=== PATIENT | male | born 1955 | race African-American/Black ===

== ENCOUNTER 2017-08-26 10:33 | Inpatient (IN) | payer MEDICARE, OTHER ==
--- NOTE | 2017-08-26 12:20 | XR ---
EXAMINATION TYPE: XR foot complete LT , 3 VIEWS DATE OF EXAM ORDERED: 08/26/2017 HISTORY: Pain. COMPARISON: None. FINDINGS: No fracture, dislocation or other acute osseous lesion is seen. There is a tiny plantar ca lcaneal spur. There is mild soft tissue swelling over the dorsum of the wrist. There are very mild de generative changes in the left first MTP joint. IMPRESSION: NO ACUTE OSSEOUS LESION.
[2017-08-26] MEDS ORDERED: SODIUM CHLORIDE 0.9% 500 ML IV ONE (12:44)
[2017-08-26 13:26] LABS: Basophils # (A) 0.1 k/uL (0-0.2); Basophils % (A) 1 %; Eosinophils # (A) 1.9 k/uL (0-0.7); Eosinophils % (A) 22 %; HCT 40.6 % (39.0-53.0); HGB 12.7 gm/dL (13.0-17.5); Hypochromasia Slight; Lymphocytes # (A) 1.4 k/uL (1.0-4.8); Lymphocytes % (A) 17 %; MCH 28.1 pg (25.0-35.0); MCHC 31.3 g/dL (31.0-37.0); Mean Platelet Volume 8.5; Monocytes # (A) 0.3 k/uL (0-1.0); Monocytes % (A) 3 %; Neutrophils # (A) 4.6 k/uL (1.3-7.7); Neutrophils % (A) 54 %; Platelet Count 323 k/uL (150-450); RBC 4.51 m/uL (4.30-5.90); WBC 8.5 k/uL (3.8-10.6)
--- NOTE | 2017-08-26 13:26 | ED ---
Lower Extremity Injury HPI - General Chief Complaint: Extremity Injury, Lower Stated Complaint: LEFT FOOT INJURY FROM FALL Time Seen by Provider: 08/26/17 12:10 Source: patient Mode of arrival: ambulatory Limitations: physical limitation - History of Present Illness Initial Comments: 62-year-old male patient presents to the emergency department today for complaints of left foot pain and swelling. Patient states that he tripped on a coffee table approximately a 1-1/2 weeks ago. States he's been having pain mainly in the area of the left great toe. He states that the pain is not improved. He denies any numbness or tingling to the foot. Denies any fever or chills with this. He he denies falling or hitting his head. Denies any other injuries. Patient denies any recent rash, shortness breath, chest pain, abdominal pain, nausea, vomiting, diarrhea, constipation, back pain, numbness, tingling, dizziness, weakness, hematuria, dysuria, urinary urgency, urinary frequency, headache, visual changes, or any other complaints. - Related Data Home Medications Medication Instructions Recorded Confirmed Aspirin 81 mg PO DAILY 03/26/15 03/30/15 Atorvastatin [Lipitor] 10 mg PO HS 03/26/15 03/30/15 Carvedilol 25 mg PO BID 03/26/15 03/30/15 Clopidogrel Bisulfate [Clopidogrel] 75 mg PO DAILY 03/26/15 03/30/15 FLUoxetine HCL [PROzac] 20 mg PO DAILY 03/26/15 03/30/15 Levothyroxine Sodium [Synthroid] 25 mcg PO DAILY 03/26/15 03/30/15 Lisinopril [Zestril] 10 mg PO DAILY 03/26/15 03/30/15 Allergies Allergy/AdvReac Type Severity Reaction Status Date / Time No Known Allergies Allergy Verified 08/26/17 13:05 Review of Systems ROS Statement: Those systems with pertinent positive or pertinent negative responses have been documented in the HPI. ROS Other: All systems not noted in ROS Statement are negative. Past Medical History Past Medical History: COPD, Myocardial Infarction (OR), Thyroid Disorder Last Myocardial Infarction Date:: 09/2011 History of Any Multi-Drug Resistant Organisms: None Reported Past Surgical History: Heart Catheterization With Stent Past Anesthesia/Blood Transfusion Reactions: No Reported Reaction Date of Last Stent Placement:: 09/2011 Past Psychological History: No Psychological Hx Reported Smoking Status: Current every day smoker Past Alcohol Use History: Daily Past Drug Use History: Marijuana - Past Family History Mother Family Medical History: Deep Vein Thrombosis (DVT) General Exam Limitations: physical limitation General appearance: alert, in no apparent distress, other (Social well-developed , well-nourished adult male patient in no acute distress. Vital signs upon presentation were temperature 98.0F, pulse 84, respirations 16, blood pressure 111/71, pulse ox 99% on room air.) Eye exam: Present: normal appearance, PERRL, EOMI. Absent: scleral icterus, conjunctival injection, periorbital swelling ENT exam: Present: normal exam, normal oropharynx, mucous membranes moist Respiratory exam: Present: normal lung sounds bilaterally. Absent: respiratory distress, wheezes, rales, rhonchi, stridor Cardiovascular Exam: Present: tachycardia, irregular rhythm, normal heart sounds. Absent: regular rate, normal rhythm, systolic murmur, diastolic murmur , rubs, gallop, clicks GI/Abdominal exam: Present: soft, normal bowel sounds. Absent: distended, tenderness, guarding, rebound, rigid Extremities exam: Present: full ROM, tenderness (Tenderness over the left great toe), normal capillary refill, other (Swelling over the dorsum of the left foot , there is a wound noted to the dorsal aspect of the left great toe, the area between the toes is moist and appears to be ulcerated as well. There is an odor coming from the wound. There is also dried ulcer to the tip of the left fifth toe.). Absent: normal inspection, pedal edema, joint swelling, calf tenderness Neurological exam: Present: alert, oriented X3, CN II-XII intact Psychiatric exam: Present: normal affect, normal mood Skin exam: Present: warm, dry, intact, normal color. Absent: rash Course Vital Signs 08/26/17 08/26/17 08/26/17 11:18 13:25 14:06 Temperature 98 F 97.0 F L Pulse Rate 84 118 H Pulse Rate [ 140 H Chief Console Operator ] Respiratory 16 16 Rate Blood Pressure 111/71 151/66 O2 Sat by Pulse 99 97 Oximetry 08/26/17 08/26/17 14:48 15:05 Temperature Pulse Rate 144 H 128 H Pulse Rate [ Chief Console Operator ] Respiratory 18 18 Rate Blood Pressure 119/77 107/81 O2 Sat by Pulse 100 98 Oximetry Medical Decision Making - Medical Decision Making 62-year-old male patient presents to the emergency department today for evaluation of left foot injury. Physical examination did reveal some chronic wounds to the left great toe and between the first and second digits on the left foot. On auscultation of the heart did reveal a fast irregular heartbeat. EKG was obtained and did reveal no onset atrial fibrillation with a ventricular rate of 153. Patient denies ever having history of this however states he did have an irregular heartbeat since he was a child. He has not any treatment for this. He'll be admitted to the hospital for further evaluation of the wounds as well as the H or fibrillation. Started on Cardizem and heparin. He will be started on Zosyn and Vanco for the wounds. Accepting physician is Leticia. - Lab Data Result diagrams: 08/26/17 13:12 08/26/17 13:12 Lab Results 08/26/17 08/26/17 08/26/17 Range/Units 13:12 13:12 13:12 WBC 8.5 (3.8-10.6) k/uL RBC 4.51 (4.30-5.90) m/uL Hgb 12.7 L (13.0-17.5) gm/dL Hct 40.6 (39.0-53.0) % MCV 90.0 (80.0-100.0) fL MCH 28.1 (25.0-35.0) pg MCHC 31.3 (31.0-37.0) g/dL RDW 15.0 (11.5-15.5) % Plt Count 323 (150-450) k/uL Neutrophils % 54 % Lymphocytes % 17 % Monocytes % 3 % Eosinophils % 22 % Basophils % 1 % Neutrophils # 4.6 (1.3-7.7) k/uL Lymphocytes # 1.4 (1.0-4.8) k/uL Monocytes # 0.3 (0-1.0) k/uL Eosinophils # 1.9 H (0-0.7) k/uL Basophils # 0.1 (0-0.2) k/uL Manual Slide Review Performed Hypochromasia Slight PT (9.0-12.0) sec INR (<1.2) APTT (22.0-30.0) sec Sodium 142 (137-145) mmol/L Potassium 4.1 (3.5-5.1) mmol/L Chloride 107 (98-107) mmol/L Carbon Dioxide 22 (22-30) mmol/L Anion Gap 13 mmol/L BUN 22 H (9-20) mg/dL Creatinine 1.40 H (0.66-1.25) mg/dL Est GFR (MDRD) Af Amer >60 (>60 ml/min/1.73 sqM) Est GFR (MDRD) Non-Af 52 (>60 ml/min/1.73 sqM) Glucose 82 (74-99) mg/dL Plasma Lactic Acid Jorge (0.7-2.0) mmol/L Calcium 9.8 (8.4-10.2) mg/dL Magnesium 1.8 (1.6-2.3) mg/dL Total Bilirubin 0.3 (0.2-1.3) mg/dL AST 21 (17-59) U/L ALT 24 (21-72) U/L Alkaline Phosphatase 114 (38-126) U/L Total Creatine Kinase 91 (55-170) U/L CK-MB (CK-2) 0.9 (0.0-2.4) ng/mL CK-MB (CK-2) Rel Index 1.0 Troponin I <0.012 (0.000-0.034) ng/mL Total Protein 7.9 (6.3-8.2) g/dL Albumin 3.7 (3.5-5.0) g/dL TSH 3.150 (0.465-4.680) mIU/L 08/26/17 08/26/17 Range/Units 13:12 13:12 WBC (3.8-10.6) k/uL RBC (4.30-5.90) m/uL Hgb (13.0-17.5) gm/dL Hct (39.0-53.0) % MCV (80.0-100.0) fL MCH (25.0-35.0) pg MCHC (31.0-37.0) g/dL RDW (11.5-15.5) % Plt Count (150-450) k/uL Neutrophils % % Lymphocytes % % Monocytes % % Eosinophils % % Basophils % % Neutrophils # (1.3-7.7) k/uL Lymphocytes # (1.0-4.8) k/uL Monocytes # (0-1.0) k/uL Eosinophils # (0-0.7) k/uL Basophils # (0-0.2) k/uL Manual Slide Review Hypochromasia PT 10.3 (9.0-12.0) sec INR 1.1 (<1.2) APTT 25.2 (22.0-30.0) sec Sodium (137-145) mmol/L Potassium (3.5-5.1) mmol/L Chloride (98-107) mmol/L Carbon Dioxide (22-30) mmol/L Anion Gap mmol/L BUN (9-20) mg/dL Creatinine (0.66-1.25) mg/dL Est GFR (MDRD) Af Amer (>60 ml/min/1.73 sqM) Est GFR (MDRD) Non-Af (>60 ml/min/1.73 sqM) Glucose (74-99) mg/dL Plasma Lactic Acid Jorge 0.8 (0.7-2.0) mmol/L Calcium (8.4-10.2) mg/dL Magnesium (1.6-2.3) mg/dL Total Bilirubin (0.2-1.3) mg/dL AST (17-59) U/L ALT (21-72) U/L Alkaline Phosphatase (38-126) U/L Total Creatine Kinase (55-170) U/L CK-MB (CK-2) (0.0-2.4) ng/mL CK-MB (CK-2) Rel Index Troponin I (0.000-0.034) ng/mL Total Protein (6.3-8.2) g/dL Albumin (3.5-5.0) g/dL TSH (0.465-4.680) mIU/L - EKG Data -: EKG Interpreted by Me EKG Comments: EKG obtained at 1221 shows atrial fibrillation with rapid ventricular response, ST and T-wave abnormalities. Ventricular rate is 153, QRS duration 88, QT 256, QTc 408. - Radiology Data Radiology results: report reviewed, image reviewed Two-view x-ray of the chest shows the lungs are clear. Pleural spaces are clear. Heart size is upper limits of normal. Impression by Dr. Castillo shows borderline cardiomegaly. 3 views of the left foot are obtained and show no fracture dislocation or other osseous lesion. There is tiny plantar calcaneal spur. There is mild soft tissue swelling over the dorsum of the foot. There are very mild degenerative changes in the left first MTP joint. Impression by Dr. Castillo shows no acute osseous lesion. Disposition Clinical Impression: New onset a-fib, Open wound of left foot Disposition: ADMITTED IP TO [facility] Condition: Serious Referrals: Elana Mcocrmack MD [Primary Care Provider] - 1-2 days Decision to Admit Reason: Admit from EC Decision Date: 08/26/17 Decision Time: 15:07
[2017-08-26 13:35] LABS: ALT 24 U/L (21-72); AST 21 U/L (17-59); Albumin 3.7 g/dL (3.5-5.0); Alkaline Phosphatase 114 U/L (38-126); Anion Gap 13 mmol/L; Blood Urea Nitrogen 22 mg/dL (9-20); Calcium 9.8 mg/dL (8.4-10.2); Carbon Dioxide 22 mmol/L (22-30); Chloride 107 mmol/L (98-107); Glucose 82 mg/dL (74-99); INR 1.1 (<1.2); Magnesium 1.8 mg/dL (1.6-2.3); Partial Thromboplastin Time 25.2 sec (22.0-30.0); Potassium 4.1 mmol/L (3.5-5.1); Prothrombin Time 10.3 sec (9.0-12.0); Sodium 142 mmol/L (137-145); Total Bilirubin 0.3 mg/dL (0.2-1.3); Total Protein 7.9 g/dL (6.3-8.2)
[2017-08-26 13:48] LABS: Creatine Kinase 91 U/L (55-170)
--- NOTE | 2017-08-26 13:56 | XR ---
EXAMINATION TYPE: XR chest 2V DATE OF EXAM: 08/26/2017 HISTORY: Palpitations. REFERENCE: None. FINDINGS: The lungs are clear. Pleural space are clear. Heart size is upper limits of normal. IMPRESSION: BORDERLINE CARDIOMEGALY.
[2017-08-26] MEDS ORDERED: DILTIAZEM 125 MG in SODIUM CHLORIDE 0.9% 100 ML IV ONE (13:57)
[2017-08-26 14:01] LABS: Creatine Kinase MB 0.9 ng/mL (0.0-2.4); Troponin I <0.012 ng/mL (0.000-0.034)
[2017-08-26] MEDS ORDERED: HEPARIN SODIUM,PORCINE 5,000 UNIT/ML 1 ML VIAL IV PRN (14:19)
[2017-08-26] MEDS ORDERED: HEPARIN SODIUM,PORCINE 5,000 UNIT/ML 1 ML VIAL IV ONE (14:19)
[2017-08-26] MEDS ORDERED: NALOXONE 0.4 MG/ML 1 ML VIAL IV PRN (14:22)
[2017-08-26] MEDS ORDERED: DILTIAZEM 5 MG/ML 5 ML VIAL IVP STA ×2 (14:22→15:01)
[2017-08-26] MEDS: HYDROcodone/APAP 5-325MG 1 EACH TAB PO PRN (14:45)
[2017-08-26] MEDS: SODIUM CHLORIDE 0.9% 500 ML IV SCH (14:47)
[2017-08-26] MEDS: HEPARIN SOD,PORK IN 0.45% NACL 25,000 UNIT in 0.45% NACL 1 500ML.BAG IV SCH (15:01)
[2017-08-26] MEDS ORDERED: VANCOMYCIN IV PER PHARMACY 1 EACH MISC MISCELLANE PRN (15:04)
[2017-08-26] MEDS ORDERED: VANCOMYCIN 1,500 MG in SODIUM CHLORIDE 0.9% 250 ML IVPB STA (15:15)
[2017-08-26 18:30] VITALS: BMI 25.1
[2017-08-26] MEDS ORDERED: ACETAMINOPHEN TAB 325 MG TAB PO PRN (19:06)
[2017-08-27] MEDS ORDERED: TEMAZEPAM 15 MG CAP PO PRN (00:04)
[2017-08-27] MEDS ORDERED: HYDROmorphone 0.5 MG/0.5 ML SYRINGE IVP PRN (00:04)
[2017-08-27] MEDS ORDERED: LORazepam 1 MG TAB PO PRN (00:04)
[2017-08-27 03:14] LABS: HCT 37.6 % (39.0-53.0); HGB 11.7 gm/dL (13.0-17.5); Hypochromasia Slight; MCH 28.7 pg (25.0-35.0); MCHC 31.2 g/dL (31.0-37.0); MCV 91.7 fL (80.0-100.0); Mean Platelet Volume 7.7; Platelet Count 302 k/uL (150-450); RDW 14.1 % (11.5-15.5); WBC 8.3 k/uL (3.8-10.6)
[2017-08-27 04:07] LABS: Eosinophils # (M) 2.66 k/uL (0-0.7); Lymphocytes # (M) 1.74 k/uL (1.0-4.8); Neutrophils % (M) 41 %; Nucleated Red Blood Cells 0 /100 WBC (0-0); Total Cells Counted 100
[2017-08-27 04:08] LABS: Large Platelets Present
[2017-08-27] MEDS: PANTOPRAZOLE 40 MG TABLET PO SCH (06:16)
[2017-08-27] MEDS: HYDROcodone/APAP 5-325MG 1 EACH TAB PO PRN ×2 (06:20→20:19)
[2017-08-27] MEDS: NICOTINE 14MG/24HR PATCH TRANSDERM SCH (08:07)
--- NOTE | 2017-08-27 09:11 | HP ---
HISTORY AND PHYSICAL DATE OF SERVICE: 08/26/2017 CHIEF COMPLAINTS: Left foot pain injury and atrial fibrillation. HISTORY OF PRESENT ILLNESS: This 62-year-old gentleman with a past history of multiple medical problems including history of COPD, hypertensive, CAD, stent being followed by Dr. Elana Mccormack in the outpatient setting, apparently had a injury on the left foot while slamming into a coffee table 2 weeks ago. Because of increasing pain, the patient came to [facility] and admitted for further evaluation and treatment. The patient was also noted to have atrial fibrillation, fast ventricular rate. Cardizem was initiated. The heart rate is varying anywhere between 110 to 170. There is no history of fever, rigors. No chest pain, palpitations, hematochezia or melena. PAST MEDICAL: History microinfarction, COPD, hypothyroidism, CAD, stent. MEDICATIONS: 1. Zestril 10 mg daily. 2. Synthroid 25 mg p.o. daily. 3. Prozac 20 mg daily. 4. Plavix 75 mg daily. 5. Coreg 25 mg b.i.d. 6. Lipitor 10 mg. 7. Aspirin 81 mg daily. ALLERGIES: None. FAMILY HISTORY: History of DVT in the family. SOCIAL HISTORY: History of smoking on a daily basis. History of alcohol intake. REVIEW OF SYSTEMS: ENT: No diminished hearing or vision. CARDIOVASCULAR: As mentioned earlier. RESPIRATORY: As mentioned earlier. GI: No nausea. : No dysuria. NERVOUS SYSTEM: No numbness, weakness. ALLERGY/IMMUNOLOGY: No asthma or hayfever. MUSCULOSKELETAL: As mentioned earlier. HEMATOLOGY: No history of anemia. ENDOCRINE: No history of diabetes or hypothyroidism. CONSTITUTIONAL: As mentioned earlier. DERMATOLOGY: Negative. RHEUMATOLOGY: Negative. PSYCHIATRY: As mentioned earlier. PHYSICAL EXAMINATION: Alert and oriented x3. Pulse 130 irregular, blood pressure 135/77, respiration 18, temperature 97 degrees, pulse ox 99% on room air HEENT: Normal. NECK: No jugular venous distention. CARDIOVASCULAR: S1, S2. RESPIRATORY: Breath sounds diminished in the bases. A few rhonchi, no crackles. ABDOMEN: Soft, nontender. No mass palpable. LEGS: Significant pain and swelling and tenderness and dark discoloration on the left foot present. Pulses diminished bilaterally. NERVOUS SYSTEM: Higher functions as mentioned earlier, moves all 4 limbs, no focal motor. LYMPHATICS: No lymphadenopathy in the neck, axillae or groin. SKIN: No ulcer, rash or bleeding. LABS: WBC 8.2, hemoglobin 12.7, and creatinine is 1.40. ASSESSMENT: 1. Atrial fibrillation with fast ventricular rate new onset. 2. Left foot cellulitis and contusion with severe pain. 3. Increased skin with chronic kidney disease stage 3. 4. History of chronic obstructive pulmonary disease. 5. History of coronary artery disease, stent. 6. History of myocardial infarction. 7. Hypothyroidism. 8. History of continued ongoing nicotine dependence. 9. History of EtOH. RECOMMENDATIONS AND DISCUSSION: This 62-year-old gentleman who presented with multiple complex medical issues, we will monitor the patient closely. Continue the current management and symptomatic treatment. Otherwise we will resume the home medications. Cardizem drip and antibiotics. Consult Dr. Addison. Continue to monitor. DVT prophylaxis. Prognosis guarded because of multiple complex medical issues. further recommendations to follow. MMODL / IJN: [id number] /
[2017-08-27] MEDS: METOPROLOL TARTRATE 25 MG TAB PO SCH ×3 (11:21→20:13)
[2017-08-27] MEDS: VANCOMYCIN 1,500 MG in SODIUM CHLORIDE 0.9% 250 ML IVPB SCH ×2 (11:21→23:18)
--- NOTE | 2017-08-27 13:22 | P.CRDCN ---
History of Present Illness History of present illness: Patient presenting with foot injury. He has no chest discomfort no dizziness lightheadedness or palpitations. He states he has been dealing with palpitations for decades now. No cardiac symptoms. Follows with a set decorator states he is not taking any medications Review of systems: No fever chills or rigors, no cough, phlegm or expectoration , no nausea, vomiting or diarrhea, no hematuria, dysuria, no musculoskeletal complaints, no strokes or seizures, no skin lesions. His past history is unclear to me but he states he's had palpitations for many many years. I don't have his office records at this time On examination his heart rates are rapid. He is sitting comfortably at the edge of the bed and has absolutely no symptoms Heart rate between 110-130 beats a minute on IV Cardizem, afebrile 90F Blood pressure 105/62 mmHg and 97/56. His mercury Heart sounds are tachycardic no murmurs Abdomen soft nontender No JVD no thyromegaly No lower extremity edema Twelve-lead ECG shows atrial fibrillation with RVR Reviewed hemoglobin 12.7 at lites normal BUN 22 creatinine 1.4 GFR 52 first troponin normal TSH normal Impression Atrial fibrillation with RVR. This is not a new onset. He has a primary care physician Dr. Martino and he also sees a set decorator. I'm not certain of the level of compliance here. He says he is not taking anything for atrial fibrillation Suggest Office records Anticoagulation for stroke prevention Rate control of atrial fibrillation 2-D echo and Doppler study to assess cardiac structure and function Start oral medications for rate control Past Medical History Past Medical History: COPD, Myocardial Infarction (MD), Thyroid Disorder Last Myocardial Infarction Date:: 09/2011 History of Any Multi-Drug Resistant Organisms: None Reported Past Surgical History: Heart Catheterization With Stent Past Anesthesia/Blood Transfusion Reactions: No Reported Reaction Date of Last Stent Placement:: 09/2011 Past Psychological History: No Psychological Hx Reported Smoking Status: Current every day smoker Past Alcohol Use History: Daily Past Drug Use History: Marijuana - Past Family History Mother Family Medical History: Deep Vein Thrombosis (DVT) Medications and Allergies Home Medications Medication Instructions Recorded Confirmed Type Aspirin 81 mg PO DAILY 03/26/15 03/30/15 History Atorvastatin [Lipitor] 10 mg PO HS 03/26/15 03/30/15 History Carvedilol 25 mg PO BID 03/26/15 03/30/15 History Clopidogrel Bisulfate [Clopidogrel] 75 mg PO DAILY 03/26/15 03/30/15 History FLUoxetine HCL [PROzac] 20 mg PO DAILY 03/26/15 03/30/15 History Levothyroxine Sodium [Synthroid] 25 mcg PO DAILY 03/26/15 03/30/15 History Lisinopril [Zestril] 10 mg PO DAILY 03/26/15 03/30/15 History Allergies Allergy/AdvReac Type Severity Reaction Status Date / Time No Known Allergies Allergy Verified 08/26/17 13:05 Physical Exam Vitals: Vital Signs Temp Pulse Pulse Pulse Resp BP BP 08/27/17 08:00 98.0 F 118 H 16 105/62 08/27/17 03:58 98 F 115 H 16 08/27/17 00:00 98.5 F 125 H 16 08/26/17 20:00 98.5 F 70 16 08/26/17 15:37 124 H 16 110/68 08/26/17 15:28 97.0 F L 130 H 18 133/75 08/26/17 15:05 128 H 18 107/81 08/26/17 14:48 144 H 18 119/77 08/26/17 14:06 140 H 08/26/17 13:25 97.0 F L 118 H 16 151/66 08/26/17 11:18 98 F 84 16 111/71 BP Pulse Ox 08/27/17 08:00 98 08/27/17 03:58 97/56 100 08/27/17 00:00 109/71 99 08/26/17 20:00 111/70 98 08/26/17 15:37 98 08/26/17 15:28 99 08/26/17 15:05 98 08/26/17 14:48 100 08/26/17 14:06 08/26/17 13:25 97 08/26/17 11:18 99 Intake and Output 08/26/17 08/27/17 08/27/17 22:59 06:59 14:59 Intake Total 132.558 235.103 Output Total 275 Balance 132.558 -39.897 Intake: IV 80 Sodium Chloride 0.9% 500 80 ml @ 20 mls/hr IV .Q24H [facility] Rx#:[id number] Intake, IV Titration 132.558 155.103 Amount Diltiazem 125 mg In 3.917 Sodium Chloride 0.9% 100 ml @ 5 MG/HR 5 mls/hr IV .Q24H [facility] Rx#:[id number] Heparin Sod,Pork in 0.45% 128.641 155.103 NaCl 25,000 unit In 0.45 % NaCl 1 500ml.bag @ 12 UNITS/KG/HR 19.59 mls/hr IV .Q24H [facility] Rx#: [id number] Output: Urine 275 Other: Weight 81.647 kg Results 08/27/17 02:56 08/26/17 13:12 Cardiac Enzymes 08/26/17 08/26/17 Range/Units 13:12 13:12 AST 21 (17-59) U/L CK-MB (CK-2) 0.9 (0.0-2.4) ng/mL Troponin I <0.012 (0.000-0.034) ng/mL Coagulation 08/26/17 08/26/17 08/27/17 Range/Units 13:12 20:23 02:56 PT 10.3 (9.0-12.0) sec APTT 25.2 40.8 H 77.2 H (22.0-30.0) sec CBC 08/26/17 08/27/17 Range/Units 13:12 02:56 WBC 8.5 8.3 (3.8-10.6) k/uL RBC 4.51 4.10 L (4.30-5.90) m/uL Hgb 12.7 L 11.7 L (13.0-17.5) gm/dL Hct 40.6 37.6 L (39.0-53.0) % Plt Count 323 302 (150-450) k/uL Comprehensive Metabolic Panel 08/26/17 Range/Units 13:12 Sodium 142 (137-145) mmol/L Potassium 4.1 (3.5-5.1) mmol/L Chloride 107 (98-107) mmol/L Carbon Dioxide 22 (22-30) mmol/L BUN 22 H (9-20) mg/dL Creatinine 1.40 H (0.66-1.25) mg/dL Glucose 82 (74-99) mg/dL Calcium 9.8 (8.4-10.2) mg/dL AST 21 (17-59) U/L ALT 24 (21-72) U/L Alkaline Phosphatase 114 (38-126) U/L Total Protein 7.9 (6.3-8.2) g/dL Albumin 3.7 (3.5-5.0) g/dL Current Medications Generic Name Dose Route Start Last Admin Trade Name Freq PRN Reason Stop Dose Admin Acetaminophen 650 mg 08/26/17 19:06 08/26/17 21:07 Tylenol Tab PO 650 mg Q4HR PRN Administration Fever and/ or Pain Hydrocodone Bitart/Acetaminophen 1 each 08/26/17 14:27 08/27/17 06:20 [place] 5-325 PO 1 each Q6HR PRN Administration Pain Heparin Sodium (Porcine) 0 unit 08/26/17 14:19 08/26/17 21:46 Heparin IV 4,000 unit PER PROTOCOL PRN Administration Low PTT Protocol Hydromorphone HCl 0.5 mg 08/27/17 00:04 08/27/17 03:15 Dilaudid IVP 0.5 mg Q6HR PRN Administration Severe Pain Diltiazem HCl 125 mg/ Sodium 125 mls @ 5 mls/hr 08/26/17 13:57 08/26/17 15:36 Chloride IV 08/27/17 13:56 10 mg/hr .Q24H [facility] 10 mls/hr 5 MG/HR Infusion Heparin Sodium/Sodium Chloride 500 mls @ 19.59 mls/hr 08/26/17 14:30 03:55 25,000 unit/ Sodium Chloride IV 13 units/kg/hr .Q24H AJ 21.22 mls/hr Protocol Titration 12 UNITS/KG/HR Sodium Chloride 500 mls @ 20 mls/hr 08/26/17 14:30 08/26/17 14:47 Saline 0.9% IV 20 mls/hr .Q24H AJ Administration Vancomycin HCl 1,500 mg/ 250 mls @ 125 mls/hr 08/27/17 08:00 Sodium Chloride IVPB Q16H AJ Lorazepam 0.5 mg 08/27/17 00:04 Ativan PO Q8HR PRN Anxiety Metoprolol Tartrate 25 mg 08/27/17 09:00 Lopressor PO TID AJ Naloxone HCl 0.2 mg 08/26/17 14:22 Narcan IV Q2M PRN Opioid Reversal Nicotine 1 patch 08/27/17 09:00 08/27/17 08:07 Habitrol 14mg/24hr Patch TRANSDERM Not Given DAILY [facility] Pantoprazole Sodium 40 mg 08/27/17 07:30 08/27/17 06:16 Protonix PO Not Given AC-BRKFST [facility] Temazepam 15 mg 08/27/17 00:04 Restoril PO HS PRN Insomnia Intake and Output 08/26/17 08/27/17 08/27/17 22:59 06:59 14:59 Intake Total 132.558 235.103 Output Total 275 Balance 132.558 -39.897 Intake: IV 80 Sodium Chloride 0.9% 500 80 ml @ 20 mls/hr IV .Q24H [facility] Rx#:[id number] Intake, IV Titration 132.558 155.103 Amount Diltiazem 125 mg In 3.917 Sodium Chloride 0.9% 100 ml @ 5 MG/HR 5 mls/hr IV .Q24H [facility] Rx#:[id number] Heparin Sod,Pork in 0.45% 128.641 155.103 NaCl 25,000 unit In 0.45 % NaCl 1 500ml.bag @ 12 UNITS/KG/HR 19.59 mls/hr IV .Q24H [facility] Rx#: [id number] Output: Urine 275 Other: Weight 81.647 kg 08/27/17 02:56 08/26/17 13:12
--- NOTE | 2017-08-27 14:02 | CONS ---
DATE OF CONSULTATION: 08/27/2017 62-year-old, male, who came to the emergency room yesterday with history of pain and discomfort in left foot big toe. The patient had a history of trauma to the left foot big toe which happened at home. This happened about 2 weeks ago. No fever or chills. The patient has no history of diabetes. The patient has a history of hypertension, well controlled with medication. The patient has new diagnosis with atrial fib. On examination, the patient was seen in his room. He has been complaining of pain in his left foot big toe. Chest is clinically clear on auscultation. Abdomen is soft. Femorals are palpable. PT DP by Doppler. Patient has a left foot big toe, there is injury and small opening noted at the base of the nail bed on the dorsal aspect of the left big toe. Some of foul odor has been noted. Culture has been taken. PLAN: Patient is on IV antibiotic. We wait for the culture and sensitivity. We will use Medihoney gel to the wound and follow with you. We changed the dressing on a daily basis. MMODL / IJN: [id number] / SABINE
[2017-08-27] MEDS: HEPARIN SOD,PORK IN 0.45% NACL 25,000 UNIT in 0.45% NACL 1 500ML.BAG IV SCH (18:16)
[2017-08-27] MEDS: SODIUM CHLORIDE 0.9% 500 ML IV SCH (18:32)
--- NOTE | 2017-08-27 20:05 | PN ---
PROGRESS NOTE DATE OF SERVICE: 08/27/2017. INTERVAL HISTORY: This 62-year-old gentleman who was admitted with atrial fibrillation, also had left foot cellulitis and some contusion also. No chest pain. No palpitations. Patient had eosinophilia. Cardiology and vascular are following the patient closely. EXAM: Alert and oriented x3. Pulse is 58, blood pressure 120/77, respiration 16, temperature 99.1, pulse ox 98% on room air. HEENT: Conjunctivae normal. Neck: No jugular venous distention. Cardiovascular : S1, S2 muffled. Respirations: Breath sounds diminished in the bases. No rhonchi. No crackles. Abdomen is soft, nontender. Legs: Left foot tenderness and Nervous system: No focal deficits. LAB STUDIES: WBC 8.2, hemoglobin 11.7. ASSESSMENT: 1. Atrial fibrillation with fast ventricular rate new onset. 2. Left foot cellulitis and contusion with severe pain. 3. Increased creatinine with chronic kidney disease stage 3. 4. History of chronic obstructive pulmonary disease. 5. History of coronary artery disease, stent. 6. Eosinophilia. 7. History of myocardial infarction. 8. History of hypothyroidism. 9. History of continued ongoing nicotine dependence. 10.History of ETOH. DISCUSSION AND RECOMMENDATIONS: Recommend to continue current medications, continue symptomatic treatment, management and repeat labs. Otherwise recommend wound cultures. Follow closely. 2D echo has been ordered. Guarded prognosis because of multiple complex medical issues. Further recommendations to follow. MMODL / IJN: [id number] / MTDD
[2017-08-28] MEDS: HYDROcodone/APAP 5-325MG 1 EACH TAB PO PRN ×4 (04:48→21:26)
[2017-08-28 06:39] LABS: Basophils # (A) 0.1 k/uL (0-0.2); Basophils % (A) 1 %; Eosinophils # (A) 1.3 k/uL (0-0.7); Eosinophils % (A) 16 %; HCT 35.2 % (39.0-53.0); HGB 10.7 gm/dL (13.0-17.5); Hypochromasia Slight; Lymphocytes # (A) 1.4 k/uL (1.0-4.8); Lymphocytes % (A) 18 %; MCH 28.2 pg (25.0-35.0); MCHC 30.4 g/dL (31.0-37.0); MCV 92.7 fL (80.0-100.0); Mean Platelet Volume 7.7; Monocytes # (A) 0.2 k/uL (0-1.0); Monocytes % (A) 2 %; Neutrophils % (A) 61 %; Platelet Count 305 k/uL (150-450); RBC 3.79 m/uL (4.30-5.90); RDW 13.9 % (11.5-15.5); WBC 8.2 k/uL (3.8-10.6)
[2017-08-28] MEDS: PANTOPRAZOLE 40 MG TABLET PO SCH (06:44)
[2017-08-28 06:52] LABS: Anion Gap 10 mmol/L; Blood Urea Nitrogen 17 mg/dL (9-20); Calcium 9.1 mg/dL (8.4-10.2); Carbon Dioxide 18 mmol/L (22-30); Chloride 109 mmol/L (98-107); Glucose 116 mg/dL (74-99); Sodium 137 mmol/L (137-145)
--- NOTE | 2017-08-28 08:06 | CONS ---
CONSULTATION DATE OF SERVICE: 08/27/2017 REASON FOR CONSULTATION: Left big toe wound and cellulitis. HISTORY OF PRESENT ILLNESS: The patient is a 62-year-old male presenting to the ER at [facility] on August 26, 2017 with chief complaints of left big toe pain and swelling that had been going on for almost 2 weeks. Apparently the patient did injure his left foot when he slipped and hit the end of the table with it with some superficial ulceration at that time. The patient had been treating himself at home. However, the area becoming more painful. Pain described to be throbbing almost 8 out of 10, and no radiation. He did have slight drainage from it. The patient denies any high- grade fever or chills. With these symptoms, the patient was evaluated by the ER physician. The patient did have an x-ray that was negative for any bony changes. He did have wound culture obtained. He was started on vancomycin. The patient with no fever and no elevated white count and ID was consulted for further recommendation regarding antibiotic therapy. REVIEW OF SYSTEMS: CONSTITUTIONAL: Positive for weakness and no high-grade fever. EYES: No complaint. ENT: No complaint. RESPIRATORY: No complaint. CARDIOVASCULAR: No complaint. GENITOURINARY: No complaint. GASTROINTESTINAL: No complaint. MUSCULOSKELETAL: As per HPI. INTEGUMENTARY: As per HPI. PSYCHOLOGICAL: No complaint. ENDOCRINE: No complaint. NEUROLOGICAL: No complaint. PAST MEDICAL HISTORY: Significant for COPD, coronary artery disease, OR, hypothyroidism. PAST SURGICAL HISTORY: PTCA with stent placement. SOCIAL HISTORY: The patient is currently an every day smoker for more than 40 pack year smoking. Do admit to drinking daily and marijuana use. FAMILY HISTORY: Mother with history of DVT. ALLERGIES: No known drug allergies. MEDICATIONS: The patient is currently on Tylenol, Carlton, heparin, Dilaudid, Ativan, Lopressor , Narcan, nicotine patch, Protonix, Restoril and vancomycin. PHYSICAL EXAMINATION: On examination, blood pressure is 120/73 with a pulse of 58, temperature of 99.1. He is 98% on room air. General description is a middle-aged male lying in bed in no distress. No tachypnea or accessory muscle of respiration use. HEENT EXAMINATION: No pallor or scleral icterus. Oral mucous membrane is moist. No pharyngeal erythema or thrush. NECK: Trachea is central. No thyromegaly. LUNGS: Unlabored breathing, clear to auscultation anteriorly. No wheeze or crackle. HEART: S1, S2, regular rate and rhythm. No added sounds. ABDOMEN: Soft, no tenderness. No guarding or rigidity. No organomegaly EXTREMITIES: No edema of feet. Examination of left big toe is currently dressed. After removing the dressing, slight foul-smelling drainage was noticed. Also very hard to appreciate any erythema as the patient is dark skin color. A very small open wound area, it seemed to be very tender to touch. NEUROLOGICAL: Patient is awake, alert, oriented x3. Mood and affect normal. LABS: Hemoglobin is 11.7, white count 8.3. BUN of 22, creatinine 1.40. Blood culture so far negative. Wound culture currently pending. DIAGNOSTIC IMPRESSION AND PLAN: Patient admitted to the hospital with left big toe pain and swelling started as a trauma while he hit the side of the table accidentally now with superficial wound, some foul-smelling drainage, more likely infection from gram-positive skin camelia. X- rays were negative for any bony changes. So far, cultures are pending. PLAN: 1. We will keep the patient on vancomycin pharmacy to dose watching his kidney function closely while waiting for the culture to finalize. 2. Depending upon his clinical response as well as culture to determine his discharge antibiotics. Thank you for this consultation. Will follow this patient along with you. MMODL / IJN: [id number] / MTDD
[2017-08-28] MEDS: NICOTINE 14MG/24HR PATCH TRANSDERM SCH (08:31)
[2017-08-28] MEDS: METOPROLOL TARTRATE 25 MG TAB PO SCH ×3 (08:32→21:26)
--- NOTE | 2017-08-28 10:46 | ECHOF ---
Referral Reason:afib MEASUREMENTS -------- HEIGHT: 182.9 cm WEIGHT: 75.3 kg BP: 124/69 IVSd: 1.2 cm (0.6 - 1.1) LVIDd: 4.6 cm (3.9 - 5.3) LVPWd: 1.2 cm (0.6 - 1.1) IVSs: 1.6 cm LVIDs: 2.6 cm LVPWs: 1.8 cm Ao Diam: 2.7 cm (2.0 - 3.7) AV Cusp: 1.6 cm (1.5 - 2.6) LA Diam: 4.2 cm (2.7 - 3.8) MV EXCURSION: 15.965 mm (> 18.000) MV EF SLOPE: 63 mm/s (70 - 150) EPSS: 0.6 cm AV maxP.87 mmHg AV meanP.23 mmHg AR PHT: 597 ms RAP: 5.00 mmHg RVSP: 19.58 mmHg FINDINGS -------- Atrial fibrillation. This was a technically adequate study. The left ventricular size is normal. There is mild concentric left ventricular hypertrophy. Overa ll left ventricular systolic function is normal with, an EF between 55 - 60 %. The right ventricle is normal in size and function. The left atrium is mildly dilated. The right atrium is normal in size. Aortic valve is trileaflet and is mildly thickened. There is moderate aortic regurgitation. There is mild aortic stenosis present. Peak/mean gradient across the Aortic Valve is 12.87mmHg / 7.23mmH g. The mitral valve leaflets are mildly thickened. Moderate mitral regurgitation is present. Mild tricuspid regurgitation present. The right ventricular systolic pressure, as measured by Doppl er, is 19.58mmHg. Pulmonic valve appears structurally normal. The aortic root size is normal. The pericardium is normal. CONCLUSIONS -------- 1. Atrial fibrillation. 2. This was a technically adequate study. 3. The left ventricular size is normal. 4. There is mild concentric left ventricular hypertrophy. 5. Overall left ventricular systolic function is normal with, an EF between 55 - 60 %. 6. The right ventricle is normal in size and function. 7. The left atrium is mildly dilated. 8. The right atrium is normal in size. 9. Aortic valve is trileaflet and is mildly thickened. 10. There is moderate aortic regurgitation. 11. There is mild aortic stenosis present. 12. Peak/mean gradient across the Aortic Valve is 12.87mmHg / 7.23mmHg. 13. The mitral valve leaflets are mildly thickened. 14. Moderate mitral regurgitation is present. 15. Mild tricuspid regurgitation present. 16. The right ventricular systolic pressure, as measured by Doppler, is 19.58mmHg. 17. Pulmonic valve appears structurally normal. 18. The aortic root size is normal. 19. The pericardium is normal. LADLE REPAIRER: Kelsey Whitten RDCS
[2017-08-28] MEDS: VANCOMYCIN 1,500 MG in SODIUM CHLORIDE 0.9% 250 ML IVPB SCH (15:10)
[2017-08-28] MEDS: APIXABAN 5 MG TAB PO SCH (15:10)
--- NOTE | 2017-08-28 15:19 | P.PN ---
Subjective Progress Note Date: 08/28/17 Is a 62-year-old -[place] gentleman with known history of COPD, hypothyroidism, coronary artery disease with prior PCI, who presented to the hospital with a foot injury, he denied any chest discomfort, no dizziness lightheadedness or palpitations. He was seen in consultation by Dr. Rodriguez over the weekend. Patient states she's had issues with palpitations over the years, was not on any anticoagulation as an outpatient. He was found here to be in atrial fibrillation, initially was on IV Cardizem drip, currently on oral beta skylar. Heart rate today in the 70s to 80s. Echocardiogram with Doppler study was performed which revealed an ejection fraction of 55-60% with moderate mitral and tricuspid regurg. Patient was seen and examined this morning, feels well overall, quite eager to be discharged, still receiving vancomycin IV. We will discontinue the IV heparin and start the patient on Eliquis 5 mg one tablet by mouth twice a day. Patient is currently in normal sinus rhythm. Objective - Vital Signs Vital signs: Vital Signs Temp 96.9 F L 08/28/17 12:00 Pulse 60 08/28/17 12:00 Resp 16 08/28/17 12:00 BP 145/68 08/28/17 12:00 Pulse Ox 99 08/28/17 12:00 Intake & Output 08/27/17 08/28/17 08/28/17 18:59 06:59 18:59 Intake Total 134.612 1325.4 Output Total 400 750 Balance 226.256 -750 2080.4 Weight 81.647 kg 75.6 kg Intake: IV 160 Sodium Chloride 0.9% 500 160 ml @ 20 mls/hr IV .Q24H [facility] Rx#:[id number] Intake, IV Titration 216.256 424.4 Amount Heparin Sod,Pork in 0.45% 216.256 424.4 NaCl 25,000 unit In 0.45 % NaCl 1 500ml.bag @ 12 UNITS/KG/HR 19.59 mls/hr IV .Q24H [facility] Rx#: [id number] Oral 410 1496 Output: Urine 400 750 Other: # Voids 1 2 - Exam PHYSICAL EXAMINATION: HEENT: Head is atraumatic, normocephalic. Pupils equal, round. Neck is supple. There is no elevated jugular venous pressure. HEART EXAMINATION: Heart S1, S2 normal. No murmur or gallop heard. CHEST EXAMINATION: Lungs are clear to auscultation and precussion. No chest wall tenderness is noted on palpation or with deep breathing. ABDOMEN: Soft, nontender. Bowel sounds are heard. No organomegaly noted. EXTREMITIES: 1+ peripheral pulses with no evidence of peripheral edema and no calf tenderness noted. Dressing in place over her left great toe NEUROLOGIC patient is awake, alert and oriented -3. . - Labs CBC & Chem 7: 08/28/17 06:22 08/28/17 06:22 Labs: Abnormal Lab Results - Last 24 Hours (Table) 08/28/17 08/28/17 08/28/17 Range/Units 06:22 06:22 06:22 RBC 3.79 L (4.30-5.90) m/uL Hgb 10.7 L (13.0-17.5) gm/dL Hct 35.2 L (39.0-53.0) % MCHC 30.4 L (31.0-37.0) g/dL Eosinophils # 1.3 H (0-0.7) k/uL APTT 36.1 H (22.0-30.0) sec Chloride 109 H (98-107) mmol/L Carbon Dioxide 18 L (22-30) mmol/L Creatinine 1.40 H (0.66-1.25) mg/dL Glucose 116 H (74-99) mg/dL Microbiology - Last 24 Hours (Table) 08/26/17 22:30 Gram Stain - Preliminary Toe - Left First Wound Culture - Preliminary 08/26/17 14:30 Blood Culture - Preliminary Blood No Growth after 24 hours 08/26/17 22:30 Anaerobic Culture - Preliminary Toe - Left First Assessment and Plan Plan: Assessment and plan #1 atrial fibrillation, paroxysmal in nature. #2 left foot cellulitis #3 COPD #4 coronary artery disease with prior PCI #5 hypothyroidism #6 hyperlipidemia #7 nicotine dependence Plan Echocardiogram with Doppler study which was performed at revealed a normal left ventricular systolic function with moderate MR and moderate TR. We will discontinue the IV heparin and start the patient on Eliquis 5 mg one tablet by mouth twice a day. Continue current dose of beta skylar. From Cardiologys perspective, we'll follow this patient with you now on an as-needed basis only, please don't hesitate to call with any questions. A follow-up appointment will be made with his audit reviewer post discharge. DNP note has been reviewed, I agree with a documented findings and plan of care. Patient was seen and examined.
--- NOTE | 2017-08-28 17:38 | PN ---
PROGRESS NOTE This is a 62-year-old, male, he has a trauma to the left foot big toe about 2 weeks ago. This involved the nail of the right and the small opening and also there is some swelling of the dorsal aspect of the left foot. The patient is on IV antibiotic and having vancomycin. We have used Medihoney gel to the wound with compression dressing and recommend to continue with IV antibiotic and local wound care and leg elevation. The patient is under care of Infectious Disease. If the patient goes home, we will follow in the Wound Clinic. At this point, no surgical intervention needed. We will treat with IV antibiotics. MMODL / IJN: [id number] /
--- NOTE | 2017-08-28 18:09 | PN ---
PROGRESS NOTE DATE OF SERVICE: 08/28/2017 This 62-year-old gentleman admitted with new onset atrial ablation, also had a contusion of the left foot also. No chest pain. No palpitations. No fever. Heart rate is fluctuating at this time. A 2D echo with Doppler was done today by Cardiology, which showed ejection fraction about 55-60%, mild valvular abnormalities, mild to moderate valvular abnormalities. No chest pain. No palpitations. No fever. EXAM: Alert and oriented x2. Pulse is 60, blood pressure is 145/60, respiration 14, temperature 96.9, pulse ox 98% on room air. HEENT: Conjunctivae normal. Neck: No jugular venous distention. Cardiovascular: S1, S2 muffled. Respiratory: Breath sounds diminished in the bases. A few rhonchi. No crackles. Abdomen is soft, nontender. Legs: Left leg contusion and discoloration present. LABS: WBC 8.2, hemoglobin 10.7. Eosinophilia present. Sodium 137. ASSESSMENT: 1. Atrial fibrillation with fast ventricular rate new onset. 2. Left foot cellulitis and contusion with severe pain. 3. Increased creatinine with chronic kidney stage 3. 4. History of chronic obstructive pulmonary disease. 5. Eosinophilia, etiology undetermined. 6. History of coronary artery disease stent. 7. History of myocardial infarction. 8. History of hypothyroidism. 9. History of continued ongoing nicotine dependence. 10.History of ETOH. RECOMMENDATIONS AND DISCUSSION: Continue current medications, symptomatic treatment. Otherwise closely monitor. Follow with Cardiology and multiple consultants. Guarded prognosis. Further recommendations to follow. MMODL / IJN: [id number] /
[2017-08-28] MEDS: SODIUM CHLORIDE 0.9% 500 ML IV SCH (18:17)
--- NOTE | 2017-08-28 22:06 | P.CONS ---
History of Present Illness - Reason for Consult Consult date: 08/28/17 eosinophilia - History of Present Illness the patient is a 62-year-old -[place] male,who had presented to the emergency because of injury to his left big toe. He had about it at home, about 2 weeks ago accidentally. He had noted swelling, throbbing pain, as well as development of an ulcer near the nail bed with some drainage that is foul smelling. He was admitted to the hospital, and started on antibiotics with cultures pending. He was also evaluated by vascular surgery, because of prior history of cardiovascular disease. Local wound care was recommended. On admission his CBC showed elevated he was normal percentage, with increased eosinophil count, up to 1.9. Total white count is normal. The patient denied any prior history of blood problems. He does not have any history of any allergic conditions. He also denied any history of wheezing/asthmatic-type symptoms, or other allergic symptoms suggestive skin rash. Consult was placed for further evaluation and recommendations. Review of Systems Constitutional: Denies chills, Denies fever Eyes: denies blurred vision, denies pain Ears: deny: decreased hearing, ear discharge, earache, tinnitus Ears, nose, mouth and throat: Denies headache, Denies sore throat Cardiovascular: Reports as per HPI (history of athetotic heart disease, status post cardiac stenting), Reports dyspnea on exertion Respiratory: Denies cough Gastrointestinal: Denies abdominal pain, Denies diarrhea, Denies nausea, Denies vomiting Genitourinary: Reports as per HPI (no specific complaints) Musculoskeletal: Reports as per HPI, Reports redness of joints Musculoskeletal: left: foot pain, foot swelling Integumentary: Reports as per HPI, Reports wounds Neurological: Denies numbness, Denies weakness Psychiatric: Denies anxiety, Denies depression Endocrine: Denies fatigue, Denies weight change Hematologic/Lymphatic: Reports as per HPI Past Medical History Past Medical History: COPD, Myocardial Infarction ([place]), Thyroid Disorder Last Myocardial Infarction Date:: 09/2011 History of Any Multi-Drug Resistant Organisms: None Reported Past Surgical History: Heart Catheterization With Stent Past Anesthesia/Blood Transfusion Reactions: No Reported Reaction Date of Last Stent Placement:: 09/2011 Past Psychological History: No Psychological Hx Reported Smoking Status: Current every day smoker Past Alcohol Use History: Daily Past Drug Use History: Marijuana - Past Family History Mother Family Medical History: Deep Vein Thrombosis (DVT) Medications and Allergies Home Medications Medication Instructions Recorded Confirmed Type FLUoxetine HCL [PROzac] 20 mg PO DAILY 03/26/15 08/28/17 History Levothyroxine Sodium [Synthroid] 25 mcg PO DAILY 03/26/15 08/28/17 History amLODIPine [Norvasc] 10 mg PO DAILY 08/28/17 08/28/17 History Allergies Allergy/AdvReac Type Severity Reaction Status Date / Time No Known Allergies Allergy Verified 08/26/17 13:05 Physical Exam Vitals: Vital Signs Temp Pulse Resp BP BP Pulse Ox 08/28/17 12:00 96.9 F L 60 14 145/68 99 08/28/17 08:00 98.7 F 65 16 142/63 98 08/28/17 04:00 97.5 F L 60 16 124/69 95 08/28/17 00:00 60 16 110/59 96 08/27/17 20:00 60 16 103/71 98 08/27/17 16:00 99.1 F 58 L 16 120/73 Intake and Output 08/28/17 08/28/17 08/28/17 06:59 14:59 22:59 Intake Total 2080.4 Output Total 450 Balance -450 2080.4 Intake: IV 160 Sodium Chloride 0.9% 500 160 ml @ 20 mls/hr IV .Q24H [facility] Rx#:[id number] Intake, IV Titration 424.4 Amount Heparin Sod,Pork in 0.45% 424.4 NaCl 25,000 unit In 0.45 % NaCl 1 500ml.bag @ 12 UNITS/KG/HR 19.59 mls/hr IV .Q24H [facility] Rx#: [id number] Oral 1496 Output: Urine 450 Other: # Voids 1 2 Weight 75.6 kg - Constitutional General appearance: no acute distress - EENT Eyes: EOMI, PERRLA ENT: hearing grossly normal, normal oropharynx - Neck Neck: no lymphadenopathy Thyroid: bilateral: normal size - Respiratory Respiratory: bilateral: CTA - Cardiovascular Rhythm: regular Heart sounds: normal: S1, S2 - Gastrointestinal General gastrointestinal: normal bowel sounds, soft - Integumentary Integumentary: ulcer (left foot bandaged) - Neurologic Neurologic: CNII-XII intact - Musculoskeletal Musculoskeletal: generalized weakness, left sided weakness (distal lower extremity weakness due to foot swelling and pain) Results CBC & Chem 7: 08/28/17 06:22 08/28/17 06:22 Labs: Abnormal Lab Results - Last 24 Hours (Table) 08/28/17 08/28/17 08/28/17 Range/Units 06:22 06:22 06:22 RBC 3.79 L (4.30-5.90) m/uL Hgb 10.7 L (13.0-17.5) gm/dL Hct 35.2 L (39.0-53.0) % MCHC 30.4 L (31.0-37.0) g/dL Eosinophils # 1.3 H (0-0.7) k/uL APTT 36.1 H (22.0-30.0) sec Chloride 109 H (98-107) mmol/L Carbon Dioxide 18 L (22-30) mmol/L Creatinine 1.40 H (0.66-1.25) mg/dL Glucose 116 H (74-99) mg/dL Microbiology - Last 24 Hours (Table) 08/26/17 22:30 Gram Stain - Preliminary Toe - Left First Wound Culture - Preliminary 08/26/17 14:30 Blood Culture - Preliminary Blood No Growth after 24 hours 08/26/17 22:30 Anaerobic Culture - Preliminary Toe - Left First Comments: report of foot x-ray reviewed Chest x-ray: report reviewed Assessment and Plan (1) Eosinophilia Narrative/Plan: This was an incidental finding as noted. The pt has no known h/o blood problems. The absolute eosinophil count of > 500 is suspicious for a primary myeloproliferative disorder, such as chronic eosinophilic leukemia, given absence of any s/s s/o hypersensitivity/allergies. However the finding has to be persistent to justify further testing. The pt is currently asymptomatic, with no hypersensitivity symptoms. I would thus recommend f/u in the office in about 3-4 weeks. If findings persist, then w /u with molecular testing in the blood can be initiated Current Visit: Yes Status: Acute Code(s): D72.1 - EOSINOPHILIA SNOMED Code (s): 372210672 (2) Open wound of left foot Narrative/Plan: Defer to ID and the admitting service for continued management Current Visit: Yes Status: Acute Code(s): S91.302A - UNSPECIFIED OPEN WOUND , LEFT FOOT, INITIAL ENCOUNTER SNOMED Code(s): 112213986
[2017-08-29] MEDS: HYDROcodone/APAP 5-325MG 1 EACH TAB PO PRN ×2 (03:39→10:13)
[2017-08-29 06:19] LABS: Basophils # (A) 0.1 k/uL (0-0.2); Basophils % (A) 1 %; Eosinophils # (A) 0.9 k/uL (0-0.7); Eosinophils % (A) 8 %; HCT 32.1 % (39.0-53.0); HGB 10.1 gm/dL (13.0-17.5); Hypochromasia Slight; Lymphocytes # (A) 1.1 k/uL (1.0-4.8); Lymphocytes % (A) 10 %; MCH 28.4 pg (25.0-35.0); MCHC 31.5 g/dL (31.0-37.0); Mean Platelet Volume 8.7; Monocytes # (A) 0.3 k/uL (0-1.0); Monocytes % (A) 3 %; Neutrophils # (A) 8.4 k/uL (1.3-7.7); Neutrophils % (A) 77 %; Platelet Count 283 k/uL (150-450); RBC 3.57 m/uL (4.30-5.90); RDW 15.1 % (11.5-15.5)
[2017-08-29] MEDS: PANTOPRAZOLE 40 MG TABLET PO SCH (06:19)
[2017-08-29 06:25] LABS: Anion Gap 11 mmol/L; Blood Urea Nitrogen 16 mg/dL (9-20); Calcium 9.1 mg/dL (8.4-10.2); Carbon Dioxide 18 mmol/L (22-30); Chloride 110 mmol/L (98-107); Glucose 116 mg/dL (74-99); Potassium 3.8 mmol/L (3.5-5.1); Sodium 139 mmol/L (137-145)
--- NOTE | 2017-08-29 07:14 | PN ---
PROGRESS NOTE DATE OF SERVICE: 08/28/2017 REASON FOR FOLLOWUP: Left big toe wound and cellulitis. INTERVAL HISTORY: The patient is afebrile, he has been breathing comfortably. Denies any chest pain or cough. No abdominal pain. Left big toe pain is slightly improved. No drainage. PHYSICAL EXAMINATION: Blood pressure 125/63 with a pulse of 60, temperature of 98. He is 98% on room air. General description is a middle-aged male up in the bed, up in no distress. RESPIRATORY SYSTEM: Unlabored breathing, clear to auscultation anteriorly. HEART: S1, S2. Regular rate and rhythm. ABDOMEN: Soft, no tenderness. The left big toe is currently dressed up. No obvious drainage on the dressing. LABS: Hemoglobin is 10.7, white count 8.2, BUN of 17, creatinine 1.40. Wound culture so far negative. DIAGNOSTIC IMPRESSION AND PLAN: Patient with left big toe traumatic wound with secondary cellulitis. Wound culture showing a few gram-positive cocci. Waiting for them to be finalized. Keep the patient on Vancomycin, watching his kidney function closely. Continue supportive care. MMODL / IJN: [id number] /
[2017-08-29] MEDS: VANCOMYCIN 1,500 MG in SODIUM CHLORIDE 0.9% 250 ML IVPB SCH (07:40)
[2017-08-29] MEDS: NICOTINE 14MG/24HR PATCH TRANSDERM SCH (07:40)
[2017-08-29] MEDS: METOPROLOL TARTRATE 25 MG TAB PO SCH ×2 (07:40→13:36)
[2017-08-29] MEDS: APIXABAN 5 MG TAB PO SCH (07:40)
[2017-08-29 07:51] VITALS: RESP 16
[2017-08-29] MEDS: SODIUM CHLORIDE 0.9% 500 ML IV SCH (10:29)
[2017-08-29 11:28] VITALS: BP 114/70; PULSE 69; TEMP 97.8
--- NOTE | 2017-08-29 14:22 | P.PN ---
Subjective Progress Note Date: 08/29/17 Is a 62-year-old -[place] gentleman with known history of COPD, hypothyroidism, coronary artery disease with prior PCI, who presented to the hospital with a foot injury, he denied any chest discomfort, no dizziness lightheadedness or palpitations. He was seen in consultation by Dr. Rodriguez over the weekend. Patient states she's had issues with palpitations over the years, was not on any anticoagulation as an outpatient. He was found here to be in atrial fibrillation, initially was on IV Cardizem drip, currently on oral beta skylar. Heart rate today in the 70s to 80s. Echocardiogram with Doppler study was performed which revealed an ejection fraction of 55-60% with moderate mitral and tricuspid regurg. Patient was seen and examined this morning, feels well overall, quite eager to be discharged, still receiving vancomycin IV. We will discontinue the IV heparin and start the patient on Eliquis 5 mg one tablet by mouth twice a day. Patient is currently in normal sinus rhythm. 08/29/2017 Patient seen and examined this morning, he did have another episode of atrial fibrillation, currently in normal sinus rhythm. He is eager to be discharged home today. We will continue current medications, including metoprolol 25 mg by mouth 3 times a day along with Eliquis. He may be able to be discharged from our perspective to follow-up in the office one week post discharge. Objective - Vital Signs Vital signs: Vital Signs Temp 97.8 F 08/29/17 11:27 Pulse 69 08/29/17 11:28 Resp 16 08/29/17 11:28 BP 114/70 08/29/17 11:27 Pulse Ox 93 L 08/29/17 11:27 Intake & Output 08/28/17 08/29/17 08/29/17 18:59 06:59 18:59 Intake Total 2080.4 180 892 Output Total 450 Balance 2080.4 180 442 Weight 77.7 kg Intake: IV 160 180 Sodium Chloride 0.9% 500 160 180 ml @ 20 mls/hr IV .Q24H [facility] Rx#:[id number] Intake, IV Titration 424.4 490 Amount Heparin Sod,Pork in 0.45% 424.4 NaCl 25,000 unit In 0.45 % NaCl 1 500ml.bag @ 12 UNITS/KG/HR 19.59 mls/hr IV .Q24H [facility] Rx#: [id number] Sodium Chloride 0.9% 500 240 ml @ 20 mls/hr IV .Q24H [facility] Rx#:[id number] Vancomycin 1,500 mg In 250 Sodium Chloride 0.9% 250 ml @ 125 mls/hr IVPB Q16H [facility] Rx#:[id number] Oral 1496 402 Output: Urine 450 Other: Voiding Method Toilet Toilet # Voids 2 2 - Exam PHYSICAL EXAMINATION: HEENT: Head is atraumatic, normocephalic. Pupils equal, round. Neck is supple. There is no elevated jugular venous pressure. HEART EXAMINATION: Heart S1, S2 normal. No murmur or gallop heard. CHEST EXAMINATION: Lungs are clear to auscultation and precussion. No chest wall tenderness is noted on palpation or with deep breathing. ABDOMEN: Soft, nontender. Bowel sounds are heard. No organomegaly noted. EXTREMITIES: 1+ peripheral pulses with no evidence of peripheral edema and no calf tenderness noted. Dressing in place over her left great toe NEUROLOGIC patient is awake, alert and oriented -3. . - Labs CBC & Chem 7: 08/29/17 05:51 08/29/17 05:51 Labs: Abnormal Lab Results - Last 24 Hours (Table) 08/29/17 08/29/17 Range/Units 05:51 05:51 WBC 11.0 H (3.8-10.6) k/uL RBC 3.57 L (4.30-5.90) m/uL Hgb 10.1 L (13.0-17.5) gm/dL Hct 32.1 L (39.0-53.0) % Neutrophils # 8.4 H (1.3-7.7) k/uL Eosinophils # 0.9 H (0-0.7) k/uL Chloride 110 H (98-107) mmol/L Carbon Dioxide 18 L (22-30) mmol/L Creatinine 1.30 H (0.66-1.25) mg/dL Glucose 116 H (74-99) mg/dL Microbiology - Last 24 Hours (Table) 08/26/17 22:30 Gram Stain - Final Toe - Left First Wound Culture - Final 08/26/17 14:30 Blood Culture - Preliminary Blood No Growth after 48 hours Assessment and Plan Plan: Assessment and plan #1 atrial fibrillation, paroxysmal in nature. #2 left foot cellulitis #3 COPD #4 coronary artery disease with prior PCI #5 hypothyroidism #6 hyperlipidemia #7 nicotine dependence Plan Echocardiogram with Doppler study which was performed at revealed a normal left ventricular systolic function with moderate MR and moderate TR. We will discontinue the IV heparin and start the patient on Eliquis 5 mg one tablet by mouth twice a day. Continue current dose of beta skylar. Patient may be able to be discharged home to follow-up in the office post discharge. DNP note has been reviewed, I agree with a documented findings and plan of care. Patient was seen and examined.
--- NOTE | 2017-08-29 16:49 | PN ---
PROGRESS NOTE DATE OF SERVICE: 08/29/2017 REASON FOR FOLLOWUP: Left big toe wound and cellulitis. INTERVAL HISTORY: The patient is afebrile. He is breathing comfortably. Pain to the left big toe area is currently controlled. Denies having any chest pain. No shortness of breath or cough. No abdominal pain or diarrhea. Insisting on going home. PHYSICAL EXAMINATION: On examination, blood pressure is 114/70, pulse of 69, temperature 97.8. He is 93% on room air. General description is a middle-aged male up in the bed in no distress. RESPIRATORY SYSTEM: Unlabored breathing. Clear to auscultation anteriorly. HEART: S1, S2. Regular rate and rhythm. ABDOMEN: Soft. No tenderness. Left big toe wound with some swelling. No open area was noticed. Possibly drainage, though. LABS: White count of 11, BUN of 15, creatinine 1.30. Wound culture final negative; normal skin camelia. DIAGNOSTIC IMPRESSION AND PLAN: Patient with left big toe wound, traumatic, with some cellulitis. Culture positive for skin camelia. No resistant organism has been grown. Antibiotic will be adjusted to Keflex 500 mg t.i.d. for another 7 to 10 days. Prescription was sent to his pharmacy. Continue supportive care. MMODL / IJN: [id number] / MTDD
--- NOTE | 2017-08-30 09:14 | DS ---
DISCHARGE SUMMARY DATE OF SERVICE: 08/29/2017. FINAL DIAGNOSES: 1. Atrial fibrillation with fast ventricular rate, new onset. 2. Left foot cellulitis with contusion and severe pain. 3. Increased creatinine with chronic kidney disease stage 3. 4. History of chronic obstructive pulmonary disease. 5. Eosinophilia, etiology undetermined. 6. History of coronary artery disease, stent/. 7. History myocardial infarction. 8. History hypothyroidism. 9. History of continued ongoing nicotine dependence. 10.History of EtOH. DISCHARGE DISPOSITION: The patient will be discharged in stable condition with guarded prognosis. HISTORY OF PRESENT ILLNESS: This 62-year-old gentleman who was admitted with multiple medical problems with new onset atrial fibrillation, treated in conjunction with Cardiology. The patient improved significantly. The patient also had left foot cellulitis, treated symptomatically. Patient also had eosinophilia. Recommended follow up with Dr. Winters. The patient improved significantly. On exam, vitals are stable. CARDIOVASCULAR: S1 and S2 muffled. ABDOMEN: Soft. NERVOUS SYSTEM: No focal deficit. DISCHARGE ADVICE: 1. Diet is cardiac. 2. Activities limited until followup. 3. Follow up with Dr. Elana Mccormack in 2 to 3 days. 4. Follow up with Dr. Winters for eosinophilia. 5. Follow up with Dr. Addison in one week. 6. Follow up with Dr. Rico Infectious Disease. 7. Follow up with Cardiology as advised. DISCHARGE MEDICATIONS: 1. Eliquis 5 mg p.o. b.i.d. 2. Keflex 500 mg p.o. q.8 for 10 days. 3. Prozac 20 mg daily. 4. [place] 5 mg q.6 p.r.n. 5. Synthroid 25 mcg p.o. daily. 6. Ativan 0.5 mg q.8 p.r.n. 7. Lopressor 25 mg p.o. t.i.d. 8. Habitrol 14 daily. 9. Protonix 40 mg daily. Once again, the patient will be discharged in stable condition with a guarded prognosis. MMODL / IJN: [id number] /
[2017-08-30] MEDS ORDERED: VANCOMYCIN TROUGH DUE 1 EACH MISC MISCELLANE ONE (15:00)
--- NOTE | 2017-09-06 11:54 | CONS ---
DATE OF CONSULTATION: 09/06/2017 This is a 62-year-old male, who was seen 08/28/2017 when he came with a history of trauma to the left foot, big toe. He had some wound on his nail bed. He was treated with local wound care and IV antibiotics. Patient was sent home. Patient has come again last night to the emergency room with the same complaint. Patient has left foot, big toe some fall order noted. Patient has been admitted with IV antibiotic. Patient has been diagnosed with atrial fibrillation. This patient is known to me from the office. He has been coming for carotid artery evaluation. Patient has a coronary artery stent placed in the past. Positive history of smoking, continue to smoke. PHYSICAL EXAMINATION: Neck is supple. Chest is clear to auscultation. Abdomen is soft. Brachial and radial pulses are present. Femorals are 2+. Posterior tibial pulses were not palpable. Patient has a faint Doppler on both feet, left big toe has dry gangrene changes. PLAN: We will do the angiogram and further comments were made after the angiogram. In the meantime, we will continue with IV antibiotic and local wound care. Prognosis is guarded. MMODL / IJN: [id number] / SABINE
== END 2017-08-29 15:43 | disposition home health service (06) | DRG 603 ==
LOC: EC 10:33 → 6SEL 15:11
PROVIDERS: ADMIT Internal Medicine; ATTEND Internal Medicine
DX: L03.032 Cellulitis of left toe (principal); D72.1 Eosinophilia; N18.3 Chronic kidney disease, stage 3 (moderate); S91.102A Unspecified open wound of left great toe without damage to nail, initial encounter; I48.0 Paroxysmal atrial fibrillation; E03.9 Hypothyroidism, unspecified; E78.5 Hyperlipidemia, unspecified; F17.210 Nicotine dependence, cigarettes, uncomplicated; I08.1 Rheumatic disorders of both mitral and tricuspid valves; I12.9 Hypertensive chronic kidney disease with stage 1 through stage 4 chronic kidney disease, or unspecified chronic kidney disease; I25.10 Atherosclerotic heart disease of native coronary artery without angina pectoris; I25.2 Old myocardial infarction; J44.9 Chronic obstructive pulmonary disease, unspecified; Z79.02 Long term (current) use of antithrombotics/antiplatelets; Z79.82 Long term (current) use of aspirin; Z79.899 Other long term (current) drug therapy; Z95.5 Presence of coronary angioplasty implant and graft; X58.XXXA Exposure to other specified factors, initial encounter; Y92.9 Unspecified place or not applicable
CPT/HCPCS: 36415; 71046; 80048; 80053; 82550; 82553; 83605; 83735; 84443; 84484; 85025; 85610; 85730; 87040; 87070; 87075; 87205; 93005; 93306; 96360; 96361; 96365; 96368; 96376; 99284

== ENCOUNTER 2017-09-05 09:31 | Inpatient (IN) | payer MEDICARE, OTHER ==
--- NOTE | 2017-09-05 10:07 | ED ---
Lower Extremity Injury HPI - General Chief Complaint: Extremity Injury, Lower Stated Complaint: Foot recheck Time Seen by Provider: 09/05/17 09:43 Source: patient Mode of arrival: wheelchair Limitations: no limitations - History of Present Illness Initial Comments: This is a 62 year old male who presents with a chief complaint of left foot pain. The patient states he kicked a table about 3 weeks ago. He had a recent hospital stay about one week ago due to new onset atrial fibrillation and left foot cellulitis with contusion. Radiographs of the left foot at that time did not reveal any fractures. He was discharged on 08/29/2017 with a prescription for Keflex 500mg PO three times daily for 10 days. He has been wrapping the great toe with medi-honey. The patient saw his primary care provider, Dr. Huitron, and states that new images of his left foot were taken which revealed a fracture. Today, the patient states he still has severe pain in the left great toe. - Related Data Home Medications Medication Instructions Recorded Confirmed FLUoxetine HCL [PROzac] 20 mg PO DAILY 03/26/15 09/05/17 Levothyroxine Sodium [Synthroid] 25 mcg PO DAILY 03/26/15 09/05/17 HYDROcodone/APAP 5-325MG [[place] 1 tab PO Q6HR PRN 09/05/17 09/05/17 5-325] Previous Rx's Medication Instructions Recorded Apixaban [Eliquis] 5 mg PO BID tab 08/29/17 Cephalexin [Keflex] 500 mg PO Q8HR #30 cap 08/29/17 LORazepam [Ativan] 0.5 mg PO Q8HR PRN #20 tab 08/29/17 Metoprolol Tartrate [Lopressor] 25 mg PO TID #90 tab 08/29/17 Nicotine 14Mg/24Hr Patch [Habitrol] 1 patch TRANSDERM DAILY #30 patch 08/29/17 Pantoprazole [Protonix] 40 mg PO AC-BRKFST #30 tablet. 08/29/17 Allergies Allergy/AdvReac Type Severity Reaction Status Date / Time No Known Allergies Allergy Verified 09/05/17 10:04 Review of Systems ROS Statement: Those systems with pertinent positive or pertinent negative responses have been documented in the HPI. ROS Other: All systems not noted in ROS Statement are negative. Past Medical History Past Medical History: COPD, Hypertension, Myocardial Infarction ([place]), Thyroid Disorder Last Myocardial Infarction Date:: 09/2011 History of Any Multi-Drug Resistant Organisms: None Reported Past Surgical History: Heart Catheterization With Stent Past Anesthesia/Blood Transfusion Reactions: No Reported Reaction Date of Last Stent Placement:: 09/2011 Past Psychological History: No Psychological Hx Reported Smoking Status: Current every day smoker Past Alcohol Use History: Daily, Occasional Past Drug Use History: None Reported, Marijuana - Past Family History Mother Family Medical History: Deep Vein Thrombosis (DVT) General Exam Limitations: no limitations General appearance: alert, in no apparent distress Head exam: Present: atraumatic, normocephalic, normal inspection Extremities exam: Present: other (Significant pitting edema noted in the left lower extremity. Tender to palpation of the left foot, especially with palpation of the left great toe. The left great toe has notable skin color changes and is malodorous. Neurovascular remains grossly intact.) Neurological exam: Present: alert, oriented X3, CN II-XII intact Psychiatric exam: Present: normal affect, normal mood Skin exam: Present: warm, dry, intact, normal color. Absent: rash Course Vital Signs 09/05/17 09/05/17 09:34 09:52 Temperature 97.0 F L Pulse Rate 110 H Respiratory 20 Rate Blood Pressure 158/72 O2 Sat by Pulse 100 Oximetry Medical Decision Making - Lab Data Result diagrams: 09/05/17 10:10 09/05/17 10:10 Lab Results 09/05/17 09/05/17 09/05/17 Range/Units 10:10 10:10 10:10 WBC 7.6 (3.8-10.6) k/uL RBC 3.72 L (4.30-5.90) m/uL Hgb 10.5 L (13.0-17.5) gm/dL Hct 33.7 L (39.0-53.0) % MCV 90.5 (80.0-100.0) fL MCH 28.2 (25.0-35.0) pg MCHC 31.2 (31.0-37.0) g/dL RDW 14.3 (11.5-15.5) % Plt Count 356 (150-450) k/uL Neutrophils % 58 % Lymphocytes % 19 % Monocytes % 3 % Eosinophils % 15 % Basophils % 1 % Neutrophils # 4.4 (1.3-7.7) k/uL Lymphocytes # 1.4 (1.0-4.8) k/uL Monocytes # 0.2 (0-1.0) k/uL Eosinophils # 1.2 H (0-0.7) k/uL Basophils # 0.1 (0-0.2) k/uL Hypochromasia Slight Sodium 142 (137-145) mmol/L Potassium 4.7 (3.5-5.1) mmol/L Chloride 108 H (98-107) mmol/L Carbon Dioxide 20 L (22-30) mmol/L Anion Gap 14 mmol/L BUN 19 (9-20) mg/dL Creatinine 1.80 H (0.66-1.25) mg/dL Est GFR (MDRD) Af Amer 47 (>60 ml/min/1.73 sqM) Est GFR (MDRD) Non-Af 39 (>60 ml/min/1.73 sqM) Glucose 123 H (74-99) mg/dL Plasma Lactic Acid Jorge 1.8 (0.7-2.0) mmol/L Calcium 9.7 (8.4-10.2) mg/dL Total Bilirubin 0.4 (0.2-1.3) mg/dL AST 23 (17-59) U/L ALT 19 L (21-72) U/L Alkaline Phosphatase 82 (38-126) U/L C-Reactive Protein 37.7 H (<10.0) mg/L Total Protein 7.6 (6.3-8.2) g/dL Albumin 3.5 (3.5-5.0) g/dL Disposition Clinical Impression: Gangrenous toe, Peripheral vascular disease Disposition: ADMITTED IP TO THIS [facility] Condition: Fair Referrals: Elana Mccormack MD [Primary Care Provider] - 1-2 days
[2017-09-05 10:23] LABS: Basophils # (A) 0.1 k/uL (0-0.2); Basophils % (A) 1 %; Eosinophils # (A) 1.2 k/uL (0-0.7); Eosinophils % (A) 15 %; HCT 33.7 % (39.0-53.0); HGB 10.5 gm/dL (13.0-17.5); Hypochromasia Slight; Lymphocytes # (A) 1.4 k/uL (1.0-4.8); Lymphocytes % (A) 19 %; MCH 28.2 pg (25.0-35.0); MCHC 31.2 g/dL (31.0-37.0); MCV 90.5 fL (80.0-100.0); Monocytes # (A) 0.2 k/uL (0-1.0); Monocytes % (A) 3 %; Neutrophils # (A) 4.4 k/uL (1.3-7.7); Neutrophils % (A) 58 %; Platelet Count 356 k/uL (150-450); RBC 3.72 m/uL (4.30-5.90); RDW 14.3 % (11.5-15.5); WBC 7.6 k/uL (3.8-10.6)
--- NOTE | 2017-09-05 10:48 | XR ---
EXAMINATION TYPE: XR foot complete LT DATE OF EXAM: 09/05/2017 CLINICAL HISTORY: Persistent Left foot pain after injury 3 weeks ago. TECHNIQUE: Frontal, lateral, and oblique images of the left foot are obtained. COMPARISON: Left foot x-ray from 10 days ago. FINDINGS: There is no acute fracture/dislocation evident in the left foot. There is chronic deformit y of distal aspect fifth distal phalanx redemonstrated. There is mild hallux valgus positioning first metatarsophalangeal joint with mild spurring and joint space loss. Unfused apophysis near cuboid bon e is redemonstrated. Flexion in toes is again seen. Ossific fusion third and fourth PIP joints is red emonstrated. The overlying soft tissue shows mild to moderate diffuse swelling felt slightly more pro minent versus prior. IMPRESSION: There is no acute fracture or dislocation in the left foot. Mild to moderate diffuse sof t tissue swelling persists and is felt slightly more prominent.
[2017-09-05 11:04] LABS: Albumin 3.5 g/dL (3.5-5.0); C Reactive Protein 37.7 mg/L (<10.0); Calcium 9.7 mg/dL (8.4-10.2); Total Bilirubin 0.4 mg/dL (0.2-1.3); Total Protein 7.6 g/dL (6.3-8.2)
[2017-09-05 11:16] LABS: Potassium 4.7 mmol/L (3.5-5.1)
--- NOTE | 2017-09-05 11:28 | US ---
EXAMINATION TYPE: US venous doppler duplex LE LT DATE OF EXAM: 09/05/2017 11:16 AM COMPARISON: SP ABD aortogram with runoff 2011 CLINICAL HISTORY: Pain. Malodor and drainage from left great toe;left foot swelling x 3 weeks; patien t stated injured left foot 3 weeks ago; complains of rest pain; PVD per PACS SIDE PERFORMED: Left TECHNIQUE: The lower extremity deep venous system is examined utilizing real time linear array sonog jo-ann with graded compression, doppler sonography and color-flow sonography. VESSELS IMAGED: Common Femoral Vein Deep Femoral Vein Greater Saphenous Vein * Femoral Vein Popliteal Vein Small Saphenous Vein * Proximal Calf Veins (* superficial vessels) Left Leg: Negative for DVT. Incidental findings of absent color flow and inaudible Doppler signal in mid and lower left Femoral Artery. Monophasic arterial signal is noted in left Popliteal Artery. Alejandro ma channels are noted at left lower leg. Grayscale, color doppler, spectral doppler imaging performed of the deep veins of the left lower extr emity. There is normal flow, compressibility, vascular waveforms. IMPRESSION: No ultrasound evidence for acute DVT in the left lower extremity. Moderate diffuse subcu taneous is seen distally. Peripheral arterial disease is documented, consider follow-up.
[2017-09-05] MEDS ORDERED: VANCOMYCIN IV PER PHARMACY 1 EACH MISC MISCELLANE PRN (12:02)
[2017-09-05] MEDS ORDERED: VANCOMYCIN 1,500 MG in SODIUM CHLORIDE 0.9% 250 ML IVPB STA (12:06)
[2017-09-05] MEDS: HYDROcodone/APAP 5-325MG 1 EACH TAB PO PRN ×3 (12:40→22:39)
[2017-09-05] MEDS ORDERED: PNEUMOCOCCAL VACC-PNEUMOVAX 23 25 MCG/0.5 ML VIAL IM ONE (14:07)
[2017-09-05] MEDS ORDERED: INFLUENZA VACCINE (6 MOS+) 60 MCG/0.5 ML SYRINGE IM ONE (14:10)
[2017-09-05] MEDS ORDERED: LORazepam 0.5 MG TAB PO PRN (21:14)
[2017-09-05] MEDS: METOPROLOL TARTRATE 25 MG TAB PO SCH (22:39)
[2017-09-05] MEDS ORDERED: HYDROcodone/APAP 5-325MG 1 EACH TAB PO PRN (22:58)
[2017-09-06] MEDS: CEPHALEXIN 500 MG CAP PO SCH ×2 (00:27→08:54)
[2017-09-06] MEDS: LEVOTHYROXINE 25 MCG TAB PO SCH (06:34)
[2017-09-06] MEDS ORDERED: VANCOMYCIN 1,250 MG in SODIUM CHLORIDE 0.9% 250 ML IVPB SCH (07:00)
--- NOTE | 2017-09-06 07:03 | HP ---
HISTORY AND PHYSICAL DATE OF ADMISSION: 09/05/17 PRESENTING COMPLAINT: Left foot pain. HISTORY OF PRESENTING COMPLAINT: This is a 62-year-old patient who follows with Dr. Elana Mccormack. Chronic stable medical conditions include atrial fibrillation, chronic kidney disease stage 3, COPD, coronary artery disease with stent, hypothyroid, hypertension, hyperlipidemia. The patient is here in the hospital on 08/26/17 and was discharged on August 29, 2017. At that time patient had happened to kick a table and had injury to the left big toe. Cultures at that time showed some anaerobic gram-positive cocci. The patient was then seen by Dr. Rico from Infectious Disease who discharged the patient on Keflex. The patient went to see his family doctor today complaining of some more toe pain. X-rays done at that time did not show any fracture, but when he was sent to the ER there was a question about a fracture and having more pain. The patient denies any fever. Appetite maintained. Some increased pain in the left foot. Has been taking Keflex as prescribed by Dr. Rico. REVIEW OF SYSTEMS: CONSTITUTIONAL: None. HEENT none. Respiratory: Occasional wheezing, cough, short of breath. Cardiovascular none. Gastrointestinal none. Genitourinary none. Musculoskeletal as above. Dermatological as above. Psychiatry none. Neurological none. PAST MEDICAL HISTORY: Coronary artery disease with stent, COPD, hypertension, hyperlipidemia, hypothyroid, atrial fibrillation, eosophilia, cause unknown, chronic kidney disease stage 3, peripheral artery disease, diverticulosis, past alcohol use. PAST SURGICAL HISTORY: Abdominal aortogram with bilateral runoffs, colonoscopy, cardiac cath with stent. PSYCH: History of depression, anxiety. SOCIAL HISTORY: The patient smoking close to 40 years about a pack a day. Used to drink lots more in the past. Now down to less than 14 drinks per week. Lives by himself. Not employed. Does marijuana sometimes. FAMILY HISTORY: Diabetes type 2 and DVT. HOME MEDICATIONS: 1. Keflex 500 mg p.o. q.8h. 2. Protonix 40 mg breakfast. 3. Lopressor 25 p.o. t.i.d. 4. Synthroid 25 mcg a day. 5. Ativan 0.5 p.o. q.8h p.r.n. 6. [place] 5 one tab q.6h p.r.n. 7. Prozac 20 mg daily. 8. Eliquis 5 mg p.o. b.i.d. ALLERGIES: None. PHYSICAL EXAMINATION: Vital signs on presentation: Temperature 97, pulse 110, respiration 20, blood pressure 150/72, pulse ox 100% on room air room. General appearance: Average built, sitting up, not in distress. Eyes pupils equal. Conjunctivae normal. HEENT: External appearance of nose and ears normal. Oral cavity normal. Neck JVD not raised. Mass not palpable. Respiratory effort normal. LUNGS: Diminished breath sounds. Mild wheezing. Cardiovascular: Heart sounds irregular. No edema. ABDOMEN: Soft, nontender. Liver and spleen not palpable. No mass palpable. Lymphatics: No lymph nodes palpable in the neck and axilla. Psychiatry: Alert and oriented times three. Mood and affect normal. Neurological: Pupils equal. Cranial nerves grossly intact. Power and sensation grossly intact. Extremities: Left toe in a dressing. INVESTIGATIONS: White count 7.6, hemoglobin 10.5, potassium 4.7, BUN 19, creatinine 1.80. CRP 37.7. Foot x-ray does not show any fracture. ASSESSMENT: 1. This is a patient who about 10 days ago had injured his left toe against a glass table and there was some bruising and some breakdown of skin. Culture on the last admission did grow some anaerobic gram-positive cocci. The patient seen by Dr. Rico from Infectious Disease discharged the patient on Keflex. Having some more pain. Outpatient x-rays reporting a fracture. Repeat x-ray done here in the ER did not show any fracture. There was no fever and with there is no white count. 2. Persistent atrial fibrillation chronically on Eliquis. 3. Chronic kidney disease stage 3 probably from nephrosclerosis. 4. Chronic obstructive pulmonary disease in a current smoker. 5. Chronic nicotine dependence patient is a cigarette smoker. 6. Coronary artery disease prior history of stent. 7. Hypothyroid. 8. Essential hypertension. 9. Hyperlipidemia. 10.Peripheral artery disease. 11.Depression, anxiety not otherwise specified. PLAN: At this point will continue patient's Keflex. Patient did get 1 dose of vancomycin in the ER. We will have Dr. Rico evaluate the same. We will also get Orthopedic consultation given an outside report did mention the patient having a fracture. Nevertheless, if there is a fracture most likely, this will be splinted. The patient's home medications will be resumed. Care was discussed with the patient. Smoke counseling cessation was done with the patient and telling him his conditions are going to get worse. Will be given a nicotine patch and nicotine gum. More than 3 minutes were done, spent for this counseling. Copy Dr. Ealna Mccormack. MMLUIS CARLOS / IJN: [id number] /
[2017-09-06] MEDS ORDERED: PANTOPRAZOLE 40 MG TABLET PO SCH (07:30)
[2017-09-06] MEDS ORDERED: RX INFO: IV CONTRAST WAS GIVEN 1 EACH MISC MISCELLANE PRN (08:03)
[2017-09-06] MEDS: NICOTINE 21MG/24HR PATCH TRANSDERM SCH ×2 (08:54→11:44)
[2017-09-06] MEDS: FLUoxetine HCL 20 MG CAP PO SCH (08:54)
[2017-09-06] MEDS: METOPROLOL TARTRATE 25 MG TAB PO SCH (08:54)
[2017-09-06] MEDS ORDERED: APIXABAN 5 MG TAB PO SCH (09:00)
--- NOTE | 2017-09-06 09:18 | P.CNOR ---
History of Present Illness - HPI Consult date: 09/06/17 History of present illness: This is an 62-year-old male who is admitted for infection of the left toe and peripheral vascular disease. Patient states 3 weeks ago he stubbed his toe on a desk. Patient states he thought the toe would heal on its own but it continued to get worse. Patient states that he has been on oral antibiotics for this. Patient states he has lost some feeling in the left toe. Patient denies any fever/chills, history of diabetes, weakness or tingling. Review of Systems See HPI. Past Medical History Past Medical History: Coronary Artery Disease (CAD), COPD, Hyperlipidemia, Hypertension, Myocardial Infarction ([place]), Thyroid Disorder Additional Past Medical History / Comment(s): Pt recently admitted to [facility] with AFib RVR, L foot cellulitis/pain and eosinophilia undetermined etiology/ to follow up with Dr. Winters. Other Hx: Chronic kidney disease stage III, hypothyroid, PAD, diverticular dx, past ETOH abuse. Last Myocardial Infarction Date:: 09/2011 History of Any Multi-Drug Resistant Organisms: None Reported Past Surgical History: Heart Catheterization With Stent Additional Past Surgical History / Comment(s): colonoscopy, abdominal aortogram with bilateral run-offs. Past Anesthesia/Blood Transfusion Reactions: No Reported Reaction Date of Last Stent Placement:: 09/2011 Past Psychological History: Anxiety Additional Psychological History / Comment(s): Pt resides alone. He uses a cane to ambulate and has a L foot medi shoe. He does not drive. He gets to [facility] with his cousin. Smoking Status: Current every day smoker Past Alcohol Use History: Daily, Occasional Additional Past Alcohol Use History / Comment(s): Pt started smoking in 1977 and is a ppd smoker. He states he drinks less than 14 drinks per week but used to drink heavier. Past Drug Use History: None Reported, Marijuana - Past Family History Mother Family Medical History: Diabetes Mellitus, Deep Vein Thrombosis (DVT) Medications and Allergies Home Medications Medication Instructions Recorded Confirmed Type FLUoxetine HCL [PROzac] 20 mg PO DAILY 03/26/15 09/05/17 History Levothyroxine Sodium [Synthroid] 25 mcg PO DAILY 03/26/15 09/05/17 History Apixaban [Eliquis] 5 mg PO BID tab 08/29/17 09/05/17 Rx Cephalexin [Keflex] 500 mg PO Q8HR #30 cap 08/29/17 09/05/17 Rx LORazepam [Ativan] 0.5 mg PO Q8HR PRN #20 tab 08/29/17 09/05/17 Rx Metoprolol Tartrate [Lopressor] 25 mg PO TID #90 tab 08/29/17 09/05/17 Rx Pantoprazole [Protonix] 40 mg PO AC-BRKFST #30 tablet. 08/29/17 09/05/17 Rx HYDROcodone/APAP 5-325MG [[place] 1 tab PO Q6HR PRN 09/05/17 09/05/17 History 5-325] Allergies Allergy/AdvReac Type Severity Reaction Status Date / Time No Known Allergies Allergy Verified 09/05/17 10:04 Physical Examination On exam the left foot is malodorous and edematous. Left toe with superficial wound. Calf is soft and nontender to palpation. Neurovascular status and circulatory status are intact. Results X-rays of the left foot are reviewed. There are no acute fractures or dislocation. - Labs Labs: Abnormal Lab Results - Last 24 Hours (Table) 09/05/17 09/05/17 Range/Units 10:10 10:10 RBC 3.72 L (4.30-5.90) m/uL Hgb 10.5 L (13.0-17.5) gm/dL Hct 33.7 L (39.0-53.0) % Eosinophils # 1.2 H (0-0.7) k/uL Chloride 108 H (98-107) mmol/L Carbon Dioxide 20 L (22-30) mmol/L Creatinine 1.80 H (0.66-1.25) mg/dL Glucose 123 H (74-99) mg/dL ALT 19 L (21-72) U/L C-Reactive Protein 37.7 H (<10.0) mg/L H & H 09/05/17 Range/Units 10:10 Hgb 10.5 L (13.0-17.5) gm/dL Hct 33.7 L (39.0-53.0) % Result Diagrams: 09/05/17 10:10 09/05/17 10:10 Assessment and Plan (1) Gangrenous toe Current Visit: Yes Status: Acute Code(s): I96 - GANGRENE, NOT ELSEWHERE CLASSIFIED SNOMED Code(s): 323369134 (2) Peripheral vascular disease Current Visit: Yes Status: Acute Code(s): I73.9 - PERIPHERAL VASCULAR DISEASE, UNSPECIFIED SNOMED Code(s): 303856859 Plan: #1. X-ray reveals no fractures. #2. No surgical intervention planned. #3. Will defer to vascular and infectious disease and sign off at this time.
[2017-09-06 12:28] LABS: Glucose,Whole Blood 154 mg/dL (75-99)
[2017-09-06 14:06] LABS: Hypochromasia Moderate; MCH 28.4 pg (25.0-35.0); MCHC 30.5 g/dL (31.0-37.0); MCV 93.3 fL (80.0-100.0); Mean Platelet Volume 8.7; Platelet Count 201 k/uL (150-450); RBC 3.85 m/uL (4.30-5.90); RDW 14.4 % (11.5-15.5)
[2017-09-06 14:27] LABS: Glucose,Whole Blood 110 mg/dL (75-99)
[2017-09-06 14:33] LABS: Lymphocytes # (M) 1.32 k/uL (1.0-4.8); Monocytes # (M) 0.36 k/uL (0-1.0); Neutrophils # (M) 10.32 k/uL (1.3-7.7); Neutrophils % (M) 86 %; Nucleated Red Blood Cells 0 /100 WBC (0-0); Total Cells Counted 100
[2017-09-06 14:35] LABS: Anisocytosis (M) Present; Poikilocytosis (M) Present
--- NOTE | 2017-09-06 14:52 | XR ---
EXAMINATION TYPE: XR chest 1V portable DATE OF EXAM: 09/06/2017 COMPARISON: Prior chest x-ray 08/26/2017 HISTORY: Cardiac arrest TECHNIQUE: Single frontal view of the chest is obtained. FINDINGS: Perihilar airspace disease is present bilaterally. There are overlying cardiac leads. Ther e is no pleural effusion or pneumothorax seen. The cardiac silhouette size is stable, patient is ro tated which may accentuate the appearance of the heart size. The osseous structures are intact. IMPRESSION: Correlate for congestive heart failure with pulmonary edema. Pneumonia not excluded.
[2017-09-06 14:58] LABS: Glucose,Whole Blood 217 mg/dL (75-99)
[2017-09-06] MEDS ORDERED: DOPamine DRIP 500 ML IV ONE (15:00)
[2017-09-06 15:44] LABS: ABG HCO3 11 mmol/L (21-25); ABG Oxygen Saturation 76.8 % (94-97); ABG PCO2 26 mmHg (35-45); ABG PH 7.22 (7.35-7.45); ABG PO2 56 mmHg (83-108); ABG TCO2 12 mmol/L (19-24)
[2017-09-06] MEDS ORDERED: SODIUM BICARB 8.4% 50 ML SYR (1 MEQ/ML) IV STA ×2 (15:59→18:48)
[2017-09-06] MEDS ORDERED: PROPOFOL 100 ML IV ONE (16:14)
[2017-09-06] MEDS ORDERED: SUCCINYLCHOLINE CHLORIDE 100 MG/5 ML SYR IV ONE (16:14)
[2017-09-06] MEDS ORDERED: MIDAZOLAM 2 MG/2 ML VIAL ONE (16:14)
[2017-09-06] MEDS ORDERED: MORPHINE SULFATE 2 MG/ML SYRINGE ONE (16:14)
[2017-09-06] MEDS ORDERED: DEXTROSE 5% IN WATER 1,000 ML with SODIUM BICARB (1 MEQ/ML) 150 ML IV SCH (16:30)
--- NOTE | 2017-09-06 17:22 | XR ---
EXAMINATION TYPE: XR chest 1V portable DATE OF EXAM: 09/06/2017 COMPARISON: Today HISTORY: Cardiac arrest TECHNIQUE: Single frontal view of the chest is obtained. FINDINGS: There is pulmonary alveolar edema. Endotracheal tube is in good position. There is a nasog astric tube in good position. There are chest leads. IMPRESSION: Moderately severe pulmonary edema without change compared to exam at 2:30 PM. Tubing rose mary ears in good position.
[2017-09-06 17:24] LABS: ABG Base Excess -10.3 mmol/L; ABG HCO3 18 mmol/L (21-25); ABG Oxygen Saturation 87.3 % (94-97); ABG PCO2 44 mmHg (35-45); ABG PH 7.21 (7.35-7.45); ABG PO2 73 mmHg (83-108); ABG TCO2 19 mmol/L (19-24)
--- NOTE | 2017-09-06 17:43 | P.CNPUL ---
History of Present Illness Consult date: 09/06/17 Requesting physician: Federico Alston Reason for consult: hypoxemia Chief complaint: Left foot pain History of present illness: This is a 62-year-old -Micron[place] male with history of chronic atrial fibrillation, chronic kidney disease stage III, coronary artery disease and previous stent placement, hypertension, hypothyroidism, patient was recently admitted to the hospital on 08/26/2017 and he was discharged on 08/26. Apparently the patient was admitted with left toe cellulitis secondary to trauma related to picking at table. Cultures showed anaerobic gram-positive cocci at the time. Patient was seen by infectious disease on consultation, and he was discharged home on Keflex. X-rays of the toe at the time failed to show any fracture, but the patient continued to have pain no documented fever, no chills, no shortness of breath. The patient was admitted actually yesterday, workup included x-rays of the foot, and there was diffuse soft tissue swelling, but no fracture. Venous Doppler of the left lower extremity showed no evidence of deep vein thrombosis. Patient was seen by orthopedics on consultation, and the left foot was noted to be malodorous, edematous, left toe with superficial wound, patient underwent debridement of the wound, he was felt to have a gangrenous toe. And severe peripheral vessel occlusive disease. Around noontime today, patient was noted to be hypotensive, bradycardic, and he was developing worsening shortness of breath with congestion. Patient was placed on non-rebreather mask, transferred to the intensive care unit, placed on dopamine, because of his bradycardia which looked like a high degree AV block. Seen by cardiology on consultation, and felt this is mostly related to his undergoing sepsis, recommended that we continue dopamine, no need for temporary or permanent pacemaker insertion. Not to mention the patient received his usual dose of metoprolol earlier today. I saw the patient in the ICU, and I reviewed his chest x-ray which showed clearly evidence of pulmonary edema or possibly a picture of ARDS, although the possibility of cardiogenic pulmonary edema is not entirely ruled out. ABG on a nonrebreather mask showed pO2 of 56 pCO2 of 26 pH of 7.22. His lactic acid was 7.8. And his CBC from earlier today showed WBC count of 12.0, it was 7.6 yesterday. Shortly after my evaluation, patient was intubated, placed on mechanical ventilation, he is presently on a tidal volume of 450, assist control rate of 16, FiO2 of 100%, and PEEP of 8. Follow-up chest x-ray post intubation is pending. After intubation, central line was placed because the patient will require most likely more pressors and higher doses of dopamine possibly and will need to be placed on propofol drip. In the meantime I have recommended that the patient is placed on the sepsis protocol, fluids were given earlier, and a stat echocardiogram was ordered to evaluate his new finding of pulmonary edema which may be noncardiogenic or possibly cardiogenic in nature. The patient himself is a very poor historian, most of the information was obtained from the chart itself. Presently the patient is on 15 mcg/kg/m of dopamine, he is also on antibiotics in the form of vancomycin and I will go ahead and add Zosyn. Review of Systems 14 point review of systems were obtained, refer to pertinent positives in the HPI otherwise remaining systems are negative. Patient is not the greatest historian. Past Medical History Past Medical History: Coronary Artery Disease (CAD), COPD, Hyperlipidemia, Hypertension, Myocardial Infarction ([place]), Thyroid Disorder Additional Past Medical History / Comment(s): Pt recently admitted to [facility] with AFib RVR, L foot cellulitis/pain and eosinophilia undetermined etiology/ to follow up with Dr. Winters. Other Hx: Chronic kidney disease stage III, hypothyroid, PAD, diverticular dx, past ETOH abuse. Last Myocardial Infarction Date:: 09/2011 History of Any Multi-Drug Resistant Organisms: None Reported Past Surgical History: Heart Catheterization With Stent Additional Past Surgical History / Comment(s): colonoscopy, abdominal aortogram with bilateral run-offs. Past Anesthesia/Blood Transfusion Reactions: No Reported Reaction Date of Last Stent Placement:: 09/2011 Past Psychological History: Anxiety Additional Psychological History / Comment(s): Pt resides alone. He uses a cane to ambulate and has a L foot medi shoe. He does not drive. He gets to [place] with his cousin. Smoking Status: Current every day smoker Past Alcohol Use History: Daily, Occasional Additional Past Alcohol Use History / Comment(s): Pt started smoking in 1977 and is a ppd smoker. He states he drinks less than 14 drinks per week but used to drink heavier. Past Drug Use History: None Reported, Marijuana - Past Family History Mother Family Medical History: Diabetes Mellitus, Deep Vein Thrombosis (DVT) Medications and Allergies Home Medications Medication Instructions Recorded Confirmed Type FLUoxetine HCL [PROzac] 20 mg PO DAILY 03/26/15 09/05/17 History Levothyroxine Sodium [Synthroid] 25 mcg PO DAILY 03/26/15 09/05/17 History Apixaban [Eliquis] 5 mg PO BID tab 08/29/17 09/05/17 Rx Cephalexin [Keflex] 500 mg PO Q8HR #30 cap 08/29/17 09/05/17 Rx LORazepam [Ativan] 0.5 mg PO Q8HR PRN #20 tab 08/29/17 09/05/17 Rx Metoprolol Tartrate [Lopressor] 25 mg PO TID #90 tab 08/29/17 09/05/17 Rx Pantoprazole [Protonix] 40 mg PO AC-BRKFST #30 tablet. 08/29/17 09/05/17 Rx HYDROcodone/APAP 5-325MG [[place] 1 tab PO Q6HR PRN 09/05/17 09/05/17 History 5-325] Allergies Allergy/AdvReac Type Severity Reaction Status Date / Time No Known Allergies Allergy Verified 09/05/17 10:04 Physical Exam Vitals: Vital Signs Temp Pulse Pulse Resp BP BP Pulse Ox 09/06/17 16:30 71 109/59 80 L 09/06/17 16:15 72 105/63 09/06/17 16:00 71 87/38 09/06/17 15:45 50 L 76/59 09/06/17 15:30 48 L 72/50 09/06/17 15:15 43 L 74/46 09/06/17 15:00 66 09/06/17 14:59 41 L 09/06/17 13:13 20 96 09/06/17 12:36 97.5 F L 62 16 115/72 09/06/17 12:30 16 09/06/17 07:00 97.6 F 74 16 122/81 09/05/17 23:00 99.4 F 60 18 101/67 90 L Intake and Output 09/06/17 09/06/17 09/06/17 06:59 14:59 22:59 Intake Total 200 Balance 200 Intake: Oral 200 Other: # Voids 2 Physical Exam: Revealed a 62-year-old male, in moderate respiratory distress, presently on a nonrebreather mask. HEENT:[Neck is supple.] [No neck masses.] [No thyromegaly.] [No JVD.] Chest: [Diffuse crackles and rhonchi noted bilaterally, symmetrical chest expansion, no chest wall tenderness..] Cardiac Exam: [Bradycardic, Normal S1 and S2, no S3 gallop, no murmur.] Abdomen: [Soft, nontender, no megaly, no rebound, no guarding, normal bowel sounds.] Extremities: [No clubbing, no edema, no cyanosis. Left foot was examined, there is evidence of recent debridement noted on the left big toe, superficial wound noted, the toe seems to be] swollen and edematous. Neurological Exam: [No focal neurologic deficit.] Psychiatric: Blunted mood and affect, cannot fully assess mental status examination. Musculoskeletal: Normal range of motion, no deformities except the swelling noted in the left big toe. And a superficial laceration of the left big toe. Results - Laboratory Findings CBC and BMP: 09/06/17 13:52 09/05/17 10:10 ABG ABG pH 7.22 (7.35-7.45) L 09/06/17 15:40 ABG pCO2 26 mmHg (35-45) L 09/06/17 15:40 ABG pO2 56 mmHg (83-108) L 09/06/17 15:40 ABG O2 Saturation 76.8 % (94-97) L 09/06/17 15:40 Abnormal lab findings: Abnormal Labs 09/05/17 09/05/17 09/06/17 10:10 10:10 12:22 WBC RBC 3.72 L Hgb 10.5 L Hct 33.7 L MCHC Neutrophils # (Manual) Eosinophils # 1.2 H ABG pH ABG pCO2 ABG pO2 ABG HCO3 ABG Total CO2 ABG O2 Saturation Chloride 108 H Carbon Dioxide 20 L Creatinine 1.80 H Glucose 123 H POC Glucose (mg/dL) 154 H Plasma Lactic Acid Jorge ALT 19 L C-Reactive Protein 37.7 H 09/06/17 09/06/17 09/06/17 13:52 13:52 14:26 WBC 12.0 H RBC 3.85 L Hgb 11.0 L Hct 36.0 L MCHC 30.5 L Neutrophils # (Manual) 10.32 H Eosinophils # ABG pH ABG pCO2 ABG pO2 ABG HCO3 ABG Total CO2 ABG O2 Saturation Chloride Carbon Dioxide Creatinine Glucose POC Glucose (mg/dL) 110 H Plasma Lactic Acid Jorge 7.8 H* ALT C-Reactive Protein 09/06/17 09/06/17 14:55 15:40 WBC RBC Hgb Hct MCHC Neutrophils # (Manual) Eosinophils # ABG pH 7.22 L ABG pCO2 26 L ABG pO2 56 L ABG HCO3 11 L ABG Total CO2 12 L ABG O2 Saturation 76.8 L Chloride Carbon Dioxide Creatinine Glucose POC Glucose (mg/dL) 217 H Plasma Lactic Acid Jorge ALT C-Reactive Protein - Diagnostic Findings Chest x-ray: image reviewed (X-ray was reviewed, before and after intubation, suggestive of pulmonary edema, could be cardiogenic or noncardiogenic in nature. ) Assessment and Plan Assessment: Impression: 1 acute hypoxic respiratory failure secondary to acute sepsis and septic shock, most likely source is left big toe cellulitis and gangrene. Strongly suspect noncardiogenic pulmonary edema, ARDS. However the possibility of cardiogenic pulmonary edema is not entirely ruled out, workup is in progress. And that includes echocardiogram, which is pending. 2 acute bradycardia, being addressed by cardiology on consultation. 3 history of underlying coronary artery disease and previous stent placement 4 history of atrial fibrillation, patient has been on eliquis 5 history of underlying COPD, patient is currently a smoker. 6 history of essential hypertension 7 history of depression 8 history of peripheral vessel occlusive disease 9 history of hypothyroidism 10 history of chronic kidney disease stage III from nephrosclerosis. Recommendation: Patient was intubated, will be kept on dopamine for now, fluid boluses were given, antibiotics will be changed to Zosyn and vancomycin for now , we'll follow the sepsis protocol. Patient will be placed on GI prophylaxis. Resume his previous meds except hold any beta blockers. We will continue to follow closely. Patient is critically ill, and family members will be notified about his condition apparently the nurses were having some difficulty reaching close family members. Time with Patient: Greater than 30 (Critical care time is 45 minutes, not including time spent on procedures.)
[2017-09-06] MEDS ORDERED: FUROSEMIDE 10 MG/ML 4 ML VIAL IV STA (17:47)
[2017-09-06] MEDS: PIPERACILLIN-TAZOBACTAM 3.375 GM in DEXTROSE/WATER 1 50ML.BAG IVPB SCH ×2 (17:56→23:49)
[2017-09-06 18:03] LABS: Glucose,Whole Blood 139 mg/dL (75-99)
[2017-09-06] MEDS: PANTOPRAZOLE 40 MG/10 ML VIAL IVP SCH (18:24)
[2017-09-06] MEDS: DOPamine DRIP 800 MG in DEXTROSE/WATER 1 500ML.BAG IV SCH (18:25)
--- NOTE | 2017-09-06 18:43 | ECHOF ---
Referral Reason:bradycardia, MEASUREMENTS -------- HEIGHT: 180.3 cm WEIGHT: 73.5 kg BP: 103/62 IVSd: 1.0 cm (0.6 - 1.1) LVIDd: 5.7 cm (3.9 - 5.3) LVPWd: 1.0 cm (0.6 - 1.1) IVSs: 1.4 cm LVIDs: 3.5 cm LVPWs: 1.6 cm FINDINGS -------- Sinus rhythm. This was a technically adequate study. Limited Study for assessment of left ventricular function and pericardial effusion. Previous echo performed 08-28-17 The left ventricular size is normal. There is borderline concentric left ventricular hypertrophy. Overall left ventricular systolic function is normal with, an EF between 60 - 65 %. There is no pericardial effusion. CONCLUSIONS -------- 1. Sinus rhythm. 2. This was a technically adequate study. 3. Limited Study for assessment of left ventricular function and pericardial effusion. 4. Previous echo performed 08-28-17 5. The left ventricular size is normal. 6. There is borderline concentric left ventricular hypertrophy. 7. Overall left ventricular systolic function is normal with, an EF between 60 - 65 %. 8. There is no pericardial effusion. NANNY CAREGIVER: Herson Cuenca RDCS
[2017-09-06] MEDS ORDERED: ATROPINE SULFATE 0.1 MG/ML 10ML SYRINGE ONE (19:00)
[2017-09-06] MEDS ORDERED: SODIUM CHLORIDE 0.9% 1,000 ML BAG ONE (19:00)
[2017-09-06] MEDS ORDERED: SODIUM CHLORIDE 0.9% 2,000 ML IV ONE (19:45)
[2017-09-06 19:58] LABS: Albumin 3.5 g/dL (3.5-5.0); Calcium 8.2 mg/dL (8.4-10.2); Potassium 4.3 mmol/L (3.5-5.1); Total Bilirubin 0.8 mg/dL (0.2-1.3); Total Protein 7.4 g/dL (6.3-8.2)
[2017-09-06 20:30] LABS: Phosphorus 4.2 mg/dL (2.5-4.5)
[2017-09-06] MEDS ORDERED: NOREPINEPHRIN 16 MG-0.9%NS PMX 16 MG/250 ML ML IV SCH (21:00)
[2017-09-06] MEDS ORDERED: Magnesium Replacement Protocol 1 EACH MISC MISCELLANE PRN (21:00)
[2017-09-06] MEDS: MAGNESIUM SULFATE-D5W PMX 1 GM in DEXTROSE/WATER 1 100ML.BAG IVPB SCH ×2 (21:42→22:27)
[2017-09-06 21:43] LABS: Creatine Kinase MB 0.8 ng/mL (0.0-2.4); Troponin I 0.028 ng/mL (0.000-0.034)
--- NOTE | 2017-09-06 22:04 | CONS ---
CONSULTATION DATE OF SERVICE: 09/06/2017. REASON FOR CONSULTATION: Left big toe and 2nd toe infection. HISTORY OF PRESENT ILLNESS: The patient is a 62-year-old -[place]itan[place] male who was recently admitted to the facility, where the patient did have a wound to the left big toe as a result of a trauma by hitting the end of the table. The patient at that time was evaluated. He did not have any fever or elevated white count. He did have cultures obtained from the wound, which by the time of his discharge were no growth. The patient was subsequently discharged on oral Keflex. The patient saw his primary care physician in the office and apparently the patient did have a image obtained which did reveal a fracture and the patient was complaining of pain in his left foot area and the patient was advised to go back to the hospital. The patient did have x-rays repeated at this facility, which shows no acute fracture, dislocation in the left foot with moderate diffuse soft tissue swelling persist. The patient has been started on vancomycin, was admitted to the medical floor. I did evaluate the patient and at the time the foot was noticed to be cold. The pain he was complaining on the left foot area for the last few days Prior to coming to the hospital more of a dull aching pain 4-5 out of 10 and no radiation He did have some ulceration, mostly with moist skin which was cleaned out at bedside with a purulent material and the RN was advised to dress the wound with Aquacel Silver. Subsequently the patient is becoming less responsive. He was noticed to be bradycardic with a heart rate of 40 and a systolic of 70. The patient was transferred to the ICU, where the patient got intubated to protect his airways. Per discussion with the RN, the patient noted to have significant secretion coming out through the ET and the patient did have a chest x-ray which did show moderately severe pulmonary edema. REVIEW OF SYSTEMS: CONSTITUTIONAL: Positive for weakness and fever. EYES: No complaint. ENT: No complaint. RESPIRATORY: As per HPI. CARDIOVASCULAR: No complaint. GENITOURINARY: No complaint. GASTROINTESTINAL: No complaint. MUSCULOSKELETAL: As per HPI. INTEGUMENTARY: As per HPI. PSYCHOLOGICAL: No complaint. ENDOCRINE: No complaint. NEUROLOGIC: No complaint. PAST MEDICAL HISTORY: Significant for the coronary disease, COPD, hypertension, hyperlipidemia, SD, hypothyroidism. PAST SURGICAL HISTORY: PTCA with stent, abdominal aortogram with bilateral runoff. SOCIAL HISTORY: Current everyday smoker, more than 30 pack years smoking. Also positive for drinking and marijuana use. FAMILY HISTORY: Mother with history of diabetes and DVT. ALLERGIES: No known drug allergies. MEDICATION: Currently include the patient is on: 1. [place]. 2. Dopamine. 3. Prozac. 4. Synthroid. 5. Ativan. 6. Nicotine patch. 7. Levophed. 8. Protonix. 9. Pip/tazobactam. 10.Propofol. EXAMINATION: Blood pressure is 95/64 with a pulse of 137, temperature 97.5. He is 100% on the vent. General description is a middle-aged male lying in bed in no distress. HEENT shows no pallor. No scleral icterus. Mucous membranes dry. No pharyngeal erythema or thrush NECK: No thyromegaly. Trachea is central LUNGS: Unlabored breathing. Decreased breath sounds at the bases. No wheeze. HEART: S1, S2. Regular rate and rhythm. No murmur ABDOMEN: Soft. No tenderness. No guarding or rigidity. No organomegaly EXTREMITIES: Left foot is cold. Some malodor to the 1st and 2nd toes, painful to touch. The skin came off was very macerated, underlying good granulation tissue. No slough tissue or any purulence. NEUROLOGIC: Awake, alert, oriented x3. Mood and affect normal. LABS: Hemoglobin is 11, white count of 12 with a BUN of 28, creatinine 2.14. X-rays of foot with no fracture with a chest x-ray showing possible CHF. DIAGNOSTIC IMPRESSION: Patient admitted to the hospital with left foot pain and the patient did have a trauma to the left big toe with wound, traumatic. He did have cultures on last visit which by the time of discharge were negative. Subsequently, anaerobic gram- positive. He has been treated with oral Keflex. Apparently the patient did have an x-ray at the PCP's office that did raise the possibility of fracture for which he was sent back to the ER. Now looking at his foot it is cold; however, no different purulence was noticed at the time of removal of the skin. Not likely an overwhelming cellulitis or sepsis with concurrent pulmonary decompensation more likely due to his cardiac etiology, as the patient was noticed to be bradycardic, hypotensive, going into ventilator-dependent respiratory failure. The patient did have strong history of coronary artery disease with a question of possible aspiration pneumonitis. PLAN: 1. Blood culture has been obtained. Will follow as well as the sputum culture. 2. Cardiac enzymes serial. 3. Zosyn has been added that should cover both aspiration pneumonitis and the left foot cellulitis 4. We will follow up on the clinical condition and cultures to further adjust medication if needed. Thank you for this consultation. Will follow this patient along with you. MMYUNL / IJN: [id number] / SABINE
[2017-09-06] MEDS: PROPOFOL 1,000 MG in EMPTY BAG 1 BAG IV SCH (22:28)
--- NOTE | 2017-09-06 22:28 | PCN ---
PROCEDURE NOTE PROCEDURE PERFORMED: Intubation/endotracheal intubation. PREOPERATIVE DIAGNOSES: Acute hypoxic respiratory failure secondary to sepsis and profound metabolic acidosis. POSTOPERATIVE DIAGNOSES: Acute hypoxic respiratory failure secondary to sepsis and profound metabolic acidosis. ANESTHESIA: The patient was given 4 mg of Versed, 4 mg of morphine, and 75 mg of succinylcholine. PROCEDURE: The patient was placed in a supine position, the head was placed in a position, and using a glide scope, I was able to visualize the vocal cords, and I was able to insert an endotracheal tube with a stylet through the vocal cords. Then, the stylet was removed. The endotracheal tube was advanced down to the subglottic area, and the cuff was inflated. There was adequate placement of the endotracheal tube by doing CO2 monitor, end-tidal CO2 monitor, and by listening to the lungs bilaterally. Chest x-ray was ordered postoperatively. The endotracheal tube was a size 8.0. Again, no evidence of any immediate complications. MMODL / IJN: [id number] /
--- NOTE | 2017-09-06 22:34 | PCN ---
PROCEDURE NOTE PROCEDURE PERFORMED: Placement of the right femoral triple-lumen catheter. PREOPERATIVE DIAGNOSES: 1. Acute respiratory failure. 2. Sepsis. 3. Hypotension. ANESTHESIA: Used 2 mL 1% lidocaine. DESCRIPTION OF PROCEDURE: The right groin was prepared in a sterile fashion, and drapes were applied. The right femoral vein was easily cannulated medial to the right femoral artery, and a guidewire was placed. The area was dilated over the guidewire using that vascular dilator. Then that dilator was removed and a triple-lumen catheter was inserted over the guidewire, and the guidewire was removed. Good blood flow was noted in the 3 different ports of the triple-lumen catheter. The line was secured using 3.0 silk sutures. No evidence of any immediate complications. MMODL / IJN: [id number] /
--- NOTE | 2017-09-06 22:40 | PCN ---
PROCEDURE NOTE PROCEDURE: Placement of a left radial arterial line. PREOPERATIVE DIAGNOSIS: Acute respiratory failure, hypotension, acute sepsis. POSTOPERATIVE DIAGNOSIS: Acute respiratory failure, hypotension, acute sepsis. ANESTHESIA USED: None deployed. PROCEDURE DESCRIPTION: The patient was placed in supine position. The left wrist was placed on a table and tape was used to secure and stabilize the wrist on the table. The left radial artery was palpated, cannulated, and a guidewire was placed. A Cook catheter was inserted over the guidewire, and the guidewire was removed. Good blood flow and good waveform noted. Line was secured using 3.0 silk sutures. Procedure was well tolerated and no evidence of any immediate complications. MMODL / IJN: [id number] /
--- NOTE | 2017-09-07 00:19 | P.PN ---
Progress Note - Text Progress Note Date: 09/06/17 DATE OF SERVICE: 09/06/2017 PRESENTING COMPLAINT: Left foot pain HISTORY OF PRESENT ILLNESS: 62-year-old male with a recent hospital stay on 08/26/2017 discharged on 2017 due to kicking a table and sustaining an injury to the left big toe. Cultures at that time showed anaerobic gram-positive cocci. Dr. Rico discharge the patient on Keflex. Followed up with his family physician complaining of more toe pain. X-rays done at that time did not show any fracture but when sent to the ER there was a question about fracture and having more pain. Admitted for left foot pain. INTERVAL HISTORY: 09/06/2017: Lying in bed, appears comfortable. Low bit sleepy just had some pain medication. Vital signs stable, no acute overnight events. Pain is fairly well controlled. Ambulatory in the room with a cane. Tolerating his diet eating about 50% of his meal. Last BM prior to admission. REVIEW OF SYSTEMS: Done for constitutional ,cardiovascular, GI, pulmonary with relevant findings as above. CURRENT MEDICATIONS [place], Prozac, Synthroid, Ativan, nicotine patch, Protonix, PHYSICAL EXAM VITAL SIGNS: Temperature 97.6, pulse 74, respiratory rate 16, blood pressure 122/81, oxygen saturation 96% on room air. GENERAL APPEARANCE: Lying in bed, not in distress appears comfortable. HENT: Normocephalic, JVD not raised. Mass not palpable. Oral cavity normal, external appearance of ears and nose normal. EYES:Pupils equal. Conjunctiva normal. RESPIRATORY: Respiratory effort normal. Lungs mild wheezing and diminished breath sounds to auscultation. CARDIOVASCULAR: First and second sounds normal. No edema. ABDOMEN: Soft. Liver and spleen not palpable. No tenderness. No mass palpable. PSYCHIATRY: Alert and oriented x3. Mood and affect normal. MUSCULOSKELETAL: Left toes in a dressing. No drainage noted INVESTIGATIONS: LABS: White blood cell count 7.6, hemoglobin 10.5, chloride 108, BUN 19, creatinine 1.80 ASSESSMENT: -Left toe injury with increasing pain, suspicious for fracture, per x-ray in ER and orthopedic surgery no acute fracture of the left foot. -Acute on chronic left foot infection secondary to injury sustained a few weeks ago, worsening -Persistent atrial fibrillation chronically on Eliquis. -Chronic kidney disease stage III probably from nephrosclerosis. -Chronic obstructive pulmonary disease in an current smoker. -Chronic nicotine dependence patient is a cigarette smoker. -Coronary artery disease prior history of stent. -Hypothyroidism. -Essential hypertension. -Hyperlipidemia. -Peripheral artery disease. -Depression, anxiety, not otherwise specified. PLAN: Continue current antibiotic therapy in the form of Keflex with a consult to infectious disease. Orthopedics has ruled out that there is no fracture and no need for any other interventions from them. Will defer any further care and treatment to vascular surgery and infectious disease. Plan of care discussed the patient at bedside he is in agreement. We will follow closely. SAP BW CONSULTANT statement: Patient was seen and examined by nurse practitioner Xiao Glass and all elements of the case discussed with attending Dr. Alston
[2017-09-07 04:34] LABS: Basophils % (A) 0 %; Eosinophils % (A) 0 %; HCT 29.3 % (39.0-53.0); Lymphocytes # (A) 1.3 k/uL (1.0-4.8); Lymphocytes % (A) 15 %; MCH 28.2 pg (25.0-35.0); MCHC 32.4 g/dL (31.0-37.0); Mean Platelet Volume 10.1; Monocytes # (A) 0.2 k/uL (0-1.0); Monocytes % (A) 2 %; Neutrophils # (A) 7.4 k/uL (1.3-7.7); Neutrophils % (A) 82 %; Platelet Count 263 k/uL (150-450); RBC 3.37 m/uL (4.30-5.90)
[2017-09-07 04:46] LABS: Albumin 2.8 g/dL (3.5-5.0); Calcium 7.9 mg/dL (8.4-10.2); HGB 9.5 gm/dL (13.0-17.5); MCV 87.1 fL (80.0-100.0); Potassium 4.2 mmol/L (3.5-5.1); Total Bilirubin 0.5 mg/dL (0.2-1.3)
[2017-09-07] MEDS: PROPOFOL 1,000 MG in EMPTY BAG 1 BAG IV SCH ×4 (05:40→20:57)
--- NOTE | 2017-09-07 05:49 | PN ---
PROGRESS NOTE DATE OF SERVICE: 09/06/2017 ATTENDING NOTE: Patient seen and examined by me. I discussed with nurse practitioner, Jessijung. The patient presented with left big toe worsening infection. Culture seems to be unlikely. Today patient is sitting up, feels a bit tired. Also being treated for COPD. PHYSICAL EXAMINATION: On examination, temperature 97.5, pulse 62, respirations 16, blood pressure 115/72, pulse ox 96% on room air. LUNGS: Decreased breath sounds, wheezing. Left foot swollen and skin breakdown of the proximal part of the left big toe. INVESTIGATIONS: White count 12, hemoglobin 11.0. ASSESSMENT: 1. Left foot cellulitis, failed outpatient treatment. 2. Persistent atrial fibrillation. 3. Chronic kidney disease. 4. Other medical problems. PLAN: Continue medication and treatment plan. Antibiotics per Dr. Rico. Care was discussed with the patient. Slow to respond. MMODL / IJN: [id number] /
[2017-09-07 08:14] LABS: ABG Base Excess 3.9 mmol/L; ABG HCO3 28 mmol/L (21-25); ABG PCO2 38 mmHg (35-45); ABG PH 7.47 (7.35-7.45); ABG PO2 >400 mmHg (83-108); ABG TCO2 29 mmol/L (19-24)
[2017-09-07] MEDS: LEVOTHYROXINE 25 MCG TAB PO SCH (08:31)
[2017-09-07] MEDS: NICOTINE 21MG/24HR PATCH TRANSDERM SCH (08:31)
[2017-09-07] MEDS: PIPERACILLIN-TAZOBACTAM 3.375 GM in DEXTROSE/WATER 1 50ML.BAG IVPB SCH ×3 (08:31→23:39)
[2017-09-07] MEDS: CHLORHEXIDINE GLUCONATE 15 ML CUP MUCOUS MEM SCH ×2 (08:31→20:57)
[2017-09-07] MEDS: FLUoxetine HCL 20 MG CAP PO SCH (08:31)
[2017-09-07] MEDS: PANTOPRAZOLE 40 MG/10 ML VIAL IVP SCH (08:32)
--- NOTE | 2017-09-07 08:48 | XR ---
EXAMINATION TYPE: XR chest 1V portable DATE OF EXAM: 09/07/2017 COMPARISON: Prior chest x-ray 09/06/2017 HISTORY: Intubated TECHNIQUE: Single frontal view of the chest is obtained. FINDINGS: Endotracheal tube and NG tube are overlying appropriate positions. There is some improveme nt in aeration as compared to prior exam, bilateral airspace disease persists greater on the right. N o evident pneumothorax or pleural effusion. There are overlying cardiac leads and the patient is rota gordon. Heart size may be accentuated by technique. IMPRESSION: Interval improvement in pulmonary edema.
[2017-09-07] MEDS ORDERED: HEPARIN SODIUM,PORCINE 5,000 UNIT/ML 1 ML VIAL IV ONE (09:43)
[2017-09-07] MEDS: HEPARIN SOD,PORK IN 0.45% NACL 25,000 UNIT in 0.45% NACL 1 500ML.BAG IV SCH (10:00)
[2017-09-07] MEDS: DOPamine DRIP 800 MG in DEXTROSE/WATER 1 500ML.BAG IV SCH (10:20)
[2017-09-07] MEDS ORDERED: SODIUM CHLORIDE 0.9% 1,000 ML IV ONE (10:22)
[2017-09-07 10:28] LABS: INR 1.3 (<1.2); Partial Thromboplastin Time 24.4 sec (22.0-30.0); Prothrombin Time 12.6 sec (9.0-12.0)
[2017-09-07] MEDS: DILTIAZEM 125 MG in SODIUM CHLORIDE 0.9% 100 ML IV SCH ×2 (11:09→23:39)
--- NOTE | 2017-09-07 11:27 | P.NPCON ---
History of Present Illness - Reason for Consult acute renal failure - History of Present Illness Reason for consultation: Acute kidney injury on chronic kidney disease History of present illness: Patient is a 62-year-old male seen in renal consultation for acute kidney injury on chronic kidney disease. Patient has chronic kidney disease stage III secondary to nephrosclerosis with baseline creatinine in the range of 1.3-1.4. His creatinine was 1.8 on admission and is up at 2.3 today. Patient presented to the hospital with gangrenous toe. However yesterday he became quite unresponsive and had a cardiopulmonary arrest. He underwent CPR but no shocks were delivered. He was noted to be quite bradycardic. He was subsequently intubated and transferred to the intensive care unit. He was started on dopamine but then went into A. fib with RVR. He is currently on 6 mics of levo fed and also on Cardizem drip running at 5 mL an hour. He is also on a bicarbonate drip running at 50 mL an hour. He is currently intubated and sedated. His urine output was around 20 mL an hour this morning and is currently receiving 1 L bolus of IV fluids. Vital signs are stable. General: The patient appeared well nourished and normally developed. Currently intubated and sedated. HEENT: Head exam is unremarkable. Neck is without jugular venous distension. LUNGS: Lungs are clear to auscultation and percussion. Breath sounds decreased. HEART: Rate and Rhythm are regular. First and second heart sounds normal. No murmurs, rubs or gallops. ABDOMEN: Abdominal exam reveals normal bowel sounds. Non-tender and non- distended. No evidence of peritonitis. EXTREMITITES: No clubbing, cyanosis, or edema. Past Medical History Past Medical History: Coronary Artery Disease (CAD), COPD, Hyperlipidemia, Hypertension, Myocardial Infarction (MD), Thyroid Disorder Additional Past Medical History / Comment(s): Pt recently admitted to [facility] with AFib RVR, L foot cellulitis/pain and eosinophilia undetermined etiology/ to follow up with Dr. Winters. Other Hx: Chronic kidney disease stage III, hypothyroid, PAD, diverticular dx, past ETOH abuse. Last Myocardial Infarction Date:: 09/2011 History of Any Multi-Drug Resistant Organisms: None Reported Past Surgical History: Heart Catheterization With Stent Additional Past Surgical History / Comment(s): colonoscopy, abdominal aortogram with bilateral run-offs. Past Anesthesia/Blood Transfusion Reactions: No Reported Reaction Date of Last Stent Placement:: 09/2011 Past Psychological History: Anxiety Additional Psychological History / Comment(s): Pt resides alone. He uses a cane to ambulate and has a L foot medi shoe. He does not drive. He gets to appts with his cousin. Smoking Status: Current every day smoker Past Alcohol Use History: Daily, Occasional Additional Past Alcohol Use History / Comment(s): Pt started smoking in 1977 and is a ppd smoker. He states he drinks less than 14 drinks per week but used to drink heavier. Past Drug Use History: None Reported, Marijuana - Past Family History Mother Family Medical History: Diabetes Mellitus, Deep Vein Thrombosis (DVT) Medications and Allergies Home Medications Medication Instructions Recorded Confirmed Type FLUoxetine HCL [PROzac] 20 mg PO DAILY 03/26/15 09/05/17 History Levothyroxine Sodium [Synthroid] 25 mcg PO DAILY 03/26/15 09/05/17 History Apixaban [Eliquis] 5 mg PO BID tab 08/29/17 09/05/17 Rx Cephalexin [Keflex] 500 mg PO Q8HR #30 cap 08/29/17 09/05/17 Rx LORazepam [Ativan] 0.5 mg PO Q8HR PRN #20 tab 08/29/17 09/05/17 Rx Metoprolol Tartrate [Lopressor] 25 mg PO TID #90 tab 08/29/17 09/05/17 Rx Pantoprazole [Protonix] 40 mg PO AC-BRKFST #30 tablet. 08/29/17 09/05/17 Rx HYDROcodone/APAP 5-325MG [[place] 1 tab PO Q6HR PRN 09/05/17 09/05/17 History 5-325] Allergies Allergy/AdvReac Type Severity Reaction Status Date / Time No Known Allergies Allergy Verified 09/05/17 10:04 Physical Exam Vitals: Vital Signs Temp Pulse Pulse Resp BP BP Pulse Ox 09/07/17 11:00 140 H 18 97 09/07/17 10:00 139 H 18 91/73 100 09/07/17 09:00 138 H 18 91/73 100 09/07/17 08:00 97.8 F 133 H 18 109/75 100 09/07/17 07:00 141 H 18 109/75 100 09/07/17 06:00 82 18 100 09/07/17 05:00 128 H 18 99 09/07/17 04:00 98 F 130 H 18 89/63 99 09/07/17 03:44 18 09/07/17 03:30 124 H 18 89/63 100 09/07/17 03:00 131 H 18 89/63 100 09/07/17 02:30 118 H 18 89/63 100 09/07/17 02:00 137 H 18 98 09/07/17 01:30 117 H 18 100 09/07/17 01:00 134 H 18 100 09/07/17 00:30 131 H 18 100 09/07/17 00:00 98.2 F 119 H 18 100 09/06/17 23:58 18 09/06/17 23:30 121 H 100 09/06/17 23:00 131 H 18 100 09/06/17 22:30 66 95/64 100 09/06/17 22:00 123 H 18 95/64 100 09/06/17 21:30 127 H 95/64 100 09/06/17 21:00 125 H 18 95/64 100 09/06/17 20:45 137 H 95/64 100 09/06/17 20:30 142 H 146/69 100 09/06/17 20:15 69 134/66 100 09/06/17 20:00 97.5 F L 76 62 18 155/67 100 09/06/17 19:45 75 18 87/76 100 09/06/17 19:30 62 18 140/68 100 09/06/17 19:15 68 18 141/63 99 09/06/17 19:00 64 18 143/68 98 09/06/17 18:45 65 18 146/71 98 09/06/17 18:30 65 122/65 94 L 09/06/17 18:15 74 124/66 09/06/17 18:00 74 18 125/66 94 L 09/06/17 17:45 68 18 105/60 96 09/06/17 17:30 68 18 96/56 95 09/06/17 17:15 77 12 84/46 95 09/06/17 17:00 96.3 F L 67 12 92/49 95 09/06/17 16:45 66 24 96/53 93 L 09/06/17 16:30 71 109/59 80 L 09/06/17 16:15 72 62 18 105/63 09/06/17 16:00 71 87/38 94 L 09/06/17 15:45 50 L 76/59 09/06/17 15:30 48 L 72/50 09/06/17 15:15 43 L 74/46 09/06/17 15:00 66 09/06/17 14:59 41 L 09/06/17 13:13 20 96 09/06/17 12:36 97.5 F L 62 16 115/72 09/06/17 12:30 16 Intake and Output 09/06/17 09/07/17 09/07/17 22:59 06:59 14:59 Intake Total 2780.789 710.365 354.371 Output Total 1575 547 70 Balance 1205.789 163.365 284.371 Intake: IV 422.5 610.0 260 .9% @kvo 60 160 60 Dextrose 5% in Water 1, 150 400 150 000 ml @ 50 mls/hr IV . Q23H AJ with Sodium Bicarb (1 Meq/ml) 150 ml Rx#:[id number] Magnesium Sulfate-D5w Pmx 200 1 gm In Dextrose/Water 1 100ml.bag @ 100 mls/hr IVPB Q1H AJ Rx#: [id number] Piperacillin-Tazobactam 3 12.5 50.0 50 .375 gm In Dextrose/Water 1 50ml.bag @ 12.5 mls/hr IVPB Q8HR AJ Rx#: [id number] Intake, IV Titration 2358.289 100.365 94.371 Amount DOPamine DRIP 800 mg In 320.789 Dextrose/Water 1 500ml. bag @ 10 MCG/KG/MIN 27.55 mls/hr IV .Q18H9M AJ Rx #:[id number] Norepinephrin 16 mg-0.9% 0 Ns Pmx 16 mg In 250 ml @ Titrate IV .Q0M AJ Rx#: [id number] Piperacillin-Tazobactam 3 37.5 .375 gm In Dextrose/Water 1 50ml.bag @ 12.5 mls/hr IVPB Q8HR AJ Rx#: [id number] Propofol 1,000 mg In 100.365 94.371 Empty Bag 1 bag @ Titrate IV .Q0M [facility] Rx#: [id number] Sodium Chloride 0.9% 2, 2000 000 ml @ 999 mls/hr IV . Q2H1M ONE Rx#:[id number] Output: Gastric Drainage 75 Urine 1575 472 70 Other: Voiding Method Indwelling Catheter Indwelling Catheter Weight 73.482 kg 78.1 kg ABP, PAP, CO, CI - Last 8 Hours Arterial Blood Pressure 100/64 Arterial Blood Pressure 94/55 Arterial Blood Pressure 88/50 Arterial Blood Pressure 118/59 Arterial Blood Pressure 96/61 Arterial Blood Pressure 108/67 Arterial Blood Pressure 97/65 Arterial Blood Pressure 100/61 Arterial Blood Pressure 113/66 Results - Lab Results Most recent lab results ABG pH 7.47 (7.35-7.45) H 09/07/17 08:12 ABG pCO2 38 mmHg (35-45) 09/07/17 08:12 ABG pO2 >400 mmHg (83-108) H 09/07/17 08:12 ABG HCO3 28 mmol/L (21-25) H 09/07/17 08:12 ABG O2 Saturation 100.0 % (94-97) H 09/07/17 08:12 Calcium 7.9 mg/dL (8.4-10.2) L 09/07/17 04:25 Phosphorus 5.0 mg/dL (2.5-4.5) H 09/07/17 04:25 Magnesium 2.3 mg/dL (1.6-2.3) 09/07/17 04:25 09/07/17 04:25 09/07/17 04:25 Assessment and Plan Plan: Assessment: #1. Acute kidney injury secondary to ischemic ATN secondary to cardiopulmonary arrest and hemodynamic instability. Creatinine up at 2.3 today. His prior urinalysis was benign. #2. Atrial fibrillation with RVR currently maintained on Cardizem drip. #3. Chronic kidney disease stage III secondary to nephrosclerosis with baseline creatinine in the range of 1.3-1.4. #4. Status post cardiopulmonary arrest on 09/06/2017. #5. Hypotension requiring 6 mics of levofed at this time. #6. Transaminitis likely due to shock liver. Plan: Discontinue sodium bicarbonate drip. Start normal saline at 50 mL an hour for maintenance fluids. Agree with 1 L bolus. Continue to monitor renal function and urine output. No urgent need for renal placement therapy at this time. Thank you for the consultation. I will continue to follow the patient with you during his hospital stay.
[2017-09-07] MEDS: SODIUM CHLORIDE 0.9% 1,000 ML IV SCH (11:33)
--- NOTE | 2017-09-07 11:48 | P.PN ---
Subjective Progress Note Date: 09/07/17 Principal diagnosis: Acute hypoxic respiratory failure secondary to septic shock This is a 62-year-old -[place] male with history of chronic atrial fibrillation, chronic kidney disease stage III, coronary artery disease and previous stent placement, hypertension, hypothyroidism, patient was recently admitted to the hospital on 08/26/2017 and he was discharged on 08/26. Apparently the patient was admitted with left toe cellulitis secondary to trauma related to picking at table. Cultures showed anaerobic gram-positive cocci at the time. Patient was seen by infectious disease on consultation, and he was discharged home on Keflex. X-rays of the toe at the time failed to show any fracture, but the patient continued to have pain no documented fever, no chills, no shortness of breath. The patient was admitted actually yesterday, workup included x-rays of the foot, and there was diffuse soft tissue swelling, but no fracture. Venous Doppler of the left lower extremity showed no evidence of deep vein thrombosis. Patient was seen by orthopedics on consultation, and the left foot was noted to be malodorous, edematous, left toe with superficial wound, patient underwent debridement of the wound, he was felt to have a gangrenous toe. And severe peripheral vessel occlusive disease. Around noontime today, patient was noted to be hypotensive, bradycardic, and he was developing worsening shortness of breath with congestion. Patient was placed on non-rebreather mask, transferred to the intensive care unit, placed on dopamine, because of his bradycardia which looked like a high degree AV block. Seen by cardiology on consultation, and felt this is mostly related to his undergoing sepsis, recommended that we continue dopamine, no need for temporary or permanent pacemaker insertion. Not to mention the patient received his usual dose of metoprolol earlier today. I saw the patient in the ICU, and I reviewed his chest x-ray which showed clearly evidence of pulmonary edema or possibly a picture of ARDS, although the possibility of cardiogenic pulmonary edema is not entirely ruled out. ABG on a nonrebreather mask showed pO2 of 56 pCO2 of 26 pH of 7.22. His lactic acid was 7.8. And his CBC from earlier today showed WBC count of 12.0, it was 7.6 yesterday. Shortly after my evaluation, patient was intubated, placed on mechanical ventilation, he is presently on a tidal volume of 450, assist control rate of 16, FiO2 of 100%, and PEEP of 8. Follow-up chest x-ray post intubation is pending. After intubation, central line was placed because the patient will require most likely more pressors and higher doses of dopamine possibly and will need to be placed on propofol drip. In the meantime I have recommended that the patient is placed on the sepsis protocol, fluids were given earlier, and a stat echocardiogram was ordered to evaluate his new finding of pulmonary edema which may be noncardiogenic or possibly cardiogenic in nature. The patient himself is a very poor historian, most of the information was obtained from the chart itself. Presently the patient is on 15 mcg/kg/m of dopamine, he is also on antibiotics in the form of vancomycin and I will go ahead and add Zosyn. Patient was reevaluated today on 09/07/2017, remains on mechanical ventilation, however the FiO2 is down to 50%, and his PEEP is down to 5, the rest of the vent settings are the same. Chest x-ray showed significant improvement in what seemed to be an noncardiogenic pulmonary edema. His ABG showed a pO2 of above 400 pCO2 of 38 pH of 7.47. WBC count is 9 hemoglobin is 9.5. Basic metabolic profile is normal, BUN is 32 creatinine is 2.3 to consistent with acute kidney injury from his septic shock and his liver enzymes were also noted to be significantly elevated, and that is again related to his shock liver. Last night, the patient went into atrial fibrillation with RVR, hence dopamine was discontinued, and patient was switched to norepinephrine instead for hypotension. Remains on levo fed, patient is still in atrial fibrillation with RVR, hence I recommended adding Cardizem today. Cardiology is following, however no consultation, and no progress note on the chart so far. Dr. Warren was earlier seeing the patient and discussing his condition with his cousin at bedside. No specific recommendation of the chart regarding his atrial fibrillation and RVR, and his initial hypotension with bradycardia. Echocardiogram was done, relatively unremarkable. Chest x-ray was reviewed and showed a significant improvement in his interstitial edema noted yesterday before and after intubation. Lactic acid came down last night, however his urine output seems to be marginal, and I recommended more fluids to be given today. I have also recommended a Cardizem drip at 5 mg per hour with 10 mg bolus. Hoping to control his heart rate with Cardizem and fluid boluses. Objective - Vital Signs Vital signs: Vital Signs Temp 97.8 F 09/07/17 08:00 Pulse 140 H 09/07/17 11:00 Resp 18 09/07/17 11:00 BP 91/73 09/07/17 10:00 Pulse Ox 97 09/07/17 11:00 Intake & Output 09/06/17 09/07/17 09/07/17 18:59 06:59 18:59 Intake Total 2163.3 1327.854 359.635 Output Total 440 1682 70 Balance 1723.3 -354.146 289.635 Weight 73.482 kg 78.1 kg Intake: IV 1032.5 260 .9% @kvo 220 60 Dextrose 5% in Water 1, 550 150 000 ml @ 50 mls/hr IV . Q23H AJ with Sodium Bicarb (1 Meq/ml) 150 ml Rx#:[id number] Magnesium Sulfate-D5w Pmx 200 1 gm In Dextrose/Water 1 100ml.bag @ 100 mls/hr IVPB Q1H [facility] Rx#: [id number] Piperacillin-Tazobactam 3 62.5 50 .375 gm In Dextrose/Water 1 50ml.bag @ 12.5 mls/hr IVPB Q8HR [facility] Rx#: [id number] Intake, IV Titration 2163.3 295.354 99.635 Amount DOPamine DRIP 800 mg In 138.3 182.489 Dextrose/Water 1 500ml. bag @ 10 MCG/KG/MIN 27.55 mls/hr IV .Q18H9M [facility] Rx #:[id number] Norepinephrin 16 mg-0.9% 0 Ns Pmx 16 mg In 250 ml @ Titrate IV .Q0M [facility] Rx#: [id number] Piperacillin-Tazobactam 3 25.0 12.5 .375 gm In Dextrose/Water 1 50ml.bag @ 12.5 mls/hr IVPB Q8HR [facility] Rx#: [id number] Propofol 1,000 mg In 100.365 99.635 Empty Bag 1 bag @ Titrate IV .Q0M [facility] Rx#: [id number] Sodium Chloride 0.9% 2, 2000 000 ml @ 999 mls/hr IV . Q2H1M ONE Rx#:[id number] Output: Gastric Drainage 75 Urine 440 1607 70 Other: Voiding Method Indwelling Catheter Indwelling Catheter ABP, PAP, CO, CI - Last Documented Arterial Blood Pressure 100/64 - Exam Physical Exam: Revealed a 62-year-old male, on mechanical ventilation, endotracheal tube and nickolas gastric tube are intact. HEENT:[Neck is supple.] [No neck masses.] [No thyromegaly.] [No JVD.] Chest: [Minimal crackles noted at the bases bilaterally. symmetrical chest expansion, no chest wall tenderness..] Cardiac Exam: [Irregular irregular, tachycardic, Normal S1 and S2, no S3 gallop , no murmur.] Abdomen: [Soft, nontender, no megaly, no rebound, no guarding, normal bowel sounds.] Extremities: [No clubbing, no edema, no cyanosis. Left foot was examined, there is evidence of recent debridement noted on the left big toe, superficial wound noted, the toe seems to be] swollen and edematous. Neurological Exam: Patient was awakened off propofol, and he was alert oriented and followed instructions seems to be mentally intact. Psychiatric: Blunted affect, otherwise unremarkable. Musculoskeletal: Normal range of motion, no deformities except the swelling noted in the left big toe. And a superficial laceration of the left big toe. - Labs CBC & Chem 7: 09/07/17 04:25 09/07/17 04:25 Labs: Abnormal Lab Results - Last 24 Hours (Table) 09/06/17 09/06/17 09/06/17 Range/Units 12:22 13:52 13:52 WBC 12.0 H (3.8-10.6) k/uL RBC 3.85 L (4.30-5.90) m/uL Hgb 11.0 L (13.0-17.5) gm/dL Hct 36.0 L (39.0-53.0) % MCHC 30.5 L (31.0-37.0) g/dL Neutrophils # (Manual) 10.32 H (1.3-7.7) k/uL PT (9.0-12.0) sec INR (<1.2) ABG pH (7.35-7.45) ABG pCO2 (35-45) mmHg ABG pO2 (83-108) mmHg ABG HCO3 (21-25) mmol/L ABG Total CO2 (19-24) mmol/L ABG O2 Saturation (94-97) % BUN (9-20) mg/dL Creatinine (0.66-1.25) mg/dL Glucose (74-99) mg/dL POC Glucose (mg/dL) 154 H (75-99) mg/dL Plasma Lactic Acid Jorge 7.8 H* (0.7-2.0) mmol/L Calcium (8.4-10.2) mg/dL Phosphorus (2.5-4.5) mg/dL AST (17-59) U/L ALT (21-72) U/L Alkaline Phosphatase (38-126) U/L Total Protein (6.3-8.2) g/dL Albumin (3.5-5.0) g/dL 09/06/17 09/06/17 09/06/17 Range/Units 14:26 14:55 15:40 WBC (3.8-10.6) k/uL RBC (4.30-5.90) m/uL Hgb (13.0-17.5) gm/dL Hct (39.0-53.0) % MCHC (31.0-37.0) g/dL Neutrophils # (Manual) (1.3-7.7) k/uL PT (9.0-12.0) sec INR (<1.2) ABG pH 7.22 L (7.35-7.45) ABG pCO2 26 L (35-45) mmHg ABG pO2 56 L (83-108) mmHg ABG HCO3 11 L (21-25) mmol/L ABG Total CO2 12 L (19-24) mmol/L ABG O2 Saturation 76.8 L (94-97) % BUN (9-20) mg/dL Creatinine (0.66-1.25) mg/dL Glucose (74-99) mg/dL POC Glucose (mg/dL) 110 H 217 H (75-99) mg/dL Plasma Lactic Acid Jorge (0.7-2.0) mmol/L Calcium (8.4-10.2) mg/dL Phosphorus (2.5-4.5) mg/dL AST (17-59) U/L ALT (21-72) U/L Alkaline Phosphatase (38-126) U/L Total Protein (6.3-8.2) g/dL Albumin (3.5-5.0) g/dL 09/06/17 09/06/17 09/06/17 Range/Units 17:21 18:00 19:30 WBC (3.8-10.6) k/uL RBC (4.30-5.90) m/uL Hgb (13.0-17.5) gm/dL Hct (39.0-53.0) % MCHC (31.0-37.0) g/dL Neutrophils # (Manual) (1.3-7.7) k/uL PT (9.0-12.0) sec INR (<1.2) ABG pH 7.21 L (7.35-7.45) ABG pCO2 (35-45) mmHg ABG pO2 73 L (83-108) mmHg ABG HCO3 18 L (21-25) mmol/L ABG Total CO2 (19-24) mmol/L ABG O2 Saturation 87.3 L (94-97) % BUN 28 H (9-20) mg/dL Creatinine 2.14 H (0.66-1.25) mg/dL Glucose 206 H (74-99) mg/dL POC Glucose (mg/dL) 139 H (75-99) mg/dL Plasma Lactic Acid Jorge (0.7-2.0) mmol/L Calcium 8.2 L (8.4-10.2) mg/dL Phosphorus (2.5-4.5) mg/dL AST 1758 H (17-59) U/L ALT 1039 H (21-72) U/L Alkaline Phosphatase 138 H (38-126) U/L Total Protein (6.3-8.2) g/dL Albumin (3.5-5.0) g/dL 09/07/17 09/07/17 09/07/17 Range/Units 04:25 04:25 08:12 WBC (3.8-10.6) k/uL RBC 3.37 L (4.30-5.90) m/uL Hgb 9.5 L D (13.0-17.5) gm/dL Hct 29.3 L (39.0-53.0) % MCHC (31.0-37.0) g/dL Neutrophils # (Manual) (1.3-7.7) k/uL PT (9.0-12.0) sec INR (<1.2) ABG pH 7.47 H (7.35-7.45) ABG pCO2 (35-45) mmHg ABG pO2 >400 H (83-108) mmHg ABG HCO3 28 H (21-25) mmol/L ABG Total CO2 29 H (19-24) mmol/L ABG O2 Saturation 100.0 H (94-97) % BUN 32 H (9-20) mg/dL Creatinine 2.32 H (0.66-1.25) mg/dL Glucose 137 H (74-99) mg/dL POC Glucose (mg/dL) (75-99) mg/dL Plasma Lactic Acid Jorge (0.7-2.0) mmol/L Calcium 7.9 L (8.4-10.2) mg/dL Phosphorus 5.0 H (2.5-4.5) mg/dL AST 3024 H (17-59) U/L ALT 1827 H (21-72) U/L Alkaline Phosphatase (38-126) U/L Total Protein 6.0 L (6.3-8.2) g/dL Albumin 2.8 L (3.5-5.0) g/dL 09/07/17 Range/Units 10:10 WBC (3.8-10.6) k/uL RBC (4.30-5.90) m/uL Hgb (13.0-17.5) gm/dL Hct (39.0-53.0) % MCHC (31.0-37.0) g/dL Neutrophils # (Manual) (1.3-7.7) k/uL PT 12.6 H (9.0-12.0) sec INR 1.3 H (<1.2) ABG pH (7.35-7.45) ABG pCO2 (35-45) mmHg ABG pO2 (83-108) mmHg ABG HCO3 (21-25) mmol/L ABG Total CO2 (19-24) mmol/L ABG O2 Saturation (94-97) % BUN (9-20) mg/dL Creatinine (0.66-1.25) mg/dL Glucose (74-99) mg/dL POC Glucose (mg/dL) (75-99) mg/dL Plasma Lactic Acid Jorge (0.7-2.0) mmol/L Calcium (8.4-10.2) mg/dL Phosphorus (2.5-4.5) mg/dL AST (17-59) U/L ALT (21-72) U/L Alkaline Phosphatase (38-126) U/L Total Protein (6.3-8.2) g/dL Albumin (3.5-5.0) g/dL Microbiology - Last 24 Hours (Table) 09/06/17 17:27 Gram Stain - Preliminary Sputum Sputum Culture - Preliminary 09/05/17 10:10 Blood Culture - Preliminary Blood No Growth after 24 hours Assessment and Plan Assessment: Impression: 1 acute hypoxic respiratory failure secondary to acute sepsis and septic shock, most likely source is left big toe cellulitis and gangrene. Strongly suspect noncardiogenic pulmonary edema, ARDS. 2 acute bradycardia, on presentation, however the patient is now having atrial fibrillation with RVR. 3 history of underlying coronary artery disease and previous stent placement 4 history of chronic atrial fibrillation, on eliquis 5 history of underlying COPD, patient is currently a smoker. 6 history of essential hypertension 7 history of depression 8 history of peripheral vessel occlusive disease 9 history of hypothyroidism 10 history of chronic kidney disease stage III from nephrosclerosis. 11 acute cellulitis and gangrene of the left big toe. Status post debridement. Recommendation: Keep the patient on mechanical ventilation, address his interstitial support, continue antibiotics, control the heart rate with Cardizem , use norepinephrine for low blood pressure, increase fluids, titrate FiO2 accordingly, adjust the vent settings on a daily basis, daily sedation holidays , and assessing mental status and weaning trials. Discussed his condition with his first cousin at bedside. Critical care time is 40 minutes. Time with Patient: Greater than 30
--- NOTE | 2017-09-07 12:25 | CONS ---
CONSULTATION CHIEF COMPLAINT: Cardiorespiratory failure. Reddy is a 62-year-old gentleman who was on the surgical floor, yesterday became unresponsive and was brought to the ICU following a code, intubated and on a ventilator. Patient has history of atrial fibrillation, chronic kidney disease, COPD, coronary artery disease, hypertension, dyslipidemia. Patient was recently in the hospital and was discharged home on August 29, 2017. Patient has history of injury to the left big toe and had infection of the same. He was treated by the Infectious Disease doctor and came back in primarily because he was complaining of more toe pain. From there he was admitted to hospital. The exact etiology for the deterioration on the floor is unclear. It is not explained by the bradycardia. He has been in chronic atrial fibrillation. The heart rates were in the 40s and 50s at the time the event happened. He became profoundly hypotensive, subsequently and had been treated with intravenous dopamine, developed atrial fibrillation with rapid ventricular rate that had been changed to Levophed. At the time of my evaluation this morning, his hypotension has improved. He is in atrial fibrillation with poorly controlled ventricular rate. His renal functions have worsened. PAST MEDICAL HISTORY: Significant for chronic atrial fibrillation and hypothyroidism. MEDICATIONS: At home included Protonix, Lopressor, Synthroid, [place], Prozac, and Eliquis. There is history of coronary artery disease with angioplasty and also has peripheral vascular disease. Medications prior to coming in include Keflex, Protonix, Lopressor, Synthroid, Irwin, Ativan, Prozac and Eliquis. There are no known drug allergies. FAMILY HISTORY: Negative for premature coronary artery disease. SOCIAL HISTORY AND REVIEW OF SYSTEMS: I am unable to obtain from the patient. On exam, patient is intubated and on vent. Heart rate is around 130s per minute. Blood pressure is 100/60, respiratory rate is 18. Chest exam reveals diminished air entry at the bases. Heart exam reveals first and second heart sounds, irregular rhythm and a systolic murmur at the apex. Abdomen is soft. Exam of the extremities did not reveal any edema. Peripheral pulses are palpable. Patient had been started on intravenous Cardizem and is currently on it. An echocardiogram on this admission revealed normal LV function and no evidence of pericardial effusion. LABS: Show that the potassium is 4.2, creatinine is 2.3. AST and ALT are elevated. Troponin 1 set was drawn and it was 0.028. ASSESSMENT: 1. Status post cardiac respiratory arrest. 2. Chronic atrial fibrillation with poorly-controlled ventricular rate. 3. History of injury to the foot with possible gangrene, managed by Vascular Surgery. Patient is on intravenous Cardizem which I am going to continue. I cannot start him on amiodarone given the elevated liver enzymes and the recent acute liver injury. Not a candidate for digoxin at this time given the renal failure, so blood pressure permitting, Cardizem and beta blockers are the answer. 4. Prognosis guarded. MMODL / IJN: [id number] /
[2017-09-07] MEDS: HYDROcodone/APAP 5-325MG 1 EACH TAB PO PRN (15:05)
[2017-09-07] MEDS: CEPHALEXIN 500 MG CAP PO SCH (15:22)
[2017-09-07] MEDS: METOPROLOL TARTRATE 25 MG TAB PO SCH (15:22)
--- NOTE | 2017-09-07 15:53 | PN ---
PROGRESS NOTE This is a 62-year-old gentleman who has left big toe gangrene changes. Patient was scheduled to have angiogram done today. We found out that patient had a respiratory arrest and the patient was transferred to the Intensive Care Unit with intubation. Patient was seen in his room. Patient is on vent. His foot is viable and has pulse revealed by the Doppler. Left foot big toe has a dry gangrene. PLAN: We will wait until patient is stable for angiogram. We will continue with local wound care using Medihoney and IV antibiotic. MMODL / IJN: [id number] /
[2017-09-07] MEDS: HEPARIN SODIUM,PORCINE 5,000 UNIT/ML 1 ML VIAL IV PRN (18:14)
[2017-09-07] MEDS: AMIODARONE 450 MG in DEXTROSE 5% IN WATER 250 ML IV SCH ×2 (18:22)
--- NOTE | 2017-09-07 20:14 | PN ---
PROGRESS NOTE DATE OF SERVICE: 09/07/2017. REASON FOR FOLLOWUP: 1. Left foot wound and cellulitis. 2. Possible aspiration pneumonia. INTERVAL HISTORY: The patient remains to be intubated on the vent. He is still requiring low-dose pressor support in addition to the Cardizem for his atrial fibrillation. FiO2 is down by 50%, sedated and unable to provide history. No significant diarrhea per the nursing staff. EXAMINATION: Blood pressure 107/54 with a pulse of 104, temperature of 98.8. He is 99% on 50% FiO2. General description is a middle-aged male lying in bed in no distress. RESPIRATORY SYSTEM: Unlabored breathing. Decreased breath sounds in the bases. No wheeze. HEART: S1, S2. Regular rate and rhythm. No tenderness. Left foot first and second toe remains to be dry with no slough tissue. Hard to determine any redness. LABS: Hemoglobin 9.5, white count 9.0 with a BUN of 32, creatinine is 2.32. Sputum culture currently pending. Blood culture so far negative. DIAGNOSTIC IMPRESSION AND PLAN: Patient left big toe and 2nd toe wound with secondary cellulitis. Source currently to acute respiratory failure, vent dependent, could be related to fluid overload as the patient did have overall improvement after diuretics. He did have sputum culture obtained which is currently pending. Also have a elevated liver enzymes could be related to the liver congestion. Hepatitis panel will be ordered. Continue supportive care. MMODL / IJN: [id number] /
--- NOTE | 2017-09-07 20:28 | P.PN ---
Progress Note - Text Progress Note Date: 09/07/17 DATE OF SERVICE: 09/07/2017 PRESENTING COMPLAINT: Intubation, critical illness HISTORY OF PRESENT ILLNESS: 62-year-old male with a recent hospital stay on 08/26/2017 discharged on 2017 due to kicking a table and sustaining an injury to the left big toe. Cultures at that time showed anaerobic gram-positive cocci. Dr. Rico discharge the patient on Keflex. Followed up with his family physician complaining of more toe pain. X-rays done at that time did not show any fracture but when sent to the ER there was a question about fracture and having more pain. Admitted for left foot pain. On 09/06/2017 patient complained of not feeling good and woozy. Vitals were taken, blood sugar evaluated no abnormalities found additional lab work ordered and telemetry placed on the patient. RN received call from telemetry monitoring regarding bradycardic episode, patient was found slumped over and unresponsive. CODE BLUE initiated patient transferred to the ICU and was subsequently intubated , on dopamine, propofol and. Antibiotics per sepsis protocol. INTERVAL HISTORY: 09/07/2017: Patient evaluated in the ICU, remains on mechanical ventilation FiO2 currently at 50% PEEP is down to 5 with ventilator settings remaining at. Continues on a propofol infusion along with Levophed for hypotension. Patient remains in atrial fibrillation with RVR Cardizem drip initiated. Invasive lines include a right groin triple-lumen central line, a right radial arterial line and Beaulieu catheter, and endo-and oral tracheal tube. 09/06/2017: Lying in bed, appears comfortable. Low bit sleepy just had some pain medication. Vital signs stable, no acute overnight events. Pain is fairly well controlled. Ambulatory in the room with a cane. Tolerating his diet eating about 50% of his meal. Last BM prior to admission. REVIEW OF SYSTEMS: Unable to assess due to current condition, sedated and intubated CURRENT MEDICATIONS [place], amiodarone, chlorhexidine gluconate diltiazem, Prozac, heparin drip Synthroid, Ativan, nicotine patch, Levophed, Protonix, Zosyn PHYSICAL EXAM VITAL SIGNS: Temperature 97.6, pulse 74, respiratory rate 16, blood pressure 122/81, oxygen saturation 96% on room air. GENERAL APPEARANCE: Lying in bed, on mechanical ventilation not in distress appears comfortable. HENT: Normocephalic, JVD not raised. Mass not palpable. Oral cavity normal with endotracheal and orogastric tubes in place, external appearance of ears and nose normal. EYES:Pupils equal. Conjunctiva normal. RESPIRATORY: Respiratory effort normal. Lungs mild wheezing and diminished breath sounds to auscultation. CARDIOVASCULAR: Irregular rhythm . No edema. ABDOMEN: Soft. Liver and spleen not palpable. No tenderness. No mass palpable. PSYCHIATRY: Currently sedated and intubated unable to assess NEUROLOGICAL: Sedation holiday performed patient was able to follow all commands and oriented. MUSCULOSKELETAL: Left toes in a dressing. No drainage noted EXTREMITIES: Right radial arterial line in place, right groin femoral line triple-lumen in place. INVESTIGATIONS: LABS: Hemoglobin 9.5, INR 1.3, PTT 24.4, AB.47/38/pO2 greater than 400/HCO3 28/CO2 29/base excess 3.9. BUN 32, creatinine 2.32, CHEST X-ray: Interval improvement in pulmonary edema ASSESSMENT: -Left foot cellulitis, failed outpatient treatment -Acute hypoxic respiratory failure secondary to sepsis and profound metabolic acidosis, requiring an intubation and mechanical ventilation -Acute kidney injury secondary to ischemic acute tubular necrosis secondary to cardiopulmonary arrest and hemodynamic instability. -Transaminitis likely due to shock liver -Acute on chronic left foot infection secondary to injury sustained a few weeks ago, worsening -Persistent atrial fibrillation chronically on Eliquis. -Chronic kidney disease stage III probably from nephrosclerosis, baseline creatinine in the range of 1.3-1.4. -Chronic obstructive pulmonary disease in an current smoker. -Chronic nicotine dependence patient is a cigarette smoker. -Coronary artery disease prior history of stent. -Hypothyroidism. -Essential hypertension. -Hyperlipidemia. -Peripheral artery disease. -Depression, anxiety, not otherwise specified. -Heparin monitoring PLAN: Patient to remain intubated overnight, we'll reevaluate in the morning regarding possibility of extubation. Continue to perform sedation holidays daily. IV Cardizem to continue along with amiodarone for atrial fibrillation. Continue antibiotics and normal saline for maintenance. Patient prognosis guarded plan of care discussed at the bedside we will continue to follow closely. SENIOR PROGRAM PLANNER statement: Patient was seen and examined by nurse practitioner Xiao Glass and all elements of the case discussed with attending Dr. Alston
[2017-09-07] MEDS: HYDROmorphone 4 MG/ML 1 ML SYRINGE IVP PRN (21:01)
[2017-09-08 04:56] LABS: Basophils # (A) 0.1 k/uL (0-0.2); Basophils % (A) 1 %; Eosinophils # (A) 0.4 k/uL (0-0.7); Eosinophils % (A) 4 %; HGB 9.7 gm/dL (13.0-17.5); Hypochromasia Slight; Lymphocytes # (A) 1.8 k/uL (1.0-4.8); Lymphocytes % (A) 19 %; MCH 28.3 pg (25.0-35.0); MCHC 32.2 g/dL (31.0-37.0); MCV 87.8 fL (80.0-100.0); Mean Platelet Volume 9.7; Monocytes # (A) 0.3 k/uL (0-1.0); Monocytes % (A) 3 %; Neutrophils # (A) 6.7 k/uL (1.3-7.7); Neutrophils % (A) 70 %; Platelet Count 251 k/uL (150-450); RBC 3.41 m/uL (4.30-5.90); WBC 9.5 k/uL (3.8-10.6)
[2017-09-08 05:06] LABS: Albumin 2.5 g/dL (3.5-5.0); Calcium 7.3 mg/dL (8.4-10.2); Phosphorus 3.2 mg/dL (2.5-4.5); Potassium 3.7 mmol/L (3.5-5.1); Total Bilirubin 0.3 mg/dL (0.2-1.3); Total Protein 5.6 g/dL (6.3-8.2)
[2017-09-08] MEDS: AMIODARONE 450 MG in DEXTROSE 5% IN WATER 250 ML IV SCH ×4 (06:19→11:14)
[2017-09-08] MEDS ORDERED: POTASSIUM CHLORIDE ORAL LIQUID 40 MEQ/30 ML CUP PO ONE (07:00)
--- NOTE | 2017-09-08 07:21 | PN ---
PROGRESS NOTE DATE OF SERVICE: 09/07/2017. PRESENTING COMPLAINT: Respiratory collapse. INTERVAL HISTORY: This is a patient who was recently discharged from the hospital, readmitted with infection of the left big toe. Yesterday, patient became bradycardic and a CODE was called. The patient was taken to ICU, intubated. Initially was put on a dopamine drip, propofol, antibiotics were initiated. Patient is currently on the ventilator with FiO2 of 50% and PEEP of 5. Drips include propofol, Levophed and tube feeding at 10 mL an hour. Patient initially was bradycardiac went into atrial fibrillation and also was put on a Cardizem drip. REVIEW OF SYSTEMS: Patient is intubated. CURRENT MEDICATIONS: Reviewed that include IV Zosyn, propofol, Levophed, Synthroid, IV heparin, Cardizem. PHYSICAL EXAMINATION: Temperature 97.8, pulse 133, respiratory 18, blood pressure 100/75, pulse ox 100% on the ventilator. EYES: Pupils equal, conjunctivae normal. HEENT: Endotracheal tube in place. Normal cephalic. NECK: JVD unable to assess. Mass not palpable. Respiratory effort increased. Lungs decreased breath sounds. Some crackles. HEART: Sounds irregular. No edema. ABDOMEN: Soft, nontender. Liver and spleen not palpable. No mass palpable. NEUROLOGICAL: No facial asymmetry. EXTREMITIES: Left big toe cellulitis. Some decrease in pulses. INVESTIGATIONS: White count 9, hemoglobin 9.5. Blood gas , potassium 4.2, BUN 32, creatinine 2.32 up from 1.8. Chest x-ray had showed some pulmonary edema and possibly some infiltrates. ASSESSMENT: 1. Acute left big toe cellulitis having failed outpatient treatment, possibly the cause of sepsis. 2. Acute hypoxic respiratory failure. Patient now on ventilator support to sepsis. 3. Severe metabolic acidosis. 4. Acute kidney injury secondary probably to acute tubular necrosis secondary likely due sepsis and dynamic mismatch. 5. Acute shocked liver, with AST gone up to 3024 and ALT to 1827. 6. Hypoalbuminemia likely from acute phase reactant. 7. Persistent atrial fibrillation with a rapid ventricular rate uncontrolled, currently on IV Cardizem drip and Eliquis. 8. Chronic kidney disease stage III probably from nephrosclerosis, baseline creatinine around 1.3. 9. Chronic obstructive pulmonary disease in a current smoker. 10.Chronic nicotine dependence, patient is a cigarette smoker. 11.Coronary artery disease with prior history of stent. 12.Hypothyroidism. 13.Essential hypertension. 14.Hyperlipidemia. 15.Peripheral artery disease. 16.Depression and anxiety, not otherwise specified. 17.IV heparin monitoring. PLAN: Overall prognosis is guarded. Elevated 2D echocardiogram showed preserved LV function. Continue with antibiotics, pressure support, IV Cardizem, IV heparin, ventilator support. Follow with my colleagues. MMODL / IJN: [id number] /
[2017-09-08] MEDS: LEVOTHYROXINE 25 MCG TAB PO SCH (08:00)
[2017-09-08] MEDS: PIPERACILLIN-TAZOBACTAM 3.375 GM in DEXTROSE/WATER 1 50ML.BAG IVPB SCH ×2 (08:00→15:16)
[2017-09-08] MEDS: NICOTINE 21MG/24HR PATCH TRANSDERM SCH (08:00)
[2017-09-08] MEDS: CHLORHEXIDINE GLUCONATE 15 ML CUP MUCOUS MEM SCH (08:01)
[2017-09-08] MEDS: SODIUM CHLORIDE 0.9% 1,000 ML IV SCH (08:02)
[2017-09-08] MEDS: PANTOPRAZOLE 40 MG/10 ML VIAL IVP SCH (08:03)
[2017-09-08] MEDS: FLUoxetine HCL 20 MG CAP PO SCH (08:03)
[2017-09-08 08:07] LABS: ABG Base Excess 1.1 mmol/L; ABG HCO3 25 mmol/L (21-25); ABG Oxygen Saturation 95.4 % (94-97); ABG PCO2 34 mmHg (35-45); ABG PH 7.47 (7.35-7.45); ABG PO2 82 mmHg (83-108); ABG TCO2 26 mmol/L (19-24)
--- NOTE | 2017-09-08 08:47 | XR ---
EXAMINATION TYPE: XR chest 1V portable DATE OF EXAM: 09/08/2017 COMPARISON: 09/07/2017 HISTORY: Ventilatory dependent respiratory failure. TECHNIQUE: Single frontal view of the chest is obtained. FINDINGS: Endotracheal tube and enteric tube are unchanged in position in comparison to the prior ex am. Fenestrated portion of the endotracheal tube is just below the gastroesophageal junction. There i s minimal improved aeration of the right suprahilar region and right upper lung. Right perihilar and infrahilar greater than left airspace disease is again noted. There is now partial obscuration of the retrocardiac airspace with poor delineation of the left hemidiaphragm, not seen on the prior exam. R ight costophrenic angle is not included on the image and cannot be evaluated. Cardiac silhouette is s table from the prior and upper limits of normal. Osseous structures appear intact. IMPRESSION: Minimal improved aeration of the right upper lung and right suprahilar region. Stable perihilar opaci ties, right greater than left. New retrocardiac opacity. Findings suggest shifting atelectasis althou gh multifocal pneumonia is also possible.
--- NOTE | 2017-09-08 09:48 | PN ---
PROGRESS NOTE A 62-year-old gentleman who was admitted to ICU with acute onset respiratory failure and developed atrial fibrillation with rapid ventricular rate. The patient converted back to sinus rhythm on IV amiodarone. This morning, he remains in stable sinus rhythm. Blood pressure has improved. Still intubated and on vent. The patient has possible gangrene of the left great toe and is awaiting surgery by vascular surgeon. PHYSICAL EXAMINATION: On exam, heart rate is 56 beats per minute, blood pressure is 91/50, respiratory rate is 18. Chest exam reveals good air entry bilaterally. Heart exam reveals first and second heart sounds. No gallop. Exam of extremities reveals chronic changes in pigmentation over both lower extremities and gangrene of the left great toe. LABS: Labs show a hemoglobin of 9.7, platelet count is 250. Potassium is 3.7. BUN is 30, creatinine is 2.1. His AST, ALT were elevated on this admission, probably elevated when he had the cardiorespiratory arrest and the peak AST was 3000, but is coming down to 988. ASSESSMENT: 1. Atrial fibrillation with rapid ventricular rate. 2. Status post cardiorespiratory arrest. 3. Acute elevation of the liver enzymes, probably secondary to hypotension. 4. Acute renal insufficiency. PLAN: I am going to continue the patient on a maintenance dose of IV amiodarone at this time and hopefully stop it tomorrow and put him on oral Lasix if his liver enzymes keep coming down. The patient is on IV heparin and once he is extubated and stable, we can switch him to the Eliquis that he was on at home. MMODL / IJN: [id number] /
[2017-09-08] MEDS: HEPARIN SOD,PORK IN 0.45% NACL 25,000 UNIT in 0.45% NACL 1 500ML.BAG IV SCH (11:16)
[2017-09-08] MEDS: HYDROmorphone 4 MG/ML 1 ML SYRINGE IVP PRN ×2 (11:51→20:32)
--- NOTE | 2017-09-08 12:38 | P.PN ---
Subjective Progress Note Date: 09/08/17 Principal diagnosis: Acute hypoxic respiratory failure secondary to septic shock This is a 62-year-old -[place] male with history of chronic atrial fibrillation, chronic kidney disease stage III, coronary artery disease and previous stent placement, hypertension, hypothyroidism, patient was recently admitted to the hospital on 08/26/2017 and he was discharged on 08/26. Apparently the patient was admitted with left toe cellulitis secondary to trauma related to picking at table. Cultures showed anaerobic gram-positive cocci at the time. Patient was seen by infectious disease on consultation, and he was discharged home on Keflex. X-rays of the toe at the time failed to show any fracture, but the patient continued to have pain no documented fever, no chills, no shortness of breath. The patient was admitted actually yesterday, workup included x-rays of the foot, and there was diffuse soft tissue swelling, but no fracture. Venous Doppler of the left lower extremity showed no evidence of deep vein thrombosis. Patient was seen by orthopedics on consultation, and the left foot was noted to be malodorous, edematous, left toe with superficial wound, patient underwent debridement of the wound, he was felt to have a gangrenous toe. And severe peripheral vessel occlusive disease. Around noontime today, patient was noted to be hypotensive, bradycardic, and he was developing worsening shortness of breath with congestion. Patient was placed on non-rebreather mask, transferred to the intensive care unit, placed on dopamine, because of his bradycardia which looked like a high degree AV block. Seen by cardiology on consultation, and felt this is mostly related to his undergoing sepsis, recommended that we continue dopamine, no need for temporary or permanent pacemaker insertion. Not to mention the patient received his usual dose of metoprolol earlier today. I saw the patient in the ICU, and I reviewed his chest x-ray which showed clearly evidence of pulmonary edema or possibly a picture of ARDS, although the possibility of cardiogenic pulmonary edema is not entirely ruled out. ABG on a nonrebreather mask showed pO2 of 56 pCO2 of 26 pH of 7.22. His lactic acid was 7.8. And his CBC from earlier today showed WBC count of 12.0, it was 7.6 yesterday. Shortly after my evaluation, patient was intubated, placed on mechanical ventilation, he is presently on a tidal volume of 450, assist control rate of 16, FiO2 of 100%, and PEEP of 8. Follow-up chest x-ray post intubation is pending. After intubation, central line was placed because the patient will require most likely more pressors and higher doses of dopamine possibly and will need to be placed on propofol drip. In the meantime I have recommended that the patient is placed on the sepsis protocol, fluids were given earlier, and a stat echocardiogram was ordered to evaluate his new finding of pulmonary edema which may be noncardiogenic or possibly cardiogenic in nature. The patient himself is a very poor historian, most of the information was obtained from the chart itself. Presently the patient is on 15 mcg/kg/m of dopamine, he is also on antibiotics in the form of vancomycin and I will go ahead and add Zosyn. Patient was reevaluated today on 09/07/2017, remains on mechanical ventilation, however the FiO2 is down to 50%, and his PEEP is down to 5, the rest of the vent settings are the same. Chest x-ray showed significant improvement in what seemed to be an noncardiogenic pulmonary edema. His ABG showed a pO2 of above 400 pCO2 of 38 pH of 7.47. WBC count is 9 hemoglobin is 9.5. Basic metabolic profile is normal, BUN is 32 creatinine is 2.3 to consistent with acute kidney injury from his septic shock and his liver enzymes were also noted to be significantly elevated, and that is again related to his shock liver. Last night, the patient went into atrial fibrillation with RVR, hence dopamine was discontinued, and patient was switched to norepinephrine instead for hypotension. Remains on levo fed, patient is still in atrial fibrillation with RVR, hence I recommended adding Cardizem today. Cardiology is following, however no consultation, and no progress note on the chart so far. Dr. Warren was earlier seeing the patient and discussing his condition with his cousin at bedside. No specific recommendation of the chart regarding his atrial fibrillation and RVR, and his initial hypotension with bradycardia. Echocardiogram was done, relatively unremarkable. Chest x-ray was reviewed and showed a significant improvement in his interstitial edema noted yesterday before and after intubation. Lactic acid came down last night, however his urine output seems to be marginal, and I recommended more fluids to be given today. I have also recommended a Cardizem drip at 5 mg per hour with 10 mg bolus. Hoping to control his heart rate with Cardizem and fluid boluses. Patient was reevaluated today on 09/08/2017, remains on mechanical ventilation, however the patient was noted to be arousable, comfortable, in no distress even when he was placed on a pressure support and CPAP mode of mechanical ventilation. Chest x-ray showed minimal improvement in the aeration of the right upper lobe and right suprahilar area. Left side has significantly improved. Labs were all reviewed, ABG showed a pO2 of 82 pCO2 of 34 pH of 7.47. Urine output is excellent. PTT is 47. Patient had to be placed on amiodarone last night, and he converted to sinus rhythm, but he continues to have significant sinus arrhythmias. He is presently off Cardizem and off norepinephrine. Blood pressure seems to be stable. BUN remains elevated at 30 creatinine is 2.10 liver enzymes are improving but still elevated. Blood cultures and sputum cultures are pending, so far the blood cultures are negative. Objective - Vital Signs Vital signs: Vital Signs Temp 99.4 F 09/08/17 08:00 Pulse 90 09/08/17 11:00 Resp 22 09/08/17 11:00 BP 94/53 09/08/17 11:00 Pulse Ox 97 09/08/17 11:00 Intake & Output 09/07/17 09/08/17 09/08/17 18:59 06:59 18:59 Intake Total 2141.865 1825.832 703.204 Output Total 422 580 290 Balance 5030.308 0069.832 413.204 Weight 78.1 kg 80.1 kg 80.1 kg Intake: IV 520 672.5 200 .9% @kvo 170 10 Dextrose 5% in Water 1, 250 000 ml @ 50 mls/hr IV . Q23H AJ with Sodium Bicarb (1 Meq/ml) 150 ml Rx#:[id number] Piperacillin-Tazobactam 3 100 62.5 .375 gm In Dextrose/Water 1 50ml.bag @ 12.5 mls/hr IVPB Q8HR AJ Rx#: [id number] Sodium Chloride 0.9% 1, 600 200 000 ml @ 50 mls/hr IV . Q20H AJ Rx#:[id number] Intake, IV Titration 1621.865 723.332 413.204 Amount Amiodarone 450 mg In 265.191 17.809 Dextrose 5% in Water 250 ml @ 1 MG/MIN 33.33 mls/ hr IV .Q7H31M [facility] Rx#: [id number] Diltiazem 125 mg In 6.083 114.250 Sodium Chloride 0.9% 100 ml @ 10 MG/HR 10 mls/hr IV .K20H40Y [facility] Rx#: [id number] Heparin Sod,Pork in 0.45% 154.605 345.395 NaCl 25,000 unit In 0.45 % NaCl 1 500ml.bag @ 12 UNITS/KG/HR 18.74 mls/hr IV .Q24H [facility] Rx#: [id number] Norepinephrin 16 mg-0.9% 203.891 Ns Pmx 16 mg In 250 ml @ Titrate IV .Q0M [facility] Rx#: [id number] Piperacillin-Tazobactam 3 50 .375 gm In Dextrose/Water 1 50ml.bag @ 12.5 mls/hr IVPB Q8HR [facility] Rx#: [id number] Propofol 1,000 mg In 161.177 100 Empty Bag 1 bag @ Titrate IV .Q0M [facility] Rx#: [id number] Sodium Chloride 0.9% 1, 300 40 000 ml @ 50 mls/hr IV . Q20H [facility] Rx#:[id number] Sodium Chloride 0.9% 1, 1000 000 ml @ 999 mls/hr IV . Q1H1M [facility] Rx#:[id number] Tube Feeding 340 90 Other 90 Output: Gastric Drainage 50 10 Urine 422 530 280 Other: Voiding Method Indwelling Catheter Indwelling Catheter Indwelling Catheter ABP, PAP, CO, CI - Last Documented Arterial Blood Pressure 112/63 - Exam Physical Exam: Revealed a 62-year-old male, on mechanical ventilation, endotracheal tube and nickolas gastric tube are intact. HEENT:[Neck is supple.] [No neck masses.] [No thyromegaly.] [No JVD.] Chest: [Minimal crackles noted at the bases bilaterally. symmetrical chest expansion, no chest wall tenderness..] Cardiac Exam: [Irregular irregular, tachycardic, Normal S1 and S2, no S3 gallop , no murmur.] Abdomen: [Soft, nontender, no megaly, no rebound, no guarding, normal bowel sounds.] Extremities: [No clubbing, no edema, no cyanosis. Left foot was examined, there is evidence of recent debridement noted on the left big toe, superficial wound noted, the toe seems to be] swollen and edematous. Neurological Exam: Patient was awakened off propofol, and he was alert oriented and followed instructions seems to be mentally intact. Psychiatric: Blunted affect, otherwise unremarkable. Musculoskeletal: Normal range of motion, no deformities except the swelling noted in the left big toe. And a superficial laceration of the left big toe. - Labs CBC & Chem 7: 09/08/17 04:30 09/08/17 04:30 Labs: Abnormal Lab Results - Last 24 Hours (Table) 09/07/17 09/07/17 09/08/17 Range/Units 15:25 23:50 04:30 RBC 3.41 L (4.30-5.90) m/uL Hgb 9.7 L (13.0-17.5) gm/dL Hct 30.0 L (39.0-53.0) % APTT 39.7 H 65.6 H (22.0-30.0) sec ABG pH (7.35-7.45) ABG pCO2 (35-45) mmHg ABG pO2 (83-108) mmHg ABG Total CO2 (19-24) mmol/L BUN (9-20) mg/dL Creatinine (0.66-1.25) mg/dL Glucose (74-99) mg/dL Calcium (8.4-10.2) mg/dL AST (17-59) U/L ALT (21-72) U/L Total Protein (6.3-8.2) g/dL Albumin (3.5-5.0) g/dL 09/08/17 09/08/17 09/08/17 Range/Units 04:30 06:40 08:05 RBC (4.30-5.90) m/uL Hgb (13.0-17.5) gm/dL Hct (39.0-53.0) % APTT 47.3 H (22.0-30.0) sec ABG pH 7.47 H (7.35-7.45) ABG pCO2 34 L (35-45) mmHg ABG pO2 82 L (83-108) mmHg ABG Total CO2 26 H (19-24) mmol/L BUN 30 H (9-20) mg/dL Creatinine 2.10 H (0.66-1.25) mg/dL Glucose 119 H (74-99) mg/dL Calcium 7.3 L (8.4-10.2) mg/dL AST 988 H (17-59) U/L ALT 1429 H (21-72) U/L Total Protein 5.6 L (6.3-8.2) g/dL Albumin 2.5 L (3.5-5.0) g/dL Microbiology - Last 24 Hours (Table) 09/05/17 10:10 Blood Culture - Preliminary Blood No Growth after 72 hours Assessment and Plan Assessment: Impression: 1 acute hypoxic respiratory failure secondary to acute sepsis and septic shock, most likely source is left big toe cellulitis and gangrene. Strongly suspect noncardiogenic pulmonary edema, ARDS. Improving steadily. 2 acute bradycardia, on presentation, went into atrial fibrillation when he was placed on dopamine, presently in sinus rhythm, he is on amiodarone. 3 history of underlying coronary artery disease and previous stent placement 4 history of chronic atrial fibrillation, on eliquis 5 history of underlying COPD, patient is currently a smoker. 6 history of essential hypertension 7 history of depression 8 history of peripheral vessel occlusive disease 9 history of hypothyroidism 10 history of chronic kidney disease stage III from nephrosclerosis. 11 acute cellulitis and gangrene of the left big toe. Status post debridement. Recommendation: Patient will be given a weaning trial, we'll address his weaning parameters, and if the patient continues to do well, may actually extubated the patient today. In the meantime we'll continue antibiotics, and continue the other supportive care measures. Patient remains critically ill, and he will remain in the ICU today, even if extubated. Prognosis remains guarded. We'll continue to follow closely. Await the final report from the microbiology lab. Discussed his condition with his cousin at bedside, critical care time is 35 minutes. Time with Patient: Greater than 30
[2017-09-08] MEDS: DILTIAZEM 125 MG in SODIUM CHLORIDE 0.9% 100 ML IV SCH (13:31)
--- NOTE | 2017-09-08 14:09 | PN ---
PROGRESS NOTE Patient is seen for followup for acute kidney injury. His previous creatinine was about 1.3-1.4 mg/dL. He was initially admitted to the hospital with a gangrenous toe and had developed a cardiopulmonary arrest. Patient was intubated and brought into the ICU. He also had atrial fibrillation with RVR. This morning he has been extubated. He is sitting up in bed. Denies any significant chest pains. He has had good urine output. Serum creatinine is down to 2.1 from 2.3 yesterday. PHYSICAL EXAMINATION: Blood pressure is 107/59, heart rate 78 per minute. He is afebrile. Examination of the heart, S1, S2. Examination of the lungs, bilateral breath sounds are heard. Coarse crackles are heard. Examination of the lower extremities shows no significant edema. SEARCH OPTIMIZATION ANALYST exam is grossly intact. Patient is moving all 4 extremities. LABS: Revealed sodium 140, potassium 3.7, chloride 105, BUN 30, serum creatinine 2.1, AST 988, which is decreasing and ALT 1429, which is also decreasing. Hemoglobin was 9.7. ASSESSMENT: 1. Acute kidney injury secondary to hypotension, hypoperfusion, cardiac arrest, currently nonoliguric with improving renal function. 2. Chronic kidney disease with previous creatinine about 1.3-1.4 mg/dL. A UA will be ordered. Etiology is possibly nephrosclerosis. Patient does not have diabetes. 3. Atrial fibrillation with RVR, currently with controlled ventricular response maintained on amiodarone IV. 4. Hypothyroidism. 5. Left toe cellulitis and gangrene. Cultures growing currently being followed by ID. Patient is maintained on Zosyn. PLAN: Continue with the IV fluids at 50 mL an hour. Repeat labs in a.m. Avoid nephrotoxic agents. MMODL / IJN: [id number] /
[2017-09-08] MEDS: HYDROcodone/APAP 5-325MG 1 EACH TAB PO PRN (20:30)
--- NOTE | 2017-09-08 21:45 | PN ---
PROGRESS NOTE DATE OF SERVICE: 09/08/2017 REASON FOR FOLLOWUP: 1. Left foot wound and cellulitis. 2. Possible aspiration pneumonia. INTERVAL HISTORY: The patient is afebrile, has been extubated. He is breathing comfortably. Denies having any chest pain. Still has some cough, not bringing up any sputum. No nausea, no vomiting. Does still have some pain in the left foot area. No drainage. Wound is dried out. PHYSICAL EXAMINATION: Blood pressure is 120/66 with a pulse of 78, temperature of 98. He is 95% on 4 L nasal cannula. General description is a middle-aged male lying in bed in no distress. RESPIRATORY SYSTEM: Unlabored breathing. Clear to auscultation anteriorly. HEART: S1, S2. Regular rate and rhythm. ABDOMEN: Soft. No tenderness. Left foot toes currently dried out. No drainage noticed. LABS: Hemoglobin 9.7, white count now of 9.5 with a BUN of 30, creatinine 2.10. Sputum has been negative, blood culture negative. DIAGNOSTIC IMPRESSION AND PLAN: Patient with left foot cellulitis with a wound to the first 2 toes with acute vent- dependent respiratory failure, question of fluid overload versus component of aspiration pneumonia. The patient is currently on Zosyn. That will be continued for now. Continue with supportive care. MMODL / IJN: [id number] /
--- NOTE | 2017-09-08 23:23 | P.PN ---
Progress Note - Text Progress Note Date: 09/08/17 DATE OF SERVICE: 09/08/2017 PRESENTING COMPLAINT: Intubation, critical illness HISTORY OF PRESENT ILLNESS: 62-year-old male with a recent hospital stay on 08/26/2017 discharged on 2017 due to kicking a table and sustaining an injury to the left big toe. Cultures at that time showed anaerobic gram-positive cocci. Dr. Rico discharge the patient on Keflex. Followed up with his family physician complaining of more toe pain. X-rays done at that time did not show any fracture but when sent to the ER there was a question about fracture and having more pain. Admitted for left foot pain. On 09/06/2017 patient complained of not feeling good and woozy. Vitals were taken, blood sugar evaluated no abnormalities found additional lab work ordered and telemetry placed on the patient. RN received call from telemetry monitoring regarding bradycardic episode, patient was found slumped over and unresponsive. CODE BLUE initiated patient transferred to the ICU and was subsequently intubated , on dopamine, propofol and. Antibiotics per sepsis protocol. INTERVAL HISTORY: 09/08/2017: Evaluated in the ICU, extubated this morning successfully. No longer requiring propofol or Levophed both have been titrated off. Heart rhythm converted to normal sinus/sinus arrhythmia continued on amiodarone. 09/07/2017: Patient evaluated in the ICU, remains on mechanical ventilation FiO2 currently at 50% PEEP is down to 5 with ventilator settings remaining at. Continues on a propofol infusion along with Levophed for hypotension. Patient remains in atrial fibrillation with RVR Cardizem drip initiated. Invasive lines include a right groin triple-lumen central line, a right radial arterial line and Beaulieu catheter, and endo-and oral tracheal tube. 09/06/2017: Lying in bed, appears comfortable. Low bit sleepy just had some pain medication. Vital signs stable, no acute overnight events. Pain is fairly well controlled. Ambulatory in the room with a cane. Tolerating his diet eating about 50% of his meal. Last BM prior to admission. REVIEW OF SYSTEMS: Unable to assess due to current condition, sedated and intubated CURRENT MEDICATIONS [place], amiodarone, chlorhexidine gluconate diltiazem, Prozac, heparin drip Synthroid, Ativan, nicotine patch, Levophed, Protonix, Zosyn PHYSICAL EXAM VITAL SIGNS: Temperature 97.6, pulse 74, respiratory rate 16, blood pressure 122/81, oxygen saturation 96% on room air. GENERAL APPEARANCE: Lying in bed, on mechanical ventilation not in distress appears comfortable. HENT: Normocephalic, JVD not raised. Mass not palpable. Oral cavity normal with endotracheal and orogastric tubes in place, external appearance of ears and nose normal. EYES:Pupils equal. Conjunctiva normal. RESPIRATORY: Respiratory effort normal. Lungs mild wheezing and diminished breath sounds to auscultation. CARDIOVASCULAR: Irregular rhythm . No edema. ABDOMEN: Soft. Liver and spleen not palpable. No tenderness. No mass palpable. PSYCHIATRY: Currently sedated and intubated unable to assess NEUROLOGICAL: Sedation holiday performed patient was able to follow all commands and oriented. MUSCULOSKELETAL: Left toes in a dressing. No drainage noted EXTREMITIES: Right radial arterial line in place, right groin femoral line triple-lumen in place. INVESTIGATIONS: LABS: Hemoglobin 9.5, INR 1.3, PTT 24.4, AB.47/38/pO2 greater than 400/HCO3 28/CO2 29/base excess 3.9. BUN 32, creatinine 2.32, CHEST X-ray: Interval improvement in pulmonary edema ASSESSMENT: -Acute Left great toe cellulitis, failed outpatient treatment possibly cause of sepsis -Acute hypoxic respiratory failure secondary to sepsis and profound metabolic acidosis, requiring an intubation and mechanical ventilation -Severe metabolic acidosis -Acute kidney injury secondary to acute tubular necrosis secondary to sepsis hemodynamic mismatch. -Acute shock liver with AST and ALTs elevated -Persistent atrial fibrillation with rapid ventricular rate, now converted to normal sinus rhythm chronically on Eliquis. -Chronic kidney disease stage III probably from nephrosclerosis, baseline creatinine in the range of 1.3-1.4. -Chronic obstructive pulmonary disease in an current smoker. -Chronic nicotine dependence patient is a cigarette smoker. -Coronary artery disease prior history of stent. -Hypothyroidism. -Essential hypertension. -Hyperlipidemia. -Peripheral artery disease. -Depression, anxiety, not otherwise specified. -IV Heparin monitoring PLAN: Continue antibiotics in the form of Zosyn, IV fluids, IV amiodarone to continue with possibility of stopping it tomorrow and putting him on oral Lasix as long as his liver enzymes continue to trend down. IV heparin will be switched back to Eliquis. Patient remained in the ICU for at least the next 48 hours. Plan of care discussed at the bedside patient and family are in agreement. We will follow closely. TAP GRINDER statement: Patient was seen and examined by nurse practitioner Xiao Glass and all elements of the case discussed with attending Dr. Alston
[2017-09-09] MEDS: PIPERACILLIN-TAZOBACTAM 3.375 GM in DEXTROSE/WATER 1 50ML.BAG IVPB SCH ×4 (00:59→23:43)
[2017-09-09] MEDS: HYDROcodone/APAP 5-325MG 1 EACH TAB PO PRN ×3 (01:11→19:33)
[2017-09-09] MEDS: AMIODARONE 450 MG in DEXTROSE 5% IN WATER 250 ML IV SCH ×6 (01:11→13:35)
[2017-09-09] MEDS: HYDROmorphone 4 MG/ML 1 ML SYRINGE IVP PRN ×2 (01:12→20:34)
[2017-09-09 04:25] LABS: Basophils # (A) 0.1 k/uL (0-0.2); Basophils % (A) 1 %; Eosinophils # (A) 0.6 k/uL (0-0.7); Eosinophils % (A) 6 %; HCT 29.7 % (39.0-53.0); HGB 9.4 gm/dL (13.0-17.5); Hypochromasia Slight; Lymphocytes % (A) 21 %; MCH 28.2 pg (25.0-35.0); MCHC 31.7 g/dL (31.0-37.0); Mean Platelet Volume 8.9; Monocytes # (A) 0.2 k/uL (0-1.0); Monocytes % (A) 2 %; Neutrophils # (A) 6.5 k/uL (1.3-7.7); Neutrophils % (A) 68 %; Platelet Count 240 k/uL (150-450); RBC 3.33 m/uL (4.30-5.90); RDW 15.6 % (11.5-15.5); WBC 9.7 k/uL (3.8-10.6)
[2017-09-09 04:47] LABS: Albumin 2.7 g/dL (3.5-5.0); Calcium 8.1 mg/dL (8.4-10.2); Phosphorus 3.2 mg/dL (2.5-4.5); Potassium 4.3 mmol/L (3.5-5.1); Total Bilirubin 0.6 mg/dL (0.2-1.3); Total Protein 6.1 g/dL (6.3-8.2)
[2017-09-09] MEDS: SODIUM CHLORIDE 0.9% 1,000 ML IV SCH ×2 (06:27→23:43)
[2017-09-09] MEDS: MAGNESIUM SULFATE-D5W PMX 1 GM in DEXTROSE/WATER 1 100ML.BAG IVPB SCH ×2 (06:27→07:49)
[2017-09-09] MEDS: LEVOTHYROXINE 25 MCG TAB PO SCH (06:34)
[2017-09-09] MEDS: NICOTINE 21MG/24HR PATCH TRANSDERM SCH (06:40)
[2017-09-09] MEDS: IPRATROPIUM-ALBUTEROL 3 ML NEB INHALATION PRN ×3 (07:22→16:10)
[2017-09-09 07:35] LABS: Bilirubin, Delta 0.6 mg/dL (0.0-0.2)
[2017-09-09] MEDS: PANTOPRAZOLE 40 MG/10 ML VIAL IVP SCH (08:06)
[2017-09-09] MEDS: FLUoxetine HCL 20 MG CAP PO SCH (08:06)
--- NOTE | 2017-09-09 08:24 | XR ---
EXAMINATION TYPE: XR chest 1V portable DATE OF EXAM: 09/09/2017 HISTORY: shortness of breath. REFERENCE: Previous study dated 09/08/2017. FINDINGS: The patient has been extubated. The patient is NG tube has been removed. There is worsening bilateral airspace disease. Pleural spaces appear clear. The heart is upper limits of normal in size. Been IMPRESSION: WORSENING BIBASILAR AIRSPACE DISEASE, WORSE ON THE RIGHT THAN THE LEFT.
--- NOTE | 2017-09-09 08:38 | PN ---
PROGRESS NOTE DATE OF SERVICE: September 08, 2017. ATTENDING NOTE: Patient seen and examined by me on September 08, 2017. Discussed with nurse practitioner, Jessijung. Patient is in the ICU, extubated this morning. Sitting up. The patient's family is at the bedside. The patient is off propofol and Levophed. The patient was in atrial fibrillation, which is back in a sinus rhythm on Amiodarone. PHYSICAL EXAMINATION: On examination, afebrile, pulse 56, respiration 19, blood pressure 98/54, on 4 L of oxygen. LUNGS: Decreased breath sounds. Cardiovascular 1st and 2nd sounds normal. Psych: Tired-appearing, but answering questions. Sitting up. LABORATORY DATA: White count 9.5, hemoglobin 9.7, BUN 30, creatinine 2.10. ASSESSMENT: 1. Acute left great toe cellulitis having failed outpatient treatment. Probable possible sepsis. 2. Acute hypoxic respiratory failure, status post ventilator requirement, now on nasal cannula. 3. Severe metabolic acidosis. 4. Acute kidney injury and acute tubular necrosis, probably from sepsis with some improvement. 5. Shock liver, that is ischemic hepatitis with biochemical improvement. The patient's AST is 988 and ALT is 1429. 6. IV heparin monitoring. PLAN: Continue medication and treatment plan. Prognosis is guarded. Had to be very careful with patient being on amiodarone and ischemic hepatitis. We will let Cardiology monitor that. MMYUNL / ABRAHAMN: [id number] /
[2017-09-09] MEDS: HEPARIN SOD,PORK IN 0.45% NACL 25,000 UNIT in 0.45% NACL 1 500ML.BAG IV SCH (08:53)
[2017-09-09] MEDS ORDERED: FUROSEMIDE 10 MG/ML 2 ML VIAL IV ONE (09:42)
[2017-09-09] MEDS ORDERED: FUROSEMIDE 10 MG/ML 2 ML VIAL IV STA (09:47)
[2017-09-09] MEDS: methylPREDNISolone SOD SUCCI 40 MG/ML 1 ML VIAL IV SCH ×3 (10:03→23:43)
--- NOTE | 2017-09-09 10:44 | PN ---
PROGRESS NOTE This is a 62-year-old gentleman who has gangrene of the left foot big toe. The patient had acute respiratory failure. The patient was intubated. Now the patient has been extubated. He is on BiPAP. Left foot big toe has no change. We will wait when patient becomes stable to do the angiogram. Most likely sometime next week when there is a Doppler signal present on the foot. MMODL / IJN: [id number] /
--- NOTE | 2017-09-09 10:52 | P.PN ---
Subjective Progress Note Date: 09/09/17 Principal diagnosis: Acute kidney injury Seen and examined for the follow-up of acute kidney injury. There's a bit labile with breathing. Objective - Vital Signs Vital signs: Vital Signs Temp 97.7 F 09/09/17 08:00 Pulse 60 09/09/17 10:00 Resp 16 09/09/17 10:00 BP 114/74 09/09/17 10:00 Pulse Ox 94 L 09/09/17 10:00 Intake & Output 09/08/17 09/09/17 09/09/17 18:59 06:59 18:59 Intake Total 1103.204 650 987.500 Output Total 750 530 235 Balance 353.204 120 752.500 Weight 80.1 kg 81.3 kg Intake: IV 550 650 287.5 Magnesium Sulfate-D5w Pmx 100 1 gm In Dextrose/Water 1 100ml.bag @ 100 mls/hr IVPB Q1H [facility] Rx#: [id number] Piperacillin-Tazobactam 3 37.5 .375 gm In Dextrose/Water 1 50ml.bag @ 12.5 mls/hr IVPB Q8HR [facility] Rx#: [id number] Sodium Chloride 0.9% 1, 550 650 150 000 ml @ 50 mls/hr IV . Q20H AJ Rx#:[id number] Intake, IV Titration 463.204 500.000 Amount Amiodarone 450 mg In 17.809 Dextrose 5% in Water 250 ml @ 1 MG/MIN 33.33 mls/ hr IV .Q7H31M AJ Rx#: [id number] Heparin Sod,Pork in 0.45% 345.395 500.000 NaCl 25,000 unit In 0.45 % NaCl 1 500ml.bag @ 12 UNITS/KG/HR 18.74 mls/hr IV .Q24H AJ Rx#: [id number] Piperacillin-Tazobactam 3 100 .375 gm In Dextrose/Water 1 50ml.bag @ 12.5 mls/hr IVPB Q8HR AJ Rx#: [id number] Oral 200 Tube Feeding 90 Output: Gastric Drainage 10 Urine 740 530 235 Other: Voiding Method Indwelling Catheter Indwelling Catheter Indwelling Catheter ABP, PAP, CO, CI - Last Documented Arterial Blood Pressure 126/64 - Exam Lying in bed no acute distress S1 and S2 heard Clear to auscultation, lungs Soft bowel sounds present Left toe Band-Aid - Labs CBC & Chem 7: 09/09/17 04:12 09/09/17 04:12 Labs: Abnormal Lab Results - Last 24 Hours (Table) 09/09/17 09/09/17 09/09/17 Range/Units 04:12 04:12 04:12 RBC 3.33 L (4.30-5.90) m/uL Hgb 9.4 L (13.0-17.5) gm/dL Hct 29.7 L (39.0-53.0) % RDW 15.6 H (11.5-15.5) % APTT 40.7 H (22.0-30.0) sec Chloride 110 H (98-107) mmol/L Creatinine 1.69 H (0.66-1.25) mg/dL Calcium 8.1 L (8.4-10.2) mg/dL Delta Bilirubin 0.6 H (0.0-0.2) mg/dL AST 397 H (17-59) U/L ALT 1065 H (21-72) U/L Total Protein 6.1 L (6.3-8.2) g/dL Albumin 2.7 L (3.5-5.0) g/dL Microbiology - Last 24 Hours (Table) 09/06/17 17:27 Gram Stain - Final Sputum Sputum Culture - Final 09/05/17 10:10 Blood Culture - Preliminary Blood No Growth after 72 hours Assessment and Plan Assessment: Impression: #1 nonoliguric acute kidney injury secondary to his clinic ATN #2 A. fib with RVR #3 peripheral vascular disease with left gangrenous toe #4 hypothyroidism #5 CKD3 with baseline creatinine 1.3-1.4 MG per day Recommendations: #1 agreeable with the dose of Lasix #2 renal functions improving and anticipate to recover in next couple of days. #3 for left gangrenous toe vascular surgery planning to do angiogram. Discussed with Dr. Addison if renal functions continued to improve okay to do diagnostic angiogram with minimal dye use.
--- NOTE | 2017-09-09 10:58 | P.PN ---
Subjective Progress Note Date: 09/09/17 This is a 62-year-old gentleman with history of ischemic heart disease and previous history of atrial fibrillation who was admitted with ischemic left leg and possible sepsis. Subsequent a patient had some respiratory difficulties requiring intubation. Patient went into atrial fibrillation with rapid ventricle response. He was treated with IV amiodarone. Patient is back in regular rhythm. His liver enzymes are high but that gradually coming down. He is on maintenance dose of amiodarone. We'll discontinue amiodarone and start him on by mouth beta blockers. May consider long-term amiodarone if patient were to go back into atrial fibrillation. Patient is on heparin. Patient is to be on eliquis in the past. We'll may resume anticoagulation when patient comes of heparin. Objective - Vital Signs Vital signs: Vital Signs Temp 97.7 F 09/09/17 08:00 Pulse 60 09/09/17 10:00 Resp 16 09/09/17 10:00 BP 114/74 09/09/17 10:00 Pulse Ox 94 L 09/09/17 10:00 Intake & Output 09/08/17 09/09/17 09/09/17 18:59 06:59 18:59 Intake Total 1103.204 650 987.500 Output Total 750 530 235 Balance 353.204 120 752.500 Weight 80.1 kg 81.3 kg Intake: IV 550 650 287.5 Magnesium Sulfate-D5w Pmx 100 1 gm In Dextrose/Water 1 100ml.bag @ 100 mls/hr IVPB Q1H AJ Rx#: [id number] Piperacillin-Tazobactam 3 37.5 .375 gm In Dextrose/Water 1 50ml.bag @ 12.5 mls/hr IVPB Q8HR AJ Rx#: [id number] Sodium Chloride 0.9% 1, 550 650 150 000 ml @ 50 mls/hr IV . Q20H AJ Rx#:[id number] Intake, IV Titration 463.204 500.000 Amount Amiodarone 450 mg In 17.809 Dextrose 5% in Water 250 ml @ 1 MG/MIN 33.33 mls/ hr IV .Q7H31M AJ Rx#: [id number] Heparin Sod,Pork in 0.45% 345.395 500.000 NaCl 25,000 unit In 0.45 % NaCl 1 500ml.bag @ 12 UNITS/KG/HR 18.74 mls/hr IV .Q24H [facility] Rx#: [id number] Piperacillin-Tazobactam 3 100 .375 gm In Dextrose/Water 1 50ml.bag @ 12.5 mls/hr IVPB Q8HR [facility] Rx#: [id number] Oral 200 Tube Feeding 90 Output: Gastric Drainage 10 Urine 740 530 235 Other: Voiding Method Indwelling Catheter Indwelling Catheter Indwelling Catheter ABP, PAP, CO, CI - Last Documented Arterial Blood Pressure 126/64 - Exam GENERAL EXAM: Patient is alert and oriented and doesn't appear to be in any acute distress HEENT: Normocephalic. Normal reaction of pupils, equal size, normal range of extraocular motion. No erythema or exudates in the throat. NECK: No masses, no nuchal rigidity. LUNGS: Diminished air entry HEART: [S1 and S2 normal with no audible mumurs or gallops. Regular rhythm, f ABDOMEN: No hepatosplenomegaly, normal bowel sounds, no guarding or rigidity. SKIN: No rashes CENTRAL NERVOUS SYSTEM: Alert EXTREMITIES: [Left leg is wrapped - Labs CBC & Chem 7: 09/09/17 04:12 09/09/17 04:12 Labs: Abnormal Lab Results - Last 24 Hours (Table) 09/09/17 09/09/17 09/09/17 Range/Units 04:12 04:12 04:12 RBC 3.33 L (4.30-5.90) m/uL Hgb 9.4 L (13.0-17.5) gm/dL Hct 29.7 L (39.0-53.0) % RDW 15.6 H (11.5-15.5) % APTT 40.7 H (22.0-30.0) sec Chloride 110 H (98-107) mmol/L Creatinine 1.69 H (0.66-1.25) mg/dL Calcium 8.1 L (8.4-10.2) mg/dL Delta Bilirubin 0.6 H (0.0-0.2) mg/dL AST 397 H (17-59) U/L ALT 1065 H (21-72) U/L Total Protein 6.1 L (6.3-8.2) g/dL Albumin 2.7 L (3.5-5.0) g/dL Microbiology - Last 24 Hours (Table) 09/06/17 17:27 Gram Stain - Final Sputum Sputum Culture - Final 09/05/17 10:10 Blood Culture - Preliminary Blood No Growth after 72 hours Assessment and Plan (1) CAD (coronary artery disease) Current Visit: Yes Status: Acute Code(s): I25.10 - ATHSCL HEART DISEASE OF [place] CORONARY ARTERY W/O ANG PCTRS SNOMED Code(s): 55483412 (2) Peripheral vascular disease Current Visit: Yes Status: Acute Code(s): I73.9 - PERIPHERAL VASCULAR DISEASE, UNSPECIFIED SNOMED Code(s): 258583630 (3) New onset a-fib Current Visit: No Status: Acute Code(s): I48.91 - UNSPECIFIED ATRIAL FIBRILLATION SNOMED Code(s): 49049393 Plan: Start patient on by mouth beta skylar. Discontinue IV amiodarone. Continue IV heparin. Switch to oral anticoagulants when patient is off heparin. Will follow
--- NOTE | 2017-09-09 11:59 | P.PN ---
Subjective Progress Note Date: 09/09/17 Principal diagnosis: Acute hypoxic respiratory failure secondary to septic shock This is a 62-year-old -[place] male with history of chronic atrial fibrillation, chronic kidney disease stage III, coronary artery disease and previous stent placement, hypertension, hypothyroidism, patient was recently admitted to the hospital on 08/26/2017 and he was discharged on 08/26. Apparently the patient was admitted with left toe cellulitis secondary to trauma related to picking at table. Cultures showed anaerobic gram-positive cocci at the time. Patient was seen by infectious disease on consultation, and he was discharged home on Keflex. X-rays of the toe at the time failed to show any fracture, but the patient continued to have pain no documented fever, no chills, no shortness of breath. The patient was admitted actually yesterday, workup included x-rays of the foot, and there was diffuse soft tissue swelling, but no fracture. Venous Doppler of the left lower extremity showed no evidence of deep vein thrombosis. Patient was seen by orthopedics on consultation, and the left foot was noted to be malodorous, edematous, left toe with superficial wound, patient underwent debridement of the wound, he was felt to have a gangrenous toe. And severe peripheral vessel occlusive disease. Around noontime today, patient was noted to be hypotensive, bradycardic, and he was developing worsening shortness of breath with congestion. Patient was placed on non-rebreather mask, transferred to the intensive care unit, placed on dopamine, because of his bradycardia which looked like a high degree AV block. Seen by cardiology on consultation, and felt this is mostly related to his undergoing sepsis, recommended that we continue dopamine, no need for temporary or permanent pacemaker insertion. Not to mention the patient received his usual dose of metoprolol earlier today. I saw the patient in the ICU, and I reviewed his chest x-ray which showed clearly evidence of pulmonary edema or possibly a picture of ARDS, although the possibility of cardiogenic pulmonary edema is not entirely ruled out. ABG on a nonrebreather mask showed pO2 of 56 pCO2 of 26 pH of 7.22. His lactic acid was 7.8. And his CBC from earlier today showed WBC count of 12.0, it was 7.6 yesterday. Shortly after my evaluation, patient was intubated, placed on mechanical ventilation, he is presently on a tidal volume of 450, assist control rate of 16, FiO2 of 100%, and PEEP of 8. Follow-up chest x-ray post intubation is pending. After intubation, central line was placed because the patient will require most likely more pressors and higher doses of dopamine possibly and will need to be placed on propofol drip. In the meantime I have recommended that the patient is placed on the sepsis protocol, fluids were given earlier, and a stat echocardiogram was ordered to evaluate his new finding of pulmonary edema which may be noncardiogenic or possibly cardiogenic in nature. The patient himself is a very poor historian, most of the information was obtained from the chart itself. Presently the patient is on 15 mcg/kg/m of dopamine, he is also on antibiotics in the form of vancomycin and I will go ahead and add Zosyn. Patient was reevaluated today on 09/07/2017, remains on mechanical ventilation, however the FiO2 is down to 50%, and his PEEP is down to 5, the rest of the vent settings are the same. Chest x-ray showed significant improvement in what seemed to be an noncardiogenic pulmonary edema. His ABG showed a pO2 of above 400 pCO2 of 38 pH of 7.47. WBC count is 9 hemoglobin is 9.5. Basic metabolic profile is normal, BUN is 32 creatinine is 2.3 to consistent with acute kidney injury from his septic shock and his liver enzymes were also noted to be significantly elevated, and that is again related to his shock liver. Last night, the patient went into atrial fibrillation with RVR, hence dopamine was discontinued, and patient was switched to norepinephrine instead for hypotension. Remains on levo fed, patient is still in atrial fibrillation with RVR, hence I recommended adding Cardizem today. Cardiology is following, however no consultation, and no progress note on the chart so far. Dr. Warren was earlier seeing the patient and discussing his condition with his cousin at bedside. No specific recommendation of the chart regarding his atrial fibrillation and RVR, and his initial hypotension with bradycardia. Echocardiogram was done, relatively unremarkable. Chest x-ray was reviewed and showed a significant improvement in his interstitial edema noted yesterday before and after intubation. Lactic acid came down last night, however his urine output seems to be marginal, and I recommended more fluids to be given today. I have also recommended a Cardizem drip at 5 mg per hour with 10 mg bolus. Hoping to control his heart rate with Cardizem and fluid boluses. Patient was reevaluated today on 09/08/2017, remains on mechanical ventilation, however the patient was noted to be arousable, comfortable, in no distress even when he was placed on a pressure support and CPAP mode of mechanical ventilation. Chest x-ray showed minimal improvement in the aeration of the right upper lobe and right suprahilar area. Left side has significantly improved. Labs were all reviewed, ABG showed a pO2 of 82 pCO2 of 34 pH of 7.47. Urine output is excellent. PTT is 47. Patient had to be placed on amiodarone last night, and he converted to sinus rhythm, but he continues to have significant sinus arrhythmias. He is presently off Cardizem and off norepinephrine. Blood pressure seems to be stable. BUN remains elevated at 30 creatinine is 2.10 liver enzymes are improving but still elevated. Blood cultures and sputum cultures are pending, so far the blood cultures are negative. Patient was reevaluated today on 09/09/2017, patient was extubated yesterday, tolerated the extubation quite well, however I'm a bit concerned about the worsening airspace disease noted in both lower lobes. Patient is having intermittent cough and wheezing, as I have recommended placing the patient back on BiPAP, I have also recommended bronchodilators, and steroids were added. The patient himself does not seem to be in much distress, but his O2 saturation is down in the high 80s and low 90s on a 10 L high flow nasal cannula. As soon as I switched him to BiPAP, his oxygenation significantly improved. CBC is relatively normal hemoglobin is 9.4 however his labs are improving with improvement of BUN down to 20 creatinine is down to 1.69. And his urine output seems to be excellent. His liver enzymes are also improving. ALT is down to 1065 and his AST is down to 397 from 988 yesterday. Sputum Gram stain and culture is nondiagnostic, blood cultures are negative in the last few days. Again the chest x-ray seems to be a bit concerning to me, and if it remains as such, may have to even consider bronchoscopy and evaluation of both lower lobes. Objective - Vital Signs Vital signs: Vital Signs Temp 97.7 F 09/09/17 08:00 Pulse 71 09/09/17 11:40 Resp 16 09/09/17 11:00 BP 131/72 09/09/17 11:00 Pulse Ox 93 L 09/09/17 11:00 Intake & Output 09/08/17 09/09/17 09/09/17 18:59 06:59 18:59 Intake Total 1103.814 112 9534.000 Output Total 617 366 5862 Balance 353.204 120 15.000 Weight 80.1 kg 81.3 kg Intake: IV 550 650 350.0 Magnesium Sulfate-D5w Pmx 100 1 gm In Dextrose/Water 1 100ml.bag @ 100 mls/hr IVPB Q1H [facility] Rx#: [id number] Piperacillin-Tazobactam 3 50.0 .375 gm In Dextrose/Water 1 50ml.bag @ 12.5 mls/hr IVPB Q8HR [facility] Rx#: [id number] Sodium Chloride 0.9% 1, 550 650 200 000 ml @ 50 mls/hr IV . Q20H [facility] Rx#:[id number] Intake, IV Titration 463.204 500.000 Amount Amiodarone 450 mg In 17.809 Dextrose 5% in Water 250 ml @ 1 MG/MIN 33.33 mls/ hr IV .Q7H31M [facility] Rx#: [id number] Heparin Sod,Pork in 0.45% 345.395 500.000 NaCl 25,000 unit In 0.45 % NaCl 1 500ml.bag @ 12 UNITS/KG/HR 18.74 mls/hr IV .Q24H [facility] Rx#: [id number] Piperacillin-Tazobactam 3 100 .375 gm In Dextrose/Water 1 50ml.bag @ 12.5 mls/hr IVPB Q8HR [facility] Rx#: [id number] Oral 200 Tube Feeding 90 Output: Gastric Drainage 10 Urine 634 065 4726 Other: Voiding Method Indwelling Catheter Indwelling Catheter Indwelling Catheter ABP, PAP, CO, CI - Last Documented Arterial Blood Pressure 135/62 - Exam Physical Exam: Revealed a 62-year-old male, in no distress, presently on high flow nasal cannula. Looks very comfortable. HEENT:[Neck is supple.] [No neck masses.] [No thyromegaly.] [No JVD.] Chest: [Minimal crackles noted at the bases bilaterally. Rhonchi and wheezes noted bilaterally.] Cardiac Exam: [Irregular irregular, tachycardic, Normal S1 and S2, no S3 gallop , no murmur.] Abdomen: [Soft, nontender, no megaly, no rebound, no guarding, normal bowel sounds.] Extremities: [No clubbing, no edema, no cyanosis. Left foot was examined, wrapped with sterile dressing, has been debrided. Neurological Exam: Alert oriented 3, good no gross focal neurologic deficit. Psychiatric: Blunted affect, otherwise unremarkable. Musculoskeletal: Normal range of motion, no deformities except the swelling noted in the left big toe. And a superficial laceration of the left big toe. - Labs CBC & Chem 7: 09/09/17 04:12 09/09/17 04:12 Labs: Abnormal Lab Results - Last 24 Hours (Table) 09/09/17 09/09/17 09/09/17 Range/Units 04:12 04:12 04:12 RBC 3.33 L (4.30-5.90) m/uL Hgb 9.4 L (13.0-17.5) gm/dL Hct 29.7 L (39.0-53.0) % RDW 15.6 H (11.5-15.5) % APTT 40.7 H (22.0-30.0) sec Chloride 110 H (98-107) mmol/L Creatinine 1.69 H (0.66-1.25) mg/dL Calcium 8.1 L (8.4-10.2) mg/dL Delta Bilirubin 0.6 H (0.0-0.2) mg/dL AST 397 H (17-59) U/L ALT 1065 H (21-72) U/L Total Protein 6.1 L (6.3-8.2) g/dL Albumin 2.7 L (3.5-5.0) g/dL Microbiology - Last 24 Hours (Table) 09/06/17 17:27 Gram Stain - Final Sputum Sputum Culture - Final 09/05/17 10:10 Blood Culture - Preliminary Blood No Growth after 72 hours Assessment and Plan Assessment: Impression: 1 acute hypoxic respiratory failure secondary to acute sepsis and septic shock, most likely source is left big toe cellulitis and gangrene. Considering the changes noted in his chest x-ray, I am a bit concerned about the possibility of pneumonia although his sputum studies are nondiagnostic. His chest x-ray showed significant improvement yesterday, but seems to be getting worse again today. And this is mostly contributing to his desaturation, hence I recommended BiPAP, I have also recommended updrafts, steroids, and the patient would have to be kept in the ICU today. His O2 saturation is marginal. 2 acute bradycardia, on presentation, went into atrial fibrillation when he was placed on dopamine, presently in sinus rhythm, he is on amiodarone. 3 history of underlying coronary artery disease and previous stent placement 4 history of chronic atrial fibrillation, on eliquis 5 history of underlying COPD, patient is currently a smoker. 6 history of essential hypertension 7 history of depression 8 history of peripheral vessel occlusive disease 9 history of hypothyroidism 10 history of chronic kidney disease stage III from nephrosclerosis. 11 acute cellulitis and gangrene of the left big toe. Status post debridement. Recommendation: Continue present meds, placed patient on BiPAP, added Solu- Medrol, patient remains critically ill, not quite ready to be discharged out of the ICU, and if he does not improve much in the next 24-48 hours, may have to be bronchoscoped for further evaluation of both lower lobes. Trial of diuresis will be given. And we'll continue bronchodilators. Nutrition-hubbard, the patient is eating on his own. Critical care time is 32 minutes. Time with Patient: Greater than 30
[2017-09-09] MEDS: METOPROLOL TARTRATE 25 MG TAB PO SCH ×2 (12:28→19:28)
[2017-09-09 20:09] LABS: Glucose,Whole Blood 204 mg/dL (75-99)
[2017-09-09] MEDS ORDERED: SENNOSIDES 8.6 MG TAB PO PRN (20:12)
[2017-09-09] MEDS: INSULIN ASPART 100 UNIT/ML 1 ML 10 ML VIAL SQ SCH (20:51)
--- NOTE | 2017-09-09 22:20 | PN ---
PROGRESS NOTE DATE OF SERVICE: 09/09/2017 REASON FOR FOLLOWUP: Left foot cellulitis and question of pneumonia. INTERVAL HISTORY: The patient is afebrile, has been breathing comfortably. Denies having any chest pain. No cough. No nausea. No vomiting. No abdominal pain. Some pain in the left foot area, but no worsening. EXAMINATION: Blood pressure is 113/65 with a pulse of 105, temperature of 98. He is 97% on 6L nasal cannula. General description is a middle-aged male lying in bed in no distress. RESPIRATORY SYSTEM: Unlabored breathing. Some decreased breath sounds in the bases. No wheeze. HEART: S1, S2. Regular rate and rhythm. ABDOMEN: Soft. No tenderness. LABS: Hemoglobin 9.4, white count 9.7. BUN of 20, creatinine is 1.69. Sputum has been negative. Blood cultures so far negative. DIAGNOSTIC IMPRESSION AND PLAN: Patient with left big and 2nd toe wound with cellulitis, also component of acute ventilator-dependent respiratory failure, status post extubation, question of possible aspiration pneumonia. The patient currently on Zosyn. Will continue hopefully finish therapy with oral antibiotic therapy. Continue with supportive care. MMODL / IJN: [id number] /
[2017-09-10 04:42] LABS: Basophils % (A) 0 %; Eosinophils % (A) 0 %; HCT 32.1 % (39.0-53.0); HGB 9.7 gm/dL (13.0-17.5); Hypochromasia Slight; Lymphocytes # (A) 1.3 k/uL (1.0-4.8); Lymphocytes % (A) 12 %; MCH 27.1 pg (25.0-35.0); MCHC 30.1 g/dL (31.0-37.0); MCV 90.2 fL (80.0-100.0); Mean Platelet Volume 9.3; Monocytes # (A) 0.1 k/uL (0-1.0); Monocytes % (A) 1 %; Neutrophils # (A) 8.7 k/uL (1.3-7.7); Neutrophils % (A) 85 %; Platelet Count 284 k/uL (150-450); RBC 3.56 m/uL (4.30-5.90); RDW 14.9 % (11.5-15.5); WBC 10.2 k/uL (3.8-10.6)
[2017-09-10 05:03] LABS: Albumin 2.9 g/dL (3.5-5.0); Calcium 8.4 mg/dL (8.4-10.2); Phosphorus 3.6 mg/dL (2.5-4.5); Potassium 4.5 mmol/L (3.5-5.1); Total Bilirubin 0.5 mg/dL (0.2-1.3); Total Protein 6.4 g/dL (6.3-8.2)
--- NOTE | 2017-09-10 06:28 | XR ---
EXAMINATION TYPE: XR chest 1V portable DATE OF EXAM: 09/10/2017 HISTORY: Shortness of breath. REFERENCE: Previous study dated 09/09/2016. FINDINGS: There is improved aeration of both lung bases. Heart size is upper limits of normal. Pleura l spaces appear clear. IMPRESSION: IMPROVED AERATION, BOTH LUNG BASES.
--- NOTE | 2017-09-10 06:37 | PN ---
PROGRESS NOTE DATE OF SERVICE: 09/09/17 PRESENTING COMPLAINT: Short of breath. INTERVAL HISTORY: This is a patient who was admitted initially with infected left big toe from recent trauma, failed outpatient treatment and went into respiratory distress, was intubated and then successfully extubated. Patient remains in the ICU. The patient intermittently had to use the BiPAP. The patient has been tolerating his meals. Has been on IV heparin and has been in and out of atrial fibrillation. Currently on nasal cannula, sitting up on the bed. REVIEW OF SYSTEMS: Done for constitutional, cardiovascular, GI, pulmonary; relevant findings as above. CURRENT MEDICATIONS: Reviewed that include DuoNeb, Prozac, IV heparin, IV Solu-Medrol, IV Zosyn, saline drip. PHYSICAL EXAMINATION: Afebrile, pulse 105, respirations 24, blood pressure 113/65, pulse ox 97% on 6 L. GENERAL APPEARANCE: Sitting up, tired appearing. EYES: Pupils equal. Conjunctivae are pale. HEENT: External appearance of nose and ears normal. Oral cavity dry. NECK: JVD unable to assess. Mass not palpable. RESPIRATORY: Effort increased. LUNGS: Diminished breath sounds. Some expiratory wheezing. CARDIOVASCULAR: First and second sounds normal. No edema. ABDOMEN: Soft, nontender. Liver and spleen not palpable. No mass palpable. PSYCHIATRY: Alert and oriented x3. Mood and affect low appearing. INVESTIGATIONS: White count 9.7, hemoglobin 9.4, potassium 4.3, BUN normal, creatinine 1.69. Sputum and blood cultures negative till now. Chest x-ray shows bilateral infiltrate most on the right side. ASSESSMENT: 1. Acute left big toe cellulitis and wound secondary to trauma, having failed outpatient treatment, possibly sepsis. 2. Acute hypoxic respiratory failure secondary to sepsis requiring ventilator assistance, now patient is off the ventilator, currently on 6 L of oxygen. 3. Bilateral pneumonia, suspect gram-negative organism, probably cause of sepsis too. 4. Severe metabolic acidosis, improved. 5. Acute kidney injury secondary to acute tubular necrosis secondary to sepsis, hemodynamic mismatch with some improvement in the acute component. 6. Acute shock liver with biochemical improvement, likely from hypertension. 7. Persistent atrial fibrillation with rapid ventricular rate in and out. The patient is on Eliquis chronically. 8. Chronic kidney stage 3 from nephrosclerosis. Baseline creatinine in the range of 1.3. 9. Acute chronic obstructive pulmonary disease exacerbation in a current smoker. 10.Chronic nicotine dependence. Patient is a cigarette smoker. 11.Coronary artery disease, prior history of stent. 12.Hypothyroidism. 13.Essential hypertension history. 14.Hyperlipidemia. 15.Peripheral artery disease. 16.Depression and anxiety, not otherwise specified. 17.IV heparin monitoring. PLAN: Continue current medication and treatment. Supportive care. Prognosis is guarded. Keep the patient on antibiotic as above. Follow. MMODL / IJN: [id number] /
[2017-09-10] MEDS: NICOTINE 21MG/24HR PATCH TRANSDERM SCH (06:38)
[2017-09-10] MEDS: LEVOTHYROXINE 25 MCG TAB PO SCH (06:38)
[2017-09-10 07:06] LABS: Glucose,Whole Blood 180 mg/dL (75-99)
[2017-09-10] MEDS: PIPERACILLIN-TAZOBACTAM 3.375 GM in DEXTROSE/WATER 1 50ML.BAG IVPB SCH ×3 (07:39→23:50)
[2017-09-10 07:40] LABS: Glucose,Whole Blood 147 mg/dL (75-99)
[2017-09-10] MEDS: INSULIN ASPART 100 UNIT/ML 1 ML 10 ML VIAL SQ SCH ×4 (07:51→21:06)
[2017-09-10] MEDS: methylPREDNISolone SOD SUCCI 40 MG/ML 1 ML VIAL IV SCH ×3 (07:52→23:50)
[2017-09-10] MEDS: METOPROLOL TARTRATE 25 MG TAB PO SCH (08:00)
[2017-09-10] MEDS: SENNOSIDES 8.6 MG TAB PO SCH (08:00)
[2017-09-10] MEDS: FLUoxetine HCL 20 MG CAP PO SCH (08:00)
[2017-09-10] MEDS: PANTOPRAZOLE 40 MG/10 ML VIAL IVP SCH (08:01)
[2017-09-10] MEDS: HYDROcodone/APAP 5-325MG 1 EACH TAB PO PRN ×2 (08:09→21:05)
[2017-09-10] MEDS: IPRATROPIUM-ALBUTEROL 3 ML NEB INHALATION PRN ×4 (08:35→21:03)
[2017-09-10] MEDS ORDERED: DEXTROSE 5% IN WATER 100 ML with AMIODARONE 150 MG IV ONE (09:21)
--- NOTE | 2017-09-10 09:34 | P.PN ---
Subjective Progress Note Date: 09/10/17 Patient seen and examined for the follow-up of acute kidney injury. Objective - Vital Signs Vital signs: Vital Signs Temp 97.4 F L 09/10/17 08:00 Pulse 129 H 09/10/17 08:50 Resp 15 09/10/17 08:00 BP 102/69 09/10/17 08:00 Pulse Ox 100 09/10/17 08:35 Intake & Output 09/09/17 09/10/17 09/10/17 18:59 06:59 18:59 Intake Total 1987.500 562.5 425.0 Output Total 2870 570 125 Balance -882.500 -7.5 300.0 Weight 79.1 kg Intake: IV 787.5 562.5 175.0 Magnesium Sulfate-D5w Pmx 100 1 gm In Dextrose/Water 1 100ml.bag @ 100 mls/hr IVPB Q1H AJ Rx#: [id number] Piperacillin-Tazobactam 3 87.5 12.5 25.0 .375 gm In Dextrose/Water 1 50ml.bag @ 12.5 mls/hr IVPB Q8HR AJ Rx#: [id number] Sodium Chloride 0.9% 1, 600 550 150 000 ml @ 50 mls/hr IV . Q20H AJ Rx#:[id number] Intake, IV Titration 500.000 Amount Heparin Sod,Pork in 0.45% 500.000 NaCl 25,000 unit In 0.45 % NaCl 1 500ml.bag @ 12 UNITS/KG/HR 18.74 mls/hr IV .Q24H AJ Rx#: [id number] Oral 700 250 Output: Urine 2870 570 125 Other: Voiding Method Indwelling Catheter Indwelling Catheter Indwelling Catheter ABP, PAP, CO, CI - Last Documented Arterial Blood Pressure 122/72 - Exam Lying in bed no acute distress S1-S2 heard tachycardic Lungs clear Trace edema - Labs CBC & Chem 7: 09/10/17 04:35 09/10/17 04:35 Labs: Abnormal Lab Results - Last 24 Hours (Table) 09/09/17 09/09/17 09/10/17 Range/Units 14:00 20:07 04:35 RBC 3.56 L (4.30-5.90) m/uL Hgb 9.7 L (13.0-17.5) gm/dL Hct 32.1 L (39.0-53.0) % MCHC 30.1 L (31.0-37.0) g/dL Neutrophils # 8.7 H (1.3-7.7) k/uL APTT 49.1 H (22.0-30.0) sec Chloride (98-107) mmol/L BUN (9-20) mg/dL Creatinine (0.66-1.25) mg/dL Glucose (74-99) mg/dL POC Glucose (mg/dL) 204 H (75-99) mg/dL AST (17-59) U/L ALT (21-72) U/L Albumin (3.5-5.0) g/dL 09/10/17 09/10/17 09/10/17 Range/Units 04:35 04:35 07:02 RBC (4.30-5.90) m/uL Hgb (13.0-17.5) gm/dL Hct (39.0-53.0) % MCHC (31.0-37.0) g/dL Neutrophils # (1.3-7.7) k/uL APTT 52.0 H (22.0-30.0) sec Chloride 108 H (98-107) mmol/L BUN 23 H (9-20) mg/dL Creatinine 1.50 H (0.66-1.25) mg/dL Glucose 160 H (74-99) mg/dL POC Glucose (mg/dL) 180 H (75-99) mg/dL AST 198 H (17-59) U/L ALT 763 H (21-72) U/L Albumin 2.9 L (3.5-5.0) g/dL 09/10/17 Range/Units 07:39 RBC (4.30-5.90) m/uL Hgb (13.0-17.5) gm/dL Hct (39.0-53.0) % MCHC (31.0-37.0) g/dL Neutrophils # (1.3-7.7) k/uL APTT (22.0-30.0) sec Chloride (98-107) mmol/L BUN (9-20) mg/dL Creatinine (0.66-1.25) mg/dL Glucose (74-99) mg/dL POC Glucose (mg/dL) 147 H (75-99) mg/dL AST (17-59) U/L ALT (21-72) U/L Albumin (3.5-5.0) g/dL Microbiology - Last 24 Hours (Table) 09/05/17 10:10 Blood Culture - Preliminary Blood No Growth after 96 hours Assessment and Plan Assessment: Impression: #1 nonoliguric acute kidney injury secondary to ischemic ATN #2 A. fib with RVR #3 peripheral vascular disease with left gangrenous toes #4 hypothyroidism #5 CK D3 baseline creatinine 1.3-1.4 MG per DL secondary to nephrosclerosis Recommendations: #1 renal function improving monitor renal function closely #2 avoid nephrotoxic agents and hypotensive episodes, borderline blood pressure #3 okay for vascular surgery to do an diagnostic angiogram to look for vascular occlusion for gangrenous toes. Currently he is A. fib with RVR, stabilize his heart rate prior to the procedure to prevent decompensation. Will use perioperative IV fluids to prevent contrast nephropathy.
[2017-09-10] MEDS: AMIODARONE 450 MG in DEXTROSE 5% IN WATER 250 ML IV SCH ×4 (09:35→17:29)
--- NOTE | 2017-09-10 10:43 | P.PN ---
Subjective Progress Note Date: 09/10/17 This 62-year-old gentleman is admitted to the hospital with infected foot and sepsis. We're following him for management of atrial fibrillation. Yesterday we start him on beta skylar and IV amiodarone was discontinued. His heart rate has gone up today. We'll going to put him back on IV amiodarone. I'm going to increase the dose of the beta skylar. His liver enzymes are improving. Patient is clinically feeling better. His lungs are clear. Heart rate is in the 110s. He'll continue current medical therapy. Most probably patient will need by mouth amiodarone, which will be started from tomorrow Objective - Vital Signs Vital signs: Vital Signs Temp 97.4 F L 09/10/17 08:00 Pulse 110 H 09/10/17 10:00 Resp 14 09/10/17 10:00 BP 102/69 09/10/17 08:00 Pulse Ox 97 09/10/17 10:00 Intake & Output 09/09/17 09/10/17 09/10/17 18:59 06:59 18:59 Intake Total 1987.500 562.5 487.5 Output Total 2870 570 155 Balance -882.500 -7.5 332.5 Weight 79.1 kg Intake: IV 787.5 562.5 237.5 Magnesium Sulfate-D5w Pmx 100 1 gm In Dextrose/Water 1 100ml.bag @ 100 mls/hr IVPB Q1H AJ Rx#: [id number] Piperacillin-Tazobactam 3 87.5 12.5 37.5 .375 gm In Dextrose/Water 1 50ml.bag @ 12.5 mls/hr IVPB Q8HR AJ Rx#: [id number] Sodium Chloride 0.9% 1, 600 550 200 000 ml @ 50 mls/hr IV . Q20H AJ Rx#:[id number] Intake, IV Titration 500.000 Amount Heparin Sod,Pork in 0.45% 500.000 NaCl 25,000 unit In 0.45 % NaCl 1 500ml.bag @ 12 UNITS/KG/HR 18.74 mls/hr IV .Q24H AJ Rx#: [id number] Oral 700 250 Output: Urine 2870 570 155 Other: Voiding Method Indwelling Catheter Indwelling Catheter Indwelling Catheter ABP, PAP, CO, CI - Last Documented Arterial Blood Pressure 120/70 - Exam GENERAL EXAM: Patient is alert and oriented and doesn't appear to be in any acute distress HEENT: Normocephalic. Normal reaction of pupils, equal size, normal range of extraocular motion. No erythema or exudates in the throat. NECK: No masses, no nuchal rigidity. LUNGS: Diminished air entry HEART: [S1 and S2 normal with no audible mumurs or gallops. Irregular rhythm ABDOMEN: No hepatosplenomegaly, normal bowel sounds, no guarding or rigidity. SKIN: No rashes CENTRAL NERVOUS SYSTEM: Alert EXTREMITIES: Left leg is wrapped - Labs CBC & Chem 7: 09/10/17 04:35 09/10/17 04:35 Labs: Abnormal Lab Results - Last 24 Hours (Table) 09/09/17 09/09/17 09/10/17 Range/Units 14:00 20:07 04:35 RBC 3.56 L (4.30-5.90) m/uL Hgb 9.7 L (13.0-17.5) gm/dL Hct 32.1 L (39.0-53.0) % MCHC 30.1 L (31.0-37.0) g/dL Neutrophils # 8.7 H (1.3-7.7) k/uL APTT 49.1 H (22.0-30.0) sec Chloride (98-107) mmol/L BUN (9-20) mg/dL Creatinine (0.66-1.25) mg/dL Glucose (74-99) mg/dL POC Glucose (mg/dL) 204 H (75-99) mg/dL AST (17-59) U/L ALT (21-72) U/L Albumin (3.5-5.0) g/dL 09/10/17 09/10/17 09/10/17 Range/Units 04:35 04:35 07:02 RBC (4.30-5.90) m/uL Hgb (13.0-17.5) gm/dL Hct (39.0-53.0) % MCHC (31.0-37.0) g/dL Neutrophils # (1.3-7.7) k/uL APTT 52.0 H (22.0-30.0) sec Chloride 108 H (98-107) mmol/L BUN 23 H (9-20) mg/dL Creatinine 1.50 H (0.66-1.25) mg/dL Glucose 160 H (74-99) mg/dL POC Glucose (mg/dL) 180 H (75-99) mg/dL AST 198 H (17-59) U/L ALT 763 H (21-72) U/L Albumin 2.9 L (3.5-5.0) g/dL 09/10/17 Range/Units 07:39 RBC (4.30-5.90) m/uL Hgb (13.0-17.5) gm/dL Hct (39.0-53.0) % MCHC (31.0-37.0) g/dL Neutrophils # (1.3-7.7) k/uL APTT (22.0-30.0) sec Chloride (98-107) mmol/L BUN (9-20) mg/dL Creatinine (0.66-1.25) mg/dL Glucose (74-99) mg/dL POC Glucose (mg/dL) 147 H (75-99) mg/dL AST (17-59) U/L ALT (21-72) U/L Albumin (3.5-5.0) g/dL Microbiology - Last 24 Hours (Table) 09/05/17 10:10 Blood Culture - Preliminary Blood No Growth after 96 hours Assessment and Plan (1) CAD (coronary artery disease) Current Visit: Yes Status: Acute Code(s): I25.10 - ATHSCL HEART DISEASE OF [place] CORONARY ARTERY W/O ANG PCTRS SNOMED Code(s): 68410868 (2) Peripheral vascular disease Current Visit: Yes Status: Acute Code(s): I73.9 - PERIPHERAL VASCULAR DISEASE, UNSPECIFIED SNOMED Code(s): 649861837 (3) New onset a-fib Current Visit: No Status: Acute Code(s): I48.91 - UNSPECIFIED ATRIAL FIBRILLATION SNOMED Code(s): 67136136 Plan: Patient's heart rate is not well controlled. We'll going to start IV amiodarone and switch to by mouth amiodarone tomorrow. I'm also increasing the dose of the beta skylar
[2017-09-10 11:59] LABS: Glucose,Whole Blood 222 mg/dL (75-99)
--- NOTE | 2017-09-10 12:43 | CONS ---
CONSULTATION DATE OF SERVICE: 09/10/17 REQUESTING PHYSICIAN: Dr. Alston. REASON FOR CONSULTATION: Elevated LFTs. HISTORY OF PRESENT ILLNESS: The patient is a 62-year-old pleasant white male who was admitted to the hospital with sepsis related to gangrenous toe. The patient following admission to the hospital was admitted due to respiratory distress and sepsis and was transferred to the intensive care unit and was intubated and was started on broad-spectrum antibiotics. We were consulted for evaluation of elevated LFTs. At time of admission hospital, serum transaminases were elevated in the range of 1000 and the next day, they went up to 3000. He had a prolonged episode of hypertension and also subsequently was in atrial fibrillation with RVR and was being managed by Cardiology. Overall, his condition improved. He was extubated 2 days ago. Presently remains in ICU, doing much better. Over the last 4 days serum transaminases are gradually improving. The patient denies any prior history of chronic liver disease. No history of jaundice or hepatitis in the past. No history of alcohol use. PAST MEDICAL HISTORY: Past medical history is significant for hypothyroidism, diabetes, gastroesophageal reflux disease, hypertension, atrial fibrillation, chronic kidney disease, COPD, coronary artery disease, and hyperlipidemia. MEDICATIONS: At home include Eliquis, Prozac, [place], Ativan, Synthroid, Lopressor, Protonix, Keflex. SOCIAL HISTORY: Chronic smoker. No alcohol use. FAMILY HISTORY: Unremarkable. PAST SURGICAL HISTORY: Abdominal aortogram, cardiac cath with stent, colonoscopy in the past. ALLERGIES: None. REVIEW OF SYSTEMS: Cardiopulmonary: No chest pain, shortness of breath. Genitourinary: He denies any symptoms. Neurology unremarkable. Psychiatric unremarkable. ENT vision unremarkable. Constitutional no recent weight loss. No fever, chills, night sweats. Endocrine as above. ENT vision unremarkable. Constitutional: No recent weight loss. PHYSICAL EXAMINATION: He appears comfortable. No apparent distress. VITAL SIGNS: Stable. Blood pressure is 120/70, pulse rate 110, and afebrile. HEENT examination unremarkable. Conjunctivae pink. Sclerae anicteric. Oral cavity no lesions. Neck no jugular venous distention or lymph node enlargement. Chest was clear to auscultation. HEART: Regular rate and rhythm. ABDOMEN: Soft. Bowel sounds are positive. No organomegaly. Extremities no pedal edema. Skin no rashes. NEUROLOGIC: Alert and oriented x3. No focal deficits. LABS: At the time of admission to the hospital on September 06, AST was 1758 and ALT was 1038, T bilirubin and alkaline phosphatase were normal. The next day on September 07, AST maxed at 3024, ALT 1827. Today AST is 198 and ALT 763, with normal T bilirubin and alk phosphatase. BUN is 23, creatinine 1.50. IMPRESSION: This is a patient who was admitted to the hospital with right gangrene of the toe followed by sepsis, acute respiratory failure. Transferred to the ICU, intubated, and was also found to be in atrial fibrillation with RVR and had prolonged hypertension resulting in elevated LFTs from ischemic hepatitis. The patient does not have any history of chronic liver disease. Over the last 3 days, his cardiopulmonary status has improved and his serum transaminases are gradually improving. Presently remains on broad-spectrum antibiotics. RECOMMENDATION: 1. Follow LFTs closely. 2. Since LFTs are improving as predicted, no need to have any further workup. Thank you for this consultation. SOLO / ABRAHAMN: [id number] /
--- NOTE | 2017-09-10 14:03 | P.PN ---
Subjective Progress Note Date: 09/10/17 Principal diagnosis: Acute hypoxic respiratory failure secondary to septic shock This is a 62-year-old -[place] male with history of chronic atrial fibrillation, chronic kidney disease stage III, coronary artery disease and previous stent placement, hypertension, hypothyroidism, patient was recently admitted to the hospital on 08/26/2017 and he was discharged on 08/26. Apparently the patient was admitted with left toe cellulitis secondary to trauma related to picking at table. Cultures showed anaerobic gram-positive cocci at the time. Patient was seen by infectious disease on consultation, and he was discharged home on Keflex. X-rays of the toe at the time failed to show any fracture, but the patient continued to have pain no documented fever, no chills, no shortness of breath. The patient was admitted actually yesterday, workup included x-rays of the foot, and there was diffuse soft tissue swelling, but no fracture. Venous Doppler of the left lower extremity showed no evidence of deep vein thrombosis. Patient was seen by orthopedics on consultation, and the left foot was noted to be malodorous, edematous, left toe with superficial wound, patient underwent debridement of the wound, he was felt to have a gangrenous toe. And severe peripheral vessel occlusive disease. Around noontime today, patient was noted to be hypotensive, bradycardic, and he was developing worsening shortness of breath with congestion. Patient was placed on non-rebreather mask, transferred to the intensive care unit, placed on dopamine, because of his bradycardia which looked like a high degree AV block. Seen by cardiology on consultation, and felt this is mostly related to his undergoing sepsis, recommended that we continue dopamine, no need for temporary or permanent pacemaker insertion. Not to mention the patient received his usual dose of metoprolol earlier today. I saw the patient in the ICU, and I reviewed his chest x-ray which showed clearly evidence of pulmonary edema or possibly a picture of ARDS, although the possibility of cardiogenic pulmonary edema is not entirely ruled out. ABG on a nonrebreather mask showed pO2 of 56 pCO2 of 26 pH of 7.22. His lactic acid was 7.8. And his CBC from earlier today showed WBC count of 12.0, it was 7.6 yesterday. Shortly after my evaluation, patient was intubated, placed on mechanical ventilation, he is presently on a tidal volume of 450, assist control rate of 16, FiO2 of 100%, and PEEP of 8. Follow-up chest x-ray post intubation is pending. After intubation, central line was placed because the patient will require most likely more pressors and higher doses of dopamine possibly and will need to be placed on propofol drip. In the meantime I have recommended that the patient is placed on the sepsis protocol, fluids were given earlier, and a stat echocardiogram was ordered to evaluate his new finding of pulmonary edema which may be noncardiogenic or possibly cardiogenic in nature. The patient himself is a very poor historian, most of the information was obtained from the chart itself. Presently the patient is on 15 mcg/kg/m of dopamine, he is also on antibiotics in the form of vancomycin and I will go ahead and add Zosyn. Patient was reevaluated today on 09/07/2017, remains on mechanical ventilation, however the FiO2 is down to 50%, and his PEEP is down to 5, the rest of the vent settings are the same. Chest x-ray showed significant improvement in what seemed to be an noncardiogenic pulmonary edema. His ABG showed a pO2 of above 400 pCO2 of 38 pH of 7.47. WBC count is 9 hemoglobin is 9.5. Basic metabolic profile is normal, BUN is 32 creatinine is 2.3 to consistent with acute kidney injury from his septic shock and his liver enzymes were also noted to be significantly elevated, and that is again related to his shock liver. Last night, the patient went into atrial fibrillation with RVR, hence dopamine was discontinued, and patient was switched to norepinephrine instead for hypotension. Remains on levo fed, patient is still in atrial fibrillation with RVR, hence I recommended adding Cardizem today. Cardiology is following, however no consultation, and no progress note on the chart so far. Dr. Warren was earlier seeing the patient and discussing his condition with his cousin at bedside. No specific recommendation of the chart regarding his atrial fibrillation and RVR, and his initial hypotension with bradycardia. Echocardiogram was done, relatively unremarkable. Chest x-ray was reviewed and showed a significant improvement in his interstitial edema noted yesterday before and after intubation. Lactic acid came down last night, however his urine output seems to be marginal, and I recommended more fluids to be given today. I have also recommended a Cardizem drip at 5 mg per hour with 10 mg bolus. Hoping to control his heart rate with Cardizem and fluid boluses. Patient was reevaluated today on 09/08/2017, remains on mechanical ventilation, however the patient was noted to be arousable, comfortable, in no distress even when he was placed on a pressure support and CPAP mode of mechanical ventilation. Chest x-ray showed minimal improvement in the aeration of the right upper lobe and right suprahilar area. Left side has significantly improved. Labs were all reviewed, ABG showed a pO2 of 82 pCO2 of 34 pH of 7.47. Urine output is excellent. PTT is 47. Patient had to be placed on amiodarone last night, and he converted to sinus rhythm, but he continues to have significant sinus arrhythmias. He is presently off Cardizem and off norepinephrine. Blood pressure seems to be stable. BUN remains elevated at 30 creatinine is 2.10 liver enzymes are improving but still elevated. Blood cultures and sputum cultures are pending, so far the blood cultures are negative. Patient was reevaluated today on 09/09/2017, patient was extubated yesterday, tolerated the extubation quite well, however I'm a bit concerned about the worsening airspace disease noted in both lower lobes. Patient is having intermittent cough and wheezing, as I have recommended placing the patient back on BiPAP, I have also recommended bronchodilators, and steroids were added. The patient himself does not seem to be in much distress, but his O2 saturation is down in the high 80s and low 90s on a 10 L high flow nasal cannula. As soon as I switched him to BiPAP, his oxygenation significantly improved. CBC is relatively normal hemoglobin is 9.4 however his labs are improving with improvement of BUN down to 20 creatinine is down to 1.69. And his urine output seems to be excellent. His liver enzymes are also improving. ALT is down to 1065 and his AST is down to 397 from 988 yesterday. Sputum Gram stain and culture is nondiagnostic, blood cultures are negative in the last few days. Again the chest x-ray seems to be a bit concerning to me, and if it remains as such, may have to even consider bronchoscopy and evaluation of both lower lobes. Patient was reevaluated today on 09/10/2017, feeling much better today, he is back to nasal cannula, off BiPAP. Chest x-ray showed significant improvement, hence I am more convinced that the findings in the lungs are mostly findings of congestive heart failure and not pneumonia considering the dramatic improvement overnight with diuretics. The possibility of underlying pneumonia is not entirely ruled out, but at this point in time I feel it is unlikely. Again this is based on the fact that the patient had a dramatic improvement in chest x -ray after diuresis, patient responded to Lasix and he put out almost 2 L of urine yesterday. With the dramatic improvement in chest x-ray noted today.patient is back on IV amiodarone, he developed A. fib and RVR again, and I believe that is the main reason the patient is going into failure intermittently.all his labs were reviewed creatinine continues to improve down to 1.50.CBC is much better and hemoglobin is holding at 9.7.PTT is 52 therapeutic. Objective - Vital Signs Vital signs: Vital Signs Temp 97.9 F 09/10/17 12:00 Pulse 135 H 09/10/17 12:00 Resp 21 09/10/17 12:00 BP 102/69 09/10/17 08:00 Pulse Ox 98 09/10/17 12:00 Intake & Output 09/09/17 09/10/17 09/10/17 18:59 06:59 18:59 Intake Total 1987.500 562.5 607.5 Output Total 2870 570 295 Balance -882.500 -7.5 312.5 Weight 79.1 kg Intake: IV 787.5 562.5 357.5 Magnesium Sulfate-D5w Pmx 100 1 gm In Dextrose/Water 1 100ml.bag @ 100 mls/hr IVPB Q1H AJ Rx#: [id number] Piperacillin-Tazobactam 3 87.5 12.5 37.5 .375 gm In Dextrose/Water 1 50ml.bag @ 12.5 mls/hr IVPB Q8HR AJ Rx#: [id number] Sodium Chloride 0.9% 1, 600 550 320 000 ml @ 50 mls/hr IV . Q20H AJ Rx#:[id number] Intake, IV Titration 500.000 Amount Heparin Sod,Pork in 0.45% 500.000 NaCl 25,000 unit In 0.45 % NaCl 1 500ml.bag @ 12 UNITS/KG/HR 18.74 mls/hr IV .Q24H AJ Rx#: [id number] Oral 700 250 Output: Urine 2870 570 295 Other: Voiding Method Indwelling Catheter Indwelling Catheter Indwelling Catheter ABP, PAP, CO, CI - Last Documented Arterial Blood Pressure 104/68 - Exam Physical Exam: Revealed a 62-year-old male, in no distress, presently on high flow nasal cannula. Looks very comfortable. HEENT:[Neck is supple.] [No neck masses.] [No thyromegaly.] [No JVD.] Chest: [Minimal crackles noted at the bases bilaterally.nor rhonchi no wheezes today. Cardiac Exam: [Irregular irregular, tachycardic, Normal S1 and S2, no S3 gallop , no murmur.] Abdomen: [Soft, nontender, no megaly, no rebound, no guarding, normal bowel sounds.] Extremities: [No clubbing, no edema, no cyanosis. Left foot was examined, wrapped with sterile dressing, has been debrided. Neurological Exam: Alert oriented 3, good no gross focal neurologic deficit. Psychiatric: Blunted affect, otherwise unremarkable. Musculoskeletal: Normal range of motion, no deformities except the swelling noted in the left big toe. And a superficial laceration of the left big toe. - Labs CBC & Chem 7: 09/10/17 04:35 09/10/17 04:35 Labs: Abnormal Lab Results - Last 24 Hours (Table) 09/09/17 09/09/17 09/10/17 Range/Units 14:00 20:07 04:35 RBC 3.56 L (4.30-5.90) m/uL Hgb 9.7 L (13.0-17.5) gm/dL Hct 32.1 L (39.0-53.0) % MCHC 30.1 L (31.0-37.0) g/dL Neutrophils # 8.7 H (1.3-7.7) k/uL APTT 49.1 H (22.0-30.0) sec Chloride (98-107) mmol/L BUN (9-20) mg/dL Creatinine (0.66-1.25) mg/dL Glucose (74-99) mg/dL POC Glucose (mg/dL) 204 H (75-99) mg/dL AST (17-59) U/L ALT (21-72) U/L Albumin (3.5-5.0) g/dL 09/10/17 09/10/17 09/10/17 Range/Units 04:35 04:35 07:02 RBC (4.30-5.90) m/uL Hgb (13.0-17.5) gm/dL Hct (39.0-53.0) % MCHC (31.0-37.0) g/dL Neutrophils # (1.3-7.7) k/uL APTT 52.0 H (22.0-30.0) sec Chloride 108 H (98-107) mmol/L BUN 23 H (9-20) mg/dL Creatinine 1.50 H (0.66-1.25) mg/dL Glucose 160 H (74-99) mg/dL POC Glucose (mg/dL) 180 H (75-99) mg/dL AST 198 H (17-59) U/L ALT 763 H (21-72) U/L Albumin 2.9 L (3.5-5.0) g/dL 09/10/17 09/10/17 Range/Units 07:39 11:58 RBC (4.30-5.90) m/uL Hgb (13.0-17.5) gm/dL Hct (39.0-53.0) % MCHC (31.0-37.0) g/dL Neutrophils # (1.3-7.7) k/uL APTT (22.0-30.0) sec Chloride (98-107) mmol/L BUN (9-20) mg/dL Creatinine (0.66-1.25) mg/dL Glucose (74-99) mg/dL POC Glucose (mg/dL) 147 H 222 H (75-99) mg/dL AST (17-59) U/L ALT (21-72) U/L Albumin (3.5-5.0) g/dL Microbiology - Last 24 Hours (Table) 09/05/17 10:10 Blood Culture - Preliminary Blood No Growth after 120 hours Assessment and Plan Assessment: Impression: 1 acute hypoxic respiratory failure secondary to acute sepsis and septic shock, most likely source is left big toe cellulitis and gangrene. underlying nosocomial pneumonia is not entirely ruled out, but felt to be less likely based on the fact that the patient diuresed significantly and his chest x-ray showed almost significant improvement in the last 24 hours with diuresis. Hence the findings are findings of congestive heart failure secondary to atrial fibrillation and RVR, again this is congestive heart failure secondary to cardiac arrhythmia./Considered systolic in nature. 2 intermittent episodes of sinus bradycardia and atrial fibrillation with RVR, patient is back on amiodarone today, and that is being addressed by cardiology on consultation. 3 history of underlying coronary artery disease and previous stent placement 4 history of chronic atrial fibrillation, on eliquis 5 history of underlying COPD, patient is currently a smoker. 6 history of essential hypertension 7 history of depression 8 history of peripheral vessel occlusive disease 9 history of hypothyroidism 10 history of chronic kidney disease stage III from nephrosclerosis. 11 acute cellulitis and gangrene of the left big toe. Status post debridement. Recommendation: Continue present treatment plan, including antibiotics, diuretics, antiarrhythmic agents, bronchodilators, steroids, clearly the patient had a significant improvement over the last 24 hours, but I will keep him in the ICU for 24 more hours, and likely transfer out of the ICU tomorrow.overall prognosis remains guarded. Discussed his condition with his cousin at bedside. Time with Patient: Less than 30
[2017-09-10] MEDS: SODIUM CHLORIDE 0.9% 1,000 ML IV SCH ×2 (14:29→23:43)
[2017-09-10] MEDS: HEPARIN SOD,PORK IN 0.45% NACL 25,000 UNIT in 0.45% NACL 1 500ML.BAG IV SCH ×2 (14:51→23:50)
[2017-09-10] MEDS: FUROSEMIDE 20 MG TAB PO SCH (15:12)
[2017-09-10] MEDS: HYDROmorphone 4 MG/ML 1 ML SYRINGE IVP PRN (15:12)
[2017-09-10 17:26] LABS: Glucose,Whole Blood 185 mg/dL (75-99)
[2017-09-10 18:59] LABS: Hemoglobin A1C 6.1 % (4.0-6.0)
[2017-09-10 21:00] LABS: Glucose,Whole Blood 163 mg/dL (75-99)
[2017-09-10] MEDS: METOPROLOL TARTRATE 50 MG TAB PO SCH (21:06)
[2017-09-11] MEDS ORDERED: PROPOFOL 100 ML IV ONE (03:47)
[2017-09-11] MEDS ORDERED: PROPOFOL 10 MG/ML 20 ML VIAL IV ONE (03:55)
[2017-09-11] MEDS ORDERED: MIDAZOLAM 2 MG/2 ML VIAL ONE (03:55)
[2017-09-11] MEDS ORDERED: ROCURONIUM BROMIDE 10 MG/ML 10 ML VIAL IV ONE ×2 (03:55→04:00)
[2017-09-11] MEDS ORDERED: SUCCINYLCHOLINE CHLORIDE 100 MG/5 ML SYR IV ONE ×2 (03:55→04:00)
[2017-09-11] MEDS ORDERED: MIDAZOLAM (PF) 1 MG/ML 5 ML VIAL ONE (04:00)
[2017-09-11] MEDS ORDERED: FUROSEMIDE 10 MG/ML 4 ML VIAL IV STA (04:02)
[2017-09-11 04:14] LABS: ABG Base Excess -10.5 mmol/L; ABG HCO3 19 mmol/L (21-25); ABG Oxygen Saturation 58.9 % (94-97); ABG PCO2 55 mmHg (35-45); ABG PO2 49 mmHg (83-108); ABG TCO2 20 mmol/L (19-24)
[2017-09-11 04:27] LABS: ABG PH 7.14 (7.35-7.45)
--- NOTE | 2017-09-11 04:39 | P.PN ---
Progress Note - Text Progress Note Date: 09/11/17 I was called about this patient around 4 AM, patient apparently developed a sudden episode of shortness of breath and profound desaturation with acute respiratory failure, hypoxic and hypercapnic. recommended immediate intubation , and a chest x-ray. I reviewed the chest x-ray and clearly shows evidence of pulmonary edema. This is a dramatic worsening of the chest x-ray compared with a chest x-ray done in the last 24 hours. ABG post intubation showed PO2 of 49, PCO2 of 55, and pH of 7.21. Patient was placed on assist control rate of 14, tidal volume of 500, PEEP of 10, 100% FiO2. the ABG which I mentioned earlier was immediately post intubation. Clearly, the patient is going into flash pulmonary edema, I am strongly suspecting this is a cardiogenic pulmonary edema , hence I am recommending a repeat echocardiogram, although his last echocardiogram was done 6 days ago was reported as normal. patient would have to be reevaluated by cardiology. In the meantime we will continue his cardiac meds including amiodarone and I will continue to diurese the patient. Continue heparin for his paroxysmal atrial fibrillation.
[2017-09-11] MEDS: AMIODARONE 450 MG in DEXTROSE 5% IN WATER 250 ML IV SCH ×4 (04:43→09:42)
--- NOTE | 2017-09-11 04:57 | XR ---
EXAM: XR Chest, 1 View CLINICAL HISTORY: Reason: Shortness of breath TECHNIQUE: Frontal view of the chest. COMPARISON: 09/10/2017 at 0608 hrs. FINDINGS: Lungs: Marked increase of bilateral airspace disease throughout the lungs, greater on the right side. Pleural space: No evidence of pleural effusion No pneumothorax. Heart: Unremarkable. No cardiomegaly. Mediastinum: Unremarkable. Bones/joints: Unremarkable. Tubes, lines and devices: New endotracheal tube with the tip 6.5 cm above fátima. New enteric tube. Distal end off edge of image. IMPRESSION: 1. Marked increase of bilateral airspace disease throughout the lungs, greater on the right side. May represent edema, pneumonia, other etiology. 2. New endotracheal and NG tubes
[2017-09-11 05:02] LABS: Anisocytosis Slight; Basophils % (A) 0 %; Eosinophils % (A) 0 %; HCT 33.4 % (39.0-53.0); HGB 9.9 gm/dL (13.0-17.5); Hypochromasia Marked; Lymphocytes # (A) 0.9 k/uL (1.0-4.8); Lymphocytes % (A) 6 %; MCH 27.8 pg (25.0-35.0); MCHC 29.6 g/dL (31.0-37.0); MCV 94.1 fL (80.0-100.0); Mean Platelet Volume 9.4; Monocytes # (A) 0.2 k/uL (0-1.0); Monocytes % (A) 2 %; Neutrophils % (A) 91 %; Platelet Count 289 k/uL (150-450); RBC 3.55 m/uL (4.30-5.90); RDW 16.3 % (11.5-15.5); WBC 14.3 k/uL (3.8-10.6)
--- NOTE | 2017-09-11 05:22 | PN ---
PROGRESS NOTE DATE OF SERVICE: 09/10/2017 PRESENTING COMPLAINT: Short of breath. INTERVAL HISTORY: This is a patient initially admitted with infected left big toe from recent trauma, failed outpatient treatment for infection. Went into respiratory distress, was intubated, next successfully extubated. The patient remains in the ICU with intermittent use of BiPAP. The patient has been having A. Fib with rapid ventricular runs and was put on IV amiodarone. The patient's dose of Lopressor was increased. The patient is also on IV heparin and tolerating his diet. Sitting up in bed, communicating. REVIEW OF SYSTEMS: Review of systems done for constitutional, cardiovascular, GI, pulmonary; relevant findings as above. MEDICATIONS: Current medications are reviewed that include DuoNeb, IV amiodarone, p.o. Lasix, IV heparin, Synthroid, IV Solu-Medrol, Levophed that is off, IV Zosyn. PHYSICAL EXAMINATION: On examination, temperature 98.2, pulse 120, respirations 16, blood pressure 116/71, pulse ox 96% on 5 L. GENERAL APPEARANCE: Sitting up in bed, far more awake. EYES: Pupils equal. Conjunctivae pale. HEENT: External appearance of nose and ears normal. Oral cavity normal. NECK: JVD not raised. Mass not palpable. RESPIRATORY: Effort normal. LUNGS: Diminished breath sounds. CARDIOVASCULAR: Heart sounds irregular. No edema. ABDOMEN: Soft, nontender. Liver and spleen not palpable. No mass palpable. PSYCHIATRY: Alert and oriented x3. Mood and affect normal. EXTREMITIES: Left foot in a dressing. INVESTIGATIONS: White count 10.2, hemoglobin 9.7. Potassium 4.5, BUN 23, creatinine 1.50. AST 198, ALT 763. Blood cultures negative. Sputum culture is unremarkable. Telemetry showed EKG. Chest x-ray show improved aeration. ASSESSMENT: 1. Acute big toe cellulitis and wound secondary to trauma, having failed outpatient treatment, possibly source of sepsis. 2. Acute hypoxic respiratory failure secondary to sepsis requiring ventilator assistance, now patient is off the ventilator, currently on 5 L of oxygen. 3. Bilateral pneumonia suspect gram-negative organism, possibly cause of sepsis too. 4. Severe metabolic acidosis, which is improved. 5. Acute kidney injury secondary to acute tubular necrosis secondary to sepsis and from hemodynamic mismatch with some improvement. 6. Acute shock liver with biochemical improvement, likely from hypotension. 7. Persistent atrial fibrillation with rapid ventricular rate, in rhythm. The patient is on Eliquis, now on amiodarone. 8. Chronic kidney disease stage 3 from nephrosclerosis, baseline creatinine is about 1.3. 9. Acute chronic obstructive pulmonary disease exacerbation in a current smoker. 10.Chronic nicotine dependence, patient is a cigarette smoker. 11.Coronary artery disease, prior history of stent. 12.Hypothyroidism. 13.Essential hypertension history. 14.Hyperlipidemia. 15.Peripheral arterial disease. 16.Depression, anxiety, not otherwise specified. 17.IV heparin monitoring. PLAN: Continue current medication and treatment plan. Care was discussed with the patient. Patient remains on antibiotics, IV heparin, IV amiodarone, antibiotics, oxygen support. Per Dr. Barone, the patient may have had some fluid overload probably from the arrhythmia and did receive IV Lasix earlier. MMODL / ABRAHAMN: [id number] /
[2017-09-11 05:37] LABS: Albumin 2.9 g/dL (3.5-5.0); Calcium 7.9 mg/dL (8.4-10.2); Phosphorus 6.1 mg/dL (2.5-4.5); Total Bilirubin 0.4 mg/dL (0.2-1.3); Total Protein 6.4 g/dL (6.3-8.2)
--- NOTE | 2017-09-11 06:47 | PN ---
PROGRESS NOTE DATE OF SERVICE: 09/10/2017 REASON FOR FOLLOWUP: Left first and second toe cellulitis and possible pneumonia. INTERVAL HISTORY: The patient is afebrile. He has been breathing comfortably. Denies any significant chest pain. Occasional cough. No abdominal pain or any diarrhea. No worsening pain in the left foot area. PHYSICAL EXAMINATION: On examination, blood pressure 131/62 with a pulse of 82, temperature of 98. He is 95% on 5 L nasal cannula. General description is a middle-aged male lying in bed in no distress. RESPIRATORY SYSTEM: Unlabored breathing with decreased breath sounds at the bases. No wheeze. HEART: S1, S2. Regular rate and rhythm. ABDOMEN: Soft, no tenderness. Left foot is currently dressed up. No obvious drainage on the dressing. LABS: Hemoglobin 9.7, white count 10.2 with a BUN of 23, creatinine 1.50. Blood and sputum cultures have been negative. DIAGNOSTIC IMPRESSION AND PLAN: Patient with left first and second toe wound cellulitis. Previous culture has been negative. Patient is waiting for possible angiogram before any further procedure for the first and second toe. The patient is currently on Zosyn, that will be continued. It should cover the pneumonia as well. Continue supportive care. MMODL / IJN: [id number] /
[2017-09-11 07:00] LABS: Glucose,Whole Blood 186 mg/dL (75-99)
[2017-09-11] MEDS: INSULIN ASPART 100 UNIT/ML 1 ML 10 ML VIAL SQ SCH ×4 (07:03→23:34)
[2017-09-11] MEDS: IPRATROPIUM-ALBUTEROL 3 ML NEB INHALATION PRN (07:34)
[2017-09-11 08:25] LABS: ABG Base Excess -4.2 mmol/L; ABG HCO3 21 mmol/L (21-25); ABG Oxygen Saturation 96.1 % (94-97); ABG PCO2 37 mmHg (35-45); ABG PH 7.37 (7.35-7.45); ABG PO2 88 mmHg (83-108); ABG TCO2 22 mmol/L (19-24)
[2017-09-11] MEDS: PIPERACILLIN-TAZOBACTAM 3.375 GM in DEXTROSE/WATER 1 50ML.BAG IVPB SCH ×3 (08:37→23:34)
--- NOTE | 2017-09-11 08:58 | XR ---
EXAMINATION TYPE: XR chest 1V portable DATE OF EXAM: 09/11/2017 CLINICAL HISTORY: Difficulty breathing and flash pulmonary edema progress study. TECHNIQUE: Single AP portable frontal view of the chest is obtained. COMPARISON: Chest x-ray from earlier today FINDINGS: An endotracheal tube and orogastric tube are stable. There is right greater than left diff use central alveolar and interstitial opacities stable or slightly improved with suspected tiny bilat eral pleural effusions. No pneumothorax is seen bilaterally. Cardiac silhouette size is stable and wi thin normal limits. Osseous structures are intact. IMPRESSION: Right greater than left bilateral alveolar and interstitial edema and/or infiltrate stabl e or slightly improved from earlier today.
--- NOTE | 2017-09-11 09:30 | P.PN ---
Subjective Progress Note Date: 09/11/17 Principal diagnosis: Respiratory failure Progress note dated 09/11/2017 This is a 62-year-old black male who was admitted on September 06. He apparently was initially admitted with a diagnosis of sepsis with a gangrenous toe. He started in the ER went to the general medical floor and 18 was called because of respiratory failure and acidosis. He that reason he was intubated on September 06 and transferred to the ICU. He was extubated initially on September 08 and then reintubated again on September 11. This was today at 4:00 in the morning. The patient's x-ray shows diffuse bilateral infiltrates worse on the right than on the left side. His current ventilator settings include the assist control mode, rate of 12, an FiO2 of 70%, tidal Byam of 500, PEEP of 10. Arterial blood gases show a PaO2 of 88 a PaCO2 of 37 and a pH of 7.36. His current IVs include a saline IV at 20 mL an hour, heparin via weightbase protocol for atrial fibrillation propofol at 35 mics per kilogram per minute and Cordarone at 0.5 mg/m. The patient's x-rays labs medications are all reviewed. Microbiology is all negative. I asked the nurse to resume his tube feeds. Objective - Vital Signs Vital signs: Vital Signs Temp 97.6 F 09/11/17 08:30 Pulse 51 L 09/11/17 09:00 Resp 18 09/11/17 09:00 BP 85/54 09/11/17 09:00 Pulse Ox 99 09/11/17 09:00 Intake & Output 09/10/17 09/11/17 09/11/17 18:59 06:59 18:59 Intake Total 1001.368 477.147 85.0 Output Total 585 740 425 Balance 416.368 -262.853 -340.0 Weight 80.4 kg Intake: IV 537.5 290.0 85.0 Piperacillin-Tazobactam 3 87.5 50.0 25.0 .375 gm In Dextrose/Water 1 50ml.bag @ 12.5 mls/hr IVPB Q8HR AJ Rx#: [id number] Sodium Chloride 0.9% 1, 450 240 60 000 ml @ 20 mls/hr IV . Q24H AJ Rx#:[id number] Intake, IV Titration 213.868 187.147 Amount Amiodarone 450 mg In 213.868 187.147 Dextrose 5% in Water 250 ml @ 1 MG/MIN 33.33 mls/ hr IV .Q7H31M [facility] Rx#: [id number] Oral 250 Output: Urine 585 740 425 Other: Voiding Method Indwelling Catheter Indwelling Catheter ABP, PAP, CO, CI - Last Documented Arterial Blood Pressure 108/58 - Exam No acute distress, currently intubated with an orally placed endotracheal tube and NG tube HEENT examination is grossly unremarkable. Mucous membranes are moist. No oral lesions. Neck supple. Full range of motion. No adenopathy thyromegaly or neck vein distention. Cardiovascular examination reveals irregular rhythm rate. S1-S2 normal. No S3 or S4. No discernible murmur noted. Lungs reveal coarse bilateral breath sounds. Breath sounds are diminished. No crackles. Breath sounds are diminished more on the right side than the left. Abdomen soft bowel sounds are heard. No masses or tenderness. Extremities are intact. No cyanosis clubbing or edema. Skin is without rash or lesion. Neurologic examination could not be performed. - Labs CBC & Chem 7: 09/11/17 04:55 09/11/17 04:55 Labs: Abnormal Lab Results - Last 24 Hours (Table) 09/09/17 09/10/17 09/10/17 Range/Units 04:12 11:58 17:23 WBC (3.8-10.6) k/uL RBC (4.30-5.90) m/uL Hgb (13.0-17.5) gm/dL Hct (39.0-53.0) % MCHC (31.0-37.0) g/dL RDW (11.5-15.5) % Neutrophils # (1.3-7.7) k/uL Lymphocytes # (1.0-4.8) k/uL APTT (22.0-30.0) sec ABG pH (7.35-7.45) ABG pCO2 (35-45) mmHg ABG pO2 (83-108) mmHg ABG HCO3 (21-25) mmol/L ABG O2 Saturation (94-97) % Chloride (98-107) mmol/L Carbon Dioxide (22-30) mmol/L BUN (9-20) mg/dL Creatinine (0.66-1.25) mg/dL Glucose (74-99) mg/dL POC Glucose (mg/dL) 222 H 185 H (75-99) mg/dL Hemoglobin A1c 6.1 H (4.0-6.0) % Calcium (8.4-10.2) mg/dL Phosphorus (2.5-4.5) mg/dL AST (17-59) U/L ALT (21-72) U/L Albumin (3.5-5.0) g/dL 09/10/17 09/11/17 09/11/17 Range/Units 20:58 04:13 04:55 WBC 14.3 H (3.8-10.6) k/uL RBC 3.55 L (4.30-5.90) m/uL Hgb 9.9 L (13.0-17.5) gm/dL Hct 33.4 L (39.0-53.0) % MCHC 29.6 L (31.0-37.0) g/dL RDW 16.3 H (11.5-15.5) % Neutrophils # 13.0 H (1.3-7.7) k/uL Lymphocytes # 0.9 L (1.0-4.8) k/uL APTT (22.0-30.0) sec ABG pH 7.14 L* (7.35-7.45) ABG pCO2 55 H (35-45) mmHg ABG pO2 49 L (83-108) mmHg ABG HCO3 19 L (21-25) mmol/L ABG O2 Saturation 58.9 L (94-97) % Chloride (98-107) mmol/L Carbon Dioxide (22-30) mmol/L BUN (9-20) mg/dL Creatinine (0.66-1.25) mg/dL Glucose (74-99) mg/dL POC Glucose (mg/dL) 163 H (75-99) mg/dL Hemoglobin A1c (4.0-6.0) % Calcium (8.4-10.2) mg/dL Phosphorus (2.5-4.5) mg/dL AST (17-59) U/L ALT (21-72) U/L Albumin (3.5-5.0) g/dL 09/11/17 09/11/17 09/11/17 Range/Units 04:55 06:59 07:40 WBC (3.8-10.6) k/uL RBC (4.30-5.90) m/uL Hgb (13.0-17.5) gm/dL Hct (39.0-53.0) % MCHC (31.0-37.0) g/dL RDW (11.5-15.5) % Neutrophils # (1.3-7.7) k/uL Lymphocytes # (1.0-4.8) k/uL APTT 57.5 H (22.0-30.0) sec ABG pH (7.35-7.45) ABG pCO2 (35-45) mmHg ABG pO2 (83-108) mmHg ABG HCO3 (21-25) mmol/L ABG O2 Saturation (94-97) % Chloride 109 H (98-107) mmol/L Carbon Dioxide 19 L (22-30) mmol/L BUN 33 H (9-20) mg/dL Creatinine 1.78 H (0.66-1.25) mg/dL Glucose 211 H (74-99) mg/dL POC Glucose (mg/dL) 186 H (75-99) mg/dL Hemoglobin A1c (4.0-6.0) % Calcium 7.9 L (8.4-10.2) mg/dL Phosphorus 6.1 H (2.5-4.5) mg/dL AST 124 H (17-59) U/L ALT 553 H (21-72) U/L Albumin 2.9 L (3.5-5.0) g/dL Microbiology - Last 24 Hours (Table) 09/05/17 10:10 Blood Culture - Preliminary Blood No Growth after 120 hours Assessment and Plan Assessment: Assessment Acute hypoxemic respiratory failure secondary to sepsis/septic shock with a gangrenous toe and underlying cellulitis. Possible bilateral nosocomial pneumonia Atrial fibrillation/RVR Congestive heart failure Intermittent sinus bradycardia History of CAD with previous stent placement History of COPD History of essential hypertension History of depression Peripheral vascular occlusive disease Hypothyroidism Hypertensive nephrosclerosis with chronic kidney disease, stage III Acute cellulitis and gangrene of the left big toe, status post debridement Plan: Plan dated 09/11/2017 The patient developed acute respiratory failure early this morning. My partner was called. He was reintubated. I'll make a slight change in the vent settings. We'll go with a low titer volume strategy. We'll drop a tidal volume from 500-400. We'll bump the rate from 16-24. PEEP will be increased from 10-13. I will review the labs x-rays a medications. We'll resume tube feeds. Prognosis is poor. Additional recommendations and suggestions are forthcoming. Time with Patient: Greater than 30
[2017-09-11] MEDS: NICOTINE 21MG/24HR PATCH TRANSDERM SCH (09:43)
[2017-09-11] MEDS: LEVOTHYROXINE 25 MCG TAB PO SCH (09:43)
[2017-09-11] MEDS: CHLORHEXIDINE GLUCONATE 15 ML CUP MUCOUS MEM SCH ×2 (09:43→20:50)
[2017-09-11] MEDS: PANTOPRAZOLE 40 MG/10 ML VIAL IVP SCH (09:44)
[2017-09-11] MEDS: FLUoxetine HCL 20 MG CAP PO SCH (09:50)
[2017-09-11] MEDS: SENNOSIDES 8.6 MG TAB PO SCH (09:51)
[2017-09-11] MEDS: SODIUM CHLORIDE 0.9% 1,000 ML IV SCH (09:51)
--- NOTE | 2017-09-11 10:42 | P.PN ---
Subjective Progress Note Date: 09/11/17 This is a 62-year-old of gentleman was admitted with gangrenous left foot and is being evaluated by vascular surgeon. Patient had intermittent bouts of atrial fibrillation with RVR. Yesterday patient was clinically stable, but he was in A. fib with RVR. He was initiated on IV amiodarone along with beta skylar. Patient converted to sinus rhythm yesterday afternoon and tended to be bradycardic. Apparently a half hour later, patient went into respiratory failure and evidence of pulmonary edema. Mostly he seemed to be right-sided infiltrate. Patient required intubation. Patient maintains sinus rhythm but tends to be somewhat bradycardic. His echocardiogram showed good LV function with severe mitral regurgitation. Patient had similar findings in August also. The etiology of sudden respiratory failure and suspected pulmonary edema is not clear. Patient is diuresing well. He is on Lasix. We'll going to discontinue amiodarone and use Lopressor 25 mg 3 times a day. If the heart rate is below 70, We will hold Lopressor. Further recommendations depend upon the evaluation rover tender. Vascular surgeons also following him for the gangrene. Objective - Vital Signs Vital signs: Vital Signs Temp 97.6 F 09/11/17 08:30 Pulse 46 L 09/11/17 10:30 Resp 29 H 09/11/17 10:30 BP 85/61 09/11/17 10:30 Pulse Ox 100 09/11/17 10:30 Intake & Output 09/10/17 09/11/17 09/11/17 18:59 06:59 18:59 Intake Total 1001.368 477.147 117.5 Output Total 585 740 500 Balance 416.368 -262.853 -382.5 Weight 80.4 kg 82.8 kg Intake: IV 537.5 290.0 117.5 Piperacillin-Tazobactam 3 87.5 50.0 37.5 .375 gm In Dextrose/Water 1 50ml.bag @ 12.5 mls/hr IVPB Q8HR AJ Rx#: [id number] Sodium Chloride 0.9% 1, 450 240 80 000 ml @ 20 mls/hr IV . Q24H AJ Rx#:[id number] Intake, IV Titration 213.868 187.147 Amount Amiodarone 450 mg In 213.868 187.147 Dextrose 5% in Water 250 ml @ 1 MG/MIN 33.33 mls/ hr IV .Q7H31M [facility] Rx#: [id number] Oral 250 Output: Urine 585 740 500 Other: Voiding Method Indwelling Catheter Indwelling Catheter ABP, PAP, CO, CI - Last Documented Arterial Blood Pressure 108/56 - Exam GENERAL EXAM: Patient is intubated and sedated HEENT: Normocephalic. N CHEST: No chest wall deformity. LUNGS: Diminished breath sounds and diffuse rhonchi] HEART: [S1 and S2 normal ABDOMEN: No hepatosplenomegaly, normal bowel sounds, no guarding or rigidity. SKIN: No rashes CENTRAL NERVOUS SYSTEM: No focal deficits. EXTREMITIES: Left leg is wrapped - Labs CBC & Chem 7: 09/11/17 04:55 09/11/17 04:55 Labs: Abnormal Lab Results - Last 24 Hours (Table) 09/09/17 09/10/17 09/10/17 Range/Units 04:12 11:58 17:23 WBC (3.8-10.6) k/uL RBC (4.30-5.90) m/uL Hgb (13.0-17.5) gm/dL Hct (39.0-53.0) % MCHC (31.0-37.0) g/dL RDW (11.5-15.5) % Neutrophils # (1.3-7.7) k/uL Lymphocytes # (1.0-4.8) k/uL APTT (22.0-30.0) sec ABG pH (7.35-7.45) ABG pCO2 (35-45) mmHg ABG pO2 (83-108) mmHg ABG HCO3 (21-25) mmol/L ABG O2 Saturation (94-97) % Chloride (98-107) mmol/L Carbon Dioxide (22-30) mmol/L BUN (9-20) mg/dL Creatinine (0.66-1.25) mg/dL Glucose (74-99) mg/dL POC Glucose (mg/dL) 222 H 185 H (75-99) mg/dL Hemoglobin A1c 6.1 H (4.0-6.0) % Calcium (8.4-10.2) mg/dL Phosphorus (2.5-4.5) mg/dL AST (17-59) U/L ALT (21-72) U/L Albumin (3.5-5.0) g/dL 09/10/17 09/11/17 09/11/17 Range/Units 20:58 04:13 04:55 WBC 14.3 H (3.8-10.6) k/uL RBC 3.55 L (4.30-5.90) m/uL Hgb 9.9 L (13.0-17.5) gm/dL Hct 33.4 L (39.0-53.0) % MCHC 29.6 L (31.0-37.0) g/dL RDW 16.3 H (11.5-15.5) % Neutrophils # 13.0 H (1.3-7.7) k/uL Lymphocytes # 0.9 L (1.0-4.8) k/uL APTT (22.0-30.0) sec ABG pH 7.14 L* (7.35-7.45) ABG pCO2 55 H (35-45) mmHg ABG pO2 49 L (83-108) mmHg ABG HCO3 19 L (21-25) mmol/L ABG O2 Saturation 58.9 L (94-97) % Chloride (98-107) mmol/L Carbon Dioxide (22-30) mmol/L BUN (9-20) mg/dL Creatinine (0.66-1.25) mg/dL Glucose (74-99) mg/dL POC Glucose (mg/dL) 163 H (75-99) mg/dL Hemoglobin A1c (4.0-6.0) % Calcium (8.4-10.2) mg/dL Phosphorus (2.5-4.5) mg/dL AST (17-59) U/L ALT (21-72) U/L Albumin (3.5-5.0) g/dL 09/11/17 09/11/17 09/11/17 Range/Units 04:55 06:59 07:40 WBC (3.8-10.6) k/uL RBC (4.30-5.90) m/uL Hgb (13.0-17.5) gm/dL Hct (39.0-53.0) % MCHC (31.0-37.0) g/dL RDW (11.5-15.5) % Neutrophils # (1.3-7.7) k/uL Lymphocytes # (1.0-4.8) k/uL APTT 57.5 H (22.0-30.0) sec ABG pH (7.35-7.45) ABG pCO2 (35-45) mmHg ABG pO2 (83-108) mmHg ABG HCO3 (21-25) mmol/L ABG O2 Saturation (94-97) % Chloride 109 H (98-107) mmol/L Carbon Dioxide 19 L (22-30) mmol/L BUN 33 H (9-20) mg/dL Creatinine 1.78 H (0.66-1.25) mg/dL Glucose 211 H (74-99) mg/dL POC Glucose (mg/dL) 186 H (75-99) mg/dL Hemoglobin A1c (4.0-6.0) % Calcium 7.9 L (8.4-10.2) mg/dL Phosphorus 6.1 H (2.5-4.5) mg/dL AST 124 H (17-59) U/L ALT 553 H (21-72) U/L Albumin 2.9 L (3.5-5.0) g/dL Microbiology - Last 24 Hours (Table) 09/05/17 10:10 Blood Culture - Preliminary Blood No Growth after 120 hours Assessment and Plan (1) CAD (coronary artery disease) Current Visit: Yes Status: Acute Code(s): I25.10 - ATHSCL HEART DISEASE OF [place] CORONARY ARTERY W/O ANG PCTRS SNOMED Code(s): 74281898 (2) Peripheral vascular disease Current Visit: Yes Status: Acute Code(s): I73.9 - PERIPHERAL VASCULAR DISEASE, UNSPECIFIED SNOMED Code(s): 420243488 (3) New onset a-fib Current Visit: No Status: Acute Code(s): I48.91 - UNSPECIFIED ATRIAL FIBRILLATION SNOMED Code(s): 53958367 (4) Acute pulmonary edema Current Visit: Yes Status: Acute Code(s): J81.0 - ACUTE PULMONARY EDEMA SNOMED Code(s): 32280927 (5) Pneumonia Current Visit: Yes Status: Acute Code(s): J18.9 - PNEUMONIA, UNSPECIFIED ORGANISM SNOMED Code(s): 154201308 Plan: We will continue with IV diuretics. We'll discontinue amiodarone. Continue the small dose of beta skylar and hold it if the heart rate is below70. Patient does have severe mitral regurgitation. If necessary will made with [facility] to further assess the significance of mitral regurgitation. However, patient may not be a candidate for valve repair at this time, Given the gangrenous foot and sepsis. Prognosis is guarded.
--- NOTE | 2017-09-11 10:51 | ECHOF ---
Referral Reason:flash pulmonary edema MEASUREMENTS -------- HEIGHT: 180.3 cm WEIGHT: 78.9 kg BP: 109/60 RVIDd: 2.5 cm (< 3.3) IVSd: 1.0 cm (0.6 - 1.1) LVIDd: 6.0 cm (3.9 - 5.3) LVPWd: 1.1 cm (0.6 - 1.1) IVSs: 1.5 cm LVIDs: 3.8 cm LVPWs: 1.5 cm LA Diam: 3.8 cm (2.7 - 3.8) LAESV Index (A-L): 34.56 ml/m Ao Diam: 2.4 cm (2.0 - 3.7) AV Cusp: 1.7 cm (1.5 - 2.6) AV maxP.20 mmHg AV meanP.87 mmHg AR PHT: 692 ms RAP: 15.00 mmHg RVSP: 34.03 mmHg FINDINGS -------- Sinus rhythm. This was a technically adequate study. The left ventricle is mildly dilated. Left ventricular wall thickness is normal. Overall left elvis tricular systolic function is normal with, an EF between 55 - 60 %. The right ventricle is normal in size. LA is moderately dilated 34-39 ml/m2 The right atrium is normal in size. There is mild aortic valve sclerosis. There is moderate aortic regurgitation. The mitral valve leaflets are mild to moderately thickened. Severe mitral regurgitation is present . The peak and mean MV gradients are 21.35mmHg 7.34mmHg as measured by doppler. Moderate mitral stenosis. Mild tricuspid regurgitation present. The right ventricular systolic pressure, as measured by Doppl er, is 34.03mmHg. Trace/mild (physiologic) pulmonic regurgitation. The aortic root size is normal. The inferior vena cava is dilated with no significant inspiratory collapse which is consistent estima gordon right atrial pressure of >15 mmHg. There is no pericardial effusion. CONCLUSIONS -------- 1. Sinus rhythm. 2. This was a technically adequate study. 3. Left ventricular wall thickness is normal. 4. Overall left ventricular systolic function is normal with, an EF between 55 - 60 %. 5. LA is moderately dilated 34-39 ml/m2 6. There is mild aortic valve sclerosis. 7. There is moderate aortic regurgitation. 8. The mitral valve leaflets are mild to moderately thickened. 9. Severe mitral regurgitation is present. 10. The peak and mean MV gradients are 21.35mmHg 7.34mmHg as measured by doppler. 11. Moderate mitral stenosis. 12. Mild tricuspid regurgitation present. 13. The right ventricular systolic pressure, as measured by Doppler, is 34.03mmHg. 14. Trace/mild (physiologic) pulmonic regurgitation. 15. The aortic root size is normal. 16. The inferior vena cava is dilated with no significant inspiratory collapse which is consistent es timated right atrial pressure of >15 mmHg. 17. There is no pericardial effusion. [employer] SUPERVISOR: Giovanna Leach RDCS
[2017-09-11] MEDS: IPRATROPIUM-ALBUTEROL 3 ML NEB INHALATION SCH ×4 (11:38→23:14)
[2017-09-11 12:39] LABS: Glucose,Whole Blood 171 mg/dL (75-99)
--- NOTE | 2017-09-11 14:20 | PN ---
PROGRESS NOTE DATE OF DICTATION: 09/11/2017. The patient is a 62-year-old male admitted to intensive care unit with acute respiratory failure related to sepsis from gangrene of the big toe. The patient was seen in consultation yesterday at which time he was extubated and was doing well and serum transaminases were gradually improving it was thought he had ischemic hepatitis and prolonged hypertension at the time of admission to the hospital. He was doing well yesterday, through the night he became bradycardic and subsequently went into acute respiratory failure and was intubated and presently he is on the vent, sedated. No fever, chills. PHYSICAL EXAMINATION: On physical examination, he appears his stated age. Remains on the vent, but on no pressors. Blood pressure is 139/86, pulse rate 82, and afebrile. HEENT examination unremarkable. Conjunctivae pink. Sclerae anicteric. Oral cavity no lesions. The chest was clear to auscultation. HEART: Regular rate and rhythm. Abdomen was soft, nontender, nondistended. Liver and spleen not palpable. Bowel sounds are positive. No organomegaly. Extremities no pedal edema. Skin no rashes. Neuro he is sedated. WBC 14.3, hemoglobin 9.9, platelets 289. AST is down to 124 and ALT is down to 553, BUN 33, creatinine 1.78. IMPRESSION: 1. Acute respiratory failure, presently intubated and remains on the vent. 2. Cardiac arrhythmia with atrial fibrillation. Subsequently had bradycardia for which cardiology is following the patient closely. 3. Ischemic hepatitis with elevated LFTs in the range of , which are gradually improving and today serum transaminases are much better than yesterday. Presently, he is not hypertensive and not on any pressors. Amiodarone has been discontinued. RECOMMENDATION: At this time we will continue to monitor LFTs on a close basis since serum transaminases are gradually improving. At this time no need for any further workup. We will consider this only if he has persistent elevation of LFTs. For now, we will follow the labs on a daily basis. Thank you for this consultation. MMODL / IJN: [id number] /
[2017-09-11] MEDS ORDERED: LIDOCAINE 2% INJ 20 MG/ML SQ ONE (15:09)
--- NOTE | 2017-09-11 15:37 | XR ---
EXAMINATION TYPE: XR chest 1V portable DATE OF EXAM: 09/11/2017 CLINICAL HISTORY: PICC line placement. TECHNIQUE: Single AP portable semiupright view of the chest is obtained. COMPARISON: Chest x-ray from earlier today FINDINGS: There is new right-sided PICC line with tip at caval atrial junction. An endotracheal and orogastric tube are stable in appearance. Bilateral diffuse opacities remain present. Cardiac silhoue tte size is stable and upper limits of normal. Osseous structures are intact. IMPRESSION: New right-sided PICC line with tip at caval atrial junction. Redemonstration of diffuse b ilateral edema and/or infiltrates not significantly changed.
[2017-09-11] MEDS: PROPOFOL 1,000 MG in EMPTY BAG 1 BAG IV SCH (15:39)
[2017-09-11] MEDS: METOPROLOL TARTRATE 25 MG TAB PO SCH ×2 (15:40→20:51)
[2017-09-11] MEDS: HEPARIN SOD,PORK IN 0.45% NACL 25,000 UNIT in 0.45% NACL 1 500ML.BAG IV SCH (16:07)
--- NOTE | 2017-09-11 17:45 | US ---
EXAMINATION TYPE: US renal artery duplex complet DATE OF EXAM: 09/11/2017 COMPARISON: NONE CLINICAL HISTORY: flash pulmonary edema. MEASUREMENTS: RENAL SIZE: Rt Kidney: 10.1 x 4.3 x 4.6cm Lt Kidney: 10.6 x 5.1 x 4.8cm RESISTANCE INDEX Right: 1.0 Left: unable to obtain RA/AO RATIO (< 3.5 ) Right: 3.5 Left: 1.8 RA VELOCITY ( < 180 cm/s) Right: 213cm/s Left: 112cm/s ICU patient on vent. Left side mostly obscured by bowel gas, unable to get but minimal measurements o n left, unable to see arcuate arteries on left. Left side believed to be non-diagnostic. Right side j ust on the border of renal artery stenosis. Right renal cyst measuring 1.0 x 0.9 x 1.1cm IMPRESSION: 1. Peak systolic velocity is elevated within the right renal artery and there is an elevated renal ar lily to aortic artery ratio indicating renal artery stenosis. This appears mild as values are only sl ightly elevated. 2. Left kidney is poorly evaluated and nondiagnostic.
[2017-09-11] MEDS: HYDROmorphone 4 MG/ML 1 ML SYRINGE IVP PRN ×2 (17:47→23:02)
[2017-09-11 18:01] LABS: Glucose,Whole Blood 161 mg/dL (75-99)
--- NOTE | 2017-09-11 18:34 | PN ---
PROGRESS NOTE Patient is seen for followup for acute kidney injury. He was admitted with a serum creatinine of about 1.8, which peaked at 2.3, and there was subsequent improvement in his renal function and patient was being diuresed for volume overload. He was extubated on Monday but was reintubated this morning as he developed respiratory distress, hypoxia. Chest x-ray shows diffuse bilateral pulmonary edema. FiO2 is at 70%. The patient did get IV Lasix this morning. No IV fluids are running. Patient has good urine output. EXAMINATION: Blood pressure has been about 99/69, heart rate in the 40s, about 40-50 per minute. He is afebrile. Examination of the heart S1, S2. Examination lungs bilateral breath sounds are heard. Abdomen is soft, nontender. Exam of lower extremities shows no significant edema. PHYSICAL ANTHROPOLOGIST exam cannot be performed. The patient is sedated and intubated. LAB: Show sodium 141, potassium 4.0, chloride 109, BUN 33, serum creatinine 1.78, phosphorus was 6.1, hemoglobin 9.9 g/dL. ASSESSMENT: 1. Acute kidney injury on initial admission, which had been slowly improving. Serum creatinine is again a little bit higher than yesterday. At this time patient is volume overloaded. He did receive Lasix this morning. Continues to have excellent urine output and he has diuresed. We will continue to maintain him on IV Lasix. Follow up on the repeat chest x-ray in the morning. 2. Respiratory failure with recurrent pulmonary edema. Need to rule out underlying renal artery stenosis check renal artery duplex, although this is not the best modality for diagnosing renal artery stenosis. 3. Bradycardia. Patient is on Lopressor, which is currently on hold. 4. Atrial fibrillation on initial admission. 5. Ischemic hepatitis, slowly improving. The amiodarone is now discontinued. 6. Chronic kidney disease with previous creatinine at about 1.4 mg/dL all the way back to 2015, most likely secondary to nephrosclerosis. I do not have a urinalysis on this admission. We will obtain a UA. PLAN: 1. Check UA. 2. Continue with the diuresis. 3. Check renal artery duplex and if there is suspicion for renal artery stenosis, we may need to proceed with a renal angiogram. MMODL / IJN: [id number] /
[2017-09-11 21:13] LABS: Appearance,Urine Clear (Clear); Bilirubin,Urine Negative (Negative); Blood,Urine Negative (Negative); Color,Urine Yellow; Glucose,Urine (UA) Negative (Negative); Ketones,Urine Negative (Negative); Leukocyte Esterase,Urine Negative (Negative); PH, Urine 5.5 (5.0-8.0); Protein,Urine Negative (Negative); Specific Gravity,Urine 1.021 (1.001-1.035); Urobilinogen,Urine <2.0 mg/dL (<2.0)
[2017-09-11 23:31] LABS: Glucose,Whole Blood 159 mg/dL (75-99)
[2017-09-12] MEDS: IPRATROPIUM-ALBUTEROL 3 ML NEB INHALATION SCH ×6 (02:59→23:39)
[2017-09-12] MEDS: PROPOFOL 1,000 MG in EMPTY BAG 1 BAG IV SCH ×5 (04:06→23:48)
[2017-09-12] MEDS: HYDROmorphone 4 MG/ML 1 ML SYRINGE IVP PRN ×2 (04:07→14:06)
[2017-09-12 04:23] LABS: Basophils % (A) 0 %; Eosinophils # (A) 0.2 k/uL (0-0.7); Eosinophils % (A) 2 %; HCT 30.8 % (39.0-53.0); HGB 9.1 gm/dL (13.0-17.5); Hypochromasia Moderate; Lymphocytes # (A) 0.7 k/uL (1.0-4.8); Lymphocytes % (A) 7 %; MCH 27.7 pg (25.0-35.0); MCHC 29.7 g/dL (31.0-37.0); MCV 93.3 fL (80.0-100.0); Mean Platelet Volume 8.8; Monocytes # (A) 0.3 k/uL (0-1.0); Monocytes % (A) 3 %; Neutrophils # (A) 8.4 k/uL (1.3-7.7); Neutrophils % (A) 86 %; Platelet Count 285 k/uL (150-450); RDW 15.7 % (11.5-15.5); WBC 9.7 k/uL (3.8-10.6)
--- NOTE | 2017-09-12 04:50 | PN ---
PROGRESS NOTE DATE OF SERVICE: 09/11/17 REASON FOR FOLLOWUP VISIT: Left 1st and 2nd toe pain and cellulitis. INTERVAL HISTORY: The patient did become bradycardic last night and went into flash pulmonary edema with significant hypoxemia requiring intubation on the vent. Hemodynamically stable. Not on any pressor support. No significant secretion. Respiratory secretion per the RN. Left foot 2nd toe remains to be discolored and cold. EXAMINATION: Blood pressure is 103/50 with a pulse of 49, temperature of 98. He is 100% on 80% FiO2. General description is a middle-aged male lying in bed in no distress. Respiratory system unlabored breathing with decreased breath sounds in the bases. No wheeze. Heart S1, S2. Regular rate and rhythm. Abdomen soft, no tenderness. The left leg second toe remains to be slightly discolored. No drainage though. LABS: Hemoglobin 9.8, white count 14.3 with a BUN of 33, creatinine 1.78. DIAGNOSTIC IMPRESSION AND PLAN: Patient with 1st and 2nd wound question of gangrene with underlying now with recurrent vent dependent respiratory failure likely secondary to the cardiac etiology. The patient did have significant with it. Sputum cultures were negative. Repeat has been ordered. Keep the patient on Zosyn at this point. Monitor clinical course closely. Continue supportive care. MMODL / IJN: [id number] /
[2017-09-12 05:08] LABS: Albumin 2.7 g/dL (3.5-5.0); Calcium 7.6 mg/dL (8.4-10.2); Phosphorus 4.1 mg/dL (2.5-4.5); Potassium 4.3 mmol/L (3.5-5.1); Total Bilirubin 0.4 mg/dL (0.2-1.3)
[2017-09-12 05:21] LABS: ABG Base Excess -3.1 mmol/L; ABG HCO3 23 mmol/L (21-25); ABG Oxygen Saturation 99.3 % (94-97); ABG PCO2 41 mmHg (35-45); ABG PH 7.35 (7.35-7.45); ABG PO2 177 mmHg (83-108); ABG TCO2 24 mmol/L (19-24)
[2017-09-12] MEDS: DOPamine DRIP 800 MG in DEXTROSE/WATER 1 500ML.BAG IV SCH (05:49)
[2017-09-12 05:55] LABS: Glucose,Whole Blood 153 mg/dL (75-99)
[2017-09-12] MEDS: INSULIN ASPART 100 UNIT/ML 1 ML 10 ML VIAL SQ SCH ×4 (06:12→23:49)
[2017-09-12] MEDS: LEVOTHYROXINE 25 MCG TAB PO SCH (06:14)
--- NOTE | 2017-09-12 07:36 | PN ---
PROGRESS NOTE DATE OF SERVICE: 09/11/17 PRESENTING COMPLAINT: Intubated. INTERVAL HISTORY: The patient initially admitted with infected left big toe from recent trauma, failed outpatient treatment, then the patient went into respiratory failure, intubated, successfully extubated. Early hours this morning patient is yet again intubated. The patient has also had atrial fibrillation with rapid ventricular rate for which patient was on IV amiodarone. The patient is now in sinus rhythm. The patient also been on IV heparin. Patient's current vent settings include FiO2 of 70%, PEEP of 13. Drips include IV heparin. Patient also on tube feeding. REVIEW OF SYSTEMS: Patient is intubated. CURRENT MEDICATIONS: Include DuoNeb, Prozac, IV heparin, Synthroid, Lopressor, nicotine patch, IV Zosyn and IV propofol. PHYSICAL EXAMINATION: Temperature 97.4, pulse 43, respiratory 22, blood pressure 92/58. Pulse ox noted. GENERAL APPEARANCE: Lying in bed, intubated. Eyes pupils are equal. Conjunctivae normal. HEENT: External appearance of nose and ears normal. Oral cavity: Endotracheal tube in place. Neck JVD unable to assess. Mass not palpable. RESPIRATORY: Effort increased. LUNGS: Diminished breath sounds. No crackles. Cardiovascular: 1st and second sounds normal. No edema. ABDOMEN: Soft, nontender. Liver and spleen not palpable. Psychiatry: Unable to assess. Dermatological: Patient has got a wound to the left big toe. INVESTIGATIONS: White count 14.3, hemoglobin 9.9, blood gas showed pH of 7.14, pCO2 55, potassium 4, BUN 33, creatinine 1.78. ASSESSMENT: 1. Acute big toe cellulitis with wound secondary to trauma, having failed outpatient treatment. Possible source of sepsis. 2. Acute hypoxic respiratory failure secondary to sepsis requiring ventilator assistance. Patient was reintubated this morning for the 2nd time that is on 09/11/17. 3. Bilateral pneumonia suspect gram-negative organism, possible causing sepsis. 4. Acute metabolic acidosis. 5. Acute kidney injury secondary to acute tubular necrosis secondary to sepsis with some improvement. 6. Acute shock liver with biochemical improvement from hypertension. 7. Persistent atrial fibrillation. Currently gone into sinus rhythm. The patient has been on Eliquis. 8. Chronic kidney stage 3 from nephrosclerosis. Baseline creatinine of 1.3. 9. Acute chronic obstructive pulmonary disease exacerbation in a current smoker. 10.Chronic nicotine dependence in a cigarette smoker. 11.Coronary artery disease with prior history of stent. 12.Hypothyroidism. 13.Essential hypertension history. 14.Hyperlipidemia. 15.Peripheral artery disease. 16.Depression, anxiety not otherwise specified. 17.IV heparin monitoring. PLAN: Overall prognosis is guarded. No family at the bedside. Continue with pressor support. IV heparin and antibiotics. MMODL / IJN: [id number] /
--- NOTE | 2017-09-12 07:53 | XR ---
EXAMINATION TYPE: XR chest 1V portable DATE OF EXAM: 09/12/2017 COMPARISON: NONE HISTORY: SOB, Follow Up FINDINGS: Indwelling tubes and catheters are unchanged. Improved Perihilar and basilar infiltrates. Stable appearance of the cardio-mediastinal structures at this time. IMPRESSION: 1. Improved Perihilar and basilar infiltrates.. Clinical correlation and follow up until resolution is recommended.
[2017-09-12] MEDS: CHLORHEXIDINE GLUCONATE 15 ML CUP MUCOUS MEM SCH ×2 (08:19→21:09)
[2017-09-12] MEDS: PIPERACILLIN-TAZOBACTAM 3.375 GM in DEXTROSE/WATER 1 50ML.BAG IVPB SCH ×3 (08:19→23:48)
[2017-09-12] MEDS: NICOTINE 21MG/24HR PATCH TRANSDERM SCH (08:19)
[2017-09-12] MEDS: METOPROLOL TARTRATE 25 MG TAB PO SCH (08:20)
[2017-09-12] MEDS: PANTOPRAZOLE 40 MG TABLET PO SCH (08:20)
[2017-09-12] MEDS: FLUoxetine HCL 20 MG CAP PO SCH (08:20)
--- NOTE | 2017-09-12 09:50 | P.PN ---
Subjective Progress Note Date: 09/12/17 This is a 62-year-old gentleman who was admitted with gangrene and sepsis. The gangrene involves the left foot. Patient went into pulmonary edema yesterday requiring intubation. Patient has diuresed well. His chest x-ray shows improvement. Patient remains bradycardic. He is off amiodarone and also beta skylar. He was on dopamine last night which is discontinued this morning. The etiology of his pulmonary edema is not entirely clear. He does have significant mitral regurgitation. However, patient has gangrenous left foot with some infection. Unless something definitive done to the leg, no other surgical procedure could be undertaken. We will get Dr. Addison procedure the patient. We will consider CLARE examination in the near future Objective - Vital Signs Vital signs: Vital Signs Temp 97.6 F 09/12/17 08:00 Pulse 49 L 09/12/17 09:00 Resp 25 H 09/12/17 09:00 BP 98/60 09/12/17 09:00 Pulse Ox 100 09/12/17 09:00 Intake & Output 09/11/17 09/12/17 09/12/17 18:59 06:59 18:59 Intake Total 1151.039 961.083 304.172 Output Total 1005 610 130 Balance 146.039 351.083 174.172 Weight 82.8 kg 86.4 kg Intake: IV 340.0 260 52.5 Piperacillin-Tazobactam 3 100.0 12.5 .375 gm In Dextrose/Water 1 50ml.bag @ 12.5 mls/hr IVPB Q8HR AJ Rx#: [id number] Sodium Chloride 0.9% 1, 240 260 40 000 ml @ 20 mls/hr IV . Q24H AJ Rx#:[id number] Intake, IV Titration 511.039 71.083 115.672 Amount DOPamine DRIP 800 mg In 15.672 Dextrose/Water 1 500ml. bag @ 3 MCG/KG/MIN 9.31 mls/hr IV .Q24H AJ Rx#: [id number] Heparin Sod,Pork in 0.45% 432.322 NaCl 25,000 unit In 0.45 % NaCl 1 500ml.bag @ 12 UNITS/KG/HR 18.74 mls/hr IV .Q24H AJ Rx#: [id number] Propofol 1,000 mg In 78.717 71.083 100.0 Empty Bag 1 bag @ Titrate IV .Q0M [facility] Rx#: [id number] Tube Feeding 270 630 106 Other 30 30 Output: Urine 1005 610 130 Other: Voiding Method Indwelling Catheter Indwelling Catheter ABP, PAP, CO, CI - Last Documented Arterial Blood Pressure 123/53 - Exam GENERAL EXAM: Patient is intubated and sedated HEENT: Normocephalic. N CHEST: No chest wall deformity. LUNGS: Diminished breath sounds and diffuse rhonchi] HEART: [S1 and S2 normal ABDOMEN: No hepatosplenomegaly, normal bowel sounds, no guarding or rigidity. SKIN: No rashes CENTRAL NERVOUS SYSTEM: No focal deficits. EXTREMITIES: Left leg is wrapped - Labs CBC & Chem 7: 09/12/17 04:15 09/12/17 04:15 Labs: Abnormal Lab Results - Last 24 Hours (Table) 09/11/17 09/11/17 09/11/17 Range/Units 12:38 18:00 23:30 RBC (4.30-5.90) m/uL Hgb (13.0-17.5) gm/dL Hct (39.0-53.0) % MCHC (31.0-37.0) g/dL RDW (11.5-15.5) % Neutrophils # (1.3-7.7) k/uL Lymphocytes # (1.0-4.8) k/uL APTT (22.0-30.0) sec ABG pO2 (83-108) mmHg ABG O2 Saturation (94-97) % Chloride (98-107) mmol/L BUN (9-20) mg/dL Creatinine (0.66-1.25) mg/dL Glucose (74-99) mg/dL POC Glucose (mg/dL) 171 H 161 H 159 H (75-99) mg/dL Calcium (8.4-10.2) mg/dL ALT (21-72) U/L Total Protein (6.3-8.2) g/dL Albumin (3.5-5.0) g/dL 09/12/17 09/12/17 09/12/17 Range/Units 04:15 04:15 04:15 RBC 3.30 L (4.30-5.90) m/uL Hgb 9.1 L (13.0-17.5) gm/dL Hct 30.8 L (39.0-53.0) % MCHC 29.7 L (31.0-37.0) g/dL RDW 15.7 H (11.5-15.5) % Neutrophils # 8.4 H (1.3-7.7) k/uL Lymphocytes # 0.7 L (1.0-4.8) k/uL APTT 73.0 H (22.0-30.0) sec ABG pO2 (83-108) mmHg ABG O2 Saturation (94-97) % Chloride 110 H (98-107) mmol/L BUN 38 H (9-20) mg/dL Creatinine 1.58 H (0.66-1.25) mg/dL Glucose 154 H (74-99) mg/dL POC Glucose (mg/dL) (75-99) mg/dL Calcium 7.6 L (8.4-10.2) mg/dL ALT 383 H (21-72) U/L Total Protein 6.0 L (6.3-8.2) g/dL Albumin 2.7 L (3.5-5.0) g/dL 18 09/12/17 Range/Units 05:16 05:53 RBC (4.30-5.90) m/uL Hgb (13.0-17.5) gm/dL Hct (39.0-53.0) % MCHC (31.0-37.0) g/dL RDW (11.5-15.5) % Neutrophils # (1.3-7.7) k/uL Lymphocytes # (1.0-4.8) k/uL APTT (22.0-30.0) sec ABG pO2 177 H (83-108) mmHg ABG O2 Saturation 99.3 H (94-97) % Chloride (98-107) mmol/L BUN (9-20) mg/dL Creatinine (0.66-1.25) mg/dL Glucose (74-99) mg/dL POC Glucose (mg/dL) 153 H (75-99) mg/dL Calcium (8.4-10.2) mg/dL ALT (21-72) U/L Total Protein (6.3-8.2) g/dL Albumin (3.5-5.0) g/dL Microbiology - Last 24 Hours (Table) 09/11/17 16:15 Catheter Tip Culture - Preliminary Catheter Tip 09/11/17 11:32 Gram Stain - Preliminary Sputum Sputum Culture - Preliminary 09/11/17 10:18 Urine Culture - Preliminary Urine,Catheterized 09/05/17 10:10 Blood Culture - Final Blood No Growth after 144 hours Assessment and Plan (1) CAD (coronary artery disease) Current Visit: Yes Status: Acute Code(s): I25.10 - ATHSCL HEART DISEASE OF [place] CORONARY ARTERY W/O ANG PCTRS SNOMED Code(s): 88149220 (2) Peripheral vascular disease Current Visit: Yes Status: Acute Code(s): I73.9 - PERIPHERAL VASCULAR DISEASE, UNSPECIFIED SNOMED Code(s): 127602775 (3) New onset a-fib Current Visit: No Status: Acute Code(s): I48.91 - UNSPECIFIED ATRIAL FIBRILLATION SNOMED Code(s): 10319527 (4) Acute pulmonary edema Current Visit: Yes Status: Acute Code(s): J81.0 - ACUTE PULMONARY EDEMA SNOMED Code(s): 95462738 (5) Pneumonia Current Visit: Yes Status: Acute Code(s): J18.9 - PNEUMONIA, UNSPECIFIED ORGANISM SNOMED Code(s): 393148799 Plan: Continue to hold amiodarone and beta skylar. Will have vascular follow-up regarding management of the gangrenous foot. May consider doing a CLARE examination in the near future to assess mitral regurgitation
[2017-09-12] MEDS: SENNOSIDES 8.6 MG TAB PO SCH (10:00)
--- NOTE | 2017-09-12 10:06 | P.PN ---
Subjective Progress Note Date: 09/12/17 Principal diagnosis: Respiratory failure Progress note dated 09/11/2017 This is a 62-year-old black male who was admitted on September 06. He apparently was initially admitted with a diagnosis of sepsis with a gangrenous toe. He started in the ER went to the general medical floor and 18 was called because of respiratory failure and acidosis. He that reason he was intubated on September 06 and transferred to the ICU. He was extubated initially on September 08 and then reintubated again on September 11. This was today at 4:00 in the morning. The patient's x-ray shows diffuse bilateral infiltrates worse on the right than on the left side. His current ventilator settings include the assist control mode, rate of 12, an FiO2 of 70%, tidal Byam of 500, PEEP of 10. Arterial blood gases show a PaO2 of 88 a PaCO2 of 37 and a pH of 7.36. His current IVs include a saline IV at 20 mL an hour, heparin via weightbase protocol for atrial fibrillation propofol at 35 mics per kilogram per minute and Cordarone at 0.5 mg/m. The patient's x-rays labs medications are all reviewed. Microbiology is all negative. I asked the nurse to resume his tube feeds. Progress note dated September 12 2017 62-year-old white male who was admitted on September 06. He apparently was initially admitted with a diagnosis of sepsis with a gr gangrenous toe. He started in the ER want to the general medical floor and a rapid response was called because of respiratory failure and severe acidosis. He was intubated on September 06 and transferred to the intensive care unit. He was initially extubated on September 08 and then reintubated again on September 11. That was at 4 :00 in the morning. My partner was called. His chest x-ray yesterday showed diffuse bilateral pulmonary infiltrates worse on the right than on the left. We made some changes yesterday. The patient's chest x-ray today is much improved suggesting that he has mostly pulmonary edema/heart failure. In fact, the echocardiogram did reveal evidence of severe mitral regurgitation. The patient clinically is much better today. We are going to have the vascular service surgeon see him about the great toe. Likely, thoracic surgery would not want to do anything if there was active infection. The patient's FiO2 was dropped from 50-40%. In addition, we'll be able to make some significant PEEP changes today.His current vent settings are the assist control mode rate of 22 tidal volume 400 FiO2 40% and PEEP of 13. The PEEP can probably be dropped down from 13-10 later today. Arterial blood gases show a PaO2 of 177 a PaCO2 of 41 and a pH of 7.35. His is consistent with a very mild metabolic acidosis. The patient's on heparin via weightbase protocol, propofol at 45 mics per kilogram per minute dopamine which is currently off started earlier this morning for bradycardia a saline IV at 20 mL an hour and vital high protein at 56 with a goal of 56 mL per hour. Objective - Vital Signs Vital signs: Vital Signs Temp 97.6 F 09/12/17 08:00 Pulse 49 L 09/12/17 09:00 Resp 25 H 09/12/17 09:00 BP 98/60 09/12/17 09:00 Pulse Ox 100 09/12/17 09:00 Intake & Output 09/11/17 09/12/17 09/12/17 18:59 06:59 18:59 Intake Total 1151.039 961.083 304.172 Output Total 1005 610 130 Balance 146.039 351.083 174.172 Weight 82.8 kg 86.4 kg Intake: IV 340.0 260 52.5 Piperacillin-Tazobactam 3 100.0 12.5 .375 gm In Dextrose/Water 1 50ml.bag @ 12.5 mls/hr IVPB Q8HR [facility] Rx#: [id number] Sodium Chloride 0.9% 1, 240 260 40 000 ml @ 20 mls/hr IV . Q24H [facility] Rx#:[id number] Intake, IV Titration 511.039 71.083 115.672 Amount DOPamine DRIP 800 mg In 15.672 Dextrose/Water 1 500ml. bag @ 3 MCG/KG/MIN 9.31 mls/hr IV .Q24H [facility] Rx#: [id number] Heparin Sod,Pork in 0.45% 432.322 NaCl 25,000 unit In 0.45 % NaCl 1 500ml.bag @ 12 UNITS/KG/HR 18.74 mls/hr IV .Q24H [facility] Rx#: [id number] Propofol 1,000 mg In 78.717 71.083 100.0 Empty Bag 1 bag @ Titrate IV .Q0M [facility] Rx#: [id number] Tube Feeding 270 630 106 Other 30 30 Output: Urine 1005 610 130 Other: Voiding Method Indwelling Catheter Indwelling Catheter ABP, PAP, CO, CI - Last Documented Arterial Blood Pressure 123/53 - Exam No acute distress, currently intubated with an orally placed endotracheal tube and NG tube HEENT examination is grossly unremarkable. Mucous membranes are moist. No oral lesions. Neck supple. Full range of motion. No adenopathy thyromegaly or neck vein distention. Cardiovascular examination reveals irregular rhythm rate. S1-S2 normal. No S3 or S4. No discernible murmur noted. Lungs reveal coarse bilateral breath sounds. Breath sounds are diminished. No crackles. Breath sounds are diminished more on the right side than the left. Abdomen soft bowel sounds are heard. No masses or tenderness. Extremities are intact. No cyanosis clubbing or edema. Skin is without rash or lesion. Neurologic examination could not be performed. - Labs CBC & Chem 7: 09/12/17 04:15 09/12/17 04:15 Labs: Abnormal Lab Results - Last 24 Hours (Table) 09/11/17 09/11/17 09/11/17 Range/Units 12:38 18:00 23:30 RBC (4.30-5.90) m/uL Hgb (13.0-17.5) gm/dL Hct (39.0-53.0) % MCHC (31.0-37.0) g/dL RDW (11.5-15.5) % Neutrophils # (1.3-7.7) k/uL Lymphocytes # (1.0-4.8) k/uL APTT (22.0-30.0) sec ABG pO2 (83-108) mmHg ABG O2 Saturation (94-97) % Chloride (98-107) mmol/L BUN (9-20) mg/dL Creatinine (0.66-1.25) mg/dL Glucose (74-99) mg/dL POC Glucose (mg/dL) 171 H 161 H 159 H (75-99) mg/dL Calcium (8.4-10.2) mg/dL ALT (21-72) U/L Total Protein (6.3-8.2) g/dL Albumin (3.5-5.0) g/dL 0209/12/17 09/12/17 Range/Units 04:15 04:15 04:15 RBC 3.30 L (4.30-5.90) m/uL Hgb 9.1 L (13.0-17.5) gm/dL Hct 30.8 L (39.0-53.0) % MCHC 29.7 L (31.0-37.0) g/dL RDW 15.7 H (11.5-15.5) % Neutrophils # 8.4 H (1.3-7.7) k/uL Lymphocytes # 0.7 L (1.0-4.8) k/uL APTT 73.0 H (22.0-30.0) sec ABG pO2 (83-108) mmHg ABG O2 Saturation (94-97) % Chloride 110 H (98-107) mmol/L BUN 38 H (9-20) mg/dL Creatinine 1.58 H (0.66-1.25) mg/dL Glucose 154 H (74-99) mg/dL POC Glucose (mg/dL) (75-99) mg/dL Calcium 7.6 L (8.4-10.2) mg/dL ALT 383 H (21-72) U/L Total Protein 6.0 L (6.3-8.2) g/dL Albumin 2.7 L (3.5-5.0) g/dL 09/12/17 09/12/17 Range/Units 05:16 05:53 RBC (4.30-5.90) m/uL Hgb (13.0-17.5) gm/dL Hct (39.0-53.0) % MCHC (31.0-37.0) g/dL RDW (11.5-15.5) % Neutrophils # (1.3-7.7) k/uL Lymphocytes # (1.0-4.8) k/uL APTT (22.0-30.0) sec ABG pO2 177 H (83-108) mmHg ABG O2 Saturation 99.3 H (94-97) % Chloride (98-107) mmol/L BUN (9-20) mg/dL Creatinine (0.66-1.25) mg/dL Glucose (74-99) mg/dL POC Glucose (mg/dL) 153 H (75-99) mg/dL Calcium (8.4-10.2) mg/dL ALT (21-72) U/L Total Protein (6.3-8.2) g/dL Albumin (3.5-5.0) g/dL Microbiology - Last 24 Hours (Table) 09/11/17 16:15 Catheter Tip Culture - Preliminary Catheter Tip 09/11/17 11:32 Gram Stain - Preliminary Sputum Sputum Culture - Preliminary 09/11/17 10:18 Urine Culture - Preliminary Urine,Catheterized 09/05/17 10:10 Blood Culture - Final Blood No Growth after 144 hours Assessment and Plan Assessment: Assessment Acute hypoxemic respiratory failure secondary to sepsis/septic shock with a gangrenous toe and underlying cellulitis. Possible bilateral nosocomial pneumonia Atrial fibrillation/RVR Congestive heart failure, , likely secondary to severe mitral regurgitation Intermittent sinus bradycardia History of CAD with previous stent placement History of COPD History of essential hypertension History of depression Peripheral vascular occlusive disease Hypothyroidism Hypertensive nephrosclerosis with chronic kidney disease, stage III Acute cellulitis and gangrene of the left big toe, status post debridement Plan: Plan dated 09/11/2017 The patient developed acute respiratory failure early this morning. My partner was called. He was reintubated. I'll make a slight change in the vent settings. We'll go with a low titer volume strategy. We'll drop a tidal volume from 500-400. We'll bump the rate from 16-24. PEEP will be increased from 10-13. I will review the labs x-rays a medications. We'll resume tube feeds. Prognosis is poor. Additional recommendations and suggestions are forthcoming. Plan dated 06/12/2018 Vascular surgery will come in to see the patient today.Labs x-rays a medications are all reviewed. The dopamine is now off. It was started for bradycardia. The patient's FiO2 was dropped from 50-40%. Likely will be able to make some PEEP changes as well. Chest x-ray is dramatically improved. We' ll continue to follow closely. Prognosis is guarded. The mitral valve issue is certainly likely the cause of the patient's flash pulmonary edema. He may even have mitral valve endocarditis. Time with Patient: Greater than 30
[2017-09-12 11:55] LABS: Glucose,Whole Blood 201 mg/dL (75-99)
[2017-09-12] MEDS ORDERED: FUROSEMIDE 10 MG/ML 4 ML VIAL IV STA (12:08)
[2017-09-12] MEDS: HEPARIN SOD,PORK IN 0.45% NACL 25,000 UNIT in 0.45% NACL 1 500ML.BAG IV SCH (12:34)
--- NOTE | 2017-09-12 14:14 | IR ---
PICC LINE PLACEMENT: HISTORY: Infection requiring long-term antibiotic therapy PROCEDURE: Ultrasound guidance of PICC line placement. [facility]: Dr. Quezada. COMPLICATIONS: None ANESTHESIA: 1. 1% Lidocaine locally. FINDINGS/TECHNIQUE: The procedure was explained to the patient. The risks, complications, benefits and alternatives were discussed and any questions were answered. Informed consent was obtained. The patient was placed supine on the fluoroscopic table and prepped and draped in the usual sterile fas ion. Utilizing a 21 gauge needle and sonographic guidance, access in the right basilic vein was ach ieved and there is placement of a 0.018 guidewire. The vein is patent. A 5-F. sheath was placed ove r the guidewire. The guidewire and dilator were removed and a 5-F. Double lumen PICC line was placed through the sheath with the chest x-ray confirming the tip at the level of the SVC. The sheath was removed, the catheter was flushed and sutured into position. The patient was stable throughout the p rocedure and remained stable upon discharge from the Department of Radiology. The vein puncture was patent under ultrasound. A morales scale image was obtained to document patency of the vein punctured. All elements of the maximal barrier technique were utilized. IMPRESSION: 1. Successful PICC line placement under ultrasound performed bedside within the ICU.
[2017-09-12] MEDS: METOPROLOL TARTRATE 5 MG/5 ML VIAL IVP SCH ×2 (16:45→23:51)
[2017-09-12] MEDS: SODIUM CHLORIDE 0.9% 1,000 ML IV SCH (16:53)
[2017-09-12 18:38] LABS: Glucose,Whole Blood 121 mg/dL (75-99)
[2017-09-12] MEDS ORDERED: ARTIFICIAL TEARS OINTMENT 3.5 GM TUBE BOTH EYES PRN (18:39)
[2017-09-12] MEDS: HYDROmorphone 2 MG/ML 1 ML SYRINGE IVP PRN (18:57)
[2017-09-12] MEDS: DILTIAZEM 125 MG in SODIUM CHLORIDE 0.9% 100 ML IV SCH (19:28)
[2017-09-12] MEDS ORDERED: DEXTROSE 5% IN WATER 100 ML with AMIODARONE 150 MG IV ONE (20:49)
--- NOTE | 2017-09-12 21:08 | PN ---
PROGRESS NOTE DATE OF SERVICE: 09/12/2017 REASON FOR FOLLOWUP: 1. Left foot wound cellulitis. 2. Possible aspiration pneumonia. INTERVAL HISTORY: The patient is afebrile. The patient remains to be intubated on the vent, hemodynamically stable. Did have some problem with hypotension last night and was on low-dose dopamine. However, it has been discontinued this morning. No significant diarrhea has been noted. Has been tolerating his tube feeds. Was noted to have increased respiratory secretions this morning, but subsequently has improved per the RN. EXAMINATION: Blood pressure is 101/75 with a pulse of 133, temperature of 98. He is 100% on 40% FiO2. General description is a middle-aged male lying in bed in no distress. HEENT is slight pallor. No scleral icterus. The patient is orally intubated. LUNGS: Unlabored breathing. Decreased breath sounds at the bases. No wheeze or crackle. HEART: S1, S2. Regular rate and rhythm. ABDOMEN: Soft, no tenderness. Left big and 2nd toe slightly discolored. No drainage was noted, though. LABS: Hemoglobin is 9.1, white count 9.7 with a BUN of 38, creatinine 1.58. Blood cultures have been negative. Catheter tip culture so far negative. DIAGNOSTIC IMPRESSION AND PLAN: Patient with left big and 2nd toe wound with cellulitis. The patient did have a recurrent ventilator-dependent respiratory failure, likely secondary to possible cardiac etiology. Clinically doubt sepsis, as the patient has been not running any fever. No significant elevated white count. All his cultures have been negative. He is currently covered with Zosyn, should cover cellulitis as well as aspiration pneumonitis and may benefit from a CLARE. Discussed further with Cardiology. Care was also discussed with Dr. Addison, who will be evaluating the patient. MMODL / IJN: [id number] /
[2017-09-12] MEDS: AMIODARONE 450 MG in DEXTROSE 5% IN WATER 250 ML IV SCH ×2 (21:09)
--- NOTE | 2017-09-12 22:33 | PN ---
PROGRESS NOTE Patient is seen for followup for acute kidney injury. He currently remains on the vent. FiO2 is down to 40%. Patient has had good urine output. He received one dose of IV Lasix yesterday and has had good urine output. PHYSICAL EXAMINATION: Blood pressure is 112/52, heart rate of about 50 per minute. Patient is afebrile. EXAMINATION OF THE HEART: S1, S2. Examination of lower extremities shows no significant edema. ABDOMEN: Soft, non-tender. COIL WINDER REPAIR exam cannot be performed. Left first and second toes show evidence of dry gangrene. Rest of the foot is currently wrapped. LABS: Sodium 142, potassium 4.8, chloride 110, CO2 23, BUN 38, serum creatinine 1.58, hemoglobin 9.1 g/dL. ASSESSMENT: 1. Acute kidney injury on initial admission which has been improving. Serum creatinine is better from yesterday. His creatinine had peaked at 2.3. 2. Congestive heart failure/pulmonary edema, improved. Renal artery duplex was done for consideration of possible renal artery stenosis. There was evidence of some right-sided renal artery stenosis, although this was not diagnostic, and patient will need a CT angiogram or a renal angiogram for definitive diagnosis of renal artery stenosis. 3. Bradycardia, currently off of Lopressor. 4. Atrial fibrillation with rapid ventricular response initially. It looks like the heart rate has gone up again. 5. Ischemic hepatitis, improving. 6. Chronic kidney disease, stage III, with previous creatinine of 1.4 in 2014, most likely secondary to nephrosclerosis. UA is completely benign with no evidence of proteinuria or hematuria. 7. Left foot wound and evidence of dry gangrene, mainly in the first and second toes, maintained on antibiotics. PLAN: Repeat another dose of IV Lasix. Repeat labs in a.m. Consider renal angiogram down the road for workup of clinically significant renal artery stenosis contributing to flash pulmonary edema. MMODL / IJN: [id number] /
[2017-09-12 23:49] LABS: Glucose,Whole Blood 143 mg/dL (75-99)
--- NOTE | 2017-09-13 00:06 | PN ---
PROGRESS NOTE DATE OF SERVICE: 09/12/17 PRESENTING COMPLAINT: Intubated. INTERVAL HISTORY: This is a patient initially admitted with infected left from recent trauma, having failed outpatient treatment. In the hospital, underwent into arrhythmia into respiratory failure, intubated, and the patient had to be re-intubated. The patient remains on ventilator with FiO2 40 and a PEEP of 10. The patient remains in atrial fibrillation with rapid ventricular rate up to 170s earlier today. The patient is currently both on IV amiodarone and IV Cardizem. Tube feedings running at 56 mL an hour. The patient is also on propofol 45 mics and also on IV heparin. REVIEW OF SYSTEMS: Patient is intubated. CURRENT MEDICATIONS: Include IV amiodarone, IV Cardizem, tube feeding, IV propofol and IV heparin. PHYSICAL EXAMINATION: Afebrile. Pulse 140, respiration 22, blood pressure 92/50. Pulse ox 100% on ventilator. General appearance: Lying in bed, intubated. Eyes pupils equal. Conjunctivae normal. HEENT external appearance of nose and ears normal. Oral cavity: Endotracheal tube in place. Neck JVD unable to assess. Mass not palpable. Respiratory effort increased. LUNGS: Diminished breath sounds. Cardiovascular: HEART: Sounds irregular. No edema. ABDOMEN: Soft, nontender. Liver and spleen not palpable. No mass palpable. Neurological pupils equal. Reactive. Dermatological: Wound on the left big toe. INVESTIGATIONS: White count 9.7, hemoglobin 9.1, potassium 4.3, BUN 38, creatinine 1.58. ASSESSMENT: 1. Acute big toe cellulitis and wound secondary to trauma, having failed outpatient treatment. Possible source of sepsis. 2. Acute hypoxic respiratory failure secondary to sepsis requiring ventilator assistance. The patient was re-intubated. 3. Bilateral pneumonia suspect gram-negative organism, possibly causing sepsis. 4. Acute pulmonary edema, could be arrhythmia related. 5. Acute metabolic acidosis. 6. Acute kidney injury secondary to acute tubular necrosis secondary to sepsis with biochemical improvement. 7. Acute shock liver with biochemical improvement from hypotension. 8. Persistent atrial fibrillation uncontrolled. The patient had been on Eliquis. Currently on IV amiodarone and Cordarone. 9. Chronic kidney stage 3 from nephrosclerosis. Baseline creatinine of 1.3. 10.Acute chronic obstructive pulmonary disease exacerbation in a current smoker. 11.Chronic nicotine dependence patient is a cigarette smoker. 12.Coronary artery disease prior history of stent. 13.Hypothyroidism. 14.Essential hypertension history of. 15.Hyperlipidemia. 16.Peripheral artery disease. 17.Depression/anxiety not otherwise specified. PLAN: Continue current medication and treatment plan to include antibiotics, tube feeding, IV amiodarone, IV Cardizem, IV propofol, IV heparin. Prognosis guarded. MMODL / ABRAHAMN: [id number] /
[2017-09-13] MEDS: IPRATROPIUM-ALBUTEROL 3 ML NEB INHALATION SCH ×6 (03:17→23:24)
[2017-09-13] MEDS: DILTIAZEM 125 MG in SODIUM CHLORIDE 0.9% 100 ML IV SCH ×2 (04:54→18:50)
[2017-09-13] MEDS: AMIODARONE 450 MG in DEXTROSE 5% IN WATER 250 ML IV SCH ×6 (04:55→19:26)
[2017-09-13] MEDS: PROPOFOL 1,000 MG in EMPTY BAG 1 BAG IV SCH ×4 (04:56→18:06)
[2017-09-13 05:09] LABS: Albumin 2.8 g/dL (3.5-5.0); Calcium 7.7 mg/dL (8.4-10.2); Phosphorus 2.7 mg/dL (2.5-4.5); Total Bilirubin 0.2 mg/dL (0.2-1.3); Total Protein 5.9 g/dL (6.3-8.2)
[2017-09-13 05:14] LABS: Anisocytosis Slight; Basophils % (A) 0 %; Eosinophils # (A) 0.1 k/uL (0-0.7); Eosinophils % (A) 1 %; HCT 32.8 % (39.0-53.0); HGB 9.7 gm/dL (13.0-17.5); Hypochromasia Moderate; Lymphocytes # (A) 1.9 k/uL (1.0-4.8); Lymphocytes % (A) 20 %; MCH 27.6 pg (25.0-35.0); MCHC 29.5 g/dL (31.0-37.0); MCV 93.3 fL (80.0-100.0); Monocytes # (A) 0.4 k/uL (0-1.0); Monocytes % (A) 4 %; Neutrophils % (A) 73 %; Platelet Count 284 k/uL (150-450); RBC 3.51 m/uL (4.30-5.90); RDW 16.2 % (11.5-15.5); WBC 9.6 k/uL (3.8-10.6)
[2017-09-13 05:51] LABS: ABG Base Excess 0.5 mmol/L; ABG HCO3 25 mmol/L (21-25); ABG Oxygen Saturation 96.8 % (94-97); ABG PCO2 38 mmHg (35-45); ABG PH 7.42 (7.35-7.45); ABG PO2 94 mmHg (83-108); ABG TCO2 26 mmol/L (19-24)
[2017-09-13 06:00] LABS: Glucose,Whole Blood 126 mg/dL (75-99)
[2017-09-13] MEDS: DOPamine DRIP 800 MG in DEXTROSE/WATER 1 500ML.BAG IV SCH (06:14)
[2017-09-13] MEDS: INSULIN ASPART 100 UNIT/ML 1 ML 10 ML VIAL SQ SCH ×3 (06:14→17:04)
[2017-09-13] MEDS: LEVOTHYROXINE 25 MCG TAB PO SCH (06:28)
[2017-09-13] MEDS: HEPARIN SOD,PORK IN 0.45% NACL 25,000 UNIT in 0.45% NACL 1 500ML.BAG IV SCH ×2 (06:29→09:29)
--- NOTE | 2017-09-13 08:03 | P.PN ---
Subjective Progress Note Date: 09/13/17 Principal diagnosis: Respiratory failure Progress note dated 09/11/2017 This is a 62-year-old black male who was admitted on September 06. He apparently was initially admitted with a diagnosis of sepsis with a gangrenous toe. He started in the ER went to the general medical floor and 18 was called because of respiratory failure and acidosis. He that reason he was intubated on September 06 and transferred to the ICU. He was extubated initially on September 08 and then reintubated again on September 11. This was today at 4:00 in the morning. The patient's x-ray shows diffuse bilateral infiltrates worse on the right than on the left side. His current ventilator settings include the assist control mode, rate of 12, an FiO2 of 70%, tidal Byam of 500, PEEP of 10. Arterial blood gases show a PaO2 of 88 a PaCO2 of 37 and a pH of 7.36. His current IVs include a saline IV at 20 mL an hour, heparin via weightbase protocol for atrial fibrillation propofol at 35 mics per kilogram per minute and Cordarone at 0.5 mg/m. The patient's x-rays labs medications are all reviewed. Microbiology is all negative. I asked the nurse to resume his tube feeds. Progress note dated September 12 2017 62-year-old black male who was admitted on September 06. He apparently was initially admitted with a diagnosis of sepsis with a gr gangrenous toe. He started in the ER want to the general medical floor and a rapid response was called because of respiratory failure and severe acidosis. He was intubated on September 06 and transferred to the intensive care unit. He was initially extubated on September 08 and then reintubated again on September 11. That was at 4 :00 in the morning. My partner was called. His chest x-ray yesterday showed diffuse bilateral pulmonary infiltrates worse on the right than on the left. We made some changes yesterday. The patient's chest x-ray today is much improved suggesting that he has mostly pulmonary edema/heart failure. In fact, the echocardiogram did reveal evidence of severe mitral regurgitation. The patient clinically is much better today. We are going to have the vascular service surgeon see him about the great toe. Likely, thoracic surgery would not want to do anything if there was active infection. The patient's FiO2 was dropped from 50-40%. In addition, we'll be able to make some significant PEEP changes today.His current vent settings are the assist control mode rate of 22 tidal volume 400 FiO2 40% and PEEP of 13. The PEEP can probably be dropped down from 13-10 later today. Arterial blood gases show a PaO2 of 177 a PaCO2 of 41 and a pH of 7.35. His is consistent with a very mild metabolic acidosis. The patient's on heparin via weightbase protocol, propofol at 45 mics per kilogram per minute dopamine which is currently off started earlier this morning for bradycardia a saline IV at 20 mL an hour and vital high protein at 56 with a goal of 56 mL per hour. Progress note dated 09/13/2017 62-year-old black male who was admitted on September 06. He was initially admitted with a diagnosis of sepsis with a gangrenous toe. He was initially admitted from the ER to the general medical floor and then subsequent to that a rapid response was called because of respiratory failure and severe metabolic acidosis. He was intubated later on September 06 and was transferred to the ICU. He was initially extubated on and then reintubated again early in the morning of September 11 for respiratory failure. His chest x-ray showing waxing waning diffuse bilateral pulmonary infiltrates. These infiltrates, likely represent heart failure, but could also relate to pneumonia/ acute lung injury. The patient's echocardiogram did reveal severe mitral regurgitation. Cardiology is looking into that. Also, we have vascular surgeon looking at the gangrenous toe. The patient's FiO2 was dropped from 50 to 40%. In addition, the PEEP was dropped recently from 13-10 8. Arterial blood gases are reviewed. He is on the assist control mode with a rate of 22. Tidal Byam is 400. Other than that, the patient seems to be doing about the same. I did speak to the infectious disease franchise field consultant as well as a cardiology consult about this patient. Objective - Vital Signs Vital signs: Vital Signs Temp 99.3 F 09/13/17 04:00 Pulse 113 H 09/13/17 07:27 Resp 22 09/13/17 07:00 BP 94/70 09/12/17 19:00 Pulse Ox 99 09/13/17 07:00 Intake & Output 09/12/17 09/13/17 09/13/17 18:59 06:59 18:59 Intake Total 2010.432 2320.434 Output Total 2231 956 Balance -320.392 7291.434 Weight 86.4 kg 83.7 kg Intake: IV 282.5 335.0 Piperacillin-Tazobactam 3 62.5 75.0 .375 gm In Dextrose/Water 1 50ml.bag @ 12.5 mls/hr IVPB Q8HR AJ Rx#: [id number] Sodium Chloride 0.9% 1, 220 260 000 ml @ 20 mls/hr IV . Q24H AJ Rx#:[id number] Intake, IV Titration 790.932 999.434 Amount Amiodarone 450 mg In 229.413 Dextrose 5% in Water 250 ml @ 1 MG/MIN 33.33 mls/ hr IV .Q7H31M AJ Rx#: [id number] DOPamine DRIP 800 mg In 15.672 Dextrose/Water 1 500ml. bag @ 3 MCG/KG/MIN 9.31 mls/hr IV .Q24H AJ Rx#: [id number] Diltiazem 125 mg In 94.333 Sodium Chloride 0.9% 100 ml @ 10 MG/HR 10 mls/hr IV .[id number] AJ Rx#: [id number] Heparin Sod,Pork in 0.45% 500 475.688 NaCl 25,000 unit In 0.45 % NaCl 1 500ml.bag @ 12 UNITS/KG/HR 18.74 mls/hr IV .Q24H AJ Rx#: [id number] Propofol 1,000 mg In 275.260 200 Empty Bag 1 bag @ Titrate IV .Q0M AJ Rx#: [id number] Tube Feeding 778 896 Other 160 90 Output: Urine 2231 956 Other: Voiding Method Indwelling Catheter Indwelling Catheter ABP, PAP, CO, CI - Last Documented Arterial Blood Pressure 110/57 - Exam No acute distress, currently intubated with an orally placed endotracheal tube and NG tube HEENT examination is grossly unremarkable. Mucous membranes are moist. No oral lesions. Neck supple. Full range of motion. No adenopathy thyromegaly or neck vein distention. Cardiovascular examination reveals irregular rhythm rate. S1-S2 normal. No S3 or S4. No discernible murmur noted. Lungs reveal coarse bilateral breath sounds. Breath sounds are diminished. No crackles. Breath sounds are diminished more on the right side than the left. Abdomen soft bowel sounds are heard. No masses or tenderness. Extremities are intact. No cyanosis clubbing or edema. Skin is without rash or lesion. Neurologic examination could not be performed. - Labs CBC & Chem 7: 09/13/17 04:30 09/13/17 04:30 Labs: Abnormal Lab Results - Last 24 Hours (Table) 09/12/17 09/12/17 09/12/17 Range/Units 11:53 18:36 23:46 RBC (4.30-5.90) m/uL Hgb (13.0-17.5) gm/dL Hct (39.0-53.0) % MCHC (31.0-37.0) g/dL RDW (11.5-15.5) % APTT (22.0-30.0) sec ABG Total CO2 (19-24) mmol/L Chloride (98-107) mmol/L BUN (9-20) mg/dL Creatinine (0.66-1.25) mg/dL Glucose (74-99) mg/dL POC Glucose (mg/dL) 201 H 121 H 143 H (75-99) mg/dL Calcium (8.4-10.2) mg/dL ALT (21-72) U/L Total Protein (6.3-8.2) g/dL Albumin (3.5-5.0) g/dL 09/13/17 09/13/17 09/13/17 Range/Units 04:30 04:30 04:30 RBC 3.51 L (4.30-5.90) m/uL Hgb 9.7 L (13.0-17.5) gm/dL Hct 32.8 L (39.0-53.0) % MCHC 29.5 L (31.0-37.0) g/dL RDW 16.2 H (11.5-15.5) % APTT 42.2 H (22.0-30.0) sec ABG Total CO2 (19-24) mmol/L Chloride 108 H (98-107) mmol/L BUN 42 H (9-20) mg/dL Creatinine 1.60 H (0.66-1.25) mg/dL Glucose 120 H (74-99) mg/dL POC Glucose (mg/dL) (75-99) mg/dL Calcium 7.7 L (8.4-10.2) mg/dL ALT 283 H (21-72) U/L Total Protein 5.9 L (6.3-8.2) g/dL Albumin 2.8 L (3.5-5.0) g/dL 09/13/17 09/13/17 Range/Units 05:49 05:58 RBC (4.30-5.90) m/uL Hgb (13.0-17.5) gm/dL Hct (39.0-53.0) % MCHC (31.0-37.0) g/dL RDW (11.5-15.5) % APTT (22.0-30.0) sec ABG Total CO2 26 H (19-24) mmol/L Chloride (98-107) mmol/L BUN (9-20) mg/dL Creatinine (0.66-1.25) mg/dL Glucose (74-99) mg/dL POC Glucose (mg/dL) 126 H (75-99) mg/dL Calcium (8.4-10.2) mg/dL ALT (21-72) U/L Total Protein (6.3-8.2) g/dL Albumin (3.5-5.0) g/dL Microbiology - Last 24 Hours (Table) 09/11/17 16:15 Catheter Tip Culture - Preliminary Catheter Tip 09/11/17 11:32 Gram Stain - Preliminary Sputum Sputum Culture - Preliminary 09/11/17 10:12 Blood Culture - Preliminary Blood No Growth after 24 hours 09/11/17 10:18 Urine Culture - Final Urine,Catheterized Assessment and Plan Assessment: Assessment Acute hypoxemic respiratory failure secondary to sepsis/septic shock with a gangrenous toe and underlying cellulitis. Possible bilateral nosocomial pneumonia vs. acute lung injury Atrial fibrillation/RVR Congestive heart failure, , likely secondary to severe mitral regurgitation Intermittent sinus bradycardia History of CAD with previous stent placement History of COPD History of essential hypertension History of depression Peripheral vascular occlusive disease Hypothyroidism Hypertensive nephrosclerosis with chronic kidney disease, stage III Acute cellulitis and dry gangrene of the left big toe, status post debridement Plan: Plan dated 09/11/2017 The patient developed acute respiratory failure early this morning. My partner was called. He was reintubated. I'll make a slight change in the vent settings. We'll go with a low titer volume strategy. We'll drop a tidal volume from 500-400. We'll bump the rate from 16-24. PEEP will be increased from 10-13. I will review the labs x-rays a medications. We'll resume tube feeds. Prognosis is poor. Additional recommendations and suggestions are forthcoming. Plan dated 09/12/2017 Vascular surgery will come in to see the patient today.Labs x-rays a medications are all reviewed. The dopamine is now off. It was started for bradycardia. The patient's FiO2 was dropped from 50-40%. Likely will be able to make some PEEP changes as well. Chest x-ray is dramatically improved. We' ll continue to follow closely. Prognosis is guarded. The mitral valve issue is certainly likely the cause of the patient's flash pulmonary edema. He may even have mitral valve endocarditis. Plan dated 09/13/2017 The patient was seen by vascular surgery this morning. The surgeon feels like this is a dry gangrene and nothing active going on and no additional debridement or amputation is required. We'll let the infectious disease doctor know. The PEEP was dropped from 10 to 8. Gases are reviewed. His P/F ratio is 235 indicating mild ARDS. The chest x-ray is improved. Most of his issues in the lungs related to congestive heart failure because of the severe mitral regurgitation. We'll talk to cardiology about a CLARE as well as thoracic surgery about possible mitral valve repair/replacement. Time with Patient: Greater than 30
--- NOTE | 2017-09-13 08:27 | XR ---
EXAMINATION TYPE: XR chest 1V portable DATE OF EXAM: 09/13/2017 COMPARISON: 09/12/2017 HISTORY: Endotracheal tube placement TECHNIQUE: Single frontal view of the chest is obtained. FINDINGS: Persistent bibasilar opacities are similar to the prior of 09/12/2017. Endotracheal tube and enteric tube as well as right-sided headache are unchanged in location from the prior. No pneumothor ax is appreciated. Cardia mediastinal silhouette is upper limits of normal and stable from the prior. IMPRESSION: Stable bibasilar opacities, lines, and tubes in comparison to the prior exam of 09/12/2017 . Bibasilar opacities may represent atelectasis and/or pneumonia.
[2017-09-13] MEDS: PANTOPRAZOLE 40 MG TABLET PO SCH (09:24)
[2017-09-13] MEDS: METOPROLOL TARTRATE 5 MG/5 ML VIAL IVP SCH ×2 (09:28→19:55)
[2017-09-13] MEDS: FLUoxetine HCL 20 MG CAP PO SCH (09:29)
[2017-09-13] MEDS: CHLORHEXIDINE GLUCONATE 15 ML CUP MUCOUS MEM SCH ×2 (09:29→20:24)
[2017-09-13] MEDS: NICOTINE 21MG/24HR PATCH TRANSDERM SCH (10:07)
[2017-09-13] MEDS: PIPERACILLIN-TAZOBACTAM 3.375 GM in DEXTROSE/WATER 1 50ML.BAG IVPB SCH ×2 (10:09→16:19)
[2017-09-13] MEDS: SENNOSIDES 8.6 MG TAB PO SCH (10:58)
[2017-09-13] MEDS: HYDROmorphone 2 MG/ML 1 ML SYRINGE IVP PRN (11:02)
--- NOTE | 2017-09-13 11:09 | P.PN ---
Subjective Progress Note Date: 09/13/17 This patient remains intubated and sedated. Patient is in atrial fibrillation now. Rate is controlled with combination of Cardizem and amiodarone. Patient was seen by Dr. Addison and felt that is a ganglion the left foot is stable and doesn't need any surgical intervention. I spoke with Dr. Godoy regarding evaluation of hi mitral regurgitation and is going to a CLARE tomorrow morning. Dr. Mccann. She is going to keep him intubated until the CLARE is performed. If necessary we'll get a consult from the cardiac surgeons. Meanwhile patient will stay on current medical therapy Objective - Vital Signs Vital signs: Vital Signs Temp 97.9 F 09/13/17 08:00 Pulse 130 H 09/13/17 10:00 Resp 17 09/13/17 10:00 BP 96/64 09/13/17 10:00 Pulse Ox 100 09/13/17 10:00 Intake & Output 09/12/17 09/13/17 09/13/17 18:59 06:59 18:59 Intake Total 2011.432 2320.434 474.530 Output Total 2231 956 275 Balance -068.626 9168.434 199.530 Weight 86.4 kg 83.7 kg Intake: IV 282.5 335.0 72.5 Piperacillin-Tazobactam 3 62.5 75.0 12.5 .375 gm In Dextrose/Water 1 50ml.bag @ 12.5 mls/hr IVPB Q8HR AJ Rx#: [id number] Sodium Chloride 0.9% 1, 220 260 60 000 ml @ 20 mls/hr IV . Q24H AJ Rx#:[id number] Intake, IV Titration 790.932 999.434 204.030 Amount Amiodarone 450 mg In 229.413 Dextrose 5% in Water 250 ml @ 1 MG/MIN 33.33 mls/ hr IV .Q7H31M AJ Rx#: [id number] DOPamine DRIP 800 mg In 15.672 Dextrose/Water 1 500ml. bag @ 3 MCG/KG/MIN 9.31 mls/hr IV .Q24H AJ Rx#: [id number] Diltiazem 125 mg In 94.333 Sodium Chloride 0.9% 100 ml @ 10 MG/HR 10 mls/hr IV .[id number] AJ Rx#: [id number] Heparin Sod,Pork in 0.45% 500 475.688 89.01 NaCl 25,000 unit In 0.45 % NaCl 1 500ml.bag @ 12 UNITS/KG/HR 18.74 mls/hr IV .Q24H AJ Rx#: [id number] Propofol 1,000 mg In 275.260 200 115.020 Empty Bag 1 bag @ Titrate IV .Q0M AJ Rx#: [id number] Tube Feeding 778 896 168 Other 160 90 30 Output: Urine 2231 956 275 Other: Voiding Method Indwelling Catheter Indwelling Catheter Indwelling Catheter ABP, PAP, CO, CI - Last Documented Arterial Blood Pressure 112/71 - Exam GENERAL EXAM: Patient is intubated and sedated HEENT: Normocephalic. N CHEST: No chest wall deformity. LUNGS: Diminished breath sounds and diffuse rhonchi] HEART: [S1 and S2 normal ABDOMEN: No hepatosplenomegaly, normal bowel sounds, no guarding or rigidity. SKIN: No rashes CENTRAL NERVOUS SYSTEM: No focal deficits. EXTREMITIES: Left leg is wrapped - Labs CBC & Chem 7: 09/13/17 04:30 09/13/17 04:30 Labs: Abnormal Lab Results - Last 24 Hours (Table) 09/12/17 09/12/17 09/12/17 Range/Units 11:53 18:36 23:46 RBC (4.30-5.90) m/uL Hgb (13.0-17.5) gm/dL Hct (39.0-53.0) % MCHC (31.0-37.0) g/dL RDW (11.5-15.5) % APTT (22.0-30.0) sec ABG Total CO2 (19-24) mmol/L Chloride (98-107) mmol/L BUN (9-20) mg/dL Creatinine (0.66-1.25) mg/dL Glucose (74-99) mg/dL POC Glucose (mg/dL) 201 H 121 H 143 H (75-99) mg/dL Calcium (8.4-10.2) mg/dL ALT (21-72) U/L Total Protein (6.3-8.2) g/dL Albumin (3.5-5.0) g/dL 09/13/17 09/13/1718 Range/Units 04:30 04:30 04:30 RBC 3.51 L (4.30-5.90) m/uL Hgb 9.7 L (13.0-17.5) gm/dL Hct 32.8 L (39.0-53.0) % MCHC 29.5 L (31.0-37.0) g/dL RDW 16.2 H (11.5-15.5) % APTT 42.2 H (22.0-30.0) sec ABG Total CO2 (19-24) mmol/L Chloride 108 H (98-107) mmol/L BUN 42 H (9-20) mg/dL Creatinine 1.60 H (0.66-1.25) mg/dL Glucose 120 H (74-99) mg/dL POC Glucose (mg/dL) (75-99) mg/dL Calcium 7.7 L (8.4-10.2) mg/dL ALT 283 H (21-72) U/L Total Protein 5.9 L (6.3-8.2) g/dL Albumin 2.8 L (3.5-5.0) g/dL 09/13/17 09/13/17 Range/Units 05:49 05:58 RBC (4.30-5.90) m/uL Hgb (13.0-17.5) gm/dL Hct (39.0-53.0) % MCHC (31.0-37.0) g/dL RDW (11.5-15.5) % APTT (22.0-30.0) sec ABG Total CO2 26 H (19-24) mmol/L Chloride (98-107) mmol/L BUN (9-20) mg/dL Creatinine (0.66-1.25) mg/dL Glucose (74-99) mg/dL POC Glucose (mg/dL) 126 H (75-99) mg/dL Calcium (8.4-10.2) mg/dL ALT (21-72) U/L Total Protein (6.3-8.2) g/dL Albumin (3.5-5.0) g/dL Microbiology - Last 24 Hours (Table) 09/11/17 11:32 Gram Stain - Final Sputum Sputum Culture - Final 09/11/17 16:15 Catheter Tip Culture - Preliminary Catheter Tip 09/11/17 10:12 Blood Culture - Preliminary Blood No Growth after 24 hours 09/11/17 10:18 Urine Culture - Final Urine,Catheterized Assessment and Plan (1) CAD (coronary artery disease) Current Visit: Yes Status: Acute Code(s): I25.10 - ATHSCL HEART DISEASE OF [place] CORONARY ARTERY W/O ANG PCTRS SNOMED Code(s): 93521974 (2) Peripheral vascular disease Current Visit: Yes Status: Acute Code(s): I73.9 - PERIPHERAL VASCULAR DISEASE, UNSPECIFIED SNOMED Code(s): 413440645 (3) New onset a-fib Current Visit: No Status: Acute Code(s): I48.91 - UNSPECIFIED ATRIAL FIBRILLATION SNOMED Code(s): 87681648 (4) Acute pulmonary edema Current Visit: Yes Status: Acute Code(s): J81.0 - ACUTE PULMONARY EDEMA SNOMED Code(s): 88090108 (5) Pneumonia Current Visit: Yes Status: Acute Code(s): J18.9 - PNEUMONIA, UNSPECIFIED ORGANISM SNOMED Code(s): 523110488 Plan: Patient chest x-ray shows improvement. Patient is in atrial fibrillation controlled and corresponds. Dr. Godoy is going to do CLARE tomorrow morning for further evaluation of mitral regurgitation. Further recommendation to follow
[2017-09-13 12:06] LABS: Glucose,Whole Blood 107 mg/dL (75-99)
[2017-09-13] MEDS: SODIUM CHLORIDE 0.9% 1,000 ML IV SCH (12:51)
[2017-09-13 15:48] LABS: Ionized Calcium 4.6 mg/dL (4.5-5.3)
--- NOTE | 2017-09-13 16:04 | PN ---
PROGRESS NOTE DATE OF SERVICE: 09/13/2017. REASON FOR FOLLOWUP: Left 1st and 2nd toe possible dry gangrene with cellulitis and possible aspiration pneumonia. INTERVAL HISTORY: The patient is afebrile. He is hemodynamically stable. Not on any pressor support. He is on amiodarone and Cardizem. has been scheduled for tomorrow. He did have some frothy secretions through the ET per the RN. Tolerating his tube feeds and no diarrhea. Remains to be intubated on the vent. EXAMINATION: Blood pressure 111/52 with a pulse of 150, temperature of 99.7. He is 100% on 40% FiO2. General description is a middle-aged male lying in bed in no distress. RESPIRATORY SYSTEM: Unlabored breathing. Clear to auscultation anteriorly. HEART: S1, S2. Regular rate and rhythm. ABDOMEN: Soft, no tenderness. Left 1st and 2nd toe with some dry gangrenous changes. No open wound. No drainage. LABS: Hemoglobin 9.7, white count 9.6, BUN of 42, creatinine 1.60. DIAGNOSTIC IMPRESSION AND PLAN: 1. Patient with recurrent vent dependent respiratory failure, likely secondary to cardiac etiology. Clinically doubt any infectious, less likely pneumonia. Currently covered with Zosyn for possible aspiration. Will continue. 2. Patient with left first and second toe wound with cellulitis and possible gangrene. No features suggestive of an abscess. Will continue to monitor closely. Continue dry Aquacel silver dressing. MMODL / IJN: [id number] /
[2017-09-13 16:05] LABS: Phosphorus 2.5 mg/dL (2.5-4.5); Potassium 4.8 mmol/L (3.5-5.1)
[2017-09-13 17:05] LABS: Glucose,Whole Blood 114 mg/dL (75-99)
--- NOTE | 2017-09-13 17:10 | PN ---
PROGRESS NOTE Patient is seen for followup for acute kidney injury. His renal function is currently improved. He has been diuresed for pulmonary edema. The patient also has significant valvular heart disease and is scheduled for CLARE in a.m. He remains on the vent, fairly stable. FiO2 is 40% with good urine output. EXAMINATION: Blood pressure was 112/71, heart rate 118 per minute. Patient is afebrile. Examination of the heart: S1, S2. Examination lungs: Bilateral breath sounds are heard. Abdomen is soft, nontender. Examination lower extremities shows gangrenous changes in the left 1st and 2nd toes. No significant edema is noted. [employer] exam cannot be performed. LAB: Show sodium 140, potassium 4.0, chloride 108, serum creatinine 1.6 mg/dL. ASSESSMENT: 1. Acute kidney injury with serum creatinine peaking at about 2.3. It had started to improve and serum creatinine is slightly higher than yesterday. The patient continues to have good urine output. The etiology for the recent elevation in the serum creatinine is most likely secondary to hemodynamic instability with atrial fibrillation with RVR. Currently patient is diuresing on his own. He did receive Lasix yesterday. We will hold off on diuretics today. 2. Pulmonary edema, currently improving. Chest x-ray from today is fairly stable. 3. Possible renal artery stenosis. The patient will need renal angiogram which can be done down the road. 4. Mitral valve regurgitation scheduled for possible CLARE tomorrow. PLAN: No Lasix today. Repeat labs in a.m. Continue antibiotics and rate control for atrial fibrillation. MMODL / IJN: [id number] /
--- NOTE | 2017-09-13 21:38 | PN ---
PROGRESS NOTE DATE OF SERVICE: 09/13/17 PRESENTING COMPLAINT: Intubated. INTERVAL HISTORY: This is a patient initially admitted with infected left toe from recent trauma, having failed outpatient treatment. The patient went into arrhythmia, went into respiratory failure and was intubated. The patient was extubated and had to be reintubated. The patient remains on the ventilator. FiO2 40 and a PEEP of 5. Drips include IV heparin, Diprivan and IV amiodarone and Cardizem. Also remains in atrial fibrillation uncontrolled, having increased trach secretions. REVIEW OF SYSTEMS: Patient is intubated. CURRENT MEDICATIONS: Include IV heparin, Diprivan, amiodarone, Cardizem, antibiotics. PHYSICAL EXAMINATION: Temperature 99, pulse 138, respiration 22, blood pressure 98/61. GENERAL APPEARANCE: Lying in bed, intubated. Eyes pupil equal. Conjunctivae normal. HEENT external appearance of nose and ears normal. Oral cavity: Endotracheal tube in place. Neck: JVD unable to assess. Mass not palpable. RESPIRATORY: Effort increased. Lungs decreased breath sounds. Cardiovascular: HEART: Sounds irregular. No edema. ABDOMEN: Soft, nontender. Liver and spleen not palpable. Psychiatry unable to assess. Dermatological: Left big toe wound. INVESTIGATIONS: White count 9.6, hemoglobin 9.7, potassium 4.05, BUN 42, creatinine 1.60, ALT 283. ASSESSMENT: 1. Acute big toe cellulitis and wound secondary to trauma, having failed outpatient treatment. 2. Acute hypoxic respiratory failure secondary to sepsis requesting ventilator assistance. Patient was reintubated. 3. Bilateral pneumonia suspect gram-negative organism, possibly causing sepsis. 4. Acute pulmonary edema could be arrhythmia related. 5. Acute metabolic acidosis. 6. Acute kidney injury secondary to acute tubular necrosis secondary to sepsis with some biochemical improvement. 7. Acute shock liver, biochemical improvement from hypertension. 8. Persistent atrial fibrillation uncontrolled. Patient on Eliquis. Also currently on IV amiodarone and Cardizem. 9. Chronic kidney stage 3 from nephrosclerosis with baseline creatinine of 1.3. 10.Acute chronic obstructive pulmonary disease exacerbation in a current smoker. 11.Chronic nicotine dependence in a cigarette smoker. 12.Coronary artery disease, prior history of stent. 13.Hypothyroidism. 14.Essential hypertension history. 15.Hyperlipidemia. 16.Peripheral artery disease. 17.Depression, anxiety not otherwise specified. PLAN: Continue current medication and treatment plan including IV heparin, Diprivan, Amiodarone and Cardizem. Patient due for a CLARE tomorrow. Prognosis remains guarded. No family at the bedside. ALEXL / IJN: [id number] /
[2017-09-13 23:43] LABS: Glucose,Whole Blood 132 mg/dL (75-99)
[2017-09-14] MEDS: PIPERACILLIN-TAZOBACTAM 3.375 GM in DEXTROSE/WATER 1 50ML.BAG IVPB SCH ×3 (00:08→17:28)
[2017-09-14] MEDS: METOPROLOL TARTRATE 5 MG/5 ML VIAL IVP SCH ×3 (00:09→18:18)
[2017-09-14] MEDS: PROPOFOL 1,000 MG in EMPTY BAG 1 BAG IV SCH ×5 (00:12→22:45)
[2017-09-14] MEDS: HEPARIN SOD,PORK IN 0.45% NACL 25,000 UNIT in 0.45% NACL 1 500ML.BAG IV SCH ×2 (02:21→23:46)
[2017-09-14] MEDS: IPRATROPIUM-ALBUTEROL 3 ML NEB INHALATION SCH ×6 (03:59→22:46)
[2017-09-14] MEDS: AMIODARONE 450 MG in DEXTROSE 5% IN WATER 250 ML IV SCH ×4 (04:30→20:20)
[2017-09-14 05:10] LABS: ABG Base Excess 0.8 mmol/L; ABG HCO3 25 mmol/L (21-25); ABG Oxygen Saturation 98.7 % (94-97); ABG PCO2 36 mmHg (35-45); ABG PH 7.45 (7.35-7.45); ABG PO2 103 mmHg (83-108); ABG TCO2 26 mmol/L (19-24)
[2017-09-14 05:44] LABS: Anisocytosis Slight; HCT 31.5 % (39.0-53.0); HGB 9.8 gm/dL (13.0-17.5); Hypochromasia Moderate; MCH 29.2 pg (25.0-35.0); MCHC 31.3 g/dL (31.0-37.0); MCV 93.3 fL (80.0-100.0); Mean Platelet Volume 8.7; Platelet Count 296 k/uL (150-450); RBC 3.37 m/uL (4.30-5.90); RDW 16.3 % (11.5-15.5); WBC 9.5 k/uL (3.8-10.6)
[2017-09-14 05:59] LABS: INR 1.2 (<1.2); Partial Thromboplastin Time 52.3 sec (22.0-30.0); Prothrombin Time 11.2 sec (9.0-12.0)
[2017-09-14 06:05] LABS: ALT 205 U/L (21-72); AST 35 U/L (17-59); Albumin 2.7 g/dL (3.5-5.0); Alkaline Phosphatase 70 U/L (38-126); Anion Gap 8 mmol/L; Blood Urea Nitrogen 31 mg/dL (9-20); Calcium 8.3 mg/dL (8.4-10.2); Carbon Dioxide 25 mmol/L (22-30); Chloride 107 mmol/L (98-107); Glucose 104 mg/dL (74-99); Phosphorus 3.4 mg/dL (2.5-4.5); Potassium 4.4 mmol/L (3.5-5.1); Sodium 140 mmol/L (137-145); Total Bilirubin 0.3 mg/dL (0.2-1.3); Total Protein 5.7 g/dL (6.3-8.2)
[2017-09-14 06:22] LABS: Glucose,Whole Blood 100 mg/dL (75-99)
[2017-09-14] MEDS: INSULIN ASPART 100 UNIT/ML 1 ML 10 ML VIAL SQ SCH ×3 (06:43→18:45)
[2017-09-14] MEDS: DOPamine DRIP 800 MG in DEXTROSE/WATER 1 500ML.BAG IV SCH (06:47)
[2017-09-14] MEDS: LEVOTHYROXINE 25 MCG TAB PO SCH (06:48)
--- NOTE | 2017-09-14 07:01 | XR ---
EXAMINATION TYPE: XR chest 1V portable DATE OF EXAM: 09/14/2017 CLINICAL HISTORY: Difficulty breathing progress study. TECHNIQUE: Single AP portable upright view of the chest is obtained. COMPARISON: Chest x-ray from one day earlier and older studies. FINDINGS: There is stable endotracheal tube, orogastric tube, and right-sided PICC line. There are b ibasilar opacities redemonstrated cardiac silhouette size is stable and mildly enlarged with mild prince tral vascular congestion. Upper lungs are clear without pneumothorax. Osseous structures are intact. IMPRESSION: Overall stable findings, cardiomegaly with bibasilar opacities favoring small bilateral pleural effusions and associated bibasilar atelectasis and/or infiltrate all redemonstrated.
[2017-09-14] MEDS: HYDROmorphone 4 MG/ML 1 ML SYRINGE IVP PRN ×2 (08:26→17:28)
[2017-09-14] MEDS ORDERED: ALPRAZolam 0.5 MG TAB PO PRN (08:28)
[2017-09-14] MEDS ORDERED: ASPIRIN 325 MG TAB PO STA (08:28)
[2017-09-14] MEDS ORDERED: ALPRAZolam 0.25 MG TAB PO PRN (08:28)
[2017-09-14] MEDS ORDERED: SODIUM CHLORIDE 0.9% 1,000 ML in EMPTY BAG 1 BAG IV ONE (08:28)
[2017-09-14] MEDS ORDERED: ATORVASTATIN 80 MG TAB PO STA (08:28)
[2017-09-14] MEDS: MAGNESIUM SULFATE-D5W PMX 1 GM in DEXTROSE/WATER 1 100ML.BAG IVPB SCH ×2 (08:28→09:30)
[2017-09-14] MEDS ORDERED: NITROGLYCERIN SL TABS 0.4 MG TAB SUBLINGUAL PRN (08:28)
[2017-09-14] MEDS: DILTIAZEM 125 MG in SODIUM CHLORIDE 0.9% 100 ML IV SCH ×2 (08:29→20:32)
--- NOTE | 2017-09-14 09:34 | P.PN ---
Subjective Progress Note Date: 09/14/17 Principal diagnosis: Respiratory failure Progress note dated 09/11/2017 This is a 62-year-old black male who was admitted on September 06. He apparently was initially admitted with a diagnosis of sepsis with a gangrenous toe. He started in the ER went to the general medical floor and 18 was called because of respiratory failure and acidosis. He that reason he was intubated on September 06 and transferred to the ICU. He was extubated initially on September 08 and then reintubated again on September 11. This was today at 4:00 in the morning. The patient's x-ray shows diffuse bilateral infiltrates worse on the right than on the left side. His current ventilator settings include the assist control mode, rate of 12, an FiO2 of 70%, tidal Byam of 500, PEEP of 10. Arterial blood gases show a PaO2 of 88 a PaCO2 of 37 and a pH of 7.36. His current IVs include a saline IV at 20 mL an hour, heparin via weightbase protocol for atrial fibrillation propofol at 35 mics per kilogram per minute and Cordarone at 0.5 mg/m. The patient's x-rays labs medications are all reviewed. Microbiology is all negative. I asked the nurse to resume his tube feeds. Progress note dated September 12 2017 62-year-old black male who was admitted on September 06. He apparently was initially admitted with a diagnosis of sepsis with a gr gangrenous toe. He started in the ER want to the general medical floor and a rapid response was called because of respiratory failure and severe acidosis. He was intubated on September 06 and transferred to the intensive care unit. He was initially extubated on September 08 and then reintubated again on September 11. That was at 4 :00 in the morning. My partner was called. His chest x-ray yesterday showed diffuse bilateral pulmonary infiltrates worse on the right than on the left. We made some changes yesterday. The patient's chest x-ray today is much improved suggesting that he has mostly pulmonary edema/heart failure. In fact, the echocardiogram did reveal evidence of severe mitral regurgitation. The patient clinically is much better today. We are going to have the vascular service surgeon see him about the great toe. Likely, thoracic surgery would not want to do anything if there was active infection. The patient's FiO2 was dropped from 50-40%. In addition, we'll be able to make some significant PEEP changes today.His current vent settings are the assist control mode rate of 22 tidal volume 400 FiO2 40% and PEEP of 13. The PEEP can probably be dropped down from 13-10 later today. Arterial blood gases show a PaO2 of 177 a PaCO2 of 41 and a pH of 7.35. His is consistent with a very mild metabolic acidosis. The patient's on heparin via weightbase protocol, propofol at 45 mics per kilogram per minute dopamine which is currently off started earlier this morning for bradycardia a saline IV at 20 mL an hour and vital high protein at 56 with a goal of 56 mL per hour. Progress note dated 09/13/2017 62-year-old black male who was admitted on September 06. He was initially admitted with a diagnosis of sepsis with a gangrenous toe. He was initially admitted from the ER to the general medical floor and then subsequent to that a rapid response was called because of respiratory failure and severe metabolic acidosis. He was intubated later on September 06 and was transferred to the ICU. He was initially extubated on and then reintubated again early in the morning of September 11 for respiratory failure. His chest x-ray showing waxing waning diffuse bilateral pulmonary infiltrates. These infiltrates, likely represent heart failure, but could also relate to pneumonia/ acute lung injury. The patient's echocardiogram did reveal severe mitral regurgitation. Cardiology is looking into that. Also, we have vascular surgeon looking at the gangrenous toe. The patient's FiO2 was dropped from 50 to 40%. In addition, the PEEP was dropped recently from 13-10 8. Arterial blood gases are reviewed. He is on the assist control mode with a rate of 22. Tidal Byam is 400. Other than that, the patient seems to be doing about the same. I did speak to the infectious disease category consultant as well as a cardiology consult about this patient. Progress note dated 09/14/2017 62-year-old black male who was admitted back on September 06. He was initially admitted with a diagnosis of sepsis and a gangrenous toe. Vascular surgery saw the patient yesterday and determined that he had dry gangrene and no debridement or amputation was necessary. The patient was initially admitted from the emergency room to the general medical floor and subsequent to that a rapid response team was called because of respiratory failure and severe metabolic acidosis. He was moved he was intubated later on September 06 and was transferred to the ICU. The patient was then initially extubated on September 08 and the reintubated again early in the morning on September for respiratory failure. His pattern has been that of flash pulmonary edema although, acute lung injury/nosocomial pneumonia, could not be excluded. Mostly though, we believe it relates to heart failure from a case of severe mitral regurgitation. The patient underwent transesophageal echocardiogram this morning and was determined to have severe mitral regurgitation and thought to have an ejection fraction of 25%. He is scheduled for heart catheterization on September 15 and the patient will be seen by cardiothoracic surgery. Currently he is on IV heparin via weightbase protocol propofol at 45 mics per kilogram per minute, Cordarone at 0.5 mg/m Cardizem drip at 10 mg an hour saline IV at 20 mL an hour and vital high protein at 56 mL an hour with a goal of 56. The patient's vent settings include the assist control mode rate of 22 tidal volume of 400 FiO2 40% and PEEP of 5. Blood gases show a PaO2 of 103 a PaCO2 of 36 and a pH 7.45. This is consistent with mild respiratory alkalosis. The patient probably could be extubated. But because she is having a heart cath tomorrow, my inclination is to keep monitoring ventilator until then Objective - Vital Signs Vital signs: Vital Signs Temp 100 F H 09/14/17 04:00 Pulse 112 H 09/14/17 08:27 Resp 20 09/14/17 06:00 BP 102/55 09/14/17 06:00 Pulse Ox 97 09/14/17 06:00 Intake & Output 09/13/17 09/14/17 09/14/17 18:59 06:59 18:59 Intake Total 8080.347 2955.918 201.68 Output Total 1060 1650 Balance 479.140 36.918 201.68 Intake: IV 340.5 366 Piperacillin-Tazobactam 3 87.5 50 .375 gm In Dextrose/Water 1 50ml.bag @ 12.5 mls/hr IVPB Q8HR AJ Rx#: [id number] Pressure Bag 33 56 Sodium Chloride 0.9% 1, 220 260 000 ml @ 20 mls/hr IV . Q24H AJ Rx#:[id number] Intake, IV Titration 492.640 924.918 201.68 Amount Amiodarone 450 mg In 241.848 Dextrose 5% in Water 250 ml @ 1 MG/MIN 33.33 mls/ hr IV .Q7H31M AJ Rx#: [id number] Diltiazem 125 mg In 125 125 Sodium Chloride 0.9% 100 ml @ 10 MG/HR 10 mls/hr IV .[id number] AJ Rx#: [id number] Heparin Sod,Pork in 0.45% 89.01 500 NaCl 25,000 unit In 0.45 % NaCl 1 500ml.bag @ 12 UNITS/KG/HR 18.74 mls/hr IV .Q24H AJ Rx#: [id number] Propofol 1,000 mg In 278.630 183.07 76.68 Empty Bag 1 bag @ Titrate IV .Q0M AJ Rx#: [id number] Tube Feeding 616 336 Other 90 60 Output: Urine 1060 1650 Other: Voiding Method Indwelling Catheter Indwelling Catheter # Voids 2 ABP, PAP, CO, CI - Last Documented Arterial Blood Pressure 110/61 - Exam No acute distress, currently intubated with an orally placed endotracheal tube and NG tube HEENT examination is grossly unremarkable. Mucous membranes are moist. No oral lesions. Neck supple. Full range of motion. No adenopathy thyromegaly or neck vein distention. Cardiovascular examination reveals irregular rhythm rate. S1-S2 normal. No S3 or S4. No discernible murmur noted. Lungs reveal coarse bilateral breath sounds. Breath sounds are diminished. No crackles. Breath sounds are diminished more on the right side than the left. Abdomen soft bowel sounds are heard. No masses or tenderness. Extremities are intact. No cyanosis clubbing or edema. Skin is without rash or lesion. Neurologic examination could not be performed. - Labs CBC & Chem 7: 09/14/17 05:10 09/14/17 05:10 Labs: Abnormal Lab Results - Last 24 Hours (Table) 09/13/17 09/13/17 09/13/17 Range/Units 12:00 12:03 17:04 RBC (4.30-5.90) m/uL Hgb (13.0-17.5) gm/dL Hct (39.0-53.0) % RDW (11.5-15.5) % INR (<1.2) APTT 58.1 H (22.0-30.0) sec ABG Total CO2 (19-24) mmol/L ABG O2 Saturation (94-97) % BUN (9-20) mg/dL Creatinine (0.66-1.25) mg/dL Glucose (74-99) mg/dL POC Glucose (mg/dL) 107 H 114 H (75-99) mg/dL Calcium (8.4-10.2) mg/dL ALT (21-72) U/L Total Protein (6.3-8.2) g/dL Albumin (3.5-5.0) g/dL 09/13/17 09/14/17 09/14/17 Range/Units 23:41 05:07 05:10 RBC (4.30-5.90) m/uL Hgb (13.0-17.5) gm/dL Hct (39.0-53.0) % RDW (11.5-15.5) % INR (<1.2) APTT (22.0-30.0) sec ABG Total CO2 26 H (19-24) mmol/L ABG O2 Saturation 98.7 H (94-97) % BUN 31 H (9-20) mg/dL Creatinine 1.40 H (0.66-1.25) mg/dL Glucose 104 H (74-99) mg/dL POC Glucose (mg/dL) 132 H (75-99) mg/dL Calcium 8.3 L (8.4-10.2) mg/dL ALT 205 H (21-72) U/L Total Protein 5.7 L (6.3-8.2) g/dL Albumin 2.7 L (3.5-5.0) g/dL 09/14/17 09/14/17 09/14/17 Range/Units 05:10 05:10 06:20 RBC 3.37 L (4.30-5.90) m/uL Hgb 9.8 L (13.0-17.5) gm/dL Hct 31.5 L (39.0-53.0) % RDW 16.3 H (11.5-15.5) % INR 1.2 H (<1.2) APTT 52.3 H (22.0-30.0) sec ABG Total CO2 (19-24) mmol/L ABG O2 Saturation (94-97) % BUN (9-20) mg/dL Creatinine (0.66-1.25) mg/dL Glucose (74-99) mg/dL POC Glucose (mg/dL) 100 H (75-99) mg/dL Calcium (8.4-10.2) mg/dL ALT (21-72) U/L Total Protein (6.3-8.2) g/dL Albumin (3.5-5.0) g/dL Microbiology - Last 24 Hours (Table) 09/11/17 16:15 Catheter Tip Culture - Preliminary Catheter Tip 09/11/17 10:12 Blood Culture - Preliminary Blood No Growth after 48 hours 09/11/17 11:32 Gram Stain - Final Sputum Sputum Culture - Final Assessment and Plan Assessment: Assessment Acute hypoxemic respiratory failure secondary to sepsis/septic shock with a gangrenous toe and underlying cellulitis. Possible bilateral nosocomial pneumonia vs. acute lung injury Atrial fibrillation/RVR Congestive heart failure, secondary to severe mitral regurgitation and cardiomyopathy with an ejection fraction of 25% Intermittent sinus bradycardia History of CAD with previous stent placement History of COPD History of essential hypertension History of depression Peripheral vascular occlusive disease Hypothyroidism Hypertensive nephrosclerosis with chronic kidney disease, stage III Acute cellulitis and dry gangrene of the left big toe, status post debridement Plan: Plan dated 09/11/2017 The patient developed acute respiratory failure early this morning. My partner was called. He was reintubated. I'll make a slight change in the vent settings. We'll go with a low titer volume strategy. We'll drop a tidal volume from 500-400. We'll bump the rate from 16-24. PEEP will be increased from 10-13. I will review the labs x-rays a medications. We'll resume tube feeds. Prognosis is poor. Additional recommendations and suggestions are forthcoming. Plan dated 09/12/2017 Vascular surgery will come in to see the patient today.Labs x-rays a medications are all reviewed. The dopamine is now off. It was started for bradycardia. The patient's FiO2 was dropped from 50-40%. Likely will be able to make some PEEP changes as well. Chest x-ray is dramatically improved. We' ll continue to follow closely. Prognosis is guarded. The mitral valve issue is certainly likely the cause of the patient's flash pulmonary edema. He may even have mitral valve endocarditis. Plan dated 09/13/2017 The patient was seen by vascular surgery this morning. The surgeon feels like this is a dry gangrene and nothing active going on and no additional debridement or amputation is required. We'll let the infectious disease doctor know. The PEEP was dropped from 10 to 8. Gases are reviewed. His P/F ratio is 235 indicating mild ARDS. The chest x-ray is improved. Most of his issues in the lungs related to congestive heart failure because of the severe mitral regurgitation. We'll talk to cardiology about a CLARE as well as thoracic surgery about possible mitral valve repair/replacement. Plan dated 09/14/2017 The patient had his transesophageal echocardiogram today. His ejection fraction was estimated at 25% and he has severe mitral regurgitation. The patient scheduled for heart catheterization tomorrow. The patient will be maintained on the ventilator since then. Blood gases are reasonable. Chest x- rays improved although he did still has a pattern of some mild fluid overload. The patient remains on IV heparin via weightbase protocol propofol Cordarone and Cardizem and his tube feeds. Overall prognosis is poor. We'll continue to watch patient very closely. Additional recommendations and suggestions are forthcoming. Time with Patient: Greater than 30
[2017-09-14] MEDS: NICOTINE 21MG/24HR PATCH TRANSDERM SCH (09:52)
[2017-09-14] MEDS: SENNOSIDES 8.6 MG TAB PO SCH (09:52)
[2017-09-14] MEDS: FLUoxetine HCL 20 MG CAP PO SCH (09:52)
[2017-09-14] MEDS: PANTOPRAZOLE 40 MG TABLET PO SCH (09:52)
[2017-09-14] MEDS: CHLORHEXIDINE GLUCONATE 15 ML CUP MUCOUS MEM SCH ×2 (10:01→21:20)
[2017-09-14 11:44] LABS: Glucose,Whole Blood 113 mg/dL (75-99)
--- NOTE | 2017-09-14 14:51 | PN ---
PROGRESS NOTE Patient is seen for followup for acute kidney injury. He was noted to have significant mitral valve regurgitation and is scheduled for a CLARE. Patient continues to have good urine output. He is stable on the vent. He has not received any diuretics. He is not on any IV fluids. PHYSICAL EXAMINATION: Blood pressure is 102/55, heart rate 114-112 per minute. Patient is afebrile. Examination of the heart, S1, S2. Examination of the lungs, bilateral breath sounds are heard. Abdomen is soft, nontender. Lower extremities shows edema, trace bilaterally. The left 1st and 2nd toes do have dry gangrene. LINEN GRADER exam is not performed. LABS: Show sodium 140, potassium 4.4, BUN 31, serum creatinine 1.4, hemoglobin 9.8 g/dL. ASSESSMENT: 1. Acute kidney injury secondary to hemodynamic instability from atrial fibrillation with RVR, currently improved. 2. CHF, pulmonary edema, improved as well. Currently not on any Lasix. Patient remains on the vent. 3. Severe mitral regurgitation, scheduled for CLARE. 4. Possible renal artery stenosis. We will hold off on the renal angiogram for now, perhaps workup down the road. 5. Peripheral vascular disease and dry gangrene left 1st and 2nd toes, currently stable. PLAN: Hold off on any Lasix for now. Repeat labs in a.m. MMODL / IJN: [id number] /
--- NOTE | 2017-09-14 16:48 | PN ---
PROGRESS NOTE DATE OF SERVICE: 09/14/2017. REASON FOR FOLLOWUP: 1. Left foot cellulitis. 2. Possible pneumonia. INTERVAL HISTORY: The patient is afebrile. He is hemodynamically stable. Not on any pressor support. The patient did have a CLARE this morning that did show severe MR with low EF. Scheduled for a cardiac cath tomorrow. Tolerating tube feeds. No significant diarrhea. EXAMINATION: Blood pressure 102/55 with a pulse of 140, temperature of 98. He is 97% on 40% FiO2. General description is a middle aged male lying in bed in no distress. RESPIRATORY SYSTEM: Unlabored breathing with decreased breath sounds at the base. No wheeze. HEART: S1, S2. Irregular rhythm. ABDOMEN: Soft, no tenderness. Left foot first and second toe with some discoloration, but no open wounds and no drainage. LABS: Hemoglobin is 9.8, white count 3.5, BUN of 31, creatinine 1.40. DIAGNOSTIC IMPRESSION AND PLAN: Patient with left foot wound and cellulitis with recurrent respiratory failure secondary to his underlying severe MR. Clinically doubt any infectious etiology. Pneumonia less likely. Currently on Zosyn. That should cover both the possible pneumonia as well as left foot cellulitis. Continue supportive care. MMODL / IJN: [id number] /
--- NOTE | 2017-09-14 16:49 | P.GSCN ---
<William Bhatti - Last Filed: 09/14/17 16:46> History of Present Illness Consult date: 09/14/17 Reason for Consult: Severe mitral valve regurgitation, surgical recommendations. Requesting physician: Bradford Godoy History of present illness: This is a 62-year-old gentleman who is followed by Dr. Mccormack on an outpatient basis. The patient has multiple medical problems including chronic persistent atrial fibrillation on Eliquis for anticoagulation, depression, peripheral arterial disease, chronic nicotine dependence, chronic kidney disease stage III, hypertension, history of coronary artery disease with previous stent placement, GERD and hypothyroidism. On 08/26/2017 the patient presented to the emergency department here at [facility] with complaints of left foot pain and swelling which was mainly to his left great toe. The patient has had previous trauma to the left foot after tripping over a coffee table a couple weeks ago. The patient is a poor historian and most of the information collected is from his cousin who is at his bedside. The patient had denied any shortness of breath, dizziness, chest pain, nausea, vomiting, diarrhea, weakness, or visual disturbances. He was subsequently underwent an x-ray of his left foot which did not demonstrate any fracture at that time and he was subsequently discharged home on Keflex 500 mg by mouth 3 times a day for 10 days to treat a a positive culture for anaerobic gram- positive cocci. He was also instructed to follow-up with his primary care physician and to wrap his left great toe with medi-honey. Subsequently the patient presented back to the emergency department here at [facility] on 09/05/2017 with persistent pain and swelling to his left foot and left great toe. A repeat x-ray of his left foot was completed which showed no acute fracture or dislocation, it did show mild to moderate diffuse persistent soft tissue swelling. The patient was admitted for further treatment and evaluation. On 09/06/2017 the patient became unresponsive, bradycardic with heart rate in the 30s and hypotensive. ACLS protocols were initiated, and the patient was intubated and subsequently transferred to the intensive care unit for further hemodynamic monitoring. Lab work on 09/06/2017 showed normal troponins, AST 1758, ALT 1039, lactic acid level of 7.8, WBC count of 12.0 and hemoglobin of 10.5. While in the intensive care unit the patient developed some atrial fibrillation which was treated accordingly. The patient was extubated on 09/08/2017 and supported on BiPAP and was subsequently reintubated on 09/11/2017. A 2-D echocardiogram was completed which demonstrated an overall left ventricular systolic function to be normal with an ejection fraction between 55 and 60%, moderate aortic valve regurgitation, severe mitral valve regurgitation, mild tricuspid valve regurgitation and trivial pulmonic valve regurgitation. On 09/14/2015 a bedside CLARE was completed which demonstrated severe mitral valve regurgitation with a flail anterior leaflet and a severely impaired left ventricular function with an ejection fraction of 30-35%. Due to the patient's above-mentioned history and results of his 2-D echocardiogram and CLARE a consult was placed to Dr. Carl Banks from cardiothoracic surgery for further evaluation and surgical recommendations. Review of Systems A 12 point review of systems was completed and was negative except as mentioned in the HPI Past Medical History Past Medical History: Atrial Fibrillation, Coronary Artery Disease (CAD), COPD, GERD/Reflux, Hyperlipidemia, Hypertension, Myocardial Infarction ([place]), Thyroid Disorder, Vascular Disorder Additional Past Medical History / Comment(s): Pt recently admitted to [facility] with atrial fibrillation RVR, L foot swelling /cellulitis/ pain and eosinophilia undetermined etiology/ to follow up with Dr. Winters. Other Hx: Chronic kidney disease stage III, hypothyroid, PAD, diverticular dx, past ETOH abuse. Last Myocardial Infarction Date:: 09/2011 History of Any Multi-Drug Resistant Organisms: None Reported Past Surgical History: Heart Catheterization With Stent Additional Past Surgical History / Comment(s): colonoscopy, abdominal aortogram with bilateral run-offs. Past Anesthesia/Blood Transfusion Reactions: No Reported Reaction Date of Last Stent Placement:: 09/2011 Past Psychological History: Anxiety, Depression Additional Psychological History / Comment(s): Pt resides alone. He uses a cane to ambulate and has a L foot medi shoe. He does not drive. He gets to [facility] with his cousin. Smoking Status: Current every day smoker Past Alcohol Use History: Occasional Additional Past Alcohol Use History / Comment(s): Pt started smoking in 1977 and is a ppd smoker. He states he drinks less than 14 drinks per week but used to drink heavier. Past Drug Use History: Marijuana - Past Family History Mother Family Medical History: Diabetes Mellitus, Deep Vein Thrombosis (DVT) Medications and Allergies Home Medications Medication Instructions Recorded Confirmed Type FLUoxetine HCL [PROzac] 20 mg PO DAILY 03/26/15 09/05/17 History Levothyroxine Sodium [Synthroid] 25 mcg PO DAILY 03/26/15 09/05/17 History Apixaban [Eliquis] 5 mg PO BID tab 08/29/17 09/05/17 Rx Cephalexin [Keflex] 500 mg PO Q8HR #30 cap 08/29/17 09/05/17 Rx LORazepam [Ativan] 0.5 mg PO Q8HR PRN #20 tab 08/29/17 09/05/17 Rx Metoprolol Tartrate [Lopressor] 25 mg PO TID #90 tab 08/29/17 09/05/17 Rx Pantoprazole [Protonix] 40 mg PO AC-BRKFST #30 tablet. 08/29/17 09/05/17 Rx HYDROcodone/APAP 5-325MG [[place] 1 tab PO Q6HR PRN 09/05/17 09/05/17 History 5-325] Allergies Allergy/AdvReac Type Severity Reaction Status Date / Time No Known Allergies Allergy Verified 09/05/17 10:04 Surgical - Exam Vital Signs Temp Pulse Resp Pulse Ox 97.0 F L 110 H 20 100 09/05/17 09:34 09/05/17 09:34 09/05/17 09:34 09/05/17 09:34 - General The patient is intubated with mechanical ventilator support. He is not following any verbal commands at this time. He is sedated on Diprivan drip at 45 mcg/kg/m. well developed, well nourished, no distress - Eyes PERRL - ENT normal pinna, normal nares, normal mucosa - Neck No JVD, neck is supple, no lymphadenopathy. 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 Respirations are symmetrical and nonlabored with mechanical ventilator support. Current ventilator settings are as follows: AC 22, TV 400, FiO2 40%, PEEP 5. Oxygen saturations are 100% with the current ventilator settings. - Cardiovascular Irregular rhythm and tachycardic rate. S1 and S2 present, negative for S3, gallop or murmur. Bedside telemetry showing atrial fibrillation heart rate 115. Right antecubital PICC line in place and patent. Left radial A-line intact with good waveform. Bilateral knee-high sequential compression devices in place to his bilateral lower extremities. - Abdomen Abdomen is soft and nondistended. Active bowel sounds to all 4 abdominal quadrants. OG tube in place with vital high-protein to feeding infusing at 56 mL per hour which is goal. Passing flatus. - Genitourinary Beaulieu catheter for accurate I&O. Clear madhavi urine. 1175 mL output in the last 8 hours. - Rectum Deferred - Integumentary Bilateral feet cool to touch. Left great toe with dry flaky skin. No edema present. - Neurologic Patient is currently sedated with Diprivan at 45 g kilogram per minute. Not following any verbal commands appropriately. Results - Labs 09/14/17 05:10 09/14/17 05:10 Abnormal Lab Results - Last 24 Hours (Table) 09/13/17 09/13/17 09/13/17 Range/Units 12:00 12:03 17:04 RBC (4.30-5.90) m/uL Hgb (13.0-17.5) gm/dL Hct (39.0-53.0) % RDW (11.5-15.5) % INR (<1.2) APTT 58.1 H (22.0-30.0) sec ABG Total CO2 (19-24) mmol/L ABG O2 Saturation (94-97) % BUN (9-20) mg/dL Creatinine (0.66-1.25) mg/dL Glucose (74-99) mg/dL POC Glucose (mg/dL) 107 H 114 H (75-99) mg/dL Calcium (8.4-10.2) mg/dL ALT (21-72) U/L Total Protein (6.3-8.2) g/dL Albumin (3.5-5.0) g/dL 09/13/17 09/14/17 09/14/17 Range/Units 23:41 05:07 05:10 RBC (4.30-5.90) m/uL Hgb (13.0-17.5) gm/dL Hct (39.0-53.0) % RDW (11.5-15.5) % INR (<1.2) APTT (22.0-30.0) sec ABG Total CO2 26 H (19-24) mmol/L ABG O2 Saturation 98.7 H (94-97) % BUN 31 H (9-20) mg/dL Creatinine 1.40 H (0.66-1.25) mg/dL Glucose 104 H (74-99) mg/dL POC Glucose (mg/dL) 132 H (75-99) mg/dL Calcium 8.3 L (8.4-10.2) mg/dL ALT 205 H (21-72) U/L Total Protein 5.7 L (6.3-8.2) g/dL Albumin 2.7 L (3.5-5.0) g/dL 09/14/17 09/14/17 09/14/17 Range/Units 05:10 05:10 06:20 RBC 3.37 L (4.30-5.90) m/uL Hgb 9.8 L (13.0-17.5) gm/dL Hct 31.5 L (39.0-53.0) % RDW 16.3 H (11.5-15.5) % INR 1.2 H (<1.2) APTT 52.3 H (22.0-30.0) sec ABG Total CO2 (19-24) mmol/L ABG O2 Saturation (94-97) % BUN (9-20) mg/dL Creatinine (0.66-1.25) mg/dL Glucose (74-99) mg/dL POC Glucose (mg/dL) 100 H (75-99) mg/dL Calcium (8.4-10.2) mg/dL ALT (21-72) U/L Total Protein (6.3-8.2) g/dL Albumin (3.5-5.0) g/dL Microbiology - Last 24 Hours (Table) 09/11/17 16:15 Catheter Tip Culture - Preliminary Catheter Tip 09/11/17 10:12 Blood Culture - Preliminary Blood No Growth after 48 hours 09/11/17 11:32 Gram Stain - Final Sputum Sputum Culture - Final Diabetes panel 09/13/17 09/14/17 Range/Units 15:35 05:10 Sodium 140 (137-145) mmol/L Potassium 4.8 4.4 (3.5-5.1) mmol/L Chloride 107 (98-107) mmol/L Carbon Dioxide 25 (22-30) mmol/L BUN 31 H (9-20) mg/dL Creatinine 1.40 H (0.66-1.25) mg/dL Glucose 104 H (74-99) mg/dL Calcium 8.3 L (8.4-10.2) mg/dL AST 35 (17-59) U/L ALT 205 H (21-72) U/L Alkaline Phosphatase 70 (38-126) U/L Total Protein 5.7 L (6.3-8.2) g/dL Albumin 2.7 L (3.5-5.0) g/dL Calcium panel 09/13/17 09/14/17 Range/Units 15:35 05:10 Calcium 8.3 L (8.4-10.2) mg/dL Ionized Calcium Barbara 4.6 (4.5-5.3) mg/dL Phosphorus 2.5 3.4 (2.5-4.5) mg/dL Albumin 2.7 L (3.5-5.0) g/dL Pituitary panel 09/13/17 09/14/17 Range/Units 15:35 05:10 Sodium 140 (137-145) mmol/L Potassium 4.8 4.4 (3.5-5.1) mmol/L Chloride 107 (98-107) mmol/L Carbon Dioxide 25 (22-30) mmol/L BUN 31 H (9-20) mg/dL Creatinine 1.40 H (0.66-1.25) mg/dL Glucose 104 H (74-99) mg/dL Calcium 8.3 L (8.4-10.2) mg/dL Adrenal panel 09/13/17 09/14/17 Range/Units 15:35 05:10 Sodium 140 (137-145) mmol/L Potassium 4.8 4.4 (3.5-5.1) mmol/L Chloride 107 (98-107) mmol/L Carbon Dioxide 25 (22-30) mmol/L BUN 31 H (9-20) mg/dL Creatinine 1.40 H (0.66-1.25) mg/dL Glucose 104 H (74-99) mg/dL Calcium 8.3 L (8.4-10.2) mg/dL Total Bilirubin 0.3 (0.2-1.3) mg/dL AST 35 (17-59) U/L ALT 205 H (21-72) U/L Alkaline Phosphatase 70 (38-126) U/L Total Protein 5.7 L (6.3-8.2) g/dL Albumin 2.7 L (3.5-5.0) g/dL - Imaging Chest x-ray: report reviewed, image reviewed Additional studies: 2-D echocardiogram report and films reviewed by Dr. Banks. CLARE results reviewed. Assessment and Plan (1) History of coronary artery disease Current Visit: Yes Status: Acute Code(s): Z86.79 - PERSONAL HISTORY OF OTHER DISEASES OF THE CIRCULATORY SYSTEM SNOMED Code(s): 415978229 (2) Hypertension Current Visit: Yes Status: Acute Code(s): I10 - ESSENTIAL (PRIMARY) HYPERTENSION SNOMED Code(s): 57873145 (3) History of bradycardia Current Visit: Yes Status: Acute Code(s): Z86.79 - PERSONAL HISTORY OF OTHER DISEASES OF THE CIRCULATORY SYSTEM SNOMED Code(s): 122972640008742 (4) Chronic kidney disease, stage III (moderate) Current Visit: Yes Status: Acute Code(s): N18.3 - CHRONIC KIDNEY DISEASE, STAGE 3 (MODERATE) SNOMED Code(s): 784797745 (5) Hypothyroidism Current Visit: Yes Status: Acute Code(s): E03.9 - HYPOTHYROIDISM, UNSPECIFIED SNOMED Code(s): 55546018 (6) History of depression Current Visit: Yes Status: Acute Code(s): Z86.59 - PERSONAL HISTORY OF OTHER MENTAL AND BEHAVIORAL DISORDERS SNOMED Code(s): 663597272 (7) COPD (chronic obstructive pulmonary disease) Current Visit: Yes Status: Acute Code(s): J44.9 - CHRONIC OBSTRUCTIVE PULMONARY DISEASE, UNSPECIFIED SNOMED Code(s): 96176795 (8) Acute and chronic respiratory failure with hypoxia Current Visit: Yes Status: Acute Code(s): J96.21 - ACUTE AND CHRONIC RESPIRATORY FAILURE WITH HYPOXIA SNOMED Code(s): 664946104 (9) CAD (coronary artery disease) Current Visit: Yes Status: Acute Code(s): I25.10 - ATHSCL HEART DISEASE OF [place] CORONARY ARTERY W/O ANG PCTRS SNOMED Code(s): 89518108 (10) Peripheral vascular disease Current Visit: Yes Status: Acute Code(s): I73.9 - PERIPHERAL VASCULAR DISEASE, UNSPECIFIED SNOMED Code(s): 416965325 (11) New onset a-fib Current Visit: No Status: Acute Code(s): I48.91 - UNSPECIFIED ATRIAL FIBRILLATION SNOMED Code(s): 66185019 Plan: The patient was seen and examined, his chart and diagnostics were reviewed. Dr. Banks spoke with the patient's family regarding treatment options and care plan. The patient will need a heart catheterization. Continue aspirin, amiodarone, heparin subcu, and beta skylar. DVT and GI prophylaxis. Preoperative testing initiated. We will await the results of the heart catheterization and the preoperative testing with further recommendations to follow. Thank you Dr. Godoy for this consult and we look forward to working with you in the care of this patient. Time with Patient: Greater than 30 <Carl Banks - Last Filed: 09/15/17 15:24> Surgical - Exam Vital Signs Temp Pulse Resp Pulse Ox 97.0 F L 110 H 20 100 09/05/17 09:34 09/05/17 09:34 09/05/17 09:34 09/05/17 09:34 Results - Labs 09/15/17 05:20 09/15/17 05:20 Abnormal Lab Results - Last 24 Hours (Table) 09/14/17 09/15/17 09/15/17 Range/Units 17:35 00:05 05:20 RBC 3.58 L (4.30-5.90) m/uL Hgb 10.1 L (13.0-17.5) gm/dL Hct 34.2 L (39.0-53.0) % MCHC 29.6 L (31.0-37.0) g/dL RDW 16.6 H (11.5-15.5) % APTT (22.0-30.0) sec BUN (9-20) mg/dL Glucose (74-99) mg/dL POC Glucose (mg/dL) 109 H 116 H (75-99) mg/dL AST (17-59) U/L ALT (21-72) U/L Alkaline Phosphatase (38-126) U/L Total Protein (6.3-8.2) g/dL Albumin (3.5-5.0) g/dL LDL Cholesterol, Calc (0-99) mg/dL HDL Cholesterol (40-60) mg/dL TSH (0.465-4.680) mIU/L 09/15/17 09/15/17 09/15/17 Range/Units 05:20 05:20 05:20 RBC (4.30-5.90) m/uL Hgb (13.0-17.5) gm/dL Hct (39.0-53.0) % MCHC (31.0-37.0) g/dL RDW (11.5-15.5) % APTT 71.9 H (22.0-30.0) sec BUN 26 H (9-20) mg/dL Glucose 113 H (74-99) mg/dL POC Glucose (mg/dL) (75-99) mg/dL AST 92 H (17-59) U/L ALT 100 H (21-72) U/L Alkaline Phosphatase 169 H (38-126) U/L Total Protein 5.9 L (6.3-8.2) g/dL Albumin 2.7 L (3.5-5.0) g/dL LDL Cholesterol, Calc 112 H (0-99) mg/dL HDL Cholesterol 39 L (40-60) mg/dL TSH 5.270 H (0.465-4.680) mIU/L Microbiology - Last 24 Hours (Table) 09/11/17 10:12 Blood Culture - Preliminary Blood No Growth after 96 hours 09/14/17 20:31 Nasal Screen MRSA/MSSA (BLAISE) - Preliminary Nasopharyngeal Swab 09/11/17 16:15 Catheter Tip Culture - Final Catheter Tip Diabetes panel 09/15/17 09/15/17 Range/Units 05:20 05:20 Sodium 139 (137-145) mmol/L Potassium 4.0 (3.5-5.1) mmol/L Chloride 107 (98-107) mmol/L Carbon Dioxide 25 (22-30) mmol/L BUN 26 H (9-20) mg/dL Creatinine 1.20 (0.66-1.25) mg/dL Glucose 113 H (74-99) mg/dL Calcium 8.4 (8.4-10.2) mg/dL AST 92 H (17-59) U/L ALT 100 H (21-72) U/L Alkaline Phosphatase 169 H (38-126) U/L Total Protein 5.9 L (6.3-8.2) g/dL Albumin 2.7 L (3.5-5.0) g/dL Triglycerides 89 (<150) mg/dL HDL Cholesterol 39 L (40-60) mg/dL Thyroid panel 09/15/17 Range/Units 05:20 TSH 5.270 H (0.465-4.680) mIU/L Calcium panel 09/15/17 Range/Units 05:20 Calcium 8.4 (8.4-10.2) mg/dL Albumin 2.7 L (3.5-5.0) g/dL Pituitary panel 09/15/17 09/15/17 Range/Units 05:20 05:20 Sodium 139 (137-145) mmol/L Potassium 4.0 (3.5-5.1) mmol/L Chloride 107 (98-107) mmol/L Carbon Dioxide 25 (22-30) mmol/L BUN 26 H (9-20) mg/dL Creatinine 1.20 (0.66-1.25) mg/dL Glucose 113 H (74-99) mg/dL Calcium 8.4 (8.4-10.2) mg/dL TSH 5.270 H (0.465-4.680) mIU/L Adrenal panel 09/15/17 Range/Units 05:20 Sodium 139 (137-145) mmol/L Potassium 4.0 (3.5-5.1) mmol/L Chloride 107 (98-107) mmol/L Carbon Dioxide 25 (22-30) mmol/L BUN 26 H (9-20) mg/dL Creatinine 1.20 (0.66-1.25) mg/dL Glucose 113 H (74-99) mg/dL Calcium 8.4 (8.4-10.2) mg/dL Total Bilirubin 0.9 (0.2-1.3) mg/dL AST 92 H (17-59) U/L ALT 100 H (21-72) U/L Alkaline Phosphatase 169 H (38-126) U/L Total Protein 5.9 L (6.3-8.2) g/dL Albumin 2.7 L (3.5-5.0) g/dL Assessment and Plan Plan: The patient was seen and examined. I agree with the above assessment and plan. The patient is a 62-year-old male who originally presented to the hospital after injuring his toe. He was treated with antibiotics for infection. He returned to the hospital with gangrene of the toe and a localized infection. He was treated with antibiotics for both sepsis and pneumonia. Vascular surgery felt that the toe would auto amputate and there is no need for intervention on their part. Additional testing revealed severe mitral regurgitation. The patient did require intubation secondary to pulmonary insufficiency. Cardiac catheterization performed today reveals nonobstructive coronary disease. The patient does remain in atrial fibrillation on intravenous heparin. The patient will benefit from mitral valve repair on this admission. Ideally we would extubate him first and allow his kidney function to recover prior to proceeding with surgery. His preoperative workup is underway. We will continue to follow along closely.
--- NOTE | 2017-09-14 17:18 | P.GSCN ---
History of Present Illness Consult date: 09/14/17 Reason for Consult: Clearance for Dental Infection Pt presented with a lot of missing teeth, with only teeth #'s 6, 21,22,23, present. Unable to have a panoramic xray due to patient being in the ICU and being intubated. Upon examination, the teeth had no dental caries, no pain on percussion or pain on pressure to buccal vestibules. Teeth show no signs of dental infection. Tooth #23 has a grade 1 to 2 mobility. I would recommend caution during intubation in or out, as tooth can come out due to force. Tooth #23 has a lot of supragingival calculus. This might cause a future infection periodontally. It is recommended that patient seeks dental treatment as soon as stable with surgery. Pt does not need any treatment prior to Heart surgery, and has no present dental infection. Thank you for your kind referral. Past Medical History Past Medical History: Atrial Fibrillation, Coronary Artery Disease (CAD), COPD, GERD/Reflux, Hyperlipidemia, Hypertension, Myocardial Infarction ([place]), Thyroid Disorder, Vascular Disorder Additional Past Medical History / Comment(s): Pt recently admitted to [facility] with atrial fibrillation RVR, L foot swelling /cellulitis/ pain and eosinophilia undetermined etiology/ to follow up with Dr. Winters. Other Hx: Chronic kidney disease stage III, hypothyroid, PAD, diverticular dx, past ETOH abuse. Last Myocardial Infarction Date:: 09/2011 History of Any Multi-Drug Resistant Organisms: None Reported Past Surgical History: Heart Catheterization With Stent Additional Past Surgical History / Comment(s): colonoscopy, abdominal aortogram with bilateral run-offs. Past Anesthesia/Blood Transfusion Reactions: No Reported Reaction Date of Last Stent Placement:: 09/2011 Past Psychological History: Anxiety, Depression Additional Psychological History / Comment(s): Pt resides alone. He uses a cane to ambulate and has a L foot medi shoe. He does not drive. He gets to [facility] with his cousin. Smoking Status: Current every day smoker Past Alcohol Use History: Occasional Additional Past Alcohol Use History / Comment(s): Pt started smoking in 1977 and is a ppd smoker. He states he drinks less than 14 drinks per week but used to drink heavier. Past Drug Use History: Marijuana - Past Family History Mother Family Medical History: Diabetes Mellitus, Deep Vein Thrombosis (DVT) Medications and Allergies Home Medications Medication Instructions Recorded Confirmed Type FLUoxetine HCL [PROzac] 20 mg PO DAILY 03/26/15 09/05/17 History Levothyroxine Sodium [Synthroid] 25 mcg PO DAILY 03/26/15 09/05/17 History Apixaban [Eliquis] 5 mg PO BID tab 08/29/17 09/05/17 Rx Cephalexin [Keflex] 500 mg PO Q8HR #30 cap 08/29/17 09/05/17 Rx LORazepam [Ativan] 0.5 mg PO Q8HR PRN #20 tab 08/29/17 09/05/17 Rx Metoprolol Tartrate [Lopressor] 25 mg PO TID #90 tab 08/29/17 09/05/17 Rx Pantoprazole [Protonix] 40 mg PO AC-BRKFST #30 tablet. 08/29/17 09/05/17 Rx HYDROcodone/APAP 5-325MG [[place] 1 tab PO Q6HR PRN 09/05/17 09/05/17 History 5-325] Allergies Allergy/AdvReac Type Severity Reaction Status Date / Time No Known Allergies Allergy Verified 09/05/17 10:04 Surgical - Exam Vital Signs Temp Pulse Resp Pulse Ox 97.0 F L 110 H 20 100 09/05/17 09:34 09/05/17 09:34 09/05/17 09:34 09/05/17 09:34 Results - Labs 09/14/17 05:10 09/14/17 05:10 Abnormal Lab Results - Last 24 Hours (Table) 09/13/17 09/14/17 09/14/17 Range/Units 23:41 05:07 05:10 RBC (4.30-5.90) m/uL Hgb (13.0-17.5) gm/dL Hct (39.0-53.0) % RDW (11.5-15.5) % INR (<1.2) APTT (22.0-30.0) sec ABG Total CO2 26 H (19-24) mmol/L ABG O2 Saturation 98.7 H (94-97) % BUN 31 H (9-20) mg/dL Creatinine 1.40 H (0.66-1.25) mg/dL Glucose 104 H (74-99) mg/dL POC Glucose (mg/dL) 132 H (75-99) mg/dL Calcium 8.3 L (8.4-10.2) mg/dL ALT 205 H (21-72) U/L Total Protein 5.7 L (6.3-8.2) g/dL Albumin 2.7 L (3.5-5.0) g/dL 09/14/17 09/14/17 09/14/17 Range/Units 05:10 05:10 06:20 RBC 3.37 L (4.30-5.90) m/uL Hgb 9.8 L (13.0-17.5) gm/dL Hct 31.5 L (39.0-53.0) % RDW 16.3 H (11.5-15.5) % INR 1.2 H (<1.2) APTT 52.3 H (22.0-30.0) sec ABG Total CO2 (19-24) mmol/L ABG O2 Saturation (94-97) % BUN (9-20) mg/dL Creatinine (0.66-1.25) mg/dL Glucose (74-99) mg/dL POC Glucose (mg/dL) 100 H (75-99) mg/dL Calcium (8.4-10.2) mg/dL ALT (21-72) U/L Total Protein (6.3-8.2) g/dL Albumin (3.5-5.0) g/dL 09/14/17 Range/Units 11:40 RBC (4.30-5.90) m/uL Hgb (13.0-17.5) gm/dL Hct (39.0-53.0) % RDW (11.5-15.5) % INR (<1.2) APTT (22.0-30.0) sec ABG Total CO2 (19-24) mmol/L ABG O2 Saturation (94-97) % BUN (9-20) mg/dL Creatinine (0.66-1.25) mg/dL Glucose (74-99) mg/dL POC Glucose (mg/dL) 113 H (75-99) mg/dL Calcium (8.4-10.2) mg/dL ALT (21-72) U/L Total Protein (6.3-8.2) g/dL Albumin (3.5-5.0) g/dL Microbiology - Last 24 Hours (Table) 09/11/17 10:12 Blood Culture - Preliminary Blood No Growth after 72 hours 09/11/17 16:15 Catheter Tip Culture - Preliminary Catheter Tip Diabetes panel 09/14/17 Range/Units 05:10 Sodium 140 (137-145) mmol/L Potassium 4.4 (3.5-5.1) mmol/L Chloride 107 (98-107) mmol/L Carbon Dioxide 25 (22-30) mmol/L BUN 31 H (9-20) mg/dL Creatinine 1.40 H (0.66-1.25) mg/dL Glucose 104 H (74-99) mg/dL Calcium 8.3 L (8.4-10.2) mg/dL AST 35 (17-59) U/L ALT 205 H (21-72) U/L Alkaline Phosphatase 70 (38-126) U/L Total Protein 5.7 L (6.3-8.2) g/dL Albumin 2.7 L (3.5-5.0) g/dL Calcium panel 09/14/17 Range/Units 05:10 Calcium 8.3 L (8.4-10.2) mg/dL Phosphorus 3.4 (2.5-4.5) mg/dL Albumin 2.7 L (3.5-5.0) g/dL Pituitary panel 09/14/17 Range/Units 05:10 Sodium 140 (137-145) mmol/L Potassium 4.4 (3.5-5.1) mmol/L Chloride 107 (98-107) mmol/L Carbon Dioxide 25 (22-30) mmol/L BUN 31 H (9-20) mg/dL Creatinine 1.40 H (0.66-1.25) mg/dL Glucose 104 H (74-99) mg/dL Calcium 8.3 L (8.4-10.2) mg/dL Adrenal panel 09/14/17 Range/Units 05:10 Sodium 140 (137-145) mmol/L Potassium 4.4 (3.5-5.1) mmol/L Chloride 107 (98-107) mmol/L Carbon Dioxide 25 (22-30) mmol/L BUN 31 H (9-20) mg/dL Creatinine 1.40 H (0.66-1.25) mg/dL Glucose 104 H (74-99) mg/dL Calcium 8.3 L (8.4-10.2) mg/dL Total Bilirubin 0.3 (0.2-1.3) mg/dL AST 35 (17-59) U/L ALT 205 H (21-72) U/L Alkaline Phosphatase 70 (38-126) U/L Total Protein 5.7 L (6.3-8.2) g/dL Albumin 2.7 L (3.5-5.0) g/dL
[2017-09-14 17:37] LABS: Glucose,Whole Blood 109 mg/dL (75-99)
--- NOTE | 2017-09-14 18:11 | US ---
EXAMINATION TYPE: US carotid duplex BILAT DATE OF EXAM: 09/14/2017 COMPARISON: Prior carotid ultrasound October 16, 2014 CLINICAL HISTORY: Preoperative cardiac surgery. EXAM MEASUREMENTS: RIGHT: Peak Systolic Velocity (PSV) cm/sec ----- Right CCA: 55.9 ----- Right ICA: 52.6 ----- Right ECA: 54.6 ICA/CCA ratio: 0.9 RIGHT: End Diastole cm/sec ----- Right CCA: 7.6 ----- Right ICA: 20.7 ----- Right ECA: 6.4 LEFT: Peak Systolic Velocity (PSV) cm/sec ----- Left CCA: 32.6 ----- Left ICA: 106.4 ----- Left ECA: 66.7 ICA/CCA ratio: 3.3 LEFT: End Diastole cm/sec ----- Left CCA: 10.6 ----- Left ICA: 34.6 ----- Left ECA: 11.1 VERTEBRALS (direction of flow): Right Vertebral: Antegrade Left Vertebral: unable to visualize Rhythm: Arrhythmia ICU patient on vent, technically difficult study. Moderate plaque, elevated velocity in Left ICA. Suboptimal study per technologist. Persistent moderate plaque in right carotid bulb is identified. Th ere is persistent slightly more prominent moderate peripheral plaque at left carotid bulb versus oppo site right side. Velocity measurements and ratios remain within normal limits bilaterally. Arrhythmia once again noted during real-time scanning. IMPRESSION: No significant change from prior ultrasound in the internal carotid arteries. Cardiac ar rhythmia once again noted. Persistent left greater than right moderate plaque with possible hemodynam ically significant plaque in the left difficult to entirely exclude. Normal cephalad Left-sided verte bral artery flow was not clearly identified on current study .
[2017-09-14] MEDS: SODIUM CHLORIDE 0.9% 1,000 ML IV SCH (18:44)
[2017-09-14] MEDS: MUPIROCIN 2% OINT 22 GM TUBE NASAL SCH (21:20)
[2017-09-14] MEDS: HYDROmorphone 0.5 MG/0.5 ML SYRINGE IVP PRN (21:29)
--- NOTE | 2017-09-14 22:21 | PN ---
PROGRESS NOTE DATE OF SERVICE: 09/14/2017 PRESENTING COMPLAINT: Intubated. INTERVAL HISTORY: Patient admitted with infected left toe from recent trauma. He failed outpatient treatment. The patient went into arrhythmia, went into respiratory failure and was intubated. The patient was extubated and then had to be re-intubated. The patient remains on the ventilator, FiO2 40 and a PEEP of 5. The patient has had A. fib. with rapid ventricular rate and pauses. Hence, the patient's amiodarone and Cardizem drip were discontinued earlier. Patient remains on IV heparin, propofol. Some decrease in tracheal secretions. Patient did undergo CLARE, found to have severe MR. Cardiology is planning to do a cardiac catheterization tomorrow. REVIEW OF SYSTEMS: The patient is intubated. CURRENT MEDICATIONS: Reviewed and include: 1. IV heparin and. 2. Propofol drip. 3. The patient's amiodarone and Cardizem drip have been discontinued. 4. The patient is also on IV Zosyn. EXAMINATION: Temperature 97.8, pulse 136, respiration 22, blood pressure 93/64, pulse ox 100% on ventilator. GENERAL APPEARANCE: Lying in bed, intubated. EYES: Pupils equal. Conjunctivae normal. HEENT: External nose, ears normal. Endotracheal tube in place. NECK: JVD unable to assess. Mass not palpable. RESPIRATORY: Effort normal. LUNGS: Decreased breath sounds. CARDIOVASCULAR: Heart sounds regular. No edema. ABDOMEN: Soft, nontender. Liver and spleen not palpable. EXTREMITIES: Infection of the left big toe. NEUROLOGICAL: Pupils are equal. INVESTIGATIONS: White count 9.5, hemoglobin 9.8. Potassium 4.4, BUN 31, creatinine 1.4. ASSESSMENT: 1. Acute big toe cellulitis and wound secondary to trauma with possibly now dry gangrene, expected to auto-amputate, having failed outpatient treatment. 2. Acute hypoxic respiratory failure secondary to sepsis requiring ventilator assistance. The patient was re-intubated. 3. Bilateral pneumonia, suspect gram-negative organism, possibly causing sepsis. 4. Acute pulmonary edema, could be arrhythmia-related. 5. Acute metabolic acidosis. 6. Acute kidney injury secondary to acute tubular necrosis secondary to sepsis with some biochemical improvement. 7. Acute shock liver, biochemical improvement, from hypotension. 8. Persistent atrial fibrillation, uncontrolled. The patient is on Eliquis. The patient's IV amiodarone and Cardizem have been taken off because of pauses. 9. Chronic kidney disease stage 3 from nephrosclerosis with baseline creatinine of 1.3. 10.Acute chronic obstructive pulmonary disease exacerbation in a current smoker. 11.Chronic nicotine dependence in a cigarette smoker. 12.Coronary artery disease, prior history of stent. 13.Hypothyroid. 14.Essential hypertension history. 15.Hyperlipidemia. 16.Peripheral artery disease. 17.Depression, anxiety, not otherwise specified. 18.Severe mitral regurgitation as per transesophageal echocardiogram today. PLAN: Continue medication and treatment plan, including IV heparin, Diprivan. Patient is off amiodarone and Cardizem. Cardiology is planning for a cardiac catheterization tomorrow. Prognosis remains guarded. MMODL / IJN: [id number] /
[2017-09-15 00:07] LABS: Glucose,Whole Blood 116 mg/dL (75-99)
[2017-09-15] MEDS: PIPERACILLIN-TAZOBACTAM 3.375 GM in DEXTROSE/WATER 1 50ML.BAG IVPB SCH ×3 (00:53→15:41)
[2017-09-15] MEDS: METOPROLOL TARTRATE 5 MG/5 ML VIAL IVP SCH ×3 (00:54→18:08)
[2017-09-15] MEDS: INSULIN ASPART 100 UNIT/ML 1 ML 10 ML VIAL SQ SCH ×4 (00:54→18:49)
[2017-09-15] MEDS: DILTIAZEM 125 MG in SODIUM CHLORIDE 0.9% 100 ML IV SCH ×2 (01:36→18:09)
[2017-09-15 01:49] LABS: Hepatitis A Antibody IgM Non-Reactive (Non-Reactive); Hepatitis B Core IgM Non-Reactive (Non-Reactive)
[2017-09-15] MEDS: HYDROmorphone 0.5 MG/0.5 ML SYRINGE IVP PRN ×3 (02:31→17:00)
[2017-09-15] MEDS: IPRATROPIUM-ALBUTEROL 3 ML NEB INHALATION SCH ×6 (03:16→23:06)
[2017-09-15] MEDS: PROPOFOL 1,000 MG in EMPTY BAG 1 BAG IV SCH ×6 (03:20→21:34)
[2017-09-15 04:40] LABS: ABG Base Excess -2.3 mmol/L; ABG HCO3 22 mmol/L (21-25); ABG Oxygen Saturation 96.7 % (94-97); ABG PCO2 35 mmHg (35-45); ABG PH 7.41 (7.35-7.45); ABG PO2 98 mmHg (83-108); ABG TCO2 23 mmol/L (19-24)
[2017-09-15 05:38] LABS: Anisocytosis Slight; HCT 34.2 % (39.0-53.0); HGB 10.1 gm/dL (13.0-17.5); Hypochromasia Marked; MCH 28.3 pg (25.0-35.0); MCHC 29.6 g/dL (31.0-37.0); MCV 95.5 fL (80.0-100.0); Macrocytosis Slight; Mean Platelet Volume 8.1; Platelet Count 312 k/uL (150-450); RBC 3.58 m/uL (4.30-5.90); RDW 16.6 % (11.5-15.5); WBC 7.6 k/uL (3.8-10.6)
[2017-09-15] MEDS: DOPamine DRIP 800 MG in DEXTROSE/WATER 1 500ML.BAG IV SCH (06:02)
[2017-09-15 06:09] LABS: Glucose,Whole Blood 93 mg/dL (75-99)
[2017-09-15] MEDS: LEVOTHYROXINE 25 MCG TAB PO SCH (06:38)
[2017-09-15 07:19] LABS: ALT 100 U/L (21-72); AST 92 U/L (17-59); Albumin 2.7 g/dL (3.5-5.0); Alkaline Phosphatase 169 U/L (38-126); Anion Gap 7 mmol/L; Blood Urea Nitrogen 26 mg/dL (9-20); Calcium 8.4 mg/dL (8.4-10.2); Carbon Dioxide 25 mmol/L (22-30); Chloride 107 mmol/L (98-107); Glucose 113 mg/dL (74-99); Sodium 139 mmol/L (137-145); Total Bilirubin 0.9 mg/dL (0.2-1.3); Total Protein 5.9 g/dL (6.3-8.2)
[2017-09-15] MEDS ORDERED: IV FLUID CONTINUATION 800 ML IV ONE ×2 (07:20)
[2017-09-15] MEDS ORDERED: ASPIRIN 325 MG TAB ONE (07:30)
[2017-09-15] MEDS ORDERED: ASPIRIN 325 MG TAB PEG/G-TUBE ONE (07:30)
--- NOTE | 2017-09-15 07:31 | P.PN ---
Subjective Progress Note Date: 09/15/17 Principal diagnosis: Respiratory failure Progress note dated 09/11/2017 This is a 62-year-old black male who was admitted on September 06. He apparently was initially admitted with a diagnosis of sepsis with a gangrenous toe. He started in the ER went to the general medical floor and 18 was called because of respiratory failure and acidosis. He that reason he was intubated on September 06 and transferred to the ICU. He was extubated initially on September 08 and then reintubated again on September 11. This was today at 4:00 in the morning. The patient's x-ray shows diffuse bilateral infiltrates worse on the right than on the left side. His current ventilator settings include the assist control mode, rate of 12, an FiO2 of 70%, tidal Byam of 500, PEEP of 10. Arterial blood gases show a PaO2 of 88 a PaCO2 of 37 and a pH of 7.36. His current IVs include a saline IV at 20 mL an hour, heparin via weightbase protocol for atrial fibrillation propofol at 35 mics per kilogram per minute and Cordarone at 0.5 mg/m. The patient's x-rays labs medications are all reviewed. Microbiology is all negative. I asked the nurse to resume his tube feeds. Progress note dated September 12 2017 62-year-old black male who was admitted on September 06. He apparently was initially admitted with a diagnosis of sepsis with a gr gangrenous toe. He started in the ER want to the general medical floor and a rapid response was called because of respiratory failure and severe acidosis. He was intubated on September 06 and transferred to the intensive care unit. He was initially extubated on September 08 and then reintubated again on September 11. That was at 4 :00 in the morning. My partner was called. His chest x-ray yesterday showed diffuse bilateral pulmonary infiltrates worse on the right than on the left. We made some changes yesterday. The patient's chest x-ray today is much improved suggesting that he has mostly pulmonary edema/heart failure. In fact, the echocardiogram did reveal evidence of severe mitral regurgitation. The patient clinically is much better today. We are going to have the vascular service surgeon see him about the great toe. Likely, thoracic surgery would not want to do anything if there was active infection. The patient's FiO2 was dropped from 50-40%. In addition, we'll be able to make some significant PEEP changes today.His current vent settings are the assist control mode rate of 22 tidal volume 400 FiO2 40% and PEEP of 13. The PEEP can probably be dropped down from 13-10 later today. Arterial blood gases show a PaO2 of 177 a PaCO2 of 41 and a pH of 7.35. His is consistent with a very mild metabolic acidosis. The patient's on heparin via weightbase protocol, propofol at 45 mics per kilogram per minute dopamine which is currently off started earlier this morning for bradycardia a saline IV at 20 mL an hour and vital high protein at 56 with a goal of 56 mL per hour. Progress note dated 09/13/2017 62-year-old black male who was admitted on September 06. He was initially admitted with a diagnosis of sepsis with a gangrenous toe. He was initially admitted from the ER to the general medical floor and then subsequent to that a rapid response was called because of respiratory failure and severe metabolic acidosis. He was intubated later on September 06 and was transferred to the ICU. He was initially extubated on and then reintubated again early in the morning of September 11 for respiratory failure. His chest x-ray showing waxing waning diffuse bilateral pulmonary infiltrates. These infiltrates, likely represent heart failure, but could also relate to pneumonia/ acute lung injury. The patient's echocardiogram did reveal severe mitral regurgitation. Cardiology is looking into that. Also, we have vascular surgeon looking at the gangrenous toe. The patient's FiO2 was dropped from 50 to 40%. In addition, the PEEP was dropped recently from 13-10 8. Arterial blood gases are reviewed. He is on the assist control mode with a rate of 22. Tidal Byam is 400. Other than that, the patient seems to be doing about the same. I did speak to the infectious disease data warehouse consultant as well as a cardiology consult about this patient. Progress note dated 09/14/2017 62-year-old black male who was admitted back on September 06. He was initially admitted with a diagnosis of sepsis and a gangrenous toe. Vascular surgery saw the patient yesterday and determined that he had dry gangrene and no debridement or amputation was necessary. The patient was initially admitted from the emergency room to the general medical floor and subsequent to that a rapid response team was called because of respiratory failure and severe metabolic acidosis. He was moved he was intubated later on September 06 and was transferred to the ICU. The patient was then initially extubated on September 08 and the reintubated again early in the morning on September for respiratory failure. His pattern has been that of flash pulmonary edema although, acute lung injury/nosocomial pneumonia, could not be excluded. Mostly though, we believe it relates to heart failure from a case of severe mitral regurgitation. The patient underwent transesophageal echocardiogram this morning and was determined to have severe mitral regurgitation and thought to have an ejection fraction of 25%. He is scheduled for heart catheterization on September 15 and the patient will be seen by cardiothoracic surgery. Currently he is on IV heparin via weightbase protocol propofol at 45 mics per kilogram per minute, Cordarone at 0.5 mg/m Cardizem drip at 10 mg an hour saline IV at 20 mL an hour and vital high protein at 56 mL an hour with a goal of 56. The patient's vent settings include the assist control mode rate of 22 tidal volume of 400 FiO2 40% and PEEP of 5. Blood gases show a PaO2 of 103 a PaCO2 of 36 and a pH 7.45. This is consistent with mild respiratory alkalosis. The patient probably could be extubated. But because she is having a heart cath tomorrow, my inclination is to keep monitoring ventilator until then. Progress note dated 09/15/2017 62-year-old black male admitted back on September 06. The patient was initially admitted with a diagnosis of sepsis and a gangrenous toe. Vascular surgery seems to think that the toe represents dry gangrene and no additional debridement or amputation is necessary. The patient initially presented to the emergency room with an into the general medical floor. A rapid response was called. The patient developed respiratory failure and severe metabolic acidosis. He was moved to the ICU and intubated on September 06. He was extubated initially on in the reintubated early in the morning on September 11 for respiratory failure. His pattern has been that of a flash pulmonary edema. The patient also may be having a component of acute lung injury/nosocomial pneumonia. Anyway, the pulmonary edema is likely related mostly to card and myopathy as well as severe mitral regurgitation. The patient had a transesophageal echocardiogram yesterday and is going for cardiac catheterization today. The patient was maintained on mechanical ventilator because he was going for catheterization today. Hopefully, we can get him extubated later today. This depends on what is done. Currently, the patient's on the ventilator with the assist control mode rate of 22 breathing 24 times a minute, tidal volume of 400 FiO2 40% PEEP of 5. Arterial blood gases show a PaO2 of 98 a PaCO2 of 35 and a pH of 7.41. The patient's on a saline IV at KVO heparin is been turned off the Cardizem drip is running at 10 mg an hour and tube feeds are on hold. The patient's chest x-ray reveals some mild fluid overload. All in all though, the patient's much more stable. I have been turned to the family all along the fact, the family member is one of my primary patient to my office. This is the patient's nephew. Objective - Vital Signs Vital signs: Vital Signs Temp 98.5 F 09/15/17 05:00 Pulse 137 H 09/15/17 06:00 Resp 12 09/15/17 06:00 BP 97/70 09/15/17 06:00 Pulse Ox 97 09/15/17 05:00 Intake & Output 09/14/17 09/15/17 09/15/17 18:59 06:59 18:59 Intake Total 7160.832 1952.500 Output Total 955 700 Balance 659.923 365.500 Weight 83.7 kg Intake: IV 353 276 Piperacillin-Tazobactam 3 100 .375 gm In Dextrose/Water 1 50ml.bag @ 12.5 mls/hr IVPB Q8HR AJ Rx#: [id number] Pressure Bag 33 36 Sodium Chloride 0.9% 1, 220 240 000 ml @ 20 mls/hr IV . Q24H AJ Rx#:[id number] Intake, IV Titration 600.923 677.500 Amount Amiodarone 450 mg In 86.91 Dextrose 5% in Water 250 ml @ 0.5 MG/MIN 16.66 mls /hr IV .Q15H1M AJ Rx#: [id number] Diltiazem 125 mg In 137.333 Sodium Chloride 0.9% 100 ml @ 10 MG/HR 10 mls/hr IV .[id number] AJ Rx#: [id number] Heparin Sod,Pork in 0.45% 500 NaCl 25,000 unit In 0.45 % NaCl 1 500ml.bag @ 12 UNITS/KG/HR 18.74 mls/hr IV .Q24H AJ Rx#: [id number] Magnesium Sulfate-D5w Pmx 200 1 gm In Dextrose/Water 1 100ml.bag @ 100 mls/hr IVPB Q1H AJ Rx#: [id number] Propofol 1,000 mg In 176.68 177.500 Empty Bag 1 bag @ Titrate IV .Q0M AJ Rx#: [id number] Tube Feeding 586 112 Other 75 Output: Urine 955 700 Other: Voiding Method Indwelling Catheter Indwelling Catheter ABP, PAP, CO, CI - Last Documented Arterial Blood Pressure 105/61 - Exam No acute distress, currently intubated with an orally placed endotracheal tube and NG tube HEENT examination is grossly unremarkable. Mucous membranes are moist. No oral lesions. Neck supple. Full range of motion. No adenopathy thyromegaly or neck vein distention. Cardiovascular examination reveals irregular rhythm rate. S1-S2 normal. No S3 or S4. No discernible murmur noted. Lungs reveal coarse bilateral breath sounds. Breath sounds are diminished. No crackles. Breath sounds are diminished more on the right side than the left. Abdomen soft bowel sounds are heard. No masses or tenderness. Extremities are intact. No cyanosis clubbing or edema. Skin is without rash or lesion. Neurologic examination could not be performed. - Labs CBC & Chem 7: 09/15/17 05:20 09/15/17 05:20 Labs: Abnormal Lab Results - Last 24 Hours (Table) 09/14/17 09/14/17 09/15/17 Range/Units 11:40 17:35 00:05 RBC (4.30-5.90) m/uL Hgb (13.0-17.5) gm/dL Hct (39.0-53.0) % MCHC (31.0-37.0) g/dL RDW (11.5-15.5) % APTT (22.0-30.0) sec BUN (9-20) mg/dL Glucose (74-99) mg/dL POC Glucose (mg/dL) 113 H 109 H 116 H (75-99) mg/dL AST (17-59) U/L ALT (21-72) U/L Alkaline Phosphatase (38-126) U/L Total Protein (6.3-8.2) g/dL Albumin (3.5-5.0) g/dL LDL Cholesterol, Calc (0-99) mg/dL HDL Cholesterol (40-60) mg/dL TSH (0.465-4.680) mIU/L 09/15/17 09/15/17 09/15/17 Range/Units 05:20 05:20 05:20 RBC 3.58 L (4.30-5.90) m/uL Hgb 10.1 L (13.0-17.5) gm/dL Hct 34.2 L (39.0-53.0) % MCHC 29.6 L (31.0-37.0) g/dL RDW 16.6 H (11.5-15.5) % APTT 71.9 H (22.0-30.0) sec BUN (9-20) mg/dL Glucose (74-99) mg/dL POC Glucose (mg/dL) (75-99) mg/dL AST (17-59) U/L ALT (21-72) U/L Alkaline Phosphatase (38-126) U/L Total Protein (6.3-8.2) g/dL Albumin (3.5-5.0) g/dL LDL Cholesterol, Calc 112 H (0-99) mg/dL HDL Cholesterol 39 L (40-60) mg/dL TSH 5.270 H (0.465-4.680) mIU/L 09/15/17 Range/Units 05:20 RBC (4.30-5.90) m/uL Hgb (13.0-17.5) gm/dL Hct (39.0-53.0) % MCHC (31.0-37.0) g/dL RDW (11.5-15.5) % APTT (22.0-30.0) sec BUN 26 H (9-20) mg/dL Glucose 113 H (74-99) mg/dL POC Glucose (mg/dL) (75-99) mg/dL AST 92 H (17-59) U/L ALT 100 H (21-72) U/L Alkaline Phosphatase 169 H (38-126) U/L Total Protein 5.9 L (6.3-8.2) g/dL Albumin 2.7 L (3.5-5.0) g/dL LDL Cholesterol, Calc (0-99) mg/dL HDL Cholesterol (40-60) mg/dL TSH (0.465-4.680) mIU/L Microbiology - Last 24 Hours (Table) 09/14/17 20:31 Nasal Screen MRSA/MSSA ([facility]) - Preliminary Nasopharyngeal Swab 09/11/17 16:15 Catheter Tip Culture - Final Catheter Tip 09/11/17 10:12 Blood Culture - Preliminary Blood No Growth after 72 hours Assessment and Plan Assessment: Assessment Acute hypoxemic respiratory failure secondary to sepsis/septic shock with a gangrenous toe and underlying cellulitis. Possible bilateral nosocomial pneumonia vs. acute lung injury Atrial fibrillation/RVR Congestive heart failure, secondary to severe mitral regurgitation and cardiomyopathy with an ejection fraction of 25% Intermittent sinus bradycardia History of CAD with previous stent placement History of COPD History of essential hypertension History of depression Peripheral vascular occlusive disease Hypothyroidism Hypertensive nephrosclerosis with chronic kidney disease, stage III Acute cellulitis and dry gangrene of the left big toe, status post debridement Plan: Plan dated 09/11/2017 The patient developed acute respiratory failure early this morning. My partner was called. He was reintubated. I'll make a slight change in the vent settings. We'll go with a low titer volume strategy. We'll drop a tidal volume from 500-400. We'll bump the rate from 16-24. PEEP will be increased from 10-13. I will review the labs x-rays a medications. We'll resume tube feeds. Prognosis is poor. Additional recommendations and suggestions are forthcoming. Plan dated 09/12/2017 Vascular surgery will come in to see the patient today.Labs x-rays a medications are all reviewed. The dopamine is now off. It was started for bradycardia. The patient's FiO2 was dropped from 50-40%. Likely will be able to make some PEEP changes as well. Chest x-ray is dramatically improved. We' ll continue to follow closely. Prognosis is guarded. The mitral valve issue is certainly likely the cause of the patient's flash pulmonary edema. He may even have mitral valve endocarditis. Plan dated 09/13/2017 The patient was seen by vascular surgery this morning. The surgeon feels like this is a dry gangrene and nothing active going on and no additional debridement or amputation is required. We'll let the infectious disease doctor know. The PEEP was dropped from 10 to 8. Gases are reviewed. His P/F ratio is 235 indicating mild ARDS. The chest x-ray is improved. Most of his issues in the lungs related to congestive heart failure because of the severe mitral regurgitation. We'll talk to cardiology about a CLARE as well as thoracic surgery about possible mitral valve repair/replacement. Plan dated 09/14/2017 The patient had his transesophageal echocardiogram today. His ejection fraction was estimated at 25% and he has severe mitral regurgitation. The patient scheduled for heart catheterization tomorrow. The patient will be maintained on the ventilator since then. Blood gases are reasonable. Chest x- rays improved although he did still has a pattern of some mild fluid overload. The patient remains on IV heparin via weightbase protocol propofol Cordarone and Cardizem and his tube feeds. Overall prognosis is poor. We'll continue to watch patient very closely. Additional recommendations and suggestions are forthcoming. Plan dated 09/15/2017 The patient is scheduled for a cardiac catheterization this morning. He had a transesophageal echocardiogram yesterday. His estimated ejection fraction was only 20-25% and he has Severe mitral regurgitation. The patient is maintained on mechanical ventilator. Labs x-rays a medications are all reviewed. No additional recommendations are made. Prognosis is guarded. We'll continue to follow closely. Time with Patient: Greater than 30
[2017-09-15 07:32] LABS: T4, Free (Free Thyroxine) 1.23 ng/dL (0.78-2.19)
[2017-09-15] MEDS ORDERED: LIDOCAINE 2% INJ 20 MG/ML SQ ONE (07:38)
--- NOTE | 2017-09-15 07:43 | XR ---
EXAMINATION TYPE: XR chest 1V portable DATE OF EXAM: 09/15/2017 COMPARISON: 09/14/2017 INDICATION: Tube placement difficulty breathing TECHNIQUE: Single frontal view of the chest is obtained. FINDINGS: The heart size is normal. The pulmonary vasculature is normal. Endotracheal tube is present with the tip above the fátima. Nasogastric tube transverses the thorax t ip in left upper quadrant of the abdomen. Right side PICC line is present with the tip in the region of the distal superior vena cava. Retrocardiac infiltrate may be present with silhouetting the left diaphragm. Mild posterior medial ri ght lower lobe infiltrate may be developing. Clinical correlation is recommended. IMPRESSION: 1. Lines and catheters discussed above. 2. Retrocardiac and possible posterior medial right lower lobe infiltrate developing.
[2017-09-15] MEDS ORDERED: METOPROLOL TARTRATE 5 MG/5 ML VIAL IVP ONE ×3 (07:48→07:50)
[2017-09-15] MEDS ORDERED: IODIXANOL 320 MG/ML 100 ML INTRAARTER ONE (07:59)
[2017-09-15] MEDS ORDERED: RX INFO: IV CONTRAST WAS GIVEN 1 EACH MISC MISCELLANE PRN (08:04)
[2017-09-15] MEDS ORDERED: SODIUM CHLORIDE 0.9% 1,000 ML IV SCH (08:15)
--- NOTE | 2017-09-15 08:46 | CC ---
CARDIAC CATHETERIZATION REPORT INDICATION: Severe mitral regurgitation with pulmonary edema. PROCEDURE NOTE: After obtaining informed consent, left heart catheterization, coronary angiogram are performed via the right femoral artery using standard Felicitas catheters. The patient is critically ill, intubated on vent, in atrial fibrillation with rapid ventricular rate, but tolerated the procedure fairly well. We gave him a dose of IV Lopressor to better control his heart rate and increase the dose of IV Cardizem. FINDINGS: 1. HEMODYNAMICS: Left ventricular end-diastolic pressure is 16 mm. There is no significant gradient across aortic valve. 2. LEFT VENTRICULOGRAM: Left ventriculogram was performed in VICTOR position shows a dilated left ventricle with an ejection fraction of around 50% to 55% with severe mitral regurgitation. Left atrium appears enlarged. 3. ANGIOGRAPHIC DATA:. LEFT MAIN CORONARY ARTERY: Left main coronary artery is a normal-sized vessel and is free of stenosis. Divides into left anterior descending coronary artery and circumflex coronary artery. LAD: The mid LAD was previously stented and the stent is patent. Circumflex coronary artery and its branches are free of significant stenosis. Right coronary artery is a large dominant vessel and is free of stenosis. CONCLUSIONS: 1. Patent stent within the left anterior descending artery. 2. Three plus mitral regurgitation. 3. Ejection fraction of around 55%. PLAN: We will consult cardiothoracic surgeon for mitral valve repair or replacement. The patient received deep sedation. Total sedation time was 17 minutes. MMYUNL / IJN: [id number] /
[2017-09-15] MEDS: AMIODARONE 450 MG in DEXTROSE 5% IN WATER 250 ML IV SCH ×2 (08:54)
[2017-09-15] MEDS: PANTOPRAZOLE 40 MG TABLET PO SCH (08:57)
[2017-09-15] MEDS: FLUoxetine HCL 20 MG CAP PO SCH (08:58)
[2017-09-15] MEDS: ASPIRIN 81 MG PO SCH (08:58)
[2017-09-15] MEDS: CHLORHEXIDINE GLUCONATE 15 ML CUP MUCOUS MEM SCH ×2 (08:58→21:06)
[2017-09-15] MEDS: NICOTINE 21MG/24HR PATCH TRANSDERM SCH (08:58)
[2017-09-15] MEDS: MUPIROCIN 2% OINT 22 GM TUBE NASAL SCH ×2 (08:59→21:06)
--- NOTE | 2017-09-15 09:01 | ECHOT ---
TRANSESOPHAGEAL ECHOCARDIOGRAM INDICATION: Mitral regurgitation with pulmonary edema. PROCEDURE: After obtaining informed consent, transesophageal echocardiogram was performed in left lateral position using an Omniplane probe. Local and IV sedation were obtained. The patient tolerated the procedure well. He was in atrial fibrillation, intubated, vented and sedated. Total sedation time was over 15 minute. FINDINGS: 1. MITRAL VALVE: There is partial flail of the anterior mitral leaflet with severe posteriorly directed mitral regurgitation. 2. LEFT ATRIUM: Left atrium appears enlarged. 3. Right atrium and right ventricle seen normal limits. 4. Left ventricle appears dilated with diffuse global hypokinesis with moderate LV systolic dysfunction with an ejection fraction of around 40%. 5. Aortic valve is a 3-leaflet valve. There is no evidence of high-grade stenosis. There is trace aortic regurgitation noted. 6. Tricuspid valve shows mild tricuspid regurgitation. There is no evidence of left to right shunt by color-flow Doppler or [id number] shunt by agitated saline contrast study. CONCLUSIONS: 1. Severe mitral regurgitation secondary to partial flail of the anterior mitral leaflet. 2. Moderate left ventricular systolic dysfunction with diffuse global hypokinesis. MMODL / IJN: [id number] /
[2017-09-15] MEDS: SENNOSIDES 8.6 MG TAB PO SCH (10:14)
[2017-09-15 12:17] LABS: Glucose,Whole Blood 79 mg/dL (75-99)
[2017-09-15] MEDS: ACETAMINOPHEN TAB 500 MG TAB PO PRN (12:28)
[2017-09-15 12:58] LABS: Appearance,Urine Clear (Clear); Bilirubin,Urine Negative (Negative); Blood,Urine Negative (Negative); Color,Urine Light Yellow; Glucose,Urine (UA) Negative (Negative); Ketones,Urine Negative (Negative); Leukocyte Esterase,Urine Negative (Negative); PH, Urine 5.5 (5.0-8.0); Protein,Urine Negative (Negative); Urobilinogen,Urine <2.0 mg/dL (<2.0)
[2017-09-15] MEDS: SODIUM CHLORIDE 0.9% 1,000 ML IV SCH (13:38)
--- NOTE | 2017-09-15 14:40 | PN ---
PROGRESS NOTE DATE OF SERVICE: 09/15/2017 REASON FOR FOLLOWUP: Possible pneumonia, left foot wound cellulitis. The patient did spike a fever of 101.4 this morning. The patient has been hemodynamically stable and not on any pressor support. FiO2 is stable. He has been tolerating his tube feeds. Currently put on hold with a plan for possible extubation. He is status post cardiac cath with no significant coronary artery disease. PHYSICAL EXAMINATION: Blood pressure 113/77 with a pulse of 104, temperature 101.2. He is 100% on 40% FiO2. General description is a middle-aged male lying in bed, in no distress. RESPIRATORY SYSTEM: Unlabored breathing, clear to auscultation anteriorly. HEART: S1, S2. Regular rate and rhythm. ABDOMEN: Soft, there is no tenderness. Left foot first and second toe some discoloration, but no redness or any drainage. LABS: Hemoglobin is 10.1, white count 7.6 with a BUN of 26, creatinine 1.20. Blood cultures and nasal screen have been so far negative. DIAGNOSTIC IMPRESSION AND PLAN: Patient with a new fever, in a patient; however, who is status post cardiac cath with no coronary artery disease with severe mitral regurgitation and need for the mitral valve repair/replacement. For the new fever, I will repeat blood cultures, UA and cultures. Patient is on Zosyn which will be continued for now, adjusting it further based on the clinical response as well as culture. Continue supportive care. MMODL / IJN: [id number] /
--- NOTE | 2017-09-15 14:58 | PN ---
PROGRESS NOTE Patient is seen for followup for acute kidney injury. His renal function has improved. Patient remains on the vent. He is noticed to have severe tricuspid regurgitation. The patient has been evaluated by cardiothoracic surgery. The patient has had 2 episodes of pulmonary edema requiring intubation. Patient remains on the vent. He is awake. He just had a cardiac catheterization with no evidence of significant coronary artery disease. Blood pressure is 104/67, heart rate about 130 per minute. Patient is afebrile. Examination of the heart: S1, S2. Examination lungs: Bilateral breath sounds are heard. Abdomen is soft. Examination lower extremity shows no significant edema. There is dry gangrene noted on the left 1st and 2nd toes. LABS: Sodium 139, potassium 4.0, BUN 26, serum creatinine 1.2, hemoglobin 10.1 g/dL. ASSESSMENT: 1. Acute kidney injury, currently nonoliguric and significantly improved. UA is completely benign. The patient is status post cardiac catheterization. We can discontinue the IV fluids 4 hours after the procedure. 2. Recurrent pulmonary edema, currently on the vent. The patient has diuresed fairly well. There was evidence of possible right renal artery stenosis. We will hold off on the renal angiogram for now. Await input from Cardiothoracic surgery. PLAN: Discontinue IV fluids about 4 hours after the procedure. Repeat labs in a.m. MMODL / IJN: [id number] /
--- NOTE | 2017-09-15 16:08 | P.PN ---
Subjective Progress Note Date: 09/15/17 Principal diagnosis: Severe mitral valve regurgitation. Previous history of chronic persistent atrial fibrillation on March for anticoagulation, depression, peripheral artery disease, chronic nicotine dependence, chronic kidney disease stage III, hypertension, coronary artery disease with previous stent placement, GERD, and hypothyroidism. This 62-year-old gentleman presented to [facility] on 09/[facility]2017 with complaints of left foot pain and swelling, mainly to his left great toe after trauma previously. he was admitted for further treatment and evaluation. Subsequently he became unresponsive, bradycardic, and hypotensive. He was quickly intubated and taken to the intensive care unit for hemodynamic monitoring. He developed a lactic acidosis. In addition he developed atrial fibrillation. He was extubated, placed on BiPAP, and subsequently reintubated a few days later. A 2-D echocardiogram was completed which demonstrated normal left ventricular function with an ejection fraction between 55 and 60%, moderate aortic insufficiency, severe mitral regurgitation, mild tricuspid regurgitation. He then had a bedside transesophageal echocardiogram which demonstrated severe mitral valve regurgitation with a flail anterior leaflet, mild aortic insufficiency and severely impaired left ventricular function with an ejection fraction of 30-35%.left heart catheterization was performed today with no significant coronary stenosis. The patient's currently laying in bed in no acute distress, continues with mechanical ventilation but does open his eyes and follows commands. Objective - Vital Signs Vital signs: Vital Signs Temp 100.6 F H 09/15/17 14:00 Pulse 129 H 09/15/17 15:00 Resp 22 09/15/17 15:00 BP 113/77 09/15/17 12:00 Pulse Ox 100 09/15/17 15:00 Intake & Output 09/14/17 09/15/17 09/15/17 18:59 06:59 18:59 Intake Total 2129.207 0240.500 1054.453 Output Total 340 364 5748 Balance 659.923 365.500 -195.547 Weight 83.7 kg 89.4 kg Intake: IV 353 276 318.9 Piperacillin-Tazobactam 3 100 50 .375 gm In Dextrose/Water 1 50ml.bag @ 12.5 mls/hr IVPB Q8HR AJ Rx#: [id number] Pressure Bag 33 36 27 Sodium Chloride 0.9% 1, 220 240 120 000 ml @ 20 mls/hr IV . Q24H AJ Rx#:[id number] Intake, IV Titration 600.923 677.500 735.553 Amount Amiodarone 450 mg In 86.91 Dextrose 5% in Water 250 ml @ 0.5 MG/MIN 16.66 mls /hr IV .Q15H1M AJ Rx#: [id number] Diltiazem 125 mg In 137.333 Sodium Chloride 0.9% 100 ml @ 10 MG/HR 10 mls/hr IV .[id number] AJ Rx#: [id number] Diltiazem 125 mg In 52 Sodium Chloride 0.9% 100 ml @ 5 MG/HR 5 mls/hr IV .Q24H AJ Rx#:[id number] Heparin Sod,Pork in 0.45% 500 259.118 NaCl 25,000 unit In 0.45 % NaCl 1 500ml.bag @ 12 UNITS/KG/HR 18.74 mls/hr IV .Q24H AJ Rx#: [id number] Magnesium Sulfate-D5w Pmx 200 1 gm In Dextrose/Water 1 100ml.bag @ 100 mls/hr IVPB Q1H AJ Rx#: [id number] Propofol 1,000 mg In 176.68 177.500 199.435 Empty Bag 1 bag @ Titrate IV .Q0M AJ Rx#: [id number] Sodium Chloride 0.9% 1, 225 000 ml @ 75 mls/hr IV . [id number] AJ Rx#:[id number] Tube Feeding 586 112 Other 75 Output: Urine 889 880 0857 Other: Voiding Method Indwelling Catheter Indwelling Catheter Indwelling Catheter ABP, PAP, CO, CI - Last Documented Arterial Blood Pressure 85/63 - Constitutional General appearance: Present: cooperative, no acute distress - Respiratory Details: Lungs sounds diminished with coarse breath sounds bilaterally. Respirations even, nonlabored on mechanical ventilation. Current ventilator settings FiO2 40 %, tidal volume 400, respiratory rate 22, PEEP 5. 8.0 ET tube present, 24 at the lip. - Cardiovascular Details: S1, S2 present. Irregular, tachycardia rate and rhythm, atrial fibrillation on telemetry. Doppler lower extremity pulses. No calf pain or tenderness noted. Left radial arterial line, right brachial PICC line present. SCDs present. - Gastrointestinal Gastrointestinal Comment(s): Abdomen soft, nontender, and nondistended. Active bowel sounds 4 quadrants. OG tube present, clamped. - Genitourinary Genitourinary Comment(s): Beaulieu present draining clear yellow urine. Urine output 50-75 mL per hour. - Neurologic Neurologic Comment(s): Currently on propofol for sedation but does open eyes and follows commands. - Musculoskeletal Musculoskeletal: Present: generalized weakness - Allied health notes Allied health notes reviewed: nursing - Labs CBC & Chem 7: 09/15/17 05:20 09/15/17 05:20 Labs: Abnormal Lab Results - Last 24 Hours (Table) 09/14/17 09/15/17 09/15/17 Range/Units 17:35 00:05 05:20 RBC 3.58 L (4.30-5.90) m/uL Hgb 10.1 L (13.0-17.5) gm/dL Hct 34.2 L (39.0-53.0) % MCHC 29.6 L (31.0-37.0) g/dL RDW 16.6 H (11.5-15.5) % APTT (22.0-30.0) sec BUN (9-20) mg/dL Glucose (74-99) mg/dL POC Glucose (mg/dL) 109 H 116 H (75-99) mg/dL AST (17-59) U/L ALT (21-72) U/L Alkaline Phosphatase (38-126) U/L Total Protein (6.3-8.2) g/dL Albumin (3.5-5.0) g/dL LDL Cholesterol, Calc (0-99) mg/dL HDL Cholesterol (40-60) mg/dL TSH (0.465-4.680) mIU/L 09/15/17 09/15/17 09/15/17 Range/Units 05:20 05:20 05:20 RBC (4.30-5.90) m/uL Hgb (13.0-17.5) gm/dL Hct (39.0-53.0) % MCHC (31.0-37.0) g/dL RDW (11.5-15.5) % APTT 71.9 H (22.0-30.0) sec BUN 26 H (9-20) mg/dL Glucose 113 H (74-99) mg/dL POC Glucose (mg/dL) (75-99) mg/dL AST 92 H (17-59) U/L ALT 100 H (21-72) U/L Alkaline Phosphatase 169 H (38-126) U/L Total Protein 5.9 L (6.3-8.2) g/dL Albumin 2.7 L (3.5-5.0) g/dL LDL Cholesterol, Calc 112 H (0-99) mg/dL HDL Cholesterol 39 L (40-60) mg/dL TSH 5.270 H (0.465-4.680) mIU/L Microbiology - Last 24 Hours (Table) 09/11/17 10:12 Blood Culture - Preliminary Blood No Growth after 96 hours 09/14/17 20:31 Nasal Screen MRSA/MSSA ([facility]LAISE) - Preliminary Nasopharyngeal Swab 09/11/17 16:15 Catheter Tip Culture - Final Catheter Tip - Imaging and Cardiology Chest x-ray: report reviewed, image reviewed Assessment and Plan (1) Acute and chronic respiratory failure with hypoxia Current Visit: Yes Status: Acute Code(s): J96.21 - ACUTE AND CHRONIC RESPIRATORY FAILURE WITH HYPOXIA SNOMED Code(s): 056883287 (2) COPD (chronic obstructive pulmonary disease) Current Visit: Yes Status: Chronic Code(s): J44.9 - CHRONIC OBSTRUCTIVE PULMONARY DISEASE, UNSPECIFIED SNOMED Code(s): 00945780 (3) Chronic kidney disease, stage III (moderate) Current Visit: Yes Status: Chronic Code(s): N18.3 - CHRONIC KIDNEY DISEASE, STAGE 3 (MODERATE) SNOMED Code(s): 666657392 (4) Gangrenous toe Current Visit: Yes Status: Chronic Code(s): I96 - GANGRENE, NOT ELSEWHERE CLASSIFIED SNOMED Code(s): 298248580 (5) History of bradycardia Current Visit: No Status: Resolved Code(s): Z86.79 - PERSONAL HISTORY OF OTHER DISEASES OF THE CIRCULATORY SYSTEM SNOMED Code(s): 632724294578732 (6) History of coronary artery disease Current Visit: No Status: Resolved Code(s): Z86.79 - PERSONAL HISTORY OF OTHER DISEASES OF THE CIRCULATORY SYSTEM SNOMED Code(s): 362352504 (7) History of depression Current Visit: Yes Status: Chronic Code(s): Z86.59 - PERSONAL HISTORY OF OTHER MENTAL AND BEHAVIORAL DISORDERS SNOMED Code(s): 240610538 (8) Hypertension Current Visit: Yes Status: Chronic Code(s): I10 - ESSENTIAL (PRIMARY) HYPERTENSION SNOMED Code(s): 23242265 (9) Hypothyroidism Current Visit: Yes Status: Chronic Code(s): E03.9 - HYPOTHYROIDISM, UNSPECIFIED SNOMED Code(s): 21027089 (10) Peripheral vascular disease Current Visit: Yes Status: Chronic Code(s): I73.9 - PERIPHERAL VASCULAR DISEASE, UNSPECIFIED SNOMED Code(s): 673342017 (11) New onset a-fib Current Visit: Yes Status: Acute Code(s): I48.91 - UNSPECIFIED ATRIAL FIBRILLATION SNOMED Code(s): 45228536 Plan: 1. Plan is for mitral valve repair this admission, likely middle to end of next week. 2. Wean O2 as tolerated, ventilator management per pulmonology. Would prefer patient be extubated for a period time before surgery. 3. Continue heparin drip, Cardizem drip, amiodarone drip, aspirin, beta skylar. 4. Antibiotics, bronchodilators per pulmonology. 5. Avoid nephrotoxic agents. 6. Preoperative teaching reinforced with patient's cousin who is at bedside. 7. Preoperative testing reviewed as results become available. 8. Patient has received dental clearance for valve surgery. 9. More recommendations to follow. Time with Patient: Greater than 30
--- NOTE | 2017-09-15 16:18 | P.PN ---
Progress Note - Text Progress Note Date: 09/15/17 DATE OF SERVICE: 09/15/2017 PRESENTING COMPLAINT: Intubated HISTORY OF PRESENT ILLNESS: 62-year-old male who was admitted with an infected left toe from recent trauma. Failed outpatient treatment. When internal arrhythmia, then went into respiratory failure and was intubated. Was extubated and had to be reintubated. Remains on the ventilator FiO2 of 40 and a PEEP of 5. Currently in atrial fibrillation with rapid ventricular rate and pauses. Remains on amiodarone and Cardizem drip as well as IV heparin and propofol. Had a CLARE on 09/14/2017 and found to have severe mitral regurgitation. INTERVAL HISTORY: 09/15/2017: Lying in bed awake intubated, status post catheterization in which his LAD has a stent that is patent, circumflex is free of significant stenosis of right coronary artery is dominant vessel and free of stenosis. Has 3+ mitral regurgitation, await input from cardiothoracic surgery regarding repair/replace mitral valve. Remains in the ICU on propofol, amiodarone drip, Cardizem drip, may extubate patient later today if there is no immediate surgical intervention for the mitral valve. REVIEW OF SYSTEMS: Unable to assess due to patient condition CURRENT MEDICATIONS Acetaminophen, DuoNeb, amiodarone drip, aspirin, Peridex, diltiazem drip, Prozac , heparin drip, insulin sliding scale, Synthroid, Lopressor, nicotine patch, Bactroban ointment, Protonix, Zosyn, senna, 0.9% sodium chloride at 20 mL an hour. PHYSICAL EXAM VITAL SIGNS: Temperature 101.1, pulse 130, respiratory rate 22, blood pressure 104/67, oxygen saturation 100% on FiO2 40% mechanical ventilation. GENERAL APPEARANCE: Lying in bed, awake not in distress. HENT: Normocephalic, JVD not raised. Mass not palpable. Oral cavity ET tube and orogastric tube in placel, external appearance of ears and nose normal, EYES:Pupils equal. Conjunctiva normal. RESPIRATORY: Respiratory effort normal. Lungs clear to auscultation. CARDIOVASCULAR: Irregular rhythm No edema. ABDOMEN: Soft. Liver and spleen not palpable. No tenderness. No mass palpable. PSYCHIATRY: Alert and oriented x3. Mood and affect normal. EXTREMITIES: Infection of the left big toe INTEGUMENT: Right radial arterial line in place. Right femoral groin site clean dry and intact, no bleeding or hematoma INVESTIGATIONS: LABS: Hemoglobin 10.1, BUN 26, creatinine 1.20, AST 92, ALTs 100, alk phos 169, triglycerides 89, TSH 5.20, free T4 1.23 Cardiac catheterization: LAD stented with this patent stent, circumflex free of significant stenosis, right coronary artery is large dominant vessel free of stenosis. Nasopharyngeal swab negative Catheter tip: Negative after 48 hours Sputum culture: No growth after 48 hours Blood culture: No growth after 144 hours ASSESSMENT: -Acute great toe cellulitis and wound secondary to trauma with possible dry gangrene, expected to auto amputate, having failed outpatient treatment. -Acute hypoxic respiratory failure secondary to sepsis requiring ventilator assistance. Patient remains intubated. -Bilateral pneumonia, suspect gram-negative organism, possibly causing sepsis. -Acute pulmonary edema, could be arrhythmia related. -Acute metabolic acidosis. -Acute kidney injury secondary to acute tubal necrosis secondary to sepsis with some biochemical improvement. -Acute shock liver, biochemical improvement, from hypotension. -Persistent atrial fibrillation, uncontrolled patient is on a heparin drip is on hold for his cardiac catheterization.Amiodarone and Cardizem were reinitiated -Chronic kidney disease stage III from nephrosclerosis with a baseline creatinine of 1.3. -Acute chronic obstructive pulmonate disease exacerbation in a current smoker. -Chronic nicotine dependence in a cigarette smoker. -Coronary artery disease, prior history of stent. -Hypothyroidism. -Essential hypertension, history. -Hyperlipidemia. -Peripheral artery disease. -Depression, anxiety, not otherwise specified. -Severe mitral regurgitation as per transesophageal echocardiogram -Status post cardiac catheterization with patent stent to the LAD, circumflex free of significant stenosis right coronary artery is free of stenosis. PLAN: Patient remains on IV amiodarone and Cardizem per cardiology, IV heparin was on hold until noon due to cardiac catheterization. We'll reinitiate. Await additional input from cardiothoracic surgery to determine if repair replacement of mitral valve will be done. ICU team to consider extubation if mitral valve repair is not imminent. INSTRUMENT REPAIR SPECIALIST statement: Patient was seen and examined by nurse practitioner Xiao Glass and all elements of the case discussed with attending Dr. Alston
[2017-09-15 16:47] LABS: ABG Base Excess -1.5 mmol/L; ABG HCO3 23 mmol/L (21-25); ABG Oxygen Saturation 94.3 % (94-97); ABG PCO2 37 mmHg (35-45); ABG PH 7.41 (7.35-7.45); ABG PO2 74 mmHg (83-108); ABG TCO2 24 mmol/L (19-24)
[2017-09-15] MEDS: ONDANSETRON 4 MG/2 ML VIAL IVP PRN (16:47)
[2017-09-15 18:12] LABS: Glucose,Whole Blood 91 mg/dL (75-99)
--- NOTE | 2017-09-15 22:46 | PN ---
PROGRESS NOTE DATE OF SERVICE: 09/15/2017 ATTENDING NOTE: The patient seen and examined by me. I discussed with my nurse practitioner, Ms. Montedidijung. The patient is in the ICU on the vent, FiO2 of 48, PEEP of 5. Remains in A. fib., uncontrolled. The patient is put back on IV amiodarone and Cardizem per Cardiology. Did undergo a cardiac cath that showed a patent LAD stent. Cardiothoracic team was consulted. EXAMINATION: LUNGS: Decreased breath sounds. HEART: Sounds irregular. The patient is more awake. INVESTIGATIONS: White count 7.6, hemoglobin 10.1, potassium 4.0, creatinine 1.20. ASSESSMENT: 1. Left dry gangrenous toe. 2. Persistent atrial fibrillation. 3. Severe mitral regurgitation on cardiac catheterization. 4. Patent left anterior descending stent on cardiac catheterization. PLAN: Continue current medication and treatment plan, including antibiotics. Cardiothoracic was consulted. The patient remains on IV heparin and IV Zosyn. Follow. MMODL / IJN: [id number] /
[2017-09-16] MEDS: PIPERACILLIN-TAZOBACTAM 3.375 GM in DEXTROSE/WATER 1 50ML.BAG IVPB SCH ×4 (00:15→23:07)
[2017-09-16 00:51] LABS: Glucose,Whole Blood 82 mg/dL (75-99)
[2017-09-16] MEDS: AMIODARONE 450 MG in DEXTROSE 5% IN WATER 250 ML IV SCH ×4 (01:15→13:00)
[2017-09-16] MEDS: INSULIN ASPART 100 UNIT/ML 1 ML 10 ML VIAL SQ SCH ×4 (01:16→19:41)
[2017-09-16] MEDS: METOPROLOL TARTRATE 5 MG/5 ML VIAL IVP SCH ×4 (01:16→23:08)
[2017-09-16] MEDS: HEPARIN SOD,PORK IN 0.45% NACL 25,000 UNIT in 0.45% NACL 1 500ML.BAG IV SCH ×2 (01:17→17:36)
[2017-09-16] MEDS: PROPOFOL 1,000 MG in EMPTY BAG 1 BAG IV SCH ×2 (02:08→06:42)
[2017-09-16] MEDS: IPRATROPIUM-ALBUTEROL 3 ML NEB INHALATION SCH ×6 (03:05→23:18)
[2017-09-16 05:01] LABS: ABG Base Excess -0.5 mmol/L; ABG HCO3 23 mmol/L (21-25); ABG Oxygen Saturation 99.6 % (94-97); ABG PCO2 33 mmHg (35-45); ABG PH 7.46 (7.35-7.45); ABG PO2 145 mmHg (83-108); ABG TCO2 24 mmol/L (19-24)
[2017-09-16 05:45] LABS: Anisocytosis Slight; HCT 36.5 % (39.0-53.0); HGB 10.2 gm/dL (13.0-17.5); Hypochromasia Marked; MCH 27.3 pg (25.0-35.0); MCV 97.5 fL (80.0-100.0); Macrocytosis Slight; Mean Platelet Volume 8.1; Platelet Count 290 k/uL (150-450); RBC 3.74 m/uL (4.30-5.90); RDW 16.6 % (11.5-15.5)
[2017-09-16] MEDS: LEVOTHYROXINE 25 MCG TAB PO SCH (06:16)
[2017-09-16] MEDS: PANTOPRAZOLE 40 MG TABLET PO SCH (06:17)
[2017-09-16 06:21] LABS: Anion Gap 10 mmol/L; Blood Urea Nitrogen 22 mg/dL (9-20); Calcium 8.9 mg/dL (8.4-10.2); Carbon Dioxide 21 mmol/L (22-30); Chloride 106 mmol/L (98-107); Glucose 91 mg/dL (74-99); Phosphorus 3.9 mg/dL (2.5-4.5); Potassium 4.3 mmol/L (3.5-5.1); Sodium 137 mmol/L (137-145)
--- NOTE | 2017-09-16 07:25 | XR ---
EXAMINATION TYPE: XR chest 1V portable DATE OF EXAM: 09/16/2017 HISTORY: Tube placement. REFERENCE: Previous study dated 09/15/2017. FINDINGS: The patient is ET tube and NG tube remain in place, unchanged in appearance. There continue s to be left basilar airspace disease. There is worsening opacity in the right lung base. Heart size is upper limits of normal. Both CP angles have been excluded from this study. IMPRESSION: 1. BORDERLINE CARDIOMEGALY. 2. BIBASILAR AIRSPACE DISEASE, WORSENING ON THE RIGHT.
[2017-09-16] MEDS: DILTIAZEM 125 MG in SODIUM CHLORIDE 0.9% 100 ML IV SCH (08:10)
--- NOTE | 2017-09-16 08:38 | P.PN ---
Subjective Progress Note Date: 09/16/17 Principal diagnosis: Severe mitral valve regurgitation. Previous history of chronic persistent atrial fibrillation on March for anticoagulation, depression, peripheral artery disease, chronic nicotine dependence, chronic kidney disease stage III, hypertension, coronary artery disease with previous stent placement, GERD, and hypothyroidism. This 62-year-old gentleman presented to [facility] on 09/05/2017 with complaints of left foot pain and swelling, mainly to his left great toe after previous trauma. He was admitted for further treatment and evaluation. Subsequently he became unresponsive, bradycardic, and hypotensive. He was quickly intubated and taken to the intensive care unit for hemodynamic monitoring. He developed a lactic acidosis. In addition he developed atrial fibrillation. He was extubated, placed on BiPAP, and subsequently reintubated a few days later. A 2-D echocardiogram was completed which demonstrated normal left ventricular function with an ejection fraction between 55-60%, moderate aortic insufficiency, severe mitral regurgitation, mild tricuspid regurgitation. He then had a bedside transesophageal echocardiogram which demonstrated severe mitral valve regurgitation with a flail anterior leaflet, mild aortic insufficiency and severely impaired left ventricular function with an ejection fraction of 30-35%. Left heart catheterization was performed yesterday with no significant coronary stenosis. Cardiothoracic surgery was consulted for surgical repair of the patient's mitral valve. The patient's currently laying in bed in no acute distress, remains intubated and sedated. Apparently weaning trial was tried last night in anticipation of extubation, however patient failed his weaning trial. Objective - Vital Signs Vital signs: Vital Signs Temp 99.2 F 09/16/17 08:00 Pulse 111 H 09/16/17 08:19 Resp 22 09/16/17 08:00 BP 83/53 09/16/17 08:00 Pulse Ox 100 09/16/17 07:00 Intake & Output 09/15/17 09/16/17 09/16/17 18:59 06:59 18:59 Intake Total 9252.031 9269.743 158.833 Output Total 1575 1150 160 Balance -307.982 215.743 -1.167 Weight 89.4 kg Intake: IV 437.9 349 73 Piperacillin-Tazobactam 3 100 50 50 .375 gm In Dextrose/Water 1 50ml.bag @ 12.5 mls/hr IVPB Q8HR [facility] Rx#: [id number] Pressure Bag 36 39 3 Sodium Chloride 0.9% 1, 180 260 20 000 ml @ 20 mls/hr IV . Q24H [facility] Rx#:[id number] Intake, IV Titration 829.118 986.743 45.833 Amount Amiodarone 450 mg In 250 Dextrose 5% in Water 250 ml @ 0.5 MG/MIN 16.66 mls /hr IV .Q15H1M [facility] Rx#: [id number] Diltiazem 125 mg In 145 48.5 45.833 Sodium Chloride 0.9% 100 ml @ 5 MG/HR 5 mls/hr IV .Q24H [facility] Rx#:[id number] Heparin Sod,Pork in 0.45% 259.118 388.243 0 NaCl 25,000 unit In 0.45 % NaCl 1 500ml.bag @ 12 UNITS/KG/HR 18.74 mls/hr IV .Q24H [facility] Rx#: [id number] Propofol 1,000 mg In 200.000 300 Empty Bag 1 bag @ Titrate IV .Q0M [facility] Rx#: [id number] Sodium Chloride 0.9% 1, 225 000 ml @ 75 mls/hr IV . [id number] [facility] Rx#:[id number] Tube Feeding 30 10 Other 30 Output: Urine 1575 1150 160 Other: Voiding Method Indwelling Catheter Indwelling Catheter # Voids 2 ABP, PAP, CO, CI - Last Documented Arterial Blood Pressure 98/53 - Constitutional General appearance: Present: no acute distress - Respiratory Details: Lungs sounds coarse bilaterally. Respirations even, nonlabored on mechanical ventilation. Current settings assist control mode, FiO2 40%, tidal volume 400, respiratory rate 22, PEEP 5. 8.0 ET tube present, 24 at the lip. - Cardiovascular Details: S1, S2 present. Irregular, tachycardia rate and rhythm, atrial fibrillation on telemetry. Palpable pulses bilaterally. No calf pain or tenderness noted. No edema present. SCDs present. Right brachial PICC line, left radial arterial line present. - Gastrointestinal Gastrointestinal Comment(s): Abdomen soft, nontender, nondistended. Active bowel sounds 4 quadrants. OG tube present, tolerating tube feeding unit 10 mL/h. - Genitourinary Genitourinary Comment(s): Beaulieu present draining clear green tinged urine. Output 60-200 mL/h overnight. - Integumentary Integumentary Comment(s): Skin is warm and dry. Gangrene present to left big toe. - Neurologic Neurologic Comment(s): During sedation holiday patient does open his eyes and follows commands. - Musculoskeletal Musculoskeletal: Present: generalized weakness - Allied health notes Allied health notes reviewed: nursing - Labs CBC & Chem 7: 09/16/17 04:57 09/16/17 04:57 Labs: Abnormal Lab Results - Last 24 Hours (Table) 09/15/17 09/15/17 09/16/17 Range/Units 16:45 18:01 04:55 RBC (4.30-5.90) m/uL Hgb (13.0-17.5) gm/dL Hct (39.0-53.0) % MCHC (31.0-37.0) g/dL RDW (11.5-15.5) % APTT 56.5 H (22.0-30.0) sec ABG pH 7.46 H (7.35-7.45) ABG pCO2 33 L (35-45) mmHg ABG pO2 74 L 145 H (83-108) mmHg ABG O2 Saturation 99.6 H (94-97) % Carbon Dioxide (22-30) mmol/L BUN (9-20) mg/dL 09/16/17 09/16/17 09/16/17 Range/Units 04:57 04:57 04:57 RBC 3.74 L (4.30-5.90) m/uL Hgb 10.2 L (13.0-17.5) gm/dL Hct 36.5 L (39.0-53.0) % MCHC 28.0 L (31.0-37.0) g/dL RDW 16.6 H (11.5-15.5) % APTT 115.7 H* (22.0-30.0) sec ABG pH (7.35-7.45) ABG pCO2 (35-45) mmHg ABG pO2 (83-108) mmHg ABG O2 Saturation (94-97) % Carbon Dioxide 21 L (22-30) mmol/L BUN 22 H (9-20) mg/dL Microbiology - Last 24 Hours (Table) 09/15/17 12:40 Urine Culture - Preliminary Urine,Catheterized 09/11/17 10:12 Blood Culture - Preliminary Blood No Growth after 96 hours - Imaging and Cardiology Chest x-ray: report reviewed, image reviewed Assessment and Plan (1) Acute and chronic respiratory failure with hypoxia Current Visit: Yes Status: Acute Code(s): J96.21 - ACUTE AND CHRONIC RESPIRATORY FAILURE WITH HYPOXIA SNOMED Code(s): 58617870 (2) COPD (chronic obstructive pulmonary disease) Current Visit: Yes Status: Chronic Code(s): J44.9 - CHRONIC OBSTRUCTIVE PULMONARY DISEASE, UNSPECIFIED SNOMED Code(s): 28847703 (3) Chronic kidney disease, stage III (moderate) Current Visit: Yes Status: Chronic Code(s): N18.3 - CHRONIC KIDNEY DISEASE, STAGE 3 (MODERATE) SNOMED Code(s): 458984988 (4) Gangrenous toe Current Visit: Yes Status: Chronic Code(s): I96 - GANGRENE, NOT ELSEWHERE CLASSIFIED SNOMED Code(s): 266564218 (5) History of bradycardia Current Visit: No Status: Resolved Code(s): Z86.79 - PERSONAL HISTORY OF OTHER DISEASES OF THE CIRCULATORY SYSTEM SNOMED Code(s): 011256729063144 (6) History of coronary artery disease Current Visit: No Status: Resolved Code(s): Z86.79 - PERSONAL HISTORY OF OTHER DISEASES OF THE CIRCULATORY SYSTEM SNOMED Code(s): 593564043 (7) History of depression Current Visit: Yes Status: Chronic Code(s): Z86.59 - PERSONAL HISTORY OF OTHER MENTAL AND BEHAVIORAL DISORDERS SNOMED Code(s): 942723986 (8) Hypertension Current Visit: Yes Status: Chronic Code(s): I10 - ESSENTIAL (PRIMARY) HYPERTENSION SNOMED Code(s): 30709781 (9) Hypothyroidism Current Visit: Yes Status: Chronic Code(s): E03.9 - HYPOTHYROIDISM, UNSPECIFIED SNOMED Code(s): 76170485 (10) Peripheral vascular disease Current Visit: Yes Status: Chronic Code(s): I73.9 - PERIPHERAL VASCULAR DISEASE, UNSPECIFIED SNOMED Code(s): 915287779 (11) New onset a-fib Current Visit: Yes Status: Acute Code(s): I48.91 - UNSPECIFIED ATRIAL FIBRILLATION SNOMED Code(s): 60928981 Plan: 1. Plan is for mitral valve repair this admission, likely middle to end of next week. 2. Wean O2 as tolerated, ventilator management per pulmonology. Would prefer patient be extubated for a period time before surgery. 3. Continue heparin drip, Cardizem drip, amiodarone drip, aspirin, beta skylar. 4. Antibiotics, bronchodilators per pulmonology. 5. Avoid nephrotoxic agents. 6. Preoperative testing reviewed as results become available. 7. Patient has received dental clearance for valve surgery. 8. More recommendations to follow. Time with Patient: Greater than 30
[2017-09-16] MEDS: ONDANSETRON 4 MG/2 ML VIAL IVP PRN (09:19)
[2017-09-16] MEDS: MAGNESIUM SULFATE-D5W PMX 1 GM in DEXTROSE/WATER 1 100ML.BAG IVPB SCH ×2 (09:37→10:46)
[2017-09-16] MEDS: NICOTINE 21MG/24HR PATCH TRANSDERM SCH (09:37)
[2017-09-16] MEDS: CHLORHEXIDINE GLUCONATE 15 ML CUP MUCOUS MEM SCH (09:38)
[2017-09-16] MEDS: ASPIRIN 81 MG PO SCH (09:38)
[2017-09-16] MEDS: MUPIROCIN 2% OINT 22 GM TUBE NASAL SCH ×2 (09:39→20:28)
[2017-09-16] MEDS: FLUoxetine HCL 20 MG CAP PO SCH (09:40)
[2017-09-16] MEDS: SENNOSIDES 8.6 MG TAB PO SCH (09:40)
--- NOTE | 2017-09-16 10:04 | P.PN ---
Subjective Progress Note Date: 09/16/17 This patient remains intubated and sedated. Patient is in atrial fibrillation now. Rate is controlled with combination of Cardizem and amiodarone. Patient was seen by Dr. Addison and felt that is a ganglion the left foot is stable and doesn't need any surgical intervention. I spoke with Dr. Godoy regarding evaluation of hi mitral regurgitation and is going to do CLARE tomorrow morning. He is going to keep him intubated until the CLARE is performed. If necessary we' ll get a consult from the cardiac surgeons. Meanwhile patient will stay on current medical therapy. Progress note for 09/16/2017: This patient still having a intermittent bouts of atrial fibrillation alternating with bradycardia and he converts into sinus rhythm. Patient is on amiodarone and also Cardizem drip and bolus of metoprolol. Pulmonary is trying to wean him off the respirator. Cardiac surgeons apparently cannot do the surgery for several days. His cardiac catheterization revealed evidence of significant mitral regurg with an ejection fraction of 50-55%. No significant obstructive coronary artery disease noted. Prognosis is guarded Objective - Vital Signs Vital signs: Vital Signs Temp 99.2 F 09/16/17 08:00 Pulse 111 H 09/16/17 08:19 Resp 22 09/16/17 08:00 BP 83/53 09/16/17 08:00 Pulse Ox 100 09/16/17 07:00 Intake & Output 09/15/17 09/16/17 09/16/17 18:59 06:59 18:59 Intake Total 0664.905 2759.743 207.580 Output Total 1575 1150 160 Balance -307.982 215.743 47.580 Weight 89.4 kg Intake: IV 437.9 349 73 Piperacillin-Tazobactam 3 100 50 50 .375 gm In Dextrose/Water 1 50ml.bag @ 12.5 mls/hr IVPB Q8HR [facility] Rx#: [id number] Pressure Bag 36 39 3 Sodium Chloride 0.9% 1, 180 260 20 000 ml @ 20 mls/hr IV . Q24H [facility] Rx#:[id number] Intake, IV Titration 829.118 986.743 94.580 Amount Amiodarone 450 mg In 250 Dextrose 5% in Water 250 ml @ 0.5 MG/MIN 16.66 mls /hr IV .Q15H1M [facility] Rx#: [id number] Diltiazem 125 mg In 145 48.5 45.833 Sodium Chloride 0.9% 100 ml @ 5 MG/HR 5 mls/hr IV .Q24H [facility] Rx#:[id number] Heparin Sod,Pork in 0.45% 259.118 388.243 0 NaCl 25,000 unit In 0.45 % NaCl 1 500ml.bag @ 12 UNITS/KG/HR 18.74 mls/hr IV .Q24H [facility] Rx#: [id number] Propofol 1,000 mg In 200.000 300 48.747 Empty Bag 1 bag @ Titrate IV .Q0M [facility] Rx#: [id number] Sodium Chloride 0.9% 1, 225 000 ml @ 75 mls/hr IV . [id number] [facility] Rx#:[id number] Tube Feeding 30 10 Other 30 Output: Urine 1575 1150 160 Other: Voiding Method Indwelling Catheter Indwelling Catheter # Voids 2 ABP, PAP, CO, CI - Last Documented Arterial Blood Pressure 98/53 - Exam GENERAL EXAM: Patient is intubated and off sedation. He seems to be alert HEENT: Normocephalic. N CHEST: No chest wall deformity. LUNGS: Diminished breath sounds and diffuse rhonchi] HEART: [S1 and S2 normal ABDOMEN: No hepatosplenomegaly, normal bowel sounds, no guarding or rigidity. SKIN: No rashes CENTRAL NERVOUS SYSTEM: No focal deficits. EXTREMITIES: Left leg is wrapped - Labs CBC & Chem 7: 09/16/17 04:57 09/16/17 04:57 Labs: Abnormal Lab Results - Last 24 Hours (Table) 09/15/17 09/15/17 09/16/17 Range/Units 16:45 18:01 04:55 RBC (4.30-5.90) m/uL Hgb (13.0-17.5) gm/dL Hct (39.0-53.0) % MCHC (31.0-37.0) g/dL RDW (11.5-15.5) % APTT 56.5 H (22.0-30.0) sec ABG pH 7.46 H (7.35-7.45) ABG pCO2 33 L (35-45) mmHg ABG pO2 74 L 145 H (83-108) mmHg ABG O2 Saturation 99.6 H (94-97) % Carbon Dioxide (22-30) mmol/L BUN (9-20) mg/dL 09/16/17 09/16/17 09/16/17 Range/Units 04:57 04:57 04:57 RBC 3.74 L (4.30-5.90) m/uL Hgb 10.2 L (13.0-17.5) gm/dL Hct 36.5 L (39.0-53.0) % MCHC 28.0 L (31.0-37.0) g/dL RDW 16.6 H (11.5-15.5) % APTT 115.7 H* (22.0-30.0) sec ABG pH (7.35-7.45) ABG pCO2 (35-45) mmHg ABG pO2 (83-108) mmHg ABG O2 Saturation (94-97) % Carbon Dioxide 21 L (22-30) mmol/L BUN 22 H (9-20) mg/dL Microbiology - Last 24 Hours (Table) 09/15/17 12:40 Urine Culture - Preliminary Urine,Catheterized 09/11/17 10:12 Blood Culture - Preliminary Blood No Growth after 96 hours Assessment and Plan (1) CAD (coronary artery disease) Current Visit: Yes Status: Acute Code(s): I25.10 - ATHSCL HEART DISEASE OF [place] CORONARY ARTERY W/O ANG PCTRS SNOMED Code(s): 08943255 (2) Peripheral vascular disease Current Visit: Yes Status: Chronic Code(s): I73.9 - PERIPHERAL VASCULAR DISEASE, UNSPECIFIED SNOMED Code(s): 311686301 (3) New onset a-fib Current Visit: Yes Status: Acute Code(s): I48.91 - UNSPECIFIED ATRIAL FIBRILLATION SNOMED Code(s): 96574879 (4) Acute pulmonary edema Current Visit: Yes Status: Acute Code(s): J81.0 - ACUTE PULMONARY EDEMA SNOMED Code(s): 11979921 (5) Pneumonia Current Visit: Yes Status: Acute Code(s): J18.9 - PNEUMONIA, UNSPECIFIED ORGANISM SNOMED Code(s): 032085279 Plan: This patient's clinical status is still critical. Patient has significant mitral regurgitation and has been having episodes of pulmonary edema. Patient also has intermittent bouts of atrial fibrillation with RVR. Currently on IV Amiodarone along with metoprolol and also Cardizem. Unfortunately, patient becomes bradycardic and he converts into sinus rhythm. He is waiting for surgical repair of the mitral valve. Prognosis is guarded
[2017-09-16 10:10] LABS: ABG HCO3 23 mmol/L (21-25); ABG PCO2 34 mmHg (35-45); ABG PH 7.43 (7.35-7.45); ABG PO2 136 mmHg (83-108); ABG TCO2 24 mmol/L (19-24)
--- NOTE | 2017-09-16 10:46 | P.PN ---
Progress Note - Text 62-year-old male history of dry gangrene left foot big toe and second toe patient has been extubated today. Patient has history of atrial fibrillation mitral regurgitation the foot has a dry gangrene we will wait till patient stable from cardiac point of view discussed with Dr. Rose patient is also seen by thoracic surgery for possible open heart surgery for mitral regurgitation have discussed in detail with the family
[2017-09-16 12:01] LABS: Glucose,Whole Blood 123 mg/dL (75-99)
--- NOTE | 2017-09-16 12:02 | P.PN ---
Subjective Progress Note Date: 09/16/17 Principal diagnosis: This is a 62-year-old male is being seen in consultation because of acute kidney injury with congestive heart failure atrial fibrillation and mitral valve regurgitation. He was extubated and currently on BiPAP on 40% FiO2. Is awake alert oriented Additionally he is found to have gangrene of his toes and is seen by vascular surgery as well as the possibility of an open heart surgery for repair of the mitral valve. His creatinine is improved. His chest x-ray does show some CHF. Currently on exam he is in atrial fibrillation on 40% FiO2 by his CPAP Blood pressure 120/73 heart rate in the 120s atrial fibrillation Objective - Vital Signs Vital signs: Vital Signs Temp 99.2 F 09/16/17 08:00 Pulse 121 H 09/16/17 11:29 Resp 22 09/16/17 11:00 BP 120/73 09/16/17 11:00 Pulse Ox 100 09/16/17 11:00 Intake & Output 09/15/17 09/16/17 09/16/17 18:59 06:59 18:59 Intake Total 9471.592 6901.743 489.580 Output Total 1575 1150 830 Balance -307.982 215.743 -340.420 Weight 89.4 kg 86.8 kg Intake: IV 437.9 349 155.0 Piperacillin-Tazobactam 3 100 50 100.0 .375 gm In Dextrose/Water 1 50ml.bag @ 12.5 mls/hr IVPB Q8HR [facility] Rx#: [id number] Pressure Bag 36 39 15 Sodium Chloride 0.9% 1, 180 260 40 000 ml @ 20 mls/hr IV . Q24H [facility] Rx#:[id number] Intake, IV Titration 829.118 986.743 294.580 Amount Amiodarone 450 mg In 250 Dextrose 5% in Water 250 ml @ 0.5 MG/MIN 16.66 mls /hr IV .Q15H1M [facility] Rx#: [id number] Diltiazem 125 mg In 145 48.5 45.833 Sodium Chloride 0.9% 100 ml @ 5 MG/HR 5 mls/hr IV .Q24H [facility] Rx#:[id number] Heparin Sod,Pork in 0.45% 259.118 388.243 0 NaCl 25,000 unit In 0.45 % NaCl 1 500ml.bag @ 12 UNITS/KG/HR 18.74 mls/hr IV .Q24H [facility] Rx#: [id number] Magnesium Sulfate-D5w Pmx 200 1 gm In Dextrose/Water 1 100ml.bag @ 100 mls/hr IVPB Q1H [facility] Rx#: [id number] Propofol 1,000 mg In 200.000 300 48.747 Empty Bag 1 bag @ Titrate IV .Q0M [facility] Rx#: [id number] Sodium Chloride 0.9% 1, 225 000 ml @ 75 mls/hr IV . [id number] [facility] Rx#:[id number] Tube Feeding 30 10 Other 30 Output: Urine 1575 1150 830 Other: Voiding Method Indwelling Catheter Indwelling Catheter Indwelling Catheter # Voids 2 ABP, PAP, CO, CI - Last Documented Arterial Blood Pressure 124/58 HEENT exam no JVP noted neck is supple no facial asymmetry Lungs are clear to auscultation with fair air entry bilaterally Heart sounds are unremarkable for any murmur rub gallop. He is in atrial fibrillation. Abdomen soft nontender no organomegaly noted Extremity exam was trace edema, he has dry gangrene of the left big toe and second toe. Neurologically awake alert response questions and follows commands. - Labs CBC & Chem 7: 09/16/17 04:57 09/16/17 04:57 Labs: Abnormal Lab Results - Last 24 Hours (Table) 09/15/17 09/15/17 09/16/17 Range/Units 16:45 18:01 04:55 RBC (4.30-5.90) m/uL Hgb (13.0-17.5) gm/dL Hct (39.0-53.0) % MCHC (31.0-37.0) g/dL RDW (11.5-15.5) % APTT 56.5 H (22.0-30.0) sec ABG pH 7.46 H (7.35-7.45) ABG pCO2 33 L (35-45) mmHg ABG pO2 74 L 145 H (83-108) mmHg ABG O2 Saturation 99.6 H (94-97) % Carbon Dioxide (22-30) mmol/L BUN (9-20) mg/dL 09/16/17 09/16/17 09/16/17 Range/Units 04:57 04:57 04:57 RBC 3.74 L (4.30-5.90) m/uL Hgb 10.2 L (13.0-17.5) gm/dL Hct 36.5 L (39.0-53.0) % MCHC 28.0 L (31.0-37.0) g/dL RDW 16.6 H (11.5-15.5) % APTT 115.7 H* (22.0-30.0) sec ABG pH (7.35-7.45) ABG pCO2 (35-45) mmHg ABG pO2 (83-108) mmHg ABG O2 Saturation (94-97) % Carbon Dioxide 21 L (22-30) mmol/L BUN 22 H (9-20) mg/dL 09/16/17 Range/Units 09:58 RBC (4.30-5.90) m/uL Hgb (13.0-17.5) gm/dL Hct (39.0-53.0) % MCHC (31.0-37.0) g/dL RDW (11.5-15.5) % APTT (22.0-30.0) sec ABG pH (7.35-7.45) ABG pCO2 34 L (35-45) mmHg ABG pO2 136 H (83-108) mmHg ABG O2 Saturation 100.0 H (94-97) % Carbon Dioxide (22-30) mmol/L BUN (9-20) mg/dL Microbiology - Last 24 Hours (Table) 09/15/17 12:40 Urine Culture - Preliminary Urine,Catheterized 09/11/17 10:12 Blood Culture - Preliminary Blood No Growth after 96 hours Assessment and Plan Assessment: Impression. 1. Acute kidney injury from congestive heart failure, mitral valve regurgitation, atrial fibrillation. Responding to current treatment regimen. Creatinine down to 1.2 2. Mild degree of non-gap acidosis from acute kidney injury. Bicarb went down slightly from 25. 3. When dependent respiratory failure resolved currently on BiPAP on 40% FiO2. 4. Congestive heart failure on chest x-ray. 5. Mitral valve regurgitation. 6. Gangrene off left great toe and second toe. 7. Mild degree of respiratory alkalosis with a pH of 7.43 with a pCO2 of 34, serum bicarb is 21 Recommendation. 1. Lasix 20 mg every 12 with close watch on blood pressure and heart rate and urine output. 2. His blood gases show alkalosis therefore no need to treat the compensatory metabolic acidosis but just watch it.
[2017-09-16 12:12] LABS: ALT 137 U/L (21-72); AST 34 U/L (17-59); Albumin 2.7 g/dL (3.5-5.0); Alkaline Phosphatase 68 U/L (38-126); Total Bilirubin 0.4 mg/dL (0.2-1.3); Total Protein 5.7 g/dL (6.3-8.2)
[2017-09-16] MEDS ORDERED: FUROSEMIDE 10 MG/ML 2 ML VIAL IV SCH (12:15)
--- NOTE | 2017-09-16 12:19 | P.PN ---
Subjective Progress Note Date: 09/16/17 Principal diagnosis: Respiratory failure Progress note dated 09/11/2017 This is a 62-year-old black male who was admitted on September 06. He apparently was initially admitted with a diagnosis of sepsis with a gangrenous toe. He started in the ER went to the general medical floor and 18 was called because of respiratory failure and acidosis. He that reason he was intubated on September 06 and transferred to the ICU. He was extubated initially on September 08 and then reintubated again on September 11. This was today at 4:00 in the morning. The patient's x-ray shows diffuse bilateral infiltrates worse on the right than on the left side. His current ventilator settings include the assist control mode, rate of 12, an FiO2 of 70%, tidal Byam of 500, PEEP of 10. Arterial blood gases show a PaO2 of 88 a PaCO2 of 37 and a pH of 7.36. His current IVs include a saline IV at 20 mL an hour, heparin via weightbase protocol for atrial fibrillation propofol at 35 mics per kilogram per minute and Cordarone at 0.5 mg/m. The patient's x-rays labs medications are all reviewed. Microbiology is all negative. I asked the nurse to resume his tube feeds. Progress note dated September 12 2017 62-year-old black male who was admitted on September 06. He apparently was initially admitted with a diagnosis of sepsis with a gr gangrenous toe. He started in the ER want to the general medical floor and a rapid response was called because of respiratory failure and severe acidosis. He was intubated on September 06 and transferred to the intensive care unit. He was initially extubated on September 08 and then reintubated again on September 11. That was at 4 :00 in the morning. My partner was called. His chest x-ray yesterday showed diffuse bilateral pulmonary infiltrates worse on the right than on the left. We made some changes yesterday. The patient's chest x-ray today is much improved suggesting that he has mostly pulmonary edema/heart failure. In fact, the echocardiogram did reveal evidence of severe mitral regurgitation. The patient clinically is much better today. We are going to have the vascular service surgeon see him about the great toe. Likely, thoracic surgery would not want to do anything if there was active infection. The patient's FiO2 was dropped from 50-40%. In addition, we'll be able to make some significant PEEP changes today.His current vent settings are the assist control mode rate of 22 tidal volume 400 FiO2 40% and PEEP of 13. The PEEP can probably be dropped down from 13-10 later today. Arterial blood gases show a PaO2 of 177 a PaCO2 of 41 and a pH of 7.35. His is consistent with a very mild metabolic acidosis. The patient's on heparin via weightbase protocol, propofol at 45 mics per kilogram per minute dopamine which is currently off started earlier this morning for bradycardia a saline IV at 20 mL an hour and vital high protein at 56 with a goal of 56 mL per hour. Progress note dated 09/13/2017 62-year-old black male who was admitted on September 06. He was initially admitted with a diagnosis of sepsis with a gangrenous toe. He was initially admitted from the ER to the general medical floor and then subsequent to that a rapid response was called because of respiratory failure and severe metabolic acidosis. He was intubated later on September 06 and was transferred to the ICU. He was initially extubated on and then reintubated again early in the morning of September 11 for respiratory failure. His chest x-ray showing waxing waning diffuse bilateral pulmonary infiltrates. These infiltrates, likely represent heart failure, but could also relate to pneumonia/ acute lung injury. The patient's echocardiogram did reveal severe mitral regurgitation. Cardiology is looking into that. Also, we have vascular surgeon looking at the gangrenous toe. The patient's FiO2 was dropped from 50 to 40%. In addition, the PEEP was dropped recently from 13-10 8. Arterial blood gases are reviewed. He is on the assist control mode with a rate of 22. Tidal Byam is 400. Other than that, the patient seems to be doing about the same. I did speak to the infectious disease career development consultant as well as a cardiology consult about this patient. Progress note dated 09/14/2017 62-year-old black male who was admitted back on September 06. He was initially admitted with a diagnosis of sepsis and a gangrenous toe. Vascular surgery saw the patient yesterday and determined that he had dry gangrene and no debridement or amputation was necessary. The patient was initially admitted from the emergency room to the general medical floor and subsequent to that a rapid response team was called because of respiratory failure and severe metabolic acidosis. He was moved he was intubated later on September 06 and was transferred to the ICU. The patient was then initially extubated on September 08 and the reintubated again early in the morning on September for respiratory failure. His pattern has been that of flash pulmonary edema although, acute lung injury/nosocomial pneumonia, could not be excluded. Mostly though, we believe it relates to heart failure from a case of severe mitral regurgitation. The patient underwent transesophageal echocardiogram this morning and was determined to have severe mitral regurgitation and thought to have an ejection fraction of 25%. He is scheduled for heart catheterization on September 15 and the patient will be seen by cardiothoracic surgery. Currently he is on IV heparin via weightbase protocol propofol at 45 mics per kilogram per minute, Cordarone at 0.5 mg/m Cardizem drip at 10 mg an hour saline IV at 20 mL an hour and vital high protein at 56 mL an hour with a goal of 56. The patient's vent settings include the assist control mode rate of 22 tidal volume of 400 FiO2 40% and PEEP of 5. Blood gases show a PaO2 of 103 a PaCO2 of 36 and a pH 7.45. This is consistent with mild respiratory alkalosis. The patient probably could be extubated. But because she is having a heart cath tomorrow, my inclination is to keep monitoring ventilator until then. Progress note dated 09/15/2017 62-year-old black male admitted back on September 06. The patient was initially admitted with a diagnosis of sepsis and a gangrenous toe. Vascular surgery seems to think that the toe represents dry gangrene and no additional debridement or amputation is necessary. The patient initially presented to the emergency room with an into the general medical floor. A rapid response was called. The patient developed respiratory failure and severe metabolic acidosis. He was moved to the ICU and intubated on September 06. He was extubated initially on in the reintubated early in the morning on September 11 for respiratory failure. His pattern has been that of a flash pulmonary edema. The patient also may be having a component of acute lung injury/nosocomial pneumonia. Anyway, the pulmonary edema is likely related mostly to card and myopathy as well as severe mitral regurgitation. The patient had a transesophageal echocardiogram yesterday and is going for cardiac catheterization today. The patient was maintained on mechanical ventilator because he was going for catheterization today. Hopefully, we can get him extubated later today. This depends on what is done. Currently, the patient's on the ventilator with the assist control mode rate of 22 breathing 24 times a minute, tidal volume of 400 FiO2 40% PEEP of 5. Arterial blood gases show a PaO2 of 98 a PaCO2 of 35 and a pH of 7.41. The patient's on a saline IV at KVO heparin is been turned off the Cardizem drip is running at 10 mg an hour and tube feeds are on hold. The patient's chest x-ray reveals some mild fluid overload. All in all though, the patient's much more stable. I have been turned to the family all along the fact, the family member is one of my primary patient to my office. This is the patient's nephew. Progress note dated 10/14/2017 62-year-old black male status post respiratory failure. The patient was extubated this morning. The patient had excellent weaning parameters and blood gases. We attempted yesterday to extubate the patient but he really wasn't ready for extubation. We did extubate him to BiPAP. He is on BiPAP at 12 and 5 and 40%. The patient was initially admitted back on September 06 with an episode of sepsis and a gangrenous toe. Because of worsening respiratory status , on the general medical floor, a rapid response team was called. The patient' s respiratory failure led him to be intubated and transferred to the ICU on September 06. He was initially extubated on seb second and reintubated on the morning of September 11. He is finally extubated today on September 16. The patient had a transesophageal echocardiogram which suggested poor cardiac function with an ejection fraction to be estimated at 20-25% and severe mitral regurgitation. The patient subsequently had a cardiac cardiac catheterization which revealed no evidence of coronary artery disease and again severe mitral regurgitation. The patient is apparently going to have a mitral valve replacement/repair done midweek by one of the cardiothoracic surgeons. Currently, the patient's on BiPAP at 12 and 5 and 40%. His chest x-ray shows fluid overload so he'll get some additional Lasix. His IV is a saline IV at KVO a Cardizem drip at 5 mg an hour Cordarone at 0.5 mL/m heparin via weightbase protocol and his tube feeds are currently off. He seemed pretty comfortable and there. Objective - Vital Signs Vital signs: Vital Signs Temp 99.2 F 09/16/17 08:00 Pulse 121 H 09/16/17 11:29 Resp 22 09/16/17 11:00 BP 120/73 09/16/17 11:00 Pulse Ox 100 09/16/17 11:00 Intake & Output 09/15/17 09/16/17 09/16/17 18:59 06:59 18:59 Intake Total 9260.059 4880.743 489.580 Output Total 1575 1150 830 Balance -307.982 215.743 -340.420 Weight 89.4 kg 86.8 kg Intake: IV 437.9 349 155.0 Piperacillin-Tazobactam 3 100 50 100.0 .375 gm In Dextrose/Water 1 50ml.bag @ 12.5 mls/hr IVPB Q8HR AJ Rx#: [id number] Pressure Bag 36 39 15 Sodium Chloride 0.9% 1, 180 260 40 000 ml @ 20 mls/hr IV . Q24H AJ Rx#:[id number] Intake, IV Titration 829.118 986.743 294.580 Amount Amiodarone 450 mg In 250 Dextrose 5% in Water 250 ml @ 0.5 MG/MIN 16.66 mls /hr IV .Q15H1M AJ Rx#: [id number] Diltiazem 125 mg In 145 48.5 45.833 Sodium Chloride 0.9% 100 ml @ 5 MG/HR 5 mls/hr IV .Q24H AJ Rx#:[id number] Heparin Sod,Pork in 0.45% 259.118 388.243 0 NaCl 25,000 unit In 0.45 % NaCl 1 500ml.bag @ 12 UNITS/KG/HR 18.74 mls/hr IV .Q24H AJ Rx#: [id number] Magnesium Sulfate-D5w Pmx 200 1 gm In Dextrose/Water 1 100ml.bag @ 100 mls/hr IVPB Q1H AJ Rx#: [id number] Propofol 1,000 mg In 200.000 300 48.747 Empty Bag 1 bag @ Titrate IV .Q0M AJ Rx#: [id number] Sodium Chloride 0.9% 1, 225 000 ml @ 75 mls/hr IV . [id number] AJ Rx#:[id number] Tube Feeding 30 10 Other 30 Output: Urine 1575 1150 830 Other: Voiding Method Indwelling Catheter Indwelling Catheter Indwelling Catheter # Voids 2 ABP, PAP, CO, CI - Last Documented Arterial Blood Pressure 124/58 - Exam No acute distress, currently the BiPAP mask is in place. HEENT examination is grossly unremarkable. Mucous membranes are moist. No oral lesions. Neck supple. Full range of motion. No adenopathy thyromegaly or neck vein distention. Cardiovascular examination reveals irregular rhythm rate. S1-S2 normal. No S3 or S4. Soft murmur is heard now the patient's extubated. Lungs reveal coarse bilateral breath sounds. Breath sounds are diminished. Mild bibasilar crackles. Breath sounds are diminished more on the right side than the left. Abdomen soft bowel sounds are heard. No masses or tenderness. Extremities are intact. No cyanosis clubbing or edema. Skin is without rash or lesion. Neurologic examination could not be performed. - Labs CBC & Chem 7: 09/16/17 04:57 09/16/17 04:57 Labs: Abnormal Lab Results - Last 24 Hours (Table) 09/15/17 09/15/17 09/16/17 Range/Units 16:45 18:01 04:55 RBC (4.30-5.90) m/uL Hgb (13.0-17.5) gm/dL Hct (39.0-53.0) % MCHC (31.0-37.0) g/dL RDW (11.5-15.5) % APTT 56.5 H (22.0-30.0) sec ABG pH 7.46 H (7.35-7.45) ABG pCO2 33 L (35-45) mmHg ABG pO2 74 L 145 H (83-108) mmHg ABG O2 Saturation 99.6 H (94-97) % Carbon Dioxide (22-30) mmol/L BUN (9-20) mg/dL POC Glucose (mg/dL) (75-99) mg/dL 09/16/17 09/16/17 09/16/17 Range/Units 04:57 04:57 04:57 RBC 3.74 L (4.30-5.90) m/uL Hgb 10.2 L (13.0-17.5) gm/dL Hct 36.5 L (39.0-53.0) % MCHC 28.0 L (31.0-37.0) g/dL RDW 16.6 H (11.5-15.5) % APTT 115.7 H* (22.0-30.0) sec ABG pH (7.35-7.45) ABG pCO2 (35-45) mmHg ABG pO2 (83-108) mmHg ABG O2 Saturation (94-97) % Carbon Dioxide 21 L (22-30) mmol/L BUN 22 H (9-20) mg/dL POC Glucose (mg/dL) (75-99) mg/dL 09/16/17 09/16/17 Range/Units 09:58 11:58 RBC (4.30-5.90) m/uL Hgb (13.0-17.5) gm/dL Hct (39.0-53.0) % MCHC (31.0-37.0) g/dL RDW (11.5-15.5) % APTT (22.0-30.0) sec ABG pH (7.35-7.45) ABG pCO2 34 L (35-45) mmHg ABG pO2 136 H (83-108) mmHg ABG O2 Saturation 100.0 H (94-97) % Carbon Dioxide (22-30) mmol/L BUN (9-20) mg/dL POC Glucose (mg/dL) 123 H (75-99) mg/dL Microbiology - Last 24 Hours (Table) 09/15/17 12:40 Urine Culture - Preliminary Urine,Catheterized 09/11/17 10:12 Blood Culture - Preliminary Blood No Growth after 96 hours Assessment and Plan Assessment: Assessment Acute hypoxemic respiratory failure secondary to sepsis/septic shock with a gangrenous toe and underlying cellulitis. Possible bilateral nosocomial pneumonia vs. acute lung injury Atrial fibrillation/RVR Congestive heart failure, secondary to severe mitral regurgitation and cardiomyopathy with an ejection fraction of 25% Intermittent sinus bradycardia History of CAD with previous stent placement History of COPD History of essential hypertension History of depression Peripheral vascular occlusive disease Hypothyroidism Hypertensive nephrosclerosis with chronic kidney disease, stage III Acute cellulitis and dry gangrene of the left big toe, status post debridement Plan: Plan dated 09/11/2017 The patient developed acute respiratory failure early this morning. My partner was called. He was reintubated. I'll make a slight change in the vent settings. We'll go with a low titer volume strategy. We'll drop a tidal volume from 500-400. We'll bump the rate from 16-24. PEEP will be increased from 10-13. I will review the labs x-rays a medications. We'll resume tube feeds. Prognosis is poor. Additional recommendations and suggestions are forthcoming. Plan dated 09/12/2017 Vascular surgery will come in to see the patient today.Labs x-rays a medications are all reviewed. The dopamine is now off. It was started for bradycardia. The patient's FiO2 was dropped from 50-40%. Likely will be able to make some PEEP changes as well. Chest x-ray is dramatically improved. We' ll continue to follow closely. Prognosis is guarded. The mitral valve issue is certainly likely the cause of the patient's flash pulmonary edema. He may even have mitral valve endocarditis. Plan dated 09/13/2017 The patient was seen by vascular surgery this morning. The surgeon feels like this is a dry gangrene and nothing active going on and no additional debridement or amputation is required. We'll let the infectious disease doctor know. The PEEP was dropped from 10 to 8. Gases are reviewed. His P/F ratio is 235 indicating mild ARDS. The chest x-ray is improved. Most of his issues in the lungs related to congestive heart failure because of the severe mitral regurgitation. We'll talk to cardiology about a CLARE as well as thoracic surgery about possible mitral valve repair/replacement. Plan dated 09/14/2017 The patient had his transesophageal echocardiogram today. His ejection fraction was estimated at 25% and he has severe mitral regurgitation. The patient scheduled for heart catheterization tomorrow. The patient will be maintained on the ventilator since then. Blood gases are reasonable. Chest x- rays improved although he did still has a pattern of some mild fluid overload. The patient remains on IV heparin via weightbase protocol propofol Cordarone and Cardizem and his tube feeds. Overall prognosis is poor. We'll continue to watch patient very closely. Additional recommendations and suggestions are forthcoming. Plan dated 09/15/2017 The patient is scheduled for a cardiac catheterization this morning. He had a transesophageal echocardiogram yesterday. His estimated ejection fraction was only 20-25% and he has Severe mitral regurgitation. The patient is maintained on mechanical ventilator. Labs x-rays a medications are all reviewed. No additional recommendations are made. Prognosis is guarded. We'll continue to follow closely. Plan dated 09/16/2017 The patient's of doing reasonably well. He was extubated this morning. His weaning parameters blood gases and so forth were all excellent. He passes cuff leak test. He maintains on Cardizem drip at 5 mg an hour amiodarone 0.5 mg/m and heparin via weightbase protocol. 2 feeds off. Ready to give him some additional Lasix. We'll watch him very closely. The plan is to do mitral valve repair/replacement midweek. Time with Patient: Greater than 30
[2017-09-16] MEDS ORDERED: FUROSEMIDE 10 MG/ML 2 ML VIAL IV STA (12:23)
--- NOTE | 2017-09-16 12:36 | P.PN ---
Progress Note - Text Progress Note Date: 09/16/17 DATE OF SERVICE: 09/16/2017 PRESENTING COMPLAINT: Intubated HISTORY OF PRESENT ILLNESS: 62-year-old male who was admitted with an infected left toe from recent trauma. Failed outpatient treatment. When internal arrhythmia, then went into respiratory failure and was intubated. Was extubated and had to be reintubated. Remains on the ventilator FiO2 of 40 and a PEEP of 5. Currently in atrial fibrillation with rapid ventricular rate and pauses. Remains on amiodarone and Cardizem drip as well as IV heparin and propofol. Had a CLARE on 09/14/2017 and found to have severe mitral regurgitation. INTERVAL HISTORY: 09/16/2017: Lying in bed awake intubated participating in a spontaneous breathing trial in an attempt for extubation. Weaning trial attempted yesterday without success. Surgical intervention planned for next week for the mitral valve. Remains in the ICU on propofol, amiodarone drip, Cardizem drip, metoprolol, and heparin drip. Patient does have bursts of atrial fibrillation and RVR as well as alternating with bradycardia with converting into sinus rhythm. Nutritional support in the form of enteral feedings, currently on bed rest due to intubation , last BM not documented in the patient chart 09/15/2017: Lying in bed awake intubated, status post catheterization in which his LAD has a stent that is patent, circumflex is free of significant stenosis of right coronary artery is dominant vessel and free of stenosis. Has 3+ mitral regurgitation, await input from cardiothoracic surgery regarding repair/replace mitral valve. Remains in the ICU on propofol, amiodarone drip, Cardizem drip, may extubate patient later today if there is no immediate surgical intervention for the mitral valve. REVIEW OF SYSTEMS: Unable to assess due to patient condition CURRENT MEDICATIONS Acetaminophen, DuoNeb, amiodarone drip, aspirin, Peridex, diltiazem drip, Prozac , heparin drip, insulin sliding scale, Synthroid, Lopressor, nicotine patch, Bactroban ointment, Protonix, Zosyn, senna, 0.9% sodium chloride at 20 mL an hour. PHYSICAL EXAM VITAL SIGNS: Temperature 99.2 pulse 124, respiratory rate 22, blood pressure 98/53, mechanically ventilated via ET tube FiO2 40%, PEEP of 5 GENERAL APPEARANCE: Lying in bed, awake not in distress. HENT: Normocephalic, JVD not raised. Mass not palpable. Oral cavity ET tube and orogastric tube in placel, external appearance of ears and nose normal, EYES:Pupils equal. Conjunctiva normal. RESPIRATORY: Respiratory effort normal. Lungs clear to auscultation. CARDIOVASCULAR: Irregular rhythm No edema. ABDOMEN: Soft. Liver and spleen not palpable. No tenderness. No mass palpable. PSYCHIATRY: Alert and oriented x3. Mood and affect normal. EXTREMITIES: Infection of the left big toe INTEGUMENT: Right radial arterial line in place. Right femoral groin site clean dry and intact, no bleeding or hematoma INVESTIGATIONS: LABS: Hemoglobin 10.2, APTT 115.7, blood gas: PH 7.46/pCO2 33/pO2 145/HCO3 23/ be -0.5 Chest x-ray: Borderline cardiomegaly, bibasilar airspace disease worsening on the right. Cardiac catheterization: LAD stented with this patent stent, circumflex free of significant stenosis, right coronary artery is large dominant vessel free of stenosis. Nasopharyngeal swab negative Catheter tip: Negative after 48 hours Sputum culture: No growth after 48 hours Blood culture: No growth after 144 hours ASSESSMENT: -Acute great toe cellulitis and wound secondary to trauma with possible dry gangrene, expected to auto amputate, having failed outpatient treatment. -Acute hypoxic respiratory failure secondary to sepsis requiring ventilator assistance. Patient remains intubated. -Bilateral pneumonia, suspect gram-negative organism, possibly causing sepsis resolved -Acute pulmonary edema, could be arrhythmia related. -Acute metabolic acidosis, compensatory -Acute kidney injury secondary to acute tubular necrosis secondary to sepsis with some biochemical improvement. -Acute shock liver, biochemical improvement, from hypotension. -Persistent atrial fibrillation, uncontrolled patient is on a heparin drip.Amiodarone and Cardizem continue -Chronic kidney disease stage III from nephrosclerosis with a baseline creatinine of 1.3. -Acute chronic obstructive pulmonary disease exacerbation in a current smoker. -Chronic nicotine dependence in a cigarette smoker. -Coronary artery disease, prior history of stent. -Hypothyroidism. -Essential hypertension, history. -Hyperlipidemia. -Peripheral artery disease. -Depression, anxiety, not otherwise specified. -Severe mitral regurgitation as per transesophageal echocardiogram -Status post cardiac catheterization with patent stent to the LAD, circumflex free of significant stenosis right coronary artery is free of stenosis. PLAN: Patient remains on IV amiodarone and Cardizem, IV heparin. Attempt breathing trial today in hopes of extubation. Tentative plans from cardiothoracic surgery for mitral valve repair midweek next week. Dry gangrene of the left big toe and second toe will be managed by vascular surgery at a later date and time once patient's cardiac status is stabilized. Nephrology will continue with 20 mg of Lasix every 12 hours with close watching of blood pressure urine output and heart rate. Has a compensatory metabolic acidosis but no need to treat just monitor. Plan of care discussed at the bedside we will follow closely. AND RESCUE [employer] statement: Patient was seen and examined by nurse practitioner Xiao Glass and all elements of the case discussed with attending Dr. Alston
[2017-09-16] MEDS: SODIUM CHLORIDE 0.9% 1,000 ML IV SCH (14:39)
[2017-09-16] MEDS: HYDROmorphone 0.5 MG/0.5 ML SYRINGE IVP PRN ×2 (16:34→22:25)
[2017-09-16 17:43] LABS: Glucose,Whole Blood 94 mg/dL (75-99)
[2017-09-16] MEDS: FUROSEMIDE 10 MG/ML 4 ML VIAL IV SCH (20:28)
--- NOTE | 2017-09-17 00:32 | PN ---
PROGRESS NOTE DATE OF SERVICE: 09/16/17 ATTENDING NOTE: Patient seen and examined by me. I discussed with nurse practitioner, Ms. Glass. The patient is extubated, lying in bed, tired appearing on nasal cannula. Lungs decreased breath sounds. Heart sounds irregular, uncontrolled. ASSESSMENT: 1. Atrial fibrillation, present uncontrolled. 2. Severe MR. 3. Chronic kidney disease. PLAN: The patient is on IV amiodarone, IV Cardizem and IV heparin. Cardiothoracic is planning for possible valve replacement on Monday. Prognosis guarded. Follow. MMODL / IJN: [id number] /
[2017-09-17] MEDS: IPRATROPIUM-ALBUTEROL 3 ML NEB INHALATION SCH ×4 (03:07→21:13)
[2017-09-17] MEDS: DILTIAZEM 125 MG in SODIUM CHLORIDE 0.9% 100 ML IV SCH (04:00)
[2017-09-17 04:55] LABS: Anisocytosis Slight; HCT 35.4 % (39.0-53.0); HGB 10.3 gm/dL (13.0-17.5); Hypochromasia Marked; MCH 27.5 pg (25.0-35.0); MCHC 29.1 g/dL (31.0-37.0); MCV 94.7 fL (80.0-100.0); Mean Platelet Volume 7.9; Platelet Count 312 k/uL (150-450); RBC 3.74 m/uL (4.30-5.90); RDW 16.3 % (11.5-15.5); WBC 5.9 k/uL (3.8-10.6)
[2017-09-17 05:16] LABS: ALT 145 U/L (21-72); AST 79 U/L (17-59); Alkaline Phosphatase 74 U/L (38-126); Anion Gap 10 mmol/L; Blood Urea Nitrogen 19 mg/dL (9-20); Calcium 8.7 mg/dL (8.4-10.2); Carbon Dioxide 26 mmol/L (22-30); Chloride 101 mmol/L (98-107); Glucose 85 mg/dL (74-99); Potassium 3.3 mmol/L (3.5-5.1); Sodium 137 mmol/L (137-145); Total Bilirubin 0.5 mg/dL (0.2-1.3)
--- NOTE | 2017-09-17 06:27 | XR ---
EXAMINATION TYPE: XR chest 1V DATE OF EXAM: 09/17/2017 HISTORY: mitral valve reguritation/pulmonary edema. REFERENCE: Previous study dated 09/16/2017. FINDINGS: The patient has been extubated. The patient is NG tube has been removed. The right basilic PICC line in place. Its tip is at the cavoatrial junction. Heart size upper limits of normal. There is minimal left basilar airspace disease. The lungs are othe rwise clear. Pleural space are clear. IMPRESSION: MINIMAL LEFT BASILAR ATELECTASIS.
[2017-09-17] MEDS: LEVOTHYROXINE 25 MCG TAB PO SCH (06:49)
[2017-09-17] MEDS: AMIODARONE 450 MG in DEXTROSE 5% IN WATER 250 ML IV SCH ×4 (06:49→20:11)
[2017-09-17] MEDS: PANTOPRAZOLE 40 MG TABLET PO SCH (06:49)
[2017-09-17] MEDS ORDERED: POTASSIUM CHLORIDE 20 MEQ in WATER FOR INJECTION 1 100ML.BAG IVPB ONE (07:14)
[2017-09-17] MEDS: MAGNESIUM SULFATE-D5W PMX 1 GM in DEXTROSE/WATER 1 100ML.BAG IVPB SCH ×2 (08:20→09:44)
[2017-09-17] MEDS: METOPROLOL TARTRATE 5 MG/5 ML VIAL IVP SCH ×3 (08:20→23:50)
[2017-09-17] MEDS: FUROSEMIDE 10 MG/ML 4 ML VIAL IV SCH ×2 (08:21→20:11)
[2017-09-17] MEDS: FLUoxetine HCL 20 MG CAP PO SCH (08:21)
[2017-09-17] MEDS: ASPIRIN 81 MG PO SCH (08:21)
[2017-09-17] MEDS: NICOTINE 21MG/24HR PATCH TRANSDERM SCH (08:21)
[2017-09-17] MEDS: SENNOSIDES 8.6 MG TAB PO SCH (08:22)
--- NOTE | 2017-09-17 08:52 | P.PN ---
Subjective Progress Note Date: 09/17/17 Principal diagnosis: This is a 62-year-old male is being seen in consultation because of acute kidney injury with congestive heart failure atrial fibrillation and mitral valve regurgitation. He was extubated yesterday dated 09/16/2079 and was on BiPAP but this morning he is much better on room air sitting in a chair comfortable. a Is awake alert oriented Additionally he is found to have gangrene of his toes and is seen by vascular surgery as well as the possibility of an open heart surgery for repair of the mitral valve. His creatinine is improved. His chest x-ray did show some congestive heart failure yesterday but this morning's chest x-rays much clear and no indication of any congestive heart failure. Currently on exam he is in atrial fibrillation Objective - Vital Signs Vital signs: Vital Signs Temp 98.9 F 09/17/17 04:00 Pulse 105 H 09/17/17 07:24 Resp 25 H 09/17/17 06:30 BP 92/66 09/16/17 15:30 Pulse Ox 98 09/17/17 06:30 Intake & Output 09/16/17 09/17/17 09/17/17 18:59 06:59 18:59 Intake Total 1014.891 931.667 341.946 Output Total 3390 3450 Balance -2375.109 -2518.333 341.946 Weight 86.8 kg 79.1 kg Intake: IV 376.0 559 Piperacillin-Tazobactam 3 100.0 265 .375 gm In Dextrose/Water 1 50ml.bag @ 12.5 mls/hr IVPB Q8HR [facility] Rx#: [id number] Pressure Bag 36 34 Sodium Chloride 0.9% 1, 240 260 000 ml @ 20 mls/hr IV . Q24H [facility] Rx#:[id number] Intake, IV Titration 598.891 332.667 341.946 Amount Amiodarone 450 mg In 250 Dextrose 5% in Water 250 ml @ 0.5 MG/MIN 16.66 mls /hr IV .Q15H1M [facility] Rx#: [id number] Diltiazem 125 mg In 88.166 82.667 Sodium Chloride 0.9% 100 ml @ 5 MG/HR 5 mls/hr IV .Q24H [facility] Rx#:[id number] Heparin Sod,Pork in 0.45% 261.978 341.946 NaCl 25,000 unit In 0.45 % NaCl 1 500ml.bag @ 12 UNITS/KG/HR 18.74 mls/hr IV .Q24H [facility] Rx#: [id number] Magnesium Sulfate-D5w Pmx 200 1 gm In Dextrose/Water 1 100ml.bag @ 100 mls/hr IVPB Q1H [facility] Rx#: [id number] Propofol 1,000 mg In 48.747 Empty Bag 1 bag @ Titrate IV .Q0M [facility] Rx#: [id number] Oral 40 Tube Feeding 10 Other 30 Output: Urine 3390 3450 Other: Voiding Method Indwelling Catheter Indwelling Catheter # Voids 0 ABP, PAP, CO, CI - Last Documented Arterial Blood Pressure 102/68 On examination is awake alert oriented HEENT exam no JVP neck is supple no facial asymmetry Lungs are clear to auscultation good air entry bilaterally. Heart sounds are unremarkable except for atrial fibrillation. No murmur rub gallop Abdomen soft nontender Extremity exam was no edema He has dry gangrene of his toes, on the left foot Neurologically awake alert oriented comfortable sitting in a chair - Labs CBC & Chem 7: 09/17/17 03:53 09/17/17 03:53 Labs: Abnormal Lab Results - Last 24 Hours (Table) 09/16/17 09/16/17 09/16/17 Range/Units 04:57 09:58 11:58 RBC (4.30-5.90) m/uL Hgb (13.0-17.5) gm/dL Hct (39.0-53.0) % MCHC (31.0-37.0) g/dL RDW (11.5-15.5) % APTT (22.0-30.0) sec ABG pCO2 34 L (35-45) mmHg ABG pO2 136 H (83-108) mmHg ABG O2 Saturation 100.0 H (94-97) % Potassium (3.5-5.1) mmol/L Carbon Dioxide 21 L (22-30) mmol/L BUN 22 H (9-20) mg/dL Creatinine (0.66-1.25) mg/dL POC Glucose (mg/dL) 123 H (75-99) mg/dL AST (17-59) U/L ALT 137 H (21-72) U/L Total Protein 5.7 L (6.3-8.2) g/dL Albumin 2.7 L (3.5-5.0) g/dL 09/16/17 09/17/17 09/17/17 Range/Units 12:54 03:53 03:53 RBC 3.74 L (4.30-5.90) m/uL Hgb 10.3 L (13.0-17.5) gm/dL Hct 35.4 L (39.0-53.0) % MCHC 29.1 L (31.0-37.0) g/dL RDW 16.3 H (11.5-15.5) % APTT 67.6 H 94.4 H (22.0-30.0) sec ABG pCO2 (35-45) mmHg ABG pO2 (83-108) mmHg ABG O2 Saturation (94-97) % Potassium (3.5-5.1) mmol/L Carbon Dioxide (22-30) mmol/L BUN (9-20) mg/dL Creatinine (0.66-1.25) mg/dL POC Glucose (mg/dL) (75-99) mg/dL AST (17-59) U/L ALT (21-72) U/L Total Protein (6.3-8.2) g/dL Albumin (3.5-5.0) g/dL 09/17/17 Range/Units 03:53 RBC (4.30-5.90) m/uL Hgb (13.0-17.5) gm/dL Hct (39.0-53.0) % MCHC (31.0-37.0) g/dL RDW (11.5-15.5) % APTT (22.0-30.0) sec ABG pCO2 (35-45) mmHg ABG pO2 (83-108) mmHg ABG O2 Saturation (94-97) % Potassium 3.3 L (3.5-5.1) mmol/L Carbon Dioxide (22-30) mmol/L BUN (9-20) mg/dL Creatinine 1.30 H (0.66-1.25) mg/dL POC Glucose (mg/dL) (75-99) mg/dL AST 79 H (17-59) U/L ALT 145 H (21-72) U/L Total Protein 6.0 L (6.3-8.2) g/dL Albumin 3.0 L (3.5-5.0) g/dL Microbiology - Last 24 Hours (Table) 09/15/17 12:40 Urine Culture - Final Urine,Catheterized 09/15/17 12:22 Blood Culture - Preliminary Blood No Growth after 24 hours 09/14/17 20:31 Nasal Screen MRSA/MSSA ([facility]) - Final Nasopharyngeal Swab 09/11/17 10:12 Blood Culture - Preliminary Blood No Growth after 120 hours Assessment and Plan Assessment: Impression. 1. Acute kidney injury from congestive heart failure, mitral valve regurgitation, atrial fibrillation. Responding to current treatment regimen. Creatinine down to 1.2 yesterday but up slightly to 1.3 this morning. Patient is euvolemic currently. 2. Mild degree of non-gap acidosis from acute kidney injury. Bicarb is 26 and normal and resolved acidosis 3. Respiratory failure was vent dependent extubated yesterday to 2017 and currently on room air today 09/17/2017 . 4. Congestive heart failure on chest x-ray, improved today and resolved to 2079. 5. Mitral valve regurgitation. 6. Gangrene off left great toe and second toe. 7. Hypokalemia with potassium of 3.3 secondary to diuretics. Recommendation. 1. Use Lasix judiciously. No need for any Lasix today. 2. Replace potassium 40 mEq. Referral oral but if he has been given IV the neck just the total dose to be 40 mEq. 3. DC Beaulieu catheter but maintain strict I's and O's. 4. Mild elevation of liver enzymes again after having improved, continue to watch
--- NOTE | 2017-09-17 09:40 | P.PN ---
Subjective Progress Note Date: 09/17/17 Principal diagnosis: Severe mitral valve regurgitation. Previous history of chronic persistent atrial fibrillation on Eliquis for anticoagulation, depression, peripheral artery disease, chronic nicotine dependence, chronic kidney disease stage III, hypertension, coronary artery disease with previous stent placement, GERD, and hypothyroidism. This 62-year-old gentleman presented to [facility] on 09/05/2017 with complaints of left foot pain and swelling, mainly to his left great toe after previous trauma. He was admitted for further treatment and evaluation. Subsequently he became unresponsive, bradycardic, and hypotensive. He was quickly intubated and taken to the intensive care unit for hemodynamic monitoring. He developed a lactic acidosis. In addition he developed atrial fibrillation. He was extubated, placed on BiPAP, and subsequently reintubated a few days later. A 2-D echocardiogram was completed which demonstrated normal left ventricular function with an ejection fraction between 55-60%, moderate aortic insufficiency, severe mitral regurgitation, mild tricuspid regurgitation. He then had a bedside transesophageal echocardiogram which demonstrated severe mitral valve regurgitation with a flail anterior leaflet, mild aortic insufficiency and severely impaired left ventricular function with an ejection fraction of 30-35%. Left heart catheterization was performed yesterday with no significant coronary stenosis. Cardiothoracic surgery was consulted for surgical repair of the patient's mitral valve. Patient's currently sitting up in a recliner in no acute distress. Denies any pain or shortness of breath. Was successfully extubated yesterday at 10:30 in the morning. Preoperative teaching initiated. Objective - Vital Signs Vital signs: Vital Signs Temp 98.8 F 09/17/17 09:00 Pulse 116 H 09/17/17 09:00 Resp 24 09/17/17 09:00 BP 111/76 09/17/17 09:00 Pulse Ox 98 09/17/17 08:30 Intake & Output 09/16/17 09/17/17 09/17/17 18:59 06:59 18:59 Intake Total 1014.891 931.667 587.946 Output Total 3390 3450 300 Balance -2375.109 -2518.333 287.946 Weight 86.8 kg 79.1 kg Intake: IV 376.0 559 46 Piperacillin-Tazobactam 3 100.0 265 .375 gm In Dextrose/Water 1 50ml.bag @ 12.5 mls/hr IVPB Q8HR [facility] Rx#: [id number] Pressure Bag 36 34 6 Sodium Chloride 0.9% 1, 240 260 40 000 ml @ 20 mls/hr IV . Q24H [facility] Rx#:[id number] Intake, IV Titration 598.891 332.667 541.946 Amount Amiodarone 450 mg In 250 Dextrose 5% in Water 250 ml @ 0.5 MG/MIN 16.66 mls /hr IV .Q15H1M [facility] Rx#: [id number] Diltiazem 125 mg In 88.166 82.667 Sodium Chloride 0.9% 100 ml @ 5 MG/HR 5 mls/hr IV .Q24H [facility] Rx#:[id number] Heparin Sod,Pork in 0.45% 261.978 341.946 NaCl 25,000 unit In 0.45 % NaCl 1 500ml.bag @ 12 UNITS/KG/HR 18.74 mls/hr IV .Q24H [facility] Rx#: [id number] Magnesium Sulfate-D5w Pmx 200 1 gm In Dextrose/Water 1 100ml.bag @ 100 mls/hr IVPB Q1H [facility] Rx#: [id number] Magnesium Sulfate-D5w Pmx 100 1 gm In Dextrose/Water 1 100ml.bag @ 100 mls/hr IVPB Q1H [facility] Rx#: [id number] Potassium Chloride 20 meq 100 In Water For Injection 1 100ml.bag @ 50 mls/hr IVPB ONCE ONE Rx#: [id number] Propofol 1,000 mg In 48.747 Empty Bag 1 bag @ Titrate IV .Q0M [facility] Rx#: [id number] Oral 40 Tube Feeding 10 Other 30 Output: Urine 3390 3450 300 Other: Voiding Method Indwelling Catheter Indwelling Catheter # Voids 0 # Bowel Movements 0 ABP, PAP, CO, CI - Last Documented Arterial Blood Pressure 115/63 - Constitutional General appearance: Present: cooperative, no acute distress - Respiratory Details: Sounds diminished bilaterally. Respirations even, nonlabored. Currently on 5 L nasal cannula with oxygen saturation 98%. Able to achieve 1250 mL on his incentive spirometry. - Cardiovascular Details: S1, S2 present. Irregular, tachycardic rate and rhythm, atrial fibrillation on telemetry with heart rates running from high 90s to low 120s. Palpable peripheral pulses bilaterally. No edema present. No calf pain or tenderness noted. SCDs present. - Gastrointestinal Gastrointestinal Comment(s): Abdomen soft, nontender, nondistended. Active bowel sounds 4 quadrants. Tolerating diet. - Genitourinary Genitourinary Comment(s): Beaulieu present draining clear, yellow urine. Urine output 75-575 mL per hour overnight. - Integumentary Integumentary Comment(s): Skin is warm and dry. Left big toe with dry gangrene. - Neurologic Neurologic: Present: CNII-XII intact - Musculoskeletal Musculoskeletal: Present: generalized weakness, strength equal bilaterally - Psychiatric Psychiatric: Present: A&O x's 3, appropriate affect, intact judgment & insight - Allied health notes Allied health notes reviewed: nursing - Labs CBC & Chem 7: 09/17/17 03:53 09/17/17 03:53 Labs: Abnormal Lab Results - Last 24 Hours (Table) 09/16/17 09/16/17 09/16/17 Range/Units 04:57 09:58 11:58 RBC (4.30-5.90) m/uL Hgb (13.0-17.5) gm/dL Hct (39.0-53.0) % MCHC (31.0-37.0) g/dL RDW (11.5-15.5) % APTT (22.0-30.0) sec ABG pCO2 34 L (35-45) mmHg ABG pO2 136 H (83-108) mmHg ABG O2 Saturation 100.0 H (94-97) % Potassium (3.5-5.1) mmol/L Carbon Dioxide 21 L (22-30) mmol/L BUN 22 H (9-20) mg/dL Creatinine (0.66-1.25) mg/dL POC Glucose (mg/dL) 123 H (75-99) mg/dL AST (17-59) U/L ALT 137 H (21-72) U/L Total Protein 5.7 L (6.3-8.2) g/dL Albumin 2.7 L (3.5-5.0) g/dL 09/16/17 09/17/17 09/17/17 Range/Units 12:54 03:53 03:53 RBC 3.74 L (4.30-5.90) m/uL Hgb 10.3 L (13.0-17.5) gm/dL Hct 35.4 L (39.0-53.0) % MCHC 29.1 L (31.0-37.0) g/dL RDW 16.3 H (11.5-15.5) % APTT 67.6 H 94.4 H (22.0-30.0) sec ABG pCO2 (35-45) mmHg ABG pO2 (83-108) mmHg ABG O2 Saturation (94-97) % Potassium (3.5-5.1) mmol/L Carbon Dioxide (22-30) mmol/L BUN (9-20) mg/dL Creatinine (0.66-1.25) mg/dL POC Glucose (mg/dL) (75-99) mg/dL AST (17-59) U/L ALT (21-72) U/L Total Protein (6.3-8.2) g/dL Albumin (3.5-5.0) g/dL 09/17/17 Range/Units 03:53 RBC (4.30-5.90) m/uL Hgb (13.0-17.5) gm/dL Hct (39.0-53.0) % MCHC (31.0-37.0) g/dL RDW (11.5-15.5) % APTT (22.0-30.0) sec ABG pCO2 (35-45) mmHg ABG pO2 (83-108) mmHg ABG O2 Saturation (94-97) % Potassium 3.3 L (3.5-5.1) mmol/L Carbon Dioxide (22-30) mmol/L BUN (9-20) mg/dL Creatinine 1.30 H (0.66-1.25) mg/dL POC Glucose (mg/dL) (75-99) mg/dL AST 79 H (17-59) U/L ALT 145 H (21-72) U/L Total Protein 6.0 L (6.3-8.2) g/dL Albumin 3.0 L (3.5-5.0) g/dL Microbiology - Last 24 Hours (Table) 09/15/17 12:40 Urine Culture - Final Urine,Catheterized 09/15/17 12:22 Blood Culture - Preliminary Blood No Growth after 24 hours 09/14/17 20:31 Nasal Screen MRSA/MSSA ([facility]) - Final Nasopharyngeal Swab 09/11/17 10:12 Blood Culture - Preliminary Blood No Growth after 120 hours Assessment and Plan (1) Acute and chronic respiratory failure with hypoxia Current Visit: Yes Status: Acute Code(s): J96.21 - ACUTE AND CHRONIC RESPIRATORY FAILURE WITH HYPOXIA SNOMED Code(s): 13574144 (2) COPD (chronic obstructive pulmonary disease) Current Visit: Yes Status: Chronic Code(s): J44.9 - CHRONIC OBSTRUCTIVE PULMONARY DISEASE, UNSPECIFIED SNOMED Code(s): 15797457 (3) Chronic kidney disease, stage III (moderate) Current Visit: Yes Status: Chronic Code(s): N18.3 - CHRONIC KIDNEY DISEASE, STAGE 3 (MODERATE) SNOMED Code(s): 675758783 (4) Gangrenous toe Current Visit: Yes Status: Chronic Code(s): I96 - GANGRENE, NOT ELSEWHERE CLASSIFIED SNOMED Code(s): 084530565 (5) History of bradycardia Current Visit: No Status: Resolved Code(s): Z86.79 - PERSONAL HISTORY OF OTHER DISEASES OF THE CIRCULATORY SYSTEM SNOMED Code(s): 736983709526621 (6) History of coronary artery disease Current Visit: No Status: Resolved Code(s): Z86.79 - PERSONAL HISTORY OF OTHER DISEASES OF THE CIRCULATORY SYSTEM SNOMED Code(s): 957402117 (7) History of depression Current Visit: Yes Status: Chronic Code(s): Z86.59 - PERSONAL HISTORY OF OTHER MENTAL AND BEHAVIORAL DISORDERS SNOMED Code(s): 596464219 (8) Hypertension Current Visit: Yes Status: Chronic Code(s): I10 - ESSENTIAL (PRIMARY) HYPERTENSION SNOMED Code(s): 05898773 (9) Hypothyroidism Current Visit: Yes Status: Chronic Code(s): E03.9 - HYPOTHYROIDISM, UNSPECIFIED SNOMED Code(s): 58868463 (10) Peripheral vascular disease Current Visit: Yes Status: Chronic Code(s): I73.9 - PERIPHERAL VASCULAR DISEASE, UNSPECIFIED SNOMED Code(s): 103427162 (11) New onset a-fib Current Visit: Yes Status: Acute Code(s): I48.91 - UNSPECIFIED ATRIAL FIBRILLATION SNOMED Code(s): 05346623 Plan: 1. Plan is for mitral valve repair this admission, possibly Monday dependent on patient's status. 2. Wean O2 as tolerated. Encourage incentive spirometry use. 3. Continue heparin drip, Cardizem drip, amiodarone drip, aspirin, beta skylar. 4. Antibiotics, bronchodilators per pulmonology. 5. Avoid nephrotoxic agents, however patient will likely need CTA of the neck prior to surgery to evaluate left internal carotid artery. 6. Increase activity, ambulate as tolerated. PT/OT following. 7. Preoperative testing reviewed as results become available. 8. Patient has received dental clearance for valve surgery. 9. More recommendations to follow. Time with Patient: Greater than 30
[2017-09-17] MEDS: HYDROmorphone 0.5 MG/0.5 ML SYRINGE IVP PRN (09:43)
[2017-09-17] MEDS: PIPERACILLIN-TAZOBACTAM 3.375 GM in DEXTROSE/WATER 1 50ML.BAG IVPB SCH (09:43)
[2017-09-17] MEDS: MUPIROCIN 2% OINT 22 GM TUBE NASAL SCH ×2 (09:43→20:23)
--- NOTE | 2017-09-17 09:53 | P.PN ---
Subjective Progress Note Date: 09/17/17 Principal diagnosis: Respiratory failure Progress note dated 09/11/2017 This is a 62-year-old black male who was admitted on September 06. He apparently was initially admitted with a diagnosis of sepsis with a gangrenous toe. He started in the ER went to the general medical floor and 18 was called because of respiratory failure and acidosis. He that reason he was intubated on September 06 and transferred to the ICU. He was extubated initially on September 08 and then reintubated again on September 11. This was today at 4:00 in the morning. The patient's x-ray shows diffuse bilateral infiltrates worse on the right than on the left side. His current ventilator settings include the assist control mode, rate of 12, an FiO2 of 70%, tidal Byam of 500, PEEP of 10. Arterial blood gases show a PaO2 of 88 a PaCO2 of 37 and a pH of 7.36. His current IVs include a saline IV at 20 mL an hour, heparin via weightbase protocol for atrial fibrillation propofol at 35 mics per kilogram per minute and Cordarone at 0.5 mg/m. The patient's x-rays labs medications are all reviewed. Microbiology is all negative. I asked the nurse to resume his tube feeds. Progress note dated September 12 2017 62-year-old black male who was admitted on September 06. He apparently was initially admitted with a diagnosis of sepsis with a gr gangrenous toe. He started in the ER want to the general medical floor and a rapid response was called because of respiratory failure and severe acidosis. He was intubated on September 06 and transferred to the intensive care unit. He was initially extubated on September 08 and then reintubated again on September 11. That was at 4 :00 in the morning. My partner was called. His chest x-ray yesterday showed diffuse bilateral pulmonary infiltrates worse on the right than on the left. We made some changes yesterday. The patient's chest x-ray today is much improved suggesting that he has mostly pulmonary edema/heart failure. In fact, the echocardiogram did reveal evidence of severe mitral regurgitation. The patient clinically is much better today. We are going to have the vascular service surgeon see him about the great toe. Likely, thoracic surgery would not want to do anything if there was active infection. The patient's FiO2 was dropped from 50-40%. In addition, we'll be able to make some significant PEEP changes today.His current vent settings are the assist control mode rate of 22 tidal volume 400 FiO2 40% and PEEP of 13. The PEEP can probably be dropped down from 13-10 later today. Arterial blood gases show a PaO2 of 177 a PaCO2 of 41 and a pH of 7.35. His is consistent with a very mild metabolic acidosis. The patient's on heparin via weightbase protocol, propofol at 45 mics per kilogram per minute dopamine which is currently off started earlier this morning for bradycardia a saline IV at 20 mL an hour and vital high protein at 56 with a goal of 56 mL per hour. Progress note dated 09/13/2017 62-year-old black male who was admitted on September 06. He was initially admitted with a diagnosis of sepsis with a gangrenous toe. He was initially admitted from the ER to the general medical floor and then subsequent to that a rapid response was called because of respiratory failure and severe metabolic acidosis. He was intubated later on September 06 and was transferred to the ICU. He was initially extubated on and then reintubated again early in the morning of September 11 for respiratory failure. His chest x-ray showing waxing waning diffuse bilateral pulmonary infiltrates. These infiltrates, likely represent heart failure, but could also relate to pneumonia/ acute lung injury. The patient's echocardiogram did reveal severe mitral regurgitation. Cardiology is looking into that. Also, we have vascular surgeon looking at the gangrenous toe. The patient's FiO2 was dropped from 50 to 40%. In addition, the PEEP was dropped recently from 13-10 8. Arterial blood gases are reviewed. He is on the assist control mode with a rate of 22. Tidal Byam is 400. Other than that, the patient seems to be doing about the same. I did speak to the infectious disease retirement sales consultant as well as a cardiology consult about this patient. Progress note dated 09/14/2017 62-year-old black male who was admitted back on September 06. He was initially admitted with a diagnosis of sepsis and a gangrenous toe. Vascular surgery saw the patient yesterday and determined that he had dry gangrene and no debridement or amputation was necessary. The patient was initially admitted from the emergency room to the general medical floor and subsequent to that a rapid response team was called because of respiratory failure and severe metabolic acidosis. He was moved he was intubated later on September 06 and was transferred to the ICU. The patient was then initially extubated on September 08 and the reintubated again early in the morning on September for respiratory failure. His pattern has been that of flash pulmonary edema although, acute lung injury/nosocomial pneumonia, could not be excluded. Mostly though, we believe it relates to heart failure from a case of severe mitral regurgitation. The patient underwent transesophageal echocardiogram this morning and was determined to have severe mitral regurgitation and thought to have an ejection fraction of 25%. He is scheduled for heart catheterization on September 15 and the patient will be seen by cardiothoracic surgery. Currently he is on IV heparin via weightbase protocol propofol at 45 mics per kilogram per minute, Cordarone at 0.5 mg/m Cardizem drip at 10 mg an hour saline IV at 20 mL an hour and vital high protein at 56 mL an hour with a goal of 56. The patient's vent settings include the assist control mode rate of 22 tidal volume of 400 FiO2 40% and PEEP of 5. Blood gases show a PaO2 of 103 a PaCO2 of 36 and a pH 7.45. This is consistent with mild respiratory alkalosis. The patient probably could be extubated. But because she is having a heart cath tomorrow, my inclination is to keep monitoring ventilator until then. Progress note dated 09/15/2017 62-year-old black male admitted back on September 06. The patient was initially admitted with a diagnosis of sepsis and a gangrenous toe. Vascular surgery seems to think that the toe represents dry gangrene and no additional debridement or amputation is necessary. The patient initially presented to the emergency room with an into the general medical floor. A rapid response was called. The patient developed respiratory failure and severe metabolic acidosis. He was moved to the ICU and intubated on September 06. He was extubated initially on in the reintubated early in the morning on September 11 for respiratory failure. His pattern has been that of a flash pulmonary edema. The patient also may be having a component of acute lung injury/nosocomial pneumonia. Anyway, the pulmonary edema is likely related mostly to card and myopathy as well as severe mitral regurgitation. The patient had a transesophageal echocardiogram yesterday and is going for cardiac catheterization today. The patient was maintained on mechanical ventilator because he was going for catheterization today. Hopefully, we can get him extubated later today. This depends on what is done. Currently, the patient's on the ventilator with the assist control mode rate of 22 breathing 24 times a minute, tidal volume of 400 FiO2 40% PEEP of 5. Arterial blood gases show a PaO2 of 98 a PaCO2 of 35 and a pH of 7.41. The patient's on a saline IV at KVO heparin is been turned off the Cardizem drip is running at 10 mg an hour and tube feeds are on hold. The patient's chest x-ray reveals some mild fluid overload. All in all though, the patient's much more stable. I have been turned to the family all along the fact, the family member is one of my primary patient to my office. This is the patient's nephew. Progress note dated 09/16/2017 62-year-old black male status post respiratory failure. The patient was extubated this morning. The patient had excellent weaning parameters and blood gases. We attempted yesterday to extubate the patient but he really wasn't ready for extubation. We did extubate him to BiPAP. He is on BiPAP at 12 and 5 and 40%. The patient was initially admitted back on September 06 with an episode of sepsis and a gangrenous toe. Because of worsening respiratory status , on the general medical floor, a rapid response team was called. The patient' s respiratory failure led him to be intubated and transferred to the ICU on September 06. He was initially extubated on seb second and reintubated on the morning of September 11. He is finally extubated today on September 16. The patient had a transesophageal echocardiogram which suggested poor cardiac function with an ejection fraction to be estimated at 20-25% and severe mitral regurgitation. The patient subsequently had a cardiac cardiac catheterization which revealed no evidence of coronary artery disease and again severe mitral regurgitation. The patient is apparently going to have a mitral valve replacement/repair done midweek by one of the cardiothoracic surgeons. Currently, the patient's on BiPAP at 12 and 5 and 40%. His chest x-ray shows fluid overload so he'll get some additional Lasix. His IV is a saline IV at KVO a Cardizem drip at 5 mg an hour Cordarone at 0.5 mL/m heparin via weightbase protocol and his tube feeds are currently off. He seemed pretty comfortable and there. Progress note dated 09/17/2017 62-year-old white male status post respiratory failure. He was extubated a couple days ago. Doing relatively well. The patient will likely have mitral valve repair/replacement midweek. The patient currently is just on some nasal O2. The patient had an uneventful night. The patient has no complaints today. The patient was initially admitted back on September 06 with an episode of respiratory failure. I rapid response team was called and the patient's respiratory failure led to intubation and transferred to the intensive care unit on September 06. He was initially extubated on September 08 and reintubated on the morning of . He was finally extubated on September 16. He had a transesophageal echocardiogram which showed severe mitral regurgitation. He sought to have an ejection fraction of about 20-25%. According to cardiac catheterization revealed no significant coronary disease. Again, planning to have mitral valve repair/replacement done midweek. Other than that, the patient is doing reasonably well. Objective - Vital Signs Vital signs: Vital Signs Temp 98.8 F 09/17/17 09:00 Pulse 116 H 09/17/17 09:00 Resp 24 09/17/17 09:00 BP 111/76 09/17/17 09:00 Pulse Ox 98 09/17/17 08:30 Intake & Output 09/16/17 09/17/17 09/17/17 18:59 06:59 18:59 Intake Total 1014.891 931.667 587.946 Output Total 3390 3450 300 Balance -2375.109 -2518.333 287.946 Weight 86.8 kg 79.1 kg Intake: IV 376.0 559 46 Piperacillin-Tazobactam 3 100.0 265 .375 gm In Dextrose/Water 1 50ml.bag @ 12.5 mls/hr IVPB Q8HR AJ Rx#: [id number] Pressure Bag 36 34 6 Sodium Chloride 0.9% 1, 240 260 40 000 ml @ 20 mls/hr IV . Q24H AJ Rx#:[id number] Intake, IV Titration 598.891 332.667 541.946 Amount Amiodarone 450 mg In 250 Dextrose 5% in Water 250 ml @ 0.5 MG/MIN 16.66 mls /hr IV .Q15H1M AJ Rx#: [id number] Diltiazem 125 mg In 88.166 82.667 Sodium Chloride 0.9% 100 ml @ 5 MG/HR 5 mls/hr IV .Q24H [facility] Rx#:[id number] Heparin Sod,Pork in 0.45% 261.978 341.946 NaCl 25,000 unit In 0.45 % NaCl 1 500ml.bag @ 12 UNITS/KG/HR 18.74 mls/hr IV .Q24H [facility] Rx#: [id number] Magnesium Sulfate-D5w Pmx 200 1 gm In Dextrose/Water 1 100ml.bag @ 100 mls/hr IVPB Q1H [facility] Rx#: [id number] Magnesium Sulfate-D5w Pmx 100 1 gm In Dextrose/Water 1 100ml.bag @ 100 mls/hr IVPB Q1H [facility] Rx#: [id number] Potassium Chloride 20 meq 100 In Water For Injection 1 100ml.bag @ 50 mls/hr IVPB ONCE ONE Rx#: [id number] Propofol 1,000 mg In 48.747 Empty Bag 1 bag @ Titrate IV .Q0M [facility] Rx#: [id number] Oral 40 Tube Feeding 10 Other 30 Output: Urine 3390 3450 300 Other: Voiding Method Indwelling Catheter Indwelling Catheter # Voids 0 # Bowel Movements 0 ABP, PAP, CO, CI - Last Documented Arterial Blood Pressure 115/63 - Exam No acute distress, currently on nasal O2.. HEENT examination is grossly unremarkable. Mucous membranes are moist. No oral lesions. Neck supple. Full range of motion. No adenopathy thyromegaly or neck vein distention. Cardiovascular examination reveals irregular rhythm rate. S1-S2 normal. No S3 or S4. Soft murmur is heard now the patient's extubated. Lungs reveal coarse bilateral breath sounds. Breath sounds are diminished. Mild bibasilar crackles. Breath sounds are diminished more on the right side than the left. Abdomen soft bowel sounds are heard. No masses or tenderness. Extremities are intact. No cyanosis clubbing or edema. Skin is without rash or lesion. Neurologic examination could not be performed. - Labs CBC & Chem 7: 09/17/17 03:53 09/17/17 03:53 Labs: Abnormal Lab Results - Last 24 Hours (Table) 09/16/17 09/16/17 09/16/17 Range/Units 04:57 09:58 11:58 RBC (4.30-5.90) m/uL Hgb (13.0-17.5) gm/dL Hct (39.0-53.0) % MCHC (31.0-37.0) g/dL RDW (11.5-15.5) % APTT (22.0-30.0) sec ABG pCO2 34 L (35-45) mmHg ABG pO2 136 H (83-108) mmHg ABG O2 Saturation 100.0 H (94-97) % Potassium (3.5-5.1) mmol/L Carbon Dioxide 21 L (22-30) mmol/L BUN 22 H (9-20) mg/dL Creatinine (0.66-1.25) mg/dL POC Glucose (mg/dL) 123 H (75-99) mg/dL AST (17-59) U/L ALT 137 H (21-72) U/L Total Protein 5.7 L (6.3-8.2) g/dL Albumin 2.7 L (3.5-5.0) g/dL 09/16/17 09/17/17 09/17/17 Range/Units 12:54 03:53 03:53 RBC 3.74 L (4.30-5.90) m/uL Hgb 10.3 L (13.0-17.5) gm/dL Hct 35.4 L (39.0-53.0) % MCHC 29.1 L (31.0-37.0) g/dL RDW 16.3 H (11.5-15.5) % APTT 67.6 H 94.4 H (22.0-30.0) sec ABG pCO2 (35-45) mmHg ABG pO2 (83-108) mmHg ABG O2 Saturation (94-97) % Potassium (3.5-5.1) mmol/L Carbon Dioxide (22-30) mmol/L BUN (9-20) mg/dL Creatinine (0.66-1.25) mg/dL POC Glucose (mg/dL) (75-99) mg/dL AST (17-59) U/L ALT (21-72) U/L Total Protein (6.3-8.2) g/dL Albumin (3.5-5.0) g/dL 09/17/17 Range/Units 03:53 RBC (4.30-5.90) m/uL Hgb (13.0-17.5) gm/dL Hct (39.0-53.0) % MCHC (31.0-37.0) g/dL RDW (11.5-15.5) % APTT (22.0-30.0) sec ABG pCO2 (35-45) mmHg ABG pO2 (83-108) mmHg ABG O2 Saturation (94-97) % Potassium 3.3 L (3.5-5.1) mmol/L Carbon Dioxide (22-30) mmol/L BUN (9-20) mg/dL Creatinine 1.30 H (0.66-1.25) mg/dL POC Glucose (mg/dL) (75-99) mg/dL AST 79 H (17-59) U/L ALT 145 H (21-72) U/L Total Protein 6.0 L (6.3-8.2) g/dL Albumin 3.0 L (3.5-5.0) g/dL Microbiology - Last 24 Hours (Table) 09/15/17 12:40 Urine Culture - Final Urine,Catheterized 09/15/17 12:22 Blood Culture - Preliminary Blood No Growth after 24 hours 09/14/17 20:31 Nasal Screen MRSA/MSSA ([facility]) - Final Nasopharyngeal Swab 09/11/17 10:12 Blood Culture - Preliminary Blood No Growth after 120 hours Assessment and Plan Assessment: Assessment Acute hypoxemic respiratory failure secondary to sepsis/septic shock with a gangrenous toe and underlying cellulitis. Possible bilateral nosocomial pneumonia vs. acute lung injury Atrial fibrillation/RVR Congestive heart failure, secondary to severe mitral regurgitation and cardiomyopathy with an ejection fraction of 25% Intermittent sinus bradycardia History of CAD with previous stent placement History of COPD History of essential hypertension History of depression Peripheral vascular occlusive disease Hypothyroidism Hypertensive nephrosclerosis with chronic kidney disease, stage III Acute cellulitis and dry gangrene of the left big toe, status post debridement Plan: Plan dated 09/11/2017 The patient developed acute respiratory failure early this morning. My partner was called. He was reintubated. I'll make a slight change in the vent settings. We'll go with a low titer volume strategy. We'll drop a tidal volume from 500-400. We'll bump the rate from 16-24. PEEP will be increased from 10-13. I will review the labs x-rays a medications. We'll resume tube feeds. Prognosis is poor. Additional recommendations and suggestions are forthcoming. Plan dated 09/12/2017 Vascular surgery will come in to see the patient today.Labs x-rays a medications are all reviewed. The dopamine is now off. It was started for bradycardia. The patient's FiO2 was dropped from 50-40%. Likely will be able to make some PEEP changes as well. Chest x-ray is dramatically improved. We' ll continue to follow closely. Prognosis is guarded. The mitral valve issue is certainly likely the cause of the patient's flash pulmonary edema. He may even have mitral valve endocarditis. Plan dated 09/13/2017 The patient was seen by vascular surgery this morning. The surgeon feels like this is a dry gangrene and nothing active going on and no additional debridement or amputation is required. We'll let the infectious disease doctor know. The PEEP was dropped from 10 to 8. Gases are reviewed. His P/F ratio is 235 indicating mild ARDS. The chest x-ray is improved. Most of his issues in the lungs related to congestive heart failure because of the severe mitral regurgitation. We'll talk to cardiology about a CLARE as well as thoracic surgery about possible mitral valve repair/replacement. Plan dated 09/14/2017 The patient had his transesophageal echocardiogram today. His ejection fraction was estimated at 25% and he has severe mitral regurgitation. The patient scheduled for heart catheterization tomorrow. The patient will be maintained on the ventilator since then. Blood gases are reasonable. Chest x- rays improved although he did still has a pattern of some mild fluid overload. The patient remains on IV heparin via weightbase protocol propofol Cordarone and Cardizem and his tube feeds. Overall prognosis is poor. We'll continue to watch patient very closely. Additional recommendations and suggestions are forthcoming. Plan dated 09/15/2017 The patient is scheduled for a cardiac catheterization this morning. He had a transesophageal echocardiogram yesterday. His estimated ejection fraction was only 20-25% and he has Severe mitral regurgitation. The patient is maintained on mechanical ventilator. Labs x-rays a medications are all reviewed. No additional recommendations are made. Prognosis is guarded. We'll continue to follow closely. Plan dated 09/16/2017 The patient's of doing reasonably well. He was extubated this morning. His weaning parameters blood gases and so forth were all excellent. He passes cuff leak test. He maintains on Cardizem drip at 5 mg an hour amiodarone 0.5 mg/m and heparin via weightbase protocol. 2 feeds off. Ready to give him some additional Lasix. We'll watch him very closely. The plan is to do mitral valve repair/replacement midweek. Plan dated 09/17/2017 The patient's labs medications and x-rays are all reviewed. The patient's x- ray has significantly improved. He did receive some diuretics yesterday. The patient will need his carotid evaluated. He'll be gently hydrated for that. The patient still having atrial fibrillation. Currently on nasal O2. The patient looks much better today than he has since had been seeing him in the last the plan is mitral valve repair/replacement midweek. No additional recommendations are made. Time with Patient: Greater than 30
[2017-09-17] MEDS: methylPREDNISolone SOD SUCCI 40 MG/ML 1 ML VIAL IV SCH (10:18)
[2017-09-17] MEDS: FUROSEMIDE 20 MG TAB PO SCH (10:18)
[2017-09-17] MEDS: METOPROLOL TARTRATE 50 MG TAB PO SCH (10:18)
--- NOTE | 2017-09-17 12:56 | P.PN ---
Subjective Progress Note Date: 09/17/17 This patient remains intubated and sedated. Patient is in atrial fibrillation now. Rate is controlled with combination of Cardizem and amiodarone. Patient was seen by Dr. Addison and felt that is a ganglion the left foot is stable and doesn't need any surgical intervention. I spoke with Dr. Godoy regarding evaluation of hi mitral regurgitation and is going to do CLARE tomorrow morning. He is going to keep him intubated until the CLARE is performed. If necessary we' ll get a consult from the cardiac surgeons. Meanwhile patient will stay on current medical therapy. Progress note for 09/16/2017: This patient still having a intermittent bouts of atrial fibrillation alternating with bradycardia and he converts into sinus rhythm. Patient is on amiodarone and also Cardizem drip and bolus of metoprolol. Pulmonary is trying to wean him off the respirator. Cardiac surgeons apparently cannot do the surgery for several days. His cardiac catheterization revealed evidence of significant mitral regurg with an ejection fraction of 50-55%. No significant obstructive coronary artery disease noted. Prognosis is guarded. Progress note for 09/17/2017: This patient was extubated yesterday. He is alert and oriented and doesn't appear to be in acute distress. He is in atrial fibrillation with moderately rapid ventricular response. Denies any chest pain. Examination the heart reveals irregular heart rhythm with murmur at the apex. Lungs show good air entry. Waiting to have mitral valve repair on Monday. Objective - Vital Signs Vital signs: Vital Signs Temp 98.0 F 09/17/17 12:00 Pulse 127 H 09/17/17 12:30 Resp 22 09/17/17 12:00 BP 111/76 09/17/17 10:30 Pulse Ox 94 L 09/17/17 12:30 Intake & Output 09/16/17 09/17/17 09/17/17 18:59 06:59 18:59 Intake Total 1014.891 931.667 756.946 Output Total 3390 3450 6189 Balance -2375.109 -2518.333 -323.054 Weight 86.8 kg 79.1 kg Intake: IV 376.0 559 115 Piperacillin-Tazobactam 3 100.0 265 .375 gm In Dextrose/Water 1 50ml.bag @ 12.5 mls/hr IVPB Q8HR [facility] Rx#: [id number] Pressure Bag 36 34 15 Sodium Chloride 0.9% 1, 240 260 100 000 ml @ 20 mls/hr IV . Q24H [facility] Rx#:[id number] Intake, IV Titration 598.891 332.667 641.946 Amount Amiodarone 450 mg In 250 Dextrose 5% in Water 250 ml @ 0.5 MG/MIN 16.66 mls /hr IV .Q15H1M [facility] Rx#: [id number] Diltiazem 125 mg In 88.166 82.667 Sodium Chloride 0.9% 100 ml @ 5 MG/HR 5 mls/hr IV .Q24H [facility] Rx#:[id number] Heparin Sod,Pork in 0.45% 261.978 341.946 NaCl 25,000 unit In 0.45 % NaCl 1 500ml.bag @ 12 UNITS/KG/HR 18.74 mls/hr IV .Q24H [facility] Rx#: [id number] Magnesium Sulfate-D5w Pmx 200 1 gm In Dextrose/Water 1 100ml.bag @ 100 mls/hr IVPB Q1H [facility] Rx#: [id number] Magnesium Sulfate-D5w Pmx 200 1 gm In Dextrose/Water 1 100ml.bag @ 100 mls/hr IVPB Q1H [facility] Rx#: [id number] Potassium Chloride 20 meq 100 In Water For Injection 1 100ml.bag @ 50 mls/hr IVPB ONCE ONE Rx#: [id number] Propofol 1,000 mg In 48.747 Empty Bag 1 bag @ Titrate IV .Q0M [facility] Rx#: [id number] Oral 40 Tube Feeding 10 Other 30 Output: Urine 3390 3450 1080 Other: Voiding Method Indwelling Catheter Indwelling Catheter Indwelling Catheter # Voids 0 # Bowel Movements 0 ABP, PAP, CO, CI - Last Documented Arterial Blood Pressure 117/66 - Exam GENERAL EXAM: Patient is alert and oriented HEENT: Normocephalic. N CHEST: No chest wall deformity. LUNGS: Diminished breath sounds HEART: S1 and S2 normal ABDOMEN: No hepatosplenomegaly, normal bowel sounds, no guarding or rigidity. SKIN: No rashes CENTRAL NERVOUS SYSTEM: No focal deficits. EXTREMITIES: Dry gangrenous changes on the left foot - Labs CBC & Chem 7: 09/17/17 03:53 09/17/17 03:53 Labs: Abnormal Lab Results - Last 24 Hours (Table) 09/16/17 09/17/17 09/17/17 Range/Units 12:54 03:53 03:53 RBC 3.74 L (4.30-5.90) m/uL Hgb 10.3 L (13.0-17.5) gm/dL Hct 35.4 L (39.0-53.0) % MCHC 29.1 L (31.0-37.0) g/dL RDW 16.3 H (11.5-15.5) % APTT 67.6 H 94.4 H (22.0-30.0) sec Potassium (3.5-5.1) mmol/L Creatinine (0.66-1.25) mg/dL AST (17-59) U/L ALT (21-72) U/L Total Protein (6.3-8.2) g/dL Albumin (3.5-5.0) g/dL 09/17/17 Range/Units 03:53 RBC (4.30-5.90) m/uL Hgb (13.0-17.5) gm/dL Hct (39.0-53.0) % MCHC (31.0-37.0) g/dL RDW (11.5-15.5) % APTT (22.0-30.0) sec Potassium 3.3 L (3.5-5.1) mmol/L Creatinine 1.30 H (0.66-1.25) mg/dL AST 79 H (17-59) U/L ALT 145 H (21-72) U/L Total Protein 6.0 L (6.3-8.2) g/dL Albumin 3.0 L (3.5-5.0) g/dL Microbiology - Last 24 Hours (Table) 09/11/17 10:12 Blood Culture - Final Blood No Growth after 144 hours 09/15/17 12:40 Urine Culture - Final Urine,Catheterized 09/15/17 12:22 Blood Culture - Preliminary Blood No Growth after 24 hours 09/14/17 20:31 Nasal Screen MRSA/MSSA (BLAISE) - Final Nasopharyngeal Swab Assessment and Plan (1) CAD (coronary artery disease) Current Visit: Yes Status: Acute Code(s): I25.10 - ATHSCL HEART DISEASE OF [place] CORONARY ARTERY W/O ANG PCTRS SNOMED Code(s): 17882951 (2) Peripheral vascular disease Current Visit: Yes Status: Chronic Code(s): I73.9 - PERIPHERAL VASCULAR DISEASE, UNSPECIFIED SNOMED Code(s): 204610002 (3) New onset a-fib Current Visit: Yes Status: Acute Code(s): I48.91 - UNSPECIFIED ATRIAL FIBRILLATION SNOMED Code(s): 27278808 (4) Acute pulmonary edema Current Visit: Yes Status: Acute Code(s): J81.0 - ACUTE PULMONARY EDEMA SNOMED Code(s): 75822477 (5) Pneumonia Current Visit: Yes Status: Acute Code(s): J18.9 - PNEUMONIA, UNSPECIFIED ORGANISM SNOMED Code(s): 291124733 Plan: Patient's critical status is improved. He is alert and oriented. He is in atrial fibrillation with moderately rapid ventricular response. He is currently on IV Cardizem and amiodarone and also beta skylar. Waiting to have surgery
[2017-09-17] MEDS: HEPARIN SOD,PORK IN 0.45% NACL 25,000 UNIT in 0.45% NACL 1 500ML.BAG IV SCH (16:39)
[2017-09-17] MEDS: HYDROmorphone 2 MG TAB PO PRN (16:39)
[2017-09-17] MEDS: SODIUM CHLORIDE 0.9% 1,000 ML IV SCH (16:39)
[2017-09-17] MEDS: POTASSIUM CHLORIDE ORAL LIQUID 40 MEQ/30 ML CUP NG-TUBE SCH ×2 (17:50→18:50)
--- NOTE | 2017-09-17 18:25 | P.PN ---
Progress Note - Text Progress Note Date: 09/17/17 DATE OF SERVICE: 09/17/2017 PRESENTING COMPLAINT: Atrial fibrillation, mitral valve repair pending. HISTORY OF PRESENT ILLNESS: 62-year-old male who was admitted with an infected left toe from recent trauma. Failed outpatient treatment. When internal arrhythmia, then went into respiratory failure and was intubated. Was extubated and had to be reintubated. Remains on the ventilator FiO2 of 40 and a PEEP of 5. Currently in atrial fibrillation with rapid ventricular rate and pauses. Remains on amiodarone and Cardizem drip as well as IV heparin and propofol. Had a CLARE on 09/14/2017 and found to have severe mitral regurgitation. INTERVAL HISTORY: 09/17/2017: Sitting up in a chair at the bedside, appears very comfortable wide awake alert able to answer questions conversation flows easily. States his appetite is pretty low, food doesn't taste very good to him. He ate about 20-30% of his breakfast. Remains in the ICU on amiodarone and Cardizem drip as well as heparin. Continues to have bursts of atrial fibrillation with RVR and alternating bradycardia when converting into sinus rhythm. 09/16/2017: Lying in bed awake intubated participating in a spontaneous breathing trial in an attempt for extubation. Weaning trial attempted yesterday without success. Surgical intervention planned for next week for the mitral valve. Remains in the ICU on propofol, amiodarone drip, Cardizem drip, metoprolol, and heparin drip. Patient does have bursts of atrial fibrillation and RVR as well as alternating with bradycardia with converting into sinus rhythm. Nutritional support in the form of enteral feedings, currently on bed rest due to intubation , last BM not documented in the patient chart 09/15/2017: Lying in bed awake intubated, status post catheterization in which his LAD has a stent that is patent, circumflex is free of significant stenosis of right coronary artery is dominant vessel and free of stenosis. Has 3+ mitral regurgitation, await input from cardiothoracic surgery regarding repair/replace mitral valve. Remains in the ICU on propofol, amiodarone drip, Cardizem drip, may extubate patient later today if there is no immediate surgical intervention for the mitral valve. REVIEW OF SYSTEMS: Done for constitutional cardiovascular GI pulmonary with relevant findings as above. CURRENT MEDICATIONS Acetaminophen, DuoNeb, amiodarone drip, aspirin, diltiazem drip, Prozac, heparin drip, insulin sliding scale, Synthroid, Lopressor, nicotine patch, Bactroban ointment, Protonix, Zosyn, senna, 0.9% sodium chloride at 20 mL an hour. PHYSICAL EXAM VITAL SIGNS: Temperature 98.0, pulse 88, respiratory rate 22, blood pressure 99/51, oxygen saturation 94% on room air. GENERAL APPEARANCE: Lying in bed, awake not in distress. HENT: Normocephalic, JVD not raised. Mass not palpable. Oral cavity ET tube and orogastric tube in placel, external appearance of ears and nose normal, EYES:Pupils equal. Conjunctiva normal. RESPIRATORY: Respiratory effort normal. Lungs clear to auscultation. CARDIOVASCULAR: Irregular rhythm No edema. ABDOMEN: Soft. Liver and spleen not palpable. No tenderness. No mass palpable. GENITOURINARY: Beaulieu catheter in place with clear yellow urine. PSYCHIATRY: Alert and oriented x3. Mood and affect normal. EXTREMITIES: Infection of the left big toe INTEGUMENT: Right radial arterial line in place. Right great toe dressing intact no drainage noted INVESTIGATIONS: LABS: Hemoglobin 10.3, potassium 3.3, BUN 19, creatinine 1.30, AST 79, ALTs 145, Chest x-ray: Minimal left basilar atelectasis. Cardiac catheterization: LAD stented with this patent stent, circumflex free of significant stenosis, right coronary artery is large dominant vessel free of stenosis. Nasopharyngeal swab negative Catheter tip: Negative after 48 hours Sputum culture: No growth after 48 hours Blood culture: No growth after 144 hours ASSESSMENT: -Acute right great toe cellulitis and wound secondary to trauma with possible dry gangrene, expected to auto amputate, having failed outpatient treatment. -Acute hypoxic respiratory failure secondary to sepsis requiring ventilator assistance. Patient remains intubated. -Bilateral pneumonia, suspect gram-negative organism, possibly causing sepsis resolved -Acute pulmonary edema, could be arrhythmia related. -Acute metabolic acidosis, compensatory -Acute kidney injury secondary to acute tubular necrosis secondary to sepsis with some biochemical improvement. -Acute shock liver, biochemical improvement, from hypotension. -Persistent atrial fibrillation, uncontrolled patient is on a heparin drip.Amiodarone and Cardizem continue -Chronic kidney disease stage III from nephrosclerosis with a baseline creatinine of 1.3. -Acute chronic obstructive pulmonary disease exacerbation in a current smoker. -Chronic nicotine dependence in a cigarette smoker. -Coronary artery disease, prior history of stent. -Hypothyroidism. -Essential hypertension, history. -Hyperlipidemia. -Peripheral artery disease. -Depression, anxiety, not otherwise specified. -Severe mitral regurgitation as per transesophageal echocardiogram, mitral valve repair midweek. -Status post cardiac catheterization with patent stent to the LAD, circumflex free of significant stenosis right coronary artery is free of stenosis. PLAN: Patient remains on IV amiodarone and Cardizem, IV heparin. Tentative plans from cardiothoracic surgery for mitral valve repair midweek next week. We'll likely need a CTA of the neck to evaluate internal carotid artery. Dry gangrene of the left big toe and second toe will be managed by vascular surgery at a later date and time once patient's cardiac status is stabilized. Nephrology will use Lasix judiciously none needed today, potassium replaced. Plan of care discussed at the bedside we will follow closely. ESTHETICIAN SPA statement: Patient was seen and examined by nurse practitioner Xiao Glass and all elements of the case discussed with attending Dr. Alston
--- NOTE | 2017-09-17 22:03 | PN ---
PROGRESS NOTE DATE OF SERVICE: 09/17/2017. ATTENDING NOTE: Patient seen and examined by me. I discussed with nurse practitioner, Maria Luisa. The patient is sitting up on a chair, on nasal cannula. Tolerating diet, but not so much. The patient remains on IV amiodarone, Cardizem drip, and also IV heparin drip. Atrial fibrillation remains uncontrolled. CURRENT MEDICATIONS: 1. IV amiodarone. 2. IV Cardizem. 3. IV heparin. 4. Lopressor. PHYSICAL EXAMINATION: Afebrile, pulse 100, respirations 19, blood pressure 109/69, pulse ox 94% on room air. Sitting up. LUNGS: Decreased breath sounds. HEART: Sounds irregular. LABORATORY DATA: White count 5.9, hemoglobin 10.3, creatinine 1.3. Chest x-ray shows some atelectasis. ASSESSMENT: 1. Acute right big toe cellulitis wound secondary to trauma with dry gangrene. 2. Respiratory failure. 3. Acute pulmonary edema from underlying severe mitral regurgitation. 4. Severe mitral regurgitation. 5. Coronary artery disease. PLAN: Continue medication and treatment plan. Cardiothoracic surgery is planning to do surgery next week. Prognosis is guarded. MMODL / IJN: [id number] /
--- NOTE | 2017-09-17 23:24 | PN ---
PROGRESS NOTE DATE OF SERVICE: 09/17/2017. REASON FOR FOLLOW UP: Left 1st and 2nd toe wound, possible pneumonia. INTERVAL HISTORY: The patient is afebrile, has been extubated. He is breathing comfortably on room air. Denies any chest pain. Minimal cough. No abdominal pain or any pain in left foot area. PHYSICAL EXAMINATION: Blood pressure is 119/59 with a pulse of 70, temperature of 99.7. He is 95% on BiPAP. GENERAL DESCRIPTION: A middle-aged male lying in bed in no distress. RESPIRATORY: Unlabored breathing with decreased breath sounds at the bases. No wheeze. HEART: S1, S2. Regular rate and rhythm. EXTREMITIES: Left foot . No drainage. LABS: Hemoglobin 10, white count of 5.9 with a BUN of 19, creatinine 1.0. DIAGNOSTIC IMPRESSION AND PLAN: Patient with left 1st and 2nd toe cellulitis with possible gangrene and a component of acute respiratory failure, likely secondary to CHF from mitral valve incompetence, less likely pneumonia. Antibiotic has been discontinued today. He will be monitored closely off antibiotic therapy. Continue supportive care. MMODL / IJN: [id number] /
[2017-09-17] MEDS ORDERED: Potassium Replacement Protocol 1 EACH MISC MISCELLANE PRN (23:45)
[2017-09-18] MEDS: DILTIAZEM 125 MG in SODIUM CHLORIDE 0.9% 100 ML IV SCH ×2 (01:07→16:28)
[2017-09-18] MEDS: POTASSIUM CHLORIDE 10 MEQ in SODIUM CHLORIDE 0.9% 100 ML IV SCH ×2 (01:07→03:43)
[2017-09-18] MEDS: HYDROmorphone 2 MG TAB PO PRN (02:15)
[2017-09-18] MEDS: ACETAMINOPHEN TAB 500 MG TAB PO PRN (02:41)
[2017-09-18 05:40] LABS: Anisocytosis Slight; HCT 37.1 % (39.0-53.0); HGB 10.9 gm/dL (13.0-17.5); Hypochromasia Marked; MCH 27.4 pg (25.0-35.0); MCHC 29.4 g/dL (31.0-37.0); Mean Platelet Volume 8.1; Platelet Count 342 k/uL (150-450); RBC 3.99 m/uL (4.30-5.90); RDW 16.2 % (11.5-15.5); WBC 7.2 k/uL (3.8-10.6)
[2017-09-18 06:28] LABS: ALT 152 U/L (21-72); AST 74 U/L (17-59); Albumin 3.2 g/dL (3.5-5.0); Alkaline Phosphatase 82 U/L (38-126); Anion Gap 9 mmol/L; Blood Urea Nitrogen 17 mg/dL (9-20); Calcium 9.1 mg/dL (8.4-10.2); Carbon Dioxide 26 mmol/L (22-30); Chloride 104 mmol/L (98-107); Glucose 101 mg/dL (74-99); Potassium 4.2 mmol/L (3.5-5.1); Sodium 139 mmol/L (137-145); Total Bilirubin 0.7 mg/dL (0.2-1.3); Total Protein 6.5 g/dL (6.3-8.2)
[2017-09-18] MEDS: PANTOPRAZOLE 40 MG TABLET PO SCH (06:42)
[2017-09-18] MEDS: LEVOTHYROXINE 25 MCG TAB PO SCH (06:43)
--- NOTE | 2017-09-18 07:33 | XR ---
EXAMINATION TYPE: XR chest 1V DATE OF EXAM: 09/18/2017 COMPARISON: 09/17/2017 HISTORY: 62-year-old male mitral valve regurgitation, pulmonary edema TECHNIQUE: Single frontal view of the chest is obtained. FINDINGS: Heart borderline enlarged. New diffuse interstitial and patchy airspace opacity throughout. Right PIC C tip at the uppermost right atrium. No significant pleural effusion seen on the frontal view. IMPRESSION: Pulmonary edema new from prior.
--- NOTE | 2017-09-18 08:00 | P.PN ---
Subjective Progress Note Date: 09/18/17 Principal diagnosis: Severe mitral valve regurgitation. Previous history of chronic persistent atrial fibrillation on Eliquis for anticoagulation, depression, peripheral artery disease, chronic nicotine dependence, chronic kidney disease stage III, hypertension, coronary artery disease with previous stent placement, GERD, and hypothyroidism. This 62-year-old gentleman presented to [facility] on 09/05/2017 with complaints of left foot pain and swelling, mainly to his left great toe after previous trauma. He was admitted for further treatment and evaluation. Subsequently he became unresponsive, bradycardic, and hypotensive. He was quickly intubated and taken to the intensive care unit for hemodynamic monitoring. He developed a lactic acidosis. In addition he developed atrial fibrillation. He was extubated, placed on BiPAP, and subsequently reintubated a few days later. A 2-D echocardiogram was completed which demonstrated normal left ventricular function with an ejection fraction between 55-60%, moderate aortic insufficiency, severe mitral regurgitation, mild tricuspid regurgitation. He then had a bedside transesophageal echocardiogram which demonstrated severe mitral valve regurgitation with a flail anterior leaflet, mild aortic insufficiency and severely impaired left ventricular function with an ejection fraction of 30-35%. Left heart catheterization was performed yesterday with no significant coronary stenosis. Cardiothoracic surgery was consulted for surgical repair of the patient's mitral valve. Patient's currently sitting up in bed in no acute distress. Denies any pain or shortness of breath. He did have an episode of hypoxia last night on room air was placed on BiPAP for a few hours. Currently on 6 L nasal cannula with no distress noted. States he feels okay. Objective - Vital Signs Vital signs: Vital Signs Temp 99.3 F 09/18/17 04:00 Pulse 80 09/18/17 06:00 Resp 16 09/18/17 06:00 BP 92/64 09/18/17 06:00 Pulse Ox 98 09/18/17 05:00 Intake & Output 09/17/17 09/18/17 09/18/17 18:59 06:59 18:59 Intake Total 1178.000 243 Output Total 1630 1325 Balance -452.000 -1082 Intake: IV 253 243 Pressure Bag 33 3 Sodium Chloride 0.9% 1, 220 240 000 ml @ 20 mls/hr IV . Q24H [facility] Rx#:[id number] Intake, IV Titration 925.000 Amount Diltiazem 125 mg In 125 Sodium Chloride 0.9% 100 ml @ 5 MG/HR 5 mls/hr IV .Q24H [facility] Rx#:[id number] Heparin Sod,Pork in 0.45% 500.000 NaCl 25,000 unit In 0.45 % NaCl 1 500ml.bag @ 12 UNITS/KG/HR 18.74 mls/hr IV .Q24H [facility] Rx#: [id number] Magnesium Sulfate-D5w Pmx 200 1 gm In Dextrose/Water 1 100ml.bag @ 100 mls/hr IVPB Q1H [facility] Rx#: [id number] Potassium Chloride 20 meq 100 In Water For Injection 1 100ml.bag @ 50 mls/hr IVPB ONCE ONE Rx#: [id number] Output: Urine 1630 1325 Other: Voiding Method Indwelling Catheter Indwelling Catheter # Bowel Movements 0 ABP, PAP, CO, CI - Last Documented Arterial Blood Pressure 125/83 - Constitutional General appearance: Present: cooperative, no acute distress - Respiratory Details: Lungs sounds diminished in coarse bilaterally. Respirations even, nonlabored. Currently on 6 L nasal cannula oxygen saturation 96%. Able to achieve 1250 mL on his incentive spirometry. - Cardiovascular Details: S1, S2 present. Irregular, tachycardia rate and rhythm, atrial fibrillation on telemetry. Palpable peripheral pulses bilaterally. No edema present. No calf pain or tenderness noted. Repeat brachial PICC line present. - Gastrointestinal Gastrointestinal Comment(s): Abdomen soft, nontender, nondistended. Active bowel sounds present 4 quadrants. Tolerating minimal diet. - Genitourinary Genitourinary Comment(s): Beaulieu present draining clear, yellow urine. Output 42-150 mL/h overnight. Patient diuresis nicely after Lasix given. - Integumentary Integumentary Comment(s): Skin is warm and dry. Left big toe dry gangrene present, foot is wrapped. - Neurologic Neurologic: Present: CNII-XII intact - Musculoskeletal Musculoskeletal: Present: strength equal bilaterally - Psychiatric Psychiatric: Present: A&O x's 3, appropriate affect, intact judgment & insight - Allied health notes Allied health notes reviewed: nursing - Labs CBC & Chem 7: 09/18/17 05:16 09/18/17 05:16 Labs: Abnormal Lab Results - Last 24 Hours (Table) 09/17/17 09/17/17 09/18/17 Range/Units 15:15 15:25 05:16 RBC 3.99 L (4.30-5.90) m/uL Hgb 10.9 L (13.0-17.5) gm/dL Hct 37.1 L (39.0-53.0) % MCHC 29.4 L (31.0-37.0) g/dL RDW 16.2 H (11.5-15.5) % APTT 61.4 H (22.0-30.0) sec Potassium 3.4 L (3.5-5.1) mmol/L Creatinine (0.66-1.25) mg/dL Glucose (74-99) mg/dL AST (17-59) U/L ALT (21-72) U/L Albumin (3.5-5.0) g/dL 09/18/17 09/18/17 Range/Units 05:16 05:16 RBC (4.30-5.90) m/uL Hgb (13.0-17.5) gm/dL Hct (39.0-53.0) % MCHC (31.0-37.0) g/dL RDW (11.5-15.5) % APTT 66.6 H (22.0-30.0) sec Potassium (3.5-5.1) mmol/L Creatinine 1.43 H (0.66-1.25) mg/dL Glucose 101 H (74-99) mg/dL AST 74 H (17-59) U/L ALT 152 H (21-72) U/L Albumin 3.2 L (3.5-5.0) g/dL Microbiology - Last 24 Hours (Table) 09/15/17 12:22 Blood Culture - Preliminary Blood No Growth after 48 hours 09/11/17 10:12 Blood Culture - Final Blood No Growth after 144 hours - Imaging and Cardiology Chest x-ray: report reviewed, image reviewed Assessment and Plan (1) Acute and chronic respiratory failure with hypoxia Current Visit: Yes Status: Acute Code(s): J96.21 - ACUTE AND CHRONIC RESPIRATORY FAILURE WITH HYPOXIA SNOMED Code(s): 60546750 (2) COPD (chronic obstructive pulmonary disease) Current Visit: Yes Status: Chronic Code(s): J44.9 - CHRONIC OBSTRUCTIVE PULMONARY DISEASE, UNSPECIFIED SNOMED Code(s): 13482191 (3) Chronic kidney disease, stage III (moderate) Current Visit: Yes Status: Chronic Code(s): N18.3 - CHRONIC KIDNEY DISEASE, STAGE 3 (MODERATE) SNOMED Code(s): 689429165 (4) Gangrenous toe Current Visit: Yes Status: Chronic Code(s): I96 - GANGRENE, NOT ELSEWHERE CLASSIFIED SNOMED Code(s): 602881336 (5) History of bradycardia Current Visit: No Status: Resolved Code(s): Z86.79 - PERSONAL HISTORY OF OTHER DISEASES OF THE CIRCULATORY SYSTEM SNOMED Code(s): 130771451316219 (6) History of coronary artery disease Current Visit: No Status: Resolved Code(s): Z86.79 - PERSONAL HISTORY OF OTHER DISEASES OF THE CIRCULATORY SYSTEM SNOMED Code(s): 849959754 (7) History of depression Current Visit: Yes Status: Chronic Code(s): Z86.59 - PERSONAL HISTORY OF OTHER MENTAL AND BEHAVIORAL DISORDERS SNOMED Code(s): 313638161 (8) Hypertension Current Visit: Yes Status: Chronic Code(s): I10 - ESSENTIAL (PRIMARY) HYPERTENSION SNOMED Code(s): 23000383 (9) Hypothyroidism Current Visit: Yes Status: Chronic Code(s): E03.9 - HYPOTHYROIDISM, UNSPECIFIED SNOMED Code(s): 77802388 (10) Peripheral vascular disease Current Visit: Yes Status: Chronic Code(s): I73.9 - PERIPHERAL VASCULAR DISEASE, UNSPECIFIED SNOMED Code(s): 742204936 (11) New onset a-fib Current Visit: Yes Status: Acute Code(s): I48.91 - UNSPECIFIED ATRIAL FIBRILLATION SNOMED Code(s): 68178811 Plan: 1. Plan is for mitral valve repair this admission, possibly Monday dependent on patient's status. 2. Wean O2 as tolerated. Encourage incentive spirometry use. 3. Continue heparin drip, Cardizem drip, amiodarone drip, aspirin, beta skylar per cardiology management. 4. Bronchodilators per pulmonology. 5. Avoid nephrotoxic agents, however patient will likely need CTA of the neck prior to surgery to evaluate left internal carotid artery. 6. Increase activity, ambulate as tolerated. PT/OT following. 7. Patient has received dental clearance for valve surgery. 8. More recommendations to follow. Time with Patient: Greater than 30
[2017-09-18] MEDS: FUROSEMIDE 10 MG/ML 4 ML VIAL IV SCH (08:20)
[2017-09-18] MEDS: METOPROLOL TARTRATE 5 MG/5 ML VIAL IVP SCH ×2 (08:20→20:09)
[2017-09-18] MEDS: FLUoxetine HCL 20 MG CAP PO SCH (08:20)
[2017-09-18] MEDS: NICOTINE 21MG/24HR PATCH TRANSDERM SCH (08:20)
[2017-09-18] MEDS: MUPIROCIN 2% OINT 22 GM TUBE NASAL SCH ×2 (08:20→20:10)
[2017-09-18] MEDS: ASPIRIN 81 MG PO SCH (08:21)
[2017-09-18] MEDS: IPRATROPIUM-ALBUTEROL 3 ML NEB INHALATION SCH ×3 (08:46→19:36)
--- NOTE | 2017-09-18 10:18 | P.PN ---
Subjective Progress Note Date: 09/18/17 Principal diagnosis: Respiratory failure Progress note dated 09/11/2017 This is a 62-year-old black male who was admitted on September 06. He apparently was initially admitted with a diagnosis of sepsis with a gangrenous toe. He started in the ER went to the general medical floor and 18 was called because of respiratory failure and acidosis. He that reason he was intubated on September 06 and transferred to the ICU. He was extubated initially on September 08 and then reintubated again on September 11. This was today at 4:00 in the morning. The patient's x-ray shows diffuse bilateral infiltrates worse on the right than on the left side. His current ventilator settings include the assist control mode, rate of 12, an FiO2 of 70%, tidal Byam of 500, PEEP of 10. Arterial blood gases show a PaO2 of 88 a PaCO2 of 37 and a pH of 7.36. His current IVs include a saline IV at 20 mL an hour, heparin via weightbase protocol for atrial fibrillation propofol at 35 mics per kilogram per minute and Cordarone at 0.5 mg/m. The patient's x-rays labs medications are all reviewed. Microbiology is all negative. I asked the nurse to resume his tube feeds. Progress note dated September 12 2017 62-year-old black male who was admitted on September 06. He apparently was initially admitted with a diagnosis of sepsis with a gr gangrenous toe. He started in the ER want to the general medical floor and a rapid response was called because of respiratory failure and severe acidosis. He was intubated on September 06 and transferred to the intensive care unit. He was initially extubated on September 08 and then reintubated again on September 11. That was at 4 :00 in the morning. My partner was called. His chest x-ray yesterday showed diffuse bilateral pulmonary infiltrates worse on the right than on the left. We made some changes yesterday. The patient's chest x-ray today is much improved suggesting that he has mostly pulmonary edema/heart failure. In fact, the echocardiogram did reveal evidence of severe mitral regurgitation. The patient clinically is much better today. We are going to have the vascular service surgeon see him about the great toe. Likely, thoracic surgery would not want to do anything if there was active infection. The patient's FiO2 was dropped from 50-40%. In addition, we'll be able to make some significant PEEP changes today.His current vent settings are the assist control mode rate of 22 tidal volume 400 FiO2 40% and PEEP of 13. The PEEP can probably be dropped down from 13-10 later today. Arterial blood gases show a PaO2 of 177 a PaCO2 of 41 and a pH of 7.35. His is consistent with a very mild metabolic acidosis. The patient's on heparin via weightbase protocol, propofol at 45 mics per kilogram per minute dopamine which is currently off started earlier this morning for bradycardia a saline IV at 20 mL an hour and vital high protein at 56 with a goal of 56 mL per hour. Progress note dated 09/13/2017 62-year-old black male who was admitted on September 06. He was initially admitted with a diagnosis of sepsis with a gangrenous toe. He was initially admitted from the ER to the general medical floor and then subsequent to that a rapid response was called because of respiratory failure and severe metabolic acidosis. He was intubated later on September 06 and was transferred to the ICU. He was initially extubated on and then reintubated again early in the morning of September 11 for respiratory failure. His chest x-ray showing waxing waning diffuse bilateral pulmonary infiltrates. These infiltrates, likely represent heart failure, but could also relate to pneumonia/ acute lung injury. The patient's echocardiogram did reveal severe mitral regurgitation. Cardiology is looking into that. Also, we have vascular surgeon looking at the gangrenous toe. The patient's FiO2 was dropped from 50 to 40%. In addition, the PEEP was dropped recently from 13-10 8. Arterial blood gases are reviewed. He is on the assist control mode with a rate of 22. Tidal Byam is 400. Other than that, the patient seems to be doing about the same. I did speak to the infectious disease product management consultant as well as a cardiology consult about this patient. Progress note dated 09/14/2017 62-year-old black male who was admitted back on September 06. He was initially admitted with a diagnosis of sepsis and a gangrenous toe. Vascular surgery saw the patient yesterday and determined that he had dry gangrene and no debridement or amputation was necessary. The patient was initially admitted from the emergency room to the general medical floor and subsequent to that a rapid response team was called because of respiratory failure and severe metabolic acidosis. He was moved he was intubated later on September 06 and was transferred to the ICU. The patient was then initially extubated on September 08 and the reintubated again early in the morning on September for respiratory failure. His pattern has been that of flash pulmonary edema although, acute lung injury/nosocomial pneumonia, could not be excluded. Mostly though, we believe it relates to heart failure from a case of severe mitral regurgitation. The patient underwent transesophageal echocardiogram this morning and was determined to have severe mitral regurgitation and thought to have an ejection fraction of 25%. He is scheduled for heart catheterization on September 15 and the patient will be seen by cardiothoracic surgery. Currently he is on IV heparin via weightbase protocol propofol at 45 mics per kilogram per minute, Cordarone at 0.5 mg/m Cardizem drip at 10 mg an hour saline IV at 20 mL an hour and vital high protein at 56 mL an hour with a goal of 56. The patient's vent settings include the assist control mode rate of 22 tidal volume of 400 FiO2 40% and PEEP of 5. Blood gases show a PaO2 of 103 a PaCO2 of 36 and a pH 7.45. This is consistent with mild respiratory alkalosis. The patient probably could be extubated. But because she is having a heart cath tomorrow, my inclination is to keep monitoring ventilator until then. Progress note dated 09/15/2017 62-year-old black male admitted back on September 06. The patient was initially admitted with a diagnosis of sepsis and a gangrenous toe. Vascular surgery seems to think that the toe represents dry gangrene and no additional debridement or amputation is necessary. The patient initially presented to the emergency room with an into the general medical floor. A rapid response was called. The patient developed respiratory failure and severe metabolic acidosis. He was moved to the ICU and intubated on September 06. He was extubated initially on in the reintubated early in the morning on September 11 for respiratory failure. His pattern has been that of a flash pulmonary edema. The patient also may be having a component of acute lung injury/nosocomial pneumonia. Anyway, the pulmonary edema is likely related mostly to card and myopathy as well as severe mitral regurgitation. The patient had a transesophageal echocardiogram yesterday and is going for cardiac catheterization today. The patient was maintained on mechanical ventilator because he was going for catheterization today. Hopefully, we can get him extubated later today. This depends on what is done. Currently, the patient's on the ventilator with the assist control mode rate of 22 breathing 24 times a minute, tidal volume of 400 FiO2 40% PEEP of 5. Arterial blood gases show a PaO2 of 98 a PaCO2 of 35 and a pH of 7.41. The patient's on a saline IV at KVO heparin is been turned off the Cardizem drip is running at 10 mg an hour and tube feeds are on hold. The patient's chest x-ray reveals some mild fluid overload. All in all though, the patient's much more stable. I have been turned to the family all along the fact, the family member is one of my primary patient to my office. This is the patient's nephew. Progress note dated 09/16/2017 62-year-old black male status post respiratory failure. The patient was extubated this morning. The patient had excellent weaning parameters and blood gases. We attempted yesterday to extubate the patient but he really wasn't ready for extubation. We did extubate him to BiPAP. He is on BiPAP at 12 and 5 and 40%. The patient was initially admitted back on September 06 with an episode of sepsis and a gangrenous toe. Because of worsening respiratory status , on the general medical floor, a rapid response team was called. The patient' s respiratory failure led him to be intubated and transferred to the ICU on September 06. He was initially extubated on seb second and reintubated on the morning of September 11. He is finally extubated today on September 16. The patient had a transesophageal echocardiogram which suggested poor cardiac function with an ejection fraction to be estimated at 20-25% and severe mitral regurgitation. The patient subsequently had a cardiac cardiac catheterization which revealed no evidence of coronary artery disease and again severe mitral regurgitation. The patient is apparently going to have a mitral valve replacement/repair done midweek by one of the cardiothoracic surgeons. Currently, the patient's on BiPAP at 12 and 5 and 40%. His chest x-ray shows fluid overload so he'll get some additional Lasix. His IV is a saline IV at KVO a Cardizem drip at 5 mg an hour Cordarone at 0.5 mL/m heparin via weightbase protocol and his tube feeds are currently off. He seemed pretty comfortable and there. Progress note dated 09/17/2017 62-year-old black male status post respiratory failure. He was extubated a couple days ago. Doing relatively well. The patient will likely have mitral valve repair/replacement midweek. The patient currently is just on some nasal O2. The patient had an uneventful night. The patient has no complaints today. The patient was initially admitted back on September 06 with an episode of respiratory failure. I rapid response team was called and the patient's respiratory failure led to intubation and transferred to the intensive care unit on September 06. He was initially extubated on September 08 and reintubated on the morning of . He was finally extubated on September 16. He had a transesophageal echocardiogram which showed severe mitral regurgitation. He sought to have an ejection fraction of about 20-25%. According to cardiac catheterization revealed no significant coronary disease. Again, planning to have mitral valve repair/replacement done midweek. Other than that, the patient is doing reasonably well. Progress note dated September 18, 2017 62-year-old white male status post respiratory failure. The patient has developed on and off flash pulmonary edema primarily from cardiac disease i.e. I severe mitral regurgitation. The patient was extubated a couple days ago by myself. The patient remains here in the ICU. The plan is for him to have either mitral valve repair or replacement on Monday. I the patient's chest x -ray shows worsening pulmonary edema today. He did spend some time on the BiPAP last night. Currently he is on O2 at 5 L by nasal cannula. He is on heparin via weightbase protocol amiodarone at 0.5 mg/m and a Cardizem drip at 10 mg an hour. Is getting also a saline IV and KVO. The patient feels well. Does not appear to have any respiratory distress distress or difficulty. Not coughing or wheezing. No chest pain or chest discomfort. The patient did have a transesophageal echocardiogram which showed severe mitral regurgitation. Also , his ejection fraction was estimated between 20 and 25 %. Finally, a cardiac catheterization revealed no evidence of coronary artery disease. Objective - Vital Signs Vital signs: Vital Signs Temp 98 F 09/18/17 08:00 Pulse 105 H 09/18/17 09:30 Resp 11 L 09/18/17 09:30 BP 123/78 09/18/17 09:30 Pulse Ox 95 09/18/17 09:00 Intake & Output 09/17/17 09/18/17 09/18/17 18:59 06:59 18:59 Intake Total 1178.000 243 60 Output Total 1630 1325 600 Balance -452.000 -1082 -540 Weight 79.1 kg Intake: IV 253 243 60 Pressure Bag 33 3 Sodium Chloride 0.9% 1, 220 240 60 000 ml @ 20 mls/hr IV . Q24H AJ Rx#:[id number] Intake, IV Titration 925.000 Amount Diltiazem 125 mg In 125 Sodium Chloride 0.9% 100 ml @ 5 MG/HR 5 mls/hr IV .Q24H AJ Rx#:[id number] Heparin Sod,Pork in 0.45% 500.000 NaCl 25,000 unit In 0.45 % NaCl 1 500ml.bag @ 12 UNITS/KG/HR 18.74 mls/hr IV .Q24H AJ Rx#: [id number] Magnesium Sulfate-D5w Pmx 200 1 gm In Dextrose/Water 1 100ml.bag @ 100 mls/hr IVPB Q1H AJ Rx#: [id number] Potassium Chloride 20 meq 100 In Water For Injection 1 100ml.bag @ 50 mls/hr IVPB ONCE ONE Rx#: [id number] Output: Urine 1630 1325 600 Other: Voiding Method Indwelling Catheter Indwelling Catheter Indwelling Catheter # Bowel Movements 0 ABP, PAP, CO, CI - Last Documented Arterial Blood Pressure 125/83 - Exam No acute distress, currently on nasal O2.. HEENT examination is grossly unremarkable. Mucous membranes are moist. No oral lesions. Neck supple. Full range of motion. No adenopathy thyromegaly or neck vein distention. Cardiovascular examination reveals irregular rhythm rate. S1-S2 normal. No S3 or S4. Soft murmur is heard now the patient's extubated. Heart rate 120 Lungs reveal coarse bilateral breath sounds. Breath sounds are diminished. Mild bibasilar crackles. Breath sounds are diminished more on the right side than the left. Abdomen soft bowel sounds are heard. No masses or tenderness. Extremities are intact. No cyanosis clubbing or edema. Skin is without rash or lesion. Neurologic examination could not be performed. - Labs CBC & Chem 7: 09/18/17 05:16 09/18/17 05:16 Labs: Abnormal Lab Results - Last 24 Hours (Table) 09/17/17 09/17/17 09/18/17 Range/Units 15:15 15:25 05:16 RBC 3.99 L (4.30-5.90) m/uL Hgb 10.9 L (13.0-17.5) gm/dL Hct 37.1 L (39.0-53.0) % MCHC 29.4 L (31.0-37.0) g/dL RDW 16.2 H (11.5-15.5) % APTT 61.4 H (22.0-30.0) sec Potassium 3.4 L (3.5-5.1) mmol/L Creatinine (0.66-1.25) mg/dL Glucose (74-99) mg/dL AST (17-59) U/L ALT (21-72) U/L Albumin (3.5-5.0) g/dL 09/18/17 09/18/17 Range/Units 05:16 05:16 RBC (4.30-5.90) m/uL Hgb (13.0-17.5) gm/dL Hct (39.0-53.0) % MCHC (31.0-37.0) g/dL RDW (11.5-15.5) % APTT 66.6 H (22.0-30.0) sec Potassium (3.5-5.1) mmol/L Creatinine 1.43 H (0.66-1.25) mg/dL Glucose 101 H (74-99) mg/dL AST 74 H (17-59) U/L ALT 152 H (21-72) U/L Albumin 3.2 L (3.5-5.0) g/dL Microbiology - Last 24 Hours (Table) 09/15/17 12:22 Blood Culture - Preliminary Blood No Growth after 48 hours 09/11/17 10:12 Blood Culture - Final Blood No Growth after 144 hours Assessment and Plan Assessment: Assessment Acute hypoxemic respiratory failure secondary to sepsis/septic shock with a gangrenous toe and underlying cellulitis. Possible bilateral nosocomial pneumonia vs. acute lung injury Atrial fibrillation/RVR Congestive heart failure, secondary to severe mitral regurgitation and cardiomyopathy with an ejection fraction of 25% Intermittent sinus bradycardia History of CAD with previous stent placement History of COPD History of essential hypertension History of depression Peripheral vascular occlusive disease Hypothyroidism Hypertensive nephrosclerosis with chronic kidney disease, stage III Acute cellulitis and dry gangrene of the left big toe, status post debridement Plan: Plan dated 09/11/2017 The patient developed acute respiratory failure early this morning. My partner was called. He was reintubated. I'll make a slight change in the vent settings. We'll go with a low titer volume strategy. We'll drop a tidal volume from 500-400. We'll bump the rate from 16-24. PEEP will be increased from 10-13. I will review the labs x-rays a medications. We'll resume tube feeds. Prognosis is poor. Additional recommendations and suggestions are forthcoming. Plan dated 09/12/2017 Vascular surgery will come in to see the patient today.Labs x-rays a medications are all reviewed. The dopamine is now off. It was started for bradycardia. The patient's FiO2 was dropped from 50-40%. Likely will be able to make some PEEP changes as well. Chest x-ray is dramatically improved. We' ll continue to follow closely. Prognosis is guarded. The mitral valve issue is certainly likely the cause of the patient's flash pulmonary edema. He may even have mitral valve endocarditis. Plan dated 09/13/2017 The patient was seen by vascular surgery this morning. The surgeon feels like this is a dry gangrene and nothing active going on and no additional debridement or amputation is required. We'll let the infectious disease doctor know. The PEEP was dropped from 10 to 8. Gases are reviewed. His P/F ratio is 235 indicating mild ARDS. The chest x-ray is improved. Most of his issues in the lungs related to congestive heart failure because of the severe mitral regurgitation. We'll talk to cardiology about a CLARE as well as thoracic surgery about possible mitral valve repair/replacement. Plan dated 09/14/2017 The patient had his transesophageal echocardiogram today. His ejection fraction was estimated at 25% and he has severe mitral regurgitation. The patient scheduled for heart catheterization tomorrow. The patient will be maintained on the ventilator since then. Blood gases are reasonable. Chest x- rays improved although he did still has a pattern of some mild fluid overload. The patient remains on IV heparin via weightbase protocol propofol Cordarone and Cardizem and his tube feeds. Overall prognosis is poor. We'll continue to watch patient very closely. Additional recommendations and suggestions are forthcoming. Plan dated 09/15/2017 The patient is scheduled for a cardiac catheterization this morning. He had a transesophageal echocardiogram yesterday. His estimated ejection fraction was only 20-25% and he has Severe mitral regurgitation. The patient is maintained on mechanical ventilator. Labs x-rays a medications are all reviewed. No additional recommendations are made. Prognosis is guarded. We'll continue to follow closely. Plan dated 09/16/2017 The patient's of doing reasonably well. He was extubated this morning. His weaning parameters blood gases and so forth were all excellent. He passes cuff leak test. He maintains on Cardizem drip at 5 mg an hour amiodarone 0.5 mg/m and heparin via weightbase protocol. 2 feeds off. Ready to give him some additional Lasix. We'll watch him very closely. The plan is to do mitral valve repair/replacement midweek. Plan dated 09/17/2017 The patient's labs medications and x-rays are all reviewed. The patient's x- ray has significantly improved. He did receive some diuretics yesterday. The patient will need his carotid evaluated. He'll be gently hydrated for that. The patient still having atrial fibrillation. Currently on nasal O2. The patient looks much better today than he has since had been seeing him in the last the plan is mitral valve repair/replacement midweek. No additional recommendations are made. Plan dated 07/18/2018 The patient's doing well today. Chest x-ray shows a bit worsening of his underlying heart failure. The patient did spend a bit of time on BiPAP last night. Currently on nasal O2 at 5 L. Also receiving his IV heparin amiodarone and Cardizem drip for his irregular heart rate. We'll continue to follow closely. Prognosis is guarded. Anticipated mitral valve appeared/replacement on Monday. Time with Patient: Greater than 30
--- NOTE | 2017-09-18 11:02 | P.PN ---
Subjective Progress Note Date: 09/18/17 This patient remains intubated and sedated. Patient is in atrial fibrillation now. Rate is controlled with combination of Cardizem and amiodarone. Patient was seen by Dr. Addison and felt that is a ganglion the left foot is stable and doesn't need any surgical intervention. I spoke with Dr. Godoy regarding evaluation of hi mitral regurgitation and is going to do CLARE tomorrow morning. He is going to keep him intubated until the CLARE is performed. If necessary we' ll get a consult from the cardiac surgeons. Meanwhile patient will stay on current medical therapy. Progress note for 09/16/2017: This patient still having a intermittent bouts of atrial fibrillation alternating with bradycardia and he converts into sinus rhythm. Patient is on amiodarone and also Cardizem drip and bolus of metoprolol. Pulmonary is trying to wean him off the respirator. Cardiac surgeons apparently cannot do the surgery for several days. His cardiac catheterization revealed evidence of significant mitral regurg with an ejection fraction of 50-55%. No significant obstructive coronary artery disease noted. Prognosis is guarded. Progress note for 09/17/2017: This patient was extubated yesterday. He is alert and oriented and doesn't appear to be in acute distress. He is in atrial fibrillation with moderately rapid ventricular response. Denies any chest pain. Examination the heart reveals irregular heart rhythm with murmur at the apex. Lungs show good air entry. Waiting to have mitral valve repair on Monday. Progress note for 09/18/2017: Patient remains extubated. Denies any chest pain or shortness of breath. A chest x-ray showed evidence of CHF. Diuretic dose is being increased. Patient is maintaining atrial flutter fib with a heart rate of 110. Lungs are clear. Heart is irregular. We'll continue current management. Mitral valve replacement planned for Monday Objective - Vital Signs Vital signs: Vital Signs Temp 98 F 09/18/17 08:00 Pulse 99 09/18/17 10:00 Resp 17 09/18/17 10:00 BP 110/77 09/18/17 10:00 Pulse Ox 95 09/18/17 10:00 Intake & Output 09/17/17 09/18/17 09/18/17 18:59 06:59 18:59 Intake Total 1178.000 243 60 Output Total 1630 1325 600 Balance -452.000 -1082 -540 Weight 79.1 kg Intake: IV 253 243 60 Pressure Bag 33 3 Sodium Chloride 0.9% 1, 220 240 60 000 ml @ 20 mls/hr IV . Q24H AJ Rx#:[id number] Intake, IV Titration 925.000 Amount Diltiazem 125 mg In 125 Sodium Chloride 0.9% 100 ml @ 5 MG/HR 5 mls/hr IV .Q24H AJ Rx#:[id number] Heparin Sod,Pork in 0.45% 500.000 NaCl 25,000 unit In 0.45 % NaCl 1 500ml.bag @ 12 UNITS/KG/HR 18.74 mls/hr IV .Q24H AJ Rx#: [id number] Magnesium Sulfate-D5w Pmx 200 1 gm In Dextrose/Water 1 100ml.bag @ 100 mls/hr IVPB Q1H AJ Rx#: [id number] Potassium Chloride 20 meq 100 In Water For Injection 1 100ml.bag @ 50 mls/hr IVPB ONCE ONE Rx#: [id number] Output: Urine 1630 1325 600 Other: Voiding Method Indwelling Catheter Indwelling Catheter Indwelling Catheter # Bowel Movements 0 ABP, PAP, CO, CI - Last Documented Arterial Blood Pressure 125/83 - Exam GENERAL EXAM: Patient is alert and oriented HEENT: Normocephalic. N CHEST: No chest wall deformity. LUNGS: Diminished breath sounds HEART: S1 and S2 normal ABDOMEN: No hepatosplenomegaly, normal bowel sounds, no guarding or rigidity. SKIN: No rashes CENTRAL NERVOUS SYSTEM: No focal deficits. EXTREMITIES: Dry gangrenous changes on the left foot - Labs CBC & Chem 7: 09/18/17 05:16 09/18/17 05:16 Labs: Abnormal Lab Results - Last 24 Hours (Table) 09/17/17 09/17/17 09/18/17 Range/Units 15:15 15:25 05:16 RBC 3.99 L (4.30-5.90) m/uL Hgb 10.9 L (13.0-17.5) gm/dL Hct 37.1 L (39.0-53.0) % MCHC 29.4 L (31.0-37.0) g/dL RDW 16.2 H (11.5-15.5) % APTT 61.4 H (22.0-30.0) sec Potassium 3.4 L (3.5-5.1) mmol/L Creatinine (0.66-1.25) mg/dL Glucose (74-99) mg/dL AST (17-59) U/L ALT (21-72) U/L Albumin (3.5-5.0) g/dL 09/18/17 09/18/17 Range/Units 05:16 05:16 RBC (4.30-5.90) m/uL Hgb (13.0-17.5) gm/dL Hct (39.0-53.0) % MCHC (31.0-37.0) g/dL RDW (11.5-15.5) % APTT 66.6 H (22.0-30.0) sec Potassium (3.5-5.1) mmol/L Creatinine 1.43 H (0.66-1.25) mg/dL Glucose 101 H (74-99) mg/dL AST 74 H (17-59) U/L ALT 152 H (21-72) U/L Albumin 3.2 L (3.5-5.0) g/dL Microbiology - Last 24 Hours (Table) 09/15/17 12:22 Blood Culture - Preliminary Blood No Growth after 48 hours 09/11/17 10:12 Blood Culture - Final Blood No Growth after 144 hours Assessment and Plan (1) CAD (coronary artery disease) Current Visit: Yes Status: Acute Code(s): I25.10 - ATHSCL HEART DISEASE OF [place] CORONARY ARTERY W/O ANG PCTRS SNOMED Code(s): 59808916 (2) Peripheral vascular disease Current Visit: Yes Status: Chronic Code(s): I73.9 - PERIPHERAL VASCULAR DISEASE, UNSPECIFIED SNOMED Code(s): 830524140 (3) New onset a-fib Current Visit: Yes Status: Acute Code(s): I48.91 - UNSPECIFIED ATRIAL FIBRILLATION SNOMED Code(s): 99297319 (4) Acute pulmonary edema Current Visit: Yes Status: Acute Code(s): J81.0 - ACUTE PULMONARY EDEMA SNOMED Code(s): 60777074 (5) Pneumonia Current Visit: Yes Status: Acute Code(s): J18.9 - PNEUMONIA, UNSPECIFIED ORGANISM SNOMED Code(s): 431702397 Plan: Clinically stable. His chest x-ray shows some pulmonary edema. Diuresing well. We will continue current medical therapy. Possible surgery on Monday
[2017-09-18] MEDS ORDERED: RX INFO: IV CONTRAST WAS GIVEN 1 EACH MISC MISCELLANE PRN (11:36)
[2017-09-18] MEDS: AMIODARONE 450 MG in DEXTROSE 5% IN WATER 250 ML IV SCH ×2 (12:00)
--- NOTE | 2017-09-18 12:09 | CDI ---
Last Revision, July 2017 Documentation Clarification Form Date: 09/18/2017 11:51:00 AM From: Treva Zepeda RN, CCDS Admit Date: 09/05/2017 1:24:00 PM Patient Name: Reddy Maradiaga Visit Number: [id number] ATTENTION: The Clinical Documentation Specialists (CDI) and [facility] Coding Staff appreciate your assistance in clarifying documentation. Please respond to the clarification below the line at the bottom and electronically sign. The CDI & [facility] Coding staff will review the response and follow-up if needed. Please note: Queries are made part of the Legal Health Record. If you have any questions, please contact the author of this message via ITS. Dr. Angelito Rose History/Risk Factors: Sepsis w septic shock, acute respiratory failure, mitral valve insufficiency awaiting valve repair/replacement middle of this week Clinical Indicators: 09/14 CLARE: severe mitral valve regurg 2nd to partial flail of anterior leaflet. Moderate LV systolic dysfunction with diffuse hypokinesis 09/06 Pt s/p cardiac arrest 09/11/17 BNP: 3970 09/14/17 Echocardiogram Results: EF 55-60% 09/18/17 Chest X Ray: "Pulmonary edema new from prior." Treatment: Pt has received several doses of IV Lasix this admission Previously on Dopamine Drip In your professional opinion, can you please clarify the acuity and type of CHF if known? Systolic Heart Failure: Acute Acute on Chronic Diastolic Heart Failure: Acute Acute on Chronic Systolic & Diastolic Heart Failure: Acute Acute on Chronic Heart Failure Unable to Determine Other, please specify Please continue to document in your progress notes and discharge summary in order to capture severity of illness and risk of mortality. Include clinical findings that support your diagnosis. MTDD
--- NOTE | 2017-09-18 16:35 | CT ---
EXAMINATION TYPE: CT angio neck DATE OF EXAM: 09/18/2017 HISTORY: Patient has no neck complaints at time of study. Pre op open heart. COMPARISON: NONE CT DLP: 318.5 mGycm. Automated Exposure Control for Dose Reduction was Utilized. TECHNIQUE: CTA scan of the neck is performed with IV Contrast, patient injected with 65 mL of Visipa que 320, axial images are obtained, coronal and sagittal reformatted images are reviewed. Three-D rec onstructed images are created on an independent workstation and reviewed. FINDINGS: Carotid/Vascular Structures: There is a three-vessel arch. The right vertebral artery is dominant. Th ere is very poor visualization of the left vertebral artery. Common carotid arteries bifurcate normal ly into internal and external carotid arteries. Three-D reconstructed images demonstrate some severe narrowing of the origin of the right internal ca rotid artery at the bifurcation. There is some mild narrowing of the left internal carotid artery whi ch may be postendarterectomy. Other: Small bilateral pleural effusions are present. IMPRESSION: 1. Severe stenosis origin of the right internal carotid artery. Stenosis is estimated at greater than 70%. 2. Moderate to severe narrowing of the proximal left internal carotid artery. This is approaching sev ere but between 50 and 69% narrowing. Correlate with the patient's symptoms.
[2017-09-18] MEDS: SODIUM CHLORIDE 0.9% 1,000 ML IV SCH (17:32)
[2017-09-18] MEDS: SENNOSIDES 8.6 MG TAB PO SCH (17:32)
--- NOTE | 2017-09-18 17:44 | P.PN ---
Progress Note - Text Progress Note Date: 09/18/17 DATE OF SERVICE: 09/18/2017 PRESENTING COMPLAINT: Atrial fibrillation, mitral valve repair pending. HISTORY OF PRESENT ILLNESS: 62-year-old male who was admitted with an infected left toe from recent trauma. Failed outpatient treatment. When internal arrhythmia, then went into respiratory failure and was intubated. Was extubated and had to be reintubated. Remains on the ventilator FiO2 of 40 and a PEEP of 5. Currently in atrial fibrillation with rapid ventricular rate and pauses. Remains on amiodarone and Cardizem drip as well as IV heparin and propofol. Had a CLARE on 09/14/2017 and found to have severe mitral regurgitation. INTERVAL HISTORY: 09/18/2017: Patient lying in bed appears very comfortable wide awake able to answer all questions conversation is easy, overnight patient had be placed on the BiPAP for little bit. X-ray this morning shows worsening pulmonary edema. States his appetite is improving but continues to be difficult to eat. Eating between 20 and 50% of his meals. Continues on amiodarone and Cardizem drip as well as heparin. Tentative plan for mitral valve repair on Monday or of this week. 09/17/2017: Sitting up in a chair at the bedside, appears very comfortable wide awake alert able to answer questions conversation flows easily. States his appetite is pretty low, food doesn't taste very good to him. He ate about 20-30% of his breakfast. Remains in the ICU on amiodarone and Cardizem drip as well as heparin. Continues to have bursts of atrial fibrillation with RVR and alternating bradycardia when converting into sinus rhythm. 09/16/2017: Lying in bed awake intubated participating in a spontaneous breathing trial in an attempt for extubation. Weaning trial attempted yesterday without success. Surgical intervention planned for next week for the mitral valve. Remains in the ICU on propofol, amiodarone drip, Cardizem drip, metoprolol, and heparin drip. Patient does have bursts of atrial fibrillation and RVR as well as alternating with bradycardia with converting into sinus rhythm. Nutritional support in the form of enteral feedings, currently on bed rest due to intubation , last BM not documented in the patient chart 09/15/2017: Lying in bed awake intubated, status post catheterization in which his LAD has a stent that is patent, circumflex is free of significant stenosis of right coronary artery is dominant vessel and free of stenosis. Has 3+ mitral regurgitation, await input from cardiothoracic surgery regarding repair/replace mitral valve. Remains in the ICU on propofol, amiodarone drip, Cardizem drip, may extubate patient later today if there is no immediate surgical intervention for the mitral valve. REVIEW OF SYSTEMS: Done for constitutional cardiovascular GI pulmonary with relevant findings as above. CURRENT MEDICATIONS Acetaminophen, DuoNeb, amiodarone drip, aspirin, diltiazem drip, Prozac, heparin drip, insulin sliding scale, Synthroid, Lopressor, nicotine patch, Bactroban ointment, Protonix, Zosyn, senna, 0.9% sodium chloride at 20 mL an hour. PHYSICAL EXAM VITAL SIGNS: Temperature 98.0, pulse 118, respiratory rate 15, blood pressure 112/84, oxygen saturation 95% on 5 L. GENERAL APPEARANCE: Lying in bed, awake not in distress. HENT: Normocephalic, JVD not raised. Mass not palpable. Oral cavity ET tube and orogastric tube in placel, external appearance of ears and nose normal, EYES:Pupils equal. Conjunctiva normal. RESPIRATORY: Respiratory effort normal. Lungs clear to auscultation. CARDIOVASCULAR: Irregular rhythm No edema. ABDOMEN: Soft. Liver and spleen not palpable. No tenderness. No mass palpable. GENITOURINARY: Beaulieu catheter in place with clear yellow urine. PSYCHIATRY: Alert and oriented x3. Mood and affect normal. EXTREMITIES: Infection of the left big toe INTEGUMENT: Right radial arterial line in place. Right great toe dressing intact no drainage noted INVESTIGATIONS: LABS: Hemoglobin 10.9, creatinine 1.43, AST 74, ALTs 152, Chest x-ray: Pulmonary edema and new from prior. Neck CTA: Severe stenosis origin of the right internal carotid artery stenosis is estimated at greater than 70%. Moderate to severe narrowing of the proximal internal left carotid artery approaching severe but between 50 and 69% narrowing. Cardiac catheterization: LAD stented with this patent stent, circumflex free of significant stenosis, right coronary artery is large dominant vessel free of stenosis. Nasopharyngeal swab negative Catheter tip: Negative after 48 hours Sputum culture: No growth after 48 hours Blood culture: No growth after 144 hours ASSESSMENT: -Acute right great toe cellulitis and wound secondary to trauma with possible dry gangrene, expected to auto amputate, having failed outpatient treatment. -Acute hypoxic respiratory failure secondary to sepsis currently on nasal cannula. -Bilateral pneumonia, suspect gram-negative organism, possibly causing sepsis resolved -Acute pulmonary edema, from underlying severe mitral regurgitation.. -Acute metabolic acidosis, compensatory -Acute kidney injury secondary to acute tubular necrosis secondary to sepsis with some biochemical improvement. -Acute shock liver, biochemical improvement, from hypotension. -Persistent atrial fibrillation, uncontrolled patient is on a heparin drip.Amiodarone and Cardizem continue -Chronic kidney disease stage III from nephrosclerosis with a baseline creatinine of 1.3. -Acute chronic obstructive pulmonary disease exacerbation in a current smoker. -Chronic nicotine dependence in a cigarette smoker. -Coronary artery disease, prior history of stent. -Hypothyroidism. -Essential hypertension, history. -Hyperlipidemia. -Peripheral artery disease. -Depression, anxiety, not otherwise specified. -Severe mitral regurgitation as per transesophageal echocardiogram, mitral valve repair midweek. -Status post cardiac catheterization with patent stent to the LAD, circumflex free of significant stenosis right coronary artery is free of stenosis. PLAN: Patient remains on IV amiodarone and Cardizem, IV heparin. Tentative plans from cardiothoracic surgery for mitral valve repair Monday this week. CTA completed as above. Cardiology to increased diuretic dose for pulmonary edema on x-ray. Dry gangrene of the left big toe and second toe will be managed by vascular surgery at a later date and time once patient's cardiac status is stabilized. Nephrology will use Lasix judiciously none needed today, potassium replaced. Plan of care discussed at the bedside we will follow closely. BRANCH COORDINATOR statement: Patient was seen and examined by nurse practitioner Xiao Glass and all elements of the case discussed with attending Dr. Alston
[2017-09-18] MEDS: BISACODYL 10 MG SUPP RECTAL SCH (20:13)
[2017-09-18] MEDS ORDERED: AMIODARONE 450 MG in DEXTROSE 5% IN WATER 250 ML IV SCH ×2 (21:00)
--- NOTE | 2017-09-18 22:00 | PN ---
PROGRESS NOTE Patient is seen for followup for acute kidney injury. This morning patient was scheduled to have a CT angiogram. His renal function has been fairly stable, although serum creatinine was at 1.4 mg/dL today, up from 1.2 yesterday. He continues to have good urine output. Blood pressure is not been significantly low. The patient was given saline for about 4 hours at 50 mL an hour, at the time of the angiogram. He did receive Lasix this morning and the Lasix is now held. EXAMINATION: Patient is sitting up in a bedside chair. He has been extubated. The blood pressure this morning was 118/82, heart rate of 110 per minute. Patient is afebrile. Examination of the heart S1, S2. Examination lungs bilateral breath sounds are heard. Abdomen is soft. Nontender. Examination lower extremity showed no significant edema. Left foot is currently wrapped. LAB: Show sodium 139, potassium 4.2, chloride 104, CO2 is 26, BUN 17, serum creatinine 1.43, hemoglobin 10.9 g/dL. ASSESSMENT: 1. Acute kidney injury secondary to hemodynamic instability with atrial fibrillation with RVR, currently improved. Serum creatinine staying at about 1.3-1.4 mg/dL. The patient did have his CTA done this morning. Second dose of Lasix is on hold. Patient did get a about 250 mL of saline. We will continue to monitor the renal function and try to avoid hypotension. 2. Atrial fibrillation with the heart rate slowly increasing again this evening. The patient is maintained on a Cardizem drip. He had been on amiodarone as well. 3. Severe mitral valve regurgitation, being evaluated by surgery for possible valvular surgery this week. 4. Pulmonary edema status post Lasix, currently doing fairly well. We will resume Lasix in a.m. Chest x-ray from today did show evidence of pulmonary vascular congestion. 5. Vent dependent respiratory failure, currently extubated. 6. Gangrene, left great toe and 2nd toe. PLAN: Resume Lasix later on tonight or tomorrow morning. Patient did receive did receive a dose this morning. Monitor urine output. Try to avoid hypotension if possible. MMODL / IJN: [id number] /
--- NOTE | 2017-09-18 23:48 | PN ---
PROGRESS NOTE DATE OF SERVICE: 09/18/2017 REASON FOR FOLLOW UP: 1. Left 2nd toe gangrene. 2. Patient with new fever. INTERVAL HISTORY: The patient did spike a fever of 101 degrees Fahrenheit around 2 in the morning. The patient has been afebrile since then. I was not notified of this fever. He is breathing comfortably on nasal cannula oxygen. Denies significant chest pain. Did have some shortness of breath. No cough. Denies abdominal pain. No diarrhea. The patient did have Beaulieu catheter. Denies any pain in the left foot area. PHYSICAL EXAMINATION: Blood pressure 108/77 with a pulse of 104, temperature of 98, T-max is 101. He is 100% on 5 L nasal cannula. General description is a middle aged male up in the bed, up in no distress. Respiratory system: Unlabored breathing, decreased breath sounds in the bases. No wheeze. Heart S1, S2. Stable rhythm. ABDOMEN: Soft, no tenderness. Left foot is currently dressed up. No obvious drainage on the dressing. LABS: Hemoglobin is 10.8, white count 7.2 with a BUN of 17, creatinine 1.43. Liver enzymes slightly elevated. DIAGNOSTIC IMPRESSION AND PLAN: Patient with a new fever. However, his white count is normal. Cultures were repeated. A chest x-ray this morning with features of fluid overload and no evidence of pneumonia. The left foot looks cellulitic. Cultures obtained. The patient monitored closely on antibiotic added. Depending on clinical response of the cultures. Continue supportive care. MMODL / IJN: [id number] /
[2017-09-19] MEDS: HYDROmorphone 2 MG TAB PO PRN ×2 (00:06→18:17)
[2017-09-19 00:14] LABS: Glucose,Whole Blood 133 mg/dL (75-99)
[2017-09-19 00:43] LABS: Appearance,Urine Clear (Clear); Bacteria,Urine Rare /hpf; Bilirubin,Urine Negative (Negative); Blood,Urine Small (Negative); Color,Urine Yellow; Glucose,Urine (UA) Negative (Negative); Ketones,Urine Negative (Negative); Leukocyte Esterase,Urine Negative (Negative); Protein,Urine Trace (Negative); RBC,Urine 63 /hpf (0-5); Specific Gravity,Urine 1.033 (1.001-1.035); WBC,Urine 2 /hpf (0-5)
[2017-09-19] MEDS: METOPROLOL TARTRATE 5 MG/5 ML VIAL IVP SCH ×3 (04:02→15:29)
[2017-09-19] MEDS: DILTIAZEM 125 MG in SODIUM CHLORIDE 0.9% 100 ML IV SCH (05:59)
[2017-09-19] MEDS: LEVOTHYROXINE 25 MCG TAB PO SCH (05:59)
[2017-09-19 06:17] LABS: Anisocytosis Slight; HCT 32.8 % (39.0-53.0); HGB 9.5 gm/dL (13.0-17.5); Hypochromasia Marked; MCH 27.3 pg (25.0-35.0); MCV 94.2 fL (80.0-100.0); Mean Platelet Volume 7.7; Platelet Count 291 k/uL (150-450); RBC 3.49 m/uL (4.30-5.90); RDW 16.2 % (11.5-15.5); WBC 5.3 k/uL (3.8-10.6)
[2017-09-19 06:33] LABS: ALT 115 U/L (21-72); AST 50 U/L (17-59); Albumin 2.8 g/dL (3.5-5.0); Alkaline Phosphatase 70 U/L (38-126); Anion Gap 9 mmol/L; Blood Urea Nitrogen 15 mg/dL (9-20); Calcium 8.6 mg/dL (8.4-10.2); Carbon Dioxide 25 mmol/L (22-30); Chloride 101 mmol/L (98-107); Glucose 96 mg/dL (74-99); Potassium 3.7 mmol/L (3.5-5.1); Sodium 135 mmol/L (137-145); Total Bilirubin 0.5 mg/dL (0.2-1.3); Total Protein 5.8 g/dL (6.3-8.2)
--- NOTE | 2017-09-19 06:37 | XR ---
EXAMINATION TYPE: XR chest 1V DATE OF EXAM: 09/19/2017 CLINICAL HISTORY: Difficulty breathing progress study. Mitral valve regurgitation and pulmonary fuad a per order. TECHNIQUE: Single AP portable upright view of the chest is obtained. COMPARISON: Chest x-ray from one day earlier and older studies. FINDINGS: Right-sided PICC line is stable in appearance. Cardiac silhouette size is stable and mildl y enlarged. There is mild central vascular congestion redemonstrated. There is small right pleural ef fusion now better visualized. No new suspicious focal airspace opacity or pneumothorax is seen. [place] us structures are intact. IMPRESSION: Cardiomegaly with persistent mild central vascular congestion redemonstrated with new sma ll right pleural effusion now noted.
[2017-09-19] MEDS ORDERED: POTASSIUM CHLORIDE ER 20 MEQ TAB.ER PO SCH (07:00)
[2017-09-19] MEDS: PANTOPRAZOLE 40 MG TABLET PO SCH (07:03)
[2017-09-19] MEDS: HEPARIN SOD,PORK IN 0.45% NACL 25,000 UNIT in 0.45% NACL 1 500ML.BAG IV SCH (07:03)
--- NOTE | 2017-09-19 07:16 | PN ---
PROGRESS NOTE DATE OF SERVICE: 09/18/17. ATTENDING NOTE: The patient seen and examined by me. Discussed with nurse practitioner, Ms. Glass. The patient is sitting up smiling on 5 L of oxygen. The patient remains in atrial fibrillation with heart rate in the 120s. Drips include IV Cordarone, IV amiodarone and IV heparin. EXAM: LUNGS: Decreased breath sounds. Cardiovascular 1st and 2nd sounds normal. INVESTIGATIONS: White count 7.2, hemoglobin 10.9, creatinine 1.43, potassium 4.2. ASSESSMENT: 1. Multiple medical problems. 2. Severe MR with possible surgery this coming up Monday. Antibiotics are to continue. Prognosis guarded. MMODL / IJN: [id number] /
[2017-09-19] MEDS: IPRATROPIUM-ALBUTEROL 3 ML NEB INHALATION SCH ×3 (08:26→20:15)
[2017-09-19] MEDS: MUPIROCIN 2% OINT 22 GM TUBE NASAL SCH ×2 (08:33→20:40)
[2017-09-19] MEDS: ASPIRIN 81 MG PO SCH (08:34)
[2017-09-19] MEDS: FLUoxetine HCL 20 MG CAP PO SCH (08:34)
[2017-09-19] MEDS: NICOTINE 21MG/24HR PATCH TRANSDERM SCH (08:34)
[2017-09-19] MEDS: SENNOSIDES 8.6 MG TAB PO SCH (08:34)
--- NOTE | 2017-09-19 09:06 | P.PN ---
Subjective Progress Note Date: 09/19/17 Principal diagnosis: Respiratory failure Progress note dated 09/11/2017 This is a 62-year-old black male who was admitted on September 06. He apparently was initially admitted with a diagnosis of sepsis with a gangrenous toe. He started in the ER went to the general medical floor and 18 was called because of respiratory failure and acidosis. He that reason he was intubated on September 06 and transferred to the ICU. He was extubated initially on September 08 and then reintubated again on September 11. This was today at 4:00 in the morning. The patient's x-ray shows diffuse bilateral infiltrates worse on the right than on the left side. His current ventilator settings include the assist control mode, rate of 12, an FiO2 of 70%, tidal Byam of 500, PEEP of 10. Arterial blood gases show a PaO2 of 88 a PaCO2 of 37 and a pH of 7.36. His current IVs include a saline IV at 20 mL an hour, heparin via weightbase protocol for atrial fibrillation propofol at 35 mics per kilogram per minute and Cordarone at 0.5 mg/m. The patient's x-rays labs medications are all reviewed. Microbiology is all negative. I asked the nurse to resume his tube feeds. Progress note dated September 12 2017 62-year-old black male who was admitted on September 06. He apparently was initially admitted with a diagnosis of sepsis with a gr gangrenous toe. He started in the ER want to the general medical floor and a rapid response was called because of respiratory failure and severe acidosis. He was intubated on September 06 and transferred to the intensive care unit. He was initially extubated on September 08 and then reintubated again on September 11. That was at 4 :00 in the morning. My partner was called. His chest x-ray yesterday showed diffuse bilateral pulmonary infiltrates worse on the right than on the left. We made some changes yesterday. The patient's chest x-ray today is much improved suggesting that he has mostly pulmonary edema/heart failure. In fact, the echocardiogram did reveal evidence of severe mitral regurgitation. The patient clinically is much better today. We are going to have the vascular service surgeon see him about the great toe. Likely, thoracic surgery would not want to do anything if there was active infection. The patient's FiO2 was dropped from 50-40%. In addition, we'll be able to make some significant PEEP changes today.His current vent settings are the assist control mode rate of 22 tidal volume 400 FiO2 40% and PEEP of 13. The PEEP can probably be dropped down from 13-10 later today. Arterial blood gases show a PaO2 of 177 a PaCO2 of 41 and a pH of 7.35. His is consistent with a very mild metabolic acidosis. The patient's on heparin via weightbase protocol, propofol at 45 mics per kilogram per minute dopamine which is currently off started earlier this morning for bradycardia a saline IV at 20 mL an hour and vital high protein at 56 with a goal of 56 mL per hour. Progress note dated 09/13/2017 62-year-old black male who was admitted on September 06. He was initially admitted with a diagnosis of sepsis with a gangrenous toe. He was initially admitted from the ER to the general medical floor and then subsequent to that a rapid response was called because of respiratory failure and severe metabolic acidosis. He was intubated later on September 06 and was transferred to the ICU. He was initially extubated on and then reintubated again early in the morning of September 11 for respiratory failure. His chest x-ray showing waxing waning diffuse bilateral pulmonary infiltrates. These infiltrates, likely represent heart failure, but could also relate to pneumonia/ acute lung injury. The patient's echocardiogram did reveal severe mitral regurgitation. Cardiology is looking into that. Also, we have vascular surgeon looking at the gangrenous toe. The patient's FiO2 was dropped from 50 to 40%. In addition, the PEEP was dropped recently from 13-10 8. Arterial blood gases are reviewed. He is on the assist control mode with a rate of 22. Tidal Byam is 400. Other than that, the patient seems to be doing about the same. I did speak to the infectious disease consultant teacher as well as a cardiology consult about this patient. Progress note dated 09/14/2017 62-year-old black male who was admitted back on September 06. He was initially admitted with a diagnosis of sepsis and a gangrenous toe. Vascular surgery saw the patient yesterday and determined that he had dry gangrene and no debridement or amputation was necessary. The patient was initially admitted from the emergency room to the general medical floor and subsequent to that a rapid response team was called because of respiratory failure and severe metabolic acidosis. He was moved he was intubated later on September 06 and was transferred to the ICU. The patient was then initially extubated on September 08 and the reintubated again early in the morning on September for respiratory failure. His pattern has been that of flash pulmonary edema although, acute lung injury/nosocomial pneumonia, could not be excluded. Mostly though, we believe it relates to heart failure from a case of severe mitral regurgitation. The patient underwent transesophageal echocardiogram this morning and was determined to have severe mitral regurgitation and thought to have an ejection fraction of 25%. He is scheduled for heart catheterization on September 15 and the patient will be seen by cardiothoracic surgery. Currently he is on IV heparin via weightbase protocol propofol at 45 mics per kilogram per minute, Cordarone at 0.5 mg/m Cardizem drip at 10 mg an hour saline IV at 20 mL an hour and vital high protein at 56 mL an hour with a goal of 56. The patient's vent settings include the assist control mode rate of 22 tidal volume of 400 FiO2 40% and PEEP of 5. Blood gases show a PaO2 of 103 a PaCO2 of 36 and a pH 7.45. This is consistent with mild respiratory alkalosis. The patient probably could be extubated. But because she is having a heart cath tomorrow, my inclination is to keep monitoring ventilator until then. Progress note dated 09/15/2017 62-year-old black male admitted back on September 06. The patient was initially admitted with a diagnosis of sepsis and a gangrenous toe. Vascular surgery seems to think that the toe represents dry gangrene and no additional debridement or amputation is necessary. The patient initially presented to the emergency room with an into the general medical floor. A rapid response was called. The patient developed respiratory failure and severe metabolic acidosis. He was moved to the ICU and intubated on September 06. He was extubated initially on in the reintubated early in the morning on September 11 for respiratory failure. His pattern has been that of a flash pulmonary edema. The patient also may be having a component of acute lung injury/nosocomial pneumonia. Anyway, the pulmonary edema is likely related mostly to card and myopathy as well as severe mitral regurgitation. The patient had a transesophageal echocardiogram yesterday and is going for cardiac catheterization today. The patient was maintained on mechanical ventilator because he was going for catheterization today. Hopefully, we can get him extubated later today. This depends on what is done. Currently, the patient's on the ventilator with the assist control mode rate of 22 breathing 24 times a minute, tidal volume of 400 FiO2 40% PEEP of 5. Arterial blood gases show a PaO2 of 98 a PaCO2 of 35 and a pH of 7.41. The patient's on a saline IV at KVO heparin is been turned off the Cardizem drip is running at 10 mg an hour and tube feeds are on hold. The patient's chest x-ray reveals some mild fluid overload. All in all though, the patient's much more stable. I have been turned to the family all along the fact, the family member is one of my primary patient to my office. This is the patient's nephew. Progress note dated 09/16/2017 62-year-old black male status post respiratory failure. The patient was extubated this morning. The patient had excellent weaning parameters and blood gases. We attempted yesterday to extubate the patient but he really wasn't ready for extubation. We did extubate him to BiPAP. He is on BiPAP at 12 and 5 and 40%. The patient was initially admitted back on September 06 with an episode of sepsis and a gangrenous toe. Because of worsening respiratory status , on the general medical floor, a rapid response team was called. The patient' s respiratory failure led him to be intubated and transferred to the ICU on September 06. He was initially extubated on seb second and reintubated on the morning of September 11. He is finally extubated today on September 16. The patient had a transesophageal echocardiogram which suggested poor cardiac function with an ejection fraction to be estimated at 20-25% and severe mitral regurgitation. The patient subsequently had a cardiac cardiac catheterization which revealed no evidence of coronary artery disease and again severe mitral regurgitation. The patient is apparently going to have a mitral valve replacement/repair done midweek by one of the cardiothoracic surgeons. Currently, the patient's on BiPAP at 12 and 5 and 40%. His chest x-ray shows fluid overload so he'll get some additional Lasix. His IV is a saline IV at KVO a Cardizem drip at 5 mg an hour Cordarone at 0.5 mL/m heparin via weightbase protocol and his tube feeds are currently off. He seemed pretty comfortable and there. Progress note dated 09/17/2017 62-year-old black male status post respiratory failure. He was extubated a couple days ago. Doing relatively well. The patient will likely have mitral valve repair/replacement midweek. The patient currently is just on some nasal O2. The patient had an uneventful night. The patient has no complaints today. The patient was initially admitted back on September 06 with an episode of respiratory failure. I rapid response team was called and the patient's respiratory failure led to intubation and transferred to the intensive care unit on September 06. He was initially extubated on September 08 and reintubated on the morning of . He was finally extubated on September 16. He had a transesophageal echocardiogram which showed severe mitral regurgitation. He sought to have an ejection fraction of about 20-25%. According to cardiac catheterization revealed no significant coronary disease. Again, planning to have mitral valve repair/replacement done midweek. Other than that, the patient is doing reasonably well. Progress note dated September 18, 2017 62-year-old white male status post respiratory failure. The patient has developed on and off flash pulmonary edema primarily from cardiac disease i.e. I severe mitral regurgitation. The patient was extubated a couple days ago by myself. The patient remains here in the ICU. The plan is for him to have either mitral valve repair or replacement on Monday. I the patient's chest x -ray shows worsening pulmonary edema today. He did spend some time on the BiPAP last night. Currently he is on O2 at 5 L by nasal cannula. He is on heparin via weightbase protocol amiodarone at 0.5 mg/m and a Cardizem drip at 10 mg an hour. Is getting also a saline IV and KVO. The patient feels well. Does not appear to have any respiratory distress distress or difficulty. Not coughing or wheezing. No chest pain or chest discomfort. The patient did have a transesophageal echocardiogram which showed severe mitral regurgitation. Also , his ejection fraction was estimated between 20 and 25 %. Finally, a cardiac catheterization revealed no evidence of coronary artery disease. Progress note dated 09/19/2017 62-year-old black male with a history of respiratory failure secondary to severe mitral regurgitation. The patient initially presented with respiratory distress. The patient was found to have significant valvular heart disease in the form of mitral regurgitation. He was also found to have significant cardiomyopathy. The patient was activated a couple days ago. The patient had a transesophageal echocardiogram and cardiac catheterization. Coronaries are clean. Initially the plan was to do surgery this week. It may be pushed off. The patient has a greater than 70% occlusion of the right internal carotid artery and a 50-69% occlusion of the left internal carotid artery. The patient' s currently on heparin via weightbase protocol oxygen at 2 L Cardizem drip at 10 mg an hour amiodarone a 0.5 mg/m saline IV at 20 mL an hour. The patient's overall situation has improved the last couple of days although the chest x-ray does still show some mild fluid overload. The patient was initially admitted on September 06 with an episode of sepsis and gangrenous toe. Because of worsening respiratory status, the patient was transferred to the general medical floor to the ICU where he was intubated. He was initially extubated on September 08 and reintubated on the morning of September 11. He was finally extubated on September 16 has remained off the ventilator. Objective - Vital Signs Vital signs: Vital Signs Temp 98.7 F 09/19/17 04:00 Pulse 123 H 09/19/17 08:39 Resp 13 09/19/17 07:00 BP 98/87 09/19/17 07:00 Pulse Ox 100 09/19/17 07:00 Intake & Output 09/18/17 09/19/17 09/19/17 18:59 06:59 18:59 Intake Total 1095 345 10 Output Total 1550 431 40 Balance -455 -86 -30 Weight 79.1 kg Intake: IV 170 120 10 Sodium Chloride 0.9% 1, 170 120 10 000 ml @ 20 mls/hr IV . Q24H AJ Rx#:[id number] Intake, IV Titration 625 125 Amount Diltiazem 125 mg In 125 125 Sodium Chloride 0.9% 100 ml @ 5 MG/HR 5 mls/hr IV .Q24H AJ Rx#:[id number] Heparin Sod,Pork in 0.45% 500 NaCl 25,000 unit In 0.45 % NaCl 1 500ml.bag @ 12 UNITS/KG/HR 18.74 mls/hr IV .Q24H AJ Rx#: [id number] Oral 300 100 Output: Urine 1550 430 40 Stool 1 Other: Voiding Method Indwelling Catheter Indwelling Catheter ABP, PAP, CO, CI - Last Documented Arterial Blood Pressure 125/83 - Exam No acute distress, currently on nasal O2.. HEENT examination is grossly unremarkable. Mucous membranes are moist. No oral lesions. Neck supple. Full range of motion. No adenopathy thyromegaly or neck vein distention. Cardiovascular examination reveals irregular rhythm rate. S1-S2 normal. No S3 or S4. Soft murmur is heard now the patient's extubated. Heart rate 120 Lungs reveal coarse bilateral breath sounds. Breath sounds are diminished. Mild bibasilar crackles. Breath sounds are diminished more on the right side than the left. Abdomen soft bowel sounds are heard. No masses or tenderness. Extremities are intact. No cyanosis clubbing or edema. Skin is without rash or lesion. Neurologic examination could not be performed. - Labs CBC & Chem 7: 09/19/17 05:51 09/19/17 05:51 Labs: Abnormal Lab Results - Last 24 Hours (Table) 09/19/17 09/19/17 09/19/17 Range/Units 00:11 00:20 05:51 RBC 3.49 L (4.30-5.90) m/uL Hgb 9.5 L (13.0-17.5) gm/dL Hct 32.8 L (39.0-53.0) % MCHC 29.0 L (31.0-37.0) g/dL RDW 16.2 H (11.5-15.5) % APTT (22.0-30.0) sec Sodium (137-145) mmol/L POC Glucose (mg/dL) 133 H (75-99) mg/dL ALT (21-72) U/L Total Protein (6.3-8.2) g/dL Albumin (3.5-5.0) g/dL Urine Protein Trace H (Negative) Urine Blood Small H (Negative) Urine RBC 63 H (0-5) /hpf Urine Bacteria Rare H (None) /hpf 09/19/17 09/19/17 Range/Units 05:51 05:51 RBC (4.30-5.90) m/uL Hgb (13.0-17.5) gm/dL Hct (39.0-53.0) % MCHC (31.0-37.0) g/dL RDW (11.5-15.5) % APTT 72.9 H (22.0-30.0) sec Sodium 135 L (137-145) mmol/L POC Glucose (mg/dL) (75-99) mg/dL ALT 115 H (21-72) U/L Total Protein 5.8 L (6.3-8.2) g/dL Albumin 2.8 L (3.5-5.0) g/dL Urine Protein (Negative) Urine Blood (Negative) Urine RBC (0-5) /hpf Urine Bacteria (None) /hpf Microbiology - Last 24 Hours (Table) 09/15/17 12:22 Blood Culture - Preliminary Blood No Growth after 72 hours Assessment and Plan Assessment: Assessment Acute hypoxemic respiratory failure secondary to sepsis/septic shock with a gangrenous toe and underlying cellulitis. Possible bilateral nosocomial pneumonia vs. acute lung injury Atrial fibrillation/RVR Congestive heart failure, secondary to severe mitral regurgitation and cardiomyopathy with an ejection fraction of 25% Intermittent sinus bradycardia History of CAD with previous stent placement History of COPD History of essential hypertension History of depression Peripheral vascular occlusive disease Hypothyroidism Hypertensive nephrosclerosis with chronic kidney disease, stage III Acute cellulitis and dry gangrene of the left big toe, status post debridement Bilateral carotid disease, worse on the right with a greater than 70% obstruction Plan: Plan dated 09/11/2017 The patient developed acute respiratory failure early this morning. My partner was called. He was reintubated. I'll make a slight change in the vent settings. We'll go with a low titer volume strategy. We'll drop a tidal volume from 500-400. We'll bump the rate from 16-24. PEEP will be increased from 10-13. I will review the labs x-rays a medications. We'll resume tube feeds. Prognosis is poor. Additional recommendations and suggestions are forthcoming. Plan dated 09/12/2017 Vascular surgery will come in to see the patient today.Labs x-rays a medications are all reviewed. The dopamine is now off. It was started for bradycardia. The patient's FiO2 was dropped from 50-40%. Likely will be able to make some PEEP changes as well. Chest x-ray is dramatically improved. We' ll continue to follow closely. Prognosis is guarded. The mitral valve issue is certainly likely the cause of the patient's flash pulmonary edema. He may even have mitral valve endocarditis. Plan dated 09/13/2017 The patient was seen by vascular surgery this morning. The surgeon feels like this is a dry gangrene and nothing active going on and no additional debridement or amputation is required. We'll let the infectious disease doctor know. The PEEP was dropped from 10 to 8. Gases are reviewed. His P/F ratio is 235 indicating mild ARDS. The chest x-ray is improved. Most of his issues in the lungs related to congestive heart failure because of the severe mitral regurgitation. We'll talk to cardiology about a CLARE as well as thoracic surgery about possible mitral valve repair/replacement. Plan dated 09/14/2017 The patient had his transesophageal echocardiogram today. His ejection fraction was estimated at 25% and he has severe mitral regurgitation. The patient scheduled for heart catheterization tomorrow. The patient will be maintained on the ventilator since then. Blood gases are reasonable. Chest x- rays improved although he did still has a pattern of some mild fluid overload. The patient remains on IV heparin via weightbase protocol propofol Cordarone and Cardizem and his tube feeds. Overall prognosis is poor. We'll continue to watch patient very closely. Additional recommendations and suggestions are forthcoming. Plan dated 09/15/2017 The patient is scheduled for a cardiac catheterization this morning. He had a transesophageal echocardiogram yesterday. His estimated ejection fraction was only 20-25% and he has Severe mitral regurgitation. The patient is maintained on mechanical ventilator. Labs x-rays a medications are all reviewed. No additional recommendations are made. Prognosis is guarded. We'll continue to follow closely. Plan dated 09/16/2017 The patient's of doing reasonably well. He was extubated this morning. His weaning parameters blood gases and so forth were all excellent. He passes cuff leak test. He maintains on Cardizem drip at 5 mg an hour amiodarone 0.5 mg/m and heparin via weightbase protocol. 2 feeds off. Ready to give him some additional Lasix. We'll watch him very closely. The plan is to do mitral valve repair/replacement midweek. Plan dated 09/17/2017 The patient's labs medications and x-rays are all reviewed. The patient's x- ray has significantly improved. He did receive some diuretics yesterday. The patient will need his carotid evaluated. He'll be gently hydrated for that. The patient still having atrial fibrillation. Currently on nasal O2. The patient looks much better today than he has since had been seeing him in the last the plan is mitral valve repair/replacement midweek. No additional recommendations are made. Plan dated 07/18/2018 The patient's doing well today. Chest x-ray shows a bit worsening of his underlying heart failure. The patient did spend a bit of time on BiPAP last night. Currently on nasal O2 at 5 L. Also receiving his IV heparin amiodarone and Cardizem drip for his irregular heart rate. We'll continue to follow closely. Prognosis is guarded. Anticipated mitral valve appeared/replacement on Monday. Plan dated 09/19/2017 The patient's doing reasonably well. His only on 2 L nasal cannula. Did not require BiPAP last night. I did speak to the cardiothoracic surgeon this morning. I think his feeling is to go ahead and have the patient's rhythm and rate controlled bit better. The patient remains on IV Cardizem and amiodarone. The surgeon feels that the right carotid disease should be dealt with. The patient's respiratory status has remained stable the last couple of days. He remains on IV heparin. Cardiology and cardiothoracic surgery need to get together formulate a plan. Labs x-rays a medications are all reviewed. Time spent with patient 36 minutes Time with Patient: Greater than 30
--- NOTE | 2017-09-19 09:25 | P.PN ---
Subjective Progress Note Date: 09/19/17 Principal diagnosis: Severe mitral valve regurgitation. Previous history of chronic persistent atrial fibrillation on Eliquis for anticoagulation, depression, peripheral artery disease, chronic nicotine dependence, chronic kidney disease stage III, hypertension, coronary artery disease with previous stent placement, GERD, and hypothyroidism. This 62-year-old gentleman presented to [facility] on 09/05/2017 with complaints of left foot pain and swelling, mainly to his left great toe after previous trauma. He was admitted for further treatment and evaluation. Subsequently he became unresponsive, bradycardic, and hypotensive. He was quickly intubated and taken to the intensive care unit for hemodynamic monitoring. He developed a lactic acidosis. In addition he developed atrial fibrillation. He was extubated, placed on BiPAP, and subsequently reintubated a few days later. A 2-D echocardiogram was completed which demonstrated normal left ventricular function with an ejection fraction between 55-60%, moderate aortic insufficiency, severe mitral regurgitation, mild tricuspid regurgitation. He then had a bedside transesophageal echocardiogram which demonstrated severe mitral valve regurgitation with a flail anterior leaflet, mild aortic insufficiency and severely impaired left ventricular function with an ejection fraction of 30-35%. Left heart catheterization was performed yesterday with no significant coronary stenosis. Cardiothoracic surgery was consulted for surgical repair of the patient's mitral valve. Status post cardiac catheterization on 09/25/2017 demonstrating a patent LAD stent and no significant coronary stenosis. Status post neck CTA demonstrating severe right internal carotid artery estimated at greater than 70%, moderate to severe narrowing of the proximal left internal carotid artery between 50-69%. Patient's currently sitting up in bed in no acute distress. Denies any pain or shortness of breath. Did not need BiPAP last night. Currently on 2 L nasal cannula with no distress noted. Discussed results of neck CTA with the patient , as well as recommendations for treatment of carotid artery stenosis prior to mitral valve surgery. Patient demonstrates understanding Objective - Vital Signs Vital signs: Vital Signs Temp 98.7 F 09/19/17 04:00 Pulse 123 H 09/19/17 08:39 Resp 13 09/19/17 07:00 BP 98/87 09/19/17 07:00 Pulse Ox 100 09/19/17 07:00 Intake & Output 09/18/17 09/19/17 09/19/17 18:59 06:59 18:59 Intake Total 1095 345 10 Output Total 1550 431 40 Balance -455 -86 -30 Weight 79.1 kg Intake: IV 170 120 10 Sodium Chloride 0.9% 1, 170 120 10 000 ml @ 20 mls/hr IV . Q24H AJ Rx#:[id number] Intake, IV Titration 625 125 Amount Diltiazem 125 mg In 125 125 Sodium Chloride 0.9% 100 ml @ 5 MG/HR 5 mls/hr IV .Q24H AJ Rx#:[id number] Heparin Sod,Pork in 0.45% 500 NaCl 25,000 unit In 0.45 % NaCl 1 500ml.bag @ 12 UNITS/KG/HR 18.74 mls/hr IV .Q24H AJ Rx#: [id number] Oral 300 100 Output: Urine 1550 430 40 Stool 1 Other: Voiding Method Indwelling Catheter Indwelling Catheter ABP, PAP, CO, CI - Last Documented Arterial Blood Pressure 125/83 - Constitutional General appearance: Present: cooperative, no acute distress - Respiratory Details: Lungs sounds coarse bilaterally. Respirations even, nonlabored. Currently on 2 L nasal cannula with oxygen saturations 95%. Able to achieve 7454-0444 mL on his incentive spirometry. - Cardiovascular Details: S1, S2 present. Irregular, tachycardia rate and rhythm, uncontrolled atrial fibrillation on telemetry. Palpable peripheral pulses bilaterally. No edema present. No calf. Her tenderness noted. SCDs present. - Gastrointestinal Gastrointestinal Comment(s): Abdomen soft, nontender, nondistended. Active bowel sounds 4 quadrants. Tolerating diet. - Genitourinary Genitourinary Comment(s): Beaulieu present draining clear yellow urine. Output 35-40 mL/h overnight. - Integumentary Integumentary Comment(s): Skin is warm and dry. - Neurologic Neurologic: Present: CNII-XII intact - Musculoskeletal Musculoskeletal: Present: strength equal bilaterally - Psychiatric Psychiatric: Present: A&O x's 3, appropriate affect, intact judgment & insight - Allied health notes Allied health notes reviewed: nursing - Labs CBC & Chem 7: 09/19/17 05:51 09/19/17 05:51 Labs: Abnormal Lab Results - Last 24 Hours (Table) 09/19/17 09/19/17 09/19/17 Range/Units 00:11 00:20 05:51 RBC 3.49 L (4.30-5.90) m/uL Hgb 9.5 L (13.0-17.5) gm/dL Hct 32.8 L (39.0-53.0) % MCHC 29.0 L (31.0-37.0) g/dL RDW 16.2 H (11.5-15.5) % APTT (22.0-30.0) sec Sodium (137-145) mmol/L POC Glucose (mg/dL) 133 H (75-99) mg/dL ALT (21-72) U/L Total Protein (6.3-8.2) g/dL Albumin (3.5-5.0) g/dL Urine Protein Trace H (Negative) Urine Blood Small H (Negative) Urine RBC 63 H (0-5) /hpf Urine Bacteria Rare H (None) /hpf 09/19/17 09/19/17 Range/Units 05:51 05:51 RBC (4.30-5.90) m/uL Hgb (13.0-17.5) gm/dL Hct (39.0-53.0) % MCHC (31.0-37.0) g/dL RDW (11.5-15.5) % APTT 72.9 H (22.0-30.0) sec Sodium 135 L (137-145) mmol/L POC Glucose (mg/dL) (75-99) mg/dL ALT 115 H (21-72) U/L Total Protein 5.8 L (6.3-8.2) g/dL Albumin 2.8 L (3.5-5.0) g/dL Urine Protein (Negative) Urine Blood (Negative) Urine RBC (0-5) /hpf Urine Bacteria (None) /hpf Microbiology - Last 24 Hours (Table) 09/15/17 12:22 Blood Culture - Preliminary Blood No Growth after 72 hours - Imaging and Cardiology Chest x-ray: report reviewed, image reviewed Assessment and Plan (1) Acute and chronic respiratory failure with hypoxia Current Visit: Yes Status: Acute Code(s): J96.21 - ACUTE AND CHRONIC RESPIRATORY FAILURE WITH HYPOXIA SNOMED Code(s): 46048807 (2) COPD (chronic obstructive pulmonary disease) Current Visit: Yes Status: Chronic Code(s): J44.9 - CHRONIC OBSTRUCTIVE PULMONARY DISEASE, UNSPECIFIED SNOMED Code(s): 49094424 (3) Chronic kidney disease, stage III (moderate) Current Visit: Yes Status: Chronic Code(s): N18.3 - CHRONIC KIDNEY DISEASE, STAGE 3 (MODERATE) SNOMED Code(s): 229078501 (4) Gangrenous toe Current Visit: Yes Status: Chronic Code(s): I96 - GANGRENE, NOT ELSEWHERE CLASSIFIED SNOMED Code(s): 019042248 (5) History of bradycardia Current Visit: No Status: Resolved Code(s): Z86.79 - PERSONAL HISTORY OF OTHER DISEASES OF THE CIRCULATORY SYSTEM SNOMED Code(s): 733897639133158 (6) History of coronary artery disease Current Visit: No Status: Resolved Code(s): Z86.79 - PERSONAL HISTORY OF OTHER DISEASES OF THE CIRCULATORY SYSTEM SNOMED Code(s): 570405642 (7) History of depression Current Visit: Yes Status: Chronic Code(s): Z86.59 - PERSONAL HISTORY OF OTHER MENTAL AND BEHAVIORAL DISORDERS SNOMED Code(s): 493225829 (8) Hypertension Current Visit: Yes Status: Chronic Code(s): I10 - ESSENTIAL (PRIMARY) HYPERTENSION SNOMED Code(s): 65152407 (9) Hypothyroidism Current Visit: Yes Status: Chronic Code(s): E03.9 - HYPOTHYROIDISM, UNSPECIFIED SNOMED Code(s): 17408191 (10) Peripheral vascular disease Current Visit: Yes Status: Chronic Code(s): I73.9 - PERIPHERAL VASCULAR DISEASE, UNSPECIFIED SNOMED Code(s): 459160006 (11) New onset a-fib Current Visit: Yes Status: Acute Code(s): I48.91 - UNSPECIFIED ATRIAL FIBRILLATION SNOMED Code(s): 75268546 (12) Carotid artery stenosis Current Visit: Yes Status: Chronic Code(s): I65.29 - OCCLUSION AND STENOSIS OF UNSPECIFIED CAROTID ARTERY SNOMED Code(s): 47356867 Plan: 1. Plan is for mitral valve repair versus replacement. Patient will need to have carotid artery stenosis addressed with stenting versus endarterectomy prior to finalized plans for mitral valve surgery. 2. Wean O2 as tolerated. Encourage incentive spirometry use. 3. Continue heparin drip, Cardizem drip, amiodarone drip, aspirin, beta skylar per cardiology management. 4. Bronchodilators per pulmonology. 5. Avoid nephrotoxic agents. 6. Increase activity, ambulate as tolerated. PT/OT following. 7. Patient has received dental clearance for valve surgery. 8. More recommendations to follow. Time with Patient: Greater than 30
[2017-09-19] MEDS ORDERED: AMIODARONE 200 MG TAB PO SCH (10:45)
--- NOTE | 2017-09-19 11:13 | P.PN ---
Subjective Progress Note Date: 09/19/17 This patient remains intubated and sedated. Patient is in atrial fibrillation now. Rate is controlled with combination of Cardizem and amiodarone. Patient was seen by Dr. Addison and felt that is a ganglion the left foot is stable and doesn't need any surgical intervention. I spoke with Dr. Godoy regarding evaluation of hi mitral regurgitation and is going to do CLARE tomorrow morning. He is going to keep him intubated until the CLARE is performed. If necessary we' ll get a consult from the cardiac surgeons. Meanwhile patient will stay on current medical therapy. Progress note for 09/16/2017: This patient still having a intermittent bouts of atrial fibrillation alternating with bradycardia and he converts into sinus rhythm. Patient is on amiodarone and also Cardizem drip and bolus of metoprolol. Pulmonary is trying to wean him off the respirator. Cardiac surgeons apparently cannot do the surgery for several days. His cardiac catheterization revealed evidence of significant mitral regurg with an ejection fraction of 50-55%. No significant obstructive coronary artery disease noted. Prognosis is guarded. Progress note for 09/17/2017: This patient was extubated yesterday. He is alert and oriented and doesn't appear to be in acute distress. He is in atrial fibrillation with moderately rapid ventricular response. Denies any chest pain. Examination the heart reveals irregular heart rhythm with murmur at the apex. Lungs show good air entry. Waiting to have mitral valve repair on Monday. Progress note for 09/18/2017: Patient remains extubated. Denies any chest pain or shortness of breath. A chest x-ray showed evidence of CHF. Diuretic dose is being increased. Patient is maintaining atrial flutter fib with a heart rate of 110. Lungs are clear. Heart is irregular. We'll continue current management. Mitral valve replacement planned for Monday Progress note for 09/19/2017: This patient remains stable since yesterday. Sitting up in the chair without any acute distress. Chest x-ray shows some improvement. Patient continues to be in atrial flutter fib with heart rates varying between 100 to 1:30. We will switch amiodarone to by mouth and probably swith Cardizem to by mouth tomorrow. He is also on IV heparin. Patient has apparently significant focal carotid disease. Patient is being seen by Dr. Walker for possible stent placement. We will continue current management Objective - Vital Signs Vital signs: Vital Signs Temp 98.1 F 09/19/17 08:00 Pulse 102 H 09/19/17 10:00 Resp 14 09/19/17 10:00 BP 115/78 09/19/17 10:00 Pulse Ox 97 09/19/17 10:00 Intake & Output 09/18/17 09/19/17 09/19/17 18:59 06:59 18:59 Intake Total 1095 345 50 Output Total 1550 431 180 Balance -455 -86 -130 Weight 79.1 kg Intake: IV 170 120 50 Sodium Chloride 0.9% 1, 170 120 50 000 ml @ 20 mls/hr IV . Q24H AJ Rx#:[id number] Intake, IV Titration 625 125 Amount Diltiazem 125 mg In 125 125 Sodium Chloride 0.9% 100 ml @ 5 MG/HR 5 mls/hr IV .Q24H AJ Rx#:[id number] Heparin Sod,Pork in 0.45% 500 NaCl 25,000 unit In 0.45 % NaCl 1 500ml.bag @ 12 UNITS/KG/HR 18.74 mls/hr IV .Q24H AJ Rx#: [id number] Oral 300 100 Output: Urine 1550 430 180 Stool 1 Other: Voiding Method Indwelling Catheter Indwelling Catheter ABP, PAP, CO, CI - Last Documented Arterial Blood Pressure 125/83 - Exam GENERAL EXAM: Patient is alert and oriented HEENT: Normocephalic. N CHEST: No chest wall deformity. LUNGS: Diminished breath sounds HEART: S1 and S2 normal. Systolic murmur heard at the apex ABDOMEN: No hepatosplenomegaly, normal bowel sounds, no guarding or rigidity. SKIN: No rashes CENTRAL NERVOUS SYSTEM: No focal deficits. EXTREMITIES: Dry gangrenous changes on the left foot - Labs CBC & Chem 7: 09/19/17 05:51 09/19/17 05:51 Labs: Abnormal Lab Results - Last 24 Hours (Table) 09/19/17 09/19/17 09/19/17 Range/Units 00:11 00:20 05:51 RBC 3.49 L (4.30-5.90) m/uL Hgb 9.5 L (13.0-17.5) gm/dL Hct 32.8 L (39.0-53.0) % MCHC 29.0 L (31.0-37.0) g/dL RDW 16.2 H (11.5-15.5) % APTT (22.0-30.0) sec Sodium (137-145) mmol/L POC Glucose (mg/dL) 133 H (75-99) mg/dL ALT (21-72) U/L Total Protein (6.3-8.2) g/dL Albumin (3.5-5.0) g/dL Urine Protein Trace H (Negative) Urine Blood Small H (Negative) Urine RBC 63 H (0-5) /hpf Urine Bacteria Rare H (None) /hpf 09/19/17 09/19/17 Range/Units 05:51 05:51 RBC (4.30-5.90) m/uL Hgb (13.0-17.5) gm/dL Hct (39.0-53.0) % MCHC (31.0-37.0) g/dL RDW (11.5-15.5) % APTT 72.9 H (22.0-30.0) sec Sodium 135 L (137-145) mmol/L POC Glucose (mg/dL) (75-99) mg/dL ALT 115 H (21-72) U/L Total Protein 5.8 L (6.3-8.2) g/dL Albumin 2.8 L (3.5-5.0) g/dL Urine Protein (Negative) Urine Blood (Negative) Urine RBC (0-5) /hpf Urine Bacteria (None) /hpf Microbiology - Last 24 Hours (Table) 09/15/17 12:22 Blood Culture - Preliminary Blood No Growth after 72 hours Assessment and Plan (1) CAD (coronary artery disease) Current Visit: Yes Status: Acute Code(s): I25.10 - ATHSCL HEART DISEASE OF [place] CORONARY ARTERY W/O ANG PCTRS SNOMED Code(s): 43943940 (2) Peripheral vascular disease Current Visit: Yes Status: Chronic Code(s): I73.9 - PERIPHERAL VASCULAR DISEASE, UNSPECIFIED SNOMED Code(s): 740474169 (3) New onset a-fib Current Visit: Yes Status: Acute Code(s): I48.91 - UNSPECIFIED ATRIAL FIBRILLATION SNOMED Code(s): 37180714 (4) Acute pulmonary edema Current Visit: Yes Status: Acute Code(s): J81.0 - ACUTE PULMONARY EDEMA SNOMED Code(s): 28522189 (5) Pneumonia Current Visit: Yes Status: Acute Code(s): J18.9 - PNEUMONIA, UNSPECIFIED ORGANISM SNOMED Code(s): 504428574 Plan: Patient is clinically stable. Patient is in atrial fibrillation with moderately rapid ventricular response which is variable between 110 to 130. Patient is tolerating it very well. The patient has critical carotid disease. Dr. Walker apparently is going to do stent placement. Meanwhile we'll continue current management
[2017-09-19] MEDS ORDERED: FUROSEMIDE 10 MG/ML 4 ML VIAL IV STA (11:48)
[2017-09-19] MEDS: MAGNESIUM SULFATE-D5W PMX 1 GM in DEXTROSE/WATER 1 100ML.BAG IVPB SCH ×2 (12:22→15:26)
[2017-09-19] MEDS: SODIUM CHLORIDE 0.9% 1,000 ML IV SCH (15:28)
[2017-09-19] MEDS ORDERED: METOPROLOL TARTRATE 5 MG/5 ML VIAL IVP STA (16:37)
--- NOTE | 2017-09-19 16:45 | P.PN ---
Progress Note - Text Progress Note Date: 09/19/17 DATE OF SERVICE: 09/19/2017 PRESENTING COMPLAINT: Atrial fibrillation, mitral valve repair pending. HISTORY OF PRESENT ILLNESS: 62-year-old male who was admitted with an infected left toe from recent trauma. Failed outpatient treatment. When internal arrhythmia, then went into respiratory failure and was intubated. Was extubated and had to be reintubated. Remains on the ventilator FiO2 of 40 and a PEEP of 5. Currently in atrial fibrillation with rapid ventricular rate and pauses. Remains on amiodarone and Cardizem drip as well as IV heparin and propofol. Had a CLARE on 09/14/2017 and found to have severe mitral regurgitation. INTERVAL HISTORY: 09/19/2017: Sitting up in the chair visiting with a friend very comfortable wide awake able to answer all questions no shortness of breath or chest pains noted. Continues to be in atrial fibrillation rapid ventricular response amiodarone and Cardizem drip continue as well as heparin. Plans by cardiology to switch to oral Cardizem and amiodarone. Carotid ultrasound done yesterday found significant stenosis bilaterally. Cardiothoracic surgery team holding on mitral valve repair until significant stenosis bilaterally is taking care of. Tolerating his diet eating 75 to auto percent of his meals. Up with assistance, last BM . 09/18/2017: Patient lying in bed appears very comfortable wide awake able to answer all questions conversation is easy, overnight patient had be placed on the BiPAP for little bit. X-ray this morning shows worsening pulmonary edema. States his appetite is improving but continues to be difficult to eat. Eating between 20 and 50% of his meals. Continues on amiodarone and Cardizem drip as well as heparin. Tentative plan for mitral valve repair on Monday or of this week. 09/17/2017: Sitting up in a chair at the bedside, appears very comfortable wide awake alert able to answer questions conversation flows easily. States his appetite is pretty low, food doesn't taste very good to him. He ate about 20-30% of his breakfast. Remains in the ICU on amiodarone and Cardizem drip as well as heparin. Continues to have bursts of atrial fibrillation with RVR and alternating bradycardia when converting into sinus rhythm. 09/16/2017: Lying in bed awake intubated participating in a spontaneous breathing trial in an attempt for extubation. Weaning trial attempted yesterday without success. Surgical intervention planned for next week for the mitral valve. Remains in the ICU on propofol, amiodarone drip, Cardizem drip, metoprolol, and heparin drip. Patient does have bursts of atrial fibrillation and RVR as well as alternating with bradycardia with converting into sinus rhythm. Nutritional support in the form of enteral feedings, currently on bed rest due to intubation , last BM not documented in the patient chart 09/15/2017: Lying in bed awake intubated, status post catheterization in which his LAD has a stent that is patent, circumflex is free of significant stenosis of right coronary artery is dominant vessel and free of stenosis. Has 3+ mitral regurgitation, await input from cardiothoracic surgery regarding repair/replace mitral valve. Remains in the ICU on propofol, amiodarone drip, Cardizem drip, may extubate patient later today if there is no immediate surgical intervention for the mitral valve. REVIEW OF SYSTEMS: Done for constitutional cardiovascular GI pulmonary with relevant findings as above. CURRENT MEDICATIONS Acetaminophen, DuoNeb, amiodarone drip, aspirin, diltiazem drip, Prozac, heparin drip, insulin sliding scale, Synthroid, Lopressor, nicotine patch, Bactroban ointment, Protonix, Zosyn, senna, 0.9% sodium chloride at 20 mL an hour. PHYSICAL EXAM VITAL SIGNS: Temperature 98.4, pulse 92, respiratory rate 22, blood pressure 95/67, oxygen saturation 97% on 4 L. GENERAL APPEARANCE: Sitting up in a chair appears comfortable visiting with a friend. HENT: Normocephalic, JVD not raised. Mass not palpable. Oral cavity poor dentition dry mucous membranes, external appearance of ears and nose normal, EYES:Pupils equal. Conjunctiva normal. RESPIRATORY: Respiratory effort normal. Lungs decreased bilaterally to auscultation. CARDIOVASCULAR: Irregular rhythm No edema. ABDOMEN: Soft. Liver and spleen not palpable. No tenderness. No mass palpable. GENITOURINARY: Beaulieu catheter in place with clear yellow urine. PSYCHIATRY: Alert and oriented x3. Mood and affect normal. EXTREMITIES: Infection of the left big toe INTEGUMENT: Right great toe dressing intact no drainage noted INVESTIGATIONS: LABS: Hemoglobin 9.5, sodium 135, ALTs 115 Chest x-ray: Cardiomegaly with persistent mild central vascular congestion demonstrated with new small right pleural effusion now noted. Neck CTA: Severe stenosis origin of the right internal carotid artery stenosis is estimated at greater than 70%. Moderate to severe narrowing of the proximal internal left carotid artery approaching severe but between 50 and 69% narrowing. Cardiac catheterization: LAD stented with this patent stent, circumflex free of significant stenosis, right coronary artery is large dominant vessel free of stenosis. ASSESSMENT: -Acute right great toe cellulitis and wound secondary to trauma with possible dry gangrene, expected to auto amputate, having failed outpatient treatment. -Right internal carotid artery stenosis greater than 70% in a patient with significant coronary artery disease and valvular disease. -Acute hypoxic respiratory failure secondary to sepsis currently on nasal cannula. -Bilateral pneumonia, suspect gram-negative organism, possibly causing sepsis resolved -Acute pulmonary edema, from underlying severe mitral regurgitation.. -Acute metabolic acidosis, compensatory -Acute kidney injury secondary to acute tubular necrosis secondary to sepsis with some biochemical improvement. -Acute shock liver, biochemical improvement, from hypotension. -Persistent atrial fibrillation, uncontrolled patient is on a heparin drip.Amiodarone and Cardizem continue -Chronic kidney disease stage III from nephrosclerosis with a baseline creatinine of 1.3. -Acute chronic obstructive pulmonary disease exacerbation in a current smoker. -Chronic nicotine dependence in a cigarette smoker. -Coronary artery disease, prior history of stent. -Hypothyroidism. -Essential hypertension, history. -Hyperlipidemia. -Peripheral artery disease. -Depression, anxiety, not otherwise specified. -Severe mitral regurgitation as per transesophageal echocardiogram, mitral valve repair midweek. -Status post cardiac catheterization with patent stent to the LAD, circumflex free of significant stenosis right coronary artery is free of stenosis. PLAN: Patient remains on IV amiodarone and Cardizem, IV heparin which will be switched by cardiology to orals later today. Originally, Tentative plans from cardiothoracic surgery for mitral valve repair Monday this week, however right carotid artery has significant stenosis which should be dealt with prior to mitral valve surgery. Await input from cardiology/Dr. Walker. And they will also continue their current medication management.. Dry gangrene of the left big toe and second toe will be managed by vascular surgery at a later date and time once patient's cardiac status is stabilized. Plan of care discussed at the bedside we will follow closely. GEAR REPAIRER statement: Patient was seen and examined by nurse practitioner Xiao Glass and all elements of the case discussed with attending Dr. Alston
--- NOTE | 2017-09-19 17:28 | PN ---
PROGRESS NOTE Patient is seen for followup for acute kidney injury. He had a CTA done yesterday which showed significant carotid artery stenosis and is scheduled for carotid artery revascularization in the next couple of days and a mitral valve repair versus replacement will be done as outpatient after discharge. Currently patient is sitting up in the bedside chair. He is awake. He is comfortable. He has had a fair amount of urine output. Heart rate stays about 115 to 120 per minute. Blood pressure has been at the 123 to 95 mmHg systolic. EXAMINATION OF THE HEART: S1 and S2 irregular, tachycardic. EXAMINATION OF LUNGS: Decreased breath sounds at the bases. No significant crackles are heard. ABDOMEN: Soft, non-tender. Examination of lower extremities shows no significant edema. LABS: Serum creatinine 1.2, sodium 135, potassium 3.7. Hemoglobin was 9.5 g/dL. ASSESSMENT: 1. Acute kidney injury, currently improved. Patient received IV contrast yesterday. His creatinine is stable at this time. Continue to try to avoid significant hypotension. We will resume Lasix. I will give him one dose today. Chest x-ray from today shows persistent mild central vascular congestion. 2. Significant mitral valve regurgitation with plans for valvular heart surgery post discharge. 3. Pulmonary edema, currently improved. 4. Vent-dependent respiratory failure, currently extubated. 5. Atrial fibrillation with fairly controlled ventricular response, maintained on Cardizem drip and oral amiodarone. 6. Dry gangrene, left second toe and great toe, currently stable. PLAN: Lasix x1. Repeat labs in a.m. MMODL / IJN: [id number] /
--- NOTE | 2017-09-19 19:40 | PN ---
PROGRESS NOTE DATE OF SERVICE: 09/19/17 ATTENDING NOTE: The patient was seen and examined by me. Discussed with my nurse practitioner Ms. Glass. The patient is sitting up in the ICU. Remains in atrial fibrillation on control. A little more comfortable. EXAM: Decreased breath sounds. HEART: Sounds irregular. INVESTIGATIONS: White count 5.3, hemoglobin 9.5, potassium 3.7. Neck CTA shows bilateral significant stenosis more so on the right than the left internal carotid artery. ASSESSMENT: 1. Bilateral internal carotid artery stenosis greater than 90% on the right side, approaching that on the left side. 2. Severe mitral regurgitation. 3. Chronic obstructive pulmonary disease. PLAN: The patient remains on IV amiodarone, IV Cardizem and IV heparin. It appears Dr. Gordon may be doing a right carotid stent and then cardiothoracic will go in for the valve replacement down the road. Follow. SOLO / IJN: [id number] /
[2017-09-19] MEDS: BISACODYL 10 MG SUPP RECTAL SCH (20:39)
[2017-09-19] MEDS: AMIODARONE 450 MG in DEXTROSE 5% IN WATER 250 ML IV SCH ×2 (21:22)
--- NOTE | 2017-09-19 22:04 | PN ---
PROGRESS NOTE DATE OF SERVICE: 09/19/2017 REASON FOR FOLLOWUP: 1. Left first and second toe wound with a question of gangrene. 2. Fever. INTERVAL HISTORY: The patient has had no further fever. He has been breathing comfortably. Denies having any chest pain. Minimal shortness of breath. Occasional cough. No abdominal pain. No diarrhea. PHYSICAL EXAMINATION: Blood pressure 101/69 with a pulse of 126, temperature 98.5. He is 99% on 4 L nasal cannula. General description is an elderly male up in the bed in no distress. RESPIRATORY SYSTEM: Unlabored breathing. Clear to auscultation anteriorly. HEART: S1, S2. Regular rate and rhythm. ABDOMEN: Soft. No tenderness. EXTREMITIES: No edema of feet. Left foot second toe mostly dry changes. No drainage. LABS: Hemoglobin 9.5, white count 5.3 with a BUN of 15, creatinine 1.20. UA done yesterday has been negative. Stool for C difficile has been negative. DIAGNOSTIC IMPRESSION AND PLAN: 1. Patient with left first and second toe cellulitis with a wound that is adequately treated. Now it has some features of small dry gangrene, for which the patient is being seen by Vascular Surgery. 2. Patient with new fever yesterday. So far workup has been negative. UA was negative. Chest x-ray mostly CHF and no evidence of any cellulitis. Left foot area will be monitored closely off antibiotic. Continue with supportive care. MMODL / IJN: [id number] /
[2017-09-20] MEDS: METOPROLOL TARTRATE 5 MG/5 ML VIAL IVP SCH ×3 (00:16→18:57)
[2017-09-20 04:48] LABS: ALT 109 U/L (21-72); AST 46 U/L (17-59); Alkaline Phosphatase 70 U/L (38-126); Anion Gap 8 mmol/L; Blood Urea Nitrogen 16 mg/dL (9-20); Calcium 8.7 mg/dL (8.4-10.2); Carbon Dioxide 24 mmol/L (22-30); Chloride 103 mmol/L (98-107); Glucose 111 mg/dL (74-99); Potassium 3.8 mmol/L (3.5-5.1); Sodium 135 mmol/L (137-145); Total Bilirubin 0.3 mg/dL (0.2-1.3)
[2017-09-20] MEDS: IPRATROPIUM-ALBUTEROL 3 ML NEB INHALATION SCH ×3 (07:27→19:13)
[2017-09-20] MEDS: LEVOTHYROXINE 25 MCG TAB PO SCH (07:39)
[2017-09-20] MEDS: PANTOPRAZOLE 40 MG TABLET PO SCH (07:40)
--- NOTE | 2017-09-20 07:56 | P.PN ---
Subjective Progress Note Date: 09/20/17 Principal diagnosis: Severe mitral valve regurgitation. Previous history of chronic persistent atrial fibrillation on Eliquis for anticoagulation, depression, peripheral artery disease, chronic nicotine dependence, chronic kidney disease stage III, hypertension, coronary artery disease with previous stent placement, GERD, and hypothyroidism. This 62-year-old gentleman presented to [facility] on 09/05/2017 with complaints of left foot pain and swelling, mainly to his left great toe after previous trauma. He was admitted for further treatment and evaluation. Subsequently he became unresponsive, bradycardic, and hypotensive. He was quickly intubated and taken to the intensive care unit for hemodynamic monitoring. He developed a lactic acidosis. In addition he developed atrial fibrillation. He was extubated, placed on BiPAP, and subsequently reintubated a few days later. A 2-D echocardiogram was completed which demonstrated normal left ventricular function with an ejection fraction between 55-60%, moderate aortic insufficiency, severe mitral regurgitation, mild tricuspid regurgitation. He then had a bedside transesophageal echocardiogram which demonstrated severe mitral valve regurgitation with a flail anterior leaflet, mild aortic insufficiency and severely impaired left ventricular function with an ejection fraction of 30-35%. Left heart catheterization was performed yesterday with no significant coronary stenosis. Cardiothoracic surgery was consulted for surgical repair of the patient's mitral valve. Status post cardiac catheterization on 09/25/2017 demonstrating a patent LAD stent and no significant coronary stenosis. Status post neck CTA demonstrating severe right internal carotid artery estimated at greater than 70%, moderate to severe narrowing of the proximal left internal carotid artery between 50-69%. Patient's currently sitting up in bed in no acute distress. Denies any pain or shortness of breath. no new concerns at this time. Objective - Vital Signs Vital signs: Vital Signs Temp 99.6 F 09/20/17 04:00 Pulse 130 H 09/20/17 07:37 Resp 16 09/20/17 07:00 BP 94/69 09/20/17 07:00 Pulse Ox 93 L 09/20/17 07:00 Intake & Output 09/19/17 09/20/17 09/20/17 18:59 06:59 18:59 Intake Total 480 170 20 Output Total 1711 450 30 Balance -1231 -280 -10 Weight 77.6 kg Intake: IV 130 170 20 Sodium Chloride 0.9% 1, 130 170 20 000 ml @ 20 mls/hr IV . Q24H [facility] Rx#:[id number] Oral 350 Output: Urine 1710 450 30 Stool 1 Other: Voiding Method Indwelling Catheter Indwelling Catheter ABP, PAP, CO, CI - Last Documented Arterial Blood Pressure 125/83 - Constitutional General appearance: Present: cooperative, no acute distress - Respiratory Details: lungs sounds diminished bilaterally. Respirations even, nonlabored. Currently on 5 L nasal cannula with oxygen saturation 93%. - Cardiovascular Details: S1, S2 present. Irregular tachycardia rate and rhythm, uncontrolled atrial fibrillation on telemetry. Palpable pulses bilaterally. No edema present.pain or tenderness noted. SCDs present. - Gastrointestinal Gastrointestinal Comment(s): abdomen soft, nontender, nondistended. Active bowel sounds 4 quadrants. Tolerating diet. - Genitourinary Genitourinary Comment(s): [place] present draining clear, yellow urine. Output 35-45 mL/h overnight. - Integumentary Integumentary Comment(s): skin is warm and dry. - Neurologic Neurologic: Present: CNII-XII intact - Musculoskeletal Musculoskeletal: Present: gait normal, strength equal bilaterally - Psychiatric Psychiatric: Present: A&O x's 3, appropriate affect, intact judgment & insight - Allied health notes Allied health notes reviewed: nursing - Labs CBC & Chem 7: 09/19/17 05:51 09/20/17 03:36 Labs: Abnormal Lab Results - Last 24 Hours (Table) 09/20/17 Range/Units 03:36 Sodium 135 L (137-145) mmol/L Creatinine 1.40 H (0.66-1.25) mg/dL Glucose 111 H (74-99) mg/dL ALT 109 H (21-72) U/L Total Protein 6.0 L (6.3-8.2) g/dL Albumin 3.0 L (3.5-5.0) g/dL Microbiology - Last 24 Hours (Table) 09/15/17 12:22 Blood Culture - Preliminary Blood No Growth after 96 hours 09/19/17 06:00 Urine Culture - Preliminary Urine,Catheterized Assessment and Plan (1) Acute and chronic respiratory failure with hypoxia Current Visit: Yes Status: Acute Code(s): J96.21 - ACUTE AND CHRONIC RESPIRATORY FAILURE WITH HYPOXIA SNOMED Code(s): 98816756 (2) COPD (chronic obstructive pulmonary disease) Current Visit: Yes Status: Chronic Code(s): J44.9 - CHRONIC OBSTRUCTIVE PULMONARY DISEASE, UNSPECIFIED SNOMED Code(s): 67517266 (3) Chronic kidney disease, stage III (moderate) Current Visit: Yes Status: Chronic Code(s): N18.3 - CHRONIC KIDNEY DISEASE, STAGE 3 (MODERATE) SNOMED Code(s): 660051813 (4) Gangrenous toe Current Visit: Yes Status: Chronic Code(s): I96 - GANGRENE, NOT ELSEWHERE CLASSIFIED SNOMED Code(s): 044525314 (5) History of bradycardia Current Visit: No Status: Resolved Code(s): Z86.79 - PERSONAL HISTORY OF OTHER DISEASES OF THE CIRCULATORY SYSTEM SNOMED Code(s): 542033767904935 (6) History of coronary artery disease Current Visit: No Status: Resolved Code(s): Z86.79 - PERSONAL HISTORY OF OTHER DISEASES OF THE CIRCULATORY SYSTEM SNOMED Code(s): 345146005 (7) History of depression Current Visit: Yes Status: Chronic Code(s): Z86.59 - PERSONAL HISTORY OF OTHER MENTAL AND BEHAVIORAL DISORDERS SNOMED Code(s): 155088843 (8) Hypertension Current Visit: Yes Status: Chronic Code(s): I10 - ESSENTIAL (PRIMARY) HYPERTENSION SNOMED Code(s): 68634707 (9) Hypothyroidism Current Visit: Yes Status: Chronic Code(s): E03.9 - HYPOTHYROIDISM, UNSPECIFIED SNOMED Code(s): 27592627 (10) Peripheral vascular disease Current Visit: Yes Status: Chronic Code(s): I73.9 - PERIPHERAL VASCULAR DISEASE, UNSPECIFIED SNOMED Code(s): 926074750 (11) New onset a-fib Current Visit: Yes Status: Acute Code(s): I48.91 - UNSPECIFIED ATRIAL FIBRILLATION SNOMED Code(s): 33471293 (12) Carotid artery stenosis Current Visit: Yes Status: Chronic Code(s): I65.29 - OCCLUSION AND STENOSIS OF UNSPECIFIED CAROTID ARTERY SNOMED Code(s): 30946734 (13) Mitral valve regurgitation Current Visit: Yes Status: Chronic Code(s): I34.0 - NONRHEUMATIC MITRAL ( VALVE) INSUFFICIENCY SNOMED Code(s): 50526665 Plan: 1. Plan is for mitral valve repair versus replacement. Patient to have carotid artery stent tomorrow by that Dr. Gordon, will be on Plavix for 2 weeks, then full strength aspirin. Will plan for mitral valve surgery in the next few weeks. 2. Wean O2 as tolerated. Encourage incentive spirometry use. 3. Continue heparin drip, Cardizem drip, amiodarone drip, aspirin, beta skylar per cardiology management. 4. Bronchodilators per pulmonology. 5. Avoid nephrotoxic agents. 6. Increase activity, ambulate as tolerated. PT/OT following. 7. Patient has received dental clearance for valve surgery. 8. Will continue to follow while hospitalized. Will make a follow-up appointment for patient to see Dr. Huddleston in the office to plan for mitral valve surgery. Time with Patient: Greater than 30
[2017-09-20 08:00] LABS: Anisocytosis Slight; Basophils % (A) 0 %; Eosinophils # (A) 0.4 k/uL (0-0.7); Eosinophils % (A) 7 %; HCT 34.3 % (39.0-53.0); HGB 9.9 gm/dL (13.0-17.5); Hypochromasia Marked; Lymphocytes # (A) 1.3 k/uL (1.0-4.8); Lymphocytes % (A) 23 %; MCH 27.4 pg (25.0-35.0); MCHC 28.8 g/dL (31.0-37.0); MCV 95.3 fL (80.0-100.0); Mean Platelet Volume 10.2; Monocytes # (A) 0.3 k/uL (0-1.0); Monocytes % (A) 5 %; Neutrophils # (A) 3.6 k/uL (1.3-7.7); Neutrophils % (A) 63 %; Platelet Count 307 k/uL (150-450); RDW 16.3 % (11.5-15.5); WBC 5.7 k/uL (3.8-10.6)
[2017-09-20] MEDS: HYDROmorphone 2 MG TAB PO PRN (08:56)
--- NOTE | 2017-09-20 08:59 | P.PN ---
Subjective Progress Note Date: 09/20/17 This patient remains intubated and sedated. Patient is in atrial fibrillation now. Rate is controlled with combination of Cardizem and amiodarone. Patient was seen by Dr. Addison and felt that is a ganglion the left foot is stable and doesn't need any surgical intervention. I spoke with Dr. Godoy regarding evaluation of hi mitral regurgitation and is going to do CLARE tomorrow morning. He is going to keep him intubated until the CLARE is performed. If necessary we' ll get a consult from the cardiac surgeons. Meanwhile patient will stay on current medical therapy. Progress note for 09/16/2017: This patient still having a intermittent bouts of atrial fibrillation alternating with bradycardia and he converts into sinus rhythm. Patient is on amiodarone and also Cardizem drip and bolus of metoprolol. Pulmonary is trying to wean him off the respirator. Cardiac surgeons apparently cannot do the surgery for several days. His cardiac catheterization revealed evidence of significant mitral regurg with an ejection fraction of 50-55%. No significant obstructive coronary artery disease noted. Prognosis is guarded. Progress note for 09/17/2017: This patient was extubated yesterday. He is alert and oriented and doesn't appear to be in acute distress. He is in atrial fibrillation with moderately rapid ventricular response. Denies any chest pain. Examination the heart reveals irregular heart rhythm with murmur at the apex. Lungs show good air entry. Waiting to have mitral valve repair on Monday. Progress note for 09/18/2017: Patient remains extubated. Denies any chest pain or shortness of breath. A chest x-ray showed evidence of CHF. Diuretic dose is being increased. Patient is maintaining atrial flutter fib with a heart rate of 110. Lungs are clear. Heart is irregular. We'll continue current management. Mitral valve replacement planned for Monday Progress note for 09/19/2017: This patient remains stable since yesterday. Sitting up in the chair without any acute distress. Chest x-ray shows some improvement. Patient continues to be in atrial flutter fib with heart rates varying between 100 to 1:30. We will switch amiodarone to by mouth and probably swith Cardizem to by mouth tomorrow. He is also on IV heparin. Patient has apparently significant focal carotid disease. Patient is being seen by Dr. Walker for possible stent placement. We will continue current management. Progress note for 09/20/2017: This patient remains stable. Doesn't appear to be in acute distress. Patient is back on amiodarone drip because his heart rate is high. Yesterday. he also on IV metoprolol along with IV Cardizem. Patient is waiting to have carotid stent placement by Dr. Walker tomorrow. Denies any chest pain or shortness of breath. Remains in atrial fibrillation. Lungs show good air entry. Heart S1 and S2 heard. Regular heart sounds, systolic murmur at the apex. Patient will continue current medical therapy. Further recommendation as per Dr. Walker and also cardiac surgeon. Objective - Vital Signs Vital signs: Vital Signs Temp 99.6 F 09/20/17 04:00 Pulse 130 H 09/20/17 07:37 Resp 16 09/20/17 07:00 BP 94/69 09/20/17 07:00 Pulse Ox 93 L 09/20/17 07:00 Intake & Output 09/19/17 09/20/17 09/20/17 18:59 06:59 18:59 Intake Total 480 170 20 Output Total 1711 450 30 Balance -1231 -280 -10 Weight 77.6 kg Intake: IV 130 170 20 Sodium Chloride 0.9% 1, 130 170 20 000 ml @ 20 mls/hr IV . Q24H [facility] Rx#:[id number] Oral 350 Output: Urine 1710 450 30 Stool 1 Other: Voiding Method Indwelling Catheter Indwelling Catheter Indwelling Catheter ABP, PAP, CO, CI - Last Documented Arterial Blood Pressure 125/83 - Exam GENERAL EXAM: Patient is alert and oriented HEENT: Normocephalic. N CHEST: No chest wall deformity. LUNGS: Diminished breath sounds HEART: S1 and S2 normal. Systolic murmur heard at the apex ABDOMEN: No hepatosplenomegaly, normal bowel sounds, no guarding or rigidity. SKIN: No rashes CENTRAL NERVOUS SYSTEM: No focal deficits. EXTREMITIES: Dry gangrenous changes on the left foot - Labs CBC & Chem 7: 09/20/17 03:36 09/20/17 03:36 Labs: Abnormal Lab Results - Last 24 Hours (Table) 09/20/17 09/20/17 Range/Units 03:36 03:36 RBC 3.60 L (4.30-5.90) m/uL Hgb 9.9 L (13.0-17.5) gm/dL Hct 34.3 L (39.0-53.0) % MCHC 28.8 L (31.0-37.0) g/dL RDW 16.3 H (11.5-15.5) % Sodium 135 L (137-145) mmol/L Creatinine 1.40 H (0.66-1.25) mg/dL Glucose 111 H (74-99) mg/dL ALT 109 H (21-72) U/L Total Protein 6.0 L (6.3-8.2) g/dL Albumin 3.0 L (3.5-5.0) g/dL Microbiology - Last 24 Hours (Table) 09/15/17 12:22 Blood Culture - Preliminary Blood No Growth after 96 hours 09/19/17 06:00 Urine Culture - Preliminary Urine,Catheterized Assessment and Plan (1) CAD (coronary artery disease) Current Visit: Yes Status: Acute Code(s): I25.10 - ATHSCL HEART DISEASE OF [place] CORONARY ARTERY W/O ANG PCTRS SNOMED Code(s): 29532127 (2) Peripheral vascular disease Current Visit: Yes Status: Chronic Code(s): I73.9 - PERIPHERAL VASCULAR DISEASE, UNSPECIFIED SNOMED Code(s): 698351333 (3) New onset a-fib Current Visit: Yes Status: Acute Code(s): I48.91 - UNSPECIFIED ATRIAL FIBRILLATION SNOMED Code(s): 07442882 (4) Acute pulmonary edema Current Visit: Yes Status: Acute Code(s): J81.0 - ACUTE PULMONARY EDEMA SNOMED Code(s): 17026353 (5) Pneumonia Current Visit: Yes Status: Acute Code(s): J18.9 - PNEUMONIA, UNSPECIFIED ORGANISM SNOMED Code(s): 926886426 Plan: Patient is clinically stable. Continue current management. Carotid stent placement tomorrow.
[2017-09-20] MEDS: NICOTINE 21MG/24HR PATCH TRANSDERM SCH (09:23)
[2017-09-20] MEDS: SENNOSIDES 8.6 MG TAB PO SCH (09:25)
[2017-09-20] MEDS: FLUoxetine HCL 20 MG CAP PO SCH (09:25)
[2017-09-20] MEDS: MUPIROCIN 2% OINT 22 GM TUBE TOPICAL SCH ×2 (09:25→23:13)
[2017-09-20] MEDS: ASPIRIN 81 MG PO SCH (09:25)
[2017-09-20] MEDS: DILTIAZEM 125 MG in SODIUM CHLORIDE 0.9% 100 ML IV SCH ×2 (09:40→22:22)
--- NOTE | 2017-09-20 09:53 | P.PN ---
Subjective Progress Note Date: 09/20/17 Principal diagnosis: Severe mitral valve regurgitation, carotid stenosis This is a very pleasant 62-year-old gentleman who was found to have severe mitral valve stenosis. He had developed acute respiratory failure requiring intubation mechanical ventilatory support. He has been successfully extubated. He is seen again today in follow-up in the intensive care unit. He is awake and alert in no acute distress. The plan is for a right carotid stent tomorrow for greater than 70% stenosis. The patient will need to be on Plavix for 2 weeks and high-dose aspirin. The plan will be for possible mitral valve repair/ replacement following that time. In the interim he remains on a heparin drip for his atrial fibrillation. He remains on a Cardizem drip at 10 mg per hour. Amiodarone drip at 0.5 mg/m. Still having issues with tachycardia in regards to the atrial fibrillation. He is requiring 4 L nasal cannula to maintain O2 saturations in the 90s. Yesterday's chest x-ray revealed some persistent mild central vascular congestion with a new small right pleural effusion. There is cardiomegaly. Blood, sputum and urine cultures reveal no growth. No leukocytosis. Hemoglobin 9.9. Creatinine 1.40. He did have issues with diarrhea. C. difficile screen was negative. Objective - Vital Signs Vital signs: Vital Signs Temp 99.6 F 09/20/17 04:00 Pulse 130 H 09/20/17 07:37 Resp 16 09/20/17 07:00 BP 94/69 09/20/17 07:00 Pulse Ox 93 L 09/20/17 07:00 Intake & Output 09/19/17 09/20/17 09/20/17 18:59 06:59 18:59 Intake Total 480 170 360 Output Total 1711 450 115 Balance -1231 -280 245 Weight 77.6 kg 73.8 kg Intake: IV 130 170 60 Sodium Chloride 0.9% 1, 130 170 60 000 ml @ 20 mls/hr IV . Q24H [facility] Rx#:[id number] Oral 350 300 Output: Urine 1710 450 115 Stool 1 Other: Voiding Method Indwelling Catheter Indwelling Catheter Indwelling Catheter ABP, PAP, CO, CI - Last Documented Arterial Blood Pressure 125/83 - Exam GENERAL EXAM: Thin, alert, active, comfortable in no apparent distress. HEAD: Normocephalic. EYES: Normal reaction of pupils, equal size. NOSE: Clear with pink turbinates. THROAT: No erythema or exudates. NECK: No masses, no JVD. CHEST: No chest wall deformity. LUNGS: Equal air entry with faint crackles in the posterior bases more so on the right. CVS: S1 and S2 normal with an audible murmur, irregular rhythm. Tachycardic. ABDOMEN: No hepatosplenomegaly, normal bowel sounds, no guarding or rigidity. SPINE: No scoliosis or deformity SKIN: No rashes CENTRAL NERVOUS SYSTEM: No focal deficits, tone is normal in all 4 extremities. EXTREMITIES: There is no peripheral edema. No clubbing, no cyanosis. Peripheral pulses are intact. - Labs CBC & Chem 7: 09/20/17 03:36 09/20/17 03:36 Labs: Abnormal Lab Results - Last 24 Hours (Table) 09/20/17 09/20/17 Range/Units 03:36 03:36 RBC 3.60 L (4.30-5.90) m/uL Hgb 9.9 L (13.0-17.5) gm/dL Hct 34.3 L (39.0-53.0) % MCHC 28.8 L (31.0-37.0) g/dL RDW 16.3 H (11.5-15.5) % Sodium 135 L (137-145) mmol/L Creatinine 1.40 H (0.66-1.25) mg/dL Glucose 111 H (74-99) mg/dL ALT 109 H (21-72) U/L Total Protein 6.0 L (6.3-8.2) g/dL Albumin 3.0 L (3.5-5.0) g/dL Microbiology - Last 24 Hours (Table) 09/15/17 12:22 Blood Culture - Preliminary Blood No Growth after 96 hours 09/19/17 06:00 Urine Culture - Preliminary Urine,Catheterized Assessment and Plan Assessment: Impression: Acute hypoxemic respiratory failure secondary to sepsis/septic shock with a gangrenous toe and underlying cellulitis. Possible bilateral nosocomial pneumonia vs. acute lung injury Atrial fibrillation/RVR Congestive heart failure, secondary to severe mitral regurgitation and cardiomyopathy with an ejection fraction of 25% Intermittent sinus bradycardia History of CAD with previous stent placement History of COPD History of essential hypertension History of depression Peripheral vascular occlusive disease Hypothyroidism Hypertensive nephrosclerosis with chronic kidney disease, stage III Acute cellulitis and dry gangrene of the left big toe, status post debridement Bilateral carotid disease, worse on the right with a greater than 70% obstruction Plan: The patient was seen and evaluated by Dr. Jones. He is currently stable from the pulmonary and critical care standpoint. The plan is for carotid stent placement tomorrow by Dr. Gordon. The patient will need to be on Plavix for 2 weeks and high-dose aspirin. He will follow up with Dr. Huddleston regarding eventual mitral valve repair/replacement. We will continue with his current medications for now. Cardiology is on the case regarding rate control. Continue heparin drip for now. Continue IV Cardizem and amiodarone. We'll continue to follow and make further recommendations based on his clinical status. Critical care time 38 minutes. I, the cosigning physician, performed a history & physical examination of the patient. Lungs sounds have basilar crackles more so on the right. Maintaining good O2 saturations in the 90s on 4 L/m per nasal cannula. I discussed the assessment and plan of care with my nurse practitioner, Pari Burciaga. I attest to the above note as dictated by her.
[2017-09-20] MEDS ORDERED: POTASSIUM CHLORIDE ER 20 MEQ TAB.ER PO SCH (11:00)
[2017-09-20] MEDS: AMIODARONE 450 MG in DEXTROSE 5% IN WATER 250 ML IV SCH ×2 (11:17)
[2017-09-20] MEDS: SODIUM CHLORIDE 0.9% 1,000 ML IV SCH (11:44)
[2017-09-20] MEDS ORDERED: FUROSEMIDE 10 MG/ML 2 ML VIAL IV ONE (13:25)
--- NOTE | 2017-09-20 13:59 | PN ---
PROGRESS NOTE Patient is seen for followup for acute kidney injury. Has had a CTA and patient will be having carotid endarterectomy prior to mitral valve repair and this is scheduled for tomorrow. He is currently fairly stable from renal function standpoint. His serum creatinine staying at about 1.3 to 1.4 mg/dL. Patient is currently off of scheduled dose of Lasix. He did get 1 dose of yesterday of 40 mg. He is currently not on any IV fluids. He is sitting up, comfortable, he is not in any acute distress. PHYSICAL EXAMINATION: Blood pressure is 96/69, heart rate 127 TO 114 per minute. He is afebrile. Examination of the heart, S1, S2. Examination of the lungs, bilateral breath sounds are heard. Abdomen is soft, nontender. Examination of the lower extremities shows no evidence of edema. [employer] exam is grossly intact. LABS: Show sodium 135, potassium 3.8, serum creatinine 1.4, hemoglobin 9.9 g/dL. ASSESSMENT: 1. Acute kidney injury secondary to hypotension, hypoperfusion and hemodynamic instability with atrial fibrillation with RVR, currently improved. Renal function fairly stable. Patient did have the angiogram done on 09/18/2017. His serum creatinine is slightly higher today. Will continue to monitor for now. Patient received Lasix yesterday. I will give him another dose today as chest x-ray from yesterday still shows pulmonary vascular congestion. No other nephrotoxic agents on board. 2. Atrial fibrillation with RVR, maintained on Cardizem drip and amiodarone. 3. Status post ventilator-dependent respiratory failure. 4. Severe mitral regurgitation. 5. Carotid artery stenosis, scheduled for carotid endarterectomy tomorrow with Dr. Gordon. 6. Hypothyroidism. PLAN: Lasix 20 mg IV x1. Repeat labs in a.m. and check chest x-ray in a.m. MMODL / IJN: [id number] /
--- NOTE | 2017-09-20 17:52 | P.PN ---
Progress Note - Text Progress Note Date: 09/20/17 DATE OF SERVICE: 09/20/2017 PRESENTING COMPLAINT: Atrial fibrillation, mitral valve repair pending. HISTORY OF PRESENT ILLNESS: 62-year-old male who was admitted with an infected left toe from recent trauma. Failed outpatient treatment. When internal arrhythmia, then went into respiratory failure and was intubated. Was extubated and had to be reintubated. Remains on the ventilator FiO2 of 40 and a PEEP of 5. Currently in atrial fibrillation with rapid ventricular rate and pauses. Remains on amiodarone and Cardizem drip as well as IV heparin and propofol. Had a CLARE on 09/14/2017 and found to have severe mitral regurgitation. INTERVAL HISTORY: 09/20/2017: Patient lying in bed getting ready to get out of bed and sit in the chair. Appears comfortable. Alert and oriented able to answer all questions. Mild shortness of breath with exertion no chest pains. Remains in atrial fibrillation with rapid ventricular response amiodarone, Cardizem, and heparin continue. Patient is scheduled for bilateral carotid stents placement tomorrow with Dr. Walker. Tolerating his diet, eating about 50% of his meals. Up with assistance gait remains pretty weak. Last BM 09/19/2017. 09/19/2017: Sitting up in the chair visiting with a friend very comfortable wide awake able to answer all questions no shortness of breath or chest pains noted. Continues to be in atrial fibrillation rapid ventricular response amiodarone and Cardizem drip continue as well as heparin. Plans by cardiology to switch to oral Cardizem and amiodarone. Carotid ultrasound done yesterday found significant stenosis bilaterally. Cardiothoracic surgery team holding on mitral valve repair until significant stenosis bilaterally is taking care of. Tolerating his diet eating 75 to auto percent of his meals. Up with assistance, last BM . 09/18/2017: Patient lying in bed appears very comfortable wide awake able to answer all questions conversation is easy, overnight patient had be placed on the BiPAP for little bit. X-ray this morning shows worsening pulmonary edema. States his appetite is improving but continues to be difficult to eat. Eating between 20 and 50% of his meals. Continues on amiodarone and Cardizem drip as well as heparin. Tentative plan for mitral valve repair on Monday or of this week. 09/17/2017: Sitting up in a chair at the bedside, appears very comfortable wide awake alert able to answer questions conversation flows easily. States his appetite is pretty low, food doesn't taste very good to him. He ate about 20-30% of his breakfast. Remains in the ICU on amiodarone and Cardizem drip as well as heparin. Continues to have bursts of atrial fibrillation with RVR and alternating bradycardia when converting into sinus rhythm. 09/16/2017: Lying in bed awake intubated participating in a spontaneous breathing trial in an attempt for extubation. Weaning trial attempted yesterday without success. Surgical intervention planned for next week for the mitral valve. Remains in the ICU on propofol, amiodarone drip, Cardizem drip, metoprolol, and heparin drip. Patient does have bursts of atrial fibrillation and RVR as well as alternating with bradycardia with converting into sinus rhythm. Nutritional support in the form of enteral feedings, currently on bed rest due to intubation , last BM not documented in the patient chart 09/15/2017: Lying in bed awake intubated, status post catheterization in which his LAD has a stent that is patent, circumflex is free of significant stenosis of right coronary artery is dominant vessel and free of stenosis. Has 3+ mitral regurgitation, await input from cardiothoracic surgery regarding repair/replace mitral valve. Remains in the ICU on propofol, amiodarone drip, Cardizem drip, may extubate patient later today if there is no immediate surgical intervention for the mitral valve. REVIEW OF SYSTEMS: Done for constitutional cardiovascular GI pulmonary with relevant findings as above. CURRENT MEDICATIONS Acetaminophen, DuoNeb, amiodarone drip, aspirin, diltiazem drip, Prozac, heparin drip, insulin sliding scale, Synthroid, Lopressor, nicotine patch, Bactroban ointment, Protonix, Zosyn, senna, 0.9% sodium chloride at 20 mL an hour. PHYSICAL EXAM VITAL SIGNS: Temperature 98.8, pulse 139, respiratory rate 25, blood pressure 121/69, oxygen saturation 98% on 4 L nasal cannula GENERAL APPEARANCE: Lying in bed appears comfortable. HENT: Normocephalic, JVD not raised. Mass not palpable. Oral cavity poor dentition dry mucous membranes, external appearance of ears and nose normal, EYES:Pupils equal. Conjunctiva normal. RESPIRATORY: Respiratory effort normal. Lungs decreased bilaterally to auscultation. CARDIOVASCULAR: Irregular rhythm No edema. ABDOMEN: Soft. Liver and spleen not palpable. No tenderness. No mass palpable. GENITOURINARY: Beaulieu catheter in place with clear yellow urine. PSYCHIATRY: Alert and oriented x3. Mood and affect normal. EXTREMITIES: Infection of the left big toe INTEGUMENT: Right great toe dressing intact no drainage noted INVESTIGATIONS: LABS: Hemoglobin 9.9, sodium 135, BUN 16, creatinine 1.40, ALTs 109. Chest x-ray: Cardiomegaly with persistent mild central vascular congestion demonstrated with new small right pleural effusion now noted. Neck CTA: Severe stenosis origin of the right internal carotid artery stenosis is estimated at greater than 70%. Moderate to severe narrowing of the proximal internal left carotid artery approaching severe but between 50 and 69% narrowing. Cardiac catheterization: LAD stented with this patent stent, circumflex free of significant stenosis, right coronary artery is large dominant vessel free of stenosis. ASSESSMENT: -bilateral internal carotid stenosis greater than 90% on the right side approaching that on the left side. -Severe mitral regurgitation as per transesophageal echocardiogram, mitral valve on hold for now -Persistent atrial fibrillation, uncontrolled patient is on a heparin drip.Amiodarone and Cardizem continue -chronic obstructive pulmonary disease exacerbation in a current smoker. -Acute kidney injury secondary to acute tubular necrosis secondary to sepsis with some biochemical improvement. -Acute right great toe cellulitis and wound secondary to trauma with possible dry gangrene, expected to auto amputate, having failed outpatient treatment. -Acute hypoxic respiratory failure secondary to sepsis currently on nasal cannula. -Bilateral pneumonia, suspect gram-negative organism, possibly causing sepsis resolved -Acute pulmonary edema, from underlying severe mitral regurgitation.. -Acute metabolic acidosis, compensatory -Acute shock liver, biochemical improvement, from hypotension. -Chronic kidney disease stage III from nephrosclerosis with a baseline creatinine of 1.3. -Chronic nicotine dependence in a cigarette smoker. -Coronary artery disease, prior history of stent. -Hypothyroidism. -Essential hypertension, history. -Hyperlipidemia. -Peripheral artery disease. -Depression, anxiety, not otherwise specified. -Status post cardiac catheterization with patent stent to the LAD, circumflex free of significant stenosis right coronary artery is free of stenosis. PLAN: Patient remains on IV amiodarone and Cardizem, IV heparin. Mitral valve surgery to be done at a later date by cardiothoracic surgery.. Cardiology will continue with current medication management as well as stent placement in the carotids with Dr. Gordon tomorrow. Nothing by mouth after midnight. Dry gangrene of the left big toe and second toe will be managed by vascular surgery at a later date and time once patient's cardiac status is stabilized. Plan of care discussed at the bedside we will follow closely. BLURB WRITER statement: Patient was seen and examined by nurse practitioner Xiao Glass and all elements of the case discussed with attending Dr. Alston
--- NOTE | 2017-09-20 18:14 | PN ---
PROGRESS NOTE DATE OF SERVICE: 09/20/17 ATTENDING NOTE: The patient seen and examined by me. Discussed with the nurse practitioner, Ms. Glass. The patient remains in the ICU. Atrial fibrillation, somewhat uncontrolled. Drips include IV amiodarone, IV heparin. Patient is due for a carotid stent tomorrow by Dr. Gordon, sitting up, cheerful. PHYSICAL EXAMINATION: Heart is irregular. LUNGS: Decreased breath sounds. Psych AO x3. Family and friends at the bedside. INVESTIGATIONS: White count 5.9, hemoglobin 9.9, potassium 3.8, creatinine is 1.4. ASSESSMENT: 1. Bilateral carotid artery stenosis, right greater than left. Pending carotid artery stent by Dr. Gordon tomorrow. 2. Severe mitral regurgitation for outpatient surgery by Dr. Huddleston. 3. Persistent atrial fibrillation uncontrolled. The patient is currently on IV Cardizem, IV amiodarone, IV heparin. Follow. MMODL / IJN: [id number] /
--- NOTE | 2017-09-20 21:20 | PN ---
PROGRESS NOTE DATE OF SERVICE: 09/20/2017 REASON FOR FOLLOWUP: 1. Left foot first and second toe wound and cellulitis. 2. Patient who did have a fever. INTERVAL HISTORY: The patient is currently afebrile. The last fever was recorded last night at 100.1. Overall the patient is breathing comfortably. Denies having any chest pain or cough. No abdominal pain or any diarrhea. PHYSICAL EXAMINATION: Blood pressure is 114/72 with a pulse of 100, temperature of 98. He is 94% on room air. General description is a middle-aged male up in the chair in no distress. RESPIRATORY SYSTEM: Unlabored breathing. Decreased breath sounds in the bases. No wheeze. HEART: S1, S2. Regular rate and rhythm. ABDOMEN: Soft. No tenderness. Left foot is currently dressed. No obvious drainage on the dressing. LABS: Hemoglobin 9.9, white count 5.7, BUN of 16, creatinine 1.40. DIAGNOSTIC IMPRESSION AND PLAN: 1. Patient with left first and second toe wound with cellulitis, adequately treated. Currently off antibiotics. Recommend to keep the patient on the local wound care with Aquacel Silver dressing to be changed q.48 hours. 2. Patient did have a new fever. So far repeat culture has been negative, white count normal. Recommend watching the patient closely off antibiotic therapy at this point. Continue with supportive care. MMODL / IJN: [id number] /
[2017-09-20] MEDS: BISACODYL 10 MG SUPP RECTAL SCH (23:12)
[2017-09-20] MEDS: HEPARIN SOD,PORK IN 0.45% NACL 25,000 UNIT in 0.45% NACL 1 500ML.BAG IV SCH (23:17)
[2017-09-21] MEDS: METOPROLOL TARTRATE 5 MG/5 ML VIAL IVP SCH ×3 (00:45→17:16)
[2017-09-21 05:19] LABS: Anisocytosis Slight; Basophils % (A) 0 %; Eosinophils # (A) 0.4 k/uL (0-0.7); Eosinophils % (A) 5 %; HCT 31.3 % (39.0-53.0); HGB 9.5 gm/dL (13.0-17.5); Hypochromasia Moderate; Lymphocytes # (A) 1.5 k/uL (1.0-4.8); Lymphocytes % (A) 18 %; MCH 27.6 pg (25.0-35.0); MCHC 30.2 g/dL (31.0-37.0); MCV 91.3 fL (80.0-100.0); Monocytes # (A) 0.2 k/uL (0-1.0); Monocytes % (A) 3 %; Neutrophils # (A) 5.8 k/uL (1.3-7.7); Neutrophils % (A) 72 %; Platelet Count 294 k/uL (150-450); RBC 3.43 m/uL (4.30-5.90); RDW 16.3 % (11.5-15.5); WBC 8.1 k/uL (3.8-10.6)
[2017-09-21 05:35] LABS: ALT 97 U/L (21-72); AST 48 U/L (17-59); Albumin 2.9 g/dL (3.5-5.0); Alkaline Phosphatase 67 U/L (38-126); Anion Gap 11 mmol/L; Blood Urea Nitrogen 16 mg/dL (9-20); C Reactive Protein 30.2 mg/L (<10.0); Carbon Dioxide 20 mmol/L (22-30); Chloride 105 mmol/L (98-107); Glucose 97 mg/dL (74-99); Potassium 3.9 mmol/L (3.5-5.1); Sodium 136 mmol/L (137-145); Total Bilirubin 0.6 mg/dL (0.2-1.3)
[2017-09-21] MEDS: LEVOTHYROXINE 25 MCG TAB PO SCH (06:51)
[2017-09-21] MEDS: IPRATROPIUM-ALBUTEROL 3 ML NEB INHALATION SCH ×3 (07:17→20:44)
--- NOTE | 2017-09-21 07:53 | P.PN ---
Subjective Progress Note Date: 09/21/17 Principal diagnosis: Severe mitral valve regurgitation. Previous history of chronic persistent atrial fibrillation on Eliquis for anticoagulation, depression, peripheral artery disease, chronic nicotine dependence, chronic kidney disease stage III, hypertension, coronary artery disease with previous stent placement, GERD, and hypothyroidism. This 62-year-old gentleman presented to [facility] on 09/05/2017 with complaints of left foot pain and swelling, mainly to his left great toe after previous trauma. He was admitted for further treatment and evaluation. Subsequently he became unresponsive, bradycardic, and hypotensive. He was quickly intubated and taken to the intensive care unit for hemodynamic monitoring. He developed a lactic acidosis. In addition he developed atrial fibrillation. He was extubated, placed on BiPAP, and subsequently reintubated a few days later. A 2-D echocardiogram was completed which demonstrated normal left ventricular function with an ejection fraction between 55-60%, moderate aortic insufficiency, severe mitral regurgitation, mild tricuspid regurgitation. He then had a bedside transesophageal echocardiogram which demonstrated severe mitral valve regurgitation with a flail anterior leaflet, mild aortic insufficiency and severely impaired left ventricular function with an ejection fraction of 30-35%. Left heart catheterization was performed yesterday with no significant coronary stenosis. Cardiothoracic surgery was consulted for surgical repair of the patient's mitral valve. Status post cardiac catheterization on 09/25/2017 demonstrating a patent LAD stent and no significant coronary stenosis. Status post neck CTA demonstrating severe right internal carotid artery estimated at greater than 70%, moderate to severe narrowing of the proximal left internal carotid artery between 50-69%. Patient's currently sitting up in bed in no acute distress. Denies any pain or shortness of breath. Anticipates carotid stent being placed today. Hopeful to go home soon. Objective - Vital Signs Vital signs: Vital Signs Temp 98.9 F 09/21/17 05:00 Pulse 100 09/21/17 07:27 Resp 20 09/21/17 07:00 BP 105/63 09/21/17 07:00 Pulse Ox 99 09/21/17 07:00 Intake & Output 09/20/17 09/21/17 09/21/17 18:59 06:59 18:59 Intake Total 771.852 605 Output Total 1190 1091 Balance -418.148 -486 Weight 73.8 kg 76.2 kg Intake: IV 240 240 Sodium Chloride 0.9% 1, 240 240 000 ml @ 20 mls/hr IV . Q24H AJ Rx#:[id number] Intake, IV Titration 231.852 125 Amount Amiodarone 450 mg In 231.852 Dextrose 5% in Water 250 ml @ 0.5 MG/MIN 16.66 mls /hr IV .Q15H1M AJ Rx#: [id number] Diltiazem 125 mg In 125 Sodium Chloride 0.9% 100 ml @ 5 MG/HR 5 mls/hr IV .Q24H AJ Rx#:[id number] Oral 300 240 Output: Urine 1190 1090 Stool 1 Other: Voiding Method Indwelling Catheter Indwelling Catheter ABP, PAP, CO, CI - Last Documented Arterial Blood Pressure 125/83 - Constitutional General appearance: Present: cooperative, no acute distress - Respiratory Details: Lungs sounds diminished bilaterally. Respirations even, nonlabored. Currently on room air with oxygen saturation 97%. Able to achieve 2000 mL on his incentive spirometry. - Cardiovascular Details: S1, S2 present. Irregular, tachycardia rate and rhythm, uncontrolled A. fib on telemetry. Palpable peripheral pulses bilaterally although faint on the left lower extremity. No edema present. No calf pain or tenderness noted. - Gastrointestinal Gastrointestinal Comment(s): Abdomen soft, nontender, nondistended. Active bowel sounds 4 quadrants. Tolerating diet - Genitourinary Genitourinary Comment(s): Beaulieu present draining clear, yellow urine. Output 75-100 mL/h overnight. - Integumentary Integumentary Comment(s): Skin is warm and dry. Left big toe with dry gangrene, currently covered with dry intact dressing. - Neurologic Neurologic: Present: CNII-XII intact - Musculoskeletal Musculoskeletal: Present: strength equal bilaterally - Psychiatric Psychiatric: Present: A&O x's 3, appropriate affect, intact judgment & insight - Allied health notes Allied health notes reviewed: nursing - Labs CBC & Chem 7: 09/21/17 04:56 09/21/17 04:56 Labs: Abnormal Lab Results - Last 24 Hours (Table) 09/20/17 09/20/17 09/21/17 Range/Units 03:36 09:26 04:56 RBC 3.60 L (4.30-5.90) m/uL Hgb 9.9 L (13.0-17.5) gm/dL Hct 34.3 L (39.0-53.0) % MCHC 28.8 L (31.0-37.0) g/dL RDW 16.3 H (11.5-15.5) % APTT 60.9 H (22.0-30.0) sec Sodium 136 L (137-145) mmol/L Carbon Dioxide 20 L (22-30) mmol/L Creatinine 1.30 H (0.66-1.25) mg/dL ALT 97 H (21-72) U/L C-Reactive Protein 30.2 H (<10.0) mg/L Total Protein 6.0 L (6.3-8.2) g/dL Albumin 2.9 L (3.5-5.0) g/dL 09/21/17 09/21/17 Range/Units 04:56 05:05 RBC 3.43 L (4.30-5.90) m/uL Hgb 9.5 L (13.0-17.5) gm/dL Hct 31.3 L (39.0-53.0) % MCHC 30.2 L (31.0-37.0) g/dL RDW 16.3 H (11.5-15.5) % APTT 49.4 H (22.0-30.0) sec Sodium (137-145) mmol/L Carbon Dioxide (22-30) mmol/L Creatinine (0.66-1.25) mg/dL ALT (21-72) U/L C-Reactive Protein (<10.0) mg/L Total Protein (6.3-8.2) g/dL Albumin (3.5-5.0) g/dL Microbiology - Last 24 Hours (Table) 09/15/17 12:22 Blood Culture - Preliminary Blood No Growth after 120 hours 09/19/17 06:00 Urine Culture - Final Urine,Catheterized Assessment and Plan (1) Acute and chronic respiratory failure with hypoxia Current Visit: Yes Status: Acute Code(s): J96.21 - ACUTE AND CHRONIC RESPIRATORY FAILURE WITH HYPOXIA SNOMED Code(s): 13205468 (2) COPD (chronic obstructive pulmonary disease) Current Visit: Yes Status: Chronic Code(s): J44.9 - CHRONIC OBSTRUCTIVE PULMONARY DISEASE, UNSPECIFIED SNOMED Code(s): 90299214 (3) Chronic kidney disease, stage III (moderate) Current Visit: Yes Status: Chronic Code(s): N18.3 - CHRONIC KIDNEY DISEASE, STAGE 3 (MODERATE) SNOMED Code(s): 656080453 (4) Gangrenous toe Current Visit: Yes Status: Chronic Code(s): I96 - GANGRENE, NOT ELSEWHERE CLASSIFIED SNOMED Code(s): 524315240 (5) History of bradycardia Current Visit: No Status: Resolved Code(s): Z86.79 - PERSONAL HISTORY OF OTHER DISEASES OF THE CIRCULATORY SYSTEM SNOMED Code(s): 702688287193877 (6) History of coronary artery disease Current Visit: No Status: Resolved Code(s): Z86.79 - PERSONAL HISTORY OF OTHER DISEASES OF THE CIRCULATORY SYSTEM SNOMED Code(s): 381730338 (7) History of depression Current Visit: Yes Status: Chronic Code(s): Z86.59 - PERSONAL HISTORY OF OTHER MENTAL AND BEHAVIORAL DISORDERS SNOMED Code(s): 766096133 (8) Hypertension Current Visit: Yes Status: Chronic Code(s): I10 - ESSENTIAL (PRIMARY) HYPERTENSION SNOMED Code(s): 78304252 (9) Hypothyroidism Current Visit: Yes Status: Chronic Code(s): E03.9 - HYPOTHYROIDISM, UNSPECIFIED SNOMED Code(s): 79623260 (10) Peripheral vascular disease Current Visit: Yes Status: Chronic Code(s): I73.9 - PERIPHERAL VASCULAR DISEASE, UNSPECIFIED SNOMED Code(s): 882947979 (11) New onset a-fib Current Visit: Yes Status: Acute Code(s): I48.91 - UNSPECIFIED ATRIAL FIBRILLATION SNOMED Code(s): 39089704 (12) Carotid artery stenosis Current Visit: Yes Status: Chronic Code(s): I65.29 - OCCLUSION AND STENOSIS OF UNSPECIFIED CAROTID ARTERY SNOMED Code(s): 68706351 (13) Mitral valve regurgitation Current Visit: Yes Status: Chronic Code(s): I34.0 - NONRHEUMATIC MITRAL ( VALVE) INSUFFICIENCY SNOMED Code(s): 45279118 Plan: 1. Plan is for mitral valve repair versus replacement. Patient to have carotid artery stent today by Dr. Gordon, will be on Plavix for 2 weeks, then full strength aspirin. Will plan for mitral valve surgery in the next few weeks. 2. Encourage incentive spirometry use. Encourage smoking cessation. 3. Continue heparin drip, Cardizem drip, amiodarone drip, aspirin, beta skylar per cardiology management. 4. Bronchodilators per pulmonology. 5. Avoid nephrotoxic agents. 6. Increase activity, ambulate as tolerated. PT/OT following. 7. Patient has received dental clearance for valve surgery. 8. Will continue to follow while hospitalized. Will make a follow-up appointment for patient to see Dr. Huddleston in the office to plan for mitral valve surgery. Time with Patient: Greater than 30
[2017-09-21] MEDS: SENNOSIDES 8.6 MG TAB PO SCH (07:54)
[2017-09-21] MEDS: AMIODARONE 450 MG in DEXTROSE 5% IN WATER 250 ML IV SCH ×4 (07:54→18:31)
[2017-09-21] MEDS: ASPIRIN 81 MG PO SCH (07:55)
[2017-09-21] MEDS: PANTOPRAZOLE 40 MG TABLET PO SCH (07:55)
[2017-09-21] MEDS: FLUoxetine HCL 20 MG CAP PO SCH (07:56)
[2017-09-21] MEDS: MUPIROCIN 2% OINT 22 GM TUBE TOPICAL SCH ×2 (07:56→22:58)
[2017-09-21] MEDS: NICOTINE 21MG/24HR PATCH TRANSDERM SCH (07:56)
[2017-09-21] MEDS: HYDROmorphone 2 MG TAB PO PRN ×2 (07:57→17:16)
[2017-09-21] MEDS ORDERED: LIDOCAINE 2% INJ 20 MG/ML SQ ONE (10:00)
--- NOTE | 2017-09-21 10:39 | P.PN ---
Subjective Progress Note Date: 09/21/17 Principal diagnosis: Severe mitral valve regurgitation This is a very pleasant 62-year-old gentleman who was found to have severe mitral valve stenosis. He had developed acute respiratory failure requiring intubation mechanical ventilatory support. He has been successfully extubated. He is seen again today in follow-up in the intensive care unit. He is awake and alert in no acute distress. The plan is for a right carotid stent tomorrow for greater than 70% stenosis. The patient will need to be on Plavix for 2 weeks and high-dose aspirin. The plan will be for possible mitral valve repair/ replacement following that time. In the interim he remains on a heparin drip for his atrial fibrillation. He remains on a Cardizem drip at 10 mg per hour. Amiodarone drip at 0.5 mg/m. Still having issues with tachycardia in regards to the atrial fibrillation. He is requiring 4 L nasal cannula to maintain O2 saturations in the 90s. Yesterday's chest x-ray revealed some persistent mild central vascular congestion with a new small right pleural effusion. There is cardiomegaly. Blood, sputum and urine cultures reveal no growth. No leukocytosis. Hemoglobin 9.9. Creatinine 1.40. He did have issues with diarrhea. C. difficile screen was negative. Patient was reevaluated today on 09/21/2017, patient is comfortable, in no distress, no shortness of breath no cough no wheezing, patient is scheduled to have carotid artery stenting today. This will be done by Dr. Walker. Continues to have intermittent episodes of tachyarrhythmias with intermittent episodes of sinus bradycardia and atrial fibrillation. Blood pressure is also fluctuating up and down intermittently. No chest x-ray was done today, all his labs were reviewed, creatinine is 1.30 today. Otherwise the labs are unremarkable. Objective - Vital Signs Vital signs: Vital Signs Temp 98.4 F 09/21/17 08:00 Pulse 79 09/21/17 09:00 Resp 18 09/21/17 09:00 BP 107/73 09/21/17 09:00 Pulse Ox 99 09/21/17 09:00 Intake & Output 09/20/17 09/21/17 09/21/17 18:59 06:59 18:59 Intake Total 771.852 606.093 40 Output Total 1190 1091 130 Balance -418.148 -484.907 -90 Weight 73.8 kg 76.2 kg Intake: IV 240 240 40 Sodium Chloride 0.9% 1, 240 240 40 000 ml @ 20 mls/hr IV . Q24H AJ Rx#:[id number] Intake, IV Titration 231.852 126.093 Amount Amiodarone 450 mg In 231.852 Dextrose 5% in Water 250 ml @ 0.5 MG/MIN 16.66 mls /hr IV .Q15H1M AJ Rx#: [id number] Diltiazem 125 mg In 125 Sodium Chloride 0.9% 100 ml @ 5 MG/HR 5 mls/hr IV .Q24H AJ Rx#:[id number] Heparin Sod,Pork in 0.45% 1.093 NaCl 25,000 unit In 0.45 % NaCl 1 500ml.bag @ 12 UNITS/KG/HR 18.74 mls/hr IV .Q24H AJ Rx#: [id number] Oral 300 240 Output: Urine 1190 1090 130 Stool 1 Other: Voiding Method Indwelling Catheter Indwelling Catheter Indwelling Catheter # Bowel Movements 0 ABP, PAP, CO, CI - Last Documented Arterial Blood Pressure 125/83 - Exam GENERAL EXAM: Thin, alert, active, comfortable in no apparent distress. HEAD: Normocephalic. EYES: Normal reaction of pupils, equal size. NOSE: Clear with pink turbinates. THROAT: No erythema or exudates. NECK: No masses, no JVD. CHEST: No chest wall deformity. LUNGS: Equal air entry with faint crackles in the posterior bases more so on the right. CVS: S1 and S2 normal, 2/6 systolic murmur throughout the precordium., irregular rhythm. Tachycardic. ABDOMEN: No hepatosplenomegaly, normal bowel sounds, no guarding or rigidity. SPINE: No scoliosis or deformity SKIN: No rashes CENTRAL NERVOUS SYSTEM: No focal deficits, tone is normal in all 4 extremities. EXTREMITIES: There is no peripheral edema. No clubbing, no cyanosis. Peripheral pulses are intact. - Labs CBC & Chem 7: 09/21/17 04:56 09/21/17 04:56 Labs: Abnormal Lab Results - Last 24 Hours (Table) 09/21/17 09/21/17 09/21/17 Range/Units 04:56 04:56 05:05 RBC 3.43 L (4.30-5.90) m/uL Hgb 9.5 L (13.0-17.5) gm/dL Hct 31.3 L (39.0-53.0) % MCHC 30.2 L (31.0-37.0) g/dL RDW 16.3 H (11.5-15.5) % APTT 49.4 H (22.0-30.0) sec Sodium 136 L (137-145) mmol/L Carbon Dioxide 20 L (22-30) mmol/L Creatinine 1.30 H (0.66-1.25) mg/dL ALT 97 H (21-72) U/L C-Reactive Protein 30.2 H (<10.0) mg/L Total Protein 6.0 L (6.3-8.2) g/dL Albumin 2.9 L (3.5-5.0) g/dL Microbiology - Last 24 Hours (Table) 09/15/17 12:22 Blood Culture - Preliminary Blood No Growth after 120 hours 09/19/17 06:00 Urine Culture - Final Urine,Catheterized Assessment and Plan Assessment: Acute hypoxemic respiratory failure secondary to sepsis/septic shock with a gangrenous toe and underlying cellulitis. It is also secondary to intermittent episodes of pulmonary edema secondary to severe mitral valve regurgitation. Resolved. Possible bilateral nosocomial pneumonia vs. acute lung injury Atrial fibrillation/RVR Recurrent systolic Congestive heart failure, secondary to severe mitral regurgitation and cardiomyopathy with an ejection fraction of 25% Intermittent sinus bradycardia History of CAD with previous stent placement History of COPD History of essential hypertension History of depression Peripheral vascular occlusive disease Hypothyroidism Hypertensive nephrosclerosis with chronic kidney disease, stage III Acute cellulitis and dry gangrene of the left big toe, status post debridement Bilateral carotid disease, worse on the right with a greater than 70% obstruction Recommendation: Continue present supportive care measures, patient is undergoing stenting of the right carotid artery today, and he will eventually require mitral valve replacement or repair. I had a long discussion with his cousin today, and I believe the patient cannot manage on his own at home, may have to consider social science instructor evaluation for possibly sending the patient to a rehab facility prior to valve surgery which is supposedly going to be scheduled in the next 2-3 weeks. Patient will remain in the ICU post carotid artery stenting, and we'll start discussing with social science instructor discharge planning sometime in the next couple days. Time with Patient: Less than 30
[2017-09-21] MEDS ORDERED: SODIUM CHLORIDE 0.9% 1,000 ML IV SCH (10:45)
[2017-09-21] MEDS ORDERED: IOHEXOL 350 MG/ML 125ML BOTTLE INJ ONE (10:46)
--- NOTE | 2017-09-21 12:09 | LTR ---
September 21, 2017 Re: Reddy Maradiaga Dear Mini: Mr. Reddy Maraidaga underwent an aortic arch and bilateral carotid angiogram and that revealed intermediate to severe disease involving the right internal carotid artery not exceeding 80%. In view of that, maximized medical treatment is recommended at this point. Thank you for allowing me to participate in his care. Sincerely, MD SOLO Nicole / MYRA: [id number] /
--- NOTE | 2017-09-21 12:24 | AN ---
ANGIOGRAPHY REPORT DATE OF SERVICE: 09/21/2017. PERFORMING PHYSICIAN: Jesús Gordon MD, bending machine set up operator. PROCEDURE PERFORMED: 1. Aortic arch angiogram. 2. Selective bilateral internal carotid artery angiogram. INDICATIONS: This is a pleasant 62-year-old gentleman who sees Dr. Godoy in the office on a regular basis, who presented to the hospital with heart failure and was found to have severe MR. He was seen and evaluated by a surgeon, who recommended obtaining a carotid duplex study before the surgery. The carotid duplex study revealed severe right internal carotid artery disease. Subsequently he underwent a CTA which showed severe disease about 70% involving the right internal carotid artery and intermediate to severe disease on the left side. He was brought today to undergo right carotid stenting. APPROACH: Right common femoral artery. COMPLICATIONS: None. LEVEL OF SEDATION: No sedation was performed during the procedure. PROCEDURE DESCRIPTION: After obtaining informed consent, the patient was brought to the cardiac laborer pole crew. The right common femoral artery was cannulated using micropuncture technique, the micropuncture wire passed easily, then I did exchange my micropuncture sheath into 90 cm 6-[place] Shuttle sheath. The tip of the shuttle sheath was advanced to the descending aorta. Subsequently I did an aortic arch angiogram using 6-[place] pigtail catheter. After that, I did selective bilateral internal carotid artery angiogram using ORLY 2 catheters. The procedure was completed without any complication. SELECTIVE PERIPHERAL ANGIOGRAM: 1. The aortic arch is a type 1 arch and seems to be angiographically normal. 2. The right common carotid appeared to be angiographically normal. The right external carotid artery seems to be angiographically normal and patent. The ostial of the right internal carotid artery appeared to have a calcified ulcerated plaque, angiographically seems to be in the range of 70% only. 3. The left common carotid artery appeared to be angiographically normal. The left internal carotid artery appeared to have eccentric plaque in the range of 50% only. The left external carotid artery appeared to be angiographically normal. CONCLUSION: 1. Type 1 aortic arch. The aortic arch seems to be angiographically normal without any evidence of aneurysmal dilatation or dissection. 2. Intermediate to severe disease involving the right internal carotid artery, seems to be in the range of 70% only. 3. Intermediate disease involving the left internal carotid artery, appeared to be in the range of 50% to 60% only. POSTPROCEDURE MANAGEMENT: In view of the asymptomatic state of the patient and the disease not exceeding more than 80%, I recommended continued medical treatment and no need for any carotid revascularization at this point. MMLUIS CARLOS / ABRAHAMN: [id number] /
[2017-09-21] MEDS: SODIUM CHLORIDE 0.9% 1,000 ML IV SCH (14:39)
--- NOTE | 2017-09-21 18:00 | PN ---
PROGRESS NOTE DATE OF SERVICE: September 21, 2017. ATTENDING NOTE: The patient seen and examined by me. I discussed with nurse practitioner, Ms. Glass. The patient is in the ICU, remains in atrial fibrillation, on IV amiodarone and IV heparin drip. The patient did have a heart study done by Dr. Gordon, found to have around 70% on the right side, 50 to 60% on the left side. Hence, no further intervention was done. PHYSICAL EXAMINATION: On exam patient is sitting up, comfortable, smiling. HEART: Sounds irregular. LUNGS: Decreased breath sounds. LABORATORY DATA: Hemoglobin 9.5, potassium 3.9, creatinine 1.3. ASSESSMENT: 1. Carotid stenosis around 70% on the right side and 50 to 60% on the left side, not for any further intervention. 2. Severe mitral regurgitation, nonrheumatic. 3. Persistent atrial fibrillation uncontrolled. PLAN: Patient remains on IV heparin, Cardizem, amiodarone. I spoke to Dr. Billy and Kelsey. Dr. Huddleston will speak to field artillery radar operator and determine further course of action in terms of intervention of the mitral valve. MMODL / IJN: [id number] /
--- NOTE | 2017-09-21 18:49 | P.PN ---
Progress Note - Text Progress Note Date: 09/21/17 DATE OF SERVICE: 09/21/2017 PRESENTING COMPLAINT: Atrial fibrillation, mitral valve repair pending. HISTORY OF PRESENT ILLNESS: 62-year-old male who was admitted with an infected left toe from recent trauma. Failed outpatient treatment. When internal arrhythmia, then went into respiratory failure and was intubated. Was extubated and had to be reintubated. Remains on the ventilator FiO2 of 40 and a PEEP of 5. Currently in atrial fibrillation with rapid ventricular rate and pauses. Remains on amiodarone and Cardizem drip as well as IV heparin and propofol. Had a CLARE on 09/14/2017 and found to have severe mitral regurgitation. INTERVAL HISTORY: 09/21/2017: Patient lying in bed just returned from the bundle tier and labeler where he was to have carotid stent placement. Upon evaluation of the head screen worker, patient did not have enough stenosis requiring any type of stent no stents were placed. Patient returned to the ICU for recovery. Lying flat, right groin clean dry and intact no bleeding or hematoma noted. Remains in atrial fibrillation rate better controlled but does pop up to the 120s to 130s periodically. Continues on amiodarone Cardizem and heparin drips. Diet to be advanced, allowed to get up in about 6 hours as they used to groin approach. Last BM 09/19/2017. 09/20/2017: Patient lying in bed getting ready to get out of bed and sit in the chair. Appears comfortable. Alert and oriented able to answer all questions. Mild shortness of breath with exertion no chest pains. Remains in atrial fibrillation with rapid ventricular response amiodarone, Cardizem, and heparin continue. Patient is scheduled for bilateral carotid stents placement tomorrow with Dr. Walker. Tolerating his diet, eating about 50% of his meals. Up with assistance gait remains pretty weak. Last BM 09/19/2017. 09/19/2017: Sitting up in the chair visiting with a friend very comfortable wide awake able to answer all questions no shortness of breath or chest pains noted. Continues to be in atrial fibrillation rapid ventricular response amiodarone and Cardizem drip continue as well as heparin. Plans by cardiology to switch to oral Cardizem and amiodarone. Carotid ultrasound done yesterday found significant stenosis bilaterally. Cardiothoracic surgery team holding on mitral valve repair until significant stenosis bilaterally is taking care of. Tolerating his diet eating 75 to auto percent of his meals. Up with assistance, last BM . 09/18/2017: Patient lying in bed appears very comfortable wide awake able to answer all questions conversation is easy, overnight patient had be placed on the BiPAP for little bit. X-ray this morning shows worsening pulmonary edema. States his appetite is improving but continues to be difficult to eat. Eating between 20 and 50% of his meals. Continues on amiodarone and Cardizem drip as well as heparin. Tentative plan for mitral valve repair on Monday or of this week. 09/17/2017: Sitting up in a chair at the bedside, appears very comfortable wide awake alert able to answer questions conversation flows easily. States his appetite is pretty low, food doesn't taste very good to him. He ate about 20-30% of his breakfast. Remains in the ICU on amiodarone and Cardizem drip as well as heparin. Continues to have bursts of atrial fibrillation with RVR and alternating bradycardia when converting into sinus rhythm. 09/16/2017: Lying in bed awake intubated participating in a spontaneous breathing trial in an attempt for extubation. Weaning trial attempted yesterday without success. Surgical intervention planned for next week for the mitral valve. Remains in the ICU on propofol, amiodarone drip, Cardizem drip, metoprolol, and heparin drip. Patient does have bursts of atrial fibrillation and RVR as well as alternating with bradycardia with converting into sinus rhythm. Nutritional support in the form of enteral feedings, currently on bed rest due to intubation , last BM not documented in the patient chart 09/15/2017: Lying in bed awake intubated, status post catheterization in which his LAD has a stent that is patent, circumflex is free of significant stenosis of right coronary artery is dominant vessel and free of stenosis. Has 3+ mitral regurgitation, await input from cardiothoracic surgery regarding repair/replace mitral valve. Remains in the ICU on propofol, amiodarone drip, Cardizem drip, may extubate patient later today if there is no immediate surgical intervention for the mitral valve. REVIEW OF SYSTEMS: Done for constitutional cardiovascular GI pulmonary with relevant findings as above. CURRENT MEDICATIONS Acetaminophen, DuoNeb, amiodarone drip, aspirin, diltiazem drip, Prozac, heparin drip, insulin sliding scale, Synthroid, Lopressor, nicotine patch, Bactroban ointment, Protonix, Zosyn, senna, 0.9% sodium chloride at 20 mL an hour. PHYSICAL EXAM VITAL SIGNS: GENERAL APPEARANCE: Lying in bed appears comfortable. HENT: Normocephalic, JVD not raised. Mass not palpable. Oral cavity poor dentition dry mucous membranes, external appearance of ears and nose normal, EYES:Pupils equal. Conjunctiva normal. RESPIRATORY: Respiratory effort normal. Lungs decreased bilaterally to auscultation. CARDIOVASCULAR: Irregular rhythm No edema. ABDOMEN: Soft. Liver and spleen not palpable. No tenderness. No mass palpable. GENITOURINARY: Beaulieu catheter in place with clear yellow urine. PSYCHIATRY: Alert and oriented x3. Mood and affect normal. EXTREMITIES: Infection of the left big toe INTEGUMENT: Right great toe dressing intact no drainage noted INVESTIGATIONS: LABS: Hemoglobin 9.9, sodium 135, BUN 16, creatinine 1.40, ALTs 109. Chest x-ray: Cardiomegaly with persistent mild central vascular congestion demonstrated with new small right pleural effusion now noted. Neck CTA: Severe stenosis origin of the right internal carotid artery stenosis is estimated at greater than 70%. Moderate to severe narrowing of the proximal internal left carotid artery approaching severe but between 50 and 69% narrowing. Cardiac catheterization: LAD stented with this patent stent, circumflex free of significant stenosis, right coronary artery is large dominant vessel free of stenosis. ASSESSMENT: -bilateral internal carotid stenosis greater than 70 % on the right side 50-60% on the left side, not for any further intervention. -Severe mitral regurgitation nonrheumatic as per transesophageal echocardiogram , mitral valve on hold for now -Persistent atrial fibrillation, uncontrolled patient is on a heparin drip.Amiodarone and Cardizem -chronic obstructive pulmonary disease exacerbation in a current smoker. -Acute kidney injury secondary to acute tubular necrosis secondary to sepsis with some biochemical improvement. -Acute right great toe cellulitis and wound secondary to trauma with possible dry gangrene, expected to auto amputate, having failed outpatient treatment. -Acute hypoxic respiratory failure secondary to sepsis currently on nasal cannula. -Bilateral pneumonia, suspect gram-negative organism, possibly causing sepsis resolved -Acute pulmonary edema, from underlying severe mitral regurgitation.. -Acute metabolic acidosis, compensatory -Acute shock liver, biochemical improvement, from hypotension. -Chronic kidney disease stage III from nephrosclerosis with a baseline creatinine of 1.3. -Chronic nicotine dependence in a cigarette smoker. -Coronary artery disease, prior history of stent. -Hypothyroidism. -Essential hypertension, history. -Hyperlipidemia. -Peripheral artery disease. -Depression, anxiety, not otherwise specified. -Status post cardiac catheterization with patent stent to the LAD, circumflex free of significant stenosis right coronary artery is free of stenosis. PLAN: Patient remains on IV amiodarone and Cardizem, IV heparin. Mitral valve surgery to be done at a later date to be determined by cardiothoracic surgery and cardiology may be sooner than later based on no intervention required for carotids. Cardiology will continue with current medication management. Dry gangrene of the left big toe and second toe will be managed by vascular surgery at a later date and time once patient's cardiac status is stabilized. Plan of care discussed at the bedside we will follow closely. IT SUPPORT MANAGER statement: Patient was seen and examined by nurse practitioner Xiao Glass and all elements of the case discussed with attending Dr. Alston
[2017-09-21] MEDS ORDERED: ATROPINE SULFATE 0.1 MG/ML 10ML SYRINGE ONE (19:00)
[2017-09-21] MEDS ORDERED: SODIUM CHLORIDE 0.9% 1,000 ML BAG ONE (19:00)
[2017-09-21] MEDS ORDERED: EPINEPHrine 10 ML SYRINGE (0.1 MG/ML) ONE (19:00)
[2017-09-21 19:27] LABS: Glucose,Whole Blood 104 mg/dL (75-99)
--- NOTE | 2017-09-21 19:39 | XR ---
EXAMINATION TYPE: XR chest 1V portable DATE OF EXAM: 09/21/2017 COMPARISON: 09/19/2017 HISTORY: Check line placement TECHNIQUE: Single frontal view of the chest is obtained. FINDINGS: Endotracheal tube appears in good position. Nasogastric tube is in good position. There is moderately severe pulmonary edema. There are chest leads. There is no definite pleural effusion. IMPRESSION: There is severe pulmonary edema that is worse than last exam. Endotracheal tube and naso gastric tube appear in good position.
[2017-09-21 20:06] LABS: Albumin 3.2 g/dL (3.5-5.0); Calcium 8.6 mg/dL (8.4-10.2); Potassium 4.6 mmol/L (3.5-5.1); Total Bilirubin 0.5 mg/dL (0.2-1.3); Total Protein 6.7 g/dL (6.3-8.2)
[2017-09-21] MEDS: BISACODYL 10 MG SUPP RECTAL SCH (20:17)
[2017-09-21 20:38] LABS: ABG Base Excess -8.9 mmol/L; ABG HCO3 17 mmol/L (21-25); ABG PCO2 32 mmHg (35-45); ABG PH 7.34 (7.35-7.45); ABG PO2 48 mmHg (83-108); ABG TCO2 18 mmol/L (19-24)
[2017-09-21] MEDS ORDERED: FUROSEMIDE 10 MG/ML 10 ML VIAL IV STA (20:49)
[2017-09-21] MEDS ORDERED: FUROSEMIDE 10 MG/ML 4 ML VIAL ONE (20:52)
[2017-09-21] MEDS: CHLORHEXIDINE GLUCONATE 15 ML CUP MUCOUS MEM SCH (21:20)
[2017-09-21] MEDS: PROPOFOL 1,000 MG in EMPTY BAG 1 BAG IV SCH (21:27)
--- NOTE | 2017-09-21 21:36 | PN ---
PROGRESS NOTE DATE OF SERVICE: 09/21/2017. REASONS FOR FOLLOW UP: 1. Left 1st and 2nd toe wound and cellulitis. 2. New fever. INTERVAL HISTORY: The patient is afebrile, has been breathing comfortably. Denies significant chest pain or cough. No abdominal pain or any diarrhea. No pain in left foot area. EXAMINATION: His blood pressure is 131/80 with a pulse of 122, temperature of 98.6. He is 94% on room air. General description is a middle-aged male up in the bed in no distress. RESPIRATORY SYSTEM: Unlabored breathing. Clear to auscultation anteriorly. HEART: S1, S2. Regular rate and rhythm. ABDOMEN: Soft. Left foot is currently dressed up. No obvious drainage on the dressing. LABS: Hemoglobin 9.5, white count 8.1. Blood culture repeat has been negative. Urine is negative. DIAGNOSTIC IMPRESSION AND PLAN: 1. Patient left 1st and 2nd toe wound and cellulitis that has been adequately treated with local wound care to be treated with Aquacel silver dressing which will be changed every 48 hours. 2. Patient did have a new fever on the for which the patient did have blood and urine cultures done that were negative. Chest x-ray negative for pneumonia. Currently off antibiotic therapy. Continue supportive care. MMODL / IJN: [id number] /
[2017-09-21] MEDS: DILTIAZEM 125 MG in SODIUM CHLORIDE 0.9% 100 ML IV SCH (22:06)
[2017-09-21] MEDS: HEPARIN SOD,PORK IN 0.45% NACL 25,000 UNIT in 0.45% NACL 1 500ML.BAG IV SCH (22:06)
[2017-09-21] MEDS: HEPARIN SODIUM,PORCINE 5,000 UNIT/ML 1 ML VIAL IV PRN (23:05)
[2017-09-22] MEDS: METOPROLOL TARTRATE 5 MG/5 ML VIAL IVP SCH ×4 (00:40→23:35)
[2017-09-22] MEDS: HEPARIN SOD,PORK IN 0.45% NACL 25,000 UNIT in 0.45% NACL 1 500ML.BAG IV SCH ×2 (02:33→23:34)
[2017-09-22] MEDS: PROPOFOL 1,000 MG in EMPTY BAG 1 BAG IV SCH ×3 (04:26→23:33)
[2017-09-22] MEDS ORDERED: FUROSEMIDE 10 MG/ML 4 ML VIAL IV SCH (05:00)
[2017-09-22 05:14] LABS: Anisocytosis Slight; Basophils % (A) 0 %; Eosinophils # (A) 0.1 k/uL (0-0.7); Eosinophils % (A) 0 %; HCT 32.1 % (39.0-53.0); HGB 9.8 gm/dL (13.0-17.5); Hypochromasia Slight; Lymphocytes % (A) 8 %; MCH 27.8 pg (25.0-35.0); MCHC 30.5 g/dL (31.0-37.0); MCV 91.1 fL (80.0-100.0); Mean Platelet Volume 8.4; Monocytes # (A) 0.3 k/uL (0-1.0); Monocytes % (A) 3 %; Neutrophils # (A) 10.6 k/uL (1.3-7.7); Neutrophils % (A) 87 %; Platelet Count 293 k/uL (150-450); RBC 3.52 m/uL (4.30-5.90); RDW 16.2 % (11.5-15.5); WBC 12.2 k/uL (3.8-10.6)
[2017-09-22 05:30] LABS: Albumin 2.8 g/dL (3.5-5.0); Calcium 8.4 mg/dL (8.4-10.2); Potassium 4.7 mmol/L (3.5-5.1); Total Bilirubin 0.7 mg/dL (0.2-1.3); Total Protein 5.8 g/dL (6.3-8.2)
[2017-09-22] MEDS: LEVOTHYROXINE 25 MCG TAB PO SCH (05:56)
[2017-09-22] MEDS: ACETAMINOPHEN TAB 500 MG TAB PO PRN (05:56)
--- NOTE | 2017-09-22 07:47 | XR ---
EXAMINATION TYPE: XR chest 1V portable DATE OF EXAM: 09/22/2017 Comparison: 09/21/2017 Clinical History: 62 year-old male tube placement Findings: ET tube is satisfactory. NG tube sidehole is at the level of the GE junction and could be further adv anced. Heart normal size. Diffuse airspace disease shows significant interval improvement. Residual d ensities remain. No significant pleural effusion. Impression: 1. Satisfactory ET tube. 2. Note that the NG tube sidehole is at the level of the GE junction. The tube couldn't be passed fur ther into the stomach. 3. Significant improvement in the previous bilateral airspace disease. Residual densities remain. Fin dings suggest improving pulmonary edema.
[2017-09-22 08:06] LABS: ABG Base Excess -4.8 mmol/L; ABG HCO3 19 mmol/L (21-25); ABG Oxygen Saturation 99.5 % (94-97); ABG PCO2 26 mmHg (35-45); ABG PH 7.47 (7.35-7.45); ABG PO2 292 mmHg (83-108); ABG TCO2 20 mmol/L (19-24)
[2017-09-22] MEDS: IPRATROPIUM-ALBUTEROL 3 ML NEB INHALATION SCH ×3 (08:29→20:38)
[2017-09-22] MEDS ORDERED: NOREPINEPHRIN 4 MG-0.9% NS PMX 4 MG/250 ML ML IV ONE (08:42)
[2017-09-22] MEDS: CHLORHEXIDINE GLUCONATE 15 ML CUP MUCOUS MEM SCH ×2 (08:57→21:25)
[2017-09-22] MEDS: MAGNESIUM SULFATE-D5W PMX 1 GM in DEXTROSE/WATER 1 100ML.BAG IVPB SCH ×3 (08:57→11:27)
[2017-09-22] MEDS: ASPIRIN 81 MG PO SCH (08:59)
[2017-09-22] MEDS: FLUoxetine HCL 20 MG CAP PO SCH (08:59)
[2017-09-22] MEDS: MUPIROCIN 2% OINT 22 GM TUBE TOPICAL SCH ×2 (09:00→21:25)
[2017-09-22] MEDS: PANTOPRAZOLE 40 MG TABLET PO SCH (09:00)
[2017-09-22] MEDS: SENNOSIDES 8.6 MG TAB PO SCH (09:00)
[2017-09-22] MEDS: NICOTINE 21MG/24HR PATCH TRANSDERM SCH (09:00)
[2017-09-22] MEDS: FUROSEMIDE 10 MG/ML 4 ML VIAL IV SCH ×2 (09:18→21:25)
--- NOTE | 2017-09-22 09:28 | P.PN ---
Subjective Progress Note Date: 09/22/17 Principal diagnosis: Severe mitral valve regurgitation. Previous history of chronic persistent atrial fibrillation on Eliquis for anticoagulation, depression, peripheral artery disease, chronic nicotine dependence, chronic kidney disease stage III, hypertension, coronary artery disease with previous stent placement, GERD, and hypothyroidism. This 62-year-old gentleman presented to [facility] on 09/05/2017 with complaints of left foot pain and swelling, mainly to his left great toe after previous trauma. He was admitted for further treatment and evaluation. Subsequently he became unresponsive, bradycardic, and hypotensive. He was quickly intubated and taken to the intensive care unit for hemodynamic monitoring. He developed a lactic acidosis. In addition he developed atrial fibrillation. He was extubated, placed on BiPAP, and subsequently reintubated a few days later. A 2-D echocardiogram was completed which demonstrated normal left ventricular function with an ejection fraction between 55-60%, moderate aortic insufficiency, severe mitral regurgitation, mild tricuspid regurgitation. He then had a bedside transesophageal echocardiogram which demonstrated severe mitral valve regurgitation with a flail anterior leaflet, mild aortic insufficiency and severely impaired left ventricular function with an ejection fraction of 30-35%. Left heart catheterization was performed yesterday with no significant coronary stenosis. Cardiothoracic surgery was consulted for surgical repair of the patient's mitral valve. Status post cardiac catheterization on 09/25/2017 demonstrating a patent LAD stent and no significant coronary stenosis. Status post neck CTA demonstrating severe right internal carotid artery estimated at greater than 70%, moderate to severe narrowing of the proximal left internal carotid artery between 50-69%. Status post angiogram, no stent placement to the carotid arteries, right carotid approximately 70% stenosis, left carotid approximately 50% stenosis per angiogram. Status post cardiac arrest, reintubation for flash pulmonary edema. Patient's currently lying in bed in no acute distress. Currently sedated on mechanical ventilation. Does open eyes minimally but does not follow commands. Events of last night noted. Objective - Vital Signs Vital signs: Vital Signs Temp 101.2 F H 09/22/17 05:00 Pulse 75 09/22/17 08:48 Resp 23 09/22/17 07:00 BP 87/69 09/22/17 07:00 Pulse Ox 100 09/22/17 07:00 Intake & Output 09/21/17 09/22/17 09/22/17 18:59 06:59 18:59 Intake Total 1093.471 507.487 64 Output Total 570 1160 125 Balance 523.471 -652.513 -61 Weight 76.2 kg Intake: IV 120 200 20 Sodium Chloride 0.9% 1, 120 200 20 000 ml @ 20 mls/hr IV . Q24H [facility] Rx#:[id number] Intake, IV Titration 737.471 307.487 44 Amount Amiodarone 450 mg In 176.874 Dextrose 5% in Water 250 ml @ 0.5 MG/MIN 16.66 mls /hr IV .Q15H1M AJ Rx#: [id number] Diltiazem 125 mg In 125 30.25 Sodium Chloride 0.9% 100 ml @ 5 MG/HR 5 mls/hr IV .Q24H [facility] Rx#:[id number] Heparin Sod,Pork in 0.45% 435.597 177.237 NaCl 25,000 unit In 0.45 % NaCl 1 500ml.bag @ 12 UNITS/KG/HR 18.74 mls/hr IV .Q24H [facility] Rx#: [id number] Propofol 1,000 mg In 100.00 44 Empty Bag 1 bag @ Titrate IV .Q0M AJ Rx#: [id number] Oral 236 Output: Urine 570 1160 125 Other: Voiding Method Urinal Indwelling Catheter # Voids 0 # Bowel Movements 0 0 ABP, PAP, CO, CI - Last Documented Arterial Blood Pressure 125/83 - Constitutional General appearance: Present: no acute distress - Respiratory Details: Lungs sounds diminished bilaterally with coarse breath sounds in the bases. Respirations even, nonlabored on mechanical ventilation. Current settings assist control mode, FiO2 70%, tidal volume 540, respiratory rate 18, PEEP 10. 7.5 ET tube present, 20 through the lip. - Cardiovascular Details: S1, S2 present. Irregular rate and rhythm, controlled atrial fibrillation on telemetry. Palpable peripheral pulses bilaterally. No edema present. No calf pain or tenderness noted. Currently on Cardizem and heparin drips. SCDs present. - Gastrointestinal Gastrointestinal Comment(s): Abdomen: Soft, nontender, slightly distended. Active bowel sounds 4 quadrants. OG tube present to low intermittent suction. - Genitourinary Genitourinary Comment(s): Bea[place] present draining clear, yellow urine. Output 50-300 mL/h overnight. - Integumentary Integumentary Comment(s): Skin is warm and dry with evidence of good perfusion. - Neurologic Neurologic Comment(s): Withdraws to painful stimuli. - Musculoskeletal Musculoskeletal: Present: generalized weakness - Psychiatric Psychiatric Comment(s): Currently sedated on mechanical ventilation. - Allied health notes Allied health notes reviewed: nursing - Labs CBC & Chem 7: 09/22/17 04:40 09/22/17 04:40 Labs: Abnormal Lab Results - Last 24 Hours (Table) 09/21/17 09/21/17 09/21/17 Range/Units 19:06 19:45 20:34 WBC (3.8-10.6) k/uL RBC (4.30-5.90) m/uL Hgb (13.0-17.5) gm/dL Hct (39.0-53.0) % MCHC (31.0-37.0) g/dL RDW (11.5-15.5) % Neutrophils # (1.3-7.7) k/uL APTT (22.0-30.0) sec ABG pH 7.34 L (7.35-7.45) ABG pCO2 32 L (35-45) mmHg ABG pO2 48 L (83-108) mmHg ABG HCO3 17 L (21-25) mmol/L ABG Total CO2 18 L (19-24) mmol/L ABG O2 Saturation 75.0 L (94-97) % Sodium 135 L (137-145) mmol/L Carbon Dioxide 12 L (22-30) mmol/L BUN (9-20) mg/dL Creatinine 1.60 H (0.66-1.25) mg/dL Glucose 202 H (74-99) mg/dL POC Glucose (mg/dL) 104 H (75-99) mg/dL Magnesium (1.6-2.3) mg/dL ALT 100 H (21-72) U/L Total Protein (6.3-8.2) g/dL Albumin 3.2 L (3.5-5.0) g/dL 09/21/17 09/22/17 09/22/17 Range/Units 21:38 04:40 04:40 WBC 12.2 H (3.8-10.6) k/uL RBC 3.52 L (4.30-5.90) m/uL Hgb 9.8 L (13.0-17.5) gm/dL Hct 32.1 L (39.0-53.0) % MCHC 30.5 L (31.0-37.0) g/dL RDW 16.2 H (11.5-15.5) % Neutrophils # 10.6 H (1.3-7.7) k/uL APTT 36.9 H (22.0-30.0) sec ABG pH (7.35-7.45) ABG pCO2 (35-45) mmHg ABG pO2 (83-108) mmHg ABG HCO3 (21-25) mmol/L ABG Total CO2 (19-24) mmol/L ABG O2 Saturation (94-97) % Sodium 134 L (137-145) mmol/L Carbon Dioxide 18 L (22-30) mmol/L BUN 23 H (9-20) mg/dL Creatinine 1.80 H (0.66-1.25) mg/dL Glucose 106 H (74-99) mg/dL POC Glucose (mg/dL) (75-99) mg/dL Magnesium (1.6-2.3) mg/dL ALT 89 H (21-72) U/L Total Protein 5.8 L (6.3-8.2) g/dL Albumin 2.8 L (3.5-5.0) g/dL 09/22/17 09/22/17 09/22/17 Range/Units 04:40 04:44 07:55 WBC (3.8-10.6) k/uL RBC (4.30-5.90) m/uL Hgb (13.0-17.5) gm/dL Hct (39.0-53.0) % MCHC (31.0-37.0) g/dL RDW (11.5-15.5) % Neutrophils # (1.3-7.7) k/uL APTT 52.0 H (22.0-30.0) sec ABG pH 7.47 H (7.35-7.45) ABG pCO2 26 L (35-45) mmHg ABG pO2 292 H (83-108) mmHg ABG HCO3 19 L (21-25) mmol/L ABG Total CO2 (19-24) mmol/L ABG O2 Saturation 99.5 H (94-97) % Sodium (137-145) mmol/L Carbon Dioxide (22-30) mmol/L BUN (9-20) mg/dL Creatinine (0.66-1.25) mg/dL Glucose (74-99) mg/dL POC Glucose (mg/dL) (75-99) mg/dL Magnesium 1.5 L (1.6-2.3) mg/dL ALT (21-72) U/L Total Protein (6.3-8.2) g/dL Albumin (3.5-5.0) g/dL Microbiology - Last 24 Hours (Table) 09/15/17 12:22 Blood Culture - Final Blood No Growth after 144 hours - Imaging and Cardiology Chest x-ray: report reviewed, image reviewed Assessment and Plan (1) Acute and chronic respiratory failure with hypoxia Current Visit: Yes Status: Acute Code(s): J96.21 - ACUTE AND CHRONIC RESPIRATORY FAILURE WITH HYPOXIA SNOMED Code(s): 31925539 (2) COPD (chronic obstructive pulmonary disease) Current Visit: Yes Status: Chronic Code(s): J44.9 - CHRONIC OBSTRUCTIVE PULMONARY DISEASE, UNSPECIFIED SNOMED Code(s): 40545660 (3) Chronic kidney disease, stage III (moderate) Current Visit: Yes Status: Chronic Code(s): N18.3 - CHRONIC KIDNEY DISEASE, STAGE 3 (MODERATE) SNOMED Code(s): 580755973 (4) Gangrenous toe Current Visit: Yes Status: Chronic Code(s): I96 - GANGRENE, NOT ELSEWHERE CLASSIFIED SNOMED Code(s): 706582256 (5) History of bradycardia Current Visit: No Status: Resolved Code(s): Z86.79 - PERSONAL HISTORY OF OTHER DISEASES OF THE CIRCULATORY SYSTEM SNOMED Code(s): 341664375379813 (6) History of coronary artery disease Current Visit: No Status: Resolved Code(s): Z86.79 - PERSONAL HISTORY OF OTHER DISEASES OF THE CIRCULATORY SYSTEM SNOMED Code(s): 800845233 (7) History of depression Current Visit: Yes Status: Chronic Code(s): Z86.59 - PERSONAL HISTORY OF OTHER MENTAL AND BEHAVIORAL DISORDERS SNOMED Code(s): 061345333 (8) Hypertension Current Visit: Yes Status: Chronic Code(s): I10 - ESSENTIAL (PRIMARY) HYPERTENSION SNOMED Code(s): 96908984 (9) Hypothyroidism Current Visit: Yes Status: Chronic Code(s): E03.9 - HYPOTHYROIDISM, UNSPECIFIED SNOMED Code(s): 43697087 (10) Peripheral vascular disease Current Visit: Yes Status: Chronic Code(s): I73.9 - PERIPHERAL VASCULAR DISEASE, UNSPECIFIED SNOMED Code(s): 819479317 (11) New onset a-fib Current Visit: Yes Status: Acute Code(s): I48.91 - UNSPECIFIED ATRIAL FIBRILLATION SNOMED Code(s): 94045863 (12) Carotid artery stenosis Current Visit: Yes Status: Chronic Code(s): I65.29 - OCCLUSION AND STENOSIS OF UNSPECIFIED CAROTID ARTERY SNOMED Code(s): 35927535 (13) Mitral valve regurgitation Current Visit: Yes Status: Chronic Code(s): I34.0 - NONRHEUMATIC MITRAL ( VALVE) INSUFFICIENCY SNOMED Code(s): 53597640 Plan: 1. Plan is for mitral valve repair versus replacement on Monday, September 25. 2. Wean from mechanical ventilation as tolerated. Aggressive pulmonary hygiene once extubated. Ventilator management per pulmonology. 3. Continue heparin drip, Cardizem drip, aspirin, beta skylar per cardiology management. 4. Bronchodilators per pulmonology. 5. Avoid nephrotoxic agents. 6. GI/DVT prophylaxis. 7. Patient has received dental clearance for valve surgery. 8. More recommendations to follow Time with Patient: Greater than 30
[2017-09-22] MEDS: PIPERACILLIN-TAZOBACTAM 3.375 GM in DEXTROSE/WATER 1 50ML.BAG IVPB SCH ×2 (10:32→21:25)
--- NOTE | 2017-09-22 10:39 | P.PN ---
Subjective Progress Note Date: 09/22/17 This patient remains intubated and sedated. Patient is in atrial fibrillation now. Rate is controlled with combination of Cardizem and amiodarone. Patient was seen by Dr. Addison and felt that is a ganglion the left foot is stable and doesn't need any surgical intervention. I spoke with Dr. Godoy regarding evaluation of hi mitral regurgitation and is going to do CLARE tomorrow morning. He is going to keep him intubated until the CLARE is performed. If necessary we' ll get a consult from the cardiac surgeons. Meanwhile patient will stay on current medical therapy. Progress note for 09/16/2017: This patient still having a intermittent bouts of atrial fibrillation alternating with bradycardia and he converts into sinus rhythm. Patient is on amiodarone and also Cardizem drip and bolus of metoprolol. Pulmonary is trying to wean him off the respirator. Cardiac surgeons apparently cannot do the surgery for several days. His cardiac catheterization revealed evidence of significant mitral regurg with an ejection fraction of 50-55%. No significant obstructive coronary artery disease noted. Prognosis is guarded. Progress note for 09/17/2017: This patient was extubated yesterday. He is alert and oriented and doesn't appear to be in acute distress. He is in atrial fibrillation with moderately rapid ventricular response. Denies any chest pain. Examination the heart reveals irregular heart rhythm with murmur at the apex. Lungs show good air entry. Waiting to have mitral valve repair on Monday. Progress note for 09/18/2017: Patient remains extubated. Denies any chest pain or shortness of breath. A chest x-ray showed evidence of CHF. Diuretic dose is being increased. Patient is maintaining atrial flutter fib with a heart rate of 110. Lungs are clear. Heart is irregular. We'll continue current management. Mitral valve replacement planned for Monday Progress note for 09/19/2017: This patient remains stable since yesterday. Sitting up in the chair without any acute distress. Chest x-ray shows some improvement. Patient continues to be in atrial flutter fib with heart rates varying between 100 to 1:30. We will switch amiodarone to by mouth and probably swith Cardizem to by mouth tomorrow. He is also on IV heparin. Patient has apparently significant focal carotid disease. Patient is being seen by Dr. Walker for possible stent placement. We will continue current management. Progress note for 09/20/2017: This patient remains stable. Doesn't appear to be in acute distress. Patient is back on amiodarone drip because his heart rate is high. Yesterday. he also on IV metoprolol along with IV Cardizem. Patient is waiting to have carotid stent placement by Dr. Walker tomorrow. Denies any chest pain or shortness of breath. Remains in atrial fibrillation. Lungs show good air entry. Heart S1 and S2 heard. Regular heart sounds, systolic murmur at the apex. Patient will continue current medical therapy. Further recommendation as per Dr. Walker and also cardiac surgeon. Progress note for 09/22/2017: This patient had carotid angiogram yesterday. He was not found any critical stenosis. Conservative management was suggested. Patient came to ICU yesterday and was transferred to telemetry unit. Apparently patient developed bradycardia cardiac arrest requiring CPR. He chest x-ray subsequent a showed severe pulmonary edema. He was transferred to intensive care unit after intubation. Patient apparently fully intact mentally , When sedation is turned down. His creatinine has gone up. There is also some elevated temperature. Patient is covered with antibiotics. Cardiothoracic surgeon is planning for possible mitral valve replacement on Monday. Meanwhile, we'll continue supportive measures including IV amiodarone and Cardizem along with anticoagulation. Prognosis is guarded Objective - Vital Signs Vital signs: Vital Signs Temp 101.2 F H 09/22/17 05:00 Pulse 75 09/22/17 08:48 Resp 23 09/22/17 07:00 BP 87/69 09/22/17 07:00 Pulse Ox 100 09/22/17 07:00 Intake & Output 09/21/17 09/22/17 09/22/17 18:59 06:59 18:59 Intake Total 1093.471 507.487 64 Output Total 570 1160 125 Balance 523.471 -652.513 -61 Weight 76.2 kg Intake: IV 120 200 20 Sodium Chloride 0.9% 1, 120 200 20 000 ml @ 20 mls/hr IV . Q24H [facility] Rx#:[id number] Intake, IV Titration 737.471 307.487 44 Amount Amiodarone 450 mg In 176.874 Dextrose 5% in Water 250 ml @ 0.5 MG/MIN 16.66 mls /hr IV .Q15H1M [facility] Rx#: [id number] Diltiazem 125 mg In 125 30.25 Sodium Chloride 0.9% 100 ml @ 5 MG/HR 5 mls/hr IV .Q24H AJ Rx#:[id number] Heparin Sod,Pork in 0.45% 435.597 177.237 NaCl 25,000 unit In 0.45 % NaCl 1 500ml.bag @ 12 UNITS/KG/HR 18.74 mls/hr IV .Q24H AJ Rx#: [id number] Propofol 1,000 mg In 100.00 44 Empty Bag 1 bag @ Titrate IV .Q0M AJ Rx#: [id number] Oral 236 Output: Urine 570 1160 125 Other: Voiding Method Urinal Indwelling Catheter # Voids 0 # Bowel Movements 0 0 ABP, PAP, CO, CI - Last Documented Arterial Blood Pressure 125/83 - Exam GENERAL EXAM: Patient is intubated and sedated HEENT: Normocephalic. N CHEST: No chest wall deformity. LUNGS: Diminished breath sounds HEART: S1, S2 regular. Systolic murmur at the apex ABDOMEN: No hepatosplenomegaly, normal bowel sounds, no guarding or rigidity. SKIN: No rashes CENTRAL NERVOUS SYSTEM: Deferred EXTREMITIES: Dry gangrenous changes on the left foot - Labs CBC & Chem 7: 09/22/17 04:40 09/22/17 04:40 Labs: Abnormal Lab Results - Last 24 Hours (Table) 09/21/17 09/21/17 09/21/17 Range/Units 19:06 19:45 20:34 WBC (3.8-10.6) k/uL RBC (4.30-5.90) m/uL Hgb (13.0-17.5) gm/dL Hct (39.0-53.0) % MCHC (31.0-37.0) g/dL RDW (11.5-15.5) % Neutrophils # (1.3-7.7) k/uL APTT (22.0-30.0) sec ABG pH 7.34 L (7.35-7.45) ABG pCO2 32 L (35-45) mmHg ABG pO2 48 L (83-108) mmHg ABG HCO3 17 L (21-25) mmol/L ABG Total CO2 18 L (19-24) mmol/L ABG O2 Saturation 75.0 L (94-97) % Sodium 135 L (137-145) mmol/L Carbon Dioxide 12 L (22-30) mmol/L BUN (9-20) mg/dL Creatinine 1.60 H (0.66-1.25) mg/dL Glucose 202 H (74-99) mg/dL POC Glucose (mg/dL) 104 H (75-99) mg/dL Magnesium (1.6-2.3) mg/dL ALT 100 H (21-72) U/L Total Protein (6.3-8.2) g/dL Albumin 3.2 L (3.5-5.0) g/dL 09/21/17 09/22/17 09/22/17 Range/Units 21:38 04:40 04:40 WBC 12.2 H (3.8-10.6) k/uL RBC 3.52 L (4.30-5.90) m/uL Hgb 9.8 L (13.0-17.5) gm/dL Hct 32.1 L (39.0-53.0) % MCHC 30.5 L (31.0-37.0) g/dL RDW 16.2 H (11.5-15.5) % Neutrophils # 10.6 H (1.3-7.7) k/uL APTT 36.9 H (22.0-30.0) sec ABG pH (7.35-7.45) ABG pCO2 (35-45) mmHg ABG pO2 (83-108) mmHg ABG HCO3 (21-25) mmol/L ABG Total CO2 (19-24) mmol/L ABG O2 Saturation (94-97) % Sodium 134 L (137-145) mmol/L Carbon Dioxide 18 L (22-30) mmol/L BUN 23 H (9-20) mg/dL Creatinine 1.80 H (0.66-1.25) mg/dL Glucose 106 H (74-99) mg/dL POC Glucose (mg/dL) (75-99) mg/dL Magnesium (1.6-2.3) mg/dL ALT 89 H (21-72) U/L Total Protein 5.8 L (6.3-8.2) g/dL Albumin 2.8 L (3.5-5.0) g/dL 09/22/17 09/22/17 09/22/17 Range/Units 04:40 04:44 07:55 WBC (3.8-10.6) k/uL RBC (4.30-5.90) m/uL Hgb (13.0-17.5) gm/dL Hct (39.0-53.0) % MCHC (31.0-37.0) g/dL RDW (11.5-15.5) % Neutrophils # (1.3-7.7) k/uL APTT 52.0 H (22.0-30.0) sec ABG pH 7.47 H (7.35-7.45) ABG pCO2 26 L (35-45) mmHg ABG pO2 292 H (83-108) mmHg ABG HCO3 19 L (21-25) mmol/L ABG Total CO2 (19-24) mmol/L ABG O2 Saturation 99.5 H (94-97) % Sodium (137-145) mmol/L Carbon Dioxide (22-30) mmol/L BUN (9-20) mg/dL Creatinine (0.66-1.25) mg/dL Glucose (74-99) mg/dL POC Glucose (mg/dL) (75-99) mg/dL Magnesium 1.5 L (1.6-2.3) mg/dL ALT (21-72) U/L Total Protein (6.3-8.2) g/dL Albumin (3.5-5.0) g/dL Microbiology - Last 24 Hours (Table) 09/15/17 12:22 Blood Culture - Final Blood No Growth after 144 hours Assessment and Plan (1) CAD (coronary artery disease) Current Visit: Yes Status: Acute Code(s): I25.10 - ATHSCL HEART DISEASE OF [place] CORONARY ARTERY W/O ANG PCTRS SNOMED Code(s): 80192286 (2) Peripheral vascular disease Current Visit: Yes Status: Chronic Code(s): I73.9 - PERIPHERAL VASCULAR DISEASE, UNSPECIFIED SNOMED Code(s): 950886881 (3) New onset a-fib Current Visit: Yes Status: Acute Code(s): I48.91 - UNSPECIFIED ATRIAL FIBRILLATION SNOMED Code(s): 52778284 (4) Acute pulmonary edema Current Visit: Yes Status: Acute Code(s): J81.0 - ACUTE PULMONARY EDEMA SNOMED Code(s): 46356139 (5) Pneumonia Current Visit: Yes Status: Acute Code(s): J18.9 - PNEUMONIA, UNSPECIFIED ORGANISM SNOMED Code(s): 035573436 Plan: Patient went into pulmonary edema and cardiac pulmonary arrest yesterday. Patient is intubated and sedated this time. Chest x-ray showed significant improvement. Patient is an atrial fibrillation with controlled ventricular response. Continue current management. Possible mitral replacement on Monday.
[2017-09-22] MEDS: SODIUM CHLORIDE 0.9% 1,000 ML IV SCH (11:28)
--- NOTE | 2017-09-22 11:41 | P.PN ---
Subjective Progress Note Date: 09/22/17 Principal diagnosis: Severe mitral valve regurgitation, recurrent episodes of flash pulmonary edema and respiratory failure requiring intubation and mechanical ventilation. This is a very pleasant 62-year-old gentleman who was found to have severe mitral valve stenosis. He had developed acute respiratory failure requiring intubation mechanical ventilatory support. He has been successfully extubated. He is seen again today in follow-up in the intensive care unit. He is awake and alert in no acute distress. The plan is for a right carotid stent tomorrow for greater than 70% stenosis. The patient will need to be on Plavix for 2 weeks and high-dose aspirin. The plan will be for possible mitral valve repair/ replacement following that time. In the interim he remains on a heparin drip for his atrial fibrillation. He remains on a Cardizem drip at 10 mg per hour. Amiodarone drip at 0.5 mg/m. Still having issues with tachycardia in regards to the atrial fibrillation. He is requiring 4 L nasal cannula to maintain O2 saturations in the 90s. Yesterday's chest x-ray revealed some persistent mild central vascular congestion with a new small right pleural effusion. There is cardiomegaly. Blood, sputum and urine cultures reveal no growth. No leukocytosis. Hemoglobin 9.9. Creatinine 1.40. He did have issues with diarrhea. C. difficile screen was negative. Patient was reevaluated today on 09/21/2017, patient is comfortable, in no distress, no shortness of breath no cough no wheezing, patient is scheduled to have carotid artery stenting today. This will be done by Dr. Walker. Continues to have intermittent episodes of tachyarrhythmias with intermittent episodes of sinus bradycardia and atrial fibrillation. Blood pressure is also fluctuating up and down intermittently. No chest x-ray was done today, all his labs were reviewed, creatinine is 1.30 today. Otherwise the labs are unremarkable. Patient was reevaluated today on 09/22/2017, patient was transferred out of the ICU yesterday to a monitor bed on , however early evening hours, patient developed an acute episode of bradycardia, cardiac arrest, required CPR. Reintubation and placement on mechanical ventilation. The chest x-ray showed again flash pulmonary edema. Patient was diuresed overnight, he was kept on mechanical ventilation, and his chest x-ray is showing significant improvement compared to yesterday's x-ray just after the code. Patient is arousable, follows simple instructions, no evidence of acute brain injury noted. Patient was seen by cardiology and he was seen by cardiothoracic surgery , and I believe at this point he is scheduled to have mitral valve replacement on Monday. In the meantime I plan to keep the patient on mechanical ventilation , and we'll continue to diurese him. We'll monitor his renal status closely, it will likely improve. Patient may have developed a slight kidney injury secondary to acute tumor necrosis. ABG this morning showed a pO2 of 292 pCO2 of 26 pH of 7.47, WBC count is 12.2 hemoglobin is 9.8. Basic metabolic profile is normal except for BUN 23 creatinine 1.80, and it was 1.60 yesterday. Objective - Vital Signs Vital signs: Vital Signs Temp 101.2 F H 09/22/17 05:00 Pulse 75 09/22/17 08:48 Resp 23 09/22/17 07:00 BP 87/69 09/22/17 07:00 Pulse Ox 100 09/22/17 07:00 Intake & Output 09/21/17 09/22/17 09/22/17 18:59 06:59 18:59 Intake Total 1093.471 507.487 64 Output Total 570 1160 125 Balance 523.471 -652.513 -61 Weight 76.2 kg Intake: IV 120 200 20 Sodium Chloride 0.9% 1, 120 200 20 000 ml @ 20 mls/hr IV . Q24H AJ Rx#:[id number] Intake, IV Titration 737.471 307.487 44 Amount Amiodarone 450 mg In 176.874 Dextrose 5% in Water 250 ml @ 0.5 MG/MIN 16.66 mls /hr IV .Q15H1M AJ Rx#: [id number] Diltiazem 125 mg In 125 30.25 Sodium Chloride 0.9% 100 ml @ 5 MG/HR 5 mls/hr IV .Q24H AJ Rx#:[id number] Heparin Sod,Pork in 0.45% 435.597 177.237 NaCl 25,000 unit In 0.45 % NaCl 1 500ml.bag @ 12 UNITS/KG/HR 18.74 mls/hr IV .Q24H [facility] Rx#: [id number] Propofol 1,000 mg In 100.00 44 Empty Bag 1 bag @ Titrate IV .[facility]0M [facility] Rx#: [id number] Oral 236 Output: Urine 570 1160 125 Other: Voiding Method Urinal Indwelling Catheter # Voids 0 # Bowel Movements 0 0 ABP, PAP, CO, CI - Last Documented Arterial Blood Pressure 125/83 - Exam GENERAL EXAM: Revealed a 62-year-old -[place] male, on mechanical ventilation, arousable, follows simple instructions. HEAD: Normocephalic. EYES: Normal reaction of pupils, equal size. NOSE: Clear with pink turbinates. THROAT: No erythema or exudates. Endotracheal tube seems to be intact. Orogastric tube is also intact. NECK: No masses, no JVD. CHEST: No chest wall deformity. LUNGS: Minimal fine crackles at the bases, no rhonchi no wheezes. CVS: S1 and S2 normal, 2/6 systolic murmur throughout the precordium., irregular rhythm. Tachycardic. ABDOMEN: No hepatosplenomegaly, normal bowel sounds, no guarding or rigidity. SPINE: No scoliosis or deformity SKIN: No rashes CENTRAL NERVOUS SYSTEM: No focal deficits, tone is normal in all 4 extremities. EXTREMITIES: There is no peripheral edema. No clubbing, no cyanosis. Peripheral pulses are intact. - Labs CBC & Chem 7: 09/22/17 04:40 09/22/17 04:40 Labs: Abnormal Lab Results - Last 24 Hours (Table) 09/21/17 09/21/17 09/21/17 Range/Units 19:06 19:45 20:34 WBC (3.8-10.6) k/uL RBC (4.30-5.90) m/uL Hgb (13.0-17.5) gm/dL Hct (39.0-53.0) % MCHC (31.0-37.0) g/dL RDW (11.5-15.5) % Neutrophils # (1.3-7.7) k/uL APTT (22.0-30.0) sec ABG pH 7.34 L (7.35-7.45) ABG pCO2 32 L (35-45) mmHg ABG pO2 48 L (83-108) mmHg ABG HCO3 17 L (21-25) mmol/L ABG Total CO2 18 L (19-24) mmol/L ABG O2 Saturation 75.0 L (94-97) % Sodium 135 L (137-145) mmol/L Carbon Dioxide 12 L (22-30) mmol/L BUN (9-20) mg/dL Creatinine 1.60 H (0.66-1.25) mg/dL Glucose 202 H (74-99) mg/dL POC Glucose (mg/dL) 104 H (75-99) mg/dL Magnesium (1.6-2.3) mg/dL ALT 100 H (21-72) U/L Total Protein (6.3-8.2) g/dL Albumin 3.2 L (3.5-5.0) g/dL 09/21/17 09/22/17 09/22/17 Range/Units 21:38 04:40 04:40 WBC 12.2 H (3.8-10.6) k/uL RBC 3.52 L (4.30-5.90) m/uL Hgb 9.8 L (13.0-17.5) gm/dL Hct 32.1 L (39.0-53.0) % MCHC 30.5 L (31.0-37.0) g/dL RDW 16.2 H (11.5-15.5) % Neutrophils # 10.6 H (1.3-7.7) k/uL APTT 36.9 H (22.0-30.0) sec ABG pH (7.35-7.45) ABG pCO2 (35-45) mmHg ABG pO2 (83-108) mmHg ABG HCO3 (21-25) mmol/L ABG Total CO2 (19-24) mmol/L ABG O2 Saturation (94-97) % Sodium 134 L (137-145) mmol/L Carbon Dioxide 18 L (22-30) mmol/L BUN 23 H (9-20) mg/dL Creatinine 1.80 H (0.66-1.25) mg/dL Glucose 106 H (74-99) mg/dL POC Glucose (mg/dL) (75-99) mg/dL Magnesium (1.6-2.3) mg/dL ALT 89 H (21-72) U/L Total Protein 5.8 L (6.3-8.2) g/dL Albumin 2.8 L (3.5-5.0) g/dL 09/22/17 09/22/17 09/22/17 Range/Units 04:40 04:44 07:55 WBC (3.8-10.6) k/uL RBC (4.30-5.90) m/uL Hgb (13.0-17.5) gm/dL Hct (39.0-53.0) % MCHC (31.0-37.0) g/dL RDW (11.5-15.5) % Neutrophils # (1.3-7.7) k/uL APTT 52.0 H (22.0-30.0) sec ABG pH 7.47 H (7.35-7.45) ABG pCO2 26 L (35-45) mmHg ABG pO2 292 H (83-108) mmHg ABG HCO3 19 L (21-25) mmol/L ABG Total CO2 (19-24) mmol/L ABG O2 Saturation 99.5 H (94-97) % Sodium (137-145) mmol/L Carbon Dioxide (22-30) mmol/L BUN (9-20) mg/dL Creatinine (0.66-1.25) mg/dL Glucose (74-99) mg/dL POC Glucose (mg/dL) (75-99) mg/dL Magnesium 1.5 L (1.6-2.3) mg/dL ALT (21-72) U/L Total Protein (6.3-8.2) g/dL Albumin (3.5-5.0) g/dL Microbiology - Last 24 Hours (Table) 09/22/17 06:40 Urine Culture - Preliminary Urine,Catheterized 09/15/17 12:22 Blood Culture - Final Blood No Growth after 144 hours Assessment and Plan Assessment: Recurrent episodes of hypoxic respiratory failure requiring intubation and mechanical ventilation, mostly secondary to mitral valve disease, and the patient is developing flash pulmonary edema is intermittently. Considering the significant improvement of the chest x-ray after diuresis, this is clearly a cardiogenic pulmonary edema, not ARDS, and not pneumonia. Atrial fibrillation/RVR, presently controlled with amiodarone, Recurrent systolic Congestive heart failure, secondary to severe mitral regurgitation and cardiomyopathy with an ejection fraction of 25% Intermittent sinus bradycardia History of CAD with previous stent placement History of COPD History of essential hypertension History of depression Peripheral vascular occlusive disease Hypothyroidism Hypertensive nephrosclerosis with chronic kidney disease, stage III Acute cellulitis and dry gangrene of the left big toe, status post debridement Bilateral carotid disease, worse on the right with a greater than 70% obstruction, angiogram showed the obstruction was nonsignificant. Recommendation: Continue present supportive care measures, his carotid angiogram was felt to be nonsignificant to consider stent placement in the right carotid artery. Patient will be kept on mechanical ventilation for now, we'll continue to diurese, address nutritional support, continue GI and DVT prophylaxis, he is presently on heparin, discussed his condition with different consultants, most likely the patient will undergo mitral valve replacement next Monday. Critical care time is 35 minutes. Time with Patient: Greater than 30
[2017-09-22] MEDS ORDERED: CALCIUM GLUCONATE 1,000 MG in SODIUM CHLORIDE 0.9% 100 ML IVPB ONE (13:00)
--- NOTE | 2017-09-22 15:37 | PN ---
PROGRESS NOTE Patient is seen for followup for acute kidney injury. The patient had his carotid angiogram again yesterday. He did not have carotid endarterectomy and it was decided to proceed with medical treatment. Last night, patient developed acute pulmonary edema and was re-intubated. He is being seen by cardiothoracic surgery and there are plans for mitral valve surgery following Monday. He has had good urine output and serum creatinine, however, is up to 1.8 from 1.6 yesterday. He is also maintained on Levophed currently at about 4 mcg. EXAMINATION: Patient is on the vent. Blood pressure was 106/60, heart rate 90 per minute. He is afebrile. Examination of the heart S1, S2. Examination lungs bilateral breath sounds are heard. ABDOMEN: Soft, distended, nontender. Examination lower extremity shows no significant edema. The left 1st and 2nd toes are currently wrapped. LAB: Show sodium 134, potassium 4.7, chloride 104, CO2 is 18, BUN 23, serum creatinine 1.8, hemoglobin 9.8 g/dL, magnesium 1.5. ASSESSMENT: 1. Acute kidney injury with worsening of renal function over the last couple of days, mainly secondary to contrast nephropathy, currently nonoliguric. The patient had another dye study yesterday. He is maintained on Lasix, which is recently decreased to 40 mg q.12 hours, which we will continue. There are no other nephrotoxic agents on board. Hopefully renal function will stabilize over the weekend as he is scheduled for surgery on Monday. He is scheduled for a valvular heart surgery on Monday. 2. Recurrent flash pulmonary edema with consideration for possible renal artery stenosis, but patient also has severe mitral regurgitation which is most likely also significantly contributing to his recurrent pulmonary edema. 3. Atrial fibrillation with RVR, currently with controlled ventricular response and heart rate actually a bit on the lower side. 4. Carotid artery stenosis. No plans for intervention. No plans for surgical intervention. 5. Vent dependent respiratory failure secondary to recurrent pulmonary edema. PLAN: 1. Try to wean down Levophed. 2. Continue current decreased dose of Lasix. 3. Avoid any other dye study for now. 4. Repeat labs in a.m. MMODL / IJN: [id number] /
[2017-09-22] MEDS: AMIODARONE 450 MG in DEXTROSE 5% IN WATER 250 ML IV SCH ×2 (16:24)
[2017-09-22] MEDS: NOREPINEPHRIN 4 MG-0.9% NS PMX 4 MG/250 ML ML IV SCH (16:25)
--- NOTE | 2017-09-22 16:29 | P.PN ---
Progress Note - Text Progress Note Date: 09/22/17 DATE OF SERVICE: 09/22/2017 PRESENTING COMPLAINT: Atrial fibrillation, mitral valve repair pending. HISTORY OF PRESENT ILLNESS: 62-year-old male who was admitted with an infected left toe from recent trauma. Failed outpatient treatment. When internal arrhythmia, then went into respiratory failure and was intubated. Was extubated and had to be reintubated. Remains on the ventilator FiO2 of 40 and a PEEP of 5. Currently in atrial fibrillation with rapid ventricular rate and pauses. Remains on amiodarone and Cardizem drip as well as IV heparin and propofol. Had a CLARE on 09/14/2017 and found to have severe mitral regurgitation. INTERVAL HISTORY: 09/22/2017: Patient was transferred out of the ICU yesterday to monitored bed on selective however in the early evening hours developed acute episode of bradycardia, cardiac arrest requiring CPR. Was returned to the ICU and reintubated and placed on mechanical ventilation, chest x-ray revealed flash pulmonary edema. Diuresed overnight remains on mechanical ventilation chest x-ray showing significant improvement compared T yesterday's x-ray after the code. When sedation lifted patient is able to follow simple straightforward commands. Sustained an elevation in his creatinine. We'll likely have mitral valve replacement on Monday. Recognizes family. 09/21/2017: Patient lying in bed just returned from the porcelain enamel laborer where he was to have carotid stent placement. Upon evaluation of the cigar packer and sorter, patient did not have enough stenosis requiring any type of stent no stents were placed. Patient returned to the ICU for recovery. Lying flat, right groin clean dry and intact no bleeding or hematoma noted. Remains in atrial fibrillation rate better controlled but does pop up to the 120s to 130s periodically. Continues on amiodarone Cardizem and heparin drips. Diet to be advanced, allowed to get up in about 6 hours as they used to groin approach. Last BM 09/19/2017. 09/20/2017: Patient lying in bed getting ready to get out of bed and sit in the chair. Appears comfortable. Alert and oriented able to answer all questions. Mild shortness of breath with exertion no chest pains. Remains in atrial fibrillation with rapid ventricular response amiodarone, Cardizem, and heparin continue. Patient is scheduled for bilateral carotid stents placement tomorrow with Dr. Walker. Tolerating his diet, eating about 50% of his meals. Up with assistance gait remains pretty weak. Last BM 09/19/2017. 09/19/2017: Sitting up in the chair visiting with a friend very comfortable wide awake able to answer all questions no shortness of breath or chest pains noted. Continues to be in atrial fibrillation rapid ventricular response amiodarone and Cardizem drip continue as well as heparin. Plans by cardiology to switch to oral Cardizem and amiodarone. Carotid ultrasound done yesterday found significant stenosis bilaterally. Cardiothoracic surgery team holding on mitral valve repair until significant stenosis bilaterally is taking care of. Tolerating his diet eating 75 to auto percent of his meals. Up with assistance, last BM . 09/18/2017: Patient lying in bed appears very comfortable wide awake able to answer all questions conversation is easy, overnight patient had be placed on the BiPAP for little bit. X-ray this morning shows worsening pulmonary edema. States his appetite is improving but continues to be difficult to eat. Eating between 20 and 50% of his meals. Continues on amiodarone and Cardizem drip as well as heparin. Tentative plan for mitral valve repair on Monday or of this week. 09/17/2017: Sitting up in a chair at the bedside, appears very comfortable wide awake alert able to answer questions conversation flows easily. States his appetite is pretty low, food doesn't taste very good to him. He ate about 20-30% of his breakfast. Remains in the ICU on amiodarone and Cardizem drip as well as heparin. Continues to have bursts of atrial fibrillation with RVR and alternating bradycardia when converting into sinus rhythm. 09/16/2017: Lying in bed awake intubated participating in a spontaneous breathing trial in an attempt for extubation. Weaning trial attempted yesterday without success. Surgical intervention planned for next week for the mitral valve. Remains in the ICU on propofol, amiodarone drip, Cardizem drip, metoprolol, and heparin drip. Patient does have bursts of atrial fibrillation and RVR as well as alternating with bradycardia with converting into sinus rhythm. Nutritional support in the form of enteral feedings, currently on bed rest due to intubation , last BM not documented in the patient chart 09/15/2017: Lying in bed awake intubated, status post catheterization in which his LAD has a stent that is patent, circumflex is free of significant stenosis of right coronary artery is dominant vessel and free of stenosis. Has 3+ mitral regurgitation, await input from cardiothoracic surgery regarding repair/replace mitral valve. Remains in the ICU on propofol, amiodarone drip, Cardizem drip, may extubate patient later today if there is no immediate surgical intervention for the mitral valve. REVIEW OF SYSTEMS: Unable to assess due to patient's current condition. CURRENT MEDICATIONS Acetaminophen, DuoNeb, amiodarone drip, aspirin, Dulcolax, Peridex, diltiazem drip, Prozac, Lasix IV, heparin drip, Synthroid, Lopressor, nicotine patch, Levophed, Protonix, Zosyn, senna, normal saline. Propofol PHYSICAL EXAM VITAL SIGNS: Temperature 99.2, pulse 90, respiratory rate 17, blood pressure 106/60, oxygen saturation 98% on the chemical ventilation at FiO2 of 50%. GENERAL APPEARANCE: Lying in bed on mechanical ventilation when sedation lifted patient is arousable to open eyes and follow simple commands. HENT: Normocephalic, JVD not raised. Mass not palpable. Oral cavity poor dentition dry mucous membranes, ET tube and OG tube in place, external appearance of ears and nose normal, EYES:Pupils equal. Conjunctiva normal. RESPIRATORY: Respiratory effort normal is intubated sedated and placed on mechanical ventilation. Lungs decreased bilaterally to auscultation. CARDIOVASCULAR: Irregular rhythm No edema. ABDOMEN: Soft. Liver and spleen not palpable. No tenderness. No mass palpable. GENITOURINARY: Beaulieu catheter in place with clear yellow urine. PSYCHIATRY: Alert and oriented x3. Mood and affect normal. EXTREMITIES: Infection of the left big toe INTEGUMENT: Right great toe dressing intact no drainage noted INVESTIGATIONS: LABS: White blood cell count 12.2, hemoglobin 9.8, sodium 134, carbon dioxide 18 , BUN 23, creatinine 1.80, ALTs 89 Cultures pending AB.47/26/292/19/-4.8. Chest x-ray: Significant improvement in previous bilateral airspace disease. Suggestive of improving pulmonary edema. Satisfactory ET tube placement and NG tube sideholes level of the GE junction. ASSESSMENT: -Recurrent episodes of hypoxic respiratory failure requiring intubation mechanical ventilation secondary to mitral valve disease and development of flash pulmonary edema intermittently. -Severe mitral regurgitation nonrheumatic as per transesophageal echocardiogram , mitral valve scheduled for September 25. -Persistent atrial fibrillation, uncontrolled patient is on a heparin drip.Amiodarone and Cardizem -chronic obstructive pulmonary disease exacerbation in a current smoker. -Acute kidney injury secondary to contrast nephropathy, nonoliguric. -Acute right great toe cellulitis and wound secondary to trauma with possible dry gangrene, expected to auto amputate, having failed outpatient treatment. -Acute hypoxic respiratory failure secondary to sepsis currently on nasal cannula. -Bilateral pneumonia, suspect gram-negative organism, possibly causing sepsis resolved -Acute pulmonary edema, from underlying severe mitral regurgitation.. -Acute metabolic acidosis, compensatory -Acute shock liver, biochemical improvement, from hypotension. -Chronic kidney disease stage III from nephrosclerosis with a baseline creatinine of 1.3. -Chronic nicotine dependence in a cigarette smoker. -Coronary artery disease, prior history of stent. -Hypothyroidism. -Essential hypertension, history. -Hyperlipidemia. -Peripheral artery disease. -Depression, anxiety, not otherwise specified. -Status post cardiac catheterization with patent stent to the LAD, circumflex free of significant stenosis right coronary artery is free of stenosis. -bilateral internal carotid stenosis greater than 70 % on the right side 50-60% on the left side, not for any further intervention. PLAN: Patient remains on IV amiodarone and Cardizem, IV heparin. Mitral valve surgery to be done September 25. Cardiology will continue with current medication management. Dry gangrene of the left big toe and second toe will be managed by vascular surgery at a later date and time once patient's cardiac status is stabilized. Plan of care discussed at the bedside we will follow closely. MEDICAL CLAIMS MANAGER statement: Patient was seen and examined by nurse practitioner Xiao Glass and all elements of the case discussed with attending Dr. Alston
--- NOTE | 2017-09-22 16:46 | OP ---
OPERATIVE REPORT OPERATION: Placement of a right radial arterial line. PREOPERATIVE DIAGNOSIS: Acute hypoxic respiratory failure secondary to acute pulmonary edema. POSTOPERATIVE DIAGNOSIS: Acute hypoxic respiratory failure secondary to acute pulmonary edema. ANESTHESIA USED: None deployed. PROCEDURE: The right wrist was prepared in a sterile fashion and drapes were applied. The right radial artery was palpated, cannulated, and a guidewire was placed. A radial Cook's catheter was inserted over the guidewire, and the guidewire was removed. The line was secured using 3.0 silk sutures. No evidence of any complications. MMODL / IJN: [id number] /
--- NOTE | 2017-09-22 19:58 | PN ---
PROGRESS NOTE DATE OF SERVICE: 09/22/2017 REASON FOR FOLLOWUP: 1. New fever. 2. Left foot wound and cellulitis. INTERVAL HISTORY: The patient went into flash pulmonary edema last night. He ended up getting intubated and transferred back to the ICU. He did spike a fever of 101.2 this morning with a repeat of 101.6 at 8 in the morning. The patient did have blood, sputum and urine cultures sent and was started on the Zosyn. The patient did require a low dose of pressor support in the form of Levophed at at 5 mcg. The patient seems to be slowly waking up and did follow some simple commands. PHYSICAL EXAMINATION: His blood pressure is 100/59 with a pulse of 96, temperature of 98. T-max 101.6. He is 100% on 50% FiO2. General description is a middle-aged male lying in bed in no distress. RESPIRATORY SYSTEM: Unlabored breathing. Some coarse breath sounds in the bases. No wheeze. HEART: S1, S2. rhythm. ABDOMEN: Soft. No tenderness. EXTREMITIES: Left foot is currently dressed up. No obvious drainage on the dressing. LABS: BUN of 23, creatinine 1.80, hemoglobin 9.9, white count 12.2. DIAGNOSTIC IMPRESSION AND PLAN: 1. Patient with sepsis in a patient who did have a fever. He did have elevated white count with acute vent-dependent respiratory failure; could have been more likely from his underlying mitral regurgitation and acute heart failure. Underlying pneumonia not entirely excluded. The patient did have blood in his sputum as well. Urine culture was obtained and is going to be followed. Continue the patient on Zosyn. 2. Left foot cellulitis, adequately treated. Currently the toe looks dry without any fluctuation or induration. Continue to treat it with Aquacel Silver dressing. MMODL / IJN: [id number] /
[2017-09-22] MEDS: BISACODYL 10 MG SUPP RECTAL SCH (21:23)
--- NOTE | 2017-09-22 21:52 | PN ---
PROGRESS NOTE DATE OF SERVICE: 09/22/2017 ATTENDING NOTE: The patient seen and examined by me. I discussed with my nurse practitioner, Jessijung. This is a patient who went back into what appears to be maybe flash pulmonary edema, but back on the ventilator. Also had atrial fibrillation with rapid ventricular rate and also has been having pauses. The patient remains on IV amiodarone, Cardizem drip and IV heparin and propofol. I spoke to Dr. Huddleston, whose plan is to take the patient down for mitral valve replacement. I also spoke to Dr. Rose. He thinks that surgery and possible atrial surgery, patient's bradycardia may resolve. EXAMINATION: LUNGS: Decreased breath sounds. CARDIOVASCULAR: Heart sounds irregular. Awake, following commands, intubated. MMODL / IJN: [id number] /
[2017-09-23] MEDS: NOREPINEPHRIN 4 MG-0.9% NS PMX 4 MG/250 ML ML IV SCH (01:56)
[2017-09-23 05:01] LABS: Anisocytosis Slight; Basophils # (A) 0.1 k/uL (0-0.2); Basophils % (A) 1 %; Eosinophils # (A) 0.7 k/uL (0-0.7); Eosinophils % (A) 10 %; HCT 30.4 % (39.0-53.0); HGB 9.3 gm/dL (13.0-17.5); Hypochromasia Slight; Lymphocytes # (A) 1.1 k/uL (1.0-4.8); Lymphocytes % (A) 15 %; MCH 27.6 pg (25.0-35.0); MCHC 30.5 g/dL (31.0-37.0); MCV 90.5 fL (80.0-100.0); Mean Platelet Volume 8.1; Monocytes # (A) 0.2 k/uL (0-1.0); Monocytes % (A) 3 %; Neutrophils % (A) 69 %; Platelet Count 292 k/uL (150-450); RBC 3.35 m/uL (4.30-5.90); RDW 16.3 % (11.5-15.5); WBC 7.3 k/uL (3.8-10.6)
[2017-09-23 05:28] LABS: Albumin 2.8 g/dL (3.5-5.0); Calcium 8.7 mg/dL (8.4-10.2); Phosphorus 4.9 mg/dL (2.5-4.5); Potassium 3.4 mmol/L (3.5-5.1); Total Bilirubin 0.6 mg/dL (0.2-1.3); Total Protein 5.8 g/dL (6.3-8.2)
[2017-09-23 05:48] LABS: C Reactive Protein 199.8 mg/L (<10.0)
[2017-09-23] MEDS: PROPOFOL 1,000 MG in EMPTY BAG 1 BAG IV SCH ×4 (05:57→23:22)
--- NOTE | 2017-09-23 06:31 | XR ---
EXAMINATION TYPE: XR chest 1V portable DATE OF EXAM: 09/23/2017 HISTORY: Tube placement. REFERENCE: Previous study dated 09/22/2017. FINDINGS: The patient is ET tube and NG tube remain in place, unchanged in appearance. Heart size is normal. There is increased opacity in the lung bases. This may be due to small effusion s. The lungs appear clear. IMPRESSION: I CANNOT EXCLUDE SMALL, BILATERAL EFFUSIONS.
[2017-09-23 07:34] LABS: ABG Base Excess -1.9 mmol/L; ABG HCO3 22 mmol/L (21-25); ABG Oxygen Saturation 99.1 % (94-97); ABG PCO2 32 mmHg (35-45); ABG PH 7.45 (7.35-7.45); ABG PO2 119 mmHg (83-108); ABG TCO2 23 mmol/L (19-24)
[2017-09-23] MEDS: PANTOPRAZOLE 40 MG TABLET PO SCH (07:43)
[2017-09-23] MEDS: LEVOTHYROXINE 25 MCG TAB PO SCH (07:43)
[2017-09-23] MEDS: POTASSIUM CHLORIDE ORAL LIQUID 40 MEQ/30 ML CUP NG-TUBE SCH ×2 (07:44→10:53)
[2017-09-23] MEDS: AMIODARONE 450 MG in DEXTROSE 5% IN WATER 250 ML IV SCH ×4 (07:44→23:22)
[2017-09-23] MEDS: FLUoxetine HCL 20 MG CAP PO SCH (08:10)
[2017-09-23] MEDS: CHLORHEXIDINE GLUCONATE 15 ML CUP MUCOUS MEM SCH ×2 (08:10→21:42)
[2017-09-23] MEDS: FUROSEMIDE 10 MG/ML 4 ML VIAL IV SCH ×2 (08:11→21:42)
[2017-09-23] MEDS: SENNOSIDES 8.6 MG TAB PO SCH (08:11)
[2017-09-23] MEDS: MUPIROCIN 2% OINT 22 GM TUBE TOPICAL SCH ×2 (08:11→21:42)
[2017-09-23] MEDS: NICOTINE 21MG/24HR PATCH TRANSDERM SCH (08:11)
[2017-09-23] MEDS: ASPIRIN 81 MG PO SCH (08:11)
[2017-09-23] MEDS: IPRATROPIUM-ALBUTEROL 3 ML NEB INHALATION SCH ×3 (09:02→19:14)
[2017-09-23] MEDS: PIPERACILLIN-TAZOBACTAM 3.375 GM in DEXTROSE/WATER 1 50ML.BAG IVPB SCH ×2 (09:09→21:43)
--- NOTE | 2017-09-23 10:37 | P.PN ---
Subjective Progress Note Date: 09/23/17 Principal diagnosis: Severe mitral valve regurgitation. Previous history of chronic persistent atrial fibrillation on Eliquis for anticoagulation, depression, peripheral artery disease, chronic nicotine dependence, chronic kidney disease stage III, hypertension, coronary artery disease with previous stent placement, GERD, and hypothyroidism. This 62-year-old gentleman presented to [facility] on 09/05/2017 with complaints of left foot pain and swelling, mainly to his left great toe after previous trauma. He was admitted for further treatment and evaluation. Subsequently he became unresponsive, bradycardic, and hypotensive. He was quickly intubated and taken to the intensive care unit for hemodynamic monitoring. He developed a lactic acidosis. In addition he developed atrial fibrillation. He was extubated, placed on BiPAP, and subsequently reintubated a few days later. A 2-D echocardiogram was completed which demonstrated normal left ventricular function with an ejection fraction between 55-60%, moderate aortic insufficiency, severe mitral regurgitation, mild tricuspid regurgitation. He then had a bedside transesophageal echocardiogram which demonstrated severe mitral valve regurgitation with a flail anterior leaflet, mild aortic insufficiency and severely impaired left ventricular function with an ejection fraction of 30-35%. Left heart catheterization was performed yesterday with no significant coronary stenosis. Cardiothoracic surgery was consulted for surgical repair of the patient's mitral valve. Status post cardiac catheterization on 09/25/2017 demonstrating a patent LAD stent and no significant coronary stenosis. Status post neck CTA demonstrating severe right internal carotid artery estimated at greater than 70%, moderate to severe narrowing of the proximal left internal carotid artery between 50-69%. Status post angiogram, no stent placement to the carotid arteries, right carotid approximately 70% stenosis, left carotid approximately 50% stenosis per angiogram. Status post cardiac arrest, reintubation for flash pulmonary edema. Patient's currently lying in bed in no acute distress. Currently sedated on mechanical ventilation. Does open eyes and follows commands. Objective - Vital Signs Vital signs: Vital Signs Temp 99.3 F 09/23/17 08:00 Pulse 90 09/23/17 10:00 Resp 18 09/23/17 10:00 BP 95/62 09/22/17 17:00 Pulse Ox 100 09/23/17 10:00 Intake & Output 09/22/17 09/23/17 09/23/17 18:59 06:59 18:59 Intake Total 580.017 8698.163 618.233 Output Total 4025 2035 552 Balance -5731.625 -877.837 66.233 Weight 76.2 kg 73.4 kg Intake: IV 240 467.1 192.4 Amiodarone 450 mg In 177.1 16.7 Dextrose 5% in Water 250 ml @ 0.5 MG/MIN 16.66 mls /hr IV .Q15H1M AJ Rx#: [id number] Amiodarone 450 mg In 16.1 Dextrose 5% in Water 250 ml @ 0.5 MG/MIN 16.66 mls /hr IV .Q15[facility] Rx#: [id number] Heparin Sod,Pork in 0.45% 54.6 NaCl 25,000 unit In 0.45 % NaCl 1 500ml.bag @ 12 UNITS/KG/HR 18.74 mls/hr IV .Q24H AJ Rx#: [id number] Piperacillin-Tazobactam 3 50.0 25.0 .375 gm In Dextrose/Water 1 50ml.bag @ 12.5 mls/hr IVPB Q12HR AJ Rx#: [id number] Sodium Chloride 0.9% 1, 240 240 80 000 ml @ 20 mls/hr IV . Q24H AJ Rx#:[id number] Intake, IV Titration 513.375 690.063 325.833 Amount Amiodarone 450 mg In 250 Dextrose 5% in Water 250 ml @ 0.5 MG/MIN 16.66 mls /hr IV .Q15[facility] Rx#: [id number] Heparin Sod,Pork in 0.45% 500 NaCl 25,000 unit In 0.45 % NaCl 1 500ml.bag @ 12 UNITS/KG/HR 18.74 mls/hr IV .Q24H AJ Rx#: [id number] Magnesium Sulfate-D5w Pmx 300 1 gm In Dextrose/Water 1 100ml.bag @ 100 mls/hr IVPB Q1H AJ Rx#: [id number] Norepinephrin 4 mg-0.9% 18.375 35.063 Ns Pmx 4 mg In 250 ml @ Titrate IV .Q0M [facility] Rx#: [id number] Piperacillin-Tazobactam 3 50 .375 gm In Dextrose/Water 1 50ml.bag @ 12.5 mls/hr IVPB Q12HR AJ Rx#: [id number] Propofol 1,000 mg In 145 155.0 75.833 Empty Bag 1 bag @ Titrate IV .Q0M [facility] Rx#: [id number] Tube Feeding 100 Output: Urine 4025 6116 552 Other: Voiding Method Indwelling Catheter Indwelling Catheter Indwelling Catheter ABP, PAP, CO, CI - Last Documented Arterial Blood Pressure 104/47 - Constitutional General appearance: Present: cooperative, no acute distress - Respiratory Details: Lungs sounds diminished bilaterally with coarse breath sounds in the bases. Respirations even, nonlabored on mechanical ventilation. Current settings assist control mode, FiO2 45%, tidal volume 500, respiratory rate 14, PEEP 5. 7.5 ET tube present, 23 of the lip. - Cardiovascular Details: S1, S2 present. Irregular rate and rhythm, atrial fibrillation on telemetry. Palpable peripheral pulses bilaterally. No edema present. Right radial arterial line present. Currently on IV amiodarone and IV heparin. - Gastrointestinal Gastrointestinal Comment(s): Abdomen soft, nontender, nondistended. Active bowel sounds 4 quadrants. OG tube present, tube feeding infusing at 20 mL/h. - Genitourinary Genitourinary Comment(s): Beaulieu present draining clear, yellow urine. Output 50-200 mL/h overnight. - Integumentary Integumentary Comment(s): Skin is warm and dry. - Neurologic Neurologic Comment(s): Opens eyes and does follow all commands. - Psychiatric Psychiatric Comment(s): Currently on propofol for sedation - Allied health notes Allied health notes reviewed: nursing - Labs CBC & Chem 7: 09/23/17 04:25 09/23/17 04:25 Labs: Abnormal Lab Results - Last 24 Hours (Table) 09/23/17 09/23/17 09/23/17 Range/Units 04:25 04:25 04:25 RBC 3.35 L (4.30-5.90) m/uL Hgb 9.3 L (13.0-17.5) gm/dL Hct 30.4 L (39.0-53.0) % MCHC 30.5 L (31.0-37.0) g/dL RDW 16.3 H (11.5-15.5) % APTT 64.7 H (22.0-30.0) sec ABG pCO2 (35-45) mmHg ABG pO2 (83-108) mmHg ABG O2 Saturation (94-97) % Potassium 3.4 L (3.5-5.1) mmol/L BUN 23 H (9-20) mg/dL Creatinine 1.70 H (0.66-1.25) mg/dL Phosphorus 4.9 H (2.5-4.5) mg/dL ALT 73 H (21-72) U/L C-Reactive Protein 199.8 H (<10.0) mg/L Total Protein 5.8 L (6.3-8.2) g/dL Albumin 2.8 L (3.5-5.0) g/dL 09/23/17 Range/Units 07:25 RBC (4.30-5.90) m/uL Hgb (13.0-17.5) gm/dL Hct (39.0-53.0) % MCHC (31.0-37.0) g/dL RDW (11.5-15.5) % APTT (22.0-30.0) sec ABG pCO2 32 L (35-45) mmHg ABG pO2 119 H (83-108) mmHg ABG O2 Saturation 99.1 H (94-97) % Potassium (3.5-5.1) mmol/L BUN (9-20) mg/dL Creatinine (0.66-1.25) mg/dL Phosphorus (2.5-4.5) mg/dL ALT (21-72) U/L C-Reactive Protein (<10.0) mg/L Total Protein (6.3-8.2) g/dL Albumin (3.5-5.0) g/dL Microbiology - Last 24 Hours (Table) 09/22/17 06:59 Blood Culture - Preliminary Blood No Growth after 24 hours 09/22/17 09:10 Gram Stain - Preliminary Sputum Sputum Culture - Preliminary 09/22/17 06:40 Urine Culture - Preliminary Urine,Catheterized - Imaging and Cardiology Chest x-ray: report reviewed, image reviewed Assessment and Plan (1) Acute and chronic respiratory failure with hypoxia Current Visit: Yes Status: Acute Code(s): J96.21 - ACUTE AND CHRONIC RESPIRATORY FAILURE WITH HYPOXIA SNOMED Code(s): 47045869 (2) COPD (chronic obstructive pulmonary disease) Current Visit: Yes Status: Chronic Code(s): J44.9 - CHRONIC OBSTRUCTIVE PULMONARY DISEASE, UNSPECIFIED SNOMED Code(s): 54937914 (3) Chronic kidney disease, stage III (moderate) Current Visit: Yes Status: Chronic Code(s): N18.3 - CHRONIC KIDNEY DISEASE, STAGE 3 (MODERATE) SNOMED Code(s): 279801435 (4) Gangrenous toe Current Visit: Yes Status: Chronic Code(s): I96 - GANGRENE, NOT ELSEWHERE CLASSIFIED SNOMED Code(s): 909289742 (5) History of bradycardia Current Visit: No Status: Resolved Code(s): Z86.79 - PERSONAL HISTORY OF OTHER DISEASES OF THE CIRCULATORY SYSTEM SNOMED Code(s): 858203183310925 (6) History of coronary artery disease Current Visit: No Status: Resolved Code(s): Z86.79 - PERSONAL HISTORY OF OTHER DISEASES OF THE CIRCULATORY SYSTEM SNOMED Code(s): 591677953 (7) History of depression Current Visit: Yes Status: Chronic Code(s): Z86.59 - PERSONAL HISTORY OF OTHER MENTAL AND BEHAVIORAL DISORDERS SNOMED Code(s): 146432834 (8) Hypertension Current Visit: Yes Status: Chronic Code(s): I10 - ESSENTIAL (PRIMARY) HYPERTENSION SNOMED Code(s): 91934322 (9) Hypothyroidism Current Visit: Yes Status: Chronic Code(s): E03.9 - HYPOTHYROIDISM, UNSPECIFIED SNOMED Code(s): 46086666 (10) Peripheral vascular disease Current Visit: Yes Status: Chronic Code(s): I73.9 - PERIPHERAL VASCULAR DISEASE, UNSPECIFIED SNOMED Code(s): 644115438 (11) New onset a-fib Current Visit: Yes Status: Acute Code(s): I48.91 - UNSPECIFIED ATRIAL FIBRILLATION SNOMED Code(s): 19110173 (12) Carotid artery stenosis Current Visit: Yes Status: Chronic Code(s): I65.29 - OCCLUSION AND STENOSIS OF UNSPECIFIED CAROTID ARTERY SNOMED Code(s): 75806954 (13) Mitral valve regurgitation Current Visit: Yes Status: Chronic Code(s): I34.0 - NONRHEUMATIC MITRAL ( VALVE) INSUFFICIENCY SNOMED Code(s): 58632313 Plan: 1. Plan is for mitral valve repair versus replacement on September 25. 2. Wean from mechanical ventilation as tolerated. Aggressive pulmonary hygiene once extubated. Ventilator management per pulmonology. 3. Continue heparin drip, amiodarone drip, aspirin, per cardiology management. Beta skylar being held secondary to hypotension, patient was on levofed which has been on hold since 0600. 4. Bronchodilators, antibiotics per pulmonology. 5. Avoid nephrotoxic agents. 6. GI/DVT prophylaxis. 7. Patient has received dental clearance for valve surgery. 8. More recommendations to follow Time with Patient: Greater than 30
[2017-09-23] MEDS: METOPROLOL TARTRATE 5 MG/5 ML VIAL IVP SCH (11:36)
[2017-09-23] MEDS: SODIUM CHLORIDE 0.9% 1,000 ML IV SCH (11:36)
--- NOTE | 2017-09-23 12:37 | P.PN ---
Subjective Progress Note Date: 09/23/17 Principal diagnosis: Severe mitral valve regurgitation, recurrent episodes of flash pulmonary edema and respiratory failure requiring intubation and mechanical ventilation. This is a very pleasant 62-year-old gentleman who was found to have severe mitral valve stenosis. He had developed acute respiratory failure requiring intubation mechanical ventilatory support. He has been successfully extubated. He is seen again today in follow-up in the intensive care unit. He is awake and alert in no acute distress. The plan is for a right carotid stent tomorrow for greater than 70% stenosis. The patient will need to be on Plavix for 2 weeks and high-dose aspirin. The plan will be for possible mitral valve repair/ replacement following that time. In the interim he remains on a heparin drip for his atrial fibrillation. He remains on a Cardizem drip at 10 mg per hour. Amiodarone drip at 0.5 mg/m. Still having issues with tachycardia in regards to the atrial fibrillation. He is requiring 4 L nasal cannula to maintain O2 saturations in the 90s. Yesterday's chest x-ray revealed some persistent mild central vascular congestion with a new small right pleural effusion. There is cardiomegaly. Blood, sputum and urine cultures reveal no growth. No leukocytosis. Hemoglobin 9.9. Creatinine 1.40. He did have issues with diarrhea. C. difficile screen was negative. Patient was reevaluated today on 09/21/2017, patient is comfortable, in no distress, no shortness of breath no cough no wheezing, patient is scheduled to have carotid artery stenting today. This will be done by Dr. Walker. Continues to have intermittent episodes of tachyarrhythmias with intermittent episodes of sinus bradycardia and atrial fibrillation. Blood pressure is also fluctuating up and down intermittently. No chest x-ray was done today, all his labs were reviewed, creatinine is 1.30 today. Otherwise the labs are unremarkable. Patient was reevaluated today on 09/22/2017, patient was transferred out of the ICU yesterday to a monitor bed on , however early evening hours, patient developed an acute episode of bradycardia, cardiac arrest, required CPR. Reintubation and placement on mechanical ventilation. The chest x-ray showed again flash pulmonary edema. Patient was diuresed overnight, he was kept on mechanical ventilation, and his chest x-ray is showing significant improvement compared to yesterday's x-ray just after the code. Patient is arousable, follows simple instructions, no evidence of acute brain injury noted. Patient was seen by cardiology and he was seen by cardiothoracic surgery , and I believe at this point he is scheduled to have mitral valve replacement on Monday. In the meantime I plan to keep the patient on mechanical ventilation , and we'll continue to diurese him. We'll monitor his renal status closely, it will likely improve. Patient may have developed a slight kidney injury secondary to acute tumor necrosis. ABG this morning showed a pO2 of 292 pCO2 of 26 pH of 7.47, WBC count is 12.2 hemoglobin is 9.8. Basic metabolic profile is normal except for BUN 23 creatinine 1.80, and it was 1.60 yesterday. Reevaluated today on 09/23/2017, patient remains on mechanical ventilation, his ventilator settings are basically the same, cut down his FiO2 to 45%, patient is arousable, follows simple instructions, chest x-ray is showing mild pulmonary edema, much improved compared to the initial chest x-ray at the time of his intubation. Patient is receiving nutritional support, via nasogastric tube. ABG today showed a pO2 of 119 pCO2 of 32 pH of 7.45. CBC is relatively normal hemoglobin however is 9.3. Potassium is low at 3.4 being corrected. Renal profile is slightly better, BUN is 23 creatinine is 1.70. Objective - Vital Signs Vital signs: Vital Signs Temp 100.3 F H 09/23/17 12:00 Pulse 77 09/23/17 12:00 Resp 16 09/23/17 12:00 BP 95/62 09/22/17 17:00 Pulse Ox 98 09/23/17 12:00 Intake & Output 09/22/17 09/23/17 09/23/17 18:59 06:59 18:59 Intake Total 412.428 9021.163 809.633 Output Total 4025 2035 1202 Balance -3271.625 -877.837 -392.367 Weight 76.2 kg 73.4 kg Intake: IV 240 467.1 293.8 Amiodarone 450 mg In 177.1 16.7 Dextrose 5% in Water 250 ml @ 0.5 MG/MIN 16.66 mls /hr IV .Q15H1M [facility] Rx#: [id number] Amiodarone 450 mg In 16.1 Dextrose 5% in Water 250 ml @ 0.5 MG/MIN 16.66 mls /hr IV .Q15H1M AJ Rx#: [id number] Heparin Sod,Pork in 0.45% 91.0 NaCl 25,000 unit In 0.45 % NaCl 1 500ml.bag @ 12 UNITS/KG/HR 18.74 mls/hr IV .Q24H AJ Rx#: [id number] Piperacillin-Tazobactam 3 50.0 50.0 .375 gm In Dextrose/Water 1 50ml.bag @ 12.5 mls/hr IVPB Q12HR AJ Rx#: [id number] Sodium Chloride 0.9% 1, 240 240 120 000 ml @ 20 mls/hr IV . Q24H [facility] Rx#:[id number] Intake, IV Titration 513.375 690.063 325.833 Amount Amiodarone 450 mg In 250 Dextrose 5% in Water 250 ml @ 0.5 MG/MIN 16.66 mls /hr IV .Q15H1M [facility] Rx#: [id number] Heparin Sod,Pork in 0.45% 500 NaCl 25,000 unit In 0.45 % NaCl 1 500ml.bag @ 12 UNITS/KG/HR 18.74 mls/hr IV .Q24H [facility] Rx#: [id number] Magnesium Sulfate-D5w Pmx 300 1 gm In Dextrose/Water 1 100ml.bag @ 100 mls/hr IVPB Q1H AJ Rx#: [id number] Norepinephrin 4 mg-0.9% 18.375 35.063 Ns Pmx 4 mg In 250 ml @ Titrate IV .Q0M [facility] Rx#: [id number] Piperacillin-Tazobactam 3 50 .375 gm In Dextrose/Water 1 50ml.bag @ 12.5 mls/hr IVPB Q12HR AJ Rx#: [id number] Propofol 1,000 mg In 145 155.0 75.833 Empty Bag 1 bag @ Titrate IV .Q0M [facility] Rx#: [id number] Tube Feeding 160 Other 30 Output: Urine 4025 2035 1202 Other: Voiding Method Indwelling Catheter Indwelling Catheter Indwelling Catheter ABP, PAP, CO, CI - Last Documented Arterial Blood Pressure 104/57 - Exam GENERAL EXAM: Revealed a 62-year-old -Vin[place] male, on mechanical ventilation, arousable, follows simple instructions. HEAD: Normocephalic. EYES: Normal reaction of pupils, equal size. NOSE: Clear with pink turbinates. THROAT: No erythema or exudates. Endotracheal tube seems to be intact. Orogastric tube is also intact. NECK: No masses, no JVD. CHEST: No chest wall deformity. LUNGS: Minimal fine crackles at the bases, no rhonchi no wheezes. CVS: S1 and S2 normal, 2/6 systolic murmur throughout the precordium., irregular rhythm. Tachycardic. ABDOMEN: No hepatosplenomegaly, normal bowel sounds, no guarding or rigidity. SPINE: No scoliosis or deformity SKIN: No rashes CENTRAL NERVOUS SYSTEM: No focal deficits, tone is normal in all 4 extremities. EXTREMITIES: There is no peripheral edema. No clubbing, no cyanosis. Peripheral pulses are intact. - Labs CBC & Chem 7: 09/23/17 04:25 09/23/17 04:25 Labs: Abnormal Lab Results - Last 24 Hours (Table) 09/23/17 09/23/17 09/23/17 Range/Units 04:25 04:25 04:25 RBC 3.35 L (4.30-5.90) m/uL Hgb 9.3 L (13.0-17.5) gm/dL Hct 30.4 L (39.0-53.0) % MCHC 30.5 L (31.0-37.0) g/dL RDW 16.3 H (11.5-15.5) % APTT 64.7 H (22.0-30.0) sec ABG pCO2 (35-45) mmHg ABG pO2 (83-108) mmHg ABG O2 Saturation (94-97) % Potassium 3.4 L (3.5-5.1) mmol/L BUN 23 H (9-20) mg/dL Creatinine 1.70 H (0.66-1.25) mg/dL Phosphorus 4.9 H (2.5-4.5) mg/dL ALT 73 H (21-72) U/L C-Reactive Protein 199.8 H (<10.0) mg/L Total Protein 5.8 L (6.3-8.2) g/dL Albumin 2.8 L (3.5-5.0) g/dL 09/23/17 Range/Units 07:25 RBC (4.30-5.90) m/uL Hgb (13.0-17.5) gm/dL Hct (39.0-53.0) % MCHC (31.0-37.0) g/dL RDW (11.5-15.5) % APTT (22.0-30.0) sec ABG pCO2 32 L (35-45) mmHg ABG pO2 119 H (83-108) mmHg ABG O2 Saturation 99.1 H (94-97) % Potassium (3.5-5.1) mmol/L BUN (9-20) mg/dL Creatinine (0.66-1.25) mg/dL Phosphorus (2.5-4.5) mg/dL ALT (21-72) U/L C-Reactive Protein (<10.0) mg/L Total Protein (6.3-8.2) g/dL Albumin (3.5-5.0) g/dL Microbiology - Last 24 Hours (Table) 09/22/17 06:59 Blood Culture - Preliminary Blood No Growth after 24 hours 09/22/17 09:10 Gram Stain - Preliminary Sputum Sputum Culture - Preliminary 09/22/17 06:40 Urine Culture - Preliminary Urine,Catheterized Assessment and Plan Assessment: Recurrent episodes of hypoxic respiratory failure requiring intubation and mechanical ventilation, mostly secondary to mitral valve disease, and the patient is developing flash pulmonary edema is intermittently. Considering the significant improvement of the chest x-ray after diuresis, this is clearly a cardiogenic pulmonary edema, not ARDS, and not pneumonia. Atrial fibrillation/RVR, presently controlled with amiodarone, Recurrent systolic Congestive heart failure, secondary to severe mitral regurgitation and cardiomyopathy with an ejection fraction of 25% Intermittent sinus bradycardia History of CAD with previous stent placement History of COPD History of essential hypertension History of depression Peripheral vascular occlusive disease Hypothyroidism Hypertensive nephrosclerosis with chronic kidney disease, stage III Acute cellulitis and dry gangrene of the left big toe, status post debridement Bilateral carotid disease, worse on the right with a greater than 70% obstruction, angiogram showed the obstruction was nonsignificant. Recommendation: Continue present supportive care measures, continue mechanical ventilation, nutritional support, mitral valve replacement surgery is tentatively scheduled for next Monday. We'll continue to follow. Critical care time is 35 minutes. Time with Patient: Greater than 30
[2017-09-23] MEDS ORDERED: METOPROLOL TARTRATE 5 MG/5 ML VIAL IVP PRN (13:18)
--- NOTE | 2017-09-23 15:05 | PN ---
PROGRESS NOTE This gentleman is in atrial fibrillation, controlled rate. He is not on Cardizem drip; only on amiodarone. This gentleman is intubated, has had several episodes of flash pulmonary edema. He has a patent stent in LAD without significant other CAD. He has severe mitral regurgitation and is going for a mitral valve repair or replacement on Monday. Remains hemodynamically stable, is making urine. On a ventilator, in atrial fibrillation. Rate is controlled. S1 and S2 heard normally. Holosystolic murmur is audible at the apex. Lungs revealed fine rales over both bases. Abdomen and lower extremity exam unchanged. Plan is to continue current medications, including amiodarone, diuresis and proceed with mitral valve repair or replacement that is scheduled for Monday. MMODL / IJN: [id number] /
--- NOTE | 2017-09-23 17:41 | PN ---
PROGRESS NOTE DATE OF SERVICE: 09/23/2017 REASON FOR FOLLOWUP: 1. Patient with new fever. 2. Left foot wound and cellulitis. INTERVAL HISTORY: The patient did have a low-grade fever of 100.3 this afternoon; however, the patient has been afebrile afterwards. He is hemodynamically stable, not on any pressor support. He remains on the vent. He is awake and alert, follows commands. PHYSICAL EXAMINATION: Blood pressure 126/82 with a pulse of 92, temperature of 98. He is 100% on 45% FiO2. General description is a middle-aged male lying in bed in no distress. RESPIRATORY SYSTEM: Unlabored breathing. Some coarse breath sounds in the bases. No wheeze. HEART: S1, S2. Regular rate and rhythm. ABDOMEN: Soft. No tenderness. LABS: Hemoglobin 9.3, white count 7.3, BUN of 23, creatinine 1.70. The sputum culture is showing a Gram-negative. Urine now showing a Gram-negative. DIAGNOSTIC IMPRESSION AND PLAN: 1. Patient with a new fever with the source questionably urinary tract infection with a component of both sputum and the urine showing Gram-negative he will be continued on the Zosyn while waiting for the final ID of this pathogen. 2. Patient with left first and second toe wound and cellulitis. Local wound care with Aquacel Silver. Continue with supportive care. MMODL / IJN: [id number] /
--- NOTE | 2017-09-23 18:08 | PN ---
PROGRESS NOTE Patient is seen for followup for acute kidney injury secondary to contrast nephropathy. The patient is currently on the vent for recurrent pulmonary edema. His blood pressure is better with systolic most recently at 126/82. He is currently off of Levophed. The patient remains on the vent, but he has been awake. EXAMINATION: Blood pressure 126/82, heart rate 105 per minute. He did have a temp of 100.1. Examination of the heart S1, S2. Examination of the lungs bilateral breath sounds are heard. Abdomen is soft, nontender. Examination of the lower extremities shows no edema. Left 1st and 2nd toes are wrapped. The patient has been moving all 4 extremities. LAB: Show sodium 138, potassium 3.4, chloride 105, BUN 23, serum creatinine 1.7, hemoglobin of 9.3 g/dL. ASSESSMENT: 1. Acute kidney injury secondary to contrast nephropathy, currently nonoliguric with some improvement. Continue to monitor renal function and continue to avoid nephrotoxic agents. 2. Vent dependent respiratory failure secondary to recurrent pulmonary edema. 3. Severe mitral valve disease with regurgitation, scheduled for mitral valve surgery on Monday. 4. Carotid artery stenosis with no plans for carotid endarterectomy and other medical management recommended at this time. 5. Hypokalemia, status post replacement. 6. Fever, being followed by ID with evidence of dry gangrene on the 1st and 2nd toes. Sputum culture is growing gram-negative bacilli and urine culture is also growing gram-negative bacilli. The patient is currently on Zosyn. 7. Atrial fibrillation with RVR maintained on amiodarone drip. PLAN: Avoid nephrotoxic agents. Continue with current dose of Lasix. Repeat labs in a.m. MMODL / IJN: [id number] /
[2017-09-23] MEDS: BISACODYL 10 MG SUPP RECTAL SCH (21:42)
--- NOTE | 2017-09-23 23:44 | PN ---
PROGRESS NOTE DATE OF SERVICE: 09/23/2017 The patient remains in ICU. He is status post mitral valve regurgitation with flash pulmonary edema and respiratory failure requiring mechanical ventilation. Patient remains on the ventilator in the ICU. VITAL SIGNS: Temperature of 100.3, pulse 77, respirations 16, blood pressure 95/62, O2 saturation 98%. HEENT: Atraumatic, normocephalic. Pupils are reactive, equal in size. Buccal mucosa is fair. ET tube was seen to be intact. Heart is regular rate rhythm with a 2/6 systolic murmur. LUNGS: Positive bibasilar crackles. Abdomen is soft, nontender, nondistended. Bowel sounds positive. EXTREMITIES: 1+ edema both lower extremities. Pulses are palpable. Nervous system cannot be evaluated. The patient remains on ventilator. LABS: CBC: White blood count 7.3, hemoglobin 9.2, hematocrit 30.4 and platelet count of 292. Chemical profile: Sodium 138, potassium 3.4, chloride 105, bicarb 23, BUN 23, creatinine 1.7, glucose 98. ASSESSMENT: 1. Hypoxemic respiratory failure requiring intubation and mechanical ventilation secondary to mitral valve disease and pulmonary edema. 2. Flash pulmonary edema. 3. Atrial fibrillation with rapid ventricular response, currently controlled with amiodarone. 4. Systolic congestive heart failure with severe cardiomyopathy and severe mitral regurgitation, ejection fraction of 25%. 5. Intermittent sinus bradycardia. 6. History of coronary artery disease with stent placement. 7. Chronic obstructive pulmonary disease. 8. Hypertension. 9. Depression. 10.Hypothyroidism. The patient the patient remains in ICU with supportive care and mechanical ventilation. Nutritional support is in place. Mitral valve replacement surgery is tentatively scheduled for next Monday. Continue to follow patient progress. Further recommendation depending upon the clinical progress of the patient. MMODL / IJN: [id number] /
[2017-09-24] MEDS: DILTIAZEM 125 MG in SODIUM CHLORIDE 0.9% 100 ML IV SCH (02:02)
[2017-09-24] MEDS: ACETAMINOPHEN TAB 500 MG TAB PO PRN (02:03)
[2017-09-24] MEDS: PROPOFOL 1,000 MG in EMPTY BAG 1 BAG IV SCH ×4 (05:00→21:05)
[2017-09-24 05:50] LABS: Albumin 2.9 g/dL (3.5-5.0); C Reactive Protein 88.3 mg/L (<10.0); Calcium 8.8 mg/dL (8.4-10.2); Phosphorus 4.5 mg/dL (2.5-4.5); Potassium 3.9 mmol/L (3.5-5.1); Total Bilirubin 0.3 mg/dL (0.2-1.3); Total Protein 6.1 g/dL (6.3-8.2)
[2017-09-24 05:54] LABS: Anisocytosis Slight; Basophils # (A) 0.1 k/uL (0-0.2); Basophils % (A) 1 %; Eosinophils # (A) 0.6 k/uL (0-0.7); Eosinophils % (A) 10 %; HCT 31.4 % (39.0-53.0); HGB 9.5 gm/dL (13.0-17.5); Hypochromasia Slight; Lymphocytes # (A) 1.1 k/uL (1.0-4.8); Lymphocytes % (A) 18 %; MCH 27.5 pg (25.0-35.0); MCHC 30.3 g/dL (31.0-37.0); MCV 90.7 fL (80.0-100.0); Mean Platelet Volume 8.4; Monocytes # (A) 0.2 k/uL (0-1.0); Monocytes % (A) 3 %; Neutrophils # (A) 3.7 k/uL (1.3-7.7); Neutrophils % (A) 64 %; Platelet Count 309 k/uL (150-450); RBC 3.46 m/uL (4.30-5.90); RDW 16.2 % (11.5-15.5); WBC 5.8 k/uL (3.8-10.6)
--- NOTE | 2017-09-24 06:42 | XR ---
EXAMINATION TYPE: XR chest 1V portable DATE OF EXAM: 09/24/2017 HISTORY: Tube placement. REFERENCE: Previous study dated 09/23/2017. FINDINGS: The patient is ET tube and NG tube remain in place, unchanged in appearance. There continue s to be increased density at the lung bases, greater on the right than the left. This may be due to p osterior airspace disease or layering effusions. Both CP angles remain sharp. Heart size upper limits of normal. IMPRESSION: 1. CONTINUING RIGHT BASILAR OPACITY. 2. IMPROVED AERATION LEFT LUNG BASE.
[2017-09-24] MEDS: IPRATROPIUM-ALBUTEROL 3 ML NEB INHALATION SCH ×3 (07:39→19:26)
[2017-09-24] MEDS: FLUoxetine HCL 20 MG CAP PO SCH (08:29)
[2017-09-24] MEDS: PANTOPRAZOLE 40 MG TABLET PO SCH (08:29)
[2017-09-24] MEDS: FUROSEMIDE 10 MG/ML 4 ML VIAL IV SCH (08:29)
[2017-09-24] MEDS: MUPIROCIN 2% OINT 22 GM TUBE TOPICAL SCH ×2 (08:29→20:23)
[2017-09-24] MEDS: ASPIRIN 81 MG PO SCH (08:29)
[2017-09-24] MEDS: SENNOSIDES 8.6 MG TAB PO SCH (08:29)
[2017-09-24] MEDS: CHLORHEXIDINE GLUCONATE 15 ML CUP MUCOUS MEM SCH ×2 (08:29→20:22)
[2017-09-24] MEDS: LEVOTHYROXINE 25 MCG TAB PO SCH (08:29)
[2017-09-24] MEDS: NICOTINE 21MG/24HR PATCH TRANSDERM SCH (08:30)
[2017-09-24] MEDS: PIPERACILLIN-TAZOBACTAM 3.375 GM in DEXTROSE/WATER 1 50ML.BAG IVPB SCH (09:30)
--- NOTE | 2017-09-24 10:13 | P.PN ---
Subjective Progress Note Date: 09/24/17 Principal diagnosis: Severe mitral valve regurgitation. Previous history of chronic persistent atrial fibrillation on Eliquis for anticoagulation, depression, peripheral artery disease, chronic nicotine dependence, chronic kidney disease stage III, hypertension, coronary artery disease with previous stent placement, GERD, and hypothyroidism. This 62-year-old gentleman presented to [facility] on 09/05/2017 with complaints of left foot pain and swelling, mainly to his left great toe after previous trauma. He was admitted for further treatment and evaluation. Subsequently he became unresponsive, bradycardic, and hypotensive. He was quickly intubated and taken to the intensive care unit for hemodynamic monitoring. He developed a lactic acidosis. In addition he developed atrial fibrillation. He was extubated, placed on BiPAP, and subsequently reintubated a few days later. A 2-D echocardiogram was completed which demonstrated normal left ventricular function with an ejection fraction between 55-60%, moderate aortic insufficiency, severe mitral regurgitation, mild tricuspid regurgitation. He then had a bedside transesophageal echocardiogram which demonstrated severe mitral valve regurgitation with a flail anterior leaflet, mild aortic insufficiency and severely impaired left ventricular function with an ejection fraction of 30-35%. Left heart catheterization was performed yesterday with no significant coronary stenosis. Cardiothoracic surgery was consulted for surgical repair of the patient's mitral valve. Status post cardiac catheterization on 09/25/2017 demonstrating a patent LAD stent and no significant coronary stenosis. Status post neck CTA demonstrating severe right internal carotid artery estimated at greater than 70%, moderate to severe narrowing of the proximal left internal carotid artery between 50-69%. Status post angiogram, no stent placement to the carotid arteries, right carotid approximately 70% stenosis, left carotid approximately 50% stenosis per angiogram. Status post cardiac arrest, reintubation for flash pulmonary edema. Preoperative sputum culture with Gram stain negative bacilli, urine culture with gram-negative bacilli, currently on Zosyn IV. Patient's currently lying in bed in no acute distress. Currently sedated on mechanical ventilation. Does open eyes and follows commands. Objective - Vital Signs Vital signs: Vital Signs Temp 100.2 F H 09/24/17 04:00 Pulse 116 H 09/24/17 09:00 Resp 21 09/24/17 09:00 BP 95/62 09/22/17 17:00 Pulse Ox 100 09/24/17 09:00 Intake & Output 09/23/17 09/24/17 09/24/17 18:59 06:59 18:59 Intake Total 9790.760 2594.803 567.0 Output Total 1871 2069 250 Balance -285.767 -239.197 317.0 Intake: IV 561.2 662.1 187.9 Amiodarone 450 mg In 16.7 33.2 Dextrose 5% in Water 250 ml @ 0.5 MG/MIN 16.66 mls /hr IV .Q15H1M AJ Rx#: [id number] Amiodarone 450 mg In 16.1 144.9 16.1 Dextrose 5% in Water 250 ml @ 0.5 MG/MIN 16.66 mls /hr IV .Q15H1M AJ Rx#: [id number] Heparin Sod,Pork in 0.45% 218.4 272.2 78.6 NaCl 25,000 unit In 0.45 % NaCl 1 500ml.bag @ 12 UNITS/KG/HR 18.74 mls/hr IV .Q24H AJ Rx#: [id number] Piperacillin-Tazobactam 3 50.0 25.0 .375 gm In Dextrose/Water 1 50ml.bag @ 12.5 mls/hr IVPB Q12HR AJ Rx#: [id number] Sodium Chloride 0.9% 1, 260 220 60 000 ml @ 20 mls/hr IV . Q24H AJ Rx#:[id number] Intake, IV Titration 625.033 468.703 79.1 Amount Amiodarone 450 mg In 449.2 283.2 Dextrose 5% in Water 250 ml @ 0.5 MG/MIN 16.66 mls /hr IV .Q15H1M AJ Rx#: [id number] Propofol 1,000 mg In 175.833 185.503 79.1 Empty Bag 1 bag @ Titrate IV .Q0M AJ Rx#: [id number] Tube Feeding 340 640 300 Blood Product 30 Other 30 60 Output: Urine 1871 2069 250 Other: Voiding Method Indwelling Catheter Indwelling Catheter ABP, PAP, CO, CI - Last Documented Arterial Blood Pressure 114/57 - Constitutional General appearance: Present: cooperative, no acute distress - Respiratory Details: Lungs sounds diminished bilaterally. Respirations even, nonlabored. Currently on mechanical ventilation. Settings assist control mode, FiO2 45%, tidal volume 500, respiratory rate 14, PEEP 5. 7.5 ET tube present, 23 at the lip. - Cardiovascular Details: S1, S2 present. Irregular rate and rhythm, atrial fibrillation on telemetry. Palpable peripheral pulses bilaterally. No edema present. Currently on IV amiodarone and IV heparin. - Gastrointestinal Gastrointestinal Comment(s): Abdomen soft, nontender, nondistended. Active bowel sounds 4 quadrants. OG tube present, tube feedings infusing at 60 mL per hour. - Genitourinary Genitourinary Comment(s): Beaulieu present draining clear, yellow urine. Output 50-550 mL/h overnight. - Integumentary Integumentary Comment(s): Skin is warm and dry. Dry gangrenous left big toe, covered with dressing. - Neurologic Neurologic Comment(s): Patient does open his eyes and follow all commands. - Psychiatric Psychiatric Comment(s): Currently sedated on mechanical ventilation, does nod head yes and shake head no appropriately. - Allied health notes Allied health notes reviewed: nursing - Labs CBC & Chem 7: 09/24/17 05:00 09/24/17 05:00 Labs: Abnormal Lab Results - Last 24 Hours (Table) 09/24/17 09/24/17 09/24/17 Range/Units 05:00 05:00 05:00 RBC 3.46 L (4.30-5.90) m/uL Hgb 9.5 L (13.0-17.5) gm/dL Hct 31.4 L (39.0-53.0) % MCHC 30.3 L (31.0-37.0) g/dL RDW 16.2 H (11.5-15.5) % APTT 54.5 H (22.0-30.0) sec BUN 23 H (9-20) mg/dL Creatinine 1.70 H (0.66-1.25) mg/dL Glucose 109 H (74-99) mg/dL AST 15 L (17-59) U/L C-Reactive Protein 88.3 H (<10.0) mg/L Total Protein 6.1 L (6.3-8.2) g/dL Albumin 2.9 L (3.5-5.0) g/dL Microbiology - Last 24 Hours (Table) 09/22/17 06:40 Urine Culture - Final Urine,Catheterized Escherichia coli 09/22/17 06:59 Blood Culture - Preliminary Blood No Growth after 48 hours 09/22/17 09:10 Gram Stain - Preliminary Sputum Sputum Culture - Preliminary Gram Neg Bacilli - Imaging and Cardiology Chest x-ray: report reviewed, image reviewed Assessment and Plan (1) Acute and chronic respiratory failure with hypoxia Current Visit: Yes Status: Acute Code(s): J96.21 - ACUTE AND CHRONIC RESPIRATORY FAILURE WITH HYPOXIA SNOMED Code(s): 72307935 (2) COPD (chronic obstructive pulmonary disease) Current Visit: Yes Status: Chronic Code(s): J44.9 - CHRONIC OBSTRUCTIVE PULMONARY DISEASE, UNSPECIFIED SNOMED Code(s): 26789865 (3) Chronic kidney disease, stage III (moderate) Current Visit: Yes Status: Chronic Code(s): N18.3 - CHRONIC KIDNEY DISEASE, STAGE 3 (MODERATE) SNOMED Code(s): 220844034 (4) Gangrenous toe Current Visit: Yes Status: Chronic Code(s): I96 - GANGRENE, NOT ELSEWHERE CLASSIFIED SNOMED Code(s): 948236498 (5) History of bradycardia Current Visit: No Status: Resolved Code(s): Z86.79 - PERSONAL HISTORY OF OTHER DISEASES OF THE CIRCULATORY SYSTEM SNOMED Code(s): 612924423337588 (6) History of coronary artery disease Current Visit: No Status: Resolved Code(s): Z86.79 - PERSONAL HISTORY OF OTHER DISEASES OF THE CIRCULATORY SYSTEM SNOMED Code(s): 796417827 (7) History of depression Current Visit: Yes Status: Chronic Code(s): Z86.59 - PERSONAL HISTORY OF OTHER MENTAL AND BEHAVIORAL DISORDERS SNOMED Code(s): 216645602 (8) Hypertension Current Visit: Yes Status: Chronic Code(s): I10 - ESSENTIAL (PRIMARY) HYPERTENSION SNOMED Code(s): 92294368 (9) Hypothyroidism Current Visit: Yes Status: Chronic Code(s): E03.9 - HYPOTHYROIDISM, UNSPECIFIED SNOMED Code(s): 91606459 (10) Peripheral vascular disease Current Visit: Yes Status: Chronic Code(s): I73.9 - PERIPHERAL VASCULAR DISEASE, UNSPECIFIED SNOMED Code(s): 453836554 (11) New onset a-fib Current Visit: Yes Status: Acute Code(s): I48.91 - UNSPECIFIED ATRIAL FIBRILLATION SNOMED Code(s): 81169486 (12) Carotid artery stenosis Current Visit: Yes Status: Chronic Code(s): I65.29 - OCCLUSION AND STENOSIS OF UNSPECIFIED CAROTID ARTERY SNOMED Code(s): 83857595 (13) Mitral valve regurgitation Current Visit: Yes Status: Chronic Code(s): I34.0 - NONRHEUMATIC MITRAL ( VALVE) INSUFFICIENCY SNOMED Code(s): 98298008 Plan: 1. Plan is for mitral valve repair versus replacement on Monday, September 25. 2. Continue mechanical ventilation. Ventilator management per pulmonology. 3. Continue heparin drip, amiodarone drip, aspirin, per cardiology management. Beta skylar as needed per cardiology. 4. Bronchodilators, antibiotics per pulmonology. 5. Avoid nephrotoxic agents. 6. GI/DVT prophylaxis. 7. Patient has received dental clearance for valve surgery. 8. More recommendations to follow Time with Patient: Greater than 30
[2017-09-24] MEDS: SODIUM CHLORIDE 0.9% 1,000 ML IV SCH (11:35)
[2017-09-24] MEDS: MEROPENEM 500 MG in SODIUM CHLORIDE 0.9% 50 ML IVPB SCH ×2 (12:29→20:22)
[2017-09-24] MEDS ORDERED: VANCOMYCIN IV PER PHARMACY 1 EACH MISC MISCELLANE PRN (13:54)
--- NOTE | 2017-09-24 15:37 | P.PN ---
Subjective Progress Note Date: 09/24/17 Principal diagnosis: Severe mitral valve regurgitation, recurrent episodes of flash pulmonary edema and respiratory failure requiring intubation and mechanical ventilation. This is a very pleasant 62-year-old gentleman who was found to have severe mitral valve stenosis. He had developed acute respiratory failure requiring intubation mechanical ventilatory support. He has been successfully extubated. He is seen again today in follow-up in the intensive care unit. He is awake and alert in no acute distress. The plan is for a right carotid stent tomorrow for greater than 70% stenosis. The patient will need to be on Plavix for 2 weeks and high-dose aspirin. The plan will be for possible mitral valve repair/ replacement following that time. In the interim he remains on a heparin drip for his atrial fibrillation. He remains on a Cardizem drip at 10 mg per hour. Amiodarone drip at 0.5 mg/m. Still having issues with tachycardia in regards to the atrial fibrillation. He is requiring 4 L nasal cannula to maintain O2 saturations in the 90s. Yesterday's chest x-ray revealed some persistent mild central vascular congestion with a new small right pleural effusion. There is cardiomegaly. Blood, sputum and urine cultures reveal no growth. No leukocytosis. Hemoglobin 9.9. Creatinine 1.40. He did have issues with diarrhea. C. difficile screen was negative. Patient was reevaluated today on 09/21/2017, patient is comfortable, in no distress, no shortness of breath no cough no wheezing, patient is scheduled to have carotid artery stenting today. This will be done by Dr. Walker. Continues to have intermittent episodes of tachyarrhythmias with intermittent episodes of sinus bradycardia and atrial fibrillation. Blood pressure is also fluctuating up and down intermittently. No chest x-ray was done today, all his labs were reviewed, creatinine is 1.30 today. Otherwise the labs are unremarkable. Patient was reevaluated today on 09/22/2017, patient was transferred out of the ICU yesterday to a monitor bed on , however early evening hours, patient developed an acute episode of bradycardia, cardiac arrest, required CPR. Reintubation and placement on mechanical ventilation. The chest x-ray showed again flash pulmonary edema. Patient was diuresed overnight, he was kept on mechanical ventilation, and his chest x-ray is showing significant improvement compared to yesterday's x-ray just after the code. Patient is arousable, follows simple instructions, no evidence of acute brain injury noted. Patient was seen by cardiology and he was seen by cardiothoracic surgery , and I believe at this point he is scheduled to have mitral valve replacement on Monday. In the meantime I plan to keep the patient on mechanical ventilation , and we'll continue to diurese him. We'll monitor his renal status closely, it will likely improve. Patient may have developed a slight kidney injury secondary to acute tumor necrosis. ABG this morning showed a pO2 of 292 pCO2 of 26 pH of 7.47, WBC count is 12.2 hemoglobin is 9.8. Basic metabolic profile is normal except for BUN 23 creatinine 1.80, and it was 1.60 yesterday. Reevaluated today on 09/23/2017, patient remains on mechanical ventilation, his ventilator settings are basically the same, cut down his FiO2 to 45%, patient is arousable, follows simple instructions, chest x-ray is showing mild pulmonary edema, much improved compared to the initial chest x-ray at the time of his intubation. Patient is receiving nutritional support, via nasogastric tube. ABG today showed a pO2 of 119 pCO2 of 32 pH of 7.45. CBC is relatively normal hemoglobin however is 9.3. Potassium is low at 3.4 being corrected. Renal profile is slightly better, BUN is 23 creatinine is 1.70. Patient was reevaluated today on 09/24/2017, remains on mechanical ventilation, his ventilator settings are basically the same, remains on FiO2 of 45%. Chest x -ray showed cardiomegaly, bibasilar atelectasis, but no clear-cut evidence of pneumonia. Improved aeration in both lungs was noted compared to the chest x- ray few days ago. His sputum came back positive for Enterobacter cloaca and Klebsiella oxytoca, and his urine came back positive for E. coli. His antibiotics were switched to imipenem to cover for all of the above. Objective - Vital Signs Vital signs: Vital Signs Temp 100.8 F H 09/24/17 12:00 Pulse 113 H 09/24/17 15:00 Resp 22 09/24/17 15:00 BP 95/62 09/22/17 17:00 Pulse Ox 98 09/24/17 15:00 Intake & Output 09/23/17 09/24/17 09/24/17 18:59 06:59 18:59 Intake Total 3028.323 6143.803 1351.7 Output Total 1871 2069 2029 Balance -285.767 -239.197 -678.3 Weight 70.1 kg Intake: IV 561.2 662.1 552.6 Amiodarone 450 mg In 16.7 33.2 Dextrose 5% in Water 250 ml @ 0.5 MG/MIN 16.66 mls /hr IV .Q15H1M AJ Rx#: [id number] Amiodarone 450 mg In 16.1 144.9 16.1 Dextrose 5% in Water 250 ml @ 0.5 MG/MIN 16.66 mls /hr IV .Q15H1M AJ Rx#: [id number] Heparin Sod,Pork in 0.45% 218.4 272.2 235.8 NaCl 25,000 unit In 0.45 % NaCl 1 500ml.bag @ 12 UNITS/KG/HR 18.74 mls/hr IV .Q24H AJ Rx#: [id number] Meropenem 500 mg In 50 Sodium Chloride 0.9% 50 ml @ 100 mls/hr IVPB Q12HR AJ Rx#:[id number] Piperacillin-Tazobactam 3 50.0 25.0 37.5 .375 gm In Dextrose/Water 1 50ml.bag @ 12.5 mls/hr IVPB Q12HR AJ Rx#: [id number] Sodium Chloride 0.9% 1, 260 220 180 000 ml @ 20 mls/hr IV . Q24H AJ Rx#:[id number] Intake, IV Titration 625.033 468.703 79.1 Amount Amiodarone 450 mg In 449.2 283.2 Dextrose 5% in Water 250 ml @ 0.5 MG/MIN 16.66 mls /hr IV .Q15H1M AJ Rx#: [id number] Propofol 1,000 mg In 175.833 185.503 79.1 Empty Bag 1 bag @ Titrate IV .Q0M AJ Rx#: [id number] Tube Feeding 340 640 720 Blood Product 30 Other 30 60 Output: Urine 1871 2069 2029 Other: Voiding Method Indwelling Catheter Indwelling Catheter Indwelling Catheter # Voids 0 ABP, PAP, CO, CI - Last Documented Arterial Blood Pressure 112/58 - Exam GENERAL EXAM: Revealed a 62-year-old -Iranian male, on mechanical ventilation, arousable, follows simple instructions. HEAD: Normocephalic. EYES: Normal reaction of pupils, equal size. NOSE: Clear with pink turbinates. THROAT: No erythema or exudates. Endotracheal tube seems to be intact. Orogastric tube is also intact. NECK: No masses, no JVD. CHEST: No chest wall deformity. LUNGS: Minimal fine crackles at the bases, no rhonchi no wheezes. CVS: S1 and S2 normal, 2/6 systolic murmur throughout the precordium., irregular rhythm. Tachycardic. ABDOMEN: No hepatosplenomegaly, normal bowel sounds, no guarding or rigidity. SPINE: No scoliosis or deformity SKIN: No rashes CENTRAL NERVOUS SYSTEM: No focal deficits, tone is normal in all 4 extremities. EXTREMITIES: There is no peripheral edema. No clubbing, no cyanosis. Peripheral pulses are intact. - Labs CBC & Chem 7: 09/24/17 05:00 09/24/17 05:00 Labs: Abnormal Lab Results - Last 24 Hours (Table) 09/24/17 09/24/17 09/24/17 Range/Units 05:00 05:00 05:00 RBC 3.46 L (4.30-5.90) m/uL Hgb 9.5 L (13.0-17.5) gm/dL Hct 31.4 L (39.0-53.0) % MCHC 30.3 L (31.0-37.0) g/dL RDW 16.2 H (11.5-15.5) % APTT 54.5 H (22.0-30.0) sec BUN 23 H (9-20) mg/dL Creatinine 1.70 H (0.66-1.25) mg/dL Glucose 109 H (74-99) mg/dL AST 15 L (17-59) U/L C-Reactive Protein 88.3 H (<10.0) mg/L Total Protein 6.1 L (6.3-8.2) g/dL Albumin 2.9 L (3.5-5.0) g/dL Microbiology - Last 24 Hours (Table) 09/22/17 09:10 Gram Stain - Final Sputum Sputum Culture - Final Enterobacter cloacae Klebsiella oxytoca 09/22/17 06:40 Urine Culture - Final Urine,Catheterized Escherichia coli 09/22/17 06:59 Blood Culture - Preliminary Blood No Growth after 48 hours Assessment and Plan Assessment: Recurrent episodes of hypoxic respiratory failure requiring intubation and mechanical ventilation, mostly secondary to mitral valve disease, and the patient is developing flash pulmonary edema is intermittently. Considering the significant improvement of the chest x-ray after diuresis, this is clearly a cardiogenic pulmonary edema, not ARDS, and not pneumonia. Atrial fibrillation/RVR, presently controlled with amiodarone, Recurrent systolic Congestive heart failure, secondary to severe mitral regurgitation and cardiomyopathy with an ejection fraction of 25% Intermittent sinus bradycardia History of CAD with previous stent placement History of COPD History of essential hypertension History of depression Peripheral vascular occlusive disease Hypothyroidism Hypertensive nephrosclerosis with chronic kidney disease, stage III Acute cellulitis and dry gangrene of the left big toe, status post debridement Bilateral carotid disease, worse on the right with a greater than 70% obstruction, angiogram showed the obstruction was nonsignificant. Positive sputum cultures and urine cultures as noted above in my previous documentation, and his antibiotics were switched to Merrem, it will cover his Enterobacter, Klebsiella, and E. coli. Recommendation: Continue present supportive care measures, continue mechanical ventilation, nutritional support, mitral valve replacement surgery is tentatively scheduled for tomorrow. Discussed his condition with Dr. Huddleston at length, and the plan is to proceed with surgery as scheduled tomorrow. Critical care time is 33 minutes Time with Patient: Greater than 30
[2017-09-24] MEDS: AMIODARONE 450 MG in DEXTROSE 5% IN WATER 250 ML IV SCH ×2 (15:49)
--- NOTE | 2017-09-24 16:22 | PN ---
PROGRESS NOTE Patient is seen for followup for acute kidney injury. He has had 3 episodes of recurrent pulmonary edema, currently remains on the vent. Patient has significant mitral valve disease and is scheduled for open heart surgery for Monday with mitral valve repair/replacement. He has also had a fever recently and a sputum culture was positive for Enterobacter cloacae and Klebsiella oxytoca and urine culture was positive for E coli. Patient is maintained on antibiotics. He is currently afebrile. For his pulmonary edema, he is on Lasix at 40 mg q.12 hours and serum creatinine has been staying at about 1.7 mg/dL. He has been as low as 1.2. The patient has had multiple IV contrast administrations for several angiograms. He has had 3 studies recently. EXAMINATION: Patient is awake. He is on the vent, but following commands. Blood pressure is 112/58, heart rate 113 per minute. He is afebrile. Examination of the heart S1, S2. Examination of the lungs bilateral breath sounds are heard. Abdomen is soft, nontender. Exam of lower extremities shows no evidence of edema. Left 1st, 2nd toes have dry gangrene. LAB: Show sodium 137, potassium 3.9, chloride 104, BUN 23, serum creatinine 1.7, hemoglobin 9.5 g/dL. ASSESSMENT: 1. Acute kidney injury secondary to contrast nephropathy, currently nonoliguric with good urine output. I will decrease the Lasix. 2. Vent dependent respiratory failure secondary to recurrent pulmonary edema. The possibility of renal artery stenosis is also entertained. 3. Severe mitral valve disease, scheduled for open-heart surgery tomorrow. 4. Pneumonia with Enterobacter and Klebsiella noted on sputum culture. 5. Urinary tract infection with E coli. PLAN: 1. Decrease Lasix. 2. Repeat labs in a.m. 3. Avoid any other nephrotoxic agents. MMODL / IJN: [id number] /
--- NOTE | 2017-09-24 16:37 | PN ---
PROGRESS NOTE Mr. Maradiaga is stilled intubated but stable, not in overt heart failure. He has some bacteria growing in the blood. This has been communicated to Dr. Huddleston. He is going for a mitral valve repair or replacement tomorrow. Remains in atrial fib controlled rate. S1-S2 with a regular rhythm, short systolic murmur at the base and a holosystolic murmur at the apex. Lungs are clear. Abdomen and lower exam unchanged. Prognosis remains guarded. Going for a mitral valve surgery tomorrow. MMODL / IJN: [id number] /
--- NOTE | 2017-09-24 20:07 | PN ---
PROGRESS NOTE DATE OF SERVICE: 09/24/2017. The patient remains on mechanical ventilator. Vital signs: Temperature 100.8, pulse 130, respiration 22, blood pressure 95/62, O2 saturation 98%. HEENT atraumatic, normocephalic. Pupils equal and reactive to light. Neck is supple. No goiter, lymphadenopathy. JVD is negative. No carotid bruit heard. Lungs: Decreased breath sounds. No rales or rhonchi. Heart is regular rate and rhythm without murmurs or gallop rhythm. Abdomen is soft, nontender, nondistended. Bowel sounds positive. Extremities, no edema, clubbing or cyanosis. Neurological examination cannot be evaluated. LABS: CBC: White blood count 5.8, hemoglobin 9.5, hematocrit 31.4 and platelet count of 3.9. Chemical profile: Sodium 137, potassium 3.9, chloride 105, bicarb 22, BUN 23, creatinine 1.7, glucose 109. ASSESSMENT: 1. Hypoxic respiratory failure requiring mechanical ventilation. 2. Flash pulmonary edema. 3. Atrial fibrillation with RVR. The patient is continued on amiodarone. 4. Acute exacerbation of systolic congestive heart failure. 5. History of coronary artery. 6. History of COPD. 7. Hypertension. The patient remains in ICU. Supportive mechanical ventilation is continued. The patient is tentatively planned for a mitral valve replacement surgery tomorrow. MMODL / IJN: [id number] /
[2017-09-24] MEDS: BISACODYL 10 MG SUPP RECTAL SCH (20:22)
--- NOTE | 2017-09-24 23:07 | PN ---
PROGRESS NOTE DATE OF SERVICE: 09/24/2017. REASON FOR FOLLOWUP: 1. Left leg 2nd toe wound cellulitis. 2. Gram-negative pneumonia. INTERVAL HISTORY: The patient has been running a low-grade fever with fever 101.3 last night and 100.8 this afternoon. The patient hemodynamically stable. Not on any pressor support at the time of my evaluation. Has been tolerating his tube feeds. No significant pain with secretions of the ET tube per the RN and no diarrhea. EXAMINATION: Blood pressure is 106/51 with a pulse of 99, temperature 97.8. He is 100% on 45% FiO2. General description is a middle-aged male lying in bed in no distress. Respiratory system unlabored breathing with some coarse breath sounds at bases. No wheeze. Heart S1, S2. Regular rate and rhythm. Abdomen soft, no tenderness. Left foot is currently dressed up. No obvious drainage on the dressing. LABS: Hemoglobin 9.5, white count 5.8 with a BUN of 23, creatinine 1.70. DIAGNOSTIC IMPRESSION AND PLAN: 1. Patient with a new fever, now with sputum showing Enterobacter, which is a pretty resistant pathogen with Piptazobactam the patient was on. Antibiotic has been adjusted to meropenem which will be continued while waiting for the clinical condition to stabilize. Continue with supportive care left foot. 2. Second toe cellulitis adequately treated, . but no drainage. Local wound care with Aquacel Silver dressing. MMODL / IJN: [id number] /
[2017-09-25] MEDS: DILTIAZEM 125 MG in SODIUM CHLORIDE 0.9% 100 ML IV SCH (01:42)
[2017-09-25 03:59] LABS: Anisocytosis Slight; Basophils # (A) 0.1 k/uL (0-0.2); Basophils % (A) 1 %; Eosinophils # (A) 0.6 k/uL (0-0.7); Eosinophils % (A) 11 %; HGB 9.8 gm/dL (13.0-17.5); Hypochromasia Moderate; Lymphocytes # (A) 1.5 k/uL (1.0-4.8); Lymphocytes % (A) 27 %; MCH 27.5 pg (25.0-35.0); MCHC 29.8 g/dL (31.0-37.0); MCV 92.3 fL (80.0-100.0); Mean Platelet Volume 8.8; Monocytes # (A) 0.2 k/uL (0-1.0); Monocytes % (A) 4 %; Neutrophils % (A) 54 %; Platelet Count 292 k/uL (150-450); RBC 3.58 m/uL (4.30-5.90); RDW 16.2 % (11.5-15.5); WBC 5.5 k/uL (3.8-10.6)
[2017-09-25 04:08] LABS: Partial Thromboplastin Time 25.9 sec (22.0-30.0); Prothrombin Time 9.9 sec (9.0-12.0)
[2017-09-25 04:11] LABS: Albumin 3.1 g/dL (3.5-5.0); Calcium 9.1 mg/dL (8.4-10.2); Total Bilirubin 0.4 mg/dL (0.2-1.3); Total Protein 6.4 g/dL (6.3-8.2)
[2017-09-25] MEDS ORDERED: ALBUMIN HUMAN 5% 500 ML in EMPTY BAG 1 BAG IVPB ONE ×6 (05:00)
[2017-09-25] MEDS ORDERED: CLEVIDIPINE BUTYRATE 25 MG in EMPTY BAG 1 BAG IV ONE (05:00)
[2017-09-25] MEDS ORDERED: DEXTROSE 5% IN WATER 1,000 ML with POTASSIUM CHLORIDE 110 MEQ, MAGNESIUM SULFATE 16 MEQ... IV SCH ×5 (05:00)
[2017-09-25] MEDS ORDERED: PHENYLEPHRINE-0.9% NACL SYG 1 MG/10 ML SYRINGE IV ONE ×4 (05:00)
[2017-09-25] MEDS ORDERED: ATORVASTATIN 10 MG TAB PO ONE (05:00)
[2017-09-25] MEDS ORDERED: CHLORHEXIDINE GLUCONATE 15 ML CUP MUCOUS MEM ONE (05:00)
[2017-09-25] MEDS ORDERED: NITROGLYCERIN-D5W PMX 50 MG in DEXTROSE/WATER 1 250ML.BAG IV ONE (05:00)
[2017-09-25] MEDS ORDERED: PHENYLEPHRINE 40 MG in SODIUM CHLORIDE 0.9% 250 ML IV ONE (05:00)
[2017-09-25] MEDS ORDERED: AMINOCAPROIC ACID 5,000 MG in DEXTROSE 5% IN WATER 50 ML IV ONE ×4 (05:00)
[2017-09-25] MEDS ORDERED: NOREPINEPHRIN 4 MG-0.9% NS PMX 4 MG/250 ML ML IV SCH (05:00)
[2017-09-25] MEDS ORDERED: ceFAZolin 2 GM in SODIUM CHLORIDE 0.9% 30 ML IVPB ONE (05:00)
[2017-09-25] MEDS ORDERED: DEXTROSE 5% IN WATER 1,000 ML with POTASSIUM CHLORIDE 25 MEQ, SODIUM CHLORIDE 4MEQ/ML V... IV SCH ×6 (05:00)
[2017-09-25] MEDS ORDERED: ceFAZolin 2,000 MG in SODIUM CHLORIDE 0.9% 30 ML IVPB ONE (05:00)
[2017-09-25] MEDS ORDERED: PROTAMINE SULFATE 10 MG/ML 25 ML VIAL IV ONE ×2 (05:00→07:26)
[2017-09-25] MEDS ORDERED: AMINOCAPROIC ACID 250 MG/ML 20 ML VIAL IV ONE (05:00)
[2017-09-25] MEDS ORDERED: INSULIN REGULAR 100 UNIT in SODIUM CHLORIDE 0.9% 100 ML IV ONE (05:00)
[2017-09-25] MEDS ORDERED: ceFAZolin 1,000 MG in SODIUM CHLORIDE 0.9% IRRIGATIO 1,000 ML IRRIGATION ONE (05:00)
[2017-09-25] MEDS ORDERED: ASPIRIN 325 MG TAB PO ONE (05:00)
[2017-09-25] MEDS ORDERED: CALCIUM CHLORIDE 100 MG/ML 10 ML SYRINGE IVP ONE (05:00)
[2017-09-25] MEDS ORDERED: PROTAMINE SULFATE 250 MG in EMPTY BAG 1 BAG IV ONE (05:00)
[2017-09-25] MEDS ORDERED: MAGNESIUM SULFATE SYG 4.06 MEQ/ML SYRINGE IV ONE (05:00)
[2017-09-25] MEDS ORDERED: VANCOMYCIN 1,000 MG in SODIUM CHLORIDE 0.9% 100 ML IVPB ONE (05:00)
[2017-09-25] MEDS ORDERED: MANNITOL 25% 12.5 GM/50 ML VIAL IV ONE ×2 (05:00)
[2017-09-25] MEDS ORDERED: TRANEXAMIC ACID 2,000 MG in SODIUM CHLORIDE 0.9% 180 ML IV ONE (05:00)
[2017-09-25] MEDS ORDERED: NITROGLYCERIN-D5W PMX 25 MG/250 ML BTL IV ONE (05:00)
[2017-09-25] MEDS ORDERED: HEPARIN SODIUM,PORCINE 5,000 UNIT in SODIUM CHLORIDE 0.9% 500 ML IV ONE (05:00)
[2017-09-25] MEDS ORDERED: ALBUMIN HUMAN 25% 50 ML in EMPTY BAG 1 BAG IVPB ONE (05:00)
[2017-09-25] MEDS ORDERED: HEPARIN SODIUM 1,000 UN/ML (10ML VL) IV ONE (05:00)
[2017-09-25] MEDS ORDERED: SODIUM BICARB 8.4% 50 ML SYR (1 MEQ/ML) IV ONE (05:00)
[2017-09-25 05:07] LABS: T4, Free (Free Thyroxine) 1.34 ng/dL (0.78-2.19)
[2017-09-25] MEDS: LEVOTHYROXINE 25 MCG TAB PO SCH (05:41)
[2017-09-25] MEDS: MAGNESIUM SULFATE-D5W PMX 1 GM in DEXTROSE/WATER 1 100ML.BAG IVPB SCH ×2 (05:41→06:48)
[2017-09-25] MEDS: PROPOFOL 1,000 MG in EMPTY BAG 1 BAG IV SCH (06:05)
[2017-09-25] MEDS: AMIODARONE 450 MG in DEXTROSE 5% IN WATER 250 ML IV SCH ×4 (06:49→16:01)
[2017-09-25] MEDS ORDERED: fentaNYL (PF) 50 MCG/ML 50 ML VIAL ONE (07:26)
[2017-09-25] MEDS ORDERED: MIDAZOLAM 2 MG/2 ML VIAL ONE (07:26)
[2017-09-25] MEDS ORDERED: MAGNESIUM SULFATE 4 MEQ/ML 2 ML VIAL ONE (07:26)
[2017-09-25] MEDS ORDERED: HEPARIN SODIUM,PORCINE 10,000 UNIT/ML 1 ML VIAL ONE (07:26)
[2017-09-25] MEDS ORDERED: SODIUM CHLORIDE 0.9% IRRIG 1,000 ML BTL IRRIGATION ONE (07:26)
[2017-09-25] MEDS ORDERED: fentaNYL (PF) 50 MCG/ML 2 ML AMP ONE (07:26)
[2017-09-25] MEDS ORDERED: ELECTROLYTE-R (PH 7.4) 1,000 ML IV.SOLN IV ONE (07:26)
[2017-09-25] MEDS ORDERED: VECURONIUM 10 MG VIAL IV ONE (07:26)
[2017-09-25] MEDS ORDERED: LIDOCAINE 2% SYG (PF) 100 MG/5 ML ONE (07:26)
[2017-09-25] MEDS ORDERED: ALBUMIN HUMAN 5% 250 ML BOTTLE IVPB ONE (07:26)
[2017-09-25] MEDS: IPRATROPIUM-ALBUTEROL 3 ML NEB INHALATION SCH ×4 (07:31→20:35)
--- NOTE | 2017-09-25 07:40 | XR ---
EXAMINATION TYPE: XR chest 1V portable DATE OF EXAM: 09/25/2017 Comparison: 09/24/2017 Clinical History: 62-year-old male Tube placement Findings: Heart upper limits of normal in size. Aorta within normal limits. Mild diffuse interstitial and hazy lung densities persist in the left perihilar region with improving aeration on the right. No pleural effusion. ET tube is satisfactory. NG tube courses below the diaphragm. NG tube sidehole below the level of the GE junction. Impression: Some minimal residual interstitial infiltrates. Aeration is improving on the right.
--- NOTE | 2017-09-25 07:55 | P.PN ---
Subjective Patient is seen in follow-up for acute kidney injury. Renal function is improved with creatinine of 1.5 today. He is scheduled for mitral valve replacement today. He still on amiodarone drip for to fibrillation with RVR. He remains intubated. Currently maintained on antibiotics for E. coli UTI as well as Enterobacter and Klebsiella noted on sputum culture. He is nonoliguric. Vital signs are stable. General: The patient appeared well nourished and normally developed. Currently intubated. HEENT: Head exam is unremarkable. Neck is without jugular venous distension. LUNGS: Lungs are clear to auscultation and percussion. Breath sounds decreased. HEART: Rate and Rhythm are regular. First and second heart sounds normal. No murmurs, rubs or gallops. ABDOMEN: Abdominal exam reveals normal bowel sounds. Non-tender and non- distended. No evidence of peritonitis. EXTREMITITES: No clubbing, cyanosis, or edema. Objective - Vital Signs Vital signs: Vital Signs Temp 98.5 F 09/25/17 04:00 Pulse 97 09/25/17 07:00 Resp 14 09/25/17 07:00 BP 82/59 09/24/17 21:00 Pulse Ox 98 09/25/17 07:00 Intake & Output 09/24/17 09/25/17 09/25/17 18:59 06:59 18:59 Intake Total 2230.3 1882.053 Output Total 2480 735 Balance -249.7 1147.053 Weight 70.1 kg 70.6 kg Intake: IV 691.2 536.2 Amiodarone 450 mg In 33.2 Dextrose 5% in Water 250 ml @ 0.5 MG/MIN 16.66 mls /hr IV .Q15H1M [facility] Rx#: [id number] Amiodarone 450 mg In 16.1 Dextrose 5% in Water 250 ml @ 0.5 MG/MIN 16.66 mls /hr IV .Q15H1M [facility] Rx#: [id number] Heparin Sod,Pork in 0.45% 314.4 26.2 NaCl 25,000 unit In 0.45 % NaCl 1 500ml.bag @ 12 UNITS/KG/HR 18.74 mls/hr IV .Q24H [facility] Rx#: [id number] Magnesium Sulfate-D5w Pmx 200 1 gm In Dextrose/Water 1 100ml.bag @ 100 mls/hr IVPB Q1H [facility] Rx#: [id number] Meropenem 500 mg In 50 50 Sodium Chloride 0.9% 50 ml @ 100 mls/hr IVPB Q12HR [facility] Rx#:[id number] Piperacillin-Tazobactam 3 37.5 .375 gm In Dextrose/Water 1 50ml.bag @ 12.5 mls/hr IVPB Q12HR [facility] Rx#: [id number] Sodium Chloride 0.9% 1, 240 260 000 ml @ 20 mls/hr IV . Q24H [facility] Rx#:[id number] Intake, IV Titration 429.1 895.853 Amount Amiodarone 450 mg In 250 249.9 Dextrose 5% in Water 250 ml @ 0.5 MG/MIN 16.66 mls /hr IV .Q15H1M [facility] Rx#: [id number] Heparin Sod,Pork in 0.45% 500 NaCl 25,000 unit In 0.45 % NaCl 1 500ml.bag @ 12 UNITS/KG/HR 18.74 mls/hr IV .Q24H [facility] Rx#: [id number] Propofol 1,000 mg In 179.1 145.953 Empty Bag 1 bag @ Titrate IV .Q0M [facility] Rx#: [id number] Tube Feeding 1020 420 Other 90 30 Output: Urine 2480 735 Other: Voiding Method Indwelling Catheter Indwelling Catheter # Voids 0 ABP, PAP, CO, CI - Last Documented Arterial Blood Pressure 135/65 - Labs CBC & Chem 7: 09/25/17 03:40 09/25/17 03:40 Labs: Abnormal Lab Results - Last 24 Hours (Table) 09/24/17 09/25/17 09/25/17 Range/Units 15:05 03:40 03:40 RBC 3.58 L (4.30-5.90) m/uL Hgb 9.8 L (13.0-17.5) gm/dL Hct 33.0 L (39.0-53.0) % MCHC 29.8 L (31.0-37.0) g/dL RDW 16.2 H (11.5-15.5) % BUN 21 H (9-20) mg/dL Creatinine 1.50 H (0.66-1.25) mg/dL Phosphorus (2.5-4.5) mg/dL AST 15 L (17-59) U/L Albumin 3.1 L (3.5-5.0) g/dL TSH 5.510 H (0.465-4.680) mIU/L Crossmatch See Detail 09/25/17 Range/Units 03:40 RBC (4.30-5.90) m/uL Hgb (13.0-17.5) gm/dL Hct (39.0-53.0) % MCHC (31.0-37.0) g/dL RDW (11.5-15.5) % BUN (9-20) mg/dL Creatinine (0.66-1.25) mg/dL Phosphorus 4.8 H (2.5-4.5) mg/dL AST (17-59) U/L Albumin (3.5-5.0) g/dL TSH (0.465-4.680) mIU/L Crossmatch Microbiology - Last 24 Hours (Table) 09/22/17 09:10 Gram Stain - Final Sputum Sputum Culture - Final Enterobacter cloacae Klebsiella oxytoca 09/22/17 06:40 Urine Culture - Final Urine,Catheterized Escherichia coli 09/22/17 06:59 Blood Culture - Preliminary Blood No Growth after 48 hours Assessment and Plan Plan: Assessment: #1. Nonoliguric acute kidney injury secondary to ATN secondary to contrast- induced nephropathy and hemodynamic instability. Creatinine improved to 1.5 today. #2. Atrial fibrillation with RVR maintained on amiodarone drip. #3. Chronic kidney disease stage III with baseline creatinine in the range of 1.2-1.4 secondary to nephrosclerosis. #4. Mitral valve regurgitation scheduled for mitral of replacement today. #5. Pneumonia with sputum culture positive for Enterobacter and Klebsiella. #6. UTI with urine culture positive for E. coli. #7. Systolic CHF with ejection fraction of 40%. Plan: Continue Lasix 40 mg once daily. Avoid nephrotoxic agents and hypotensive episodes. Continue to monitor renal function and urine output. Antibiotics per infectious disease recommendations.
[2017-09-25] MEDS ORDERED: SODIUM CHLORIDE 0.9% 99 ML with VASOPRESSIN 20 UNIT IV ONE ×2 (09:15)
[2017-09-25] MEDS ORDERED: ONDANSETRON 4 MG/2 ML VIAL IVP PRN (13:27)
[2017-09-25] MEDS ORDERED: CALCIUM GLUCONATE 2,000 MG in SODIUM CHLORIDE 0.9% 100 ML IVPB PRN (13:27)
[2017-09-25] MEDS ORDERED: BENZOCAINE/MENTHOL LOZENG 1 EACH LOZENGE MUCOUS MEM PRN (13:27)
[2017-09-25] MEDS ORDERED: INSULIN REGULAR 100 UNIT in SODIUM CHLORIDE 0.9% 100 ML IV SCH (13:27)
[2017-09-25] MEDS ORDERED: HYDROmorphone 0.5 MG/0.5 ML SYRINGE IVP PRN (13:27)
[2017-09-25] MEDS ORDERED: Phosphorus Replacement Protoco 1 EACH MISC MISCELLANE PRN (13:27)
[2017-09-25] MEDS ORDERED: Magnesium Replacement Protocol 1 EACH MISC MISCELLANE PRN (13:27)
[2017-09-25] MEDS ORDERED: NOREPINEPHRINE 4 MG in SODIUM CHLORIDE 0.9% 250 ML IV SCH (13:27)
[2017-09-25] MEDS ORDERED: Potassium Replacement Protocol 1 EACH MISC MISCELLANE PRN (13:27)
[2017-09-25] MEDS: ASPIRIN 81 MG PO SCH (13:32)
[2017-09-25] MEDS: MEROPENEM 500 MG in SODIUM CHLORIDE 0.9% 50 ML IVPB SCH ×3 (13:34→23:42)
[2017-09-25] MEDS: FLUoxetine HCL 20 MG CAP PO SCH (13:34)
[2017-09-25] MEDS: FUROSEMIDE 10 MG/ML 4 ML VIAL IV SCH (13:34)
[2017-09-25] MEDS: MUPIROCIN 2% OINT 22 GM TUBE TOPICAL SCH ×2 (13:35→20:21)
[2017-09-25] MEDS: NICOTINE 21MG/24HR PATCH TRANSDERM SCH (13:35)
[2017-09-25] MEDS: PROPOFOL 1,000 MG in EMPTY BAG 1 BAG IV ONE ×3 (13:40→18:32)
[2017-09-25] MEDS: CHLORHEXIDINE GLUCONATE 15 ML CUP MUCOUS MEM SCH ×2 (13:41→22:43)
[2017-09-25] MEDS: PANTOPRAZOLE 40 MG TABLET PO SCH (13:41)
[2017-09-25] MEDS: SENNOSIDES 8.6 MG TAB PO SCH (13:41)
[2017-09-25] MEDS: HEPARIN SOD,PORK IN 0.45% NACL 25,000 UNIT in 0.45% NACL 1 500ML.BAG IV SCH (13:41)
[2017-09-25] MEDS: SODIUM CHLORIDE 0.9% 1,000 ML IV SCH (13:42)
[2017-09-25] MEDS: MILRINONE-D5W PMX 20 MG in DEXTROSE/WATER 1 100ML.BAG IV SCH (13:50)
[2017-09-25] MEDS: CLEVIDIPINE BUTYRATE 25 MG in EMPTY BAG 1 BAG IV SCH ×2 (14:00→23:37)
[2017-09-25 14:16] LABS: Glucose,Whole Blood 92 mg/dL (75-99)
--- NOTE | 2017-09-25 14:17 | XR ---
EXAMINATION TYPE: XR chest 1V portable DATE OF EXAM: 09/25/2017 COMPARISON: 09/25/2017 HISTORY: Postop cardiac surgery TECHNIQUE: Single frontal view of the chest is obtained. FINDINGS: Marty-Carson catheter seen the tip overlying proximal pulmonary outflow tract. There is perih ilar interstitial changes suggestive of venous congestion. Subsegmental changes at the left lung base with small effusion. Postsurgical changes are noted. Mediastinal drain, ET tube and NG tube are note d. Small amount of subcutaneous emphysema along the upper margin of the left chest. No sizable pneumotho rax. IMPRESSION: 1. Postsurgical changes with mild central venous congestion superimposed on a background of COPD. Tin y left pleural effusion and basilar atelectasis or infiltrate noted.
[2017-09-25 14:33] LABS: ABG Base Excess -4.1 mmol/L; ABG HCO3 23 mmol/L (21-25); ABG Oxygen Saturation 99.7 % (94-97); ABG PCO2 47 mmHg (35-45); ABG PH 7.29 (7.35-7.45); ABG PO2 184 mmHg (83-108); ABG TCO2 24 mmol/L (19-24)
--- NOTE | 2017-09-25 14:38 | P.PN ---
Subjective Progress Note Date: 09/25/17 Principal diagnosis: Severe mitral valve regurgitation, status post mitral valve replacement, modified Albert maze cryoablation, and exclusion of the left atrial appendage This is a very pleasant 62-year-old gentleman who was found to have severe mitral valve stenosis. He had developed acute respiratory failure requiring intubation mechanical ventilatory support. He has been successfully extubated. He is seen again today in follow-up in the intensive care unit. He is awake and alert in no acute distress. The plan is for a right carotid stent tomorrow for greater than 70% stenosis. The patient will need to be on Plavix for 2 weeks and high-dose aspirin. The plan will be for possible mitral valve repair/ replacement following that time. In the interim he remains on a heparin drip for his atrial fibrillation. He remains on a Cardizem drip at 10 mg per hour. Amiodarone drip at 0.5 mg/m. Still having issues with tachycardia in regards to the atrial fibrillation. He is requiring 4 L nasal cannula to maintain O2 saturations in the 90s. Yesterday's chest x-ray revealed some persistent mild central vascular congestion with a new small right pleural effusion. There is cardiomegaly. Blood, sputum and urine cultures reveal no growth. No leukocytosis. Hemoglobin 9.9. Creatinine 1.40. He did have issues with diarrhea. C. difficile screen was negative. Patient was reevaluated today on 09/21/2017, patient is comfortable, in no distress, no shortness of breath no cough no wheezing, patient is scheduled to have carotid artery stenting today. This will be done by Dr. Walker. Continues to have intermittent episodes of tachyarrhythmias with intermittent episodes of sinus bradycardia and atrial fibrillation. Blood pressure is also fluctuating up and down intermittently. No chest x-ray was done today, all his labs were reviewed, creatinine is 1.30 today. Otherwise the labs are unremarkable. Patient was reevaluated today on 09/22/2017, patient was transferred out of the ICU yesterday to a monitor bed on selective, however early evening hours, patient developed an acute episode of bradycardia, cardiac arrest, required CPR. Reintubation and placement on mechanical ventilation. The chest x-ray showed again flash pulmonary edema. Patient was diuresed overnight, he was kept on mechanical ventilation, and his chest x-ray is showing significant improvement compared to yesterday's x-ray just after the code. Patient is arousable, follows simple instructions, no evidence of acute brain injury noted. Patient was seen by cardiology and he was seen by cardiothoracic surgery , and I believe at this point he is scheduled to have mitral valve replacement on Monday. In the meantime I plan to keep the patient on mechanical ventilation , and we'll continue to diurese him. We'll monitor his renal status closely, it will likely improve. Patient may have developed a slight kidney injury secondary to acute tumor necrosis. ABG this morning showed a pO2 of 292 pCO2 of 26 pH of 7.47, WBC count is 12.2 hemoglobin is 9.8. Basic metabolic profile is normal except for BUN 23 creatinine 1.80, and it was 1.60 yesterday. Reevaluated today on 09/23/2017, patient remains on mechanical ventilation, his ventilator settings are basically the same, cut down his FiO2 to 45%, patient is arousable, follows simple instructions, chest x-ray is showing mild pulmonary edema, much improved compared to the initial chest x-ray at the time of his intubation. Patient is receiving nutritional support, via nasogastric tube. ABG today showed a pO2 of 119 pCO2 of 32 pH of 7.45. CBC is relatively normal hemoglobin however is 9.3. Potassium is low at 3.4 being corrected. Renal profile is slightly better, BUN is 23 creatinine is 1.70. Patient was reevaluated today on 09/24/2017, remains on mechanical ventilation, his ventilator settings are basically the same, remains on FiO2 of 45%. Chest x -ray showed cardiomegaly, bibasilar atelectasis, but no clear-cut evidence of pneumonia. Improved aeration in both lungs was noted compared to the chest x- ray few days ago. His sputum came back positive for Enterobacter cloaca and Klebsiella oxytoca, and his urine came back positive for E. coli. His antibiotics were switched to imipenem to cover for all of the above. On 09/25/2017 patient seen post mitral valve replacement, modified Albert maze cryoablation, and exclusion of the left atrial appendage. Patient is intubated and sedated on mechanical ventilation with the vent settings assist control mode with a rate of 12, tidal volume 500, FiO2 100%, and PEEP of 5. Intraoperatively he received 1 unit of packed red blood cells for hemoglobin of 7.0. Patient has 2 mediastinal chest tubes that are Y-connected together, there is about 35 mL of sanguinous output in the atrium collection chamber. Patient's rhythm is sinus with a rate of any BPM. Patient has epicardial wires , connected to a temporary external pacemaker, with settings of AAI with a rate of 80 BPM. PA pressures of 48/25, with a mean of 29. The cardiac output and index are 4.5 and 2.4 respectively. Maintenance fluids are LR at 50 ML per hour , clevidipine is currently running at 2 mg per hour, Primacor is infusing at 0.2 mics per kilo per minute, and nitroglycerin at 5 mics per minute. Microbiology showed a sputum culture from 09/22/2017 positive for Enterobacter o 'clock K and Klebsiella oxytoca, and urine cultures positive for E. coli. Patient remains on a combination of cefazolin and vancomycin per ID service recommendation. This morning's lab work showed a PVC of 5.5, hemoglobin of 9.8 , renal profile improving, BUN of 21, creatinine of 1.5. Postop blood work is pending. Postop blood gases pending as well. Objective - Vital Signs Vital signs: Vital Signs Temp 98.5 F 09/25/17 04:00 Pulse 97 09/25/17 07:00 Resp 14 09/25/17 07:00 BP 82/59 09/24/17 21:00 Pulse Ox 98 09/25/17 07:00 Intake & Output 09/24/17 09/25/17 09/25/17 18:59 06:59 18:59 Intake Total 2230.3 1882.053 312 Output Total 2480 735 1350 Balance -249.7 1147.053 -1038 Weight 70.1 kg 70.6 kg 70.6 kg Intake: IV 691.2 536.2 2 Amiodarone 450 mg In 33.2 Dextrose 5% in Water 250 ml @ 0.5 MG/MIN 16.66 mls /hr IV .Q15H1M [facility] Rx#: [id number] Amiodarone 450 mg In 16.1 Dextrose 5% in Water 250 ml @ 0.5 MG/MIN 16.66 mls /hr IV .Q15H1M [facility] Rx#: [id number] Heparin Sod,Pork in 0.45% 314.4 26.2 NaCl 25,000 unit In 0.45 % NaCl 1 500ml.bag @ 12 UNITS/KG/HR 18.74 mls/hr IV .Q24H [facility] Rx#: [id number] Magnesium Sulfate-D5w Pmx 200 1 gm In Dextrose/Water 1 100ml.bag @ 100 mls/hr IVPB Q1H [facility] Rx#: [id number] Meropenem 500 mg In 50 50 Sodium Chloride 0.9% 50 ml @ 100 mls/hr IVPB Q12HR [facility] Rx#:[id number] Piperacillin-Tazobactam 3 37.5 .375 gm In Dextrose/Water 1 50ml.bag @ 12.5 mls/hr IVPB Q12HR [facility] Rx#: [id number] Sodium Chloride 0.9% 1, 240 260 000 ml @ 20 mls/hr IV . Q24H [facility] Rx#:[id number] Intake, IV Titration 429.1 895.853 Amount Amiodarone 450 mg In 250 249.9 Dextrose 5% in Water 250 ml @ 0.5 MG/MIN 16.66 mls /hr IV .Q15H1M [facility] Rx#: [id number] Heparin Sod,Pork in 0.45% 500 NaCl 25,000 unit In 0.45 % NaCl 1 500ml.bag @ 12 UNITS/KG/HR 18.74 mls/hr IV .Q24H [facility] Rx#: [id number] Propofol 1,000 mg In 179.1 145.953 Empty Bag 1 bag @ Titrate IV .Q0M [facility] Rx#: [id number] Tube Feeding 1020 420 Blood Product 310 Rc As-1 Unit 310 [id number] Other 90 30 Output: Urine 2480 735 350 Estimated Blood Loss 1000 Other: Voiding Method Indwelling Catheter Indwelling Catheter # Voids 0 ABP, PAP, CO, CI - Last Documented Arterial Blood Pressure 135/65 - Exam GENERAL EXAM: Revealed a 62-year-old -[place] male, on mechanical ventilation, sedated HEAD: Normocephalic. EYES: Normal reaction of pupils, equal size. NOSE: Clear with pink turbinates. THROAT: No erythema or exudates. Endotracheal tube seems to be intact. Orogastric tube is also intact. NECK: No masses, no JVD. CHEST: No chest wall deformity. 2 mediastinal chest tubes are Y-connected, there is about 35 mL of sanguinous output in the atrium chest tube collection chamber. Midsternal incision is clean dry and intact LUNGS: Lung sounds are clear, diminished at the bases. CVS: S1 and S2 normal, pericardial rub, regular rate and rhythm. ABDOMEN: No hepatosplenomegaly, normal bowel sounds, no guarding or rigidity. SPINE: No scoliosis or deformity SKIN: No rashes CENTRAL NERVOUS SYSTEM: No focal deficits, tone is normal in all 4 extremities. EXTREMITIES: There is no peripheral edema. No clubbing, no cyanosis. Peripheral pulses are intact. - Labs CBC & Chem 7: 09/25/17 03:40 09/25/17 03:40 Labs: Abnormal Lab Results - Last 24 Hours (Table) 09/24/17 09/25/17 09/25/17 Range/Units 15:05 03:40 03:40 RBC 3.58 L (4.30-5.90) m/uL Hgb 9.8 L (13.0-17.5) gm/dL Hct 33.0 L (39.0-53.0) % MCHC 29.8 L (31.0-37.0) g/dL RDW 16.2 H (11.5-15.5) % BUN 21 H (9-20) mg/dL Creatinine 1.50 H (0.66-1.25) mg/dL Phosphorus (2.5-4.5) mg/dL AST 15 L (17-59) U/L Albumin 3.1 L (3.5-5.0) g/dL TSH 5.510 H (0.465-4.680) mIU/L Crossmatch See Detail 09/25/17 Range/Units 03:40 RBC (4.30-5.90) m/uL Hgb (13.0-17.5) gm/dL Hct (39.0-53.0) % MCHC (31.0-37.0) g/dL RDW (11.5-15.5) % BUN (9-20) mg/dL Creatinine (0.66-1.25) mg/dL Phosphorus 4.8 H (2.5-4.5) mg/dL AST (17-59) U/L Albumin (3.5-5.0) g/dL TSH (0.465-4.680) mIU/L Crossmatch Microbiology - Last 24 Hours (Table) 09/22/17 06:59 Blood Culture - Preliminary Blood No Growth after 72 hours 09/22/17 09:10 Gram Stain - Final Sputum Sputum Culture - Final Enterobacter cloacae Klebsiella oxytoca Assessment and Plan Plan: Assessment: Severe mitral regurgitation, with recurrent episodes of systolic congestive heart failure, status post mitral valve replacement, biatrial modified Albert maze procedure and exclusion of the left atrial appendix, postop day 0 Recurrent episodes of hypoxic respiratory failure requiring intubation and mechanical ventilation, mostly secondary to mitral valve disease, and the patient is developing flash pulmonary edema is intermittently. Considering the significant improvement of the chest x-ray after diuresis, this is clearly a cardiogenic pulmonary edema, not ARDS, and not pneumonia. Atrial fibrillation/RVR, currently in sinus rhythm. Intermittent sinus bradycardia History of CAD with previous stent placement History of COPD History of essential hypertension History of depression Peripheral vascular occlusive disease Hypothyroidism Hypertensive nephrosclerosis with chronic kidney disease, stage III Acute cellulitis and dry gangrene of the left big toe, status post debridement Bilateral carotid disease, worse on the right with a greater than 70% obstruction, angiogram showed the obstruction was nonsignificant. Positive sputum cultures and urine cultures as noted above in my previous documentation, and his antibiotics were switched to Merrem, it will cover his Enterobacter, Klebsiella, and E. coli. Recommendation: Postop chest x-ray has been reviewed by Dr. Potts, the ET tube is in the appropriate position, vent settings have been adjusted to assist control mode with a rate of 14, tidal volume of 550, FiO2 60% and PEEP of 5. Continue close hemodynamic monitoring, awaiting the results of postop blood work. Continue Primacor, nitroglycerin clevidipine drip. Patient is hemodynamically stable. Further recommendations to follow. Critical care time 35 minutes. I performed a history & physical examination of the patient and discussed their management with my nurse practitioner, Kanchan Rizzo. I reviewed the nurse practitioner's note and agree with the documented findings and plan of care. Lung sounds are diminished. The findings and the impression was discussed with the patient. I attest to the documentation by the nurse practitioner. Time with Patient: Greater than 30
[2017-09-25 15:00] LABS: Ionized Calcium 4.6 mg/dL (4.5-5.3)
[2017-09-25 15:01] LABS: Basophils % (A) 0 %; Eosinophils # (A) 0.1 k/uL (0-0.7); Eosinophils % (A) 2 %; HCT 20.7 % (39.0-53.0); Hypochromasia Marked; Lymphocytes # (A) 1.1 k/uL (1.0-4.8); Lymphocytes % (A) 18 %; MCHC 30.6 g/dL (31.0-37.0); MCV 91.3 fL (80.0-100.0); Mean Platelet Volume 8.6; Monocytes # (A) 0.3 k/uL (0-1.0); Monocytes % (A) 4 %; Neutrophils # (A) 4.5 k/uL (1.3-7.7); Neutrophils % (A) 73 %; Poikilocytosis Slight; RBC 2.27 m/uL (4.30-5.90); RDW 15.6 % (11.5-15.5); WBC 6.2 k/uL (3.8-10.6)
[2017-09-25 15:04] LABS: INR 1.2 (<1.2); Partial Thromboplastin Time 31.8 sec (22.0-30.0); Prothrombin Time 11.8 sec (9.0-12.0)
[2017-09-25 15:09] LABS: ALT 38 U/L (21-72); AST 79 U/L (17-59); Albumin 2.8 g/dL (3.5-5.0); Alkaline Phosphatase 35 U/L (38-126); Anion Gap 10 mmol/L; Blood Urea Nitrogen 17 mg/dL (9-20); Calcium 7.5 mg/dL (8.4-10.2); Carbon Dioxide 22 mmol/L (22-30); Chloride 108 mmol/L (98-107); Glucose 87 mg/dL (74-99); HGB 6.3 gm/dL (13.0-17.5); Platelet Count 113 k/uL (150-450); Potassium 4.1 mmol/L (3.5-5.1); Sodium 140 mmol/L (137-145); Total Bilirubin 0.9 mg/dL (0.2-1.3); Total Protein 4.8 g/dL (6.3-8.2)
[2017-09-25 15:14] LABS: Glucose,Whole Blood 98 mg/dL (75-99)
[2017-09-25] MEDS: ceFAZolin IN SWFI 2 GM/20 ML SYRINGE IVP SCH ×2 (16:00→23:39)
[2017-09-25 16:19] LABS: Glucose,Whole Blood 107 mg/dL (75-99)
[2017-09-25 16:54] LABS: Basophils % (A) 0 %; Eosinophils # (A) 0.3 k/uL (0-0.7); Eosinophils % (A) 3 %; HCT 29.9 % (39.0-53.0); Hypochromasia Moderate; Lymphocytes # (A) 1.4 k/uL (1.0-4.8); Lymphocytes % (A) 15 %; MCH 28.5 pg (25.0-35.0); MCHC 30.5 g/dL (31.0-37.0); MCV 93.5 fL (80.0-100.0); Mean Platelet Volume 9.4; Monocytes # (A) 0.4 k/uL (0-1.0); Monocytes % (A) 4 %; Neutrophils # (A) 6.9 k/uL (1.3-7.7); Neutrophils % (A) 75 %; Platelet Count 136 k/uL (150-450); RBC 3.19 m/uL (4.30-5.90); RDW 15.9 % (11.5-15.5); WBC 9.2 k/uL (3.8-10.6)
[2017-09-25 16:55] LABS: HGB 9.1 gm/dL (13.0-17.5)
[2017-09-25 17:14] LABS: Glucose,Whole Blood 102 mg/dL (75-99)
[2017-09-25] MEDS: ACETAMINOPHEN IV (For NPO) 1,000 MG in EMPTY BAG 1 BAG IVPB SCH ×2 (18:14→23:37)
--- NOTE | 2017-09-25 18:23 | OP ---
OPERATIVE REPORT DATE OF PROCEDURE: 09/25/2017. SURGEON: Dr. Lashae Huddleston. AUTOMATIC CHIEF: Desean Bhatti Nurse practitioner, and Prieto MURO . PREOPERATIVE DIAGNOSES: 1. Rheumatic mitral valve disorder. 2. Mild aortic valve regurgitation. 3. Mild to moderate left ventricular dysfunction. 4. Mechanical ventilation. 5. Pneumonia. 6. Peripheral vascular disease with right toe gangrene. 7. Chronic atrial fibrillation. 8. Chronic obstructive pulmonary disease. 9. Chronic kidney disease. 10.Peripheral vascular disease. 11.Moderate to severe right ICA stenosis. 12. CAD S/P remote LAD stenting. POSTOPERATIVE DIAGNOSES: 1. Rheumatic mitral valve disorder. 2. Mild aortic valve regurgitation. 3. Mild to moderate left ventricular dysfunction. 4. Mechanical ventilation. 5. Pneumonia. 6. Peripheral vascular disease with right toe gangrene. 7. Chronic atrial fibrillation. 8. Chronic obstructive pulmonary disease. 9. Chronic kidney disease. 10.Peripheral vascular disease. 11.Moderate to severe right ICA stenosis. 12. CAD S/P remote LAD stenting. PROCEDURE PERFORMED: 1. Chordal preserving mitral valve replacement using a 27 mm pericardial Magna ease. 2. Biatrial full Albert maze procedure using radiofrequency and cryoablation. 3. Exclusion of the left atrial appendage using a 40 mm AtriClip. 4. Transesophageal echocardiogram and epiaortic scanning. INDICATION FOR THE PROCEDURE: The patient is a 62-year-old gentleman who essentially was admitted for dry gangrene of his toe. He had at some point required mechanical ventilation for flash pulmonary edema. Workup included a 2D echo and a CLARE that showed evidence of mitral valve regurgitation that was severe and degree of mitral valve stenosis. Eventually was extubated, however, required re-intubation several days later with the same clinical presentation. He was in atrial fibrillation and he was been anticoagulated and on amiodarone. Cardiac catheterization showed normal coronaries. The patient had a duplex carotid scan that raised the suspicion of severe right ICA stenosis and that was also suspicious on a CTA done. The patient was scheduled for a right ICA stenting. However, upon performing the angiogram, it appeared that the stenosis was 70% and no stent was performed. The patient required re-intubation for the 3rd time at that time. It looks like it might have been related to a very slow heart rate. However, we are faced with a gentleman who is ventilator dependent at this point and requiring mitral valve surgery. Discussion followed with the air table operator and his daub color mixer as well as the primary care physician. Despite evidence of positive ET tube secretions for Gram negatives, we have at this point, proper antibiotic coverage with improvement in his clinical picture. His kidney function also is improving and we are proceeding with mitral valve replacement as his mitral valve seems to have rheumatic changes. We will be also performing a biatrial Albert maze procedure. Increased risks of the procedure calculated by STS were discussed with the patient before he was intubated and his cousin. They understood them and agreed to proceed. The patient has peripheral vascular disease with right toe gangrene and no evidence of infection at that time and has been followed by vascular surgery. DESCRIPTION OF THE PROCEDURE: The patient was brought from the ICU to the operating room where a right internal jugular Pitman-Carson catheter and right radial artery were placed. PA pressure was 50/25. Cardiac index was 2. General endotracheal anesthesia was induced uneventfully. He received vancomycin and cefazolin intravenously preoperatively. The chest, abdomen and both lower extremities were prepped and draped using ChloraPrep. Ioban was used to cover the skin. Transesophageal echocardiogram showed actually moderate evident dysfunction with severe inferior hypokinesia and evidence of severe mitral valve regurgitation with also some degree of mitral stenosis. The aortic valve had mild regurgitation. The left atrial appendage was clear of clots. A midline sternotomy was performed and no bone wax was used. The Miriam mitral retractor was used for aid in exposing the mitral valve. Both pleura remained intact. Mediastinal fat was transected between 2 ties. The pericardium was opened in an inverted T-fashion and a pericardial cradle was created after two strips of pericardium for eventually reenforcement of the right atrial closure. Epiaortic scanning revealed some intimal thickening but no protruding atheroma. Heart appeared to be mildly enlarged. I could feel and appreciate the stent in the left anterior descending artery and that was spared throughout the whole procedure. After placement of respective pledgeted pursestring, after systemic heparinization, aortic cannulation with a 21-[place] soft flow cannula, direct SVC cannulation with a 28 -[place] right angle cannula and IVC cannulation at the junction with the right atrium with a 32- [place] cannula was performed. Antegrade cardioplegia was placed. We were not successful in passing retrograde cardioplegia catheter. Both vena cava were encircled. Cardiopulmonary bypass was initiated with the heart empty and beating. We proceeded at performing bilateral pulmonary vein isolation using the AtriCure radiofrequency clamp. Subsequently, the aorta was clamped and myocardial protection was achieved with initial dose of 1 L of antegrade cold blood cardioplegia. All subsequent doses were given antegrade at 15 minutes intervals. We completed at this point, part of the left-sided Albert Maze by making an opening in the tip of the left atrial appendage and inserting 1 leg of clamp into the left atrial appendage and to the left precarinal vein with radiofrequency application at that level. Subsequently, the left atrial appendage was excluded with a 40 mm AtriClip and the opening was reinforced with a pledgeted 4-0 Prolene. Standard left atriotomy was performed after developing the interatrial groove and mitral retractor was placed to aid in exposure. It was a bit hard to see the mitral valve. Once exposed, it appeared to be evidently rheumatic with commissure effusion. Calcification of the anterior as well as the posterior leaflet with a very thickened shortened chordae. I proceeded at excising a good part of the anterior leaflet and subvalvular apparatus and developed a button out of it and anchored to the anulus with a 2-0 Tycron pledgeted suture that were used for the valve also. The whole posterior leaflet was preserved in situ. A total of 16 Tycron 2-0 pledgetted suture with pledgets on the atrial side were placed all around the mitral anulus. The mitral valve was sized to a 27 mm magna ease, which was selected, prepared on the back table, cinched and brought in and all the sutures were passed in its cuff symmetrically respecting the LVOT. There were no struts posteriorly. The valve was seated nicely intra-annularly and the needles were cut and the sutures tied using the core knot device. Thorough irrigation performed. Right angle testing elucidated no space between the valve and the anulus. The CO2 was flowing over the field as the left atrium was opened. Subsequently, the left atrium was closed using a running Prolene 3 0 pledgeted on each corner. Before completing the left atrial closure, de-airing maneuvers were followed. Subsequently, both cava were snared and an oblique right atriotomy was performed. I completed the right-sided Maze by ablating to the SVC and into the IVC and then into the right atrial appendage and applying a cryoablation from the atriotomy to the tricuspid anulus at around 2:00 position. The Pitman-Carson was left in situ. Subsequently, the right atriotomy was closed using a running Prolene 4-0 reinforced by 2 strips of autologous pericardium that I used. The patient was loaded with Primacor and was given lidocaine and magnesium as we unclamped the aorta. After a period of reperfusion and guiding de-airing with a T, we were able to wean off the bypass on low-dose Primacor and Levophed. The mitral valve was functioning nicely with no paravalvular leak. The aortic valve regurgitation was unchanged and was judged to be mild. The left ventricle function appeared to be much improved. With that, test dose then full dose protamine was given. Decannulation followed. The IVC cannulation site was reinforced with Prolene. Two substernal chest tubes were placed. The pericardium was approximated over the aorta. After ensuring adequate hemostasis and hemodynamic and after correct sponge, instrument, and needle count, the sternum was approximated using 5 figure-of- eight pionneer cables after interposing fibrillar between the sternal edges. Thorough irrigation with cefazolin followed. The rest of the closure proceeded in layers. Skin glue was applied. The patient received 1 unit of packed red blood cells and 250 mL of Cell Saver blood. He was transferred to the ICU atrially paced at 80 with good AV conduction with mean arterial pressure of 60, PA pressure 29/11 on low-dose Primacor and Levophed. MMODL / IJN: [id number] / MTDD
[2017-09-25 18:26] LABS: Glucose,Whole Blood 101 mg/dL (75-99)
[2017-09-25] MEDS: ALBUMIN HUMAN 5% 250 ML in EMPTY BAG 1 BAG IVPB PRN ×2 (19:07→19:23)
[2017-09-25 19:14] LABS: Basophils # (A) 0.1 k/uL (0-0.2); Basophils % (A) 1 %; Eosinophils # (A) 0.4 k/uL (0-0.7); Eosinophils % (A) 5 %; HGB 8.9 gm/dL (13.0-17.5); Hypochromasia Moderate; Lymphocytes # (A) 1.7 k/uL (1.0-4.8); Lymphocytes % (A) 19 %; MCH 28.5 pg (25.0-35.0); MCHC 30.6 g/dL (31.0-37.0); MCV 93.1 fL (80.0-100.0); Monocytes # (A) 0.4 k/uL (0-1.0); Monocytes % (A) 4 %; Neutrophils % (A) 69 %; Platelet Count 140 k/uL (150-450); Poikilocytosis Slight; RBC 3.12 m/uL (4.30-5.90); RDW 15.9 % (11.5-15.5); WBC 8.7 k/uL (3.8-10.6)
[2017-09-25 20:16] LABS: Glucose,Whole Blood 100 mg/dL (75-99)
--- NOTE | 2017-09-25 21:38 | PN ---
PROGRESS NOTE DATE OF SERVICE: 09/25/2017 Patient is seen status post mitral valve replacement. Patient remains intubated and sedated on mechanical ventilation. VITAL SIGNS: Temperature of 98.6, pulse 97, respiration 14, blood pressure 82/59, oxygen saturation 98%. GENERAL: Patient is a 62-year-old -[place] male who is mechanically ventilated and sedated. HEENT: Atraumatic, normocephalic. Pupils react sluggishly to light, but they are equal in size. Neck is supple. No goiter or lymphadenopathy. JVD is negative. No carotid bruit heard. Lungs are clear to auscultate. No rales, rhonchi or wheezes. CHEST: Patient has 2 mediastinal chest tubes with some sanguineous discharge. Sternal incision is dry and clean. Lungs are clear to auscultate with decreased breath sounds. Heart is regular rate, rhythm without any murmurs or gallop rhythm. Abdomen is soft, nontender, nondistended. Bowel sounds positive. EXTREMITIES: No edema, clubbing or cyanosis. Skin is without any rashes or pigmentation. NEUROLOGICAL EXAMINATION: Patient moves all 4 extremities. There is no focal deficit. I cannot complete the evaluation. LABS: CBC: White blood count of 5.5, hemoglobin 9.8, hematocrit 33, and platelet count of 292. Chemical profile: Sodium 139, potassium 4.0, chloride 103, bicarb 24, BUN of 21, creatinine 1.50, glucose 96. ASSESSMENT: 1. Severe mitral regurgitation. Patient is status post mitral valve replacement. 2. Recurrent systolic congestive heart failure secondary to severe mitral regurgitation. 3. Acute hypoxemic respiratory failure requiring intubation and mechanical ventilation, most likely secondary to mitral valve disease and flash pulmonary edema. 4. Atrial fibrillation. Currently in sinus rhythm. 5. History of coronary artery disease, status post stent placement. 6. Chronic obstructive pulmonary disease. 7. Peripheral vascular occlusive disease. 8. Hypothyroidism. 9. Acute cellulitis and dry gangrene of the left big toe, status post debridement. 10.Bilateral carotid stenosis; 70% obstruction. PLAN: To continue with the mechanical ventilation. Continue with hemodynamic monitoring. Patient is currently on Primacor and nitroglycerin drip. Further recommendations and treatment plan per the Surgery. MMODL / IJN: [id number] /
[2017-09-25 22:20] LABS: ABG Base Excess -4.4 mmol/L; ABG HCO3 21 mmol/L (21-25); ABG Oxygen Saturation 96.7 % (94-97); ABG PCO2 40 mmHg (35-45); ABG PH 7.34 (7.35-7.45); ABG PO2 94 mmHg (83-108); ABG TCO2 23 mmol/L (19-24)
[2017-09-25 22:57] LABS: Glucose,Whole Blood 120 mg/dL (75-99)
[2017-09-25] MEDS: HEPARIN SODIUM,PORCINE 5,000 UNIT/ML 1 ML VIAL SQ SCH (23:41)
[2017-09-26] LABS: Glucose,Whole Blood 123 mg/dL (75-99)
[2017-09-26 01:10] LABS: Glucose,Whole Blood 121 mg/dL (75-99)
[2017-09-26 03:01] LABS: Glucose,Whole Blood 114 mg/dL (75-99)
[2017-09-26 04:44] LABS: Glucose,Whole Blood 113 mg/dL (75-99)
[2017-09-26 04:59] LABS: Anisocytosis Slight; Basophils # (A) 0.1 k/uL (0-0.2); Basophils % (A) 1 %; Eosinophils # (A) 0.4 k/uL (0-0.7); Eosinophils % (A) 6 %; HCT 26.9 % (39.0-53.0); HGB 8.3 gm/dL (13.0-17.5); Hypochromasia Moderate; Lymphocytes # (A) 1.4 k/uL (1.0-4.8); Lymphocytes % (A) 18 %; MCH 28.2 pg (25.0-35.0); MCHC 30.9 g/dL (31.0-37.0); MCV 91.4 fL (80.0-100.0); Mean Platelet Volume 9.6; Monocytes # (A) 0.3 k/uL (0-1.0); Monocytes % (A) 4 %; Neutrophils # (A) 5.3 k/uL (1.3-7.7); Neutrophils % (A) 69 %; Platelet Count 160 k/uL (150-450); Poikilocytosis Moderate; RBC 2.94 m/uL (4.30-5.90); RDW 16.2 % (11.5-15.5); WBC 7.7 k/uL (3.8-10.6)
[2017-09-26 05:01] LABS: INR 1.1 (<1.2); Prothrombin Time 10.9 sec (9.0-12.0)
[2017-09-26 05:03] LABS: Ionized Calcium 4.9 mg/dL (4.5-5.3)
[2017-09-26 05:06] LABS: ALT 29 U/L (21-72); AST 81 U/L (17-59); Albumin 3.2 g/dL (3.5-5.0); Alkaline Phosphatase 41 U/L (38-126); Anion Gap 10 mmol/L; Blood Urea Nitrogen 19 mg/dL (9-20); Calcium 8.5 mg/dL (8.4-10.2); Carbon Dioxide 22 mmol/L (22-30); Chloride 106 mmol/L (98-107); Glucose 109 mg/dL (74-99); Potassium 5.3 mmol/L (3.5-5.1); Sodium 138 mmol/L (137-145); Total Bilirubin 0.5 mg/dL (0.2-1.3); Total Protein 5.3 g/dL (6.3-8.2)
[2017-09-26] MEDS: LEVOTHYROXINE 25 MCG TAB PO SCH (06:49)
[2017-09-26] MEDS: ACETAMINOPHEN IV (For NPO) 1,000 MG in EMPTY BAG 1 BAG IVPB SCH ×3 (06:49→18:56)
[2017-09-26 06:58] LABS: Glucose,Whole Blood 114 mg/dL (75-99)
--- NOTE | 2017-09-26 07:14 | XR ---
EXAMINATION TYPE: XR chest 1V portable DATE OF EXAM: 09/26/2017 Comparison: 09/25/2017 Clinical History: 62-year-old male Post Operative Cardiac Surgery Findings: Right IJ Hum[place]-Carosn catheter remains in place. Tip is now in the proximal right main pulmonary artery. Mediastinal drains remain in place. Epicardial pacer leads. Median sternotomy wires. Prosthetic card iac valve. Heart mildly enlarged. No appreciable pneumothorax. Increased perihilar and bibasilar dens ities with continued small left pleural effusion. Impression: 1. Interval worsening in pulmonary vascular congestion/interstitial edema. 2. Worsening bibasilar areas of atelectasis and/or consolidation and small left effusion.
[2017-09-26] MEDS: HEPARIN SODIUM,PORCINE 5,000 UNIT/ML 1 ML VIAL SQ SCH ×3 (08:50→23:58)
[2017-09-26] MEDS: ASPIRIN 81 MG PO SCH (08:51)
[2017-09-26] MEDS: CHLORHEXIDINE GLUCONATE 15 ML CUP MUCOUS MEM SCH ×2 (08:51→20:15)
[2017-09-26] MEDS: FUROSEMIDE 10 MG/ML 4 ML VIAL IV SCH (08:52)
[2017-09-26] MEDS: MUPIROCIN 2% OINT 22 GM TUBE TOPICAL SCH ×2 (08:52→22:04)
[2017-09-26] MEDS: NICOTINE 21MG/24HR PATCH TRANSDERM SCH (08:52)
[2017-09-26] MEDS: FLUoxetine HCL 20 MG CAP PO SCH (08:52)
[2017-09-26] MEDS ORDERED: PANTOPRAZOLE 40 MG/10 ML VIAL IVP SCH (09:00)
[2017-09-26] MEDS: ceFAZolin IN SWFI 2 GM/20 ML SYRINGE IVP SCH (09:48)
[2017-09-26] MEDS: hydrALAZINE HCL 25 MG TAB PO SCH ×2 (09:48→22:04)
[2017-09-26] MEDS: MEROPENEM 500 MG in SODIUM CHLORIDE 0.9% 50 ML IVPB SCH ×3 (09:48→23:58)
--- NOTE | 2017-09-26 09:48 | P.VSCSTY ---
Greater Saphenous Vein Mapping This is bilateral lower extremity greater saphenous vein mapping. Date of service 09/14/2017 Vein quality and ultrasound appearance significant edema bilaterally but visualized vein appears fairly normal.. Vein size groin right 5.2 x 4.2 groin left 4.0 x 4.0 High thigh right 5.2 x 5.6 high thigh left 3.5 x 3.4 Mid thigh right 3.0 x 3.2 mid thigh left 2.9 x 2.3 Above-knee right 2.6 x 2.1 above-knee left 3.3 x 1.8 Below knee right 2.6 x 2.1 below-knee left 2.9 x 2.1 Mid calf right 2.2 x 1.8 mid calf left 1.5 x 1.7 Ankle right 2.5 x 1.7 ankle left 2.5 x 2.1 Impression usable bilateral greater saphenous vein. Edema may prove problematic. Vein at the mid calf and ankle level is a bit small bilaterally.
--- NOTE | 2017-09-26 09:52 | P.ARTDOP ---
Arterial Doppler LOWER EXTREMITY ARTERIAL DOPPLER: DATE OF SERVICE: 09/14/2017 Reason for study: Gangrenous toe on left foot and pre-CABG. Doppler waveforms: Multiphasic at the right groin. Atypical at the left femoral and popliteal and below the femoral on the right. Monophasic at the left posterior tibial. Pulse volume recording: []. Pressure gradients: Above the low thigh bilaterally.. Ankle-brachial indices: 0.74 on the right and 0.58 on the left.. Toe pressures: [] on the right, [] on the left Impression: Suspect moderate right fem-pop disease. Moderate to severe left fem -pop disease with possible left iliac component. Clinical correlation recommended..
--- NOTE | 2017-09-26 10:03 | PN ---
PROGRESS NOTE This gentleman underwent mitral valve replacement with a tissue valve with Maze procedure and excision of left atrial appendage. At the time of my evaluation, he is extubated, hemodynamically stable, making some urine. Appears to be in a rhythm which is either sinus or junctional, appears to be regular. He is on a small dose of clevidipine. He is doing remarkably well compared to his preoperative state. Physical exam revealed blood pressure 140/70. There is JVD of 1 cm. S1, S2 heard normally. Short systolic murmur is evident. Lungs reveal bilateral scattered rhonchi. Abdomen is soft. Lower extremities reveal diminished pulses. Plan is to continue current medications, incentive spirometry and pulmonary toilet. MMODL / IJN: [id number] /
[2017-09-26 10:10] LABS: Glucose,Whole Blood 151 mg/dL (75-99)
--- NOTE | 2017-09-26 11:17 | P.PN ---
Addendum entered and electronically signed by William Bhatti, APPLIED RESEARCH DIRECTOR-C 09/26/17 12: 11: Mediastinal chest tubes evacuating thin serosanguineous drainage. No air leak present. Chest tubes remained to low continuous wall suction -20 cm H2O. 150 mm output in the last 8 hours, 370 mL output since surgery. Original Note: <William Bhatti - Last Filed: 09/26/17 11:15> Subjective Progress Note Date: 09/26/17 Principal diagnosis: Severe mitral valve regurgitation, rheumatic traumatic atrial valve disorder, mild aortic valve regurgitation, mild to moderate left ventricular dysfunction. Previous history of chronic persistent atrial fibrillation history of Eliquis for anticoagulation, COPD depression, peripheral artery disease with right toe gangrene and moderate to severe right ICA stenosis, chronic nicotine dependence , chronic kidney disease stage III, hypertension, coronary artery disease with previous stent placement, GERD, hypothyroidism, preoperative pneumonia with sputum culture positive for Enterobacter cloacae and Klebsiella oxytoca, preoperative urinary tract infection urine culture positive for Escherichia coli. POD #1, quarter preserving mitral valve replacement using a #27 mm pericardial Magna ease, biatrial 4 Albert maze procedure using radiofrequency and cryoablation , exclusion of the left atrial appendage using a 40 mm Atriclip, intraoperative transesophageal echocardiogram and epi-aortic scanning. Status post cardiac catheterization on 09/25/2017 demonstrating a patent LAD stent and no significant coronary stenosis. Status post neck on 09/18/2017 CTA demonstrating severe right internal carotid artery estimated at greater than 70%, moderate to severe narrowing of the proximal left internal carotid artery between 50-69%. Status post angiogram on 09/21/2017, no stent placement to the carotid arteries , right carotid approximately 70% stenosis, left carotid approximately 50% stenosis per angiogram. Status post cardiac arrest, reintubation for flash pulmonary edema. Patient is sitting up to the bedside chair. He is in no acute distress. He is awake, alert and oriented 3. He rates his pain 2 out of 10 on the pain scale 2 his chest tube insertion sites. He is on 2 L nasal cannula with oxygen saturation is 99%. He is achieving 750 mL on his incentive spirometry with much encouragement. Objective - Vital Signs Vital signs: Vital Signs Temp 96.8 F L 09/25/17 16:07 Pulse 68 09/26/17 08:30 Resp 11 L 09/26/17 08:30 BP 124/62 09/26/17 08:30 Pulse Ox 97 09/26/17 08:30 Intake & Output 09/25/17 09/26/17 09/26/17 18:59 06:59 18:59 Intake Total 4217.670 6390.921 50 Output Total 1898 1148 100 Balance -867.350 -15.079 -50 Weight 70.6 kg 75.6 kg Intake: IV 270.0 1059.0 50 ACETAMINOPHEN IV (For NPO 100 ) 1,000 mg In Empty Bag 1 bag @ 400 mls/hr IVPB Q6HR [facility] Rx#:[id number] Albumin Human 5% 250 ml 250 In Empty Bag 1 bag @ 250 mls/hr IVPB Q1HR PRN Rx#: [id number] Meropenem 500 mg In 100 Sodium Chloride 0.9% 50 ml @ 100 mls/hr IVPB Q12HR [facility] Rx#:[id number] Milrinone-D5w Pmx 20 mg 18.0 4.5 In Dextrose/Water 1 100ml .bag @ Per Protocol IV . Q0M [facility] Rx#:[id number] lactated ringers 250 600 50 milrinone 4.5 Intake, IV Titration 140.650 73.921 Amount Clevidipine Butyrate 25 12.400 27.166 mg In Empty Bag 1 bag @ 1 MG/HR 2 mls/hr IV .Q24H [facility] Rx#:[id number] Insulin Regular 100 unit 2.008 In Sodium Chloride 0.9% 100 ml @ Per Protocol IV .Q0M [facility] Rx#:[id number] Milrinone-D5w Pmx 20 mg 32.428 In Dextrose/Water 1 100ml .bag @ Per Protocol IV . Q0M [facility] Rx#:[id number] Norepinephrine 4 mg In 12.319 Sodium Chloride 0.9% 250 ml @ Titrate IV .Q0M [facility] Rx#:[id number] Propofol 1,000 mg In 28.25 Empty Bag 1 bag @ Titrate IV .Q0M [facility] Rx#: [id number] Propofol 1,000 mg In 100 Empty Bag 1 bag @ Titrate IV .Q0M [facility] Rx#: [id number] Blood Product 620 Rc As-1 Unit 310 [id number] Rc As-1 Unit 310 [id number] Output: Chest Tube Drainage 203 287 Chest Tube Mediastinal 203 287 Urine 695 860 100 Stool 1 Estimated Blood Loss 1000 Other: Voiding Method Indwelling Catheter Indwelling Catheter # Voids 0 # Bowel Movements 0 ABP, PAP, CO, CI - Last Documented Arterial Blood Pressure 131/55 Pulmonary Artery Pressure 34/16 Cardiac Output 4.4 Cardiac Index 2.3 - Constitutional Constitutional Comment(s): Cachectic General appearance: Present: cooperative, no acute distress, thin - EENT Eyes: Present: PERRLA ENT: Present: hearing grossly normal - Neck Details: No JVD, no lymphadenopathy, neck is supple. Right IJ Cordis with Goldsmith-Carson catheter in place. - Respiratory Details: Lung sounds with scattered rhonchi throughout, diminished to his bilateral bases. Respirations are symmetrical and nonlabored. Oxygen saturation is are 99% on 2 L nasal cannula. He is achieving 750 mL on his incentive spirometry. He was extubated last evening 09/25/2017 at 10:23 PM. - Cardiovascular Details: Regular rhythm and rate. S1 and S2 present, negative for S3, gallop or murmur. Sternum is stable. Bedside telemetry showing junctional rhythm heart rate 67. Atrial and ventricular epicardial pacemaker wires in place to back up pacemaker generator. No edema present. Knee-high SARMAD hose in place to his right lower extremity, sequential compression devices in place to his bilateral lower extremities. Heart hugger is in place and he is demonstrating appropriate use with encouragement. - Gastrointestinal Gastrointestinal Comment(s): Abdomen is soft, nontender and nondistended. Hypoactive bowel sounds all 4 abdominal quadrants. He is tolerating a clear liquid diet. - Genitourinary Genitourinary Comment(s): Beaulieu catheter for accurate I&O. Adequate urine output. 570 mL output in the last 8 hours of clear yellow urine. - Integumentary Integumentary Comment(s): Midline sternal incision clean dry and well approximated. No drainage or redness present. Dermabond dressing clean and dry. Skin is warm, and dry. Dry gangrenous left big toe and left second toe. Dressing clean and dry. DuoDERM clean and dry to his coccyx and left scapular area. - Neurologic Neurologic: Present: CNII-XII intact - Musculoskeletal Musculoskeletal: Present: generalized weakness, strength equal bilaterally - Psychiatric Psychiatric: Present: A&O x's 3, appropriate affect, intact judgment & insight - Allied health notes Allied health notes reviewed: nursing - Labs CBC & Chem 7: 09/26/17 04:30 09/26/17 04:30 Labs: Abnormal Lab Results - Last 24 Hours (Table) 09/24/17 09/25/17 09/25/17 Range/Units 15:05 14:31 14:45 RBC 2.27 L (4.30-5.90) m/uL Hgb 6.3 L* D (13.0-17.5) gm/dL Hct 20.7 L (39.0-53.0) % MCHC 30.6 L (31.0-37.0) g/dL RDW 15.6 H (11.5-15.5) % Plt Count 113 L D (150-450) k/uL INR (<1.2) APTT (22.0-30.0) sec ABG pH 7.29 L (7.35-7.45) ABG pCO2 47 H (35-45) mmHg ABG pO2 184 H (83-108) mmHg ABG O2 Saturation 99.7 H (94-97) % Potassium (3.5-5.1) mmol/L Chloride (98-107) mmol/L Creatinine (0.66-1.25) mg/dL Glucose (74-99) mg/dL POC Glucose (mg/dL) (75-99) mg/dL Calcium (8.4-10.2) mg/dL Magnesium (1.6-2.3) mg/dL AST (17-59) U/L Alkaline Phosphatase (38-126) U/L Total Protein (6.3-8.2) g/dL Albumin (3.5-5.0) g/dL Crossmatch See Detail 09/25/17 09/25/17 09/25/17 Range/Units 14:45 14:45 16:17 RBC (4.30-5.90) m/uL Hgb (13.0-17.5) gm/dL Hct (39.0-53.0) % MCHC (31.0-37.0) g/dL RDW (11.5-15.5) % Plt Count (150-450) k/uL INR 1.2 H (<1.2) APTT 31.8 H (22.0-30.0) sec ABG pH (7.35-7.45) ABG pCO2 (35-45) mmHg ABG pO2 (83-108) mmHg ABG O2 Saturation (94-97) % Potassium (3.5-5.1) mmol/L Chloride 108 H (98-107) mmol/L Creatinine (0.66-1.25) mg/dL Glucose (74-99) mg/dL POC Glucose (mg/dL) 107 H (75-99) mg/dL Calcium 7.5 L (8.4-10.2) mg/dL Magnesium 2.5 H (1.6-2.3) mg/dL AST 79 H (17-59) U/L Alkaline Phosphatase 35 L (38-126) U/L Total Protein 4.8 L (6.3-8.2) g/dL Albumin 2.8 L (3.5-5.0) g/dL Crossmatch 09/25/17 09/25/17 09/25/17 Range/Units 16:20 17:11 18:14 RBC 3.19 L (4.30-5.90) m/uL Hgb 9.1 L D (13.0-17.5) gm/dL Hct 29.9 L (39.0-53.0) % MCHC 30.5 L (31.0-37.0) g/dL RDW 15.9 H (11.5-15.5) % Plt Count 136 L (150-450) k/uL INR (<1.2) APTT (22.0-30.0) sec ABG pH (7.35-7.45) ABG pCO2 (35-45) mmHg ABG pO2 (83-108) mmHg ABG O2 Saturation (94-97) % Potassium (3.5-5.1) mmol/L Chloride (98-107) mmol/L Creatinine (0.66-1.25) mg/dL Glucose (74-99) mg/dL POC Glucose (mg/dL) 102 H 101 H (75-99) mg/dL Calcium (8.4-10.2) mg/dL Magnesium (1.6-2.3) mg/dL AST (17-59) U/L Alkaline Phosphatase (38-126) U/L Total Protein (6.3-8.2) g/dL Albumin (3.5-5.0) g/dL Crossmatch 09/25/17 09/25/17 09/25/17 Range/Units 18:58 20:15 22:18 RBC 3.12 L (4.30-5.90) m/uL Hgb 8.9 L (13.0-17.5) gm/dL Hct 29.0 L (39.0-53.0) % MCHC 30.6 L (31.0-37.0) g/dL RDW 15.9 H (11.5-15.5) % Plt Count 140 L (150-450) k/uL INR (<1.2) APTT (22.0-30.0) sec ABG pH 7.34 L (7.35-7.45) ABG pCO2 (35-45) mmHg ABG pO2 (83-108) mmHg ABG O2 Saturation (94-97) % Potassium (3.5-5.1) mmol/L Chloride (98-107) mmol/L Creatinine (0.66-1.25) mg/dL Glucose (74-99) mg/dL POC Glucose (mg/dL) 100 H (75-99) mg/dL Calcium (8.4-10.2) mg/dL Magnesium (1.6-2.3) mg/dL AST (17-59) U/L Alkaline Phosphatase (38-126) U/L Total Protein (6.3-8.2) g/dL Albumin (3.5-5.0) g/dL Crossmatch 09/25/17 09/25/17 09/26/17 Range/Units 22:54 23:58 01:08 RBC (4.30-5.90) m/uL Hgb (13.0-17.5) gm/dL Hct (39.0-53.0) % MCHC (31.0-37.0) g/dL RDW (11.5-15.5) % Plt Count (150-450) k/uL INR (<1.2) APTT (22.0-30.0) sec ABG pH (7.35-7.45) ABG pCO2 (35-45) mmHg ABG pO2 (83-108) mmHg ABG O2 Saturation (94-97) % Potassium (3.5-5.1) mmol/L Chloride (98-107) mmol/L Creatinine (0.66-1.25) mg/dL Glucose (74-99) mg/dL POC Glucose (mg/dL) 120 H 123 H 121 H (75-99) mg/dL Calcium (8.4-10.2) mg/dL Magnesium (1.6-2.3) mg/dL AST (17-59) U/L Alkaline Phosphatase (38-126) U/L Total Protein (6.3-8.2) g/dL Albumin (3.5-5.0) g/dL Crossmatch 09/26/17 09/26/17 09/26/17 Range/Units 02:59 04:30 04:30 RBC 2.94 L (4.30-5.90) m/uL Hgb 8.3 L (13.0-17.5) gm/dL Hct 26.9 L (39.0-53.0) % MCHC 30.9 L (31.0-37.0) g/dL RDW 16.2 H (11.5-15.5) % Plt Count (150-450) k/uL INR (<1.2) APTT (22.0-30.0) sec ABG pH (7.35-7.45) ABG pCO2 (35-45) mmHg ABG pO2 (83-108) mmHg ABG O2 Saturation (94-97) % Potassium 5.3 H (3.5-5.1) mmol/L Chloride (98-107) mmol/L Creatinine 1.40 H (0.66-1.25) mg/dL Glucose 109 H (74-99) mg/dL POC Glucose (mg/dL) 114 H (75-99) mg/dL Calcium (8.4-10.2) mg/dL Magnesium (1.6-2.3) mg/dL AST 81 H (17-59) U/L Alkaline Phosphatase (38-126) U/L Total Protein 5.3 L (6.3-8.2) g/dL Albumin 3.2 L (3.5-5.0) g/dL Crossmatch 09/26/17 09/26/17 Range/Units 04:42 06:56 RBC (4.30-5.90) m/uL Hgb (13.0-17.5) gm/dL Hct (39.0-53.0) % MCHC (31.0-37.0) g/dL RDW (11.5-15.5) % Plt Count (150-450) k/uL INR (<1.2) APTT (22.0-30.0) sec ABG pH (7.35-7.45) ABG pCO2 (35-45) mmHg ABG pO2 (83-108) mmHg ABG O2 Saturation (94-97) % Potassium (3.5-5.1) mmol/L Chloride (98-107) mmol/L Creatinine (0.66-1.25) mg/dL Glucose (74-99) mg/dL POC Glucose (mg/dL) 113 H 114 H (75-99) mg/dL Calcium (8.4-10.2) mg/dL Magnesium (1.6-2.3) mg/dL AST (17-59) U/L Alkaline Phosphatase (38-126) U/L Total Protein (6.3-8.2) g/dL Albumin (3.5-5.0) g/dL Crossmatch Microbiology - Last 24 Hours (Table) 09/22/17 06:59 Blood Culture - Preliminary Blood No Growth after 96 hours - Imaging and Cardiology Chest x-ray: report reviewed, image reviewed Assessment and Plan (1) Hypertension Current Visit: Yes Status: Chronic Code(s): I10 - ESSENTIAL (PRIMARY) HYPERTENSION SNOMED Code(s): 22630008 (2) Chronic kidney disease, stage III (moderate) Current Visit: Yes Status: Chronic Code(s): N18.3 - CHRONIC KIDNEY DISEASE, STAGE 3 (MODERATE) SNOMED Code(s): 141393050 (3) Hypothyroidism Current Visit: Yes Status: Chronic Code(s): E03.9 - HYPOTHYROIDISM, UNSPECIFIED SNOMED Code(s): 31571329 (4) History of depression Current Visit: Yes Status: Chronic Code(s): Z86.59 - PERSONAL HISTORY OF OTHER MENTAL AND BEHAVIORAL DISORDERS SNOMED Code(s): 824763315 (5) COPD (chronic obstructive pulmonary disease) Current Visit: Yes Status: Chronic Code(s): J44.9 - CHRONIC OBSTRUCTIVE PULMONARY DISEASE, UNSPECIFIED SNOMED Code(s): 50901120 (6) Acute and chronic respiratory failure with hypoxia Current Visit: Yes Status: Acute Code(s): J96.21 - ACUTE AND CHRONIC RESPIRATORY FAILURE WITH HYPOXIA SNOMED Code(s): 73952992 (7) CAD (coronary artery disease) Current Visit: Yes Status: Acute Code(s): I25.10 - ATHSCL HEART DISEASE OF [place] CORONARY ARTERY W/O ANG PCTRS SNOMED Code(s): 64958255 (8) Peripheral vascular disease Current Visit: Yes Status: Chronic Code(s): I73.9 - PERIPHERAL VASCULAR DISEASE, UNSPECIFIED SNOMED Code(s): 967222023 (9) New onset a-fib Current Visit: Yes Status: Acute Code(s): I48.91 - UNSPECIFIED ATRIAL FIBRILLATION SNOMED Code(s): 99259415 (10) Mild aortic valve regurgitation Current Visit: Yes Status: Acute Code(s): I35.1 - NONRHEUMATIC AORTIC (VALVE ) INSUFFICIENCY SNOMED Code(s): 97614185 (11) Postoperative UTI (urinary tract infection) Current Visit: Yes Status: Acute Code(s): N99.89 - OTH POSTPROCEDURAL COMPLICATIONS AND DISORDERS OF SYS; N39.0 - URINARY TRACT INFECTION, SITE NOT SPECIFIED SNOMED Code(s): 928067960 (12) Moderate left ventricular systolic dysfunction Current Visit: Yes Status: Acute Code(s): I51.9 - HEART DISEASE, UNSPECIFIED SNOMED Code(s): 216769735 (13) Pneumonia Current Visit: Yes Status: Acute Code(s): J18.9 - PNEUMONIA, UNSPECIFIED ORGANISM SNOMED Code(s): 127015417 (14) Carotid artery stenosis Current Visit: Yes Status: Chronic Code(s): I65.29 - OCCLUSION AND STENOSIS OF UNSPECIFIED CAROTID ARTERY SNOMED Code(s): 72814142 (15) Gangrenous toe Current Visit: Yes Status: Chronic Code(s): I96 - GANGRENE, NOT ELSEWHERE CLASSIFIED SNOMED Code(s): 228837581 (16) Mitral valve regurgitation Current Visit: Yes Status: Chronic Code(s): I34.0 - NONRHEUMATIC MITRAL ( VALVE) INSUFFICIENCY SNOMED Code(s): 83947774 Plan: 1. Continue aspirin and Plavix. Hold beta skylar for now. 2. Wean O2 as tolerated. Encourage incentive spirometry use 10 times every hour. Encourage continued smoking cessation. 3. We will start the patient on hydralazine 25 mg by mouth twice a day. 4. GI/DVT prophylaxis. 5. Blood sugar management per primary care service. 6. Encourage increase in activity as tolerated, consulted PT/OT and cardiac rehab 7. Will monitor daily labs and chest x-rays. Monitor I/O. 8. More recommendations to follow as the patient progresses in his care. Time with Patient: Greater than 30 <Carl Banks - Last Filed: 09/26/17 15:17> Objective - Vital Signs Vital signs: Vital Signs Temp 96.8 F L 09/25/17 16:07 Pulse 72 09/26/17 14:30 Resp 19 09/26/17 14:30 BP 129/63 09/26/17 14:30 Pulse Ox 100 09/26/17 14:30 Intake & Output 09/25/17 09/26/17 09/26/17 18:59 06:59 18:59 Intake Total 7959.383 8545.921 487.067 Output Total 1898 1148 900 Balance -867.350 -15.079 -412.933 Weight 70.6 kg 75.6 kg 75.6 kg Intake: IV 270.0 1059.0 450 ACETAMINOPHEN IV (For NPO 100 ) 1,000 mg In Empty Bag 1 bag @ 400 mls/hr IVPB Q6HR AJ Rx#:[id number] Albumin Human 5% 250 ml 250 In Empty Bag 1 bag @ 250 mls/hr IVPB Q1HR PRN Rx#: [id number] Meropenem 500 mg In 100 50 Sodium Chloride 0.9% 50 ml @ 100 mls/hr IVPB Q12HR AJ Rx#:[id number] Milrinone-D5w Pmx 20 mg 18.0 4.5 In Dextrose/Water 1 100ml .bag @ Per Protocol IV . Q0M AJ Rx#:[id number] lactated ringers 250 600 400 milrinone 4.5 Intake, IV Titration 140.650 73.921 37.067 Amount Clevidipine Butyrate 25 12.400 27.166 37.067 mg In Empty Bag 1 bag @ 1 MG/HR 2 mls/hr IV .Q24H [facility] Rx#:[id number] Insulin Regular 100 unit 2.008 In Sodium Chloride 0.9% 100 ml @ Per Protocol IV .Q0M [facility] Rx#:[id number] Milrinone-D5w Pmx 20 mg 32.428 In Dextrose/Water 1 100ml .bag @ Per Protocol IV . Q0M [facility] Rx#:[id number] Norepinephrine 4 mg In 12.319 Sodium Chloride 0.9% 250 ml @ Titrate IV .Q0M AJ Rx#:[id number] Propofol 1,000 mg In 28.25 Empty Bag 1 bag @ Titrate IV .Q0M [facility] Rx#: [id number] Propofol 1,000 mg In 100 Empty Bag 1 bag @ Titrate IV .Q0M [facility] Rx#: [id number] Blood Product 620 Rc As-1 Unit 310 [id number] Rc As-1 Unit 310 [id number] Output: Chest Tube Drainage 203 287 40 Chest Tube Mediastinal 203 287 40 Urine 695 860 860 Stool 1 Estimated Blood Loss 1000 Other: Voiding Method Indwelling Catheter Indwelling Catheter Indwelling Catheter # Voids 0 # Bowel Movements 0 ABP, PAP, CO, CI - Last Documented Arterial Blood Pressure 151/58 Pulmonary Artery Pressure 34/16 Cardiac Output 4.4 Cardiac Index 2.3 - Labs CBC & Chem 7: 09/26/17 04:30 09/26/17 04:30 Labs: Abnormal Lab Results - Last 24 Hours (Table) 09/24/17 09/25/17 09/25/17 Range/Units 15:05 14:45 14:45 RBC 2.27 L (4.30-5.90) m/uL Hgb 6.3 L* D (13.0-17.5) gm/dL Hct 20.7 L (39.0-53.0) % MCHC 30.6 L (31.0-37.0) g/dL RDW 15.6 H (11.5-15.5) % Plt Count 113 L D (150-450) k/uL INR (<1.2) APTT (22.0-30.0) sec ABG pH (7.35-7.45) Potassium (3.5-5.1) mmol/L Chloride 108 H (98-107) mmol/L Creatinine (0.66-1.25) mg/dL Glucose (74-99) mg/dL POC Glucose (mg/dL) (75-99) mg/dL Calcium 7.5 L (8.4-10.2) mg/dL Magnesium 2.5 H (1.6-2.3) mg/dL AST 79 H (17-59) U/L Alkaline Phosphatase 35 L (38-126) U/L Total Protein 4.8 L (6.3-8.2) g/dL Albumin 2.8 L (3.5-5.0) g/dL Crossmatch See Detail 09/25/17 09/25/17 09/25/17 Range/Units 14:45 16:17 16:20 RBC 3.19 L (4.30-5.90) m/uL Hgb 9.1 L D (13.0-17.5) gm/dL Hct 29.9 L (39.0-53.0) % MCHC 30.5 L (31.0-37.0) g/dL RDW 15.9 H (11.5-15.5) % Plt Count 136 L (150-450) k/uL INR 1.2 H (<1.2) APTT 31.8 H (22.0-30.0) sec ABG pH (7.35-7.45) Potassium (3.5-5.1) mmol/L Chloride (98-107) mmol/L Creatinine (0.66-1.25) mg/dL Glucose (74-99) mg/dL POC Glucose (mg/dL) 107 H (75-99) mg/dL Calcium (8.4-10.2) mg/dL Magnesium (1.6-2.3) mg/dL AST (17-59) U/L Alkaline Phosphatase (38-126) U/L Total Protein (6.3-8.2) g/dL Albumin (3.5-5.0) g/dL Crossmatch 09/25/17 09/25/17 09/25/17 Range/Units 17:11 18:14 18:58 RBC 3.12 L (4.30-5.90) m/uL Hgb 8.9 L (13.0-17.5) gm/dL Hct 29.0 L (39.0-53.0) % MCHC 30.6 L (31.0-37.0) g/dL RDW 15.9 H (11.5-15.5) % Plt Count 140 L (150-450) k/uL INR (<1.2) APTT (22.0-30.0) sec ABG pH (7.35-7.45) Potassium (3.5-5.1) mmol/L Chloride (98-107) mmol/L Creatinine (0.66-1.25) mg/dL Glucose (74-99) mg/dL POC Glucose (mg/dL) 102 H 101 H (75-99) mg/dL Calcium (8.4-10.2) mg/dL Magnesium (1.6-2.3) mg/dL AST (17-59) U/L Alkaline Phosphatase (38-126) U/L Total Protein (6.3-8.2) g/dL Albumin (3.5-5.0) g/dL Crossmatch 09/25/17 09/25/17 09/25/17 Range/Units 20:15 22:18 22:54 RBC (4.30-5.90) m/uL Hgb (13.0-17.5) gm/dL Hct (39.0-53.0) % MCHC (31.0-37.0) g/dL RDW (11.5-15.5) % Plt Count (150-450) k/uL INR (<1.2) APTT (22.0-30.0) sec ABG pH 7.34 L (7.35-7.45) Potassium (3.5-5.1) mmol/L Chloride (98-107) mmol/L Creatinine (0.66-1.25) mg/dL Glucose (74-99) mg/dL POC Glucose (mg/dL) 100 H 120 H (75-99) mg/dL Calcium (8.4-10.2) mg/dL Magnesium (1.6-2.3) mg/dL AST (17-59) U/L Alkaline Phosphatase (38-126) U/L Total Protein (6.3-8.2) g/dL Albumin (3.5-5.0) g/dL Crossmatch 09/25/17 09/26/17 09/26/17 Range/Units 23:58 01:08 02:59 RBC (4.30-5.90) m/uL Hgb (13.0-17.5) gm/dL Hct (39.0-53.0) % MCHC (31.0-37.0) g/dL RDW (11.5-15.5) % Plt Count (150-450) k/uL INR (<1.2) APTT (22.0-30.0) sec ABG pH (7.35-7.45) Potassium (3.5-5.1) mmol/L Chloride (98-107) mmol/L Creatinine (0.66-1.25) mg/dL Glucose (74-99) mg/dL POC Glucose (mg/dL) 123 H 121 H 114 H (75-99) mg/dL Calcium (8.4-10.2) mg/dL Magnesium (1.6-2.3) mg/dL AST (17-59) U/L Alkaline Phosphatase (38-126) U/L Total Protein (6.3-8.2) g/dL Albumin (3.5-5.0) g/dL Crossmatch 09/26/17 09/26/17 09/26/17 Range/Units 04:30 04:30 04:42 RBC 2.94 L (4.30-5.90) m/uL Hgb 8.3 L (13.0-17.5) gm/dL Hct 26.9 L (39.0-53.0) % MCHC 30.9 L (31.0-37.0) g/dL RDW 16.2 H (11.5-15.5) % Plt Count (150-450) k/uL INR (<1.2) APTT (22.0-30.0) sec ABG pH (7.35-7.45) Potassium 5.3 H (3.5-5.1) mmol/L Chloride (98-107) mmol/L Creatinine 1.40 H (0.66-1.25) mg/dL Glucose 109 H (74-99) mg/dL POC Glucose (mg/dL) 113 H (75-99) mg/dL Calcium (8.4-10.2) mg/dL Magnesium (1.6-2.3) mg/dL AST 81 H (17-59) U/L Alkaline Phosphatase (38-126) U/L Total Protein 5.3 L (6.3-8.2) g/dL Albumin 3.2 L (3.5-5.0) g/dL Crossmatch 09/26/17 09/26/17 09/26/17 Range/Units 06:56 10:08 12:42 RBC (4.30-5.90) m/uL Hgb (13.0-17.5) gm/dL Hct (39.0-53.0) % MCHC (31.0-37.0) g/dL RDW (11.5-15.5) % Plt Count (150-450) k/uL INR (<1.2) APTT (22.0-30.0) sec ABG pH (7.35-7.45) Potassium (3.5-5.1) mmol/L Chloride (98-107) mmol/L Creatinine (0.66-1.25) mg/dL Glucose (74-99) mg/dL POC Glucose (mg/dL) 114 H 151 H 127 H (75-99) mg/dL Calcium (8.4-10.2) mg/dL Magnesium (1.6-2.3) mg/dL AST (17-59) U/L Alkaline Phosphatase (38-126) U/L Total Protein (6.3-8.2) g/dL Albumin (3.5-5.0) g/dL Crossmatch Microbiology - Last 24 Hours (Table) 09/22/17 06:59 Blood Culture - Preliminary Blood No Growth after 96 hours Assessment and Plan Plan: The patient was seen and examined. I agree with the above assessment and plan. Overall he looks well. He is currently on 2 L nasal cannula which we will continue to wean. His cardiac index is 2.2 on low-dose milrinone. He is off Cleviprex. We will keep his [place] overnight. We will hold off on a beta skylar for now but start hydralazine. He has had adequate urine output during the day today. We will get him up in a chair later this evening. He does have a stage II decubitus ulcer on his coccyx.
[2017-09-26] MEDS: IPRATROPIUM-ALBUTEROL 3 ML NEB INHALATION SCH ×3 (11:31→19:32)
--- NOTE | 2017-09-26 11:41 | P.PN ---
Subjective Progress Note Date: 09/26/17 Principal diagnosis: Severe mitral valve regurgitation, recurrent episodes of flash pulmonary edema and respiratory failure requiring intubation and mechanical ventilation. On 09/25/2017 patient seen post mitral valve replacement, modified Albert maze cryoablation, and exclusion of the left atrial appendage. Patient is intubated and sedated on mechanical ventilation with the vent settings assist control mode with a rate of 12, tidal volume 500, FiO2 100%, and PEEP of 5. Intraoperatively he received 1 unit of packed red blood cells for hemoglobin of 7.0. Patient has 2 mediastinal chest tubes that are Y-connected together, there is about 35 mL of sanguinous output in the atrium collection chamber. Patient's rhythm is sinus with a rate of any BPM. Patient has epicardial wires , connected to a temporary external pacemaker, with settings of AAI with a rate of 80 BPM. PA pressures of 48/25, with a mean of 29. The cardiac output and index are 4.5 and 2.4 respectively. Maintenance fluids are LR at 50 ML per hour , clevidipine is currently running at 2 mg per hour, Primacor is infusing at 0.2 mics per kilo per minute, and nitroglycerin at 5 mics per minute. Microbiology showed a sputum culture from 09/22/2017 positive for Enterobacter o 'clock K and Klebsiella oxytoca, and urine cultures positive for E. coli. Patient remains on a combination of cefazolin and vancomycin per ID service recommendation. This morning's lab work showed a PVC of 5.5, hemoglobin of 9.8 , renal profile improving, BUN of 21, creatinine of 1.5. Postop blood work is pending. Postop blood gases pending as well. Patient was reevaluated today on 09/26/2017, he is postoperative day #1. I saw him yesterday shortly after his surgery, and he was on mechanical ventilation. At night the patient was weaned and extubated uneventfully, and he is now on nasal cannula, in no distress. Chest x-ray showed minimal interstitial edema, however the patient responded well to Lasix earlier today by her to thoracic surgery. Patient is relatively asymptomatic, sitting in a bedside chair. Chest x-ray and labs were reviewed. His renal profile is improving creatinine is down to 1.40, it was 1.70 yesterday. Rest of the labs were unremarkable. Objective - Vital Signs Vital signs: Vital Signs Temp 96.8 F L 09/25/17 16:07 Pulse 69 09/26/17 11:00 Resp 20 09/26/17 11:00 BP 120/61 09/26/17 11:00 Pulse Ox 99 09/26/17 11:00 Intake & Output 09/25/17 09/26/17 09/26/17 18:59 06:59 18:59 Intake Total 5794.537 5051.921 300 Output Total 1898 1148 640 Balance -867.350 -15.079 -340 Weight 70.6 kg 75.6 kg 75.6 kg Intake: IV 270.0 1059.0 300 ACETAMINOPHEN IV (For NPO 100 ) 1,000 mg In Empty Bag 1 bag @ 400 mls/hr IVPB Q6HR AJ Rx#:[id number] Albumin Human 5% 250 ml 250 In Empty Bag 1 bag @ 250 mls/hr IVPB Q1HR PRN Rx#: [id number] Meropenem 500 mg In 100 50 Sodium Chloride 0.9% 50 ml @ 100 mls/hr IVPB Q12HR AJ Rx#:[id number] Milrinone-D5w Pmx 20 mg 18.0 4.5 In Dextrose/Water 1 100ml .bag @ Per Protocol IV . Q0M AJ Rx#:[id number] lactated ringers 250 600 250 milrinone 4.5 Intake, IV Titration 140.650 73.921 Amount Clevidipine Butyrate 25 12.400 27.166 mg In Empty Bag 1 bag @ 1 MG/HR 2 mls/hr IV .Q24H AJ Rx#:[id number] Insulin Regular 100 unit 2.008 In Sodium Chloride 0.9% 100 ml @ Per Protocol IV .Q0M AJ Rx#:[id number] Milrinone-D5w Pmx 20 mg 32.428 In Dextrose/Water 1 100ml .bag @ Per Protocol IV . Q0M AJ Rx#:[id number] Norepinephrine 4 mg In 12.319 Sodium Chloride 0.9% 250 ml @ Titrate IV .Q0M AJ Rx#:[id number] Propofol 1,000 mg In 28.25 Empty Bag 1 bag @ Titrate IV .Q0M ONE Rx#: [id number] Propofol 1,000 mg In 100 Empty Bag 1 bag @ Titrate IV .Q0M AJ Rx#: [id number] Blood Product 620 Rc As-1 Unit 310 [id number] Rc As-1 Unit 310 [id number] Output: Chest Tube Drainage 203 287 40 Chest Tube Mediastinal 203 287 40 Urine 695 860 600 Stool 1 Estimated Blood Loss 1000 Other: Voiding Method Indwelling Catheter Indwelling Catheter Indwelling Catheter # Voids 0 # Bowel Movements 0 ABP, PAP, CO, CI - Last Documented Arterial Blood Pressure 130/53 Pulmonary Artery Pressure 37/18 Cardiac Output 4.4 Cardiac Index 2.3 - Exam GENERAL EXAM: Revealed a 62-year-old -[place] male, on nasal cannula in no distress HEAD: Normocephalic. EYES: Normal reaction of pupils, equal size. NOSE: Clear with pink turbinates. THROAT: No erythema or exudates. Endotracheal tube seems to be intact. Orogastric tube is also intact. NECK: No masses, no JVD. CHEST: No chest wall deformity. LUNGS: Minimal fine crackles at the bases, no rhonchi no wheezes. CVS: S1 and S2 normal,, no gallops, 2/6 systolic murmur throughout the precordium. ABDOMEN: No hepatosplenomegaly, normal bowel sounds, no guarding or rigidity. SPINE: No scoliosis or deformity SKIN: No rashes CENTRAL NERVOUS SYSTEM: Alert oriented 3, no gross focal neurologic deficit noted. EXTREMITIES: There is no peripheral edema. No clubbing, no cyanosis. Peripheral pulses are intact. - Labs CBC & Chem 7: 09/26/17 04:30 09/26/17 04:30 Labs: Abnormal Lab Results - Last 24 Hours (Table) 09/24/17 09/25/17 09/25/17 Range/Units 15:05 14:31 14:45 RBC 2.27 L (4.30-5.90) m/uL Hgb 6.3 L* D (13.0-17.5) gm/dL Hct 20.7 L (39.0-53.0) % MCHC 30.6 L (31.0-37.0) g/dL RDW 15.6 H (11.5-15.5) % Plt Count 113 L D (150-450) k/uL INR (<1.2) APTT (22.0-30.0) sec ABG pH 7.29 L (7.35-7.45) ABG pCO2 47 H (35-45) mmHg ABG pO2 184 H (83-108) mmHg ABG O2 Saturation 99.7 H (94-97) % Potassium (3.5-5.1) mmol/L Chloride (98-107) mmol/L Creatinine (0.66-1.25) mg/dL Glucose (74-99) mg/dL POC Glucose (mg/dL) (75-99) mg/dL Calcium (8.4-10.2) mg/dL Magnesium (1.6-2.3) mg/dL AST (17-59) U/L Alkaline Phosphatase (38-126) U/L Total Protein (6.3-8.2) g/dL Albumin (3.5-5.0) g/dL Crossmatch See Detail 09/25/17 09/25/17 09/25/17 Range/Units 14:45 14:45 16:17 RBC (4.30-5.90) m/uL Hgb (13.0-17.5) gm/dL Hct (39.0-53.0) % MCHC (31.0-37.0) g/dL RDW (11.5-15.5) % Plt Count (150-450) k/uL INR 1.2 H (<1.2) APTT 31.8 H (22.0-30.0) sec ABG pH (7.35-7.45) ABG pCO2 (35-45) mmHg ABG pO2 (83-108) mmHg ABG O2 Saturation (94-97) % Potassium (3.5-5.1) mmol/L Chloride 108 H (98-107) mmol/L Creatinine (0.66-1.25) mg/dL Glucose (74-99) mg/dL POC Glucose (mg/dL) 107 H (75-99) mg/dL Calcium 7.5 L (8.4-10.2) mg/dL Magnesium 2.5 H (1.6-2.3) mg/dL AST 79 H (17-59) U/L Alkaline Phosphatase 35 L (38-126) U/L Total Protein 4.8 L (6.3-8.2) g/dL Albumin 2.8 L (3.5-5.0) g/dL Crossmatch 02/19/18 02/19/18 02/19/18 Range/Units 16:20 17:11 18:14 RBC 3.19 L (4.30-5.90) m/uL Hgb 9.1 L D (13.0-17.5) gm/dL Hct 29.9 L (39.0-53.0) % MCHC 30.5 L (31.0-37.0) g/dL RDW 15.9 H (11.5-15.5) % Plt Count 136 L (150-450) k/uL INR (<1.2) APTT (22.0-30.0) sec ABG pH (7.35-7.45) ABG pCO2 (35-45) mmHg ABG pO2 (83-108) mmHg ABG O2 Saturation (94-97) % Potassium (3.5-5.1) mmol/L Chloride (98-107) mmol/L Creatinine (0.66-1.25) mg/dL Glucose (74-99) mg/dL POC Glucose (mg/dL) 102 H 101 H (75-99) mg/dL Calcium (8.4-10.2) mg/dL Magnesium (1.6-2.3) mg/dL AST (17-59) U/L Alkaline Phosphatase (38-126) U/L Total Protein (6.3-8.2) g/dL Albumin (3.5-5.0) g/dL Crossmatch 09/25/17 09/25/17 09/25/17 Range/Units 18:58 20:15 22:18 RBC 3.12 L (4.30-5.90) m/uL Hgb 8.9 L (13.0-17.5) gm/dL Hct 29.0 L (39.0-53.0) % MCHC 30.6 L (31.0-37.0) g/dL RDW 15.9 H (11.5-15.5) % Plt Count 140 L (150-450) k/uL INR (<1.2) APTT (22.0-30.0) sec ABG pH 7.34 L (7.35-7.45) ABG pCO2 (35-45) mmHg ABG pO2 (83-108) mmHg ABG O2 Saturation (94-97) % Potassium (3.5-5.1) mmol/L Chloride (98-107) mmol/L Creatinine (0.66-1.25) mg/dL Glucose (74-99) mg/dL POC Glucose (mg/dL) 100 H (75-99) mg/dL Calcium (8.4-10.2) mg/dL Magnesium (1.6-2.3) mg/dL AST (17-59) U/L Alkaline Phosphatase (38-126) U/L Total Protein (6.3-8.2) g/dL Albumin (3.5-5.0) g/dL Crossmatch 09/25/17 09/25/17 09/26/17 Range/Units 22:54 23:58 01:08 RBC (4.30-5.90) m/uL Hgb (13.0-17.5) gm/dL Hct (39.0-53.0) % MCHC (31.0-37.0) g/dL RDW (11.5-15.5) % Plt Count (150-450) k/uL INR (<1.2) APTT (22.0-30.0) sec ABG pH (7.35-7.45) ABG pCO2 (35-45) mmHg ABG pO2 (83-108) mmHg ABG O2 Saturation (94-97) % Potassium (3.5-5.1) mmol/L Chloride (98-107) mmol/L Creatinine (0.66-1.25) mg/dL Glucose (74-99) mg/dL POC Glucose (mg/dL) 120 H 123 H 121 H (75-99) mg/dL Calcium (8.4-10.2) mg/dL Magnesium (1.6-2.3) mg/dL AST (17-59) U/L Alkaline Phosphatase (38-126) U/L Total Protein (6.3-8.2) g/dL Albumin (3.5-5.0) g/dL Crossmatch 09/26/17 09/26/17 09/26/17 Range/Units 02:59 04:30 04:30 RBC 2.94 L (4.30-5.90) m/uL Hgb 8.3 L (13.0-17.5) gm/dL Hct 26.9 L (39.0-53.0) % MCHC 30.9 L (31.0-37.0) g/dL RDW 16.2 H (11.5-15.5) % Plt Count (150-450) k/uL INR (<1.2) APTT (22.0-30.0) sec ABG pH (7.35-7.45) ABG pCO2 (35-45) mmHg ABG pO2 (83-108) mmHg ABG O2 Saturation (94-97) % Potassium 5.3 H (3.5-5.1) mmol/L Chloride (98-107) mmol/L Creatinine 1.40 H (0.66-1.25) mg/dL Glucose 109 H (74-99) mg/dL POC Glucose (mg/dL) 114 H (75-99) mg/dL Calcium (8.4-10.2) mg/dL Magnesium (1.6-2.3) mg/dL AST 81 H (17-59) U/L Alkaline Phosphatase (38-126) U/L Total Protein 5.3 L (6.3-8.2) g/dL Albumin 3.2 L (3.5-5.0) g/dL Crossmatch 09/26/17 09/26/17 09/26/17 Range/Units 04:42 06:56 10:08 RBC (4.30-5.90) m/uL Hgb (13.0-17.5) gm/dL Hct (39.0-53.0) % MCHC (31.0-37.0) g/dL RDW (11.5-15.5) % Plt Count (150-450) k/uL INR (<1.2) APTT (22.0-30.0) sec ABG pH (7.35-7.45) ABG pCO2 (35-45) mmHg ABG pO2 (83-108) mmHg ABG O2 Saturation (94-97) % Potassium (3.5-5.1) mmol/L Chloride (98-107) mmol/L Creatinine (0.66-1.25) mg/dL Glucose (74-99) mg/dL POC Glucose (mg/dL) 113 H 114 H 151 H (75-99) mg/dL Calcium (8.4-10.2) mg/dL Magnesium (1.6-2.3) mg/dL AST (17-59) U/L Alkaline Phosphatase (38-126) U/L Total Protein (6.3-8.2) g/dL Albumin (3.5-5.0) g/dL Crossmatch Microbiology - Last 24 Hours (Table) 09/22/17 06:59 Blood Culture - Preliminary Blood No Growth after 96 hours Assessment and Plan Assessment: Severe mitral regurgitation, with recurrent episodes of systolic congestive heart failure, status post mitral valve replacement, biatrial modified Albert maze procedure and exclusion of the left atrial appendix, postop day #1 Recurrent episodes of hypoxic respiratory failure requiring intubation and mechanical ventilation, mostly secondary to mitral valve disease, and the patient is developing flash pulmonary edema is intermittently. Atrial fibrillation/RVR, currently in sinus rhythm. Presently the patient seems in a junctional rhythm. History of CAD with previous stent placement History of COPD History of essential hypertension History of depression Peripheral vascular occlusive disease Hypothyroidism Hypertensive nephrosclerosis with chronic kidney disease, stage III Acute cellulitis and dry gangrene of the left big toe, status post debridement Bilateral carotid disease, worse on the right with a greater than 70% obstruction, angiogram showed the obstruction was nonsignificant. Positive sputum cultures and urine cultures as noted above in my previous documentation, and his antibiotics were switched to Merrem, it will cover his Enterobacter, Klebsiella, and E. coli. Recommendation: Continue present supportive care measures, continue antibiotics , bronchodilators, incentive spirometry, early ambulation, and hopefully the patient could be eventually discharged to a rehab facility in the next few days. Time with Patient: Less than 30
[2017-09-26] MEDS ORDERED: hydrALAZINE HCL 20 MG/ML 1 ML VIAL IVP PRN (11:42)
--- NOTE | 2017-09-26 11:53 | P.PN ---
Subjective Patient is seen in follow-up for acute kidney injury. Renal function is improved with creatinine at 1.4 today. He is status post mitral valve replacement on September 25. He is awake and alert and currently sitting up in a chair. Admits to soreness at the surgical site. Currently maintained on antibiotics for E. coli UTI as well as Enterobacter and Klebsiella noted on sputum culture. He is nonoliguric. Vital signs are stable. General: The patient appeared well nourished and normally developed. Currently intubated. HEENT: Head exam is unremarkable. Neck is without jugular venous distension. LUNGS: Lungs are clear to auscultation and percussion. Breath sounds decreased. HEART: Rate and Rhythm are regular. First and second heart sounds normal. No murmurs, rubs or gallops. ABDOMEN: Abdominal exam reveals normal bowel sounds. Non-tender and non- distended. No evidence of peritonitis. EXTREMITITES: No clubbing, cyanosis, or edema. Objective - Vital Signs Vital signs: Vital Signs Temp 96.8 F L 09/25/17 16:07 Pulse 70 09/26/17 11:45 Resp 20 09/26/17 11:00 BP 120/61 09/26/17 11:00 Pulse Ox 99 09/26/17 11:00 Intake & Output 09/25/17 09/26/17 09/26/17 18:59 06:59 18:59 Intake Total 8250.784 6202.921 300 Output Total 1898 1148 640 Balance -867.350 -15.079 -340 Weight 70.6 kg 75.6 kg 75.6 kg Intake: IV 270.0 1059.0 300 ACETAMINOPHEN IV (For NPO 100 ) 1,000 mg In Empty Bag 1 bag @ 400 mls/hr IVPB Q6HR AJ Rx#:[id number] Albumin Human 5% 250 ml 250 In Empty Bag 1 bag @ 250 mls/hr IVPB Q1HR PRN Rx#: [id number] Meropenem 500 mg In 100 50 Sodium Chloride 0.9% 50 ml @ 100 mls/hr IVPB Q12HR AJ Rx#:[id number] Milrinone-D5w Pmx 20 mg 18.0 4.5 In Dextrose/Water 1 100ml .bag @ Per Protocol IV . Q0M AJ Rx#:[id number] lactated ringers 250 600 250 milrinone 4.5 Intake, IV Titration 140.650 73.921 Amount Clevidipine Butyrate 25 12.400 27.166 mg In Empty Bag 1 bag @ 1 MG/HR 2 mls/hr IV .Q24H AJ Rx#:[id number] Insulin Regular 100 unit 2.008 In Sodium Chloride 0.9% 100 ml @ Per Protocol IV .Q0M AJ Rx#:[id number] Milrinone-D5w Pmx 20 mg 32.428 In Dextrose/Water 1 100ml .bag @ Per Protocol IV . Q0M AJ Rx#:[id number] Norepinephrine 4 mg In 12.319 Sodium Chloride 0.9% 250 ml @ Titrate IV .Q0M AJ Rx#:[id number] Propofol 1,000 mg In 28.25 Empty Bag 1 bag @ Titrate IV .Q0M [facility] Rx#: [id number] Propofol 1,000 mg In 100 Empty Bag 1 bag @ Titrate IV .Q0M AJ Rx#: [id number] Blood Product 620 Rc As-1 Unit 310 [id number] Rc As-1 Unit 310 [id number] Output: Chest Tube Drainage 203 287 40 Chest Tube Mediastinal 203 287 40 Urine 695 860 600 Stool 1 Estimated Blood Loss 1000 Other: Voiding Method Indwelling Catheter Indwelling Catheter Indwelling Catheter # Voids 0 # Bowel Movements 0 ABP, PAP, CO, CI - Last Documented Arterial Blood Pressure 130/53 Pulmonary Artery Pressure 37/18 Cardiac Output 4.4 Cardiac Index 2.3 - Labs CBC & Chem 7: 09/26/17 04:30 09/26/17 04:30 Labs: Abnormal Lab Results - Last 24 Hours (Table) 09/24/17 09/25/17 09/25/17 Range/Units 15:05 14:31 14:45 RBC 2.27 L (4.30-5.90) m/uL Hgb 6.3 L* D (13.0-17.5) gm/dL Hct 20.7 L (39.0-53.0) % MCHC 30.6 L (31.0-37.0) g/dL RDW 15.6 H (11.5-15.5) % Plt Count 113 L D (150-450) k/uL INR (<1.2) APTT (22.0-30.0) sec ABG pH 7.29 L (7.35-7.45) ABG pCO2 47 H (35-45) mmHg ABG pO2 184 H (83-108) mmHg ABG O2 Saturation 99.7 H (94-97) % Potassium (3.5-5.1) mmol/L Chloride (98-107) mmol/L Creatinine (0.66-1.25) mg/dL Glucose (74-99) mg/dL POC Glucose (mg/dL) (75-99) mg/dL Calcium (8.4-10.2) mg/dL Magnesium (1.6-2.3) mg/dL AST (17-59) U/L Alkaline Phosphatase (38-126) U/L Total Protein (6.3-8.2) g/dL Albumin (3.5-5.0) g/dL Crossmatch See Detail 09/25/17 09/25/17 09/25/17 Range/Units 14:45 14:45 16:17 RBC (4.30-5.90) m/uL Hgb (13.0-17.5) gm/dL Hct (39.0-53.0) % MCHC (31.0-37.0) g/dL RDW (11.5-15.5) % Plt Count (150-450) k/uL INR 1.2 H (<1.2) APTT 31.8 H (22.0-30.0) sec ABG pH (7.35-7.45) ABG pCO2 (35-45) mmHg ABG pO2 (83-108) mmHg ABG O2 Saturation (94-97) % Potassium (3.5-5.1) mmol/L Chloride 108 H (98-107) mmol/L Creatinine (0.66-1.25) mg/dL Glucose (74-99) mg/dL POC Glucose (mg/dL) 107 H (75-99) mg/dL Calcium 7.5 L (8.4-10.2) mg/dL Magnesium 2.5 H (1.6-2.3) mg/dL AST 79 H (17-59) U/L Alkaline Phosphatase 35 L (38-126) U/L Total Protein 4.8 L (6.3-8.2) g/dL Albumin 2.8 L (3.5-5.0) g/dL Crossmatch 09/25/17 09/25/17 09/25/17 Range/Units 16:20 17:11 18:14 RBC 3.19 L (4.30-5.90) m/uL Hgb 9.1 L D (13.0-17.5) gm/dL Hct 29.9 L (39.0-53.0) % MCHC 30.5 L (31.0-37.0) g/dL RDW 15.9 H (11.5-15.5) % Plt Count 136 L (150-450) k/uL INR (<1.2) APTT (22.0-30.0) sec ABG pH (7.35-7.45) ABG pCO2 (35-45) mmHg ABG pO2 (83-108) mmHg ABG O2 Saturation (94-97) % Potassium (3.5-5.1) mmol/L Chloride (98-107) mmol/L Creatinine (0.66-1.25) mg/dL Glucose (74-99) mg/dL POC Glucose (mg/dL) 102 H 101 H (75-99) mg/dL Calcium (8.4-10.2) mg/dL Magnesium (1.6-2.3) mg/dL AST (17-59) U/L Alkaline Phosphatase (38-126) U/L Total Protein (6.3-8.2) g/dL Albumin (3.5-5.0) g/dL Crossmatch 09/25/17 09/25/17 09/25/17 Range/Units 18:58 20:15 22:18 RBC 3.12 L (4.30-5.90) m/uL Hgb 8.9 L (13.0-17.5) gm/dL Hct 29.0 L (39.0-53.0) % MCHC 30.6 L (31.0-37.0) g/dL RDW 15.9 H (11.5-15.5) % Plt Count 140 L (150-450) k/uL INR (<1.2) APTT (22.0-30.0) sec ABG pH 7.34 L (7.35-7.45) ABG pCO2 (35-45) mmHg ABG pO2 (83-108) mmHg ABG O2 Saturation (94-97) % Potassium (3.5-5.1) mmol/L Chloride (98-107) mmol/L Creatinine (0.66-1.25) mg/dL Glucose (74-99) mg/dL POC Glucose (mg/dL) 100 H (75-99) mg/dL Calcium (8.4-10.2) mg/dL Magnesium (1.6-2.3) mg/dL AST (17-59) U/L Alkaline Phosphatase (38-126) U/L Total Protein (6.3-8.2) g/dL Albumin (3.5-5.0) g/dL Crossmatch 09/25/17 09/25/17 09/26/17 Range/Units 22:54 23:58 01:08 RBC (4.30-5.90) m/uL Hgb (13.0-17.5) gm/dL Hct (39.0-53.0) % MCHC (31.0-37.0) g/dL RDW (11.5-15.5) % Plt Count (150-450) k/uL INR (<1.2) APTT (22.0-30.0) sec ABG pH (7.35-7.45) ABG pCO2 (35-45) mmHg ABG pO2 (83-108) mmHg ABG O2 Saturation (94-97) % Potassium (3.5-5.1) mmol/L Chloride (98-107) mmol/L Creatinine (0.66-1.25) mg/dL Glucose (74-99) mg/dL POC Glucose (mg/dL) 120 H 123 H 121 H (75-99) mg/dL Calcium (8.4-10.2) mg/dL Magnesium (1.6-2.3) mg/dL AST (17-59) U/L Alkaline Phosphatase (38-126) U/L Total Protein (6.3-8.2) g/dL Albumin (3.5-5.0) g/dL Crossmatch 09/26/17 09/26/17 09/26/17 Range/Units 02:59 04:30 04:30 RBC 2.94 L (4.30-5.90) m/uL Hgb 8.3 L (13.0-17.5) gm/dL Hct 26.9 L (39.0-53.0) % MCHC 30.9 L (31.0-37.0) g/dL RDW 16.2 H (11.5-15.5) % Plt Count (150-450) k/uL INR (<1.2) APTT (22.0-30.0) sec ABG pH (7.35-7.45) ABG pCO2 (35-45) mmHg ABG pO2 (83-108) mmHg ABG O2 Saturation (94-97) % Potassium 5.3 H (3.5-5.1) mmol/L Chloride (98-107) mmol/L Creatinine 1.40 H (0.66-1.25) mg/dL Glucose 109 H (74-99) mg/dL POC Glucose (mg/dL) 114 H (75-99) mg/dL Calcium (8.4-10.2) mg/dL Magnesium (1.6-2.3) mg/dL AST 81 H (17-59) U/L Alkaline Phosphatase (38-126) U/L Total Protein 5.3 L (6.3-8.2) g/dL Albumin 3.2 L (3.5-5.0) g/dL Crossmatch 09/26/17 09/26/17 09/26/17 Range/Units 04:42 06:56 10:08 RBC (4.30-5.90) m/uL Hgb (13.0-17.5) gm/dL Hct (39.0-53.0) % MCHC (31.0-37.0) g/dL RDW (11.5-15.5) % Plt Count (150-450) k/uL INR (<1.2) APTT (22.0-30.0) sec ABG pH (7.35-7.45) ABG pCO2 (35-45) mmHg ABG pO2 (83-108) mmHg ABG O2 Saturation (94-97) % Potassium (3.5-5.1) mmol/L Chloride (98-107) mmol/L Creatinine (0.66-1.25) mg/dL Glucose (74-99) mg/dL POC Glucose (mg/dL) 113 H 114 H 151 H (75-99) mg/dL Calcium (8.4-10.2) mg/dL Magnesium (1.6-2.3) mg/dL AST (17-59) U/L Alkaline Phosphatase (38-126) U/L Total Protein (6.3-8.2) g/dL Albumin (3.5-5.0) g/dL Crossmatch Microbiology - Last 24 Hours (Table) 09/22/17 06:59 Blood Culture - Preliminary Blood No Growth after 96 hours Assessment and Plan Plan: Assessment: #1. Nonoliguric acute kidney injury secondary to ATN secondary to contrast- induced nephropathy and hemodynamic instability. Creatinine improved to 1.4 today. #2. Mild hyperkalemia secondary to acute kidney injury and lactated Ringer's. #3. Chronic kidney disease stage III with baseline creatinine in the range of 1.2-1.4 secondary to nephrosclerosis. #4. Mitral valve regurgitation status post mitral valve replacement on 2017. #5. Pneumonia with sputum culture positive for Enterobacter and Klebsiella. #6. UTI with urine culture positive for E. coli. #7. Systolic CHF with ejection fraction of 40%. #8. Atrial fibrillation. Currently rate controlled. #9. Anemia status post blood transfusion on September 25. Hemoglobin 8.3 this morning. Plan: Continue Lasix 40 mg once daily. Avoid nephrotoxic agents and hypotensive episodes. Continue to monitor renal function and urine output. Antibiotics per infectious disease recommendations. KVO IV fluids and change to 0.9 saline instead of LR.
[2017-09-26] MEDS: CLOPIDOGREL 75 MG TAB PO SCH (12:33)
[2017-09-26 12:44] LABS: Glucose,Whole Blood 127 mg/dL (75-99)
[2017-09-26] MEDS ORDERED: BISACODYL 10 MG SUPP RECTAL PRN (13:21)
[2017-09-26] MEDS ORDERED: IPRATROPIUM-ALBUTEROL 3 ML NEB INHALATION PRN (13:22)
[2017-09-26] MEDS: HYDROcodone/APAP 5-325MG 1 EACH TAB PO PRN ×2 (14:55→22:04)
[2017-09-26 18:20] LABS: Glucose,Whole Blood 107 mg/dL (75-99)
[2017-09-26] MEDS: INSULIN ASPART 100 UNIT/ML 1 ML 10 ML VIAL SQ SCH ×2 (18:46→21:48)
--- NOTE | 2017-09-26 19:12 | PN ---
PROGRESS NOTE DATE OF SERVICE: 09/26/2017 This 62-year-old gentleman who was admitted with severe mitral regurgitation, underwent a mitral valve replacement. The patient also has a history of CHF as well as acute hypoxic respiratory failure. Patient also has multiple medical issues, including vascular disease and gangrene also of the left big toe. Multiple consultants are following the patient closely. The patient is extubated. Patient is complaining of some pain. Patient is being closely monitored. PAST MEDICAL HISTORY: Reviewed. REVIEW OF SYSTEMS: CARDIOVASCULAR: As mentioned earlier. RESPIRATORY: As mentioned earlier. GI: No nausea, vomiting. : No dysuria. NERVOUS: No numbness, weakness. CURRENT MEDICATIONS: Reviewed, include: 1. Tylenol every 6 hours p.r.n. 2. Willard 5 mg q.4h p.r.n. 3. DuoNeb q.i.d. and p.r.n. 4. Aspirin 81 mg. 5. Dulcolax. 6. Peridex 15 mL b.i.d. 8. Plavix 75 mg. 9. Prozac 20 mg daily. 10.Lasix 40 mg IV daily. 11.Cozaar 25 mg p.o. b.i.d. 12.NovoLog sliding scale. 13.Synthroid 25 mcg. 14.Meropenem 500 mg IV q.8h. 15.P.r.n. medications. PHYSICAL EXAM: Patient is alert and oriented x3. The pulse is 77, blood pressure is 130/66, respirations 20, temperature normal, pulse ox is 98% on room air. HEENT: Conjunctivae normal. Oral mucosa moist. NECK: No jugular venous distention. No carotid bruits. No lymph node enlargement. CARDIOVASCULAR: S1, S2 muffled. RESPIRATORY: Breath sounds diminished in the bases. A few scattered rhonchi and crackles. Respiratory wheezing also present. ABDOMEN: Soft, nontender. No mass palpable. LEGS: No edema. No swelling. NERVOUS SYSTEM: Higher functions as mentioned earlier. Moves all 4 limbs. No focal motor or sensory deficits. LYMPHATIC: No lymphadenopathy in neck or axillae. SKIN: No ulcer, rash or bleeding. LABS: WBC 7.7, hemoglobin is 8.3. Glucose 113. ASSESSMENT: 1. Severe mitral regurgitation, status post mitral valve replacement. 2. Recurrent systolic heart failure secondary to severe mitral regurgitation. 3. Acute hypoxic respiratory failure, status post mechanical ventilation, most likely secondary to multiple recent flash pulmonary edema. 4. Atrial fibrillation, currently in sinus rhythm, paroxysmal. 5. History of coronary artery disease, stent placement. 6. Chronic obstructive pulmonary disease. 7. History of peripheral vascular disease. 8. Hypothyroidism. 9. Acute cellulitis and dry gangrene of the left big toe, status post debridement. 10.Bilateral carotid stenosis, 70% obstruction. RECOMMENDATIONS AND DISCUSSION: Recommend to continue current symptomatic treatment with antiplatelet agents. Continue with incentive spirometry. Continue with bronchodilators. Continue with pain medications. Repeat labs. Closely follow with Cardiothoracic Surgery and Pulmonary. Monitor blood pressure closely. Guarded prognosis because of multiple complex medical issues. Further recommendations to follow. MMODL / IJN: [id number] / SABINE
--- NOTE | 2017-09-26 20:26 | PN ---
PROGRESS NOTE DATE OF SERVICE: 09/26/2017 REASON FOR FOLLOWUP: 1. Gram-negative pneumonia. 2. Left big and 2nd wound cellulitis. INTERVAL HISTORY: The patient is status post mitral wall surgery. The patient had tolerated the procedure as of this morning. The patient has been extubated. Last fever he had yesterday was 100.8 at noon, afebrile since then. Hemodynamically stable. Not on any pressor support. Complaining of some soreness from the surgery, but breathing comfortably. No nausea, vomiting, or any worsening pain in the left foot area. EXAMINATION: Blood pressure 122/60 with a pulse of 70, temperature of 98. He is 96% on 2L nasal cannula. General description is a middle-aged male, up in the chair in no distress. RESPIRATORY SYSTEM: Unlabored breathing with decreased breath sounds. No wheeze. HEART: S1, S2. ABDOMEN: Soft, no tenderness. Left foot is currently dressed up. No obvious drainage on the dressing. LABS: Hemoglobin 8.3, white count of 7.7 with a BUN of 19, creatinine of 1.40. DIAGNOSTIC IMPRESSION AND PLAN: Patient with gram-negative pneumonia. Sputum did show Enterobacter and Klebsiella with the Bactrim, being multidrug resistant. The patient is currently covered with meropenem that will be continued. Continue supportive care. MMODL / IJN: [id number] /
[2017-09-26 21:48] LABS: Glucose,Whole Blood 123 mg/dL (75-99)
[2017-09-26] MEDS: SENNOSIDES-DOCUSATE SODIUM 1 EACH TAB PO SCH (22:04)
[2017-09-27] MEDS: MILRINONE-D5W PMX 20 MG in DEXTROSE/WATER 1 100ML.BAG IV SCH (01:06)
[2017-09-27 06:24] LABS: Anisocytosis Slight; Basophils # (A) 0.1 k/uL (0-0.2); Basophils % (A) 1 %; Eosinophils # (A) 0.2 k/uL (0-0.7); Eosinophils % (A) 2 %; HGB 8.6 gm/dL (13.0-17.5); Hypochromasia Slight; Lymphocytes # (A) 1.5 k/uL (1.0-4.8); Lymphocytes % (A) 14 %; MCH 28.6 pg (25.0-35.0); MCHC 31.8 g/dL (31.0-37.0); Mean Platelet Volume 9.3; Monocytes # (A) 0.5 k/uL (0-1.0); Monocytes % (A) 5 %; Neutrophils # (A) 8.2 k/uL (1.3-7.7); Neutrophils % (A) 76 %; Platelet Count 217 k/uL (150-450); Poikilocytosis Slight; RDW 16.4 % (11.5-15.5); WBC 10.9 k/uL (3.8-10.6)
[2017-09-27 06:46] LABS: Ionized Calcium 4.9 mg/dL (4.5-5.3)
--- NOTE | 2017-09-27 06:53 | XR ---
EXAMINATION TYPE: XR chest 1V portable DATE OF EXAM: 09/27/2017 CLINICAL HISTORY: Difficulty breathing progress study. Post open cardiac surgery progress study. TECHNIQUE: Single AP portable semiupright view of the chest is obtained. COMPARISON: Chest x-ray from one day earlier and older studies. FINDINGS: There is mediastinal drainage catheter redemonstrated. Sternal wires and cardiac valvular device are redemonstrated. There is additional metallic aortic valve redemonstrated. There is stable right internal jugular [place]-Carson catheter and overlying epicardial pacer wires. There is persistent cardiomegaly with central vascular congestion and felt tiny left pleural effusion with patchy bibasilar atelectasis and/or infiltrate that remains present. No sizable pneumothorax. O sseous structures are intact. IMPRESSION: Overall stable findings, cardiomegaly with central vascular congestion and patchy bibas ilar atelectasis and/or infiltrate with suspected small left pleural effusion all redemonstrated.
[2017-09-27 06:56] LABS: ALT 19 U/L (21-72); AST 57 U/L (17-59); Albumin 3.3 g/dL (3.5-5.0); Alkaline Phosphatase 54 U/L (38-126); Anion Gap 9 mmol/L; Blood Urea Nitrogen 22 mg/dL (9-20); Calcium 9.2 mg/dL (8.4-10.2); Carbon Dioxide 20 mmol/L (22-30); Chloride 105 mmol/L (98-107); Glucose 122 mg/dL (74-99); Potassium 4.9 mmol/L (3.5-5.1); Sodium 134 mmol/L (137-145); Total Bilirubin 0.7 mg/dL (0.2-1.3)
[2017-09-27] MEDS: HYDROcodone/APAP 5-325MG 1 EACH TAB PO PRN ×3 (07:14→20:50)
[2017-09-27] MEDS: hydrALAZINE HCL 25 MG TAB PO SCH ×3 (07:14→21:00)
[2017-09-27] MEDS: LEVOTHYROXINE 25 MCG TAB PO SCH (07:14)
[2017-09-27 08:03] LABS: Prothrombin Time 10.2 sec (9.0-12.0)
[2017-09-27] MEDS: IPRATROPIUM-ALBUTEROL 3 ML NEB INHALATION SCH ×4 (09:11→20:35)
[2017-09-27] MEDS: ASPIRIN 81 MG PO SCH (09:46)
[2017-09-27] MEDS: HEPARIN SODIUM,PORCINE 5,000 UNIT/ML 1 ML VIAL SQ SCH ×3 (09:46→23:59)
[2017-09-27] MEDS: CLOPIDOGREL 75 MG TAB PO SCH (09:46)
[2017-09-27] MEDS: FUROSEMIDE 10 MG/ML 4 ML VIAL IV SCH (09:47)
[2017-09-27] MEDS: FLUoxetine HCL 20 MG CAP PO SCH (09:47)
[2017-09-27] MEDS: NICOTINE 21MG/24HR PATCH TRANSDERM SCH (09:47)
[2017-09-27] MEDS: MUPIROCIN 2% OINT 22 GM TUBE TOPICAL SCH ×2 (09:48→20:49)
[2017-09-27] MEDS: INSULIN ASPART 100 UNIT/ML 1 ML 10 ML VIAL SQ SCH ×4 (09:48→20:48)
[2017-09-27] MEDS: CHLORHEXIDINE GLUCONATE 15 ML CUP MUCOUS MEM SCH (09:59)
[2017-09-27] MEDS: MEROPENEM 500 MG in SODIUM CHLORIDE 0.9% 50 ML IVPB SCH ×3 (09:59→23:59)
--- NOTE | 2017-09-27 10:14 | P.PN ---
Subjective Progress Note Date: 09/27/17 Principal diagnosis: Severe mitral valve regurgitation, rheumatic traumatic atrial valve disorder, mild aortic valve regurgitation, mild to moderate left ventricular dysfunction. Previous history of chronic persistent atrial fibrillation history of Eliquis for anticoagulation, COPD depression, peripheral artery disease with right toe gangrene and moderate to severe right ICA stenosis, chronic nicotine dependence , chronic kidney disease stage III, hypertension, coronary artery disease with previous stent placement, GERD, hypothyroidism, preoperative pneumonia with sputum culture positive for Enterobacter cloacae and Klebsiella oxytoca, preoperative urinary tract infection urine culture positive for Escherichia coli. POD #2, quarter preserving mitral valve replacement using a #27 mm pericardial Magna ease, biatrial 4 Albert maze procedure using radiofrequency and cryoablation , exclusion of the left atrial appendage using a 40 mm Atriclip, intraoperative transesophageal echocardiogram and epi-aortic scanning. Status post cardiac catheterization on 09/25/2017 demonstrating a patent LAD stent and no significant coronary stenosis. Status post neck on 09/18/2017 CTA demonstrating severe right internal carotid artery estimated at greater than 70%, moderate to severe narrowing of the proximal left internal carotid artery between 50-69%. Status post angiogram on 09/21/2017, no stent placement to the carotid arteries , right carotid approximately 70% stenosis, left carotid approximately 50% stenosis per angiogram. Status post cardiac arrest, reintubation for flash pulmonary edema. Patient is sitting up to the bedside chair. He is in no acute distress. He is awake, alert and oriented 3. He rates his pain 4 out of 10 on the pain scale to his chest tube insertion sites. This oxygen saturation are 95% on room air. He is achieving 750 mL on his incentive spirometry with much encouragement. Objective - Vital Signs Vital signs: Vital Signs Temp 99.2 F 09/26/17 20:00 Pulse 86 09/27/17 09:26 Resp 22 09/27/17 07:00 BP 176/90 09/27/17 07:00 Pulse Ox 93 L 09/27/17 06:30 Intake & Output 09/26/17 09/27/17 09/27/17 18:59 06:59 18:59 Intake Total 754.639 830.0 57.5 Output Total 1100 475 145 Balance -345.361 355.0 -87.5 Weight 75.6 kg Intake: IV 650 740.0 57.5 CO/CI 50 Meropenem 500 mg In 50 Sodium Chloride 0.9% 50 ml @ 100 mls/hr IVPB Q12HR AJ Rx#:[id number] Milrinone-D5w Pmx 20 mg 54.0 4.5 In Dextrose/Water 1 100ml .bag @ Per Protocol IV . Q0M AJ Rx#:[id number] NS 600 50 Pressure Bag 36 3 lactated ringers 600 Intake, IV Titration 104.639 Amount Clevidipine Butyrate 25 37.067 mg In Empty Bag 1 bag @ 1 MG/HR 2 mls/hr IV .Q24H AJ Rx#:[id number] Milrinone-D5w Pmx 20 mg 67.572 In Dextrose/Water 1 100ml .bag @ Per Protocol IV . Q0M AJ Rx#:[id number] Oral 90 Output: Chest Tube Drainage 40 80 20 Chest Tube Mediastinal 40 80 20 Urine 1060 395 125 Other: Voiding Method Indwelling Catheter Indwelling Catheter ABP, PAP, CO, CI - Last Documented Arterial Blood Pressure 123/103 Pulmonary Artery Pressure 58/31 Cardiac Output 4.6 Cardiac Index 2.4 - Constitutional General appearance: Present: cooperative, no acute distress, thin - EENT ENT: Present: hearing grossly normal - Neck Details: No JVD, no lymphadenopathy, neck is supple. Right IJ Cordis with Ceres-Carson catheter in place. 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 Respirations are symmetrical and nonlabored. Oxygen saturation are 95% on room air. He is achieving 750 mL with much encouragement on his incentive spirometry. Mediastinal chest tubes without air leak. Draining thin serosanguineous drainage. No air leak present. 20 mL output in the last 8 hours, 150 mL output in 24 hours. - Cardiovascular Details: Regular rhythm and rate. S1 and S2 present, negative for S3, gallop or murmur. Sternum is stable. Bedside telemetry showing accelerated junctional heart rate 89. Heart hugger is in place, and he is demonstrating appropriate use with encouragement. Knee-high SARMAD hose in place to his right leg and sequential compression devices in place to his bilateral lower extremities. No edema present. Atrial and ventricular pacemaker wires in place and secured and are connected to pacemaker generator on backup mode. - Gastrointestinal Gastrointestinal Comment(s): Abdomen is soft, nontender and nondistended. Hypoactive bowel sounds all 4 abdominal quadrants. He is tolerating a heart healthy diet. Passing flatus. - Genitourinary Genitourinary Comment(s): Beaulieu catheter for accurate I&O. Adequate urine output. 365 mL of clear yellow urine in the last 8 hours. - Integumentary Integumentary Comment(s): Midline sternal incision clean dry and well approximated. No drainage or redness present. Dermabond dressing clean and dry. Skin is warm, and dry. Dry gangrenous left big toe and left second toe. Dressing clean and dry. DuoDERM clean and dry to his coccyx and left scapular area. - Neurologic Neurologic: Present: CNII-XII intact - Musculoskeletal Musculoskeletal: Present: generalized weakness, strength equal bilaterally - Psychiatric Psychiatric: Present: A&O x's 3, appropriate affect, intact judgment & insight - Allied health notes Allied health notes reviewed: nursing - Labs CBC & Chem 7: 09/27/17 06:15 09/27/17 06:15 Labs: Abnormal Lab Results - Last 24 Hours (Table) 09/26/17 09/26/17 09/26/17 Range/Units 10:08 12:42 18:17 WBC (3.8-10.6) k/uL RBC (4.30-5.90) m/uL Hgb (13.0-17.5) gm/dL Hct (39.0-53.0) % RDW (11.5-15.5) % Neutrophils # (1.3-7.7) k/uL Sodium (137-145) mmol/L Carbon Dioxide (22-30) mmol/L BUN (9-20) mg/dL Glucose (74-99) mg/dL POC Glucose (mg/dL) 151 H 127 H 107 H (75-99) mg/dL ALT (21-72) U/L Total Protein (6.3-8.2) g/dL Albumin (3.5-5.0) g/dL 09/26/17 09/27/17 09/27/17 Range/Units 21:47 06:15 06:15 WBC 10.9 H (3.8-10.6) k/uL RBC 3.00 L (4.30-5.90) m/uL Hgb 8.6 L (13.0-17.5) gm/dL Hct 27.0 L (39.0-53.0) % RDW 16.4 H (11.5-15.5) % Neutrophils # 8.2 H (1.3-7.7) k/uL Sodium 134 L (137-145) mmol/L Carbon Dioxide 20 L (22-30) mmol/L BUN 22 H (9-20) mg/dL Glucose 122 H (74-99) mg/dL POC Glucose (mg/dL) 123 H (75-99) mg/dL ALT 19 L (21-72) U/L Total Protein 6.0 L (6.3-8.2) g/dL Albumin 3.3 L (3.5-5.0) g/dL Microbiology - Last 24 Hours (Table) 09/22/17 06:59 Blood Culture - Preliminary Blood No Growth after 120 hours - Imaging and Cardiology Chest x-ray: report reviewed, image reviewed Assessment and Plan (1) Hypertension Current Visit: Yes Status: Chronic Code(s): I10 - ESSENTIAL (PRIMARY) HYPERTENSION SNOMED Code(s): 49228707 (2) Chronic kidney disease, stage III (moderate) Current Visit: Yes Status: Chronic Code(s): N18.3 - CHRONIC KIDNEY DISEASE, STAGE 3 (MODERATE) SNOMED Code(s): 744890571 (3) Hypothyroidism Current Visit: Yes Status: Chronic Code(s): E03.9 - HYPOTHYROIDISM, UNSPECIFIED SNOMED Code(s): 58437259 (4) History of depression Current Visit: Yes Status: Chronic Code(s): Z86.59 - PERSONAL HISTORY OF OTHER MENTAL AND BEHAVIORAL DISORDERS SNOMED Code(s): 484015290 (5) COPD (chronic obstructive pulmonary disease) Current Visit: Yes Status: Chronic Code(s): J44.9 - CHRONIC OBSTRUCTIVE PULMONARY DISEASE, UNSPECIFIED SNOMED Code(s): 28340719 (6) Acute and chronic respiratory failure with hypoxia Current Visit: Yes Status: Acute Code(s): J96.21 - ACUTE AND CHRONIC RESPIRATORY FAILURE WITH HYPOXIA SNOMED Code(s): 94394586 (7) CAD (coronary artery disease) Current Visit: Yes Status: Acute Code(s): I25.10 - ATHSCL HEART DISEASE OF [place] CORONARY ARTERY W/O ANG PCTRS SNOMED Code(s): 81205009 (8) Peripheral vascular disease Current Visit: Yes Status: Chronic Code(s): I73.9 - PERIPHERAL VASCULAR DISEASE, UNSPECIFIED SNOMED Code(s): 639996881 (9) New onset a-fib Current Visit: Yes Status: Acute Code(s): I48.91 - UNSPECIFIED ATRIAL FIBRILLATION SNOMED Code(s): 17024942 (10) Mild aortic valve regurgitation Current Visit: Yes Status: Acute Code(s): I35.1 - NONRHEUMATIC AORTIC (VALVE ) INSUFFICIENCY SNOMED Code(s): 61932454 (11) Postoperative UTI (urinary tract infection) Current Visit: Yes Status: Acute Code(s): N99.89 - OTH POSTPROCEDURAL COMPLICATIONS AND DISORDERS OF SYS; N39.0 - URINARY TRACT INFECTION, SITE NOT SPECIFIED SNOMED Code(s): 793810455 (12) Moderate left ventricular systolic dysfunction Current Visit: Yes Status: Acute Code(s): I51.9 - HEART DISEASE, UNSPECIFIED SNOMED Code(s): 990407672 (13) Pneumonia Current Visit: Yes Status: Acute Code(s): J18.9 - PNEUMONIA, UNSPECIFIED ORGANISM SNOMED Code(s): 095219307 (14) Carotid artery stenosis Current Visit: Yes Status: Chronic Code(s): I65.29 - OCCLUSION AND STENOSIS OF UNSPECIFIED CAROTID ARTERY SNOMED Code(s): 17294849 (15) Gangrenous toe Current Visit: Yes Status: Chronic Code(s): I96 - GANGRENE, NOT ELSEWHERE CLASSIFIED SNOMED Code(s): 815925209 (16) Mitral valve regurgitation Current Visit: Yes Status: Chronic Code(s): I34.0 - NONRHEUMATIC MITRAL ( VALVE) INSUFFICIENCY SNOMED Code(s): 92313404 Plan: 1. Continue aspirin and Plavix. Hold beta skylar for now. 2. Encourage incentive spirometry use 10 times every hour. Encourage continued smoking cessation. 3. Continue hydralazine 25 mg by mouth twice a day for afterload reduction. 4. GI/DVT prophylaxis. 5. Blood sugar management per primary care service. 6. Encourage increase in activity as tolerated, PT/OT and cardiac rehab following. 7. Will monitor daily labs and chest x-rays. Monitor I/O. 8. We will discontinue his Primacor drip. 9. We will discontinue his Ceres-Carson catheter and keep his course in place to continuous CVP monitoring. 10. We will remove his mediastinal chest tubes. 11. More recommendations to follow as the patient progresses in his care. Time with Patient: Greater than 30
--- NOTE | 2017-09-27 11:02 | P.PN ---
Subjective Patient is seen in follow-up for acute kidney injury. Renal function is improved with creatinine at 1.2 today. He is status post mitral valve replacement on September 25. He is awake and alert and currently resting in bed. Admits to soreness at the surgical site. Currently maintained on antibiotics for E. coli UTI as well as Enterobacter and Klebsiella noted on sputum culture. He is nonoliguric. Blood pressures have been running a little on the higher side. Oral intake is good. Vital signs are stable. General: The patient appeared well nourished and normally developed. Currently intubated. HEENT: Head exam is unremarkable. Neck is without jugular venous distension. LUNGS: Lungs are clear to auscultation and percussion. Breath sounds decreased. HEART: Rate and Rhythm are regular. First and second heart sounds normal. No murmurs, rubs or gallops. ABDOMEN: Abdominal exam reveals normal bowel sounds. Non-tender and non- distended. No evidence of peritonitis. EXTREMITITES: No clubbing, cyanosis, or edema. Objective - Vital Signs Vital signs: Vital Signs Temp 99.2 F 09/26/17 20:00 Pulse 86 09/27/17 09:26 Resp 22 09/27/17 07:00 BP 176/90 09/27/17 07:00 Pulse Ox 93 L 09/27/17 06:30 Intake & Output 09/26/17 09/27/17 09/27/17 18:59 06:59 18:59 Intake Total 754.639 830.0 57.5 Output Total 1100 475 145 Balance -345.361 355.0 -87.5 Weight 75.6 kg Intake: IV 650 740.0 57.5 CO/CI 50 Meropenem 500 mg In 50 Sodium Chloride 0.9% 50 ml @ 100 mls/hr IVPB Q12HR AJ Rx#:[id number] Milrinone-D5w Pmx 20 mg 54.0 4.5 In Dextrose/Water 1 100ml .bag @ Per Protocol IV . Q0M AJ Rx#:[id number] NS 600 50 Pressure Bag 36 3 lactated ringers 600 Intake, IV Titration 104.639 Amount Clevidipine Butyrate 25 37.067 mg In Empty Bag 1 bag @ 1 MG/HR 2 mls/hr IV .Q24H AJ Rx#:[id number] Milrinone-D5w Pmx 20 mg 67.572 In Dextrose/Water 1 100ml .bag @ Per Protocol IV . Q0M [facility] Rx#:[id number] Oral 90 Output: Chest Tube Drainage 40 80 20 Chest Tube Mediastinal 40 80 20 Urine 1060 395 125 Other: Voiding Method Indwelling Catheter Indwelling Catheter ABP, PAP, CO, CI - Last Documented Arterial Blood Pressure 123/103 Pulmonary Artery Pressure 58/31 Cardiac Output 4.6 Cardiac Index 2.4 - Labs CBC & Chem 7: 09/27/17 06:15 09/27/17 06:15 Labs: Abnormal Lab Results - Last 24 Hours (Table) 09/26/17 09/26/17 09/26/17 Range/Units 12:42 18:17 21:47 WBC (3.8-10.6) k/uL RBC (4.30-5.90) m/uL Hgb (13.0-17.5) gm/dL Hct (39.0-53.0) % RDW (11.5-15.5) % Neutrophils # (1.3-7.7) k/uL Sodium (137-145) mmol/L Carbon Dioxide (22-30) mmol/L BUN (9-20) mg/dL Glucose (74-99) mg/dL POC Glucose (mg/dL) 127 H 107 H 123 H (75-99) mg/dL ALT (21-72) U/L Total Protein (6.3-8.2) g/dL Albumin (3.5-5.0) g/dL 09/27/17 09/27/17 Range/Units 06:15 06:15 WBC 10.9 H (3.8-10.6) k/uL RBC 3.00 L (4.30-5.90) m/uL Hgb 8.6 L (13.0-17.5) gm/dL Hct 27.0 L (39.0-53.0) % RDW 16.4 H (11.5-15.5) % Neutrophils # 8.2 H (1.3-7.7) k/uL Sodium 134 L (137-145) mmol/L Carbon Dioxide 20 L (22-30) mmol/L BUN 22 H (9-20) mg/dL Glucose 122 H (74-99) mg/dL POC Glucose (mg/dL) (75-99) mg/dL ALT 19 L (21-72) U/L Total Protein 6.0 L (6.3-8.2) g/dL Albumin 3.3 L (3.5-5.0) g/dL Microbiology - Last 24 Hours (Table) 09/22/17 06:59 Blood Culture - Preliminary Blood No Growth after 120 hours Assessment and Plan Plan: Assessment: #1. Nonoliguric acute kidney injury secondary to ATN secondary to contrast- induced nephropathy and hemodynamic instability. Creatinine improved to 1.2 today. #2. Mild hyperkalemia secondary to acute kidney injury and lactated Ringer's. Improved. #3. Chronic kidney disease stage III with baseline creatinine in the range of 1.2-1.4 secondary to nephrosclerosis. #4. Mitral valve regurgitation status post mitral valve replacement on 2017. #5. Pneumonia with sputum culture positive for Enterobacter and Klebsiella. #6. UTI with urine culture positive for E. coli. #7. Systolic CHF with ejection fraction of 40%. #8. Atrial fibrillation. Currently rate controlled. #9. Anemia status post blood transfusion on September 25. Hemoglobin 8.3 this morning. #10. Hypertension with chronic kidney disease. #11. Metabolic acidosis secondary to acute kidney injury. Plan: Continue Lasix 40 mg once daily. Avoid nephrotoxic agents and hypotensive episodes. Continue to monitor renal function and urine output. Antibiotics per infectious disease recommendations. Increase hydralazine to 50 mg 3 times daily. To hold antihypertensives for systolic blood pressure less than 120. Repeat electrolytes in the morning.
[2017-09-27] MEDS: PANTOPRAZOLE 40 MG TABLET PO SCH (11:25)
[2017-09-27 11:30] LABS: Glucose,Whole Blood 146 mg/dL (75-99)
--- NOTE | 2017-09-27 11:46 | P.PN ---
Subjective Progress Note Date: 09/27/17 Principal diagnosis: Severe mitral valve regurgitation, recurrent episodes of flash pulmonary edema and respiratory failure requiring intubation and mechanical ventilation. On 09/25/2017 patient seen post mitral valve replacement, modified Albert maze cryoablation, and exclusion of the left atrial appendage. Patient is intubated and sedated on mechanical ventilation with the vent settings assist control mode with a rate of 12, tidal volume 500, FiO2 100%, and PEEP of 5. Intraoperatively he received 1 unit of packed red blood cells for hemoglobin of 7.0. Patient has 2 mediastinal chest tubes that are Y-connected together, there is about 35 mL of sanguinous output in the atrium collection chamber. Patient's rhythm is sinus with a rate of any BPM. Patient has epicardial wires , connected to a temporary external pacemaker, with settings of AAI with a rate of 80 BPM. PA pressures of 48/25, with a mean of 29. The cardiac output and index are 4.5 and 2.4 respectively. Maintenance fluids are LR at 50 ML per hour , clevidipine is currently running at 2 mg per hour, Primacor is infusing at 0.2 mics per kilo per minute, and nitroglycerin at 5 mics per minute. Microbiology showed a sputum culture from 09/22/2017 positive for Enterobacter o 'clock K and Klebsiella oxytoca, and urine cultures positive for E. coli. Patient remains on a combination of cefazolin and vancomycin per ID service recommendation. This morning's lab work showed a PVC of 5.5, hemoglobin of 9.8 , renal profile improving, BUN of 21, creatinine of 1.5. Postop blood work is pending. Postop blood gases pending as well. Patient was reevaluated today on 09/26/2017, he is postoperative day #1. I saw him yesterday shortly after his surgery, and he was on mechanical ventilation. At night the patient was weaned and extubated uneventfully, and he is now on nasal cannula, in no distress. Chest x-ray showed minimal interstitial edema, however the patient responded well to Lasix earlier today by her to thoracic surgery. Patient is relatively asymptomatic, sitting in a bedside chair. Chest x-ray and labs were reviewed. His renal profile is improving creatinine is down to 1.40, it was 1.70 yesterday. Rest of the labs were unremarkable. Reevaluated today on 09/27/2017, patient is postoperative day #2. He is status post mitral valve replacement as noted above. Patient is off oxygen, he is on room air, saturating in the 90s, awake, in no form of respiratory distress whatsoever. Chest x-ray continues to show steady improvement of his pulmonary edema. CBC is relatively normal hemoglobin is 8.6. Electrolytes are normal BUN is 22 creatinine is even better today 1.20. Objective - Vital Signs Vital signs: Vital Signs Temp 99.2 F 09/26/17 20:00 Pulse 86 09/27/17 09:26 Resp 22 09/27/17 07:00 BP 176/90 09/27/17 07:00 Pulse Ox 93 L 09/27/17 06:30 Intake & Output 09/26/17 09/27/17 09/27/17 18:59 06:59 18:59 Intake Total 754.639 830.0 57.5 Output Total 1100 475 145 Balance -345.361 355.0 -87.5 Weight 75.6 kg Intake: IV 650 740.0 57.5 CO/CI 50 Meropenem 500 mg In 50 Sodium Chloride 0.9% 50 ml @ 100 mls/hr IVPB Q12HR AJ Rx#:[id number] Milrinone-D5w Pmx 20 mg 54.0 4.5 In Dextrose/Water 1 100ml .bag @ Per Protocol IV . Q0M AJ Rx#:[id number] NS 600 50 Pressure Bag 36 3 lactated ringers 600 Intake, IV Titration 104.639 Amount Clevidipine Butyrate 25 37.067 mg In Empty Bag 1 bag @ 1 MG/HR 2 mls/hr IV .Q24H AJ Rx#:[id number] Milrinone-D5w Pmx 20 mg 67.572 In Dextrose/Water 1 100ml .bag @ Per Protocol IV . Q0M AJ Rx#:[id number] Oral 90 Output: Chest Tube Drainage 40 80 20 Chest Tube Mediastinal 40 80 20 Urine 1060 395 125 Other: Voiding Method Indwelling Catheter Indwelling Catheter ABP, PAP, CO, CI - Last Documented Arterial Blood Pressure 123/103 Pulmonary Artery Pressure 58/31 Cardiac Output 4.6 Cardiac Index 2.4 - Exam GENERAL EXAM: Revealed a 62-year-old -[place] male, on room air, in no distress. HEAD: Normocephalic. EYES: Normal reaction of pupils, equal size. NOSE: Clear with pink turbinates. THROAT: No erythema or exudates. NECK: No masses, no JVD. CHEST: No chest wall deformity. LUNGS: Clear throughout, no crackles or rhonchi or wheezes. CVS: S1 and S2 normal,, no gallops, 2/6 systolic murmur throughout the precordium. ABDOMEN: No hepatosplenomegaly, normal bowel sounds, no guarding or rigidity. SPINE: No scoliosis or deformity SKIN: No rashes CENTRAL NERVOUS SYSTEM: Alert oriented 3, no gross focal neurologic deficit noted. EXTREMITIES: There is no peripheral edema. No clubbing, no cyanosis. Peripheral pulses are intact. - Labs CBC & Chem 7: 09/27/17 06:15 09/27/17 06:15 Labs: Abnormal Lab Results - Last 24 Hours (Table) 09/26/17 09/26/17 09/26/17 Range/Units 12:42 18:17 21:47 WBC (3.8-10.6) k/uL RBC (4.30-5.90) m/uL Hgb (13.0-17.5) gm/dL Hct (39.0-53.0) % RDW (11.5-15.5) % Neutrophils # (1.3-7.7) k/uL Sodium (137-145) mmol/L Carbon Dioxide (22-30) mmol/L BUN (9-20) mg/dL Glucose (74-99) mg/dL POC Glucose (mg/dL) 127 H 107 H 123 H (75-99) mg/dL ALT (21-72) U/L Total Protein (6.3-8.2) g/dL Albumin (3.5-5.0) g/dL 09/27/17 09/27/17 09/27/17 Range/Units 06:15 06:15 11:28 WBC 10.9 H (3.8-10.6) k/uL RBC 3.00 L (4.30-5.90) m/uL Hgb 8.6 L (13.0-17.5) gm/dL Hct 27.0 L (39.0-53.0) % RDW 16.4 H (11.5-15.5) % Neutrophils # 8.2 H (1.3-7.7) k/uL Sodium 134 L (137-145) mmol/L Carbon Dioxide 20 L (22-30) mmol/L BUN 22 H (9-20) mg/dL Glucose 122 H (74-99) mg/dL POC Glucose (mg/dL) 146 H (75-99) mg/dL ALT 19 L (21-72) U/L Total Protein 6.0 L (6.3-8.2) g/dL Albumin 3.3 L (3.5-5.0) g/dL Microbiology - Last 24 Hours (Table) 09/22/17 06:59 Blood Culture - Preliminary Blood No Growth after 120 hours Assessment and Plan Assessment: Severe mitral regurgitation, with recurrent episodes of systolic congestive heart failure, status post mitral valve replacement, biatrial modified Albert maze procedure and exclusion of the left atrial appendix, postop day #2 Recurrent episodes of hypoxic respiratory failure requiring intubation and mechanical ventilation, mostly secondary to mitral valve disease, and the patient is developing flash pulmonary edema, resolved since the patient had his mitral valve replacement. Atrial fibrillation/RVR, currently in sinus rhythm. Presently the patient seems in a junctional rhythm. History of CAD with previous stent placement History of COPD History of essential hypertension History of depression Peripheral vascular occlusive disease Hypothyroidism Hypertensive nephrosclerosis with acute on chronic kidney disease, improving, creatinine is 1.2 today. Acute cellulitis and dry gangrene of the left big toe, status post debridement Bilateral carotid disease, worse on the right with a greater than 70% obstruction, angiogram showed the obstruction was nonsignificant. Positive sputum cultures and urine cultures as noted above in my previous documentation, and his antibiotics were switched to Merrem, it will cover his Enterobacter, Klebsiella, and E. coli. Recommendation: Continue present supportive care measures, continue antibiotics , bronchodilators, incentive spirometry, early ambulation, and hopefully the patient could be eventually discharged to a rehab facility in the next few days. Time with Patient: Less than 30
--- NOTE | 2017-09-27 15:13 | PN ---
PROGRESS NOTE DATE OF SERVICE: 09/27/2017 REASON FOR FOLLOWUP: 1. Gram-negative pneumonia. 2. Left first and second toe wound. INTERVAL HISTORY: The patient is afebrile. He is breathing comfortably on room air. Denies having any shortness of breath. Minimal chest pain from the surgery but controlled with pain medication. No nausea, vomiting. Tolerating a regular diet. No abdominal pain, no diarrhea. PHYSICAL EXAMINATION: Blood pressure 151/73 with a pulse of 93, temperature of 98. He is 93% on room air. General description is a middle-aged male up in the bed, in no distress. RESPIRATORY SYSTEM: Unlabored breathing with decreased breath sounds in the bases, no wheeze. HEART: S1, S2. Regular rate and rhythm. ABDOMEN: Soft, no tenderness. LABS: Hemoglobin 8.6, white count 10.9 with a BUN of 22, creatinine 1.20. DIAGNOSTIC IMPRESSION AND PLAN: 1. Patient with Enterobacter Klebsiella pneumoniae, gram-negative, possible aspiration. Currently covered with meropenem. Also possible Escherichia coli urinary tract infection. 2. Left big and second toe wound. Local wound care with Aquacel Silver. Continue supportive care. MMODL / IJN: [id number] /
[2017-09-27 17:47] LABS: Glucose,Whole Blood 120 mg/dL (75-99)
--- NOTE | 2017-09-27 17:55 | PN ---
PROGRESS NOTE DATE OF SERVICE: 09/27/2017. INTERVAL HISTORY: This 62-year-old gentleman who was admitted with severe mitral regurgitation, underwent mitral valve replacement. Patient being closely monitored. Chest tube was removed. No chest pain. No palpitations. No fever. PHYSICAL EXAM: Alert and oriented x3. The pulse is 92, blood pressure is 176/90, respiration 20, temperature normal, pulse ox 93% on room air. HEENT: Conjunctivae normal. Neck: No jugular venous distention. Cardiovascular: S1, S2 muffled. Respiratory: Breath sounds diminished at the bases. A few scattered rhonchi and crackles. ABDOMEN: Soft, nontender. Central nervous system: No focal deficits. Legs no edema no swelling. LABS: WBC 6.2, hemoglobin 8.4, sodium 134. ASSESSMENT: 1. Severe mitral regurgitation status post mitral valve replacement. 2. Recurrent systolic heart failure secondary to severe mitral regurgitation. 3. Acute hypoxic respiratory failure status post mechanical ventilation, most likely secondary to multiple recent flash pulmonary edema. 4. Atrial fibrillation, currently in sinus rhythm paroxysmal. 5. History of coronary artery disease, stent placement. 6. Chronic obstructive pulmonary disease. 7. History of peripheral vascular disease. 8. Hypothyroidism. 9. Acute cellulitis and dry gangrene of the left big toe, status post debridement. 10.Bilateral carotid stenosis 70%. RECOMMENDATIONS AND DISCUSSION: Recommend to continue current management and continue symptomatic treatment. Continue to monitor closely. Otherwise, I would recommend continue with antiplatelet agents and bronchodilators and empiric antibiotics. The patient is on Merrem. Closely follow with multiple consultants. Guarded prognosis. Further recommendations to follow. MMODL / IJN: [id number] /
--- NOTE | 2017-09-27 18:49 | PN ---
PROGRESS NOTE Mr. Maradiaga is a gentleman who underwent mitral valve replacement by Dr. Huddleston. He is doing very well. His blood pressure is slightly elevated. Hydralazine has been initiated on this patient. He remains in what seems to be accelerated junctional rhythm. I cannot see any clear-cut P waves. He is doing fairly well with his incentive spirometry. Blood pressure today is 150/70, pulse rate is about 80 per minute. Accelerated junctional rhythm, JVD 1 cm. No carotid bruit. S1, S2 heard normally. Short systolic murmur noted. Lungs reveal fair air entry with diminished breath sounds on both bases. Abdomen is soft. Rest of physical examination unchanged. I would recommend that we continue current medications. Optimal BP control and also incentive spirometry. Discussed my thoughts with the patient. SOLO / ABRAHAMN: [id number] /
[2017-09-27 20:37] LABS: Glucose,Whole Blood 165 mg/dL (75-99)
[2017-09-27] MEDS: SODIUM CHLORIDE 0.9% 1,000 ML IV SCH (20:48)
[2017-09-27] MEDS: SENNOSIDES-DOCUSATE SODIUM 1 EACH TAB PO SCH (20:50)
[2017-09-28] MEDS: HYDROcodone/APAP 5-325MG 1 EACH TAB PO PRN ×2 (06:17→19:46)
[2017-09-28] MEDS: LEVOTHYROXINE 25 MCG TAB PO SCH (06:51)
[2017-09-28 06:55] LABS: Anisocytosis Slight; Basophils # (A) 0.1 k/uL (0-0.2); Basophils % (A) 1 %; Eosinophils # (A) 0.4 k/uL (0-0.7); Eosinophils % (A) 3 %; HCT 28.2 % (39.0-53.0); HGB 8.8 gm/dL (13.0-17.5); Hypochromasia Moderate; Lymphocytes % (A) 14 %; MCH 28.8 pg (25.0-35.0); MCHC 31.1 g/dL (31.0-37.0); MCV 92.4 fL (80.0-100.0); Mean Platelet Volume 8.2; Monocytes # (A) 0.6 k/uL (0-1.0); Monocytes % (A) 4 %; Neutrophils # (A) 10.9 k/uL (1.3-7.7); Neutrophils % (A) 76 %; Platelet Count 303 k/uL (150-450); RBC 3.05 m/uL (4.30-5.90); RDW 16.9 % (11.5-15.5); WBC 14.4 k/uL (3.8-10.6)
[2017-09-28 07:14] LABS: ALT 32 U/L (21-72); AST 43 U/L (17-59); Albumin 3.3 g/dL (3.5-5.0); Alkaline Phosphatase 61 U/L (38-126); Anion Gap 11 mmol/L; Blood Urea Nitrogen 22 mg/dL (9-20); Calcium 9.2 mg/dL (8.4-10.2); Carbon Dioxide 22 mmol/L (22-30); Chloride 106 mmol/L (98-107); Glucose 108 mg/dL (74-99); Potassium 4.5 mmol/L (3.5-5.1); Sodium 139 mmol/L (137-145); Total Bilirubin 0.8 mg/dL (0.2-1.3)
[2017-09-28 07:26] LABS: Glucose,Whole Blood 125 mg/dL (75-99)
[2017-09-28] MEDS: HEPARIN SODIUM,PORCINE 5,000 UNIT/ML 1 ML VIAL SQ SCH ×3 (07:26→23:29)
[2017-09-28] MEDS: FLUoxetine HCL 20 MG CAP PO SCH (07:26)
[2017-09-28] MEDS: ASPIRIN 325 MG TAB PO SCH (07:26)
[2017-09-28] MEDS: CLOPIDOGREL 75 MG TAB PO SCH (07:26)
[2017-09-28] MEDS: PANTOPRAZOLE 40 MG TABLET PO SCH (07:26)
[2017-09-28] MEDS: INSULIN ASPART 100 UNIT/ML 1 ML 10 ML VIAL SQ SCH ×4 (07:26→21:00)
[2017-09-28] MEDS: FUROSEMIDE 10 MG/ML 4 ML VIAL IV SCH (07:27)
[2017-09-28] MEDS: hydrALAZINE HCL 25 MG TAB PO SCH ×3 (07:27→19:46)
[2017-09-28] MEDS: MEROPENEM 500 MG in SODIUM CHLORIDE 0.9% 50 ML IVPB SCH ×3 (07:27→23:29)
[2017-09-28] MEDS: MUPIROCIN 2% OINT 22 GM TUBE TOPICAL SCH ×2 (07:28→19:46)
[2017-09-28] MEDS: NICOTINE 21MG/24HR PATCH TRANSDERM SCH (07:28)
--- NOTE | 2017-09-28 07:42 | XR ---
EXAMINATION TYPE: XR chest 1V portable DATE OF EXAM: 09/28/2017 Comparison: 09/27/2017 Clinical History: 62-year-old male Post Operative Cardiac Surgery Findings: Right IJ sheath remains in place. Median sternotomy wires with prosthetic aortic valve. Mediastinal d rains have been removed in the interval. Heart is mildly enlarged. Perihilar and interstitial densiti es persist. Small left effusion with more dense retrocardiac opacity also persists. No appreciable pn eumothorax. Impression: 1. Continued pulmonary vascular congestion/interstitial edema. 2. Bibasilar areas of atelectasis and/or consolidation slightly increased in the interval. 3. Continued small left effusion.
[2017-09-28] MEDS: IPRATROPIUM-ALBUTEROL 3 ML NEB INHALATION SCH ×4 (07:49→20:42)
--- NOTE | 2017-09-28 10:11 | P.PN ---
Subjective Progress Note Date: 09/28/17 Principal diagnosis: Rheumatic traumatic mitral valve disorder, severe mitral valve regurgitation. Mild aortic valve regurgitation. Mild to moderate left ventricular dysfunction. Pneumonia. Peripheral vascular disease with right to gangrene. Chronic obstructive pulmonary disease. Peripheral vascular disease. Moderate to severe right ICA stenosis. Previous history of chronic persistent atrial fibrillation on Eliquis for anticoagulation, depression, peripheral artery disease, chronic nicotine dependence, chronic kidney disease stage III, hypertension, coronary artery disease with previous stent placement, GERD, and hypothyroidism. Status post cardiac catheterization on 09/25/2017 demonstrating a patent LAD stent and no significant coronary stenosis. Status post neck CTA demonstrating severe right internal carotid artery estimated at greater than 70%, moderate to severe narrowing of the proximal left internal carotid artery between 50-69%. Status post angiogram, no stent placement to the carotid arteries, right carotid approximately 70% stenosis, left carotid approximately 50% stenosis per angiogram. Status post cardiac arrest, reintubation for flash pulmonary edema. Preoperative sputum culture with Gram stain negative bacilli, urine culture with gram-negative bacilli, currently on Zosyn IV. POD #3 quarter preserving mitral valve replacement using a 27 mm pericardial magna ease. Biatrial full Albert maze procedure using radiofrequency and cryoablation. Exclusion of the left atrial appendage using a 40 mm AtriClip. Intraoperative transesophageal echocardiogram and epi-aortic scanning. Patient's currently sitting up in the chair in no acute distress. Denies pain, shortness of breath. No new complaints. Objective - Vital Signs Vital signs: Vital Signs Temp 99.9 F H 09/28/17 08:00 Pulse 82 09/28/17 09:00 Resp 20 09/28/17 09:00 BP 146/70 09/28/17 09:00 Pulse Ox 97 09/28/17 09:00 Intake & Output 09/27/17 09/28/17 09/28/17 18:59 06:59 18:59 Intake Total 345.5 576 169 Output Total 1082 563 935 Balance -736.5 174 766 Weight 75.6 kg 76.9 kg Intake: IV 245.5 276 69 CO/CI 20 Milrinone-D5w Pmx 20 mg 4.5 In Dextrose/Water 1 100ml .bag @ Per Protocol IV . Q0M [facility] Rx#:[id number] NS 170 240 60 Pressure Bag 51 36 9 Intake, IV Titration 100 100 Amount Meropenem 500 mg In 100 100 Sodium Chloride 0.9% 50 ml @ 100 mls/hr IVPB Q8HR [facility] Rx#:[id number] Oral 300 Output: Chest Tube Drainage 80 Chest Tube Mediastinal 80 Urine 1002 750 935 Other: Voiding Method Indwelling Catheter Indwelling Catheter Indwelling Catheter ABP, PAP, CO, CI - Last Documented Arterial Blood Pressure 123/103 Pulmonary Artery Pressure 49/27 Cardiac Output 6.2 Cardiac Index 3.3 - Constitutional General appearance: Present: cooperative, no acute distress - Respiratory Details: Lungs sounds diminished with coarse breath sounds in the bases, left greater than right. Respirations even, nonlabored. Currently on room air with oxygen saturation 96%. Able to achieve 750 mL on his incentive spirometry. Effective cough. - Cardiovascular Details: S1, S2 present. Regular rate and rhythm, accelerated junctional on telemetry. A/V epicardial pacemaker wires present, grounded. Sternum stable. Palpable peripheral pulses bilaterally. No edema present. No calf pain or tenderness noted. Right internal jugular Cordis present. Heart hugger in place with patient demonstrating appropriate use. Antiembolism stockings, SCDs present. - Gastrointestinal Gastrointestinal Comment(s): Abdomen soft, nontender, nondistended. Active bowel sounds 4 quadrants. Tolerating diet. - Genitourinary Genitourinary Comment(s): Beaulieu present draining clear, yellow urine. Output was 50-75 mL/h overnight, 900 mL since Lasix given. - Integumentary Integumentary Comment(s): Skin is warm and dry. Anterior chest incision well approximated and covered with dry intact dressing. Dressing present to left great toe. Duoderm present to coccyx and left scapular area. - Neurologic Neurologic: Present: CNII-XII intact - Musculoskeletal Musculoskeletal: Present: strength equal bilaterally - Psychiatric Psychiatric: Present: A&O x's 3, appropriate affect, intact judgment & insight - Allied health notes Allied health notes reviewed: nursing - Labs CBC & Chem 7: 09/28/17 06:50 09/28/17 06:45 Labs: Abnormal Lab Results - Last 24 Hours (Table) 09/27/17 09/27/17 09/27/17 Range/Units 11:28 17:42 20:36 WBC (3.8-10.6) k/uL RBC (4.30-5.90) m/uL Hgb (13.0-17.5) gm/dL Hct (39.0-53.0) % RDW (11.5-15.5) % Neutrophils # (1.3-7.7) k/uL BUN (9-20) mg/dL Glucose (74-99) mg/dL POC Glucose (mg/dL) 146 H 120 H 165 H (75-99) mg/dL Total Protein (6.3-8.2) g/dL Albumin (3.5-5.0) g/dL 09/28/17 09/28/17 09/28/17 Range/Units 06:45 06:50 07:24 WBC 14.4 H (3.8-10.6) k/uL RBC 3.05 L (4.30-5.90) m/uL Hgb 8.8 L (13.0-17.5) gm/dL Hct 28.2 L (39.0-53.0) % RDW 16.9 H (11.5-15.5) % Neutrophils # 10.9 H (1.3-7.7) k/uL BUN 22 H (9-20) mg/dL Glucose 108 H (74-99) mg/dL POC Glucose (mg/dL) 125 H (75-99) mg/dL Total Protein 6.0 L (6.3-8.2) g/dL Albumin 3.3 L (3.5-5.0) g/dL Microbiology - Last 24 Hours (Table) 09/22/17 06:59 Blood Culture - Final Blood No Growth after 144 hours - Imaging and Cardiology Chest x-ray: report reviewed, image reviewed Assessment and Plan (1) Acute and chronic respiratory failure with hypoxia Current Visit: Yes Status: Acute Code(s): J96.21 - ACUTE AND CHRONIC RESPIRATORY FAILURE WITH HYPOXIA SNOMED Code(s): 47366395 (2) COPD (chronic obstructive pulmonary disease) Current Visit: Yes Status: Chronic Code(s): J44.9 - CHRONIC OBSTRUCTIVE PULMONARY DISEASE, UNSPECIFIED SNOMED Code(s): 67560343 (3) Chronic kidney disease, stage III (moderate) Current Visit: Yes Status: Chronic Code(s): N18.3 - CHRONIC KIDNEY DISEASE, STAGE 3 (MODERATE) SNOMED Code(s): 829225668 (4) Gangrenous toe Current Visit: Yes Status: Chronic Code(s): I96 - GANGRENE, NOT ELSEWHERE CLASSIFIED SNOMED Code(s): 389598492 (5) History of bradycardia Current Visit: No Status: Resolved Code(s): Z86.79 - PERSONAL HISTORY OF OTHER DISEASES OF THE CIRCULATORY SYSTEM SNOMED Code(s): 269137184767908 (6) History of coronary artery disease Current Visit: No Status: Resolved Code(s): Z86.79 - PERSONAL HISTORY OF OTHER DISEASES OF THE CIRCULATORY SYSTEM SNOMED Code(s): 702867508 (7) History of depression Current Visit: Yes Status: Chronic Code(s): Z86.59 - PERSONAL HISTORY OF OTHER MENTAL AND BEHAVIORAL DISORDERS SNOMED Code(s): 244823590 (8) Hypertension Current Visit: Yes Status: Chronic Code(s): I10 - ESSENTIAL (PRIMARY) HYPERTENSION SNOMED Code(s): 33236927 (9) Hypothyroidism Current Visit: Yes Status: Chronic Code(s): E03.9 - HYPOTHYROIDISM, UNSPECIFIED SNOMED Code(s): 90130077 (10) Peripheral vascular disease Current Visit: Yes Status: Chronic Code(s): I73.9 - PERIPHERAL VASCULAR DISEASE, UNSPECIFIED SNOMED Code(s): 967512734 (11) New onset a-fib Current Visit: Yes Status: Acute Code(s): I48.91 - UNSPECIFIED ATRIAL FIBRILLATION SNOMED Code(s): 58069896 (12) Carotid artery stenosis Current Visit: Yes Status: Chronic Code(s): I65.29 - OCCLUSION AND STENOSIS OF UNSPECIFIED CAROTID ARTERY SNOMED Code(s): 27189132 (13) Mitral valve regurgitation Current Visit: Yes Status: Chronic Code(s): I34.0 - NONRHEUMATIC MITRAL ( VALVE) INSUFFICIENCY SNOMED Code(s): 10801143 Plan: 1. Continue aspirin, Plavix, heparin subcu, Apresoline. Beta skylar on hold for now. 2. Encourage incentive spirometry use 10 times every hour. Encourage continued smoking cessation. 3. Continue IV Lasix per nephrology recommendations. 4. Discontinue Cordis, Beaulieu. 5. Bronchodilators, antibiotics per pulmonology. 6. Avoid nephrotoxic agents. 7. GI/DVT prophylaxis. 8. Blood sugar management per primary care service. 9. Increase activity, ambulate as tolerated. PT/OT/cardiac rehab following. 10. Will monitor daily labs and x-rays. 11. Will transfer to [facility] today. More recommendations to follow Time with Patient: Greater than 30
--- NOTE | 2017-09-28 10:20 | PN ---
PROGRESS NOTE HISTORY: This gentleman is status post mitral valve replacement. He remains in a junctional rhythm, hemodynamically stable, recovering slowly, doing well on incentive spirometry. Blood press is 142/70. S1 and S2 heard normally. Short systolic murmur noted. Lungs reveal decent air entry. Abdomen and lower extremity exam is unchanged. PLAN: Continue current medications, incentive spirometry and pulmonary toilet. MMODL / IJN: [id number] /
--- NOTE | 2017-09-28 10:36 | P.PN ---
Subjective Patient is seen in follow-up for acute kidney injury. Renal function is improved with creatinine at 1.09 today. He is status post mitral valve replacement on September 25. He is awake and alert and currently sitting up in chair. Admits to soreness at the surgical site. Currently maintained on antibiotics for E. coli UTI as well as Enterobacter and Klebsiella noted on sputum culture. He is nonoliguric. Blood pressures are better controlled. Oral intake is good. Vital signs are stable. General: The patient appeared well nourished and normally developed. Currently intubated. HEENT: Head exam is unremarkable. Neck is without jugular venous distension. LUNGS: Lungs are clear to auscultation and percussion. Breath sounds decreased. HEART: Rate and Rhythm are regular. First and second heart sounds normal. No murmurs, rubs or gallops. ABDOMEN: Abdominal exam reveals normal bowel sounds. Non-tender and non- distended. No evidence of peritonitis. EXTREMITITES: No clubbing, cyanosis, or edema. Objective - Vital Signs Vital signs: Vital Signs Temp 99.9 F H 09/28/17 08:00 Pulse 82 09/28/17 09:00 Resp 20 09/28/17 09:00 BP 146/70 09/28/17 09:00 Pulse Ox 97 09/28/17 09:00 Intake & Output 09/27/17 09/28/17 09/28/17 18:59 06:59 18:59 Intake Total 345.5 576 169 Output Total 1082 750 935 Balance -736.5 -174 -766 Weight 75.6 kg 76.9 kg Intake: IV 245.5 276 69 CO/CI 20 Milrinone-D5w Pmx 20 mg 4.5 In Dextrose/Water 1 100ml .bag @ Per Protocol IV . Q0M [facility] Rx#:[id number] NS 170 240 60 Pressure Bag 51 36 9 Intake, IV Titration 100 100 Amount Meropenem 500 mg In 100 100 Sodium Chloride 0.9% 50 ml @ 100 mls/hr IVPB Q8HR [facility] Rx#:[id number] Oral 300 Output: Chest Tube Drainage 80 Chest Tube Mediastinal 80 Urine 1002 750 935 Other: Voiding Method Indwelling Catheter Indwelling Catheter Indwelling Catheter ABP, PAP, CO, CI - Last Documented Arterial Blood Pressure 123/103 Pulmonary Artery Pressure 49/27 Cardiac Output 6.2 Cardiac Index 3.3 - Labs CBC & Chem 7: 09/28/17 06:50 09/28/17 06:45 Labs: Abnormal Lab Results - Last 24 Hours (Table) 09/27/17 09/27/17 09/27/17 Range/Units 11:28 17:42 20:36 WBC (3.8-10.6) k/uL RBC (4.30-5.90) m/uL Hgb (13.0-17.5) gm/dL Hct (39.0-53.0) % RDW (11.5-15.5) % Neutrophils # (1.3-7.7) k/uL BUN (9-20) mg/dL Glucose (74-99) mg/dL POC Glucose (mg/dL) 146 H 120 H 165 H (75-99) mg/dL Total Protein (6.3-8.2) g/dL Albumin (3.5-5.0) g/dL 09/28/17 09/28/17 09/28/17 Range/Units 06:45 06:50 07:24 WBC 14.4 H (3.8-10.6) k/uL RBC 3.05 L (4.30-5.90) m/uL Hgb 8.8 L (13.0-17.5) gm/dL Hct 28.2 L (39.0-53.0) % RDW 16.9 H (11.5-15.5) % Neutrophils # 10.9 H (1.3-7.7) k/uL BUN 22 H (9-20) mg/dL Glucose 108 H (74-99) mg/dL POC Glucose (mg/dL) 125 H (75-99) mg/dL Total Protein 6.0 L (6.3-8.2) g/dL Albumin 3.3 L (3.5-5.0) g/dL Microbiology - Last 24 Hours (Table) 09/22/17 06:59 Blood Culture - Final Blood No Growth after 144 hours Assessment and Plan Plan: Assessment: #1. Nonoliguric acute kidney injury secondary to ATN secondary to contrast- induced nephropathy and hemodynamic instability. Creatinine improved to 1.09 today. #2. Mild hyperkalemia secondary to acute kidney injury and lactated Ringer's. Improved. #3. Chronic kidney disease stage III with baseline creatinine in the range of 1.2-1.4 secondary to nephrosclerosis. #4. Mitral valve regurgitation status post mitral valve replacement on 2017. #5. Pneumonia with sputum culture positive for Enterobacter and Klebsiella. #6. UTI with urine culture positive for E. coli. #7. Systolic CHF with ejection fraction of 40%. #8. Atrial fibrillation. Currently rate controlled. #9. Anemia status post blood transfusion on September 25. Hemoglobin 8.8 this morning. #10. Hypertension with chronic kidney disease. Better controlled. #11. Metabolic acidosis secondary to acute kidney injury. Improved. Plan: Continue Lasix 40 mg once daily. Avoid nephrotoxic agents and hypotensive episodes. Continue to monitor renal function and urine output. Antibiotics per infectious disease recommendations. Maintain current antihypertensives. To hold antihypertensives for systolic blood pressure less than 120. Repeat electrolytes in the morning. Check iron studies.
[2017-09-28 11:37] LABS: Glucose,Whole Blood 95 mg/dL (75-99)
[2017-09-28] MEDS: SODIUM CHLORIDE 0.9% 1,000 ML IV SCH (11:37)
--- NOTE | 2017-09-28 12:06 | P.CONS ---
History of Present Illness - Chief Complaint Medical debility - History of Present Illness I had the op to see patient for inpatient rehab consultation with regard to medical debility. He was admitted to [facility] September 05 with left toe injury. Seen by orthopedist for this. Patient did develop hypoxic respiratory failure and seen by Dr. Potts. Seen by Dr. Bhatti for acute kidney injury. Seen by cardiac surgery and did undergo mitral valve replacement. Seen by Dr. Alston for medical. Chest x-rays followed for congestion, atelectasis and left pleural effusion. Admitted PT and OT at this time. Previous functional history as elicited from patient: 62-year-old right-handed -Honduran male who is single lives in a first-floor apartment alone. Retired. Describes independent with own cooking, laundry, standing shower and gait with large-based quad cane. Doesn't drive. Smokes a pack per day but just quit. At least 1-[address] Mccormack is regular doctor. Family history mother with diabetes and cardiac disease. Review of Systems Review of systems: ENT: Denies sneezes or discharge. Eyes: Denies discharge or photophobia. Cardiac: Denies chest pain or palpitation. Pulmonary: Denies cough or shortness of breath. Gastrointestinal: Denies nausea, emesis, constipation, diarrhea. Genitourinary: Denies discharge or frequency. Musculoskeletal: Denies muscle or bone aches. Neurologic: Denies motor or sensory change. Endocrine: Denies shakes or sweats. Oncology: Denies cancers. Dermatologic: Denies rash, itching, pruritus. ALLERGY/immunology: Denies sneezes, rashes. Past Medical History Past Medical History: Atrial Fibrillation, Coronary Artery Disease (CAD), COPD, GERD/Reflux, Hyperlipidemia, Hypertension, Myocardial Infarction (ND), Thyroid Disorder, Vascular Disorder Additional Past Medical History / Comment(s): Pt recently admitted to [facility] with atrial fibrillation RVR, L foot swelling /cellulitis/ pain and eosinophilia undetermined etiology/ to follow up with Dr. Winters. Other Hx: Chronic kidney disease stage III, hypothyroid, PAD, diverticular dx, past ETOH abuse. Last Myocardial Infarction Date:: 09/2011 History of Any Multi-Drug Resistant Organisms: None Reported Past Surgical History: Heart Catheterization With Stent Additional Past Surgical History / Comment(s): colonoscopy, abdominal aortogram with bilateral run-offs. Past Anesthesia/Blood Transfusion Reactions: No Reported Reaction Date of Last Stent Placement:: 09/2011 Past Psychological History: Anxiety, Depression Additional Psychological History / Comment(s): Pt resides alone. He uses a cane to ambulate and has a L foot medi shoe. He does not drive. He gets to appts with his cousin. Smoking Status: Current every day smoker Past Alcohol Use History: Occasional Additional Past Alcohol Use History / Comment(s): Pt started smoking in 1977 and is a ppd smoker. He states he drinks less than 14 drinks per week but used to drink heavier. Past Drug Use History: Marijuana - Past Family History Mother Family Medical History: Diabetes Mellitus, Deep Vein Thrombosis (DVT) Medications and Allergies Home Medications Medication Instructions Recorded Confirmed Type FLUoxetine HCL [PROzac] 20 mg PO DAILY 03/26/15 09/05/17 History Levothyroxine Sodium [Synthroid] 25 mcg PO DAILY 03/26/15 09/05/17 History Apixaban [Eliquis] 5 mg PO BID tab 08/29/17 09/05/17 Rx Cephalexin [Keflex] 500 mg PO Q8HR #30 cap 08/29/17 09/05/17 Rx LORazepam [Ativan] 0.5 mg PO Q8HR PRN #20 tab 08/29/17 09/05/17 Rx Metoprolol Tartrate [Lopressor] 25 mg PO TID #90 tab 08/29/17 09/05/17 Rx Pantoprazole [Protonix] 40 mg PO AC-BRKFST #30 tablet. 08/29/17 09/05/17 Rx HYDROcodone/APAP 5-325MG [[place] 1 tab PO Q6HR PRN 09/05/17 09/05/17 History 5-325] Allergies Allergy/AdvReac Type Severity Reaction Status Date / Time No Known Allergies Allergy Verified 09/05/17 10:04 Physical Exam Vitals: Vital Signs Temp Pulse Pulse Resp BP BP Pulse Ox 09/28/17 11:55 80 09/28/17 11:48 80 09/28/17 11:37 97.0 F L 81 18 138/73 98 09/28/17 09:00 82 20 146/70 97 09/28/17 08:30 83 36 H 144/71 97 09/28/17 08:00 99.9 F H 83 20 144/71 97 09/28/17 07:51 80 09/28/17 07:30 80 18 138/71 95 09/28/17 07:00 83 28 H 163/72 96 09/28/17 06:30 86 19 147/80 96 09/28/17 06:00 90 16 147/80 95 09/28/17 05:30 81 20 147/70 91 L 09/28/17 05:00 82 19 147/70 94 L 09/28/17 04:30 81 22 116/80 97 09/28/17 04:00 99.7 F H 80 19 116/80 93 L 09/28/17 03:30 80 15 127/69 96 09/28/17 03:00 80 14 127/69 99 09/28/17 02:00 81 14 121/71 98 09/28/17 01:30 80 13 133/67 98 09/28/17 01:00 80 20 133/67 92 L 09/28/17 00:00 99.2 F 83 15 151/74 94 L 09/27/17 23:55 84 20 151/74 92 L 09/27/17 23:00 81 20 137/68 95 09/27/17 22:30 84 23 152/75 95 09/27/17 22:00 85 20 152/75 96 09/27/17 21:00 90 24 159/82 96 09/27/17 20:41 84 09/27/17 20:35 85 09/27/17 20:00 100.4 F H 85 26 H 159/70 97 09/27/17 19:30 86 23 96 18 19:00 86 22 154/72 98 09/27/17 18:30 98.7 F 87 26 H 101/76 96 0218 18:00 86 21 101/76 95 18 17:30 85 26 H 157/78 96 09/27/17 17:00 100.3 F H 91 20 157/78 96 09/27/17 16:30 101.6 F H 86 22 161/76 98 18 16:00 94 25 H 161/76 97 18 15:30 89 18 155/84 96 09/27/17 15:00 92 24 171/81 94 L 09/27/17 14:30 92 30 H 153/81 97 09/27/17 14:00 94 28 H 153/81 94 L 09/27/17 13:30 89 27 H 151/71 97 09/27/17 13:00 89 22 151/71 97 09/27/17 12:30 91 23 140/68 97 09/27/17 12:14 88 09/27/17 12:02 87 Intake and Output 09/27/17 09/28/17 09/28/17 22:59 06:59 14:59 Intake Total 534 184 169 Output Total 430 510 935 Balance 207 -442 -616 Intake: IV 184 184 69 NS 160 160 60 Pressure Bag 24 24 9 Intake, IV Titration 50 100 Amount Meropenem 500 mg In 50 100 Sodium Chloride 0.9% 50 ml @ 100 mls/hr IVPB Q8HR [facility] Rx#:[id number] Oral 300 Output: Urine 430 510 935 Other: Voiding Method Indwelling Catheter Indwelling Catheter Indwelling Catheter Weight 76.9 kg ABP, PAP, CO, CI - Last 8 Hours Cardiac Output 6.2 Skin: Good color, texture, turgor. General: Thin to Medium build and comfortable appearance. Head: Normocephalic, atraumatic. Eyes: Symmetric. Pupils equal round. Ears: Symmetric. Hearing within normal limits. Mouth: Clear. Neck: Supple. Carotid without bruit. Cardiac: Regular rate and rhythm. Sternotomy scar clean and dressed. Wearing harness. Lungs: Clear anteriorly and posteriorly. Abdomen: Soft active nontender. Extremities: Normal tone. Neurological: Mental status: Alert, cooperative, pleasant. Cranial nerves: Symmetric facial tone and trapezius. Motor: Normal strength and isolation all 4 limbs. Sensation: Intact throughout. DTRs: Symmetric and equal throughout. 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 Results CBC & Chem 7: 09/28/17 06:50 09/28/17 06:45 Labs: Abnormal Lab Results - Last 24 Hours (Table) 09/27/17 09/27/17 09/28/17 Range/Units 17:42 20:36 06:45 WBC (3.8-10.6) k/uL RBC (4.30-5.90) m/uL Hgb (13.0-17.5) gm/dL Hct (39.0-53.0) % RDW (11.5-15.5) % Neutrophils # (1.3-7.7) k/uL BUN 22 H (9-20) mg/dL Glucose 108 H (74-99) mg/dL POC Glucose (mg/dL) 120 H 165 H (75-99) mg/dL Total Protein 6.0 L (6.3-8.2) g/dL Albumin 3.3 L (3.5-5.0) g/dL 09/28/17 09/28/17 Range/Units 06:50 07:24 WBC 14.4 H (3.8-10.6) k/uL RBC 3.05 L (4.30-5.90) m/uL Hgb 8.8 L (13.0-17.5) gm/dL Hct 28.2 L (39.0-53.0) % RDW 16.9 H (11.5-15.5) % Neutrophils # 10.9 H (1.3-7.7) k/uL BUN (9-20) mg/dL Glucose (74-99) mg/dL POC Glucose (mg/dL) 125 H (75-99) mg/dL Total Protein (6.3-8.2) g/dL Albumin (3.5-5.0) g/dL Microbiology - Last 24 Hours (Table) 09/22/17 06:59 Blood Culture - Final Blood No Growth after 144 hours Chest x-ray: report reviewed (Chest x-rays followed for congestion, basilar creases and left pleural effusion.) Assessment and Plan (1) Mild aortic valve regurgitation Current Visit: Yes Status: Acute Code(s): I35.1 - NONRHEUMATIC AORTIC (VALVE ) INSUFFICIENCY SNOMED Code(s): 12533177 Plan: Impression: 1. Cardiac debility. 2. Status post MVR. 3. Coronary disease with history of ND. 4. Atrial ablation. 5. Hypertension. 6. Dyslipidemia. 7. COPD. Comments and plan: At this time a prescribed PT and OT. We'll follow with yourself for possible safety concerns. Note that I did see the patient with cousin, cousin is concerned about patient returning to home alone. Cousin and the family are worried about right carotid disease, left femoral artery disease and left foot or toe possible need of amputation.
--- NOTE | 2017-09-28 14:58 | P.PN ---
Subjective Progress Note Date: 09/28/17 Principal diagnosis: Severe mitral valve regurgitation, recurrent episodes of flash pulmonary edema and respiratory failure requiring intubation and mechanical ventilation. On 09/25/2017 patient seen post mitral valve replacement, modified Albert maze cryoablation, and exclusion of the left atrial appendage. Patient is intubated and sedated on mechanical ventilation with the vent settings assist control mode with a rate of 12, tidal volume 500, FiO2 100%, and PEEP of 5. Intraoperatively he received 1 unit of packed red blood cells for hemoglobin of 7.0. Patient has 2 mediastinal chest tubes that are Y-connected together, there is about 35 mL of sanguinous output in the atrium collection chamber. Patient's rhythm is sinus with a rate of any BPM. Patient has epicardial wires , connected to a temporary external pacemaker, with settings of AAI with a rate of 80 BPM. PA pressures of 48/25, with a mean of 29. The cardiac output and index are 4.5 and 2.4 respectively. Maintenance fluids are LR at 50 ML per hour , clevidipine is currently running at 2 mg per hour, Primacor is infusing at 0.2 mics per kilo per minute, and nitroglycerin at 5 mics per minute. Microbiology showed a sputum culture from 09/22/2017 positive for Enterobacter o 'clock K and Klebsiella oxytoca, and urine cultures positive for E. coli. Patient remains on a combination of cefazolin and vancomycin per ID service recommendation. This morning's lab work showed a PVC of 5.5, hemoglobin of 9.8 , renal profile improving, BUN of 21, creatinine of 1.5. Postop blood work is pending. Postop blood gases pending as well. Patient was reevaluated today on 09/26/2017, he is postoperative day #1. I saw him yesterday shortly after his surgery, and he was on mechanical ventilation. At night the patient was weaned and extubated uneventfully, and he is now on nasal cannula, in no distress. Chest x-ray showed minimal interstitial edema, however the patient responded well to Lasix earlier today by her to thoracic surgery. Patient is relatively asymptomatic, sitting in a bedside chair. Chest x-ray and labs were reviewed. His renal profile is improving creatinine is down to 1.40, it was 1.70 yesterday. Rest of the labs were unremarkable. Reevaluated today on 09/27/2017, patient is postoperative day #2. He is status post mitral valve replacement as noted above. Patient is off oxygen, he is on room air, saturating in the 90s, awake, in no form of respiratory distress whatsoever. Chest x-ray continues to show steady improvement of his pulmonary edema. CBC is relatively normal hemoglobin is 8.6. Electrolytes are normal BUN is 22 creatinine is even better today 1.20. Reevaluated today on 09/28/2017, he is postoperative day #3, status post mitral valve replacement, patient is off the oxygen, continues to do well on room air, saturating in the 90s again, he is not in any form of distress, chest x-ray is showing slight pulmonary edema, however he received Lasix earlier today and he responded quite well. CBC showed WBC count of 14.4 hemoglobin is 8.8 basic metabolic profile is normal creatinine is down to 1.09. Objective - Vital Signs Vital signs: Vital Signs Temp 97.0 F L 09/28/17 11:37 Pulse 80 09/28/17 11:55 Resp 18 09/28/17 11:37 BP 138/73 09/28/17 11:37 Pulse Ox 98 09/28/17 11:37 Intake & Output 09/27/17 09/28/17 09/28/17 18:59 06:59 18:59 Intake Total 345.5 576 409 Output Total 1082 750 935 Balance -736.5 -174 -526 Weight 75.6 kg 76.9 kg Intake: IV 245.5 276 69 CO/CI 20 Milrinone-D5w Pmx 20 mg 4.5 In Dextrose/Water 1 100ml .bag @ Per Protocol IV . 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 HEAD: Normocephalic. EYES: Normal reaction of pupils, equal size. NOSE: Clear with pink turbinates. THROAT: No erythema or exudates. NECK: No masses, no JVD. CHEST: No chest wall deformity. LUNGS: Minimal fine crackles at the bases were noted today. CVS: S1 and S2 normal,, no gallops, 2/6 systolic murmur throughout the precordium. ABDOMEN: No hepatosplenomegaly, normal bowel sounds, no guarding or rigidity. SPINE: No scoliosis or deformity SKIN: No rashes CENTRAL NERVOUS SYSTEM: Alert oriented 3, no gross focal neurologic deficit noted. EXTREMITIES: There is no peripheral edema. No clubbing, no cyanosis. Peripheral pulses are intact. - Labs CBC & Chem 7: 09/28/17 06:50 09/28/17 06:45 Labs: Abnormal Lab Results - Last 24 Hours (Table) 09/27/17 09/27/17 09/28/17 Range/Units 17:42 20:36 06:45 WBC (3.8-10.6) k/uL RBC (4.30-5.90) m/uL Hgb (13.0-17.5) gm/dL Hct (39.0-53.0) % RDW (11.5-15.5) % Neutrophils # (1.3-7.7) k/uL BUN 22 H (9-20) mg/dL Glucose 108 H (74-99) mg/dL POC Glucose (mg/dL) 120 H 165 H (75-99) mg/dL Total Protein 6.0 L (6.3-8.2) g/dL Albumin 3.3 L (3.5-5.0) g/dL 09/28/17 09/28/17 Range/Units 06:50 07:24 WBC 14.4 H (3.8-10.6) k/uL RBC 3.05 L (4.30-5.90) m/uL Hgb 8.8 L (13.0-17.5) gm/dL Hct 28.2 L (39.0-53.0) % RDW 16.9 H (11.5-15.5) % Neutrophils # 10.9 H (1.3-7.7) k/uL BUN (9-20) mg/dL Glucose (74-99) mg/dL POC Glucose (mg/dL) 125 H (75-99) mg/dL Total Protein (6.3-8.2) g/dL Albumin (3.5-5.0) g/dL Microbiology - Last 24 Hours (Table) 09/22/17 06:59 Blood Culture - Final Blood No Growth after 144 hours Assessment and Plan Assessment: Severe mitral regurgitation, with recurrent episodes of systolic congestive heart failure, status post mitral valve replacement, biatrial modified Albert maze procedure and exclusion of the left atrial appendix, postop day #3 Recurrent episodes of hypoxic respiratory failure requiring intubation and mechanical ventilation, mostly secondary to mitral valve disease, and the patient is developing flash pulmonary edema, resolved since the patient had his mitral valve replacement. Atrial fibrillation/RVR, currently in sinus rhythm. Presently the patient seems in a junctional rhythm. History of CAD with previous stent placement History of COPD History of essential hypertension History of depression Peripheral vascular occlusive disease Hypothyroidism Hypertensive nephrosclerosis with acute on chronic kidney disease, improving, creatinine is 1.2 today. Acute cellulitis and dry gangrene of the left big toe, status post debridement Bilateral carotid disease, worse on the right with a greater than 70% obstruction, angiogram showed the obstruction was nonsignificant. Positive sputum cultures and urine cultures as noted above in my previous documentation, and his antibiotics were switched to Merrem, it will cover his Enterobacter, Klebsiella, and E. coli. Recommendation: Continue present supportive care measures, continue antibiotics , bronchodilators, incentive spirometry, ambulation, and hopefully the patient could be eventually discharged to a rehab facility in the next few days. Time with Patient: Less than 30
--- NOTE | 2017-09-28 15:32 | PN ---
PROGRESS NOTE DATE OF SERVICE: 09/28/2017. INTERVAL HISTORY: This 62-year-old gentleman admitted with severe mitral regurgitation also had mitral valve replacement. The patient has been closely monitored. No chest pain. No palpitations. No fever. Occasional cough is reported. EXAM: Alert and oriented x3. Pulse 82, blood pressure 140/70, respiration 20, temperature 97 degrees, pulse ox 98% on room air. HEENT: Conjunctivae normal. NECK: No jugular venous distention. CARDIOVASCULAR: S1, S2. RESPIRATORY: Breath sounds diminished in the bases. A few scattered rhonchi. ABDOMEN: Soft, nontender. NERVOUS SYSTEM: No focal deficits. LABS: WBC 14, hemoglobin is 8.8. ASSESSMENT: 1. Severe mitral regurgitation status post mitral valve replacement. 2. Acute systolic heart failure secondary to severe mitral regurgitation. 3. Acute hypoxic respiratory failure status post mechanical ventilation, most likely secondary to multiple recent flash pulmonary edema. 4. Atrial fibrillation, currently in sinus rhythm proximal. 5. History of coronary artery disease, stent placement. 6. Chronic obstructive pulmonary disease. 7. History of peripheral vascular disease. 8. Hypothyroidism. 9. Acute cellulitis and dry gangrene of the left big toe, status post debridement. 10.Aortic artery stenosis 70%. RECOMMENDATIONS AND DISCUSSION: I recommend to continue current management and symptomatic treatment. Closely follow with Cardizem. Incentive spirometry, DVT prophylaxis. Further recommendations to follow. MMODL / IJN: [id number] /
[2017-09-28 16:56] LABS: Glucose,Whole Blood 101 mg/dL (75-99)
[2017-09-28] MEDS: FLUCONAZOLE 100 MG TAB PO SCH (17:04)
--- NOTE | 2017-09-28 17:38 | PN ---
PROGRESS NOTE DATE OF SERVICE: 09/28/2017 REASON FOR FOLLOWUP: Gram-negative pneumonia. INTERVAL HISTORY: The patient is afebrile, has been breathing comfortably. Denies significant chest pain, very minimal cough, which is dry in nature. No abdominal pain. No nausea, vomiting, or any diarrhea. Denies any pain left foot area. PHYSICAL EXAMINATION: Blood pressure 132/73 with a pulse of 81, temperature is 97. He is 98% on room air. General description is a middle aged male up in the bed in no distress. RESPIRATORY SYSTEM: Unlabored breathing. Decreased breath sounds in the bases. No wheeze. HEART: S1, S2. Regular rate and rhythm. ABDOMEN: Soft, no tenderness. Left foot dressed, no obvious drainage on the dressing. LABS: White count slightly elevated to 14.4, BUN of 22, creatinine 1.09. DIAGNOSTIC IMPRESSION AND PLAN: Patient with gram-negative pneumonia. Sputum has been QAMARKER] and now with E. coli urinary tract infection currently covered with meropenem, now noticed to have slight jump in the white count. Patient off antibiotics. High risk of yeast infection. Diflucan will be added medically and his white count will monitor closely. If any new fever, reculture and adjust antibiotics further. Continue supportive care. MMODL / IJN: [id number] /
[2017-09-28 17:47] LABS: Iron Saturation 7.69 (15.00-50.00)
[2017-09-28] MEDS: SENNOSIDES-DOCUSATE SODIUM 1 EACH TAB PO SCH (19:45)
[2017-09-28 20:49] LABS: Glucose,Whole Blood 108 mg/dL (75-99)
[2017-09-29 02:11] LABS: Glucose,Whole Blood 131 mg/dL (75-99)
[2017-09-29 05:57] LABS: Glucose,Whole Blood 94 mg/dL (75-99)
[2017-09-29] MEDS: INSULIN ASPART 100 UNIT/ML 1 ML 10 ML VIAL SQ SCH ×4 (05:58→23:05)
[2017-09-29] MEDS: PANTOPRAZOLE 40 MG TABLET PO SCH (06:33)
[2017-09-29] MEDS: LEVOTHYROXINE 25 MCG TAB PO SCH (06:33)
[2017-09-29] MEDS: HYDROcodone/APAP 5-325MG 1 EACH TAB PO PRN ×2 (06:36→20:44)
[2017-09-29 06:38] LABS: Anisocytosis Slight; HCT 27.8 % (39.0-53.0); HGB 8.4 gm/dL (13.0-17.5); Hypochromasia Slight; MCH 28.2 pg (25.0-35.0); MCHC 30.1 g/dL (31.0-37.0); MCV 93.8 fL (80.0-100.0); Mean Platelet Volume 8.1; Platelet Count 382 k/uL (150-450); RBC 2.97 m/uL (4.30-5.90); RDW 17.1 % (11.5-15.5); WBC 12.4 k/uL (3.8-10.6)
[2017-09-29 06:46] LABS: ALT 28 U/L (21-72); AST 32 U/L (17-59); Alkaline Phosphatase 57 U/L (38-126); Anion Gap 10 mmol/L; Blood Urea Nitrogen 21 mg/dL (9-20); Calcium 9.2 mg/dL (8.4-10.2); Carbon Dioxide 23 mmol/L (22-30); Chloride 103 mmol/L (98-107); Glucose 91 mg/dL (74-99); Potassium 4.3 mmol/L (3.5-5.1); Sodium 136 mmol/L (137-145); Total Bilirubin 0.8 mg/dL (0.2-1.3); Total Protein 5.8 g/dL (6.3-8.2)
--- NOTE | 2017-09-29 08:14 | P.PN ---
Subjective Progress Note Date: 09/29/17 Principal diagnosis: Rheumatic traumatic mitral valve disorder, severe mitral valve regurgitation. Mild aortic valve regurgitation. Mild to moderate left ventricular dysfunction. Pneumonia. Peripheral vascular disease with right to gangrene. Chronic obstructive pulmonary disease. Peripheral vascular disease. Moderate to severe right ICA stenosis. Previous history of chronic persistent atrial fibrillation on Eliquis for anticoagulation, depression, peripheral artery disease, chronic nicotine dependence, chronic kidney disease stage III, hypertension, coronary artery disease with previous stent placement, GERD, and hypothyroidism. Status post cardiac catheterization on 09/25/2017 demonstrating a patent LAD stent and no significant coronary stenosis. Status post neck CTA demonstrating severe right internal carotid artery estimated at greater than 70%, moderate to severe narrowing of the proximal left internal carotid artery between 50-69%. Status post angiogram, no stent placement to the carotid arteries, right carotid approximately 70% stenosis, left carotid approximately 50% stenosis per angiogram. Status post cardiac arrest, reintubation for flash pulmonary edema. Preoperative sputum culture with Gram stain negative bacilli, urine culture with gram-negative bacilli, currently on Zosyn IV. POD #4 chordal preserving mitral valve replacement using a 27 mm pericardial magna ease. Bi-atrial full Albert maze procedure using radiofrequency and cryoablation. Exclusion of the left atrial appendage using a 40 mm AtriClip. Intraoperative transesophageal echocardiogram and epi-aortic scanning. Patient's currently sitting up in the bed in no acute distress. Denies pain, shortness of breath. No new complaints. He was transferred out of ICU to [address] [place] [address] care yesterday. Remains very weak. Objective - Vital Signs Vital signs: Vital Signs Temp 99.2 F 09/29/17 08:00 Pulse 84 09/29/17 08:00 Resp 16 09/29/17 08:00 BP 137/76 09/29/17 08:00 Pulse Ox 95 09/29/17 08:00 Intake & Output 09/28/17 09/29/17 09/29/17 18:59 06:59 18:59 Intake Total 819 125 Output Total 935 Balance -116 125 Intake: IV 69 NS 60 Pressure Bag 9 Intake, IV Titration 150 Amount Meropenem 500 mg In 150 Sodium Chloride 0.9% 50 ml @ 100 mls/hr IVPB Q8HR [facility] Rx#:[id number] Oral 600 125 Output: Urine 935 Other: Voiding Method Toilet Toilet Urinal # Voids 1 # Bowel Movements 1 ABP, PAP, CO, CI - Last Documented Arterial Blood Pressure 123/103 Pulmonary Artery Pressure 49/27 Cardiac Output 6.2 Cardiac Index 3.3 - Constitutional General appearance: Present: cooperative, no acute distress - Respiratory Details: Lungs sounds diminished bilaterally. Respirations even, nonlabored. Currently on room air with oxygen saturation 97%. Able to achieve 1000 mL on his incentive spirometry. Effective cough. - Cardiovascular Details: S1, S2 present. Regular rate and rhythm, accelerated junctional rhythm on telemetry. A/V epicardial pacemaker wires present, grounded. Sternum stable. Palpable peripheral pulses bilaterally. No edema present. No calf pain or tenderness noted. Heart hugger in place with patient demonstrating appropriate use. Antiembolism stockings, SCDs present. - Gastrointestinal Gastrointestinal Comment(s): Abdomen soft, nontender, nondistended. Active bowel sounds 4 quadrants. Tolerating diet. Positive bowel movement. - Genitourinary Genitourinary Comment(s): Continues to void clear, yellow urine. - Integumentary Integumentary Comment(s): Skin is warm and dry. Anterior chest incision well approximated and covered with dry intact dressing. Left great toe dressing dry and intact. DuoDERM present to coccyx area, left scapular area covered with dry intact dressing. - Neurologic Neurologic: Present: CNII-XII intact - Musculoskeletal Musculoskeletal: Present: generalized weakness, strength equal bilaterally - Psychiatric Psychiatric: Present: A&O x's 3, appropriate affect, intact judgment & insight - Allied health notes Allied health notes reviewed: nursing - Labs CBC & Chem 7: 09/29/17 05:56 09/29/17 05:56 Labs: Abnormal Lab Results - Last 24 Hours (Table) 09/28/17 09/28/17 09/28/17 Range/Units 06:45 16:53 20:48 WBC (3.8-10.6) k/uL RBC (4.30-5.90) m/uL Hgb (13.0-17.5) gm/dL Hct (39.0-53.0) % MCHC (31.0-37.0) g/dL RDW (11.5-15.5) % Sodium (137-145) mmol/L BUN (9-20) mg/dL POC Glucose (mg/dL) 101 H 108 H (75-99) mg/dL Iron 17 L (65-175) ug/dL TIBC 221 L (228-460) ug/dL Iron Saturation 7.69 L (15.00-50.00) Ferritin 453.3 H (22.0-322.0) ng/mL Total Protein (6.3-8.2) g/dL Albumin (3.5-5.0) g/dL 09/29/17 09/29/17 09/29/17 Range/Units 02:09 05:56 05:56 WBC 12.4 H (3.8-10.6) k/uL RBC 2.97 L (4.30-5.90) m/uL Hgb 8.4 L (13.0-17.5) gm/dL Hct 27.8 L (39.0-53.0) % MCHC 30.1 L (31.0-37.0) g/dL RDW 17.1 H (11.5-15.5) % Sodium 136 L (137-145) mmol/L BUN 21 H (9-20) mg/dL POC Glucose (mg/dL) 131 H (75-99) mg/dL Iron (65-175) ug/dL TIBC (228-460) ug/dL Iron Saturation (15.00-50.00) Ferritin (22.0-322.0) ng/mL Total Protein 5.8 L (6.3-8.2) g/dL Albumin 3.0 L (3.5-5.0) g/dL Microbiology - Last 24 Hours (Table) 09/22/17 06:59 Blood Culture - Final Blood No Growth after 144 hours - Imaging and Cardiology Chest x-ray: pending Assessment and Plan (1) Acute and chronic respiratory failure with hypoxia Current Visit: Yes Status: Acute Code(s): J96.21 - ACUTE AND CHRONIC RESPIRATORY FAILURE WITH HYPOXIA SNOMED Code(s): 46690720 (2) COPD (chronic obstructive pulmonary disease) Current Visit: Yes Status: Chronic Code(s): J44.9 - CHRONIC OBSTRUCTIVE PULMONARY DISEASE, UNSPECIFIED SNOMED Code(s): 85059643 (3) Chronic kidney disease, stage III (moderate) Current Visit: Yes Status: Chronic Code(s): N18.3 - CHRONIC KIDNEY DISEASE, STAGE 3 (MODERATE) SNOMED Code(s): 057842212 (4) Gangrenous toe Current Visit: Yes Status: Chronic Code(s): I96 - GANGRENE, NOT ELSEWHERE CLASSIFIED SNOMED Code(s): 141067464 (5) History of bradycardia Current Visit: No Status: Resolved Code(s): Z86.79 - PERSONAL HISTORY OF OTHER DISEASES OF THE CIRCULATORY SYSTEM SNOMED Code(s): 166139517469321 (6) History of coronary artery disease Current Visit: No Status: Resolved Code(s): Z86.79 - PERSONAL HISTORY OF OTHER DISEASES OF THE CIRCULATORY SYSTEM SNOMED Code(s): 153810830 (7) History of depression Current Visit: Yes Status: Chronic Code(s): Z86.59 - PERSONAL HISTORY OF OTHER MENTAL AND BEHAVIORAL DISORDERS SNOMED Code(s): 100797476 (8) Hypertension Current Visit: Yes Status: Chronic Code(s): I10 - ESSENTIAL (PRIMARY) HYPERTENSION SNOMED Code(s): 87809312 (9) Hypothyroidism Current Visit: Yes Status: Chronic Code(s): E03.9 - HYPOTHYROIDISM, UNSPECIFIED SNOMED Code(s): 55782482 (10) Peripheral vascular disease Current Visit: Yes Status: Chronic Code(s): I73.9 - PERIPHERAL VASCULAR DISEASE, UNSPECIFIED SNOMED Code(s): 415512602 (11) New onset a-fib Current Visit: Yes Status: Acute Code(s): I48.91 - UNSPECIFIED ATRIAL FIBRILLATION SNOMED Code(s): 91932527 (12) Carotid artery stenosis Current Visit: Yes Status: Chronic Code(s): I65.29 - OCCLUSION AND STENOSIS OF UNSPECIFIED CAROTID ARTERY SNOMED Code(s): 32514622 (13) Mitral valve regurgitation Current Visit: Yes Status: Chronic Code(s): I34.0 - NONRHEUMATIC MITRAL ( VALVE) INSUFFICIENCY SNOMED Code(s): 47377552 Plan: 1. Continue aspirin, Plavix, heparin subcu, Apresoline. Beta skylar on hold for now. 2. Encourage incentive spirometry use 10 times every hour. Encourage continued smoking cessation. 3. Continue IV Lasix per nephrology recommendations. 4. Bronchodilators, antibiotics per pulmonology. 5. Avoid nephrotoxic agents. 6. GI/DVT prophylaxis. 7. Blood sugar management per primary care service. 8. Increase activity, ambulate as tolerated. PT/OT/cardiac rehab following. 9. Will monitor daily labs and x-rays. 10. More recommendations to follow. Dr. Thapa consulted for rehab placement. Patient will need rehab at discharge. Time with Patient: Greater than 30
--- NOTE | 2017-09-29 08:20 | XR ---
EXAMINATION TYPE: XR chest 2V DATE OF EXAM: 09/29/2017 COMPARISON: 09/28/2017 HISTORY: Post cardiac surgery TECHNIQUE: Frontal and lateral views of the chest are obtained. FINDINGS: Bibasilar opacities are probably improved in the interim with persistent trace left pleura l effusion and improved pulmonary vascular congestion. Right internal jugular central venous catheter sheath has been removed. Cardiac closure device, valvular replacement, and mediastinal pacer wires a s well as intact midline sternotomy wires are unchanged. There is persistent cardiomegaly. No pneumot horax. Osseous structures are intact. IMPRESSION: Persistent bibasilar opacities that are mildly improved in the interim, unchanged trace left pleural effusion, and improved pulmonary vascular congestion.
--- NOTE | 2017-09-29 08:20 | P.PN ---
Subjective Patient is seen in follow-up for acute kidney injury. Renal function is improved with creatinine at 1.0 today. He is status post mitral valve replacement on September 25. He is awake and alert and currently sitting up in bed. Currently maintained on antibiotics for E. coli UTI as well as Enterobacter and Klebsiella noted on sputum culture. He is nonoliguric. Blood pressures are better controlled. Oral intake is good. No active complaints at this time. Vital signs are stable. General: The patient appeared well nourished and normally developed. Currently intubated. HEENT: Head exam is unremarkable. Neck is without jugular venous distension. LUNGS: Lungs are clear to auscultation and percussion. Breath sounds decreased. HEART: Rate and Rhythm are regular. First and second heart sounds normal. No murmurs, rubs or gallops. ABDOMEN: Abdominal exam reveals normal bowel sounds. Non-tender and non- distended. No evidence of peritonitis. EXTREMITITES: No clubbing, cyanosis, or edema. Objective - Vital Signs Vital signs: Vital Signs Temp 99.2 F 09/29/17 08:00 Pulse 84 09/29/17 08:00 Resp 16 09/29/17 08:00 BP 137/76 09/29/17 08:00 Pulse Ox 95 09/29/17 08:00 Intake & Output 09/28/17 09/29/17 09/29/17 18:59 06:59 18:59 Intake Total 819 125 Output Total 935 Balance -116 125 Intake: IV 69 NS 60 Pressure Bag 9 Intake, IV Titration 150 Amount Meropenem 500 mg In 150 Sodium Chloride 0.9% 50 ml @ 100 mls/hr IVPB Q8HR [facility] Rx#:[id number] Oral 600 125 Output: Urine 935 Other: Voiding Method Toilet Toilet Urinal # Voids 1 # Bowel Movements 1 ABP, PAP, CO, CI - Last Documented Arterial Blood Pressure 123/103 Pulmonary Artery Pressure 49/27 Cardiac Output 6.2 Cardiac Index 3.3 - Labs CBC & Chem 7: 09/29/17 05:56 09/29/17 05:56 Labs: Abnormal Lab Results - Last 24 Hours (Table) 09/28/17 09/28/17 09/28/17 Range/Units 06:45 16:53 20:48 WBC (3.8-10.6) k/uL RBC (4.30-5.90) m/uL Hgb (13.0-17.5) gm/dL Hct (39.0-53.0) % MCHC (31.0-37.0) g/dL RDW (11.5-15.5) % Sodium (137-145) mmol/L BUN (9-20) mg/dL POC Glucose (mg/dL) 101 H 108 H (75-99) mg/dL Iron 17 L (65-175) ug/dL TIBC 221 L (228-460) ug/dL Iron Saturation 7.69 L (15.00-50.00) Ferritin 453.3 H (22.0-322.0) ng/mL Total Protein (6.3-8.2) g/dL Albumin (3.5-5.0) g/dL 09/29/17 09/29/17 09/29/17 Range/Units 02:09 05:56 05:56 WBC 12.4 H (3.8-10.6) k/uL RBC 2.97 L (4.30-5.90) m/uL Hgb 8.4 L (13.0-17.5) gm/dL Hct 27.8 L (39.0-53.0) % MCHC 30.1 L (31.0-37.0) g/dL RDW 17.1 H (11.5-15.5) % Sodium 136 L (137-145) mmol/L BUN 21 H (9-20) mg/dL POC Glucose (mg/dL) 131 H (75-99) mg/dL Iron (65-175) ug/dL TIBC (228-460) ug/dL Iron Saturation (15.00-50.00) Ferritin (22.0-322.0) ng/mL Total Protein 5.8 L (6.3-8.2) g/dL Albumin 3.0 L (3.5-5.0) g/dL Microbiology - Last 24 Hours (Table) 09/22/17 06:59 Blood Culture - Final Blood No Growth after 144 hours Assessment and Plan Plan: Assessment: #1. Nonoliguric acute kidney injury secondary to ATN secondary to contrast- induced nephropathy and hemodynamic instability. Creatinine improved to 1.0 today. #2. Mild hyperkalemia secondary to acute kidney injury and lactated Ringer's. Improved. #3. Chronic kidney disease stage III with baseline creatinine in the range of 1.2-1.4 secondary to nephrosclerosis. #4. Mitral valve regurgitation status post mitral valve replacement on 2017. #5. Pneumonia with sputum culture positive for Enterobacter and Klebsiella. #6. UTI with urine culture positive for E. coli. #7. Systolic CHF with ejection fraction of 40%. #8. Atrial fibrillation. Currently rate controlled. #9. Anemia status post blood transfusion on September 25. Hemoglobin 8.4 this morning. Iron deficiency noted. #10. Hypertension with chronic kidney disease. Better controlled. #11. Metabolic acidosis secondary to acute kidney injury. Improved. Plan: Continue Lasix 40 mg once daily. Avoid nephrotoxic agents and hypotensive episodes. Continue to monitor renal function and urine output. Antibiotics per infectious disease recommendations. Maintain current antihypertensives. To hold antihypertensives for systolic blood pressure less than 120. Repeat electrolytes in the morning. Ferrlicit 125 mg IV daily for 3 days. First dose today.
[2017-09-29] MEDS: IPRATROPIUM-ALBUTEROL 3 ML NEB INHALATION SCH ×4 (08:43→19:00)
[2017-09-29] MEDS: HEPARIN SODIUM,PORCINE 5,000 UNIT/ML 1 ML VIAL SQ SCH ×3 (09:10→23:09)
[2017-09-29] MEDS: MEROPENEM 500 MG in SODIUM CHLORIDE 0.9% 50 ML IVPB SCH ×3 (09:10→23:09)
[2017-09-29] MEDS: ASPIRIN 325 MG TAB PO SCH (09:11)
[2017-09-29] MEDS: CLOPIDOGREL 75 MG TAB PO SCH (09:11)
[2017-09-29] MEDS: FLUoxetine HCL 20 MG CAP PO SCH (09:12)
[2017-09-29] MEDS: FUROSEMIDE 10 MG/ML 4 ML VIAL IV SCH (09:12)
[2017-09-29] MEDS: NICOTINE 21MG/24HR PATCH TRANSDERM SCH (09:12)
[2017-09-29] MEDS: hydrALAZINE HCL 25 MG TAB PO SCH ×3 (09:12→20:47)
[2017-09-29] MEDS: SODIUM FERRIC GLUCONAT-SUCROSE 125 MG in SODIUM CHLORIDE 0.9% 100 ML IVPB SCH (10:16)
[2017-09-29] MEDS: SODIUM CHLORIDE 0.9% 1,000 ML IV SCH (10:22)
[2017-09-29] MEDS ORDERED: MAGNESIUM SULFATE-D5W PMX 1 GM in DEXTROSE/WATER 1 100ML.BAG IVPB SCH (10:30)
[2017-09-29] MEDS: MUPIROCIN 2% OINT 22 GM TUBE TOPICAL SCH ×2 (10:56→12:07)
--- NOTE | 2017-09-29 11:20 | P.PN ---
Subjective Progress Note Date: 09/29/17 Principal diagnosis: Severe mitral valve regurgitation, status post mitral valve replacement. On 09/25/2017 patient seen post mitral valve replacement, modified Albert maze cryoablation, and exclusion of the left atrial appendage. Patient is intubated and sedated on mechanical ventilation with the vent settings assist control mode with a rate of 12, tidal volume 500, FiO2 100%, and PEEP of 5. Intraoperatively he received 1 unit of packed red blood cells for hemoglobin of 7.0. Patient has 2 mediastinal chest tubes that are Y-connected together, there is about 35 mL of sanguinous output in the atrium collection chamber. Patient's rhythm is sinus with a rate of any BPM. Patient has epicardial wires , connected to a temporary external pacemaker, with settings of AAI with a rate of 80 BPM. PA pressures of 48/25, with a mean of 29. The cardiac output and index are 4.5 and 2.4 respectively. Maintenance fluids are LR at 50 ML per hour , clevidipine is currently running at 2 mg per hour, Primacor is infusing at 0.2 mics per kilo per minute, and nitroglycerin at 5 mics per minute. Microbiology showed a sputum culture from 09/22/2017 positive for Enterobacter o 'clock K and Klebsiella oxytoca, and urine cultures positive for E. coli. Patient remains on a combination of cefazolin and vancomycin per ID service recommendation. This morning's lab work showed a PVC of 5.5, hemoglobin of 9.8 , renal profile improving, BUN of 21, creatinine of 1.5. Postop blood work is pending. Postop blood gases pending as well. Patient was reevaluated today on 09/26/2017, he is postoperative day #1. I saw him yesterday shortly after his surgery, and he was on mechanical ventilation. At night the patient was weaned and extubated uneventfully, and he is now on nasal cannula, in no distress. Chest x-ray showed minimal interstitial edema, however the patient responded well to Lasix earlier today by her to thoracic surgery. Patient is relatively asymptomatic, sitting in a bedside chair. Chest x-ray and labs were reviewed. His renal profile is improving creatinine is down to 1.40, it was 1.70 yesterday. Rest of the labs were unremarkable. Reevaluated today on 09/27/2017, patient is postoperative day #2. He is status post mitral valve replacement as noted above. Patient is off oxygen, he is on room air, saturating in the 90s, awake, in no form of respiratory distress whatsoever. Chest x-ray continues to show steady improvement of his pulmonary edema. CBC is relatively normal hemoglobin is 8.6. Electrolytes are normal BUN is 22 creatinine is even better today 1.20. Reevaluated today on 09/28/2017, he is postoperative day #3, status post mitral valve replacement, patient is off the oxygen, continues to do well on room air, saturating in the 90s again, he is not in any form of distress, chest x-ray is showing slight pulmonary edema, however he received Lasix earlier today and he responded quite well. CBC showed WBC count of 14.4 hemoglobin is 8.8 basic metabolic profile is normal creatinine is down to 1.09. The patient seen again today 09/29/2017 in follow-up on the selective care unit. He is currently sitting up in a chair at the bedside. He is awake and alert in no acute distress. This is postoperative day #4 status post mitral valve replacement. He denies any worsening shortness of breath, cough or congestion. He's been up ambulating with assistance. Chest x-ray shows persistent bibasilar opacities with mild improvement. He is working well at the incentive spirometer. He is maintaining good O2 saturations in the mid to upper 90s on room air. He is afebrile. Hemodynamically stable. He is maintained on Diflucan and meropenem. Continued on diuretics. White count 12.4. Hemoglobin 8.4. Creatinine 1.00. Objective - Vital Signs Vital signs: Vital Signs Temp 98.6 F 09/29/17 11:00 Pulse 82 09/29/17 11:00 Resp 14 09/29/17 11:00 BP 136/63 09/29/17 11:00 Pulse Ox 96 09/29/17 11:00 Intake & Output 09/28/17 09/29/17 09/29/17 18:59 06:59 18:59 Intake Total 819 125 Output Total 935 Balance -116 125 Intake: IV 69 NS 60 Pressure Bag 9 Intake, IV Titration 150 Amount Meropenem 500 mg In 150 Sodium Chloride 0.9% 50 ml @ 100 mls/hr IVPB Q8HR [facility] Rx#:[id number] Oral 600 125 Output: Urine 935 Other: Voiding Method Toilet Toilet Urinal # Voids 1 # Bowel Movements 1 ABP, PAP, CO, CI - Last Documented Arterial Blood Pressure 123/103 Pulmonary Artery Pressure 49/27 Cardiac Output 6.2 Cardiac Index 3.3 - Exam GENERAL EXAM: Thin, alert, active, comfortable in no apparent distress. HEAD: Normocephalic. EYES: Normal reaction of pupils, equal size. NOSE: Clear with pink turbinates. THROAT: No erythema or exudates. NECK: No masses, no JVD. CHEST: No chest wall deformity. Dressing clean dry well approximated. LUNGS: Equal air entry with faint crackles in the posterior bases more so on the left. CVS: S1 and S2 normal with no audible murmur, irregular rhythm. ABDOMEN: No hepatosplenomegaly, normal bowel sounds, no guarding or rigidity. SPINE: No scoliosis or deformity SKIN: No rashes CENTRAL NERVOUS SYSTEM: No focal deficits, tone is normal in all 4 extremities. EXTREMITIES: There is no peripheral edema. No clubbing, no cyanosis. Peripheral pulses are intact. - Labs CBC & Chem 7: 09/29/17 05:56 09/29/17 05:56 Labs: Abnormal Lab Results - Last 24 Hours (Table) 09/28/17 09/28/17 09/28/17 Range/Units 06:45 16:53 20:48 WBC (3.8-10.6) k/uL RBC (4.30-5.90) m/uL Hgb (13.0-17.5) gm/dL Hct (39.0-53.0) % MCHC (31.0-37.0) g/dL RDW (11.5-15.5) % Sodium (137-145) mmol/L BUN (9-20) mg/dL POC Glucose (mg/dL) 101 H 108 H (75-99) mg/dL Iron 17 L (65-175) ug/dL TIBC 221 L (228-460) ug/dL Iron Saturation 7.69 L (15.00-50.00) Ferritin 453.3 H (22.0-322.0) ng/mL Total Protein (6.3-8.2) g/dL Albumin (3.5-5.0) g/dL 0209/29/17 09/29/17 Range/Units 02:09 05:56 05:56 WBC 12.4 H (3.8-10.6) k/uL RBC 2.97 L (4.30-5.90) m/uL Hgb 8.4 L (13.0-17.5) gm/dL Hct 27.8 L (39.0-53.0) % MCHC 30.1 L (31.0-37.0) g/dL RDW 17.1 H (11.5-15.5) % Sodium 136 L (137-145) mmol/L BUN 21 H (9-20) mg/dL POC Glucose (mg/dL) 131 H (75-99) mg/dL Iron (65-175) ug/dL TIBC (228-460) ug/dL Iron Saturation (15.00-50.00) Ferritin (22.0-322.0) ng/mL Total Protein 5.8 L (6.3-8.2) g/dL Albumin 3.0 L (3.5-5.0) g/dL Microbiology - Last 24 Hours (Table) 09/22/17 06:59 Blood Culture - Final Blood No Growth after 144 hours Assessment and Plan Assessment: Impression: Severe mitral regurgitation, with recurrent episodes of systolic congestive heart failure, status post mitral valve replacement, biatrial modified Albert maze procedure and exclusion of the left atrial appendix, postop day #4 Recurrent episodes of hypoxic respiratory failure requiring intubation and mechanical ventilation, mostly secondary to mitral valve disease, and the patient is developing flash pulmonary edema, resolved since the patient had his mitral valve replacement. Atrial fibrillation/RVR, currently in sinus rhythm. Presently the patient seems in a junctional rhythm. History of CAD with previous stent placement History of COPD History of essential hypertension History of depression Peripheral vascular occlusive disease Hypothyroidism Hypertensive nephrosclerosis with acute on chronic kidney disease, improving, creatinine is 1.2 today. Acute cellulitis and dry gangrene of the left big toe, status post debridement Bilateral carotid disease, worse on the right with a greater than 70% obstruction, angiogram showed the obstruction was nonsignificant. Positive sputum cultures and urine cultures as noted above in my previous documentation, and his antibiotics were switched to Merrem, it will cover his Enterobacter, Klebsiella, and E. coli. Plan: The patient was seen and evaluated by Dr. Barone. He continues to do well from the pulmonary standpoint. We've again encourage increased use of the incentive spirometer and cough and deep breathing exercises. Increase activity as tolerated. He may need inpatient rehabilitation. We'll continue with his current medications for now. We'll continue to follow. I, the cosigning physician, performed a history & physical examination of the patient. Lungs sounds of crackles in the bilateral posterior bases. Maintaining good O2 saturations in the 90s on room air. I discussed the assessment and plan of care with my nurse practitioner, Pari Burciaga. I attest to the above note as dictated by her.
[2017-09-29] MEDS: MAGNESIUM SULFATE-D5W PMX 1 GM in DEXTROSE/WATER 1 100ML.BAG IVPB SCH ×2 (11:28→12:37)
[2017-09-29 11:57] LABS: Glucose,Whole Blood 82 mg/dL (75-99)
[2017-09-29] MEDS: LISINOPRIL 2.5 MG TAB PO SCH (12:35)
--- NOTE | 2017-09-29 15:45 | PN ---
PROGRESS NOTE DATE OF SERVICE: 09/29/2017. REASON FOR FOLLOWUP: 1. Gram-negative pneumonia. 2. Left foot wound. INTERVAL HISTORY: The patient is afebrile. He has been breathing comfortably. Denies significant chest pain except at the incision site. No abdominal pain and no diarrhea. EXAMINATION: Blood pressure 133/63 with a pulse of 82, temperature 98.6. He is 96% on room air. General description is a middle aged male up in the chair in no distress. RESPIRATORY SYSTEM: Unlabored breathing with decreased breath sounds. No wheeze. HEART: S1, S2. Regular rate and rhythm. ABDOMEN: Soft, no tenderness. Left foot currently dressed up, no obvious drainage on the dressing. LABS: Hemoglobin 8.4, white count 12.4, BUN of 21, creatinine 1.0. DIAGNOSTIC IMPRESSION AND PLAN: Patient with Enterobacter, Klebsiella pneumonia currently covered with meropenem that will be continued for now and hopefully finish therapy with oral antibiotic on discharge as the patient showed overall clinical improvement. Slight jump in white count, we will monitor closely. Left foot wound with Aquacel silver dressing, try to keep the area off the pressure. MMODL / IJN: [id number] /
[2017-09-29] MEDS: FLUCONAZOLE 100 MG TAB PO SCH (16:02)
--- NOTE | 2017-09-29 16:45 | PN ---
PROGRESS NOTE DATE OF SERVICE: 09/29/2017. INTERVAL HISTORY: This 62-year-old gentleman who was admitted with severe mitral regurgitation and mitral valve replacement, is being closely monitored. The patient is being followed. No chest pain. No palpitations. No fever. Chest tubes have been remote. Patient has atrial ablation also, rate is controlled at this time. EXAM: Alert, oriented x3. Pulse is 80, blood pressure is 136/60, respirations 14, temperature 98.2, pulse ox 98% on room air. HEENT: Conjunctivae normal. CARDIOVASCULAR: S1 and S2 muffled. LUNGS: Breath sounds diminished at the bases. Few scattered rhonchi. ABDOMEN: Soft, nontender. NERVOUS SYSTEM: No focal deficits. LABS: WBC 12.2, hemoglobin is 8.4, sodium 136. ASSESSMENT: 1. Severe mitral regurgitation, status post mitral valve replacement. 2. Acute systolic heart failure secondary to severe mitral regurgitation. 3. Acute hypoxic respiratory failure status post mechanical ventilation, most likely secondary to multiple recent flash pulmonary edema. 4. Atrial fibrillation, currently sinus rhythm, paroxysmal. 5. History of coronary artery disease with stent placement. 6. Chronic obstructive pulmonary disease. 7. History of peripheral vascular disease. 8. Hypothyroidism. 9. Acute cellulitis and dry gangrene of the left big toe, status post debridement. 10.Carotid artery stenosis 70%. RECOMMENDATIONS: In this 62-year-old gentleman who presented with multiple complex medical issues, we will monitor the patient closely, continue the current management and symptomatic treatment. Cardiology is following. Anticoagulation. I would recommend Coumadin, initiate Coumadin and monitor PT/INR closely. Otherwise, guarded prognosis. Further recommendations to follow. MMODL / IJN: [id number] /
--- NOTE | 2017-09-29 16:50 | PN ---
PROGRESS NOTE Mr. Maradiaga is in ectopic atrial rhythm. He is status post mitral valve replacement, feeling better. He denies chest pain. Shortness of breath is also improved. S1 and S2 are heard normally. Short systolic murmur noted. Lungs reveal improved air entry. Abdomen and lower extremity exam is unchanged. Plan is to continue current medications. He will need to be anticoagulated, given the fact he has atrial fibrillation and mitral valve disease. He should probably be on Coumadin. Discussed this with the patient. I will let Dr. Huddleston make that decision. Advise to continue current medical therapy, incentive spirometry and pulmonary toilet. MMODL / IJN: [id number] /
[2017-09-29 17:02] LABS: Glucose,Whole Blood 97 mg/dL (75-99)
[2017-09-29 17:36] LABS: INR 1.1 (<1.2); Prothrombin Time 10.7 sec (9.0-12.0)
[2017-09-29] MEDS ORDERED: WARFARIN 10 MG TAB PO ONE (18:00)
[2017-09-29] MEDS: ATORVASTATIN 40 MG TAB PO SCH (20:46)
[2017-09-29] MEDS: METOPROLOL TARTRATE 12.5 MG TAB PO SCH (20:46)
[2017-09-29] MEDS: SENNOSIDES-DOCUSATE SODIUM 1 EACH TAB PO SCH (20:47)
[2017-09-29 21:34] LABS: Glucose,Whole Blood 116 mg/dL (75-99)
[2017-09-30 02:27] LABS: Glucose,Whole Blood 104 mg/dL (75-99)
[2017-09-30 05:58] LABS: Glucose,Whole Blood 102 mg/dL (75-99)
[2017-09-30] MEDS: INSULIN ASPART 100 UNIT/ML 1 ML 10 ML VIAL SQ SCH ×4 (06:06→21:05)
[2017-09-30 06:07] LABS: Anisocytosis Slight; HCT 27.4 % (39.0-53.0); HGB 8.2 gm/dL (13.0-17.5); Hypochromasia Marked; MCH 28.6 pg (25.0-35.0); MCHC 29.9 g/dL (31.0-37.0); MCV 95.6 fL (80.0-100.0); Macrocytosis Slight; Mean Platelet Volume 8.2; Platelet Count 469 k/uL (150-450); RBC 2.87 m/uL (4.30-5.90); RDW 17.1 % (11.5-15.5); WBC 10.5 k/uL (3.8-10.6)
[2017-09-30 06:26] LABS: INR 1.4 (<1.2); Prothrombin Time 13.1 sec (9.0-12.0)
[2017-09-30] MEDS: HYDROcodone/APAP 5-325MG 1 EACH TAB PO PRN ×3 (06:30→21:13)
[2017-09-30] MEDS: LEVOTHYROXINE 25 MCG TAB PO SCH (06:31)
[2017-09-30] MEDS: PANTOPRAZOLE 40 MG TABLET PO SCH (06:31)
[2017-09-30 06:32] LABS: ALT 30 U/L (21-72); AST 42 U/L (17-59); Albumin 3.1 g/dL (3.5-5.0); Alkaline Phosphatase 65 U/L (38-126); Anion Gap 11 mmol/L; Blood Urea Nitrogen 21 mg/dL (9-20); Calcium 9.1 mg/dL (8.4-10.2); Carbon Dioxide 22 mmol/L (22-30); Chloride 104 mmol/L (98-107); Glucose 88 mg/dL (74-99); Potassium 4.1 mmol/L (3.5-5.1); Sodium 137 mmol/L (137-145); Total Bilirubin 0.6 mg/dL (0.2-1.3); Total Protein 5.9 g/dL (6.3-8.2)
--- NOTE | 2017-09-30 06:55 | XR ---
EXAMINATION TYPE: XR chest 2V DATE OF EXAM: 09/30/2017 HISTORY: post cardiac surgery. REFERENCE: Previous study dated 09/29/2017. FINDINGS: There has been a midline sternotomy and mitral valve replacement. The heart is mildly enlarged. There is bibasilar airspace disease. I suspect a small effusion. IMPRESSION: 1. POSTOPERATIVE CHANGE. 2. SMALL LEFT EFFUSION. 3. BIBASILAR AIRSPACE DISEASE.
[2017-09-30] MEDS: IPRATROPIUM-ALBUTEROL 3 ML NEB INHALATION SCH ×4 (07:37→19:35)
[2017-09-30] MEDS: HEPARIN SODIUM,PORCINE 5,000 UNIT/ML 1 ML VIAL SQ SCH ×3 (07:55→23:18)
[2017-09-30] MEDS: MEROPENEM 500 MG in SODIUM CHLORIDE 0.9% 50 ML IVPB SCH ×3 (07:55→23:17)
[2017-09-30] MEDS: FLUoxetine HCL 20 MG CAP PO SCH (07:56)
[2017-09-30] MEDS: LISINOPRIL 2.5 MG TAB PO SCH (07:57)
[2017-09-30] MEDS: ASPIRIN 325 MG TAB PO SCH (07:57)
[2017-09-30] MEDS: NICOTINE 21MG/24HR PATCH TRANSDERM SCH (07:58)
[2017-09-30] MEDS: FUROSEMIDE 10 MG/ML 4 ML VIAL IV SCH (07:59)
[2017-09-30] MEDS: SODIUM FERRIC GLUCONAT-SUCROSE 125 MG in SODIUM CHLORIDE 0.9% 100 ML IVPB SCH (09:40)
[2017-09-30] MEDS: CLOPIDOGREL 75 MG TAB PO SCH (09:40)
[2017-09-30] MEDS: METOPROLOL TARTRATE 12.5 MG TAB PO SCH ×2 (09:49→21:05)
[2017-09-30] MEDS: hydrALAZINE HCL 25 MG TAB PO SCH ×3 (09:49→21:05)
--- NOTE | 2017-09-30 09:56 | P.PN ---
Subjective Patient is seen in follow-up for acute kidney injury. Renal function is improved with creatinine at 1.0 today. He is status post mitral valve replacement on September 25. He is awake and alert and currently sitting up in bed. Currently maintained on antibiotics for E. coli UTI as well as Enterobacter and Klebsiella noted on sputum culture. He is nonoliguric. Blood pressure is a little on the lower side today. He was started on low-dose lisinopril on September 29. Oral intake is good. No active complaints at this time. Vital signs are stable. General: The patient appeared well nourished and normally developed. Currently intubated. HEENT: Head exam is unremarkable. Neck is without jugular venous distension. LUNGS: Lungs are clear to auscultation and percussion. Breath sounds decreased. HEART: Rate and Rhythm are regular. First and second heart sounds normal. No murmurs, rubs or gallops. ABDOMEN: Abdominal exam reveals normal bowel sounds. Non-tender and non- distended. No evidence of peritonitis. EXTREMITITES: No clubbing, cyanosis, or edema. Objective - Vital Signs Vital signs: Vital Signs Temp 97.5 F L 09/30/17 07:53 Pulse 97 09/30/17 07:53 Resp 16 09/30/17 07:53 BP 100/51 09/30/17 07:53 Pulse Ox 98 09/30/17 04:00 Intake & Output 09/29/17 09/30/17 09/30/17 18:59 06:59 18:59 Intake Total 525 240 Balance 525 240 Weight 76.9 kg 73.8 kg Intake: Oral 525 240 Other: Voiding Method Toilet Toilet Urinal Urinal # Voids 1 1 # Bowel Movements 1 ABP, PAP, CO, CI - Last Documented Arterial Blood Pressure 123/103 Pulmonary Artery Pressure 49/27 Cardiac Output 6.2 Cardiac Index 3.3 - Labs CBC & Chem 7: 09/30/17 05:18 09/30/17 05:18 Labs: Abnormal Lab Results - Last 24 Hours (Table) 09/29/17 09/30/17 09/30/17 Range/Units 21:25 02:24 05:18 RBC 2.87 L (4.30-5.90) m/uL Hgb 8.2 L (13.0-17.5) gm/dL Hct 27.4 L (39.0-53.0) % MCHC 29.9 L (31.0-37.0) g/dL RDW 17.1 H (11.5-15.5) % Plt Count 469 H (150-450) k/uL PT (9.0-12.0) sec INR (<1.2) BUN (9-20) mg/dL POC Glucose (mg/dL) 116 H 104 H (75-99) mg/dL Total Protein (6.3-8.2) g/dL Albumin (3.5-5.0) g/dL 09/30/17 09/30/17 09/30/17 Range/Units 05:18 05:18 05:55 RBC (4.30-5.90) m/uL Hgb (13.0-17.5) gm/dL Hct (39.0-53.0) % MCHC (31.0-37.0) g/dL RDW (11.5-15.5) % Plt Count (150-450) k/uL PT 13.1 H (9.0-12.0) sec INR 1.4 H (<1.2) BUN 21 H (9-20) mg/dL POC Glucose (mg/dL) 102 H (75-99) mg/dL Total Protein 5.9 L (6.3-8.2) g/dL Albumin 3.1 L (3.5-5.0) g/dL Assessment and Plan Plan: Assessment: #1. Nonoliguric acute kidney injury secondary to ATN secondary to contrast- induced nephropathy and hemodynamic instability. Creatinine improved to 1.0 today. #2. Mild hyperkalemia secondary to acute kidney injury and lactated Ringer's. Improved. #3. Chronic kidney disease stage III with baseline creatinine in the range of 1.2-1.4 secondary to nephrosclerosis. #4. Mitral valve regurgitation status post mitral valve replacement on 2017. #5. Pneumonia with sputum culture positive for Enterobacter and Klebsiella. #6. UTI with urine culture positive for E. coli. #7. Systolic CHF with ejection fraction of 40%. #8. Atrial fibrillation. Currently rate controlled. #9. Anemia status post blood transfusion on September 25. Hemoglobin 8.2 this morning. Iron deficiency noted. #10. Hypertension with chronic kidney disease. Controlled. #11. Metabolic acidosis secondary to acute kidney injury. Improved. Plan: Continue Lasix 40 mg once daily. Avoid nephrotoxic agents and hypotensive episodes. Continue to monitor renal function and urine output. Antibiotics per infectious disease recommendations. Maintain current antihypertensives. To hold antihypertensives for systolic blood pressure less than 120. Repeat electrolytes in the morning. Ferrlicit 125 mg IV daily for 3 days. Second dose today.
--- NOTE | 2017-09-30 10:57 | P.PN ---
<William Bhatti - Last Filed: 09/30/17 10:42> Subjective Progress Note Date: 09/30/17 Principal diagnosis: Severe mitral valve regurgitation, rheumatic traumatic mitral valve disorder, mild aortic valve regurgitation, mild to moderate left ventricular dysfunction. Previous history of chronic persistent atrial fibrillation history of Eliquis for anticoagulation, COPD depression, peripheral artery disease with right toe gangrene and moderate to severe right ICA stenosis, chronic nicotine dependence , chronic kidney disease stage III, hypertension, coronary artery disease with previous stent placement, GERD, hypothyroidism, preoperative pneumonia with sputum culture positive for Enterobacter cloacae and Klebsiella oxytoca, preoperative urinary tract infection urine culture positive for Escherichia coli. POD #5, chordal preserving mitral valve replacement using a #27 mm pericardial Magna ease, biatrial full Albert maze procedure using radiofrequency and cryoablation, exclusion of the left atrial appendage using a 40 mm Atriclip, intraoperative transesophageal echocardiogram and epi-aortic scanning. Status post cardiac catheterization on 09/25/2017 demonstrating a patent LAD stent and no significant coronary stenosis. Status post neck on 09/18/2017 CTA demonstrating severe right internal carotid artery estimated at greater than 70%, moderate to severe narrowing of the proximal left internal carotid artery between 50-69%. Status post angiogram on 09/21/2017, no stent placement to the carotid arteries , right carotid approximately 70% stenosis, left carotid approximately 50% stenosis per angiogram. Status post cardiac arrest, reintubation for flash pulmonary edema. Patient is sitting up to the bedside chair. He is in no acute distress. He is awake, alert and oriented 3. He denies any complaints of pain at this time. He is achieving 1556-0817 mL on his spirometry with much encouragement. He is tolerating oral intake. Objective - Vital Signs Vital signs: Vital Signs Temp 97.5 F L 09/30/17 07:53 Pulse 97 09/30/17 07:53 Resp 16 09/30/17 07:53 BP 100/51 09/30/17 07:53 Pulse Ox 98 09/30/17 04:00 Intake & Output 09/29/17 09/30/17 09/30/17 18:59 06:59 18:59 Intake Total 525 240 Balance 525 240 Weight 76.9 kg 73.8 kg Intake: Oral 525 240 Other: Voiding Method Toilet Toilet Toilet Urinal Urinal Urinal # Voids 1 1 # Bowel Movements 1 ABP, PAP, CO, CI - Last Documented Arterial Blood Pressure 123/103 Pulmonary Artery Pressure 49/27 Cardiac Output 6.2 Cardiac Index 3.3 - Constitutional General appearance: Present: cooperative, no acute distress, thin - EENT ENT: Present: hearing grossly normal - Neck Details: No JVD, neck is supple, no lymphadenopathy. - Respiratory Details: Lungs sounds are essentially clear throughout, diminished bilateral bases. Respirations are symmetrical and nonlabored. Oxygen saturation saturations are 98% on room air. He is achieving 2750-3458 mL on his incentive spirometry. - Cardiovascular Details: Regular rhythm and rate. S1 and S2 present, negative for S3, gallop or murmur. Sternum is stable. Remote telemetry showing normal sinus rhythm heart rate 80. Heart hugger's in place and he is demonstrating appropriate use. Knee- high SARMAD hose and sequential compression devices in place to his bilateral lower extremity Fausto. No edema present. Atrial and ventricular epicardial pacemaker wires resident and grounded. - Gastrointestinal Gastrointestinal Comment(s): Abdomen is soft, nontender and nondistended. Active bowel sounds all 4 abdominal quadrants. He is tolerating a heart healthy diet. Bowel movement yesterday 09/29/2017. - Genitourinary Genitourinary Comment(s): Urine output adequate. Clear yellow urine. 650 mL output in the last 8 hours. - Integumentary Integumentary Comment(s): Midline sternal incision clean dry and well approximated. No drainage or redness present. Dermabond dressing clean and dry. Left great toe dressing clean and dry and intact. No drainage noted. Dermabond dressing in place to his left scapular and coccyx area, no drainage present. Skin is warm and dry. - Neurologic Neurologic: Present: CNII-XII intact - Musculoskeletal Musculoskeletal: Present: generalized weakness, strength equal bilaterally - Psychiatric Psychiatric: Present: A&O x's 3, appropriate affect, intact judgment & insight - Labs CBC & Chem 7: 09/30/17 05:18 09/30/17 05:18 Labs: Abnormal Lab Results - Last 24 Hours (Table) 09/29/17 09/30/17 09/30/17 Range/Units 21:25 02:24 05:18 RBC 2.87 L (4.30-5.90) m/uL Hgb 8.2 L (13.0-17.5) gm/dL Hct 27.4 L (39.0-53.0) % MCHC 29.9 L (31.0-37.0) g/dL RDW 17.1 H (11.5-15.5) % Plt Count 469 H (150-450) k/uL PT (9.0-12.0) sec INR (<1.2) BUN (9-20) mg/dL POC Glucose (mg/dL) 116 H 104 H (75-99) mg/dL Total Protein (6.3-8.2) g/dL Albumin (3.5-5.0) g/dL 09/30/17 09/30/17 09/30/17 Range/Units 05:18 05:18 05:55 RBC (4.30-5.90) m/uL Hgb (13.0-17.5) gm/dL Hct (39.0-53.0) % MCHC (31.0-37.0) g/dL RDW (11.5-15.5) % Plt Count (150-450) k/uL PT 13.1 H (9.0-12.0) sec INR 1.4 H (<1.2) BUN 21 H (9-20) mg/dL POC Glucose (mg/dL) 102 H (75-99) mg/dL Total Protein 5.9 L (6.3-8.2) g/dL Albumin 3.1 L (3.5-5.0) g/dL - Imaging and Cardiology Chest x-ray: report reviewed, image reviewed Assessment and Plan (1) Hypertension Current Visit: Yes Status: Chronic Code(s): I10 - ESSENTIAL (PRIMARY) HYPERTENSION SNOMED Code(s): 52696703 (2) Chronic kidney disease, stage III (moderate) Current Visit: Yes Status: Chronic Code(s): N18.3 - CHRONIC KIDNEY DISEASE, STAGE 3 (MODERATE) SNOMED Code(s): 363660633 (3) Hypothyroidism Current Visit: Yes Status: Chronic Code(s): E03.9 - HYPOTHYROIDISM, UNSPECIFIED SNOMED Code(s): 41159363 (4) History of depression Current Visit: Yes Status: Chronic Code(s): Z86.59 - PERSONAL HISTORY OF OTHER MENTAL AND BEHAVIORAL DISORDERS SNOMED Code(s): 087281704 (5) COPD (chronic obstructive pulmonary disease) Current Visit: Yes Status: Chronic Code(s): J44.9 - CHRONIC OBSTRUCTIVE PULMONARY DISEASE, UNSPECIFIED SNOMED Code(s): 47540294 (6) Acute and chronic respiratory failure with hypoxia Current Visit: Yes Status: Acute Code(s): J96.21 - ACUTE AND CHRONIC RESPIRATORY FAILURE WITH HYPOXIA SNOMED Code(s): 63865012 (7) CAD (coronary artery disease) Current Visit: Yes Status: Acute Code(s): I25.10 - ATHSCL HEART DISEASE OF [place] CORONARY ARTERY W/O ANG PCTRS SNOMED Code(s): 12748146 (8) Peripheral vascular disease Current Visit: Yes Status: Chronic Code(s): I73.9 - PERIPHERAL VASCULAR DISEASE, UNSPECIFIED SNOMED Code(s): 231413495 (9) New onset a-fib Current Visit: Yes Status: Acute Code(s): I48.91 - UNSPECIFIED ATRIAL FIBRILLATION SNOMED Code(s): 15196643 (10) Mild aortic valve regurgitation Current Visit: Yes Status: Acute Code(s): I35.1 - NONRHEUMATIC AORTIC (VALVE ) INSUFFICIENCY SNOMED Code(s): 83268204 (11) Postoperative UTI (urinary tract infection) Current Visit: Yes Status: Acute Code(s): N99.89 - OTH POSTPROCEDURAL COMPLICATIONS AND DISORDERS OF SYS; N39.0 - URINARY TRACT INFECTION, SITE NOT SPECIFIED SNOMED Code(s): 253318287 (12) Moderate left ventricular systolic dysfunction Current Visit: Yes Status: Acute Code(s): I51.9 - HEART DISEASE, UNSPECIFIED SNOMED Code(s): 568443814 (13) Pneumonia Current Visit: Yes Status: Acute Code(s): J18.9 - PNEUMONIA, UNSPECIFIED ORGANISM SNOMED Code(s): 837948036 (14) Carotid artery stenosis Current Visit: Yes Status: Chronic Code(s): I65.29 - OCCLUSION AND STENOSIS OF UNSPECIFIED CAROTID ARTERY SNOMED Code(s): 35578138 (15) Gangrenous toe Current Visit: Yes Status: Chronic Code(s): I96 - GANGRENE, NOT ELSEWHERE CLASSIFIED SNOMED Code(s): 275046563 (16) Mitral valve regurgitation Current Visit: Yes Status: Chronic Code(s): I34.0 - NONRHEUMATIC MITRAL ( VALVE) INSUFFICIENCY SNOMED Code(s): 49551442 Plan: 1. Continue aspirin, subcu heparin, hydralazine and Plavix. Continue to hold beta skylar for now. 2. Encourage incentive spirometry use 10 times every hour. Encourage continued smoking cessation. 3. Continue Lasix 40 mg IV daily, managed by nephrology. 4. GI/DVT prophylaxis. 5. Blood sugar management per primary care service. 6. Encourage increase in activity as tolerated, PT/OT and cardiac rehab following. 7. Will monitor daily labs and chest x-rays. Monitor I/O. 8. Continue to avoid nephrotoxic agents. 9. Wound care and antibiotic management per infectious disease. 10. More recommendations to follow as the patient progresses in his care. Discharge planning in place, Dr. Thapa consult pending. Patient will need rehab placement at discharge. Time with Patient: Greater than 30 <Carl Banks - Last Filed: 10/01/17 13:32> Objective - Vital Signs Vital signs: Vital Signs Temp 98.4 F 10/01/17 12:00 Pulse 68 10/01/17 12:00 Resp 16 10/01/17 12:00 BP 115/59 10/01/17 12:00 Pulse Ox 95 10/01/17 12:00 Intake & Output 09/30/17 10/01/17 10/01/17 18:59 06:59 18:59 Intake Total 960 600 Balance 960 600 Weight 74.9 kg Intake: Oral 960 600 Other: Voiding Method Toilet Toilet Toilet Urinal Urinal Urinal ABP, PAP, CO, CI - Last Documented Arterial Blood Pressure 123/103 Pulmonary Artery Pressure 49/27 Cardiac Output 6.2 Cardiac Index 3.3 - Labs CBC & Chem 7: 10/01/17 05:42 10/01/17 05:42 Labs: Abnormal Lab Results - Last 24 Hours (Table) 09/30/17 10/01/17 10/01/17 Range/Units 20:47 02:03 05:42 RBC 2.84 L (4.30-5.90) m/uL Hgb 8.0 L (13.0-17.5) gm/dL Hct 28.2 L (39.0-53.0) % MCHC 28.4 L (31.0-37.0) g/dL RDW 17.5 H (11.5-15.5) % Plt Count 488 H (150-450) k/uL PT (9.0-12.0) sec INR (<1.2) Carbon Dioxide (22-30) mmol/L Glucose (74-99) mg/dL POC Glucose (mg/dL) 130 H 122 H (75-99) mg/dL Total Protein (6.3-8.2) g/dL Albumin (3.5-5.0) g/dL 10/01/17 10/01/17 10/01/17 Range/Units 05:42 05:42 11:23 RBC (4.30-5.90) m/uL Hgb (13.0-17.5) gm/dL Hct (39.0-53.0) % MCHC (31.0-37.0) g/dL RDW (11.5-15.5) % Plt Count (150-450) k/uL PT 20.9 H (9.0-12.0) sec INR 2.3 H (<1.2) Carbon Dioxide 19 L (22-30) mmol/L Glucose 71 L (74-99) mg/dL POC Glucose (mg/dL) 129 H (75-99) mg/dL Total Protein 5.6 L (6.3-8.2) g/dL Albumin 2.7 L (3.5-5.0) g/dL Assessment and Plan Plan: The patient was seen and examined. I agree with the above assessment and plan. Overall he looks well. He is been ambulating in the hallway. He is on room air. He is on daily Lasix. We are awaiting transfer to inpatient rehab.
[2017-09-30 11:24] LABS: Glucose,Whole Blood 144 mg/dL (75-99)
--- NOTE | 2017-09-30 11:49 | P.PN ---
Subjective Progress Note Date: 09/30/17 Principal diagnosis: Severe mitral valve regurgitation, recurrent episodes of flash pulmonary edema and respiratory failure requiring intubation and mechanical ventilation. On 09/25/2017 patient seen post mitral valve replacement, modified Albert maze cryoablation, and exclusion of the left atrial appendage. Patient is intubated and sedated on mechanical ventilation with the vent settings assist control mode with a rate of 12, tidal volume 500, FiO2 100%, and PEEP of 5. Intraoperatively he received 1 unit of packed red blood cells for hemoglobin of 7.0. Patient has 2 mediastinal chest tubes that are Y-connected together, there is about 35 mL of sanguinous output in the atrium collection chamber. Patient's rhythm is sinus with a rate of any BPM. Patient has epicardial wires , connected to a temporary external pacemaker, with settings of AAI with a rate of 80 BPM. PA pressures of 48/25, with a mean of 29. The cardiac output and index are 4.5 and 2.4 respectively. Maintenance fluids are LR at 50 ML per hour , clevidipine is currently running at 2 mg per hour, Primacor is infusing at 0.2 mics per kilo per minute, and nitroglycerin at 5 mics per minute. Microbiology showed a sputum culture from 09/22/2017 positive for Enterobacter o 'clock K and Klebsiella oxytoca, and urine cultures positive for E. coli. Patient remains on a combination of cefazolin and vancomycin per ID service recommendation. This morning's lab work showed a PVC of 5.5, hemoglobin of 9.8 , renal profile improving, BUN of 21, creatinine of 1.5. Postop blood work is pending. Postop blood gases pending as well. Patient was reevaluated today on 09/26/2017, he is postoperative day #1. I saw him yesterday shortly after his surgery, and he was on mechanical ventilation. At night the patient was weaned and extubated uneventfully, and he is now on nasal cannula, in no distress. Chest x-ray showed minimal interstitial edema, however the patient responded well to Lasix earlier today by her to thoracic surgery. Patient is relatively asymptomatic, sitting in a bedside chair. Chest x-ray and labs were reviewed. His renal profile is improving creatinine is down to 1.40, it was 1.70 yesterday. Rest of the labs were unremarkable. Reevaluated today on 09/27/2017, patient is postoperative day #2. He is status post mitral valve replacement as noted above. Patient is off oxygen, he is on room air, saturating in the 90s, awake, in no form of respiratory distress whatsoever. Chest x-ray continues to show steady improvement of his pulmonary edema. CBC is relatively normal hemoglobin is 8.6. Electrolytes are normal BUN is 22 creatinine is even better today 1.20. Reevaluated today on 09/28/2017, he is postoperative day #3, status post mitral valve replacement, patient is off the oxygen, continues to do well on room air, saturating in the 90s again, he is not in any form of distress, chest x-ray is showing slight pulmonary edema, however he received Lasix earlier today and he responded quite well. CBC showed WBC count of 14.4 hemoglobin is 8.8 basic metabolic profile is normal creatinine is down to 1.09. The patient seen again today 09/29/2017 in follow-up on the selective care unit. He is currently sitting up in a chair at the bedside. He is awake and alert in no acute distress. This is postoperative day #4 status post mitral valve replacement. He denies any worsening shortness of breath, cough or congestion. He's been up ambulating with assistance. Chest x-ray shows persistent bibasilar opacities with mild improvement. He is working well at the incentive spirometer. He is maintaining good O2 saturations in the mid to upper 90s on room air. He is afebrile. Hemodynamically stable. He is maintained on Diflucan and meropenem. Continued on diuretics. White count 12.4. Hemoglobin 8.4. Creatinine 1.00. Reevaluated today on 09/26/2017, patient is doing great, he has no active pulmonary symptoms whatsoever. Continues to have minimal bibasilar opacities in the lungs, remains on antibiotics for pneumonia, patient is again asymptomatic, no cough no wheezing no shortness of breath, no fever, no chills, no hemoptysis. CBC is relatively normal except for hemoglobin of 8.2, patient is receiving iron. Basic metabolic profile is normal. Objective - Vital Signs Vital signs: Vital Signs Temp 97.5 F L 09/30/17 07:53 Pulse 84 09/30/17 11:25 Resp 16 09/30/17 11:15 BP 114/59 09/30/17 09:19 Pulse Ox 98 09/30/17 04:00 Intake & Output 09/29/17 09/30/17 09/30/17 18:59 06:59 18:59 Intake Total 525 240 Balance 525 240 Weight 76.9 kg 73.8 kg Intake: Oral 525 240 Other: Voiding Method Toilet Toilet Toilet Urinal Urinal Urinal # Voids 1 1 # Bowel Movements 1 ABP, PAP, CO, CI - Last Documented Arterial Blood Pressure 123/103 Pulmonary Artery Pressure 49/27 Cardiac Output 6.2 Cardiac Index 3.3 - Exam GENERAL EXAM: Revealed a 62-year-old -[place] male, on room air, in no distress. HEENT: PERRLA, EOMI, moist mucous membranes, no icterus, no neck masses, no JVD , no stridor, no thyromeg CHEST: No chest wall deformity. LUNGS: Minimal fine crackles at the bases were noted today. CVS: S1 and S2 normal,, no gallops, 2/6 systolic murmur throughout the precordium. ABDOMEN: No hepatosplenomegaly, normal bowel sounds, no guarding or rigidity. SPINE: No scoliosis or deformity SKIN: No rashes CENTRAL NERVOUS SYSTEM: Alert oriented 3, no gross focal neurologic deficit noted. EXTREMITIES: There is no peripheral edema. No clubbing, no cyanosis. Peripheral pulses are intact. - Labs CBC & Chem 7: 09/30/17 05:18 09/30/17 05:18 Labs: Abnormal Lab Results - Last 24 Hours (Table) 09/29/17 09/30/17 09/30/17 Range/Units 21:25 02:24 05:18 RBC 2.87 L (4.30-5.90) m/uL Hgb 8.2 L (13.0-17.5) gm/dL Hct 27.4 L (39.0-53.0) % MCHC 29.9 L (31.0-37.0) g/dL RDW 17.1 H (11.5-15.5) % Plt Count 469 H (150-450) k/uL PT (9.0-12.0) sec INR (<1.2) BUN (9-20) mg/dL POC Glucose (mg/dL) 116 H 104 H (75-99) mg/dL Total Protein (6.3-8.2) g/dL Albumin (3.5-5.0) g/dL 09/30/1718 09/30/17 Range/Units 05:18 05:18 05:55 RBC (4.30-5.90) m/uL Hgb (13.0-17.5) gm/dL Hct (39.0-53.0) % MCHC (31.0-37.0) g/dL RDW (11.5-15.5) % Plt Count (150-450) k/uL PT 13.1 H (9.0-12.0) sec INR 1.4 H (<1.2) BUN 21 H (9-20) mg/dL POC Glucose (mg/dL) 102 H (75-99) mg/dL Total Protein 5.9 L (6.3-8.2) g/dL Albumin 3.1 L (3.5-5.0) g/dL 09/30/17 Range/Units 11:18 RBC (4.30-5.90) m/uL Hgb (13.0-17.5) gm/dL Hct (39.0-53.0) % MCHC (31.0-37.0) g/dL RDW (11.5-15.5) % Plt Count (150-450) k/uL PT (9.0-12.0) sec INR (<1.2) BUN (9-20) mg/dL POC Glucose (mg/dL) 144 H (75-99) mg/dL Total Protein (6.3-8.2) g/dL Albumin (3.5-5.0) g/dL Assessment and Plan Assessment: Severe mitral regurgitation, with recurrent episodes of systolic congestive heart failure, status post mitral valve replacement, biatrial modified Albert maze procedure and exclusion of the left atrial appendix, postop day # 5 Recurrent episodes of hypoxic respiratory failure requiring intubation and mechanical ventilation, mostly secondary to mitral valve disease, and the patient is developing flash pulmonary edema, resolved since the patient had his mitral valve replacement. Atrial fibrillation/RVR, currently in sinus rhythm. Presently the patient seems in a junctional rhythm. History of CAD with previous stent placement History of COPD History of essential hypertension History of depression Peripheral vascular occlusive disease Hypothyroidism Hypertensive nephrosclerosis with acute on chronic kidney disease, resolved Acute cellulitis and dry gangrene of the left big toe, status post debridement Bilateral carotid disease, worse on the right with a greater than 70% obstruction, angiogram showed the obstruction was nonsignificant. Positive sputum cultures and urine cultures as noted above in my previous documentation, and his antibiotics were switched to Merrem, it will cover his Enterobacter, Klebsiella, and E. coli. Recommendation: Continue present supportive care measures, continue antibiotics , bronchodilators, incentive spirometry, ambulation, and hopefully the patient could be eventually discharged to a rehab facility in the next few days. Time with Patient: Less than 30
[2017-09-30] MEDS: SODIUM CHLORIDE 0.9% 1,000 ML IV SCH (12:12)
--- NOTE | 2017-09-30 15:18 | PN ---
PROGRESS NOTE Mr. Maradiaga is status post mitral valve replacement. He is doing well. He is resting comfortably. Denies chest pain. Breathing is easier. Vital signs are stable. S1, S2 heard normally. Short systolic murmur noted. Lungs are clear. Abdomen and lower extremity exam unchanged. Plan is to continue incentive spirometry, pulmonary toilet, and hopefully discharge him either today or tomorrow based on his progress. MMODL / IJN: [id number] /
[2017-09-30] MEDS: FLUCONAZOLE 100 MG TAB PO SCH (16:22)
[2017-09-30 16:47] LABS: Glucose,Whole Blood 99 mg/dL (75-99)
[2017-09-30 20:49] LABS: Glucose,Whole Blood 130 mg/dL (75-99)
[2017-09-30] MEDS: ATORVASTATIN 40 MG TAB PO SCH (21:04)
[2017-09-30] MEDS: SENNOSIDES-DOCUSATE SODIUM 1 EACH TAB PO SCH (21:06)
[2017-10-01 02:08] LABS: Glucose,Whole Blood 122 mg/dL (75-99)
[2017-10-01 05:55] LABS: Glucose,Whole Blood 93 mg/dL (75-99)
[2017-10-01] MEDS: INSULIN ASPART 100 UNIT/ML 1 ML 10 ML VIAL SQ SCH ×4 (06:06→21:10)
[2017-10-01 06:38] LABS: Anisocytosis Slight; HCT 28.2 % (39.0-53.0); Hypochromasia Marked; MCH 28.2 pg (25.0-35.0); MCHC 28.4 g/dL (31.0-37.0); MCV 99.4 fL (80.0-100.0); Macrocytosis Slight; Mean Platelet Volume 7.9; Platelet Count 488 k/uL (150-450); RBC 2.84 m/uL (4.30-5.90); RDW 17.5 % (11.5-15.5); WBC 9.7 k/uL (3.8-10.6)
[2017-10-01 06:40] LABS: INR 2.3 (<1.2); Prothrombin Time 20.9 sec (9.0-12.0)
[2017-10-01] MEDS: PANTOPRAZOLE 40 MG TABLET PO SCH (06:44)
[2017-10-01] MEDS: LEVOTHYROXINE 25 MCG TAB PO SCH (06:45)
[2017-10-01] MEDS: HYDROcodone/APAP 5-325MG 1 EACH TAB PO PRN ×2 (06:51→21:05)
[2017-10-01 06:52] LABS: ALT 30 U/L (21-72); AST 38 U/L (17-59); Albumin 2.7 g/dL (3.5-5.0); Alkaline Phosphatase 56 U/L (38-126); Anion Gap 12 mmol/L; Blood Urea Nitrogen 18 mg/dL (9-20); Calcium 8.7 mg/dL (8.4-10.2); Carbon Dioxide 19 mmol/L (22-30); Chloride 106 mmol/L (98-107); Glucose 71 mg/dL (74-99); Potassium 4.4 mmol/L (3.5-5.1); Sodium 137 mmol/L (137-145); Total Bilirubin 0.5 mg/dL (0.2-1.3); Total Protein 5.6 g/dL (6.3-8.2)
[2017-10-01] MEDS: IPRATROPIUM-ALBUTEROL 3 ML NEB INHALATION SCH ×4 (07:44→19:47)
[2017-10-01] MEDS: MEROPENEM 500 MG in SODIUM CHLORIDE 0.9% 50 ML IVPB SCH ×2 (08:22→16:09)
[2017-10-01] MEDS: HEPARIN SODIUM,PORCINE 5,000 UNIT/ML 1 ML VIAL SQ SCH (08:22)
[2017-10-01] MEDS: METOPROLOL TARTRATE 12.5 MG TAB PO SCH ×2 (08:22→21:05)
[2017-10-01] MEDS: ASPIRIN 325 MG TAB PO SCH (08:23)
[2017-10-01] MEDS: NICOTINE 21MG/24HR PATCH TRANSDERM SCH (08:23)
[2017-10-01] MEDS: FLUoxetine HCL 20 MG CAP PO SCH (08:23)
[2017-10-01] MEDS: FUROSEMIDE 10 MG/ML 4 ML VIAL IV SCH (08:23)
[2017-10-01] MEDS: CLOPIDOGREL 75 MG TAB PO SCH (08:23)
[2017-10-01] MEDS: hydrALAZINE HCL 25 MG TAB PO SCH (08:26)
[2017-10-01] MEDS: LISINOPRIL 2.5 MG TAB PO SCH ×2 (08:26→12:11)
--- NOTE | 2017-10-01 09:11 | P.PN ---
Subjective Patient is seen in follow-up for acute kidney injury. Renal function is improved with creatinine at 0.98 today. He is status post mitral valve replacement on September 25. He is awake and alert and currently sitting up in bed. Currently maintained on antibiotics for E. coli UTI as well as Enterobacter and Klebsiella noted on sputum culture. He is nonoliguric. Blood pressure is well controlled. He was started on low-dose lisinopril on September 29. Oral intake is good. No active complaints at this time. Vital signs are stable. General: The patient appeared well nourished and normally developed. Currently intubated. HEENT: Head exam is unremarkable. Neck is without jugular venous distension. LUNGS: Lungs are clear to auscultation and percussion. Breath sounds decreased. HEART: Rate and Rhythm are regular. First and second heart sounds normal. No murmurs, rubs or gallops. ABDOMEN: Abdominal exam reveals normal bowel sounds. Non-tender and non- distended. No evidence of peritonitis. EXTREMITITES: No clubbing, cyanosis, or edema. Objective - Vital Signs Vital signs: Vital Signs Temp 98.6 F 10/01/17 08:00 Pulse 86 10/01/17 08:00 Resp 16 10/01/17 08:00 BP 119/59 10/01/17 08:00 Pulse Ox 96 10/01/17 08:00 Intake & Output 09/30/17 10/01/17 10/01/17 18:59 06:59 18:59 Intake Total 960 360 Balance 960 360 Weight 74.9 kg Intake: Oral 960 360 Other: Voiding Method Toilet Toilet Urinal Urinal ABP, PAP, CO, CI - Last Documented Arterial Blood Pressure 123/103 Pulmonary Artery Pressure 49/27 Cardiac Output 6.2 Cardiac Index 3.3 - Labs CBC & Chem 7: 10/01/17 05:42 10/01/17 05:42 Labs: Abnormal Lab Results - Last 24 Hours (Table) 09/30/17 09/30/17 10/01/17 Range/Units 11:18 20:47 02:03 RBC (4.30-5.90) m/uL Hgb (13.0-17.5) gm/dL Hct (39.0-53.0) % MCHC (31.0-37.0) g/dL RDW (11.5-15.5) % Plt Count (150-450) k/uL PT (9.0-12.0) sec INR (<1.2) Carbon Dioxide (22-30) mmol/L Glucose (74-99) mg/dL POC Glucose (mg/dL) 144 H 130 H 122 H (75-99) mg/dL Total Protein (6.3-8.2) g/dL Albumin (3.5-5.0) g/dL 10/01/17 10/01/17 10/01/17 Range/Units 05:42 05:42 05:42 RBC 2.84 L (4.30-5.90) m/uL Hgb 8.0 L (13.0-17.5) gm/dL Hct 28.2 L (39.0-53.0) % MCHC 28.4 L (31.0-37.0) g/dL RDW 17.5 H (11.5-15.5) % Plt Count 488 H (150-450) k/uL PT 20.9 H (9.0-12.0) sec INR 2.3 H (<1.2) Carbon Dioxide 19 L (22-30) mmol/L Glucose 71 L (74-99) mg/dL POC Glucose (mg/dL) (75-99) mg/dL Total Protein 5.6 L (6.3-8.2) g/dL Albumin 2.7 L (3.5-5.0) g/dL Assessment and Plan Plan: Assessment: #1. Nonoliguric acute kidney injury secondary to ATN secondary to contrast- induced nephropathy and hemodynamic instability. Resolved. #2. Mild hyperkalemia secondary to acute kidney injury and lactated Ringer's. Improved. #3. Chronic kidney disease stage III with baseline creatinine in the range of 1.2-1.4 secondary to nephrosclerosis. #4. Mitral valve regurgitation status post mitral valve replacement on 2017. #5. Pneumonia with sputum culture positive for Enterobacter and Klebsiella. #6. UTI with urine culture positive for E. coli. #7. Systolic CHF with ejection fraction of 40%. #8. Atrial fibrillation. Currently rate controlled. #9. Anemia status post blood transfusion on September 25. Hemoglobin 8.2 this morning. Iron deficiency noted. #10. Hypertension with chronic kidney disease. Controlled. #11. Metabolic acidosis secondary to acute kidney injury. Plan: Continue Lasix 40 mg once daily - can transition to oral tomorrow. Add low-dose sodium bicarbonate. Avoid nephrotoxic agents and hypotensive episodes. Continue to monitor renal function and urine output. Antibiotics per infectious disease recommendations. Maintain current antihypertensives. To hold antihypertensives for systolic blood pressure less than 120. Repeat electrolytes in the morning. Ferrlicit 125 mg IV daily for 3 days. Third dose today. Anticipated discharge to rehab soon.
[2017-10-01] MEDS: SODIUM BICARBONATE TAB 650 MG TAB PO SCH ×2 (09:21→21:17)
[2017-10-01] MEDS: SODIUM FERRIC GLUCONAT-SUCROSE 125 MG in SODIUM CHLORIDE 0.9% 100 ML IVPB SCH (09:21)
[2017-10-01] MEDS: MAGNESIUM SULFATE-D5W PMX 1 GM in DEXTROSE/WATER 1 100ML.BAG IVPB SCH ×2 (10:23→11:31)
[2017-10-01 11:28] LABS: Glucose,Whole Blood 129 mg/dL (75-99)
--- NOTE | 2017-10-01 11:57 | P.PN ---
Subjective Progress Note Date: 10/01/17 Principal diagnosis: Severe mitral valve regurgitation, recurrent episodes of flash pulmonary edema and respiratory failure requiring intubation and mechanical ventilation. On 09/25/2017 patient seen post mitral valve replacement, modified Albert maze cryoablation, and exclusion of the left atrial appendage. Patient is intubated and sedated on mechanical ventilation with the vent settings assist control mode with a rate of 12, tidal volume 500, FiO2 100%, and PEEP of 5. Intraoperatively he received 1 unit of packed red blood cells for hemoglobin of 7.0. Patient has 2 mediastinal chest tubes that are Y-connected together, there is about 35 mL of sanguinous output in the atrium collection chamber. Patient's rhythm is sinus with a rate of any BPM. Patient has epicardial wires , connected to a temporary external pacemaker, with settings of AAI with a rate of 80 BPM. PA pressures of 48/25, with a mean of 29. The cardiac output and index are 4.5 and 2.4 respectively. Maintenance fluids are LR at 50 ML per hour , clevidipine is currently running at 2 mg per hour, Primacor is infusing at 0.2 mics per kilo per minute, and nitroglycerin at 5 mics per minute. Microbiology showed a sputum culture from 09/22/2017 positive for Enterobacter o 'clock K and Klebsiella oxytoca, and urine cultures positive for E. coli. Patient remains on a combination of cefazolin and vancomycin per ID service recommendation. This morning's lab work showed a PVC of 5.5, hemoglobin of 9.8 , renal profile improving, BUN of 21, creatinine of 1.5. Postop blood work is pending. Postop blood gases pending as well. Patient was reevaluated today on 09/26/2017, he is postoperative day #1. I saw him yesterday shortly after his surgery, and he was on mechanical ventilation. At night the patient was weaned and extubated uneventfully, and he is now on nasal cannula, in no distress. Chest x-ray showed minimal interstitial edema, however the patient responded well to Lasix earlier today by her to thoracic surgery. Patient is relatively asymptomatic, sitting in a bedside chair. Chest x-ray and labs were reviewed. His renal profile is improving creatinine is down to 1.40, it was 1.70 yesterday. Rest of the labs were unremarkable. Reevaluated today on 09/27/2017, patient is postoperative day #2. He is status post mitral valve replacement as noted above. Patient is off oxygen, he is on room air, saturating in the 90s, awake, in no form of respiratory distress whatsoever. Chest x-ray continues to show steady improvement of his pulmonary edema. CBC is relatively normal hemoglobin is 8.6. Electrolytes are normal BUN is 22 creatinine is even better today 1.20. Reevaluated today on 09/28/2017, he is postoperative day #3, status post mitral valve replacement, patient is off the oxygen, continues to do well on room air, saturating in the 90s again, he is not in any form of distress, chest x-ray is showing slight pulmonary edema, however he received Lasix earlier today and he responded quite well. CBC showed WBC count of 14.4 hemoglobin is 8.8 basic metabolic profile is normal creatinine is down to 1.09. The patient seen again today 09/29/2017 in follow-up on the selective care unit. He is currently sitting up in a chair at the bedside. He is awake and alert in no acute distress. This is postoperative day #4 status post mitral valve replacement. He denies any worsening shortness of breath, cough or congestion. He's been up ambulating with assistance. Chest x-ray shows persistent bibasilar opacities with mild improvement. He is working well at the incentive spirometer. He is maintaining good O2 saturations in the mid to upper 90s on room air. He is afebrile. Hemodynamically stable. He is maintained on Diflucan and meropenem. Continued on diuretics. White count 12.4. Hemoglobin 8.4. Creatinine 1.00. Reevaluated today on 09/30/2017, patient is doing great, he has no active pulmonary symptoms whatsoever. Continues to have minimal bibasilar opacities in the lungs, remains on antibiotics for pneumonia, patient is again asymptomatic, no cough no wheezing no shortness of breath, no fever, no chills, no hemoptysis. CBC is relatively normal except for hemoglobin of 8.2, patient is receiving iron. Basic metabolic profile is normal. Reevaluated today on 10/01/2017, patient remains stable, asymptomatic, no cough no wheezing no shortness of breath. No chest x-ray was done. Labs today were excellent hemoglobin is holding at 8.0 basic metabolic profile is normal creatinine is back to baseline normal 0.98. Patient isn't ready beginning to ambulate. Objective - Vital Signs Vital signs: Vital Signs Temp 98.6 F 10/01/17 08:00 Pulse 80 10/01/17 11:02 Resp 16 10/01/17 08:00 BP 119/59 10/01/17 08:00 Pulse Ox 96 10/01/17 08:00 Intake & Output 09/30/17 10/01/17 10/01/17 18:59 06:59 18:59 Intake Total 960 360 Balance 960 360 Weight 74.9 kg Intake: Oral 960 360 Other: Voiding Method Toilet Toilet Toilet Urinal Urinal Urinal ABP, PAP, CO, CI - Last Documented Arterial Blood Pressure 123/103 Pulmonary Artery Pressure 49/27 Cardiac Output 6.2 Cardiac Index 3.3 - Exam GENERAL EXAM: Revealed a 62-year-old -[place] male, on room air, in no distress. HEENT: PERRLA, EOMI, moist mucous membranes, no icterus, no neck masses, no JVD , no stridor, no thyromeg CHEST: No chest wall deformity. LUNGS: Clear bilaterally, no crackles or rhonchi or wheezes. Symmetrical chest expansion was noted. CVS: S1 and S2 normal,, no gallops, 2/6 systolic murmur throughout the precordium. ABDOMEN: Soft nontender no megaly no rebound no guarding. Positive bowel sounds. SPINE: No scoliosis or deformity SKIN: No rashes CENTRAL NERVOUS SYSTEM: Alert oriented 3, no gross focal neurologic deficit noted. EXTREMITIES: There is no peripheral edema. No clubbing, no cyanosis. Peripheral pulses are intact. - Labs CBC & Chem 7: 10/01/17 05:42 10/01/17 05:42 Labs: Abnormal Lab Results - Last 24 Hours (Table) 09/30/17 10/01/17 10/01/17 Range/Units 20:47 02:03 05:42 RBC 2.84 L (4.30-5.90) m/uL Hgb 8.0 L (13.0-17.5) gm/dL Hct 28.2 L (39.0-53.0) % MCHC 28.4 L (31.0-37.0) g/dL RDW 17.5 H (11.5-15.5) % Plt Count 488 H (150-450) k/uL PT (9.0-12.0) sec INR (<1.2) Carbon Dioxide (22-30) mmol/L Glucose (74-99) mg/dL POC Glucose (mg/dL) 130 H 122 H (75-99) mg/dL Total Protein (6.3-8.2) g/dL Albumin (3.5-5.0) g/dL 10/01/17 10/01/17 10/01/17 Range/Units 05:42 05:42 11:23 RBC (4.30-5.90) m/uL Hgb (13.0-17.5) gm/dL Hct (39.0-53.0) % MCHC (31.0-37.0) g/dL RDW (11.5-15.5) % Plt Count (150-450) k/uL PT 20.9 H (9.0-12.0) sec INR 2.3 H (<1.2) Carbon Dioxide 19 L (22-30) mmol/L Glucose 71 L (74-99) mg/dL POC Glucose (mg/dL) 129 H (75-99) mg/dL Total Protein 5.6 L (6.3-8.2) g/dL Albumin 2.7 L (3.5-5.0) g/dL Assessment and Plan Assessment: Severe mitral regurgitation, with recurrent episodes of systolic congestive heart failure, status post mitral valve replacement, biatrial modified Albert maze procedure and exclusion of the left atrial appendix, postop day #6 Recurrent episodes of hypoxic respiratory failure requiring intubation and mechanical ventilation, mostly secondary to mitral valve disease, and the patient is developing flash pulmonary edema, resolved since the patient had his mitral valve replacement. Atrial fibrillation/RVR, currently in sinus rhythm. Presently the patient seems in a junctional rhythm. History of CAD with previous stent placement History of COPD History of essential hypertension History of depression Peripheral vascular occlusive disease Hypothyroidism Hypertensive nephrosclerosis with acute on chronic kidney disease, resolved Acute cellulitis and dry gangrene of the left big toe, status post debridement Bilateral carotid disease, worse on the right with a greater than 70% obstruction, angiogram showed the obstruction was nonsignificant. Positive sputum cultures and urine cultures as noted above in my previous documentation, and his antibiotics were switched to Merrem, it will cover his Enterobacter, Klebsiella, and E. coli. Recommendation: Continue present supportive care measures, continue antibiotics , bronchodilators, incentive spirometry, ambulation, and hopefully the patient could be eventually discharged to a rehab facility in the next 24 hours Time with Patient: Less than 30
--- NOTE | 2017-10-01 13:29 | P.PN ---
<William Bhatti Odette - Last Filed: 10/01/17 13:27> Subjective Progress Note Date: 10/01/17 Principal diagnosis: Severe mitral valve regurgitation, rheumatic traumatic mitral valve disorder, mild aortic valve regurgitation, mild to moderate left ventricular dysfunction. Previous history of chronic persistent atrial fibrillation history of Eliquis for anticoagulation, COPD depression, peripheral artery disease with right toe gangrene and moderate to severe right ICA stenosis, chronic nicotine dependence , chronic kidney disease stage III, hypertension, coronary artery disease with previous stent placement, GERD, hypothyroidism, preoperative pneumonia with sputum culture positive for Enterobacter cloacae and Klebsiella oxytoca, preoperative urinary tract infection urine culture positive for Escherichia coli. POD #6, chordal preserving mitral valve replacement using a #27 mm pericardial Magna ease, biatrial full Albert maze procedure using radiofrequency and cryoablation, exclusion of the left atrial appendage using a 40 mm Atriclip, intraoperative transesophageal echocardiogram and epi-aortic scanning. Status post cardiac catheterization on 09/25/2017 demonstrating a patent LAD stent and no significant coronary stenosis. Status post neck on 09/18/2017 CTA demonstrating severe right internal carotid artery estimated at greater than 70%, moderate to severe narrowing of the proximal left internal carotid artery between 50-69%. Status post angiogram on 09/21/2017, no stent placement to the carotid arteries , right carotid approximately 70% stenosis, left carotid approximately 50% stenosis per angiogram. Status post cardiac arrest, reintubation for flash pulmonary edema. Patient is sitting up to the bedside chair. He is in no acute distress. He is awake, alert and oriented 3. He denies any complaints of pain at this time. He is achieving 1250 mL on his spirometry with much encouragement. He is tolerating oral intake. He reports that he has been ambulating in his room from the chair to the bathroom without difficulty. Objective - Vital Signs Vital signs: Vital Signs Temp 98.6 F 10/01/17 08:00 Pulse 86 10/01/17 08:00 Resp 16 10/01/17 08:00 BP 119/59 10/01/17 08:00 Pulse Ox 96 10/01/17 08:00 Intake & Output 09/30/17 10/01/17 10/01/17 18:59 06:59 18:59 Intake Total 960 360 Balance 960 360 Weight 74.9 kg Intake: Oral 960 360 Other: Voiding Method Toilet Toilet Toilet Urinal Urinal Urinal ABP, PAP, CO, CI - Last Documented Arterial Blood Pressure 123/103 Pulmonary Artery Pressure 49/27 Cardiac Output 6.2 Cardiac Index 3.3 - Constitutional General appearance: Present: cooperative, no acute distress, thin - EENT ENT: Present: hearing grossly normal - Neck Details: Neck is supple, no JVD or lymphadenopathy. - Respiratory Details: Lung sounds are essentially clear throughout, diminished to his bilateral bases. Respirations are symmetrical and nonlabored. Oxygen saturation saturations are 96% on room air. He is achieving 1250 mL with encouragement on his incentive spirometry. - Cardiovascular Details: Regular rhythm with controlled rate. S1 and S2 present, negative for S3, gallop or murmur. Remote telemetry showing normal sinus rhythm heart rate 80. Atrial and ventricular epicardial pacemaker wires intact and grounded. Knee- high SARMAD hose and sequential compression devices in place to his bilateral lower extremities. Heart hugger is in place and he is demonstrating appropriate use. No edema present. - Gastrointestinal Gastrointestinal Comment(s): Abdomen is soft, nontender and nondistended. Active bowel sounds all 4 abdominal quadrants. Tolerating oral intake. Last bowel movement on 2017. - Genitourinary Genitourinary Comment(s): Adequate urine output. Clear madhavi urine. - Integumentary Integumentary Comment(s): Midline sternal incision clean dry and well approximated. No drainage or redness present. Dermabond dressing clean and dry. Left great toe and second toe dressing clean and dry and intact. No drainage noted. Dermabond dressing in place to his left scapular and coccyx area, no drainage present. Skin is warm and dry. - Neurologic Neurologic: Present: CNII-XII intact - Musculoskeletal Musculoskeletal: Present: gait normal, strength equal bilaterally - Psychiatric Psychiatric: Present: A&O x's 3, appropriate affect, intact judgment & insight - Allied health notes Allied health notes reviewed: nursing - Labs CBC & Chem 7: 10/01/17 05:42 10/01/17 05:42 Labs: Abnormal Lab Results - Last 24 Hours (Table) 09/30/17 09/30/17 10/01/17 Range/Units 11:18 20:47 02:03 RBC (4.30-5.90) m/uL Hgb (13.0-17.5) gm/dL Hct (39.0-53.0) % MCHC (31.0-37.0) g/dL RDW (11.5-15.5) % Plt Count (150-450) k/uL PT (9.0-12.0) sec INR (<1.2) Carbon Dioxide (22-30) mmol/L Glucose (74-99) mg/dL POC Glucose (mg/dL) 144 H 130 H 122 H (75-99) mg/dL Total Protein (6.3-8.2) g/dL Albumin (3.5-5.0) g/dL 10/01/17 10/01/17 10/01/17 Range/Units 05:42 05:42 05:42 RBC 2.84 L (4.30-5.90) m/uL Hgb 8.0 L (13.0-17.5) gm/dL Hct 28.2 L (39.0-53.0) % MCHC 28.4 L (31.0-37.0) g/dL RDW 17.5 H (11.5-15.5) % Plt Count 488 H (150-450) k/uL PT 20.9 H (9.0-12.0) sec INR 2.3 H (<1.2) Carbon Dioxide 19 L (22-30) mmol/L Glucose 71 L (74-99) mg/dL POC Glucose (mg/dL) (75-99) mg/dL Total Protein 5.6 L (6.3-8.2) g/dL Albumin 2.7 L (3.5-5.0) g/dL Assessment and Plan (1) Hypertension Current Visit: Yes Status: Chronic Code(s): I10 - ESSENTIAL (PRIMARY) HYPERTENSION SNOMED Code(s): 59529964 (2) Chronic kidney disease, stage III (moderate) Current Visit: Yes Status: Chronic Code(s): N18.3 - CHRONIC KIDNEY DISEASE, STAGE 3 (MODERATE) SNOMED Code(s): 994017517 (3) Hypothyroidism Current Visit: Yes Status: Chronic Code(s): E03.9 - HYPOTHYROIDISM, UNSPECIFIED SNOMED Code(s): 12011480 (4) History of depression Current Visit: Yes Status: Chronic Code(s): Z86.59 - PERSONAL HISTORY OF OTHER MENTAL AND BEHAVIORAL DISORDERS SNOMED Code(s): 083735780 (5) COPD (chronic obstructive pulmonary disease) Current Visit: Yes Status: Chronic Code(s): J44.9 - CHRONIC OBSTRUCTIVE PULMONARY DISEASE, UNSPECIFIED SNOMED Code(s): 31973513 (6) Acute and chronic respiratory failure with hypoxia Current Visit: Yes Status: Acute Code(s): J96.21 - ACUTE AND CHRONIC RESPIRATORY FAILURE WITH HYPOXIA SNOMED Code(s): 87751142 (7) CAD (coronary artery disease) Current Visit: Yes Status: Acute Code(s): I25.10 - ATHSCL HEART DISEASE OF [place] CORONARY ARTERY W/O ANG PCTRS SNOMED Code(s): 76290810 (8) Peripheral vascular disease Current Visit: Yes Status: Chronic Code(s): I73.9 - PERIPHERAL VASCULAR DISEASE, UNSPECIFIED SNOMED Code(s): 470437115 (9) New onset a-fib Current Visit: Yes Status: Acute Code(s): I48.91 - UNSPECIFIED ATRIAL FIBRILLATION SNOMED Code(s): 98611045 (10) Mild aortic valve regurgitation Current Visit: Yes Status: Acute Code(s): I35.1 - NONRHEUMATIC AORTIC (VALVE ) INSUFFICIENCY SNOMED Code(s): 81581936 (11) Postoperative UTI (urinary tract infection) Current Visit: Yes Status: Acute Code(s): N99.89 - OTH POSTPROCEDURAL COMPLICATIONS AND DISORDERS OF SYS; N39.0 - URINARY TRACT INFECTION, SITE NOT SPECIFIED SNOMED Code(s): 238673600 (12) Moderate left ventricular systolic dysfunction Current Visit: Yes Status: Acute Code(s): I51.9 - HEART DISEASE, UNSPECIFIED SNOMED Code(s): 670060138 (13) Pneumonia Current Visit: Yes Status: Acute Code(s): J18.9 - PNEUMONIA, UNSPECIFIED ORGANISM SNOMED Code(s): 300849267 (14) Carotid artery stenosis Current Visit: Yes Status: Chronic Code(s): I65.29 - OCCLUSION AND STENOSIS OF UNSPECIFIED CAROTID ARTERY SNOMED Code(s): 09381633 (15) Gangrenous toe Current Visit: Yes Status: Chronic Code(s): I96 - GANGRENE, NOT ELSEWHERE CLASSIFIED SNOMED Code(s): 303346373 (16) Mitral valve regurgitation Current Visit: Yes Status: Chronic Code(s): I34.0 - NONRHEUMATIC MITRAL ( VALVE) INSUFFICIENCY SNOMED Code(s): 69282112 Plan: 1. Continue low-dose aspirin, lisinopril, beta skylar and Plavix. 2. Encourage incentive spirometry use 10 times every hour. Encourage continued smoking cessation. 3. Lasix 40 mg IV daily, managed by nephrology. 4. GI/DVT prophylaxis. 5. Blood sugar management per primary care service. 6. Encourage increase in activity as tolerated, PT/OT and cardiac rehab following. 7. Will monitor daily labs and chest x-rays. Monitor I/O. 8. Continue to avoid nephrotoxic agents. 9. Wound care and antibiotic management per infectious disease. 10. We will discontinue the hydralazine. 11. The patient received Coumadin 10 mg by mouth 1 on 09/29/2017. His INR today is 2.3. Coumadin 3 mg by mouth today. Daily PT and INRs. 12. Discontinue subcu heparin and Plavix. 13. More recommendations to follow as the patient progresses in his care. Discharge planning in place. Patient will need subacute or inpatient rehab placement at discharge. Time with Patient: Greater than 30 <Carl Banks - Last Filed: 10/01/17 13:45> Objective - Vital Signs Vital signs: Vital Signs Temp 98.4 F 10/01/17 12:00 Pulse 68 10/01/17 12:00 Resp 16 10/01/17 12:00 BP 115/59 10/01/17 12:00 Pulse Ox 95 10/01/17 12:00 Intake & Output 09/30/17 10/01/17 10/01/17 18:59 06:59 18:59 Intake Total 960 600 Balance 960 600 Weight 74.9 kg Intake: Oral 960 600 Other: Voiding Method Toilet Toilet Toilet Urinal Urinal Urinal ABP, PAP, CO, CI - Last Documented Arterial Blood Pressure 123/103 Pulmonary Artery Pressure 49/27 Cardiac Output 6.2 Cardiac Index 3.3 - Labs CBC & Chem 7: 10/01/17 05:42 10/01/17 05:42 Labs: Abnormal Lab Results - Last 24 Hours (Table) 09/30/17 10/01/17 10/01/17 Range/Units 20:47 02:03 05:42 RBC 2.84 L (4.30-5.90) m/uL Hgb 8.0 L (13.0-17.5) gm/dL Hct 28.2 L (39.0-53.0) % MCHC 28.4 L (31.0-37.0) g/dL RDW 17.5 H (11.5-15.5) % Plt Count 488 H (150-450) k/uL PT (9.0-12.0) sec INR (<1.2) Carbon Dioxide (22-30) mmol/L Glucose (74-99) mg/dL POC Glucose (mg/dL) 130 H 122 H (75-99) mg/dL Total Protein (6.3-8.2) g/dL Albumin (3.5-5.0) g/dL 10/01/17 10/01/17 10/01/17 Range/Units 05:42 05:42 11:23 RBC (4.30-5.90) m/uL Hgb (13.0-17.5) gm/dL Hct (39.0-53.0) % MCHC (31.0-37.0) g/dL RDW (11.5-15.5) % Plt Count (150-450) k/uL PT 20.9 H (9.0-12.0) sec INR 2.3 H (<1.2) Carbon Dioxide 19 L (22-30) mmol/L Glucose 71 L (74-99) mg/dL POC Glucose (mg/dL) 129 H (75-99) mg/dL Total Protein 5.6 L (6.3-8.2) g/dL Albumin 2.7 L (3.5-5.0) g/dL Assessment and Plan Plan: The patient was seen and examined. I agree with the above assessment and plan. Patient's INR is 2.3 today. He will receive 3 mg of Coumadin this evening. We'll plan on cutting his temporary pacing wires before discharge. We're awaiting transfer to inpatient rehab.
--- NOTE | 2017-10-01 15:18 | PN ---
PROGRESS NOTE Status post mitral valve replacement, doing very well, recovering nicely, doing well on incentive spirometry. Remains an ectopic atrial rhythm. S1-S2 heard normally. Short systolic murmur noted. Lungs are clear. Abdomen and lower exam unchanged. Plan is to continue current medications and incentive spirometry. MMODL / IJN: [id number] /
[2017-10-01] MEDS: FLUCONAZOLE 100 MG TAB PO SCH (16:10)
[2017-10-01 16:59] LABS: Glucose,Whole Blood 110 mg/dL (75-99)
--- NOTE | 2017-10-01 17:41 | P.PN ---
Progress Note - Text Progress Note Date: 09/30/17 Date of service: 09/30/2017 Presenting complaint: Tired Interval history: This is a patient initially admitted with infection of the left big toe. Subsequently had recurrent flash pulmonary edema eventually leading to mitral valve replacement. Also had Maze procedure done. Also being treated for pneumonia. Patient has bilateral carotid artery stenosis-not felt to be critical for any further intervention by Dr. Gordon. Today-patient starting a diet. Back and forth to the bathroom. Breathing is stable. Pain is controlled. Patient is back into sinus rhythm. Review of systems: Was done for constitutional, cardiovascular, GI, pulmonary. relevant finding as above Current medications reviewed that included: Nebulized bronchodilator, aspirin, Lipitor, Diflucan, Synthroid, Zestril, IV meropenem, Lopressor, sodium bicarb, On examination: VITAL SIGNS: 98, 84, 16, 108/54, 96% on room air GENERAL APPEARANCE: Sitting up on a chair, comfortable. HEENT: Normal external appearance of nose and ear. Oral cavity normal EYES: Pupils equal. Conjunctiva normal. NECK: JVD not raised. Mass not palpable. RESPIRATORY: Respiratory effort normal. Decreased breath sounds. CARDIOVASCULAR: First and second sounds normal. No edema. ABDOMEN: Soft. Liver and spleen not palpable. No tenderness. No mass palpable. PSYCHIATRY: Alert and oriented x3. Mood and affect normal. Extremities: Dressing of the left foot Chest wall: Dressing over incision site Investigations: White count 10.5, hemoglobin 8.2, INR 1.4, potassium 4.1 Assessment: -Severe mitral regurgitation recurrent episodes of flash pulmonary edema status post mitral valve replacement, biatrial modified Albert maze procedure and its exclusion of the left atrial appendix -Recurrent episodes of acute hypoxic respiratory failure requiring ventilator assistance -Paroxysmal atrial fibrillation with rapid ventricular rate currently in sinus rhythm -COPD exacerbation in a current smoker -Acute kidney injury likely ATN, secondary to contrast-induced nephropathy now resolved Acute shock liver from hypotension, now resolved Chronic kidney disease stage III with baseline creatinine 1.4 from nephrosclerosis -Chronic nicotine dependence and a cigarette smoker -Coronary artery disease with a prior history of stent to LAD -Hypothyroidism -Hyperlipidemia -Peripheral arterial disease -Depression and anxiety not otherwise specified -Bilateral internal carotid artery stenosis. 70% on the right side and 50-60% on the left side not for further intervention by Dr. Skaf -Bilateral pneumonia with organism showing Enterobacter cloacae, and Klebsiella oxytoca -Metabolic acidosis secondary to acute kidney injury -Left foot first and second toe wound and cellulitis -Depression not otherwise specified Plan: Encouraged the patient to ambulate. Patient will be switched over to by mouth antibiotics per Dr. Rico from ID. Patient to be anticoagulated.
--- NOTE | 2017-10-01 17:47 | P.PN ---
Progress Note - Text Progress Note Date: 10/01/17 Date of service-10/01/2017 Presenting complaint: Tired Interval history: This is a patient initially admitted with infection of the left big toe. Subsequently had recurrent flash pulmonary edema eventually leading to mitral valve replacement. Also had Maze procedure done. Also being treated for pneumonia. Patient has bilateral carotid artery stenosis-not felt to be critical for any further intervention by Dr. Gordon. Today-remains in sinus rhythm. Didn't walk with a walker about 20 steps. Eating well. Comfortable. Review of systems: Was done for constitutional, cardiovascular, GI, pulmonary. relevant finding as above Current medications reviewed that included: Nebulized bronchodilator, aspirin, Lipitor, Diflucan, Synthroid, Zestril, IV meropenem, Lopressor, sodium bicarb, Coumadin On examination: VITAL SIGNS: 98.6, 86, 16, 119/59 GENERAL APPEARANCE: Sitting up , comfortable. HEENT: Normal external appearance of nose and ear. Oral cavity normal EYES: Pupils equal. Conjunctiva normal. NECK: JVD not raised. Mass not palpable. RESPIRATORY: Respiratory effort normal. Decreased breath sounds. CARDIOVASCULAR: First and second sounds normal. No edema. ABDOMEN: Soft. Liver and spleen not palpable. No tenderness. No mass palpable. PSYCHIATRY: Alert and oriented x3. Mood and affect normal. Extremities: Dressing of the left foot Chest wall: Dressing over incision site Investigations: White count 9.7, hemoglobin 8, platelets were 88, potassium 4.4 INR 2.3 Assessment: -Severe mitral regurgitation recurrent episodes of flash pulmonary edema status post mitral valve replacement, biatrial modified Albert maze procedure and its exclusion of the left atrial appendix -Recurrent episodes of acute hypoxic respiratory failure requiring ventilator assistance -Paroxysmal atrial fibrillation with rapid ventricular rate currently in sinus rhythm -COPD exacerbation in a current smoker -Acute kidney injury likely ATN, secondary to contrast-induced nephropathy now resolved Acute shock liver from hypotension, now resolved Chronic kidney disease stage III with baseline creatinine 1.4 from nephrosclerosis -Chronic nicotine dependence and a cigarette smoker -Coronary artery disease with a prior history of stent to LAD -Hypothyroidism -Hyperlipidemia -Peripheral arterial disease -Depression and anxiety not otherwise specified -Bilateral internal carotid artery stenosis. 70% on the right side and 50-60% on the left side not for further intervention by Dr. Gordon -Bilateral pneumonia with organism showing Enterobacter cloacae, and Klebsiella oxytoca -Metabolic acidosis secondary to acute kidney injury -Left foot first and second toe wound and cellulitis -Depression not otherwise specified Plan: Cardiothoracic started the patient on Coumadin. Patient's INR is only 2.3. Follow INR carefully. Discussed with Dr. Rico from ID. Patient to be switched to oral ciprofloxacin for another 7 days. 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
[2017-10-01] MEDS ORDERED: WARFARIN 3 MG TAB PO ONE (18:00)
[2017-10-01 20:56] LABS: Glucose,Whole Blood 90 mg/dL (75-99)
[2017-10-01] MEDS: ATORVASTATIN 40 MG TAB PO SCH ×2 (21:05→21:13)
[2017-10-01] MEDS: CIPROFLOXACIN HCL 500 MG TAB PO SCH (21:05)
[2017-10-01] MEDS: SENNOSIDES-DOCUSATE SODIUM 1 EACH TAB PO SCH (21:07)
--- NOTE | 2017-10-01 21:15 | PN ---
PROGRESS NOTE DATE OF SERVICE: 10/01/2017. REASON FOR FOLLOW UP: Enterobacter pneumonia, left foot first and second toe wound cellulitis. INTERVAL HISTORY: The patient is afebrile. He is overall breathing comfortably on room air. Denies having any chest pain or shortness of breath. Very minimal cough. Not bringing up any sputum. No abdominal pain. No pain in left foot area. PHYSICAL EXAMINATION: Blood pressure 120/54 with a pulse of 74, temperature of 98.5. He is 99% on room air. General description is a middle aged male up in a chair in no distress. Respiratory system unlabored breathing. Decreased breath sounds in the bases. No wheeze. Heart S1, S2. Regular rate and rhythm. No tenderness. Left foot is dressed. No obvious drainage on the dressing. LABS: Hemoglobin 8, white count 9.7, BUN of 18, creatinine 0.98. DIAGNOSTIC IMPRESSION AND PLAN: 1. Patient with Enterobacter klebsiella pneumoniae. Antibiotic has been switched over to Cipro for about a week to finish a course of therapy. 2. Left first and second toe wound. Local wound care with Aquacel silver dressing. Plan of care discussed with the attending physician. MMODL / IJN: [id number] /
[2017-10-02 02:23] LABS: Glucose,Whole Blood 94 mg/dL (75-99)
[2017-10-02 05:56] LABS: Glucose,Whole Blood 87 mg/dL (75-99)
[2017-10-02] MEDS: INSULIN ASPART 100 UNIT/ML 1 ML 10 ML VIAL SQ SCH ×4 (06:00→19:53)
[2017-10-02] MEDS: PANTOPRAZOLE 40 MG TABLET PO SCH (06:01)
[2017-10-02] MEDS: LEVOTHYROXINE 25 MCG TAB PO SCH (06:01)
[2017-10-02 06:34] LABS: Anion Gap 11 mmol/L; Blood Urea Nitrogen 17 mg/dL (9-20); Calcium 9.3 mg/dL (8.4-10.2); Carbon Dioxide 25 mmol/L (22-30); Chloride 102 mmol/L (98-107); Glucose 78 mg/dL (74-99); INR 2.2 (<1.2); Potassium 4.5 mmol/L (3.5-5.1); Sodium 138 mmol/L (137-145)
[2017-10-02 06:42] LABS: Anisocytosis Slight; Basophils # (A) 0.1 k/uL (0-0.2); Basophils % (A) 1 %; Eosinophils # (A) 0.4 k/uL (0-0.7); Eosinophils % (A) 4 %; HCT 26.7 % (39.0-53.0); HGB 7.8 gm/dL (13.0-17.5); Hypochromasia Marked; Lymphocytes # (A) 2.2 k/uL (1.0-4.8); Lymphocytes % (A) 21 %; MCH 27.8 pg (25.0-35.0); MCHC 29.1 g/dL (31.0-37.0); MCV 95.7 fL (80.0-100.0); Macrocytosis Slight; Mean Platelet Volume 7.7; Monocytes # (A) 0.5 k/uL (0-1.0); Monocytes % (A) 5 %; Neutrophils # (A) 7.2 k/uL (1.3-7.7); Neutrophils % (A) 68 %; Platelet Count 546 k/uL (150-450); RBC 2.79 m/uL (4.30-5.90); RDW 17.4 % (11.5-15.5); WBC 10.6 k/uL (3.8-10.6)
[2017-10-02] MEDS: HYDROcodone/APAP 5-325MG 1 EACH TAB PO PRN ×3 (06:42→19:50)
[2017-10-02] MEDS: IPRATROPIUM-ALBUTEROL 3 ML NEB INHALATION SCH ×4 (07:05→19:09)
--- NOTE | 2017-10-02 07:14 | XR ---
EXAMINATION TYPE: XR chest 2V DATE OF EXAM: 10/02/2017 COMPARISON: 09/30/2017 HISTORY: Postoperative mitral valve replacement TECHNIQUE: Frontal and lateral views of the chest are obtained. FINDINGS: There is continued improved aeration of the lung bases although residual bibasilar opaciti es remain. No pulmonary vascular congestion is seen. Cardiac closure device, valvular replacement and mediastinal pacers are again noted. No pneumothorax. No focal consolidation. Cardiac silhouette is m ildly enlarged. Osseous structures are intact. IMPRESSION: Continued improved aeration of the lungs with minimal residual bibasilar airspace diseas e, likely subsegmental atelectasis.
--- NOTE | 2017-10-02 08:34 | P.PN ---
Subjective Progress Note Date: 10/02/17 Principal diagnosis: Rheumatic traumatic mitral valve disorder, severe mitral valve regurgitation. Mild aortic valve regurgitation. Mild to moderate left ventricular dysfunction , EF on CLARE preoperative 40%. Preoperative pneumonia with sputum culture positive for Enterobacter cloacae and Klebsiella oxytoca. Preoperative urinary tract infection with urine culture positive for Escherichia coli. Peripheral vascular disease with right to gangrene. Chronic obstructive pulmonary disease. Peripheral vascular disease. Moderate to severe right ICA stenosis. Previous history of chronic persistent atrial fibrillation on Eliquis for anticoagulation, depression, peripheral artery disease, chronic nicotine dependence, chronic kidney disease stage III, hypertension, coronary artery disease with previous stent placement, GERD, and hypothyroidism. Status post cardiac catheterization on 09/25/2017 demonstrating a patent LAD stent and no significant coronary stenosis. Status post neck CTA demonstrating severe right internal carotid artery estimated at greater than 70%, moderate to severe narrowing of the proximal left internal carotid artery between 50-69%. Status post angiogram, no stent placement to the carotid arteries, right carotid approximately 70% stenosis, left carotid approximately 50% stenosis per angiogram. Status post cardiac arrest, reintubation for flash pulmonary edema. POD #7 chordal preserving mitral valve replacement using a 27 mm pericardial magna ease. Bi-atrial full Albert maze procedure using radiofrequency and cryoablation. Exclusion of the left atrial appendage using a 40 mm AtriClip. Intraoperative transesophageal echocardiogram and epi-aortic scanning. Patient's currently sitting up in bed in no acute distress. Denies pain, shortness of breath. States he feels ready to go home today He has ambulated to and from the bathroom, as well as ambulating a few feet in the hallway with therapy. Objective - Vital Signs Vital signs: Vital Signs Temp 98.9 F 10/02/17 04:00 Pulse 80 10/02/17 07:29 Resp 18 10/02/17 04:00 BP 116/67 10/02/17 04:00 Pulse Ox 100 10/02/17 04:00 Intake & Output 10/01/17 10/02/17 10/02/17 18:59 06:59 18:59 Intake Total 600 360 Balance 600 360 Weight 77.5 kg Intake: Oral 600 360 Other: Voiding Method Toilet Toilet Urinal Urinal ABP, PAP, CO, CI - Last Documented Arterial Blood Pressure 123/103 Pulmonary Artery Pressure 49/27 Cardiac Output 6.2 Cardiac Index 3.3 - Constitutional General appearance: Present: cooperative, no acute distress - Respiratory Details: Lungs sounds diminished bilaterally. Respirations even, nonlabored. Currently on room air with oxygen saturation 100%. Able to achieve 1250 mL on his incentive spirometry. Effective cough. - Cardiovascular Details: S1, S2 present. Regular rate and rhythm, sinus rhythm on telemetry. Sternum stable. A/V epicardial pacemaker wires present, grounded. Palpable peripheral pulses bilaterally. No edema present. No calf pain or tenderness noted. Heart hugger in place patient demonstrating appropriate use. Antiembolism stockings, SCDs present. - Gastrointestinal Gastrointestinal Comment(s): Abdomen soft, nontender, nondistended. Active bowel sounds 4 quadrants. Tolerating diet. Positive bowel movement. - Genitourinary Genitourinary Comment(s): Continues to void clear, yellow urine. - Integumentary Integumentary Comment(s): Skin is warm and dry. Sternal incision well approximated and covered with dry intact dressing. Left great toe and second toe dressing clean dry and intact. Dressing noted to the coccyx and left scapular area. - Neurologic Neurologic: Present: CNII-XII intact - Musculoskeletal Musculoskeletal: Present: gait normal, strength equal bilaterally - Psychiatric Psychiatric: Present: A&O x's 3, appropriate affect, intact judgment & insight - Allied health notes Allied health notes reviewed: nursing - Labs CBC & Chem 7: 10/02/17 05:34 10/02/17 05:34 Labs: Abnormal Lab Results - Last 24 Hours (Table) 10/01/17 10/01/17 10/02/17 Range/Units 11:23 16:56 05:34 RBC (4.30-5.90) m/uL Hgb (13.0-17.5) gm/dL Hct (39.0-53.0) % MCHC (31.0-37.0) g/dL RDW (11.5-15.5) % Plt Count (150-450) k/uL PT 20.0 H (9.0-12.0) sec INR 2.2 H (<1.2) POC Glucose (mg/dL) 129 H 110 H (75-99) mg/dL 10/02/17 Range/Units 05:34 RBC 2.79 L (4.30-5.90) m/uL Hgb 7.8 L (13.0-17.5) gm/dL Hct 26.7 L (39.0-53.0) % MCHC 29.1 L (31.0-37.0) g/dL RDW 17.4 H (11.5-15.5) % Plt Count 546 H (150-450) k/uL PT (9.0-12.0) sec INR (<1.2) POC Glucose (mg/dL) (75-99) mg/dL - Imaging and Cardiology Chest x-ray: report reviewed, image reviewed Assessment and Plan (1) Acute and chronic respiratory failure with hypoxia Current Visit: Yes Status: Acute Code(s): J96.21 - ACUTE AND CHRONIC RESPIRATORY FAILURE WITH HYPOXIA SNOMED Code(s): 46546347 (2) COPD (chronic obstructive pulmonary disease) Current Visit: Yes Status: Chronic Code(s): J44.9 - CHRONIC OBSTRUCTIVE PULMONARY DISEASE, UNSPECIFIED SNOMED Code(s): 44328960 (3) Chronic kidney disease, stage III (moderate) Current Visit: Yes Status: Chronic Code(s): N18.3 - CHRONIC KIDNEY DISEASE, STAGE 3 (MODERATE) SNOMED Code(s): 609608202 (4) Gangrenous toe Current Visit: Yes Status: Chronic Code(s): I96 - GANGRENE, NOT ELSEWHERE CLASSIFIED SNOMED Code(s): 601070617 (5) History of bradycardia Current Visit: No Status: Resolved Code(s): Z86.79 - PERSONAL HISTORY OF OTHER DISEASES OF THE CIRCULATORY SYSTEM SNOMED Code(s): 702108104083799 (6) History of coronary artery disease Current Visit: No Status: Resolved Code(s): Z86.79 - PERSONAL HISTORY OF OTHER DISEASES OF THE CIRCULATORY SYSTEM SNOMED Code(s): 263067832 (7) History of depression Current Visit: Yes Status: Chronic Code(s): Z86.59 - PERSONAL HISTORY OF OTHER MENTAL AND BEHAVIORAL DISORDERS SNOMED Code(s): 149786294 (8) Hypertension Current Visit: Yes Status: Chronic Code(s): I10 - ESSENTIAL (PRIMARY) HYPERTENSION SNOMED Code(s): 42124529 (9) Hypothyroidism Current Visit: Yes Status: Chronic Code(s): E03.9 - HYPOTHYROIDISM, UNSPECIFIED SNOMED Code(s): 17892735 (10) Peripheral vascular disease Current Visit: Yes Status: Chronic Code(s): I73.9 - PERIPHERAL VASCULAR DISEASE, UNSPECIFIED SNOMED Code(s): 634741696 (11) New onset a-fib Current Visit: Yes Status: Acute Code(s): I48.91 - UNSPECIFIED ATRIAL FIBRILLATION SNOMED Code(s): 68680712 (12) Carotid artery stenosis Current Visit: Yes Status: Chronic Code(s): I65.29 - OCCLUSION AND STENOSIS OF UNSPECIFIED CAROTID ARTERY SNOMED Code(s): 14262224 (13) Mitral valve regurgitation Current Visit: Yes Status: Chronic Code(s): I34.0 - NONRHEUMATIC MITRAL ( VALVE) INSUFFICIENCY SNOMED Code(s): 54610524 Plan: 1. Continue low-dose aspirin, statin, Fausto, beta skylar. 2. Encourage incentive spirometry use 10 times every hour. Encourage continued smoking cessation. 3. Continue IV Lasix per nephrology recommendations. 4. Will continue to dose Coumadin daily for anticoagulation based on PT/INR. Upon discharge Coumadin dosing will be managed by cardiology associates. 5. Bronchodilators, antibiotics per pulmonology. 6. Avoid nephrotoxic agents. 7. GI/DVT prophylaxis. 8. Blood sugar management per primary care service. 9. Increase activity, ambulate as tolerated. PT/OT/cardiac rehab following. 10. Will monitor daily labs and x-rays. 11. More recommendations to follow. Dr. Thapa consulted for rehab placement. Patient will need rehab at discharge as he lives alone. Time with Patient: Greater than 30
[2017-10-02] MEDS: SODIUM BICARBONATE TAB 650 MG TAB PO SCH ×2 (09:00→19:50)
[2017-10-02] MEDS: CIPROFLOXACIN HCL 500 MG TAB PO SCH ×2 (09:00→19:50)
[2017-10-02] MEDS: ASPIRIN 81 MG PO SCH (09:00)
[2017-10-02] MEDS: FUROSEMIDE 10 MG/ML 4 ML VIAL IV SCH (09:00)
[2017-10-02] MEDS: METOPROLOL TARTRATE 12.5 MG TAB PO SCH ×2 (09:00→19:50)
[2017-10-02] MEDS: NICOTINE 21MG/24HR PATCH TRANSDERM SCH (09:00)
[2017-10-02] MEDS: FLUoxetine HCL 20 MG CAP PO SCH (09:01)
[2017-10-02] MEDS: SODIUM FERRIC GLUCONAT-SUCROSE 125 MG in SODIUM CHLORIDE 0.9% 100 ML IVPB SCH (09:03)
--- NOTE | 2017-10-02 09:10 | P.PN ---
Subjective Patient is seen in follow-up for acute kidney injury. Renal function is improved, cr is stable. He is status post mitral valve replacement on September 25. He is awake and alert and currently sitting up in bed. Currently maintained on antibiotics for E. coli UTI as well as Enterobacter and Klebsiella noted on sputum culture. He is nonoliguric. Blood pressure is well controlled. He was started on low-dose lisinopril on September 29. Oral intake is good. No active complaints at this time. Eager to go home. Vital signs are stable. General: The patient appeared well nourished and normally developed. Currently intubated. HEENT: Head exam is unremarkable. Neck is without jugular venous distension. LUNGS: Lungs are clear to auscultation and percussion. Breath sounds decreased. HEART: Rate and Rhythm are regular. First and second heart sounds normal. No murmurs, rubs or gallops. ABDOMEN: Abdominal exam reveals normal bowel sounds. Non-tender and non- distended. No evidence of peritonitis. EXTREMITITES: No clubbing, cyanosis, or edema. Objective - Vital Signs Vital signs: Vital Signs Temp 98.9 F 10/02/17 04:00 Pulse 80 10/02/17 07:29 Resp 18 10/02/17 04:00 BP 116/67 10/02/17 04:00 Pulse Ox 100 10/02/17 04:00 Intake & Output 10/01/17 10/02/17 10/02/17 18:59 06:59 18:59 Intake Total 600 360 Balance 600 360 Weight 77.5 kg Intake: Oral 600 360 Other: Voiding Method Toilet Toilet Urinal Urinal ABP, PAP, CO, CI - Last Documented Arterial Blood Pressure 123/103 Pulmonary Artery Pressure 49/27 Cardiac Output 6.2 Cardiac Index 3.3 - Labs CBC & Chem 7: 10/02/17 05:34 10/02/17 05:34 Labs: Abnormal Lab Results - Last 24 Hours (Table) 10/01/17 10/01/17 10/02/17 Range/Units 11:23 16:56 05:34 RBC (4.30-5.90) m/uL Hgb (13.0-17.5) gm/dL Hct (39.0-53.0) % MCHC (31.0-37.0) g/dL RDW (11.5-15.5) % Plt Count (150-450) k/uL PT 20.0 H (9.0-12.0) sec INR 2.2 H (<1.2) POC Glucose (mg/dL) 129 H 110 H (75-99) mg/dL 10/02/17 Range/Units 05:34 RBC 2.79 L (4.30-5.90) m/uL Hgb 7.8 L (13.0-17.5) gm/dL Hct 26.7 L (39.0-53.0) % MCHC 29.1 L (31.0-37.0) g/dL RDW 17.4 H (11.5-15.5) % Plt Count 546 H (150-450) k/uL PT (9.0-12.0) sec INR (<1.2) POC Glucose (mg/dL) (75-99) mg/dL Assessment and Plan Plan: Assessment: #1. Nonoliguric acute kidney injury secondary to ATN secondary to contrast- induced nephropathy and hemodynamic instability. Resolved. #2. Mild hyperkalemia secondary to acute kidney injury and lactated Ringer's. Improved. #3. Chronic kidney disease stage III with baseline creatinine in the range of 1.2-1.4 secondary to nephrosclerosis. #4. Mitral valve regurgitation status post mitral valve replacement on 2017. #5. Pneumonia with sputum culture positive for Enterobacter and Klebsiella. #6. UTI with urine culture positive for E. coli. #7. Systolic CHF with ejection fraction of 40%. #8. Atrial fibrillation. Currently rate controlled. #9. Anemia status post blood transfusion on September 25. Hemoglobin 8.2 this morning. Iron deficiency noted. Status post 3 doses of IV iron. #10. Hypertension with chronic kidney disease. Controlled. #11. Metabolic acidosis secondary to acute kidney injury. Improved. Plan: Continue Lasix 40 mg once daily - can transition to oral today. Maintain sodium bicarbonate. Avoid nephrotoxic agents and hypotensive episodes. Continue to monitor renal function and urine output. Antibiotics per infectious disease recommendations. Repeat electrolytes in the morning. Anticipated discharge to rehab soon.
--- NOTE | 2017-10-02 10:41 | ECHOF ---
Referral Reason:assess LV fn MEASUREMENTS -------- HEIGHT: 180.3 cm WEIGHT: 77.1 kg BP: 116/67 AV maxP.93 mmHg AV meanP.58 mmHg FINDINGS -------- Sinus rhythm. Limited Study TDS due to CABG and Bandages. The left ventricular size is normal. Overall left ventricular systolic function is low-normal with, an EF between 50 - 55 %. There is paradoxical/dysynergic septal motion consistent with post-operat tammie status. There is moderate aortic regurgitation. There is a small, generalized pericardial effusion present. CONCLUSIONS -------- 1. Sinus rhythm. 2. Limited Study 3. TDS due to CABG and Bandages. 4. The left ventricular size is normal. 5. Overall left ventricular systolic function is low-normal with, an EF between 50 - 55 %. 6. There is paradoxical/dysynergic septal motion consistent with post-operative status. 7. There is moderate aortic regurgitation. 8. There is a small, generalized pericardial effusion present. CUSTOMER GREETER: Kelsey Whitten RDCS
[2017-10-02 11:35] LABS: Glucose,Whole Blood 87 mg/dL (75-99)
[2017-10-02] MEDS: LISINOPRIL 2.5 MG TAB PO SCH (12:10)
--- NOTE | 2017-10-02 12:58 | P.PN ---
Subjective Progress Note Date: 10/02/17 Principal diagnosis: Respiratory failure Progress note dated 09/11/2017 This is a 62-year-old black male who was admitted on September 06. He apparently was initially admitted with a diagnosis of sepsis with a gangrenous toe. He started in the ER went to the general medical floor and 18 was called because of respiratory failure and acidosis. He that reason he was intubated on September 06 and transferred to the ICU. He was extubated initially on September 08 and then reintubated again on September 11. This was today at 4:00 in the morning. The patient's x-ray shows diffuse bilateral infiltrates worse on the right than on the left side. His current ventilator settings include the assist control mode, rate of 12, an FiO2 of 70%, tidal Byam of 500, PEEP of 10. Arterial blood gases show a PaO2 of 88 a PaCO2 of 37 and a pH of 7.36. His current IVs include a saline IV at 20 mL an hour, heparin via weightbase protocol for atrial fibrillation propofol at 35 mics per kilogram per minute and Cordarone at 0.5 mg/m. The patient's x-rays labs medications are all reviewed. Microbiology is all negative. I asked the nurse to resume his tube feeds. Progress note dated September 12 2017 62-year-old black male who was admitted on September 06. He apparently was initially admitted with a diagnosis of sepsis with a gr gangrenous toe. He started in the ER want to the general medical floor and a rapid response was called because of respiratory failure and severe acidosis. He was intubated on September 06 and transferred to the intensive care unit. He was initially extubated on September 08 and then reintubated again on September 11. That was at 4 :00 in the morning. My partner was called. His chest x-ray yesterday showed diffuse bilateral pulmonary infiltrates worse on the right than on the left. We made some changes yesterday. The patient's chest x-ray today is much improved suggesting that he has mostly pulmonary edema/heart failure. In fact, the echocardiogram did reveal evidence of severe mitral regurgitation. The patient clinically is much better today. We are going to have the vascular service surgeon see him about the great toe. Likely, thoracic surgery would not want to do anything if there was active infection. The patient's FiO2 was dropped from 50-40%. In addition, we'll be able to make some significant PEEP changes today.His current vent settings are the assist control mode rate of 22 tidal volume 400 FiO2 40% and PEEP of 13. The PEEP can probably be dropped down from 13-10 later today. Arterial blood gases show a PaO2 of 177 a PaCO2 of 41 and a pH of 7.35. His is consistent with a very mild metabolic acidosis. The patient's on heparin via weightbase protocol, propofol at 45 mics per kilogram per minute dopamine which is currently off started earlier this morning for bradycardia a saline IV at 20 mL an hour and vital high protein at 56 with a goal of 56 mL per hour. Progress note dated 09/13/2017 62-year-old black male who was admitted on September 06. He was initially admitted with a diagnosis of sepsis with a gangrenous toe. He was initially admitted from the ER to the general medical floor and then subsequent to that a rapid response was called because of respiratory failure and severe metabolic acidosis. He was intubated later on September 06 and was transferred to the ICU. He was initially extubated on and then reintubated again early in the morning of September 11 for respiratory failure. His chest x-ray showing waxing waning diffuse bilateral pulmonary infiltrates. These infiltrates, likely represent heart failure, but could also relate to pneumonia/ acute lung injury. The patient's echocardiogram did reveal severe mitral regurgitation. Cardiology is looking into that. Also, we have vascular surgeon looking at the gangrenous toe. The patient's FiO2 was dropped from 50 to 40%. In addition, the PEEP was dropped recently from 13-10 8. Arterial blood gases are reviewed. He is on the assist control mode with a rate of 22. Tidal Byam is 400. Other than that, the patient seems to be doing about the same. I did speak to the infectious disease life consultant as well as a cardiology consult about this patient. Progress note dated 09/14/2017 62-year-old black male who was admitted back on September 06. He was initially admitted with a diagnosis of sepsis and a gangrenous toe. Vascular surgery saw the patient yesterday and determined that he had dry gangrene and no debridement or amputation was necessary. The patient was initially admitted from the emergency room to the general medical floor and subsequent to that a rapid response team was called because of respiratory failure and severe metabolic acidosis. He was moved he was intubated later on September 06 and was transferred to the ICU. The patient was then initially extubated on September 08 and the reintubated again early in the morning on September for respiratory failure. His pattern has been that of flash pulmonary edema although, acute lung injury/nosocomial pneumonia, could not be excluded. Mostly though, we believe it relates to heart failure from a case of severe mitral regurgitation. The patient underwent transesophageal echocardiogram this morning and was determined to have severe mitral regurgitation and thought to have an ejection fraction of 25%. He is scheduled for heart catheterization on September 15 and the patient will be seen by cardiothoracic surgery. Currently he is on IV heparin via weightbase protocol propofol at 45 mics per kilogram per minute, Cordarone at 0.5 mg/m Cardizem drip at 10 mg an hour saline IV at 20 mL an hour and vital high protein at 56 mL an hour with a goal of 56. The patient's vent settings include the assist control mode rate of 22 tidal volume of 400 FiO2 40% and PEEP of 5. Blood gases show a PaO2 of 103 a PaCO2 of 36 and a pH 7.45. This is consistent with mild respiratory alkalosis. The patient probably could be extubated. But because she is having a heart cath tomorrow, my inclination is to keep monitoring ventilator until then. Progress note dated 09/15/2017 62-year-old black male admitted back on September 06. The patient was initially admitted with a diagnosis of sepsis and a gangrenous toe. Vascular surgery seems to think that the toe represents dry gangrene and no additional debridement or amputation is necessary. The patient initially presented to the emergency room with an into the general medical floor. A rapid response was called. The patient developed respiratory failure and severe metabolic acidosis. He was moved to the ICU and intubated on September 06. He was extubated initially on in the reintubated early in the morning on September 11 for respiratory failure. His pattern has been that of a flash pulmonary edema. The patient also may be having a component of acute lung injury/nosocomial pneumonia. Anyway, the pulmonary edema is likely related mostly to card and myopathy as well as severe mitral regurgitation. The patient had a transesophageal echocardiogram yesterday and is going for cardiac catheterization today. The patient was maintained on mechanical ventilator because he was going for catheterization today. Hopefully, we can get him extubated later today. This depends on what is done. Currently, the patient's on the ventilator with the assist control mode rate of 22 breathing 24 times a minute, tidal volume of 400 FiO2 40% PEEP of 5. Arterial blood gases show a PaO2 of 98 a PaCO2 of 35 and a pH of 7.41. The patient's on a saline IV at KVO heparin is been turned off the Cardizem drip is running at 10 mg an hour and tube feeds are on hold. The patient's chest x-ray reveals some mild fluid overload. All in all though, the patient's much more stable. I have been turned to the family all along the fact, the family member is one of my primary patient to my office. This is the patient's nephew. Progress note dated 09/16/2017 62-year-old black male status post respiratory failure. The patient was extubated this morning. The patient had excellent weaning parameters and blood gases. We attempted yesterday to extubate the patient but he really wasn't ready for extubation. We did extubate him to BiPAP. He is on BiPAP at 12 and 5 and 40%. The patient was initially admitted back on September 06 with an episode of sepsis and a gangrenous toe. Because of worsening respiratory status , on the general medical floor, a rapid response team was called. The patient' s respiratory failure led him to be intubated and transferred to the ICU on September 06. He was initially extubated on seb second and reintubated on the morning of September 11. He is finally extubated today on September 16. The patient had a transesophageal echocardiogram which suggested poor cardiac function with an ejection fraction to be estimated at 20-25% and severe mitral regurgitation. The patient subsequently had a cardiac cardiac catheterization which revealed no evidence of coronary artery disease and again severe mitral regurgitation. The patient is apparently going to have a mitral valve replacement/repair done midweek by one of the cardiothoracic surgeons. Currently, the patient's on BiPAP at 12 and 5 and 40%. His chest x-ray shows fluid overload so he'll get some additional Lasix. His IV is a saline IV at KVO a Cardizem drip at 5 mg an hour Cordarone at 0.5 mL/m heparin via weightbase protocol and his tube feeds are currently off. He seemed pretty comfortable and there. Progress note dated 09/17/2017 62-year-old black male status post respiratory failure. He was extubated a couple days ago. Doing relatively well. The patient will likely have mitral valve repair/replacement midweek. The patient currently is just on some nasal O2. The patient had an uneventful night. The patient has no complaints today. The patient was initially admitted back on September 06 with an episode of respiratory failure. I rapid response team was called and the patient's respiratory failure led to intubation and transferred to the intensive care unit on September 06. He was initially extubated on September 08 and reintubated on the morning of . He was finally extubated on September 16. He had a transesophageal echocardiogram which showed severe mitral regurgitation. He sought to have an ejection fraction of about 20-25%. According to cardiac catheterization revealed no significant coronary disease. Again, planning to have mitral valve repair/replacement done midweek. Other than that, the patient is doing reasonably well. Progress note dated September 18, 2017 62-year-old white male status post respiratory failure. The patient has developed on and off flash pulmonary edema primarily from cardiac disease i.e. I severe mitral regurgitation. The patient was extubated a couple days ago by myself. The patient remains here in the ICU. The plan is for him to have either mitral valve repair or replacement on Monday. I the patient's chest x -ray shows worsening pulmonary edema today. He did spend some time on the BiPAP last night. Currently he is on O2 at 5 L by nasal cannula. He is on heparin via weightbase protocol amiodarone at 0.5 mg/m and a Cardizem drip at 10 mg an hour. Is getting also a saline IV and KVO. The patient feels well. Does not appear to have any respiratory distress distress or difficulty. Not coughing or wheezing. No chest pain or chest discomfort. The patient did have a transesophageal echocardiogram which showed severe mitral regurgitation. Also , his ejection fraction was estimated between 20 and 25 %. Finally, a cardiac catheterization revealed no evidence of coronary artery disease. Progress note dated 09/19/2017 62-year-old black male with a history of respiratory failure secondary to severe mitral regurgitation. The patient initially presented with respiratory distress. The patient was found to have significant valvular heart disease in the form of mitral regurgitation. He was also found to have significant cardiomyopathy. The patient was activated a couple days ago. The patient had a transesophageal echocardiogram and cardiac catheterization. Coronaries are clean. Initially the plan was to do surgery this week. It may be pushed off. The patient has a greater than 70% occlusion of the right internal carotid artery and a 50-69% occlusion of the left internal carotid artery. The patient' s currently on heparin via weightbase protocol oxygen at 2 L Cardizem drip at 10 mg an hour amiodarone a 0.5 mg/m saline IV at 20 mL an hour. The patient's overall situation has improved the last couple of days although the chest x-ray does still show some mild fluid overload. The patient was initially admitted on September 06 with an episode of sepsis and gangrenous toe. Because of worsening respiratory status, the patient was transferred to the general medical floor to the ICU where he was intubated. He was initially extubated on September 08 and reintubated on the morning of September 11. He was finally extubated on September 16 has remained off the ventilator. Progress note dated 10/02/2017 62-year-old white male with a history of respiratory failure secondary to severe mitral regurgitation. The patient did have a mitral valve replacement. He is doing relatively well now. Resting comfortably. The patient's on the sixth floor. In addition, he has a history of atrial fibrillation with RVR CAD with previous stent placement history of COPD essential hypertension depression peripheral vascular occlusive disease hypothyroidism hypertensive nephrosclerosis acute cellulitis and dry gangrene of the left big toe bilateral carotid disease and a positive sputum and urine cultures for Enterobacter Klebsiella and E. coli. Not quite sure when the patient will be discharged. The patient otherwise is doing relatively well. The patient still on nasal O2 at couple basic IV. Denies any shortness of breath chest pain chest discomfort. Not coughing up any phlegm or blood. Objective - Vital Signs Vital signs: Vital Signs Temp 98.5 F 10/02/17 11:45 Pulse 65 10/02/17 11:45 Resp 20 10/02/17 11:45 BP 129/62 10/02/17 11:45 Pulse Ox 99 10/02/17 11:45 Intake & Output 10/01/17 10/02/17 10/02/17 18:59 06:59 18:59 Intake Total 600 360 Balance 600 360 Weight 77.5 kg 77.5 kg Intake: Oral 600 360 Other: Voiding Method Toilet Toilet Toilet Urinal Urinal Urinal ABP, PAP, CO, CI - Last Documented Arterial Blood Pressure 123/103 Pulmonary Artery Pressure 49/27 Cardiac Output 6.2 Cardiac Index 3.3 - Exam No acute distress, currently on nasal O2.. HEENT examination is grossly unremarkable. Mucous membranes are moist. No oral lesions. Neck supple. Full range of motion. No adenopathy thyromegaly or neck vein distention. Cardiovascular examination reveals irregular rhythm rate. S1-S2 normal. No S3 or S4. Soft murmur is heard now the patient's extubated. Heart rate 120 Lungs reveal coarse bilateral breath sounds. Breath sounds are diminished. Mild bibasilar crackles. Breath sounds are diminished more on the right side than the left. Abdomen soft bowel sounds are heard. No masses or tenderness. Extremities are intact. No cyanosis clubbing or edema. Skin is without rash or lesion. Neurologic examination is brief but nonfocal - Labs CBC & Chem 7: 10/02/17 05:34 10/02/17 05:34 Labs: Abnormal Lab Results - Last 24 Hours (Table) 10/01/17 10/02/17 10/02/17 Range/Units 16:56 05:34 05:34 RBC 2.79 L (4.30-5.90) m/uL Hgb 7.8 L (13.0-17.5) gm/dL Hct 26.7 L (39.0-53.0) % MCHC 29.1 L (31.0-37.0) g/dL RDW 17.4 H (11.5-15.5) % Plt Count 546 H (150-450) k/uL PT 20.0 H (9.0-12.0) sec INR 2.2 H (<1.2) POC Glucose (mg/dL) 110 H (75-99) mg/dL Assessment and Plan Assessment: Assessment Status post mitral valve replacement for severe mitral regurgitation. Acute hypoxemic respiratory failure secondary to sepsis/septic shock with a gangrenous toe and underlying cellulitis. Possible bilateral nosocomial pneumonia vs. acute lung injury Atrial fibrillation/RVR Congestive heart failure, secondary to severe mitral regurgitation and cardiomyopathy with an ejection fraction of 25% Intermittent sinus bradycardia History of CAD with previous stent placement History of COPD History of essential hypertension History of depression Peripheral vascular occlusive disease Hypothyroidism Hypertensive nephrosclerosis with chronic kidney disease, stage III Acute cellulitis and dry gangrene of the left big toe, status post debridement Bilateral carotid disease, worse on the right with a greater than 70% obstruction Plan: Plan dated 09/11/2017 The patient developed acute respiratory failure early this morning. My partner was called. He was reintubated. I'll make a slight change in the vent settings. We'll go with a low titer volume strategy. We'll drop a tidal volume from 500-400. We'll bump the rate from 16-24. PEEP will be increased from 10-13. I will review the labs x-rays a medications. We'll resume tube feeds. Prognosis is poor. Additional recommendations and suggestions are forthcoming. Plan dated 09/12/2017 Vascular surgery will come in to see the patient today.Labs x-rays a medications are all reviewed. The dopamine is now off. It was started for bradycardia. The patient's FiO2 was dropped from 50-40%. Likely will be able to make some PEEP changes as well. Chest x-ray is dramatically improved. We' ll continue to follow closely. Prognosis is guarded. The mitral valve issue is certainly likely the cause of the patient's flash pulmonary edema. He may even have mitral valve endocarditis. Plan dated 09/13/2017 The patient was seen by vascular surgery this morning. The surgeon feels like this is a dry gangrene and nothing active going on and no additional debridement or amputation is required. We'll let the infectious disease doctor know. The PEEP was dropped from 10 to 8. Gases are reviewed. His P/F ratio is 235 indicating mild ARDS. The chest x-ray is improved. Most of his issues in the lungs related to congestive heart failure because of the severe mitral regurgitation. We'll talk to cardiology about a CLARE as well as thoracic surgery about possible mitral valve repair/replacement. Plan dated 09/14/2017 The patient had his transesophageal echocardiogram today. His ejection fraction was estimated at 25% and he has severe mitral regurgitation. The patient scheduled for heart catheterization tomorrow. The patient will be maintained on the ventilator since then. Blood gases are reasonable. Chest x- rays improved although he did still has a pattern of some mild fluid overload. The patient remains on IV heparin via weightbase protocol propofol Cordarone and Cardizem and his tube feeds. Overall prognosis is poor. We'll continue to watch patient very closely. Additional recommendations and suggestions are forthcoming. Plan dated 09/15/2017 The patient is scheduled for a cardiac catheterization this morning. He had a transesophageal echocardiogram yesterday. His estimated ejection fraction was only 20-25% and he has Severe mitral regurgitation. The patient is maintained on mechanical ventilator. Labs x-rays a medications are all reviewed. No additional recommendations are made. Prognosis is guarded. We'll continue to follow closely. Plan dated 09/16/2017 The patient's of doing reasonably well. He was extubated this morning. His weaning parameters blood gases and so forth were all excellent. He passes cuff leak test. He maintains on Cardizem drip at 5 mg an hour amiodarone 0.5 mg/m and heparin via weightbase protocol. 2 feeds off. Ready to give him some additional Lasix. We'll watch him very closely. The plan is to do mitral valve repair/replacement midweek. Plan dated 09/17/2017 The patient's labs medications and x-rays are all reviewed. The patient's x- ray has significantly improved. He did receive some diuretics yesterday. The patient will need his carotid evaluated. He'll be gently hydrated for that. The patient still having atrial fibrillation. Currently on nasal O2. The patient looks much better today than he has since had been seeing him in the last the plan is mitral valve repair/replacement midweek. No additional recommendations are made. Plan dated 07/18/2018 The patient's doing well today. Chest x-ray shows a bit worsening of his underlying heart failure. The patient did spend a bit of time on BiPAP last night. Currently on nasal O2 at 5 L. Also receiving his IV heparin amiodarone and Cardizem drip for his irregular heart rate. We'll continue to follow closely. Prognosis is guarded. Anticipated mitral valve appeared/replacement on Monday. Plan dated 09/19/2017 The patient's doing reasonably well. His only on 2 L nasal cannula. Did not require BiPAP last night. I did speak to the cardiothoracic surgeon this morning. I think his feeling is to go ahead and have the patient's rhythm and rate controlled bit better. The patient remains on IV Cardizem and amiodarone. The surgeon feels that the right carotid disease should be dealt with. The patient's respiratory status has remained stable the last couple of days. He remains on IV heparin. Cardiology and cardiothoracic surgery need to get together formulate a plan. Labs x-rays a medications are all reviewed. Time spent with patient 36 minutes Plan dated 10/02/2017 The patient seemed be doing relatively well. The patient just on some nasal O2 and a basic IV. Denies any shortness breath chest pain chest discomfort phlegm production. No fever or chills. The patient has no particular complaints today. Hoping to be discharged soon. Rehab facility. We'll continue to follow. Time with Patient: Less than 30
--- NOTE | 2017-10-02 15:19 | P.PN ---
Subjective Progress Note Date: 10/02/17 Principal diagnosis: Status post mitral valve replacement This 62-year-old gentleman who is status post mitral valve replacement , he does have known history of coronary artery disease with prior LAD stenting , hypertension, hyperlipidemia. He was seen and examined this morning, up ambulating in the hallway without any difficulty. Eager to be discharged. Remaining in normal sinus rhythm. White blood cell count 10.6, hemoglobin 7.8, platelet count 546. INR 2.2, sodium 138, potassium 4.5, BUN 17, creatinine 1.0. Mag level 2.0. Objective - Vital Signs Vital signs: Vital Signs Temp 98.5 F 10/02/17 11:45 Pulse 65 10/02/17 11:45 Resp 20 10/02/17 11:45 BP 129/62 10/02/17 11:45 Pulse Ox 99 10/02/17 11:45 Intake & Output 10/01/17 10/02/17 10/02/17 18:59 06:59 18:59 Intake Total 600 700 Balance 600 700 Weight 77.5 kg 77.5 kg Intake: Intake, IV Titration 100 Amount Sodium Ferric Gluconat- 100 Sucrose 125 mg In Sodium Chloride 0.9% 100 ml @ 100 mls/hr IVPB DAILY [facility] Rx#:[id number] Oral 600 600 Other: Voiding Method Toilet Toilet Toilet Urinal Urinal Urinal ABP, PAP, CO, CI - Last Documented Arterial Blood Pressure 123/103 Pulmonary Artery Pressure 49/27 Cardiac Output 6.2 Cardiac Index 3.3 - Exam PHYSICAL EXAMINATION: HEENT: Head is atraumatic, normocephalic. Pupils equal, round. Neck is supple. There is no elevated jugular venous pressure. HEART EXAMINATION: Heart S1, S2 normal. No murmur or gallop heard. CHEST EXAMINATION: Lungs reveal diminished air entry to bilateral bases. ABDOMEN: Soft, nontender. Bowel sounds are heard. No organomegaly noted. EXTREMITIES: 2+ peripheral pulses with no evidence of peripheral edema and no calf tenderness noted. Bilateral Venodyne's and SCDs in place. NEUROLOGIC patient is awake, alert and oriented -3. . - Labs CBC & Chem 7: 10/02/17 05:34 10/02/17 05:34 Labs: Abnormal Lab Results - Last 24 Hours (Table) 10/01/17 10/02/1718 Range/Units 16:56 05:34 05:34 RBC 2.79 L (4.30-5.90) m/uL Hgb 7.8 L (13.0-17.5) gm/dL Hct 26.7 L (39.0-53.0) % MCHC 29.1 L (31.0-37.0) g/dL RDW 17.4 H (11.5-15.5) % Plt Count 546 H (150-450) k/uL PT 20.0 H (9.0-12.0) sec INR 2.2 H (<1.2) POC Glucose (mg/dL) 110 H (75-99) mg/dL Assessment and Plan Plan: Assessment and plan #1 status post mitral valve replacement #2 paroxysmal atrial fibrillation #3 COPD #4 chronic kidney disease stage III #5 known history of coronary artery disease with prior LAD stenting #6 history of depression #7 hypertension #8 hypothyroidism Plan From cardiology's perspective, we'll recommend to continue the patient on his current medications. He has been encouraged regarding the continued use of his incentive spirometry. DNP note has been reviewed, I agree with a documented findings and plan of care. Patient was seen and examined.
[2017-10-02] MEDS: FLUCONAZOLE 100 MG TAB PO SCH (15:48)
[2017-10-02 16:36] LABS: Glucose,Whole Blood 97 mg/dL (75-99)
--- NOTE | 2017-10-02 16:45 | P.PN ---
Progress Note - Text Progress Note Date: 10/02/17 Presenting complaint: Tired Interval history: This is a patient initially admitted with infection of the left big toe. Subsequently had recurrent flash pulmonary edema eventually leading to mitral valve replacement. Also had Maze procedure done. Also being treated for pneumonia. Patient has bilateral carotid artery stenosis-not felt to be critical for any further intervention by Dr. Gordon. Today-continues to feel better. Did use a walker to walk with physical therapy. Tolerating his diet. No chest pain or shortness of breath. Review of systems: Was done for constitutional, cardiovascular, GI, pulmonary. relevant finding as above Current medications reviewed that included: Nebulized bronchodilator, aspirin, Lipitor, Diflucan, Synthroid, Zestril, by mouth Cipro, Lopressor, sodium bicarb, Coumadin, by mouth Lasix On examination: VITAL SIGNS: 98.5, 65, 20, 129/62, 90% room air GENERAL APPEARANCE: comfortable. HEENT: Normal external appearance of nose and ear. Oral cavity normal EYES: Pupils equal. Conjunctiva normal. NECK: JVD not raised. Mass not palpable. RESPIRATORY: Respiratory effort normal. Decreased breath sounds. CARDIOVASCULAR: First and second sounds normal. No edema. ABDOMEN: Soft. Liver and spleen not palpable. No tenderness. No mass palpable. PSYCHIATRY: Alert and oriented x3. Mood and affect normal. Extremities: Dressing of the left foot Chest wall: Dressing over incision site Investigations: White count 10.6, Humulin 70/30 28, platelets 546, INR 2.2 Limited 2-D echo showed EF of 55%, moderate aortic regurgitation Assessment: -Severe mitral regurgitation recurrent episodes of flash pulmonary edema status post mitral valve replacement, biatrial modified Albert maze procedure and its exclusion of the left atrial appendix -Recurrent episodes of acute hypoxic respiratory failure requiring ventilator assistance -Paroxysmal atrial fibrillation with rapid ventricular rate currently in sinus rhythm, with Coumadin monitoring -COPD exacerbation in a current smoker -Acute kidney injury likely ATN, secondary to contrast-induced nephropathy now resolved Acute shock liver from hypotension, now resolved Chronic kidney disease stage III to have resolved, probably was from cardiorenal syndrome with improvement from mitral valve replacement. Discussed with Dr. Bhatti -Chronic nicotine dependence and a cigarette smoker -Coronary artery disease with a prior history of stent to LAD -Hypothyroidism -Hyperlipidemia -Peripheral arterial disease -Depression and anxiety not otherwise specified -Bilateral internal carotid artery stenosis. 70% on the right side and 50-60% on the left side not for further intervention by Dr. Gordon -Bilateral pneumonia with organism showing Enterobacter cloacae, and Klebsiella oxytoca -Metabolic acidosis secondary to acute kidney injury -Left foot first and second toe wound and cellulitis -Depression not otherwise specified Moderate aortic regurgitation, non-rheumatic Plan: Patient will be continued on Coumadin. Decreased to 1 mg daily. Patient is somewhat auto anticoagulated with INR running high. Discussed with sort worker is looking into discharge planning
[2017-10-02] MEDS ORDERED: WARFARIN 1 MG TAB PO SCH (18:00)
[2017-10-02] MEDS ORDERED: WARFARIN 3 MG TAB PO ONE (18:00)
[2017-10-02] MEDS: ATORVASTATIN 40 MG TAB PO SCH (19:50)
[2017-10-02] MEDS: SENNOSIDES-DOCUSATE SODIUM 1 EACH TAB PO SCH (19:50)
--- NOTE | 2017-10-02 23:04 | PN ---
PROGRESS NOTE DATE OF SERVICE: 10/02/2017 REASON FOR FOLLOWUP: 1. Enterobacter pneumonia. 2. Left first and second toe wound. INTERVAL HISTORY: The patient is afebrile. He has been breathing more comfortably. He has some occasional cough which is dry in nature. No chest pain. No abdominal pain. No diarrhea. Denies any pain in the left foot area. PHYSICAL EXAMINATION: Blood pressure is 151/67 with a pulse of 77, temperature of 99.3. He is 97% on room air. General description is a middle-aged male up in the bed in no distress. RESPIRATORY SYSTEM: Unlabored breathing with decreased breath sounds in the bases. No wheeze. HEART: S1, S2. Regular rate and rhythm. ABDOMEN: Soft. No tenderness. Left foot is currently dressed up. No obvious drainage on the dressing. LABS: Hemoglobin 7.8, white count 10.6, BUN of 17, creatinine 1.0. DIAGNOSTIC IMPRESSION AND PLAN: 1. Patient with enterobacter and klebsiella pneumonia, currently on oral Cipro, to continue for another week. 2. Left foot wound. Continue to treat it with Aquacel Silver dressing and close outpatient followup. MMODL / IJN: [id number] /
[2017-10-03] MEDS: INSULIN ASPART 100 UNIT/ML 1 ML 10 ML VIAL SQ SCH ×4 (02:36→20:57)
[2017-10-03] MEDS: PANTOPRAZOLE 40 MG TABLET PO SCH (06:03)
[2017-10-03] MEDS: LEVOTHYROXINE 25 MCG TAB PO SCH (06:03)
[2017-10-03] MEDS: HYDROcodone/APAP 5-325MG 1 EACH TAB PO PRN ×3 (06:06→18:44)
[2017-10-03 06:49] LABS: INR 2.1 (<1.2); Prothrombin Time 18.7 sec (9.0-12.0)
[2017-10-03 06:53] LABS: Anisocytosis Slight; Basophils # (A) 0.1 k/uL (0-0.2); Basophils % (A) 1 %; Eosinophils # (A) 0.4 k/uL (0-0.7); Eosinophils % (A) 4 %; HCT 27.1 % (39.0-53.0); HGB 8.1 gm/dL (13.0-17.5); Hypochromasia Marked; Lymphocytes # (A) 1.8 k/uL (1.0-4.8); Lymphocytes % (A) 18 %; MCH 28.5 pg (25.0-35.0); MCHC 29.8 g/dL (31.0-37.0); MCV 95.5 fL (80.0-100.0); Macrocytosis Slight; Mean Platelet Volume 7.3; Monocytes # (A) 0.4 k/uL (0-1.0); Monocytes % (A) 4 %; Neutrophils # (A) 6.9 k/uL (1.3-7.7); Neutrophils % (A) 70 %; Platelet Count 582 k/uL (150-450); RBC 2.84 m/uL (4.30-5.90); RDW 17.6 % (11.5-15.5); WBC 9.8 k/uL (3.8-10.6)
[2017-10-03 06:56] LABS: Anion Gap 10 mmol/L; Blood Urea Nitrogen 17 mg/dL (9-20); Calcium 9.3 mg/dL (8.4-10.2); Carbon Dioxide 28 mmol/L (22-30); Chloride 100 mmol/L (98-107); Glucose 82 mg/dL (74-99); Potassium 4.6 mmol/L (3.5-5.1); Sodium 138 mmol/L (137-145)
--- NOTE | 2017-10-03 07:46 | P.PN ---
Subjective Progress Note Date: 10/03/17 Principal diagnosis: Rheumatic traumatic mitral valve disorder, severe mitral valve regurgitation. Mild aortic valve regurgitation. Mild to moderate left ventricular dysfunction , EF on CLARE preoperative 40%. Preoperative pneumonia with sputum culture positive for Enterobacter cloacae and Klebsiella oxytoca. Preoperative urinary tract infection with urine culture positive for Escherichia coli. Peripheral vascular disease with right to gangrene. Chronic obstructive pulmonary disease. Peripheral vascular disease. Moderate to severe right ICA stenosis. Previous history of chronic persistent atrial fibrillation on Eliquis for anticoagulation, depression, peripheral artery disease, chronic nicotine dependence, chronic kidney disease stage III, hypertension, coronary artery disease with previous stent placement, GERD, and hypothyroidism. Status post cardiac catheterization on 09/25/2017 demonstrating a patent LAD stent and no significant coronary stenosis. Status post neck CTA demonstrating severe right internal carotid artery estimated at greater than 70%, moderate to severe narrowing of the proximal left internal carotid artery between 50-69%. Status post angiogram, no stent placement to the carotid arteries, right carotid approximately 70% stenosis, left carotid approximately 50% stenosis per angiogram. Status post cardiac arrest, reintubation for flash pulmonary edema. POD #8 chordal preserving mitral valve replacement using a 27 mm pericardial magna ease. Bi-atrial full Albert maze procedure using radiofrequency and cryoablation. Exclusion of the left atrial appendage using a 40 mm AtriClip. Intraoperative transesophageal echocardiogram and epi-aortic scanning. Patient's currently sitting up in the recliner in no acute distress. Denies pain, shortness of breath. He has ambulated to and from the bathroom, as well as ambulating in the hallway with therapy. Objective - Vital Signs Vital signs: Vital Signs Temp 98.7 F 10/03/17 04:00 Pulse 70 10/03/17 04:00 Resp 18 10/03/17 04:00 BP 146/67 10/03/17 04:00 Pulse Ox 97 10/03/17 04:00 Intake & Output 10/02/17 10/03/17 10/03/17 18:59 06:59 18:59 Intake Total 700 Output Total 150 Balance 700 -150 Weight 77.5 kg 73 kg Intake: Intake, IV Titration 100 Amount Sodium Ferric Gluconat- 100 Sucrose 125 mg In Sodium Chloride 0.9% 100 ml @ 100 mls/hr IVPB DAILY [facility] Rx#:[id number] Oral 600 Output: Urine 150 Other: Voiding Method Toilet Toilet Urinal Urinal ABP, PAP, CO, CI - Last Documented Arterial Blood Pressure 123/103 Pulmonary Artery Pressure 49/27 Cardiac Output 6.2 Cardiac Index 3.3 - Constitutional General appearance: Present: cooperative, no acute distress - Respiratory Details: lungs sounds clear bilaterally. Respirations even, nonlabored. Currently on room air with oxygen saturation 97%. Able to achieve 1250 mL on his incentive spirometry. Effective cough. - Cardiovascular Details: S1, S2 present. Regular rate and rhythm, sinus rhythm on telemetry with occasional short bursts of A. fib. Sternum stable. Palpable peripheral pulses bilaterally. No edema present. No calf pain or tenderness noted. Heart hugger in place with patient demonstrating appropriate use. Antiembolism stockings, SCDs present. Epicardial pacemaker wires cut yesterday. - Gastrointestinal Gastrointestinal Comment(s): Abdomen soft, nontender, nondistended. Active bowel sounds 4 quadrants. Tolerating diet. Positive bowel movement. - Genitourinary Genitourinary Comment(s): Continues to void clear, yellow urine. - Integumentary Integumentary Comment(s): Skin is warm and dry with evidence of good perfusion. Anterior chest incision well approximated and covered with dry intact dressing. Left great toe, second toe dressings dry and intact. Dressings present to coccyx, left scapular area. - Neurologic Neurologic: Present: CNII-XII intact - Musculoskeletal Musculoskeletal: Present: gait normal, strength equal bilaterally - Psychiatric Psychiatric: Present: A&O x's 3, appropriate affect, intact judgment & insight - Allied health notes Allied health notes reviewed: nursing - Labs CBC & Chem 7: 10/03/17 06:01 10/03/17 06:01 Labs: Abnormal Lab Results - Last 24 Hours (Table) 10/03/17 10/03/17 Range/Units 06:01 06:01 RBC 2.84 L (4.30-5.90) m/uL Hgb 8.1 L (13.0-17.5) gm/dL Hct 27.1 L (39.0-53.0) % MCHC 29.8 L (31.0-37.0) g/dL RDW 17.6 H (11.5-15.5) % Plt Count 582 H (150-450) k/uL PT 18.7 H (9.0-12.0) sec INR 2.1 H (<1.2) - Imaging and Cardiology Chest x-ray: image reviewed Assessment and Plan (1) Acute and chronic respiratory failure with hypoxia Current Visit: Yes Status: Acute Code(s): J96.21 - ACUTE AND CHRONIC RESPIRATORY FAILURE WITH HYPOXIA SNOMED Code(s): 76110860 (2) COPD (chronic obstructive pulmonary disease) Current Visit: Yes Status: Chronic Code(s): J44.9 - CHRONIC OBSTRUCTIVE PULMONARY DISEASE, UNSPECIFIED SNOMED Code(s): 76108875 (3) Chronic kidney disease, stage III (moderate) Current Visit: Yes Status: Chronic Code(s): N18.3 - CHRONIC KIDNEY DISEASE, STAGE 3 (MODERATE) SNOMED Code(s): 509770092 (4) Gangrenous toe Current Visit: Yes Status: Chronic Code(s): I96 - GANGRENE, NOT ELSEWHERE CLASSIFIED SNOMED Code(s): 405259220 (5) History of bradycardia Current Visit: No Status: Resolved Code(s): Z86.79 - PERSONAL HISTORY OF OTHER DISEASES OF THE CIRCULATORY SYSTEM SNOMED Code(s): 743842299954932 (6) History of coronary artery disease Current Visit: No Status: Resolved Code(s): Z86.79 - PERSONAL HISTORY OF OTHER DISEASES OF THE CIRCULATORY SYSTEM SNOMED Code(s): 591851816 (7) History of depression Current Visit: Yes Status: Chronic Code(s): Z86.59 - PERSONAL HISTORY OF OTHER MENTAL AND BEHAVIORAL DISORDERS SNOMED Code(s): 436607930 (8) Hypertension Current Visit: Yes Status: Chronic Code(s): I10 - ESSENTIAL (PRIMARY) HYPERTENSION SNOMED Code(s): 04307903 (9) Hypothyroidism Current Visit: Yes Status: Chronic Code(s): E03.9 - HYPOTHYROIDISM, UNSPECIFIED SNOMED Code(s): 10842943 (10) Peripheral vascular disease Current Visit: Yes Status: Chronic Code(s): I73.9 - PERIPHERAL VASCULAR DISEASE, UNSPECIFIED SNOMED Code(s): 380490768 (11) Carotid artery stenosis Current Visit: Yes Status: Chronic Code(s): I65.29 - OCCLUSION AND STENOSIS OF UNSPECIFIED CAROTID ARTERY SNOMED Code(s): 06671251 (12) Mitral valve regurgitation Current Visit: Yes Status: Chronic Code(s): I34.0 - NONRHEUMATIC MITRAL ( VALVE) INSUFFICIENCY SNOMED Code(s): 97763626 (13) History of chronic atrial fibrillation Current Visit: Yes Status: Chronic Code(s): Z86.79 - PERSONAL HISTORY OF OTHER DISEASES OF THE CIRCULATORY SYSTEM SNOMED Code(s): 556742833 Plan: 1. Continue low-dose aspirin, statin, Fausto, beta skylar. 2. Encourage incentive spirometry use 10 times every hour. Encourage continued smoking cessation. 3. Continue oral Lasix per nephrology recommendations. 4. Will continue to dose Coumadin daily for anticoagulation based on PT/INR. Upon discharge Coumadin dosing will be managed by [facility]. 5. Antibiotics per infectious disease. 6. Avoid nephrotoxic agents. 7. GI/DVT prophylaxis. 8. Blood sugar management per primary care service. 9. Increase activity, ambulate as tolerated. PT/OT/cardiac rehab following. 10. Will monitor daily labs and x-rays. Replace magnesium today. 11. More recommendations to follow. Anticipate discharge to inpatient rehab later today. Time with Patient: Greater than 30
[2017-10-03] MEDS: NICOTINE 21MG/24HR PATCH TRANSDERM SCH (07:50)
[2017-10-03] MEDS: FUROSEMIDE 40 MG TAB PO SCH (07:51)
[2017-10-03] MEDS: ASPIRIN 81 MG PO SCH (07:51)
[2017-10-03] MEDS: FLUoxetine HCL 20 MG CAP PO SCH (07:51)
[2017-10-03] MEDS: CIPROFLOXACIN HCL 500 MG TAB PO SCH (07:51)
[2017-10-03] MEDS: METOPROLOL TARTRATE 12.5 MG TAB PO SCH ×2 (07:52→20:56)
[2017-10-03] MEDS: MAGNESIUM SULFATE-D5W PMX 1 GM in DEXTROSE/WATER 1 100ML.BAG IVPB SCH ×2 (07:52→09:12)
[2017-10-03] MEDS: SODIUM BICARBONATE TAB 650 MG TAB PO SCH (07:52)
[2017-10-03] MEDS: IPRATROPIUM-ALBUTEROL 3 ML NEB INHALATION SCH ×4 (08:20→19:29)
--- NOTE | 2017-10-03 09:01 | P.PN ---
Subjective Patient is seen in follow-up for acute kidney injury. Renal function is improved, cr is stable. He is status post mitral valve replacement on September 25. He is awake and alert and currently sitting up in bed. Currently maintained on antibiotics for E. coli UTI as well as Enterobacter and Klebsiella noted on sputum culture. He is nonoliguric. Blood pressure is well controlled. He was started on low-dose lisinopril on September 29. Oral intake is good. No active complaints at this time. Potential discharge to rehab today. Vital signs are stable. General: The patient appeared well nourished and normally developed. Currently intubated. HEENT: Head exam is unremarkable. Neck is without jugular venous distension. LUNGS: Lungs are clear to auscultation and percussion. Breath sounds decreased. HEART: Rate and Rhythm are regular. First and second heart sounds normal. No murmurs, rubs or gallops. ABDOMEN: Abdominal exam reveals normal bowel sounds. Non-tender and non- distended. No evidence of peritonitis. EXTREMITITES: No clubbing, cyanosis, or edema. Objective - Vital Signs Vital signs: Vital Signs Temp 98.6 F 10/03/17 07:45 Pulse 68 10/03/17 08:21 Resp 16 10/03/17 07:45 BP 115/61 10/03/17 07:45 Pulse Ox 98 10/03/17 07:45 Intake & Output 10/02/17 10/03/17 10/03/17 18:59 06:59 18:59 Intake Total 700 Output Total 150 Balance 700 -150 Weight 77.5 kg 73 kg Intake: Intake, IV Titration 100 Amount Sodium Ferric Gluconat- 100 Sucrose 125 mg In Sodium Chloride 0.9% 100 ml @ 100 mls/hr IVPB DAILY [facility] Rx#:[id number] Oral 600 Output: Urine 150 Other: Voiding Method Toilet Toilet Urinal Urinal ABP, PAP, CO, CI - Last Documented Arterial Blood Pressure 123/103 Pulmonary Artery Pressure 49/27 Cardiac Output 6.2 Cardiac Index 3.3 - Labs CBC & Chem 7: 10/03/17 06:01 10/03/17 06:01 Labs: Abnormal Lab Results - Last 24 Hours (Table) 10/03/17 10/03/17 Range/Units 06:01 06:01 RBC 2.84 L (4.30-5.90) m/uL Hgb 8.1 L (13.0-17.5) gm/dL Hct 27.1 L (39.0-53.0) % MCHC 29.8 L (31.0-37.0) g/dL RDW 17.6 H (11.5-15.5) % Plt Count 582 H (150-450) k/uL PT 18.7 H (9.0-12.0) sec INR 2.1 H (<1.2) Assessment and Plan Plan: Assessment: #1. Nonoliguric acute kidney injury secondary to ATN secondary to contrast- induced nephropathy and hemodynamic instability. Resolved. #2. Mild hyperkalemia secondary to acute kidney injury and lactated Ringer's. Improved. #3. Chronic kidney disease stage III with baseline creatinine in the range of 1.2-1.4 secondary to nephrosclerosis. #4. Mitral valve regurgitation status post mitral valve replacement on 2017. #5. Pneumonia with sputum culture positive for Enterobacter and Klebsiella. #6. UTI with urine culture positive for E. coli. #7. Systolic CHF with ejection fraction of 40%. #8. Atrial fibrillation. Currently rate controlled. #9. Anemia status post blood transfusion on September 25. Hemoglobin 8.2 this morning. Iron deficiency noted. Status post 3 doses of IV iron. #10. Hypertension with chronic kidney disease. Controlled. #11. Metabolic acidosis secondary to acute kidney injury. Improved. Plan: Continue Lasix 40 mg once daily. Discontinue sodium bicarbonate. Avoid nephrotoxic agents and hypotensive episodes. Continue to monitor renal function and urine output. Antibiotics per infectious disease recommendations. Repeat electrolytes in the morning. Anticipated discharge to rehab soon.
--- NOTE | 2017-10-03 09:11 | XR ---
EXAMINATION TYPE: XR chest 2V DATE OF EXAM: 10/03/2017 COMPARISON: 10/02/2017 HISTORY: Post cardiac surgery TECHNIQUE: Frontal and lateral views of the chest are obtained. FINDINGS: Right basilar airspace disease is seen with improvement in aeration of the left lung base. Cardiac silhouette is again enlarged with cardiac valvular displacement, aortic closure device and i ntact midline sternotomy wires. No pleural effusion or interstitial edema. Osseous structures are int act. IMPRESSION: Continued improved aeration of the left lung base with residual right basilar airspace d isease, likely postoperative atelectasis.
[2017-10-03] MEDS: AMIODARONE 200 MG TAB PO SCH (10:57)
[2017-10-03] MEDS: LISINOPRIL 2.5 MG TAB PO SCH (12:11)
--- NOTE | 2017-10-03 12:17 | P.PN ---
Subjective Progress Note Date: 10/03/17 Principal diagnosis: Status post mitral valve replacement This 62-year-old gentleman who is status post mitral valve replacement , he does have known history of coronary artery disease with prior LAD stenting , hypertension, hyperlipidemia. He was seen and examined this morning, up ambulating in the hallway without any difficulty. Eager to be discharged. Remaining in normal sinus rhythm. White blood cell count 10.6, hemoglobin 7.8, platelet count 546. INR 2.2, sodium 138, potassium 4.5, BUN 17, creatinine 1.0. Mag level 2.0. 10/03/2017 Patient seen and examined this morning, sitting up in the chair at bedside. Feeling much better overall. Ambulated in the hallway today with physical therapy. Chest x-ray shows continued improved aeration of the left lung base with residual right basilar airspace disease. Blood pressure 116/60 with heart rate in the 70s. INR today 2.1. Objective - Vital Signs Vital signs: Vital Signs Temp 98.6 F 10/03/17 07:45 Pulse 70 10/03/17 11:37 Resp 16 10/03/17 08:00 BP 115/61 10/03/17 07:45 Pulse Ox 98 10/03/17 07:45 Intake & Output 10/02/17 10/03/17 10/03/17 18:59 06:59 18:59 Intake Total 700 270 Output Total 150 Balance 700 -150 270 Weight 77.5 kg 73 kg Intake: IV 10 Invasive Line 3 10 Intake, IV Titration 100 Amount Sodium Ferric Gluconat- 100 Sucrose 125 mg In Sodium Chloride 0.9% 100 ml @ 100 mls/hr IVPB DAILY [facility] Rx#:[id number] Oral 600 260 Output: Urine 150 Other: Voiding Method Toilet Toilet Toilet Urinal Urinal Urinal ABP, PAP, CO, CI - Last Documented Arterial Blood Pressure 123/103 Pulmonary Artery Pressure 49/27 Cardiac Output 6.2 Cardiac Index 3.3 - Exam PHYSICAL EXAMINATION: HEENT: Head is atraumatic, normocephalic. Pupils equal, round. Neck is supple. There is no elevated jugular venous pressure. HEART EXAMINATION: Heart S1, S2 normal. No murmur or gallop heard. CHEST EXAMINATION: Lungs reveal diminished air entry to bilateral bases. ABDOMEN: Soft, nontender. Bowel sounds are heard. No organomegaly noted. EXTREMITIES: 2+ peripheral pulses with no evidence of peripheral edema and no calf tenderness noted. Bilateral Venodyne's and SCDs in place. NEUROLOGIC patient is awake, alert and oriented -3. . - Labs CBC & Chem 7: 10/03/17 06:01 10/03/17 06:01 Labs: Abnormal Lab Results - Last 24 Hours (Table) 10/03/17 10/03/17 Range/Units 06:01 06:01 RBC 2.84 L (4.30-5.90) m/uL Hgb 8.1 L (13.0-17.5) gm/dL Hct 27.1 L (39.0-53.0) % MCHC 29.8 L (31.0-37.0) g/dL RDW 17.6 H (11.5-15.5) % Plt Count 582 H (150-450) k/uL PT 18.7 H (9.0-12.0) sec INR 2.1 H (<1.2) Assessment and Plan Plan: Assessment and plan #1 status post mitral valve replacement #2 paroxysmal atrial fibrillation #3 COPD #4 chronic kidney disease stage III #5 known history of coronary artery disease with prior LAD stenting #6 history of depression #7 hypertension #8 hypothyroidism Plan From cardiology's perspective, we'll recommend to continue the patient on his current medications. Arrangements are being made for transfer to rehab post discharge. DNP note has been reviewed, I agree with a documented findings and plan of care. Patient was seen and examined.
--- NOTE | 2017-10-03 13:07 | P.PN ---
Subjective Progress Note Date: 10/03/17 Principal diagnosis: Severe mitral valve regurgitation, status post mitral valve replacement, modified Albert maze cryoablation, and exclusion of the left atrial appendage This is a very pleasant 62-year-old gentleman who was found to have severe mitral valve stenosis. He had developed acute respiratory failure requiring intubation mechanical ventilatory support. He has been successfully extubated. He is seen again today in follow-up in the intensive care unit. He is awake and alert in no acute distress. The plan is for a right carotid stent tomorrow for greater than 70% stenosis. The patient will need to be on Plavix for 2 weeks and high-dose aspirin. The plan will be for possible mitral valve repair/ replacement following that time. In the interim he remains on a heparin drip for his atrial fibrillation. He remains on a Cardizem drip at 10 mg per hour. Amiodarone drip at 0.5 mg/m. Still having issues with tachycardia in regards to the atrial fibrillation. He is requiring 4 L nasal cannula to maintain O2 saturations in the 90s. Yesterday's chest x-ray revealed some persistent mild central vascular congestion with a new small right pleural effusion. There is cardiomegaly. Blood, sputum and urine cultures reveal no growth. No leukocytosis. Hemoglobin 9.9. Creatinine 1.40. He did have issues with diarrhea. C. difficile screen was negative. Patient was reevaluated today on 09/21/2017, patient is comfortable, in no distress, no shortness of breath no cough no wheezing, patient is scheduled to have carotid artery stenting today. This will be done by Dr. Walker. Continues to have intermittent episodes of tachyarrhythmias with intermittent episodes of sinus bradycardia and atrial fibrillation. Blood pressure is also fluctuating up and down intermittently. No chest x-ray was done today, all his labs were reviewed, creatinine is 1.30 today. Otherwise the labs are unremarkable. Patient was reevaluated today on 09/22/2017, patient was transferred out of the ICU yesterday to a monitor bed on selective, however early evening hours, patient developed an acute episode of bradycardia, cardiac arrest, required CPR. Reintubation and placement on mechanical ventilation. The chest x-ray showed again flash pulmonary edema. Patient was diuresed overnight, he was kept on mechanical ventilation, and his chest x-ray is showing significant improvement compared to yesterday's x-ray just after the code. Patient is arousable, follows simple instructions, no evidence of acute brain injury noted. Patient was seen by cardiology and he was seen by cardiothoracic surgery , and I believe at this point he is scheduled to have mitral valve replacement on Monday. In the meantime I plan to keep the patient on mechanical ventilation , and we'll continue to diurese him. We'll monitor his renal status closely, it will likely improve. Patient may have developed a slight kidney injury secondary to acute tumor necrosis. ABG this morning showed a pO2 of 292 pCO2 of 26 pH of 7.47, WBC count is 12.2 hemoglobin is 9.8. Basic metabolic profile is normal except for BUN 23 creatinine 1.80, and it was 1.60 yesterday. Reevaluated today on 09/23/2017, patient remains on mechanical ventilation, his ventilator settings are basically the same, cut down his FiO2 to 45%, patient is arousable, follows simple instructions, chest x-ray is showing mild pulmonary edema, much improved compared to the initial chest x-ray at the time of his intubation. Patient is receiving nutritional support, via nasogastric tube. ABG today showed a pO2 of 119 pCO2 of 32 pH of 7.45. CBC is relatively normal hemoglobin however is 9.3. Potassium is low at 3.4 being corrected. Renal profile is slightly better, BUN is 23 creatinine is 1.70. Patient was reevaluated today on 09/24/2017, remains on mechanical ventilation, his ventilator settings are basically the same, remains on FiO2 of 45%. Chest x -ray showed cardiomegaly, bibasilar atelectasis, but no clear-cut evidence of pneumonia. Improved aeration in both lungs was noted compared to the chest x- ray few days ago. His sputum came back positive for Enterobacter cloaca and Klebsiella oxytoca, and his urine came back positive for E. coli. His antibiotics were switched to imipenem to cover for all of the above. On 09/25/2017 patient seen post mitral valve replacement, modified Albert maze cryoablation, and exclusion of the left atrial appendage. Patient is intubated and sedated on mechanical ventilation with the vent settings assist control mode with a rate of 12, tidal volume 500, FiO2 100%, and PEEP of 5. Intraoperatively he received 1 unit of packed red blood cells for hemoglobin of 7.0. Patient has 2 mediastinal chest tubes that are Y-connected together, there is about 35 mL of sanguinous output in the atrium collection chamber. Patient's rhythm is sinus with a rate of any BPM. Patient has epicardial wires , connected to a temporary external pacemaker, with settings of AAI with a rate of 80 BPM. PA pressures of 48/25, with a mean of 29. The cardiac output and index are 4.5 and 2.4 respectively. Maintenance fluids are LR at 50 ML per hour , clevidipine is currently running at 2 mg per hour, Primacor is infusing at 0.2 mics per kilo per minute, and nitroglycerin at 5 mics per minute. Microbiology showed a sputum culture from 09/22/2017 positive for Enterobacter o 'clock K and Klebsiella oxytoca, and urine cultures positive for E. coli. Patient remains on a combination of cefazolin and vancomycin per ID service recommendation. This morning's lab work showed a PVC of 5.5, hemoglobin of 9.8 , renal profile improving, BUN of 21, creatinine of 1.5. Postop blood work is pending. Postop blood gases pending as well. Patient was reevaluated today on 09/26/2017, he is postoperative day #1. I saw him yesterday shortly after his surgery, and he was on mechanical ventilation. At night the patient was weaned and extubated uneventfully, and he is now on nasal cannula, in no distress. Chest x-ray showed minimal interstitial edema, however the patient responded well to Lasix earlier today by her to thoracic surgery. Patient is relatively asymptomatic, sitting in a bedside chair. Chest x-ray and labs were reviewed. His renal profile is improving creatinine is down to 1.40, it was 1.70 yesterday. Rest of the labs were unremarkable. Reevaluated today on 09/27/2017, patient is postoperative day #2. He is status post mitral valve replacement as noted above. Patient is off oxygen, he is on room air, saturating in the 90s, awake, in no form of respiratory distress whatsoever. Chest x-ray continues to show steady improvement of his pulmonary edema. CBC is relatively normal hemoglobin is 8.6. Electrolytes are normal BUN is 22 creatinine is even better today 1.20. Reevaluated today on 09/28/2017, he is postoperative day #3, status post mitral valve replacement, patient is off the oxygen, continues to do well on room air, saturating in the 90s again, he is not in any form of distress, chest x-ray is showing slight pulmonary edema, however he received Lasix earlier today and he responded quite well. CBC showed WBC count of 14.4 hemoglobin is 8.8 basic metabolic profile is normal creatinine is down to 1.09. The patient seen again today 09/29/2017 in follow-up on the selective care unit. He is currently sitting up in a chair at the bedside. He is awake and alert in no acute distress. This is postoperative day #4 status post mitral valve replacement. He denies any worsening shortness of breath, cough or congestion. He's been up ambulating with assistance. Chest x-ray shows persistent bibasilar opacities with mild improvement. He is working well at the incentive spirometer. He is maintaining good O2 saturations in the mid to upper 90s on room air. He is afebrile. Hemodynamically stable. He is maintained on Diflucan and meropenem. Continued on diuretics. White count 12.4. Hemoglobin 8.4. Creatinine 1.00. Reevaluated today on 09/30/2017, patient is doing great, he has no active pulmonary symptoms whatsoever. Continues to have minimal bibasilar opacities in the lungs, remains on antibiotics for pneumonia, patient is again asymptomatic, no cough no wheezing no shortness of breath, no fever, no chills, no hemoptysis. CBC is relatively normal except for hemoglobin of 8.2, patient is receiving iron. Basic metabolic profile is normal. Reevaluated today on 10/01/2017, patient remains stable, asymptomatic, no cough no wheezing no shortness of breath. No chest x-ray was done. Labs today were excellent hemoglobin is holding at 8.0 basic metabolic profile is normal creatinine is back to baseline normal 0.98. Patient isn't ready beginning to ambulate. Progress note dated 10/02/2017 62-year-old white male with a history of respiratory failure secondary to severe mitral regurgitation. The patient did have a mitral valve replacement. He is doing relatively well now. Resting comfortably. The patient's on the sixth floor. In addition, he has a history of atrial fibrillation with RVR CAD with previous stent placement history of COPD essential hypertension depression peripheral vascular occlusive disease hypothyroidism hypertensive nephrosclerosis acute cellulitis and dry gangrene of the left big toe bilateral carotid disease and a positive sputum and urine cultures for Enterobacter Klebsiella and E. coli. Not quite sure when the patient will be discharged. The patient otherwise is doing relatively well. The patient still on nasal O2 at couple basic IV. Denies any shortness of breath chest pain chest discomfort. Not coughing up any phlegm or blood. On 10/03/2017 patient seen in follow-up on selective care unit. Denies any acute distress, currently on room air, with O2 sat at 100%. His lung sounds are diminished, but clear. He is in sinus rhythm with a controlled rate. He is hemodynamically stable. He is afebrile. His chest x-ray from today was reviewed, and showed continued improved aeration of the left lung base with residual right basilar airspace disease, likely postoperative atelectasis. Today's lab work was reviewed, WBC is within normal limits at 9.8, hemoglobin is 8.1, INR is 2.1, electrolyte and renal profile within normal limits. Discharge planning is in progress to transfer the patient to [facility] inpatient rehab today. Objective - Vital Signs Vital signs: Vital Signs Temp 97.7 F 10/03/17 12:00 Pulse 66 10/03/17 12:00 Resp 16 10/03/17 12:00 BP 118/76 10/03/17 12:00 Pulse Ox 100 10/03/17 12:00 Intake & Output 10/02/17 10/03/17 10/03/17 18:59 06:59 18:59 Intake Total 700 270 Output Total 150 Balance 700 -150 270 Weight 77.5 kg 73 kg Intake: IV 10 Invasive Line 3 10 Intake, IV Titration 100 Amount Sodium Ferric Gluconat- 100 Sucrose 125 mg In Sodium Chloride 0.9% 100 ml @ 100 mls/hr IVPB DAILY [facility] Rx#:[id number] Oral 600 260 Output: Urine 150 Other: Voiding Method Toilet Toilet Toilet Urinal Urinal Urinal ABP, PAP, CO, CI - Last Documented Arterial Blood Pressure 123/103 Pulmonary Artery Pressure 49/27 Cardiac Output 6.2 Cardiac Index 3.3 - Exam GENERAL EXAM: Revealed a 62-year-old -[place] male, awake, alert, in no acute distress HEAD: Normocephalic. EYES: Normal reaction of pupils, equal size. NOSE: Clear with pink turbinates. THROAT: No erythema or exudates. Endotracheal tube seems to be intact. Orogastric tube is also intact. NECK: No masses, no JVD. CHEST: No chest wall deformity. Midsternal incision is clean dry and intact. LUNGS: Lung sounds are clear, diminished at the bases. CVS: S1 and S2 normal, pericardial rub, regular rate and rhythm. ABDOMEN: No hepatosplenomegaly, normal bowel sounds, no guarding or rigidity. SPINE: No scoliosis or deformity SKIN: No rashes CENTRAL NERVOUS SYSTEM: No focal deficits, tone is normal in all 4 extremities. EXTREMITIES: There is no peripheral edema. No clubbing, no cyanosis. Peripheral pulses are intact. - Labs CBC & Chem 7: 10/03/17 06:01 10/03/17 06:01 Labs: Abnormal Lab Results - Last 24 Hours (Table) 10/03/17 10/03/17 Range/Units 06:01 06:01 RBC 2.84 L (4.30-5.90) m/uL Hgb 8.1 L (13.0-17.5) gm/dL Hct 27.1 L (39.0-53.0) % MCHC 29.8 L (31.0-37.0) g/dL RDW 17.6 H (11.5-15.5) % Plt Count 582 H (150-450) k/uL PT 18.7 H (9.0-12.0) sec INR 2.1 H (<1.2) Assessment and Plan Plan: Assessment: #1. Severe mitral regurgitation, with recurrent episodes of systolic congestive heart failure, status post mitral valve replacement, biatrial modified Albert maze procedure and exclusion of the left atrial appendix, postop day 8 #2. Recurrent episodes of hypoxic respiratory failure mostly secondary to mitral valve disease, resolved since the patient had his mitral valve replacement #3. Atrial fibrillation/RVR, currently in sinus rhythm. #5. History of CAD with previous stent placement #6. History of COPD #7. History of essential hypertension #8. History of depression #9. Peripheral vascular occlusive disease #10. Hypothyroidism #11. Hypertensive nephrosclerosis with chronic kidney disease, resolved #12. Acute cellulitis and dry gangrene of the left big toe, status post debridement #13. Bilateral carotid disease, worse on the right with a greater than 70% obstruction, angiogram showed the obstruction was nonsignificant. #14. Positive sputum cultures positive for Enterobacter cloacae and Klebsiella oxytoca and urine cultures positive for E. coli. Was treated with a course of meropenem, currently on ciprofloxacin for 7 more days Recommendation: Patient remains stable, denies any acute distress, denies any dyspnea. Vital signs are stable, no acute events overnight, tolerating ambulation, compliant with incentive spirometry. Chest x-ray shows improvement in the appearance of the left lung aeration, there is some residual right basilar airspace disease, likely atelectasis. Lab work is negative for any evidence of leukocytosis, hemoglobin is improving, it is up to 8.1 today, his electrolyte and renal profile are within normal limits. Patient is stable for discharge to [facility] rehab pending the availability of a bed there. I performed a history & physical examination of the patient and discussed their management with my nurse practitioner, Kanchan Rizzo. I reviewed the nurse practitioner's note and agree with the documented findings and plan of care. Lung sounds are diminished. The findings and the impression was discussed with the patient. I attest to the documentation by the nurse practitioner. Time with Patient: Less than 30
--- NOTE | 2017-10-03 14:11 | PN ---
PROGRESS NOTE DATE OF SERVICE: 10/03/2017. REASON FOR FOLLOWUP: 1. Gram-negative pneumonia. 2. Left first and second toe wound. INTERVAL HISTORY: The patient is afebrile, he has been breathing comfortably. Denies having any chest pain or shortness of breath. No cough. No abdominal pain or pain in the left foot area. Patient did go into A. fib with RVR and planning on starting the patient on amiodarone which apparently is drug interaction with Cipro and Diflucan patient is on. PHYSICAL EXAMINATION: Blood pressure is 118/76 with a pulse of 66 temperature 97.7 He is 100% on room air. General description is a middle aged male up in the chair in no distress. RESPIRATORY SYSTEM: Unlabored breathing, decreased breath sounds at the base, no wheeze. HEART: S1, S2. Regular rate and rhythm. ABDOMEN: Soft, no tenderness. Left foot with a second toe wound dressed, no drainage on the dressing. LABS: Hemoglobin 8.1, white count of 9.8 with a BUN of 17, creatinine 1.06. DIAGNOSTIC IMPRESSION AND PLAN: 1. Patient with gram-negative pneumonia, adequately treated with history of more than 10 days of IV antibiotic and oral antibiotic therapy. Recommend discontinue both Cipro and Diflucan. Will watch the patient closely off antibiotic therapy. 2. Left foot wound. Local wound care with Aquacel Silver dressing. Keep the area off the pressure. MMODL / IJN: [id number] /
[2017-10-03 14:32] VITALS: BMI 22.4
--- NOTE | 2017-10-03 16:45 | P.PN ---
Progress Note - Text Progress Note Date: 10/03/17 *Live* Dario Ramirez [address], [place] [address] Progress Note - Text Presenting complaint: Tired Interval history: This is a patient initially admitted with infection of the left big toe. Subsequently had recurrent flash pulmonary edema eventually leading to mitral valve replacement. Also had Maze procedure done. Also being treated for pneumonia. Patient has bilateral carotid artery stenosis-not felt to be critical for any further intervention by Dr. Gordon. Today-sitting up in a chair. Comfortable. Starting a diet. Had a bowel movement.. Review of systems: Was done for constitutional, cardiovascular, GI, pulmonary. relevant finding as above Current medications reviewed that included: Nebulized bronchodilator, aspirin, Lipitor, Diflucan, Synthroid, Zestril, by mouth Cipro, Lopressor, sodium bicarb, Coumadin, by mouth Lasix On examination: VITAL SIGNS: 97.7, 66, 16, 108/76, 100% room air GENERAL APPEARANCE: comfortable. , Sitting up in a chair HEENT: Normal external appearance of nose and ear. Oral cavity normal EYES: Pupils equal. Conjunctiva normal. NECK: JVD not raised. Mass not palpable. RESPIRATORY: Respiratory effort normal. Decreased breath sounds. CARDIOVASCULAR: First and second sounds normal. No edema. ABDOMEN: Soft. Liver and spleen not palpable. No tenderness. No mass palpable. PSYCHIATRY: Alert and oriented x3. Mood and affect normal. Extremities: Dressing of the left foot Chest wall: Dressing over incision site Investigations: White count 9.8, hemoglobin 8.1, platelets 582, INR 2.1 Limited 2-D echo showed EF of 55%, moderate aortic regurgitation Assessment: -Severe mitral regurgitation recurrent episodes of flash pulmonary edema status post mitral valve replacement, biatrial modified Albert maze procedure and its exclusion of the left atrial appendix -Recurrent episodes of acute hypoxic respiratory failure requiring ventilator assistance -Paroxysmal atrial fibrillation with rapid ventricular rate currently in sinus rhythm, with Coumadin monitoring -COPD exacerbation in a current smoker -Acute kidney injury likely ATN, secondary to contrast-induced nephropathy now resolved Acute shock liver from hypotension, now resolved -Chronic nicotine dependence and a cigarette smoker -Coronary artery disease with a prior history of stent to LAD -Hypothyroidism -Hyperlipidemia -Peripheral arterial disease -Depression and anxiety not otherwise specified -Bilateral internal carotid artery stenosis. 70% on the right side and 50-60% on the left side not for further intervention by Dr. Gordon -Bilateral pneumonia with organism showing Enterobacter cloacae, and Klebsiella oxytoca -Metabolic acidosis secondary to acute kidney injury -Left foot first and second toe wound and cellulitis -Depression not otherwise specified Moderate aortic regurgitation, non-rheumatic Plan: Patient will be continued on Coumadin. Decreased to 1 mg daily. Patient is somewhat auto anticoagulated with INR running high. Discussed with paste worker is looking into discharge planning. Medically stable
[2017-10-03] MEDS ORDERED: WARFARIN 3 MG TAB PO ONE (18:00)
[2017-10-03] MEDS: ATORVASTATIN 40 MG TAB PO SCH (20:56)
[2017-10-03] MEDS: SENNOSIDES-DOCUSATE SODIUM 1 EACH TAB PO SCH (20:56)
[2017-10-03] MEDS ORDERED: ACETAMINOPHEN TAB 325 MG TAB PO PRN (22:54)
[2017-10-04 06:31] LABS: Anisocytosis Slight; HCT 27.1 % (39.0-53.0); Hypochromasia Marked; MCH 27.8 pg (25.0-35.0); MCHC 29.6 g/dL (31.0-37.0); MCV 93.8 fL (80.0-100.0); Mean Platelet Volume 7.7; Platelet Count 549 k/uL (150-450); RBC 2.89 m/uL (4.30-5.90); RDW 17.4 % (11.5-15.5); WBC 9.4 k/uL (3.8-10.6)
[2017-10-04] MEDS: INSULIN ASPART 100 UNIT/ML 1 ML 10 ML VIAL SQ SCH ×3 (06:35→16:15)
[2017-10-04 06:36] LABS: INR 2.5 (<1.2); Prothrombin Time 22.8 sec (9.0-12.0)
[2017-10-04 06:38] LABS: Anion Gap 11 mmol/L; Blood Urea Nitrogen 14 mg/dL (9-20); Calcium 9.1 mg/dL (8.4-10.2); Carbon Dioxide 25 mmol/L (22-30); Chloride 103 mmol/L (98-107); Glucose 85 mg/dL (74-99); Potassium 4.4 mmol/L (3.5-5.1); Sodium 139 mmol/L (137-145)
[2017-10-04] MEDS: LEVOTHYROXINE 25 MCG TAB PO SCH (06:43)
[2017-10-04] MEDS: PANTOPRAZOLE 40 MG TABLET PO SCH (06:43)
[2017-10-04] MEDS: HYDROcodone/APAP 5-325MG 1 EACH TAB PO PRN ×3 (06:49→16:43)
[2017-10-04] MEDS: IPRATROPIUM-ALBUTEROL 3 ML NEB INHALATION SCH ×3 (07:23→15:52)
[2017-10-04] MEDS: ASPIRIN 81 MG PO SCH (08:05)
[2017-10-04] MEDS: AMIODARONE 200 MG TAB PO SCH (08:05)
[2017-10-04] MEDS: METOPROLOL TARTRATE 12.5 MG TAB PO SCH (08:05)
[2017-10-04] MEDS: NICOTINE 21MG/24HR PATCH TRANSDERM SCH (08:05)
[2017-10-04] MEDS: FUROSEMIDE 40 MG TAB PO SCH (08:05)
[2017-10-04] MEDS: FLUoxetine HCL 20 MG CAP PO SCH (08:05)
--- NOTE | 2017-10-04 08:40 | P.PN ---
Subjective Patient is seen in follow-up for acute kidney injury. Renal function is improved, cr is stable. He is status post mitral valve replacement on September 25. He is awake and alert and currently sitting up in bed. Currently maintained on antibiotics for E. coli UTI as well as Enterobacter and Klebsiella noted on sputum culture. He is nonoliguric. Blood pressure is well controlled. He was started on low-dose lisinopril on September 29. Oral intake is good. No active complaints at this time. Potential discharge to rehab today. Vital signs are stable. General: The patient appeared well nourished and normally developed. Currently intubated. HEENT: Head exam is unremarkable. Neck is without jugular venous distension. LUNGS: Lungs are clear to auscultation and percussion. Breath sounds decreased. HEART: Rate and Rhythm are regular. First and second heart sounds normal. No murmurs, rubs or gallops. ABDOMEN: Abdominal exam reveals normal bowel sounds. Non-tender and non- distended. No evidence of peritonitis. EXTREMITITES: No clubbing, cyanosis, or edema. Objective - Vital Signs Vital signs: Vital Signs Temp 98.2 F 10/04/17 08:00 Pulse 76 10/04/17 08:00 Resp 16 10/04/17 08:00 BP 118/67 10/04/17 08:00 Pulse Ox 100 10/04/17 08:00 Intake & Output 10/03/17 10/04/17 10/04/17 18:59 06:59 18:59 Intake Total 270 100 Balance 270 100 Weight 73 kg 72.8 kg Intake: IV 10 Invasive Line 3 10 Oral 260 100 Other: Voiding Method Toilet Urinal Urinal Urinal Incontinent # Voids 1 1 # Bowel Movements 0 ABP, PAP, CO, CI - Last Documented Arterial Blood Pressure 123/103 Pulmonary Artery Pressure 49/27 Cardiac Output 6.2 Cardiac Index 3.3 - Labs CBC & Chem 7: 10/04/17 05:46 10/04/17 05:46 Labs: Abnormal Lab Results - Last 24 Hours (Table) 10/04/17 10/04/17 Range/Units 05:46 05:46 RBC 2.89 L (4.30-5.90) m/uL Hgb 8.0 L (13.0-17.5) gm/dL Hct 27.1 L (39.0-53.0) % MCHC 29.6 L (31.0-37.0) g/dL RDW 17.4 H (11.5-15.5) % Plt Count 549 H (150-450) k/uL PT 22.8 H (9.0-12.0) sec INR 2.5 H (<1.2) Assessment and Plan Plan: Assessment: #1. Nonoliguric acute kidney injury secondary to ATN secondary to contrast- induced nephropathy and hemodynamic instability. Resolved. #2. Mild hyperkalemia secondary to acute kidney injury and lactated Ringer's. Improved. #3. Chronic kidney disease stage III with baseline creatinine in the range of 1.2-1.4 secondary to nephrosclerosis. #4. Mitral valve regurgitation status post mitral valve replacement on 2017. #5. Pneumonia with sputum culture positive for Enterobacter and Klebsiella. #6. UTI with urine culture positive for E. coli. #7. Systolic CHF with ejection fraction of 40%. #8. Atrial fibrillation. Currently rate controlled. #9. Anemia status post blood transfusion on September 25. Hemoglobin 8.0 this morning. Iron deficiency noted. Status post 3 doses of IV iron. #10. Hypertension with chronic kidney disease. Controlled. #11. Metabolic acidosis secondary to acute kidney injury. Improved. Plan: Continue Lasix 40 mg once daily. Discontinue sodium bicarbonate. Avoid nephrotoxic agents and hypotensive episodes. Continue to monitor renal function and urine output. Antibiotics per infectious disease recommendations - completed course. Repeat electrolytes in the morning. Anticipated discharge to rehab soon.
--- NOTE | 2017-10-04 10:18 | P.PN ---
Subjective Progress Note Date: 10/04/17 Principal diagnosis: Rheumatic traumatic mitral valve disorder, severe mitral valve regurgitation. Mild aortic valve regurgitation. Mild to moderate left ventricular dysfunction , EF on CLARE preoperative 40%. Preoperative pneumonia with sputum culture positive for Enterobacter cloacae and Klebsiella oxytoca. Preoperative urinary tract infection with urine culture positive for Escherichia coli. Peripheral vascular disease with right to gangrene. Chronic obstructive pulmonary disease. Peripheral vascular disease. Moderate to severe right ICA stenosis. Previous history of chronic persistent atrial fibrillation on Eliquis for anticoagulation, depression, peripheral artery disease, chronic nicotine dependence, chronic kidney disease stage III, hypertension, coronary artery disease with previous stent placement, GERD, and hypothyroidism. Status post cardiac catheterization on 09/25/2017 demonstrating a patent LAD stent and no significant coronary stenosis. Status post neck CTA demonstrating severe right internal carotid artery estimated at greater than 70%, moderate to severe narrowing of the proximal left internal carotid artery between 50-69%. Status post angiogram, no stent placement to the carotid arteries, right carotid approximately 70% stenosis, left carotid approximately 50% stenosis per angiogram. Status post cardiac arrest, reintubation for flash pulmonary edema. POD #9 chordal preserving mitral valve replacement using a 27 mm pericardial magna ease. Bi-atrial full Albert maze procedure using radiofrequency and cryoablation. Exclusion of the left atrial appendage using a 40 mm AtriClip. Intraoperative transesophageal echocardiogram and epi-aortic scanning. Patient's currently sitting up in the recliner in no acute distress. Denies pain, shortness of breath. He has ambulated in the hallway. Pain was to go to inpatient rehab yesterday, however there was no bed availability. Patient did fall this morning when getting up to bathroom unassisted, however he did not hit his head, no reported injuries, neuro eval completely intact. Objective - Vital Signs Vital signs: Vital Signs Temp 98.4 F 10/04/17 04:00 Pulse 76 10/04/17 07:33 Resp 19 10/04/17 04:00 BP 138/72 10/04/17 04:00 Pulse Ox 100 10/04/17 07:23 Intake & Output 10/03/17 10/04/17 10/04/17 18:59 06:59 18:59 Intake Total 270 100 Balance 270 100 Weight 73 kg 72.8 kg Intake: IV 10 Invasive Line 3 10 Oral 260 100 Other: Voiding Method Toilet Urinal Urinal Incontinent # Voids 1 1 # Bowel Movements 0 ABP, PAP, CO, CI - Last Documented Arterial Blood Pressure 123/103 Pulmonary Artery Pressure 49/27 Cardiac Output 6.2 Cardiac Index 3.3 - Constitutional General appearance: Present: cooperative, no acute distress - Respiratory Details: Lungs sounds diminished bilaterally. Respirations even, nonlabored. Currently on room air with oxygen saturation 100%. Able to achieve 1250 mL on his incentive spirometry. Effective cough. - Cardiovascular Details: S1, S2 present. Regular rate and rhythm, sinus rhythm on telemetry. Sternum stable. Palpable peripheral pulses bilaterally. No edema present. No calf pain or tenderness noted. Antiembolism stockings, SCDs present. - Gastrointestinal Gastrointestinal Comment(s): Abdomen soft, nontender, nondistended. Active bowel sounds 4 quadrants. Tolerating diet. - Genitourinary Genitourinary Comment(s): He continues to void. - Integumentary Integumentary Comment(s): Skin is warm and dry. Anterior chest incision well approximated and covered with dry intact dressing. DuoDERM present to coccyx. Dressing present to left scapular area. - Neurologic Neurologic: Present: CNII-XII intact - Musculoskeletal Musculoskeletal: Present: gait normal, strength equal bilaterally - Psychiatric Psychiatric: Present: A&O x's 3, appropriate affect, intact judgment & insight - Allied health notes Allied health notes reviewed: nursing - Labs CBC & Chem 7: 10/04/17 05:46 10/04/17 05:46 Labs: Abnormal Lab Results - Last 24 Hours (Table) 10/04/17 10/04/17 Range/Units 05:46 05:46 RBC 2.89 L (4.30-5.90) m/uL Hgb 8.0 L (13.0-17.5) gm/dL Hct 27.1 L (39.0-53.0) % MCHC 29.6 L (31.0-37.0) g/dL RDW 17.4 H (11.5-15.5) % Plt Count 549 H (150-450) k/uL PT 22.8 H (9.0-12.0) sec INR 2.5 H (<1.2) Assessment and Plan (1) Acute and chronic respiratory failure with hypoxia Current Visit: Yes Status: Acute Code(s): J96.21 - ACUTE AND CHRONIC RESPIRATORY FAILURE WITH HYPOXIA SNOMED Code(s): 27110467 (2) COPD (chronic obstructive pulmonary disease) Current Visit: Yes Status: Chronic Code(s): J44.9 - CHRONIC OBSTRUCTIVE PULMONARY DISEASE, UNSPECIFIED SNOMED Code(s): 83794571 (3) Chronic kidney disease, stage III (moderate) Current Visit: Yes Status: Chronic Code(s): N18.3 - CHRONIC KIDNEY DISEASE, STAGE 3 (MODERATE) SNOMED Code(s): 835196453 (4) Gangrenous toe Current Visit: Yes Status: Chronic Code(s): I96 - GANGRENE, NOT ELSEWHERE CLASSIFIED SNOMED Code(s): 015975814 (5) History of bradycardia Current Visit: No Status: Resolved Code(s): Z86.79 - PERSONAL HISTORY OF OTHER DISEASES OF THE CIRCULATORY SYSTEM SNOMED Code(s): 085441910270595 (6) History of coronary artery disease Current Visit: No Status: Resolved Code(s): Z86.79 - PERSONAL HISTORY OF OTHER DISEASES OF THE CIRCULATORY SYSTEM SNOMED Code(s): 977769944 (7) History of depression Current Visit: Yes Status: Chronic Code(s): Z86.59 - PERSONAL HISTORY OF OTHER MENTAL AND BEHAVIORAL DISORDERS SNOMED Code(s): 850898047 (8) Hypertension Current Visit: Yes Status: Chronic Code(s): I10 - ESSENTIAL (PRIMARY) HYPERTENSION SNOMED Code(s): 89791592 (9) Hypothyroidism Current Visit: Yes Status: Chronic Code(s): E03.9 - HYPOTHYROIDISM, UNSPECIFIED SNOMED Code(s): 49593637 (10) Peripheral vascular disease Current Visit: Yes Status: Chronic Code(s): I73.9 - PERIPHERAL VASCULAR DISEASE, UNSPECIFIED SNOMED Code(s): 436965017 (11) Carotid artery stenosis Current Visit: Yes Status: Chronic Code(s): I65.29 - OCCLUSION AND STENOSIS OF UNSPECIFIED CAROTID ARTERY SNOMED Code(s): 22388846 (12) Mitral valve regurgitation Current Visit: Yes Status: Chronic Code(s): I34.0 - NONRHEUMATIC MITRAL ( VALVE) INSUFFICIENCY SNOMED Code(s): 36732403 (13) History of chronic atrial fibrillation Current Visit: Yes Status: Chronic Code(s): Z86.79 - PERSONAL HISTORY OF OTHER DISEASES OF THE CIRCULATORY SYSTEM SNOMED Code(s): 016520360 Plan: 1. Continue low-dose aspirin, statin, Fausto, beta skylar. 2. Continue amiodarone for A. fib prophylaxis. 3. Encourage incentive spirometry use 10 times every hour. Encourage continued smoking cessation. 4. Continue oral Lasix per nephrology recommendations. 5. Will continue to dose Coumadin daily for anticoagulation based on PT/INR. Upon discharge Coumadin dosing will be managed by [facility]. 6. Avoid nephrotoxic agents. 7. GI/DVT prophylaxis. 8. Blood sugar management per primary care service. 9. Increase activity, ambulate as tolerated. PT/OT/cardiac rehab following. 10. More recommendations to follow. Anticipate discharge to inpatient rehab later today. Time with Patient: Greater than 30
[2017-10-04 11:43] VITALS: RESP 18
[2017-10-04] MEDS: LISINOPRIL 2.5 MG TAB PO SCH (11:47)
--- NOTE | 2017-10-04 11:48 | P.PN ---
Subjective Progress Note Date: 10/04/17 Principal diagnosis: Respiratory failure Progress note dated 09/11/2017 This is a 62-year-old black male who was admitted on September 06. He apparently was initially admitted with a diagnosis of sepsis with a gangrenous toe. He started in the ER went to the general medical floor and 18 was called because of respiratory failure and acidosis. He that reason he was intubated on September 06 and transferred to the ICU. He was extubated initially on September 08 and then reintubated again on September 11. This was today at 4:00 in the morning. The patient's x-ray shows diffuse bilateral infiltrates worse on the right than on the left side. His current ventilator settings include the assist control mode, rate of 12, an FiO2 of 70%, tidal Byam of 500, PEEP of 10. Arterial blood gases show a PaO2 of 88 a PaCO2 of 37 and a pH of 7.36. His current IVs include a saline IV at 20 mL an hour, heparin via weightbase protocol for atrial fibrillation propofol at 35 mics per kilogram per minute and Cordarone at 0.5 mg/m. The patient's x-rays labs medications are all reviewed. Microbiology is all negative. I asked the nurse to resume his tube feeds. Progress note dated September 12 2017 62-year-old black male who was admitted on September 06. He apparently was initially admitted with a diagnosis of sepsis with a gr gangrenous toe. He started in the ER want to the general medical floor and a rapid response was called because of respiratory failure and severe acidosis. He was intubated on September 06 and transferred to the intensive care unit. He was initially extubated on September 08 and then reintubated again on September 11. That was at 4 :00 in the morning. My partner was called. His chest x-ray yesterday showed diffuse bilateral pulmonary infiltrates worse on the right than on the left. We made some changes yesterday. The patient's chest x-ray today is much improved suggesting that he has mostly pulmonary edema/heart failure. In fact, the echocardiogram did reveal evidence of severe mitral regurgitation. The patient clinically is much better today. We are going to have the vascular service surgeon see him about the great toe. Likely, thoracic surgery would not want to do anything if there was active infection. The patient's FiO2 was dropped from 50-40%. In addition, we'll be able to make some significant PEEP changes today.His current vent settings are the assist control mode rate of 22 tidal volume 400 FiO2 40% and PEEP of 13. The PEEP can probably be dropped down from 13-10 later today. Arterial blood gases show a PaO2 of 177 a PaCO2 of 41 and a pH of 7.35. His is consistent with a very mild metabolic acidosis. The patient's on heparin via weightbase protocol, propofol at 45 mics per kilogram per minute dopamine which is currently off started earlier this morning for bradycardia a saline IV at 20 mL an hour and vital high protein at 56 with a goal of 56 mL per hour. Progress note dated 09/13/2017 62-year-old black male who was admitted on September 06. He was initially admitted with a diagnosis of sepsis with a gangrenous toe. He was initially admitted from the ER to the general medical floor and then subsequent to that a rapid response was called because of respiratory failure and severe metabolic acidosis. He was intubated later on September 06 and was transferred to the ICU. He was initially extubated on and then reintubated again early in the morning of September 11 for respiratory failure. His chest x-ray showing waxing waning diffuse bilateral pulmonary infiltrates. These infiltrates, likely represent heart failure, but could also relate to pneumonia/ acute lung injury. The patient's echocardiogram did reveal severe mitral regurgitation. Cardiology is looking into that. Also, we have vascular surgeon looking at the gangrenous toe. The patient's FiO2 was dropped from 50 to 40%. In addition, the PEEP was dropped recently from 13-10 8. Arterial blood gases are reviewed. He is on the assist control mode with a rate of 22. Tidal Byam is 400. Other than that, the patient seems to be doing about the same. I did speak to the infectious disease lean process deployment consultant as well as a cardiology consult about this patient. Progress note dated 09/14/2017 62-year-old black male who was admitted back on September 06. He was initially admitted with a diagnosis of sepsis and a gangrenous toe. Vascular surgery saw the patient yesterday and determined that he had dry gangrene and no debridement or amputation was necessary. The patient was initially admitted from the emergency room to the general medical floor and subsequent to that a rapid response team was called because of respiratory failure and severe metabolic acidosis. He was moved he was intubated later on September 06 and was transferred to the ICU. The patient was then initially extubated on September 08 and the reintubated again early in the morning on September for respiratory failure. His pattern has been that of flash pulmonary edema although, acute lung injury/nosocomial pneumonia, could not be excluded. Mostly though, we believe it relates to heart failure from a case of severe mitral regurgitation. The patient underwent transesophageal echocardiogram this morning and was determined to have severe mitral regurgitation and thought to have an ejection fraction of 25%. He is scheduled for heart catheterization on September 15 and the patient will be seen by cardiothoracic surgery. Currently he is on IV heparin via weightbase protocol propofol at 45 mics per kilogram per minute, Cordarone at 0.5 mg/m Cardizem drip at 10 mg an hour saline IV at 20 mL an hour and vital high protein at 56 mL an hour with a goal of 56. The patient's vent settings include the assist control mode rate of 22 tidal volume of 400 FiO2 40% and PEEP of 5. Blood gases show a PaO2 of 103 a PaCO2 of 36 and a pH 7.45. This is consistent with mild respiratory alkalosis. The patient probably could be extubated. But because she is having a heart cath tomorrow, my inclination is to keep monitoring ventilator until then. Progress note dated 09/15/2017 62-year-old black male admitted back on September 06. The patient was initially admitted with a diagnosis of sepsis and a gangrenous toe. Vascular surgery seems to think that the toe represents dry gangrene and no additional debridement or amputation is necessary. The patient initially presented to the emergency room with an into the general medical floor. A rapid response was called. The patient developed respiratory failure and severe metabolic acidosis. He was moved to the ICU and intubated on September 06. He was extubated initially on in the reintubated early in the morning on September 11 for respiratory failure. His pattern has been that of a flash pulmonary edema. The patient also may be having a component of acute lung injury/nosocomial pneumonia. Anyway, the pulmonary edema is likely related mostly to card and myopathy as well as severe mitral regurgitation. The patient had a transesophageal echocardiogram yesterday and is going for cardiac catheterization today. The patient was maintained on mechanical ventilator because he was going for catheterization today. Hopefully, we can get him extubated later today. This depends on what is done. Currently, the patient's on the ventilator with the assist control mode rate of 22 breathing 24 times a minute, tidal volume of 400 FiO2 40% PEEP of 5. Arterial blood gases show a PaO2 of 98 a PaCO2 of 35 and a pH of 7.41. The patient's on a saline IV at KVO heparin is been turned off the Cardizem drip is running at 10 mg an hour and tube feeds are on hold. The patient's chest x-ray reveals some mild fluid overload. All in all though, the patient's much more stable. I have been turned to the family all along the fact, the family member is one of my primary patient to my office. This is the patient's nephew. Progress note dated 09/16/2017 62-year-old black male status post respiratory failure. The patient was extubated this morning. The patient had excellent weaning parameters and blood gases. We attempted yesterday to extubate the patient but he really wasn't ready for extubation. We did extubate him to BiPAP. He is on BiPAP at 12 and 5 and 40%. The patient was initially admitted back on September 06 with an episode of sepsis and a gangrenous toe. Because of worsening respiratory status , on the general medical floor, a rapid response team was called. The patient' s respiratory failure led him to be intubated and transferred to the ICU on September 06. He was initially extubated on seb second and reintubated on the morning of September 11. He is finally extubated today on September 16. The patient had a transesophageal echocardiogram which suggested poor cardiac function with an ejection fraction to be estimated at 20-25% and severe mitral regurgitation. The patient subsequently had a cardiac cardiac catheterization which revealed no evidence of coronary artery disease and again severe mitral regurgitation. The patient is apparently going to have a mitral valve replacement/repair done midweek by one of the cardiothoracic surgeons. Currently, the patient's on BiPAP at 12 and 5 and 40%. His chest x-ray shows fluid overload so he'll get some additional Lasix. His IV is a saline IV at KVO a Cardizem drip at 5 mg an hour Cordarone at 0.5 mL/m heparin via weightbase protocol and his tube feeds are currently off. He seemed pretty comfortable and there. Progress note dated 09/17/2017 62-year-old black male status post respiratory failure. He was extubated a couple days ago. Doing relatively well. The patient will likely have mitral valve repair/replacement midweek. The patient currently is just on some nasal O2. The patient had an uneventful night. The patient has no complaints today. The patient was initially admitted back on September 06 with an episode of respiratory failure. I rapid response team was called and the patient's respiratory failure led to intubation and transferred to the intensive care unit on September 06. He was initially extubated on September 08 and reintubated on the morning of . He was finally extubated on September 16. He had a transesophageal echocardiogram which showed severe mitral regurgitation. He sought to have an ejection fraction of about 20-25%. According to cardiac catheterization revealed no significant coronary disease. Again, planning to have mitral valve repair/replacement done midweek. Other than that, the patient is doing reasonably well. Progress note dated September 18, 2017 62-year-old white male status post respiratory failure. The patient has developed on and off flash pulmonary edema primarily from cardiac disease i.e. I severe mitral regurgitation. The patient was extubated a couple days ago by myself. The patient remains here in the ICU. The plan is for him to have either mitral valve repair or replacement on Monday. I the patient's chest x -ray shows worsening pulmonary edema today. He did spend some time on the BiPAP last night. Currently he is on O2 at 5 L by nasal cannula. He is on heparin via weightbase protocol amiodarone at 0.5 mg/m and a Cardizem drip at 10 mg an hour. Is getting also a saline IV and KVO. The patient feels well. Does not appear to have any respiratory distress distress or difficulty. Not coughing or wheezing. No chest pain or chest discomfort. The patient did have a transesophageal echocardiogram which showed severe mitral regurgitation. Also , his ejection fraction was estimated between 20 and 25 %. Finally, a cardiac catheterization revealed no evidence of coronary artery disease. Progress note dated 09/19/2017 62-year-old black male with a history of respiratory failure secondary to severe mitral regurgitation. The patient initially presented with respiratory distress. The patient was found to have significant valvular heart disease in the form of mitral regurgitation. He was also found to have significant cardiomyopathy. The patient was activated a couple days ago. The patient had a transesophageal echocardiogram and cardiac catheterization. Coronaries are clean. Initially the plan was to do surgery this week. It may be pushed off. The patient has a greater than 70% occlusion of the right internal carotid artery and a 50-69% occlusion of the left internal carotid artery. The patient' s currently on heparin via weightbase protocol oxygen at 2 L Cardizem drip at 10 mg an hour amiodarone a 0.5 mg/m saline IV at 20 mL an hour. The patient's overall situation has improved the last couple of days although the chest x-ray does still show some mild fluid overload. The patient was initially admitted on September 06 with an episode of sepsis and gangrenous toe. Because of worsening respiratory status, the patient was transferred to the general medical floor to the ICU where he was intubated. He was initially extubated on September 08 and reintubated on the morning of September 11. He was finally extubated on September 16 has remained off the ventilator. Progress note dated 10/02/2017 62-year-old white male with a history of respiratory failure secondary to severe mitral regurgitation. The patient did have a mitral valve replacement. He is doing relatively well now. Resting comfortably. The patient's on the sixth floor. In addition, he has a history of atrial fibrillation with RVR CAD with previous stent placement history of COPD essential hypertension depression peripheral vascular occlusive disease hypothyroidism hypertensive nephrosclerosis acute cellulitis and dry gangrene of the left big toe bilateral carotid disease and a positive sputum and urine cultures for Enterobacter Klebsiella and E. coli. Not quite sure when the patient will be discharged. The patient otherwise is doing relatively well. The patient still on nasal O2 at couple basic IV. Denies any shortness of breath chest pain chest discomfort. Not coughing up any phlegm or blood. Progress note dated 10/04/2017 62-year-old white male with a history of respiratory failure secondary to severe fluid overload and mitral regurgitation. The patient ended up having a mitral valve replacement. He is likely to be discharged today to one of the nursing homes. The patient seemed to do be doing relatively well. He denies any chest pain or chest discomfort. His breathing is stable. He's been weaned down to room air. He does have history of chronic atrial fibrillation with RVR , CAD with previous stent placement history of COPD essential hypertension depression peripheral last occlusive disease hypothyroidism hypertensive nephrosclerosis acute cellulitis dry gangrene of the left big toe bilateral carotid disease and a positive sputum and urine cultures for Enterobacter Klebsiella and E. coli. Again the patient is doing much better. The patient likely to be discharged to the retirement. Objective - Vital Signs Vital signs: Vital Signs Temp 98.0 F 10/04/17 11:42 Pulse 70 10/04/17 11:42 Resp 18 10/04/17 11:42 BP 115/60 10/04/17 11:42 Pulse Ox 100 10/04/17 11:42 Intake & Output 10/03/17 10/04/17 10/04/17 18:59 06:59 18:59 Intake Total 270 100 Balance 270 100 Weight 73 kg 72.8 kg Intake: IV 10 Invasive Line 3 10 Oral 260 100 Other: Voiding Method Toilet Urinal Urinal Urinal Incontinent # Voids 1 1 # Bowel Movements 0 ABP, PAP, CO, CI - Last Documented Arterial Blood Pressure 123/103 Pulmonary Artery Pressure 49/27 Cardiac Output 6.2 Cardiac Index 3.3 - Exam No acute distress, currently on nasal O2.. HEENT examination is grossly unremarkable. Mucous membranes are moist. No oral lesions. Neck supple. Full range of motion. No adenopathy thyromegaly or neck vein distention. Cardiovascular examination reveals irregular rhythm rate. S1-S2 normal. No S3 or S4. Soft murmur is heard now the patient's extubated. Heart rate 120 Lungs reveal coarse bilateral breath sounds. Breath sounds are diminished. Mild bibasilar crackles. Breath sounds are diminished more on the right side than the left. Abdomen soft bowel sounds are heard. No masses or tenderness. Extremities are intact. No cyanosis clubbing or edema. Skin is without rash or lesion. Neurologic examination is brief but nonfocal - Labs CBC & Chem 7: 10/04/17 05:46 10/04/17 05:46 Labs: Abnormal Lab Results - Last 24 Hours (Table) 10/04/17 10/04/17 Range/Units 05:46 05:46 RBC 2.89 L (4.30-5.90) m/uL Hgb 8.0 L (13.0-17.5) gm/dL Hct 27.1 L (39.0-53.0) % MCHC 29.6 L (31.0-37.0) g/dL RDW 17.4 H (11.5-15.5) % Plt Count 549 H (150-450) k/uL PT 22.8 H (9.0-12.0) sec INR 2.5 H (<1.2) Assessment and Plan Assessment: Assessment Status post mitral valve replacement for severe mitral regurgitation. Acute hypoxemic respiratory failure secondary to sepsis/septic shock with a gangrenous toe and underlying cellulitis. Possible bilateral nosocomial pneumonia vs. acute lung injury Atrial fibrillation/RVR Congestive heart failure, secondary to severe mitral regurgitation and cardiomyopathy with an ejection fraction of 25% Intermittent sinus bradycardia History of CAD with previous stent placement History of COPD History of essential hypertension History of depression Peripheral vascular occlusive disease Hypothyroidism Hypertensive nephrosclerosis with chronic kidney disease, stage III Acute cellulitis and dry gangrene of the left big toe, status post debridement Bilateral carotid disease, worse on the right with a greater than 70% obstruction Plan: Plan dated 09/11/2017 The patient developed acute respiratory failure early this morning. My partner was called. He was reintubated. I'll make a slight change in the vent settings. We'll go with a low titer volume strategy. We'll drop a tidal volume from 500-400. We'll bump the rate from 16-24. PEEP will be increased from 10-13. I will review the labs x-rays a medications. We'll resume tube feeds. Prognosis is poor. Additional recommendations and suggestions are forthcoming. Plan dated 09/12/2017 Vascular surgery will come in to see the patient today.Labs x-rays a medications are all reviewed. The dopamine is now off. It was started for bradycardia. The patient's FiO2 was dropped from 50-40%. Likely will be able to make some PEEP changes as well. Chest x-ray is dramatically improved. We' ll continue to follow closely. Prognosis is guarded. The mitral valve issue is certainly likely the cause of the patient's flash pulmonary edema. He may even have mitral valve endocarditis. Plan dated 09/13/2017 The patient was seen by vascular surgery this morning. The surgeon feels like this is a dry gangrene and nothing active going on and no additional debridement or amputation is required. We'll let the infectious disease doctor know. The PEEP was dropped from 10 to 8. Gases are reviewed. His P/F ratio is 235 indicating mild ARDS. The chest x-ray is improved. Most of his issues in the lungs related to congestive heart failure because of the severe mitral regurgitation. We'll talk to cardiology about a CLARE as well as thoracic surgery about possible mitral valve repair/replacement. Plan dated 09/14/2017 The patient had his transesophageal echocardiogram today. His ejection fraction was estimated at 25% and he has severe mitral regurgitation. The patient scheduled for heart catheterization tomorrow. The patient will be maintained on the ventilator since then. Blood gases are reasonable. Chest x- rays improved although he did still has a pattern of some mild fluid overload. The patient remains on IV heparin via weightbase protocol propofol Cordarone and Cardizem and his tube feeds. Overall prognosis is poor. We'll continue to watch patient very closely. Additional recommendations and suggestions are forthcoming. Plan dated 09/15/2017 The patient is scheduled for a cardiac catheterization this morning. He had a transesophageal echocardiogram yesterday. His estimated ejection fraction was only 20-25% and he has Severe mitral regurgitation. The patient is maintained on mechanical ventilator. Labs x-rays a medications are all reviewed. No additional recommendations are made. Prognosis is guarded. We'll continue to follow closely. Plan dated 09/16/2017 The patient's of doing reasonably well. He was extubated this morning. His weaning parameters blood gases and so forth were all excellent. He passes cuff leak test. He maintains on Cardizem drip at 5 mg an hour amiodarone 0.5 mg/m and heparin via weightbase protocol. 2 feeds off. Ready to give him some additional Lasix. We'll watch him very closely. The plan is to do mitral valve repair/replacement midweek. Plan dated 09/17/2017 The patient's labs medications and x-rays are all reviewed. The patient's x- ray has significantly improved. He did receive some diuretics yesterday. The patient will need his carotid evaluated. He'll be gently hydrated for that. The patient still having atrial fibrillation. Currently on nasal O2. The patient looks much better today than he has since had been seeing him in the last the plan is mitral valve repair/replacement midweek. No additional recommendations are made. Plan dated 07/18/2018 The patient's doing well today. Chest x-ray shows a bit worsening of his underlying heart failure. The patient did spend a bit of time on BiPAP last night. Currently on nasal O2 at 5 L. Also receiving his IV heparin amiodarone and Cardizem drip for his irregular heart rate. We'll continue to follow closely. Prognosis is guarded. Anticipated mitral valve appeared/replacement on Monday. Plan dated 09/19/2017 The patient's doing reasonably well. His only on 2 L nasal cannula. Did not require BiPAP last night. I did speak to the cardiothoracic surgeon this morning. I think his feeling is to go ahead and have the patient's rhythm and rate controlled bit better. The patient remains on IV Cardizem and amiodarone. The surgeon feels that the right carotid disease should be dealt with. The patient's respiratory status has remained stable the last couple of days. He remains on IV heparin. Cardiology and cardiothoracic surgery need to get together formulate a plan. Labs x-rays a medications are all reviewed. Time spent with patient 36 minutes Plan dated 10/02/2017 The patient seemed be doing relatively well. The patient just on some nasal O2 and a basic IV. Denies any shortness breath chest pain chest discomfort phlegm production. No fever or chills. The patient has no particular complaints today. Hoping to be discharged soon. Rehab facility. We'll continue to follow. Plan dated 09/26/2017 The patient's doing well. Hopefully discharge today. We'll continue to follow closely. We'll make sure he has follow-up in the office. I believe he'll see my partner. No additional recommendations are made. Prognosis is guarded. Time with Patient: Less than 30
--- NOTE | 2017-10-04 12:02 | PN ---
PROGRESS NOTE DATE OF SERVICE: 10/04/2017 REASON FOR FOLLOWUP: 1. Enterobacter pneumonia. 2. Left first and second toe wound cellulitis. INTERVAL HISTORY: The patient did have a low-grade fever last night of 100.5 and 100 at midnight. However, the patient is afebrile since then. Apparently, he did have a fall this morning. The patient denies having any chest pain or shortness of breath or any cough. No abdominal pain. No problem with urine. No pain in the left foot area. PHYSICAL EXAMINATION: On examination, blood pressure is 118/67 with a pulse of 76, temperature 98.2. He is 100% on room air. General description is a middle aged male up in the bed in no distress RESPIRATORY SYSTEM: Unlabored breathing. Some decreased breath sounds at the bases. No wheeze. HEART: S1, S2. Regular rate and rhythm. ABDOMEN: Soft, no tenderness. Left foot dressed, no drainage on the dressing. LABS: Hemoglobin is 8 with the white count 9.4. BUN of 14, creatinine 0.96. DIAGNOSTIC IMPRESSION AND PLAN: 1. Patient with Enterobacter pneumonia treated. He was taken off the antibiotic as of yesterday because of concern of drug interaction with amiodarone. Did have a low-grade fever last night; however, the patient is currently afebrile. He is saturating 100% on room air and his white count normal. We will continue monitor closely. If any new fever, culture and adjust antibiotic for further. Discussed with the nurse practitioner for the cardiothoracic surgery. 2. Left foot wound to be treated with Aquacel silver dressing. Keep the area dry. MMODL / IJN: [id number] /
--- NOTE | 2017-10-04 13:27 | P.DS ---
Providers Date of admission: 09/05/17 13:24 Expected date of discharge: 10/04/17 Attending physician: Lashae Huddleston Consults: 09/05/17 12:00 Consult Physician Stat Consulting Provider: Trevor Addison Consult Reason/Comments: Peripheral vascular disease, gangrenous toe Do you want consulting provider notified?: Yes 09/05/17 22:58 Consult Physician Routine Consulting Provider: Ace Rico Consult Reason/Comments: left toe infection Do you want consulting provider notified?: Yes 09/06/17 14:28 Consult Physician Stat Consulting Provider: Jesús Gordon Consult Reason/Comments: bradycardic Do you want consulting provider notified?: Yes 09/06/17 15:21 Consult Physician Stat Consulting Provider: Riya Barone Consult Reason/Comments: ICU management, Lactic Acid 7.1 Do you want consulting provider notified?: Yes 09/07/17 11:04 Consult Physician Stat Consulting Provider: Yuriy Bhatti Consult Reason/Comments: Increased CR Do you want consulting provider notified?: Yes 09/13/17 11:17 Consult Physician Stat Consulting Provider: Carl Banks Consult Reason/Comments: Severe mitral valve regurgitation Do you want consulting provider notified?: Already Contacted 09/14/17 13:23 Consult Physician Routine Consulting Provider: Guerda Lucas Consult Reason/Comments: Preoperative dental clearance cardiac surgery Do you want consulting provider notified?: Yes 09/24/17 13:43 Consult to Anesthesia Routine Consulting Provider: Anesthesia,Services Consult Reason/Comments: Cardiac Surgery Pre-Op 09/25/17 13:27 Consult Physician Routine Consulting Provider: Federico Alston Consult Reason/Comments: medical management Do you want consulting provider notified?: Already Contacted 09/28/17 10:11 Consult Physician Routine Consulting Provider: Audi Thapa Consult Reason/Comments: inpatient rehab Do you want consulting provider notified?: Yes Primary care physician: Elana Mccormack - [place] Diagnosis(es) (1) Acute and chronic respiratory failure with hypoxia Current Visit: Yes Status: Acute (2) COPD (chronic obstructive pulmonary disease) Current Visit: Yes Status: Chronic (3) Chronic kidney disease, stage III (moderate) Current Visit: Yes Status: Chronic (4) Gangrenous toe Current Visit: Yes Status: Chronic (5) History of bradycardia Current Visit: No Status: Resolved (6) History of coronary artery disease Current Visit: No Status: Resolved (7) History of depression Current Visit: Yes Status: Chronic (8) Hypertension Current Visit: Yes Status: Chronic (9) Hypothyroidism Current Visit: Yes Status: Chronic (10) Peripheral vascular disease Current Visit: Yes Status: Chronic (11) Carotid artery stenosis Current Visit: Yes Status: Chronic (12) Mitral valve regurgitation Current Visit: Yes Status: Chronic (13) History of chronic atrial fibrillation Current Visit: Yes Status: Chronic Hospital Course: FINAL DIAGNOSIS: 1. Rheumatic traumatic mitral valve disorder, severe mitral valve regurgitation 2. Mild aortic valve regurgitation 3. Mild to moderate left ventricular dysfunction, EF 40% on preoperative CLARE 4. Preoperative pneumonia with sputum culture positive for Enterobacter cloacae and Klebsiella oxytoca 5. Preoperative urinary tract infection with urine culture positive E. coli 6. Peripheral vascular disease with right great toe gangrene 7. Chronic obstructive pulmonary disease 8. Moderate to severe right ICA stenosis 9. History of chronic persistent atrial fibrillation 10. History of depression 11. Chronic nicotine dependence 12. Chronic kidney disease stage III 13. Hypertension 14. Coronary artery disease with previous stent placement 15. GERD 16. Hypothyroidism 17. Status post cardiac arrest with reintubation for flash pulmonary edema PRINCIPAL PROCEDURE: 1. Left heart catheterization 2. Carotid angiogram 3. Urgent chordal-preserving mitral valve replacement using a 27 mm pericardial Magna Ease 4. Bi-atrial full Albert maze procedure using radiofrequency and cryoablation 5. Exclusion of the left atrial appendage using a 40 mm AtriClip 6. Intraoperative transesophageal echocardiogram 7. Epi-aortic scanning HISTORY OF PRESENT ILLNESS: This 62-year-old gentleman initially presented to [facility] for complaints of left foot pain and swelling, mainly to his left great toe. He was admitted for further treatment and evaluation. After a couple of days he suddenly became unresponsive, bradycardic with a heart rate in the 30s and hypotensive. ACLS protocols were initiated and the patient was intubated and subsequently transferred to the intensive care unit unit for further hemodynamic monitoring. While in the intensive care unit he developed paroxysmal atrial fibrillation, which he does have a history of and for which he was previously taking Xarelto for. He was extubated to BiPAP but needed to be reintubated shortly thereafter as he went into flash pulmonary edema. He did have a 2-D echocardiogram demonstrating normal LV function with an ejection fraction between 55 and 60%, moderate aortic valve regurgitation, severe mitral valve regurgitation, and mild tricuspid valve regurgitation. Subsequently he underwent a CLARE which demonstrated severe mitral valve regurgitation with a flail anterior leaflet in a severely impaired left ventricular function with ejection fraction of 30-35%. At that time cardiothoracic surgery was consulted for surgical recommendations. Initially our plan was to allow medicine, pulmonary, vascular and infectious disease to provide maximal medical therapy and to hold off on mitral valve surgery. He was discovered to have left greater than right moderate plaque with possible hemodynamically significant plaque in the left internal carotid artery on carotid Dopplers. Subsequently a CT angiogram of the neck was completed demonstrating severe stenosis of the right internal carotid artery estimated to be greater than 70%, and 50-69% left internal carotid artery stenosis. The plan was for his right carotid artery to be stented prior to mitral valve surgery, however upon completion of carotid angiogram it was not felt that the carotid disease was significant enough for carotid revascularization and the recommendation was for medical management. The patient was again extubated, subsequently went into flash pulmonary edema again, and was reintubated. It was felt that the nature of his pulmonary edema was related to his mitral valve, therefore Dr. Huddleston determined that mitral valve surgery was necessary during this hospitalization and could not wait for treatment at a later time. HOSPITAL COURSE: On 09/25/2017, the patient was taken to the preoperative area, prepared in the usual fashion, and subsequently taken to the operating room where Dr. Huddleston performed an urgent chordal-preserving mitral valve replacement using a 27 mm pericardial magna ease, bi-atrial full Albert maze procedure using radiofrequency and cryoablation, exclusion of the left atrial appendage using a 40 mm AtriClip, intraoperative transesophageal echocardiogram , and epi-aortic scanning. Upon completion of surgery the patient was transferred to the cardiovascular intensive care unit where he was recovered, monitored hemodynamically, and where he progressed to cardiac rehabilitation phase 1. He was extubated, all lines, tubes, and drips were discontinued when appropriate, and he was transferred to [address] [place] [address] for further monitoring and rehabilitation. His oxygen was titrated down, he continued to work with physical therapy, and he was ready to be discharged to inpatient rehab on postoperative day #9 as we felt he was still too weak to go home and we were concerned regarding his fall risk given the fact that he was on Coumadin. He received written and verbal instruction regarding his medications , activity restrictions, signs and symptoms requiring physician notification, and follow-up appointments. COMPLICATIONS: The patient experienced no postoperative complications. Patient Condition at Discharge: Fair Plan - Discharge Summary Discharge Rx Participant: No New Discharge Prescriptions: New Acetaminophen Tab [Tylenol] 650 mg PO Q6HR PRN tab PRN Reason: Fever And/ Or Pain Amiodarone [Cordarone] 200 mg PO DAILY tab Aspirin 81 mg PO DAILY chew Atorvastatin [Lipitor] 40 mg PO HS tab Bisacodyl [Dulcolax] 10 mg RECTAL DAILY PRN supp PRN Reason: Constipation Furosemide [Lasix] 40 mg PO DAILY tab HYDROcodone/APAP 5-325MG [[place] 5-325] 1 - 2 each PO Q6HR PRN #60 tab PRN Reason: Moderate Pain Ipratropium-Albuterol Nebulize [Duoneb 0.5 mg-3 mg/3 ml Soln] 3 ml INHALATION RT-QID ampul.neb Ipratropium-Albuterol Nebulize [Duoneb 0.5 mg-3 mg/3 ml Soln] 3 ml INHALATION RT-Q2H PRN ampul.neb PRN Reason: Shortness Of Breath Or Wheezing Lisinopril [Zestril] 2.5 mg PO DAILY@1200 tab Metoprolol Tartrate [Lopressor] 12.5 mg PO BID tab Nicotine 21Mg/24Hr Patch [Habitrol] 1 patch TRANSDERM DAILY patch Sennosides-Docusate Sodium [Senokot-S] 2 each PO HS tab Warfarin [Coumadin] 1 mg PO ONCE@1800 tab Continue FLUoxetine HCL [PROzac] 20 mg PO DAILY Levothyroxine Sodium [Synthroid] 25 mcg PO DAILY Pantoprazole [Protonix] 40 mg PO AC-BRKFST #30 tablet.dr Discontinued Apixaban [Eliquis] 5 mg PO BID tab LORazepam [Ativan] 0.5 mg PO Q8HR PRN #20 tab PRN Reason: Anxiety Metoprolol Tartrate [Lopressor] 25 mg PO TID #90 tab Cephalexin [Keflex] 500 mg PO Q8HR #30 cap HYDROcodone/APAP 5-325MG [[place] 5-325] 1 tab PO Q6HR PRN PRN Reason: Pain Discharge Medication List FLUoxetine HCL [PROzac] 20 mg PO DAILY 08/20/15 [History] Levothyroxine Sodium [Synthroid] 25 mcg PO DAILY 03/26/15 [History] Pantoprazole [Protonix] 40 mg PO AC-AUDIEKFST #30 tablet. 08/29/17 [Rx] Acetaminophen Tab [Tylenol] 650 mg PO Q6HR PRN tab 10/04/17 [Rx] Amiodarone [Cordarone] 200 mg PO DAILY tab 10/04/17 [Rx] Aspirin 81 mg PO DAILY chew 10/04/17 [Rx] Atorvastatin [Lipitor] 40 mg PO HS tab 10/04/17 [Rx] Bisacodyl [Dulcolax] 10 mg RECTAL DAILY PRN supp 10/04/17 [Rx] Furosemide [Lasix] 40 mg PO DAILY tab 10/04/17 [Rx] HYDROcodone/APAP 5-325MG [[place] 5-325] 1 - 2 each PO Q6HR PRN #60 tab 10/04/17 [ Rx] Ipratropium-Albuterol Nebulize [Duoneb 0.5 mg-3 mg/3 ml Soln] 3 ml INHALATION RT -Q2H PRN ampul.neb 10/04/17 [Rx] Ipratropium-Albuterol Nebulize [Duoneb 0.5 mg-3 mg/3 ml Soln] 3 ml INHALATION RT -QID ampul.neb 10/04/17 [Rx] Lisinopril [Zestril] 2.5 mg PO DAILY@1200 tab 10/04/17 [Rx] Metoprolol Tartrate [Lopressor] 12.5 mg PO BID tab 10/04/17 [Rx] Nicotine 21Mg/24Hr Patch [Habitrol] 1 patch TRANSDERM DAILY patch 10/04/17 [Rx] Sennosides-Docusate Sodium [Senokot-S] 2 each PO HS tab 10/04/17 [Rx] Warfarin [Coumadin] 1 mg PO ONCE@1800 tab 10/04/17 [Rx] Follow up Appointment(s)/Referral(s): Riya Barone MD [STAFF PHYSICIAN] - 10/12/17 2:00 pm Lashae Huddleston MD [STAFF PHYSICIAN] - 10/27/17 10:45 am Elana Mccormack MD [Primary Care Provider] - 10/12/17 10:00 am Yuriy Bhatti DO [STAFF PHYSICIAN] - 2 Weeks Trevor Addison MD [STAFF PHYSICIAN] - 4 Weeks Bradford Godoy MD [STAFF PHYSICIAN] - 10/17/17 10:15 am Ambulatory/Diagnostic Orders: Complete Blood Count w/diff [LAB.AMB] Time Frame: 3 Days, Facility: [facility], Location: Laboratory Department Comprehensive Metabolic Panel [LAB.AMB] Time Frame: 3 Days, Facility: [facility], Location: Laboratory Department Prothrombin Time INR [LAB.AMB] Time Frame: 3 Days, Location: Determined By Patient Patient Instructions/Handouts: Mitral Valve Replacement (DC) Activity/Diet/Wound Care/Special Instructions: DISCHARGE INSTRUCTIONS: 1. No driving for 4 weeks, or until physician gives their ok. 2. The patient should sleep in their own bed, no medical bed needed. 3. Stairs are not an issue. If the bedroom is upstairs, it is advised that the patient go up at night and down in the morning for the first week. Go slowly, using handrail and take 1 step at a time. 4. SARMAD hose are to be worn for 30 days or until physician discontinues. 5. Heart hugger is to be worn 100% of the time until physician discontinues.( except when showering) 6. No lifting, pushing, or pulling more than 10 pounds for 12 weeks. The physician will advise of any restriction changes. 7. The patient is expected to continue the prescribed walking program. 8. Continue pain control per as needed orders. 9. Continue with incentive spirometry and splinting/heart hugger until otherwise directed by the physician. 10. Must shower daily using liquid antibacterial soap and a separate white washcloth for each individual incision. 11. Routine sternal incision care. No powders, lotions, ointments on incisions. 12. Please call surgeon/QUALITY TECHNICIAN FIBERGLASS for temp greater than 101 F or purulent drainage from incisions. 13. All prescriptions given by surgeon for 30 days. Refills need to be filled through refractory mixer/primary care physician. REHAB/HOME HEALTH SERVICES TO PROVIDE: RN SKILLED HOME CARE SERVICES FOR POST-OP SURGICAL PATIENTS WITH THE FOLLOWING: Coronary Artery Bypass Surgery (CABG), Mitral Valve Replacement/ Repair ( MVR), Aortic Valve Replacement/Repair (AVR) RN TO CONTINUE EDUCATION FROM ``ROAD TO A HEALTH HEART PATIENT EDUCATION MANUAL (GIVEN TO PATIENT IN THE HOSPITAL) MEDICATION RECONCILIATION WITH EDUCATION NEEDED ON FIRST HOME VISIT EMPHASIZE IMPORTANCE OF WEARING BREAST SUPPORT/HEART HUGGER ENCOURAGE USE OF INCENTIVE SPIROMETER 10 X EVERY HOUR WHILE AWAKE ENCOURAGE UTILIZATION OF LOWER EXTREMITY COMPRESSION STOCKINGS/SARMAD HOSE and ELEVATE LEGS ABOVE LEVEL OF HEART WHILE AT REST. ENCOURAGE AMBULATION 3-5x/day INCREASING TOLERATES, WHILE AVOID EXTREMES IN TEMPERATURE FREQUENCY: RN TO OPEN THE PATIENT WITHIN 24 HOURS OF DISCHARGE FROM THE HOSPITAL /REHAB WITH TELEHEALTH INSTALLED AT [facility], RN TO VISIT 2-3 X A WEEK FOR 4 WEEKS ESTABLISHED BY PATIENT NEEDS. REMOVAL OF SUTURES: NURSING SERVICES TO REMOVE SUTURES TWO WEEKS POST SURGICAL DATE October 09, 2017. If any questions regarding suture removal please call the office at [phone]. LABORATORY: CBC, CMP TO BE DRAWN ON THE THIRD DAY HOME, Monday, October 07, 2017 (RAN STAT) FAX RESULTS TO [phone]. For patients on Coumadin, PT/INR to be drawn Saturday October 07, 2017, ran as STAT, and results faxed to [facility] at [phone] for Coumadin dosing. TELEHEALTH PARAMETERS: WEIGHT: NOTIFY MD OF WEIGHT GAIN OF 2 LBS IN 24 HOURS OR 5 LBS IN ONE WEEK HR: NOTIFY MD OF HR <55 BPM OR HR>100 BPM BP: NOTIFY MD IF BP <90/55 OR BP>140/100 O2 SAT: NOTIFY MD IF PO2<93% ON ROOM AIR SEND TELEHEALTH REPORT TO SNUFF GRINDER AND SCREENER AND CARDIOVASCULAR SURGEON THE FIRST WEEK OF CARE AND THEN BI-WEEKLY. PLEASE ADDITIONALLY COMMUNICATE ANY ABNORMALS AND NEW FINDINGS TO THE SURGEONS OFFICE. A Red armband has been placed on the patient. It should be worn for 30 days post surgery and will be removed by the cardiac surgeons. If an ER visit is necessary, please make sure the number on the Red armband is called. Discharge Disposition: DC/TRNS INTERMEDIATE CARE FAC
[2017-10-04 15:02] VITALS: BP 125/63; TEMP 98.3
--- NOTE | 2017-10-04 15:03 | P.PN ---
Progress Note - Text Progress Note Date: 10/04/17 Presenting complaint: tired Interval history: This is a patient initially admitted with infection of the left big toe. Subsequently had recurrent flash pulmonary edema eventually leading to mitral valve replacement. Also had Maze procedure done. Also being treated for pneumonia. Patient has bilateral carotid artery stenosis-not felt to be critical for any further intervention by Dr. Gordon. Today-sitting up in a chair. Comfortable. Comfortable. No new issues. Review of systems: Was done for constitutional, cardiovascular, GI, pulmonary. relevant finding as above Current medications reviewed that included: Nebulized bronchodilator, aspirin, Lipitor, Diflucan, Synthroid, Zestril, by mouth Cipro, Lopressor, sodium bicarb, Coumadin, by mouth Lasix On examination: VITAL SIGNS: 98, 70, 18, 115/60, 100% room air GENERAL APPEARANCE: comfortable. , Sitting up in a chair HEENT: Normal external appearance of nose and ear. Oral cavity normal EYES: Pupils equal. Conjunctiva normal. NECK: JVD not raised. Mass not palpable. RESPIRATORY: Respiratory effort normal. Decreased breath sounds. CARDIOVASCULAR: First and second sounds normal. No edema. ABDOMEN: Soft. Liver and spleen not palpable. No tenderness. No mass palpable. PSYCHIATRY: Alert and oriented x3. Mood and affect normal. Extremities: Dressing of the left foot Chest wall: Dressing over incision site Investigations: White count 9.4, hemoglobin 8, INR 2.5 Limited 2-D echo showed EF of 55%, moderate aortic regurgitation Assessment: -Severe mitral regurgitation recurrent episodes of flash pulmonary edema status post mitral valve replacement, biatrial modified Albert maze procedure and its exclusion of the left atrial appendix -Recurrent episodes of acute hypoxic respiratory failure requiring ventilator assistance -Paroxysmal atrial fibrillation with rapid ventricular rate currently in sinus rhythm, with Coumadin monitoring -COPD exacerbation in a current smoker -Acute kidney injury likely ATN, secondary to contrast-induced nephropathy now resolved Acute shock liver from hypotension, now resolved -Chronic nicotine dependence and a cigarette smoker -Coronary artery disease with a prior history of stent to LAD -Hypothyroidism -Hyperlipidemia -Peripheral arterial disease -Depression and anxiety not otherwise specified -Bilateral internal carotid artery stenosis. 70% on the right side and 50-60% on the left side not for further intervention by Dr. Gordon -Bilateral pneumonia with organism showing Enterobacter cloacae, and Klebsiella oxytoca -Metabolic acidosis secondary to acute kidney injury -Left foot first and second toe wound and cellulitis -Depression not otherwise specified Moderate aortic regurgitation, non-rheumatic Plan: Care was discussed with the patient. Patient getting transferred to [facility] for inpatient rehab. Continue current medication treatment plan.
--- NOTE | 2017-10-04 15:30 | PN ---
PROGRESS NOTE Status post mitral valve replacement, doing remarkably well. He is in an ectopic atrial rhythm, hemodynamically stable, doing well, ambulating with a walker. Vital signs stable, S1, S2 heard normally. Short systolic murmur noted. Lungs reveal improved air entry. Abdomen is soft. Lower extremities reveal diminished pulses. Rest of physical examination is unchanged. Patient is likely to be discharged to the rehab unit today. He will come back and follow up with Dr. Godoy after discharge. MMODL / IJN: [id number] /
[2017-10-04 16:13] VITALS: PULSE 72
[2017-10-04] MEDS ORDERED: WARFARIN 1 MG TAB PO ONE (18:00)
[2017-10-04] MEDS ORDERED: WARFARIN 3 MG TAB PO ONE (18:00)
== END 2017-10-04 17:07 | DRG 853 ==
LOC: EC 09:31 → 4MS4W 13:24 → 6ICU 09-06 14:57 → 6SEL 09-21 16:46 → 6ICU 09-21 22:22 → 6SEL 09-28 11:14
PROVIDERS: ADMIT Surgery; ATTEND Surgery
PROC: 3E0234Z Introduction of Serum, Toxoid and Vaccine into Muscle, Percutaneous Approach (ICD-10-PCS; principal; 2017-09-05)
PROC: 3E0234Z Introduction of Serum, Toxoid and Vaccine into Muscle, Percutaneous Approach (ICD-10-PCS; 2017-09-05)
PROC: 5A12012 Performance of Cardiac Output, Single, Manual (ICD-10-PCS; 2017-09-06)
PROC: 5A1945Z Respiratory Ventilation, 24-96 Consecutive Hours (ICD-10-PCS; 2017-09-06)
PROC: 0BH17EZ Insertion of Endotracheal Airway into Trachea, Via Natural or Artificial Opening (ICD-10-PCS; 2017-09-06)
PROC: 06HM33Z Insertion of Infusion Device into Right Femoral Vein, Percutaneous Approach (ICD-10-PCS; 2017-09-06)
PROC: 03HY32Z Insertion of Monitoring Device into Upper Artery, Percutaneous Approach (ICD-10-PCS; 2017-09-06)
PROC: 4A133B1 Monitoring of Arterial Pressure, Peripheral, Percutaneous Approach (ICD-10-PCS; 2017-09-06)
PROC: 4A133J1 Monitoring of Arterial Pulse, Peripheral, Percutaneous Approach (ICD-10-PCS; 2017-09-06)
PROC: 0D9670Z Drainage of Stomach with Drainage Device, Via Natural or Artificial Opening (ICD-10-PCS; 2017-09-11)
PROC: 3E0G76Z Introduction of Nutritional Substance into Upper GI, Via Natural or Artificial Opening (ICD-10-PCS; 2017-09-11)
PROC: 02HV33Z Insertion of Infusion Device into Superior Vena Cava, Percutaneous Approach (ICD-10-PCS; 2017-09-12)
PROC: 0BH17EZ Insertion of Endotracheal Airway into Trachea, Via Natural or Artificial Opening (ICD-10-PCS; 2017-09-12)
PROC: 5A1955Z Respiratory Ventilation, Greater than 96 Consecutive Hours (ICD-10-PCS; 2017-09-12)
PROC: 4A023N7 Measurement of Cardiac Sampling and Pressure, Left Heart, Percutaneous Approach (ICD-10-PCS; 2017-09-15)
PROC: B211YZZ Fluoroscopy of Multiple Coronary Arteries using Other Contrast (ICD-10-PCS; 2017-09-15)
PROC: B215YZZ Fluoroscopy of Left Heart using Other Contrast (ICD-10-PCS; 2017-09-15)
PROC: B24BZZ4 Ultrasonography of Heart with Aorta, Transesophageal (ICD-10-PCS; 2017-09-15)
PROC: 5A1221Z Performance of Cardiac Output, Continuous (ICD-10-PCS; 2017-09-21)
PROC: 5A12012 Performance of Cardiac Output, Single, Manual (ICD-10-PCS; 2017-09-21)
PROC: B3151ZZ Fluoroscopy of Bilateral Common Carotid Arteries using Low Osmolar Contrast (ICD-10-PCS; 2017-09-21)
PROC: B3181ZZ Fluoroscopy of Bilateral Internal Carotid Arteries using Low Osmolar Contrast (ICD-10-PCS; 2017-09-21)
PROC: B31C1ZZ Fluoroscopy of Bilateral External Carotid Arteries using Low Osmolar Contrast (ICD-10-PCS; 2017-09-21)
PROC: B4101ZZ Fluoroscopy of Abdominal Aorta using Low Osmolar Contrast (ICD-10-PCS; 2017-09-21)
PROC: 03HY32Z Insertion of Monitoring Device into Upper Artery, Percutaneous Approach (ICD-10-PCS; 2017-09-22)
PROC: 4A133B1 Monitoring of Arterial Pressure, Peripheral, Percutaneous Approach (ICD-10-PCS; 2017-09-22)
PROC: 4A133J1 Monitoring of Arterial Pulse, Peripheral, Percutaneous Approach (ICD-10-PCS; 2017-09-22)
PROC: 02L70CK Occlusion of Left Atrial Appendage with Extraluminal Device, Open Approach (ICD-10-PCS; 2017-09-25)
PROC: B24BZZ4 Ultrasonography of Heart with Aorta, Transesophageal (ICD-10-PCS; 2017-09-25)
PROC: 30243N0 Transfusion of Autologous Red Blood Cells into Central Vein, Percutaneous Approach (ICD-10-PCS; 2017-09-25)
PROC: 30243N1 Transfusion of Nonautologous Red Blood Cells into Central Vein, Percutaneous Approach (ICD-10-PCS; 2017-09-25)
PROC: 02RG08Z Replacement of Mitral Valve with Zooplastic Tissue, Open Approach (ICD-10-PCS; 2017-09-25 08:45)
PROC: 02580ZZ Destruction of Conduction Mechanism, Open Approach (ICD-10-PCS; 2017-09-25 08:45)
PROC: B44HZZZ Ultrasonography of Bilateral Lower Extremity Arteries (ICD-10-PCS; 2017-09-26)
DX: A41.9 Sepsis, unspecified organism (principal); J96.21 Acute and chronic respiratory failure with hypoxia; N17.0 Acute kidney failure with tubular necrosis; I46.9 Cardiac arrest, cause unspecified; J15.6 Pneumonia due to other Gram-negative bacteria; J15.0 Pneumonia due to Klebsiella pneumoniae; I50.43 Acute on chronic combined systolic (congestive) and diastolic (congestive) heart failure; J44.0 Chronic obstructive pulmonary disease with (acute) lower respiratory infection; K72.00 Acute and subacute hepatic failure without coma; E87.4 Mixed disorder of acid-base balance; I13.0 Hypertensive heart and chronic kidney disease with heart failure and stage 1 through stage 4 chronic kidney disease, or unspecified chronic kidney disease; I70.1 Atherosclerosis of renal artery; N18.3 Chronic kidney disease, stage 3 (moderate); R65.21 Severe sepsis with septic shock; J44.1 Chronic obstructive pulmonary disease with (acute) exacerbation; I96 Gangrene, not elsewhere classified; N17.9 Acute kidney failure, unspecified; E11.52 Type 2 diabetes mellitus with diabetic peripheral angiopathy with gangrene; I42.9 Cardiomyopathy, unspecified; I48.92 Unspecified atrial flutter; I48.1 Persistent atrial fibrillation; N39.0 Urinary tract infection, site not specified; Z23 Encounter for immunization; E11.22 Type 2 diabetes mellitus with diabetic chronic kidney disease; I08.3 Combined rheumatic disorders of mitral, aortic and tricuspid valves; I65.23 Occlusion and stenosis of bilateral carotid arteries; E87.5 Hyperkalemia; E88.09 Other disorders of plasma-protein metabolism, not elsewhere classified; K75.89 Other specified inflammatory liver diseases; L03.032 Cellulitis of left toe; K21.9 Gastro-esophageal reflux disease without esophagitis; I25.10 Atherosclerotic heart disease of native coronary artery without angina pectoris; F17.210 Nicotine dependence, cigarettes, uncomplicated; F32.9 Major depressive disorder, single episode, unspecified; F41.9 Anxiety disorder, unspecified; E03.9 Hypothyroidism, unspecified; E78.5 Hyperlipidemia, unspecified; I25.2 Old myocardial infarction; R00.1 Bradycardia, unspecified; E87.6 Hypokalemia; T50.2X5A Adverse effect of carbonic-anhydrase inhibitors, benzothiadiazides and other diuretics, initial encounter; R19.7 Diarrhea, unspecified; N14.1 Nephropathy induced by other drugs, medicaments and biological substances; T50.8X5A Adverse effect of diagnostic agents, initial encounter; B96.20 Unspecified Escherichia coli [E. coli] as the cause of diseases classified elsewhere; E61.1 Iron deficiency; F10.10 Alcohol abuse, uncomplicated; I77.1 Stricture of artery; I44.30 Unspecified atrioventricular block; D64.9 Anemia, unspecified; K57.90 Diverticulosis of intestine, part unspecified, without perforation or abscess without bleeding; Z79.2 Long term (current) use of antibiotics; Z79.01 Long term (current) use of anticoagulants; Z79.899 Other long term (current) drug therapy; Z91.81 History of falling; Z16.24 Resistance to multiple antibiotics; Z95.5 Presence of coronary angioplasty implant and graft; Z83.3 Family history of diabetes mellitus; W19.XXXA Unspecified fall, initial encounter
CPT/HCPCS: 36415; 36569; 36600; 70498; 71045; 71046; 76937; 80048; 80053; 80061; 80074; 81001; 81003; 82248; 82330; 82550; 82553; 82728; 82805; 83036; 83540; 83550; 83605; 83735; 83880; 84100; 84132; 84439; 84443; 84484; 85025; 85027; 85520; 85610; 85730; 86140; 86850; 86891; 86900; 86901; 86920; 87040; 87070; 87077; 87086; 87186; 87205; 87324; 88305; 93306; 93308; 93312; 93320; 93325; 93458; 93880; 93923; 93970; 93975; 94002; 94003; 94150; 94640; 94660; 94760; 96365; 96366; 99285

== ENCOUNTER 2019-10-10 10:52 | Inpatient (IN) | payer MEDICARE, OTHER ==
[2019-10-10 12:44] LABS: Glucose,Whole Blood 62 mg/dL (75-99)
[2019-10-10 13:03] LABS: Glucose,Whole Blood 27 mg/dL (75-99)
[2019-10-10 13:03] LABS: Glucose,Whole Blood 68 mg/dL (75-99)
[2019-10-10] MEDS ORDERED: HEPARIN SODIUM,PORCINE 5,000 UNIT/ML 1 ML VIAL IV PRN (13:18)
[2019-10-10] MEDS ORDERED: ONDANSETRON 4 MG/2 ML VIAL IVP PRN (13:28)
[2019-10-10] MEDS ORDERED: HEPARIN SOD,PORK IN 0.45% NACL 25,000 UNIT in 0.45% NACL 1 250ML.BAG IV SCH (13:30)
[2019-10-10] MEDS ORDERED: SODIUM CHLORIDE 0.9% 1,000 ML IV SCH (13:30)
[2019-10-10 13:40] LABS: Glucose,Whole Blood 95 mg/dL (75-99)
[2019-10-10 14:11] LABS: INR 1.4 (<1.2); Partial Thromboplastin Time 30.9 sec (22.0-30.0); Prothrombin Time 13.9 sec (9.0-12.0)
[2019-10-10 14:15] LABS: Calcium 7.4 mg/dL (8.4-10.2); Potassium 4.9 mmol/L (3.5-5.1)
[2019-10-10 14:26] LABS: Anisocytosis Slight; HCT 45.6 % (39.0-53.0); HGB 13.1 gm/dL (13.0-17.5); Hypochromasia Marked; MCH 25.8 pg (25.0-35.0); MCHC 28.7 g/dL (31.0-37.0); MCV 89.9 fL (80.0-100.0); Mean Platelet Volume 11.1; Platelet Count 145 k/uL (150-450); RBC 5.07 m/uL (4.30-5.90); RDW 17.4 % (11.5-15.5)
[2019-10-10 14:56] LABS: Band Neutrophils % 1 %; Lymphocytes # (M) 0.26 k/uL (1.0-4.8); Monocytes # (M) 0.52 k/uL (0-1.0); Neutrophils % (M) 93 %; Nucleated Red Blood Cells 1 /100 WBC (0-0); Total Cells Counted 100; WBC 13.1 k/uL (3.8-10.6)
[2019-10-10 14:57] LABS: Poikilocytosis (M) Present; Target Cells Present
[2019-10-10 14:58] LABS: Mixed Population RBC Present
[2019-10-10] MEDS ORDERED: EPINEPHrine 10 ML SYRINGE (0.1 MG/ML) ONE (18:13)
[2019-10-10 18:16] LABS: Glucose,Whole Blood 35 mg/dL (75-99)
[2019-10-10 18:22] LABS: Glucose,Whole Blood 197 mg/dL (75-99)
[2019-10-10 18:42] LABS: Glucose,Whole Blood 175 mg/dL (75-99)
[2019-10-10 18:56] LABS: ABG Base Excess -26.3 mmol/L; ABG Oxygen Saturation 99.5 % (94-97); ABG PO2 >400 mmHg (83-108); ABG TCO2 5 mmol/L (19-24); Allen Test Performed? Yes
[2019-10-10 18:58] LABS: ABG PCO2 17 mmHg (35-45); ABG PH 7.03 (7.35-7.45)
[2019-10-10 18:59] LABS: ABG HCO3 4 mmol/L (21-25)
[2019-10-10] MEDS ORDERED: NALOXONE 0.4 MG/ML 1 ML VIAL IV PRN (18:59)
[2019-10-10] MEDS ORDERED: SODIUM BICARB 8.4% 50 ML SYR (1 MEQ/ML) ONE (19:08)
[2019-10-10] MEDS ORDERED: SODIUM BICARB 8.4% 50 ML SYR (1 MEQ/ML) IV STA (19:10)
--- NOTE | 2019-10-10 19:14 | P.CNPUL ---
History of Present Illness Consult date: 10/10/19 Chief complaint: Acute unresponsiveness, acute hypotension History of present illness: This is a 64-year-old male patient who got transferred from [facility] because of tachybradycardia syndrome and ongoing cardiac arrhythmias and for that reason the patient got transferred to [facility] for cardiac evaluation and possible pacemaker insertion. The patient presented there in a poor health and living condition. He was having difficulties in taking care of himself because of an amputated left lower extremity above the knee. According to the hospital staff, the patient has been very weak and he was found to be at home covered with feces and possible bedbugs. He was brought into [facility] where he was found to be tachycardic and irregular rhythm possible atrial fibrillation. He was given a liter of IV fluids and he was placed on Cardizem drip and amiodarone drip and subsequently his heart rate dropped in the low 30s with junctional rhythm. The patient was also found to have elevated troponin and was a concern for an acute non-STEMI. 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 He is also known to have mild to moderate impairment of the LV with an ejection fraction depressed in the order of 40%, history of peripheral vascular disease, above- knee amputation left lower extremity, COPD, moderate to severe right internal carotid artery stenosis, chronic atrial fibrillation, stage III kidney disease, smoker, depression, hypertension, coronary artery disease with previous coronary stent placement, hypothyroidism, and acid reflux. The patient also has history of chronic anemia of an iron deficiency type. After he came in to our intensive care unit, the patient had an acute episode where he became unresponsive. A code stroke was called. Immediately a blood sugar was checked and the blood sugar was 35. The patient was given D50. She remained unresponsive. He be became more bradycardic with heart rate dropped down to the low 30s in a junctional rhythm. His blood pressure was undetectable although he had a very thready pulse. The pulses were weak mainly obtained in the right femoral area. She became agonal breathing. He became completely un responsive. A code was called. I attended disclose. The patient was immediately intubated. I was able to successfully intubate the patient by #8 orotracheal tube. Subsequently I was able to insert a triple lumen catheter in his right femoral vein and it off and catheter in his right femoral artery. He was started on levo fed during this process and he was also given 1 amp of epinephrine. Currently norepinephrine is running at 0.08 g per KG per minute. His most recent blood pressure is 152/58. His current cardiac rhythm is junctional at the rate of 45 and external transcutaneous pacers was applied. Beaulieu catheter is in place. He is hypothermic and after optimizing his condition, the patient started having some response already started following some simple commands where he would open up his eyes upon demand, move around and breathable mechanical ventilator. Currently is on assist control mode at the rate of 20 to a tidal volume of 50 and FiO2 of 100% and a PEEP of 5. Chest x-ray shows adequate expansion of both lungs. No evidence of any pneumothorax. ET tube is in a good location. Presented was down by around 2 cm. NG tube was in the right mainstem and had to be pulled artery position. The follow-up blood sugar was 150. Cardiology will be made aware of these changes. The blood work from here shows a component of metabolic acidosis with a bicarb level of 11. Post intubation blood gases showed a pH of 7.03 with a pCO2 of 17 and a pO2 of more than 400 and FiO2 of 100%. INR is at 1.4. Creatinine is at 2.1 with a BUN of 64. Review of Systems ROS unobtainable: due to mental status Past Medical History Past Medical History: Atrial Fibrillation, Coronary Artery Disease (CAD), COPD, Diabetes Mellitus, GERD/Reflux, Hyperlipidemia, Hypertension, Myocardial Infarction (ME), Thyroid Disorder, Vascular Disorder Additional Past Medical History / Comment(s): Other Hx: Chronic kidney disease stage III, hypothyroid, PAD, diverticular dx, past ETOH abuse. Anxiety/Depression Last Myocardial Infarction Date:: 09/2011 History of Any Multi-Drug Resistant Organisms: None Reported Past Surgical History: Cardiac Valve Replacement, Heart Catheterization With Stent Additional Past Surgical History / Comment(s): Mitral Valve replacement, Left above the knee amputation, Femoral-Popliteal Bypass. Endarterectomy Past Anesthesia/Blood Transfusion Reactions: No Reported Reaction Date of Last Stent Placement:: 09/2011 Past Psychological History: Anxiety, Depression Additional Psychological History / Comment(s): Pt resides alone. He uses a cane to ambulate and has a L foot medi shoe. He does not drive. He gets to appts with his cousin. Infestation of bed bugs noted at patients apartment. Smoking Status: Current every day smoker Past Alcohol Use History: Occasional Additional Past Alcohol Use History / Comment(s): Pt started smoking in 1977 and is a ppd smoker. He states he drinks less than 14 drinks per week but used to drink heavier. Past Drug Use History: Marijuana - Past Family History Mother Family Medical History: Diabetes Mellitus, Deep Vein Thrombosis (DVT) Medications and Allergies Home Medications Medication Instructions Recorded Confirmed Type FLUoxetine HCL [PROzac] 20 mg PO DAILY 03/26/15 10/10/19 History Levothyroxine Sodium [Synthroid] 25 mcg PO DAILY 03/26/15 10/10/19 History Acetaminophen Tab [Tylenol] 650 mg PO Q6HR PRN tab 10/04/17 10/10/19 Rx Ipratropium-Albuterol Nebulize 3 ml INHALATION RT-QID ampul.neb 10/04/17 10/10/19 Rx [Duoneb 0.5 mg-3 mg/3 ml Soln] Allopurinol [Zyloprim] 100 mg PO DAILY 10/10/19 10/10/19 History Clopidogrel [Plavix] 75 mg PO DAILY 10/10/19 10/10/19 History HYDROcodone/APAP 10-325MG [[place] 1 tab PO QID PRN 10/10/19 10/10/19 History 10-325] Lisinopril [Zestril] 2.5 mg PO DAILY 10/10/19 10/10/19 History Metoprolol Tartrate [Lopressor] 50 mg PO BID 10/10/19 10/10/19 History Allergies Allergy/AdvReac Type Severity Reaction Status Date / Time No Known Allergies Allergy Verified 10/10/19 14:02 Physical Exam Vitals: Vital Signs Pulse Resp BP Pulse Ox 10/10/19 16:00 19 10/10/19 15:30 56 L 19 144/31 10/10/19 15:00 64 21 128/71 10/10/19 14:30 55 L 12 98 10/10/19 14:00 53 L 14 147/76 10/10/19 13:30 76 20 136/88 99 10/10/19 13:00 64 12 131/63 98 Intake and Output 10/10/19 10/10/19 10/10/19 06:59 14:59 22:59 Intake Total 75 Output Total 75 50 Balance -75 25 Intake: Intake, IV Titration 75 Amount Sodium Chloride 0.9% 1, 75 000 ml @ 75 mls/hr IV . [id number] [facility] Rx#:[id number] Output: Urine 75 50 Other: Voiding Method Indwelling Catheter Indwelling Catheter Weight 68 kg The patient is currently opening up his eyes and withdrawing to painful stimulation. Not following commands yet. Orogastric tube was removed and had to be repositioned. Orotracheal tube is in place. Head exam was generally normal. There was no scleral icterus or corneal arcus. Mucous membranes were moist. Neck was supple and without jugular venous distension, thyromegaly, or carotid bruits. Carotids were easily palpable bilaterally. There was no adenopathy. The patient has very poor dentition. Multiple decayed teeth. Multiple missing teeth. No significant JVDs. Lungs were clear to auscultation and percussion, and with normal diaphragmatic excursion. No wheezes or rales were noted. Heart sounds are bradycardic, positive S1-S2, overall heart sounds are distant. There is a sternotomy scar over the anterior chest. There are transcutaneous pacemaker leads over the anterior chest. No rubs. No cervical murmurs appreciated. Abdominal exam revealed normal bowel sounds. The abdomen was soft, non-tender, and without masses, organomegaly, or appreciable enlargement of the abdominal aorta. Extremities the patient has an above-knee amputation left lower extremity. Right lower extremity reveals no significant edema. No cyanosis. No clubbing. Pulses are diminished at the present in all 4 extremities. Neurologically, pupils are equal and reactive to light. There is no facial asymmetry. Withdrawing to painful stimulation EXTREMITIES. Results - Laboratory Findings CBC and BMP: 10/10/19 13:36 10/10/19 13:36 ABG WBC 13.1 k/uL (3.8-10.6) H 10/10/19 13:36 RBC 5.07 m/uL (4.30-5.90) 10/10/19 13:36 Hgb 13.1 gm/dL (13.0-17.5) 10/10/19 13:36 Hct 45.6 % (39.0-53.0) 10/10/19 13:36 MCV 89.9 fL (80.0-100.0) 10/10/19 13:36 MCH 25.8 pg (25.0-35.0) 10/10/19 13:36 MCHC 28.7 g/dL (31.0-37.0) L 10/10/19 13:36 RDW 17.4 % (11.5-15.5) H 10/10/19 13:36 Plt Count 145 k/uL (150-450) L 10/10/19 13:36 Neutrophils % (Manual) 93 % 10/10/19 13:36 Band Neutrophils % 1 % 10/10/19 13:36 Lymphocytes % (Manual) 2 % 10/10/19 13:36 Monocytes % (Manual) 4 % 10/10/19 13:36 Neutrophils # (Manual) 12.30 k/uL (1.3-7.7) H 10/10/19 13:36 Lymphocytes # (Manual) 0.26 k/uL (1.0-4.8) L 10/10/19 13:36 Monocytes # (Manual) 0.52 k/uL (0-1.0) 10/10/19 13:36 Nucleated RBCs 1 /100 WBC (0-0) H 10/10/19 13:36 Dimorphic RBCs Present 10/10/19 13:36 Hypochromasia Marked 10/10/19 13:36 Poikilocytosis (manual Present 10/10/19 13:36 Anisocytosis Slight 10/10/19 13:36 Target Cells Present 10/10/19 13:36 PT 13.9 sec (9.0-12.0) H 10/10/19 13:36 INR 1.4 (<1.2) H 10/10/19 13:36 APTT 30.9 sec (22.0-30.0) H 10/10/19 13:36 Sample Site [place] 10/10/19 18:55 ABG pH 7.03 (7.35-7.45) L* 10/10/19 18:55 ABG pCO2 17 mmHg (35-45) L* 10/10/19 18:55 ABG pO2 >400 mmHg (83-108) H 10/10/19 18:55 ABG HCO3 4 mmol/L (21-25) L* 10/10/19 18:55 ABG Total CO2 5 mmol/L (19-24) L 10/10/19 18:55 ABG O2 Saturation 99.5 % (94-97) H 10/10/19 18:55 ABG Base Excess -26.3 mmol/L 10/10/19 18:55 Cuong Test Yes 10/10/19 18:55 FiO2 100 % 10/10/19 18:55 Sodium 135 mmol/L (137-145) L 10/10/19 13:36 Potassium 4.9 mmol/L (3.5-5.1) 10/10/19 13:36 Chloride 109 mmol/L (98-107) H 10/10/19 13:36 Carbon Dioxide 11 mmol/L (22-30) L 10/10/19 13:36 Anion Gap 15 mmol/L 10/10/19 13:36 BUN 64 mg/dL (9-20) H 10/10/19 13:36 Creatinine 2.14 mg/dL (0.66-1.25) H 10/10/19 13:36 Est GFR (CKD-EPI)AfAm 37 (>60 ml/min/1.73 sqM) 10/10/19 13:36 Est GFR (CKD-EPI)NonAf 32 (>60 ml/min/1.73 sqM) 10/10/19 13:36 Glucose 109 mg/dL (74-99) H 10/10/19 13:36 POC Glucose (mg/dL) 175 mg/dL (75-99) H 10/10/19 18:40 POC Glu Counter Hop ID Prerna Chu 10/10/19 18:40 Calcium 7.4 mg/dL (8.4-10.2) L 10/10/19 13:36 PT/INR, D-dimer PT 13.9 sec (9.0-12.0) H 10/10/19 13:36 INR 1.4 (<1.2) H 10/10/19 13:36 Abnormal lab findings: Abnormal Labs 10/10/19 10/10/19 10/10/19 12:43 12:59 13:01 WBC MCHC RDW Plt Count Neutrophils # (Manual) Lymphocytes # (Manual) Nucleated RBCs PT INR APTT ABG pH ABG pCO2 ABG pO2 ABG HCO3 ABG Total CO2 ABG O2 Saturation Sodium Chloride Carbon Dioxide BUN Creatinine Glucose POC Glucose (mg/dL) 62 L 27 L 68 L Calcium 10/10/19 10/10/19 10/10/19 13:36 13:36 13:36 WBC 13.1 H MCHC 28.7 L RDW 17.4 H Plt Count 145 L Neutrophils # (Manual) 12.30 H Lymphocytes # (Manual) 0.26 L Nucleated RBCs 1 H PT 13.9 H INR 1.4 H APTT 30.9 H ABG pH ABG pCO2 ABG pO2 ABG HCO3 ABG Total CO2 ABG O2 Saturation Sodium 135 L Chloride 109 H Carbon Dioxide 11 L BUN 64 H Creatinine 2.14 H Glucose 109 H POC Glucose (mg/dL) Calcium 7.4 L 10/10/19 10/10/19 10/10/19 18:14 18:20 18:40 WBC MCHC RDW Plt Count Neutrophils # (Manual) Lymphocytes # (Manual) Nucleated RBCs PT INR APTT ABG pH ABG pCO2 ABG pO2 ABG HCO3 ABG Total CO2 ABG O2 Saturation Sodium Chloride Carbon Dioxide BUN Creatinine Glucose POC Glucose (mg/dL) 35 L 197 H 175 H Calcium 10/10/19 18:55 WBC MCHC RDW Plt Count Neutrophils # (Manual) Lymphocytes # (Manual) Nucleated RBCs PT INR APTT ABG pH 7.03 L* ABG pCO2 17 L* ABG pO2 >400 H ABG HCO3 4 L* ABG Total CO2 5 L ABG O2 Saturation 99.5 H Sodium Chloride Carbon Dioxide BUN Creatinine Glucose POC Glucose (mg/dL) Calcium - Diagnostic Findings Chest x-ray: image reviewed Assessment and Plan Plan: 1 acute unresponsiveness, multifactorial. The patient was found to be profoundly hypoglycemic. Subsequently the patient became hemodynamically unstable, the patient became bradycardic and hypotensive and unresponsive requiring intubation mechanical ventilation and pressors. The possibility of an acute CVA cannot be completely ruled out. Blood sugar currently is above 150. He is withdrawing to painful stimulation. No seizure activity has been noted. Current cardiac rhythm as junctional bradycardia, hemodynamically improved with use of Precedex in the norepinephrine infusion is running at 0.08 g per KG per minute. 2 acute hypoglycemia, treated 3 junctional bradycardia with a possibility of tachybradycardia syndrome, awaiting a pacemaker insertion. Currently the patient has a transcutaneous pacemaker which is on standby. His current rate is in the mid 40s 4 hypotension, pressor dependent. 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 15 acute respiratory failure secondary to above-mentioned comorbidities and complications. The patient had an acute unresponsiveness and acute hypoxic/respiratory failure. Post intubation examination improved. 16 history of atrial fibrillation 17 chronic anxiety Plan Continue with transcutaneous pacing at the rate of 80 Talk with cardiology for the possibility of a transvenous pacemaker insertion Continue vent support Drop the FiO2 down to 50% Give 2 A of sodium bicarb and start the patient bicarb infusion with 3 ampules of sodium bicarbonate and D5 water at the rate of 75 mL an hour Norepinephrine infusion for blood pressure support. Currently the foot is running at 0.08 g per KG per minute Continue IV heparin Monitor the blood sugars Computed tomography scan of the brain and will discuss with neurology didn't need for a CT angiogram regarding the possibility of an acute CVA. Reposition NG-tube Reposition orotracheal tube IV Protonix Condition is critical. Echocardiogram is to be repeated. Continue to follow make further recommendations based on his progress. Family will be updated on his condition. Post status post is to be established. His condition is cri tical for now.
[2019-10-10] MEDS: PROPOFOL 1,000 MG in EMPTY BAG 1 BAG IV SCH ×2 (19:16→21:43)
--- NOTE | 2019-10-10 19:24 | P.PCN ---
Date of Procedure: 10/10/19 Preoperative Diagnosis: Shock, hypotension Postoperative Diagnosis: Shock, hypotension Procedure(s) Performed: Insertion of a central line, insertion of arterial catheter, intubation and insertion of an orotracheal tube Anesthesia: local Surgeon: Addis James Estimated Blood Loss (ml): 0 Pathology: other Condition: critical Operative Findings: Indication: Hemodynamic monitoring. A time-out was completed verifying correct patient, procedure, site, positioning, and implant(s) or special equipment if applicable. Allens test was performed to ensure adequate perfusion. The patients right groin was prepped and draped in sterile fashion. 1% Lidocaine was used to anesthetize the area. An 18G Arrow arterial line was introduced into the femoral artery. The catheter was threaded over the guide wire and the needle was removed with appropriate pulsatile blood return. Blood loss was minimal. The catheter was then sutured in place to the skin and a sterile dressing applied. Perfusion to the extremity distal to the point of catheter insertion was checked and found to be adequate. The patient tolerated the procedure well and there were no complications. Indication: Hemodynamic monitoring/Intravenous access. A time-out was completed verifying correct patient, procedure, site, pos itioning, and implant(s) or special equipment if applicable. The patient was placed in a dependent position appropriate for central line placement based on the vein to be cannulated. The patients right groin was prepped and draped in sterile fashion. 1% Lidocaine was used to anesthetize the surrounding skin area. A triple lumen 9F Cordis catheter was introduced into the common femoral vein using Seldinger technique. The catheter was threaded smoothly over the guide wire and appropriate blood return was obtained. Each lumen of the catheter was evacuated of air and flushed with sterile saline. The catheter was then sutured in place to the skin and a sterile dressing applied. Perfusion to the extremity distal to the point of catheter insertion was checked and found to be adequate. The patient tolerated the procedure well and there were no complications. Indication: Respiratory compromise. A time-out was completed verifying correct patient, procedure, site, positioning, and implant(s) or special equipment if applicable. The patient was positioned appropriately and a #8 endotracheal tube was placed under direct laryngoscopy. The tube was anchored at 22 cm at the teeth. Correct placement was confirmed by presence of bilateral breath sounds without air sounds in the abdomen on auscultation. An end-tidal CO2 monitor was also used to confirm tracheal placement of the ET tube. A chest x-ray was ordered to assess for pneumothorax and verify endotracheal tube placement. The patient tolerated the procedure well and there were no complications.
[2019-10-10] MEDS ORDERED: DEXTROSE 5% IN WATER 1,000 ML with SODIUM BICARB (1 MEQ/ML) 150 ML IV SCH (19:30)
[2019-10-10] MEDS: NOREPINEPHRINE 4 MG in SODIUM CHLORIDE 0.9% 250 ML IV SCH (19:35)
--- NOTE | 2019-10-10 20:03 | XR ---
EXAMINATION: XR chest 1V portable (2 portable views obtained) DATE AND TIME: 10/10/2019 7:39 PM CLINICAL INDICATION: PHH; line placement TECHNIQUE: AP portable semiupright view, and a second view to cover the anatomy. COMPARISON: Chest radiograph 10/10/2019 6:58 PM FINDINGS: ET tube tip superimposed over the mid trachea at the level of the clavicular heads. NG tube present, with tip superimposed over the distal most thoracic esophagus. The NG tube may be be tter placed if advanced 12 cm. Aortic valve prosthesis, sternal sutures and mediastinal clips and EKG leads noted. The lungs are clear. The pleural spaces are negative as seen on the semiupright views. The cardiac silhouette is not enlarged. The remainder of the mediastinal silhouette is unremarkable. The skeletal structures and soft tissues are negative for acute findings. IMPRESSION: NG tube comments as above.
--- NOTE | 2019-10-10 20:13 | XR ---
EXAMINATION: XR chest 1V portable (2 views were obtained) DATE AND TIME: 10/10/2019 6:58 PM CLINICAL INDICATION: PHH; Line placement TECHNIQUE: Departmental protocol COMPARISON: 10/10/2019 CXR at 7:13 PM FINDINGS: ET tube tip superimposed over the trachea at the clavicular head level. NG tube has been placed and is superimposed over the right mainstem bronchus and right lower lobe air way. Aortic valve prosthesis and sternal sutures and mediastinal clips and EKG leads noted. The lungs are clear. The pleural spaces are negative as seen. The cardiac silhouette is not enlarged. The remainder of the mediastinal silhouette is unremarkable. The skeletal structures and soft tissues are negative for acute findings. IMPRESSION: NG TUBE COMMENTS. Note: This CXR of 6:58 PM is being dictated immediately after the dictation of the radiograph obt ained 10/10/2019 at 7:13 PM. That is, by the time the 7:13 PM CXR was obtained the NG tube issue on thi s radiograph had been corrected.
[2019-10-10] MEDS: DEXTROSE 5% IN WATER 1,000 ML with SODIUM BICARB (1 MEQ/ML) 150 ML IV SCH (20:34)
[2019-10-10 20:38] LABS: ABG Base Excess -14.7 mmol/L; ABG HCO3 11 mmol/L (21-25); ABG PH 7.37 (7.35-7.45); ABG PO2 >400 mmHg (83-108); ABG TCO2 11 mmol/L (19-24); Allen Test Performed? Yes
[2019-10-10 20:39] LABS: ABG PCO2 19 mmHg (35-45)
[2019-10-10] MEDS ORDERED: METOPROLOL TARTRATE 25 MG TAB PO SCH (21:00)
[2019-10-10] MEDS: hydrALAZINE HCL 25 MG TAB PO SCH (21:34)
[2019-10-10] MEDS: PANTOPRAZOLE 40 MG/10 ML VIAL IVP SCH (21:44)
[2019-10-10] MEDS: CHLORHEXIDINE GLUCONATE 15 ML CUP MUCOUS MEM SCH (21:44)
[2019-10-11] MEDS: NOREPINEPHRINE 4 MG in SODIUM CHLORIDE 0.9% 250 ML IV SCH (03:15)
[2019-10-11] MEDS: PROPOFOL 1,000 MG in EMPTY BAG 1 BAG IV SCH ×2 (04:03→11:28)
[2019-10-11 05:11] LABS: Glucose,Whole Blood 148 mg/dL (75-99)
[2019-10-11] MEDS: VANCOMYCIN ORAL SOLUTION 250 MG/5 ML BOTTLE PO SCH ×3 (05:17→21:46)
[2019-10-11] MEDS: LEVOTHYROXINE 25 MCG TAB PO SCH (05:19)
[2019-10-11 05:21] LABS: ABG Base Excess -6.9 mmol/L; ABG HCO3 17 mmol/L (21-25); ABG PCO2 24 mmHg (35-45); ABG PH 7.46 (7.35-7.45); ABG PO2 272 mmHg (83-108); ABG TCO2 18 mmol/L (19-24)
[2019-10-11] MEDS: CHERRY FLAVOR 60 ML BOTTLE PO SCH ×3 (05:21→21:47)
[2019-10-11 05:25] LABS: Allen Test Performed? no
[2019-10-11 05:38] LABS: Calcium 6.7 mg/dL (8.4-10.2); Magnesium 2.2 mg/dL (1.6-2.3); Phosphorus 4.7 mg/dL (2.5-4.5); Potassium 3.7 mmol/L (3.5-5.1)
[2019-10-11 05:52] LABS: Anisocytosis Slight; HCT 38.6 % (39.0-53.0); HGB 11.6 gm/dL (13.0-17.5); Hypochromasia Moderate; MCH 25.4 pg (25.0-35.0); MCHC 30.1 g/dL (31.0-37.0); Mean Platelet Volume 10.8; Platelet Count 126 k/uL (150-450); RBC 4.57 m/uL (4.30-5.90); RDW 17.9 % (11.5-15.5)
[2019-10-11 06:12] LABS: MCV 84.4 fL (80.0-100.0)
[2019-10-11 06:37] LABS: Band Neutrophils % 4 %; Eosinophils # (M) 0.14 k/uL (0-0.7); Lymphocytes # (M) 0.82 k/uL (1.0-4.8); Monocytes # (M) 0.27 k/uL (0-1.0); Neutrophils % (M) 88 %; Nucleated Red Blood Cells 3 /100 WBC (0-0); Poikilocytosis (M) Present; Total Cells Counted 200; WBC 13.6 k/uL (3.8-10.6)
--- NOTE | 2019-10-11 07:29 | XR ---
EXAMINATION TYPE: XR chest 1V portable DATE OF EXAM: 10/11/2019 COMPARISON: 10/10/2019 HISTORY: Ventilatory dependent respiratory failure TECHNIQUE: Single frontal view of the chest is obtained. FINDINGS: Enteric tube now courses off the end of the image. Fenestrated portion appears to be obscu red by an overlying line. Again this should be advanced approximately 7 cm for optimal placement. Po stsurgical change of the chest are seen with epicardial pacing leads and cardiac annuloplasty. Scatte red areas of atelectasis or subsegmental and the lungs radiating from the ирина. Cardiomediastinal carlos houette size is stable. No acute osseous pathology. No pleural effusion or pneumothorax. IMPRESSION: Scattered areas of subsegmental atelectasis. Enteric tube should be advanced 7 cm for op timal placement.
[2019-10-11] MEDS: DEXTROSE 5% IN WATER 1,000 ML with SODIUM BICARB (1 MEQ/ML) 150 ML IV SCH ×2 (07:30→21:00)
[2019-10-11] MEDS ORDERED: HEPARIN SODIUM,PORCINE 5,000 UNIT/ML 1 ML VIAL IV PRN (08:04)
[2019-10-11] MEDS ORDERED: HEPARIN SODIUM,PORCINE 5,000 UNIT/ML 1 ML VIAL IV ONE (08:04)
[2019-10-11] MEDS ORDERED: HEPARIN SOD,PORK IN 0.45% NACL 25,000 UNIT in 0.45% NACL 1 250ML.BAG IV SCH (08:15)
--- NOTE | 2019-10-11 08:24 | PN ---
PROGRESS NOTE Mr. Maradiaga is a 64-year-old male with known history of mitral valve repair, history of chronic persistent atrial fibrillation, history of obstructive coronary artery disease status post percutaneous revascularization, chronic kidney disease, peripheral arterial disease, status post left AKA as well as prior carotid stenting who presented initially at [facility] with symptoms of being tired and poor status. He was treated for possible infectious process. He had episode of atrial fibrillation with rapid ventricular response and subsequently wide-complex tachycardia. He had mild elevation of his troponin and was transferred to [facility] for possible coronary angiography by Dr. Godoy. Last night, he became unresponsive, bradycardic, requiring mechanical ventilation as well as he was paced for short period of time externally. He is in atrial fibrillation with slow ventricular response, but no significant pauses. He is on norepinephrine at a low dose. He is intubated. He has no evidence of ventricular ectopic activity. He had underwent an echocardiogram at [facility], but the report is not available to me at this point. He was evaluated yesterday by Dr. James during his unresponsiveness episode. The patient has a known history of chronic obstructive lung disease as well and history of anemia. He was hypoglycemic when the episode started yesterday. He is at this time on the levothyroxine, norepinephrine, Protonix IV. PHYSICAL EXAMINATION: A 64-year-old male, intubated, sedated. Blood pressure 119/40 with the heart rate 50. LUNGS: Clear anteriorly. HEART: Irregular, irregular. S1, S2. No S3 with a systolic murmur. No diastolic murmur. No rub. ABDOMEN: Soft, positive bowel sounds. No organomegaly. EXTREMITIES: Status post left AKA. No edema on the right side. LAB DATA: Lab data revealed a pH yesterday was 7.03, today up to 7.37. His troponin is up to 1.370. He is positive for C difficile. His hemoglobin is 11.6, white blood cell of 13.6, BUN and creatinine 66 and 2.18, potassium 3.7. His rhythm strip revealed atrial fibrillation with slow ventricular response. IMPRESSION: 1. Cardiorespiratory arrest which could be related to hypoglycemia or severe bradycardia. 2. [id number] elevation myocardial infarction. 3. History of coronary artery disease, status post prior stenting. 4. Status post mitral valve repair. 5. Chronic obstructive lung disease. 6. Peripheral vascular disease. 7. Chronic kidney disease. 8. Anemia. RECOMMENDATION: From the cardiac standpoint, I will start him on an aspirin 81 mg daily. I will start him on IV heparin. Will hold on cardiac catheterization at this time. Follow his renal function closely. Unfortunately, the prognosis is guarded. SOLO / MYRA: [id number] /
[2019-10-11] MEDS ORDERED: PANTOPRAZOLE 40 MG/10 ML VIAL IVP SCH (09:00)
[2019-10-11] MEDS ORDERED: LOSARTAN 50 MG TAB PO SCH (09:00)
--- NOTE | 2019-10-11 10:17 | ECHOF ---
Referral Reason:Assess heart function MEASUREMENTS -------- HEIGHT: 180.3 cm WEIGHT: 65.8 kg BP: 119/43 IVSd: 0.8 cm (0.6 - 1.1) LVIDd: 5.0 cm (3.9 - 5.3) LVPWd: 1.4 cm (0.6 - 1.1) IVSs: 0.8 cm LVIDs: 4.6 cm LVPWs: 2.0 cm Ao Diam: 2.5 cm (2.0 - 3.7) AV Cusp: 1.8 cm (1.5 - 2.6) LA Diam: 2.6 cm (2.7 - 3.8) MV E Gerry: 1.41 m/s MV DecT: 541 ms MV A Gerry: 0.80 m/s MV E/A Ratio: 1.76 AR PHT: 485 ms RAP: 20.00 mmHg RVSP: 40.71 mmHg FINDINGS -------- Sinus rhythm. This was a technically difficult study with suboptimal views. Pt. on a vent. The left ventricular size is normal. There is borderline concentric left ventricular hypertrophy. There is severe global hypokinesis of LV . Overall left ventricular systolic function is severely impaired with, an EF between 20 - 25 %. Anterior wall is hypokinetic The RV was not well visualized. The left atrial size is normal. The right atrium was not well visualized. Aortic valve is trileaflet and is mildly thickened. There is fxlijnxu-rk-njwvfk aortic regurgitatio n. Mild mitral regurgitation is present. Mitral ring annulloplasty is in place. The tricuspid valve appears structurally normal. Mild tricuspid regurgitation present. There is m ild pulmonary hypertension. The right ventricular systolic pressure, as measured by Doppler, is 40. 71mmHg. The pulmonic valve was not well visualized. The aortic root size is normal. There is no pericardial effusion. CONCLUSIONS -------- 1. Sinus rhythm. 2. This was a technically difficult study with suboptimal views. 3. Pt. on a vent. 4. The left ventricular size is normal. 5. There is borderline concentric left ventricular hypertrophy. 6. There is ischemic cardiomyopathy 7. Overall left ventricular systolic function is severely impaired with, an EF between 20 - 25 %. 8. Anterior is hypokinetic 9. The RV was not well visualized. 10. The left atrial size is normal. 11. The right atrium was not well visualized. 12. Aortic valve is trileaflet and is mildly thickened. 13. There is pdyrspru-kd-wapntl aortic regurgitation. 14. Mild mitral regurgitation is present. 15. Mitral ring annulloplasty is in place. 16. The tricuspid valve appears structurally normal. 17. Mild tricuspid regurgitation present. 18. There is mild pulmonary hypertension. 19. The right ventricular systolic pressure, as measured by Doppler, is 40.71mmHg. 20. The pulmonic valve was not well visualized. 21. The aortic root size is normal. 22. anterior wall is hypokinetic EXPERIMENTAL BOX TESTER: Kelsey Whitten RDCS
--- NOTE | 2019-10-11 10:18 | XR ---
EXAMINATION TYPE: XR chest 1V portable DATE OF EXAM: 10/11/2019 COMPARISON: 10/11/2019 HISTORY: Orogastric tube placement TECHNIQUE: Single frontal view of the chest is obtained. FINDINGS: Enteric tube has been advanced with its fenestrated portion now at or just beyond the moiz roesophageal junction. This could be advanced approximately 2 to 3 cm to ensure placement below the g astroesophageal junction. Endotracheal tube is similar in position. Postoperative changes of the ches t with epicardial pacing leads. Scattered areas of subsegmental atelectasis. Lung apices are not imag ed. IMPRESSION: 1. Enteric tube is likely satisfactory after advancement however this could be advanced approximately 2 to 3 cm to ensure placement below the gastroesophageal junction. 2. Scattered areas of subsegmental atelectasis are again seen.
--- NOTE | 2019-10-11 10:27 | P.PN ---
Subjective Progress Note Date: 10/11/19 This is a 64-year-old male patient who got transferred from [facility] because of tachybradycardia syndrome and ongoing cardiac arrhythmias and for that reason the patient got transferred to [facility] for cardiac evaluation and possible pacemaker insertion. The patient presented there in a poor health and living condition. He was having difficulties in taking care of himself because of an amputated left lower extremity above the knee. According to the hospital staff, the patient has been very weak and he was found to be at home covered with feces and possible bedbugs. He was brought into [facility] where he was found to be tachycardic and irregular rhythm possible atrial fibrillation. He was given a liter of IV fluids and he was placed on Cardizem drip and amiodarone drip and subsequently his heart rate dropped in the low 30s with junctional rhythm. The patient was also found to have elevated troponin and was a concern for an acute non-STEMI. 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 He is also known to have mild to moderate impairment of the LV with an ejection fraction depressed in the order of 40%, history of peripheral vascular disease, above- knee amputation left lower extremity, COPD, moderate to severe right internal carotid artery stenosis, chronic atrial fibrillation, stage III kidney disease, smoker, depression, hypertension, coronary artery disease with previous coronary stent placement, hypothyroidism, and acid reflux. The patient also has history of chronic anemia of an iron deficiency type. After he came in to our intensive care unit, the patient had an acute episode where he became unresponsive. A code stroke was called. Immediately a blood sugar was checked and the blood sugar was 35. The patient was given D50. She remained unresponsive. He be became more bradycardic with heart rate dropped down to the low 30s in a junctional rhythm. His blood pressure was undetectable although he had a very thready pulse. The pulses were weak mainly obtained in the right femoral area. She became agonal breathing. He became completely unresponsive. A code was called. I attended disclose. The patient was immediately intubated. I was able to successfully intubate the patient by #8 orotracheal tube. Subsequently I was able to insert a triple lumen catheter in his right femoral vein and it off and catheter in his right femoral artery. He was started on levo fed during this process and he was also given 1 amp of epinephrine. Currently norepinephrine is running at 0.08 g per KG per minute. His most recent blood pressure is 152/58. His current cardiac rhythm is junctional at the rate of 45 and external transcutaneous pacers was applied. Beaulieu catheter is in place. He is hypothermic and after optimizing his condition, the patient started having some response already started following some simple commands where he would open up his eyes upon demand, move around and breathable mechanical ventilator. Currently is on assist control mode at the rate of 20 to a tidal volume of 50 and FiO2 of 100% and a PEEP of 5. Chest x-ray shows adequate expansion of both lungs. No evidence of any pneumothorax. ET tube is in a good location. Presented was down by around 2 cm. NG tube was in the right mainstem and had to be pulled artery position. The follow-up blood sugar was 150. Cardiology will be made aware of these changes. The blood work from here shows a component of metabolic acidosis with a bicarb level of 11. Post intubation blood gases showed a pH of 7.03 with a pCO2 of 17 and a pO2 of more than 400 and FiO2 of 100%. INR is at 1.4. Creatinine is at 2.1 with a BUN of 64. On today's evaluation of 3 60,020 and seeing the patient for a follow-up. The patient is well sedated, comfortable upper performed which is currently running at 50 g per KG per minute. He remains intubated on a mechanical ventilator. He is on assist control mode of ventilation with tidal volume of 450 and the rate of 22 with an FiO2 of 40% and a PEEP of 5. The morning blood gases showed a pH of 7.46 with a pCO2 of 24 and pO2 of 272. In terms of his cardiac rhythm, the patient remains in the lower rate atrial fibrillation and the low 50s. At times his heart rate goes down to the 40s. He is on norepinephrine infusion which is running at 0.06 g per KG per minute. He has diminished urine output. Creatinine is at 2.1 which is stable and compared to yesterday no major change. Serum bicarbonate 16. IV fluids are running at the rate of 100 and hour of D5 with 3 A of sodium bicarb. His metabolic acidosis improving. Serum bicarb is at 16. No significant bradycardic episodes noted or junctional rhythm overnight. the chest x-ray from today shows adequate expansion of both lungs. ET tube is in a good location. NG tube is in a good location. There is no evidence of any airspace disease or pneumonia on today's chest x-ray. Echocardiogram was also completed yesterday and it showed a left ventricle ejection fraction of 20-25%. The patient has borderline concentric LVH. He has ischemic cardiomyopathy. His pulmonary artery pressures estimated to be around 40. He does have sacral decubitus ulceration, stage II and he has several of them across his buttock. We are putting zinc oxide cream. No signs of infection at this point in time. No fever. Furthermore, the patient was found to have a positive C. diff. He was started on oral vancomycin 250 mg by mouth every 6 hours. His last bout of diarrhea was yesterday. No further bouts of hypoglycemia. Morning blood sugar is 146. He is going to be started on enteral feeding for nutritional support. Objective - Vital Signs Vital signs: Vital Signs Temp 97.4 F L 10/11/19 04:00 Pulse 50 L 10/11/19 07:00 Resp 23 10/11/19 07:00 BP 114/63 10/11/19 06:30 Pulse Ox 100 10/11/19 07:00 Intake & Output 10/10/19 10/11/19 10/11/19 18:59 06:59 18:59 Intake Total 75 1459.583 100 Output Total 165 370 50 Balance -90 1089.583 50 Weight 68 kg 66.1 kg Intake: Intake, IV Titration 75 1459.583 100 Amount Dextrose 5% in Water 1, 1100 100 000 ml @ 100 mls/hr IV . [id number] AJ with Sodium Bicarb (1 Meq/ml) 150 ml Rx#:[id number] Heparin Sod,Pork in 0.45% 29.648 NaCl 25,000 unit In 0.45 % NaCl 1 250ml.bag @ 8 UNITS/KG/HR 5.44 mls/hr IV .Q24H AJ Rx#: [id number] Norepinephrine 4 mg In 209.943 Sodium Chloride 0.9% 250 ml @ 0.05 MCG/KG/MIN 12. 954 mls/hr IV .[id number] AJ Rx#:[id number] Propofol 1,000 mg In 119.992 Empty Bag 1 bag @ Titrate IV .Q0M AJ Rx#: [id number] Sodium Chloride 0.9% 1, 75 000 ml @ 75 mls/hr IV . [id number] AJ Rx#:[id number] Output: Urine 165 370 50 Other: Voiding Method Indwelling Catheter Indwelling Catheter ABP, PAP, CO, CI - Last Documented Arterial Blood Pressure 119/43 - Exam The patient is currently opening up his eyes and withdrawing to painful stimulation. Not following commands yet. Orogastric tube was removed and had to be repositioned. Orotracheal tube is in place. Head exam was generally normal. There was no scleral icterus or corneal arcus. Mucous membranes were moist. Neck was supple and without jugular venous distension, thyromegaly, or carotid bruits. Carotids were easily palpable bilaterally. There was no adenopathy. The patient has very poor dentition. Multiple decayed teeth. Multiple missing teeth. No significant JVDs. Lungs were clear to auscultation and percussion, and with normal diaphragmatic excursion. No wheezes or rales were noted. Heart sounds are bradycardic, positive S1-S2, overall heart sounds are distant. There is a sternotomy scar over the anterior chest. There are transcutaneous pacemaker leads over the anterior chest. No rubs. No cervical murmurs appre ciated. Abdominal exam revealed normal bowel sounds. The abdomen was soft, non-tender, and without masses, organomegaly, or appreciable enlargement of the abdominal aorta. Extremities the patient has an above-knee amputation left lower extremity. Right lower extremity reveals no significant edema. No cyanosis. No clubbing. Pulses are diminished at the present in all 4 extremities. Neurologically, pupils are equal and reactive to light. There is no facial asymmetry. Withdrawing to painful stimulation EXTREMITIES. - Labs CBC & Chem 7: 10/11/19 05:00 10/11/19 05:00 Labs: Abnormal Lab Results - Last 24 Hours (Table) 10/10/19 10/10/19 10/10/19 Range/Units 12:43 12:59 13:01 WBC (3.8-10.6) k/uL Hgb (13.0-17.5) gm/dL Hct (39.0-53.0) % MCHC (31.0-37.0) g/dL RDW (11.5-15.5) % Plt Count (150-450) k/uL Neutrophils # (Manual) (1.3-7.7) k/uL Lymphocytes # (Manual) (1.0-4.8) k/uL Nucleated RBCs (0-0) /100 WBC PT (9.0-12.0) sec INR (<1.2) APTT (22.0-30.0) sec ABG pH (7.35-7.45) ABG pCO2 (35-45) mmHg ABG pO2 (83-108) mmHg ABG HCO3 (21-25) mmol/L ABG Total CO2 (19-24) mmol/L ABG O2 Saturation (94-97) % Sodium (137-145) mmol/L Chloride (98-107) mmol/L Carbon Dioxide (22-30) mmol/L BUN (9-20) mg/dL Creatinine (0.66-1.25) mg/dL Glucose (74-99) mg/dL POC Glucose (mg/dL) 62 L 27 L 68 L (75-99) mg/dL Plasma Lactic Acid Jorge (0.7-2.0) mmol/L Calcium (8.4-10.2) mg/dL Phosphorus (2.5-4.5) mg/dL Troponin I (0.000-0.034) ng/mL C. difficile (EIA) Intrp (Negative) 10/10/19 10/10/19 10/10/19 Range/Units 13:36 13:36 13:36 WBC 13.1 H (3.8-10.6) k/uL Hgb (13.0-17.5) gm/dL Hct (39.0-53.0) % MCHC 28.7 L (31.0-37.0) g/dL RDW 17.4 H (11.5-15.5) % Plt Count 145 L (150-450) k/uL Neutrophils # (Manual) 12.30 H (1.3-7.7) k/uL Lymphocytes # (Manual) 0.26 L (1.0-4.8) k/uL Nucleated RBCs 1 H (0-0) /100 WBC PT 13.9 H (9.0-12.0) sec INR 1.4 H (<1.2) APTT 30.9 H (22.0-30.0) sec ABG pH (7.35-7.45) ABG pCO2 (35-45) mmHg ABG pO2 (83-108) mmHg ABG HCO3 (21-25) mmol/L ABG Total CO2 (19-24) mmol/L ABG O2 Saturation (94-97) % Sodium 135 L (137-145) mmol/L Chloride 109 H (98-107) mmol/L Carbon Dioxide 11 L (22-30) mmol/L BUN 64 H (9-20) mg/dL Creatinine 2.14 H (0.66-1.25) mg/dL Glucose 109 H (74-99) mg/dL POC Glucose (mg/dL) (75-99) mg/dL Plasma Lactic Acid Jorge (0.7-2.0) mmol/L Calcium 7.4 L (8.4-10.2) mg/dL Phosphorus (2.5-4.5) mg/dL Troponin I (0.000-0.034) ng/mL C. difficile (EIA) Intrp (Negative) 10/10/19 10/10/19 10/10/19 Range/Units 18:14 18:20 18:40 WBC (3.8-10.6) k/uL Hgb (13.0-17.5) gm/dL Hct (39.0-53.0) % MCHC (31.0-37.0) g/dL RDW (11.5-15.5) % Plt Count (150-450) k/uL Neutrophils # (Manual) (1.3-7.7) k/uL Lymphocytes # (Manual) (1.0-4.8) k/uL Nucleated RBCs (0-0) /100 WBC PT (9.0-12.0) sec INR (<1.2) APTT (22.0-30.0) sec ABG pH (7.35-7.45) ABG pCO2 (35-45) mmHg ABG pO2 (83-108) mmHg ABG HCO3 (21-25) mmol/L ABG Total CO2 (19-24) mmol/L ABG O2 Saturation (94-97) % Sodium (137-145) mmol/L Chloride (98-107) mmol/L Carbon Dioxide (22-30) mmol/L BUN (9-20) mg/dL Creatinine (0.66-1.25) mg/dL Glucose (74-99) mg/dL POC Glucose (mg/dL) 35 L 197 H 175 H (75-99) mg/dL Plasma Lactic Acid Jorge (0.7-2.0) mmol/L Calcium (8.4-10.2) mg/dL Phosphorus (2.5-4.5) mg/dL Troponin I (0.000-0.034) ng/mL C. difficile (EIA) Intrp (Negative) 10/10/19 10/10/19 10/10/19 Range/Units 18:55 19:00 20:26 WBC (3.8-10.6) k/uL Hgb (13.0-17.5) gm/dL Hct (39.0-53.0) % MCHC (31.0-37.0) g/dL RDW (11.5-15.5) % Plt Count (150-450) k/uL Neutrophils # (Manual) (1.3-7.7) k/uL Lymphocytes # (Manual) (1.0-4.8) k/uL Nucleated RBCs (0-0) /100 WBC PT (9.0-12.0) sec INR (<1.2) APTT (22.0-30.0) sec ABG pH 7.03 L* (7.35-7.45) ABG pCO2 17 L* (35-45) mmHg ABG pO2 >400 H (83-108) mmHg ABG HCO3 4 L* (21-25) mmol/L ABG Total CO2 5 L (19-24) mmol/L ABG O2 Saturation 99.5 H (94-97) % Sodium (137-145) mmol/L Chloride (98-107) mmol/L Carbon Dioxide (22-30) mmol/L BUN (9-20) mg/dL Creatinine (0.66-1.25) mg/dL Glucose (74-99) mg/dL POC Glucose (mg/dL) (75-99) mg/dL Plasma Lactic Acid Jorge (0.7-2.0) mmol/L Calcium (8.4-10.2) mg/dL Phosphorus (2.5-4.5) mg/dL Troponin I 1.370 H* (0.000-0.034) ng/mL C. difficile (EIA) Intrp Positive A (Negative) 10/10/19 10/10/19 10/11/19 Range/Units 20:32 20:33 01:15 WBC (3.8-10.6) k/uL Hgb (13.0-17.5) gm/dL Hct (39.0-53.0) % MCHC (31.0-37.0) g/dL RDW (11.5-15.5) % Plt Count (150-450) k/uL Neutrophils # (Manual) (1.3-7.7) k/uL Lymphocytes # (Manual) (1.0-4.8) k/uL Nucleated RBCs (0-0) /100 WBC PT (9.0-12.0) sec INR (<1.2) APTT (22.0-30.0) sec ABG pH (7.35-7.45) ABG pCO2 19 L* (35-45) mmHg ABG pO2 >400 H (83-108) mmHg ABG HCO3 11 L (21-25) mmol/L ABG Total CO2 11 L (19-24) mmol/L ABG O2 Saturation 100.0 H (94-97) % Sodium (137-145) mmol/L Chloride (98-107) mmol/L Carbon Dioxide (22-30) mmol/L BUN (9-20) mg/dL Creatinine (0.66-1.25) mg/dL Glucose (74-99) mg/dL POC Glucose (mg/dL) (75-99) mg/dL Plasma Lactic Acid Jorge 6.6 H* 2.3 H* (0.7-2.0) mmol/L Calcium (8.4-10.2) mg/dL Phosphorus (2.5-4.5) mg/dL Troponin I (0.000-0.034) ng/mL C. difficile (EIA) Intrp (Negative) 10/11/19 10/11/19 10/11/19 Range/Units 05:00 05:00 05:06 WBC 13.6 H (3.8-10.6) k/uL Hgb 11.6 L (13.0-17.5) gm/dL Hct 38.6 L (39.0-53.0) % MCHC 30.1 L (31.0-37.0) g/dL RDW 17.9 H (11.5-15.5) % Plt Count 126 L (150-450) k/uL Neutrophils # (Manual) 12.50 H (1.3-7.7) k/uL Lymphocytes # (Manual) 0.82 L (1.0-4.8) k/uL Nucleated RBCs 3 H (0-0) /100 WBC PT (9.0-12.0) sec INR (<1.2) APTT (22.0-30.0) sec ABG pH (7.35-7.45) ABG pCO2 (35-45) mmHg ABG pO2 (83-108) mmHg ABG HCO3 (21-25) mmol/L ABG Total CO2 (19-24) mmol/L ABG O2 Saturation (94-97) % Sodium 135 L (137-145) mmol/L Chloride 108 H (98-107) mmol/L Carbon Dioxide 16 L (22-30) mmol/L BUN 66 H (9-20) mg/dL Creatinine 2.18 H (0.66-1.25) mg/dL Glucose 146 H (74-99) mg/dL POC Glucose (mg/dL) 148 H (75-99) mg/dL Plasma Lactic Acid Jorge (0.7-2.0) mmol/L Calcium 6.7 L (8.4-10.2) mg/dL Phosphorus 4.7 H (2.5-4.5) mg/dL Troponin I (0.000-0.034) ng/mL C. difficile (EIA) Intrp (Negative) 10/11/19 Range/Units 05:19 WBC (3.8-10.6) k/uL Hgb (13.0-17.5) gm/dL Hct (39.0-53.0) % MCHC (31.0-37.0) g/dL RDW (11.5-15.5) % Plt Count (150-450) k/uL Neutrophils # (Manual) (1.3-7.7) k/uL Lymphocytes # (Manual) (1.0-4.8) k/uL Nucleated RBCs (0-0) /100 WBC PT (9.0-12.0) sec INR (<1.2) APTT (22.0-30.0) sec ABG pH 7.46 H (7.35-7.45) ABG pCO2 24 L (35-45) mmHg ABG pO2 272 H (83-108) mmHg ABG HCO3 17 L (21-25) mmol/L ABG Total CO2 18 L (19-24) mmol/L ABG O2 Saturation 100.0 H (94-97) % Sodium (137-145) mmol/L Chloride (98-107) mmol/L Carbon Dioxide (22-30) mmol/L BUN (9-20) mg/dL Creatinine (0.66-1.25) mg/dL Glucose (74-99) mg/dL POC Glucose (mg/dL) (75-99) mg/dL Plasma Lactic Acid Jorge (0.7-2.0) mmol/L Calcium (8.4-10.2) mg/dL Phosphorus (2.5-4.5) mg/dL Troponin I (0.000-0.034) ng/mL C. difficile (EIA) Intrp (Negative) Assessment and Plan Plan: 1 acute unresponsiveness, multifactorial. The patient was found to be profoundly hypoglycemic. Subsequently the patient became hemodynamically unstable, the patient became bradycardic and hypotensive and unresponsive requiring intubation mechanical ventilation and pressors. The possibility of an acute CVA cannot be completely ruled out. Blood sugar currently is above 150. He is withdrawing to painful stimulation. No seizure activity has been noted. Current cardiac rhythm as junctional bradycardia, hemodynamically improved with use of norepinephrine infusion is running at 0.08 g per KG per minute. This morning of 10/11/2019, the patient is improved hemodynamically. Blood sugars of normalized. Metabolically is better and there is improvement in his metabolic acidosis. Hemodynamically is improved. In terms of his cardiac rhythm remains in low atrial fibrillation and he has not required any tr anscutaneous pacing. CAT scan of the brain has not been done. Nevertheless, the patient was given a sedation holiday this morning during which she was taken off the propofol and he was able to follow some simple commands. The norepinephrine infusion is running at 0.06 mcg/kg/m. 2 acute hypoglycemia, treated, blood sugars of normalized 3 junctional bradycardia with a possibility of tachybradycardia syndrome, awaiting a pacemaker insertion. Currently the patient has a transcutaneous pacemaker which is on standby. His current rate is in lower 8 atrial fibrillation 4 hypotension, pressor dependent. 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 15 acute respiratory failure secondary to above-mentioned comorbidities and complications. The patient had an acute unresponsiveness and acute hypoxic/respiratory failure. Post intubation examination improved. 16 history of atrial fibrillation 17 chronic anxiety 18 C. diff colitis currently on oral vancomycin 19 stage II sacral decubitus ulceration/pressure ulcers 20 bedbugs per history Plan Discontinue the transcutaneous pacing Talk with cardiology for the possibility of a transvenous pacemaker insertion Continue vent support and drop the tidal volume 400 and drop the FiO2 down to 40% Continue the sodium bicarb infusion for another 24 hours Complete a CAT scan of the brain without contrast Norepinephrine infusion for blood pressure support. Currently the foot is running at 0.06 g per KG per minute Change heparin to subcu heparin for now Monitor the blood sugars and initiate tube feeds for nutritional support in the form of either vital high protein or Nepro and dietary consultation be obtained Oral vancomycin for C. diff colitis IV Protonix Condition is critical. Evaluation was done and morning 30 minutes. No immediate plans for transvenous permanent pacemaker insertion for now. Cardiology is on the case. Time with Patient: Greater than 30
[2019-10-11] MEDS: TAMSULOSIN 0.4 MG CAP.ER.24H PO SCH (11:27)
[2019-10-11] MEDS: ATORVASTATIN 40 MG TAB PO SCH (11:27)
[2019-10-11] MEDS: ASPIRIN 81 MG PO SCH (11:27)
[2019-10-11] MEDS: CHLORHEXIDINE GLUCONATE 15 ML CUP MUCOUS MEM SCH ×2 (11:28→21:46)
[2019-10-11] MEDS: PANTOPRAZOLE 40 MG/10 ML VIAL IVP SCH ×2 (11:28→23:34)
[2019-10-11] MEDS: FLUoxetine HCL 20 MG CAP PO SCH (11:28)
--- NOTE | 2019-10-11 14:48 | CT ---
EXAMINATION TYPE: CT brain wo con DATE OF EXAM: 10/11/2019 COMPARISON: None HISTORY: Patient intubated at time of scan. Altered mental status. CT DLP: 1217.4 mGycm Automated exposure control for dose reduction was used. TECHNIQUE: CT scan of the head is performed without contrast. FINDINGS: Patient is intubated. There is no acute intracranial hemorrhage or midline shift identified . There is diffuse ventricular and sulcal prominence consistent with diffuse age-related cerebral atr ophy. Old appearing lacunar injury of the left lateral dre. There is near CSF attenuation. Old appea ring lacunar injury is also seen of the right periventricular white matter of the frontal lobe with e x vacuo dilatation of the anterior horn of the right lateral ventricle. There is low-attenuation in t he periventricular white matter consistent with chronic small vessel ischemic change. Frontal sinuses are aplastic. The globes are intact and the visualized sinuses are clear. Atherosclerosis is seen of the intracranial vasculature. IMPRESSION: No acute intracranial hemorrhage or midline shift. Multifocal old appearing lacunar inj uries. There is diffuse age-related cerebral atrophy and chronic small vessel ischemic change noted.
--- NOTE | 2019-10-11 15:04 | P.HPIM ---
History of Present Illness H&P Date: 10/11/19 64-year-old male patient who got transferred from [facility] because of tachybradycardia syndrome and ongoing cardiac arrhythmias and for that reason the patient got transferred to [facility] for cardiac evaluation and possible pacemaker insertion; he was found to be tachycardic and irregular rhythm possible atrial fibrillation. He was given a liter of IV fluids and he was placed on Cardizem drip and amiodarone drip and subsequently his heart rate dropped in the low 30s with junctional rhythm. The patient was also found to have elevated troponin and was a concern for an acute non-STEMI. . 10/11/2019 After patient came to ICU, the patient had an acute episode where he became unresponsive. A code stroke was called. Immediately a blood sugar was checked and the blood sugar was 35. The patient was given D50. She remained unresponsive; and became more bradycardic with heart rate dropped down to the low 30s in a junctional rhythm. His blood pressure was undetectable; breathing became agonal. He became completely unresponsive. A code was called and patient was immediately intubated. Review of Systems ROS unobtainable: due to endotracheal tube Past Medical History Past Medical History: Atrial Fibrillation, Coronary Artery Disease (CAD), COPD, Diabetes Mellitus, GERD/Reflux, Hyperlipidemia, Hypertension, Myocardial Infarction ([place]), Thyroid Disorder, Vascular Disorder Additional Past Medical History / Comment(s): Other Hx: Chronic kidney disease stage III, hypothyroid, PAD, diverticular dx, past ETOH abuse. Anxiety/Dep ression Last Myocardial Infarction Date:: 09/2011 History of Any Multi-Drug Resistant Organisms: None Reported Past Surgical History: Cardiac Valve Replacement, Heart Catheterization With Stent Additional Past Surgical History / Comment(s): Mitral Valve replacement, Left above the knee amputation, Femoral-Popliteal Bypass. Endarterectomy Past Anesthesia/Blood Transfusion Reactions: No Reported Reaction Date of Last Stent Placement:: 09/2011 Past Psychological History: Anxiety, Depression Additional Psychological History / Comment(s): Pt resides alone. He uses a cane to ambulate and has a L foot medi shoe. He does not drive. He gets to appts with his cousin. Infestation of bed bugs noted at patients apartment. Smoking Status: Current every day smoker Past Alcohol Use History: Occasional Additional Past Alcohol Use History / Comment(s): Pt started smoking in 1977 and is a ppd smoker. He states he drinks less than 14 drinks per week but used to drink heavier. Past Drug Use History: Marijuana - Past Family History Mother Family Medical History: Diabetes Mellitus, Deep Vein Thrombosis (DVT) Medications and Allergies Home Medications Medication Instructions Recorded Confirmed Type FLUoxetine HCL [PROzac] 20 mg PO DAILY 03/26/15 10/10/19 History Levothyroxine Sodium [Synthroid] 25 mcg PO DAILY 03/26/15 10/10/19 History Acetaminophen Tab [Tylenol] 650 mg PO Q6HR PRN tab 10/04/17 10/10/19 Rx Ipratropium-Albuterol Nebulize 3 ml INHALATION RT-QID ampul.neb 10/04/1712/24 Rx [Duoneb 0.5 mg-3 mg/3 ml Soln] Allopurinol [Zyloprim] 100 mg PO DAILY 10/10/19 10/10/19 History Clopidogrel [Plavix] 75 mg PO DAILY 10/10/19 10/10/19 History HYDROcodone/APAP 10-325MG [[place] 1 tab PO QID PRN 10/10/19 10/10/19 History 10-325] Lisinopril [Zestril] 2.5 mg PO DAILY 10/10/19 10/10/19 History Metoprolol Tartrate [Lopressor] 50 mg PO BID 10/10/19 10/10/19 History Allergies Allergy/AdvReac Type Severity Reaction Status Date / Time No Known Allergies Allergy Verified 10/10/19 14:02 Physical Exam Vitals: Vital Signs Temp Pulse Resp BP Pulse Ox 10/11/19 07:00 50 L 23 100 10/11/19 06:30 47 L 23 114/63 100 10/11/19 06:00 47 L 23 114/63 100 10/11/19 05:30 52 L 23 132/66 100 10/11/19 05:00 49 L 17 100 10/11/19 04:30 47 L 23 132/76 100 10/11/19 04:00 97.4 F L 50 L 23 131/72 100 10/11/19 03:30 49 L 22 132/65 100 10/11/19 03:00 49 L 22 133/61 100 10/11/19 02:30 48 L 15 133/61 100 10/11/19 02:00 48 L 14 100 10/11/19 01:30 49 L 14 100 10/11/19 01:00 51 L 9 L 99 10/11/19 00:30 49 L 11 L 100 10/11/19 00:14 51 L 14 100 10/11/19 00:00 97.5 F L 51 L 15 140/59 100 10/10/19 23:30 50 L 15 139/67 100 10/10/19 23:00 49 L 15 130/57 100 10/10/19 22:30 49 L 17 143/49 100 10/10/19 22:00 49 L 17 114/61 100 10/10/19 21:30 49 L 17 131/37 100 10/10/19 21:00 50 L 17 121/43 100 10/10/19 20:30 51 L 18 105/59 100 10/10/19 20:00 97.6 F 57 L 22 102/51 100 10/10/19 19:30 64 12 103/79 100 10/10/19 19:00 47 L 29 H 99 10/10/19 18:30 79 10 L 50/34 91 L 10/10/19 18:00 64 21 114/49 97 10/10/19 17:00 58 L 30 H 138/44 10/10/19 16:00 56 L 22 120/62 10/10/19 15:30 56 L 19 144/31 10/10/19 15:00 64 21 128/71 10/10/19 14:30 55 L 12 98 10/10/19 14:00 53 L 14 147/76 10/10/19 13:30 76 20 136/88 99 10/10/19 13:00 64 12 131/63 98 Intake and Output 10/10/19 10/11/19 10/11/19 22:59 06:59 14:59 Intake Total 914.492 9024.028 200 Output Total 210 250 50 Balance 236.555 838.028 150 Intake: Intake, IV Titration 791.780 3664.028 200 Amount Dextrose 5% in Water 1, 300 800 100 000 ml @ 100 mls/hr IV . [id number] AJ with Sodium Bicarb (1 Meq/ml) 150 ml Rx#:[id number] Heparin Sod,Pork in 0.45% 29.648 NaCl 25,000 unit In 0.45 % NaCl 1 250ml.bag @ 8 UNITS/KG/HR 5.44 mls/hr IV .Q24H AJ Rx#: [id number] Norepinephrine 4 mg In 19.603 190.340 Sodium Chloride 0.9% 250 ml @ 0.05 MCG/KG/MIN 12. 954 mls/hr IV .[id number] AJ Rx#:[id number] Propofol 1,000 mg In 22.304 97.688 100 Empty Bag 1 bag @ Titrate IV .Q0M AJ Rx#: [id number] Sodium Chloride 0.9% 1, 75 000 ml @ 75 mls/hr IV . [id number] AJ Rx#:[id number] Output: Urine 210 250 50 Other: Voiding Method Indwelling Catheter Indwelling Catheter Weight 66.1 kg 66.1 kg ABP, PAP, CO, CI - Last 8 Hours Arterial Blood Pressure 119/43 Arterial Blood Pressure 119/45 Arterial Blood Pressure 121/49 Arterial Blood Pressure 134/44 Arterial Blood Pressure 137/51 Arterial Blood Pressure 139/53 Arterial Blood Pressure 136/48 The patient is currently opening up his eyes and withdrawing to painful stimulation. Not following commands yet. Orogastric tube was removed and had to be repositioned. Orotracheal tube is in place. Head exam was generally normal. There was no scleral icterus or corneal arcus. Mucous membranes were moist. Neck was supple and without jugular venous distension, thyromegaly, or carotid bruits. Carotids were easily palpable bilaterally. There was no adenopathy. The patient has very poor dentition. Multiple decayed teeth. Multiple missing teeth. No significant JVDs. Lungs were clear to auscultation and percussion, and with normal diaphragmatic excursion. No wheezes or rales were noted. Heart sounds are bradycardic, positive S1-S2, overall heart sounds are distant. There is a sternotomy scar over the anterior chest. There are transcutaneous pacemaker leads over the anterior chest. No rubs. No cervical murmurs appreciated. Abdominal exam revealed normal bowel sounds. The abdomen was soft, non-tender, and without masses, organomegaly, or appreciable enlargement of the abdominal aorta. Extremities the patient has an above-knee amputation left lower extremity. Right lower extremity reveals no significant edema. No cyanosis. No clubbing. Pulses are diminished at the present in all 4 extremities. Neurologically, pupils are equal and reactive to light. There is no facial asymmetry. Results CBC & Chem 7: 10/11/19 05:00 10/11/19 05:00 Labs: Abnormal Lab Results - Last 24 Hours (Table) 10/10/19 10/10/19 10/10/19 Range/Units 12:43 12:59 13:01 WBC (3.8-10.6) k/uL Hgb (13.0-17.5) gm/dL Hct (39.0-53.0) % MCHC (31.0-37.0) g/dL RDW (11.5-15.5) % Plt Count (150-450) k/uL Neutrophils # (Manual) (1.3-7.7) k/uL Lymphocytes # (Manual) (1.0-4.8) k/uL Nucleated RBCs (0-0) /100 WBC PT (9.0-12.0) sec INR (<1.2) APTT (22.0-30.0) sec ABG pH (7.35-7.45) ABG pCO2 (35-45) mmHg ABG pO2 (83-108) mmHg ABG HCO3 (21-25) mmol/L ABG Total CO2 (19-24) mmol/L ABG O2 Saturation (94-97) % Sodium (137-145) mmol/L Chloride (98-107) mmol/L Carbon Dioxide (22-30) mmol/L BUN (9-20) mg/dL Creatinine (0.66-1.25) mg/dL Glucose (74-99) mg/dL POC Glucose (mg/dL) 62 L 27 L 68 L (75-99) mg/dL Plasma Lactic Acid Jorge (0.7-2.0) mmol/L Calcium (8.4-10.2) mg/dL Phosphorus (2.5-4.5) mg/dL Troponin I (0.000-0.034) ng/mL C. difficile (EIA) Intrp (Negative) 10/10/19 10/10/19 10/10/19 Range/Units 13:36 13:36 13:36 WBC 13.1 H (3.8-10.6) k/uL Hgb (13.0-17.5) gm/dL Hct (39.0-53.0) % MCHC 28.7 L (31.0-37.0) g/dL RDW 17.4 H (11.5-15.5) % Plt Count 145 L (150-450) k/uL Neutrophils # (Manual) 12.30 H (1.3-7.7) k/uL Lymphocytes # (Manual) 0.26 L (1.0-4.8) k/uL Nucleated RBCs 1 H (0-0) /100 WBC PT 13.9 H (9.0-12.0) sec INR 1.4 H (<1.2) APTT 30.9 H (22.0-30.0) sec ABG pH (7.35-7.45) ABG pCO2 (35-45) mmHg ABG pO2 (83-108) mmHg ABG HCO3 (21-25) mmol/L ABG Total CO2 (19-24) mmol/L ABG O2 Saturation (94-97) % Sodium 135 L (137-145) mmol/L Chloride 109 H (98-107) mmol/L Carbon Dioxide 11 L (22-30) mmol/L BUN 64 H (9-20) mg/dL Creatinine 2.14 H (0.66-1.25) mg/dL Glucose 109 H (74-99) mg/dL POC Glucose (mg/dL) (75-99) mg/dL Plasma Lactic Acid Jorge (0.7-2.0) mmol/L Calcium 7.4 L (8.4-10.2) mg/dL Phosphorus (2.5-4.5) mg/dL Troponin I (0.000-0.034) ng/mL C. difficile (EIA) Intrp (Negative) 10/10/19 10/10/19 10/10/19 Range/Units 18:14 18:20 18:40 WBC (3.8-10.6) k/uL Hgb (13.0-17.5) gm/dL Hct (39.0-53.0) % MCHC (31.0-37.0) g/dL RDW (11.5-15.5) % Plt Count (150-450) k/uL Neutrophils # (Manual) (1.3-7.7) k/uL Lymphocytes # (Manual) (1.0-4.8) k/uL Nucleated RBCs (0-0) /100 WBC PT (9.0-12.0) sec INR (<1.2) APTT (22.0-30.0) sec ABG pH (7.35-7.45) ABG pCO2 (35-45) mmHg ABG pO2 (83-108) mmHg ABG HCO3 (21-25) mmol/L ABG Total CO2 (19-24) mmol/L ABG O2 Saturation (94-97) % Sodium (137-145) mmol/L Chloride (98-107) mmol/L Carbon Dioxide (22-30) mmol/L BUN (9-20) mg/dL Creatinine (0.66-1.25) mg/dL Glucose (74-99) mg/dL POC Glucose (mg/dL) 35 L 197 H 175 H (75-99) mg/dL Plasma Lactic Acid Jorge (0.7-2.0) mmol/L Calcium (8.4-10.2) mg/dL Phosphorus (2.5-4.5) mg/dL Troponin I (0.000-0.034) ng/mL C. difficile (EIA) Intrp (Negative) 10/10/19 10/10/19 10/10/19 Range/Units 18:55 19:00 20:26 WBC (3.8-10.6) k/uL Hgb (13.0-17.5) gm/dL Hct (39.0-53.0) % MCHC (31.0-37.0) g/dL RDW (11.5-15.5) % Plt Count (150-450) k/uL Neutrophils # (Manual) (1.3-7.7) k/uL Lymphocytes # (Manual) (1.0-4.8) k/uL Nucleated RBCs (0-0) /100 WBC PT (9.0-12.0) sec INR (<1.2) APTT (22.0-30.0) sec ABG pH 7.03 L* (7.35-7.45) ABG pCO2 17 L* (35-45) mmHg ABG pO2 >400 H (83-108) mmHg ABG HCO3 4 L* (21-25) mmol/L ABG Total CO2 5 L (19-24) mmol/L ABG O2 Saturation 99.5 H (94-97) % Sodium (137-145) mmol/L Chloride (98-107) mmol/L Carbon Dioxide (22-30) mmol/L BUN (9-20) mg/dL Creatinine (0.66-1.25) mg/dL Glucose (74-99) mg/dL POC Glucose (mg/dL) (75-99) mg/dL Plasma Lactic Acid Jorge (0.7-2.0) mmol/L Calcium (8.4-10.2) mg/dL Phosphorus (2.5-4.5) mg/dL Troponin I 1.370 H* (0.000-0.034) ng/mL C. difficile (EIA) Intrp Positive A (Negative) 10/10/19 10/10/19 10/11/19 Range/Units 20:32 20:33 01:15 WBC (3.8-10.6) k/uL Hgb (13.0-17.5) gm/dL Hct (39.0-53.0) % MCHC (31.0-37.0) g/dL RDW (11.5-15.5) % Plt Count (150-450) k/uL Neutrophils # (Manual) (1.3-7.7) k/uL Lymphocytes # (Manual) (1.0-4.8) k/uL Nucleated RBCs (0-0) /100 WBC PT (9.0-12.0) sec INR (<1.2) APTT (22.0-30.0) sec ABG pH (7.35-7.45) ABG pCO2 19 L* (35-45) mmHg ABG pO2 >400 H (83-108) mmHg ABG HCO3 11 L (21-25) mmol/L ABG Total CO2 11 L (19-24) mmol/L ABG O2 Saturation 100.0 H (94-97) % Sodium (137-145) mmol/L Chloride (98-107) mmol/L Carbon Dioxide (22-30) mmol/L BUN (9-20) mg/dL Creatinine (0.66-1.25) mg/dL Glucose (74-99) mg/dL POC Glucose (mg/dL) (75-99) mg/dL Plasma Lactic Acid Jorge 6.6 H* 2.3 H* (0.7-2.0) mmol/L Calcium (8.4-10.2) mg/dL Phosphorus (2.5-4.5) mg/dL Troponin I (0.000-0.034) ng/mL C. difficile (EIA) Intrp (Negative) 10/11/19 10/11/19 10/11/19 Range/Units 05:00 05:00 05:06 WBC 13.6 H (3.8-10.6) k/uL Hgb 11.6 L (13.0-17.5) gm/dL Hct 38.6 L (39.0-53.0) % MCHC 30.1 L (31.0-37.0) g/dL RDW 17.9 H (11.5-15.5) % Plt Count 126 L (150-450) k/uL Neutrophils # (Manual) 12.50 H (1.3-7.7) k/uL Lymphocytes # (Manual) 0.82 L (1.0-4.8) k/uL Nucleated RBCs 3 H (0-0) /100 WBC PT (9.0-12.0) sec INR (<1.2) APTT (22.0-30.0) sec ABG pH (7.35-7.45) ABG pCO2 (35-45) mmHg ABG pO2 (83-108) mmHg ABG HCO3 (21-25) mmol/L ABG Total CO2 (19-24) mmol/L ABG O2 Saturation (94-97) % Sodium 135 L (137-145) mmol/L Chloride 108 H (98-107) mmol/L Carbon Dioxide 16 L (22-30) mmol/L BUN 66 H (9-20) mg/dL Creatinine 2.18 H (0.66-1.25) mg/dL Glucose 146 H (74-99) mg/dL POC Glucose (mg/dL) 148 H (75-99) mg/dL Plasma Lactic Acid Jorge (0.7-2.0) mmol/L Calcium 6.7 L (8.4-10.2) mg/dL Phosphorus 4.7 H (2.5-4.5) mg/dL Troponin I (0.000-0.034) ng/mL C. difficile (EIA) Intrp (Negative) 10/11/19 Range/Units 05:19 WBC (3.8-10.6) k/uL Hgb (13.0-17.5) gm/dL Hct (39.0-53.0) % MCHC (31.0-37.0) g/dL RDW (11.5-15.5) % Plt Count (150-450) k/uL Neutrophils # (Manual) (1.3-7.7) k/uL Lymphocytes # (Manual) (1.0-4.8) k/uL Nucleated RBCs (0-0) /100 WBC PT (9.0-12.0) sec INR (<1.2) APTT (22.0-30.0) sec ABG pH 7.46 H (7.35-7.45) ABG pCO2 24 L (35-45) mmHg ABG pO2 272 H (83-108) mmHg ABG HCO3 17 L (21-25) mmol/L ABG Total CO2 18 L (19-24) mmol/L ABG O2 Saturation 100.0 H (94-97) % Sodium (137-145) mmol/L Chloride (98-107) mmol/L Carbon Dioxide (22-30) mmol/L BUN (9-20) mg/dL Creatinine (0.66-1.25) mg/dL Glucose (74-99) mg/dL POC Glucose (mg/dL) (75-99) mg/dL Plasma Lactic Acid Jorge (0.7-2.0) mmol/L Calcium (8.4-10.2) mg/dL Phosphorus (2.5-4.5) mg/dL Troponin I (0.000-0.034) ng/mL C. difficile (EIA) Intrp (Negative) Thrombosis Risk Factor Assmnt - Choose All That Apply Any of the Below Risk Factors Present?: Yes Each Factor Represents 1 point: Abnormal pulmonary function (COPD), Acute [place] Other Risk Factors: Yes Each Risk Factor Represents 2 Points: Age 61-74 years, Patient confined to bed Other congenital or acquired thrombophilia - If yes, enter type in comment: No Thrombosis Risk Factor Assessment Total Risk Factor Score: 6 Thrombosis Risk Factor Assessment Level: High Risk Assessment and Plan Assessment: 1. Acute unresponsiveness/ hypoxic respiratory failure requiring intubation mechanical ventilation and pressors; possibly multifactorial. The possibility of an acute CVA cannot be completely ruled out. Blood sugar currently is above 150. He is withdrawing to painful stimulation. No seizure activity has been noted. Current cardiac rhythm as junctional bradycardia, hemodynamically improved with use of norepinephrine infusion is running at 0.08 g per KG per minute. 2. Acute hypoglycemia, treated, blood sugars of normalized fourth D10; we will continue to monitor Accu-Cheks every 4 hours and treat accordingly 3. Junctional bradycardia with a possibility of tachybradycardia syndrome, awaiting a pacemaker insertion. Currently the patient has a transcutaneous pacemaker which is on standby. His current rate is in lower 80 atrial fibrillation 4. Hypertension; patient is currently hypotensive and pressor dependent. Rule out cardiogenic shock, echocardiogram was done and his ejection fraction is around 20-25% 5. Coronary artery disease with previous history of or intervention and stenting, acute non-STEMIacute non-STEMI with troponins being at 0.8 and 0.62 6. CHF with ischemic cardiomyopathy and ejection fraction of 20-25% 7. Chronic stage III kidney disease; baseline 8. Hypothyroidism; continue with home dose of levothyroxine 25 MCG daily 9. C. diff colitis; patient started on oral vancomycin DVT prophylaxis; subcu heparin CODE STATUS; full code Time with Patient: Greater than 30
[2019-10-11 15:16] LABS: Glucose,Whole Blood 139 mg/dL (75-99)
[2019-10-11] MEDS: HEPARIN SODIUM,PORCINE 5,000 UNIT/ML 1 ML VIAL SQ SCH (15:49)
[2019-10-11] MEDS: hydrALAZINE HCL 25 MG TAB PO SCH ×2 (15:50→21:57)
[2019-10-11] MEDS: DOPamine DRIP 800 MG in DEXTROSE/WATER 1 250ML.BAG IV SCH ×2 (15:50→23:30)
[2019-10-11 16:54] LABS: Calcium 6.6 mg/dL (8.4-10.2); Magnesium 2.2 mg/dL (1.6-2.3); Potassium 2.9 mmol/L (3.5-5.1)
[2019-10-11 18:42] LABS: Glucose,Whole Blood 127 mg/dL (75-99)
[2019-10-11] MEDS ORDERED: Potassium Replacement Protocol 1 EACH MISC MISCELLANE PRN (21:58)
[2019-10-11] MEDS: POTASSIUM BICARBONATE/CIT AC 20 MEQ TABLET.EFF NG-TUBE SCH ×2 (22:44→23:37)
[2019-10-12] MEDS: VANCOMYCIN ORAL SOLUTION 250 MG/5 ML BOTTLE PO SCH ×4 (01:26→19:40)
[2019-10-12] MEDS: HEPARIN SODIUM,PORCINE 5,000 UNIT/ML 1 ML VIAL SQ SCH (01:26)
[2019-10-12] MEDS: CHERRY FLAVOR 60 ML BOTTLE PO SCH ×4 (01:27→19:40)
[2019-10-12] MEDS: POTASSIUM BICARBONATE/CIT AC 20 MEQ TABLET.EFF NG-TUBE SCH (01:29)
[2019-10-12 05:02] LABS: ABG Base Excess 5.4 mmol/L; ABG HCO3 27 mmol/L (21-25); ABG PCO2 30 mmHg (35-45); ABG PO2 191 mmHg (83-108); ABG TCO2 28 mmol/L (19-24); Allen Test Performed? Yes
[2019-10-12 05:02] LABS: Glucose,Whole Blood 133 mg/dL (75-99)
[2019-10-12] MEDS: DEXTROSE 5% IN WATER 1,000 ML with SODIUM BICARB (1 MEQ/ML) 150 ML IV SCH (06:07)
[2019-10-12 06:11] LABS: Glucose,Whole Blood 123 mg/dL (75-99)
[2019-10-12] MEDS: LEVOTHYROXINE 25 MCG TAB PO SCH (06:12)
[2019-10-12 06:40] LABS: Anisocytosis Slight; Basophils % (A) 0 %; Eosinophils % (A) 0 %; HGB 11.7 gm/dL (13.0-17.5); Hypochromasia Slight; Lymphocytes # (A) 0.9 k/uL (1.0-4.8); Lymphocytes % (A) 8 %; MCH 26.2 pg (25.0-35.0); MCHC 31.5 g/dL (31.0-37.0); MCV 83.4 fL (80.0-100.0); Mean Platelet Volume 10.3; Monocytes # (A) 0.4 k/uL (0-1.0); Monocytes % (A) 3 %; Neutrophils # (A) 10.3 k/uL (1.3-7.7); Neutrophils % (A) 88 %; RBC 4.44 m/uL (4.30-5.90); RDW 18.1 % (11.5-15.5); WBC 11.7 k/uL (3.8-10.6)
[2019-10-12 06:59] LABS: Calcium 6.6 mg/dL (8.4-10.2); Potassium 3.6 mmol/L (3.5-5.1)
[2019-10-12] MEDS ORDERED: Potassium Replacement Protocol 1 EACH MISC MISCELLANE PRN (07:02)
[2019-10-12 07:06] LABS: Anisocytosis (M) Present; Crenated RBC Present; Ovalocytes Present; Platelet Count 78 k/uL (150-450); Poikilocytosis (M) Present; Target Cells Present
--- NOTE | 2019-10-12 07:16 | XR ---
EXAMINATION TYPE: XR chest 1V portable DATE OF EXAM: 10/12/2019 CLINICAL HISTORY: Difficulty breathing progress study. TECHNIQUE: Single AP portable semiupright view of the chest is obtained. COMPARISON: Chest x-ray from one day earlier and older studies. FINDINGS: Interval advancement of orogastric tube below left hemidiaphragm. Stable endotracheal tube. Overlying sternal wires with cardiac metallic aortic valve and closure device redemonstrated. [place] ing EKG leads again seen. Developing right lower lung opacity. Left lung base not completely imaged. Visualized left lung clear. Cardiac silhouette size stable and upper limits of normal. Osseous struct ures intact. IMPRESSION: Interval advancement of orogastric tube. New small right pleural effusion and associated right basilar atelectasis and/or infiltrate noted.
[2019-10-12] MEDS ORDERED: POTASSIUM BICARBONATE/CIT AC 20 MEQ TABLET.EFF NG-TUBE SCH (08:00)
--- NOTE | 2019-10-12 08:25 | P.PN ---
Subjective Progress Note Date: 10/12/19 This is a 64-year-old male patient who got transferred from [facility] because of tachybradycardia syndrome and ongoing cardiac arrhythmias and for that reason the patient got transferred to [facility] for cardiac evaluation and possible pacemaker insertion. The patient presented there in a poor health and living condition. He was having difficulties in taking care of himself because of an amputated left lower extremity above the knee. According to the hospital staff, the patient has been very weak and he was found to be at home covered with feces and possible bedbugs. He was brought into [facility] where he was found to be tachycardic and irregular rhythm possible atrial fibrillation. He was given a liter of IV fluids and he was placed on Cardizem drip and amiodarone drip and subsequently his heart rate dropped in the low 30s with junctional rhythm. The patient was also found to have elevated troponin and was a concern for an acute non-STEMI. 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 He is also known to have mild to moderate impairment of the LV with an ejection fraction depressed in the order of 40%, history of peripheral vascular disease, above- knee amputation left lower extremity, COPD, moderate to severe right internal carotid artery stenosis, chronic atrial fibrillation, stage III kidney disease, smoker, depression, hypertension, coronary artery disease with previous coronary stent placement, hypothyroidism, and acid reflux. The patient also has history of chronic anemia of an iron deficiency type. After he came in to our intensive care unit, the patient had an acute episode where he became unresponsive. A code stroke was called. Immediately a blood sugar was checked and the blood sugar was 35. The patient was given D50. She remained unresponsive. He be became more bradycardic with heart rate dropped down to the low 30s in a junctional rhythm. His blood pressure was undetectable although he had a very thready pulse. The pulses were weak mainly obtained in the right femoral area. She became agonal breathing. He became completely unresponsive. A code was called. I attended disclose. The patient was immediately intubated. I was able to successfully intubate the patient by #8 orotracheal tube. Subsequently I was able to insert a triple lumen catheter in his right femoral vein and it off and catheter in his right femoral artery. He was started on levo fed during this process and he was also given 1 amp of epinephrine. Currently norepinephrine is running at 0.08 g per KG per minute. His most recent blood pressure is 152/58. His current cardiac rhythm is junctional at the rate of 45 and external transcutaneous pacers was applied. Beaulieu catheter is in place. He is hypothermic and after optimizing his condition, the patient started having some response already started following some simple commands where he would open up his eyes upon demand, move around and breathable mechanical ventilator. Currently is on assist control mode at the rate of 20 to a tidal volume of 50 and FiO2 of 100% and a PEEP of 5. Chest x-ray shows adequate expansion of both lungs. No evidence of any pneumothorax. ET tube is in a good location. Presented was down by around 2 cm. NG tube was in the right mainstem and had to be pulled artery position. The follow-up blood sugar was 150. Cardiology will be made aware of these changes. The blood work from here shows a component of metabolic acidosis with a bicarb level of 11. Post intubation blood gases showed a pH of 7.03 with a pCO2 of 17 and a pO2 of more than 400 and FiO2 of 100%. INR is at 1.4. Creatinine is at 2.1 with a BUN of 64. On today's evaluation of 3 60,020 and seeing the patient for a follow-up. The patient is well sedated, comfortable upper performed which is currently running at 50 g per KG per minute. He remains intubated on a mechanical ventilator. He is on assist control mode of ventilation with tidal volume of 450 and the rate of 22 with an FiO2 of 40% and a PEEP of 5. The morning blood gases showed a pH of 7.46 with a pCO2 of 24 and pO2 of 272. In terms of his cardiac rhythm, the patient remains in the lower rate atrial fibrillation and the low 50s. At times his heart rate goes down to the 40s. He is on norepinephrine infusion which is running at 0.06 g per KG per minute. He has diminished urine output. Creatinine is at 2.1 which is stable and compared to yesterday no major change. Serum bicarbonate 16. IV fluids are running at the rate of 100 and hour of D5 with 3 A of sodium bicarb. His metabolic acidosis improving. Serum bicarb is at 16. No significant bradycardic episodes noted or junctional rhythm overnight. the chest x-ray from today shows adequate expansion of both lungs. ET tube is in a good location. NG tube is in a good location. There is no evidence of any airspace disease or pneumonia on today's chest x-ray. Echocardiogram was also completed yesterday and it showed a left ventricle ejection fraction of 20-25%. The patient has borderline concentric LVH. He has ischemic cardiomyopathy. His pulmonary artery pressures estimated to be around 40. He does have sacral decubitus ulceration, stage II and he has several of them across his buttock. We are putting zinc oxide cream. No signs of infection at this point in time. No fever. Furthermore, the patient was found to have a positive C. diff. He was started on oral vancomycin 250 mg by mouth every 6 hours. His last bout of diarrhea was yesterday. No further bouts of hypoglycemia. Morning blood sugar is 146. He is going to be started on enteral feeding for nutritional support. His evaluation of 10/12/2019 and see the patient for a follow-up. The patient is still intubated on a mechanical ventilator. The vent setting this morning includes an assist-control 14 with a tidal volume of 400 and FiO2 of 40% with a PEEP of 5. Blood gases showed a component of metabolic and respiratory alkalosis. PH was at 7.58 with a pCO2 of 30 and pO2 191. This was done with an FiO2 of 40%. The chest x-ray from today showed adequate positioning of the ET tube. The patient has no evidence of any pulmonary edema or consolidation. He may have some increased pulmonary vessel congestion right more than left. ET tube is in a good location. He has a mitral valve ring. Based on this respiratory alkalosis, discontinue the bicarb infusion I dropped a respiratory rate down to 14 this morning. Earlier aspirate was 22. The patient has no significant orotracheal secretions. He is not febrile. His blood sugars of a well-maintained and he had not had any further episodes of hypoglycemia. I'm in the process of getting this patient a sedation holiday to assess his mental status and assess his candidacy for further weaning. Hemodynamically he is in atrial fibrillation lower right with the lowest heart rate being in the 40s. He is still on norepinephrine infusion running at 0.06 g per KG per minute. Urine output is adequate and the creatinine is also improving and the creatinine is down to 1.53. The rest of the blood work shows that the troponin maxed at 7.9 consistent with acute non-STEMI. Echocardiogram showed improvement in LV function and this is a recent drop in his LV with ejection fraction is down to 20-25%. Objective - Vital Signs Vital signs: Vital Signs Temp 97.9 F 10/12/19 04:00 Pulse 61 10/12/19 07:00 Resp 14 10/12/19 07:00 BP 109/65 10/12/19 07:00 Pulse Ox 97 10/12/19 07:00 Intake & Output 10/11/19 10/12/19 10/12/19 18:59 06:59 18:59 Intake Total 1800 1325 Output Total 570 850 100 Balance 1230 475 -100 Weight 66.1 kg Intake: IV 1600 800 Dextrose 5% in Water 1, 1600 800 000 ml @ 100 mls/hr IV . [id number] AJ with Sodium Bicarb (1 Meq/ml) 150 ml Rx#:[id number] Intake, IV Titration 200 400 Amount Dextrose 5% in Water 1, 100 400 000 ml @ 100 mls/hr IV . [id number] AJ with Sodium Bicarb (1 Meq/ml) 150 ml Rx#:[id number] Propofol 1,000 mg In 100 Empty Bag 1 bag @ Titrate IV .Q0M AJ Rx#: [id number] Oral 100 Tube Feeding 25 Output: Urine 570 850 100 Other: Voiding Method Indwelling Catheter Indwelling Catheter ABP, PAP, CO, CI - Last Documented Arterial Blood Pressure 136/48 - Exam The patient is currently opening up his eyes and withdrawing to painful stimulation. Not following commands yet. Orogastric tube was removed and had to be repositioned. Orotracheal tube is in place. Head exam was generally normal. There was no scleral icterus or corneal arcus. Mucous membranes were moist. Neck was supple and without jugular venous distension, thyromegaly, or carotid bruits. Carotids were easily palpable bilaterally. There was no adenopathy. The patient has very poor dentition. Multiple decayed teeth. Multiple missing teeth. No significant JVDs. Lungs were clear to auscultation and percussion, and with normal diaphragmatic excursion. No wheezes or rales were noted. Heart sounds are bradycardic, positive S1-S2, overall heart sounds are distant. There is a sternotomy scar over the anterior chest. There are transcutaneous pacemaker leads over the anterior chest. No rubs. No cervical murmurs appreciated. Abdominal exam revealed normal bowel sounds. The abdomen was soft, non-tender, and without masses, organomegaly, or appreciable enlargement of the abdominal aorta. Extremities the patient has an above-knee amputation left lower extremity. Right lower extremity reveals no significant edema. No cyanosis. No clubbing. Pulses are diminished at the present in all 4 extremities. The patient is a triple-lumen catheter/Art line Catheter in his right groin in the right femoral vein and artery. Neurologically, pupils are equal and reactive to light. There is no facial asymmetry. Withdrawing to painful stimulation EXTREMITIES. - Labs CBC & Chem 7: 10/12/19 05:30 10/12/19 05:30 Labs: Abnormal Lab Results - Last 24 Hours (Table) 10/11/19 10/11/19 10/11/19 Range/Units 15:15 15:15 15:15 WBC (3.8-10.6) k/uL Hgb (13.0-17.5) gm/dL Hct (39.0-53.0) % RDW (11.5-15.5) % Plt Count (150-450) k/uL Neutrophils # (1.3-7.7) k/uL Lymphocytes # (1.0-4.8) k/uL ABG pH (7.35-7.45) ABG pCO2 (35-45) mmHg ABG pO2 (83-108) mmHg ABG HCO3 (21-25) mmol/L ABG Total CO2 (19-24) mmol/L ABG O2 Saturation (94-97) % Sodium 135 L (137-145) mmol/L Potassium 2.9 L (3.5-5.1) mmol/L Chloride 108 H (98-107) mmol/L BUN 62 H (9-20) mg/dL Creatinine 1.92 H (0.66-1.25) mg/dL Glucose 133 H (74-99) mg/dL POC Glucose (mg/dL) 139 H (75-99) mg/dL Calcium 6.6 L (8.4-10.2) mg/dL Troponin I 5.260 H* (0.000-0.034) ng/mL 10/11/19 10/12/19 10/12/19 Range/Units 18:41 05:00 05:10 WBC (3.8-10.6) k/uL Hgb (13.0-17.5) gm/dL Hct (39.0-53.0) % RDW (11.5-15.5) % Plt Count (150-450) k/uL Neutrophils # (1.3-7.7) k/uL Lymphocytes # (1.0-4.8) k/uL ABG pH 7.58 H* (7.35-7.45) ABG pCO2 30 L (35-45) mmHg ABG pO2 191 H (83-108) mmHg ABG HCO3 27 H (21-25) mmol/L ABG Total CO2 28 H (19-24) mmol/L ABG O2 Saturation 100.0 H (94-97) % Sodium (137-145) mmol/L Potassium (3.5-5.1) mmol/L Chloride (98-107) mmol/L BUN (9-20) mg/dL Creatinine (0.66-1.25) mg/dL Glucose (74-99) mg/dL POC Glucose (mg/dL) 127 H 133 H (75-99) mg/dL Calcium (8.4-10.2) mg/dL Troponin I (0.000-0.034) ng/mL 10/12/19 10/12/19 10/12/19 Range/Units 05:30 05:30 05:30 WBC 11.7 H (3.8-10.6) k/uL Hgb 11.7 L (13.0-17.5) gm/dL Hct 37.0 L (39.0-53.0) % RDW 18.1 H (11.5-15.5) % Plt Count 78 L (150-450) k/uL Neutrophils # 10.3 H (1.3-7.7) k/uL Lymphocytes # 0.9 L (1.0-4.8) k/uL ABG pH (7.35-7.45) ABG pCO2 (35-45) mmHg ABG pO2 (83-108) mmHg ABG HCO3 (21-25) mmol/L ABG Total CO2 (19-24) mmol/L ABG O2 Saturation (94-97) % Sodium 136 L (137-145) mmol/L Potassium (3.5-5.1) mmol/L Chloride (98-107) mmol/L BUN 52 H (9-20) mg/dL Creatinine 1.53 H (0.66-1.25) mg/dL Glucose 116 H (74-99) mg/dL POC Glucose (mg/dL) (75-99) mg/dL Calcium 6.6 L (8.4-10.2) mg/dL Troponin I 7.960 H* (0.000-0.034) ng/mL 10/12/19 Range/Units 06:00 WBC (3.8-10.6) k/uL Hgb (13.0-17.5) gm/dL Hct (39.0-53.0) % RDW (11.5-15.5) % Plt Count (150-450) k/uL Neutrophils # (1.3-7.7) k/uL Lymphocytes # (1.0-4.8) k/uL ABG pH (7.35-7.45) ABG pCO2 (35-45) mmHg ABG pO2 (83-108) mmHg ABG HCO3 (21-25) mmol/L ABG Total CO2 (19-24) mmol/L ABG O2 Saturation (94-97) % Sodium (137-145) mmol/L Potassium (3.5-5.1) mmol/L Chloride (98-107) mmol/L BUN (9-20) mg/dL Creatinine (0.66-1.25) mg/dL Glucose (74-99) mg/dL POC Glucose (mg/dL) 123 H (75-99) mg/dL Calcium (8.4-10.2) mg/dL Troponin I (0.000-0.034) ng/mL Microbiology - Last 24 Hours (Table) 10/10/19 20:26 Blood Culture - Preliminary Blood No Growth after 24 hours Assessment and Plan Plan: 1 acute unresponsiveness, multifactorial. Note that the patient was initially hypoglycemic at a time of admission. CAT scan of the brain was done that showed no acute abnormalities. Blood sugars under better control for now and hemodynamically the patient is doing better and we are in the process of getting the patient is sedation holiday. He'll be assessed for possibility of weaning and possible extubation today. Mental status is a significant role in our decision whether to extubate or not. We'll continue to follow and assess and evaluate his mentation off the sedation. 2 acute hypoglycemia, treated, blood sugars of normalized 3 junctional bradycardia with a possibility of tachybradycardia syndrome, awaiting a pacemaker insertion. Currently the patient has a transcutaneous pacemaker which is on standby. His current rate is in lower rate atrial fibrillation. Note that the patient's ejection fraction dropped acutely down to 2024% and this could've occurred in the setting of an acute non-STEMI/coronary artery disease. The patient will need a cardiac catheterization with possible subsequent pacer AICD placement. This will be discussed with cardiology. Current rhythm is atrial fibrillation lower rates. 4 hypotension, pressor dependent. Rule out cardiogenic shock, echocardiogram was done and his ejection fraction is around 20-25%, still on low-dose pressors for hemodynamic support 5 coronary artery disease with previous history of or intervention and stenting, acute non-STEMI and a troponin maxed right now is 7.9 6 CHF with ischemic cardiomyopathy and ejection fraction of 20-25% 7 history of rheumatologic mitral regurg post mitral valve repair and modified Albert-Maze procedure 8 peripheral vascular disease with previous left lower extremity amputation 9 chronic stage III kidney disease with a component of an acute kidney injury. Creatinine is improving is down to 1.53 10 COPD 11 hypothyroidism 12 hypertension 13 carotid artery disease 14 severe mixed anion and non-anion gap metabolic acidosis, recovered and current acid base status is leaning towards metabolic alkalosis. 15 acute respiratory failure secondary to above-mentioned comorbidities and complications. The patient had an acute unresponsiveness and acute hypoxic/respiratory failure. Post intubation examination improved. 16 history of atrial fibrillation 17 chronic anxiety 18 C. diff colitis currently on oral vancomycin 19 stage II sacral decubitus ulceration/pressure ulcers 20 bedbugs per history Plan Sedation holiday Check weaning parameters Assess candidacy for weaning Doppler respiratory rate down to 14 Discontinue the bicarb infusion Hold to feeds Wean off pressors and hopeful that the patient will be taken off the pressors once of the prevent Initiate a conversation with cardiology regarding catheterization due to the above-mentioned complications which included acute drop in the patient's LV function with subsequent arrhythmias and assess his need for further coronary intervention/stenting/AICD. Continue oral vancomycin Condition is critical. Evaluation was done and morning 30 minutes. Time with Patient: Greater than 30
[2019-10-12] MEDS: ASPIRIN 81 MG PO SCH (09:42)
[2019-10-12] MEDS: FLUoxetine HCL 20 MG CAP PO SCH (09:42)
[2019-10-12] MEDS: hydrALAZINE HCL 25 MG TAB PO SCH ×2 (09:42→21:09)
[2019-10-12] MEDS: TAMSULOSIN 0.4 MG CAP.ER.24H PO SCH (09:42)
[2019-10-12] MEDS: ATORVASTATIN 40 MG TAB PO SCH (09:42)
[2019-10-12] MEDS: CHLORHEXIDINE GLUCONATE 15 ML CUP MUCOUS MEM SCH (09:42)
[2019-10-12] MEDS ORDERED: HEPARIN SODIUM,PORCINE 5,000 UNIT/ML 1 ML VIAL IV PRN (09:51)
[2019-10-12] MEDS ORDERED: HEPARIN SODIUM,PORCINE 5,000 UNIT/ML 1 ML VIAL IV ONE (09:51)
--- NOTE | 2019-10-12 10:19 | PN ---
PROGRESS NOTE Mr. Maradiaga is a 64-year-old male who presented to [facility] with arrhythmia with atrial fibrillation and episode of bradycardia as well as episode of ventricular tachycardia. He had evidence of non-STEMI, was intubated following his arrival to [facility]. He is extubated this morning. He is feeling tired. He is short of breath. He denies any chest pain. He denies any dizziness or palpitation. He denies any nausea. He had a repeat echocardiogram yesterday that revealed a severely impaired systolic function, ejection fraction 20% to 25% with segmental wall motion abnormality that is new. He had moderate severe aortic regurgitation. He is continued to be in atrial fibrillation. There is no episode of significant bradycardia. He continues to be on aspirin once a day, hydralazine 25 mg twice a day, Protonix, Flomax. PHYSICAL EXAMINATION: Blood pressure 109/50 with a heart rate in the one teens. Lungs with decreased air exchange bilaterally, heart irregularly irregular S1, S2. No S3 with systolic murmur, no rub. ABDOMEN: Soft, nontender. 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 LAB DATA: Lab data revealed BUN and creatinine 52 and 1.53, potassium 3.6, hemoglobin of 11.7. IMPRESSION: 1. Respiratory failure, improved, extubated. 2. Evidence of non ST-segment elevation myocardial infarction. 3. Atrial fibrillation with episode of tachy-belkys syndrome. 4. Severe cardiomyopathy new, ischemic. 5. History of mitral valve repair. 6. Aortic regurgitation. 7. Renal failure. 8. Prior history of coronary artery disease. RECOMMENDATIONS: From the cardiac standpoint, the patient's hemoglobin is stable. I will initiate IV heparin. Continue the rest of his medical regimen. We will follow his heart rate. Continue on the beta skylar. Follow his renal function. Patient would require coronary angiography to further assess the status. We will await stabilization, probably proceed with the procedure on Monday. The prognosis remains guarded. MMODL / IJN: [id number] /
[2019-10-12] MEDS: PANTOPRAZOLE 40 MG/10 ML VIAL IVP SCH ×2 (10:36→21:07)
[2019-10-12] MEDS: HEPARIN SOD,PORK IN 0.45% NACL 25,000 UNIT in 0.45% NACL 1 250ML.BAG IV SCH (10:42)
[2019-10-12 11:17] LABS: Anisocytosis Slight; Basophils % (A) 0 %; Eosinophils # (A) 0.1 k/uL (0-0.7); Eosinophils % (A) 1 %; HCT 38.9 % (39.0-53.0); HGB 11.9 gm/dL (13.0-17.5); Hypochromasia Moderate; Lymphocytes # (A) 0.8 k/uL (1.0-4.8); Lymphocytes % (A) 7 %; MCH 25.6 pg (25.0-35.0); MCHC 30.5 g/dL (31.0-37.0); Mean Platelet Volume 10.3; Monocytes # (A) 0.3 k/uL (0-1.0); Monocytes % (A) 3 %; Neutrophils # (A) 9.2 k/uL (1.3-7.7); Neutrophils % (A) 88 %; Platelet Count 78 k/uL (150-450); Poikilocytosis Slight; RBC 4.64 m/uL (4.30-5.90); RDW 17.7 % (11.5-15.5); WBC 10.5 k/uL (3.8-10.6)
[2019-10-12 11:55] LABS: Glucose,Whole Blood 67 mg/dL (75-99)
[2019-10-12] MEDS ORDERED: DEXTROSE 50% SYRINGE 50 ML IVP ONE (11:56)
[2019-10-12 12:11] LABS: Glucose,Whole Blood 91 mg/dL (75-99)
[2019-10-12] MEDS: NOREPINEPHRINE 4 MG in SODIUM CHLORIDE 0.9% 250 ML IV SCH (12:30)
[2019-10-12] MEDS: DEXTROSE 5%-0.45% NACL 1,000 ML IV SCH (13:45)
--- NOTE | 2019-10-12 15:23 | P.PN ---
Subjective Progress Note Date: 10/12/19 Principal diagnosis: Hypoxic respiratory failure Junctional bradycardia Acute hypoglycemia 64-year-old male patient who got transferred from [facility] because of tachybradycardia syndrome and ongoing cardiac arrhythmias and for that reason the patient got transferred to [facility] for cardiac evaluation and possible pacemaker insertion; he was found to be tachycardic and irregular rhythm possible atrial fibrillation. He was given a liter of IV fluids and he was placed on Cardizem drip and amiodarone drip and subsequently his heart rate dropped in the low 30s with junctional rhythm. The patient was also found to have elevated troponin and was a concern for an acute non-STEMI. . 10/12/2019 Patient is seen and evaluated in room at bedside; patient is sitting up in bed; has been extubated Vital signs remained stable with a temp of 97.9, pulse 61, respiration 14 and blood pressure 109/65 with SpO2 of 97% Labs are reviewed revealing the WBC is 11.7 and platelet count of 78; chemical profile shows sodium of 136, potassium 3.6, BUN of 52 with creatinine of 1.53 Objective - Vital Signs Vital signs: Vital Signs Temp 97.6 F 10/12/19 08:00 Pulse 121 H 10/12/19 12:00 Resp 14 10/12/19 12:00 BP 109/65 10/12/19 07:00 Pulse Ox 96 10/12/19 12:00 Intake & Output 10/11/19 10/12/19 10/12/19 18:59 06:59 18:59 Intake Total 1800 1325 354 Output Total 570 850 450 Balance 1230 475 -96 Weight 66.1 kg Intake: IV 1600 800 Dextrose 5% in Water 1, 1600 800 000 ml @ 100 mls/hr IV . [id number] AJ with Sodium Bicarb (1 Meq/ml) 150 ml Rx#:[id number] Intake, IV Titration 200 400 354 Amount Dextrose 5% in Water 1, 100 400 000 ml @ 100 mls/hr IV . [id number] AJ with Sodium Bicarb (1 Meq/ml) 150 ml Rx#:[id number] Norepinephrine 4 mg In 254 Sodium Chloride 0.9% 250 ml @ 0.05 MCG/KG/MIN 12. 954 mls/hr IV .[id number] AJ Rx#:[id number] Propofol 1,000 mg In 100 100 Empty Bag 1 bag @ Titrate IV .Q0M [facility] Rx#: [id number] Oral 100 Tube Feeding 25 Output: Urine 570 850 450 Other: Voiding Method Indwelling Catheter Indwelling Catheter Indwelling Catheter ABP, PAP, CO, CI - Last Documented Arterial Blood Pressure 123/57 - Exam PHYSICAL EXAMINATION: GENERAL: The patient is alert and oriented x3, not in any acute distress. Well developed, well nourished. HEENT: Pupils are round and equally reacting to light. EOMI. No scleral icterus. No conjunctival pallor. Normocephalic, atraumatic. No pharyngeal erythema. No thyromegaly. CARDIOVASCULAR: S1 and S2 present. No murmurs, rubs, or gallops. PULMONARY: Chest is clear to auscultation, no wheezing or crackles. ABDOMEN: Soft, nontender, nondistended, normoactive bowel sounds. No palpable organomegaly. MUSCULOSKELETAL: No joint swelling or deformity. EXTREMITIES: No cyanosis, clubbing, or pedal edema. NEUROLOGICAL: Gross neurological examination did not reveal any focal deficits. SKIN: No rashes. - Labs CBC & Chem 7: 10/12/19 10:50 10/12/19 05:30 Labs: Abnormal Lab Results - Last 24 Hours (Table) 10/11/19 10/11/19 10/11/19 Range/Units 15:15 15:15 15:15 WBC (3.8-10.6) k/uL Hgb (13.0-17.5) gm/dL Hct (39.0-53.0) % MCHC (31.0-37.0) g/dL RDW (11.5-15.5) % Plt Count (150-450) k/uL Neutrophils # (1.3-7.7) k/uL Lymphocytes # (1.0-4.8) k/uL ABG pH (7.35-7.45) ABG pCO2 (35-45) mmHg ABG pO2 (83-108) mmHg ABG HCO3 (21-25) mmol/L ABG Total CO2 (19-24) mmol/L ABG O2 Saturation (94-97) % Sodium 135 L (137-145) mmol/L Potassium 2.9 L (3.5-5.1) mmol/L Chloride 108 H (98-107) mmol/L BUN 62 H (9-20) mg/dL Creatinine 1.92 H (0.66-1.25) mg/dL Glucose 133 H (74-99) mg/dL POC Glucose (mg/dL) 139 H (75-99) mg/dL Calcium 6.6 L (8.4-10.2) mg/dL Troponin I 5.260 H* (0.000-0.034) ng/mL 10/11/19 10/12/19 10/12/19 Range/Units 18:41 05:00 05:10 WBC (3.8-10.6) k/uL Hgb (13.0-17.5) gm/dL Hct (39.0-53.0) % MCHC (31.0-37.0) g/dL RDW (11.5-15.5) % Plt Count (150-450) k/uL Neutrophils # (1.3-7.7) k/uL Lymphocytes # (1.0-4.8) k/uL ABG pH 7.58 H* (7.35-7.45) ABG pCO2 30 L (35-45) mmHg ABG pO2 191 H (83-108) mmHg ABG HCO3 27 H (21-25) mmol/L ABG Total CO2 28 H (19-24) mmol/L ABG O2 Saturation 100.0 H (94-97) % Sodium (137-145) mmol/L Potassium (3.5-5.1) mmol/L Chloride (98-107) mmol/L BUN (9-20) mg/dL Creatinine (0.66-1.25) mg/dL Glucose (74-99) mg/dL POC Glucose (mg/dL) 127 H 133 H (75-99) mg/dL Calcium (8.4-10.2) mg/dL Troponin I (0.000-0.034) ng/mL 10/12/19 10/12/19 10/12/19 Range/Units 05:30 05:30 05:30 WBC 11.7 H (3.8-10.6) k/uL Hgb 11.7 L (13.0-17.5) gm/dL Hct 37.0 L (39.0-53.0) % MCHC (31.0-37.0) g/dL RDW 18.1 H (11.5-15.5) % Plt Count 78 L (150-450) k/uL Neutrophils # 10.3 H (1.3-7.7) k/uL Lymphocytes # 0.9 L (1.0-4.8) k/uL ABG pH (7.35-7.45) ABG pCO2 (35-45) mmHg ABG pO2 (83-108) mmHg ABG HCO3 (21-25) mmol/L ABG Total CO2 (19-24) mmol/L ABG O2 Saturation (94-97) % Sodium 136 L (137-145) mmol/L Potassium (3.5-5.1) mmol/L Chloride (98-107) mmol/L BUN 52 H (9-20) mg/dL Creatinine 1.53 H (0.66-1.25) mg/dL Glucose 116 H (74-99) mg/dL POC Glucose (mg/dL) (75-99) mg/dL Calcium 6.6 L (8.4-10.2) mg/dL Troponin I 7.960 H* (0.000-0.034) ng/mL 10/12/19 10/12/19 10/12/19 Range/Units 06:00 10:50 11:54 WBC (3.8-10.6) k/uL Hgb 11.9 L (13.0-17.5) gm/dL Hct 38.9 L (39.0-53.0) % MCHC 30.5 L (31.0-37.0) g/dL RDW 17.7 H (11.5-15.5) % Plt Count 78 L (150-450) k/uL Neutrophils # 9.2 H (1.3-7.7) k/uL Lymphocytes # 0.8 L (1.0-4.8) k/uL ABG pH (7.35-7.45) ABG pCO2 (35-45) mmHg ABG pO2 (83-108) mmHg ABG HCO3 (21-25) mmol/L ABG Total CO2 (19-24) mmol/L ABG O2 Saturation (94-97) % Sodium (137-145) mmol/L Potassium (3.5-5.1) mmol/L Chloride (98-107) mmol/L BUN (9-20) mg/dL Creatinine (0.66-1.25) mg/dL Glucose (74-99) mg/dL POC Glucose (mg/dL) 123 H 67 L (75-99) mg/dL Calcium (8.4-10.2) mg/dL Troponin I (0.000-0.034) ng/mL Microbiology - Last 24 Hours (Table) 10/10/19 20:26 Blood Culture - Preliminary Blood No Growth after 24 hours Assessment and Plan Assessment: 1. Acute unresponsiveness/ hypoxic respiratory failure requiring intubation mechanical ventilation and pressors; possibly multifactorial. The possibility of an acute CVA cannot be completely ruled out. Blood sugar currently is above 150. He is withdrawing to painful stimulation. No seizure activity has been noted. Current cardiac rhythm as junctional bradycardia, hemodynamically improved with use of norepinephrine infusion is running at 0.08 g per KG per minute. 2. Acute hypoglycemia, treated, blood sugars of normalized fourth D10; we will continue to monitor Accu-Cheks every 4 hours and treat accordingly 3. Junctional bradycardia with a possibility of tachybradycardia syndrome, awaiting a pacemaker insertion. Currently the patient has a transcutaneous pacemaker which is on standby. His current rate is in lower 80 atrial fibr illation 4. Hypertension; patient is currently hypotensive and pressor dependent. Rule out cardiogenic shock, echocardiogram was done and his ejection fraction is around 20-25% 5. Coronary artery disease with previous history of or intervention and stenting, acute non-STEMIacute non-STEMI with troponins being at 0.8 and 0.62 6. CHF with ischemic cardiomyopathy and ejection fraction of 20-25% 7. Chronic stage III kidney disease; baseline 8. Hypothyroidism; continue with home dose of levothyroxine 25 MCG daily 9. C. diff colitis; patient started on oral vancomycin DVT prophylaxis; subcu heparin CODE STATUS; full code
[2019-10-12 17:23] LABS: Glucose,Whole Blood 115 mg/dL (75-99)
[2019-10-12] MEDS: DOPamine DRIP 800 MG in DEXTROSE/WATER 1 250ML.BAG IV SCH (21:09)
[2019-10-12 23:54] LABS: Glucose,Whole Blood 100 mg/dL (75-99)
[2019-10-13] MEDS: CHERRY FLAVOR 60 ML BOTTLE PO SCH ×4 (00:40→19:43)
[2019-10-13] MEDS: VANCOMYCIN ORAL SOLUTION 250 MG/5 ML BOTTLE PO SCH ×4 (00:40→19:44)
[2019-10-13 05:54] LABS: Anisocytosis Slight; Basophils % (A) 0 %; Eosinophils # (A) 0.1 k/uL (0-0.7); Eosinophils % (A) 1 %; HCT 35.1 % (39.0-53.0); HGB 10.7 gm/dL (13.0-17.5); Hypochromasia Moderate; Lymphocytes # (A) 0.9 k/uL (1.0-4.8); Lymphocytes % (A) 10 %; MCH 25.8 pg (25.0-35.0); MCHC 30.6 g/dL (31.0-37.0); MCV 84.4 fL (80.0-100.0); Mean Platelet Volume 10.7; Monocytes # (A) 0.4 k/uL (0-1.0); Monocytes % (A) 4 %; Neutrophils # (A) 7.9 k/uL (1.3-7.7); Neutrophils % (A) 84 %; RBC 4.15 m/uL (4.30-5.90); RDW 17.9 % (11.5-15.5); WBC 9.4 k/uL (3.8-10.6)
[2019-10-13 06:02] LABS: Platelet Count 65 k/uL (150-450)
[2019-10-13 06:05] LABS: Calcium 6.9 mg/dL (8.4-10.2)
[2019-10-13 06:10] LABS: Glucose,Whole Blood 85 mg/dL (75-99)
[2019-10-13] MEDS: NOREPINEPHRINE 4 MG in SODIUM CHLORIDE 0.9% 250 ML IV SCH (06:17)
[2019-10-13] MEDS: LEVOTHYROXINE 25 MCG TAB PO SCH (06:29)
[2019-10-13] MEDS ORDERED: Potassium Replacement Protocol 1 EACH MISC MISCELLANE PRN (06:35)
[2019-10-13] MEDS: POTASSIUM CHLORIDE 20 MEQ in WATER FOR INJECTION 1 100ML.BAG IVPB SCH ×4 (07:19→21:48)
--- NOTE | 2019-10-13 08:02 | XR ---
EXAMINATION TYPE: XR chest 1V portable DATE OF EXAM: 10/13/2019 Comparison: 10/12/2019 Clinical History: 64-year-old male Post Extubation Findings: Heart borderline enlarged. Median sternotomy wires with prosthetic cardiac valve. Aorta and pulmonary vasculature within normal limits. No consolidation or pleural effusion seen. Impression: Postsurgical changes. Improvement in aeration. No acute process seen.
[2019-10-13] MEDS: TAMSULOSIN 0.4 MG CAP.ER.24H PO SCH (08:32)
[2019-10-13] MEDS: ATORVASTATIN 40 MG TAB PO SCH ×2 (09:46→10:00)
[2019-10-13] MEDS: hydrALAZINE HCL 25 MG TAB PO SCH ×2 (09:46→22:08)
[2019-10-13] MEDS: PANTOPRAZOLE 40 MG/10 ML VIAL IVP SCH ×2 (09:46→22:09)
[2019-10-13] MEDS: FLUoxetine HCL 20 MG CAP PO SCH (09:46)
[2019-10-13] MEDS: ASPIRIN 81 MG PO SCH ×2 (09:46→10:00)
[2019-10-13] MEDS ORDERED: SODIUM CHLORIDE 0.9% 1,000 ML in EMPTY BAG 1 BAG IV ONE (09:54)
[2019-10-13] MEDS ORDERED: ALPRAZolam 0.25 MG TAB PO PRN (09:54)
[2019-10-13] MEDS ORDERED: ALPRAZolam 0.5 MG TAB PO PRN (09:54)
[2019-10-13] MEDS ORDERED: NITROGLYCERIN SL TABS 0.4 MG TAB SUBLINGUAL PRN (09:54)
[2019-10-13] MEDS: HEPARIN SOD,PORK IN 0.45% NACL 25,000 UNIT in 0.45% NACL 1 250ML.BAG IV SCH (10:25)
--- NOTE | 2019-10-13 10:43 | P.PN ---
Subjective Progress Note Date: 10/13/19 This is a 64-year-old male patient who got transferred from [facility] because of tachybradycardia syndrome and ongoing cardiac arrhythmias and for that reason the patient got transferred to [facility] for cardiac evaluation and possible pacemaker insertion. The patient presented there in a poor health and living condition. He was having difficulties in taking care of himself because of an amputated left lower extremity above the knee. According to the hospital staff, the patient has been very weak and he was found to be at home covered with feces and possible bedbugs. He was brought into [facility] where he was found to be tachycardic and irregular rhythm possible atrial fibrillation. He was given a liter of IV fluids and he was placed on Cardizem drip and amiodarone drip and subsequently his heart rate dropped in the low 30s with junctional rhythm. The patient was also found to have elevated troponin and was a concern for an acute non-STEMI. 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 He is also known to have mild to moderate impairment of the LV with an ejection fraction depressed in the order of 40%, history of peripheral vascular disease, above- knee amputation left lower extremity, COPD, moderate to severe right internal carotid artery stenosis, chronic atrial fibrillation, stage III kidney disease, smoker, depression, hypertension, coronary artery disease with previous coronary stent placement, hypothyroidism, and acid reflux. The patient also has history of chronic anemia of an iron deficiency type. After he came in to our intensive care unit, the patient had an acute episode where he became unresponsive. A code stroke was called. Immediately a blood sugar was checked and the blood sugar was 35. The patient was given D50. She remained unresponsive. He be became more bradycardic with heart rate dropped down to the low 30s in a junctional rhythm. His blood pressure was undetectable although he had a very thready pulse. The pulses were weak mainly obtained in the right femoral area. She became agonal breathing. He became completely unresponsive. A code was called. I attended disclose. The patient was immediately intubated. I was able to successfully intubate the patient by #8 orotracheal tube. Subsequently I was able to insert a triple lumen catheter in his right femoral vein and it off and catheter in his right femoral artery. He was started on levo fed during this process and he was also given 1 amp of epinephrine. Currently norepinephrine is running at 0.08 g per KG per minute. His most recent blood pressure is 152/58. His current cardiac rhythm is junctional at the rate of 45 and external transcutaneous pacers was applied. Beaulieu catheter is in place. He is hypothermic and after optimizing his condition, the patient started having some response already started following some simple commands where he would open up his eyes upon demand, move around and breathable mechanical ventilator. Currently is on assist control mode at the rate of 20 to a tidal volume of 50 and FiO2 of 100% and a PEEP of 5. Chest x-ray shows adequate expansion of both lungs. No evidence of any pneumothorax. ET tube is in a good location. Presented was down by around 2 cm. NG tube was in the right mainstem and had to be pulled artery position. The follow-up blood sugar was 150. Cardiology will be made aware of these changes. The blood work from here shows a component of metabolic acidosis with a bicarb level of 11. Post intubation blood gases showed a pH of 7.03 with a pCO2 of 17 and a pO2 of more than 400 and FiO2 of 100%. INR is at 1.4. Creatinine is at 2.1 with a BUN of 64. On today's evaluation of 3 60,020 and seeing the patient for a follow-up. The patient is well sedated, comfortable upper performed which is currently running at 50 g per KG per minute. He remains intubated on a mechanical ventilator. He is on assist control mode of ventilation with tidal volume of 450 and the rate of 22 with an FiO2 of 40% and a PEEP of 5. The morning blood gases showed a pH of 7.46 with a pCO2 of 24 and pO2 of 272. In terms of his cardiac rhythm, the patient remains in the lower rate atrial fibrillation and the low 50s. At times his heart rate goes down to the 40s. He is on norepinephrine infusion which is running at 0.06 g per KG per minute. He has diminished urine output. Creatinine is at 2.1 which is stable and compared to yesterday no major change. Serum bicarbonate 16. IV fluids are running at the rate of 100 and hour of D5 with 3 A of sodium bicarb. His metabolic acidosis improving. Serum bicarb is at 16. No significant bradycardic episodes noted or junctional rhythm overnight. the chest x-ray from today shows adequate expansion of both lungs. ET tube is in a good location. NG tube is in a good location. There is no evidence of any airspace disease or pneumonia on today's chest x-ray. Echocardiogram was also completed yesterday and it showed a left ventricle ejection fraction of 20-25%. The patient has borderline concentric LVH. He has ischemic cardiomyopathy. His pulmonary artery pressures estimated to be around 40. He does have sacral decubitus ulceration, stage II and he has several of them across his buttock. We are putting zinc oxide cream. No signs of infection at this point in time. No fever. Furthermore, the patient was found to have a positive C. diff. He was started on oral vancomycin 250 mg by mouth every 6 hours. His last bout of diarrhea was yesterday. No further bouts of hypoglycemia. Morning blood sugar is 146. He is going to be started on enteral feeding for nutritional support. His evaluation of 10/12/2019 and see the patient for a follow-up. The patient is still intubated on a mechanical ventilator. The vent setting this morning includes an assist-control 14 with a tidal volume of 400 and FiO2 of 40% with a PEEP of 5. Blood gases showed a component of metabolic and respiratory alkalosis. PH was at 7.58 with a pCO2 of 30 and pO2 191. This was done with an FiO2 of 40%. The chest x-ray from today showed adequate positioning of the ET tube. The patient has no evidence of any pulmonary edema or consolidation. He may have some increased pulmonary vessel congestion right more than left. ET tube is in a good location. He has a mitral valve ring. Based on this respiratory alkalosis, discontinue the bicarb infusion I dropped a respiratory rate down to 14 this morning. Earlier aspirate was 22. The patient has no significant orotracheal secretions. He is not febrile. His blood sugars of a well-maintained and he had not had any further episodes of hypoglycemia. I'm in the process of getting this patient a sedation holiday to assess his mental status and assess his candidacy for further weaning. Hemodynamically he is in atrial fibrillation lower right with the lowest heart rate being in the 40s. He is still on norepinephrine infusion running at 0.06 g per KG per minute. Urine output is adequate and the creatinine is also improving and the creatinine is down to 1.53. The rest of the blood work shows that the troponin maxed at 7.9 consistent with acute non-STEMI. Echocardiogram showed improvement in LV function and this is a recent drop in his LV with ejection fraction is down to 20-25%. On 10/13/2019 the patient is widely awake, comfortable without any significant respiratory distress. The patient was weaned off the mechanical ventilator and he was extubated yesterday without any major difficulties. He is currently on room air oxygen. No significant signs of any shortness of breath. He is hemodynamically stable. He is on no pressors. He remains on IV heparin. The plan is to proceed with a cardiac catheterization for further investigation of his underlying cardiac arrhythmia and a drop in his left ventricular ejection fraction which is down to 25%. Currently is in atrial fibrillation and the rate has improved. He is still having occasional bradycardias with heart rate dropped as low as 50. No syncope. No loss of consciousness. No other fever or chills or any other issues. The patient is tolerating his diet. The swallowing evaluation was done at the bedside today in the I will he was able to pass without any major difficulties. Objective - Vital Signs Vital signs: Vital Signs Temp 98 F 10/13/19 08:00 Pulse 94 10/13/19 10:00 Resp 13 10/13/19 10:00 BP 99/64 10/13/19 07:00 Pulse Ox 100 10/13/19 10:00 Intake & Output 10/12/19 10/13/19 10/13/19 17:59 06:59 18:59 Intake Total 475.297 Output Total 275 Balance 200.297 Intake: IV 200 Dextrose 5% in Water 1, 000 ml @ 100 mls/hr IV . [id number] AJ with Sodium Bicarb (1 Meq/ml) 150 ml Rx#:[id number] Dextrose 5%-0.45% NaCl 1, 200 000 ml @ 50 mls/hr IV . Q20H AJ Rx#:[id number] Intake, IV Titration 275.297 Amount Dextrose 5%-0.45% NaCl 1, 000 ml @ 50 mls/hr IV . Q20H AJ Rx#:[id number] Heparin Sod,Pork in 0.45% 175.297 NaCl 25,000 unit In 0.45 % NaCl 1 250ml.bag @ 12 UNITS/KG/HR 7.932 mls/hr IV .Q24H AJ Rx#: [id number] Norepinephrine 4 mg In Sodium Chloride 0.9% 250 ml @ 0.05 MCG/KG/MIN 12. 954 mls/hr IV .[id number] AJ Rx#:[id number] Potassium Chloride 20 meq 100 In Water For Injection 1 100ml.bag @ 50 mls/hr IVPB Q2H AJ Rx#: [id number] Propofol 1,000 mg In Empty Bag 1 bag @ Titrate IV .Q0M AJ Rx#: [id number] Output: Urine 275 Other: Voiding Method # Bowel Movements ABP, PAP, CO, CI - Last Documented Arterial Blood Pressure 138/54 - Exam The patient is currently awake and alert and extubated currently on room air Head exam was generally normal. There was no scleral icterus or corneal arcus. Mucous membranes were moist. Neck was supple and without jugular venous distension, thyromegaly, or carotid bruits. Carotids were easily palpable bilaterally. There was no adenopathy. The patient has very poor dentition. Multiple decayed teeth. Multiple missing teeth. No significant JVDs. Lungs were clear to auscultation and percussion, and with normal diaphragmatic excursion. No wheezes or rales were noted. Heart sounds are bradycardic, positive S1-S2, overall heart sounds are distant. There is a sternotomy scar over the anterior chest. There are transcutaneous pacemaker leads over the anterior chest. No rubs. No cervical murmurs appreciated. Abdominal exam revealed normal bowel sounds. The abdomen was soft, non-tender, and without masses, organomegaly, or appreciable enlargement of the abdominal aorta. Extremities the patient has an above-knee amputation left lower extremity. Right lower extremity reveals no significant edema. No cyanosis. No clubbing. Pulses are diminished at the present in all 4 extremities. The patient is a triple-lumen catheter/Art line Catheter in his right groin in the right femoral vein and artery. Neurologically, awake and alert and there is no focal neurological deficit - Labs CBC & Chem 7: 10/13/19 05:20 10/13/19 05:20 Labs: Abnormal Lab Results - Last 24 Hours (Table) 10/12/19 10/12/19 10/12/19 Range/Units 10:50 11:54 17:20 RBC (4.30-5.90) m/uL Hgb 11.9 L (13.0-17.5) gm/dL Hct 38.9 L (39.0-53.0) % MCHC 30.5 L (31.0-37.0) g/dL RDW 17.7 H (11.5-15.5) % Plt Count 78 L (150-450) k/uL Neutrophils # 9.2 H (1.3-7.7) k/uL Lymphocytes # 0.8 L (1.0-4.8) k/uL APTT 49.1 H (22.0-30.0) sec Potassium (3.5-5.1) mmol/L BUN (9-20) mg/dL Creatinine (0.66-1.25) mg/dL Glucose (74-99) mg/dL POC Glucose (mg/dL) 67 L (75-99) mg/dL Calcium (8.4-10.2) mg/dL 10/12/19 10/12/19 10/13/19 Range/Units 17:21 23:53 05:20 RBC 4.15 L (4.30-5.90) m/uL Hgb 10.7 L (13.0-17.5) gm/dL Hct 35.1 L (39.0-53.0) % MCHC 30.6 L (31.0-37.0) g/dL RDW 17.9 H (11.5-15.5) % Plt Count 65 L (150-450) k/uL Neutrophils # 7.9 H (1.3-7.7) k/uL Lymphocytes # 0.9 L (1.0-4.8) k/uL APTT (22.0-30.0) sec Potassium (3.5-5.1) mmol/L BUN (9-20) mg/dL Creatinine (0.66-1.25) mg/dL Glucose (74-99) mg/dL POC Glucose (mg/dL) 115 H 100 H (75-99) mg/dL Calcium (8.4-10.2) mg/dL 10/13/19 10/13/19 Range/Units 05:20 07:55 RBC (4.30-5.90) m/uL Hgb (13.0-17.5) gm/dL Hct (39.0-53.0) % MCHC (31.0-37.0) g/dL RDW (11.5-15.5) % Plt Count (150-450) k/uL Neutrophils # (1.3-7.7) k/uL Lymphocytes # (1.0-4.8) k/uL APTT 39.9 H (22.0-30.0) sec Potassium 3.0 L (3.5-5.1) mmol/L BUN 36 H (9-20) mg/dL Creatinine 1.31 H (0.66-1.25) mg/dL Glucose 108 H (74-99) mg/dL POC Glucose (mg/dL) (75-99) mg/dL Calcium 6.9 L (8.4-10.2) mg/dL Microbiology - Last 24 Hours (Table) 10/10/19 20:26 Blood Culture - Preliminary Blood No Growth after 48 hours Assessment and Plan Plan: 1 acute unresponsiveness, multifactorial. Recovered and the patient is back to his normal mentation. This was probably related to hypoglycemia and cardiac arrhythmias. 2 acute hypoglycemia, treated, blood sugars of normalized, currently on D5 half- normal at the rate of 50 mL an hour. Blood sugars are being monitored and he is on sliding scale coverage for now 3 junctional bradycardia with a possibility of tachybradycardia syndrome, awaiting a pacemaker insertion. Currently the patient has a transcutaneous pacemaker which is on standby. His current rate is in lower rate atrial fibrillation. Note that the patient's ejection fraction dropped acutely down to 2024% and this could've occurred in the setting of an acute non-STEMI/coronary artery disease. The patient will need a cardiac catheterization with possible subsequent pacer AICD placement. This will be discussed with cardiology. Current rhythm is atrial fibrillation lower rates. The tentative plan is to undergo cardiac catheterization tomorrow 4 hypotension, pressor dependent. 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 Creatinine is improving is down and it continues to improve is down to 1.3 10 COPD 11 hypothyroidism 12 hypertension 13 carotid artery disease 14 severe mixed anion and non-anion gap metabolic acidosis, recovered and current acid base status is leaning towards metabolic alkalosis. 15 acute respiratory failure secondary to above-mentioned comorbidities and complications. The patient had an acute unresponsiveness and acute hypoxic/resp iratory failure. Post intubation examination improved. 16 history of atrial fibrillation 17 chronic anxiety 18 C. diff colitis currently on oral vancomycin, no diarrhea 19 stage II sacral decubitus ulceration/pressure ulcers 20 bedbugs per history 21 thrombocytopenia, cardiology is aware and that is down to 63. The patient on IV heparin. Plan The patient was extubated and the patient is currently on room air The patient was taken off pressors The patient is tolerating diet Renal function is improving cardiology regarding catheterization due to the above-mentioned complications which included acute drop in the patient's LV function with subsequent arrhythmias and assess his need for further coronary intervention/stenting/AICD. Continue oral vancomycin Condition is still critical.
[2019-10-13 10:52] LABS: ABG PH 7.58 (7.35-7.45)
--- NOTE | 2019-10-13 11:09 | PN ---
PROGRESS NOTE Mr. Maradiaga is a 64-year-old male status post mitral valve repair, history of coronary artery disease, who presented to [facility] with atrial fibrillation with variable rate as well as episode of ventricular arrhythmia. Upon transfer to [facility], he had an unresponsiveness episode with hypoglycemia and bradycardia. He was intubated. He is extubated at this time, feeling stronger. His breathing is stable. He is denying any chest pain. He denies any dizziness. He denies any nausea. On the monitor, he is in atrial fibrillation with variable ventricular response. His blood pressure is stable. He continues on aspirin once a day, IV heparin, hydralazine 25 mg twice a day. PHYSICAL EXAMINATION: Blood pressure 117/50 with a heart rate in the 80s to low 100s. Lungs no wheezes. HEART: Irregularly irregular S1, S2. No S3 with systolic murmur. No diastolic murmur. No rub. ABDOMEN: Soft, nontender. 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 LAB DATA: Lab data revealed BUN and creatinine 36 and 1.31, improved compared to yesterday. Potassium 3.0. Hemoglobin of 10.7. IMPRESSION: 1. Non ST-segment elevation myocardial infarction with new worsening cardiomyopathy. 2. Respiratory failure resolved. 3. Atrial fibrillation with episode of tachy-belkys syndrome. 4. Status post mitral valve repair. 5. Aortic regurgitation. 6. Renal failure improving. 7. Prior stenting of the LAD. RECOMMENDATION: I will attempt to reschedule the patient to undergo cardiac catheterization tomorrow by Dr. Godoy unless there is worsening renal function. I have discussed with him the rationale behind the procedure as well as risks and complications and he is in full understanding and agreement. MMODL / IJN: [id number] /
[2019-10-13] MEDS: DEXTROSE 5%-0.45% NACL 1,000 ML IV SCH (15:36)
--- NOTE | 2019-10-13 17:17 | P.PN ---
Subjective Progress Note Date: 10/13/19 Principal diagnosis: Hypoxic respiratory failure Junctional bradycardia Acute hypoglycemia 64-year-old male patient who got transferred from [facility] because of tachybradycardia syndrome and ongoing cardiac arrhythmias and for that reason the patient got transferred to [facility] for cardiac evaluation and possible pacemaker insertion; he was found to be tachycardic and irregular rhythm possible atrial fibrillation. He was given a liter of IV fluids and he was placed on Cardizem drip and amiodarone drip and subsequently his heart rate dropped in the low 30s with junctional rhythm. The patient was also found to have elevated troponin and was a concern for an acute non-STEMI. . 10/12/2019 Patient is seen and evaluated in room at bedside; patient is sitting up in bed; has been extubated Vital signs remained stable with a temp of 97.9, pulse 61, respiration 14 and blood pressure 109/65 with SpO2 of 97% Labs are reviewed revealing the WBC is 11.7 and platelet count of 78; chemical profile shows sodium of 136, potassium 3.6, BUN of 52 with creatinine of 1.53 10/13/2019 the patient is widely awake, comfortable without any significant respiratory distress. The patient was weaned off yesterday without any major difficulties. He is currently on room air oxygen. He remains on IV heparin. The plan is to proceed with a cardiac catheterization for further investigation of his underlying cardiac arrhythmia and a drop in his left ventricular ejection fraction which is down to 25%. Currently is in atrial fibrillation and the rate has improved. He is still having occasional bradycar saul with heart rate dropped as low as 50. No syncope. No loss of consciousness. No other fever or chills or any other issues. The patient is tolerating his diet. The swallowing evaluation was done at the bedside today in the I will he was able to pass without any major difficulties. The patient is tolerating diet Renal function is improving cardiology regarding catheterization due to the above-mentioned complications which included acute drop in the patient's LV function with subsequent a rrhythmias and assess his need for further coronary intervention/stenting/AICD. Continue oral vancomycin Objective - Vital Signs Vital signs: Vital Signs Temp 98 F 10/13/19 08:00 Pulse 94 10/13/19 10:00 Resp 13 10/13/19 10:00 BP 99/64 10/13/19 07:00 Pulse Ox 100 10/13/19 10:00 Intake & Output 10/12/19 10/13/19 10/13/19 17:59 06:59 18:59 Intake Total 475.297 Output Total 275 Balance 200.297 Weight 66.1 kg Intake: IV 200 Dextrose 5% in Water 1, 000 ml @ 100 mls/hr IV . [id number] AJ with Sodium Bicarb (1 Meq/ml) 150 ml Rx#:[id number] Dextrose 5%-0.45% NaCl 1, 200 000 ml @ 50 mls/hr IV . Q20H AJ Rx#:[id number] Intake, IV Titration 275.297 Amount Dextrose 5%-0.45% NaCl 1, 000 ml @ 50 mls/hr IV . Q20H AJ Rx#:[id number] Heparin Sod,Pork in 0.45% 175.297 NaCl 25,000 unit In 0.45 % NaCl 1 250ml.bag @ 12 UNITS/KG/HR 7.932 mls/hr IV .Q24H AJ Rx#: [id number] Norepinephrine 4 mg In Sodium Chloride 0.9% 250 ml @ 0.05 MCG/KG/MIN 12. 954 mls/hr IV .[id number] AJ Rx#:[id number] Potassium Chloride 20 meq 100 In Water For Injection 1 100ml.bag @ 50 mls/hr IVPB Q2H AJ Rx#: [id number] Propofol 1,000 mg In Empty Bag 1 bag @ Titrate IV .Q0M AJ Rx#: [id number] Output: Urine 275 Other: Voiding Method # Bowel Movements ABP, PAP, CO, CI - Last Documented Arterial Blood Pressure 138/54 - Exam PHYSICAL EXAMINATION: GENERAL: The patient is alert and oriented x3, not in any acute distress. Well developed, well nourished. HEENT: Pupils are round and equally reacting to light. EOMI. No scleral icterus. No conjunctival pallor. Normocephalic, atraumatic. No pharyngeal erythema. No thyromegaly. CARDIOVASCULAR: S1 and S2 present. No murmurs, rubs, or gallops. PULMONARY: Chest is clear to auscultation, no wheezing or crackles. ABDOMEN: Soft, nontender, nondistended, normoactive bowel sounds. No palpable organomegaly. MUSCULOSKELETAL: No joint swelling or deformity. EXTREMITIES: No cyanosis, clubbing, or pedal edema. NEUROLOGICAL: Gross neurological examination did not reveal any focal deficits. SKIN: No rashes. - Labs CBC & Chem 7: 10/13/19 05:20 10/13/19 05:20 Labs: Abnormal Lab Results - Last 24 Hours (Table) 10/12/19 10/12/19 10/12/19 Range/Units 05:10 17:20 17:21 RBC (4.30-5.90) m/uL Hgb (13.0-17.5) gm/dL Hct (39.0-53.0) % MCHC (31.0-37.0) g/dL RDW (11.5-15.5) % Plt Count (150-450) k/uL Neutrophils # (1.3-7.7) k/uL Lymphocytes # (1.0-4.8) k/uL APTT 49.1 H (22.0-30.0) sec ABG pH 7.58 H* (7.35-7.45) Potassium (3.5-5.1) mmol/L BUN (9-20) mg/dL Creatinine (0.66-1.25) mg/dL Glucose (74-99) mg/dL POC Glucose (mg/dL) 115 H (75-99) mg/dL Calcium (8.4-10.2) mg/dL 10/12/19 10/13/19 10/13/19 Range/Units 23:53 05:20 05:20 RBC 4.15 L (4.30-5.90) m/uL Hgb 10.7 L (13.0-17.5) gm/dL Hct 35.1 L (39.0-53.0) % MCHC 30.6 L (31.0-37.0) g/dL RDW 17.9 H (11.5-15.5) % Plt Count 65 L (150-450) k/uL Neutrophils # 7.9 H (1.3-7.7) k/uL Lymphocytes # 0.9 L (1.0-4.8) k/uL APTT (22.0-30.0) sec ABG pH (7.35-7.45) Potassium 3.0 L (3.5-5.1) mmol/L BUN 36 H (9-20) mg/dL Creatinine 1.31 H (0.66-1.25) mg/dL Glucose 108 H (74-99) mg/dL POC Glucose (mg/dL) 100 H (75-99) mg/dL Calcium 6.9 L (8.4-10.2) mg/dL 10/13/19 Range/Units 07:55 RBC (4.30-5.90) m/uL Hgb (13.0-17.5) gm/dL Hct (39.0-53.0) % MCHC (31.0-37.0) g/dL RDW (11.5-15.5) % Plt Count (150-450) k/uL Neutrophils # (1.3-7.7) k/uL Lymphocytes # (1.0-4.8) k/uL APTT 39.9 H (22.0-30.0) sec ABG pH (7.35-7.45) Potassium (3.5-5.1) mmol/L BUN (9-20) mg/dL Creatinine (0.66-1.25) mg/dL Glucose (74-99) mg/dL POC Glucose (mg/dL) (75-99) mg/dL Calcium (8.4-10.2) mg/dL Microbiology - Last 24 Hours (Table) 10/10/19 20:26 Blood Culture - Preliminary Blood No Growth after 48 hours Assessment and Plan Assessment: 1. Acute unresponsiveness/ hypoxic respiratory failure requiring intubation mechanical ventilation and pressors; possibly multifactorial. The possibility of an acute CVA cannot be completely ruled out. Blood sugar currently is above 150. He is withdrawing to painful stimulation. No seizure activity has been noted. Current cardiac rhythm as junctional bradycardia, hemodynamically improved with use of norepinephrine infusion is running at 0.08 g per KG per minute. 2. Acute hypoglycemia, treated, blood sugars of normalized fourth D10; we will continue to monitor Accu-Cheks every 4 hours and treat accordingly 3. Junctional bradycardia with a possibility of tachybradycardia syndrome, awaiting a pacemaker insertion. Currently the patient has a transcutaneous pacemaker which is on standby. His current rate is in lower 80 atrial fibrillation 4. Hypertension; patient is currently hypotensive and pressor dependent. Rule out cardiogenic shock, echocardiogram was done and his ejection fraction is around 20-25% 5. Coronary artery disease with previous history of or intervention and stenting, acute non-STEMIacute non-STEMI with troponins being at 0.8 and 0.62 6. CHF with ischemic cardiomyopathy and ejection fraction of 20-25% 7. Chronic stage III kidney disease; baseline 8. Hypothyroidism; continue with home dose of levothyroxine 25 MCG daily 9. C. diff colitis; patient started on oral vancomycin DVT prophylaxis; subcu heparin CODE STATUS; full code
[2019-10-13 18:25] LABS: Calcium 6.9 mg/dL (8.4-10.2); Potassium 3.4 mmol/L (3.5-5.1)
[2019-10-13 22:08] LABS: Glucose,Whole Blood 125 mg/dL (75-99)
[2019-10-13] MEDS: DOPamine DRIP 800 MG in DEXTROSE/WATER 1 250ML.BAG IV SCH (22:10)
[2019-10-14] MEDS: VANCOMYCIN ORAL SOLUTION 250 MG/5 ML BOTTLE PO SCH ×4 (00:30→18:40)
[2019-10-14] MEDS: CHERRY FLAVOR 60 ML BOTTLE PO SCH ×4 (00:30→18:34)
[2019-10-14] MEDS: NOREPINEPHRINE 4 MG in SODIUM CHLORIDE 0.9% 250 ML IV SCH (02:39)
[2019-10-14] MEDS: LEVOTHYROXINE 25 MCG TAB PO SCH (05:40)
[2019-10-14] MEDS ORDERED: ASPIRIN 325 MG TAB PO ONE (06:00)
[2019-10-14] MEDS ORDERED: ATORVASTATIN 80 MG TAB PO ONE (06:00)
[2019-10-14 06:17] LABS: Anisocytosis Slight; Basophils % (A) 0 %; Eosinophils # (A) 0.1 k/uL (0-0.7); Eosinophils % (A) 1 %; HCT 34.4 % (39.0-53.0); HGB 10.4 gm/dL (13.0-17.5); Hypochromasia Moderate; Lymphocytes % (A) 10 %; MCH 25.9 pg (25.0-35.0); MCHC 30.4 g/dL (31.0-37.0); MCV 85.5 fL (80.0-100.0); Mean Platelet Volume 11.2; Monocytes # (A) 0.5 k/uL (0-1.0); Monocytes % (A) 5 %; Neutrophils % (A) 81 %; RBC 4.02 m/uL (4.30-5.90); RDW 17.7 % (11.5-15.5); WBC 9.9 k/uL (3.8-10.6)
[2019-10-14 06:19] LABS: Platelet Count 64 k/uL (150-450)
[2019-10-14 06:25] LABS: African American GFR (CKD) >90 (>60 ml/min/1.73 sqM); Anion Gap 4 mmol/L; Blood Urea Nitrogen 26 mg/dL (9-20); Calcium 6.9 mg/dL (8.4-10.2); Carbon Dioxide 25 mmol/L (22-30); Chloride 105 mmol/L (98-107); Glucose 100 mg/dL (74-99); Non-African American GFR(CKD) 80 (>60 ml/min/1.73 sqM); Sodium 134 mmol/L (137-145)
[2019-10-14] MEDS: DEXTROSE 5%-0.45% NACL 1,000 ML IV SCH (06:28)
[2019-10-14 06:33] LABS: Potassium 3.9 mmol/L (3.5-5.1)
--- NOTE | 2019-10-14 07:05 | P.PN ---
Subjective This is a pleasant 64 years old -Turk[place] male, with past medical history of coronary artery disease, atrial fibrillation, COPD, diabetes mellitus, hypertension, hyperlipidemia, hypothyroidism, chronic kidney disease stage III, peripheral artery disease, anxiety/depression, cardiac valve replacement, GERD. He was transferred from [facility] to [facility] in ICU for tachyarrhythmia found to have low ejection fraction of 25%, and his been followed closely by cardiology team and critical care team, he was intubated temporally and currently he is on room air with oxygen saturation of 97-98%, still still tachycardic of 108-124, blood pressure 109/74. Been afebrile. Creatinine elevated initially came back to normal at 1.0 today, sodium 134, not elevated white cell count at 9.9K, hemoglobin 10.4, platelets low at 64K. Review of systems CONSTITUTIONAL: No fever, no malaise, no fatigue. HEENT: No recent visual problems or hearing problems. Denied any sore throat. CARDIOVASCULAR: No orthopnea, PND, no palpitations, no syncope. PULMONARY: No shortness of breath, no cough, no hemoptysis. GASTROINTESTINAL: No diarrhea, no nausea, no vomiting, no abdominal pain. Normoactive bowel sounds. NEUROLOGICAL: No headaches, no weakness, no numbness. HEMATOLOGICAL: Denies any bleeding or petechiae. GENITOURINARY: Denies any burning micturition, frequency, or urgency. MUSCULOSKELETAL/RHEUMATOLOGICAL: Denies any joint pain, swelling, or any muscle pain. ENDOCRINE: Denies any polyuria or polydipsia. Active Medications Generic Name Dose Route Start Last Admin Trade Name Freq PRN Reason Stop Dose Admin Hydrocodone Bitart/Acetaminophen 1 each 10/10/19 13:28 Hudson 10 PO Q6H PRN Pain Alprazolam 0.25 mg 10/13/19 09:54 Xanax PO Q6HR PRN Mild Anxiety Alprazolam 0.5 mg 10/13/19 09:54 Xanax PO Q6HR PRN Moderate Anxiety Aspirin 81 mg 10/11/19 09:00 10/13/19 10:00 Aspirin PO Not Given DAILY JA Atorvastatin Calcium 40 mg 10/11/19 09:00 10/13/19 10:00 Lipitor PO Not Given DAILY [facility] Melendez Syrup 5 ml 10/11/19 06:00 10/14/19 05:40 Melendez Syrup PO 5 ml Q6H AJ Administration Fluoxetine HCl 20 mg 10/11/19 09:00 10/13/19 09:46 Prozac PO Not Given DAILY AJ Heparin Sodium (Porcine) 0 unit 10/12/19 09:51 10/13/19 09:47 Heparin IV 1,652.5 unit PER PROTOCOL PRN Administration Low PTT Protocol Hydralazine HCl 25 mg 10/10/19 21:00 10/13/19 22:08 Apresoline PO Not Given BID [facility] Norepinephrine Bitartrate 4 mg 254 mls @ 12.954 mls/hr 10/10/19 19:00 10/14/19 02:39 / Sodium Chloride IV Not Given .[id number] AJ Protocol 0.05 MCG/KG/MIN Dopamine HCl/Dextrose 800 mg/ 250 mls @ 1.275 mls/hr 10/10/19 22:00 10/13/19 22:10 IV Solution IV Not Given .Q24H AJ Protocol 1 MCG/KG/MIN Heparin Sodium/Sodium Chloride 250 mls @ 7.932 mls/hr 10/12/19 10:00 10/13/19 10:25 25,000 unit/ Sodium Chloride IV 14 units/kg/hr .Q24H AJ 9.254 mls/hr Administration Protocol 12 UNITS/KG/HR Dextrose/Sodium Chloride 1,000 mls @ 50 mls/hr 10/12/19 13:45 10/14/19 06:28 Dextrose 5%-1/2ns Iv Soln IV 50 mls/hr .Q20H AJ Administration Levothyroxine Sodium 25 mcg 10/11/19 06:30 10/14/19 05:40 Synthroid PO 25 mcg DAILY@0630 AJ Administration Miscellaneous Information 1 each 10/13/19 06:35 Potassium Per Protocol MISCELLANE DAILY PRN Per Protocol Protocol Naloxone HCl 0.2 mg 10/10/19 18:59 Narcan IV Q2M PRN Opioid Reversal Nitroglycerin 0.4 mg 10/13/19 09:54 Nitrostat SUBLINGUAL Q5M PRN Chest Pain Ondansetron HCl 4 mg 10/10/19 13:28 Zofran IVP Q6HR PRN Nausea And Vomiting Pantoprazole Sodium 40 mg 10/10/19 21:00 10/13/19 22:09 Protonix IVP 40 mg BID AJ Administration Tamsulosin HCl 0.4 mg 10/11/19 08:30 10/13/19 08:32 Flomax PO Not Given [id number]-[id number] AJ Vancomycin HCl 250 mg 10/11/19 06:00 10/14/19 05:40 Vancomycin Oral Solution PO 250 mg Q6HR AJ Administration Objective - Vital Signs Vital signs: Vital Signs Temp 98.0 F 10/14/19 00:00 Pulse 110 H 10/14/19 06:00 Resp 16 10/14/19 06:00 BP 109/74 10/14/19 06:00 Pulse Ox 98 10/14/19 04:00 Intake & Output 10/13/19 10/13/19 10/14/19 06:59 18:59 06:59 Intake Total 877.148 600 Output Total 685 730 Balance 192.148 -130 Weight 66.1 kg Intake: IV 600 600 Dextrose 5%-0.45% NaCl 1, 600 600 000 ml @ 50 mls/hr IV . Q20H AJ Rx#:[id number] Intake, IV Titration 277.148 Amount Dextrose 5%-0.45% NaCl 1, 000 ml @ 50 mls/hr IV . Q20H AJ Rx#:[id number] Heparin Sod,Pork in 0.45% 177.148 NaCl 25,000 unit In 0.45 % NaCl 1 250ml.bag @ 12 UNITS/KG/HR 7.932 mls/hr IV .Q24H AJ Rx#: [id number] Potassium Chloride 20 meq 100 In Water For Injection 1 100ml.bag @ 50 mls/hr IVPB Q2H AJ Rx#: [id number] Output: Urine 685 730 Other: Voiding Method Indwelling Catheter Indwelling Catheter ABP, PAP, CO, CI - Last Documented Arterial Blood Pressure 134/57 - Exam GENERAL: The patient is alert and oriented x3, not in any acute distress. Well developed, well nourished. HEENT: Pupils are round and equally reacting to light. EOMI. No scleral icterus. No conjunctival pallor. Normocephalic, atraumatic. No pharyngeal erythema. No thyromegaly. CARDIOVASCULAR: S1 and S2 present. No murmurs, rubs, or gallops. PULMONARY: Chest is clear to auscultation, no wheezing or crackles. -ABDOMEN: Soft, nontender, nondistended, normoactive bowel sounds. No palpable organomegaly. Beaulieu catheter is in place MUSCULOSKELETAL: No joint swelling or deformity. EXTREMITIES: No cyanosis, clubbing, or pedal edema. NEUROLOGICAL: Gross neurological examination did not reveal any focal deficits. SKIN: No rashes. no petechiae. - Labs CBC & Chem 7: 10/14/19 06:00 10/14/19 06:00 Labs: Abnormal Lab Results - Last 24 Hours (Table) 10/12/19 10/13/19 10/13/19 Range/Units 05:10 07:55 17:51 RBC (4.30-5.90) m/uL Hgb (13.0-17.5) gm/dL Hct (39.0-53.0) % MCHC (31.0-37.0) g/dL RDW (11.5-15.5) % Plt Count (150-450) k/uL Neutrophils # (1.3-7.7) k/uL APTT 39.9 H 50.9 H (22.0-30.0) sec ABG pH 7.58 H* (7.35-7.45) Sodium (137-145) mmol/L Potassium (3.5-5.1) mmol/L BUN (9-20) mg/dL Glucose (74-99) mg/dL POC Glucose (mg/dL) (75-99) mg/dL Calcium (8.4-10.2) mg/dL 10/13/19 10/13/19 10/14/19 Range/Units 17:51 22:06 06:00 RBC 4.02 L (4.30-5.90) m/uL Hgb 10.4 L (13.0-17.5) gm/dL Hct 34.4 L (39.0-53.0) % MCHC 30.4 L (31.0-37.0) g/dL RDW 17.7 H (11.5-15.5) % Plt Count 64 L (150-450) k/uL Neutrophils # 8.0 H (1.3-7.7) k/uL APTT (22.0-30.0) sec ABG pH (7.35-7.45) Sodium (137-145) mmol/L Potassium 3.4 L (3.5-5.1) mmol/L BUN 29 H (9-20) mg/dL Glucose 122 H (74-99) mg/dL POC Glucose (mg/dL) 125 H (75-99) mg/dL Calcium 6.9 L (8.4-10.2) mg/dL 10/14/19 10/14/19 Range/Units 06:00 06:00 RBC (4.30-5.90) m/uL Hgb (13.0-17.5) gm/dL Hct (39.0-53.0) % MCHC (31.0-37.0) g/dL RDW (11.5-15.5) % Plt Count (150-450) k/uL Neutrophils # (1.3-7.7) k/uL APTT 42.4 H (22.0-30.0) sec ABG pH (7.35-7.45) Sodium 134 L (137-145) mmol/L Potassium (3.5-5.1) mmol/L BUN 26 H (9-20) mg/dL Glucose 100 H (74-99) mg/dL POC Glucose (mg/dL) (75-99) mg/dL Calcium 6.9 L (8.4-10.2) mg/dL Microbiology - Last 24 Hours (Table) 10/10/19 20:26 Blood Culture - Preliminary Blood No Growth after 72 hours Assessment and Plan Assessment: Tachycardia and bradycardia syndrome with ejection and rhythm Acute systolic heart failure with ejection fraction 25% Chronic kidney disease stage III C. diff colitis Atrial fibrillation Diabetes mellitus Hypertension Hyperlipidemia Hypothyroidism History of upper peripheral artery disease Inset/depression, not in active issue History of cardiac valve replacement GERD Plan: This is a pleasant 64 years old male who presents with her diabetic arrhythmia and tachycardia/bradycardia and low ejection fraction 35%. Patient was told was a pack cardiology and intensive care unit team. Currently remains on heparin drip and D5 half-normal saline, and oral vancomycin, we'll plan for him to go for cardiac cath and possible AICD and pacemaker insertion Labs and medication were reviewed.. Continue same treatment. Continue with symptomatic treatment. Resume home medication. Monitor lytes and vitals. DVT and GI prophylaxis. Further recommendations of the clinical course of the pa tient DVT prophylaxis: heparin GI Prophylaxis: Ppi PT/OT: Pending Prognosis is guarded
--- NOTE | 2019-10-14 07:24 | XR ---
EXAMINATION TYPE: XR chest 1V portable DATE OF EXAM: 10/14/2019 COMPARISON: 10/13/2019 HISTORY: Precath lab examination. Recent extubation. TECHNIQUE: Single frontal view of the chest is obtained. FINDINGS: There is no focal air space opacity, pleural effusion, or pneumothorax seen. Epicardial pa cing leads are seen with post cardiac valvular replacement changes the chest and mildly enlarged card iac mediastinal silhouette. The osseous structures are intact. IMPRESSION: Stable postsurgical changes the chest. No acute process.
[2019-10-14 08:08] LABS: Glucose,Whole Blood 100 mg/dL (75-99)
[2019-10-14] MEDS: FLUoxetine HCL 20 MG CAP PO SCH (09:04)
[2019-10-14] MEDS: TAMSULOSIN 0.4 MG CAP.ER.24H PO SCH (09:04)
[2019-10-14] MEDS: hydrALAZINE HCL 25 MG TAB PO SCH ×3 (09:07→21:24)
[2019-10-14] MEDS: PANTOPRAZOLE 40 MG/10 ML VIAL IVP SCH ×2 (09:22→21:22)
--- NOTE | 2019-10-14 09:47 | P.PN ---
Subjective Progress Note Date: 10/14/19 This is a 64-year-old male patient who got transferred from [facility] because of tachybradycardia syndrome and ongoing cardiac arrhythmias and for that reason the patient got transferred to [facility] for cardiac evaluation and possible pacemaker insertion. The patient presented there in a poor health and living condition. He was having difficulties in taking care of himself because of an amputated left lower extremity above the knee. According to the hospital staff, the patient has been very weak and he was found to be at home covered with feces and possible bedbugs. He was brought into [facility] where he was found to be tachycardic and irregular rhythm possible atrial fibrillation. He was given a liter of IV fluids and he was placed on Cardizem drip and amiodarone drip and subsequently his heart rate dropped in the low 30s with junctional rhythm. The patient was also found to have elevated troponin and was a concern for an acute non-STEMI. 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 He is also known to have mild to moderate impairment of the LV with an ejection fraction depressed in the order of 40%, history of peripheral vascular disease, above- knee amputation left lower extremity, COPD, moderate to severe right internal carotid artery stenosis, chronic atrial fibrillation, stage III kidney disease, smoker, depression, hypertension, coronary artery disease with previous coronary stent placement, hypothyroidism, and acid reflux. The patient also has history of chronic anemia of an iron deficiency type. After he came in to our intensive care unit, the patient had an acute episode where he became unresponsive. A code stroke was called. Immediately a blood sugar was checked and the blood sugar was 35. The patient was given D50. She remained unresponsive. He be became more bradycardic with heart rate dropped down to the low 30s in a junctional rhythm. His blood pressure was undetectable although he had a very thready pulse. The pulses were weak mainly obtained in the right femoral area. She became agonal breathing. He became completely unresponsive. A code was called. I attended disclose. The patient was immediately intubated. I was able to successfully intubate the patient by #8 orotracheal tube. Subsequently I was able to insert a triple lumen catheter in his right femoral vein and it off and catheter in his right femoral artery. He was started on levo fed during this process and he was also given 1 amp of epinephrine. Currently norepinephrine is running at 0.08 g per KG per minute. His most recent blood pressure is 152/58. His current cardiac rhythm is junctional at the rate of 45 and external transcutaneous pacers was applied. Beaulieu catheter is in place. He is hypothermic and after optimizing his condition, the patient started having some response already started following some simple commands where he would open up his eyes upon demand, move around and breathable mechanical ventilator. Currently is on assist control mode at the rate of 20 to a tidal volume of 50 and FiO2 of 100% and a PEEP of 5. Chest x-ray shows adequate expansion of both lungs. No evidence of any pneumothorax. ET tube is in a good location. Presented was down by around 2 cm. NG tube was in the right mainstem and had to be pulled artery position. The follow-up blood sugar was 150. Cardiology will be made aware of these changes. The blood work from here shows a component of metabolic acidosis with a bicarb level of 11. Post intubation blood gases showed a pH of 7.03 with a pCO2 of 17 and a pO2 of more than 400 and FiO2 of 100%. INR is at 1.4. Creatinine is at 2.1 with a BUN of 64. On today's evaluation of 3 60,020 and seeing the patient for a follow-up. The patient is well sedated, comfortable upper performed which is currently running at 50 g per KG per minute. He remains intubated on a mechanical ventilator. He is on assist control mode of ventilation with tidal volume of 450 and the rate of 22 with an FiO2 of 40% and a PEEP of 5. The morning blood gases showed a pH of 7.46 with a pCO2 of 24 and pO2 of 272. In terms of his cardiac rhythm, the patient remains in the lower rate atrial fibrillation and the low 50s. At times his heart rate goes down to the 40s. He is on norepinephrine infusion which is running at 0.06 g per KG per minute. He has diminished urine output. Creatinine is at 2.1 which is stable and compared to yesterday no major change. Serum bicarbonate 16. IV fluids are running at the rate of 100 and hour of D5 with 3 A of sodium bicarb. His metabolic acidosis improving. Serum bicarb is at 16. No significant bradycardic episodes noted or junctional rhythm overnight. the chest x-ray from today shows adequate expansion of both lungs. ET tube is in a good location. NG tube is in a good location. There is no evidence of any airspace disease or pneumonia on today's chest x-ray. Echocardiogram was also completed yesterday and it showed a left ventricle ejection fraction of 20-25%. The patient has borderline concentric LVH. He has ischemic cardiomyopathy. His pulmonary artery pressures estimated to be around 40. He does have sacral decubitus ulceration, stage II and he has several of them across his buttock. We are putting zinc oxide cream. No signs of infection at this point in time. No fever. Furthermore, the patient was found to have a positive C. diff. He was started on oral vancomycin 250 mg by mouth every 6 hours. His last bout of diarrhea was yesterday. No further bouts of hypoglycemia. Morning blood sugar is 146. He is going to be started on enteral feeding for nutritional support. His evaluation of 10/12/2019 and see the patient for a follow-up. The patient is still intubated on a mechanical ventilator. The vent setting this morning includes an assist-control 14 with a tidal volume of 400 and FiO2 of 40% with a PEEP of 5. Blood gases showed a component of metabolic and respiratory alkalosis. PH was at 7.58 with a pCO2 of 30 and pO2 191. This was done with an FiO2 of 40%. The chest x-ray from today showed adequate positioning of the ET tube. The patient has no evidence of any pulmonary edema or consolidation. He may have some increased pulmonary vessel congestion right more than left. ET tube is in a good location. He has a mitral valve ring. Based on this respiratory alkalosis, discontinue the bicarb infusion I dropped a respiratory rate down to 14 this morning. Earlier aspirate was 22. The patient has no significant orotracheal secretions. He is not febrile. His blood sugars of a well-maintained and he had not had any further episodes of hypoglycemia. I'm in the process of getting this patient a sedation holiday to assess his mental status and assess his candidacy for further weaning. Hemodynamically he is in atrial fibrillation lower right with the lowest heart rate being in the 40s. He is still on norepinephrine infusion running at 0.06 g per KG per minute. Urine output is adequate and the creatinine is also improving and the creatinine is down to 1.53. The rest of the blood work shows that the troponin maxed at 7.9 consistent with acute non-STEMI. Echocardiogram showed improvement in LV function and this is a recent drop in his LV with ejection fraction is down to 20-25%. On 10/13/2019 the patient is widely awake, comfortable without any significant respiratory distress. The patient was weaned off the mechanical ventilator and he was extubated yesterday without any major difficulties. He is currently on room air oxygen. No significant signs of any shortness of breath. He is hemodynamically stable. He is on no pressors. He remains on IV heparin. The plan is to proceed with a cardiac catheterization for further investigation of his underlying cardiac arrhythmia and a drop in his left ventricular ejection fraction which is down to 25%. Currently is in atrial fibrillation and the rate has improved. He is still having occasional bradycardias with heart rate dropped as low as 50. No syncope. No loss of consciousness. No other fever or chills or any other issues. The patient is tolerating his diet. The swallowing evaluation was done at the bedside today in the I will he was able to pass without any major difficulties. On today's evaluation of, the patient remains hemodynamically stable. The patient is not having any significant arrhythmias terms of bradycardia. No syncope. No tachycardia. He remains in atrial fibrillation. He will be undergoing a cardiac catheterization today. His creatinine is down to 1.01. His LV ejection fraction is around 25%. The rest or difficulties. No cough sputum production chest tightness or wheezing. The patient is nothing by mouth for now. No fever. No chills. No other significant events overnight. The patient is on no pressors for now. Is receiving D5 half-normal saline at the rate of 50 mL an hour. Objective - Vital Signs Vital signs: Vital Signs Temp 98.0 F 10/14/19 00:00 Pulse 110 H 10/14/19 06:00 Resp 16 10/14/19 06:00 BP 109/74 10/14/19 06:00 Pulse Ox 98 10/14/19 04:00 Intake & Output 10/13/19 10/14/19 10/14/19 18:59 06:59 18:59 Intake Total 877.148 600 264.781 Output Total 685 730 40 Balance 192.148 -130 224.781 Weight 66.1 kg Intake: IV 600 600 50 Dextrose 5%-0.45% NaCl 1, 600 600 50 000 ml @ 50 mls/hr IV . Q20H AJ Rx#:[id number] Intake, IV Titration 277.148 214.781 Amount Heparin Sod,Pork in 0.45% 177.148 214.781 NaCl 25,000 unit In 0.45 % NaCl 1 250ml.bag @ 12 UNITS/KG/HR 7.932 mls/hr IV .Q24H AJ Rx#: [id number] Potassium Chloride 20 meq 100 In Water For Injection 1 100ml.bag @ 50 mls/hr IVPB Q2H AJ Rx#: [id number] Output: Urine 685 730 40 Other: Voiding Method Indwelling Catheter Indwelling Catheter ABP, PAP, CO, CI - Last Documented Arterial Blood Pressure 134/57 - Exam The patient is currently awake and alert and extubated currently on room air Head exam was generally normal. There was no scleral icterus or corneal arcus. Mucous membranes were moist. Neck was supple and without jugular venous distension, thyromegaly, or carotid bruits. Carotids were easily palpable bilaterally. There was no adenopathy. The patient has very poor dentition. Multiple decayed teeth. Multiple missing alfa th. No significant JVDs. Lungs were clear to auscultation and percussion, and with normal diaphragmatic excursion. No wheezes or rales were noted. Heart sounds are bradycardic, positive S1-S2, overall heart sounds are distant. There is a sternotomy scar over the anterior chest. There are transcutaneous pacemaker leads over the anterior chest. No rubs. No cervical murmurs appreciated. Abdominal exam revealed normal bowel sounds. The abdomen was soft, non-tender, and without masses, organomegaly, or appreciable enlargement of the abdominal aorta. Extremities the patient has an above-knee amputation left lower extremity. Right lower extremity reveals no significant edema. No cyanosis. No clubbing. Pulses are diminished at the present in all 4 extremities. The patient is a triple-lumen catheter/Art line Catheter in his right groin in the right femoral vein and artery. Neurologically, awake and alert and there is no focal neurological deficit - Labs CBC & Chem 7: 10/14/19 06:00 10/14/19 06:00 Labs: Abnormal Lab Results - Last 24 Hours (Table) 03/02/2310/13/19 10/13/19 Range/Units 05:10 17:51 17:51 RBC (4.30-5.90) m/uL Hgb (13.0-17.5) gm/dL Hct (39.0-53.0) % MCHC (31.0-37.0) g/dL RDW (11.5-15.5) % Plt Count (150-450) k/uL Neutrophils # (1.3-7.7) k/uL APTT 50.9 H (22.0-30.0) sec ABG pH 7.58 H* (7.35-7.45) Sodium (137-145) mmol/L Potassium 3.4 L (3.5-5.1) mmol/L BUN 29 H (9-20) mg/dL Glucose 122 H (74-99) mg/dL POC Glucose (mg/dL) (75-99) mg/dL Calcium 6.9 L (8.4-10.2) mg/dL 10/13/19 10/14/19 10/14/19 Range/Units 22:06 06:00 06:00 RBC 4.02 L (4.30-5.90) m/uL Hgb 10.4 L (13.0-17.5) gm/dL Hct 34.4 L (39.0-53.0) % MCHC 30.4 L (31.0-37.0) g/dL RDW 17.7 H (11.5-15.5) % Plt Count 64 L (150-450) k/uL Neutrophils # 8.0 H (1.3-7.7) k/uL APTT (22.0-30.0) sec ABG pH (7.35-7.45) Sodium 134 L (137-145) mmol/L Potassium (3.5-5.1) mmol/L BUN 26 H (9-20) mg/dL Glucose 100 H (74-99) mg/dL POC Glucose (mg/dL) 125 H (75-99) mg/dL Calcium 6.9 L (8.4-10.2) mg/dL 10/14/19 10/14/19 Range/Units 06:00 08:06 RBC (4.30-5.90) m/uL Hgb (13.0-17.5) gm/dL Hct (39.0-53.0) % MCHC (31.0-37.0) g/dL RDW (11.5-15.5) % Plt Count (150-450) k/uL Neutrophils # (1.3-7.7) k/uL APTT 42.4 H (22.0-30.0) sec ABG pH (7.35-7.45) Sodium (137-145) mmol/L Potassium (3.5-5.1) mmol/L BUN (9-20) mg/dL Glucose (74-99) mg/dL POC Glucose (mg/dL) 100 H (75-99) mg/dL Calcium (8.4-10.2) mg/dL Microbiology - Last 24 Hours (Table) 10/10/19 20:26 Blood Culture - Preliminary Blood No Growth after 72 hours Assessment and Plan Plan: 1 acute unresponsiveness, multifactorial. Recovered and the patient is back to his normal mentation. This was probably related to hypoglycemia and cardiac arrhythmias. The patient has normal mental status for now 2 acute hypoglycemia, treated, blood sugars of normalized, currently on D5 half- normal at the rate of 50 mL an hour. Blood sugars are being monitored and he is on sliding scale coverage for now 3 junctional bradycardia with a possibility of tachybradycardia syndrome, awaiting a pacemaker insertion. Currently the patient has a transcutaneous pacemaker which is on standby. His current rate is in lower rate atrial fibrillation. Note that the patient's ejection fraction dropped acutely down to 2024% and this could've occurred in the setting of an acute non-STEMI/coronary a rtery disease. The patient will need a cardiac catheterization with possible subsequent pacer AICD placement. This will be discussed with cardiology. Current rhythm is atrial fibrillation lower rates. The patient be taken to cardiac catheterization for evaluation of his underlying coronary status. May be a candidate for pacer/defibrillator at a later stage. His LV ejection fraction is around 20-25% 4 hypotension, pressor dependent. Rule out cardiogenic shock, echocardiogram was done and his ejection fraction is around 20-25%, the patient is off pressors and the patient remains off pressors for now 5 coronary artery disease with previous history of or intervention and stenting, acute non-STEMI and a troponin maxed right now is 7.9 6 CHF with ischemic cardiomyopathy and ejection fraction of 20-25% 7 history of rheumatologic mitral regurg post mitral valve repair and modified Albert-Maze procedure 8 peripheral vascular disease with previous left lower extremity amputation 9 chronic stage III kidney disease with a component of an acute kidney injury. Creatinine is improving is down and it continues to improve is down to 1.3 10 COPD 11 hypothyroidism 12 hypertension 13 carotid artery disease 14 severe mixed anion and non-anion gap metabolic acidosis, recovered and cur rent acid base status is leaning towards metabolic alkalosis. 15 acute respiratory failure secondary to above-mentioned comorbidities and complications. The patient had an acute unresponsiveness and acute hypoxic/respiratory failure. Post intubation examination improved. 16 history of atrial fibrillation 17 chronic anxiety 18 C. diff colitis currently on oral vancomycin, no diarrhea 19 stage II sacral decubitus ulceration/pressure ulcers 20 bedbugs per history 21 thrombocytopenia, cardiology is aware and that is down to 64. The patient is taken off the P IV heparin this morning. Plan IV heparin was discontinued Monitor platelet counts Proceed with cardiac catheterization wound care and we will consult wound services for further advice. We'll apply zinc oxide and we'll consult wound services. Continue oral vancomycin Condition is still critical.
[2019-10-14] MEDS ORDERED: IV FLUID CONTINUATION 450 ML IV ONE (10:01)
[2019-10-14] MEDS ORDERED: LIDOCAINE 1% INJ 10MG/ML (20 ML MDV) ONE (10:14)
[2019-10-14] MEDS ORDERED: fentaNYL (PF) 50 MCG/ML 2 ML AMP ONE (10:15)
[2019-10-14] MEDS ORDERED: fentaNYL (PF) 50 MCG/ML 2 ML AMP IV ONE (10:29)
[2019-10-14] MEDS: HEPARIN SOD,PORK IN 0.45% NACL 25,000 UNIT in 0.45% NACL 1 250ML.BAG IV SCH (10:53)
[2019-10-14 12:02] LABS: Glucose,Whole Blood 101 mg/dL (75-99)
[2019-10-14] MEDS: METOPROLOL TARTRATE 12.5 MG TAB PO SCH ×2 (12:22→21:22)
--- NOTE | 2019-10-14 13:49 | PN ---
PROGRESS NOTE Mr. Maradiaga is a 64-year-old male with known history of coronary artery disease, status post percutaneous revascularization, history of mitral valve repair, history of atrial fibrillation, who presented with atrial fibrillation and wide-complex tachycardia. He was found to have severe cardiomyopathy. He is scheduled to undergo cardiac catheterization today by Dr. Godoy. He denies any dizziness or palpitation. He denies any nausea. He continues to be at this time on aspirin once a day, Lipitor 40 mg daily, hydralazine 25 mg twice a day. PHYSICAL EXAMINATION: Blood pressure 128/70 with the heart rate in the 90s. LUNGS: Clear. HEART: Irregular, irregular. S1, S2. No S3. No rub. ABDOMEN: Soft, nontender. EXTREMITIES: +1 edema with amputation on the left side. LAB DATA: Lab data revealed BUN and creatinine 26 and 1.01, potassium 3.9, hemoglobin of 10.4. IMPRESSION: 1. Non ST-segment elevation myocardial infarction. 2. Cardiomyopathy worse than baseline. 3. Status post mitral valve repair. 4. History of stenting of the LAD. 5. Atrial fibrillation. RECOMMENDATION: Patient will undergo coronary angiography today by Dr. Godoy and depending on the findings, further recommendation will be made. I have discussed those findings with the patient and he is in full understanding and agreement. MMODL / IJN: [id number] /
[2019-10-14 16:57] LABS: Glucose,Whole Blood 67 mg/dL (75-99)
[2019-10-14 17:12] LABS: Glucose,Whole Blood 60 mg/dL (75-99)
[2019-10-14] MEDS ORDERED: DEXTROSE 50% SYRINGE 50 ML IVP ONE (17:12)
[2019-10-14 17:30] LABS: Glucose,Whole Blood 88 mg/dL (75-99)
[2019-10-14] MEDS: HYDROcodone/APAP 10-325MG 1 EACH TAB PO PRN (19:03)
[2019-10-14 20:29] LABS: Glucose,Whole Blood 138 mg/dL (75-99)
[2019-10-15] MEDS: DOPamine DRIP 800 MG in DEXTROSE/WATER 1 250ML.BAG IV SCH ×2 (00:16→22:14)
[2019-10-15] MEDS: NOREPINEPHRINE 4 MG in SODIUM CHLORIDE 0.9% 250 ML IV SCH ×2 (00:17→16:04)
[2019-10-15] MEDS: CHERRY FLAVOR 60 ML BOTTLE PO SCH ×4 (00:20→18:13)
[2019-10-15] MEDS: VANCOMYCIN ORAL SOLUTION 250 MG/5 ML BOTTLE PO SCH ×4 (00:21→18:13)
[2019-10-15 03:34] LABS: Appearance,Urine Clear (Clear); Bacteria,Urine Rare /hpf; Bilirubin,Urine Negative (Negative); Blood,Urine Moderate (Negative); Color,Urine Yellow; Glucose,Urine (UA) Negative (Negative); Granular Casts,Urine 3 /lpf (0); Hyaline Casts,Urine 1 /lpf (0-2); Ketones,Urine Negative (Negative); Leukocyte Esterase,Urine Trace (Negative); Nitrite,Urine Negative (Negative); PH, Urine 6.5 (5.0-8.0); Protein,Urine 1+ (Negative); RBC,Urine 9 /hpf (0-5); Specific Gravity,Urine 1.018 (1.001-1.035); Urobilinogen,Urine <2.0 mg/dL (<2.0); WBC,Urine 7 /hpf (0-5)
[2019-10-15] MEDS ORDERED: SODIUM CHLORIDE 0.9% 500 ML 500 ML IV ONE (04:50)
[2019-10-15 04:52] LABS: Anisocytosis Slight; Basophils % (A) 0 %; Eosinophils # (A) 0.1 k/uL (0-0.7); Eosinophils % (A) 1 %; HCT 35.1 % (39.0-53.0); HGB 10.4 gm/dL (13.0-17.5); Hypochromasia Marked; Lymphocytes # (A) 1.1 k/uL (1.0-4.8); Lymphocytes % (A) 12 %; MCHC 29.6 g/dL (31.0-37.0); MCV 87.9 fL (80.0-100.0); Mean Platelet Volume 9.1; Monocytes # (A) 0.3 k/uL (0-1.0); Monocytes % (A) 4 %; Neutrophils # (A) 7.9 k/uL (1.3-7.7); Neutrophils % (A) 80 %; RBC 3.99 m/uL (4.30-5.90); RDW 17.6 % (11.5-15.5); WBC 9.8 k/uL (3.8-10.6)
[2019-10-15 04:56] LABS: Platelet Count 62 k/uL (150-450)
[2019-10-15] MEDS: ASPIRIN 81 MG PO SCH (04:59)
[2019-10-15] MEDS ORDERED: ASPIRIN 325 MG TAB PO ONE (06:00)
[2019-10-15 06:15] LABS: Calcium 7.1 mg/dL (8.4-10.2); Potassium 3.7 mmol/L (3.5-5.1)
[2019-10-15] MEDS: DEXTROSE 5%-0.45% NACL 1,000 ML IV SCH (06:22)
[2019-10-15] MEDS: LEVOTHYROXINE 25 MCG TAB PO SCH (06:34)
[2019-10-15] MEDS: HYDROcodone/APAP 10-325MG 1 EACH TAB PO PRN (06:35)
[2019-10-15] MEDS ORDERED: POTASSIUM BICARBONATE/CIT AC 20 MEQ TABLET.EFF NG-TUBE SCH (07:00)
[2019-10-15 07:01] LABS: Glucose,Whole Blood 110 mg/dL (75-99)
--- NOTE | 2019-10-15 07:01 | P.PN ---
Subjective This is a pleasant 64 years old -[place]ux[place]bour[place] male, with past medical history of coronary artery disease, atrial fibrillation, COPD, diabetes mellitus, hypertension, hyperlipidemia, hypothyroidism, chronic kidney disease stage III, peripheral artery disease, anxiety/depression, cardiac valve replacement, GERD. He was transferred from [facility] to [facility] in ICU for tachyarrhythmia found to have low ejection fraction of 25%, and his been followed closely by cardiology team and critical care team, he was intubated temporally and currently he is on room air with oxygen saturation of 97-98%, still still tachycardic of 108-124, blood pressure 109/74. Been afebrile. Creatinine elevated initially came back to normal at 1.0 today, sodium 134, not elevated white cell count at 9.9K, hemoglobin 10.4, platelets low at 64K. 10/15/2019 Patient remains in the ICU, he is totally awake and oriented, looks comfortable. Patient yesterday couldn't get his cardiac cath due to procedure problem, cardiology team will try again today with possible pacemaker/AICD placement. His heart rate looks more stable in the 70s and 80s other than a few PVCs and PACs, That he is hemodynamically stable, he denies any chest pain or dyspnea, he complained of some right foot pain and there is minimal ulceration on the toes months does not look infected, his WBC is 9.8K, hemoglobin 10.4, platelets 62, sodium 135, potassium 3.7 and creatinine 1.13. Ejection fraction 25% He remains on D5 half-normal saline at 50 mL per hour and oral vancomycin for possible C. diff colitis, Lopressor 12.5 mg twice daily was added yesterday and patient tolerated that well. Continue with aspirin 325 mg and Protonix 40 mg twice a day Review of systems CONSTITUTIONAL: No fever, no malaise, no fatigue. HEENT: No recent visual problems or hearing problems. Denied any sore throat. CARDIOVASCULAR: No orthopnea, PND, no palpitations, no syncope. PULMONARY: No shortness of breath, no cough, no hemoptysis. GASTROINTESTINAL: No diarrhea, no nausea, no vomiting, no abdominal pain. Normoactive bowel sounds. NEUROLOGICAL: No headaches, no weakness, no numbness. HEMATOLOGICAL: Denies any bleeding or petechiae. GENITOURINARY: Denies any burning micturition, frequency, or urgency. MUSCULOSKELETAL/RHEUMATOLOGICAL: Denies any joint pain, swelling, or any muscle pain. ENDOCRINE: Denies any polyuria or polydipsia. Active Medications Generic Name Dose Route Start Last Admin Trade Name Freq PRN Reason Stop Dose Admin Hydrocodone Bitart/Acetaminophen 1 each 10/10/19 13:28 10/15/19 06:35 [place] 10 PO 1 each Q6H PRN Administration Pain Alprazolam 0.25 mg 10/13/19 09:54 Xanax PO Q6HR PRN Mild Anxiety Alprazolam 0.5 mg 10/13/19 09:54 Xanax PO Q6HR PRN Moderate Anxiety Aspirin 81 mg 10/11/19 09:00 10/15/19 04:59 Aspirin PO Not Given DAILY [facility] Atorvastatin Calcium 40 mg 10/11/19 09:00 10/13/19 10:00 Lipitor PO Not Given DAILY [facility] Melendez Syrup 5 ml 10/11/19 06:00 10/15/19 06:25 Melendez Syrup PO 5 ml Q6H AJ Administration Fluoxetine HCl 20 mg 10/11/19 09:00 10/14/19 09:04 Prozac PO Not Given DAILY [facility] Heparin Sodium (Porcine) 0 unit 10/12/19 09:51 10/13/19 09:47 Heparin IV 1,652.5 unit PER PROTOCOL PRN Administration Low PTT Protocol Hydralazine HCl 25 mg 10/10/19 21:00 10/14/19 21:24 Apresoline PO Not Given BID AJ Norepinephrine Bitartrate 4 mg 254 mls @ 12.954 mls/hr 10/10/19 19:00 10/15/19 00:17 / Sodium Chloride IV Not Given .[id number] AJ Protocol 0.05 MCG/KG/MIN Dopamine HCl/Dextrose 800 mg/ 250 mls @ 1.275 mls/hr 10/10/19 22:00 10/15/19 00:16 IV Solution IV Not Given .Q24H AJ Protocol 1 MCG/KG/MIN Heparin Sodium/Sodium Chloride 250 mls @ 7.932 mls/hr 10/12/19 10:00 10/14/19 10:53 25,000 unit/ Sodium Chloride IV Not Given .Q24H AJ Protocol 12 UNITS/KG/HR Dextrose/Sodium Chloride 1,000 mls @ 50 mls/hr 10/12/19 13:45 10/15/19 06:22 Dextrose 5%-1/2ns Iv Soln IV 50 mls/hr .Q20H AJ Administration Levothyroxine Sodium 25 mcg 10/11/19 06:30 10/15/19 06:34 Synthroid PO 25 mcg DAILY@0630 AJ Administration Metoprolol Tartrate 12.5 mg 10/14/19 12:00 10/14/19 21:22 Lopressor PO 12.5 mg BID AJ Administration Miscellaneous Information 1 each 10/13/19 06:35 Potassium Per Protocol MISCELLANE DAILY PRN Per Protocol Protocol Naloxone HCl 0.2 mg 10/10/19 18:59 Narcan IV Q2M PRN Opioid Reversal Nitroglycerin 0.4 mg 10/13/19 09:54 Nitrostat SUBLINGUAL Q5M PRN Chest Pain Ondansetron HCl 4 mg 10/10/19 13:28 Zofran IVP Q6HR PRN Nausea And Vomiting Pantoprazole Sodium 40 mg 10/10/19 21:00 10/14/19 21:22 Protonix IVP 40 mg BID AJ Administration Potassium Bicarbonate 20 meq 10/15/19 07:00 10/15/19 06:36 K-Lyte NG-TUBE 10/15/19 07:01 20 meq Q1HR [facility] Administration Protocol Tamsulosin HCl 0.4 mg 10/11/19 08:30 10/14/19 09:04 Flomax PO Not Given PC-BRKFST [facility] Vancomycin HCl 250 mg 10/11/19 06:00 10/15/19 06:25 Vancomycin Oral Solution PO 250 mg Q6HR AJ Administration Objective - Vital Signs Vital signs: Vital Signs Temp 98.1 F 10/15/19 04:00 Pulse 79 10/15/19 06:00 Resp 14 10/15/19 06:00 BP 112/67 10/15/19 06:00 Pulse Ox 100 10/15/19 06:00 Intake & Output 10/14/19 10/14/19 10/15/19 06:59 18:59 06:59 Intake Total 600 964.781 500 Output Total 730 450 237 Balance -130 514.781 263 Weight 72.8 kg Intake: IV 600 750 500 Dextrose 5%-0.45% NaCl 1, 600 650 500 000 ml @ 50 mls/hr IV . Q20H AJ Rx#:[id number] Intake, IV Titration 214.781 Amount Heparin Sod,Pork in 0.45% 214.781 NaCl 25,000 unit In 0.45 % NaCl 1 250ml.bag @ 12 UNITS/KG/HR 7.932 mls/hr IV .Q24H AJ Rx#: [id number] Output: Urine 730 450 237 Other: Voiding Method Indwelling Catheter Indwelling Catheter Indwelling Catheter ABP, PAP, CO, CI - Last Documented Arterial Blood Pressure 142/59 - Exam GENERAL: The patient is alert and oriented x3, not in any acute distress. Well developed, well nourished. HEENT: Pupils are round and equally reacting to light. EOMI. No scleral icterus. No conjunctival pallor. Normocephalic, atraumatic. No pharyngeal erythema. No thyromegaly. CARDIOVASCULAR: S1 and S2 present. No murmurs, rubs, or gallops. PULMONARY: Chest is clear to auscultation, no wheezing or crackles. -ABDOMEN: Soft, nontender, nondistended, normoactive bowel sounds. No palpable organomegaly. Beaulieu catheter is in place MUSCULOSKELETAL: No joint swelling or deformity. EXTREMITIES: No cyanosis, clubbing, or pedal edema. NEUROLOGICAL: Gross neurological examination did not reveal any focal deficits. SKIN: No rashes. no petechiae. - Labs CBC & Chem 7: 10/15/19 04:30 10/15/19 05:46 Labs: Abnormal Lab Results - Last 24 Hours (Table) 10/14/19 10/14/19 10/14/19 Range/Units 08:06 12:01 16:55 RBC (4.30-5.90) m/uL Hgb (13.0-17.5) gm/dL Hct (39.0-53.0) % MCHC (31.0-37.0) g/dL RDW (11.5-15.5) % Plt Count (150-450) k/uL Neutrophils # (1.3-7.7) k/uL Sodium (137-145) mmol/L BUN (9-20) mg/dL POC Glucose (mg/dL) 100 H 101 H 67 L (75-99) mg/dL Calcium (8.4-10.2) mg/dL Urine Protein (Negative) Urine Blood (Negative) Ur Leukocyte Esterase (Negative) Urine RBC (0-5) /hpf Urine WBC (0-5) /hpf Urine Bacteria (None) /hpf 10/14/19 10/14/19 10/15/19 Range/Units 17:10 20:28 02:00 RBC (4.30-5.90) m/uL Hgb (13.0-17.5) gm/dL Hct (39.0-53.0) % MCHC (31.0-37.0) g/dL RDW (11.5-15.5) % Plt Count (150-450) k/uL Neutrophils # (1.3-7.7) k/uL Sodium (137-145) mmol/L BUN (9-20) mg/dL POC Glucose (mg/dL) 60 L 138 H (75-99) mg/dL Calcium (8.4-10.2) mg/dL Urine Protein 1+ H (Negative) Urine Blood Moderate H (Negative) Ur Leukocyte Esterase Trace H (Negative) Urine RBC 9 H (0-5) /hpf Urine WBC 7 H (0-5) /hpf Urine Bacteria Rare H (None) /hpf 10/15/19 10/15/19 Range/Units 04:30 05:46 RBC 3.99 L (4.30-5.90) m/uL Hgb 10.4 L (13.0-17.5) gm/dL Hct 35.1 L (39.0-53.0) % MCHC 29.6 L (31.0-37.0) g/dL RDW 17.6 H (11.5-15.5) % Plt Count 62 L (150-450) k/uL Neutrophils # 7.9 H (1.3-7.7) k/uL Sodium 135 L (137-145) mmol/L BUN 22 H (9-20) mg/dL POC Glucose (mg/dL) (75-99) mg/dL Calcium 7.1 L (8.4-10.2) mg/dL Urine Protein (Negative) Urine Blood (Negative) Ur Leukocyte Esterase (Negative) Urine RBC (0-5) /hpf Urine WBC (0-5) /hpf Urine Bacteria (None) /hpf Microbiology - Last 24 Hours (Table) 10/10/19 20:26 Blood Culture - Preliminary Blood No Growth after 96 hours Assessment and Plan Assessment: Tachycardia and bradycardia syndrome Acute systolic heart failure with ejection fraction 25% Chronic kidney disease stage III C. diff colitis Atrial fibrillation Diabetes mellitus Hypertension Hyperlipidemia Hypothyroidism History of upper peripheral artery disease Inset/depression, not in active issue History of cardiac valve replacement GERD Plan: This is a pleasant 64 years old male who presents with her diabetic arrhythmia and tachycardia/bradycardia and low ejection fraction 35%. Patient was told was a pack cardiology and intensive care unit team. Currently remains on heparin drip and D5 half-normal saline, and oral vancomycin, we'll plan for him to go for cardiac cath and possible AICD and pacemaker insertion Labs and medication were reviewed.. Continue same treatment. Continue with symptomatic treatment. Resume home medication. Monitor lytes and vitals. DVT and GI prophylaxis. Further recommendations of the clinical course of the patient DVT prophylaxis: heparin GI Prophylaxis: Ppi PT/OT: Pending Prognosis is guarded
[2019-10-15] MEDS: TAMSULOSIN 0.4 MG CAP.ER.24H PO SCH (08:42)
[2019-10-15] MEDS: ATORVASTATIN 40 MG TAB PO SCH (08:44)
[2019-10-15] MEDS: FLUoxetine HCL 20 MG CAP PO SCH (08:44)
[2019-10-15] MEDS: METOPROLOL TARTRATE 12.5 MG TAB PO SCH ×2 (09:15→21:20)
[2019-10-15] MEDS: PANTOPRAZOLE 40 MG/10 ML VIAL IVP SCH (09:15)
[2019-10-15] MEDS: hydrALAZINE HCL 25 MG TAB PO SCH ×2 (09:15→21:10)
[2019-10-15] MEDS ORDERED: LIDOCAINE 1% INJ 10MG/ML (20 ML MDV) ONE (10:02)
[2019-10-15] MEDS ORDERED: fentaNYL (PF) 50 MCG/ML 2 ML AMP ONE (10:02)
[2019-10-15] MEDS: HEPARIN SOD,PORK IN 0.45% NACL 25,000 UNIT in 0.45% NACL 1 250ML.BAG IV SCH (10:08)
[2019-10-15] MEDS ORDERED: MIDAZOLAM 2 MG/2 ML VIAL IVP ONE (10:10)
[2019-10-15] MEDS ORDERED: IV FLUID CONTINUATION 400 ML IV ONE (10:10)
[2019-10-15] MEDS ORDERED: fentaNYL (PF) 50 MCG/ML 2 ML AMP IV ONE (10:10)
[2019-10-15] MEDS ORDERED: LIDOCAINE 1% INJ 10MG/ML (20 ML MDV) SQ ONE (10:12)
--- NOTE | 2019-10-15 10:52 | CC ---
CARDIAC CATHETERIZATION REPORT INDICATION: Non ST-segment elevation MT. PROCEDURE NOTE: After obtaining informed consent, left heart catheterization and coronary angiogram are performed via the right femoral artery using standard Felicitas catheters. Patient tolerated the procedure well without any obvious immediate complications. FINDINGS: 1. HEMODYNAMICS: Left ventricular end-diastolic pressure is 10 mm. There is no significant gradient across the aortic valve. 2. LEFT VENTRICULOGRAM: Left ventriculogram is not performed. 3. ANGIOGRAPHIC DATA: Left Main Coronary Artery: Left main coronary artery is a normal-sized vessel and is free of stenosis. Divides into left anterior descending coronary artery and circumflex coronary artery. LAD was previously stented in its midportion and just past the stent there is a 60% to 70% stenosis noted. Circumflex coronary artery is a nondominant vessel and is free of significant stenosis. Right coronary artery is a large dominant vessel that shows a focal area of 95% stenosis in its midportion. CONCLUSION: Severe to two-vessel coronary artery disease as described above. PLAN: I will have Dr. Gordon review the angiographic data and proceed with angioplasty of right coronary artery with or without LAD. MMODL / IJN: [id number] /
[2019-10-15] MEDS ORDERED: BIVALIRUDIN 250 MG in SODIUM CHLORIDE 0.9% 50 ML IV ONE (10:58)
[2019-10-15] MEDS ORDERED: BIVALIRUDIN BOLUS 250 MG/50 ML IV ONE (10:58)
[2019-10-15] MEDS: NITROGLYCERIN 1000MCG/10ML SYRINGE INTRACORON ONE ×2 (10:59→11:18)
[2019-10-15] MEDS ORDERED: IOPAMIDOL-370 100ML BTL INJ ONE ×2 (11:07→11:24)
[2019-10-15] MEDS ORDERED: PRASUGREL 10 MG TAB ONE (11:10)
[2019-10-15] MEDS ORDERED: PRASUGREL 10 MG TAB PO ONE (11:15)
[2019-10-15] MEDS ORDERED: RX INFO: IV CONTRAST WAS GIVEN 1 EACH MISC MISCELLANE PRN (11:28)
[2019-10-15] MEDS ORDERED: NITROGLYCERIN SL TABS 0.4 MG TAB SUBLINGUAL PRN (11:28)
[2019-10-15] MEDS ORDERED: ZOLPIDEM 5 MG TAB PO PRN (11:28)
[2019-10-15] MEDS ORDERED: ATROPINE SULFATE 0.1 MG/ML 10ML SYRINGE IV PRN (11:28)
[2019-10-15] MEDS ORDERED: MAG HYDROX/AL HYDROX/SIMETH 30 ML CUP PO PRN (11:28)
[2019-10-15] MEDS ORDERED: SODIUM CHLORIDE 0.9% 1,000 ML IV SCH (11:30)
--- NOTE | 2019-10-15 11:44 | PTCA ---
PERCUTANEOUSTRANS CORORONARY ANGIOGRAPHY DATE OF SERVICE: October 15, 2019. PERFORMING PHYSICIAN: Jesús Gordon MD. PROCEDURE PERFORMED: 1. Successful stenting of the mid RCA using 3.0 x 23 mm Xience REJI with an excellent angiographic result and reduction of stenosis from 90% to 0%. 2. Successful stenting of the mid LAD using 3.0 x 18 mm Xience REJI with an excellent angiographic result and reduction of stenosis from 80% to 0%. INDICATION: This is a 64-year-old gentleman with history of coronary artery disease and prior stenting of the LAD as well as hypertension and dyslipidemia and peripheral arterial disease, who was admitted to the hospital with chest discomfort and ruled in for acute non-STEMI. He underwent a heart catheterization by Dr. Godoy and was found to have critical disease involving the mid RCA and severe disease involving the mid LAD. The decision was made toward percutaneous coronary intervention. APPROACH: Right common femoral artery. COMPLICATION: None. LEVEL OF SEDATION: Moderate with sedation length of 30 minutes. PROCEDURE DESCRIPTION: Please refer to diagnostic heart catheterization that was performed by Dr. Godoy earlier today. Anticoagulation was initiated using Angiomax. Subsequently I did engage the RCA using JR3.5 short tip. I did wire it using a run-through wire. After that, I did direct stenting using 3.0 x 23 mm Xience REJI where the stent was positioned under fluoroscopy guidance and deployed under its nominal pressure. I postdilated the stent using 3.5 mm NC balloon. The following angiogram showed excellent angiographic results and the procedure was completed without any complication. For the LAD, I did engage the LAD using JL4 guide. I did wire it using a run-through wire as well. I did direct stenting using 3.0 x 18 mm Xience where the stent again was positioned under fluoroscopy guidance and deployed under its nominal pressure. I postdilated the stent using 3.5 mm NC balloon. The following angiogram showed excellent angiographic results and the procedure was completed without any complication. POSTPROCEDURE MANAGEMENT: 1. Dual antiplatelet therapy. 2. Risk factors modifications. 3. Follow up with the patient. MMODL / IJN: [id number] /
[2019-10-15 11:57] LABS: Glucose,Whole Blood 78 mg/dL (75-99)
--- NOTE | 2019-10-15 13:10 | P.PN ---
Subjective Progress Note Date: 10/15/19 This is a 64-year-old male patient who got transferred from [facility] because of tachybradycardia syndrome and ongoing cardiac arrhythmias and for that reason the patient got transferred to [facility] for cardiac evaluation and possible pacemaker insertion. The patient presented there in a poor health and living condition. He was having difficulties in taking care of himself because of an amputated left lower extremity above the knee. According to the hospital staff, the patient has been very weak and he was found to be at home covered with feces and possible bedbugs. He was brought into [facility] where he was found to be tachycardic and irregular rhythm possible atrial fibrillation. He was given a liter of IV fluids and he was placed on Cardizem drip and amiodarone drip and subsequently his heart rate dropped in the low 30s with junctional rhythm. The patient was also found to have elevated troponin and was a concern for an acute non-STEMI. 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 He is also known to have mild to moderate impairment of the LV with an ejection fraction depressed in the order of 40%, history of peripheral vascular disease, above- knee amputation left lower extremity, COPD, moderate to severe right internal carotid artery stenosis, chronic atrial fibrillation, stage III kidney disease, smoker, depression, hypertension, coronary artery disease with previous coronary stent placement, hypothyroidism, and acid reflux. The patient also has history of chronic anemia of an iron deficiency type. After he came in to our intensive care unit, the patient had an acute episode where he became unresponsive. A code stroke was called. Immediately a blood sugar was checked and the blood sugar was 35. The patient was given D50. She remained unresponsive. He be became more bradycardic with heart rate dropped down to the low 30s in a junctional rhythm. His blood pressure was undetectable although he had a very thready pulse. The pulses were weak mainly obtained in the right femoral area. She became agonal breathing. He became completely unresponsive. A code was called. I attended disclose. The patient was immediately intubated. I was able to successfully intubate the patient by #8 orotracheal tube. Subsequently I was able to insert a triple lumen catheter in his right femoral vein and it off and catheter in his right femoral artery. He was started on levo fed during this process and he was also given 1 amp of epinephrine. Currently norepinephrine is running at 0.08 g per KG per minute. His most recent blood pressure is 152/58. His current cardiac rhythm is junctional at the rate of 45 and external transcutaneous pacers was applied. Beaulieu catheter is in place. He is hypothermic and after optimizing his condition, the patient started having some response already started following some simple commands where he would open up his eyes upon demand, move around and breathable mechanical ventilator. Currently is on assist control mode at the rate of 20 to a tidal volume of 50 and FiO2 of 100% and a PEEP of 5. Chest x-ray shows adequate expansion of both lungs. No evidence of any pneumothorax. ET tube is in a good location. Presented was down by around 2 cm. NG tube was in the right mainstem and had to be pulled artery position. The follow-up blood sugar was 150. Cardiology will be made aware of these changes. The blood work from here shows a component of metabolic acidosis with a bicarb level of 11. Post intubation blood gases showed a pH of 7.03 with a pCO2 of 17 and a pO2 of more than 400 and FiO2 of 100%. INR is at 1.4. Creatinine is at 2.1 with a BUN of 64. On today's evaluation of 3 60,020 and seeing the patient for a follow-up. The patient is well sedated, comfortable upper performed which is currently running at 50 g per KG per minute. He remains intubated on a mechanical ventilator. He is on assist control mode of ventilation with tidal volume of 450 and the rate of 22 with an FiO2 of 40% and a PEEP of 5. The morning blood gases showed a pH of 7.46 with a pCO2 of 24 and pO2 of 272. In terms of his cardiac rhythm, the patient remains in the lower rate atrial fibrillation and the low 50s. At times his heart rate goes down to the 40s. He is on norepinephrine infusion which is running at 0.06 g per KG per minute. He has diminished urine output. Creatinine is at 2.1 which is stable and compared to yesterday no major change. Serum bicarbonate 16. IV fluids are running at the rate of 100 and hour of D5 with 3 A of sodium bicarb. His metabolic acidosis improving. Serum bicarb is at 16. No significant bradycardic episodes noted or junctional rhythm overnight. the chest x-ray from today shows adequate expansion of both lungs. ET tube is in a good location. NG tube is in a good location. There is no evidence of any airspace disease or pneumonia on today's chest x-ray. Echocardiogram was also completed yesterday and it showed a left ventricle ejection fraction of 20-25%. The patient has borderline concentric LVH. He has ischemic cardiomyopathy. His pulmonary artery pressures estimated to be around 40. He does have sacral decubitus ulceration, stage II and he has several of them across his buttock. We are putting zinc oxide cream. No signs of infection at this point in time. No fever. Furthermore, the patient was found to have a positive C. diff. He was started on oral vancomycin 250 mg by mouth every 6 hours. His last bout of diarrhea was yesterday. No further bouts of hypoglycemia. Morning blood sugar is 146. He is going to be started on enteral feeding for nutritional support. His evaluation of 10/12/2019 and see the patient for a follow-up. The patient is still intubated on a mechanical ventilator. The vent setting this morning includes an assist-control 14 with a tidal volume of 400 and FiO2 of 40% with a PEEP of 5. Blood gases showed a component of metabolic and respiratory alkalosis. PH was at 7.58 with a pCO2 of 30 and pO2 191. This was done with an FiO2 of 40%. The chest x-ray from today showed adequate positioning of the ET tube. The patient has no evidence of any pulmonary edema or consolidation. He may have some increased pulmonary vessel congestion right more than left. ET tube is in a good location. He has a mitral valve ring. Based on this respiratory alkalosis, discontinue the bicarb infusion I dropped a respiratory rate down to 14 this morning. Earlier aspirate was 22. The patient has no significant orotracheal secretions. He is not febrile. His blood sugars of a well-maintained and he had not had any further episodes of hypoglycemia. I'm in the process of getting this patient a sedation holiday to assess his mental status and assess his candidacy for further weaning. Hemodynamically he is in atrial fibrillation lower right with the lowest heart rate being in the 40s. He is still on norepinephrine infusion running at 0.06 g per KG per minute. Urine output is adequate and the creatinine is also improving and the creatinine is down to 1.53. The rest of the blood work shows that the troponin maxed at 7.9 consistent with acute non-STEMI. Echocardiogram showed improvement in LV function and this is a recent drop in his LV with ejection fraction is down to 20-25%. On 10/13/2019 the patient is widely awake, comfortable without any significant respiratory distress. The patient was weaned off the mechanical ventilator and he was extubated yesterday without any major difficulties. He is currently on room air oxygen. No significant signs of any shortness of breath. He is hemodynamically stable. He is on no pressors. He remains on IV heparin. The plan is to proceed with a cardiac catheterization for further investigation of his underlying cardiac arrhythmia and a drop in his left ventricular ejection fraction which is down to 25%. Currently is in atrial fibrillation and the rate has improved. He is still having occasional bradycardias with heart rate dropped as low as 50. No syncope. No loss of consciousness. No other fever or chills or any other issues. The patient is tolerating his diet. The swallowing evaluation was done at the bedside today in the I will he was able to pass without any major difficulties. On today's evaluation of, the patient remains hemodynamically stable. The patient is not having any significant arrhythmias terms of bradycardia. No syncope. No tachycardia. He remains in atrial fibrillation. He will be undergoing a cardiac catheterization today. His creatinine is down to 1.01. His LV ejection fraction is around 25%. The rest or difficulties. No cough sputum production chest tightness or wheezing. The patient is nothing by mouth for now. No fever. No chills. No other significant events overnight. The patient is on no pressors for now. Is receiving D5 half-normal saline at the rate of 50 mL an hour. The patient is seen today 10/15/2019 in follow-up in the intensive care unit. He is currently awake and alert in no acute distress.he is currently maintaining O2 saturations up to 100% on room air. He's been afebrile. Hemodynamically stable. Remains in atrial fibrillation with a controlled ventricular rate. Blood culture reveals no growth. White count 9.8. Hemoglobin 10.4. Platelet count 62,000. Sodium 135. Potassium 3.7. Creatinine 1.13. Continued on vancomycin. He did undergo cardiac catheterization today that revealed critical disease involving the mid RCA and severe disease involving the mid LAD. Subsequent stenting of the RCA and LAD was performed. Currently he denies any chest pain. No palpitations or lightheadedness. He remains on a heparin drip. Objective - Vital Signs Vital signs: Vital Signs Temp 97.7 F 10/15/19 08:00 Pulse 82 10/15/19 09:00 Resp 13 10/15/19 09:00 BP 104/74 10/15/19 09:00 Pulse Ox 100 10/15/19 09:00 Intake & Output 10/14/19 10/15/19 10/15/19 18:59 06:59 18:59 Intake Total 964.781 550 772.8 Output Total 450 257 130 Balance 514.781 293 642.8 Weight 72.8 kg Intake: IV 750 550 272.8 Dextrose 5%-0.45% NaCl 1, 650 550 150 000 ml @ 50 mls/hr IV . Q20H AJ Rx#:[id number] Intake, IV Titration 214.781 500 Amount Heparin Sod,Pork in 0.45% 214.781 NaCl 25,000 unit In 0.45 % NaCl 1 250ml.bag @ 12 UNITS/KG/HR 7.932 mls/hr IV .Q24H AJ Rx#: [id number] Sodium Chloride 0.9% 500 500 ml 500 ml @ 250 mls/hr IV .Q2H ONE Rx#:[id number] Output: Urine 450 257 130 Other: Voiding Method Indwelling Catheter Indwelling Catheter Indwelling Catheter ABP, PAP, CO, CI - Last Documented Arterial Blood Pressure 142/59 - Exam A very pleasant 64-year-old gentleman who is currently awake and alert currently on room air Head exam was generally normal. There was no scleral icterus or corneal arcus. Mucous membranes were moist. Neck was supple and without jugular venous distension, thyromegaly, or carotid bruits. Carotids were easily palpable bilaterally. There was no adenopathy. The patient has very poor dentition. Multiple decayed teeth. Multiple missing teeth. No significant JVDs. Lungs were clear to auscultation and percussion, and with normal diaphragmatic excursion. No wheezes or rales were noted. Heart sounds are bradycardic, positive S1-S2, overall heart sounds are distant. There is a sternotomy scar over the anterior chest. There are transcutaneous pacemaker leads over the anterior chest. No rubs. No cervical murmurs appreciated. Abdominal exam revealed normal bowel sounds. The abdomen was soft, non-tender, and without masses, organomegaly, or appreciable enlargement of the abdominal aorta. Extremities the patient has an above-knee amputation left lower extremity. Right lower extremity reveals no significant edema. No cyanosis. No clubbing. Pulses are diminished at the present in all 4 extremities. The patient is a triple-lumen catheter/Art line Catheter in his right groin in the right femoral vein and artery. Neurologically, awake and alert and there is no focal neurological deficit - Labs CBC & Chem 7: 10/15/19 04:30 10/15/19 05:46 Labs: Abnormal Lab Results - Last 24 Hours (Table) 10/14/19 10/14/19 10/14/19 Range/Units 16:55 17:10 20:28 RBC (4.30-5.90) m/uL Hgb (13.0-17.5) gm/dL Hct (39.0-53.0) % MCHC (31.0-37.0) g/dL RDW (11.5-15.5) % Plt Count (150-450) k/uL Neutrophils # (1.3-7.7) k/uL Sodium (137-145) mmol/L BUN (9-20) mg/dL POC Glucose (mg/dL) 67 L 60 L 138 H (75-99) mg/dL Calcium (8.4-10.2) mg/dL Urine Protein (Negative) Urine Blood (Negative) Ur Leukocyte Esterase (Negative) Urine RBC (0-5) /hpf Urine WBC (0-5) /hpf Urine Bacteria (None) /hpf 10/15/19 10/15/19 10/15/19 Range/Units 02:00 04:30 05:46 RBC 3.99 L (4.30-5.90) m/uL Hgb 10.4 L (13.0-17.5) gm/dL Hct 35.1 L (39.0-53.0) % MCHC 29.6 L (31.0-37.0) g/dL RDW 17.6 H (11.5-15.5) % Plt Count 62 L (150-450) k/uL Neutrophils # 7.9 H (1.3-7.7) k/uL Sodium 135 L (137-145) mmol/L BUN 22 H (9-20) mg/dL POC Glucose (mg/dL) (75-99) mg/dL Calcium 7.1 L (8.4-10.2) mg/dL Urine Protein 1+ H (Negative) Urine Blood Moderate H (Negative) Ur Leukocyte Esterase Trace H (Negative) Urine RBC 9 H (0-5) /hpf Urine WBC 7 H (0-5) /hpf Urine Bacteria Rare H (None) /hpf 10/15/19 Range/Units 06:59 RBC (4.30-5.90) m/uL Hgb (13.0-17.5) gm/dL Hct (39.0-53.0) % MCHC (31.0-37.0) g/dL RDW (11.5-15.5) % Plt Count (150-450) k/uL Neutrophils # (1.3-7.7) k/uL Sodium (137-145) mmol/L BUN (9-20) mg/dL POC Glucose (mg/dL) 110 H (75-99) mg/dL Calcium (8.4-10.2) mg/dL Urine Protein (Negative) Urine Blood (Negative) Ur Leukocyte Esterase (Negative) Urine RBC (0-5) /hpf Urine WBC (0-5) /hpf Urine Bacteria (None) /hpf Microbiology - Last 24 Hours (Table) 10/10/19 20:26 Blood Culture - Preliminary Blood No Growth after 96 hours Assessment and Plan Assessment: 1 acute unresponsiveness, multifactorial. Recovered and the patient is back to his normal mentation. This was probably related to hypoglycemia and cardiac arrhythmias. The patient has normal mental status for now On 10/15/2019 the patient did undergo cardiac catheterization which revealed severe coronary artery disease in the mid RCA in the mid LAD both of which were stented today. 2 acute hypoglycemia, treated, blood sugars of normalized, currently on D5 half- normal at the rate of 50 mL an hour. Blood sugars are being monitored and he is on sliding scale coverage for now 3 junctional bradycardia with a possibility of tachybradycardia syndrome, awaiting a pacemaker insertion. Currently the patient has a transcutaneous pacemaker which is on standby. His current rate is in lower rate atrial fibrillation. Note that the patient's ejection fraction dropped acutely down to 2024% and this could've occurred in the setting of an acute non-STEMI/coronary artery disease. The patient will need a cardiac catheterization with possible subsequent pacer AICD placement. This will be discussed with cardiology. Current rhythm is atrial fibrillation lower rates. The patient be taken to cardiac catheterization for evaluation of his underlying coronary status. May be a candidate for pacer/defibrillator at a later stage. His LV ejection fraction is around 20-25% 4 hypotension, pressor dependent. Rule out cardiogenic shock, echocardiogram was done and his ejection fraction is around 20-25%, the patient is off pressors and the patient remains off pressors for now 5 coronary artery disease with previous history of or intervention and stenting, acute non-STEMI and a troponin maxed right now is 7.9. on 10/15/2019 he had undergone stenting of both the mid RCA and mid LAD secondary to severe stenosis. 6 CHF with ischemic cardiomyopathy and ejection fraction of 20-25% 7 history of rheumatologic mitral regurg post mitral valve repair and modified Albert-Maze procedure 8 peripheral vascular disease with previous left lower extremity amputation 9 chronic stage III kidney disease with a component of an acute kidney injury. Creatinine is improving is down and it continues to improve is down to 1.3 10 COPD 11 hypothyroidism 12 hypertension 13 carotid artery disease 14 severe mixed anion and non-anion gap metabolic acidosis, recovered and current acid base status is leaning towards metabolic alkalosis. 15 acute respiratory failure secondary to above-mentioned comorbidities and complications. Recovered 16 history of atrial fibrillation 17 chronic anxiety 18 C. diff colitis currently on oral vancomycin, no diarrhea 19 stage II sacral decubitus ulceration/pressure ulcers 20 bedbugs per history 21 thrombocytopenia, cardiology is aware and that is down to 64. The patient is taken off the P IV heparin this morning. Plan: The patient was seen and evaluated by Dr. James. He did undergo cardiac catheterization and subsequent stenting to the mid RCA and LAD. He is currently stable from the pulmonary and critical care standpoint. On room air. We'll continue with the current treatment plan. We will continue to follow. I, the cosigning physician, performed a history & physical examination of the patient. Lungs sounds are clear. Maintaining good O2 saturations in the 90s on room air. I discussed the assessment and plan of care with my nurse practitioner, Pari Burciaga. I attest to the above note as dictated by her.
--- NOTE | 2019-10-15 13:12 | CDI ---
Documentation Clarification Form Date: 10/15/2019 12:32:48 PM From: Ai Mccann RN CCDS Admit Date: 10/10/2019 01:03:00 PM Patient Name: Reddy Maradiaga Visit Number: [id number] Discharge Date: ATTENTION: The Clinical Documentation Specialists (CDI) and [facility] Coding Staff appreciate your assistance in clarifying documentation. Please respond to the clarification below the line at the bottom and electronically sign. The CDI & [facility] Coding staff will review the response and follow-up if needed. Please note: Queries are made part of the Legal Health Record. If you have any questions, please contact the author of this message via ITS. Dr. Jean Stafford Acute Non-STEMI was documented in the H & P 10/10 and in the progress notes by Dr Dong 10/11 and 10/12 History/Risk Factors:64-year-old male presents to [facility] as a transfer from [facility] for Tachybradycarida syndrome. Medical history includes Atrial Fibrillation, CAD, COPD, HTN, CKD III and DM2 Clinical Indicators: Labs 10/09 Troponin 1.370, 10/10 5.260, 10/11 7.960, Lactic acid 10/09 6.6, Cardiology Progress Notes, 10/10, 10/11, 10/12 & 10/13, [id number]-azwigws elevation myocardial infarction 10/14 Cardiac Catheterization LAD was previously stented in its midportion and just past the stent there is a 60% to 70% stenosis noted. Right coronary artery is a large dominant vessel that shows a focal area of 95% stenosis in its midportion. VSS 10/09 131/63 64Hr, 12 RR 98% 2L nasal cannula Treatment: 10/09 Heparin Ivpb, 10/10 Echocardiogram, 10/14 Cardiac Catheterization 10/14 PTCA Please clarify if the Acute Non-STEMI was * Present/active this admission * Treated and resolved this admission * Ruled out * Other, please specify * Clinically unable to determine (Last Query Form Revision: April 2019) Non-STEMI and other cardiac problems were present on admission eg at [facility] ([facility]) [facility]
[2019-10-15 16:50] LABS: Glucose,Whole Blood 108 mg/dL (75-99)
[2019-10-15] MEDS ORDERED: METOPROLOL TARTRATE 25 MG TAB PO STA (19:09)
[2019-10-15] MEDS ORDERED: DILTIAZEM 125 MG in SODIUM CHLORIDE 0.9% 100 ML IV SCH (20:30)
[2019-10-15] MEDS ORDERED: DILTIAZEM DRIP BOLUS FROM BAG 1 MG SOLN IV ONE (20:30)
[2019-10-15 20:39] LABS: Glucose,Whole Blood 118 mg/dL (75-99)
[2019-10-15] MEDS: PANTOPRAZOLE 40 MG TABLET PO SCH (21:10)
[2019-10-16] MEDS: HEPARIN SODIUM,PORCINE 5,000 UNIT/ML 1 ML VIAL SQ SCH ×3 (00:43→20:20)
[2019-10-16] MEDS: CHERRY FLAVOR 60 ML BOTTLE PO SCH ×4 (00:47→19:23)
[2019-10-16] MEDS: VANCOMYCIN ORAL SOLUTION 250 MG/5 ML BOTTLE PO SCH ×4 (00:50→19:23)
[2019-10-16] MEDS: LEVOTHYROXINE 25 MCG TAB PO SCH (06:44)
[2019-10-16] MEDS: HYDROcodone/APAP 10-325MG 1 EACH TAB PO PRN ×2 (06:44→20:20)
[2019-10-16] MEDS: DEXTROSE 5%-0.45% NACL 1,000 ML IV SCH ×2 (06:52→19:23)
--- NOTE | 2019-10-16 07:54 | P.PN ---
Subjective This is a pleasant 64 years old -[place] male, with past medical history of coronary artery disease, atrial fibrillation, COPD, diabetes mellitus, hypertension, hyperlipidemia, hypothyroidism, chronic kidney disease stage III, peripheral artery disease, anxiety/depression, cardiac valve replacement, GERD. He was transferred from [facility] to [facility] in ICU for tachyarrhythmia found to have low ejection fraction of 25%, and his been followed closely by cardiology team and critical care team, he was intubated temporally and currently he is on room air with oxygen saturation of 97-98%, still still tachycardic of 108-124, blood pressure 109/74. Been afebrile. Creatinine elevated initially came back to normal at 1.0 today, sodium 134, not elevated white cell count at 9.9K, hemoglobin 10.4, platelets low at 64K. 10/15/2019 Patient remains in the ICU, he is totally awake and oriented, looks comfortable. Patient yesterday couldn't get his cardiac cath due to procedure problem, cardiology team will try again today with possible pacemaker/AICD placement. His heart rate looks more stable in the 70s and 80s other than a few PVCs and PACs, That he is hemodynamically stable, he denies any chest pain or dyspnea, he complained of some right foot pain and there is minimal ulceration on the toes months does not look infected, his WBC is 9.8K, hemoglobin 10.4, platelets 62, sodium 135, potassium 3.7 and creatinine 1.13. Ejection fraction 25% He remains on D5 half-normal saline at 50 mL per hour and oral vancomycin for possible C. diff colitis, Lopressor 12.5 mg twice daily was added yesterday and patient tolerated that well. Continue with aspirin 325 mg and Protonix 40 mg twice a day 03/17/2020 Patient remains in the ICU currently, he does not complain from chest pain or dyspnea, fully awake and oriented, no abdominal complaints, no nausea vomiting and is tolerating diet. Yesterday he underwent coronary angiogram showing severe two-vessel disease status post stenting of his right coronary artery with 95% stenosis and left anterior descending artery was 60-70%, status post stents by 2 placement. And patient currently is on aspirin and effient. Patient is counseled about the importance of aggressive therapy and he understands and agrees. His course was complicated last night with A. fib and RVR with heart rate 110 up to 156, 1 time dose of metoprolol 25 mg did not control the related and patient had to be restarted on Cardizem drip at 5 mg currently per cardiology's recommendation, his heart rate is better controlled currently, his heart rate is better controlled this morning at the rate of 69-82. Sugar controlled, creatinine 1.1, sodium 135 he remains on Protonix 40 mg twice a day, oral vancomycin, metoprolol 25 mg twice a day, lisinopril 2.5 g daily and Lasix 20 mg orally twice a day with one 10 dose of 40 mg daily. Review of systems CONSTITUTIONAL: No fever, no malaise, no fatigue. HEENT: No recent visual problems or hearing problems. Denied any sore throat. CARDIOVASCULAR: No orthopnea, PND, no palpitations, no syncope. PULMONARY: No shortness of breath, no cough, no hemoptysis. GASTROINTESTINAL: No diarrhea, no nausea, no vomiting, no abdominal pain. Normoactive bowel sounds. NEUROLOGICAL: No headaches, no weakness, no numbness. HEMATOLOGICAL: Denies any bleeding or petechiae. GENITOURINARY: Denies any burning micturition, frequency, or urgency. MUSCULOSKELETAL/RHEUMATOLOGICAL: Denies any joint pain, swelling, or any muscle pain. ENDOCRINE: Denies any polyuria or polydipsia. Active Medications Generic Name Dose Route Start Last Admin Trade Name Freq PRN Reason Stop Dose Admin Hydrocodone Bitart/Acetaminophen 1 each 10/10/19 13:28 10/16/19 06:44 [place] 10 PO 1 each Q6H PRN Administration Pain Al Hydroxide/Mg Hydroxide 30 ml 10/15/19 11:28 Maalox PO Q4HR PRN Heartburn Alprazolam 0.25 mg 10/13/19 09:54 Xanax PO Q6HR PRN Mild Anxiety Alprazolam 0.5 mg 10/13/19 09:54 10/15/19 21:29 Xanax PO 0.5 mg Q6HR PRN Administration Moderate Anxiety Aspirin 81 mg 10/11/19 09:00 10/15/19 04:59 Aspirin PO Not Given DAILY [facility] Atorvastatin Calcium 40 mg 10/11/19 09:00 10/15/19 08:44 Lipitor PO Not Given DAILY AJ Atropine Sulfate 0.5 mg 10/15/19 11:28 Atropine IV ONCE PRN Symptomatic Bradycardia Melendez Syrup 5 ml 10/11/19 06:00 10/16/19 06:50 Melendez Syrup PO 5 ml Q6H AJ Administration Fluoxetine HCl 20 mg 10/11/19 09:00 10/15/19 08:44 Prozac PO Not Given DAILY [facility] Furosemide 40 mg 10/16/19 09:00 Lasix IV 10/16/19 10:00 DAILY [facility] Furosemide 20 mg 10/16/19 16:00 Lasix PO BID@0900,1600 [facility] Heparin Sodium (Porcine) 5,000 unit 10/15/19 21:00 10/16/19 00:43 Heparin SQ Not Given Q12HR [facility] Dopamine HCl/Dextrose 800 mg/ 250 mls @ 1.275 mls/hr 10/10/19 22:00 10/15/19 22:14 IV Solution IV Not Given .Q24H [facility] Protocol 1 MCG/KG/MIN Dextrose/Sodium Chloride 1,000 mls @ 50 mls/hr 10/12/19 13:45 10/16/19 06:52 Dextrose 5%-1/2ns Iv Soln IV 50 mls/hr .Q20H AJ Administration Levothyroxine Sodium 25 mcg 10/11/19 06:30 10/16/19 06:44 Synthroid PO 25 mcg DAILY@0630 [facility] Administration Lisinopril 2.5 mg 10/16/19 09:00 Zestril PO DAILY [facility] Metoprolol Tartrate 25 mg 10/16/19 09:00 Lopressor PO BID [facility] Miscellaneous Information 1 each 10/13/19 06:35 Potassium Per Protocol MISCELLANE DAILY PRN Per Protocol Protocol Miscellaneous Information 1 each 10/15/19 11:28 Rx Info: Iv Contrast Was Given MISCELLANE 10/17/19 11:28 DAILY PRN Per Protocol Naloxone HCl 0.2 mg 10/10/19 18:59 Narcan IV Q2M PRN Opioid Reversal Nitroglycerin 0.4 mg 10/15/19 11:28 Nitrostat SUBLINGUAL Q5M PRN Chest Pain Ondansetron HCl 4 mg 10/10/19 13:28 10/15/19 18:42 Zofran IVP 4 mg Q6HR PRN Administration Nausea And Vomiting Pantoprazole Sodium 40 mg 10/15/19 21:00 10/15/19 21:10 Protonix PO 40 mg BID AJ Administration Prasugrel 10 mg 10/16/19 09:00 Effient PO DAILY [facility] Tamsulosin HCl 0.4 mg 10/11/19 08:30 10/15/19 08:42 Flomax PO Not Given PC-BRKFST AJ Vancomycin HCl 250 mg 10/11/19 06:00 10/16/19 06:52 Vancomycin Oral Solution PO 250 mg Q6HR AJ Administration Zolpidem Tartrate 5 mg 10/15/19 11:28 Ambien PO HS PRN Insomnia Objective - Vital Signs Vital signs: Vital Signs Temp 97.8 F 10/16/19 04:00 Pulse 69 10/16/19 07:00 Resp 20 10/16/19 07:00 BP 127/85 10/16/19 07:00 Pulse Ox 98 10/16/19 07:00 Intake & Output 10/15/19 10/16/19 10/16/19 18:59 06:59 18:59 Intake Total 1122.8 825 75 Output Total 370 430 40 Balance 752.8 395 35 Weight 74.2 kg Intake: IV 622.8 825 75 Dextrose 5%-0.45% NaCl 1, 500 825 75 000 ml @ 50 mls/hr IV . Q20H [facility] Rx#:[id number] Intake, IV Titration 500 Amount Sodium Chloride 0.9% 500 500 ml 500 ml @ 250 mls/hr IV .Q2H [facility] Rx#:[id number] Output: Urine 370 430 40 Other: Voiding Method Indwelling Catheter Indwelling Catheter ABP, PAP, CO, CI - Last Documented Arterial Blood Pressure 176/58 - Exam GENERAL: The patient is alert and oriented x3, not in any acute distress. Well developed, well nourished. HEENT: Pupils are round and equally reacting to light. EOMI. No scleral icterus. No conjunctival pallor. Normocephalic, atraumatic. No pharyngeal erythema. No thyromegaly. CARDIOVASCULAR: S1 and S2 present. No murmurs, rubs, or gallops. PULMONARY: Chest is clear to auscultation, no wheezing or crackles. -ABDOMEN: Soft, nontender, nondistended, normoactive bowel sounds. No palpable organomegaly. Beaulieu catheter is in place MUSCULOSKELETAL: No joint swelling or deformity. EXTREMITIES: No cyanosis, clubbing, or pedal edema. NEUROLOGICAL: Gross neurological examination did not reveal any focal deficits. SKIN: No rashes. no petechiae. - Labs CBC & Chem 7: 10/15/19 04:30 10/15/19 05:46 Labs: Abnormal Lab Results - Last 24 Hours (Table) 10/15/19 10/15/19 Range/Units 16:48 20:37 POC Glucose (mg/dL) 108 H 118 H (75-99) mg/dL Microbiology - Last 24 Hours (Table) 10/10/19 20:26 Blood Culture - Preliminary Blood No Growth after 120 hours Assessment and Plan Assessment: Tachycardia and bradycardia syndrome , with A. fib and RVR, Severe coronary artery disease with stent placement in RCA and LAD on 10/14 Acute systolic heart failure with ejection fraction 25% Chronic kidney disease stage III C. diff colitis Atrial fibrillation Diabetes mellitus Hypertension Hyperlipidemia Hypothyroidism History of upper peripheral artery disease Inset/depression, not in active issue History of cardiac valve replacement GERD Plan: This is a pleasant 64 years old male who presents with her diabetic arrhythmia and tachycardia/bradycardia and low ejection fraction 35%. Patient was told was a pack cardiology and intensive care unit team. Continue with Cardizem for rate control, continue with Protonix and oral vancomycin, continue with aspirin and if patient, monitor platelet count Labs and medication were reviewed.. Continue same treatment. Continue with symptomatic treatment. Resume home medication. Monitor lytes and vitals. DVT and GI prophylaxis. Further recommendations of the clinical course of the patient DVT prophylaxis: heparin GI Prophylaxis: Ppi Prognosis is guarded
[2019-10-16] MEDS ORDERED: PRASUGREL 10 MG TAB PO SCH (09:00)
[2019-10-16] MEDS ORDERED: FUROSEMIDE 10 MG/ML 4 ML VIAL IV SCH (09:00)
[2019-10-16 09:07] LABS: Anisocytosis Slight; Basophils % (A) 0 %; Eosinophils # (A) 0.1 k/uL (0-0.7); Eosinophils % (A) 1 %; HCT 33.3 % (39.0-53.0); HGB 9.9 gm/dL (13.0-17.5); Hypochromasia Marked; Lymphocytes # (A) 1.4 k/uL (1.0-4.8); Lymphocytes % (A) 13 %; MCHC 29.6 g/dL (31.0-37.0); MCV 87.6 fL (80.0-100.0); Mean Platelet Volume 11.9; Monocytes # (A) 0.3 k/uL (0-1.0); Monocytes % (A) 3 %; Neutrophils # (A) 8.7 k/uL (1.3-7.7); Neutrophils % (A) 82 %; RDW 17.2 % (11.5-15.5); WBC 10.7 k/uL (3.8-10.6)
[2019-10-16 09:13] LABS: Albumin 2.1 g/dL (3.5-5.0); Calcium 7.1 mg/dL (8.4-10.2); Potassium 3.5 mmol/L (3.5-5.1); Total Bilirubin 0.9 mg/dL (0.2-1.3); Total Protein 4.8 g/dL (6.3-8.2)
[2019-10-16 09:15] LABS: Platelet Count 115 k/uL (150-450)
[2019-10-16] MEDS: ASPIRIN 81 MG PO SCH (09:17)
[2019-10-16] MEDS: FLUoxetine HCL 20 MG CAP PO SCH (09:17)
[2019-10-16] MEDS: METOPROLOL TARTRATE 25 MG TAB PO SCH ×2 (09:18→20:19)
[2019-10-16] MEDS: PANTOPRAZOLE 40 MG TABLET PO SCH ×2 (09:18→20:19)
[2019-10-16] MEDS: ATORVASTATIN 40 MG TAB PO SCH (09:18)
[2019-10-16 09:31] LABS: Glucose,Whole Blood 123 mg/dL (75-99)
--- NOTE | 2019-10-16 09:33 | P.CONS ---
History of Present Illness - Reason for Consult Consult date: 10/16/19 Wound care - History of Present Illness This is a 67-year-old pleasant -Pakistani male being seen by the wound care center in ICU for nonhealing ulcerations to the sacrum. Patient states that the areas have been there for the last 3 weeks. He does not use any products prior to hospitalization. Patient has ulceration to the left gluteus that is unstageable pressure ulcer, right gluteus stage II pressure ulcer, mi dline coccyx Limited to skin breakdown maceration. Patient has been diagnosed with C. diff. 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 Patient is a One-A-Day pack smoker since 1977. Review of Systems Review Of Systems: Constitutional: No fever, no chills, no night sweats. No weight change. No weakness, fatigue or lethargy. No daytime sleepiness. Integumentary:reports wounds, no lesions. No rash or pruritus. No unusual bruising. No change in hair or nails. Past Medical History Past Medical History: Atrial Fibrillation, Coronary Artery Disease (CAD), COPD, Diabetes Mellitus, GERD/Reflux, Hyperlipidemia, Hypertension, Myocardial Infarction ([place]), Thyroid Disorder, Vascular Disorder Additional Past Medical History / Comment(s): Other Hx: Chronic kidney disease stage III, hypothyroid, PAD, diverticular dx, past ETOH abuse. Anxiety/Depression Last Myocardial Infarction Date:: 09/2011 History of Any Multi-Drug Resistant Organisms: None Reported Past Surgical History: Cardiac Valve Replacement, Heart Catheterization With Stent Additional Past Surgical History / Comment(s): Mitral Valve replacement, Left above the knee amputation, Femoral-Popliteal Bypass. Endarterectomy Past Anesthesia/Blood Transfusion Reactions: No Reported Reaction Date of Last Stent Placement:: 09/2011 Past Psychological History: Anxiety, Depression Additional Psychological History / Comment(s): Pt resides alone. He uses a cane to ambulate and has a L foot medi shoe. He does not drive. He gets to appts with his cousin. Infestation of bed bugs noted at patients apartment. Smoking Status: Current every day smoker Past Alcohol Use History: Occasional Additional Past Alcohol Use History / Comment(s): Pt started smoking in 1977 and is a ppd smoker. He states he drinks less than 14 drinks per week but used to drink heavier. Past Drug Use History: Marijuana - Past Family History Mother Family Medical History: Diabetes Mellitus, Deep Vein Thrombosis (DVT) Medications and Allergies Home Medications Medication Instructions Recorded Confirmed Type FLUoxetine HCL [PROzac] 20 mg PO DAILY 03/26/15 10/10/19 History Levothyroxine Sodium [Synthroid] 25 mcg PO DAILY 03/26/15 10/10/19 History Acetaminophen Tab [Tylenol] 650 mg PO Q6HR PRN tab 10/04/17 10/10/19 Rx Ipratropium-Albuterol Nebulize 3 ml INHALATION RT-QID ampul.neb 10/04/17 10/10/19 Rx [Duoneb 0.5 mg-3 mg/3 ml Soln] Allopurinol [Zyloprim] 100 mg PO DAILY 10/10/19 10/10/19 History Clopidogrel [Plavix] 75 mg PO DAILY 10/10/19 10/10/19 History HYDROcodone/APAP 10-325MG [[place] 1 tab PO QID PRN 10/10/19 10/10/19 History 10-325] Lisinopril [Zestril] 2.5 mg PO DAILY 10/10/19 10/10/19 History Metoprolol Tartrate [Lopressor] 50 mg PO BID 10/10/19 10/10/19 History Allergies Allergy/AdvReac Type Severity Reaction Status Date / Time No Known Allergies Allergy Verified 10/10/19 14:02 Physical Exam Vitals: Vital Signs Temp Pulse Resp BP Pulse Ox 10/16/19 09:00 63 14 108/73 94 L 10/16/19 08:00 97.8 F 67 20 140/95 93 L 10/16/19 07:00 69 20 127/85 98 10/16/19 06:00 82 17 105/76 96 10/16/19 05:00 76 20 139/84 97 10/16/19 04:00 97.8 F 74 14 119/76 97 10/16/19 03:00 73 26 H 106/88 82 L 10/16/19 02:00 146 H 20 136/89 94 L 10/16/19 01:00 141 H 21 115/94 100 10/16/19 00:00 163 H 24 124/76 100 10/15/19 23:00 137 H 23 114/94 83 L 10/15/19 22:00 134 H 22 111/55 100 10/15/19 21:00 135 H 18 147/101 95 10/15/19 20:00 135 H 18 115/96 100 10/15/19 19:00 147 H 17 133/90 99 10/15/19 17:00 87 19 148/83 90 L 10/15/19 16:00 73 18 142/80 97 10/15/19 15:00 77 23 136/87 97 10/15/19 14:00 64 20 113/83 97 10/15/19 13:00 66 0 L 99 10/15/19 12:00 98.1 F 62 14 118/69 91 L Intake and Output 10/15/19 10/16/19 10/16/19 22:59 06:59 14:59 Intake Total 475 600 375 Output Total 355 315 100 Balance 120 285 275 Intake: IV 475 600 175 Dextrose 5%-0.45% NaCl 1, 475 600 175 000 ml @ 50 mls/hr IV . Q20H [facility] Rx#:[id number] Oral 200 Output: Urine 355 315 100 Other: Voiding Method Indwelling Catheter Indwelling Catheter Weight 74.2 kg Physical exam: General Appearance: Alert, cooperative, no distress, appears stated age. Skin: Left gluteus unstageable pressure ulcer area has significant Slough, fibrin, eschar, right gluteus pressure ulcer stage II with significant Slough noted within the wound bed. No granulation seen. Midline coccyx ulceration Limited to skin breakdown granulation noted within wound bed maceration to periwound all other Skin color, texture, tugor decreased, no rashes or lesions. Neurologic: Alert oriented x3 Results CBC & Chem 7: 10/16/19 08:30 10/16/19 08:30 Labs: Abnormal Lab Results - Last 24 Hours (Table) 10/15/19 10/15/19 10/16/19 Range/Units 16:48 20:37 08:30 WBC (3.8-10.6) k/uL RBC (4.30-5.90) m/uL Hgb (13.0-17.5) gm/dL Hct (39.0-53.0) % MCHC (31.0-37.0) g/dL RDW (11.5-15.5) % Sodium 134 L (137-145) mmol/L BUN 21 H (9-20) mg/dL Glucose 149 H (74-99) mg/dL POC Glucose (mg/dL) 108 H 118 H (75-99) mg/dL Calcium 7.1 L (8.4-10.2) mg/dL AST 100 H (17-59) U/L ALT 71 H (4-49) U/L Total Protein 4.8 L (6.3-8.2) g/dL Albumin 2.1 L (3.5-5.0) g/dL 10/16/19 Range/Units 08:30 WBC 10.7 H (3.8-10.6) k/uL RBC 3.80 L (4.30-5.90) m/uL Hgb 9.9 L (13.0-17.5) gm/dL Hct 33.3 L (39.0-53.0) % MCHC 29.6 L (31.0-37.0) g/dL RDW 17.2 H (11.5-15.5) % Sodium (137-145) mmol/L BUN (9-20) mg/dL Glucose (74-99) mg/dL POC Glucose (mg/dL) (75-99) mg/dL Calcium (8.4-10.2) mg/dL AST (17-59) U/L ALT (4-49) U/L Total Protein (6.3-8.2) g/dL Albumin (3.5-5.0) g/dL Microbiology - Last 24 Hours (Table) 10/10/19 20:26 Blood Culture - Preliminary Blood No Growth after 120 hours Assessment and Plan (1) Pressure ulcer of left buttock, unstageable Current Visit: Yes Status: Acute Code(s): L89.320 - PRESSURE ULCER OF LEFT BUTTOCK, UNSTAGEABLE SNOMED Code(s): 276331170 (2) Pressure ulcer of right buttock, stage 2 Current Visit: Yes Status: Acute Code(s): L89.312 - PRESSURE ULCER OF RIGHT BUTTOCK, STAGE 2 SNOMED Code(s): 806595468 (3) Pressure ulcer of coccygeal region, stage 2 Current Visit: Yes Status: Acute Code(s): L89.152 - PRESSURE ULCER OF SACRAL REGION, STAGE 2 SNOMED Code(s): 486937452 (4) Type 2 diabetes mellitus with other skin ulcer Current Visit: Yes Status: Acute Code(s): E11.622 - TYPE 2 DIABETES MELLITUS WITH OTHER SKIN ULCER; L98.499 - NON-PRESSURE CHRONIC ULCER OF SKIN OF SITES W UNSP SEVERITY SNOMED Code(s): 913716525 Plan: Midline sacrum ulceration apply triad daily. Left and right gluteus ulcerations apply honey alginate, saline moistened gauze and foam border dressing. Change gluteus ulceration dressings Monday. Continue to increase protein. Turn every 2 hours. Evaluate surface algorithms for appropriate surfaces. When sitting in the chair utilize waffle cushion. Discussed with patient that outpatient wound care may be required to heel ulcerations. Patient verbalized understanding. Thank you kindly for the consultation. Any questions please contact the wound care center DNP note has been reviewed and discussed with Dr. Doan and the impression and plan of care has been directed as dictated.
[2019-10-16 09:41] LABS: Crenated RBC Present; Large Platelets Present; Poikilocytosis (M) Present; Target Cells Present
--- NOTE | 2019-10-16 10:05 | PN ---
PROGRESS NOTE Mr. Maradiaga is a 64-year-old male with a known history of coronary artery disease, status post mitral valve repair, who presented with arrhythmia and evidence of worsening cardiomyopathy. He underwent cardiac catheterization yesterday and was found to have critical stenosis involving the mid right coronary artery as well as the left anterior descending artery distal to his old stent. He underwent stenting of both vessels by Dr. Gordon. He is doing well this morning. He has had episode of atrial fibrillation with rapid ventricular response. He denies any chest pain. His breathing has been stable. He denies any dizziness or palpitation. He denies any nausea. He was started on IV Cardizem yesterday. Otherwise, he is on aspirin once a day, Lipitor 40 mg daily. He is on IV Cardizem. He is on hydralazine 25 mg twice a day, metoprolol tartrate 12.5 mg twice a day. PHYSICAL EXAMINATION: Blood pressure running in the 120s with a heart rate in the 60s and 70s. LUNGS: With few crackles at the bases. HEART: S1, S2. No S3 with a systolic murmur. No diastolic murmur. ABDOMEN: Soft, nontender. EXTREMITIES: +1 edema on the right side. The right groin, no hematoma. Venous sheath noted. Left lower extremity status post amputation. LAB DATA: Lab data from yesterday, BUN and creatinine 22 and 1.13. IMPRESSION: 1. Status post percutaneous revascularization of the left anterior descending artery and the right coronary artery. 2. Cardiomyopathy, worsened. 3. Status post mitral valve repair. 4. Atrial fibrillation with episode of tachyarrhythmia. 5. Status post amputation. RECOMMENDATION: The patient will receive another dose of IV Lasix today. I will stop the IV Cardizem. I will increase the dose of his beta skylar. We will continue the rest of his medical regimen. We will follow his blood pressure and I will add a low dose of NATHAN inhibitor because of his cardiomyopathy. Will obtain physical therapy, increase his activity and depending on his progress, further recommendation will be made. MMODL / IJN: [id number] /
--- NOTE | 2019-10-16 10:25 | P.PN ---
Subjective Progress Note Date: 10/16/19 This is a 64-year-old male patient who got transferred from [facility] because of tachybradycardia syndrome and ongoing cardiac arrhythmias and for that reason the patient got transferred to [facility] for cardiac evaluation and possible pacemaker insertion. The patient presented there in a poor health and living condition. He was having difficulties in taking care of himself because of an amputated left lower extremity above the knee. According to the hospital staff, the patient has been very weak and he was found to be at home covered with feces and possible bedbugs. He was brought into [facility] where he was found to be tachycardic and irregular rhythm possible atrial fibrillation. He was given a liter of IV fluids and he was placed on Cardizem drip and amiodarone drip and subsequently his heart rate dropped in the low 30s with junctional rhythm. The patient was also found to have elevated troponin and was a concern for an acute non-STEMI. 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 He is also known to have mild to moderate impairment of the LV with an ejection fraction depressed in the order of 40%, history of peripheral vascular disease, above- knee amputation left lower extremity, COPD, moderate to severe right internal carotid artery stenosis, chronic atrial fibrillation, stage III kidney disease, smoker, depression, hypertension, coronary artery disease with previous coronary stent placement, hypothyroidism, and acid reflux. The patient also has history of chronic anemia of an iron deficiency type. After he came in to our intensive care unit, the patient had an acute episode where he became unresponsive. A code stroke was called. Immediately a blood sugar was checked and the blood sugar was 35. The patient was given D50. She remained unresponsive. He be became more bradycardic with heart rate dropped down to the low 30s in a junctional rhythm. His blood pressure was undetectable although he had a very thready pulse. The pulses were weak mainly obtained in the right femoral area. She became agonal breathing. He became completely unresponsive. A code was called. I attended disclose. The patient was immediately intubated. I was able to successfully intubate the patient by #8 orotracheal tube. Subsequently I was able to insert a triple lumen catheter in his right femoral vein and it off and catheter in his right femoral artery. He was started on levo fed during this process and he was also given 1 amp of epinephrine. Currently norepinephrine is running at 0.08 g per KG per minute. His most recent blood pressure is 152/58. His current cardiac rhythm is junctional at the rate of 45 and external transcutaneous pacers was applied. Beaulieu catheter is in place. He is hypothermic and after optimizing his condition, the patient started having some response already started following some simple commands where he would open up his eyes upon demand, move around and breathable mechanical ventilator. Currently is on assist control mode at the rate of 20 to a tidal volume of 50 and FiO2 of 100% and a PEEP of 5. Chest x-ray shows adequate expansion of both lungs. No evidence of any pneumothorax. ET tube is in a good location. Presented was down by around 2 cm. NG tube was in the right mainstem and had to be pulled artery position. The follow-up blood sugar was 150. Cardiology will be made aware of these changes. The blood work from here shows a component of metabolic acidosis with a bicarb level of 11. Post intubation blood gases showed a pH of 7.03 with a pCO2 of 17 and a pO2 of more than 400 and FiO2 of 100%. INR is at 1.4. Creatinine is at 2.1 with a BUN of 64. On today's evaluation of 3 60,020 and seeing the patient for a follow-up. The patient is well sedated, comfortable upper performed which is currently running at 50 g per KG per minute. He remains intubated on a mechanical ventilator. He is on assist control mode of ventilation with tidal volume of 450 and the rate of 22 with an FiO2 of 40% and a PEEP of 5. The morning blood gases showed a pH of 7.46 with a pCO2 of 24 and pO2 of 272. In terms of his cardiac rhythm, the patient remains in the lower rate atrial fibrillation and the low 50s. At times his heart rate goes down to the 40s. He is on norepinephrine infusion which is running at 0.06 g per KG per minute. He has diminished urine output. Creatinine is at 2.1 which is stable and compared to yesterday no major change. Serum bicarbonate 16. IV fluids are running at the rate of 100 and hour of D5 with 3 A of sodium bicarb. His metabolic acidosis improving. Serum bicarb is at 16. No significant bradycardic episodes noted or junctional rhythm overnight. the chest x-ray from today shows adequate expansion of both lungs. ET tube is in a good location. NG tube is in a good location. There is no evidence of any airspace disease or pneumonia on today's chest x-ray. Echocardiogram was also completed yesterday and it showed a left ventricle ejection fraction of 20-25%. The patient has borderline concentric LVH. He has ischemic cardiomyopathy. His pulmonary artery pressures estimated to be around 40. He does have sacral decubitus ulceration, stage II and he has several of them across his buttock. We are putting zinc oxide cream. No signs of infection at this point in time. No fever. Furthermore, the patient was found to have a positive C. diff. He was started on oral vancomycin 250 mg by mouth every 6 hours. His last bout of diarrhea was yesterday. No further bouts of hy poglycemia. Morning blood sugar is 146. He is going to be started on enteral feeding for nutritional support. His evaluation of 10/12/2019 and see the patient for a follow-up. The patient is still intubated on a mechanical ventilator. The vent setting this morning includes an assist-control 14 with a tidal volume of 400 and FiO2 of 40% with a PEEP of 5. Blood gases showed a component of metabolic and respiratory alkalosis. PH was at 7.58 with a pCO2 of 30 and pO2 191. This was done with an FiO2 of 40%. The chest x-ray from today showed adequate positioning of the ET tube. The patient has no evidence of any pulmonary edema or consolidation. He may have some increased pulmonary vessel congestion right more than left. ET tube is in a good location. He has a mitral valve ring. Based on this respiratory alkalosis, discontinue the bicarb infusion I dropped a respiratory rate down to 14 this morning. Earlier aspirate was 22. The patient has no significant orotracheal secretions. He is not febrile. His blood sugars of a well-maintained and he had not had any further episodes of hypoglycemia. I'm in the process of getting this patient a sedation holiday to assess his mental status and assess his candidacy for further weaning. Hemodynamically he is in atrial fibrillation lower right with the lowest heart rate being in the 40s. He is still on norepinephrine infusion running at 0.06 g per KG per minute. Urine output is adequate and the creatinine is also improving and the creatinine is down to 1.53. The rest of the blood work shows that the troponin maxed at 7.9 consistent with acute non-STEMI. Echocardiogram showed improvement in LV function and this is a recent drop in his LV with ejection fraction is down to 20-25%. On 10/13/2019 the patient is widely awake, comfortable without any significant respiratory distress. The patient was weaned off the mechanical ventilator and he was extubated yesterday without any major difficulties. He is currently on room air oxygen. No significant signs of any shortness of breath. He is hemodynamically stable. He is on no pressors. He remains on IV heparin. The plan is to proceed with a cardiac catheterization for further investigation of his underlying cardiac arrhythmia and a drop in his left ventricular ejection fraction which is down to 25%. Currently is in atrial fibrillation and the rate has improved. He is still having occasional bradycardias with heart rate dropped as low as 50. No syncope. No loss of consciousness. No other fever or chills or any other issues. The patient is tolerating his diet. The swallowing evaluation was done at the bedside today in the I will he was able to pass without any major difficulties. On today's evaluation of, the patient remains hemodynamically stable. The patient is not having any significant arrhythmias terms of bradycardia. No syncope. No tachycardia. He remains in atrial fibrillation. He will be undergoing a cardiac catheterization today. His creatinine is down to 1.01. His LV ejection fraction is around 25%. The rest or difficulties. No cough sputum production chest tightness or wheezing. The patient is nothing by mouth for now. No fever. No chills. No other significant events overnight. The patient is on no pressors for now. Is receiving D5 half-normal saline at the rate of 50 mL an hour. The patient is seen today 10/15/2019 in follow-up in the intensive care unit. He is currently awake and alert in no acute distress.he is currently maintaining O2 saturations up to 100% on room air. He's been afebrile. Hemodynamically stable. Remains in atrial fibrillation with a controlled ventricular rate. Blood culture reveals no growth. White count 9.8. Hemoglobin 10.4. Platelet count 62,000. Sodium 135. Potassium 3.7. Creatinine 1.13. Continued on vancomycin. He did undergo cardiac catheterization today that revealed critical disease involving the mid RCA and severe disease involving the mid LAD. Subsequent stenting of the RCA and LAD was performed. Currently he denies any chest pain. No palpitations or lightheadedness. He remains on a heparin drip. On 10/16/2019 and seeing the patient for a follow-up. The patient is awake and alert. He is on room air oxygen. As stated earlier, the patient underwent cardiac catheterization and stenting of the RCA and LAD. He is currently on a combination of aspirin and Effient. Doing well. No specific complaints. After arriving to the ICU yesterday, the patient went into A. fib RVR. Cardiology was consulted. They start the patient on Cardizem drip and this morning he is off the Cardizem drip. He is a on metoprolol 25 mg by mouth twice a day and he is also on on no pressors. He is still on a combination of aspirin and Effient. We'll discuss need for long-term and coagulation with cardiology as the patient is still in atrial fibrillation. He does have some crackles in his lungs. He was given Lasix by cardiology. Currently is taking Lasix 20 mg by mouth twice a day. He is on no pressors for now. No fever. No chills. Artline was taken out. He still has a triple-lumen catheter in his right femoral vein. No fever. No chills. No altered mentation. He is tolerating diet. No hypoglycemia. Objective - Vital Signs Vital signs: Vital Signs Temp 97.8 F 10/16/19 08:00 Pulse 74 10/16/19 10:00 Resp 15 10/16/19 10:00 BP 120/78 10/16/19 10:00 Pulse Ox 92 L 10/16/19 10:00 Intake & Output 10/15/19 10/16/19 10/16/19 18:59 06:59 18:59 Intake Total 1122.8 825 425 Output Total 370 430 200 Balance 752.8 395 225 Weight 74.2 kg 74.2 kg Intake: IV 622.8 825 225 Dextrose 5%-0.45% NaCl 1, 500 825 225 000 ml @ 50 mls/hr IV . Q20H [facility] Rx#:[id number] Intake, IV Titration 500 Amount Sodium Chloride 0.9% 500 500 ml 500 ml @ 250 mls/hr IV .Q2H ONE Rx#:[id number] Oral 200 Output: Urine 370 430 200 Other: Voiding Method Indwelling Catheter Indwelling Catheter Indwelling Catheter ABP, PAP, CO, CI - Last Documented Arterial Blood Pressure 176/58 - Exam The patient is currently awake and alert and extubated currently on room air Head exam was generally normal. There was no scleral icterus or corneal arcus. Mucous membranes were moist. Neck was supple and without jugular venous distension, thyromegaly, or carotid bruits. Carotids were easily palpable bilaterally. There was no adenopathy. The patient has very poor dentition. Multiple decayed teeth. Multiple missing teeth. No significant JVDs. Lungs were clear to auscultation and percussion, and with normal diaphragmatic excursion. No wheezes or rales were noted. Heart sounds are irregular and abnormal consistent with atrial fibrillation and he has a positive S1-S2, overall heart sounds are distant. There is a sternotomy scar over the anterior chest. There are transcutaneous pacemaker leads over the anterior chest. No rubs. No cervical murmurs appreciated. Abdominal exam revealed normal bowel sounds. The abdomen was soft, non-tender, and without masses, organomegaly, or appreciable enlargement of the abdominal aorta. Extremities the patient has an above-knee amputation left lower extremity. Right lower extremity reveals no significant edema. No cyanosis. No clubbing. Pulses are diminished at the present in all 4 extremities. The patient is a triple-lumen catheter/Art line Catheter in his right groin in the right femoral vein and artery. Neurologically, awake and alert and there is no focal neurological deficit - Labs CBC & Chem 7: 10/16/19 08:30 10/16/19 08:30 Labs: Abnormal Lab Results - Last 24 Hours (Table) 10/15/19 10/15/19 10/16/19 Range/Units 16:48 20:37 08:30 WBC (3.8-10.6) k/uL RBC (4.30-5.90) m/uL Hgb (13.0-17.5) gm/dL Hct (39.0-53.0) % MCHC (31.0-37.0) g/dL RDW (11.5-15.5) % Plt Count (150-450) k/uL Neutrophils # (1.3-7.7) k/uL Sodium 134 L (137-145) mmol/L BUN 21 H (9-20) mg/dL Glucose 149 H (74-99) mg/dL POC Glucose (mg/dL) 108 H 118 H (75-99) mg/dL Calcium 7.1 L (8.4-10.2) mg/dL AST 100 H (17-59) U/L ALT 71 H (4-49) U/L Total Protein 4.8 L (6.3-8.2) g/dL Albumin 2.1 L (3.5-5.0) g/dL 10/16/19 10/16/19 Range/Units 08:30 09:30 WBC 10.7 H (3.8-10.6) k/uL RBC 3.80 L (4.30-5.90) m/uL Hgb 9.9 L (13.0-17.5) gm/dL Hct 33.3 L (39.0-53.0) % MCHC 29.6 L (31.0-37.0) g/dL RDW 17.2 H (11.5-15.5) % Plt Count 115 L D (150-450) k/uL Neutrophils # 8.7 H (1.3-7.7) k/uL Sodium (137-145) mmol/L BUN (9-20) mg/dL Glucose (74-99) mg/dL POC Glucose (mg/dL) 123 H (75-99) mg/dL Calcium (8.4-10.2) mg/dL AST (17-59) U/L ALT (4-49) U/L Total Protein (6.3-8.2) g/dL Albumin (3.5-5.0) g/dL Microbiology - Last 24 Hours (Table) 10/10/19 20:26 Blood Culture - Preliminary Blood No Growth after 120 hours Assessment and Plan Plan: 1 acute unresponsiveness, multifactorial. Recovered and the patient is back to his normal mentation. This was probably related to hypoglycemia and cardiac arrhythmias. The patient has normal mental status for now 2 acute hypoglycemia, treated, and recovered 3 coronary artery disease with presentation with junctional bradycardia . His LV ejection fraction is around 20-25%. The patient was found to have ischemic cardiomyopathy and the patient had cardiac catheterization and stenting of the LAD and RCA. His cardiac rhythm is into atrial fibrillation for now. He did have RVR yesterday and currently is off the Cardizem drip 4 hypotension, recovered 5 coronary artery disease with previous history of or intervention and stenting, acute non-STEMI and a troponin maxed right now is 7.9 and the patient underwent a cardiac catheterization and stenting of RCA and LAD 6 CHF with ischemic cardiomyopathy and ejection fraction of 20-25% 7 history of rheumatologic mitral regurg post mitral valve repair and modified Albert-Maze procedure 8 peripheral vascular disease with previous left lower extremity amputation 9 chronic stage III kidney disease with a component of an acute kidney injury. Creatinine is improving is down and it continues to improve is down to 1.19 10 COPD 11 hypothyroidism 12 hypertension 13 carotid artery disease 14 severe mixed anion and non-anion gap metabolic acidosis, recovered 15 acute respiratory failure secondary to above recovered and the patient is currently on room air oxygen 16 history of atrial fibrillation 17 chronic anxiety 18 C. diff colitis currently on oral vancomycin, no diarrhea or artery on oral vancomycin 19 stage II sacral decubitus ulceration/pressure ulcers 20 bedbugs per history 21 thrombocytopenia, of the IV heparin and platelet count is currently up to 115 Plan Management of atrial fibrillation per cardiology. The patient is on metoprolol 25 mg by mouth twice a day Continue aspirin and Effient Lasix 20 mg by mouth twice a day Consider long-term articulation based on his history of atrial fibrillation and this will be discussed with cardiology wound care and we will consult wound services for further advice. We'll apply zinc oxide and we'll consult wound services. Continue oral vancomycin Condition is still critical.
[2019-10-16] MEDS: LISINOPRIL 2.5 MG TAB PO SCH (11:01)
[2019-10-16] MEDS: TAMSULOSIN 0.4 MG CAP.ER.24H PO SCH (11:01)
[2019-10-16] MEDS: HYDROPHILIC CREAM 180 GM TUBE TOPICAL SCH (11:01)
[2019-10-16 12:02] LABS: Glucose,Whole Blood 113 mg/dL (75-99)
[2019-10-16] MEDS ORDERED: METOPROLOL TARTRATE 25 MG TAB PO STA (12:32)
[2019-10-16] MEDS: POTASSIUM CHLORIDE ER 20 MEQ TAB.ER PO SCH ×2 (12:44→14:06)
[2019-10-16 16:50] LABS: Glucose,Whole Blood 106 mg/dL (75-99)
[2019-10-16] MEDS: FUROSEMIDE 20 MG TAB PO SCH (17:08)
[2019-10-16 20:50] LABS: Glucose,Whole Blood 145 mg/dL (75-99)
[2019-10-17] MEDS: DOPamine DRIP 800 MG in DEXTROSE/WATER 1 250ML.BAG IV SCH (00:49)
[2019-10-17] MEDS: VANCOMYCIN ORAL SOLUTION 250 MG/5 ML BOTTLE PO SCH ×4 (00:53→17:41)
[2019-10-17] MEDS: CHERRY FLAVOR 60 ML BOTTLE PO SCH ×4 (00:53→18:37)
[2019-10-17 04:44] LABS: Anisocytosis Slight; Basophils % (A) 0 %; Eosinophils # (A) 0.1 k/uL (0-0.7); Eosinophils % (A) 1 %; HCT 34.4 % (39.0-53.0); Hypochromasia Marked; Lymphocytes # (A) 1.2 k/uL (1.0-4.8); Lymphocytes % (A) 13 %; MCH 25.2 pg (25.0-35.0); MCHC 29.2 g/dL (31.0-37.0); MCV 86.3 fL (80.0-100.0); Mean Platelet Volume 10.6; Monocytes # (A) 0.3 k/uL (0-1.0); Monocytes % (A) 3 %; Neutrophils # (A) 7.8 k/uL (1.3-7.7); Neutrophils % (A) 81 %; Platelet Count 161 k/uL (150-450); RBC 3.98 m/uL (4.30-5.90); RDW 17.6 % (11.5-15.5); WBC 9.6 k/uL (3.8-10.6)
[2019-10-17 04:50] LABS: Albumin 2.2 g/dL (3.5-5.0); Calcium 7.4 mg/dL (8.4-10.2); Potassium 3.7 mmol/L (3.5-5.1); Total Bilirubin 0.9 mg/dL (0.2-1.3)
[2019-10-17] MEDS: LEVOTHYROXINE 25 MCG TAB PO SCH (06:16)
[2019-10-17 06:57] LABS: Glucose,Whole Blood 115 mg/dL (75-99)
[2019-10-17] MEDS ORDERED: FUROSEMIDE 10 MG/ML 4 ML VIAL IV STA (07:31)
--- NOTE | 2019-10-17 08:08 | PN ---
PROGRESS NOTE Mr. Maradiaga is a 64-year-old male, status post mitral valve repair, history of coronary artery disease who presented with episode of atrial fibrillation with rapid ventricular response and evidence of non ST-segment elevation myocardial infarction, worsening left ventricular systolic function. He underwent cardiac catheterization and stenting of the RCA and the LAD. He is doing well this morning. His breathing is stable. He is denying any dizziness or palpitation. He denies any nausea. He feels better overall. He had response earlier. He continues to be on aspirin once a day, Lipitor 40 mg daily, furosemide 20 mg twice a day, lisinopril 2.5 mg daily, metoprolol tartrate 25 mg twice a day and Effient 10 mg daily. PHYSICAL EXAMINATION: Blood pressure 108/80 with the heart rate in the 70s. LUNGS: Clear. HEART: Irregular, irregular. S1, S2. No S3 with systolic murmur. No diastolic murmur. No rub. ABDOMEN: Soft, nontender. EXTREMITIES: +1 edema on the right side. LAB DATA: Lab data revealed BUN and creatinine 20 and 1.31, hemoglobin of 10, platelet count of 161. His AST is 95, ALT 81. IMPRESSION: 1. Status post stenting of the right coronary artery and left anterior descending artery. 2. Ischemic cardiomyopathy. 3. Status post mitral valve repair. 4. Atrial fibrillation. 5. History of ulceration on the back. 6. History of chronic obstructive lung disease. 7. Medical debilitation. 8. Sacral decubitus. RECOMMENDATION: From the cardiac standpoint, I will give him one dose of IV Lasix. I will increase the dose of his oral beta skylar. I will initiate treatment with anticoagulation and stop the aspirin. Obtain physical therapy evaluation as well as increase his activity and hopefully he will be able to be discharged home in the next 48 hours. MMODL / IJN: [id number] /
[2019-10-17] MEDS: LISINOPRIL 2.5 MG TAB PO SCH (10:07)
[2019-10-17] MEDS: TAMSULOSIN 0.4 MG CAP.ER.24H PO SCH (10:08)
[2019-10-17] MEDS: PANTOPRAZOLE 40 MG TABLET PO SCH ×2 (10:08→21:57)
[2019-10-17] MEDS: FUROSEMIDE 20 MG TAB PO SCH ×3 (10:08→16:09)
[2019-10-17] MEDS: CLOPIDOGREL 75 MG TAB PO SCH (10:08)
[2019-10-17] MEDS: ASPIRIN 81 MG PO SCH ×2 (10:08→10:27)
[2019-10-17] MEDS: FLUoxetine HCL 20 MG CAP PO SCH (10:08)
[2019-10-17] MEDS: ATORVASTATIN 40 MG TAB PO SCH (10:08)
[2019-10-17] MEDS: APIXABAN 5 MG TAB PO SCH ×2 (10:08→21:57)
[2019-10-17] MEDS: HYDROPHILIC CREAM 180 GM TUBE TOPICAL SCH (10:27)
[2019-10-17] MEDS: METOPROLOL TARTRATE 50 MG TAB PO SCH ×2 (11:02→22:38)
--- NOTE | 2019-10-17 11:40 | P.PN ---
Subjective Progress Note Date: 10/17/19 On 10/17/2019 patient seen in follow-up in the intensive care unit, he is awake and alert, he seems to be a bit frustrated this morning, but mentation is appropriate, is answering questions appropriately. Denies any difficulty breathing, no reports of chest pain, room air pulse ox is 94%, hemodynamically stable, remains in atrial fibrillation with a controlled rate, patient has been afebrile, patient is working with physical therapy, has been up on the side of the bed, patient is left [id number] and PTT, and usually gets around in his wheelchair at home, does not wear prosthesis for his left stump. Lung sounds are positive for anterior crackles, but no dyspnea, patient is on room air. Continues on oral vancomycin for C. diff colitis, and still having stool incontinence, Beaulieu catheter is in place, patient has a stage III decubitus ulcer on his coccyx which is being locally treated. No acute issues overnight. From pulmonary perspective patient can be downgraded to selective care, he received the midline catheter today, however is not flushing well, and for that reason his right groin lumen has not been able to come out yet. Objective - Vital Signs Vital signs: Vital Signs Temp 97.7 F 10/17/19 04:00 Pulse 96 10/17/19 11:00 Resp 19 10/17/19 11:00 BP 125/108 10/17/19 11:00 Pulse Ox 94 L 10/17/19 11:00 Intake & Output 10/16/19 10/17/19 10/17/19 18:59 06:59 18:59 Intake Total 825 800 250 Output Total 1675 555 405 Balance -850 245 -155 Weight 74.2 kg 73.1 kg Intake: IV 625 600 250 Dextrose 5%-0.45% NaCl 1, 625 600 250 000 ml @ 50 mls/hr IV . Q20H [facility] Rx#:[id number] Oral 200 200 Output: Urine 1675 555 405 Other: Voiding Method Indwelling Catheter Indwelling Catheter # Bowel Movements 1 ABP, PAP, CO, CI - Last Documented Arterial Blood Pressure 176/58 - Exam GENERAL EXAM: Alert, active, on room air 64 y.o. -Citizen Of [place] male comfortable in no apparent distress. HEAD: Normocephalic/atraumatic. EYES: Normal reaction of pupils, equal size. Conjunctiva pink, sclera white. NOSE: Clear with pink turbinates. THROAT: No erythema or exudates. NECK: No masses, no JVD, no thyroid enlargement, no adenopathy. CHEST: No chest wall deformity. Symmetrical expansion. LUNGS: Equal air entry with anterior upper lobe crackles, wheeze, rhonchi or dullness. CVS: Irregular rate and rhythm, normal S1 and S2, no gallops, no murmurs, no rubs ABDOMEN: Soft, nontender. No hepatosplenomegaly, normal bowel sounds, no guarding or rigidity. EXTREMITIES: No clubbing, no edema, no cyanosis, 2+ pulses and upper and lower extremities. MUSCULOSKELETAL: Muscle strength and tone normal. Left [id number] amputation SPINE: No scoliosis or deformity SKIN: No rashes, patient has a stage III on his coccyx, decubitus ulcer CENTRAL NERVOUS SYSTEM: Alert and oriented -3. No focal deficits, tone is normal in all 4 extremities. PSYCHIATRIC: Alert and oriented -3. Appropriate affect. Intact judgment and insight. - Labs CBC & Chem 7: 10/17/19 04:23 10/17/19 04:23 Labs: Abnormal Lab Results - Last 24 Hours (Table) 10/16/19 10/16/19 10/16/19 Range/Units 12:01 16:49 20:49 RBC (4.30-5.90) m/uL Hgb (13.0-17.5) gm/dL Hct (39.0-53.0) % MCHC (31.0-37.0) g/dL RDW (11.5-15.5) % Neutrophils # (1.3-7.7) k/uL Sodium (137-145) mmol/L Creatinine (0.66-1.25) mg/dL POC Glucose (mg/dL) 113 H 106 H 145 H (75-99) mg/dL Calcium (8.4-10.2) mg/dL AST (17-59) U/L ALT (4-49) U/L Total Protein (6.3-8.2) g/dL Albumin (3.5-5.0) g/dL 10/17/19 10/17/19 10/17/19 Range/Units 04:23 04:23 06:56 RBC 3.98 L (4.30-5.90) m/uL Hgb 10.0 L (13.0-17.5) gm/dL Hct 34.4 L (39.0-53.0) % MCHC 29.2 L (31.0-37.0) g/dL RDW 17.6 H (11.5-15.5) % Neutrophils # 7.8 H (1.3-7.7) k/uL Sodium 133 L (137-145) mmol/L Creatinine 1.31 H (0.66-1.25) mg/dL POC Glucose (mg/dL) 115 H (75-99) mg/dL Calcium 7.4 L (8.4-10.2) mg/dL AST 95 H (17-59) U/L ALT 81 H (4-49) U/L Total Protein 5.0 L (6.3-8.2) g/dL Albumin 2.2 L (3.5-5.0) g/dL Microbiology - Last 24 Hours (Table) 10/10/19 20:26 Blood Culture - Final Blood No Growth after 144 hours Assessment and Plan Plan: Assessment: 1 acute unresponsiveness, multifactorial. Recovered and the patient is back to his normal mentation. This was probably related to hypoglycemia and cardiac arrhythmias. The patient has normal mental status for now 2 acute hypoglycemia, treated, and recovered 3 coronary artery disease with presentation with junctional bradycardia . His LV ejection fraction is around 20-25%. The patient was found to have ischemic cardiomyopathy and the patient had cardiac catheterization and stenting of the L AD and RCA. His cardiac rhythm is into atrial fibrillation for now. He did have RVR yesterday and currently is off the Cardizem drip. On 10/17/2019 patient has been started on Eliquis, remains in A. 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 Creatinine is improving is down and it continues to improve is down to 1.19 10 COPD 11 hypothyroidism 12 hypertension 13 carotid artery disease 14 severe mixed anion and non-anion gap metabolic acidosis, recovered 15 acute respiratory failure secondary to above recovered and the patient is currently on room air oxygen 16 history of atrial fibrillation 17 chronic anxiety 18 C. diff colitis currently on oral vancomycin, no diarrhea or artery on oral vancomycin 19 stage II sacral decubitus ulceration/pressure ulcers 20 bedbugs per history 21 thrombocytopenia, of the IV heparin and platelet count is currently up to 161 22 acute kidney injury and the possibility of ATN Plan: Continue current medical treatment, patient has been started on anticoagulation per cardiology, hemodynamically stable, remains in A. fib with a controlled rate, no reports of chest pain, no difficulty breathing, he was given additional dose of IV Lasix per cardiology, he is on room air, maintaining stable saturations, increase activity as tolerated, from critical care perspective patient can be transferred out of intensive care unit to stepdown unit today, increase activity as tolerated, he still has a triple-lumen catheter in his right groin, which will be discontinued once and IV has been established. No acute issues overnight. I performed a history & physical examination of the patient and discussed their management with my nurse practitioner, Kanchan Rizzo. I reviewed the nurse practitioner's note and agree with the documented findings and plan of care. Lung sounds are positive for mild crackles anteriorly. The findings and the impression was discussed with the patient. I attest to the documentation by the nurse practitioner. Time with Patient: Less than 30
--- NOTE | 2019-10-17 13:18 | CDI ---
Documentation Clarification Form Date: 10/17/2019 12:41:46 PM From: Ai Mccann RN CCDS Admit Date: 10/10/2019 01:03:00 PM Patient Name: Reddy Maradiaga Visit Number: [id number] Discharge Date: ATTENTION: The Clinical Documentation Specialists (CDI) and [facility] Coding Staff appreciate your assistance in clarifying documentation. Please respond to the clarification below the line at the bottom and electronically sign. The CDI & [facility] Coding staff will review the response and follow-up if needed. Please note: Queries are made part of the Legal Health Record. If you have any questions, please contact the author of this message via ITS. Dr. Corrales, Conflicting documentation has been found in the medical record: 10/15 Wound Care Consult Pressure ulcer of coccygeal region Stage 2 10/10, 10/11, 10/12, 10/13 10/14, 10/15 & Critical Care Progress notes under impressions Stage II sacral decubitus ulceration Medical history includes, COPD, DM2, Cdiff, HTN, PAD, Left above the knee amputation. 10/16 Critical Care Progress Note under exam Patient has stage III decubitus ulcer on his coccyx which is being locally treated. History/Risk Factors: 64 [id number] presents to [facility] as a transfer from [facility] with NSTEMI Clinical Indicators: Labs 10/15 Total protein 4.8, Albumin 2.1, bun 21, Wbc 10.7, Hgb 9.9, Per wound care Consult Midline coccyx ulceration limited to skin breakdown granulation noted within the wound bed maceration to adrian wound all other skin color, texture, turgor decreased. Treatment: 10/15 Triad daily, Turn every 2 hours. When sitting in chair utilize waffle cousin. Increase protein Wound Care (see note above) 10/14 Ensure Enlive In your opinion, what is the most clinically appropriate diagnosis for this patient? * Coccyx Pressure Ulcer Stage 2 POA * Coccyx Pressure Ulcer Stage 2 POA evolved to Stage 3 * Other explanation of clinical findings * Unable to determine (no explanation for clinical findings) (Last Revision: November 2017) Coccyx Pressure Ulcer Stage 2 POA MTDD
[2019-10-17] MEDS: HYDROcodone/APAP 10-325MG 1 EACH TAB PO PRN (13:26)
[2019-10-17 13:30] LABS: Glucose,Whole Blood 102 mg/dL (75-99)
[2019-10-17] MEDS: DEXTROSE 5%-0.45% NACL 1,000 ML IV SCH (13:58)
--- NOTE | 2019-10-17 16:42 | P.PN ---
Subjective 64 years old -Citizen Of [place] male, with past medical history of coronary artery disease, atrial fibrillation, COPD, diabetes mellitus, hypertension, hyperlipidemia, hypothyroidism, chronic kidney disease stage III, peripheral artery disease, anxiety/depression, cardiac valve replacement, GERD. He was [facility] in ICU for tachyarrhythmia found to have low ejection fraction of 25%, and his been followed closely by cardiology team and critical care team, he was intubated temporally and currently he is on room air with oxygen saturation of 97-98%, still still tachycardic of 108-124, blood pressure 109/74. Been afebrile. Creatinine elevated initially came back to normal at 1.0 today, sodium 134, not elevated white cell count at 9.9K, hemoglobin 10.4, platelets low at 64K. 10/15/2019 Patient remains in the ICU, he is totally awake and oriented, looks comfortable. Patient yesterday couldn't get his cardiac cath due to procedure problem, cardiology team will try again today with possible pacemaker/AICD placement. His heart rate looks more stable in the 70s and 80s other than a few PVCs and PACs, That he is hemodynamically stable, he denies any chest pain or dyspnea, he complained of some right foot pain and there is minimal ulceration on the toes months does not look infected, his WBC is 9.8K, hemoglobin 10.4, platelets 62, sodium 135, potassium 3.7 and creatinine 1.13. Ejection fraction 25% He remains on D5 half-normal saline at 50 mL per hour and oral vancomycin for possible C. diff colitis, Lopressor 12.5 mg twice daily was added yesterday and patient tolerated that well. Continue with aspirin 325 mg and Protonix 40 mg twice a day 10/16/2019 Patient remains in the ICU currently, he does not complain from chest pain or dyspnea, fully awake and oriented, no abdominal complaints, no nausea vomiting and is tolerating diet. Yesterday he underwent coronary angiogram showing severe two-vessel disease status post stenting of his right coronary artery with 95% stenosis and left anterior descending artery was 60-70%, status post stents by 2 placement. And patient currently is on aspirin and effient. Patient is counseled about the importance of aggressive therapy and he understands and agrees. His course was complicated last night with A. fib and RVR with heart rate 110 up to 156, 1 time dose of metoprolol 25 mg did not control the related and patient had to be restarted on Cardizem drip at 5 mg currently per cardiology's recommendation, his heart rate is better controlled currently, his heart rate is better controlled this morning at the rate of 69-82. Sugar controlled, creatinine 1.1, sodium 135 he remains on Protonix 40 mg twice a day, oral vancomycin, metoprolol 25 mg twice a day, lisinopril 2.5 g daily and Lasix 20 mg orally twice a day with one 10 dose of 40 mg daily. 10/17/2019 No overnight events patient's creatinine went up from monitor his creatinine will probably repeat chest x-ray tomorrow patient does not appear to be in heart failure exacerbation at this time Constitutional: Denied any fatigue denied any fever. Cardio vascular: denied any chest pain, palpitations Gastrointestinal denied any nausea vomiting Pulmonary: Denied any shortness of breath cough Neurologic denied any new focal deficits All inpatient medications were reviewed and appropriate changes in these medications as dictated in the interval history and assessment and plan. Objective - Vital Signs Vital signs: Vital Signs Temp 97.7 F 10/17/19 09:00 Pulse 81 10/17/19 15:00 Resp 17 10/17/19 15:00 BP 101/59 10/17/19 15:00 Pulse Ox 93 L 10/17/19 15:00 Intake & Output 10/16/19 10/17/19 10/17/19 18:59 06:59 18:59 Intake Total 825 800 450 Output Total 1719 602 6921 Balance -850 245 -1130 Weight 74.2 kg 73.1 kg Intake: IV 625 600 450 Dextrose 5%-0.45% NaCl 1, 625 600 450 000 ml @ 50 mls/hr IV . Q20H [facility] Rx#:[id number] Oral 200 200 Output: Urine 5666 [id number] 9602 Other: Voiding Method Indwelling Catheter Indwelling Catheter Indwelling Catheter # Bowel Movements 1 ABP, PAP, CO, CI - Last Documented Arterial Blood Pressure 176/58 - Exam GENERAL: The patient is alert and oriented x3, not in any acute distress. Well developed, well nourished. HEENT: Pupils are round and equally reacting to light. EOMI. No scleral icterus. No conjunctival pallor. Normocephalic, atraumatic. No pharyngeal erythema. No thyromegaly. CARDIOVASCULAR: S1 and S2 present. No murmurs, rubs, or gallops. PULMONARY: Chest is clear to auscultation, no wheezing or crackles. -ABDOMEN: Soft, nontender, nondistended, normoactive bowel sounds. No palpable organomegaly. Beaulieu catheter is in place MUSCULOSKELETAL: No joint swelling or deformity. EXTREMITIES: No cyanosis, clubbing, bilateral pedal edema 2+ pitting NEUROLOGICAL: Gross neurological examination did not reveal any focal deficits. SKIN: Patient has multiple unstageable buttock and the decubitus ulcers - Labs CBC & Chem 7: 10/17/19 04:23 10/17/19 04:23 Labs: Abnormal Lab Results - Last 24 Hours (Table) 10/16/19 10/16/19 10/17/19 Range/Units 16:49 20:49 04:23 RBC (4.30-5.90) m/uL Hgb (13.0-17.5) gm/dL Hct (39.0-53.0) % MCHC (31.0-37.0) g/dL RDW (11.5-15.5) % Neutrophils # (1.3-7.7) k/uL Sodium 133 L (137-145) mmol/L Creatinine 1.31 H (0.66-1.25) mg/dL POC Glucose (mg/dL) 106 H 145 H (75-99) mg/dL Calcium 7.4 L (8.4-10.2) mg/dL AST 95 H (17-59) U/L ALT 81 H (4-49) U/L Total Protein 5.0 L (6.3-8.2) g/dL Albumin 2.2 L (3.5-5.0) g/dL 10/17/19 10/17/19 10/17/19 Range/Units 04:23 06:56 13:29 RBC 3.98 L (4.30-5.90) m/uL Hgb 10.0 L (13.0-17.5) gm/dL Hct 34.4 L (39.0-53.0) % MCHC 29.2 L (31.0-37.0) g/dL RDW 17.6 H (11.5-15.5) % Neutrophils # 7.8 H (1.3-7.7) k/uL Sodium (137-145) mmol/L Creatinine (0.66-1.25) mg/dL POC Glucose (mg/dL) 115 H 102 H (75-99) mg/dL Calcium (8.4-10.2) mg/dL AST (17-59) U/L ALT (4-49) U/L Total Protein (6.3-8.2) g/dL Albumin (3.5-5.0) g/dL Microbiology - Last 24 Hours (Table) 10/10/19 20:26 Blood Culture - Final Blood No Growth after 144 hours Assessment and Plan Plan: Tachycardia and bradycardia syndrome , with A. fib and RVR, patient is on anti- coagulation and patient is presently rate controlled Severe coronary artery disease with stent placement in RCA and LAD on 10/14 Acute on chronic systolic heart failure with ejection fraction 25% patient still has some pedal edema Chronic kidney disease stage II probably from diabetic nephropathy -Acute renal failure probably secondary to excessive diuresis was given 1 dose of Lasix today. C. diff colitis Atrial fibrillation: Patient is presently rate controlled Diabetes mellitus Hypertension Hyperlipidemia Hypothyroidism History of upper peripheral artery disease Inset/depression, not in active issue History of cardiac valve replacement GERD
[2019-10-17 17:41] LABS: Glucose,Whole Blood 226 mg/dL (75-99)
[2019-10-17 17:50] LABS: Glucose,Whole Blood 122 mg/dL (75-99)
[2019-10-18] MEDS: VANCOMYCIN ORAL SOLUTION 250 MG/5 ML BOTTLE PO SCH ×4 (00:09→17:11)
[2019-10-18] MEDS: HYDROcodone/APAP 10-325MG 1 EACH TAB PO PRN ×3 (00:09→15:42)
[2019-10-18] MEDS: CHERRY FLAVOR 60 ML BOTTLE PO SCH ×4 (00:10→17:12)
[2019-10-18] MEDS: LEVOTHYROXINE 25 MCG TAB PO SCH (06:05)
[2019-10-18 06:11] LABS: Glucose,Whole Blood 107 mg/dL (75-99)
[2019-10-18] MEDS: TAMSULOSIN 0.4 MG CAP.ER.24H PO SCH (07:59)
[2019-10-18] MEDS: ATORVASTATIN 40 MG TAB PO SCH (07:59)
[2019-10-18] MEDS: METOPROLOL TARTRATE 50 MG TAB PO SCH (07:59)
[2019-10-18] MEDS: LISINOPRIL 2.5 MG TAB PO SCH (07:59)
[2019-10-18] MEDS: CLOPIDOGREL 75 MG TAB PO SCH (07:59)
[2019-10-18] MEDS: FLUoxetine HCL 20 MG CAP PO SCH ×2 (07:59→08:03)
[2019-10-18] MEDS: FUROSEMIDE 20 MG TAB PO SCH (07:59)
[2019-10-18] MEDS: APIXABAN 5 MG TAB PO SCH (07:59)
[2019-10-18] MEDS: HYDROPHILIC CREAM 180 GM TUBE TOPICAL SCH (08:00)
[2019-10-18] MEDS: PANTOPRAZOLE 40 MG TABLET PO SCH (08:00)
[2019-10-18 08:48] LABS: Anisocytosis Slight; HCT 32.8 % (39.0-53.0); HGB 9.6 gm/dL (13.0-17.5); Hypochromasia Marked; MCH 25.9 pg (25.0-35.0); MCHC 29.2 g/dL (31.0-37.0); MCV 88.7 fL (80.0-100.0); Mean Platelet Volume 9.8; Platelet Count 210 k/uL (150-450); RBC 3.69 m/uL (4.30-5.90); RDW 17.7 % (11.5-15.5); WBC 11.1 k/uL (3.8-10.6)
[2019-10-18 09:00] LABS: Albumin 2.2 g/dL (3.5-5.0); Calcium 7.5 mg/dL (8.4-10.2); Potassium 4.1 mmol/L (3.5-5.1); Total Bilirubin 0.8 mg/dL (0.2-1.3)
[2019-10-18 12:19] LABS: Glucose,Whole Blood 133 mg/dL (75-99)
--- NOTE | 2019-10-18 12:42 | P.PN ---
Subjective 64 years old -Swiss male, with past medical history of coronary artery disease, atrial fibrillation, COPD, diabetes mellitus, hypertension, hyperlipidemia, hypothyroidism, chronic kidney disease stage III, peripheral artery disease, anxiety/depression, cardiac valve replacement, GERD. He was transferred from [facility] to [facility] in ICU for tachyarrhythmia found to have low ejection fraction of 25%, and his been followed closely by cardiology team and critical care team, he was intubated temporally and currently he is on room air with oxygen saturation of 97-98%, still still tachycardic of 108-124, blood pressure 109/74. Been afebrile. Creatinine elevated initially came back to normal at 1.0 today, sodium 134, not elevated white cell count at 9.9K, hemoglobin 10.4, platelets low at 64K. 10/15/2019 Patient remains in the ICU, he is totally awake and oriented, looks comfortable. Patient yesterday couldn't get his cardiac cath due to procedure problem, cardiology team will try again today with possible pacemaker/AICD placement. His heart rate looks more stable in the 70s and 80s other than a few PVCs and PACs, That he is hemodynamically stable, he denies any chest pain or dyspnea, he complained of some right foot pain and there is minimal ulceration on the toes months does not look infected, his WBC is 9.8K, hemoglobin 10.4, platelets 62, sodium 135, potassium 3.7 and creatinine 1.13. Ejection fraction 25% He remains on D5 half-normal saline at 50 mL per hour and oral vancomycin for possible C. diff colitis, Lopressor 12.5 mg twice daily was added yesterday and patient tolerated that well. Continue with aspirin 325 mg and Protonix 40 mg twice a day 10/16/2019 Patient remains in the ICU currently, he does not complain from chest pain or dyspnea, fully awake and oriented, no abdominal complaints, no nausea vomiting and is tolerating diet. Yesterday he underwent coronary angiogram showing severe two-vessel disease status post stenting of his right coronary artery with 95% stenosis and left anterior descending artery was 60-70%, status post stents by 2 placement. And patient currently is on aspirin and effient. Patient is counseled about the importance of aggressive therapy and he understands and agrees. His course was complicated last night with A. fib and RVR with heart rate 110 up to 156, 1 time dose of metoprolol 25 mg did not control the related and patient had to be restarted on Cardizem drip at 5 mg currently per cardiology's recommendation, his heart rate is better controlled currently, his heart rate is better controlled this morning at the rate of 69-82. Sugar controlled, creatinine 1.1, sodium 135 he remains on Protonix 40 mg twice a day, oral vancomycin, metoprolol 25 mg twice a day, lisinopril 2.5 g daily and Lasix 20 mg orally twice a day with one 10 dose of 40 mg daily. 10/17/2019 No overnight events patient's creatinine went up from monitor his creatinine will probably repeat chest x-ray tomorrow patient does not appear to be in heart failure exacerbation at this time 10/18/2019 Patient is having significant diarrhea because of which I'm holding of Lasix today possibly will be discharged tomorrow on oral Lasix.she'll be started onQuestran and patient's serum sodium is 134 along with the serum creatinine staying bit higher. Constitutional: Denied any fatigue denied any fever. Cardio vascular: denied any chest pain, palpitations Gastrointestinal denied any nausea vomiting Pulmonary: Denied any shortness of breath cough Neurologic denied any new focal deficits All inpatient medications were reviewed and appropriate changes in these medications as dictated in the interval history and assessment and plan. Objective - Vital Signs Vital signs: Vital Signs Temp 98.2 F 10/18/19 08:00 Pulse 85 10/18/19 08:00 Resp 18 10/18/19 08:00 BP 95/58 10/18/19 08:00 Pulse Ox 97 10/18/19 08:00 Intake & Output 10/17/19 10/18/19 10/18/19 18:59 06:59 18:59 Intake Total 700 240 Output Total 1680 1400 Balance -980 -1400 240 Weight 77.5 kg Intake: IV 700 Dextrose 5%-0.45% NaCl 1, 700 000 ml @ 50 mls/hr IV . Q20H [facility] Rx#:[id number] Oral 240 Output: Urine 1680 1400 Other: Voiding Method Indwelling Catheter Indwelling Catheter Indwelling Catheter # Bowel Movements 1 1 ABP, PAP, CO, CI - Last Documented Arterial Blood Pressure 176/58 - Exam GENERAL: The patient is alert and oriented x3, not in any acute distress. Well developed, well nourished. HEENT: Pupils are round and equally reacting to light. EOMI. No scleral icterus. No conjunctival pallor. Normocephalic, atraumatic. No pharyngeal erythema. No thyromegaly. CARDIOVASCULAR: S1 and S2 present. No murmurs, rubs, or gallops. PULMONARY: Chest is clear to auscultation, no wheezing or crackles. -ABDOMEN: Soft, nontender, nondistended, normoactive bowel sounds. No palpable organomegaly. Beaulieu catheter is in place MUSCULOSKELETAL: No joint swelling or deformity. EXTREMITIES: No cyanosis, clubbing, bilateral pedal edema 2+ pitting NEUROLOGICAL: Gross neurological examination did not reveal any focal deficits. SKIN: Patient has multiple unstageable buttock and the decubitus ulcers - Labs CBC & Chem 7: 10/18/19 08:28 10/18/19 08:28 Labs: Abnormal Lab Results - Last 24 Hours (Table) 10/17/19 10/17/19 10/17/19 Range/Units 13:29 17:39 17:48 WBC (3.8-10.6) k/uL RBC (4.30-5.90) m/uL Hgb (13.0-17.5) gm/dL Hct (39.0-53.0) % MCHC (31.0-37.0) g/dL RDW (11.5-15.5) % Sodium (137-145) mmol/L Carbon Dioxide (22-30) mmol/L BUN (9-20) mg/dL Creatinine (0.66-1.25) mg/dL Glucose (74-99) mg/dL POC Glucose (mg/dL) 102 H 226 H 122 H (75-99) mg/dL Calcium (8.4-10.2) mg/dL AST (17-59) U/L ALT (4-49) U/L Total Protein (6.3-8.2) g/dL Albumin (3.5-5.0) g/dL 10/18/19 10/18/19 10/18/19 Range/Units 06:10 08:28 08:28 WBC 11.1 H (3.8-10.6) k/uL RBC 3.69 L (4.30-5.90) m/uL Hgb 9.6 L (13.0-17.5) gm/dL Hct 32.8 L (39.0-53.0) % MCHC 29.2 L (31.0-37.0) g/dL RDW 17.7 H (11.5-15.5) % Sodium 133 L (137-145) mmol/L Carbon Dioxide 21 L (22-30) mmol/L BUN 23 H (9-20) mg/dL Creatinine 1.38 H (0.66-1.25) mg/dL Glucose 105 H (74-99) mg/dL POC Glucose (mg/dL) 107 H (75-99) mg/dL Calcium 7.5 L (8.4-10.2) mg/dL AST 81 H (17-59) U/L ALT 70 H (4-49) U/L Total Protein 5.0 L (6.3-8.2) g/dL Albumin 2.2 L (3.5-5.0) g/dL 10/18/19 Range/Units 12:05 WBC (3.8-10.6) k/uL RBC (4.30-5.90) m/uL Hgb (13.0-17.5) gm/dL Hct (39.0-53.0) % MCHC (31.0-37.0) g/dL RDW (11.5-15.5) % Sodium (137-145) mmol/L Carbon Dioxide (22-30) mmol/L BUN (9-20) mg/dL Creatinine (0.66-1.25) mg/dL Glucose (74-99) mg/dL POC Glucose (mg/dL) 133 H (75-99) mg/dL Calcium (8.4-10.2) mg/dL AST (17-59) U/L ALT (4-49) U/L Total Protein (6.3-8.2) g/dL Albumin (3.5-5.0) g/dL Assessment and Plan Plan: Tachycardia and bradycardia syndrome , with A. fib and RVR, patient is on anti-coagulation and patient is presently rate controlled Severe coronary artery disease with stent placement in RCA and LAD on 10/14 Acute on chronic systolic heart failure with ejection fraction 25% patient still has some pedal edema Chronic kidney disease stage II probably from diabetic nephropathy -Acute renal failure probably secondary to excessive diuresis , will hold off Lasix and the acute renal failure is secondary to excessive diarrhea. -Hypovolemic hyponatremia secondary to diarrhea and Lasix Lasix will be held temporarily. C. diff colitis Atrial fibrillation: Patient is presently rate controlled Diabetes mellitus Hypertension Hyperlipidemia Hypothyroidism History of upper peripheral artery disease Inset/depression, not in active issue History of cardiac valve replacement GERD
[2019-10-18 13:08] VITALS: BMI 24.5
[2019-10-18] MEDS: DEXTROSE 5%-0.45% NACL 1,000 ML IV SCH (13:08)
[2019-10-18] MEDS: HEPARIN SODIUM,PORCINE 5,000 UNIT/ML 1 ML VIAL SQ SCH (13:11)
--- NOTE | 2019-10-18 13:49 | P.PN ---
Subjective Progress Note Date: 10/18/19 This is a pleasant 64-year-old gentleman status post mitral valve repair, history of CAD who presented with episode of atrial fibrillation with rapid ventricular response, evidence of non-ST elevation myocardial infarction and worsening left ventricular systolic function. He underwent cardiac catheterizat ion and stenting of RCA and LAD. This morning he is doing well his breathing is stable. He denies any dizziness or palpitations. He denies any nausea. Denies any chest discomfort. He continues to be in atrial fibrillation with a controlled ventricular response. He has positive for C. diff and is on oral vancomycin. He is currently on Lipitor 40 mg by mouth daily, Eliquis 5 mg by mouth twice a day, Plavix 75 mg by mouth daily, lisinopril 2.5 mg by mouth daily, and metoprolol titrate 50 mg by mouth twice a day. Objective - Vital Signs Vital signs: Vital Signs Temp 98.0 F 10/18/19 12:00 Pulse 80 10/18/19 12:00 Resp 18 10/18/19 12:00 BP 95/57 10/18/19 12:00 Pulse Ox 99 10/18/19 12:00 Intake & Output 10/17/19 10/18/19 10/18/19 18:59 06:59 18:59 Intake Total 700 240 Output Total 1680 1400 Balance -980 -1400 240 Weight 77.5 kg 77.5 kg Intake: IV 700 Dextrose 5%-0.45% NaCl 1, 700 000 ml @ 50 mls/hr IV . Q20H [facility] Rx#:[id number] Oral 240 Output: Urine 1680 1400 Other: Voiding Method Indwelling Catheter Indwelling Catheter Indwelling Catheter # Bowel Movements 1 1 ABP, PAP, CO, CI - Last Documented Arterial Blood Pressure 176/58 - Exam PHYSICAL EXAMINATION: HEENT: Head is atraumatic, normocephalic. Pupils equal, round. Neck is supple. There is no elevated jugular venous pressure. HEART EXAMINATION: Heart sounds irregular irregular, S1 and S2 with systolic murmur. CHEST EXAMINATION: Lungs are clear to auscultation. No chest wall tenderness is noted on palpation or with deep breathing. ABDOMEN: Soft, nontender. Bowel sounds are heard. No organomegaly noted. EXTREMITIES: Evidence of 1+ right sided peripheral edema and no calf tenderness noted. NEUROLOGIC patient is awake, alert and oriented x3. . - Labs CBC & Chem 7: 10/18/19 08:28 10/18/19 08:28 Labs: Abnormal Lab Results - Last 24 Hours (Table) 10/17/19 10/17/19 10/18/19 Range/Units 17:39 17:48 06:10 WBC (3.8-10.6) k/uL RBC (4.30-5.90) m/uL Hgb (13.0-17.5) gm/dL Hct (39.0-53.0) % MCHC (31.0-37.0) g/dL RDW (11.5-15.5) % Sodium (137-145) mmol/L Carbon Dioxide (22-30) mmol/L BUN (9-20) mg/dL Creatinine (0.66-1.25) mg/dL Glucose (74-99) mg/dL POC Glucose (mg/dL) 226 H 122 H 107 H (75-99) mg/dL Calcium (8.4-10.2) mg/dL AST (17-59) U/L ALT (4-49) U/L Total Protein (6.3-8.2) g/dL Albumin (3.5-5.0) g/dL 10/18/19 10/18/19 10/18/19 Range/Units 08:28 08:28 12:05 WBC 11.1 H (3.8-10.6) k/uL RBC 3.69 L (4.30-5.90) m/uL Hgb 9.6 L (13.0-17.5) gm/dL Hct 32.8 L (39.0-53.0) % MCHC 29.2 L (31.0-37.0) g/dL RDW 17.7 H (11.5-15.5) % Sodium 133 L (137-145) mmol/L Carbon Dioxide 21 L (22-30) mmol/L BUN 23 H (9-20) mg/dL Creatinine 1.38 H (0.66-1.25) mg/dL Glucose 105 H (74-99) mg/dL POC Glucose (mg/dL) 133 H (75-99) mg/dL Calcium 7.5 L (8.4-10.2) mg/dL AST 81 H (17-59) U/L ALT 70 H (4-49) U/L Total Protein 5.0 L (6.3-8.2) g/dL Albumin 2.2 L (3.5-5.0) g/dL Assessment and Plan Assessment: #1 status post stenting of the right artery and left anterior descending artery #2 ischemic cardiomyopathy #3 status post mitral valve repair #4 atrial fibrillation #5 history of COPD #6 medical debilitation #7 sacral decubitus ulcer Plan: From cardiology's perspective, medications were reviewed and will continue the same. Anticipate the patient will be discharged in the next 24-48 hours. We'll continue to follow the patient provided further recommendations accordingly. [employer] note has been reviewed, I agree with a documented findings and plan of care. Patient was seen and examined.
--- NOTE | 2019-10-18 14:48 | P.PN ---
Subjective Progress Note Date: 10/18/19 On 10/17/2019 patient seen in follow-up in the intensive care unit, he is awake and alert, he seems to be a bit frustrated this morning, but mentation is appropriate, is answering questions appropriately. Denies any difficulty breathing, no reports of chest pain, room air pulse ox is 94%, hemodynamically stable, remains in atrial fibrillation with a controlled rate, patient has been afebrile, patient is working with physical therapy, has been up on the side of the bed, patient is left [id number] and PTT, and usually gets around in his wheelchair at home, does not wear prosthesis for his left stump. Lung sounds are positive for anterior crackles, but no dyspnea, patient is on room air. Continues on oral vancomycin for C. diff colitis, and still having stool incontinence, Beaulieu catheter is in place, patient has a stage III decubitus ulcer on his coccyx which is being locally treated. No acute issues overnight. From pulmonary perspective patient can be downgraded to selective care, he received the midline catheter today, however is not flushing well, and for that reason his right groin lumen has not been able to come out yet. On 10/18/2019 patient is seen in follow-up on selective care unit, he is resting comfortably in bed, in no acute distress, vital signs are stable, room air pulse ox of 99%, blood pressure 95/57, patient has been afebrile, no complaints of chest pain, no difficulty breathing, lung sounds are clear, no rhonchi, no wheezing, patient's lab work is stable, with blood cell count is 11.1, hemoglobin is 9.6, serum sodium is 133, BUN of 23 creatinine is 1.38, yesterday patient received 1 dose of IV Lasix and he produced over 3 L and a urine output. No swelling in lower extremities. Patient is on dual antiplatelet therapy. He remains on oral vancomycin for C. diff colitis, diarrhea is improving Objective - Vital Signs Vital signs: Vital Signs Temp 98.0 F 10/18/19 12:00 Pulse 80 10/18/19 12:00 Resp 18 10/18/19 12:00 BP 95/57 10/18/19 12:00 Pulse Ox 99 10/18/19 12:00 Intake & Output 10/17/19 10/18/19 10/18/19 18:59 06:59 18:59 Intake Total 700 240 Output Total 1680 1400 Balance -980 -1400 240 Weight 77.5 kg 77.5 kg Intake: IV 700 Dextrose 5%-0.45% NaCl 1, 700 000 ml @ 50 mls/hr IV . Q20H [facility] Rx#:[id number] Oral 240 Output: Urine 1680 1400 Other: Voiding Method Indwelling Catheter Indwelling Catheter Indwelling Catheter # Bowel Movements 1 1 ABP, PAP, CO, CI - Last Documented Arterial Blood Pressure 176/58 - Exam GENERAL EXAM: Alert, active, on room air 64 y.o. -[place] male comfortable in no apparent distress. HEAD: Normocephalic/atraumatic. EYES: Normal reaction of pupils, equal size. Conjunctiva pink, sclera white. NOSE: Clear with pink turbinates. THROAT: No erythema or exudates. NECK: No masses, no JVD, no thyroid enlargement, no adenopathy. CHEST: No chest wall deformity. Symmetrical expansion. LUNGS: Equal air entry with anterior upper lobe crackles, wheeze, rhonchi or dullness. CVS: Irregular rate and rhythm, normal S1 and S2, no gallops, no murmurs, no rubs ABDOMEN: Soft, nontender. No hepatosplenomegaly, normal bowel sounds, no guarding or rigidity. EXTREMITIES: No clubbing, no edema, no cyanosis, 2+ pulses and upper and lower extremities. MUSCULOSKELETAL: Muscle strength and tone normal. Left ciyns-fls-slyi amp utation SPINE: No scoliosis or deformity SKIN: No rashes, patient has a stage III on his coccyx, decubitus ulcer CENTRAL NERVOUS SYSTEM: Alert and oriented -3. No focal deficits, tone is normal in all 4 extremities. PSYCHIATRIC: Alert and oriented -3. Appropriate affect. Intact judgment and insight. - Labs CBC & Chem 7: 10/18/19 08:28 10/18/19 08:28 Labs: Abnormal Lab Results - Last 24 Hours (Table) 10/17/19 10/17/19 10/18/19 Range/Units 17:39 17:48 06:10 WBC (3.8-10.6) k/uL RBC (4.30-5.90) m/uL Hgb (13.0-17.5) gm/dL Hct (39.0-53.0) % MCHC (31.0-37.0) g/dL RDW (11.5-15.5) % Sodium (137-145) mmol/L Carbon Dioxide (22-30) mmol/L BUN (9-20) mg/dL Creatinine (0.66-1.25) mg/dL Glucose (74-99) mg/dL POC Glucose (mg/dL) 226 H 122 H 107 H (75-99) mg/dL Calcium (8.4-10.2) mg/dL AST (17-59) U/L ALT (4-49) U/L Total Protein (6.3-8.2) g/dL Albumin (3.5-5.0) g/dL 10/18/19 10/18/19 10/18/19 Range/Units 08:28 08:28 12:05 WBC 11.1 H (3.8-10.6) k/uL RBC 3.69 L (4.30-5.90) m/uL Hgb 9.6 L (13.0-17.5) gm/dL Hct 32.8 L (39.0-53.0) % MCHC 29.2 L (31.0-37.0) g/dL RDW 17.7 H (11.5-15.5) % Sodium 133 L (137-145) mmol/L Carbon Dioxide 21 L (22-30) mmol/L BUN 23 H (9-20) mg/dL Creatinine 1.38 H (0.66-1.25) mg/dL Glucose 105 H (74-99) mg/dL POC Glucose (mg/dL) 133 H (75-99) mg/dL Calcium 7.5 L (8.4-10.2) mg/dL AST 81 H (17-59) U/L ALT 70 H (4-49) U/L Total Protein 5.0 L (6.3-8.2) g/dL Albumin 2.2 L (3.5-5.0) g/dL Assessment and Plan Plan: Assessment: 1 acute unresponsiveness, multifactorial. Recovered and the patient is back to his normal mentation. This was probably related to hypoglycemia and cardiac arrhythmias. The patient has normal mental status for now 2 acute hypoglycemia, treated, and recovered 3 coronary artery disease with presentation with junctional bradycardia . His LV ejection fraction is around 20-25%. The patient was found to have ischemic cardiomyopathy and the patient had cardiac catheterization and stenting of the LAD and RCA. His cardiac rhythm is into atrial fibrillation for now. He did have RVR yesterday and currently is off the Cardizem drip. On 10/17/2019 patient has been started on Eliquis, remains in A. 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 Creatinine is improving is down and it continues to improve is down to 1.19 10 COPD 11 hypothyroidism 12 hypertension 13 carotid artery disease 14 severe mixed anion and non-anion gap metabolic acidosis, recovered 15 acute respiratory failure secondary to above recovered and the patient is currently on room air oxygen 16 history of atrial fibrillation 17 chronic anxiety 18 C. diff colitis currently on oral vancomycin, no diarrhea or artery on oral vancomycin 19 stage II sacral decubitus ulceration/pressure ulcers 20 bedbugs per history 21 thrombocytopenia, of the IV heparin and platelet count is currently up to 161 22 acute kidney injury and the possibility of ATN Plan: Continue current medical management, patient is stable from pulmonary/critical care perspective, no worsening dyspnea, he is on room air, encourage deep breathing and coughing, encouraged the patient to sit up in the chair, he has diuresed, his renal profile is stable. Pulmonary service will sign off in follow-up on as-needed basis. I performed a history & physical examination of the patient and discussed their management with my nurse practitioner, Kanchan Rizzo. I reviewed the nurse practitioner's note and agree with the documented findings and plan of care. Lung sounds are positive for mild crackles anteriorly. The findings and the impression was discussed with the patient. I attest to the documentation by the nurse practitioner. Time with Patient: Less than 30
[2019-10-18 17:01] LABS: Glucose,Whole Blood 99 mg/dL (75-99)
[2019-10-18 21:08] LABS: Glucose,Whole Blood 115 mg/dL (75-99)
[2019-10-19] MEDS: HYDROcodone/APAP 10-325MG 1 EACH TAB PO PRN ×2 (00:33→23:16)
[2019-10-19] MEDS: METOPROLOL TARTRATE 50 MG TAB PO SCH ×3 (00:33→23:16)
[2019-10-19] MEDS: APIXABAN 5 MG TAB PO SCH ×3 (00:34→23:16)
[2019-10-19] MEDS: PANTOPRAZOLE 40 MG TABLET PO SCH ×3 (00:34→23:16)
[2019-10-19] MEDS: CHERRY FLAVOR 60 ML BOTTLE PO SCH ×5 (00:39→23:16)
[2019-10-19] MEDS: VANCOMYCIN ORAL SOLUTION 250 MG/5 ML BOTTLE PO SCH ×5 (00:40→23:16)
[2019-10-19 06:19] LABS: Glucose,Whole Blood 123 mg/dL (75-99)
[2019-10-19] MEDS: DEXTROSE 5%-0.45% NACL 1,000 ML IV SCH (06:20)
[2019-10-19] MEDS: LEVOTHYROXINE 25 MCG TAB PO SCH (06:25)
[2019-10-19 08:08] LABS: Calcium 7.5 mg/dL (8.4-10.2); Magnesium 1.5 mg/dL (1.6-2.3); Potassium 3.9 mmol/L (3.5-5.1)
[2019-10-19 11:43] LABS: Glucose,Whole Blood 104 mg/dL (75-99)
[2019-10-19] MEDS: TAMSULOSIN 0.4 MG CAP.ER.24H PO SCH (12:06)
[2019-10-19] MEDS: ATORVASTATIN 40 MG TAB PO SCH (12:07)
[2019-10-19] MEDS: LISINOPRIL 2.5 MG TAB PO SCH (12:07)
[2019-10-19] MEDS: CLOPIDOGREL 75 MG TAB PO SCH (12:07)
[2019-10-19] MEDS: HYDROPHILIC CREAM 180 GM TUBE TOPICAL SCH (12:07)
[2019-10-19] MEDS: CHOLESTYRAMINE (WITH SUGAR) 4 GM PACKET PO SCH ×3 (12:08→17:36)
--- NOTE | 2019-10-19 12:53 | P.PN ---
Subjective 64 years old -[place] male, with past medical history of coronary artery disease, atrial fibrillation, COPD, diabetes mellitus, hypertension, hyperlipidemia, hypothyroidism, chronic kidney disease stage III, peripheral artery disease, anxiety/depression, cardiac valve replacement, GERD. He was transferred from [facility] to [facility] in ICU for tachyarrhythmia found to have low ejection fraction of 25%, and his been followed closely by cardiology team and critical care team, he was intubated temporally and currently he is on room air with oxygen saturation of 97-98%, still still tachycardic of 108-124, blood pressure 109/74. Been afebrile. Creatinine elevated initially came back to normal at 1.0 today, sodium 134, not elevated white cell count at 9.9K, hemoglobin 10.4, platelets low at 64K. 10/15/2019 Patient remains in the ICU, he is totally awake and oriented, looks comfortable. Patient yesterday couldn't get his cardiac cath due to procedure problem, cardiology team will try again today with possible pacemaker/AICD placement. His heart rate looks more stable in the 70s and 80s other than a few PVCs and PACs, That he is hemodynamically stable, he denies any chest pain or dyspnea, he complained of some right foot pain and there is minimal ulceration on the toes months does not look infected, his WBC is 9.8K, hemoglobin 10.4, platelets 62, sodium 135, potassium 3.7 and creatinine 1.13. Ejection fraction 25% He remains on D5 half-normal saline at 50 mL per hour and oral vancomycin for possible C. diff colitis, Lopressor 12.5 mg twice daily was added yesterday and patient tolerated that well. Continue with aspirin 325 mg and Protonix 40 mg twice a day 10/16/2019 Patient remains in the ICU currently, he does not complain from chest pain or dyspnea, fully awake and oriented, no abdominal complaints, no nausea vomiting and is tolerating diet. Yesterday he underwent coronary angiogram showing severe two-vessel disease status post stenting of his right coronary artery with 95% stenosis and left anterior descending artery was 60-70%, status post stents by 2 placement. And patient currently is on aspirin and effient. Patient is counseled about the importance of aggressive therapy and he understands and agrees. His course was complicated last night with A. fib and RVR with heart rate 110 up to 156, 1 time dose of metoprolol 25 mg did not control the related and patient had to be restarted on Cardizem drip at 5 mg currently per cardiology's recommendation, his heart rate is better controlled currently, his heart rate is better controlled this morning at the rate of 69-82. Sugar controlled, creatinine 1.1, sodium 135 he remains on Protonix 40 mg twice a day, oral vancomycin, metoprolol 25 mg twice a day, lisinopril 2.5 g daily and Lasix 20 mg orally twice a day with one 10 dose of 40 mg daily. 10/17/2019 No overnight events patient's creatinine went up from monitor his creatinine will probably repeat chest x-ray tomorrow patient does not appear to be in heart failure exacerbation at this time 10/18/2019 Patient is having significant diarrhea because of which I'm holding of Lasix today possibly will be discharged tomorrow on oral Lasix.she'll be started onQuestran and patient's serum sodium is 134 along with the serum creatinine staying bit higher. 10/19/2019 Patient had history of diarrhea but significant improved serum sodium remains at 133 creatinine has come down minimally. We'll continue to hold off on Lasix today will obtain a chest x-ray tomorrow make sure patient doesn't have any pulmonary edema patient probably can be started on low-dose of Lasix tomorrow. Diarrhea improves. Constitutional: Denied any fatigue denied any fever. Cardio vascular: denied any chest pain, palpitations Gastrointestinal denied any nausea vomiting Pulmonary: Denied any shortness of breath cough Neurologic denied any new focal deficits All inpatient medications were reviewed and appropriate changes in these medications as dictated in the interval history and assessment and plan. Objective - Vital Signs Vital signs: Vital Signs Temp 98.4 F 10/19/19 10:20 Pulse 66 10/19/19 11:30 Resp 16 10/19/19 11:30 BP 112/66 10/19/19 11:30 Pulse Ox 93 L 10/19/19 11:30 Intake & Output 10/18/19 10/19/19 10/19/19 18:59 06:59 18:59 Intake Total 300 100 Output Total 350 250 0 Balance -50 -250 100 Weight 77.5 kg 76 kg Intake: Oral 300 100 Output: Urine 350 250 0 Other: Voiding Method Indwelling Catheter Indwelling Catheter # Bowel Movements 1 ABP, PAP, CO, CI - Last Documented Arterial Blood Pressure 176/58 - Exam GENERAL: The patient is alert and oriented x3, not in any acute distress. Well developed, well nourished. HEENT: Pupils are round and equally reacting to light. EOMI. No scleral icterus. No conjunctival pallor. Normocephalic, atraumatic. No pharyngeal erythema. No thyromegaly. CARDIOVASCULAR: S1 and S2 present. No murmurs, rubs, or gallops. PULMONARY: Chest is clear to auscultation, no wheezing or crackles. -ABDOMEN: Soft, nontender, nondistended, normoactive bowel sounds. No palpable organomegaly. Beaulieu catheter is in place MUSCULOSKELETAL: No joint swelling or deformity. EXTREMITIES: No cyanosis, clubbing, bilateral pedal edema 2+ pitting NEUROLOGICAL: Gross neurological examination did not reveal any focal deficits. SKIN: Patient has multiple unstageable buttock and the decubitus ulcers - Labs CBC & Chem 7: 10/18/19 08:28 10/19/19 07:23 Labs: Abnormal Lab Results - Last 24 Hours (Table) 10/18/19 10/19/19 10/19/19 Range/Units 21:07 06:18 07:23 Sodium 133 L (137-145) mmol/L BUN 25 H (9-20) mg/dL Creatinine 1.29 H (0.66-1.25) mg/dL POC Glucose (mg/dL) 115 H 123 H (75-99) mg/dL Calcium 7.5 L (8.4-10.2) mg/dL Magnesium 1.5 L (1.6-2.3) mg/dL 10/19/19 Range/Units 11:40 Sodium (137-145) mmol/L BUN (9-20) mg/dL Creatinine (0.66-1.25) mg/dL POC Glucose (mg/dL) 104 H (75-99) mg/dL Calcium (8.4-10.2) mg/dL Magnesium (1.6-2.3) mg/dL Assessment and Plan Plan: Tachycardia and bradycardia syndrome , with A. fib and RVR, patient is on anti- coagulation and patient is presently rate controlled Severe coronary artery disease with stent placement in RCA and LAD on 3/10 Acute on chronic systolic heart failure with ejection fraction 25% patient still has some pedal edema Chronic kidney disease stage II probably from diabetic nephropathy -Acute renal failure probably secondary to excessive diuresis , will hold off Lasix and the acute renal failure is secondary to excessive diarrhea. -Hypovolemic hyponatremia secondary to diarrhea and Lasix Lasix will be held temporarily. C. diff colitis Atrial fibrillation: Patient is presently rate controlled Diabetes mellitus Hypertension Hyperlipidemia Hypothyroidism History of upper peripheral artery disease Inset/depression, not in active issue History of cardiac valve replacement GERD
[2019-10-19] MEDS: MAGNESIUM SULFATE-D5W PMX 1 GM in DEXTROSE/WATER 1 100ML.BAG IVPB SCH ×2 (13:37→14:58)
[2019-10-19] MEDS: MAGNESIUM OXIDE 400 MG TAB PO SCH ×2 (16:02→23:18)
[2019-10-19 16:56] LABS: Glucose,Whole Blood 95 mg/dL (75-99)
[2019-10-19 20:55] LABS: Glucose,Whole Blood 104 mg/dL (75-99)
[2019-10-20] MEDS: DEXTROSE 5%-0.45% NACL 1,000 ML IV SCH (02:54)
[2019-10-20 06:01] LABS: Glucose,Whole Blood 89 mg/dL (75-99)
[2019-10-20] MEDS: CHERRY FLAVOR 60 ML BOTTLE PO SCH ×4 (06:13→23:43)
[2019-10-20] MEDS: LEVOTHYROXINE 25 MCG TAB PO SCH (06:13)
[2019-10-20] MEDS: VANCOMYCIN ORAL SOLUTION 250 MG/5 ML BOTTLE PO SCH ×4 (06:13→23:43)
[2019-10-20 07:07] LABS: Calcium 7.8 mg/dL (8.4-10.2); Magnesium 1.7 mg/dL (1.6-2.3)
[2019-10-20 07:13] LABS: Potassium 4.2 mmol/L (3.5-5.1)
--- NOTE | 2019-10-20 07:39 | XR ---
EXAMINATION TYPE: XR chest 1V DATE OF EXAM: 10/20/2019 COMPARISON: 10/14/2019 HISTORY: Shortness of breath TECHNIQUE: Single frontal view of the chest is obtained. FINDINGS: Heart is enlarged and is postoperative change with patchy areas of consolidation. 1.5 cm n odule overlying the right lung which could relate to a nipple shadow given was not present previously . Small bilateral effusions. No pneumothorax. IMPRESSION: 1. Slight worsening of the chest x-ray most typical of CHF correlate clinically to exclude interstiti al pneumonia or pneumonitis 2. Nodular density overlying the right lower lobe may represent nipple shadow as it was not present o n the prior recent exam. Follow-up x-ray to exclude developing infiltrate.
[2019-10-20] MEDS: TAMSULOSIN 0.4 MG CAP.ER.24H PO SCH (09:07)
[2019-10-20] MEDS: FLUoxetine HCL 20 MG CAP PO SCH (09:07)
[2019-10-20] MEDS: MAGNESIUM OXIDE 400 MG TAB PO SCH ×2 (09:07→21:11)
[2019-10-20] MEDS: HYDROcodone/APAP 10-325MG 1 EACH TAB PO PRN (09:07)
[2019-10-20] MEDS: CLOPIDOGREL 75 MG TAB PO SCH (09:07)
[2019-10-20] MEDS: APIXABAN 5 MG TAB PO SCH ×2 (09:07→21:11)
[2019-10-20] MEDS: LISINOPRIL 2.5 MG TAB PO SCH (09:07)
[2019-10-20] MEDS: ATORVASTATIN 40 MG TAB PO SCH (09:07)
[2019-10-20] MEDS: PANTOPRAZOLE 40 MG TABLET PO SCH ×2 (09:07→21:11)
[2019-10-20] MEDS: METOPROLOL TARTRATE 50 MG TAB PO SCH ×2 (09:07→21:10)
[2019-10-20] MEDS: CHOLESTYRAMINE (WITH SUGAR) 4 GM PACKET PO SCH ×3 (09:23→17:44)
--- NOTE | 2019-10-20 10:30 | P.PN ---
Subjective 64 years old -Russian male, with past medical history of coronary artery disease, atrial fibrillation, COPD, diabetes mellitus, hypertension, hyperlipidemia, hypothyroidism, chronic kidney disease stage III, peripheral artery disease, anxiety/depression, cardiac valve replacement, GERD. He was transferred from [facility] to [facility] in ICU for tachyarrhythmia found to have low ejection fraction of 25%, and his been followed closely by cardiology team and critical care team, he was intubated temporally and currently he is on room air with oxygen saturation of 97-98%, still still tachycardic of 108-124, blood pressure 109/74. Been afebrile. Creatinine elevated initially came back to normal at 1.0 today, sodium 134, not elevated white cell count at 9.9K, hemoglobin 10.4, platelets low at 64K. 10/15/2019 Patient remains in the ICU, he is totally awake and oriented, looks comfortable. Patient yesterday couldn't get his cardiac cath due to procedure problem, cardiology team will try again today with possible pacemaker/AICD placement. His heart rate looks more stable in the 70s and 80s other than a few PVCs and PACs, That he is hemodynamically stable, he denies any chest pain or dyspnea, he complained of some right foot pain and there is minimal ulceration on the toes months does not look infected, his WBC is 9.8K, hemoglobin 10.4, platelets 62, sodium 135, potassium 3.7 and creatinine 1.13. Ejection fraction 25% He remains on D5 half-normal saline at 50 mL per hour and oral vancomycin for possible C. diff colitis, Lopressor 12.5 mg twice daily was added yesterday and patient tolerated that well. Continue with aspirin 325 mg and Protonix 40 mg twice a day 10/16/2019 Patient remains in the ICU currently, he does not complain from chest pain or dyspnea, fully awake and oriented, no abdominal complaints, no nausea vomiting and is tolerating diet. Yesterday he underwent coronary angiogram showing severe two-vessel disease status post stenting of his right coronary artery with 95% stenosis and left anterior descending artery was 60-70%, status post stents by 2 placement. And patient currently is on aspirin and effient. Patient is counseled about the importance of aggressive therapy and he understands and agrees. His course was complicated last night with A. fib and RVR with heart rate 110 up to 156, 1 time dose of metoprolol 25 mg did not control the related and patient had to be restarted on Cardizem drip at 5 mg currently per cardiology's recommendation, his heart rate is better controlled currently, his heart rate is better controlled this morning at the rate of 69-82. Sugar controlled, creatinine 1.1, sodium 135 he remains on Protonix 40 mg twice a day, oral vancomycin, metoprolol 25 mg twice a day, lisinopril 2.5 g daily and Lasix 20 mg orally twice a day with one 10 dose of 40 mg daily. 10/17/2019 No overnight events patient's creatinine went up from monitor his creatinine will probably repeat chest x-ray tomorrow patient does not appear to be in heart failure exacerbation at this time 10/18/2019 Patient is having significant diarrhea because of which I'm holding of Lasix today possibly will be discharged tomorrow on oral Lasix.she'll be started onQuestran and patient's serum sodium is 134 along with the serum creatinine staying bit higher. 10/19/2019 Patient had history of diarrhea but significant improved serum sodium remains at 133 creatinine has come down minimally. We'll continue to hold off on Lasix today will obtain a chest x-ray tomorrow make sure patient doesn't have any pulmonary edema patient probably can be started on low-dose of Lasix tomorrow. Diarrhea improves. 10/20/2019 Patient's edema sodium remains at 133 patient has increased pulmonary edema because of which patient was started on Lasix is oxygen saturations are cardio Aleta to patient's diarrhea also improved. His serum creatinine remains at 1.35 patient is not eating or drinking well patient will be started on Marinol. Constitutional: Denied any fatigue denied any fever. Cardio vascular: denied any chest pain, palpitations Gastrointestinal denied any nausea vomiting Pulmonary: Denied any shortness of breath cough Neurologic denied any new focal deficits All inpatient medications were reviewed and appropriate changes in these medications as dictated in the interval history and assessment and plan. Objective - Vital Signs Vital signs: Vital Signs Temp 98.2 F 10/19/19 21:14 Pulse 67 10/20/19 06:00 Resp 16 10/20/19 06:00 BP 118/56 10/20/19 06:00 Pulse Ox 91 L 10/20/19 06:00 Intake & Output 10/19/19 10/20/19 10/20/19 18:59 06:59 18:59 Intake Total 100 0 Output Total 400 200 0 Balance -300 -200 0 Weight 77.5 kg Intake: Oral 100 0 Output: Urine 400 200 0 Stool 0 Other: Voiding Method Indwelling Catheter Indwelling Catheter # Bowel Movements 1 ABP, PAP, CO, CI - Last Documented Arterial Blood Pressure 176/58 - Exam GENERAL: The patient is alert and oriented x3, not in any acute distress. Well developed, well nourished. HEENT: Pupils are round and equally reacting to light. EOMI. No scleral icterus. No conjunctival pallor. Normocephalic, atraumatic. No pharyngeal erythema. No t hyromegaly. CARDIOVASCULAR: S1 and S2 present. No murmurs, rubs, or gallops. She does have elevated JVD PULMONARY: Chest is clear to auscultation, no wheezing or crackles. -ABDOMEN: Soft, nontender, nondistended, normoactive bowel sounds. No palpable organomegaly. Beaulieu catheter is in place MUSCULOSKELETAL: No joint swelling or deformity. EXTREMITIES: No cyanosis, clubbing, bilateral pedal edema 2+ pitting bit worse compared to yesterday NEUROLOGICAL: Gross neurological examination did not reveal any focal deficits. SKIN: Patient has multiple unstageable buttock and the decubitus ulcers - Labs CBC & Chem 7: 10/18/19 08:28 10/20/19 06:13 Labs: Abnormal Lab Results - Last 24 Hours (Table) 10/19/19 10/19/19 10/20/19 Range/Units 11:40 20:54 06:13 Sodium 133 L (137-145) mmol/L BUN 29 H (9-20) mg/dL Creatinine 1.35 H (0.66-1.25) mg/dL POC Glucose (mg/dL) 104 H 104 H (75-99) mg/dL Calcium 7.8 L (8.4-10.2) mg/dL Assessment and Plan Plan: Tachycardia and bradycardia syndrome , with A. fib and RVR, patient is on anti-coagulation and patient is presently rate controlled Severe coronary artery disease with stent placement in RCA and LAD on 10/14 Acute on chronic systolic heart failure with ejection fraction 25% patient still has some pedal edema patient has pulmonary edema again patient will restart back on Lasix Chronic kidney disease stage II probably from diabetic nephropathy -Acute renal failure was secondary to diuretics without diuretics patient is going into heart failure patient was started back on diuretics today they were on hold yesterday. -Hyponatremia presently hypervolemic hyponatremia C. diff colitis: Continue with the vancomycin oral still has some diarrhea Atrial fibrillation: Patient is presently rate controlled Diabetes mellitus Hypertension Hyperlipidemia Hypothyroidism History of upper peripheral artery disease Inset/depression, not in active issue History of cardiac valve replacement GERD
--- NOTE | 2019-10-20 10:35 | P.PN ---
Subjective Progress Note Date: 10/19/19 This is a pleasant 64-year-old -[place] gentleman status post mitral valve repair, history of CAD who presented with episode of atrial fibrillation with rapid ventricular response, evidence of non-ST elevation myocardial infarction and worsening left ventricular systolic function. He underwent ca rdiac catheterization and stenting of RCA and LAD. Patient was seen and examined this morning, denied any chest discomfort, breathing is overall stable. Blood pressure 129/50 with a heart rate in the 60s, 98% on 2 L of oxygen. Sodium 133, potassium 3.9, BUN 25, creatinine 1.2. Magnesium 1.5. They're having difficulty getting an IV in the patient, he will be given oral magnesium. Objective - Vital Signs Vital signs: Vital Signs Temp 98.2 F 10/19/19 21:14 Pulse 67 10/20/19 06:00 Resp 16 10/20/19 06:00 BP 118/56 10/20/19 06:00 Pulse Ox 91 L 10/20/19 06:00 Intake & Output 10/19/19 10/20/19 10/20/19 18:59 06:59 18:59 Intake Total 100 0 Output Total 400 200 0 Balance -300 -200 0 Weight 77.5 kg Intake: Oral 100 0 Output: Urine 400 200 0 Stool 0 Other: Voiding Method Indwelling Catheter Indwelling Catheter # Bowel Movements 1 ABP, PAP, CO, CI - Last Documented Arterial Blood Pressure 176/58 - Exam - Exam PHYSICAL EXAMINATION: 64-year-old -[place] gentleman in no acute distress at the time of my examination HEENT: Head is atraumatic, normocephalic. Pupils equal, round. Neck is supple. There is no elevated jugular venous pressure. HEART EXAMINATION: Heart sounds irregular irregular, S1 and S2 with systolic murmur. CHEST EXAMINATION: Lungs reveal crackles to the bases, diminished air entry bilaterally. No chest wall tenderness is noted on palpation or with deep breathing. ABDOMEN: Soft, nontender. Bowel sounds are heard. No organomegaly noted. EXTREMITIES: Evidence of 1+ right sided peripheral edema, patient has a left [id number] amputation . NEUROLOGIC patient is awake, alert and oriented x3. - Labs CBC & Chem 7: 10/18/19 08:28 10/20/19 06:13 Labs: Abnormal Lab Results - Last 24 Hours (Table) 10/19/19 10/19/19 10/20/19 Range/Units 11:40 20:54 06:13 Sodium 133 L (137-145) mmol/L BUN 29 H (9-20) mg/dL Creatinine 1.35 H (0.66-1.25) mg/dL POC Glucose (mg/dL) 104 H 104 H (75-99) mg/dL Calcium 7.8 L (8.4-10.2) mg/dL Assessment and Plan Plan: Assessment and plan: #1 status post stenting of the right artery and left anterior descending artery #2 ischemic cardiomyopathy #3 status post mitral valve repair #4 atrial fibrillation, chronic persistent #5 history of COPD #6 medical debilitation #7 sacral decubitus ulcer #8 systolic congestive heart failure acute on chronic #9 C. diff, currently on vancomycin #10 history of left [id number] amputation Plan We will continue the patient on his current medications, replace his magnesium. Further recommendations to follow. DNP note has been reviewed, I agree with a documented findings and plan of care. Patient was seen and examined.
--- NOTE | 2019-10-20 10:37 | P.PN ---
Subjective Progress Note Date: 10/20/19 This is a pleasant 64-year-old -[place] gentleman status post mitral valve repair, history of CAD who presented with episode of atrial fibrillation with rapid ventricular response, evidence of non-ST elevation myocardial infarction and worsening left ventricular systolic function. He underwent ca rdiac catheterization and stenting of RCA and LAD. Patient was seen and examined this morning, denied any chest discomfort, breathing is overall stable. Blood pressure 129/50 with a heart rate in the 60s, 98% on 2 L of oxygen. Sodium 133, potassium 3.9, BUN 25, creatinine 1.2. Magnesium 1.5. They're having difficulty getting an IV in the patient, he will be given oral magnesium. 10/20/2019 Patient seen and examined this morning, he does have a cough today, is a little more short of breath as well. His chest x-ray from today shows congestive cardiac failure. Objective - Vital Signs Vital signs: Vital Signs Temp 97.9 F 10/20/19 09:00 Pulse 70 10/20/19 09:00 Resp 16 10/20/19 09:00 BP 122/56 10/20/19 09:00 Pulse Ox 92 L 10/20/19 09:00 Intake & Output 10/19/19 10/20/19 10/20/19 18:59 06:59 18:59 Intake Total 100 0 Output Total 400 200 0 Balance -300 -200 0 Weight 77.5 kg Intake: Oral 100 0 Output: Urine 400 200 0 Stool 0 Other: Voiding Method Indwelling Catheter Indwelling Catheter Indwelling Catheter # Bowel Movements 1 ABP, PAP, CO, CI - Last Documented Arterial Blood Pressure 176/58 - Exam - Exam PHYSICAL EXAMINATION: 64-year-old -[place]oven[place] gentleman in no acute distress at the time of my examination HEENT: Head is atraumatic, normocephalic. Pupils equal, round. Neck is supple. There is no elevated jugular venous pressure. HEART EXAMINATION: Heart sounds irregular irregular, S1 and S2 with systolic murmur. CHEST EXAMINATION: Lungs reveal crackles to the bases, diminished air entry bilaterally. No chest wall tenderness is noted on palpation or with deep breathing. ABDOMEN: Soft, nontender. Bowel sounds are heard. No organomegaly noted. EXTREMITIES: Evidence of 1+ right sided peripheral edema, patient has a left [id number] amputation . NEUROLOGIC patient is awake, alert and oriented x3. - Labs CBC & Chem 7: 10/18/19 08:28 10/20/19 06:13 Labs: Abnormal Lab Results - Last 24 Hours (Table) 10/19/19 10/19/19 10/20/19 Range/Units 11:40 20:54 06:13 Sodium 133 L (137-145) mmol/L BUN 29 H (9-20) mg/dL Creatinine 1.35 H (0.66-1.25) mg/dL POC Glucose (mg/dL) 104 H 104 H (75-99) mg/dL Calcium 7.8 L (8.4-10.2) mg/dL Assessment and Plan Plan: Assessment and plan: #1 status post stenting of the right artery and left anterior descending artery #2 ischemic cardiomyopathy #3 status post mitral valve repair #4 atrial fibrillation, chronic persistent #5 history of COPD #6 medical debilitation #7 sacral decubitus ulcer #8 systolic congestive heart failure acute on chronic #9 C. diff, currently on vancomycin #10 history of left [id number] amputation Plan We will start the patient on IV Lasix. Continue to monitor the intake and output along with daily weights and daily lytes BUN and creatinine. DNP note has been reviewed, I agree with a documented findings and plan of care. Patient was seen and examined.
[2019-10-20 11:38] LABS: Glucose,Whole Blood 142 mg/dL (75-99)
[2019-10-20] MEDS: HYDROPHILIC CREAM 180 GM TUBE TOPICAL SCH (12:03)
[2019-10-20] MEDS: FUROSEMIDE 10 MG/ML 2 ML VIAL IV SCH ×2 (12:25→21:12)
[2019-10-20 16:44] LABS: Glucose,Whole Blood 145 mg/dL (75-99)
[2019-10-20] MEDS: DRONABINOL 2.5 MG CAP PO SCH (17:44)
[2019-10-20 20:57] LABS: Glucose,Whole Blood 135 mg/dL (75-99)
[2019-10-20 22:13] VITALS: RESP 18
[2019-10-21 06:09] LABS: Glucose,Whole Blood 119 mg/dL (75-99)
[2019-10-21] MEDS: DRONABINOL 2.5 MG CAP PO SCH (06:26)
[2019-10-21] MEDS: LEVOTHYROXINE 25 MCG TAB PO SCH (06:26)
[2019-10-21] MEDS: CHERRY FLAVOR 60 ML BOTTLE PO SCH ×2 (06:27→12:58)
[2019-10-21] MEDS: VANCOMYCIN ORAL SOLUTION 250 MG/5 ML BOTTLE PO SCH ×2 (06:27→12:57)
--- NOTE | 2019-10-21 09:15 | P.DS ---
Providers Date of admission: 10/10/19 13:03 Attending physician: Jean Stafford MD Consults: 10/10/19 15:59 Consult Physician Routine Consulting Provider: Kevin Fitch Consult Reason/Comments: Tachy/Hans Do you want consulting provider notified?: Already Contacted 10/10/19 18:41 Consult Physician Stat Consulting Provider: Addis James Consult Reason/Comments: ICU management Do you want consulting provider notified?: Already Contacted 10/15/19 11:28 Consult Physician Routine Consulting Provider: [facility] Consult Reason/Comments: Post Interventional patient Do you want consulting provider notified?: Already Contacted Primary care physician: [facility] Course: 64 years old -[place] male, with past medical history of coronary artery disease, atrial fibrillation, COPD, diabetes mellitus, hypertension, hyperlipidemia, hypothyroidism, chronic kidney disease stage III, peripheral artery disease, anxiety/depression, cardiac valve replacement, GERD. He was transferred from [facility] in ICU for tachyarrhythmia found to have low ejection fraction of 25%, and his been followed closely by cardiology team and critical care team, he was intubated temporally and currently he is on room air with oxygen saturation of 97-98%, still still tachycardic of 108-124, blood pressure 109/74. Been afebrile. Creatinine elevated initially came back to normal at 1.0 today, sodium 134, not elevated white cell count at 9.9K, hemoglobin 10.4, platelets low at 64K. 10/15/2019 Patient remains in the ICU, he is totally awake and oriented, looks comfortable. Patient yesterday couldn't get his cardiac cath due to procedure problem, cardiology team will try again today with possible pacemaker/AICD placement. His heart rate looks more stable in the 70s and 80s other than a few PVCs and PACs, That he is hemodynamically stable, he denies any chest pain or dyspnea, he complained of some right foot pain and there is minimal ulceration on the toes months does not look infected, his WBC is 9.8K, hemoglobin 10.4, platelets 62, sodium 135, potassium 3.7 and creatinine 1.13. Ejection fraction 25% He remains on D5 half-normal saline at 50 mL per hour and oral vancomycin for possible C. diff colitis, Lopressor 12.5 mg twice daily was added yesterday and patient tolerated that well. Continue with aspirin 325 mg and Protonix 40 mg twice a day 10/16/2019 Patient remains in the ICU currently, he does not complain from chest pain or dyspnea, fully awake and oriented, no abdominal complaints, no nausea vomiting and is tolerating diet. Yesterday he underwent coronary angiogram showing severe two-vessel disease status post stenting of his right coronary artery with 95% stenosis and left anterior descending artery was 60-70%, status post stents by 2 placement. And patient currently is on aspirin and effient. Patient is counseled about the importance of aggressive therapy and he understands and agrees. His course was complicated last night with A. fib and RVR with heart rate 110 up to 156, 1 time dose of metoprolol 25 mg did not control the related and patient had to be restarted on Cardizem drip at 5 mg currently per cardiology's recommendation, his heart rate is better controlled currently, his heart rate is better controlled this morning at the rate of 69-82. Sugar controlled, creatinine 1.1, sodium 135 he remains on Protonix 40 mg twice a day, oral vancomycin, metoprolol 25 mg twice a day, lisinopril 2.5 g daily and Lasix 20 mg orally twice a day with one 10 dose of 40 mg daily. 10/17/2019 No overnight events patient's creatinine went up from monitor his creatinine will probably repeat chest x-ray tomorrow patient does not appear to be in heart failure exacerbation at this time 10/18/2019 Patient is having significant diarrhea because of which I'm holding of Lasix today possibly will be discharged tomorrow on oral Lasix.she'll be started onQuestran and patient's serum sodium is 134 along with the serum creatinine staying bit higher. 10/19/2019 Patient had history of diarrhea but significant improved serum sodium remains at 133 creatinine has come down minimally. We'll continue to hold off on Lasix today will obtain a chest x-ray tomorrow make sure patient doesn't have any pulmonary edema patient probably can be started on low-dose of Lasix tomorrow. Diarrhea improves. 10/20/2019 Patient's edema sodium remains at 133 patient has increased pulmonary edema because of which patient was started on Lasix is oxygen saturations are cardio Aleta to patient's diarrhea also improved. His serum creatinine remains at 1.35 patient is not eating or drinking well patient will be started on Marinol. - Exam GENERAL: The patient is alert and oriented x3, not in any acute distress. Well developed, well nourished. HEENT: Pupils are round and equally reacting to light. EOMI. No scleral icterus. No conjunctival pallor. Normocephalic, atraumatic. No pharyngeal erythema. No thyromegaly. CARDIOVASCULAR: S1 and S2 present. No murmurs, rubs, or gallops. no elevated JVD PULMONARY: Chest is clear to auscultation, no wheezing or crackles. -ABDOMEN: Soft, nontender, nondistended, normoactive bowel sounds. No palpable organomegaly. Beaulieu catheter is in place MUSCULOSKELETAL: No joint swelling or deformity. EXTREMITIES: No cyanosis, clubbing, bilateral pedal edema 2+ pitting bit worse compared to yesterday NEUROLOGICAL: Gross neurological examination did not reveal any focal deficits. SKIN: Patient has multiple unstageable buttock and the decubitus ulcers Assessment and Plan Plan: Tachycardia and bradycardia syndrome , with A. fib and RVR, patient is on anti- coagulation and patient is presently rate controlled Severe coronary artery disease with stent placement in RCA and LAD on 10/14 Acute on chronic systolic heart failure with ejection fraction 25% . Patient is fairly euvolemic patient does have some chronic pedal edema no JVD today. Patient the also requirements have gone down patient will be discharged on 40 mg in the morning and 20 mg evening Lasix. Chronic kidney disease stage II probably from diabetic nephropathy -Acute renal failure was secondary to diuretics without diuretics patient is going into heart failure patient was started back on diuretics his creatinine is still not at baseline probably his new baseline will be around1.3 -Hyponatremia presently hypervolemic hyponatremia, improved symptoms sodium presently 134 C. diff colitis: patient will continue some more days of oral vancomycin, no diarrhea Atrial fibrillation: Patient is presently rate controlled Diabetes mellitus Hypertension Hyperlipidemia Hypothyroidism History of upper peripheral artery disease Inset/depression, not in active issue History of cardiac valve replacement GERD Plan - Discharge Summary Discharge Rx Participant: Yes New Discharge Prescriptions: New Apixaban [Eliquis] 5 mg PO BID tab Tamsulosin [Flomax] 0.4 mg PO PC-BRKFST cap.er.24h Atorvastatin [Lipitor] 40 mg PO DAILY tab Magnesium Oxide [Mag-Ox] 400 mg PO BID tab Nitroglycerin Sl Tabs [Nitrostat] 0.4 mg SUBLINGUAL Q5M PRN tab PRN Reason: Chest Pain Cholestyramine (with Sugar) [Questran Packet] 4 gm PO TID BETWEEN MEALS PRN packet PRN Reason: Diarrhea Hydrophilic Cream [Triad Cream] 1 applic TOPICAL DAILY applic Vancomycin Oral Solution 250 mg PO Q6HR ml Furosemide [Lasix] 40 mg PO DAILY #10 tablet Furosemide [Lasix] 20 mg PO HS #10 tab Famotidine [Pepcid] 20 mg PO BID #30 tablet Continue FLUoxetine HCL [PROzac] 20 mg PO DAILY Levothyroxine Sodium [Synthroid] 25 mcg PO DAILY Acetaminophen Tab [Tylenol] 650 mg PO Q6HR PRN tab PRN Reason: Fever And/ Or Pain Lisinopril [Zestril] 2.5 mg PO DAILY Allopurinol [Zyloprim] 100 mg PO DAILY Clopidogrel [Plavix] 75 mg PO DAILY Metoprolol Tartrate [Lopressor] 50 mg PO BID HYDROcodone/APAP 10-325MG [[place] 10-325] 1 tab PO QID PRN #10 tab PRN Reason: Pain Changed Ipratropium-Albuterol Nebulize [Duoneb 0.5 mg-3 mg/3 ml Soln] 3 ml INHALATION RT-QID PRN #0 ampul.neb PRN Reason: Shortness Of Breath Or Wheezing Discharge Medication List FLUoxetine HCL [PROzac] 20 mg PO DAILY 03/26/15 [History] Levothyroxine Sodium [Synthroid] 25 mcg PO DAILY 03/26/15 [History] Acetaminophen Tab [Tylenol] 650 mg PO Q6HR PRN tab 10/04/17 [Rx] Allopurinol [Zyloprim] 100 mg PO DAILY 10/10/19 [History] Clopidogrel [Plavix] 75 mg PO DAILY 10/10/19 [History] Lisinopril [Zestril] 2.5 mg PO DAILY 10/10/19 [History] Metoprolol Tartrate [Lopressor] 50 mg PO BID 10/10/19 [History] Apixaban [Eliquis] 5 mg PO BID tab 10/21/19 [Rx] Atorvastatin [Lipitor] 40 mg PO DAILY tab 10/21/19 [Rx] Cholestyramine (with Sugar) [Questran Packet] 4 gm PO TID BETWEEN MEALS PRN packet 10/21/19 [Rx] Famotidine [Pepcid] 20 mg PO BID #30 tablet 10/21/19 [Rx] Furosemide [Lasix] 20 mg PO HS #10 tab 10/21/19 [Rx] Furosemide [Lasix] 40 mg PO DAILY #10 tablet 10/21/19 [Rx] HYDROcodone/APAP 10-325MG [[place] 10-325] 1 tab PO QID PRN #10 tab 10/21/19 [Rx] Hydrophilic Cream [Triad Cream] 1 applic TOPICAL DAILY applic 10/21/19 [Rx] Ipratropium-Albuterol Nebulize [Duoneb 0.5 mg-3 mg/3 ml Soln] 3 ml INHALATION RT-QID PRN #0 ampul.neb 10/21/19 [Rx] Magnesium Oxide [Mag-Ox] 400 mg PO BID tab 10/21/19 [Rx] Nitroglycerin Sl Tabs [Nitrostat] 0.4 mg SUBLINGUAL Q5M PRN tab 10/21/19 [Rx] Tamsulosin [Flomax] 0.4 mg PO PC-BRKFST cap.er.24h 10/21/19 [Rx] Vancomycin Oral Solution 250 mg PO Q6HR ml 10/21/19 [Rx] Follow up Appointment(s)/Referral(s): [facility] [Provider Group] - 1 Week (Please follow up with your [facility] when you are discharged from [facility].) [facility],Card[facility] [NON-STAFF] - (After discharge, you will follow-up with your [facility] [employer] [facility]. Once you have obtained a prescription for cardiac rehab, please call [phone] to set up an evaluation.) Evelio Mcmahon MD [STAFF PHYSICIAN] - 1-2 Days [facility] [NON-STAFF] - Wound Healing,[place] [NON-STAFF] - 1 Week Addis James MD [STAFF PHYSICIAN] - 1 Week ([employer] - please follow up once discharged from [facility].) Ambulatory/Diagnostic Orders: Basic Metabolic Panel [LAB.AMB] Time Frame: 3 Days, Location: None Selected Patient Instructions/Handouts: *Surgery [facility] - After Heart Catheterization - [employer] Instructions, A-fib (Atrial Fibrillation) (DC), Wound Healing and Your Diet (DC), Safe Use of Anticoagulants (DC), Coronary Intravascular Stent Placement (DC) Activity/Diet/Wound Care/Special Instructions: CARDIAC CATH 1. Support your puncture site by applying firm, steady pressure whenever you cough, laugh, sneeze or bear down to have a bowel movement (2-day restriction). 2. Watch for any excessive bruising, active bleeding, a firm knot forming under your skin, extreme tenderness and signs of infection (redness, swelling, fever). 3. Shower daily, do not soak puncture in a tub bath, jacuzzi, pool, hayes etc. for 1 week. This is to prevent risk of infection. 4. Drink plenty of fluids the day of and day after your procedure to flush contrast dye out of your kidneys. 5. Take all medications as directed. Never stop any new medication without your physicians OK. 6. No driving for 2 days after procedure. 7. 10- pound weight lifting restriction for 1 week. 8. Low sodium/low fat diet. 9. Activity limited until follow up appointment with your [facility] [employer] [facility]. In case of any problems, please call [facility] [place] @ [phone].
[2019-10-21 09:56] VITALS: BP 108/54; PULSE 72; TEMP 99.1
[2019-10-21] MEDS: HYDROcodone/APAP 10-325MG 1 EACH TAB PO PRN (10:03)
[2019-10-21] MEDS: LISINOPRIL 2.5 MG TAB PO SCH (10:04)
[2019-10-21] MEDS: FLUoxetine HCL 20 MG CAP PO SCH (10:04)
[2019-10-21] MEDS: MAGNESIUM OXIDE 400 MG TAB PO SCH (10:04)
[2019-10-21] MEDS: FUROSEMIDE 10 MG/ML 2 ML VIAL IV SCH (10:04)
[2019-10-21] MEDS: METOPROLOL TARTRATE 50 MG TAB PO SCH (10:04)
[2019-10-21] MEDS: PANTOPRAZOLE 40 MG TABLET PO SCH (10:04)
[2019-10-21] MEDS: HYDROPHILIC CREAM 180 GM TUBE TOPICAL SCH (10:05)
[2019-10-21] MEDS: ATORVASTATIN 40 MG TAB PO SCH (10:05)
[2019-10-21] MEDS: CLOPIDOGREL 75 MG TAB PO SCH (10:05)
[2019-10-21] MEDS: TAMSULOSIN 0.4 MG CAP.ER.24H PO SCH (10:05)
[2019-10-21] MEDS: APIXABAN 5 MG TAB PO SCH (10:05)
[2019-10-21] MEDS: CHOLESTYRAMINE (WITH SUGAR) 4 GM PACKET PO SCH (10:07)
--- NOTE | 2019-10-21 10:13 | XR ---
EXAMINATION TYPE: XR chest 1V DATE OF EXAM: 10/21/2019 COMPARISON: 10/20/2019 HISTORY: Shortness of breath. Pulmonary edema. TECHNIQUE: Single frontal view of the chest is obtained. FINDINGS: The degree of interstitial pulmonary interstitial prominence appears similar to the prior of 10/19/2018 with more focal nodularity of the right lower lung, possible overlying nipple shadow is stable. Cardiomediastinal silhouette is enlarged with post surgical change of cardiac valvular annulu s plasty. No new pleural effusion or pneumothorax. No acute osseous pathology. IMPRESSION: 1. Degree of interstitial prominence throughout and is similar to the prior. No new pleural effusions . Therefore interstitial pneumonia should be considered versus interstitial pulmonary edema. 2. Again nodular density over the right lung base could relate to an overlying nipple shadow or nodul e and is stable from the prior.
--- NOTE | 2019-10-21 10:32 | P.PN ---
Subjective Progress Note Date: 10/21/19 This is a pleasant 64-year-old -[place] gentleman status post mitral valve repair, history of CAD who presented with episode of atrial fibrillation with rapid ventricular response, evidence of non-ST elevation myocardial infarction and worsening left ventricular systolic function. He underwent ca rdiac catheterization and stenting of RCA and LAD. Patient was seen and examined this morning, denied any chest discomfort, breathing is overall stable. Blood pressure 129/50 with a heart rate in the 60s, 98% on 2 L of oxygen. Sodium 133, potassium 3.9, BUN 25, creatinine 1.2. Magnesium 1.5. They're having difficulty getting an IV in the patient, he will be given oral magnesium. 10/20/2019 Patient seen and examined this morning, he does have a cough today, is a little more short of breath as well. His chest x-ray from today shows congestive cardiac failure. 10/21/2019 Patient was seen and examined this morning, overall doing well. Hemodynamically stable. Chest x-ray shows interstitial prominence similar to prior no new effusion. Anticipating discharge home today. Objective - Vital Signs Vital signs: Vital Signs Temp 99.1 F 10/21/19 08:00 Pulse 72 10/21/19 08:00 Resp 18 10/21/19 08:00 BP 108/54 10/21/19 08:00 Pulse Ox 96 10/21/19 08:00 Intake & Output 10/20/19 10/21/19 10/21/19 18:59 06:59 18:59 Intake Total 1200 540 420 Output Total 575 650 Balance 625 -110 420 Weight 77.5 kg Intake: Oral 1200 540 420 Output: Urine 575 650 Stool 0 Other: Voiding Method Indwelling Catheter Indwelling Catheter ABP, PAP, CO, CI - Last Documented Arterial Blood Pressure 176/58 - Exam - Exam PHYSICAL EXAMINATION: 64-year-old -[place] gentleman in no acute distress at the time of my examination HEENT: Head is atraumatic, normocephalic. Pupils equal, round. Neck is supple. There is no elevated jugular venous pressure. HEART EXAMINATION: Heart sounds irregular irregular, S1 and S2 with systolic murmur. CHEST EXAMINATION: Lungs reveal crackles to the bases, diminished air entry bila terally. No chest wall tenderness is noted on palpation or with deep breathing. ABDOMEN: Soft, nontender. Bowel sounds are heard. No organomegaly noted. EXTREMITIES: Evidence of 1+ right sided peripheral edema, patient has a left [id number] amputation . NEUROLOGIC patient is awake, alert and oriented x3. - Labs CBC & Chem 7: 10/18/19 08:28 10/20/19 06:13 Labs: Abnormal Lab Results - Last 24 Hours (Table) 10/20/19 10/20/19 10/20/19 Range/Units 11:37 16:42 20:55 POC Glucose (mg/dL) 142 H 145 H 135 H (75-99) mg/dL 10/21/19 Range/Units 06:07 POC Glucose (mg/dL) 119 H (75-99) mg/dL Assessment and Plan Plan: Assessment and plan: #1 status post stenting of the right artery and left anterior descending artery #2 ischemic cardiomyopathy #3 status post mitral valve repair #4 atrial fibrillation, chronic persistent #5 history of COPD #6 medical debilitation #7 sacral decubitus ulcer #8 systolic congestive heart failure acute on chronic #9 C. diff, currently on vancomycin #10 history of left [id number] amputation Plan We will discontinue the IV Lasix and start the patient on Lasix 40 by mouth twice a day. From our perspective he may be able to be discharged and follow-up in the office post discharge. DNP note has been reviewed, I agree with a documented findings and plan of care. Patient was seen and examined.
[2019-10-21 12:10] LABS: Glucose,Whole Blood 201 mg/dL (75-99)
[2019-10-21] MEDS ORDERED: FUROSEMIDE 40 MG TAB PO SCH (16:00)
== END 2019-10-21 13:24 | DRG 246 ==
LOC: 2SICU 13:03 → 3SCARD 10-17 22:18
PROVIDERS: ADMIT Internal Medicine; ATTEND Internal Medicine
PROC: 4A133J1 Monitoring of Arterial Pulse, Peripheral, Percutaneous Approach (ICD-10-PCS; 2019-10-10)
PROC: 5A1945Z Respiratory Ventilation, 24-96 Consecutive Hours (ICD-10-PCS; 2019-10-10)
PROC: 4A133B1 Monitoring of Arterial Pressure, Peripheral, Percutaneous Approach (ICD-10-PCS; 2019-10-10)
PROC: 02HV33Z Insertion of Infusion Device into Superior Vena Cava, Percutaneous Approach (ICD-10-PCS; 2019-10-10)
PROC: 0BH17EZ Insertion of Endotracheal Airway into Trachea, Via Natural or Artificial Opening (ICD-10-PCS; 2019-10-10)
PROC: 027135Z Dilation of Coronary Artery, Two Arteries with Two Drug-eluting Intraluminal Devices, Percutaneous Approach (ICD-10-PCS; principal; 2019-10-15 10:00)
PROC: 4A023N7 Measurement of Cardiac Sampling and Pressure, Left Heart, Percutaneous Approach (ICD-10-PCS; 2019-10-15 10:00)
PROC: B2111ZZ Fluoroscopy of Multiple Coronary Arteries using Low Osmolar Contrast (ICD-10-PCS; 2019-10-15 10:00)
DX: I21.4 Non-ST elevation (NSTEMI) myocardial infarction (principal); J96.01 Acute respiratory failure with hypoxia; I50.23 Acute on chronic systolic (congestive) heart failure; R57.0 Cardiogenic shock; I13.0 Hypertensive heart and chronic kidney disease with heart failure and stage 1 through stage 4 chronic kidney disease, or unspecified chronic kidney disease; E87.4 Mixed disorder of acid-base balance; I48.19 Other persistent atrial fibrillation; A04.72 Enterocolitis due to Clostridium difficile, not specified as recurrent; N17.9 Acute kidney failure, unspecified; I47.2 Ventricular tachycardia; E87.1 Hypo-osmolality and hyponatremia; F17.200 Nicotine dependence, unspecified, uncomplicated; F32.9 Major depressive disorder, single episode, unspecified; F41.9 Anxiety disorder, unspecified; I08.0 Rheumatic disorders of both mitral and aortic valves; I25.10 Atherosclerotic heart disease of native coronary artery without angina pectoris; E03.9 Hypothyroidism, unspecified; E11.22 Type 2 diabetes mellitus with diabetic chronic kidney disease; E11.51 Type 2 diabetes mellitus with diabetic peripheral angiopathy without gangrene; E78.5 Hyperlipidemia, unspecified; K21.9 Gastro-esophageal reflux disease without esophagitis; E11.649 Type 2 diabetes mellitus with hypoglycemia without coma; I49.5 Sick sinus syndrome; I25.5 Ischemic cardiomyopathy; N18.3 Chronic kidney disease, stage 3 (moderate); J44.9 Chronic obstructive pulmonary disease, unspecified; D69.6 Thrombocytopenia, unspecified; D64.9 Anemia, unspecified; R53.81 Other malaise; E11.622 Type 2 diabetes mellitus with other skin ulcer; L89.312 Pressure ulcer of right buttock, stage 2; T50.2X5A Adverse effect of carbonic-anhydrase inhibitors, benzothiadiazides and other diuretics, initial encounter; L89.152 Pressure ulcer of sacral region, stage 2; Z79.01 Long term (current) use of anticoagulants; I25.2 Old myocardial infarction; Z79.82 Long term (current) use of aspirin; Z79.890 Hormone replacement therapy; Z79.02 Long term (current) use of antithrombotics/antiplatelets; Z89.612 Acquired absence of left leg above knee; Z83.3 Family history of diabetes mellitus; Z95.2 Presence of prosthetic heart valve; Z79.899 Other long term (current) drug therapy; Z95.5 Presence of coronary angioplasty implant and graft; Z82.49 Family history of ischemic heart disease and other diseases of the circulatory system
CPT/HCPCS: 36410; 70450; 71045; 76937; 80048; 80053; 81001; 82272; 82805; 83605; 83735; 84100; 84443; 84484; 85025; 85027; 85610; 85730; 87040; 87324; 93306; 93458; 94002; 94003

== ENCOUNTER 2019-11-06 00:34 | Inpatient (IN) | payer MEDICARE, OTHER ==
[2019-11-06] MEDS ORDERED: PIPERACILLIN-TAZOBACTAM 3.375 GM in SODIUM CHLORIDE 0.9% 100 ML IVPB STA (00:55)
[2019-11-06] MEDS ORDERED: ACETAMINOPHEN TAB 325 MG TAB PO STA (00:57)
[2019-11-06] MEDS ORDERED: SODIUM CHLORIDE 0.9% 500 ML 500 ML IV SCH (01:00)
--- NOTE | 2019-11-06 01:32 | XR ---
EXAMINATION TYPE: XR chest 1V DATE OF EXAM: 11/06/2019 COMPARISON: 10/21/2019 HISTORY: Fever TECHNIQUE: FINDINGS: Heart is enlarged. There are sternal wires. There is cardiac valve surgery. There is minima l pulmonary congestion. There are chest leads. IMPRESSION: Cardiomegaly. There is improvement in the pulmonary edema compared to last exam that sugg ests resolving congestive heart failure.
--- NOTE | 2019-11-06 01:50 | ED ---
Recheck HPI - General Source: EMS Mode of arrival: EMS Limitations: physical limitation <Sheri Martinez - Last Filed: 11/06/19 03:50> <Dayna Kaufman - Last Filed: 11/06/19 04:31> - General Chief Complaint: Recheck/Abnormal Lab/Rx Stated Complaint: abnormal labs Time Seen by Provider: 11/06/19 00:44 - History of Present Illness Initial Comments: 64-year-old male with significant past medical history including anemia, recent treatment of c. diff, test 11/04 negative) atrial fibrillation, chronic kidney disease, coronary artery disease peripheral artery disease diabetes hypertension hyperlipidemia myocardial infarction left below-knee amputation presenting to the ER today for cc of abnormal laboratory studies. Patient states that his primary care provider performed routine labs as well as occult testing, which resulted in low Hgb and elevated potassium. Pt denies any symptoms. Patient denies leg swelling, CP, SOB, cough, URI symptoms, nausea, vomiting. Patient denies loose or bloody stools. Patient states he was just told to come here. Patient currently undergoing treatment for wound of the left foot (on heel and dorsum of foot). Patient has no other complaints. Upon arrival patient appears well there is no signs of acute distress. (Sheri Martinez) - Related Data Home Medications Medication Instructions Recorded Confirmed FLUoxetine HCL [PROzac] 20 mg PO DAILY 03/26/15 10/10/19 Levothyroxine Sodium [Synthroid] 25 mcg PO DAILY 03/26/15 10/10/19 Allopurinol [Zyloprim] 100 mg PO DAILY 10/10/19 10/10/19 Clopidogrel [Plavix] 75 mg PO DAILY 10/10/19 10/10/19 Lisinopril [Zestril] 2.5 mg PO DAILY 10/10/19 10/10/19 Metoprolol Tartrate [Lopressor] 50 mg PO BID 10/10/19 10/10/19 Previous Rx's Medication Instructions Recorded Acetaminophen Tab [Tylenol] 650 mg PO Q6HR PRN tab 10/04/17 Apixaban [Eliquis] 5 mg PO BID tab 10/21/19 Atorvastatin [Lipitor] 40 mg PO DAILY tab 10/21/19 Cholestyramine (with Sugar) 4 gm PO TID BETWEEN MEALS PRN 10/21/19 [Questran Packet] packet Famotidine [Pepcid] 20 mg PO BID #30 tablet 10/21/19 Furosemide [Lasix] 20 mg PO HS #10 tab 10/21/19 Furosemide [Lasix] 40 mg PO DAILY #10 tablet 10/21/19 HYDROcodone/APAP 10-325MG [[place] 1 tab PO QID PRN #10 tab 10/21/19 10-325] Hydrophilic Cream [Triad Cream] 1 applic TOPICAL DAILY applic 10/21/19 Ipratropium-Albuterol Nebulize 3 ml INHALATION RT-QID PRN #0 10/21/19 [Duoneb 0.5 mg-3 mg/3 ml Soln] ampul.neb Magnesium Oxide [Mag-Ox] 400 mg PO BID tab 10/21/19 Nitroglycerin Sl Tabs [Nitrostat] 0.4 mg SUBLINGUAL Q5M PRN tab 10/21/19 Tamsulosin [Flomax] 0.4 mg PO PC-BRKFST cap.er.24h 10/21/19 Vancomycin Oral Solution 250 mg PO Q6HR ml 10/21/19 Allergies Allergy/AdvReac Type Severity Reaction Status Date / Time No Known Allergies Allergy Verified 11/06/19 00:53 Review of Systems ROS Other: All systems not noted in ROS Statement are negative. <Sheri Martinez L - Last Filed: 11/06/19 03:50> ROS Other: All systems not noted in ROS Statement are negative. <Dayna Kaufman P - Last Filed: 11/06/19 04:31> ROS Statement: Those systems with pertinent positive or pertinent negative responses have been documented in the HPI. Past Medical History Past Medical History: Atrial Fibrillation, Coronary Artery Disease (CAD), COPD, Diabetes Mellitus, GERD/Reflux, Hyperlipidemia, Hypertension, Myocardial Infarction ([place]), Thyroid Disorder, Vascular Disorder Additional Past Medical History / Comment(s): Other Hx: Chronic kidney disease stage III, hypothyroid, PAD, diverticular dx, past ETOH abuse. Anxiety/Depression Last Myocardial Infarction Date:: 09/2011 History of Any Multi-Drug Resistant Organisms: C-DIFF MDRO Source:: Sep 2019 Past Surgical History: Cardiac Valve Replacement, Heart Catheterization With Stent Additional Past Surgical History / Comment(s): Mitral Valve replacement, Left above the knee amputation, Femoral-Popliteal Bypass. Endarterectomy Past Anesthesia/Blood Transfusion Reactions: No Reported Reaction Date of Last Stent Placement:: 09/2011 Past Psychological History: Anxiety, Depression Smoking Status: Former smoker Past Alcohol Use History: Occasional Past Drug Use History: Marijuana - Past Family History Mother Family Medical History: Diabetes Mellitus, Deep Vein Thrombosis (DVT) <Komal Martinezbrandi Pino - Last Filed: 11/06/19 03:50> General Exam Limitations: physical limitation <Sheri Martinez - Last Filed: 11/06/19 03:50> - General Exam Comments Initial Comments: General: The patient is awake and alert, in no distress Eye: +3 mm pupils are equal, round and reactive to light, extra-ocular movements are intact. No nystagmus. There is normal conjunctiva bilaterally. No signs of icterus. Ears, nose, mouth and throat: There are moist mucous membranes and no oral lesions. Neck: The neck is supple, there is no tenderness or JVD. Cardiovascular: There is a regular rate and rhythm. Murmur audible, no rub or gallop is appreciated. Respiratory: Lungs are clear to auscultation, respirations are non-labored, breath sounds are equal. No wheezes, stridor, rales, or rhonchi. Gastrointestinal: Soft, non-distended, non-tender abdomen without masses or organomegaly noted. There is no rebound or guarding present. Musculoskeletal: Left below knee amputation. Normal ROM, no tenderness. Strength 5/5. Sensation intact. Radial pulses equal bilaterally 2+. Neurological: A&O x 3. CN II-XII intact grossly, There are no obvious motor or sensory deficits. Coordination appears grossly intact. Speech is normal. Skin: Skin is warm and dry and no rashes. Ulceration, with skin avulsions of the heel and dorsum of the right foot. Psychiatric: Cooperative, appropriate mood & affect, normal judgment. (Sheri Martinez) Course Vital Signs 11/06/19 11/06/19 11/06/19 00:50 01:05 01:20 Temperature 102.6 F H 101.9 F H 101.9 F H Pulse Rate 77 76 Respiratory 15 16 16 Rate Blood Pressure 102/62 120/82 115/81 O2 Sat by Pulse 100 Oximetry 11/06/19 11/06/19 11/06/19 02:00 03:00 03:34 Temperature 102.3 F H 100.9 F H Pulse Rate 84 78 67 Respiratory 16 16 16 Rate Blood Pressure 109/68 93/52 O2 Sat by Pulse Oximetry 11/06/19 04:20 Temperature 99.9 F H Pulse Rate 66 Respiratory 16 Rate Blood Pressure 94/70 O2 Sat by Pulse Oximetry Medical Decision Making - Lab Data Result diagrams: 11/06/19 02:23 11/06/19 02:23 <Sheri Martinez - Last Filed: 11/06/19 03:50> - Lab Data Result diagrams: 11/06/19 02:23 11/06/19 02:23 <Dayna Kaufman - Last Filed: 11/06/19 04:31> - Medical Decision Making 65 male presenting today for abnormal labs. Patient febrile on arrival. Patient denies any focalizing symptoms, CXR and urine no acute findings. Abdominal exam benign, Denies rectal bleeding or dark stools. Hgb 6.3 this is a significant change given he was 7.1 yesterday with + occult. Concern for GI bleed. (Sheri Martinez) - Lab Data Lab Results 11/06/19 11/06/19 11/06/19 Range/Units 02:05 02:23 02:23 WBC 10.0 (3.8-10.6) k/uL RBC 2.49 L (4.30-5.90) m/uL Hgb 6.3 L* (13.0-17.5) gm/dL Hct 21.2 L (39.0-53.0) % MCV 85.2 (80.0-100.0) fL MCH 25.2 (25.0-35.0) pg MCHC 29.5 L (31.0-37.0) g/dL RDW 17.1 H (11.5-15.5) % Plt Count 370 (150-450) k/uL Neutrophils % 69 % Lymphocytes % 24 % Monocytes % 2 % Eosinophils % 2 % Basophils % 0 % Neutrophils # 6.8 (1.3-7.7) k/uL Lymphocytes # 2.4 (1.0-4.8) k/uL Monocytes # 0.2 (0-1.0) k/uL Eosinophils # 0.2 (0-0.7) k/uL Basophils # 0.0 (0-0.2) k/uL Hypochromasia Marked Anisocytosis Slight PT 13.6 H (9.0-12.0) sec INR 1.4 H (<1.2) APTT 34.3 H (22.0-30.0) sec Sodium (137-145) mmol/L Potassium (3.5-5.1) mmol/L Chloride (98-107) mmol/L Carbon Dioxide (22-30) mmol/L Anion Gap mmol/L BUN (9-20) mg/dL Creatinine (0.66-1.25) mg/dL Est GFR (CKD-EPI)AfAm (>60 ml/min/1.73 sqM) Est GFR (CKD-EPI)NonAf (>60 ml/min/1.73 sqM) Glucose (74-99) mg/dL Plasma Lactic Acid Jorge (0.7-2.0) mmol/L Calcium (8.4-10.2) mg/dL Total Bilirubin (0.2-1.3) mg/dL AST (17-59) U/L ALT (4-49) U/L Alkaline Phosphatase (38-126) U/L Total Protein (6.3-8.2) g/dL Albumin (3.5-5.0) g/dL Urine Color Yellow Urine Appearance Clear (Clear) Urine pH 7.5 (5.0-8.0) Ur Specific [place] 1.015 (1.001-1.035) Urine Protein Trace H (Negative) Urine Glucose (UA) Negative (Negative) Urine Ketones Negative (Negative) Urine Blood Negative (Negative) Urine Nitrite Negative (Negative) Urine Bilirubin Negative (Negative) Urine Urobilinogen <2.0 (<2.0) mg/dL Ur Leukocyte Esterase Negative (Negative) 11/06/19 11/06/19 Range/Units 02:23 02:23 WBC (3.8-10.6) k/uL RBC (4.30-5.90) m/uL Hgb (13.0-17.5) gm/dL Hct (39.0-53.0) % MCV (80.0-100.0) fL MCH (25.0-35.0) pg MCHC (31.0-37.0) g/dL RDW (11.5-15.5) % Plt Count (150-450) k/uL Neutrophils % % Lymphocytes % % Monocytes % % Eosinophils % % Basophils % % Neutrophils # (1.3-7.7) k/uL Lymphocytes # (1.0-4.8) k/uL Monocytes # (0-1.0) k/uL Eosinophils # (0-0.7) k/uL Basophils # (0-0.2) k/uL Hypochromasia Anisocytosis PT (9.0-12.0) sec INR (<1.2) APTT (22.0-30.0) sec Sodium 133 L (137-145) mmol/L Potassium 4.8 (3.5-5.1) mmol/L Chloride 103 (98-107) mmol/L Carbon Dioxide 24 (22-30) mmol/L Anion Gap 6 mmol/L BUN 22 H (9-20) mg/dL Creatinine 1.20 (0.66-1.25) mg/dL Est GFR (CKD-EPI)AfAm 75 (>60 ml/min/1.73 sqM) Est GFR (CKD-EPI)NonAf 65 (>60 ml/min/1.73 sqM) Glucose 102 H (74-99) mg/dL Plasma Lactic Acid Jorge 1.0 (0.7-2.0) mmol/L Calcium 7.9 L (8.4-10.2) mg/dL Total Bilirubin 0.5 (0.2-1.3) mg/dL AST 97 H (17-59) U/L ALT 30 (4-49) U/L Alkaline Phosphatase 84 (38-126) U/L Total Protein 5.5 L (6.3-8.2) g/dL Albumin 2.3 L (3.5-5.0) g/dL Urine Color Urine Appearance (Clear) Urine pH (5.0-8.0) Ur Specific [place] (1.001-1.035) Urine Protein (Negative) Urine Glucose (UA) (Negative) Urine Ketones (Negative) Urine Blood (Negative) Urine Nitrite (Negative) Urine Bilirubin (Negative) Urine Urobilinogen (<2.0) mg/dL Ur Leukocyte Esterase (Negative) Disposition Is patient prescribed a controlled substance at d/c from ED?: No Time of Disposition: 03:30 Decision to Admit Reason: Admit from EC Decision Date: 11/06/19 Decision Time: 03:30 <Sheri Martinez - Last Filed: 11/06/19 03:50> <Dayna Kaufman - Last Filed: 11/06/19 04:31> Clinical Impression: Anemia, Foot ulcer, Creatinine elevation, Hx of chronic kidney disease, Infected decubitus ulcer Disposition: ADMITTED IP TO THIS [facility] Condition: Serious Referrals: Ignacio Gutierrez DO [Primary Care Provider] - 1-2 days
[2019-11-06] MEDS: SODIUM CHLORIDE 0.9% 1,000 ML IV SCH ×3 (02:04→20:43)
[2019-11-06 02:29] LABS: Appearance,Urine Clear (Clear); Bilirubin,Urine Negative (Negative); Blood,Urine Negative (Negative); Color,Urine Yellow; Glucose,Urine (UA) Negative (Negative); Ketones,Urine Negative (Negative); Leukocyte Esterase,Urine Negative (Negative); Nitrite,Urine Negative (Negative); PH, Urine 7.5 (5.0-8.0); Protein,Urine Trace (Negative); Specific Gravity,Urine 1.015 (1.001-1.035); Urobilinogen,Urine <2.0 mg/dL (<2.0)
[2019-11-06 03:08] LABS: INR 1.4 (<1.2); Partial Thromboplastin Time 34.3 sec (22.0-30.0); Prothrombin Time 13.6 sec (9.0-12.0)
[2019-11-06 03:13] LABS: Anisocytosis Slight; Basophils % (A) 0 %; Eosinophils # (A) 0.2 k/uL (0-0.7); Eosinophils % (A) 2 %; HCT 21.2 % (39.0-53.0); Hypochromasia Marked; Lymphocytes # (A) 2.4 k/uL (1.0-4.8); Lymphocytes % (A) 24 %; MCH 25.2 pg (25.0-35.0); MCHC 29.5 g/dL (31.0-37.0); MCV 85.2 fL (80.0-100.0); Mean Platelet Volume 8.3; Monocytes # (A) 0.2 k/uL (0-1.0); Monocytes % (A) 2 %; Neutrophils # (A) 6.8 k/uL (1.3-7.7); Neutrophils % (A) 69 %; Platelet Count 370 k/uL (150-450); RBC 2.49 m/uL (4.30-5.90); RDW 17.1 % (11.5-15.5)
[2019-11-06 03:15] LABS: Albumin 2.3 g/dL (3.5-5.0); Calcium 7.9 mg/dL (8.4-10.2); Potassium 4.8 mmol/L (3.5-5.1); Total Bilirubin 0.5 mg/dL (0.2-1.3); Total Protein 5.5 g/dL (6.3-8.2)
[2019-11-06 03:30] LABS: HGB 6.3 gm/dL (13.0-17.5)
[2019-11-06] MEDS ORDERED: SODIUM CHLORIDE 0.9% 500 ML 500 ML IV ONE (03:30)
[2019-11-06] MEDS ORDERED: ACETAMINOPHEN TAB 325 MG TAB PO PRN (03:47)
[2019-11-06] MEDS ORDERED: NALOXONE 0.4 MG/ML 1 ML VIAL IV PRN (03:47)
[2019-11-06 06:03] LABS: Glucose,Whole Blood 104 mg/dL (75-99)
--- NOTE | 2019-11-06 10:28 | P.CONS ---
History of Present Illness - Reason for Consult Consult date: 11/06/19 Wound care - History of Present Illness This is a 64-year-old -[place] male who resides at [facility] being seen by the wound care center on for nonhealing ulcerations to sacrum and second digit of right foot. Patient has been seen multiple times with the wound care center outpatient recommendations have not been completed. Patient does not use any products in the outpatient setting. Patient has ulcerations to the left gluteus that is unstageable pressure ulcer, right gluteus of stage II breast ulcer, and a stage II pressure ulcer to the right digit of the right foot. Patient has medical history significant for atrial fibrillation, coronary artery disease, COPD, diabetes, acid reflux, hyperlipidemia, hypertension, hypothyroidism, peripheral artery disease, [id number] amputation left lower extremity. Patient is a smoker. Review of Systems Review Of Systems: Constitutional: No fever, no chills, no night sweats. No weight change. No weakness, fatigue or lethargy. No daytime sleepiness. Integumentary:reports wounds, no lesions. No rash or pruritus. No unusual bruising. No change in hair or nails. Past Medical History Past Medical History: Atrial Fibrillation, Coronary Artery Disease (CAD), COPD, Diabetes Mellitus, GERD/Reflux, Hyperlipidemia, Hypertension, Myocardial Infarction ([place]), Thyroid Disorder, Vascular Disorder Additional Past Medical History / Comment(s): Other Hx: Chronic kidney disease stage III, hypothyroid, PAD, diverticular dx, past ETOH abuse. Anxi ety/Depression Last Myocardial Infarction Date:: 09/2011 History of Any Multi-Drug Resistant Organisms: C-DIFF Year Discovered:: 10/10/2019 MDRO Source:: Sep 2019 Past Surgical History: Cardiac Valve Replacement, Heart Catheterization With Stent Additional Past Surgical History / Comment(s): Mitral Valve replacement, Left above the knee amputation, Femoral-Popliteal Bypass. Endarterectomy Past Anesthesia/Blood Transfusion Reactions: No Reported Reaction Date of Last Stent Placement:: 10/2019 Past Psychological History: Anxiety, Depression Additional Psychological History / Comment(s): Pt resides alone. He uses a cane to ambulate and has a L foot medi shoe. He does not drive. He gets to [facility] with his cousin. Infestation of bed bugs noted at patients apartment. Smoking Status: Former smoker Past Alcohol Use History: Occasional Additional Past Alcohol Use History / Comment(s): Pt started smoking in 1977 and is a ppd smoker. He states he drinks less than 14 drinks per week but used to drink heavier. Past Drug Use History: Marijuana - Past Family History Mother Family Medical History: Diabetes Mellitus, Deep Vein Thrombosis (DVT) Medications and Allergies Home Medications Medication Instructions Recorded Confirmed Type FLUoxetine HCL [PROzac] 20 mg PO DAILY 03/26/15 11/06/19 History Levothyroxine Sodium [Synthroid] 25 mcg PO DAILY 03/26/15 11/06/19 History Acetaminophen Tab [Tylenol] 650 mg PO Q6HR PRN tab 10/04/17 11/06/19 Rx Allopurinol [Zyloprim] 100 mg PO DAILY 10/10/19 11/06/19 History Clopidogrel [Plavix] 75 mg PO DAILY 10/10/19 11/06/19 History Lisinopril [Zestril] 2.5 mg PO DAILY 10/10/19 11/06/19 History Metoprolol Tartrate [Lopressor] 50 mg PO BID 10/10/19 11/06/19 History Apixaban [Eliquis] 5 mg PO BID tab 10/21/19 11/06/19 Rx Atorvastatin [Lipitor] 40 mg PO DAILY tab 10/21/19 11/06/19 Rx Cholestyramine (with Sugar) 4 gm PO TID BETWEEN MEALS PRN 10/21/19 11/06/19 Rx [Questran Packet] packet Famotidine [Pepcid] 20 mg PO BID #30 tablet 10/21/19 11/06/19 Rx Furosemide [Lasix] 20 mg PO HS #10 tab 10/21/19 11/06/19 Rx Furosemide [Lasix] 40 mg PO DAILY #10 tablet 10/21/19 11/06/19 Rx HYDROcodone/APAP 10-325MG [[place] 1 tab PO QID PRN #10 tab 10/21/19 11/06/19 Rx 10-325] Hydrophilic Cream [Triad Cream] 1 applic TOPICAL DAILY applic 10/21/19 11/06/19 Rx Ipratropium-Albuterol Nebulize 3 ml INHALATION RT-QID PRN #0 10/21/19 11/06/19 Rx [Duoneb 0.5 mg-3 mg/3 ml Soln] ampul.neb Magnesium Oxide [Mag-Ox] 400 mg PO BID tab 10/21/19 11/06/19 Rx Nitroglycerin Sl Tabs [Nitrostat] 0.4 mg SUBLINGUAL Q5M PRN tab 10/21/19 11/06/19 Rx Tamsulosin [Flomax] 0.4 mg PO PC-BRKFST cap.er.24h 10/21/19 11/06/19 Rx Allergies Allergy/AdvReac Type Severity Reaction Status Date / Time No Known Allergies Allergy Verified 11/06/19 10:03 Physical Exam Vitals: Vital Signs Temp Pulse Pulse Resp BP BP Pulse Ox 11/06/19 08:00 98.3 F 61 16 123/56 100 11/06/19 06:06 98.5 F 86 18 126/87 96 11/06/19 05:00 99.5 F 66 18 121/67 11/06/19 04:45 71 16 124/89 11/06/19 04:30 73 16 124/89 11/06/19 04:20 99.9 F H 66 16 94/70 11/06/19 03:34 100.9 F H 67 16 11/06/19 03:00 78 16 93/52 11/06/19 02:00 102.3 F H 84 16 109/68 11/06/19 01:20 101.9 F H 16 115/81 11/06/19 01:05 101.9 F H 76 16 120/82 11/06/19 00:50 102.6 F H 77 15 102/62 100 Intake and Output 11/05/19 11/06/19 11/06/19 22:59 06:59 14:59 Other: Voiding Method Indwelling Catheter Indwelling Catheter Weight 81.647 kg Physical exam: General Appearance: Alert, cooperative, no distress, appears stated age. Skin: Left gluteus unstageable ulcer with large amount of slough and necrotic tissue, minimal granulation seen, periwound shows maceration wound edge is attached no tunneling or undermining noted. Right gluteus ulceration stage II pressure ulcer with fatty layer exposure, medium Slough minimal granulation seen in the wound bed, wound margins attached to wound bed. Right lower extremity second digit pressure ulcer with fatty layer exposure, medium Slough and nonviable tissue noted, minimal granulation seen in the wound bed no tunneling or undermining noted. all other Skin color, texture, tugor decreased no rashes or lesions. Neurologic: Alert oriented x3 Results CBC & Chem 7: 11/06/19 02:23 11/06/19 02:23 Labs: Abnormal Lab Results - Last 24 Hours (Table) 11/06/19 11/06/19 11/06/19 Range/Units 02:05 02:23 02:23 RBC 2.49 L (4.30-5.90) m/uL Hgb 6.3 L* (13.0-17.5) gm/dL Hct 21.2 L (39.0-53.0) % MCHC 29.5 L (31.0-37.0) g/dL RDW 17.1 H (11.5-15.5) % PT (9.0-12.0) sec INR (<1.2) APTT (22.0-30.0) sec Sodium (137-145) mmol/L BUN (9-20) mg/dL Glucose (74-99) mg/dL POC Glucose (mg/dL) (75-99) mg/dL Calcium (8.4-10.2) mg/dL AST (17-59) U/L Total Protein (6.3-8.2) g/dL Albumin (3.5-5.0) g/dL Urine Protein Trace H (Negative) Crossmatch See Detail 11/06/19 11/06/19 11/06/19 Range/Units 02:23 02:23 06:01 RBC (4.30-5.90) m/uL Hgb (13.0-17.5) gm/dL Hct (39.0-53.0) % MCHC (31.0-37.0) g/dL RDW (11.5-15.5) % PT 13.6 H (9.0-12.0) sec INR 1.4 H (<1.2) APTT 34.3 H (22.0-30.0) sec Sodium 133 L (137-145) mmol/L BUN 22 H (9-20) mg/dL Glucose 102 H (74-99) mg/dL POC Glucose (mg/dL) 104 H (75-99) mg/dL Calcium 7.9 L (8.4-10.2) mg/dL AST 97 H (17-59) U/L Total Protein 5.5 L (6.3-8.2) g/dL Albumin 2.3 L (3.5-5.0) g/dL Urine Protein (Negative) Crossmatch Assessment and Plan (1) Diabetic foot ulcer associated with type 2 diabetes mellitus, with fat layer exposed Current Visit: Yes Status: Acute Code(s): E11.621 - TYPE 2 DIABETES MELLITUS WITH FOOT ULCER; L97.502 - NON-PRS CHRONIC ULCER OTH PRT UNSP FOOT W FAT LAYER EXPOSED SNOMED Code(s): 1164790640718 (2) Pressure ulcer of left buttock, unstageable Current Visit: No Status: Acute Code(s): L89.320 - PRESSURE ULCER OF LEFT BUTTOCK, UNSTAGEABLE SNOMED Code(s): 748021318 (3) Pressure ulcer of right buttock, stage 2 Current Visit: No Status: Acute Code(s): L89.312 - PRESSURE ULCER OF RIGHT BUTTOCK, STAGE 2 SNOMED Code(s): 825422671 (4) Type 2 diabetes mellitus with other skin ulcer Current Visit: No Status: Acute Code(s): E11.622 - TYPE 2 DIABETES MELLITUS WITH OTHER SKIN ULCER; L98.499 - NON-PRESSURE CHRONIC ULCER OF SKIN OF SITES W U NSP SEVERITY SNOMED Code(s): 785503119 Plan: Right foot second digit ulceration: Apply honey alginate, saline moistened gauze, dry gauze, rolled gauze and secured paper tape. Left and right gluteus ulceration: Apply honey alginate, saline moistened gauze, ABD, utilize Skin- Prep, and applied paper tape. Change dressing Monday. Outpatient wound care would be beneficial for the patient this can be performed at the wound care center or at the extended care facility with their wound care provider. Utilize surface algorithm. Turn every 2 hours. Thank you kindly for the consultation. Any questions please contact the wound care center. DNP note has been reviewed and discussed with Dr. Doan and the impression and plan of care has been directed as dictated.
[2019-11-06 11:58] LABS: Glucose,Whole Blood 97 mg/dL (75-99)
--- NOTE | 2019-11-06 13:28 | CONS ---
CONSULTATION DATE OF SERVICE: 11/06/2019 REASON FOR CONSULTATION: Anemia. HISTORY OF PRESENT ILLNESS: The patient is a 64-year-old male with history of atrial fibrillation on Eliquis, chronic kidney disease, history of coronary artery disease and peripheral vascular disease, hypertension and hyperlipidemia, came into the emergency room for evaluation of severe anemia. The patient apparently went to see Dr. Gutierrez and had routine labs done. Hemoglobin was low with elevated potassium and he was advised to go to the emergency room. He was also told that he had Hemoccult-positive stool. Since being in the hospital, patient has not been complaining of any symptoms. He denies any abdominal pain. Reports no nausea, vomiting. No rectal bleeding or melena. He recalls having a colonoscopy by Dr. Medina in 2014. His Eliquis has been on hold since this morning. PAST MEDICAL HISTORY: Significant for hypertension, hyperlipidemia, atrial fibrillation, diabetes mellitus, coronary artery disease, chronic kidney disease stage 3 and past history of alcohol use. PAST SURGICAL HISTORY: Cardiac valve replacement, cardiac catheterization with stent placement, history of femoral popliteal bypass surgery and carotid endarterectomy. SOCIAL HISTORY: Former smoker. No alcohol use. MEDICATIONS: Medications at home include Nitrostat, Questran, Flomax, Lopressor, magnesium oxide, Zestril, Synthroid, [place], Lasix, Pepcid, Prozac, Plavix, Lipitor, Eliquis, Zyloprim, and Tylenol. ALLERGIES: None. REVIEW OF SYSTEMS: CARDIOPULMONARY: No chest pain or shortness of breath. GENITOURINARY: No dysuria or hematuria. MUSCULOSKELETAL: Unremarkable. SKIN: Unremarkable. ENDOCRINE: Unremarkable. PSYCHIATRIC: Unremarkable. NEUROLOGY: Unremarkable. ENT/VISION: Unremarkable. CONSTITUTIONAL: No fever, chills, night sweats. No weight loss. PHYSICAL EXAMINATION: On physical examination, he appears comfortable, no apparent distress. Vital signs are stable. Blood pressure is 170/71, pulse rate is 73, temperature 98.5. HEENT: Examination unremarkable. Conjunctivae pink. Sclerae anicteric. Oral cavity no lesions. NECK: No JVD or lymph node enlargement. CHEST: Clear to auscultation. HEART: Regular rate and rhythm. ABDOMEN: Soft. Bowel sounds are positive. No organomegaly. EXTREMITIES: No pedal edema. EXTREMITIES: Right below-knee amputation noted. NEURO: He is alert and oriented x3. No focal deficits. LABS: Labs done at the time of admission the hospital: Hemoglobin was 6.3, WBC 10, platelets are normal. Basic metabolic panel revealed a BUN of 22, creatinine 1.2. The rest of the labs are within normal limits. AST, ALT 97 and 30 respectively. Alkaline phosphatase is normal. INR is 1.4. IMPRESSION: 1. Severe symptomatic anemia with a hemoglobin of 6.3 g/dL requiring a unit of blood transfusion. Clinically no evidence of active ongoing bleeding most likely dealing with occult gastrointestinal blood loss. Patient was noted to have a Hemoccult- positive stool. 2. History of atrial fibrillation on Eliquis which is currently on hold. 3. History of coronary artery disease. 4. History of mitral valve replacement. 5. Hypertension. 6. Diabetes mellitus. 7. Hyperlipidemia. RECOMMENDATIONS: 1. Obtain iron studies. 2. Hold Eliquis. 3. Agree with PRBC transfusion. 4. I had a lengthy discussion with the patient regarding proceeding with EGD, colonoscopy during this hospitalization and he is agreeable to it. He is scheduled for these procedures tomorrow. In the meantime, we will keep him on a clear liquid diet and we will follow with you closely. Thank you for this consultation. MMODL / IJN: [id number] /
[2019-11-06 16:40] LABS: Glucose,Whole Blood 104 mg/dL (75-99)
[2019-11-06] MEDS: PANTOPRAZOLE 40 MG/10 ML VIAL IVP SCH ×2 (17:00→23:28)
[2019-11-06] MEDS ORDERED: PEG 3350-NA SULF,BICARB,CL/KCL 4,000 ML BOTTLE PO ONE (17:00)
[2019-11-06 17:59] LABS: Anisocytosis Slight; HCT 27.3 % (39.0-53.0); Hypochromasia Marked; MCH 26.3 pg (25.0-35.0); MCHC 30.9 g/dL (31.0-37.0); MCV 85.1 fL (80.0-100.0); Mean Platelet Volume 8.2; Platelet Count 321 k/uL (150-450); Poikilocytosis Moderate; RBC 3.21 m/uL (4.30-5.90); WBC 14.7 k/uL (3.8-10.6)
[2019-11-06 18:00] LABS: HGB 8.4 gm/dL (13.0-17.5)
[2019-11-06] MEDS ORDERED: NITROGLYCERIN SL TABS 0.4 MG TAB SUBLINGUAL PRN (19:47)
[2019-11-06] MEDS ORDERED: CHOLESTYRAMINE (WITH SUGAR) 4 GM PACKET PO PRN (19:53)
[2019-11-06] MEDS ORDERED: ALBUTEROL NEBULIZED 2.5 MG/3 ML INHALATION PRN (19:56)
--- NOTE | 2019-11-06 20:12 | P.HPIM ---
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 Presents with GI bleed where he was sent from his primary care doctor Dr. Gutierrez, patient has mild dizziness on and off, however he denies brayan blood per rectum, no abdominal pain, no nausea vomiting, no ear pain, no chest pain or dyspnea. Vital signs stable. On admission his hemoglobin was 6.3, he got one unit of blood transfusion and blood hemoglobin went up to 8.4, platelets are normal at 321, WBCs 10.0 K on admission, INR 1.4, sodium 133, potassium 4.8, creatinine 1.2, sugar control, liver enzymes mildly elevated AST at 97 while ALT is normal at 30. UA is still suspicious of infection. Chest x-ray: No acute process, EKG showing atrial fibrillation at 77 with QTC of 504, no significant ST-T changes, On admission patient was started on Protonix intravenously, permanent waver evaluated the patient and plan for him to go for EGD/colonoscopy tomorrow while keeping Eliquis and Plavix on hold Review of Systems CONSTITUTIONAL: No fever, no malaise, no fatigue. HEENT: No recent visual problems or hearing problems. Denied any sore throat. CARDIOVASCULAR: No orthopnea, PND, no palpitations, no syncope. PULMONARY: No shortness of breath, no cough, no hemoptysis. GASTROINTESTINAL: No diarrhea, no nausea, no vomiting, no abdominal pain. Normoactive bowel sounds. NEUROLOGICAL: No headaches, no weakness, no numbness. HEMATOLOGICAL: Denies any bleeding or petechiae. GENITOURINARY: Denies any burning micturition, frequency, or urgency. MUSCULOSKELETAL/RHEUMATOLOGICAL: Denies any joint pain, swelling, or any muscle pain. ENDOCRINE: Denies any polyuria or polydipsia. Past Medical History Past Medical History: Atrial Fibrillation, Coronary Artery Disease (CAD), COPD, Diabetes Mellitus, GERD/Reflux, Hyperlipidemia, Hypertension, Myocardial Infarction ([place]), Thyroid Disorder, Vascular Disorder Additional Past Medical History / Comment(s): Other Hx: Chronic kidney disease stage III, hypothyroid, PAD, diverticular dx, past ETOH abuse. Anxiety/Depression Last Myocardial Infarction Date:: 09/2011 History of Any Multi-Drug Resistant Organisms: C-DIFF Date of last positivie culture/infection: 10/10/2019 MDRO Source:: Sep 2019 Past Surgical History: Cardiac Valve Replacement, Heart Catheterization With Lonnie nt Additional Past Surgical History / Comment(s): Mitral Valve replacement, Left above the knee amputation, Femoral-Popliteal Bypass. Endarterectomy Past Anesthesia/Blood Transfusion Reactions: No Reported Reaction Date of Last Stent Placement:: 10/2019 Past Psychological History: Anxiety, Depression Additional Psychological History / Comment(s): Pt resides alone. He uses a cane to ambulate and has a L foot medi shoe. He does not drive. He gets to appts with his cousin. Infestation of bed bugs noted at patients apartment. Smoking Status: Former smoker Past Alcohol Use History: Occasional Additional Past Alcohol Use History / Comment(s): Pt started smoking in 1977 and is a ppd smoker. He states he drinks less than 14 drinks per week but used to drink heavier. Past Drug Use History: Marijuana - Past Family History Mother Family Medical History: Diabetes Mellitus, Deep Vein Thrombosis (DVT) Medications and Allergies Home Medications Medication Instructions Recorded Confirmed Type FLUoxetine HCL [PROzac] 20 mg PO DAILY 03/26/15 11/06/19 History Levothyroxine Sodium [Synthroid] 25 mcg PO DAILY 03/26/15 11/06/19 History Acetaminophen Tab [Tylenol] 650 mg PO Q6HR PRN tab 10/04/17 11/06/19 Rx Allopurinol [Zyloprim] 100 mg PO DAILY 10/10/19 11/06/19 History Clopidogrel [Plavix] 75 mg PO DAILY 10/10/19 11/06/19 History Lisinopril [Zestril] 2.5 mg PO DAILY 10/10/19 11/06/19 History Metoprolol Tartrate [Lopressor] 50 mg PO BID 10/10/19 11/06/19 History Apixaban [Eliquis] 5 mg PO BID tab 10/21/19 11/06/19 Rx Atorvastatin [Lipitor] 40 mg PO DAILY tab 10/21/19 11/06/19 Rx Cholestyramine (with Sugar) 4 gm PO TID BETWEEN MEALS PRN 10/21/19 11/06/19 Rx [Questran Packet] packet Famotidine [Pepcid] 20 mg PO BID #30 tablet 10/21/19 11/06/19 Rx Furosemide [Lasix] 20 mg PO HS #10 tab 10/21/19 11/06/19 Rx Furosemide [Lasix] 40 mg PO DAILY #10 tablet 10/21/19 11/06/19 Rx HYDROcodone/APAP 10-325MG [[place] 1 tab PO QID PRN #10 tab 10/21/19 11/06/19 Rx 10-325] Hydrophilic Cream [Triad Cream] 1 applic TOPICAL DAILY applic 10/21/19 11/06/19 Rx Ipratropium-Albuterol Nebulize 3 ml INHALATION RT-QID PRN #0 10/21/19 11/06/19 Rx [Duoneb 0.5 mg-3 mg/3 ml Soln] ampul.neb Magnesium Oxide [Mag-Ox] 400 mg PO BID tab 10/21/19 11/06/19 Rx Nitroglycerin Sl Tabs [Nitrostat] 0.4 mg SUBLINGUAL Q5M PRN tab 10/21/1908/26 Rx Tamsulosin [Flomax] 0.4 mg PO PC-BRKFST cap.er.24h 10/21/19 11/06/19 Rx Allergies Allergy/AdvReac Type Severity Reaction Status Date / Time No Known Allergies Allergy Verified 11/06/19 10:03 Physical Exam Vitals: Vital Signs Temp Pulse Pulse Resp BP BP Pulse Ox 11/06/19 16:12 95 11/06/19 16:00 98.4 F 85 16 121/62 100 11/06/19 14:41 98.4 F 87 16 125/53 100 11/06/19 12:06 98.5 F 73 16 117/71 100 11/06/19 11:55 98.3 F 76 16 125/63 100 11/06/19 11:25 98.5 F 73 16 117/71 100 11/06/19 11:15 98.6 F 74 16 115/65 100 11/06/19 08:00 98.3 F 61 16 123/56 100 11/06/19 06:06 98.5 F 86 18 126/87 96 11/06/19 05:00 99.5 F 66 18 121/67 11/06/19 04:45 71 16 124/89 04/01/20 04:30 73 16 124/89 11/06/19 04:20 99.9 F H 66 16 94/70 11/06/19 03:34 100.9 F H 67 16 11/06/19 03:00 78 16 93/52 11/06/19 02:00 102.3 F H 84 16 109/68 11/06/19 01:20 101.9 F H 16 115/81 11/06/19 01:05 101.9 F H 76 16 120/82 11/06/19 00:50 102.6 F H 77 15 102/62 100 Intake and Output 11/06/19 11/06/19 11/06/19 06:59 14:59 22:59 Intake Total 310 Output Total 675 Balance -365 Intake: Blood Product 310 Rc As-3 Unit 310 [id number] Output: Urine 675 Other: Voiding Method Indwelling Catheter Indwelling Catheter Indwelling Catheter Weight 81.647 kg 81.647 kg GENERAL: The patient is alert and oriented x3, not in any acute distress. Well developed, well nourished. HEENT: Pupils are round and equally reacting to light. EOMI. No scleral icterus. No conjunctival pallor. Normocephalic, atraumatic. No pharyngeal erythema. No thyromegaly. CARDIOVASCULAR: S1 and S2 present. No murmurs, rubs, or gallops. PULMONARY: Chest is clear to auscultation, no wheezing or crackles. ABDOMEN: Soft, nontender, nondistended, normoactive bowel sounds. No palpable organomegaly. MUSCULOSKELETAL: No joint swelling or deformity. EXTREMITIES: No cyanosis, clubbing, or pedal edema. NEUROLOGICAL: Gross neurological examination did not reveal any focal deficits. SKIN: No rashes. No petechiae Results CBC & Chem 7: 11/06/19 17:05 11/06/19 02:23 Labs: Abnormal Lab Results - Last 24 Hours (Table) 11/06/19 11/06/19 11/06/19 Range/Units 02:05 02:23 02:23 RBC 2.49 L (4.30-5.90) m/uL Hgb 6.3 L* (13.0-17.5) gm/dL Hct 21.2 L (39.0-53.0) % MCHC 29.5 L (31.0-37.0) g/dL RDW 17.1 H (11.5-15.5) % PT (9.0-12.0) sec INR (<1.2) APTT (22.0-30.0) sec Sodium (137-145) mmol/L BUN (9-20) mg/dL Glucose (74-99) mg/dL POC Glucose (mg/dL) (75-99) mg/dL Calcium (8.4-10.2) mg/dL AST (17-59) U/L Total Protein (6.3-8.2) g/dL Albumin (3.5-5.0) g/dL Urine Protein Trace H (Negative) Crossmatch See Detail 11/06/19 11/06/19 11/06/19 Range/Units 02:23 02:23 06:01 RBC (4.30-5.90) m/uL Hgb (13.0-17.5) gm/dL Hct (39.0-53.0) % MCHC (31.0-37.0) g/dL RDW (11.5-15.5) % PT 13.6 H (9.0-12.0) sec INR 1.4 H (<1.2) APTT 34.3 H (22.0-30.0) sec Sodium 133 L (137-145) mmol/L BUN 22 H (9-20) mg/dL Glucose 102 H (74-99) mg/dL POC Glucose (mg/dL) 104 H (75-99) mg/dL Calcium 7.9 L (8.4-10.2) mg/dL AST 97 H (17-59) U/L Total Protein 5.5 L (6.3-8.2) g/dL Albumin 2.3 L (3.5-5.0) g/dL Urine Protein (Negative) Crossmatch 11/06/19 Range/Units 16:39 RBC (4.30-5.90) m/uL Hgb (13.0-17.5) gm/dL Hct (39.0-53.0) % MCHC (31.0-37.0) g/dL RDW (11.5-15.5) % PT (9.0-12.0) sec INR (<1.2) APTT (22.0-30.0) sec Sodium (137-145) mmol/L BUN (9-20) mg/dL Glucose (74-99) mg/dL POC Glucose (mg/dL) 104 H (75-99) mg/dL Calcium (8.4-10.2) mg/dL AST (17-59) U/L Total Protein (6.3-8.2) g/dL Albumin (3.5-5.0) g/dL Urine Protein (Negative) Crossmatch Thrombosis Risk Factor Assmnt - Choose All That Apply Each Risk Factor Represents 2 Points: Age 61-74 years Thrombosis Risk Factor Assessment Total Risk Factor Score: 2 Thrombosis Risk Factor Assessment Level: Low Risk Assessment and Plan Assessment: Acute GI bleed Acute blood loss anemia Chronic atrial fibrillation on Eliquis at home Diabetes mellitus Chronic kidney disease stage II secondary to diabetes mellitus Samina edema Hypertension History of coronary artery disease Benign prostatic hypertrophy History of Peripheral artery disease History of anxiety and depression, no connective tissue Plan: This is a pleasant 64 years old male who presents with GI bleeds, continue with IV Protonix, hold Plavix and Eliquis till cleared by GI team, patient is followed closely by permanent waver, and he will need EGD/colonoscopy Labs and medication were reviewed.. Continue same treatment. Continue with symptomatic treatment. Resume home medication. Monitor lytes and vitals. DVT and GI prophylaxis. Further recommendations of the clinical course of the patient DVT prophylaxis: No anticoagulation in view of GI bleeds GI Prophylaxis: Protonix Prognosis is guarded
[2019-11-06] MEDS: HYDROcodone/APAP 10-325MG 1 EACH TAB PO SCH (20:42)
[2019-11-06] MEDS: FAMOTIDINE 20 MG TAB PO SCH (20:43)
[2019-11-06] MEDS: MAGNESIUM OXIDE 400 MG TAB PO SCH (20:43)
[2019-11-06] MEDS: METOPROLOL TARTRATE 25 MG TAB PO SCH (20:43)
[2019-11-06 20:49] LABS: Glucose,Whole Blood 102 mg/dL (75-99)
[2019-11-07] MEDS: SODIUM CHLORIDE 0.9% 1,000 ML IV SCH ×2 (04:55→21:13)
[2019-11-07] MEDS: LEVOTHYROXINE 25 MCG TAB PO SCH (05:59)
[2019-11-07 06:25] LABS: Glucose,Whole Blood 115 mg/dL (75-99)
[2019-11-07] MEDS ORDERED: PROPOFOL 10 MG/ML 20 ML VIAL IV ONE (10:19)
[2019-11-07] MEDS ORDERED: LIDOCAINE 1% INJ 10MG/ML (20 ML MDV) ONE (10:19)
[2019-11-07] MEDS ORDERED: fentaNYL (PF) 50 MCG/ML 2 ML AMP ONE (10:19)
--- NOTE | 2019-11-07 10:38 | P.PCN ---
Date of Procedure: 11/07/19 Procedure(s) Performed: Brief history: Patient is a pleasant -[place] male admitted hospital with severe symptomatic anemia and hemoglobin of 6.6 g/dL. Requiring 2 units of blood transfusion. He has history of A. fib and has been on a Eliquis which is currently on hold. He is scheduled for an elective upper endoscopy as well as colonoscopy as a part of evaluation of severe symptomatic anemia and Hemoccult- positive stool. Procedure performed: Esophagogastroduodenoscopy Attempted Colonoscopy Preoperative diagnosis: Severe symptomatic anemia and Hemoccult-positive stool Anesthesia: MAC Procedure: After informed consent was obtained from the patient was brought into the endoscopy unit and IV sedation was administered by anesthesia under continuous monitoring. Initially upper endoscopy was done. The Olympus GF 160 video endoscope was inserted inserted into the mouth and esophagus intubated without any difficulty and was gradually advanced into the stomach and duodenum and carefully examined. The bulb and second part of the duodenum appeared normal. The scope was then withdrawn into the stomach adequately insufflated with air and upon careful examination the antrum and body, cardia and fundus appeared normal. The scope was then withdrawn into the esophagus. Small sliding Hiatal hernia noted. The GE junction was located at 40 cm to the incisors. It appeared regular with no erythema erosions or ulcerations. Rest of the esophagus appeared normal. Patient tolerated the procedure well. At this time the patient continued to remain sedation. Initial digital rectal examination was normal. Olympus CF 160 video colonoscope was then inserted into the rectum and gradually advanced to the cecum without any difficulty. Careful examination was performed as the scope was gradually being withdrawn. The prep was excellent. The cecum, ascending colon, transverse colon, descending colon, sigmoid colon and rectum appeared normal. Retroflexion was performed in the rectum and no lesions were noted. Patient tolerated the procedure well. Impression: 1. Upper endoscopy revealed small hiatal hernia but no evidence of esophagitis or peptic ulcer disease or angiectasia 2. Colonoscopy revealed poor prep in the rectum with solid stool and hence procedure was terminated Recommendations: Findings of this examination were discussed with the patient.. He'll be started on clear liquid diet. If he is agreeable will plan a repeat colonoscopy tomorrow.
[2019-11-07] MEDS ORDERED: IV FLUID CONTINUATION 200 ML IV ONE (10:46)
[2019-11-07 11:46] LABS: Glucose,Whole Blood 96 mg/dL (75-99)
[2019-11-07] MEDS: HYDROcodone/APAP 10-325MG 1 EACH TAB PO SCH ×3 (12:43→21:13)
[2019-11-07] MEDS: TAMSULOSIN 0.4 MG CAP.ER.24H PO SCH (12:43)
[2019-11-07] MEDS: MAGNESIUM OXIDE 400 MG TAB PO SCH ×2 (12:43→21:12)
[2019-11-07] MEDS: LISINOPRIL 2.5 MG TAB PO SCH (12:44)
[2019-11-07] MEDS: FLUoxetine HCL 20 MG CAP PO SCH (12:44)
[2019-11-07] MEDS: FUROSEMIDE 40 MG TAB PO SCH (12:44)
[2019-11-07] MEDS: METOPROLOL TARTRATE 25 MG TAB PO SCH ×2 (12:44→21:12)
[2019-11-07] MEDS: FAMOTIDINE 20 MG TAB PO SCH ×2 (12:44→21:12)
[2019-11-07] MEDS: ATORVASTATIN 40 MG TAB PO SCH (12:44)
[2019-11-07] MEDS: ALLOPURINOL 100 MG TAB PO SCH (12:44)
[2019-11-07] MEDS: PANTOPRAZOLE 40 MG/10 ML VIAL IVP SCH ×2 (12:45→21:11)
--- NOTE | 2019-11-07 13:49 | P.PN ---
Subjective This is a pleasant 64 years old -[place] male with past medical history of atrial fibrillation on Eliquis and coronary artery disease on Plavix home COPD, diabetes mellitus, GERD, hyperlipidemia, hypertension, hypothyroidism, chronic kidney disease stage II mostly related to diabetic nephropathy, peripheral artery disease, anxiety/depression, alcohol abuse, BPH. Presents with GI bleed where he was sent from his primary care doctor Dr. Gutierrez, patient has mild dizziness on and off, however he denies brayan blood per rectum, no abdominal pain, no nausea vomiting, no ear pain, no chest pain or dyspnea. Vital signs stable. On admission his hemoglobin was 6.3, he got one unit of blood transfusion and blood hemoglobin went up to 8.4, platelets are normal at 321, WBCs 10.0 K on admission, INR 1.4, sodium 133, potassium 4.8, creatinine 1.2, sugar control, liver enzymes mildly elevated AST at 97 while ALT is normal at 30. UA is still suspicious of infection. Chest x-ray: No acute process, EKG showing atrial fibrillation at 77 with QTC of 504, no significant ST-T changes, On admission patient was started on Protonix intravenously, pathology manager evaluated the patient and plan for him to go for EGD/colonoscopy tomorrow while keeping Eliquis and Plavix on hold 11/07/2019 Patient had EGD and colonoscopy today, his line and the floor Little drowsy from the procedure, abdominal examination looks soft. His vitals looks stable. His hemoglobin went up post transfusion to 8.4, keep monitoring his hemoglobin today, sugar is controlled. EGD did not show lesion explained to patient presentation, colonoscopy was terminated because of poor preparation Aspirin and Plavix remain on hold Review of systems CONSTITUTIONAL: No fever, no malaise, no fatigue. HEENT: No recent visual problems or hearing problems. Denied any sore throat. CARDIOVASCULAR: No orthopnea, PND, no palpitations, no syncope. PULMONARY: No shortness of breath, no cough, no hemoptysis. NEUROLOGICAL: No headaches, no weakness, no numbness. HEMATOLOGICAL: Denies any bleeding or petechiae. GENITOURINARY: Denies any burning micturition, frequency, or urgency. MUSCULOSKELETAL/RHEUMATOLOGICAL: Denies any joint pain, swelling, or any muscle pain. ENDOCRINE: Denies any polyuria or polydipsia. Active Medications Generic Name Dose Route Start Last Admin Trade Name Freq PRN Reason Stop Dose Admin Acetaminophen 650 mg 11/06/19 03:47 Tylenol Tab PO Q6HR PRN Mild Pain or Fever > 100.5 Hydrocodone Bitart/Acetaminophen 1 each 11/06/19 22:00 11/07/19 12:43 [place] 10 PO Not Given TID [facility] Albuterol Sulfate 2.5 mg 11/06/19 19:56 11/07/19 07:27 Ventolin Nebulized INHALATION 2.5 mg RT-TID PRN Administration Shortness Of Breath Or Wheezing Allopurinol 100 mg 11/07/19 09:00 11/07/19 12:44 Zyloprim PO Not Given DAILY [facility] Atorvastatin Calcium 40 mg 11/07/19 09:00 11/07/19 12:44 Lipitor PO Not Given DAILY [facility] Cholestyramine Resin 4 gm 11/06/19 19:53 Questran PO TID BETWEEN MEALS PRN Diarrhea Famotidine 20 mg 11/06/19 21:00 11/07/19 12:44 Pepcid PO Not Given BID [facility] Fluoxetine HCl 20 mg 11/07/19 09:00 11/07/19 12:44 Prozac PO Not Given DAILY [facility] Furosemide 40 mg 11/07/19 09:00 11/07/19 12:44 Lasix PO Not Given DAILY [facility] Sodium Chloride 1,000 mls @ 75 mls/hr 11/06/19 01:00 11/07/19 04:55 Saline 0.9% IV Not Given .[id number] [facility] Levothyroxine Sodium 25 mcg 11/07/19 06:30 11/07/19 05:59 Synthroid PO 25 mcg 0630 [facility] Administration Lisinopril 2.5 mg 11/07/19 09:00 11/07/19 12:44 Zestril PO Not Given DAILY [facility] Magnesium Oxide 400 mg 11/06/19 21:00 11/07/19 12:43 Mag-Ox PO Not Given BID [facility] Metoprolol Tartrate 25 mg 11/06/19 21:00 11/07/19 12:44 Lopressor PO Not Given BID [facility] Naloxone HCl 0.2 mg 11/06/19 03:47 Narcan IV Q2M PRN Opioid Reversal Nitroglycerin 0.4 mg 11/06/19 19:47 Nitrostat SUBLINGUAL Q5M PRN Chest Pain Pantoprazole Sodium 40 mg 11/06/19 10:15 11/07/19 12:45 Protonix IVP Not Given BID [facility] Polyethylene Glycol/Electrolytes 4,000 ml 11/07/19 15:00 Golytely Lavage PO 11/07/19 15:01 ONCE ONE Tamsulosin HCl 0.4 mg 11/07/19 08:30 11/07/19 12:43 Flomax PO Not Given PC-BRKFST [facility] Objective - Vital Signs Vital signs: Vital Signs Temp 98.7 F 11/07/19 04:00 Pulse 78 11/07/19 07:45 Resp 18 11/07/19 04:00 BP 148/72 11/07/19 04:00 Pulse Ox 95 11/07/19 04:00 Intake & Output 11/06/19 11/07/19 11/07/19 18:59 06:59 18:59 Intake Total 310 175 150 Output Total 675 800 Balance -365 -625 150 Weight 81.647 kg 82.6 kg Intake: IV 150 Intake, IV Titration 175 Amount Piperacillin-Tazobactam 3 100 .375 gm In Sodium Chloride 0.9% 100 ml @ 200 mls/hr IVPB ONCE STA Rx#:[id number] Sodium Chloride 0.9% 1, 75 000 ml @ 75 mls/hr IV . [id number] [facility] Rx#:[id number] Blood Product 310 Rc As-3 Unit 310 [id number] Output: Urine 675 800 Other: Voiding Method Indwelling Catheter Indwelling Catheter Indwelling Catheter # Bowel Movements 3 - Exam GENERAL: The patient is alert and oriented x3, not in any acute distress. Well developed, well nourished. HEENT: Pupils are round and equally reacting to light. EOMI. No scleral icterus. No conjunctival pallor. Normocephalic, atraumatic. No pharyngeal erythema. No thyromegaly. CARDIOVASCULAR: S1 and S2 present. No murmurs, rubs, or gallops. PULMONARY: Chest is clear to auscultation, no wheezing or crackles. ABDOMEN: Soft, nontender, nondistended, normoactive bowel sounds. No palpable organomegaly. -MUSCULOSKELETAL: No joint swelling or deformity. Sacral pressure ulcer, stage II. Status post left lower extremity amputation EXTREMITIES: No cyanosis, clubbing, or pedal edema. NEUROLOGICAL: Gross neurological examination did not reveal any focal deficits. SKIN: No rashes. no petechiae. - Labs CBC & Chem 7: 11/06/19 17:05 11/06/19 02:23 Labs: Abnormal Lab Results - Last 24 Hours (Table) 11/06/19 11/06/19 11/06/19 Range/Units 02:23 16:39 17:05 WBC 14.7 H (3.8-10.6) k/uL RBC 3.21 L (4.30-5.90) m/uL Hgb 8.4 L D (13.0-17.5) gm/dL Hct 27.3 L (39.0-53.0) % MCHC 30.9 L (31.0-37.0) g/dL RDW 17.0 H (11.5-15.5) % POC Glucose (mg/dL) 104 H (75-99) mg/dL Crossmatch See Detail 11/06/19 11/07/19 Range/Units 20:45 06:23 WBC (3.8-10.6) k/uL RBC (4.30-5.90) m/uL Hgb (13.0-17.5) gm/dL Hct (39.0-53.0) % MCHC (31.0-37.0) g/dL RDW (11.5-15.5) % POC Glucose (mg/dL) 102 H 115 H (75-99) mg/dL Crossmatch Microbiology - Last 24 Hours (Table) 11/06/19 02:23 Blood Culture - Preliminary Blood No Growth after 24 hours Assessment and Plan Assessment: Acute GI bleed Acute blood loss anemia Chronic atrial fibrillation on Eliquis at home Diabetes mellitus Chronic kidney disease stage II secondary to diabetes mellitus Samina Hypertension History of coronary artery disease Benign prostatic hypertrophy History of Peripheral artery disease History of anxiety and depression, no connective tissue Plan: This is a pleasant 64 years old male who presents with GI bleeds, continue with IV Protonix, hold Plavix and Eliquis till cleared by GI team, patient is followed closely by pathology manager, his colonoscopy was terminated because of low preparation. We will follow with GI team recommendation Labs and medication were reviewed.. Continue same treatment. Continue with symptomatic treatment. Resume home medication. Monitor lytes and vitals. DVT and GI prophylaxis. Further recommendations of the clinical course of the pat ient DVT prophylaxis: No anticoagulation in view of GI bleeds GI Prophylaxis: Protonix Prognosis is guarded
[2019-11-07] MEDS ORDERED: PEG 3350-NA SULF,BICARB,CL/KCL 4,000 ML BOTTLE PO ONE (15:00)
[2019-11-07 15:26] LABS: Anisocytosis Slight; HCT 25.7 % (39.0-53.0); Hypochromasia Marked; MCH 26.6 pg (25.0-35.0); MCHC 31.3 g/dL (31.0-37.0); Mean Platelet Volume 8.6; Platelet Count 321 k/uL (150-450); Poikilocytosis Moderate; RBC 3.02 m/uL (4.30-5.90); WBC 11.9 k/uL (3.8-10.6)
[2019-11-07 16:37] LABS: Glucose,Whole Blood 92 mg/dL (75-99)
[2019-11-07 20:11] LABS: Glucose,Whole Blood 114 mg/dL (75-99)
[2019-11-08 06:49] LABS: Glucose,Whole Blood 102 mg/dL (75-99)
[2019-11-08] MEDS: LEVOTHYROXINE 25 MCG TAB PO SCH ×2 (08:59→10:59)
[2019-11-08] MEDS: TAMSULOSIN 0.4 MG CAP.ER.24H PO SCH ×2 (09:01→10:58)
[2019-11-08] MEDS: ALLOPURINOL 100 MG TAB PO SCH ×2 (09:01→10:57)
[2019-11-08] MEDS: FUROSEMIDE 40 MG TAB PO SCH ×2 (09:02→10:58)
[2019-11-08] MEDS: FAMOTIDINE 20 MG TAB PO SCH ×3 (09:02→22:57)
[2019-11-08] MEDS: FLUoxetine HCL 20 MG CAP PO SCH ×2 (09:02→10:57)
[2019-11-08] MEDS: ATORVASTATIN 40 MG TAB PO SCH ×2 (09:02→10:57)
[2019-11-08] MEDS: PANTOPRAZOLE 40 MG/10 ML VIAL IVP SCH ×3 (09:03→22:57)
[2019-11-08] MEDS: MAGNESIUM OXIDE 400 MG TAB PO SCH ×3 (09:03→22:57)
[2019-11-08] MEDS: METOPROLOL TARTRATE 25 MG TAB PO SCH ×3 (09:03→22:57)
[2019-11-08] MEDS: LISINOPRIL 2.5 MG TAB PO SCH ×2 (09:03→10:58)
[2019-11-08] MEDS: HYDROcodone/APAP 10-325MG 1 EACH TAB PO SCH ×4 (09:03→22:57)
[2019-11-08 10:25] LABS: Anisocytosis Slight; HGB 8.7 gm/dL (13.0-17.5); Hypochromasia Marked; MCH 26.1 pg (25.0-35.0); Mean Platelet Volume 8.6; Platelet Count 290 k/uL (150-450); Poikilocytosis Slight; RBC 3.33 m/uL (4.30-5.90); RDW 17.3 % (11.5-15.5); WBC 10.7 k/uL (3.8-10.6)
--- NOTE | 2019-11-08 11:00 | PN ---
PROGRESS NOTE DATE OF SERVICE: 11/08/2019 Patient is a 64-year-old -[place] male admitted to hospital with severe symptomatic anemia and hemoglobin of 6.3, requiring 2 units of blood transfusion. His hemoglobin today is 8 g/dL. He had an attempted EGD colonoscopy yesterday. Upper endoscopy showed a healing gastric ulcer and small hiatal hernia but colonoscopy could not be completed because of poor prep. He was scheduled for a colonoscopy today, but patient refused to drink GoLYTELY and hence the procedure is canceled. I explained to him in detail and he insists that he does not want to have any colonoscopy at this time. In the meantime, he is doing well and he denies any complaints. PHYSICAL EXAMINATION: Vital signs are stable. Blood pressure is 154/73, pulse is 69, temperature 98. HEENT: Examination unremarkable, conjunctivae are pink, sclerae nonicteric, oral cavity no lesions. NECK: No JVD or lymph node enlargement. CHEST: Clear to auscultation. HEART: Regular rate and rhythm. ABDOMEN: Soft. Bowel sounds are positive. No organomegaly. EXTREMITIES: Excoriation of the skin with wound on the left foot and right above-knee amputation. LABS: From today, WBC 11.9, hemoglobin 8, platelets normal. IMPRESSION: 1. Severe symptomatic anemia with a hemoglobin of 6.3, and Hemoccult-positive stool. Upper endoscopy done yesterday showed a healing antral ulcer and a small hiatal hernia. Colonoscopy could not be done because of poor prep. Patient refuses to have a colonoscopy at this time. 2. Atrial fibrillation on Eliquis, which is currently on hold. 3. Stable hemoglobin. 4. Severe peripheral vascular disease. 5. Above-knee amputation of the right extremity. RECOMMENDATIONS: 1. Advance to a regular diet at this time. 2. Since the patient refuses to have any further endoscopic workup and there is clinically no evidence of active bleeding, he can resume anticoagulation and monitor hemoglobin on a daily basis. 3. Will sign off at this time. Please call us if needed. Thank you for this consultation. MMODL / IJN: [id number] /
[2019-11-08 11:27] LABS: Glucose,Whole Blood 101 mg/dL (75-99)
[2019-11-08] MEDS ORDERED: PEG 3350-NA SULF,BICARB,CL/KCL 4,000 ML BOTTLE PO ONE (12:30)
--- NOTE | 2019-11-08 12:53 | P.PN ---
Subjective This is a pleasant 64 years old -[place] male with past medical history of atrial fibrillation on Eliquis and coronary artery disease on Plavix home COPD, diabetes mellitus, GERD, hyperlipidemia, hypertension, hypothyroidism, chronic kidney disease stage II mostly related to diabetic nephropathy, peripheral artery disease, anxiety/depression, alcohol abuse, BPH. Presents with GI bleed where he was sent from his primary care doctor Dr. Gutierrez, patient has mild dizziness on and off, however he denies baryan blood per rectum, no abdominal pain, no nausea vomiting, no ear pain, no chest pain or dyspnea. Vital signs stable. On admission his hemoglobin was 6.3, he got one unit of blood transfusion and blood hemoglobin went up to 8.4, platelets are normal at 321, WBCs 10.0 K on admission, INR 1.4, sodium 133, potassium 4.8, creatinine 1.2, sugar control, liver enzymes mildly elevated AST at 97 while ALT is normal at 30. UA is still suspicious of infection. Chest x-ray: No acute process, EKG showing atrial fibrillation at 77 with QTC of 504, no significant ST-T changes, On admission patient was started on Protonix intravenously, partition assembler evaluated the patient and plan for him to go for EGD/colonoscopy tomorrow while keeping Eliquis and Plavix on hold 11/07/2019 Patient had EGD and colonoscopy today, his line and the floor Little drowsy from the procedure, abdominal examination looks soft. His vitals looks stable. His hemoglobin went up post transfusion to 8.4, keep monitoring his hemoglobin today, sugar is controlled. EGD did not show lesion explained to patient presentation, colonoscopy was terminated because of poor preparation eliquis and Plavix remain on hold 11/08/2019 Patient is awake and alert however he was refusing check and vitals, blood test and the preparation for repeat colonoscopy. Patient was consult and then he agreed for CBC showing hemoglobin of 8.7 which is a stable, discussed with GI team and they gave the okay to restart Plavix given his history of 2 stents in the LAD and RCA coronary arteries about 2 weeks prior to admitting to the hospital. We will keep Eliquis on hold for now until reevaluated and monitor his hemoglobin while on Plavix and as per GI recommendation as well. However in the meantime patient remains at high risk of thrombosis and bleeding at the same time Last for psychiatric evaluation to assessment total health Vitas looks stable, we'll lower his IV fluids to 50 mL/h, continue with Protonix. Wound consult on the case as well as Review of systems CONSTITUTIONAL: No fever, no malaise, no fatigue. HEENT: No recent visual problems or hearing problems. Denied any sore throat. CARDIOVASCULAR: No orthopnea, PND, no palpitations, no syncope. PULMONARY: No shortness of breath, no cough, no hemoptysis. NEUROLOGICAL: No headaches, no weakness, no numbness. HEMATOLOGICAL: Denies any bleeding or petechiae. GENITOURINARY: Denies any burning micturition, frequency, or urgency. MUSCULOSKELETAL/RHEUMATOLOGICAL: Denies any joint pain, swelling, or any muscle pain. ENDOCRINE: Denies any polyuria or polydipsia. Active Medications Generic Name Dose Route Start Last Admin Trade Name Freq PRN Reason Stop Dose Admin Acetaminophen 650 mg 11/06/19 03:47 Tylenol Tab PO Q6HR PRN Mild Pain or Fever > 100.5 Hydrocodone Bitart/Acetaminophen 1 each 11/06/19 22:00 11/08/19 10:57 Frostproof 10 PO 1 each TID AJ Administration Albuterol Sulfate 2.5 mg 11/06/19 19:56 11/07/19 07:27 Ventolin Nebulized INHALATION 2.5 mg RT-TID PRN Administration Shortness Of Breath Or Wheezing Allopurinol 100 mg 11/07/19 09:00 11/08/19 10:57 Zyloprim PO 100 mg DAILY AJ Administration Atorvastatin Calcium 40 mg 11/07/19 09:00 11/08/19 10:57 Lipitor PO 40 mg DAILY AJ Administration Cholestyramine Resin 4 gm 11/06/19 19:53 Questran PO TID BETWEEN MEALS PRN Diarrhea Famotidine 20 mg 11/06/19 21:00 11/08/19 10:59 Pepcid PO 20 mg BID AJ Administration Fluoxetine HCl 20 mg 11/07/19 09:00 11/08/19 10:57 Prozac PO 20 mg DAILY AJ Administration Furosemide 40 mg 11/07/19 09:00 11/08/19 10:58 Lasix PO 40 mg DAILY AJ Administration Sodium Chloride 1,000 mls @ 75 mls/hr 11/06/19 01:00 11/07/19 21:13 Saline 0.9% IV 75 mls/hr .[id number] AJ Administration Levothyroxine Sodium 25 mcg 11/07/19 06:30 11/08/19 10:59 Synthroid PO 25 mcg 0630 AJ Administration Lisinopril 2.5 mg 11/07/19 09:00 11/08/19 10:58 Zestril PO 2.5 mg DAILY AJ Administration Magnesium Oxide 400 mg 11/06/19 21:00 11/08/19 10:59 Mag-Ox PO 400 mg BID AJ Administration Metoprolol Tartrate 25 mg 11/06/19 21:00 11/08/19 10:57 Lopressor PO 25 mg BID AJ Administration Naloxone HCl 0.2 mg 11/06/19 03:47 Narcan IV Q2M PRN Opioid Reversal Nitroglycerin 0.4 mg 11/06/19 19:47 Nitrostat SUBLINGUAL Q5M PRN Chest Pain Pantoprazole Sodium 40 mg 11/06/19 10:15 11/08/19 10:56 Protonix IVP 40 mg BID AJ Administration Tamsulosin HCl 0.4 mg 11/07/19 08:30 11/08/19 10:58 Flomax PO 0.4 mg [id number] AJ Administration Objective - Vital Signs Vital signs: Vital Signs Temp 98.7 F 11/07/19 04:00 Pulse 69 11/08/19 03:54 Resp 16 11/08/19 11:50 BP 154/73 11/08/19 03:54 Pulse Ox 95 11/08/19 03:54 Intake & Output 11/07/19 11/08/19 11/08/19 18:59 06:59 18:59 Intake Total 150 580 240 Output Total 450 500 Balance -300 80 240 Weight 79.7 kg Intake: IV 150 Intake, IV Titration 300 Amount Sodium Chloride 0.9% 1, 300 000 ml @ 75 mls/hr IV . [id number] [facility] Rx#:[id number] Oral 280 240 Output: Urine 450 500 Other: Voiding Method Indwelling Catheter Indwelling Catheter Indwelling Catheter # Bowel Movements 3 - Exam GENERAL: The patient is alert and oriented x3, not in any acute distress. Well developed, well nourished. HEENT: Pupils are round and equally reacting to light. EOMI. No scleral icterus. No conjunctival pallor. Normocephalic, atraumatic. No pharyngeal erythema. No thyromegaly. CARDIOVASCULAR: S1 and S2 present. No murmurs, rubs, or gallops. PULMONARY: Chest is clear to auscultation, no wheezing or crackles. ABDOMEN: Soft, nontender, nondistended, normoactive bowel sounds. No palpable organomegaly. -MUSCULOSKELETAL: No joint swelling or deformity. Sacral pressure ulcer, stage II. Status post left lower extremity amputation EXTREMITIES: No cyanosis, clubbing, or pedal edema. NEUROLOGICAL: Gross neurological examination did not reveal any focal deficits. SKIN: No rashes. no petechiae. - Labs CBC & Chem 7: 11/08/19 10:09 11/06/19 02:23 Labs: Abnormal Lab Results - Last 24 Hours (Table) 11/07/19 11/07/19 11/08/19 Range/Units 14:56 20:09 06:47 WBC 11.9 H (3.8-10.6) k/uL RBC 3.02 L (4.30-5.90) m/uL Hgb 8.0 L (13.0-17.5) gm/dL Hct 25.7 L (39.0-53.0) % MCHC (31.0-37.0) g/dL RDW 17.0 H (11.5-15.5) % POC Glucose (mg/dL) 114 H 102 H (75-99) mg/dL 11/08/19 11/08/19 Range/Units 10:09 11:26 WBC 10.7 H (3.8-10.6) k/uL RBC 3.33 L (4.30-5.90) m/uL Hgb 8.7 L (13.0-17.5) gm/dL Hct 29.0 L (39.0-53.0) % MCHC 30.0 L (31.0-37.0) g/dL RDW 17.3 H (11.5-15.5) % POC Glucose (mg/dL) 101 H (75-99) mg/dL Microbiology - Last 24 Hours (Table) 11/06/19 02:23 Blood Culture - Preliminary Blood No Growth after 48 hours Assessment and Plan Assessment: Acute GI bleed Acute blood loss anemia Chronic atrial fibrillation on Eliquis at home Recent history of coronary artery disease status post stent placement in RCA and LAD was on Plavix Diabetes mellitus Chronic kidney disease stage II secondary to diabetes mellitus Samina edema Hypertension History of coronary artery disease Benign prostatic hypertrophy History of Peripheral artery disease History of anxiety and depression, 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 Patient is counseled and he told me he agrees for GoLYTELY for repeat colonoscopy, in the meantime keep him on liquid diet patient is followed closely by partition assembler, his colonoscopy was terminated because of low preparation. We will follow with GI team recommendation Labs and medication were reviewed.. Continue same treatment. Continue with symptomatic treatment. Resume home medication. Monitor lytes and vitals. DVT and GI prophylaxis. Further recommendations of the clinical course of the patient DVT prophylaxis: No anticoagulation in view of GI bleeds. Continue with mechanical and Plavix GI Prophylaxis: Protonix Prognosis is guarded
--- NOTE | 2019-11-08 14:17 | P.CN ---
Psychiatric Consult - . Consult date: 11/08/19 Consult:: 11/08/19 14:05 IDENTIFYING DATA: This patient is a 64-year-old -[place] male who currently lives alone in a house and has 2 daughters and collects Social Security HISTORY OF PRESENT ILLNESS: The patient presented to the hospital initially with a complaint of abnormal labs coming from his primary care physician. Patient apparently had low hemoglobin 6.3 decreased sodium and increased potassium. Patient was admitted to the medical floor for treatment and further investigation. Patient had begun refusing vitals refusing blood work and treatment on his wounds on his legs. Psychiatry is consulted for refusing treatment and to assess for capacity. As per nurse taking care patient states that he has been "going back and forth" with regards to his medications and treatment and has been declining at times his colonoscopy prep. Patient was seen at the bedside and appeared to have poor hygiene and grooming however was agreeable to speak to her technical writer and editor. Patient claims that he's been having "bad luck" and described having a heart attack and worsening medical condition. He claims that since 2012 "it's been downhill" regarding his medical problems. He states that he did come in the hospital because his PCP was concerned about him and spoke vaguely about having "electrolytes off". Patient was asked about refusing treatment and assessment by nurses and patient stated that "sooner or later you have nothing" and described feeling frustrated that he staff was not communicating with them well. He claims as generally he listens to medical advice and to his doctor's and claims that he "wants to live". He states that going forward he will allow nurses and staff to care for him. He describes that he may "lose my legs" if he does not get wound care treatment and also describes possibility of if he is untreated in the hospital. He states that his mood is been "mood swings" and describes poor sleep at times sleeping 4-5 hours.. At this time patient denies any suicidal or homical ideations, intent or plan. Patient denies any auditory, visual hallucinations and denies any paranoia or delusions. Patients admits to using marijuana and claims that he quit cigarettes. He denies any other substance use at this time. PAST PSYCHIATRIC HISTORY: He states that he has a history of depression and anxiety and has been on Prozac 20 mg daily. He states that he follows up with his primary care physician for this and does not have an outpatient psychiatrist. He denies any history of admissions to psychiatric units or history of suicide attempts. PAST MEDICAL HISTORY: History of C. diff, A. fib, see [facility], CAD, PVD, hypertension, hyperlipidemia. ALLERGIES: as per EMR. CHEMICAL DEPENDENCY HISTORY: as per HPI. FAMILY PSYCHIATRIC/SUBSTANCE USE HISTORY: denies SOCIAL HISTORY: He states that he was born and raised in [place] and moved to [place] later on in life. He states that he has 2 daughters who currently lives in [place]. He states that he lives alone and collect Social Security. He says he completed up to the 10th grade. MENTAL STATUS EXAM: General Appearance: Patient appears to be older than alert, attempts to cooperate. Patient appears to have disheveled hygiene and grooming wearing hospital gown with fair eye contact. Behavior: Patient is calmly lying in bed without any agitated behavior. Speech: Patient's speech is fluent and nonpressured. Soft tone. Mood/Affect: Patient reports their mood is "up and down", affect is congruent Suicidality/Homicidality: Patient denies having any suicidal or homicidal ideation intent or plan. Perceptions: Patient denies any visual hallucinations and denies any auditory hallucinations Though content/process: Rambles at times, tangential/circumstantial. Future oriented. Memory and concentration: AOX3, grossly intact for the purposes of this session. Can spell "WORLD" backwards Judgment and insight: Chronically Limited IMPRESSIONS: Depressive disorder unspecified Cannabis use disorder, mild PLAN: -At this time patient DOES NOT meet criteria for inpatient psychiatric admission. -Patient DOES have decision making capacity at this time and is unable to reason through and communicate/appreciate the risks, benefits and alternatives to treatment. Most likely, patient is having difficulty communicating and interpreting help by staff and clinical providers and will require more education regarding medical treatment and assessment by staff. Patient is agreeable to continue with treatment and is future oriented. -Would recommend the following medication changes/additions: Added Seroquel 25 mg daily at bedtime for mood stabilization/insomnia, increased Prozac to 40 mg daily for mood. -Psychiatry will sign off at this point, please contact with any questions.
[2019-11-08 17:17] LABS: Glucose,Whole Blood 102 mg/dL (75-99)
[2019-11-08 20:41] LABS: Glucose,Whole Blood 180 mg/dL (75-99)
[2019-11-08] MEDS: QUEtiapine 25 MG TAB PO SCH (22:57)
[2019-11-08] MEDS: CLOPIDOGREL 75 MG TAB PO SCH (22:57)
[2019-11-08] MEDS: SODIUM CHLORIDE 0.9% 1,000 ML IV SCH ×2 (22:58→22:59)
[2019-11-09 06:07] LABS: Glucose,Whole Blood 105 mg/dL (75-99)
[2019-11-09] MEDS: LEVOTHYROXINE 25 MCG TAB PO SCH (06:50)
[2019-11-09 07:12] LABS: Anisocytosis Slight; Basophils % (A) 0 %; Eosinophils # (A) 0.4 k/uL (0-0.7); Eosinophils % (A) 4 %; HCT 24.6 % (39.0-53.0); HGB 7.3 gm/dL (13.0-17.5); Hypochromasia Marked; Lymphocytes # (A) 2.2 k/uL (1.0-4.8); Lymphocytes % (A) 24 %; MCH 25.8 pg (25.0-35.0); MCHC 29.8 g/dL (31.0-37.0); MCV 86.4 fL (80.0-100.0); Mean Platelet Volume 8.7; Monocytes # (A) 0.4 k/uL (0-1.0); Monocytes % (A) 5 %; Neutrophils # (A) 5.8 k/uL (1.3-7.7); Neutrophils % (A) 64 %; Platelet Count 236 k/uL (150-450); Poikilocytosis Slight; RBC 2.85 m/uL (4.30-5.90); RDW 17.6 % (11.5-15.5); WBC 9.1 k/uL (3.8-10.6)
[2019-11-09 07:24] LABS: African American GFR (CKD) >90 (>60 ml/min/1.73 sqM); Anion Gap 5 mmol/L; Blood Urea Nitrogen 18 mg/dL (9-20); Calcium 7.4 mg/dL (8.4-10.2); Carbon Dioxide 20 mmol/L (22-30); Chloride 111 mmol/L (98-107); Glucose 78 mg/dL (74-99); Non-African American GFR(CKD) 80 (>60 ml/min/1.73 sqM); Potassium 3.9 mmol/L (3.5-5.1); Sodium 136 mmol/L (137-145)
[2019-11-09] MEDS: LISINOPRIL 2.5 MG TAB PO SCH (09:40)
[2019-11-09] MEDS: TAMSULOSIN 0.4 MG CAP.ER.24H PO SCH (09:40)
[2019-11-09] MEDS: FLUoxetine HCL 20 MG CAP PO SCH (09:40)
[2019-11-09] MEDS: HYDROcodone/APAP 10-325MG 1 EACH TAB PO SCH ×3 (09:40→21:08)
[2019-11-09] MEDS: MAGNESIUM OXIDE 400 MG TAB PO SCH ×2 (09:40→21:08)
[2019-11-09] MEDS: METOPROLOL TARTRATE 25 MG TAB PO SCH (09:41)
[2019-11-09] MEDS: ALLOPURINOL 100 MG TAB PO SCH (09:41)
[2019-11-09] MEDS: FUROSEMIDE 40 MG TAB PO SCH (09:41)
[2019-11-09] MEDS: FAMOTIDINE 20 MG TAB PO SCH ×2 (09:41→21:08)
[2019-11-09] MEDS: CLOPIDOGREL 75 MG TAB PO SCH (09:41)
[2019-11-09] MEDS: ATORVASTATIN 40 MG TAB PO SCH (09:41)
[2019-11-09] MEDS: PANTOPRAZOLE 40 MG/10 ML VIAL IVP SCH ×2 (09:42→21:08)
[2019-11-09 11:52] LABS: Glucose,Whole Blood 242 mg/dL (75-99)
--- NOTE | 2019-11-09 12:35 | PN ---
PROGRESS NOTE DATE OF DICTATION: 11/09/2019 This patient is a 64-year-old white male admitted to the hospital with severe symptomatic anemia and underwent an upper endoscopy 2 days ago that showed duodenitis and healed gastric ulcer. Colonoscopy could not be performed, as the patient could not tolerate the prep. He was scheduled for a colonoscopy today, but he refused during his prep yesterday. I had a long chat with him today and he wants to undergo this colonoscopy on Monday. He denies any complaints. PHYSICAL EXAMINATION: He appears comfortable. No apparent distress. Vital signs are stable. Blood pressure is 132/86, pulse rate 77, temperature 98. HEENT examination unremarkable. Conjunctivae pink. Sclerae anicteric. Oral cavity no lesions. NECK: No JVD or lymph node enlargement. CHEST: Clear to auscultation. HEART: Regular rate and rhythm. ABDOMEN: Soft. Bowel sounds are positive. No organomegaly. EXTREMITIES: No pedal edema. Left above-knee amputation noted. LABS: Labs done today show hemoglobin is 7.3, WBC 9.1. Platelets are normal. Basic metabolic panel is within normal limits. IMPRESSION: 1. Severe symptomatic anemia with a hemoglobin of 6.5 requiring 2 units of blood transfusion. EGD done 2 days ago showed some duodenitis and a healed gastric ulcer. Colonoscopy could not be performed because of poor prep. 2. Atrial fibrillation, on Eliquis, currently on hold. 3. Coronary artery disease, status post stent placement 2 months ago, on aspirin and Plavix, currently on hold. RECOMMENDATIONS: I had a lengthy discussion with the patient regarding further workup of anemia. At this time continue to hold Eliquis. The patient states that he would like to proceed with this procedure Monday. For now, will continue him on a clear liquid diet and start GoLYTELY prep tomorrow morning. In the meantime, monitor CBC on a daily basis and we will follow with you closely. Thank you for this consultation. MMODL / IJN: [id number] /
[2019-11-09] MEDS ORDERED: SODIUM CHLORIDE 0.9% 500 ML 500 ML IV ONE ×3 (13:26→18:01)
--- NOTE | 2019-11-09 14:32 | P.PN ---
Subjective This is a pleasant 64 years old -[place] male with past medical history of atrial fibrillation on Eliquis and coronary artery disease on Plavix home COPD, diabetes mellitus, GERD, hyperlipidemia, hypertension, hypothyroidism, chronic kidney disease stage II mostly related to diabetic nephropathy, peripheral artery disease, anxiety/depression, alcohol abuse, BPH. Presents with GI bleed where he was sent from his primary care doctor Dr. Gutierrez, patient has mild dizziness on and off, however he denies brayan blood per rectum, no abdominal pain, no nausea vomiting, no ear pain, no chest pain or dyspnea. Vital signs stable. On admission his hemoglobin was 6.3, he got one unit of blood transfusion and blood hemoglobin went up to 8.4, platelets are normal at 321, WBCs 10.0 K on admission, INR 1.4, sodium 133, potassium 4.8, creatinine 1.2, sugar control, liver enzymes mildly elevated AST at 97 while ALT is normal at 30. UA is still suspicious of infection. Chest x-ray: No acute process, EKG showing atrial fibrillation at 77 with QTC of 504, no significant ST-T changes, On admission patient was started on Protonix intravenously, senior market intelligence consultant evaluated the patient and plan for him to go for EGD/colonoscopy tomorrow while keeping Eliquis and Plavix on hold 11/07/2019 Patient had EGD and colonoscopy today, his line and the floor Little drowsy from the procedure, abdominal examination looks soft. His vitals looks stable. His hemoglobin went up post transfusion to 8.4, keep monitoring his hemoglobin today, sugar is controlled. EGD did not show lesion explained to patient presentation, colonoscopy was terminated because of poor preparation eliquis and Plavix remain on hold 11/08/2019 Patient is awake and alert however he was refusing check and vitals, blood test and the preparation for repeat colonoscopy. Patient was consult and then he agreed for CBC showing hemoglobin of 8.7 which is a stable, discussed with GI team and they gave the okay to restart Plavix given his history of 2 stents in the LAD and RCA coronary arteries about 2 weeks prior to admitting to the hospital. We will keep Eliquis on hold for now until reevaluated and monitor his hemoglobin while on Plavix and as per GI recommendation as well. However in the meantime patient remains at high risk of thrombosis and bleeding at the same time Last for psychiatric evaluation to assessment total health Vitas looks stable, we'll lower his IV fluids to 50 mL/h, continue with Protonix. Wound consult on the case as well as 11/09/2019 Patient is awake and alert, no chest pain or dyspnea. No abdominal pain. Patient is counseled today about need for GI preparation and he agreed to it again, benefits risks and alternatives are explained to him and he verbalized understanding and acceptance. Also case was discussed with GI team for possible repeat colonoscopy and therefore on the case closely His blood pressure was on the low side with systolic 80s-90s a bolus of normal saline is provided and rechecking his hemoglobin. Also patient has few runs of V. tach however is asymptomatic. Yesterday was started on Plavix we'll keep mo nitoring his hemoglobin and if it keeps drip and we will hold his Plavix. Eliquis is on hold, we will call cardiology consult Looks like patient has capacity to make medical decision for psychiatric service and per my evaluation Review of systems CONSTITUTIONAL: No fever, no malaise, no fatigue. HEENT: No recent visual problems or hearing problems. Denied any sore throat. CARDIOVASCULAR: No orthopnea, PND, no palpitations, no syncope. PULMONARY: No shortness of breath, no cough, no hemoptysis. NEUROLOGICAL: No headaches, no weakness, no numbness. HEMATOLOGICAL: Denies any bleeding or petechiae. GENITOURINARY: Denies any burning micturition, frequency, or urgency. MUSCULOSKELETAL/RHEUMATOLOGICAL: Denies any joint pain, swelling, or any muscle pain. ENDOCRINE: Denies any polyuria or polydipsia. Active Medications Generic Name Dose Route Start Last Admin Trade Name Angela PRN Reason Stop Dose Admin Acetaminophen 650 mg 11/06/19 03:47 Tylenol Tab PO Q6HR PRN Mild Pain or Fever > 100.5 Hydrocodone Bitart/Acetaminophen 1 each 11/06/19 22:00 11/09/19 09:40 Brooker 10 PO 1 each TID AJ Administration Albuterol Sulfate 2.5 mg 11/06/19 19:56 11/07/19 07:27 Ventolin Nebulized INHALATION 2.5 mg RT-TID PRN Administration Shortness Of Breath Or Wheezing Allopurinol 100 mg 11/07/19 09:00 11/09/19 09:41 Zyloprim PO 100 mg DAILY AJ Administration Atorvastatin Calcium 40 mg 11/07/19 09:00 11/09/19 09:41 Lipitor PO 40 mg DAILY AJ Administration Cholestyramine Resin 4 gm 11/06/19 19:53 Questran PO TID BETWEEN MEALS PRN Diarrhea Clopidogrel Bisulfate 75 mg 11/08/19 20:00 11/09/19 09:41 Plavix PO 75 mg DAILY AJ Administration Famotidine 20 mg 11/06/19 21:00 11/09/19 09:41 Pepcid PO 20 mg BID AJ Administration Fluoxetine HCl 40 mg 11/09/19 09:00 11/09/19 09:40 Prozac PO 40 mg DAILY AJ Administration Furosemide 40 mg 11/07/19 09:00 11/09/19 09:41 Lasix PO 40 mg DAILY AJ Administration Sodium Chloride 1,000 mls @ 50 mls/hr 11/06/19 01:00 11/08/19 22:59 Saline 0.9% IV 50 mls/hr .Q20H AJ Administration Levothyroxine Sodium 25 mcg 11/07/19 06:30 11/09/19 06:50 Synthroid PO 25 mcg 0630 AJ Administration Lisinopril 2.5 mg 11/07/19 09:00 11/09/19 09:40 Zestril PO 2.5 mg DAILY AJ Administration Magnesium Oxide 400 mg 11/06/19 21:00 11/09/19 09:40 Mag-Ox PO 400 mg BID AJ Administration Metoprolol Tartrate 25 mg 11/06/19 21:00 11/09/19 09:41 Lopressor PO 25 mg BID AJ Administration Naloxone HCl 0.2 mg 11/06/19 03:47 Narcan IV Q2M PRN Opioid Reversal Nitroglycerin 0.4 mg 11/06/19 19:47 Nitrostat SUBLINGUAL Q5M PRN Chest Pain Pantoprazole Sodium 40 mg 11/06/19 10:15 11/09/19 09:42 Protonix IVP 40 mg BID AJ Administration Quetiapine Fumarate 25 mg 11/08/19 21:00 11/08/19 22:57 Seroquel PO 25 mg HS AJ Administration Tamsulosin HCl 0.4 mg 11/07/19 08:30 11/09/19 09:40 Flomax PO 0.4 mg PC-BRKFST AJ Administration Objective - Vital Signs Vital signs: Vital Signs Temp 98.1 F 11/09/19 08:00 Pulse 77 11/09/19 08:00 Resp 18 11/09/19 08:00 BP 120/62 11/09/19 08:00 Pulse Ox 100 11/09/19 08:00 Intake & Output 11/08/19 11/09/19 11/09/19 18:59 06:59 18:59 Intake Total 240 1360 210 Output Total 1200 2400 Balance -960 -1040 210 Weight 79.7 kg 63.5 kg Intake: Intake, IV Titration 400 Amount Sodium Chloride 0.9% 1, 400 000 ml @ 50 mls/hr IV . Q20H [facility] Rx#:[id number] Oral 240 960 210 Output: Urine 1200 2400 Other: Voiding Method Indwelling Catheter Indwelling Catheter Indwelling Catheter # Voids 0 # Bowel Movements 3 - Exam GENERAL: The patient is alert and oriented x3, not in any acute distress. Well developed, well nourished. HEENT: Pupils are round and equally reacting to light. EOMI. No scleral icterus. No conjunctival pallor. Normocephalic, atraumatic. No pharyngeal erythema. No thyromegaly. CARDIOVASCULAR: S1 and S2 present. No murmurs, rubs, or gallops. PULMONARY: Chest is clear to auscultation, no wheezing or crackles. ABDOMEN: Soft, nontender, nondistended, normoactive bowel sounds. No palpable organomegaly. -MUSCULOSKELETAL: No joint swelling or deformity. Sacral pressure ulcer, stage II. Status post left lower extremity amputation EXTREMITIES: No cyanosis, clubbing, or pedal edema. NEUROLOGICAL: Gross neurological examination did not reveal any focal deficits. SKIN: No rashes. no petechiae. - Labs CBC & Chem 7: 11/09/19 06:30 11/09/19 06:30 Labs: Abnormal Lab Results - Last 24 Hours (Table) 11/08/19 11/08/19 11/09/19 Range/Units 17:16 20:39 06:05 RBC (4.30-5.90) m/uL Hgb (13.0-17.5) gm/dL Hct (39.0-53.0) % MCHC (31.0-37.0) g/dL RDW (11.5-15.5) % Sodium (137-145) mmol/L Chloride (98-107) mmol/L Carbon Dioxide (22-30) mmol/L POC Glucose (mg/dL) 102 H 180 H 105 H (75-99) mg/dL Calcium (8.4-10.2) mg/dL 11/09/19 11/09/19 11/09/19 Range/Units 06:30 06:30 11:33 RBC 2.85 L (4.30-5.90) m/uL Hgb 7.3 L (13.0-17.5) gm/dL Hct 24.6 L (39.0-53.0) % MCHC 29.8 L (31.0-37.0) g/dL RDW 17.6 H (11.5-15.5) % Sodium 136 L (137-145) mmol/L Chloride 111 H (98-107) mmol/L Carbon Dioxide 20 L (22-30) mmol/L POC Glucose (mg/dL) 242 H (75-99) mg/dL Calcium 7.4 L (8.4-10.2) mg/dL Microbiology - Last 24 Hours (Table) 11/06/19 02:23 Blood Culture - Preliminary Blood No Growth after 72 hours Assessment and Plan Assessment: Acute GI bleed Acute blood loss anemia nonsustained V. tach Chronic atrial fibrillation on Eliquis at home Recent history of coronary artery disease status post stent placement in RCA and LAD was on Plavix Diabetes mellitus Chronic kidney disease stage II secondary to diabetes mellitus Samina edema Hypertension History of coronary artery disease Benign prostatic hypertrophy History of Peripheral artery disease History of anxiety and depression, no connective tissue Plan: This is a pleasant 64 years old male who presents with GI bleeds, continue with IV Protonix, hold Eliquis till cleared by GI team, continue with Plavix but we will hold again if his hemoglobin droppingLYTELY for repeat colonoscopy, in the meantime keep him on liquid diet We will call cardiology consult patient is followed closely by senior market intelligence consultant, his colonoscopy was terminated because of low preparation. We will follow with GI team recommendation Labs and medication were reviewed.. Continue same treatment. Continue with symptomatic treatment. Resume home medication. Monitor lytes and vitals. DVT and GI prophylaxis. Further recommendations of the clinical course of the patient DVT prophylaxis: No anticoagulation in view of GI bleeds. Continue with mechanical and Plavix GI Prophylaxis: Protonix Prognosis is guarded
[2019-11-09] MEDS ORDERED: LACTATED RINGERS 1,000 ML IV SCH ×2 (14:49)
[2019-11-09 15:25] LABS: African American GFR (CKD) >90 (>60 ml/min/1.73 sqM); Anion Gap 3 mmol/L; Blood Urea Nitrogen 17 mg/dL (9-20); Calcium 7.4 mg/dL (8.4-10.2); Carbon Dioxide 22 mmol/L (22-30); Chloride 111 mmol/L (98-107); Glucose 83 mg/dL (74-99); Non-African American GFR(CKD) 84 (>60 ml/min/1.73 sqM); Potassium 3.9 mmol/L (3.5-5.1); Sodium 136 mmol/L (137-145)
[2019-11-09 15:34] LABS: Anisocytosis Slight; Basophils % (A) 0 %; Eosinophils # (A) 0.4 k/uL (0-0.7); Eosinophils % (A) 4 %; HCT 24.4 % (39.0-53.0); HGB 7.4 gm/dL (13.0-17.5); Hypochromasia Marked; Lymphocytes # (A) 2.2 k/uL (1.0-4.8); Lymphocytes % (A) 22 %; MCH 25.5 pg (25.0-35.0); MCHC 30.2 g/dL (31.0-37.0); MCV 84.5 fL (80.0-100.0); Mean Platelet Volume 8.9; Monocytes # (A) 0.6 k/uL (0-1.0); Monocytes % (A) 6 %; Neutrophils # (A) 6.7 k/uL (1.3-7.7); Neutrophils % (A) 67 %; Platelet Count 241 k/uL (150-450); Poikilocytosis Slight; RBC 2.89 m/uL (4.30-5.90); RDW 17.2 % (11.5-15.5)
[2019-11-09 16:39] LABS: Glucose,Whole Blood 88 mg/dL (75-99)
[2019-11-09] MEDS: SODIUM CHLORIDE 0.9% 1,000 ML IV SCH (16:46)
[2019-11-09] MEDS: METOPROLOL TARTRATE 12.5 MG TAB PO SCH (20:38)
[2019-11-09 20:51] LABS: Glucose,Whole Blood 86 mg/dL (75-99)
[2019-11-09] MEDS: QUEtiapine 25 MG TAB PO SCH (21:08)
[2019-11-10 06:06] LABS: Glucose,Whole Blood 77 mg/dL (75-99)
[2019-11-10 06:12] LABS: Anisocytosis Slight; Basophils % (A) 0 %; Eosinophils # (A) 0.4 k/uL (0-0.7); Eosinophils % (A) 4 %; HCT 24.6 % (39.0-53.0); HGB 7.2 gm/dL (13.0-17.5); Hypochromasia Marked; Lymphocytes # (A) 2.3 k/uL (1.0-4.8); Lymphocytes % (A) 21 %; MCH 25.6 pg (25.0-35.0); MCHC 29.4 g/dL (31.0-37.0); MCV 87.1 fL (80.0-100.0); Mean Platelet Volume 8.7; Monocytes # (A) 0.4 k/uL (0-1.0); Monocytes % (A) 3 %; Neutrophils # (A) 7.6 k/uL (1.3-7.7); Neutrophils % (A) 70 %; Platelet Count 256 k/uL (150-450); Poikilocytosis Slight; RBC 2.82 m/uL (4.30-5.90); RDW 17.1 % (11.5-15.5)
[2019-11-10 06:22] LABS: African American GFR (CKD) >90 (>60 ml/min/1.73 sqM); Anion Gap 5 mmol/L; Blood Urea Nitrogen 14 mg/dL (9-20); Calcium 7.2 mg/dL (8.4-10.2); Carbon Dioxide 19 mmol/L (22-30); Chloride 114 mmol/L (98-107); Glucose 76 mg/dL (74-99); Non-African American GFR(CKD) 86 (>60 ml/min/1.73 sqM); Potassium 4.2 mmol/L (3.5-5.1); Sodium 138 mmol/L (137-145)
[2019-11-10] MEDS ORDERED: PEG 3350-NA SULF,BICARB,CL/KCL 4,000 ML BOTTLE PO ONE (09:30)
--- NOTE | 2019-11-10 09:44 | PN ---
PROGRESS NOTE DATE OF SERVICE: 11/10/2019 Patient is a 64-year-old white male admitted to hospital with severe symptomatic anemia, has been off aspirin and Plavix, and Eliquis for the last 4 days. He had an EGD 3 days ago but an attempted colonoscopy that was terminated because of poor prep. For the last 3 days, the patient is refusing to drink the colon prep. Today he agreed to have a colonoscopy tomorrow. He denies any symptoms. He reports no abdominal pain. Has decreased appetite. PHYSICAL EXAMINATION: Appears comfortable. No apparent distress. VITAL SIGNS: Stable. Blood pressure is 107/82, pulse 78, temperature 98. HEENT examination unremarkable. Conjunctivae pink. Sclerae anicteric. Oral cavity no lesions. Neck: No JVD or lymph node enlargement. Chest was clear to auscultation. HEART: Regular rate and rhythm. ABDOMEN: Soft. Bowel sounds are positive. No organomegaly. Extremities: Left above knee amputation. Right extremity skin excoriation with deep pigmentation noted. LABS: From today WBC 11, hemoglobin 7.2, platelets normal. Basic metabolic panel is within normal limits. IMPRESSION: 1. Severe symptomatic anemia with a hemoglobin of 6.3, requiring 2 units of blood transfusion. Hemoglobin gradually dropping to 7.2. Clinically no evidence of active bleeding, status post EGD 3 days ago that showed a healed gastric ulcer and some duodenitis. Colonoscopy could not be done because of poor prep. 2. Atrial fibrillation on Eliquis, currently on hold. 3. Coronary artery disease status post stent placement 2 months ago, Plavix on hold. RECOMMENDATIONS: I had a lengthy discussion with the patient trying to convince him to drink the GoLYTELY prep today so that we can plan for colonoscopy tomorrow. Discussed the plan with the patient's nurse caring for him. In the meantime, continue with a clear liquid diet. Hold anticoagulation. Schedule for colonoscopy tomorrow. Thank you for this consultation. MMODL / IJN: [id number] /
[2019-11-10] MEDS: FUROSEMIDE 40 MG TAB PO SCH (10:28)
[2019-11-10] MEDS: HYDROcodone/APAP 10-325MG 1 EACH TAB PO SCH ×2 (10:28→16:29)
[2019-11-10] MEDS: MAGNESIUM OXIDE 400 MG TAB PO SCH ×2 (10:28→22:25)
[2019-11-10] MEDS: CLOPIDOGREL 75 MG TAB PO SCH (10:29)
[2019-11-10] MEDS: ATORVASTATIN 40 MG TAB PO SCH (10:29)
[2019-11-10] MEDS: METOPROLOL TARTRATE 12.5 MG TAB PO SCH ×2 (10:29→22:25)
[2019-11-10] MEDS: FAMOTIDINE 20 MG TAB PO SCH ×2 (10:30→22:25)
[2019-11-10] MEDS: PANTOPRAZOLE 40 MG/10 ML VIAL IVP SCH ×2 (10:30→22:25)
[2019-11-10] MEDS: TAMSULOSIN 0.4 MG CAP.ER.24H PO SCH (10:30)
[2019-11-10] MEDS: FLUoxetine HCL 20 MG CAP PO SCH (10:30)
[2019-11-10] MEDS: ALLOPURINOL 100 MG TAB PO SCH (10:30)
[2019-11-10 11:06] VITALS: BMI 20.2
[2019-11-10] MEDS: LISINOPRIL 2.5 MG TAB PO SCH (11:52)
--- NOTE | 2019-11-10 11:52 | P.CRDCN ---
History of Present Illness History of present illness: HISTORY OF PRESENTING ILLNESS This is a pleasant 64-year-old -[place] male past medical history significant for chronic persistent atrial fibrillation on long-term anticoagulation with Eliquis, coronary artery disease status post multivessel PCI most recently in October 2019, COPD, diabetes mellitus, hypertension, dyslipidemia, peripheral vascular disease status post left [id number] amputation, history of alcohol abuse in the past, mitral valve replacement, carotid endarterectomy and former nicotine dependence. He follows in the office with Dr. Godoy. He underwent cardiac catheterization of October 2019 in the setting of non-ST elevated myocardial infarction, successful PCI of the LAD and RCA were performed at that time. Maintained on Plavix along with Eliquis for atrial fibrillation. He presented to the emergency department with symptoms of increased weakness was found to have a hemoglobin of 6.3. He denies any black or bloody stools. No bleeding in the urine that he can visually see. He underwent an upper endoscopy with Dr. Godoy showing no evidence of active bleeding. His Plavix has been resumed Eliquis continues to be on hold as they are going to attempt a colonoscopy tomorrow. He is seen and examined resting comfortably laying flat in bed in no acute distress. He denies symptoms of chest pain, dizziness, shortness of breath or palpitations. He is overall weak, fatigued and frustrated with having to do his colonoscopy prep. DIAGNOSTICS EKG reveals atrial fibrillation heart rate of 77, T-wave inversions noted with nonspecific ST changes in the inferior and anterior leads. Telemetry tracings reveal persistent atrial fibrillation with episodes of aberrancy. Chest xray on admission November 05 reveals cardiomegaly with improvement in pulmonary edema compared to previous study.. Laboratory reviewed, WBC 11, hemoglobin 7.2, platelets 256, sodium 138, potassium 4.2, creatinine 0.95. Current cardiac medications include Eliquis 5 mg twice a day, atorvastatin 40 mg daily, Plavix 75 mg daily, Lasix 40 mg in the morning and 20 mg at bedtime, lis inopril 2.5 mg daily and Lopressor 50 mg twice a day. Most recent echocardiogram obtained October 2019 reveals impaired LV systolic function with ejection fraction 20-25% with anterior hypokinesia, mild mitral regurgitation with a mitral ring annuloplasty in place, mild TR and mild pulmonary hypertension with an RVSP of 40 mmHg. REVIEW OF SYSTEMS At the time of my exam: CONSTITUTIONAL: Denies fever or chills. CARDIOVASCULAR: Denies chest pain, shortness of breath, orthopnea, PND or palpitations. RESPIRATORY: Denies cough. GASTROINTESTINAL: Denies abdominal pain, diarrhea, constipation, nausea or vomiting. MUSCULOSKELETAL: Denies myalgias. NEUROLOGIC: Denies numbness, tingling or weakness. ENDOCRINE: Denies fatigue, weight change, polydipsia or polyurina. GENITOURINARY: Denies burning, hematuria or urgency with micturation. HEMATOLOGIC: Denies history of anemia or bleeding. PHYSICAL EXAMINATION Blood pressure 107/68 heart rate 78 afebrile and maintaining oxygen saturation on room air. CONSTITUTIONAL: No apparent distress. HEENT: Head is normocephalic. Pupils are equal, round. Sclerae anicteric. Mucous membranes of the mouth are moist. No JVD. No carotid bruit. CHEST EXAMINATION: Lungs are clear to auscultation. No chest wall tenderness is noted on palpation or with deep breathing. HEART EXAMINATION: Irregular rate and rhythm. S1, S2 heard. Soft systolic ejection murmur at the apex, no gallops or rub. ABDOMEN: Soft, nontender. Positive bowel sounds. EXTREMITIES: Left [id number]-[id number] amputation, right lower extremity with multiple areas of skin discoloration with chronic nonhealing ulcer on the right heel. NEUROLOGIC EXAMINATION: Patient is awake, alert and oriented x3. ASSESSMENT Chronic persistent atrial fibrillation on long-term anticoagulation. Symptomatic anemia status post blood transfusion. EGD unremarkable for active bleeding, colonoscopy will be attempted tomorrow. Ischemic cardiomyopathy Chronic systolic heart failure, clinically euvolemic. Coronary artery disease status post PCI October 2019 maintained on Plavix Hypertension Dyslipidemia Diabetes mellitus COPD Peripheral vascular disease status post left [id number] amputation and carotid endarterectomy PLAN Agree with holding Eliquis until colonoscopy can be completed. Continue Plavix as his recent PCI/NSTEMI was less than 30 days ago. Continue beta blockers for rate control. Repeat echocardiogram in the morning to assess for improvement in LV systolic function. We will continue to follow and make recommendations accordingly. Thank you kindly for this consultation. Nurse Practitioner note has been reviewed, I agree with a documented findings and plan of care. Patient was seen and examined. Past Medical History Past Medical History: Atrial Fibrillation, Coronary Artery Disease (CAD), COPD, Diabetes Mellitus, GERD/Reflux, Hyperlipidemia, Hypertension, Myocardial Infarction (LA), Thyroid Disorder, Vascular Disorder Additional Past Medical History / Comment(s): Other Hx: Chronic kidney disease stage III, hypothyroid, PAD, diverticular dx, past ETOH abuse. Anxiety/Depression Last Myocardial Infarction Date:: 09/2011 History of Any Multi-Drug Resistant Organisms: C-DIFF Date of last positivie culture/infection: 10/10/2019 MDRO Source:: Sep 2019 Past Surgical History: Cardiac Valve Replacement, Heart Catheterization With Stent Additional Past Surgical History / Comment(s): Mitral Valve replacement, Left above the knee amputation, Femoral-Popliteal Bypass. Endarterectomy Past Anesthesia/Blood Transfusion Reactions: No Reported Reaction Date of Last Stent Placement:: 10/2019 Past Psychological History: Anxiety, Depression Additional Psychological History / Comment(s): Pt resides alone. He uses a cane to ambulate and has a L foot medi shoe. He does not drive. He gets to appts with his cousin. Infestation of bed bugs noted at patients apartment. Smoking Status: Former smoker Past Alcohol Use History: Occasional Additional Past Alcohol Use History / Comment(s): Pt started smoking in 1977 and is a ppd smoker. He states he drinks less than 14 drinks per week but used to drink heavier. Past Drug Use History: Marijuana - Past Family History Mother Family Medical History: Diabetes Mellitus, Deep Vein Thrombosis (DVT) Medications and Allergies Home Medications Medication Instructions Recorded Confirmed Type FLUoxetine HCL [PROzac] 20 mg PO DAILY 03/26/15 11/06/19 History Levothyroxine Sodium [Synthroid] 25 mcg PO DAILY 03/26/15 11/06/19 History Acetaminophen Tab [Tylenol] 650 mg PO Q6HR PRN tab 10/04/17 11/06/19 Rx Allopurinol [Zyloprim] 100 mg PO DAILY 10/10/19 11/06/19 History Clopidogrel [Plavix] 75 mg PO DAILY 10/10/19 11/06/19 History Lisinopril [Zestril] 2.5 mg PO DAILY 10/10/19 11/06/19 History Metoprolol Tartrate [Lopressor] 50 mg PO BID 10/10/19 11/06/19 History Apixaban [Eliquis] 5 mg PO BID tab 10/21/19 11/06/19 Rx Atorvastatin [Lipitor] 40 mg PO DAILY tab 10/21/19 11/06/19 Rx Cholestyramine (with Sugar) 4 gm PO TID BETWEEN MEALS PRN 10/21/19 11/06/19 Rx [Questran Packet] packet Famotidine [Pepcid] 20 mg PO BID #30 tablet 10/21/19 11/06/19 Rx Furosemide [Lasix] 20 mg PO HS #10 tab 10/21/19 11/06/19 Rx Furosemide [Lasix] 40 mg PO DAILY #10 tablet 10/21/19 11/06/19 Rx HYDROcodone/APAP 10-325MG [Kinde 1 tab PO QID PRN #10 tab 10/21/19 11/06/19 Rx 10-325] Hydrophilic Cream [Triad Cream] 1 applic TOPICAL DAILY applic 10/21/19 11/06/19 Rx Ipratropium-Albuterol Nebulize 3 ml INHALATION RT-QID PRN #0 10/21/19 11/06/19 Rx [Duoneb 0.5 mg-3 mg/3 ml Soln] ampul.neb Magnesium Oxide [Mag-Ox] 400 mg PO BID tab 10/21/19 11/06/19 Rx Nitroglycerin Sl Tabs [Nitrostat] 0.4 mg SUBLINGUAL Q5M PRN tab 10/21/19 11/06/19 Rx Tamsulosin [Flomax] 0.4 mg PO PC-BRKFST cap.er.24h 10/21/19 11/06/19 Rx Allergies Allergy/AdvReac Type Severity Reaction Status Date / Time No Known Allergies Allergy Verified 11/06/19 10:03 Physical Exam Vitals: Vital Signs Temp Pulse Resp BP Pulse Ox 11/10/19 04:00 78 16 107/68 98 11/10/19 00:00 78 16 94/51 94 L 11/09/19 20:00 80 18 11/09/19 19:31 98.2 F 80 18 96/59 100 11/09/19 16:00 97.9 F 58 L 16 88/49 100 11/09/19 15:26 56 L 16 11/09/19 14:30 81/40 11/09/19 13:15 98.0 F 56 L 16 82/39 100 Intake and Output 11/09/19 11/10/19 11/10/19 22:59 06:59 14:59 Intake Total 0 725 Output Total 275 Balance -275 725 Intake: Intake, IV Titration 725 Amount Sodium Chloride 0.9% 1, 225 000 ml @ 75 mls/hr IV . [id number] [facility] Rx#:[id number] Sodium Chloride 0.9% 500 500 ml 500 ml @ 999 mls/hr IV .Q31M [facility] Rx#:[id number] Oral 0 Output: Urine 275 Other: Voiding Method Indwelling Catheter Indwelling Catheter # Voids 0 Weight 66 kg Results 11/10/19 05:34 11/10/19 05:34 CBC 11/09/19 11/10/19 Range/Units 14:47 05:34 WBC 10.0 11.0 H (3.8-10.6) k/uL RBC 2.89 L 2.82 L (4.30-5.90) m/uL Hgb 7.4 L 7.2 L (13.0-17.5) gm/dL Hct 24.4 L 24.6 L (39.0-53.0) % Plt Count 241 256 (150-450) k/uL Comprehensive Metabolic Panel 11/09/19 11/10/19 Range/Units 14:54 05:34 Sodium 136 L 138 (137-145) mmol/L Potassium 3.9 4.2 (3.5-5.1) mmol/L Chloride 111 H 114 H (98-107) mmol/L Carbon Dioxide 22 19 L (22-30) mmol/L BUN 17 14 (9-20) mg/dL Creatinine 0.97 0.95 (0.66-1.25) mg/dL Glucose 83 76 (74-99) mg/dL Calcium 7.4 L 7.2 L (8.4-10.2) mg/dL Current Medications Generic Name Dose Route Start Last Admin Trade Name Freq PRN Reason Stop Dose Admin Acetaminophen 650 mg 11/06/19 03:47 Tylenol Tab PO Q6HR PRN Mild Pain or Fever > 100.5 Hydrocodone Bitart/Acetaminophen 1 each 11/06/19 22:00 11/09/19 21:08 Kinde 10 PO Not Given TID [facility] Albuterol Sulfate 2.5 mg 11/06/19 19:56 11/07/19 07:27 Ventolin Nebulized INHALATION 2.5 mg RT-TID PRN Administration Shortness Of Breath Or Wheezing Allopurinol 100 mg 11/07/19 09:00 11/09/19 09:41 Zyloprim PO 100 mg DAILY [facility] Administration Atorvastatin Calcium 40 mg 11/07/19 09:00 11/09/19 09:41 Lipitor PO 40 mg DAILY [facility] Administration Cholestyramine Resin 4 gm 11/06/19 19:53 Questran PO TID BETWEEN MEALS PRN Diarrhea Clopidogrel Bisulfate 75 mg 11/10/19 09:00 Plavix PO DAILY [facility] Famotidine 20 mg 11/06/19 21:00 11/09/19 21:08 Pepcid PO 20 mg BID [facility] Administration Fluoxetine HCl 40 mg 11/09/19 09:00 11/09/19 09:40 Prozac PO 40 mg DAILY [facility] Administration Furosemide 40 mg 11/07/19 09:00 11/09/19 09:41 Lasix PO 40 mg DAILY [facility] Administration Sodium Chloride 1,000 mls @ 75 mls/hr 11/06/19 01:00 11/09/19 16:46 Saline 0.9% IV Not Given .[id number] [facility] Levothyroxine Sodium 25 mcg 11/07/19 06:30 11/09/19 06:50 Synthroid PO 25 mcg 0630 [facility] Administration Lisinopril 2.5 mg 11/07/19 09:00 11/09/19 09:40 Zestril PO 2.5 mg DAILY [facility] Administration Magnesium Oxide 400 mg 11/06/19 21:00 11/09/19 21:08 Mag-Ox PO 400 mg BID [facility] Administration Metoprolol Tartrate 12.5 mg 11/09/19 21:00 11/09/19 20:38 Lopressor PO Not Given BID [facility] Naloxone HCl 0.2 mg 11/06/19 03:47 Narcan IV Q2M PRN Opioid Reversal Nitroglycerin 0.4 mg 11/06/19 19:47 Nitrostat SUBLINGUAL Q5M PRN Chest Pain Pantoprazole Sodium 40 mg 11/06/19 10:15 11/09/19 21:08 Protonix IVP 40 mg BID [facility] Administration Quetiapine Fumarate 25 mg 11/08/19 21:00 11/09/19 21:08 Seroquel PO 25 mg HS [facility] Administration Tamsulosin HCl 0.4 mg 11/07/19 08:30 11/09/19 09:40 Flomax PO 0.4 mg PC-BRKFST AJ Administration Intake and Output 11/09/19 11/10/19 11/10/19 22:59 06:59 14:59 Intake Total 0 725 Output Total 275 Balance -275 725 Intake: Intake, IV Titration 725 Amount Sodium Chloride 0.9% 1, 225 000 ml @ 75 mls/hr IV . [id number] [facility] Rx#:[id number] Sodium Chloride 0.9% 500 500 ml 500 ml @ 999 mls/hr IV .Q31M [facility] Rx#:[id number] Oral 0 Output: Urine 275 Other: Voiding Method Indwelling Catheter Indwelling Catheter # Voids 0 Weight 66 kg 11/10/19 05:34 11/10/19 05:34
[2019-11-10 12:02] LABS: Glucose,Whole Blood 98 mg/dL (75-99)
--- NOTE | 2019-11-10 12:20 | P.PN ---
Subjective This is a pleasant 64 years old -Monegasque male with past medical history of atrial fibrillation on Eliquis and coronary artery disease on Plavix home COPD, diabetes mellitus, GERD, hyperlipidemia, hypertension, hypothyroidism, chronic kidney disease stage II mostly related to diabetic nephropathy, peripheral artery disease, anxiety/depression, alcohol abuse, BPH. Presents with GI bleed where he was sent from his primary care doctor Dr. Gutierrez, patient has mild dizziness on and off, however he denies brayan blood per rectum, no abdominal pain, no nausea vomiting, no ear pain, no chest pain or dyspnea. Vital signs stable. On admission his hemoglobin was 6.3, he got one unit of blood transfusion and blood hemoglobin went up to 8.4, platelets are normal at 321, WBCs 10.0 K on admission, INR 1.4, sodium 133, potassium 4.8, creatinine 1.2, sugar control, liver enzymes mildly elevated AST at 97 while ALT is normal at 30. UA is still suspicious of infection. Chest x-ray: No acute process, EKG showing atrial fibrillation at 77 with QTC of 504, no significant ST-T changes, On admission patient was started on Protonix intravenously, business department chair evaluated the patient and plan for him to go for EGD/colonoscopy tomorrow while keeping Eliquis and Plavix on hold 11/07/2019 Patient had EGD and colonoscopy today, his line and the floor Little drowsy from the procedure, abdominal examination looks soft. His vitals looks stable. His hemoglobin went up post transfusion to 8.4, keep monitoring his hemoglobin today, sugar is controlled. EGD did not show lesion explained to patient presentation, colonoscopy was terminated because of poor preparation eliquis and Plavix remain on hold 11/08/2019 Patient is awake and alert however he was refusing check and vitals, blood test and the preparation for repeat colonoscopy. Patient was consult and then he agreed for CBC showing hemoglobin of 8.7 which is a stable, discussed with GI team and they gave the okay to restart Plavix given his history of 2 stents in the LAD and RCA coronary arteries about 2 weeks prior to admitting to the hospital. We will keep Eliquis on hold for now until reevaluated and monitor his hemoglobin while on Plavix and as per GI recommendation as well. However in the meantime patient remains at high risk of thrombosis and bleeding at the same time Last for psychiatric evaluation to assessment total health Vitas looks stable, we'll lower his IV fluids to 50 mL/h, continue with Protonix. Wound consult on the case as well as 11/09/2019 Patient is awake and alert, no chest pain or dyspnea. No abdominal pain. Patient is counseled today about need for GI preparation and he agreed to it again, benefits risks and alternatives are explained to him and he verbalized understanding and acceptance. Also case was discussed with GI team for possible repeat colonoscopy and therefore on the case closely His blood pressure was on the low side with systolic 80s-90s a bolus of normal saline is provided and rechecking his hemoglobin. Also patient has few runs of V. tach however is asymptomatic. Yesterday was started on Plavix we'll keep mo nitoring his hemoglobin and if it keeps drip and we will hold his Plavix. Eliquis is on hold, we will call cardiology consult Looks like patient has capacity to make medical decision for psychiatric service and per my evaluation 11/10/2019 Patient's feels better than yesterday but become more sleepy and tired, no chest pain or coughing or dyspnea. His legs are slightly more swollen compared to yesterday. His blood pressure is improved at 113/44 today with HER-2 that the 80, saturating 97% on room air Cardiology evaluated the patient and recommended echocardiogram Continue with Plavix and holding Eliquis Discussed with patient and he agrees with taking GoLYTELY today and possible colonoscopy tomorrow Review of systems CONSTITUTIONAL: No fever, no malaise, no fatigue. HEENT: No recent visual problems or hearing problems. Denied any sore throat. CARDIOVASCULAR: No orthopnea, PND, no palpitations, no syncope. PULMONARY: No shortness of breath, no cough, no hemoptysis. NEUROLOGICAL: No headaches, no weakness, no numbness. HEMATOLOGICAL: Denies any bleeding or petechiae. GENITOURINARY: Denies any burning micturition, frequency, or urgency. MUSCULOSKELETAL/RHEUMATOLOGICAL: Denies any joint pain, swelling, or any muscle pain. ENDOCRINE: Denies any polyuria or polydipsia. Active Medications Generic Name Dose Route Start Last Admin Trade Name Freq PRN Reason Stop Dose Admin Acetaminophen 650 mg 11/06/19 03:47 Tylenol Tab PO Q6HR PRN Mild Pain or Fever > 100.5 Hydrocodone Bitart/Acetaminophen 1 each 11/06/19 22:00 11/10/19 10:28 [place] 10 PO 1 each TID AJ Administration Albuterol Sulfate 2.5 mg 11/06/19 19:56 11/07/19 07:27 Ventolin Nebulized INHALATION 2.5 mg RT-TID PRN Administration Shortness Of Breath Or Wheezing Allopurinol 100 mg 11/07/19 09:00 11/10/19 10:30 Zyloprim PO 100 mg DAILY AJ Administration Atorvastatin Calcium 40 mg 11/07/19 09:00 11/10/19 10:29 Lipitor PO 40 mg DAILY AJ Administration Cholestyramine Resin 4 gm 11/06/19 19:53 Questran PO TID BETWEEN MEALS PRN Diarrhea Clopidogrel Bisulfate 75 mg 11/10/19 09:00 11/10/19 10:29 Plavix PO 75 mg DAILY [facility] Administration Famotidine 20 mg 11/06/19 21:00 11/10/19 10:30 Pepcid PO 20 mg BID AJ Administration Ferrous Sulfate 325 mg 11/10/19 12:30 Feosol PO TID-W/MEALS [facility] Fluoxetine HCl 40 mg 11/09/19 09:00 11/10/19 10:30 Prozac PO 40 mg DAILY [facility] Administration Furosemide 40 mg 11/07/19 09:00 11/10/19 10:28 Lasix PO 40 mg DAILY [facility] Administration Sodium Chloride 1,000 mls @ 75 mls/hr 11/06/19 01:00 11/09/19 16:46 Saline 0.9% IV Not Given .[id number] [facility] Levothyroxine Sodium 25 mcg 11/07/19 06:30 11/09/19 06:50 Synthroid PO 25 mcg 0630 [facility] Administration Lisinopril 2.5 mg 11/07/19 09:00 11/10/19 11:52 Zestril PO Not Given DAILY [facility] Magnesium Oxide 400 mg 11/06/19 21:00 11/10/19 10:28 Mag-Ox PO 400 mg BID [facility] Administration Metoprolol Tartrate 12.5 mg 11/09/19 21:00 11/10/19 10:29 Lopressor PO 12.5 mg BID AJ Administration Naloxone HCl 0.2 mg 11/06/19 03:47 Narcan IV Q2M PRN Opioid Reversal Nitroglycerin 0.4 mg 11/06/19 19:47 Nitrostat SUBLINGUAL Q5M PRN Chest Pain Pantoprazole Sodium 40 mg 11/06/19 10:15 11/10/19 10:30 Protonix IVP 40 mg BID AJ Administration Quetiapine Fumarate 25 mg 11/08/19 21:00 11/09/19 21:08 Seroquel PO 25 mg HS AJ Administration Tamsulosin HCl 0.4 mg 11/07/19 08:30 11/10/19 10:30 Flomax PO 0.4 mg PC-BRKFST AJ Administration Objective - Vital Signs Vital signs: Vital Signs Temp 97.7 F 11/10/19 08:00 Pulse 80 11/10/19 11:51 Resp 18 11/10/19 11:51 BP 113/44 11/10/19 08:00 Pulse Ox 97 11/10/19 08:00 Intake & Output 11/09/19 11/10/19 11/10/19 18:59 06:59 18:59 Intake Total 260 725 Output Total 275 Balance -15 725 Weight 66 kg 66 kg Intake: Intake, IV Titration 725 Amount Sodium Chloride 0.9% 1, 225 000 ml @ 75 mls/hr IV . [id number] AJ Rx#:[id number] Sodium Chloride 0.9% 500 500 ml 500 ml @ 999 mls/hr IV .Q31M ONE Rx#:[id number] Oral 260 Output: Urine 275 Other: Voiding Method Indwelling Catheter Indwelling Catheter Indwelling Catheter # Voids 0 - Exam GENERAL: The patient is alert and oriented x3, not in any acute distress. Well developed, well nourished. HEENT: Pupils are round and equally reacting to light. EOMI. No scleral icterus. No conjunctival pallor. Normocephalic, atraumatic. No pharyngeal erythema. No thyromegaly. CARDIOVASCULAR: S1 and S2 present. No murmurs, rubs, or gallops. PULMONARY: Chest is clear to auscultation, no wheezing or crackles. ABDOMEN: Soft, nontender, nondistended, normoactive bowel sounds. No palpable organomegaly. -MUSCULOSKELETAL: No joint swelling or deformity. Sacral pressure ulcer, stage II. Status post left lower extremity amputation EXTREMITIES: No cyanosis, clubbing, or pedal edema. NEUROLOGICAL: Gross neurological examination did not reveal any focal deficits. SKIN: No rashes. no petechiae. - Labs CBC & Chem 7: 11/10/19 05:34 11/10/19 05:34 Labs: Abnormal Lab Results - Last 24 Hours (Table) 11/09/19 11/09/19 11/10/19 Range/Units 14:47 14:54 05:34 WBC (3.8-10.6) k/uL RBC 2.89 L (4.30-5.90) m/uL Hgb 7.4 L (13.0-17.5) gm/dL Hct 24.4 L (39.0-53.0) % MCHC 30.2 L (31.0-37.0) g/dL RDW 17.2 H (11.5-15.5) % Sodium 136 L (137-145) mmol/L Chloride 111 H 114 H (98-107) mmol/L Carbon Dioxide 19 L (22-30) mmol/L Calcium 7.4 L 7.2 L (8.4-10.2) mg/dL 11/10/19 Range/Units 05:34 WBC 11.0 H (3.8-10.6) k/uL RBC 2.82 L (4.30-5.90) m/uL Hgb 7.2 L (13.0-17.5) gm/dL Hct 24.6 L (39.0-53.0) % MCHC 29.4 L (31.0-37.0) g/dL RDW 17.1 H (11.5-15.5) % Sodium (137-145) mmol/L Chloride (98-107) mmol/L Carbon Dioxide (22-30) mmol/L Calcium (8.4-10.2) mg/dL Microbiology - Last 24 Hours (Table) 11/06/19 02:23 Blood Culture - Preliminary Blood No Growth after 96 hours Assessment and Plan Assessment: Acute GI bleed Acute blood loss anemia nonsustained V. tach Chronic atrial fibrillation on Eliquis at home Recent history of coronary artery disease status post stent placement in RCA and LAD was on Plavix Diabetes mellitus Chronic kidney disease stage II secondary to diabetes mellitus Samina edema Hypertension History of coronary artery disease Benign prostatic hypertrophy History of Peripheral artery disease History of anxiety and depression, no connective tissue Plan: This is a pleasant 64 years old male who presents with GI bleeds, continue with IV Protonix, hold Eliquis till cleared by GI team, continue with Plavix but we will hold again if his hemoglobin droppingLYTELY for repeat colonoscopy, in the meantime keep him on liquid diet We will call cardiology consult patient is followed closely by business department chair, his colonoscopy was terminated because of low preparation. We will follow with GI team recommendation Labs and medication were reviewed.. Continue same treatment. Continue with symptomatic treatment. Resume home medication. Monitor lytes and vitals. DVT and GI prophylaxis. Further recommendations of the clinical course of the patient DVT prophylaxis: No anticoagulation in view of GI bleeds. Continue with mechanical and Plavix GI Prophylaxis: Protonix Prognosis is guarded
[2019-11-10] MEDS: FERROUS SULFATE 325 MG TAB PO SCH ×2 (13:28→16:30)
[2019-11-10] MEDS: LEVOTHYROXINE 25 MCG TAB PO SCH (13:29)
[2019-11-10 16:43] LABS: Glucose,Whole Blood 98 mg/dL (75-99)
[2019-11-10 20:23] LABS: Glucose,Whole Blood 97 mg/dL (75-99)
[2019-11-10] MEDS: QUEtiapine 25 MG TAB PO SCH (22:25)
[2019-11-11 06:21] LABS: Glucose,Whole Blood 93 mg/dL (75-99)
[2019-11-11 06:30] LABS: Anisocytosis Slight; Basophils % (A) 0 %; Eosinophils # (A) 0.4 k/uL (0-0.7); Eosinophils % (A) 3 %; HCT 27.5 % (39.0-53.0); HGB 8.2 gm/dL (13.0-17.5); Hypochromasia Marked; Lymphocytes # (A) 2.9 k/uL (1.0-4.8); Lymphocytes % (A) 20 %; MCH 25.7 pg (25.0-35.0); MCHC 29.9 g/dL (31.0-37.0); MCV 85.9 fL (80.0-100.0); Mean Platelet Volume 8.6; Monocytes # (A) 0.4 k/uL (0-1.0); Monocytes % (A) 3 %; Neutrophils # (A) 10.5 k/uL (1.3-7.7); Neutrophils % (A) 73 %; Platelet Count 332 k/uL (150-450); Poikilocytosis Slight; RDW 17.2 % (11.5-15.5); WBC 14.3 k/uL (3.8-10.6)
[2019-11-11] MEDS: HYDROcodone/APAP 10-325MG 1 EACH TAB PO SCH ×4 (06:43→21:43)
--- NOTE | 2019-11-11 09:20 | PN ---
PROGRESS NOTE This gentleman has CAD, prior PCI last month. Also, came in with a GI bleed. He has chronic persistent atrial fibrillation. His apixaban has been held. Upper endoscopy did not reveal any significant source of bleeding. He is going to have a lower endoscopy today. I am recommending that we continue Plavix given his 2 vessel stenting within the last few weeks. Vitals are stable. JVD 1 cm, no carotid bruit. S1-S2 heard normally. Lungs reveal diminished air entry. Abdomen and lower extremity exam is unchanged. Plan is to continue current medications and he can proceed with a lower endoscopy today. MMODL / IJN: [id number] /
[2019-11-11] MEDS: LEVOTHYROXINE 25 MCG TAB PO SCH (09:25)
[2019-11-11] MEDS: FAMOTIDINE 20 MG TAB PO SCH (09:25)
[2019-11-11] MEDS: ATORVASTATIN 40 MG TAB PO SCH (09:26)
[2019-11-11] MEDS: CLOPIDOGREL 75 MG TAB PO SCH (09:26)
[2019-11-11] MEDS: FUROSEMIDE 40 MG TAB PO SCH (09:26)
[2019-11-11] MEDS: FLUoxetine HCL 20 MG CAP PO SCH (09:26)
[2019-11-11] MEDS: ALLOPURINOL 100 MG TAB PO SCH (09:26)
[2019-11-11] MEDS: SODIUM CHLORIDE 0.9% 1,000 ML IV SCH (09:27)
[2019-11-11] MEDS: TAMSULOSIN 0.4 MG CAP.ER.24H PO SCH (09:35)
[2019-11-11] MEDS: METOPROLOL TARTRATE 12.5 MG TAB PO SCH ×2 (09:36→21:44)
[2019-11-11] MEDS: FERROUS SULFATE 325 MG TAB PO SCH ×2 (09:36→18:33)
[2019-11-11] MEDS: PANTOPRAZOLE 40 MG/10 ML VIAL IVP SCH ×2 (09:36→21:44)
[2019-11-11] MEDS: LISINOPRIL 2.5 MG TAB PO SCH (09:36)
[2019-11-11] MEDS: MAGNESIUM OXIDE 400 MG TAB PO SCH ×2 (09:36→21:43)
--- NOTE | 2019-11-11 09:55 | ECHOF ---
Referral Reason:cardiomyopathy MEASUREMENTS -------- HEIGHT: 180.3 cm WEIGHT: 65.3 kg BP: RVIDd: 2.4 cm (< 3.3) IVSd: 1.2 cm (0.6 - 1.1) LVIDd: 3.8 cm (3.9 - 5.3) LVPWd: 1.4 cm (0.6 - 1.1) IVSs: 1.3 cm LVIDs: 3.3 cm LVPWs: 1.4 cm Ao Diam: 2.5 cm (2.0 - 3.7) AV Cusp: 1.5 cm (1.5 - 2.6) LA Diam: 3.1 cm (2.7 - 3.8) AV maxP.16 mmHg AV meanP.77 mmHg AR PHT: 179 ms RAP: 5.00 mmHg RVSP: 47.49 mmHg FINDINGS -------- Atrial fibrillation. This was a technically adequate study. The left ventricular size is normal. There is moderate concentric left ventricular hypertrophy. O verall left ventricular systolic function is severely impaired with, an EF between 25 - 30 %. Mid a nterior LV wall motion is hypokinetic. Mid lateral LV wall motion is hypokinetic. Mid anterosep rubens LV wall motion is hypokinetic. Apical anterior LV wall motion is hypokinetic. Apical latera l LV wall motion is hypokinetic. Apical septum LV wall motion is hypokinetic. The right ventricle is normal in size. The left atrial size is normal. The right atrial size is normal. There is mild aortic valve sclerosis. There is vugjzota-af-avlnpk aortic regurgitation. Peak/mean gradient across the Aortic Valve is 12.16mmHg / 7.77mmHg. Mild mitral annular calcification present. Mild mitral regurgitation is present. Mitral ring king lloplasty is in place. The tricuspid valve appears structurally normal. Mild tricuspid regurgitation present. There is m ild pulmonary hypertension. The right ventricular systolic pressure, as measured by Doppler, is 47. 49mmHg. There is no pulmonic regurgitation present. The aortic root size is normal. Normal inferior vena cava with normal inspiratory collapse consistent with estimated right atrial pre ssure of 5 mmHg. There is no pericardial effusion. CONCLUSIONS -------- 1. Atrial fibrillation. 2. The left ventricular size is normal. 3. There is moderate concentric left ventricular hypertrophy. 4. Overall left ventricular systolic function is severely impaired with, an EF between 25 - 30 %. 5. Mid anterior LV wall motion is hypokinetic. 6. Mid lateral LV wall motion is hypokinetic. 7. Mid anteroseptal LV wall motion is hypokinetic. 8. Apical anterior LV wall motion is hypokinetic. 9. Apical lateral LV wall motion is hypokinetic. 10. Apical septum LV wall motion is hypokinetic. 11. The left atrial size is normal. 12. There is mild aortic valve sclerosis. 13. There is auswwayq-mq-fmekqq aortic regurgitation. 14. Peak/mean gradient across the Aortic Valve is 12.16mmHg / 7.77mmHg. 15. Mild mitral regurgitation is present. 16. Mitral ring annulloplasty is in place. 17. Mild tricuspid regurgitation present. 18. There is mild pulmonary hypertension. 19. There is no pulmonic regurgitation present. 20. Normal inferior vena cava with normal inspiratory collapse consistent with estimated right atrial pressure of 5 mmHg. WINDOWS SECURITY ENGINEER: Kelsey Whitten RDCS
[2019-11-11 11:12] LABS: Glucose,Whole Blood 89 mg/dL (75-99)
[2019-11-11 16:21] LABS: Glucose,Whole Blood 124 mg/dL (75-99)
--- NOTE | 2019-11-11 18:56 | P.PN ---
Subjective Progress Note Date: 11/11/19 Principal diagnosis: Severe symptomatic anemia, stool positive for occult blood Patient seen lying in bed. No signs or symptoms of GI bleeding. Patient was scheduled for colonoscopy today but failed to prep. Objective - Vital Signs Vital signs: Vital Signs Temp 98.6 F 11/11/19 04:00 Pulse 70 11/11/19 04:00 Resp 18 11/11/19 04:00 BP 134/69 11/11/19 04:00 Pulse Ox 99 11/11/19 04:00 Intake & Output 11/10/19 11/11/19 11/11/19 18:59 06:59 18:59 Intake Total 180 Output Total 750 Balance 180 -750 Weight 66 kg 65.5 kg Intake: Oral 180 Output: Urine 750 Other: Voiding Method Indwelling Catheter Indwelling Catheter # Voids 275 275 # Bowel Movements 2 1 - Exam On physical examination, patient appears comfortable in no apparent distress. HEAD: Normocephalic, atraumatic. EYES: No scleral icterus. No conjunctival injection. MOUTH: No lesions, tongue midline. NECK: Trachea midline, no gross abnormalities. ABDOMEN: Soft, thin and nontender. Bowel sounds are positive. No organomegaly. No guarding or rigidity. SKIN: No rashes, no jaundice. NEUROLOGIC: Alert and oriented to person. - Labs CBC & Chem 7: 11/11/19 05:48 11/10/19 05:34 Labs: Abnormal Lab Results - Last 24 Hours (Table) 11/11/19 Range/Units 05:48 WBC 14.3 H (3.8-10.6) k/uL RBC 3.20 L (4.30-5.90) m/uL Hgb 8.2 L (13.0-17.5) gm/dL Hct 27.5 L (39.0-53.0) % MCHC 29.9 L (31.0-37.0) g/dL RDW 17.2 H (11.5-15.5) % Neutrophils # 10.5 H (1.3-7.7) k/uL Microbiology - Last 24 Hours (Table) 11/06/19 02:23 Blood Culture - Preliminary Blood No Growth after 120 hours Assessment and Plan (1) Symptomatic anemia Narrative/Plan: 64-year-old male presenting with severe symptomatic anemia with a hemoglobin of 6 currently 8.2. There were no signs or symptoms of GI bleeding however stool testing was positive for occult blood. The patient had EGD on 11/06 with findings of a hiatal hernia with no evidence of active bleeding noted and colonoscopy attempted at that time was incomplete due to poor prep. The patient was then again prepped for a colonoscopy which she failed to follow through on and was again offered a colonoscopy yesterday and agreed to prep however only took one glass last night. There's been no further evidence of GI bleeding. Unknown etiology of anemia may be multifactorial given anemia of chronic disease, chronic ulcerations with no evidence of active GI bleed at this time. Current Visit: Yes Status: Acute Code(s): D64.9 - ANEMIA, UNSPECIFIED SNOMED Code(s): 706487191 Plan: Supportive care Okay for diet Continue to monitor hemoglobin and hematocrit and transfuse as needed Okay for anticoagulation and antiplatelet therapy as needed Patient has refused to prep for a colonoscopy on 3 occasions and at this time would recommend medical management as he is unwilling to prep for the procedure Thank you for allowing us to dissipate in the care of the patient we will continue to monitor
--- NOTE | 2019-11-11 19:23 | P.PN ---
Progress Note - Text Progress Note Date: 11/11/19 Interval history: This is a pleasant [address] Gutierrez, past medical history of atrial fibr illation on Eliquis and coronary artery disease on Plavix home COPD, diabetes mellitus, GERD, hyperlipidemia, hypertension, hypothyroidism, chronic kidney disease stage II mostly related to diabetic nephropathy, peripheral artery disease, anxiety/depression, alcohol abuse, BPH. Presents with GI bleed where he was sent from his primary care doctor Dr. Gutierrez, patient has mild dizziness on and off, however he denies brayan blood per rectum, no abdominal pain, no nausea vomiting,, no chest pain or dyspnea. Underwent EGD coloscopy. EGD was unremarkable. Colonoscopy showed poor preparation. Seen by psychiatry. Diagnosed with-depressive disorder unspecified. Today-patient has been refusing depression for colonoscopy. Colonoscopy therefore canceled by GI. Review of systems: Was done for constitutional, cardiovascular, GI, pulmonary. relevant finding as above Active Medications Acetaminophen (Tylenol Tab) 650 mg PO Q6HR PRN PRN Reason: Mild Pain or Fever > 100.5 Hydrocodone Bitart/Acetaminophen ([place] 10) 1 each PO TID [facility] Last Admin: 11/11/19 18:33 Dose: 1 each Documented by: Albuterol Sulfate (Ventolin Nebulized) 2.5 mg INHALATION RT-TID PRN PRN Reason: Shortness Of Breath Or Wheezing Last Admin: 11/07/19 07:27 Dose: 2.5 mg Documented by: Allopurinol (Zyloprim) 100 mg PO DAILY [facility] Last Admin: 11/11/19 09:26 Dose: 100 mg Documented by: Atorvastatin Calcium (Lipitor) 40 mg PO DAILY [facility] Last Admin: 11/11/19 09:26 Dose: 40 mg Documented by: Cholestyramine Resin (Questran) 4 gm PO TID BETWEEN MEALS PRN PRN Reason: Diarrhea Clopidogrel Bisulfate (Plavix) 75 mg PO DAILY [facility] Last Admin: 11/11/19 09:26 Dose: 75 mg Documented by: Ferrous Sulfate (Feosol) 325 mg PO TID-W/MEALS [facility] Last Admin: 11/11/19 18:33 Dose: Not Given Documented by: Fluoxetine HCl (Prozac) 40 mg PO DAILY [facility] Last Admin: 11/11/19 09:26 Dose: 40 mg Documented by: Furosemide (Lasix) 40 mg PO DAILY [facility] Last Admin: 04/06/20 09:26 Dose: 40 mg Documented by: Sodium Chloride (Saline 0.9%) 1,000 mls @ 75 mls/hr IV .[id number] [facility] Last Admin: 11/11/19 09:27 Dose: Not Given Documented by: Levothyroxine Sodium (Synthroid) 25 mcg PO 0630 [facility] Last Admin: 11/11/19 09:25 Dose: 25 mcg Documented by: Lisinopril (Zestril) 2.5 mg PO DAILY [facility] Last Admin: 11/11/19 09:36 Dose: 2.5 mg Documented by: Magnesium Oxide (Mag-Ox) 400 mg PO BID [facility] Last Admin: 11/11/19 09:36 Dose: 400 mg Documented by: Metoprolol Tartrate (Lopressor) 12.5 mg PO BID [facility] Last Admin: 11/11/19 09:36 Dose: 12.5 mg Documented by: Naloxone HCl (Narcan) 0.2 mg IV Q2M PRN PRN Reason: Opioid Reversal Nitroglycerin (Nitrostat) 0.4 mg SUBLINGUAL Q5M PRN PRN Reason: Chest Pain Pantoprazole Sodium (Protonix) 40 mg IVP BID [facility] Last Admin: 11/11/19 09:36 Dose: 40 mg Documented by: Quetiapine Fumarate (Seroquel) 25 mg PO HS [facility] Last Admin: 11/10/19 22:25 Dose: 25 mg Documented by: Tamsulosin HCl (Flomax) 0.4 mg PO PC-BRKFST [facility] Last Admin: 11/11/19 09:35 Dose: 0.4 mg Documented by: On examination: VITAL SIGNS: Afebrile, 75, 18, 141/79, 96% on 2 L GENERAL APPEARANCE: BMI 20.1, laying in bed awake HEENT: Normal external appearance of nose and ear. Oral cavity normal EYES: Pupils equal. Conjunctiva pale NECK: JVD not raised. Mass not palpable. RESPIRATORY: Respiratory effort normal. Decreased breath sounds CARDIOVASCULAR: First and second sounds normal. No edema. ABDOMEN: Soft. Liver and spleen not palpable. No tenderness. No mass palpable. DERMATOLOGICAL: Multiple decubitus ulcers see nursing note PSYCHIATRY: Awake, answering simple questions EXTREMITY:. Left above-knee amputation. Assessment: -Acute GI bleed-EGD unremarkable, patient refused colonoscopy preparation -Acute blood loss anemia , from GI tract, received one unit of blood -nonsustained V. tach -Left gluteus unstageable ulcer, right gluteus also stage II right lower extremity second digit ulcer -Persistent atrial fibrillation on Eliquis at home -coronary artery disease status post stent placement in RCA and LAD was on Plavix -Diabetes mellitus -Hypothyroid -Chronic kidney disease stage II secondary to diabetes mellitus -Essential Hypertension -coronary artery disease -Benign prostatic hypertrophy -Peripheral artery disease -Left above-knee amputation - anxiety and depression, Plan: Colonoscopy has been canceled as per GI because patient not taking bowel preparation. Plavix has been resumed because of recent coronary intervention. Hemoglobins remained stable. Plan for discharge DC to [facility] tomorrow Plan: This is a pleasant 64 years old male who presents with GI bleeds, continue with IV Protonix, hold Eliquis till cleared by GI team, continue with Plavix but we w ill hold again if his hemoglobin droppingLYTELY for repeat colonoscopy, in the meantime keep him on liquid diet We will call cardiology consult patient is followed closely by ad clerk, his colonoscopy was terminated because of low preparation. We will follow with GI team recommendation Labs and medication were reviewed.. Continue same treatment. Continue with symptomatic treatment. Resume home medication. Monitor lytes and vitals. DVT and GI prophylaxis. Further recommendations of the clinical course of the patient DVT prophylaxis: No anticoagulation in view of GI bleeds. Continue with mechanical and Plavix GI Prophylaxis: Protonix Prognosis is guarded
[2019-11-11 20:38] LABS: Glucose,Whole Blood 85 mg/dL (75-99)
[2019-11-11] MEDS: QUEtiapine 25 MG TAB PO SCH (21:44)
[2019-11-12] MEDS: SODIUM CHLORIDE 0.9% 1,000 ML IV SCH ×3 (01:17→04:44)
[2019-11-12 05:19] VITALS: BP 136/73; PULSE 82; RESP 20; TEMP 96.7
[2019-11-12] MEDS: LEVOTHYROXINE 25 MCG TAB PO SCH (05:25)
[2019-11-12] MEDS: PANTOPRAZOLE 40 MG/10 ML VIAL IVP SCH (07:44)
[2019-11-12] MEDS: HYDROcodone/APAP 10-325MG 1 EACH TAB PO SCH (07:44)
[2019-11-12] MEDS: TAMSULOSIN 0.4 MG CAP.ER.24H PO SCH (07:45)
[2019-11-12] MEDS: LISINOPRIL 2.5 MG TAB PO SCH (07:45)
[2019-11-12] MEDS: ALLOPURINOL 100 MG TAB PO SCH (07:45)
[2019-11-12] MEDS: ATORVASTATIN 40 MG TAB PO SCH (07:45)
[2019-11-12] MEDS: METOPROLOL TARTRATE 12.5 MG TAB PO SCH (07:46)
[2019-11-12] MEDS: FLUoxetine HCL 20 MG CAP PO SCH (07:46)
[2019-11-12] MEDS: FERROUS SULFATE 325 MG TAB PO SCH ×2 (07:46→12:21)
[2019-11-12] MEDS: MAGNESIUM OXIDE 400 MG TAB PO SCH (07:46)
[2019-11-12] MEDS: CLOPIDOGREL 75 MG TAB PO SCH (07:46)
[2019-11-12] MEDS: FUROSEMIDE 40 MG TAB PO SCH (07:47)
[2019-11-12 08:43] LABS: Anisocytosis Slight; Basophils % (A) 0 %; Eosinophils # (A) 0.5 k/uL (0-0.7); Eosinophils % (A) 3 %; HCT 28.1 % (39.0-53.0); HGB 8.2 gm/dL (13.0-17.5); Hypochromasia Marked; Lymphocytes # (A) 2.1 k/uL (1.0-4.8); Lymphocytes % (A) 15 %; MCH 25.4 pg (25.0-35.0); MCHC 29.2 g/dL (31.0-37.0); MCV 87.2 fL (80.0-100.0); Mean Platelet Volume 8.9; Monocytes # (A) 0.5 k/uL (0-1.0); Monocytes % (A) 4 %; Neutrophils # (A) 10.7 k/uL (1.3-7.7); Neutrophils % (A) 76 %; Platelet Count 337 k/uL (150-450); Poikilocytosis Slight; RBC 3.22 m/uL (4.30-5.90); RDW 17.3 % (11.5-15.5); WBC 14.1 k/uL (3.8-10.6)
[2019-11-12] MEDS ORDERED: ASPIRIN 81 MG PO SCH (09:00)
[2019-11-12 10:09] LABS: Mixed Population RBC Present; Ovalocytes Present
--- NOTE | 2019-11-12 11:48 | P.PN ---
Subjective HISTORY OF PRESENTING ILLNESS This is a pleasant 64-year-old -[place] male past medical history significant for chronic persistent atrial fibrillation on long-term anticoagulation with Eliquis, coronary artery disease status post multivessel PCI most recently in October 2019, COPD, diabetes mellitus, hypertension, dyslipidemia, peripheral vascular disease status post left [id number]-[id number] amputation, history of alcohol abuse in the past, mitral valve replacement, carotid endarterectomy and former nicotine dependence. He follows in the office with Dr. Godoy. He underwent cardiac catheterization of October 2019 in the setting of non-ST elevated myocardial infarction, successful PCI of the LAD and RCA were performed at that time. Maintained on Plavix along with Eliquis for atrial fibrillation. 6 has been resumed and Eliquis continues to be on hold pending colonoscopy. Colonoscopy has been attempted and unable to perform due to poor prep 3. GI is recommending medical management at this point. Laboratory data reviewed, WBC 14.1, hemoglobin 8.2, plt 337. Blood pressure 136/73 heart rate 82 afebrile maintaining oxygen saturation on room air. PHYSICAL EXAMINATION CONSTITUTIONAL: No apparent distress. HEENT: Head is normocephalic. Pupils are equal, round. Sclerae anicteric. Mucous membranes of the mouth are moist. No JVD. No carotid bruit. CHEST EXAMINATION: Lungs are clear to auscultation. No chest wall tenderness is noted on palpation or with deep breathing. HEART EXAMINATION: Irregular rate and rhythm. S1, S2 heard. Soft systolic ejection murmur at the apex, no gallops or rub. EXTREMITIES: Left qjusw-lar-suns amputation, right lower extremity with multiple areas of skin discoloration with chronic nonhealing ulcer on the right heel. ASSESSMENT Chronic persistent atrial fibrillation on long-term anticoagulation. Symptomatic anemia status post blood transfusion. EGD unremarkable for active bleeding, colonoscopy will be attempted tomorrow. Ischemic cardiomyopathy Chronic systolic heart failure, clinically euvolemic. Coronary artery disease status post PCI October 2019 maintained on Plavix Hypertension Dyslipidemia Diabetes mellitus COPD Peripheral vascular disease status post left gyoqq-flh-fepl amputation and carotid endarterectomy PLAN Given the inability to perform a colonoscopy we recommend at this time discharge home on aspirin and Plavix. Hold Eliquis until follow-up appointment with Dr. Godoy. If he has no further evidence of GI bleeding and his hemoglobin remained stable the Eliquis can possibly be resumed at that time and aspirin can be discontinued. Nurse Practitioner note has been reviewed, I agree with a documented findings and plan of care. Patient was seen and examined. Objective - Vital Signs Vital signs: Vital Signs Temp 96.7 F L 11/12/19 04:45 Pulse 82 11/12/19 04:45 Resp 20 11/12/19 04:45 BP 136/73 11/12/19 04:45 Pulse Ox 91 L 11/12/19 04:45 Intake & Output 11/11/19 11/12/19 11/12/19 18:59 06:59 18:59 Intake Total 240 Output Total 400 600 Balance -160 -600 Intake: Oral 240 Output: Urine 400 600 Other: Voiding Method Indwelling Catheter Indwelling Catheter Indwelling Catheter # Voids 275 # Bowel Movements 1 - Labs CBC & Chem 7: 11/12/19 07:17 11/10/19 05:34 Labs: Abnormal Lab Results - Last 24 Hours (Table) 11/11/19 11/12/19 Range/Units 16:20 07:17 WBC 14.1 H (3.8-10.6) k/uL RBC 3.22 L (4.30-5.90) m/uL Hgb 8.2 L (13.0-17.5) gm/dL Hct 28.1 L (39.0-53.0) % MCHC 29.2 L (31.0-37.0) g/dL RDW 17.3 H (11.5-15.5) % Neutrophils # 10.7 H (1.3-7.7) k/uL POC Glucose (mg/dL) 124 H (75-99) mg/dL Microbiology - Last 24 Hours (Table) 11/06/19 02:23 Blood Culture - Final Blood No Growth after 144 hours
--- NOTE | 2019-11-12 12:01 | P.DS ---
Providers Date of admission: 11/06/19 04:30 Expected date of discharge: 11/12/19 Attending physician: Federico Alston Consults: 11/06/19 03:49 Consult Physician Routine Consulting Provider: Armida Godoy Consult Reason/Comments: GI bleed Do you want consulting provider notified?: Yes 11/08/19 09:30 Consult Physician Urgent Consulting Provider: Ignacio Higginbotham Consult Reason/Comments: refusing treatments/assess for capacity Do you want consulting provider notified?: Yes 11/09/19 13:23 Consult Physician Urgent Consulting Provider: Rafa Rasmussen Consult Reason/Comments: v. tack , recent stent Do you want consulting provider notified?: Yes Primary care physician: [facility] Course: Presenting complaint: Anemia Interval history: This is a pleasant [address] 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 Presents with GI bleed where he was sent from his primary care doctor Dr. Gutierrez, patient has mild dizziness on and off, however he denies brayan blood per rectum, no abdominal pain, no nausea vomiting,, no chest pain or dyspnea. Underwent EGD coloscopy. EGD was unremarkable. Colonoscopy showed poor preparation. Seen by psychiatry. Diagnosed with-depressive disorder unspecified. Patient refusing bowel preparation hence colonoscopy was canceled by GI. Patient very recently had coronary intervention. Hence aspirin and Plavix has been resumed. Eliquis has been held. Today-stable. Oral intake variable amounts. Overall prognosis guarded. Discussed with GI. DC back to [facility]. He will see his bellows filler to determine and patient can go back eliquis. Consultation: Dr. Lehman from GI Dr. AUDIE Rasmussen from cardiology Dr. Higginbotham from psychiatry On examination: VITAL SIGNS: 96.7, 82, 20, 136/73, 91% on room air GENERAL APPEARANCE: BMI 20.1, laying in bed awake HEENT: Normal external appearance of nose and ear. Oral cavity normal EYES: Pupils equal. Conjunctiva pale NECK: JVD not raised. Mass not palpable. RESPIRATORY: Respiratory effort normal. Decreased breath sounds CARDIOVASCULAR: First and second sounds normal. No edema. ABDOMEN: Soft. Liver and spleen not palpable. No tenderness. No mass palpable. DERMATOLOGICAL: Multiple decubitus ulcers see nursing note PSYCHIATRY: Awake, answering simple questions EXTREMITY:. Left above-knee amputation. Assessment: -Acute GI bleed-EGD unremarkable, patient refused colonoscopy preparation -Acute blood loss anemia , from GI tract, received one unit of blood -nonsustained V. tach -Left gluteus unstageable ulcer, right gluteus also stage II right lower extremity second digit ulcer -Persistent atrial fibrillation on Eliquis at home, currently held -coronary artery disease status post stent placement in RCA and LAD was on Plavix -Diabetes mellitus -Hypothyroid -Chronic kidney disease stage II secondary to diabetes mellitus -Essential Hypertension -coronary artery disease -Benign prostatic hypertrophy -Peripheral artery disease -Left above-knee amputation - anxiety and depression, Disposition: [facility] Patient Condition at Discharge: Stable Plan - Discharge Summary Discharge Rx Participant: No New Discharge Prescriptions: New Aspirin 81 mg PO DAILY chew Ferrous Sulfate [Iron (65 MG Elemental)] 325 mg PO TID-W/MEALS tab Omeprazole [PriLOSEC] 20 mg PO AC-BID #1 cap QUEtiapine [SEROquel] 25 mg PO HS #3 tab Continue FLUoxetine HCL [PROzac] 20 mg PO DAILY Levothyroxine Sodium [Synthroid] 25 mcg PO DAILY Acetaminophen Tab [Tylenol] 650 mg PO Q6HR PRN tab PRN Reason: Fever And/ Or Pain Lisinopril [Zestril] 2.5 mg PO DAILY Allopurinol [Zyloprim] 100 mg PO DAILY Clopidogrel [Plavix] 75 mg PO DAILY Metoprolol Tartrate [Lopressor] 50 mg PO BID Tamsulosin [Flomax] 0.4 mg PO PC-BRKFST cap.er.24h Atorvastatin [Lipitor] 40 mg PO DAILY tab Magnesium Oxide [Mag-Ox] 400 mg PO BID tab Nitroglycerin Sl Tabs [Nitrostat] 0.4 mg SUBLINGUAL Q5M PRN tab PRN Reason: Chest Pain Cholestyramine (with Sugar) [Questran Packet] 4 gm PO TID BETWEEN MEALS PRN packet PRN Reason: Diarrhea Hydrophilic Cream [Triad Cream] 1 applic TOPICAL DAILY applic Ipratropium-Albuterol Nebulize [Duoneb 0.5 mg-3 mg/3 ml Soln] 3 ml INHALATION RT-QID PRN #0 ampul.neb PRN Reason: Shortness Of Breath Or Wheezing Furosemide [Lasix] 40 mg PO DAILY #10 tablet HYDROcodone/APAP 10-325MG [[place] 10-325] 1 tab PO QID PRN #10 tab PRN Reason: Pain Discontinued Apixaban [Eliquis] 5 mg PO BID tab Furosemide [Lasix] 20 mg PO HS #10 tab Famotidine [Pepcid] 20 mg PO BID #30 tablet Discharge Medication List FLUoxetine HCL [PROzac] 20 mg PO DAILY 03/26/15 [History] Levothyroxine Sodium [Synthroid] 25 mcg PO DAILY 03/26/15 [History] Acetaminophen Tab [Tylenol] 650 mg PO Q6HR PRN tab 10/04/17 [Rx] Allopurinol [Zyloprim] 100 mg PO DAILY 10/10/19 [History] Clopidogrel [Plavix] 75 mg PO DAILY 10/10/19 [History] Lisinopril [Zestril] 2.5 mg PO DAILY 10/10/19 [History] Metoprolol Tartrate [Lopressor] 50 mg PO BID 10/10/19 [History] Atorvastatin [Lipitor] 40 mg PO DAILY tab 10/21/19 [Rx] Cholestyramine (with Sugar) [Questran Packet] 4 gm PO TID BETWEEN MEALS PRN packet 10/21/19 [Rx] Furosemide [Lasix] 40 mg PO DAILY #10 tablet 10/21/19 [Rx] Hydrophilic Cream [Triad Cream] 1 applic TOPICAL DAILY applic 10/21/19 [Rx] Ipratropium-Albuterol Nebulize [Duoneb 0.5 mg-3 mg/3 ml Soln] 3 ml INHALATION RT-QID PRN #0 ampul.neb 10/21/19 [Rx] Magnesium Oxide [Mag-Ox] 400 mg PO BID tab 10/21/19 [Rx] Nitroglycerin Sl Tabs [Nitrostat] 0.4 mg SUBLINGUAL Q5M PRN tab 10/21/19 [Rx] Tamsulosin [Flomax] 0.4 mg PO PC-BRKFST cap.er.24h 10/21/19 [Rx] Aspirin 81 mg PO DAILY chew 11/12/19 [Rx] Ferrous Sulfate [Iron (65 MG Elemental)] 325 mg PO TID-W/MEALS tab 11/12/19 [Rx] HYDROcodone/APAP 10-325MG [[place] 10-325] 1 tab PO QID PRN #10 tab 11/12/19 [Rx] Omeprazole [PriLOSEC] 20 mg PO AC-BID #1 cap 11/12/19 [Rx] QUEtiapine [SEROquel] 25 mg PO HS #3 tab 11/12/19 [Rx] Follow up Appointment(s)/Referral(s): Ingacio Gutierrez DO [Primary Care Provider] - 1-2 days Armida Godoy MD [STAFF PHYSICIAN] - 10 Days Bradford Godoy MD [STAFF PHYSICIAN] - 1 Week Discharge Disposition: HOME SELF-CARE
--- NOTE | 2019-11-12 19:43 | P.PN ---
Subjective Progress Note Date: 11/12/19 Principal diagnosis: Severe symptomatic anemia, stool positive for occult blood Patient seen lying in bed with no acute complaints. Denying any signs or symptoms of GI bleeding. Objective - Vital Signs Vital signs: Vital Signs Temp 96.7 F L 11/12/19 04:45 Pulse 82 11/12/19 04:45 Resp 20 11/12/19 04:45 BP 136/73 11/12/19 04:45 Pulse Ox 91 L 11/12/19 04:45 Intake & Output 11/11/19 11/12/19 11/12/19 18:59 06:59 18:59 Intake Total 240 Output Total 400 600 Balance -160 -600 Intake: Oral 240 Output: Urine 400 600 Other: Voiding Method Indwelling Catheter Indwelling Catheter Indwelling Catheter # Voids 275 # Bowel Movements 1 - Exam On physical examination, patient appears comfortable in no apparent distress. HEAD: Normocephalic, atraumatic. EYES: No scleral icterus. No conjunctival injection. MOUTH: No lesions, tongue midline. NECK: Trachea midline, no gross abnormalities. ABDOMEN: Soft, thin and nontender. Bowel sounds are positive. No organomegaly. No guarding or rigidity. SKIN: No rashes, no jaundice. NEUROLOGIC: Alert and oriented to person. - Labs CBC & Chem 7: 11/12/19 07:17 11/10/19 05:34 Labs: Abnormal Lab Results - Last 24 Hours (Table) 11/11/19 11/12/19 Range/Units 16:20 07:17 WBC 14.1 H (3.8-10.6) k/uL RBC 3.22 L (4.30-5.90) m/uL Hgb 8.2 L (13.0-17.5) gm/dL Hct 28.1 L (39.0-53.0) % MCHC 29.2 L (31.0-37.0) g/dL RDW 17.3 H (11.5-15.5) % POC Glucose (mg/dL) 124 H (75-99) mg/dL Microbiology - Last 24 Hours (Table) 11/06/19 02:23 Blood Culture - Final Blood No Growth after 144 hours Assessment and Plan (1) Symptomatic anemia Narrative/Plan: 64-year-old male presenting with severe symptomatic anemia with a hemoglobin of 6 currently 8.2. There were no signs or symptoms of GI bleeding however stool testing was positive for occult blood. The patient had EGD on 11/06 with findings of a hiatal hernia with no evidence of active bleeding noted and colonoscopy attempted at that time was incomplete due to poor prep. The patient was then again prepped for a colonoscopy which she failed to follow through on and was again offered a colonoscopy yesterday and agreed to prep however only took one glass last night. There's been no further evidence of GI bleeding. Unknown etiology of anemia may be multifactorial given anemia of chronic disease, c hronic ulcerations with no evidence of active GI bleed at this time. Status: Acute Code(s): D64.9 - ANEMIA, UNSPECIFIED SNOMED Code(s): 422761019 Plan: Supportive care Okay for diet Continue to monitor hemoglobin and hematocrit and transfuse as needed Okay for anticoagulation and antiplatelet therapy as needed Patient has refused to prep for a colonoscopy on 3 occasions and at this time would recommend medical management as he is unwilling to prep for the procedure Thank you for allowing us to participate in the care of the patient we will continue to monitor
[2019-11-13] MEDS ORDERED: FUROSEMIDE 10 MG/ML 4 ML VIAL IV SCH (09:00)
--- NOTE | 2019-11-25 08:03 | CDI ---
Documentation Clarification Form Date: 11/25/2019 07:45:48 AM From: Alessia Trujillo Phone: Admit Date: 11/06/2019 04:30:00 AM Patient Name: Reddy Maradiaga Visit Number: [id number] Discharge Date: 11/12/2019 02:50:00 PM ATTENTION: The Clinical Documentation Specialists (CDI) and [facility] Coding Staff appreciate your assistance in clarifying documentation. Please respond to the clarification below the line at the bottom and electronically sign. The CDI & [facility] Coding staff will review the response and follow-up if needed. Please note: Queries are made part of the Legal Health Record. If you have any questions, please contact the author of this message via ITS. Dr. Federico Alston Per RD notes a stage IV pressure ulcer documented to right finger. DCS documents multiple decubitus ulcers see nurses notes. Please clarify the etiology of the finger ulcer whether diabetic, vascular, pressure ulcer, non pressure ulcer. Patient history/risk factors: Patient with PAD with amputation and DM. Patient with type II DM with skin ulcers. C Labs: Wound assessment Nursing: Stage IV decubitus ulcer right finger In your professional opinion, can the etiology of the wound be further specified as one of the following? Diabetic ulcer PAD ulcer Pressure ulcer Non Pressure ulcer Etiology: Non-pressure chronic ulcer due to diabetes Non-pressure chronic ulcer due to arterial insufficiency Non-pressure chronic ulcer due to venous insufficiency Non-pressure chronic ulcer due to trauma Other, Please specify Unable to determine Severity: Limited to breakdown of skin With fat layer exposed With necrosis of muscle With necrosis of bone Other, Please specify Unable to determine MTDD
--- NOTE | 2019-12-02 13:12 | CDI ---
ocumentation Clarification Form Date: 11/25/2019 06:45:00 AM From: Alessia Trujillo Phone: ? If you have a question about this query, please contact [employer] Worker at [phone] between 8am and 5pm. Admit Date: 11/06/2019 04:30:00 AM Patient Name: Reddy Maradiaga Visit Number: [id number] Discharge Date: 11/12/2019 02:50:00 PM ATTENTION: The Clinical Documentation Specialists (CDI) and [facility] Coding Staff appreciate your assistance in clarifying documentation. Please respond to the clarification below the line at the bottom and electronically sign. The CDI & [facility] Coding staff will review the response and follow-up if needed. Please note: Queries are made part of the Legal Health Record. If you have any questions, please contact the author of this message via ITS. Dr. Federico Alston Per RD notes a stage IV pressure ulcer documented to right finger. DCS documents multiple decubitus ulcers see nurses notes. Please clarify the etiology of the finger ulcer whether diabetic, vascular, pressure ulcer, non pressure ulcer. Patient history/risk factors: Patient with PAD with amputation and DM. Patient with type II DM with skin ulcers. C Labs: Wound assessment Nursing: Stage IV decubitus ulcer right finger In your professional opinion, can the etiology of the wound be further specified as one of the following? Diabetic ulcer PAD ulcer Pressure ulcer Non Pressure ulcer Etiology: Non-pressure chronic ulcer due to diabetes Non-pressure chronic ulcer due to arterial insufficiency Non-pressure chronic ulcer due to venous insufficiency Non-pressure chronic ulcer due to trauma Other, Please specify Unable to determine Severity: Limited to breakdown of skin With fat layer exposed With necrosis of muscle With necrosis of bone Other, Please specify Unable to determine Unable to determine MTDD
--- NOTE | 2019-12-02 13:51 | CDI ---
ocumentation Clarification Form Date: 11/25/2019 06:45:00 AM From: Alessia Trujillo Phone: ? If you have a question about this query, please contact Jie [employer] Treater at [phone] between 8am and 5pm. Admit Date: 11/06/2019 04:30:00 AM Patient Name: Reddy Maradiaga Visit Number: [id number] Discharge Date: 11/12/2019 02:50:00 PM ATTENTION: The Clinical Documentation Specialists (CDI) and [facility] Coding Staff appreciate your assistance in clarifying documentation. Please respond to the clarification below the line at the bottom and electronically sign. The CDI & [facility] Coding staff will review the response and follow-up if needed. Please note: Queries are made part of the Legal Health Record. If you have any questions, please contact the author of this message via ITS. Dr. Doan Per RD notes a stage IV pressure ulcer documented to right finger. DCS documents multiple decubitus ulcers see nurses notes. Please clarify the etiology of the finger ulcer whether diabetic, vascular, pressure ulcer, non pressure ulcer. Patient history/risk factors: Patient with PAD with amputation and DM. Patient with type II DM with skin ulcers. C Labs: Wound assessment Nursing: Stage IV decubitus ulcer right finger In your professional opinion, can the etiology of the wound be further specified as one of the following? Diabetic ulcer PAD ulcer Pressure ulcer Non Pressure ulcer Etiology: Non-pressure chronic ulcer due to diabetes Non-pressure chronic ulcer due to arterial insufficiency Non-pressure chronic ulcer due to venous insufficiency Non-pressure chronic ulcer due to trauma Other, Please specify Unable to determine Severity: Limited to breakdown of skin With fat layer exposed With necrosis of muscle With necrosis of bone Other, Please specify Unable to determine MTDD
== END 2019-11-12 14:50 | DRG 378 ==
LOC: EC 00:34 → 3SCARD 04:30 → 6NMEDSUR 11-11 22:53
PROVIDERS: ADMIT Hospitalist; ATTEND Hospitalist
PROC: 30233N1 Transfusion of Nonautologous Red Blood Cells into Peripheral Vein, Percutaneous Approach (ICD-10-PCS; 2019-11-06)
PROC: 0DJ08ZZ Inspection of Upper Intestinal Tract, Via Natural or Artificial Opening Endoscopic (ICD-10-PCS; principal; 2019-11-07 09:15)
DX: K25.4 Chronic or unspecified gastric ulcer with hemorrhage (principal); I50.22 Chronic systolic (congestive) heart failure; D62 Acute posthemorrhagic anemia; I13.0 Hypertensive heart and chronic kidney disease with heart failure and stage 1 through stage 4 chronic kidney disease, or unspecified chronic kidney disease; I47.2 Ventricular tachycardia; I48.19 Other persistent atrial fibrillation; E03.9 Hypothyroidism, unspecified; E11.22 Type 2 diabetes mellitus with diabetic chronic kidney disease; E11.51 Type 2 diabetes mellitus with diabetic peripheral angiopathy without gangrene; E11.621 Type 2 diabetes mellitus with foot ulcer; E11.622 Type 2 diabetes mellitus with other skin ulcer; E78.5 Hyperlipidemia, unspecified; F17.210 Nicotine dependence, cigarettes, uncomplicated; F32.9 Major depressive disorder, single episode, unspecified; F41.9 Anxiety disorder, unspecified; I25.10 Atherosclerotic heart disease of native coronary artery without angina pectoris; I25.2 Old myocardial infarction; I25.5 Ischemic cardiomyopathy; I27.20 Pulmonary hypertension, unspecified; J44.9 Chronic obstructive pulmonary disease, unspecified; K44.9 Diaphragmatic hernia without obstruction or gangrene; L89.312 Pressure ulcer of right buttock, stage 2; L89.320 Pressure ulcer of left buttock, unstageable; L97.512 Non-pressure chronic ulcer of other part of right foot with fat layer exposed; N18.3 Chronic kidney disease, stage 3 (moderate); N40.0 Benign prostatic hyperplasia without lower urinary tract symptoms; Z79.01 Long term (current) use of anticoagulants; Z79.02 Long term (current) use of antithrombotics/antiplatelets; Z79.890 Hormone replacement therapy; Z79.899 Other long term (current) drug therapy; Z83.3 Family history of diabetes mellitus; K29.80 Duodenitis without bleeding; Z53.09 Procedure and treatment not carried out because of other contraindication; Z89.612 Acquired absence of left leg above knee; Z95.2 Presence of prosthetic heart valve; Z95.5 Presence of coronary angioplasty implant and graft; F12.10 Cannabis abuse, uncomplicated; Z60.2 Problems related to living alone
CPT/HCPCS: 36415; 43235; 71045; 80048; 80053; 81003; 82272; 83605; 85025; 85027; 85610; 85730; 86850; 86900; 86901; 86920; 87040; 87324; 93005; 93306; 94640; 96361; 96365; 99285

== ENCOUNTER 2019-11-13 13:56 | Inpatient (IN) | payer MEDICARE, OTHER ==
[~2019-11-13 13:56] MED LIST: ETOMIDATE 2 MG/ML 10 ML VIAL ONE; SUCCINYLCHOLINE CHLORIDE VIAL 200 MG/10 ML VIAL IV ONE
[2019-11-13] MEDS ORDERED: ACETAMINOPHEN TAB 325 MG TAB PO STA (14:54)
[2019-11-13] MEDS: SODIUM CHLORIDE 0.9% 500 ML 500 ML IV SCH ×2 (14:59→17:34)
[2019-11-13 15:24] LABS: ALT 22 U/L (4-49); AST 55 U/L (17-59); African American GFR (CKD) >90 (>60 ml/min/1.73 sqM); Alkaline Phosphatase 96 U/L (38-126); Anion Gap 4 mmol/L; Blood Urea Nitrogen 17 mg/dL (9-20); Calcium 7.7 mg/dL (8.4-10.2); Carbon Dioxide 20 mmol/L (22-30); Chloride 113 mmol/L (98-107); Glucose 112 mg/dL (74-99); Non-African American GFR(CKD) 80 (>60 ml/min/1.73 sqM); Potassium 3.9 mmol/L (3.5-5.1); Sodium 137 mmol/L (137-145); Total Bilirubin 0.6 mg/dL (0.2-1.3); Total Protein 5.1 g/dL (6.3-8.2)
[2019-11-13 15:27] LABS: INR 1.2 (<1.2); Partial Thromboplastin Time 27.4 sec (22.0-30.0); Prothrombin Time 12.2 sec (9.0-12.0)
--- NOTE | 2019-11-13 15:29 | XR ---
EXAMINATION TYPE: XR chest 1V portable DATE OF EXAM: 11/13/2019 COMPARISON: 11/06/2019 INDICATION: Fever chronic sacral wounds TECHNIQUE: Single frontal view of the chest is obtained. FINDINGS: The heart size is normal. Sternotomy wires are present from prior surgery. The pulmonary vasculature is normal. There is a right lower lobe consolidation. Correlate for pneumonia. There is blunting left costophrenic angle with some thickening along the left pleural margin compatib le with a small left pleural effusion. IMPRESSION: 1. Right lower lobe consolidation. Correlate for pneumonia. 2. Small left pleural effusion
[2019-11-13 15:35] LABS: Anisocytosis Slight; Basophils % (A) 0 %; Eosinophils # (A) 0.2 k/uL (0-0.7); Eosinophils % (A) 2 %; HCT 22.6 % (39.0-53.0); Hypochromasia Marked; Lymphocytes # (A) 1.1 k/uL (1.0-4.8); Lymphocytes % (A) 10 %; MCH 25.8 pg (25.0-35.0); MCHC 30.4 g/dL (31.0-37.0); MCV 85.2 fL (80.0-100.0); Mean Platelet Volume 8.7; Monocytes # (A) 0.7 k/uL (0-1.0); Monocytes % (A) 6 %; Neutrophils # (A) 8.9 k/uL (1.3-7.7); Neutrophils % (A) 81 %; Platelet Count 310 k/uL (150-450); Poikilocytosis Slight; RBC 2.66 m/uL (4.30-5.90); RDW 17.5 % (11.5-15.5)
[2019-11-13 16:02] LABS: HGB 6.9 gm/dL (13.0-17.5)
[2019-11-13] MEDS ORDERED: VANCOMYCIN IV PER PHARMACY 1 EACH MISC MISCELLANE PRN (16:25)
[2019-11-13] MEDS ORDERED: PANTOPRAZOLE 40 MG/10 ML VIAL IVP STA (16:26)
[2019-11-13] MEDS ORDERED: VANCOMYCIN 1,250 MG in SODIUM CHLORIDE 0.9% 250 ML IVPB STA (16:31)
[2019-11-13] MEDS ORDERED: CEFEPIME 2 GM in SODIUM CHLORIDE 0.9% 100 ML IVPB ONE (17:00)
[2019-11-13] MEDS ORDERED: ACETAMINOPHEN TAB 325 MG TAB PO PRN ×2 (17:23→20:45)
[2019-11-13] MEDS ORDERED: NALOXONE 0.4 MG/ML 1 ML VIAL IV PRN (17:23)
--- NOTE | 2019-11-13 17:28 | ED ---
General Adult HPI - General Source: patient, EMS, RN notes reviewed, old records reviewed Mode of arrival: EMS Limitations: no limitations <Tito Barros - Last Filed: 11/13/19 17:22> <Tristin Montelongo - Last Filed: 11/13/19 18:00> - General Chief complaint: Skin/Abscess/Foreign Body Stated complaint: Bed Sores Time Seen by Provider: 11/13/19 14:06 - History of Present Illness Initial comments: 64-year-old male patient with extensive past smoking history presents to ED for evaluation of chronic sacral wound. Patient is discharged yesterday from this facility for GI bleed, acute blood loss anemia, gluteal ulcers. Patient was seen by the physician in the last few recommended coming back to emergency d epartment as he states that the wounds are worse than before. On evaluation patient does report that he does have pain in his gluteal region however denies any chest pain shortness breath, denies any fevers. Systemic: Pt denies fatigue, fever/chills, rash. Pt denies weakness, night sweats, weight loss. Neuro: Pt denies headache, visual disturbances, syncope or pre-syncope. HEENT: Pt denies ocular discharge or irritation, otalgia, rhinorrhea, pharyngitis or notable lymphadenopathy. Cardiopulmonary: Pt denies chest pain, SOB, heart palpitations, dyspnea on exertion. Abdominal/GI: Pt denies abdominal pain, n/v/d. : Pt denies dysuria, burning w/ urination, frequency/urgency. Denies new onset urinary or bowel incontinence. MSK: Pt denies myalgia, loss of strength or function in extremities. Neuro: Pt denies new onset weakness, paresthesias. (Tito Barros) - Related Data Home Medications Medication Instructions Recorded Confirmed FLUoxetine HCL [PROzac] 20 mg PO DAILY@79903/26/15 11/13/19 Levothyroxine Sodium [Synthroid] 25 mcg PO DAILY 03/26/15 11/13/19 Allopurinol [Zyloprim] 100 mg PO DAILY@79910/10/19 11/13/19 Clopidogrel [Plavix] 75 mg PO DAILY@79910/10/19 11/13/19 Lisinopril [Zestril] 2.5 mg PO DAILY@0800 10/10/19 11/13/19 Metoprolol Tartrate [Lopressor] 50 mg PO BID@0800,1700 10/10/19 11/13/19 Aspirin 81 mg PO DAILY@0800 11/13/19 11/13/19 Bisacodyl [Dulcolax] 10 mg RECTAL DAILY PRN 11/13/19 11/13/19 Cholestyramine (with Sugar) 4 gm PO PC-TID PRN 11/13/19 11/13/19 [Questran Packet] Ferrous Sulfate [Iron (65 MG 325 mg PO AC-TID 11/13/19 11/13/19 Elemental)] Furosemide [Lasix] 40 mg PO DAILY@0800 11/13/19 11/13/19 Magnesium Hydroxide [Milk of 72,000 mg PO Q48H PRN 11/13/19 11/13/19 Magnesia Concentrate] Magnesium Oxide [Mag-Ox] 400 mg PO BID@0800,1700 11/13/19 11/13/19 Na Phos,M-B/Na Phos,Di-Ba [Fleet 133 ml RECTAL DAILY PRN 11/13/19 11/13/19 Adult] Omeprazole [PriLOSEC] 20 mg PO DAILY 11/13/19 11/13/19 QUEtiapine [SEROquel] 25 mg PO HS@2100 11/13/19 11/13/19 Tamsulosin [Flomax] 0.4 mg PO PC-BRKFST@0800 11/13/19 11/13/19 Previous Rx's Medication Instructions Recorded Acetaminophen Tab [Tylenol] 650 mg PO Q6HR PRN tab 10/04/17 Atorvastatin [Lipitor] 40 mg PO DAILY tab 10/21/19 Ipratropium-Albuterol Nebulize 3 ml INHALATION RT-QID PRN #0 10/21/19 [Duoneb 0.5 mg-3 mg/3 ml Soln] ampul.neb Nitroglycerin Sl Tabs [Nitrostat] 0.4 mg SUBLINGUAL Q5M PRN tab 10/21/19 HYDROcodone/APAP 10-325MG [[place] 1 tab PO QID PRN #10 tab 11/12/19 10-325] Allergies Allergy/AdvReac Type Severity Reaction Status Date / Time No Known Allergies Allergy Verified 11/13/19 15:30 Review of Systems ROS Other: All systems not noted in ROS Statement are negative. <Tito Barros - Last Filed: 11/13/19 17:22> ROS Other: All systems not noted in ROS Statement are negative. <Tristin Montelongo - Last Filed: 11/13/19 18:00> ROS Statement: Those systems with pertinent positive or pertinent negative responses have been documented in the HPI. Past Medical History Past Medical History: Atrial Fibrillation, Coronary Artery Disease (CAD), COPD, Diabetes Mellitus, GERD/Reflux, Hyperlipidemia, Hypertension, Myocardial Infarction (MD), Thyroid Disorder, Vascular Disorder Additional Past Medical History / Comment(s): Other Hx: Chronic kidney disease stage III, hypothyroid, PAD, diverticular dx, past ETOH abuse. Anxiety/Depression Last Myocardial Infarction Date:: 09/2011 History of Any Multi-Drug Resistant Organisms: C-DIFF Date of last positivie culture/infection: 10/10/2019 MDRO Source:: Sep 2019 Past Surgical History: Cardiac Valve Replacement, Heart Catheterization With Stent Additional Past Surgical History / Comment(s): Mitral Valve replacement, Left above the knee amputation, Femoral-Popliteal Bypass. Endarterectomy Past Anesthesia/Blood Transfusion Reactions: No Reported Reaction Date of Last Stent Placement:: 10/2019 Past Psychological History: Anxiety, Depression Smoking Status: Former smoker Past Alcohol Use History: Occasional Past Drug Use History: Marijuana - Past Family History Mother Family Medical History: Diabetes Mellitus, Deep Vein Thrombosis (DVT) <Tito Barros - Last Filed: 11/13/19 17:22> General Exam Limitations: no limitations <Tito Barros - Last Filed: 11/13/19 17:22> - General Exam Comments Initial Comments: Constitutional: NAD, AOX3, Pt has pleasant affect. HEENT: NC/AT, trachea midline, neck supple, no lymphadenopathy. Posterior pharynx non erythematous, without exudates. External ears appear normal, without discharge. Mucous membranes moist. Eyes PERRLA, EOM intact. There is no scleral icterus. No pallor noted. Cardiopulmonary: RRR, no murmurs, rubs or gallops, no JVD noted. Lungs CTAB in anterior and posterior loera. No peripheral edema. Abdominal exam: Abdomen soft and non-distended. Abdomen non-tender to palpation in all 4 quadrants. Bowel sounds active in LLQ. No hepatosplenomegaly. No ecchymosis Neuro: CN II-XII grossly intact. No nuchal rigidity. No raccon eyes, no villar sign, no hemotympanum. No cervical spinal tenderness. MSK: Multiple stage III gluteal ulcers are noted. No purulent drainage is noted. No posterior calf tenderness bilaterally, homans sign negative bilaterally. Posterior tibialis and radial pulse +2 bilaterally. Sensation intact in upper and lower extremities. Full active ROM in upper and lower extremities, 5/5 stregnth. (Tito Barros) Course Vital Signs 11/13/19 11/13/19 11/13/19 13:58 15:02 17:42 Temperature 100.0 F H 98.9 F Pulse Rate 99 107 H 86 Respiratory 19 15 18 Rate Blood Pressure 96/75 109/57 97/59 O2 Sat by Pulse 100 98 98 Oximetry Procedures - Valentine Protocol (Time Out) Nurse: Pavithra Chung <Tito Barros - Last Filed: 11/13/19 17:22> Medical Decision Making - Lab Data Result diagrams: 11/13/19 14:56 11/13/19 14:56 - EKG Data -: EKG Interpreted by Me (and Dr. Montelongo ) <Tito Barros - Last Filed: 11/13/19 17:22> - Lab Data Result diagrams: 11/13/19 14:56 11/13/19 14:56 <Tristin Montelongo - Last Filed: 11/13/19 18:00> - Medical Decision Making 64-year-old male patient with extensive past smoking history presents to ED for evaluation of chronic sacral wound. Patient is discharged yesterday from this facility for GI bleed, acute blood loss anemia, gluteal ulcers. Patient was seen by the physician in the last few recommended coming back to emergency department as he states that the wounds are worse than before. On evaluation patient does report that he does have pain in his gluteal region however denies any chest pain shortness breath, denies any fevers. Patient vital signs the temperature 100.0F. Patient was diaphoretic. Physical exam is limited mu ltiple gluteal ulcers. O2 investigations reveal white blood cell count of 11.0, hemoglobin of 6.9, troponin of 0.123. EKG displayed with ablation rapid ventricular response. Patient was administered fluids, and antipyretic. Heart rate is in the 90s at this time. Patient was previously on eliquis over that has been held due to his recent GI bleed. Patient does not have any chest pain right now. Chest x-ray displayed right lower lobe consolidation correlate for pneumonia. Patient shade and cefepime, Protonix, vancomycin. Will be admitted for further evaluation, trending of cardiac enzymes. Case discussed in depth with Dr. Montelongo. (Tito Barros) 64-year-old male presenting for evaluation of sacral wound, sent from a senior care. Patient is found to be febrile, hemoglobin is 6.9, he has a mild troponin elevation which is down trending from previous. Patient resting comfortably on exam stable blood pressure. I discussed case with Dr. Alston, he will admit with general surgery on consult. (Tristin Montelongo) - Lab Data Lab Results 11/13/19 11/13/19 11/13/19 Range/Units 14:16 14:56 14:56 WBC 11.0 H (3.8-10.6) k/uL RBC 2.66 L (4.30-5.90) m/uL Hgb 6.9 L* (13.0-17.5) gm/dL Hct 22.6 L (39.0-53.0) % MCV 85.2 (80.0-100.0) fL MCH 25.8 (25.0-35.0) pg MCHC 30.4 L (31.0-37.0) g/dL RDW 17.5 H (11.5-15.5) % Plt Count 310 (150-450) k/uL Neutrophils % 81 % Lymphocytes % 10 % Monocytes % 6 % Eosinophils % 2 % Basophils % 0 % Neutrophils # 8.9 H (1.3-7.7) k/uL Lymphocytes # 1.1 (1.0-4.8) k/uL Monocytes # 0.7 (0-1.0) k/uL Eosinophils # 0.2 (0-0.7) k/uL Basophils # 0.0 (0-0.2) k/uL Hypochromasia Marked Poikilocytosis Slight Anisocytosis Slight PT 12.2 H (9.0-12.0) sec INR 1.2 H (<1.2) APTT 27.4 (22.0-30.0) sec Sodium (137-145) mmol/L Potassium (3.5-5.1) mmol/L Chloride (98-107) mmol/L Carbon Dioxide (22-30) mmol/L Anion Gap mmol/L BUN (9-20) mg/dL Creatinine (0.66-1.25) mg/dL Est GFR (CKD-EPI)AfAm (>60 ml/min/1.73 sqM) Est GFR (CKD-EPI)NonAf (>60 ml/min/1.73 sqM) Glucose (74-99) mg/dL Plasma Lactic Acid Jorge (0.7-2.0) mmol/L Calcium (8.4-10.2) mg/dL Total Bilirubin (0.2-1.3) mg/dL AST (17-59) U/L ALT (4-49) U/L Alkaline Phosphatase (38-126) U/L Troponin I 0.123 H* (0.000-0.034) ng/mL Total Protein (6.3-8.2) g/dL Albumin (3.5-5.0) g/dL 11/13/19 11/13/19 Range/Units 14:56 14:56 WBC (3.8-10.6) k/uL RBC (4.30-5.90) m/uL Hgb (13.0-17.5) gm/dL Hct (39.0-53.0) % MCV (80.0-100.0) fL MCH (25.0-35.0) pg MCHC (31.0-37.0) g/dL RDW (11.5-15.5) % Plt Count (150-450) k/uL Neutrophils % % Lymphocytes % % Monocytes % % Eosinophils % % Basophils % % Neutrophils # (1.3-7.7) k/uL Lymphocytes # (1.0-4.8) k/uL Monocytes # (0-1.0) k/uL Eosinophils # (0-0.7) k/uL Basophils # (0-0.2) k/uL Hypochromasia Poikilocytosis Anisocytosis PT (9.0-12.0) sec INR (<1.2) APTT (22.0-30.0) sec Sodium 137 (137-145) mmol/L Potassium 3.9 (3.5-5.1) mmol/L Chloride 113 H (98-107) mmol/L Carbon Dioxide 20 L (22-30) mmol/L Anion Gap 4 mmol/L BUN 17 (9-20) mg/dL Creatinine 1.00 (0.66-1.25) mg/dL Est GFR (CKD-EPI)AfAm >90 (>60 ml/min/1.73 sqM) Est GFR (CKD-EPI)NonAf 80 (>60 ml/min/1.73 sqM) Glucose 112 H (74-99) mg/dL Plasma Lactic Acid Jorge 1.9 (0.7-2.0) mmol/L Calcium 7.7 L (8.4-10.2) mg/dL Total Bilirubin 0.6 (0.2-1.3) mg/dL AST 55 (17-59) U/L ALT 22 (4-49) U/L Alkaline Phosphatase 96 (38-126) U/L Troponin I (0.000-0.034) ng/mL Total Protein 5.1 L (6.3-8.2) g/dL Albumin 2.0 L (3.5-5.0) g/dL - EKG Data EKG Comments: Ventricular rate 112, QRS 82, QT/QTC 346 is 472. Atrial fibrillation with rapid ventricular response. (Tito Barros) Disposition Is patient prescribed a controlled substance at d/c from ED?: No <Tito Barros - Last Filed: 11/13/19 17:22> <Tristin Montelongo - Last Filed: 11/13/19 18:00> Clinical Impression: Pressure ulcer, Pneumonia, Atrial fibrillation, Anemia Disposition: ADMITTED IP TO THIS HOSP Condition: Stable Referrals: Ignacio Gutierrez DO [Primary Care Provider] - 1-2 days
[2019-11-13 17:58] LABS: Appearance,Urine Cloudy (Clear); Bacteria,Urine Rare /hpf; Bilirubin,Urine Negative (Negative); Blood,Urine Moderate (Negative); Color,Urine Yellow; Glucose,Urine (UA) Negative (Negative); Hyaline Casts,Urine 7 /lpf (0-2); Ketones,Urine Negative (Negative); Leukocyte Esterase,Urine Large (Negative); Mucus,Urine Occasional /hpf; Nitrite,Urine Negative (Negative); Protein,Urine 1+ (Negative); RBC,Urine 42 /hpf (0-5); Specific Gravity,Urine 1.018 (1.001-1.035); Squamous Epithelial Cell,Urine <1 /hpf (0-4); Urobilinogen,Urine <2.0 mg/dL (<2.0); WBC,Urine >182 /hpf (0-5)
[2019-11-13] MEDS: SODIUM CHLORIDE 0.9% 1,000 ML IV SCH (18:47)
[2019-11-13] MEDS ORDERED: CHOLESTYRAMINE (WITH SUGAR) 4 GM PACKET PO PRN (20:45)
[2019-11-13] MEDS ORDERED: NITROGLYCERIN SL TABS 0.4 MG TAB SUBLINGUAL PRN (20:45)
[2019-11-13] MEDS ORDERED: HYDROcodone/APAP 10-325MG 1 EACH TAB PO PRN (20:45)
[2019-11-13] MEDS ORDERED: NA PHOS,M-B/NA PHOS,DI-BA 133 ML ENEMA RECTAL PRN (20:45)
[2019-11-13] MEDS ORDERED: BISACODYL 10 MG SUPP RECTAL PRN (20:45)
[2019-11-13] MEDS ORDERED: IPRATROPIUM-ALBUTEROL 3 ML NEB INHALATION PRN (20:45)
[2019-11-13] MEDS ORDERED: MAGNESIUM HYDROXIDE 2,400 MG/10 ML CUP PO PRN (20:45)
[2019-11-13 20:51] LABS: Glucose,Whole Blood 125 mg/dL (75-99)
--- NOTE | 2019-11-13 20:58 | P.HPIM ---
History of Present Illness H&P Date: 11/13/19 Chief Complaint: Decub ulcers History of presenting complaint: This is a pleasant [address] 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 Patient was just in the hospital from November 05 through November 11. With GI bleed. EGD was unremarkable. Patient did do bowel preparation for colonoscopy. Aspirin Plavix was resumed. Eliquis was held. Patient seen by the wound care nurse Nicole on the last admission. Outpatient follow-up recommended. Today-patient was seen by Dr. Zeng. He felt that the sacral decub also needs to be debrided. As the patient being sent down. Patient has occasional cough which is chronic. No shortness of breath. No fever or chills. Appetite is good. Review of systems: GEN.: [None] EYES: [None] HEENT: [None] NECK: [None] RESPIRATORY: [Occasional cough, chronic] CARDIOVASCULAR: [None] GASTROINTESTINAL: [None] GENITOURINARY: [None] MUSCULOSKELETAL: [Multiple decub ulcers] LYMPHATICS: [None] HEMATOLOGICAL: [None] PSYCHIATRY: [A bit forgetful] DERMATOLOGICAL: Multiple decub ulcers NEUROLOGICAL: [None] Past medical history to include: Multiple decub ulcers, atrial fibrillation, coronary artery disease with stent to the RCA and LAD, diabetes, hypothyroid, chronic kidney disease, hypertension, BPH, peripheral artery disease, (amputation, anxiety depression Social history: At [facility]. Does use a cane. Has been smoking up to recently since 1977. A pack a day. Used to drink heavily in the past. On examination: VITAL SIGNS: 100, 99, 19, 96/75, 100% on room air GENERAL APPEARANCE: BMI 19.5, laying in bed awake HEENT: Normal external appearance of nose and ear. Oral cavity normal EYES: Pupils equal. Conjunctiva pale NECK: JVD not raised. Mass not palpable. RESPIRATORY: Respiratory effort normal. Decreased breath sounds CARDIOVASCULAR: First and second sounds normal. No edema. ABDOMEN: Soft. Liver and spleen not palpable. No tenderness. No mass palpable. Has a Beaulieu catheter. DERMATOLOGICAL: Multiple decubitus ulcers see nursing note PSYCHIATRY: Awake, answering simple questions EXTREMITY:. Left above-knee amputation. INVESTIGATIONS, reviewed in the clinical context: White count 11 hemoglobin 6.9 platelets 310 progression 3.9 creatinine 1 troponin I 0.123 Coronavirus PCR not detected Phones at type A type B both negative UA positive for leukoesterase WBC. Assessment: -Acute UTI from cystitis secondary to Beaulieu catheter -Left gluteus unstageable ulcer, right gluteus also stage II right lower extremity second digit ulcer -Recent hospital admission for Acute GI bleed-EGD unremarkable, patient refused colonoscopy preparation -nonsustained V. tach -Persistent atrial fibrillation on Eliquis at home, currently held -coronary artery disease status post stent placement in RCA and LAD was on Plavix -Diabetes mellitus -Hypothyroid -Chronic kidney disease stage II secondary to diabetes mellitus -Essential Hypertension -coronary artery disease -Benign prostatic hypertrophy -Peripheral artery disease -Left above-knee amputation - anxiety and depression, Plan: Patient also may need debridement. Surgery is consulted for the same. Patient is put on IV cefepime and vancomycin the ER. Home medications resumed. Unit of blood was ordered. Also consult ID. Care was discussed with the patient. Past Medical History Past Medical History: Atrial Fibrillation, Coronary Artery Disease (CAD), COPD, Diabetes Mellitus, GERD/Reflux, Hyperlipidemia, Hypertension, Myocardial Infarction (OR), Thyroid Disorder, Vascular Disorder Additional Past Medical History / Comment(s): Other Hx: Chronic kidney disease stage III, hypothyroid, PAD, diverticular dx, past ETOH abuse. Anxiety/Depression Last Myocardial Infarction Date:: 09/2011 History of Any Multi-Drug Resistant Organisms: C-DIFF Date of last positivie culture/infection: 10/10/2019 MDRO Source:: Sep 2019 Past Surgical History: Cardiac Valve Replacement, Heart Catheterization With Stent Additional Past Surgical History / Comment(s): Mitral Valve replacement, Left above the knee amputation, Femoral-Popliteal Bypass. Endarterectomy Past Anesthesia/Blood Transfusion Reactions: No Reported Reaction Date of Last Stent Placement:: 10/2019 Past Psychological History: Anxiety, Depression Smoking Status: Former smoker Past Alcohol Use History: Occasional Past Drug Use History: Marijuana - Past Family History Mother Family Medical History: Diabetes Mellitus, Deep Vein Thrombosis (DVT) Medications and Allergies Home Medications Medication Instructions Recorded Confirmed Type FLUoxetine HCL [PROzac] 20 mg PO DAILY@0800 03/26/15 11/13/19 History Levothyroxine Sodium [Synthroid] 25 mcg PO DAILY 03/26/15 11/13/19 History Acetaminophen Tab [Tylenol] 650 mg PO Q6HR PRN tab 10/04/17 11/13/19 Rx Allopurinol [Zyloprim] 100 mg PO DAILY@0800 10/10/19 11/13/19 History Clopidogrel [Plavix] 75 mg PO DAILY@0800 10/10/19 11/13/19 History Lisinopril [Zestril] 2.5 mg PO DAILY@0800 10/10/19 11/13/19 History Metoprolol Tartrate [Lopressor] 50 mg PO BID@0800,1700 10/10/19 11/13/19 History Atorvastatin [Lipitor] 40 mg PO DAILY tab 10/21/19 11/13/19 Rx Ipratropium-Albuterol Nebulize 3 ml INHALATION RT-QID PRN #0 10/21/19 11/13/19 Rx [Duoneb 0.5 mg-3 mg/3 ml Soln] ampul.neb Nitroglycerin Sl Tabs [Nitrostat] 0.4 mg SUBLINGUAL Q5M PRN tab 10/21/19 11/13/19 Rx HYDROcodone/APAP 10-325MG [[place] 1 tab PO QID PRN #10 tab 11/12/19 11/13/19 Rx 10-325] Aspirin 81 mg PO DAILY@0800 11/13/19 11/13/19 History Bisacodyl [Dulcolax] 10 mg RECTAL DAILY PRN 11/13/19 11/13/19 History Cholestyramine (with Sugar) 4 gm PO PC-TID PRN 11/13/19 11/13/19 History [Questran Packet] Ferrous Sulfate [Iron (65 MG 325 mg PO AC-TID 11/13/19 11/13/19 History Elemental)] Furosemide [Lasix] 40 mg PO DAILY@0800 11/13/19 11/13/19 History Magnesium Hydroxide [Milk of 72,000 mg PO Q48H PRN 11/13/19 11/13/19 History Magnesia Concentrate] Magnesium Oxide [Mag-Ox] 400 mg PO BID@0800,1700 11/13/19 11/13/19 History Na Phos,M-B/Na Phos,Di-Ba [Fleet 133 ml RECTAL DAILY PRN 11/13/19 11/13/19 History Adult] Omeprazole [PriLOSEC] 20 mg PO DAILY 11/13/19 11/13/19 History QUEtiapine [SEROquel] 25 mg PO HS@2100 11/13/19 11/13/19 History Tamsulosin [Flomax] 0.4 mg PO PC-BRKFST@0800 11/13/19 11/13/19 History Allergies Allergy/AdvReac Type Severity Reaction Status Date / Time No Known Allergies Allergy Verified 11/13/19 15:30 Physical Exam Vitals: Vital Signs Temp Pulse Resp BP Pulse Ox 11/13/19 18:48 98.7 F 75 18 93/54 99 11/13/19 17:42 98.9 F 86 18 97/59 98 11/13/19 15:02 107 H 15 109/57 98 11/13/19 13:58 100.0 F H 99 19 96/75 100 Intake and Output 11/13/19 11/13/19 11/13/19 06:59 14:59 22:59 Other: Weight 49.895 kg 63.503 kg Results CBC & Chem 7: 11/13/19 14:56 11/13/19 14:56 Labs: Abnormal Lab Results - Last 24 Hours (Table) 11/13/19 11/13/19 11/13/19 Range/Units 14:16 14:56 14:56 WBC 11.0 H (3.8-10.6) k/uL RBC 2.66 L (4.30-5.90) m/uL Hgb 6.9 L* (13.0-17.5) gm/dL Hct 22.6 L (39.0-53.0) % MCHC 30.4 L (31.0-37.0) g/dL RDW 17.5 H (11.5-15.5) % Neutrophils # 8.9 H (1.3-7.7) k/uL PT 12.2 H (9.0-12.0) sec INR 1.2 H (<1.2) Chloride (98-107) mmol/L Carbon Dioxide (22-30) mmol/L Glucose (74-99) mg/dL Calcium (8.4-10.2) mg/dL Troponin I 0.123 H* (0.000-0.034) ng/mL Total Protein (6.3-8.2) g/dL Albumin (3.5-5.0) g/dL Urine Protein (Negative) Urine Blood (Negative) Ur Leukocyte Esterase (Negative) Urine RBC (0-5) /hpf Urine WBC (0-5) /hpf Urine WBC Clumps (None) /hpf Urine Bacteria (None) /hpf Hyaline Casts (0-2) /lpf Urine Mucus (None) /hpf Crossmatch 11/13/19 11/13/19 11/13/19 Range/Units 14:56 16:48 17:38 WBC (3.8-10.6) k/uL RBC (4.30-5.90) m/uL Hgb (13.0-17.5) gm/dL Hct (39.0-53.0) % MCHC (31.0-37.0) g/dL RDW (11.5-15.5) % Neutrophils # (1.3-7.7) k/uL PT (9.0-12.0) sec INR (<1.2) Chloride 113 H (98-107) mmol/L Carbon Dioxide 20 L (22-30) mmol/L Glucose 112 H (74-99) mg/dL Calcium 7.7 L (8.4-10.2) mg/dL Troponin I (0.000-0.034) ng/mL Total Protein 5.1 L (6.3-8.2) g/dL Albumin 2.0 L (3.5-5.0) g/dL Urine Protein 1+ H (Negative) Urine Blood Moderate H (Negative) Ur Leukocyte Esterase Large H (Negative) Urine RBC 42 H (0-5) /hpf Urine WBC >182 H (0-5) /hpf Urine WBC Clumps Many H (None) /hpf Urine Bacteria Rare H (None) /hpf Hyaline Casts 7 H (0-2) /lpf Urine Mucus Occasional H (None) /hpf Crossmatch See Detail
[2019-11-13] MEDS: QUEtiapine 25 MG TAB PO SCH (22:20)
[2019-11-13] MEDS: METOPROLOL TARTRATE 50 MG TAB PO SCH (22:20)
[2019-11-14] MEDS: CEFEPIME 2 GM in SODIUM CHLORIDE 0.9% 100 ML IVPB SCH ×3 (01:33→21:58)
[2019-11-14] MEDS: SODIUM CHLORIDE 0.9% 1,000 ML IV SCH ×3 (01:35→19:39)
[2019-11-14] MEDS ORDERED: VANCOMYCIN 1,250 MG in SODIUM CHLORIDE 0.9% 250 ML IVPB SCH (06:00)
[2019-11-14] MEDS: FERROUS SULFATE 325 MG TAB PO SCH ×3 (06:30→17:46)
[2019-11-14] MEDS: LEVOTHYROXINE 25 MCG TAB PO SCH (06:30)
[2019-11-14] MEDS ORDERED: NON FORMULARY DRUG (Omeprazole 20 MG) PO SCH (09:00)
[2019-11-14] MEDS ORDERED: PANTOPRAZOLE 40 MG/10 ML VIAL IV SCH (09:00)
[2019-11-14 09:25] LABS: Anisocytosis Slight; Basophils % (A) 0 %; Eosinophils # (A) 0.1 k/uL (0-0.7); Eosinophils % (A) 1 %; HCT 25.7 % (39.0-53.0); HGB 7.6 gm/dL (13.0-17.5); Hypochromasia Marked; Lymphocytes # (A) 1.6 k/uL (1.0-4.8); Lymphocytes % (A) 23 %; MCH 25.5 pg (25.0-35.0); MCHC 29.7 g/dL (31.0-37.0); MCV 85.9 fL (80.0-100.0); Mean Platelet Volume 8.6; Monocytes # (A) 0.2 k/uL (0-1.0); Monocytes % (A) 4 %; Neutrophils # (A) 4.8 k/uL (1.3-7.7); Neutrophils % (A) 70 %; Platelet Count 320 k/uL (150-450); Poikilocytosis Moderate; RBC 2.99 m/uL (4.30-5.90); RDW 17.3 % (11.5-15.5)
[2019-11-14] MEDS: FUROSEMIDE 40 MG TAB PO SCH (09:36)
[2019-11-14] MEDS: LISINOPRIL 2.5 MG TAB PO SCH (09:36)
[2019-11-14] MEDS: TAMSULOSIN 0.4 MG CAP.ER.24H PO SCH (09:36)
[2019-11-14] MEDS: FLUoxetine HCL 20 MG CAP PO SCH (09:36)
[2019-11-14] MEDS: MAGNESIUM OXIDE 400 MG TAB PO SCH ×2 (09:36→17:34)
[2019-11-14] MEDS: ALLOPURINOL 100 MG TAB PO SCH (09:37)
[2019-11-14] MEDS: ASPIRIN 81 MG PO SCH (09:37)
[2019-11-14] MEDS: CLOPIDOGREL 75 MG TAB PO SCH (09:37)
[2019-11-14] MEDS: METOPROLOL TARTRATE 50 MG TAB PO SCH ×2 (09:37→17:34)
[2019-11-14 09:40] LABS: Albumin 1.9 g/dL (3.5-5.0); Calcium 7.6 mg/dL (8.4-10.2); Potassium 3.9 mmol/L (3.5-5.1); Total Bilirubin 1.5 mg/dL (0.2-1.3); Total Protein 5.1 g/dL (6.3-8.2)
[2019-11-14] MEDS: ATORVASTATIN 40 MG TAB PO SCH (12:27)
--- NOTE | 2019-11-14 12:49 | P.GSCN ---
History of Present Illness History of present illness: HISTORY OF PRESENTING ILLNESS 64-year-old -[place] male presented to the hospital for evaluation of chronic sacral wound. He is complaining of discomfort to the sacral area at times. Follows in the wound care center here. Last visit 11/06/2019. Dressing in place per nursing staff. REVIEW OF SYSTEMS At the time of my exam: CONSTITUTIONAL: Denies fever or chills. CARDIOVASCULAR: Denies chest pain, shortness of breath, orthopnea, PND or palpitations. RESPIRATORY: Denies cough. GASTROINTESTINAL: Denies abdominal pain, diarrhea, constipation, nausea or vomiting. MUSCULOSKELETAL: Denies myalgias. NEUROLOGIC: Denies numbness, tingling or weakness. ENDOCRINE: Denies fatigue, weight change, polydipsia or polyurina. GENITOURINARY: Denies burning, hematuria or urgency with micturation. HEMATOLOGIC: Denies history of anemia or bleeding. PAST SURGICAL HISTORY See list PAST MEDICAL HISTORY See list MEDICATIONS See list PHYSICAL EXAMINATION Blood pressure 114/70 heart rate 99 afebrile and maintaining oxygen saturation on room air. CONSTITUTIONAL: No apparent distress. NEUROLOGIC EXAMINATION: Patient is awake, alert and oriented x3. WOUND: Left gluteal: Boggy skin with erythema noted around large coccyx wound that is unstagable. Stool noted under the dressing when removed. Right gluteal: Stage II with minimal subcutaneous tissue. ASSESSMENT Decuitus ulcer PLAN Recommend bedside wound care as recommended by wound care team. No plans for surgical debridement at this time. Continue to minimize laying on his coccyx region and turn regularly. Thank you kindly for this consultation. The above impression and plan of care have been discussed and directed by the signing physician. Collette Narayan, nurse practitioner, acting as scribe for signing physician. Past Medical History Past Medical History: Atrial Fibrillation, Coronary Artery Disease (CAD), COPD, Diabetes Mellitus, GERD/Reflux, Hyperlipidemia, Hypertension, Myocardial Infarction ([place]), Thyroid Disorder, Vascular Disorder Additional Past Medical History / Comment(s): Other Hx: Chronic kidney disease stage III, hypothyroid, PAD, diverticular dx, past ETOH abuse. Anxiety/Depression Last Myocardial Infarction Date:: 09/2011 History of Any Multi-Drug Resistant Organisms: C-DIFF Year Discovered:: 10/10/2019 MDRO Source:: Sep 2019 Past Surgical History: Cardiac Valve Replacement, Heart Catheterization With Stent Additional Past Surgical History / Comment(s): Mitral Valve replacement, Left above the knee amputation, Femoral-Popliteal Bypass. Endarterectomy Past Anesthesia/Blood Transfusion Reactions: No Reported Reaction Date of Last Stent Placement:: 10/2019 Past Psychological History: Anxiety, Depression Additional Psychological History / Comment(s): pt was sent to [facility] on 11/11 Smoking Status: Former smoker Past Alcohol Use History: Occasional Additional Past Alcohol Use History / Comment(s): Pt started smoking in 1977 - Past Family History Mother Family Medical History: Diabetes Mellitus, Deep Vein Thrombosis (DVT) Medications and Allergies Home Medications Medication Instructions Recorded Confirmed Type FLUoxetine HCL [PROzac] 20 mg PO DAILY@0800 03/26/15 11/13/19 History Levothyroxine Sodium [Synthroid] 25 mcg PO DAILY 03/26/15 11/13/19 History Acetaminophen Tab [Tylenol] 650 mg PO Q6HR PRN tab 10/04/17 11/13/19 Rx Allopurinol [Zyloprim] 100 mg PO DAILY@0800 10/10/19 11/13/19 History Clopidogrel [Plavix] 75 mg PO DAILY@0800 10/10/19 11/13/19 History Lisinopril [Zestril] 2.5 mg PO DAILY@0800 10/10/19 11/13/19 History Metoprolol Tartrate [Lopressor] 50 mg PO BID@0800,1700 10/10/19 11/13/19 History Atorvastatin [Lipitor] 40 mg PO DAILY tab 10/21/19 11/13/19 Rx Ipratropium-Albuterol Nebulize 3 ml INHALATION RT-QID PRN #0 10/21/19 11/13/19 Rx [Duoneb 0.5 mg-3 mg/3 ml Soln] ampul.neb Nitroglycerin Sl Tabs [Nitrostat] 0.4 mg SUBLINGUAL Q5M PRN tab 10/21/19 11/13/19 Rx HYDROcodone/APAP 10-325MG [[place] 1 tab PO QID PRN #10 tab 11/12/19 11/13/19 Rx 10-325] Aspirin 81 mg PO DAILY@0800 11/13/19 11/13/19 History Bisacodyl [Dulcolax] 10 mg RECTAL DAILY PRN 11/13/19 11/13/19 History Cholestyramine (with Sugar) 4 gm PO PC-TID PRN 11/13/19 11/13/19 History [Questran Packet] Ferrous Sulfate [Iron (65 MG 325 mg PO AC-TID 11/13/19 11/13/19 History Elemental)] Furosemide [Lasix] 40 mg PO DAILY@0800 11/13/19 11/13/19 History Magnesium Hydroxide [Milk of 72,000 mg PO Q48H PRN 11/13/19 11/13/19 History Magnesia Concentrate] Magnesium Oxide [Mag-Ox] 400 mg PO BID@0800,1700 11/13/19 11/13/19 History Na Phos,M-B/Na Phos,Di-Ba [Fleet 133 ml RECTAL DAILY PRN 11/13/19 11/13/19 History Adult] Omeprazole [PriLOSEC] 20 mg PO DAILY 11/13/19 11/13/19 History QUEtiapine [SEROquel] 25 mg PO HS@2100 11/13/19 11/13/19 History Tamsulosin [Flomax] 0.4 mg PO PC-BRKFST@0800 11/13/19 11/13/19 History Allergies Allergy/AdvReac Type Severity Reaction Status Date / Time No Known Allergies Allergy Verified 11/13/19 15:30 Surgical - Exam Vital Signs Temp Pulse Resp BP Pulse Ox 100.0 F H 99 19 96/75 100 11/13/19 13:58 11/13/19 13:58 11/13/19 13:58 11/13/19 13:58 11/13/19 13:58 Results - Labs 11/14/19 08:47 11/14/19 08:47 Abnormal Lab Results - Last 24 Hours (Table) 11/13/19 11/13/19 11/13/19 Range/Units 14:16 14:56 14:56 WBC 11.0 H (3.8-10.6) k/uL RBC 2.66 L (4.30-5.90) m/uL Hgb 6.9 L* (13.0-17.5) gm/dL Hct 22.6 L (39.0-53.0) % MCHC 30.4 L (31.0-37.0) g/dL RDW 17.5 H (11.5-15.5) % Neutrophils # 8.9 H (1.3-7.7) k/uL PT 12.2 H (9.0-12.0) sec INR 1.2 H (<1.2) Chloride (98-107) mmol/L Carbon Dioxide (22-30) mmol/L Glucose (74-99) mg/dL POC Glucose (mg/dL) (75-99) mg/dL Calcium (8.4-10.2) mg/dL Total Bilirubin (0.2-1.3) mg/dL AST (17-59) U/L Troponin I 0.123 H* (0.000-0.034) ng/mL Total Protein (6.3-8.2) g/dL Albumin (3.5-5.0) g/dL Urine Protein (Negative) Urine Blood (Negative) Ur Leukocyte Esterase (Negative) Urine RBC (0-5) /hpf Urine WBC (0-5) /hpf Urine WBC Clumps (None) /hpf Urine Bacteria (None) /hpf Hyaline Casts (0-2) /lpf Urine Mucus (None) /hpf Crossmatch 11/13/19 11/13/19 11/13/19 Range/Units 14:56 16:48 17:38 WBC (3.8-10.6) k/uL RBC (4.30-5.90) m/uL Hgb (13.0-17.5) gm/dL Hct (39.0-53.0) % MCHC (31.0-37.0) g/dL RDW (11.5-15.5) % Neutrophils # (1.3-7.7) k/uL PT (9.0-12.0) sec INR (<1.2) Chloride 113 H (98-107) mmol/L Carbon Dioxide 20 L (22-30) mmol/L Glucose 112 H (74-99) mg/dL POC Glucose (mg/dL) (75-99) mg/dL Calcium 7.7 L (8.4-10.2) mg/dL Total Bilirubin (0.2-1.3) mg/dL AST (17-59) U/L Troponin I (0.000-0.034) ng/mL Total Protein 5.1 L (6.3-8.2) g/dL Albumin 2.0 L (3.5-5.0) g/dL Urine Protein 1+ H (Negative) Urine Blood Moderate H (Negative) Ur Leukocyte Esterase Large H (Negative) Urine RBC 42 H (0-5) /hpf Urine WBC >182 H (0-5) /hpf Urine WBC Clumps Many H (None) /hpf Urine Bacteria Rare H (None) /hpf Hyaline Casts 7 H (0-2) /lpf Urine Mucus Occasional H (None) /hpf Crossmatch See Detail 11/13/19 11/13/19 11/14/19 Range/Units 20:48 21:15 03:12 WBC (3.8-10.6) k/uL RBC (4.30-5.90) m/uL Hgb (13.0-17.5) gm/dL Hct (39.0-53.0) % MCHC (31.0-37.0) g/dL RDW (11.5-15.5) % Neutrophils # (1.3-7.7) k/uL PT (9.0-12.0) sec INR (<1.2) Chloride (98-107) mmol/L Carbon Dioxide (22-30) mmol/L Glucose (74-99) mg/dL POC Glucose (mg/dL) 125 H (75-99) mg/dL Calcium (8.4-10.2) mg/dL Total Bilirubin (0.2-1.3) mg/dL AST (17-59) U/L Troponin I 0.294 H* 0.321 H* (0.000-0.034) ng/mL Total Protein (6.3-8.2) g/dL Albumin (3.5-5.0) g/dL Urine Protein (Negative) Urine Blood (Negative) Ur Leukocyte Esterase (Negative) Urine RBC (0-5) /hpf Urine WBC (0-5) /hpf Urine WBC Clumps (None) /hpf Urine Bacteria (None) /hpf Hyaline Casts (0-2) /lpf Urine Mucus (None) /hpf Crossmatch 11/14/19 11/14/19 Range/Units 08:47 08:47 WBC (3.8-10.6) k/uL RBC 2.99 L (4.30-5.90) m/uL Hgb 7.6 L (13.0-17.5) gm/dL Hct 25.7 L (39.0-53.0) % MCHC 29.7 L (31.0-37.0) g/dL RDW 17.3 H (11.5-15.5) % Neutrophils # (1.3-7.7) k/uL PT (9.0-12.0) sec INR (<1.2) Chloride 116 H (98-107) mmol/L Carbon Dioxide 17 L (22-30) mmol/L Glucose (74-99) mg/dL POC Glucose (mg/dL) (75-99) mg/dL Calcium 7.6 L (8.4-10.2) mg/dL Total Bilirubin 1.5 H (0.2-1.3) mg/dL AST 68 H (17-59) U/L Troponin I (0.000-0.034) ng/mL Total Protein 5.1 L (6.3-8.2) g/dL Albumin 1.9 L (3.5-5.0) g/dL Urine Protein (Negative) Urine Blood (Negative) Ur Leukocyte Esterase (Negative) Urine RBC (0-5) /hpf Urine WBC (0-5) /hpf Urine WBC Clumps (None) /hpf Urine Bacteria (None) /hpf Hyaline Casts (0-2) /lpf Urine Mucus (None) /hpf Crossmatch Microbiology - Last 24 Hours (Table) 11/13/19 17:38 Urine Culture - Preliminary Urine,Voided Diabetes panel 11/13/19 11/14/19 Range/Units 14:56 08:47 Sodium 137 141 (137-145) mmol/L Potassium 3.9 3.9 (3.5-5.1) mmol/L Chloride 113 H 116 H (98-107) mmol/L Carbon Dioxide 20 L 17 L (22-30) mmol/L BUN 17 19 (9-20) mg/dL Creatinine 1.00 1.04 (0.66-1.25) mg/dL Glucose 112 H 87 (74-99) mg/dL Calcium 7.7 L 7.6 L (8.4-10.2) mg/dL AST 55 68 H (17-59) U/L ALT 22 23 (4-49) U/L Alkaline Phosphatase 96 81 (38-126) U/L Total Protein 5.1 L 5.1 L (6.3-8.2) g/dL Albumin 2.0 L 1.9 L (3.5-5.0) g/dL Calcium panel 11/13/19 11/14/19 Range/Units 14:56 08:47 Calcium 7.7 L 7.6 L (8.4-10.2) mg/dL Albumin 2.0 L 1.9 L (3.5-5.0) g/dL Pituitary panel 11/13/19 11/14/19 Range/Units 14:56 08:47 Sodium 137 141 (137-145) mmol/L Potassium 3.9 3.9 (3.5-5.1) mmol/L Chloride 113 H 116 H (98-107) mmol/L Carbon Dioxide 20 L 17 L (22-30) mmol/L BUN 17 19 (9-20) mg/dL Creatinine 1.00 1.04 (0.66-1.25) mg/dL Glucose 112 H 87 (74-99) mg/dL Calcium 7.7 L 7.6 L (8.4-10.2) mg/dL Adrenal panel 11/13/19 11/14/19 Range/Units 14:56 08:47 Sodium 137 141 (137-145) mmol/L Potassium 3.9 3.9 (3.5-5.1) mmol/L Chloride 113 H 116 H (98-107) mmol/L Carbon Dioxide 20 L 17 L (22-30) mmol/L BUN 17 19 (9-20) mg/dL Creatinine 1.00 1.04 (0.66-1.25) mg/dL Glucose 112 H 87 (74-99) mg/dL Calcium 7.7 L 7.6 L (8.4-10.2) mg/dL Total Bilirubin 0.6 1.5 H (0.2-1.3) mg/dL AST 55 68 H (17-59) U/L ALT 22 23 (4-49) U/L Alkaline Phosphatase 96 81 (38-126) U/L Total Protein 5.1 L 5.1 L (6.3-8.2) g/dL Albumin 2.0 L 1.9 L (3.5-5.0) g/dL
[2019-11-14] MEDS ORDERED: VANCOMYCIN 1,000 MG in SODIUM CHLORIDE 0.9% 250 ML IVPB SCH (18:00)
--- NOTE | 2019-11-14 19:09 | P.PN ---
Progress Note - Text Progress Note Date: 11/14/19 Chief Complaint: Decub ulcers History of presenting complaint: This is a pleasant [address] 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 Patient was just in the hospital from November 05 through November 11. With GI bleed. EGD was unremarkable. Patient did do bowel preparation for colonoscopy. Aspirin Plavix was resumed. Eliquis was held. Patient seen by the wound care nurse Nicole on the last admission. Outpatient follow-up recommended. -patient was seen by Dr. Zeng. He felt that the sacral decub also needs to be debrided. As the patient being sent down. Patient has occasional cough which is chronic. No shortness of breath. No fever or chills. Appetite is good. Today-laying in bed. Comfortable. Seen by Dr. Nation. Evaluating decub ulcer. Review of systems: Was done for constitutional, cardiovascular, GI, pulmonary. relevant finding as above Active Medications Acetaminophen (Tylenol Tab) 650 mg PO Q6HR PRN PRN Reason: Mild Pain or Fever > 100.5 Acetaminophen (Tylenol Tab) 650 mg PO Q6HR PRN PRN Reason: Fever and/ or Pain Hydrocodone Bitart/Acetaminophen ([place] 10) 1 each PO QID PRN PRN Reason: Pain Last Admin: 11/14/19 13:27 Dose: 1 each Documented by: Albuterol/Ipratropium (Duoneb 0.5 Mg-3 Mg/3 Ml Soln) 3 ml INHALATION RT-QID PRN PRN Reason: Shortness Of Breath Or Wheezing Allopurinol (Zyloprim) 100 mg PO DAILY@0800 [facility] Last Admin: 11/14/19 09:37 Dose: 100 mg Documented by: Aspirin (Aspirin) 81 mg PO DAILY@0800 [facility] Last Admin: 11/14/19 09:37 Dose: 81 mg Documented by: Atorvastatin Calcium (Lipitor) 40 mg PO DAILY [facility] Last Admin: 11/14/19 12:27 Dose: 40 mg Documented by: Bisacodyl (Dulcolax) 10 mg RECTAL DAILY PRN PRN Reason: Constipation Cholestyramine Resin (Questran) 4 gm PO PC-TID PRN PRN Reason: Diarrhea Clopidogrel Bisulfate (Plavix) 75 mg PO DAILY@0800 [facility] Last Admin: 11/14/19 09:37 Dose: 75 mg Documented by: Ferrous Sulfate (Feosol) 325 mg PO AC-TID [facility] Last Admin: 11/14/19 17:46 Dose: Not Given Documented by: Fluoxetine HCl (Prozac) 20 mg PO DAILY@0800 [facility] Last Admin: 11/14/19 09:36 Dose: 20 mg Documented by: Furosemide (Lasix) 40 mg PO DAILY@0800 [facility] Last Admin: 11/14/19 09:36 Dose: 40 mg Documented by: Sodium Chloride (Saline 0.9%) 1,000 mls @ 120 mls/hr IV .Q8H20M [facility] Last Admin: 11/14/19 12:28 Dose: 120 mls/hr Documented by: Vancomycin HCl 1,000 mg/ (Sodium Chloride) 250 mls @ 125 mls/hr IVPB Q12H [facility] Last Admin: 11/14/19 17:52 Dose: 125 mls/hr Documented by: Cefepime HCl 2 gm/ Sodium (Chloride) 100 mls @ 200 mls/hr IVPB Q12HR [facility] Levothyroxine Sodium (Synthroid) 25 mcg PO DAILY@0630 [facility] Last Admin: 11/14/19 06:30 Dose: Not Given Documented by: Lisinopril (Zestril) 2.5 mg PO DAILY@0800 [facility] Last Admin: 11/14/19 09:36 Dose: 2.5 mg Documented by: Magnesium Hydroxide (Milk Of Magnesia) 2,400 mg PO Q48H PRN PRN Reason: Constipation Magnesium Oxide (Mag-Ox) 400 mg PO BID@0800,1700 [facility] Last Admin: 11/14/19 17:34 Dose: Not Given Documented by: Metoprolol Tartrate (Lopressor) 50 mg PO BID@0800,1700 [facility] Last Admin: 11/14/19 17:34 Dose: Not Given Documented by: Naloxone HCl (Narcan) 0.2 mg IV Q2M PRN PRN Reason: Opioid Reversal Nitroglycerin (Nitrostat) 0.4 mg SUBLINGUAL Q5M PRN PRN Reason: Chest Pain Pantoprazole Sodium (Protonix) 40 mg IV DAILY [facility] Last Admin: 11/14/19 09:44 Dose: 40 mg Documented by: Quetiapine Fumarate (Seroquel) 25 mg PO HS@2100 [facility] Last Admin: 11/13/19 22:20 Dose: 25 mg Documented by: Sodium Biphosphate/Sodium Phosphate (Fleet Adult) 133 ml RECTAL DAILY PRN PRN Reason: Constipation Tamsulosin HCl (Flomax) 0.4 mg PO PC-BRKFST@0800 [facility] Last Admin: 11/14/19 09:36 Dose: 0.4 mg Documented by: On examination: VITAL SIGNS: 97.1, 65, 16, 9254, 94% on 3 L GENERAL APPEARANCE: Laying in bed, comfortable, awake HEENT: Normal external appearance of nose and ear. Oral cavity normal EYES: Pupils equal. Conjunctiva pale NECK: JVD not raised. Mass not palpable. RESPIRATORY: Respiratory effort normal. Decreased breath sounds CARDIOVASCULAR: First and second sounds normal. No edema. ABDOMEN: Soft. Liver and spleen not palpable. No tenderness. No mass palpable. Has a Beaulieu catheter. DERMATOLOGICAL: Multiple decubitus ulcers see nursing note PSYCHIATRY: Awake, answering simple questions EXTREMITY:. Left above-knee amputation. INVESTIGATIONS, reviewed in the clinical context: White count 7 hemoglobin 7.6 progression 3.9 creatinine 1.04 Previous testing White count 11 hemoglobin 6.9 platelets 310 progression 3.9 creatinine 1 troponin I 0.123 Coronavirus PCR not detected Phones at type A type B both negative UA positive for leukoesterase WBC. Assessment: -Acute UTI from cystitis secondary to Beaulieu catheter -Left gluteus unstageable ulcer, right gluteus also stage II lower extremity second digit ulcer -Recent hospital admission for Acute GI bleed-EGD unremarkable, patient refused colonoscopy preparation -nonsustained V. tach -Persistent atrial fibrillation on Eliquis at home, currently held -coronary artery disease status post stent placement in RCA and LAD was on Plavix -Diabetes mellitus -Hypothyroid -Chronic kidney disease stage II secondary to diabetes mellitus -Essential Hypertension -coronary artery disease -Benign prostatic hypertrophy -Peripheral artery disease -Left above-knee amputation - anxiety and depression, -Troponin leak due to hemodynamic mismatch -Severe protein malnutrition-BMI 15.1 Plan: Patient is on IV cefepime and vancomycin. Other medications to continue. Discussed with Dr. Nation. We will evaluate coccygeal decub for debridement. Also follows with ID
[2019-11-14] MEDS: QUEtiapine 25 MG TAB PO SCH (21:59)
[2019-11-14] MEDS: SODIUM BICARBONATE TAB 650 MG TAB PO SCH (21:59)
[2019-11-15] MEDS: VANCOMYCIN ORAL SOLUTION 250 MG/5 ML BOTTLE PO SCH ×4 (03:54→17:18)
[2019-11-15] MEDS: SODIUM CHLORIDE 0.9% 1,000 ML IV SCH ×2 (03:54→08:32)
[2019-11-15 05:16] LABS: Glucose,Whole Blood 97 mg/dL (75-99)
--- NOTE | 2019-11-15 05:43 | CONS ---
CONSULTATION DATE OF SERVICE: 11/14/2019. REASON FOR CONSULTATION: 1. Infected pressure ulcer. 2. Diarrhea. HISTORY OF PRESENT ILLNESS: The patient is a 64-year-old male who was recently admitted to this facility for a GI bleed. The patient did have EGD, which was unremarkable. Colonoscopy was a poor prep, apparently the patient not taking his prep hence colonoscopy was discontinued and the patient was discharged back to senior care. The patient has been sent back to the ER within 24 hours by the senior care physician with concern for worsening of his left gluteal pressure ulcer and some foul-smelling drainage. The patient complaining of pain to the left gluteal area, more of a dull aching to have worse with touching. Intensity could be 7 to 8/10, no radiation. The patient denies having any chest pain. No shortness of breath or cough. No significant abdominal pain. The patient apparently did have significant diarrhea with multiple loose stool according to the nursing staff and they would like to place a fecal management system. The patient on presentation to hospital did have a low-grade fever of 100 degrees Fahrenheit, afebrile since then. Patient did have white count 11,000 with a hemoglobin 6.9 repeat 7.0. UA has been positive as well. COVID-19 was negative as well as influenza PCR and a chest x-ray, right lower lobe consolidation, correlate for pneumonia. REVIEW OF SYSTEMS: Positive points have been mentioned in HPI. Rest of systems were negative. PAST MEDICAL HISTORY: Atrial fibrillation, coronary artery disease, COPD, diabetes mellitus, hypertension, hyperlipidemia, IA, anxiety, depression, diverticular bleed. PAST SURGICAL HISTORY: PTCA with stent, left [id number] amputation. SOCIAL HISTORY: Remote history of smoking. Occasional drinks. No drug use. FAMILY HISTORY: No pertinent findings noticed. ALLERGIES: No known drug allergies. MEDICATIONS: Medications include the patient is currently on Tylenol, [place], Zyloprim, cefepime 2 grams q.12 hours, Plavix, iron sulfate, Prozac, Lasix, Synthroid, Zestril, vancomycin pharmacy to dose. PHYSICAL EXAMINATION: On examination, blood pressure 119/77 with a pulse of 60, temperature 98.1, T-max of 100. He is 100% on 2 L cannula. General description is a middle-aged male lying in bed in no distress. No tachypnea or accessory muscle of respiration use. HEENT: Examination shows pallor, no scleral icterus. Oral mucous membrane is dry. No pharyngeal erythema or thrush. NECK: Trachea central. No thyromegaly. LUNGS: Unlabored breathing, clear to auscultation anteriorly. No wheeze or crackles. HEART: S1, S2. Regular rate and rhythm. ABDOMEN: Soft, mildly distended. No guarding or rigidity. Examination of sacral area did have unstageable pressure ulcer with some foul-smelling drainage. NEUROLOGICAL: Patient is awake, alert, oriented x2. Mood and affect normal. LABS: Hemoglobin 7.6, white count 11,000. BUN of 19, creatinine 1.04. Troponin is mildly elevated. Urine was positive. Chest x-ray with right lower lobe pneumonia. DIAGNOSTIC IMPRESSION AND PLAN: 1. Patient admitted to the hospital with fever which is likely multifactorial in this patient who did have infected left gluteal pressure ulcer. In view of close proximity to the GI tract, we will need to cover for the gram-negative. 2. Patient with abnormal x-ray suggestive of the right lower lobe pneumonia. Patient does not seem to have significant respiratory symptoms with concern for possible atelectasis. 3. Positive UA. Concern likely for a symptomatic gram-negative urinary tract infection. 4. Patient with significant diarrhea. Stool for Clostridium difficile requested came back positive with likely symptomatic Clostridium difficile colitis. PLAN: 1. Discontinue the IV vancomycin. 2. Start the patient on vancomycin 250 p.o. q.6 hours for Clostridium difficile colitis. 3. We will keep the patient on cefepime 2 grams q.12 hours to cover for the infected left gluteal pressure ulcer also with question of and pneumonia. 4. Have surgical debridement of his left gluteal wound and deep cultures at time of surgical debridement. 5. We will follow up on his clinical condition and investigations to further adjust medication if needed. Thank you for this consultation. Will follow this patient along with you. MMODL / IJN: [id number] /
[2019-11-15] MEDS: FERROUS SULFATE 325 MG TAB PO SCH ×3 (07:06→17:18)
[2019-11-15] MEDS: LEVOTHYROXINE 25 MCG TAB PO SCH (07:06)
[2019-11-15] MEDS ORDERED: ALBUTEROL HFA INHALER INHALATION PRN (07:42)
[2019-11-15] MEDS ORDERED: TIOTROPIUM 18 MCG/PUFF INHALER INHALATION PRN (07:43)
[2019-11-15] MEDS: CEFEPIME 2 GM in SODIUM CHLORIDE 0.9% 100 ML IVPB SCH (08:30)
[2019-11-15] MEDS: ASPIRIN 81 MG PO SCH (08:31)
[2019-11-15] MEDS: FUROSEMIDE 40 MG TAB PO SCH (08:31)
[2019-11-15] MEDS: MAGNESIUM OXIDE 400 MG TAB PO SCH ×2 (08:31→17:18)
[2019-11-15] MEDS: ALLOPURINOL 100 MG TAB PO SCH (08:31)
[2019-11-15] MEDS: FLUoxetine HCL 20 MG CAP PO SCH (08:31)
[2019-11-15] MEDS: METOPROLOL TARTRATE 50 MG TAB PO SCH ×2 (08:31→17:18)
[2019-11-15] MEDS: TAMSULOSIN 0.4 MG CAP.ER.24H PO SCH (08:31)
[2019-11-15] MEDS: ATORVASTATIN 40 MG TAB PO SCH (08:31)
[2019-11-15] MEDS: CLOPIDOGREL 75 MG TAB PO SCH (08:31)
[2019-11-15] MEDS: LISINOPRIL 2.5 MG TAB PO SCH (08:32)
[2019-11-15] MEDS: SODIUM BICARBONATE TAB 650 MG TAB PO SCH ×3 (08:32→22:22)
[2019-11-15 08:55] LABS: African American GFR (CKD) >90 (>60 ml/min/1.73 sqM); Non-African American GFR(CKD) 83 (>60 ml/min/1.73 sqM)
--- NOTE | 2019-11-15 11:14 | P.PN ---
Subjective HISTORY OF PRESENTING ILLNESS 64-year-old -[place] male presented to the hospital for evaluation of chronic sacral wound. He has no complaints today. Infectious disease is following and recommending surgical debridement. Maintained on aspirin and plavix secondary to stent placement 10/15/2019. PHYSICAL EXAMINATION Blood pressure 94/62 heart rate 67 afebrile and maintaining oxygen saturation on room air. CONSTITUTIONAL: No apparent distress. NEUROLOGIC EXAMINATION: Patient is awake, alert and oriented x3. WOUND: Left gluteal: Boggy skin with erythema noted around large coccyx wound that is unstagable. Stool noted under the dressing when removed. Right gluteal: Stage II with minimal subcutaneous tissue. ASSESSMENT Decuitus ulcer PLAN Plan for surgical debridement Monday. Continue wound care per nursing staff. The above impression and plan of care have been discussed and directed by the signing physician. Collette Narayan, nurse practitioner, acting as scribe for signing physician. Objective - Vital Signs Vital signs: Vital Signs Temp 97 F L 11/15/19 08:00 Pulse 67 11/15/19 08:00 Resp 18 11/15/19 08:00 BP 94/62 11/15/19 08:00 Pulse Ox 93 L 11/15/19 08:00 Intake & Output 11/14/19 11/15/19 11/15/19 18:59 06:59 18:59 Intake Total 90 100 Output Total 1425 450 Balance -1335 -350 Weight 49 kg 49 kg Intake: Oral 90 100 Output: Urine 1425 450 Uretheral (Beaulieu) 375 Other: Voiding Method Indwelling Catheter Indwelling Catheter Indwelling Catheter # Voids 1 0 # Bowel Movements 2 - Labs CBC & Chem 7: 11/14/19 08:47 11/15/19 07:50 Labs: Abnormal Lab Results - Last 24 Hours (Table) 11/14/19 Range/Units 17:00 C. difficile (EIA) Intrp Positive A (Negative) Microbiology - Last 24 Hours (Table) 11/13/19 17:38 Urine Culture - Preliminary Urine,Voided Gram Neg Bacilli 11/13/19 14:56 Blood Culture - Preliminary Blood No Growth after 24 hours
--- NOTE | 2019-11-15 19:20 | P.PN ---
Progress Note - Text Progress Note Date: 11/15/19 Chief Complaint: Decub ulcers History of presenting complaint: This is a pleasant [address] 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 Patient was just in the hospital from November 05 through November 11. With GI bleed. EGD was unremarkable. Patient did do bowel preparation for colonoscopy. Aspirin Plavix was resumed. Eliquis was held. Patient seen by the wound care nurse Nicole on the last admission. Outpatient follow-up recommended. -patient was seen by Dr. Zeng. He felt that the sacral decub also needs to be debrided. As the patient being sent down. Patient has occasional cough which is chronic. No shortness of breath. No fever or chills. Appetite is good. Admitted with-advancing decub's. Today-Stool positive for C. diff.. Wound care per Dr. Nation. Had loose stools. Review of systems: Was done for constitutional, cardiovascular, GI, pulmonary. relevant finding as above Active Medications Acetaminophen (Tylenol Tab) 650 mg PO Q6HR PRN PRN Reason: Mild Pain or Fever > 100.5 Acetaminophen (Tylenol Tab) 650 mg PO Q6HR PRN PRN Reason: Fever and/ or Pain Hydrocodone Bitart/Acetaminophen ([place] 10) 1 each PO QID PRN PRN Reason: Pain Last Admin: 11/14/19 13:27 Dose: 1 each Documented by: Albuterol Sulfate (Ventolin Hfa Inhaler) 2 puff INHALATION RT-QID PRN PRN Reason: Shortness Of Breath Or Wheezing Allopurinol (Zyloprim) 100 mg PO DAILY@0800 [facility] Last Admin: 11/15/19 08:31 Dose: 100 mg Documented by: Aspirin (Aspirin) 81 mg PO DAILY@0800 [facility] Last Admin: 11/15/19 08:31 Dose: 81 mg Documented by: Atorvastatin Calcium (Lipitor) 40 mg PO DAILY [facility] Last Admin: 11/15/19 08:31 Dose: 40 mg Documented by: Bisacodyl (Dulcolax) 10 mg RECTAL DAILY PRN PRN Reason: Constipation Cholestyramine Resin (Questran) 4 gm PO PC-TID PRN PRN Reason: Diarrhea Clopidogrel Bisulfate (Plavix) 75 mg PO DAILY@0800 [facility] Last Admin: 11/15/19 08:31 Dose: 75 mg Documented by: Ferrous Sulfate (Feosol) 325 mg PO AC-TID [facility] Last Admin: 11/15/19 17:18 Dose: 325 mg Documented by: Fluoxetine HCl (Prozac) 20 mg PO DAILY@0800 [facility] Last Admin: 11/15/19 08:31 Dose: 20 mg Documented by: Furosemide (Lasix) 40 mg PO DAILY@0800 [facility] Last Admin: 11/15/19 08:31 Dose: 40 mg Documented by: Sodium Chloride (Saline 0.9%) 1,000 mls @ 120 mls/hr IV .Q8H20M [facility] Last Admin: 11/15/19 08:32 Dose: 120 mls/hr Documented by: Cefepime HCl 2 gm/ Sodium (Chloride) 100 mls @ 200 mls/hr IVPB Q12HR [facility] Last Admin: 11/15/19 08:30 Dose: 200 mls/hr Documented by: Levothyroxine Sodium (Synthroid) 25 mcg PO DAILY@0630 [facility] Last Admin: 11/15/19 07:06 Dose: 25 mcg Documented by: Lisinopril (Zestril) 2.5 mg PO DAILY@0800 [facility] Last Admin: 11/15/19 08:32 Dose: 2.5 mg Documented by: Magnesium Hydroxide (Milk Of Magnesia) 2,400 mg PO Q48H PRN PRN Reason: Constipation Magnesium Oxide (Mag-Ox) 400 mg PO BID@0800,1700 [facility] Last Admin: 11/15/19 17:18 Dose: 400 mg Documented by: Metoprolol Tartrate (Lopressor) 50 mg PO BID@0800,1700 [facility] Last Admin: 11/15/19 17:18 Dose: 50 mg Documented by: Naloxone HCl (Narcan) 0.2 mg IV Q2M PRN PRN Reason: Opioid Reversal Nitroglycerin (Nitrostat) 0.4 mg SUBLINGUAL Q5M PRN PRN Reason: Chest Pain Quetiapine Fumarate (Seroquel) 25 mg PO HS@2100 [facility] Last Admin: 11/14/19 21:59 Dose: 25 mg Documented by: Sodium Bicarbonate (Sodium Bicarbonate Tab) 650 mg PO TID [facility] Last Admin: 11/15/19 17:18 Dose: 650 mg Documented by: Sodium Biphosphate/Sodium Phosphate (Fleet Adult) 133 ml RECTAL DAILY PRN PRN Reason: Constipation Tamsulosin HCl (Flomax) 0.4 mg PO PC-BRKFST@0800 [facility] Last Admin: 11/15/19 08:31 Dose: 0.4 mg Documented by: Tiotropium [place] (Spiriva) 1 puff INHALATION RT-DAILY PRN PRN Reason: SHORTNESS OF BREATH Vancomycin HCl (Vancomycin Oral Solution) 250 mg PO Q6HR [facility] Last Admin: 11/15/19 17:18 Dose: 250 mg Documented by: On examination: VITAL SIGNS: 96.9, 82, 19, 102/87, 97% on 5 L GENERAL APPEARANCE: Laying in bed, comfortable, awake HEENT: Normal external appearance of nose and ear. Oral cavity normal EYES: Pupils equal. Conjunctiva pale NECK: JVD not raised. Mass not palpable. RESPIRATORY: Respiratory effort normal. Decreased breath sounds CARDIOVASCULAR: First and second sounds normal. No edema. ABDOMEN: Soft. Liver and spleen not palpable. No tenderness. No mass palpable. Has a Beaulieu catheter. DERMATOLOGICAL: Multiple decubitus ulcers see nursing note PSYCHIATRY: Awake, answering simple questions EXTREMITY:. Left above-knee amputation. INVESTIGATIONS, reviewed in the clinical context: Stool-positive for C. diff Previous testing White count 11 hemoglobin 6.9 platelets 310 progression 3.9 creatinine 1 troponin I 0.123 Coronavirus PCR not detected Phones at type A type B both negative UA positive for leukoesterase WBC. Assessment: -Acute C. diff colitis -Acute UTI from cystitis secondary to Beaulieu catheter -Left gluteus unstageable ulcer, right gluteus also stage II lower extremity second digit ulcer -Recent hospital admission for Acute GI bleed-EGD unremarkable, patient refused colonoscopy preparation -nonsustained V. tach -Persistent atrial fibrillation on Eliquis at home, currently held -coronary artery disease status post stent placement in RCA and LAD was on Plavix -Diabetes mellitus -Hypothyroid -Chronic kidney disease stage II secondary to diabetes mellitus -Essential Hypertension -coronary artery disease -Benign prostatic hypertrophy -Peripheral artery disease -Left above-knee amputation - anxiety and depression, -Troponin leak due to hemodynamic mismatch -Severe protein malnutrition-BMI 15.1 Plan: Patient is on IV cefepime and vancomycin. Also started on by mouth Vanco. Plan for surgery to debridement on Monday
[2019-11-15] MEDS: QUEtiapine 25 MG TAB PO SCH (22:22)
--- NOTE | 2019-11-15 23:20 | PN ---
PROGRESS NOTE DATE OF SERVICE: 11/15/2019 REASON FOR FOLLOWUP: 1. Left gluteal infected pressure ulcer. 2. Pseudomonas UTI. 3. C difficile colitis. INTERVAL HISTORY: The patient is currently afebrile, has been breathing comfortably. Denies having any chest pain or shortness of breath or cough. Pain to the left gluteal area is currently controlled. No nausea, no vomiting. Still has a fecal management system for his diarrhea, but no worsening output has been reported. PHYSICAL EXAMINATION: Blood pressure 119/69 with a pulse of 58, temperature 97.1. He is 96% on 5 L nasal cannula. General description is a middle-aged male lying in bed in no distress. RESPIRATORY SYSTEM: Unlabored breathing. Clear to auscultation anteriorly. HEART: S1, S2. Regular rate and rhythm. ABDOMEN: Soft. No tenderness. Wounds are currently dressed up. LABS: Hemoglobin 7.6, white count 7.0. BUN of 10, creatinine 0.98. DIAGNOSTIC IMPRESSION AND PLAN: 1. Patient with infected gluteal pressure ulcer for possible debridement on Monday and deep cultures. Local care to continue. 2. Pseudomonas urinary tract infection, covered with cefepime. 3. Clostridium difficile colitis. Patient to continue with oral vancomycin. Will monitor clinical course closely. MMODL / IJN: [id number] /
[2019-11-16] MEDS: SODIUM CHLORIDE 0.9% 1,000 ML IV SCH ×4 (05:00→20:10)
[2019-11-16] MEDS: CEFEPIME 2 GM in SODIUM CHLORIDE 0.9% 100 ML IVPB SCH ×4 (05:01→20:09)
[2019-11-16] MEDS: LEVOTHYROXINE 25 MCG TAB PO SCH (06:18)
[2019-11-16] MEDS: VANCOMYCIN ORAL SOLUTION 250 MG/5 ML BOTTLE PO SCH ×4 (06:18→16:31)
[2019-11-16 07:28] LABS: Calcium 7.7 mg/dL (8.4-10.2)
[2019-11-16 07:35] LABS: Anisocytosis Slight; HCT 28.6 % (39.0-53.0); HGB 8.6 gm/dL (13.0-17.5); Hypochromasia Marked; MCH 25.7 pg (25.0-35.0); MCHC 30.2 g/dL (31.0-37.0); MCV 85.1 fL (80.0-100.0); Mean Platelet Volume 9.4; Platelet Count 285 k/uL (150-450); Poikilocytosis Moderate; RBC 3.36 m/uL (4.30-5.90); RDW 16.9 % (11.5-15.5); WBC 13.8 k/uL (3.8-10.6)
[2019-11-16 07:43] LABS: Potassium 4.1 mmol/L (3.5-5.1)
[2019-11-16] MEDS: SODIUM BICARBONATE TAB 650 MG TAB PO SCH ×3 (08:36→20:09)
[2019-11-16] MEDS: LISINOPRIL 2.5 MG TAB PO SCH (08:36)
[2019-11-16] MEDS: TAMSULOSIN 0.4 MG CAP.ER.24H PO SCH (08:36)
[2019-11-16] MEDS: ATORVASTATIN 40 MG TAB PO SCH (08:36)
[2019-11-16] MEDS: FLUoxetine HCL 20 MG CAP PO SCH (08:36)
[2019-11-16] MEDS: FUROSEMIDE 40 MG TAB PO SCH (08:36)
[2019-11-16] MEDS: METOPROLOL TARTRATE 50 MG TAB PO SCH ×2 (08:36→16:24)
[2019-11-16] MEDS: ALLOPURINOL 100 MG TAB PO SCH (08:36)
[2019-11-16] MEDS: CLOPIDOGREL 75 MG TAB PO SCH (08:36)
[2019-11-16] MEDS: FERROUS SULFATE 325 MG TAB PO SCH ×3 (08:36→16:24)
[2019-11-16] MEDS: MAGNESIUM OXIDE 400 MG TAB PO SCH ×2 (08:36→16:24)
[2019-11-16] MEDS: ASPIRIN 81 MG PO SCH (08:36)
--- NOTE | 2019-11-16 10:07 | P.PN ---
Subjective Progress Note Date: 11/16/19 Principal diagnosis: Left gluteal decubitus ulcer Patient without new complaints. White blood cell count up slightly to 13.8. Patient is afebrile. Remains on antibiotics. Objective - Vital Signs Vital signs: Vital Signs Temp 98.2 F 11/16/19 08:00 Pulse 66 11/16/19 08:00 Resp 18 11/16/19 08:00 BP 124/66 11/16/19 08:00 Pulse Ox 98 11/16/19 08:00 Intake & Output 11/15/19 11/16/19 11/16/19 18:59 06:59 18:59 Intake Total 270 540 Output Total 300 200 Balance 270 240 -200 Weight 95.7 kg Intake: Oral 270 540 Output: Urine 300 200 Uretheral (Beaulieu) 200 Other: Voiding Method Indwelling Catheter Indwelling Catheter Indwelling Catheter # Voids 1 1 # Bowel Movements 1 - Exam Left gluteal decubitus ulcer dressing intact Abdomen: Soft, nontender, nondistended - Labs CBC & Chem 7: 11/16/19 06:20 11/16/19 06:20 Labs: Abnormal Lab Results - Last 24 Hours (Table) 11/16/19 11/16/19 Range/Units 06:20 06:20 WBC 13.8 H (3.8-10.6) k/uL RBC 3.36 L (4.30-5.90) m/uL Hgb 8.6 L (13.0-17.5) gm/dL Hct 28.6 L (39.0-53.0) % MCHC 30.2 L (31.0-37.0) g/dL RDW 16.9 H (11.5-15.5) % Chloride 120 H (98-107) mmol/L Carbon Dioxide 16 L (22-30) mmol/L BUN 30 H (9-20) mg/dL Calcium 7.7 L (8.4-10.2) mg/dL Microbiology - Last 24 Hours (Table) 11/13/19 17:38 Urine Culture - Final Urine,Voided Pseudomonas aeruginosa 11/13/19 14:56 Blood Culture - Preliminary Blood No Growth after 48 hours Assessment and Plan (1) Pressure ulcer Narrative/Plan: Continue antibiotics for UTI, C. diff, and gluteal decubitus ulcer. Plans are underway for surgical debridement Monday. Current Visit: Yes Status: Acute Code(s): L89.90 - PRESSURE ULCER OF UNSPECIFIED SITE, UNSPECIFIED STAGE SNOMED Code(s): 508321723
--- NOTE | 2019-11-16 15:43 | P.PN ---
Progress Note - Text Progress Note Date: 11/16/19 Chief Complaint: Decub ulcers History of presenting complaint: This is a pleasant [address] 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 Patient was just in the hospital from November 05 through November 11. With GI bleed. EGD was unremarkable. Patient did do bowel preparation for colonoscopy. Aspirin Plavix was resumed. Eliquis was held. Patient seen by the wound care nurse Nicole on the last admission. Outpatient follow-up recommended. -patient was seen by Dr. Zeng. He felt that the sacral decub also needs to be debrided. As the patient being sent down. Patient has occasional cough which is chronic. No shortness of breath. No fever or chills. Appetite is good. Admitted with-advancing decub's. Also came back showing C. diff colitis. Today-yesterday evening patient became hypotensive. Hypothermic. Warming blankets were applied. Tired. Fecal management system in place. Review of systems: Was done for constitutional, cardiovascular, GI, pulmonary. relevant finding as above Active Medications Acetaminophen (Tylenol Tab) 650 mg PO Q6HR PRN PRN Reason: Mild Pain or Fever > 100.5 Acetaminophen (Tylenol Tab) 650 mg PO Q6HR PRN PRN Reason: Fever and/ or Pain Hydrocodone Bitart/Acetaminophen ([place] 10) 1 each PO QID PRN PRN Reason: Pain Last Admin: 11/14/19 13:27 Dose: 1 each Documented by: Albuterol Sulfate (Ventolin Hfa Inhaler) 2 puff INHALATION RT-QID PRN PRN Reason: Shortness Of Breath Or Wheezing Allopurinol (Zyloprim) 100 mg PO DAILY@0800 [facility] Last Admin: 11/16/19 08:36 Dose: 100 mg Documented by: Aspirin (Aspirin) 81 mg PO DAILY@0800 [facility] Last Admin: 11/16/19 08:36 Dose: 81 mg Documented by: Atorvastatin Calcium (Lipitor) 40 mg PO DAILY [facility] Last Admin: 11/16/19 08:36 Dose: 40 mg Documented by: Bisacodyl (Dulcolax) 10 mg RECTAL DAILY PRN PRN Reason: Constipation Cholestyramine Resin (Questran) 4 gm PO PC-TID PRN PRN Reason: Diarrhea Clopidogrel Bisulfate (Plavix) 75 mg PO DAILY@0800 [facility] Last Admin: 11/16/19 08:36 Dose: 75 mg Documented by: Ferrous Sulfate (Feosol) 325 mg PO AC-TID [facility] Last Admin: 11/16/19 11:27 Dose: Not Given Documented by: Fluoxetine HCl (Prozac) 20 mg PO DAILY@0800 [facility] Last Admin: 11/16/19 08:36 Dose: 20 mg Documented by: Furosemide (Lasix) 40 mg PO DAILY@0800 [facility] Last Admin: 11/16/19 08:36 Dose: 40 mg Documented by: Sodium Chloride (Saline 0.9%) 1,000 mls @ 120 mls/hr IV .Q8H20M [facility] Last Admin: 11/16/19 08:51 Dose: Not Given Documented by: Cefepime HCl 2 gm/ Sodium (Chloride) 100 mls @ 200 mls/hr IVPB Q12HR [facility] Last Admin: 11/16/19 08:36 Dose: 200 mls/hr Documented by: Levothyroxine Sodium (Synthroid) 25 mcg PO DAILY@0630 [facility] Last Admin: 11/16/19 06:18 Dose: 25 mcg Documented by: Lisinopril (Zestril) 2.5 mg PO DAILY@0800 [facility] Last Admin: 11/16/19 08:36 Dose: 2.5 mg Documented by: Magnesium Hydroxide (Milk Of Magnesia) 2,400 mg PO Q48H PRN PRN Reason: Constipation Magnesium Oxide (Mag-Ox) 400 mg PO BID@0800,1700 [facility] Last Admin: 11/16/19 08:36 Dose: 400 mg Documented by: Metoprolol Tartrate (Lopressor) 50 mg PO BID@0800,1700 [facility] Last Admin: 11/16/19 08:36 Dose: 50 mg Documented by: Naloxone HCl (Narcan) 0.2 mg IV Q2M PRN PRN Reason: Opioid Reversal Nitroglycerin (Nitrostat) 0.4 mg SUBLINGUAL Q5M PRN PRN Reason: Chest Pain Quetiapine Fumarate (Seroquel) 25 mg PO HS@2100 [facility] Last Admin: 11/15/19 22:22 Dose: 25 mg Documented by: Sodium Bicarbonate (Sodium Bicarbonate Tab) 650 mg PO TID [facility] Last Admin: 11/16/19 08:36 Dose: 650 mg Documented by: Sodium Biphosphate/Sodium Phosphate ([place]le[place] Adult) 133 ml RECTAL DAILY PRN PRN Reason: Constipation Tamsulosin HCl (Flomax) 0.4 mg PO PC-BRKFST@0800 [facility] Last Admin: 11/16/19 08:36 Dose: 0.4 mg Documented by: Tiotropium [place] (Spiriva) 1 puff INHALATION RT-DAILY PRN PRN Reason: SHORTNESS OF BREATH Vancomycin HCl (Vancomycin Oral Solution) 250 mg PO Q6HR [facility] Last Admin: 11/16/19 11:21 Dose: 250 mg Documented by: On examination: VITAL SIGNS: 97.6, 61, 18, 100/64, 98% room air GENERAL APPEARANCE: Laying in bed, comfortable, awake HEENT: Normal external appearance of nose and ear. Oral cavity normal EYES: Pupils equal. Conjunctiva pale NECK: JVD not raised. Mass not palpable. RESPIRATORY: Respiratory effort normal. Decreased breath sounds CARDIOVASCULAR: First and second sounds normal. No edema. ABDOMEN: Soft. Liver and spleen not palpable. No tenderness. No mass palpable. Has a Beaulieu catheter. DERMATOLOGICAL: Multiple decubitus ulcers see nursing note PSYCHIATRY: Awake, answering simple questions EXTREMITY:. Left above-knee amputation. INVESTIGATIONS, reviewed in the clinical context: White count 13.8 hemoglobin 8.6 pressure 4.1 creatinine 1.06 Previous testing White count 11 hemoglobin 6.9 platelets 310 progression 3.9 creatinine 1 troponin I 0.123 Coronavirus PCR not detected Phones at type A type B both negative UA positive for leukoesterase WBC. Stool-positive for C. diff Urine culture-Pseudomonas aeruginosa Assessment: -Acute C. diff colitis-slow to respond -Acute UTI from cystitis from pseudomonas aeruginosa secondary to Beaulieu catheter -Left gluteus unstageable ulcer, right gluteus also stage II lower extremity second digit ulcer -Recent hospital admission for Acute GI bleed-EGD unremarkable, patient refused colonoscopy preparation -Hypothermia-new diagnosis -nonsustained V. tach -Persistent atrial fibrillation on Eliquis at home, currently held -coronary artery disease status post stent placement in RCA and LAD was on [place] vix -Diabetes mellitus -Hypothyroid -Chronic kidney disease stage II secondary to diabetes mellitus -Essential Hypertension, currently hypotension-new diagnosis -coronary artery disease -Benign prostatic hypertrophy -Peripheral artery disease -Left above-knee amputation - anxiety and depression, -Troponin leak due to hemodynamic mismatch -Severe protein malnutrition-BMI 15.1 Plan: Remains on IV cefepime and vancomycin. Oral-Vanco. Warming blankets at in place. IV fluids in place. We will get a midline placed Monday. Pending debridement on Monday. Prognosis guarded.
--- NOTE | 2019-11-16 19:20 | PN ---
PROGRESS NOTE DATE OF SERVICE: 11/16/2019 REASON FOR FOLLOW UP: 1. Infected left gluteal pressure ulcer. 2. Pseudomonas urinary tract infection and C difficile colitis. INTERVAL HISTORY: The patient is currently afebrile, has been breathing comfortably. He did have some cough but no sputum. No nausea, vomiting, abdominal pain and diarrhea has decreased and monitored per the nurse. The patient still has a fecal management system. PHYSICAL EXAMINATION: Blood pressure 100/64, pulse of 71, temperature 97.6. He is 98% on room air. General description is a middle-aged male lying in bed in no distress. Respiratory system: Unlabored breathing. Clear to auscultation anteriorly. Heart S1, S2. Regular rate and rhythm. Abdomen soft, no tenderness. LABS: Hemoglobin 8.4, white count 13.9, BUN of 30, creatinine 1.06. DIAGNOSTIC IMPRESSION AND PLAN: 1. Patient with infected left gluteal pressure ulcer. Awaiting surgical debridement and deep cultures. The patient is currently covered with Cefepime. That should cover his Pseudomonas urinary tract infection as well. 2. The patient C difficile colitis currently covered with p.o. vancomycin to continue and monitor clinical course closely. MMODL / IJN: [id number] /
[2019-11-16] MEDS: QUEtiapine 25 MG TAB PO SCH (20:09)
[2019-11-17] MEDS: VANCOMYCIN ORAL SOLUTION 250 MG/5 ML BOTTLE PO SCH ×4 (06:47→23:08)
[2019-11-17] MEDS: LEVOTHYROXINE 25 MCG TAB PO SCH (06:47)
[2019-11-17] MEDS: SODIUM CHLORIDE 0.9% 1,000 ML IV SCH ×3 (06:47→23:02)
[2019-11-17] MEDS: FERROUS SULFATE 325 MG TAB PO SCH ×3 (06:47→16:18)
[2019-11-17] MEDS: ALLOPURINOL 100 MG TAB PO SCH (08:23)
[2019-11-17] MEDS: FLUoxetine HCL 20 MG CAP PO SCH (08:24)
[2019-11-17] MEDS: LISINOPRIL 2.5 MG TAB PO SCH (08:24)
[2019-11-17] MEDS: MAGNESIUM OXIDE 400 MG TAB PO SCH ×2 (08:24→16:17)
[2019-11-17] MEDS: ASPIRIN 81 MG PO SCH (08:24)
[2019-11-17] MEDS: METOPROLOL TARTRATE 50 MG TAB PO SCH ×2 (08:24→16:17)
[2019-11-17] MEDS: FUROSEMIDE 40 MG TAB PO SCH (08:24)
[2019-11-17] MEDS: ATORVASTATIN 40 MG TAB PO SCH (08:24)
[2019-11-17] MEDS: CLOPIDOGREL 75 MG TAB PO SCH (08:24)
[2019-11-17] MEDS: SODIUM BICARBONATE TAB 650 MG TAB PO SCH ×3 (08:24→20:11)
[2019-11-17] MEDS: TAMSULOSIN 0.4 MG CAP.ER.24H PO SCH (08:24)
[2019-11-17] MEDS: CEFEPIME 2 GM in SODIUM CHLORIDE 0.9% 100 ML IVPB SCH ×2 (10:10→20:10)
--- NOTE | 2019-11-17 11:04 | P.PN ---
Subjective Progress Note Date: 11/17/19 Principal diagnosis: Left gluteal decubitus ulcer Patient confused. No obvious discomfort or distress. White blood cell count slightly increased. Objective - Vital Signs Vital signs: Vital Signs Temp 95.6 F L 11/17/19 08:00 Pulse 62 11/17/19 08:00 Resp 18 11/17/19 08:00 BP 124/64 11/17/19 08:00 Pulse Ox 98 11/17/19 08:00 Intake & Output 11/16/19 11/17/19 11/17/19 18:59 06:59 18:59 Intake Total 100 Output Total 200 250 Balance -200 -150 Weight 90.36 kg Intake: Oral 100 Output: Urine 200 250 Uretheral ([place]) 200 Other: Voiding Method Indwelling Catheter Indwelling Catheter Indwelling Catheter - Exam Dressing intact left decubitus ulcer - Labs CBC & Chem 7: 11/16/19 06:20 11/16/19 06:20 Labs: Microbiology - Last 24 Hours (Table) 11/13/19 14:56 Blood Culture - Preliminary Blood No Growth after 72 hours Assessment and Plan (1) Pressure ulcer Narrative/Plan: Nothing by mouth after midnight for debridement decubitus ulcer tomorrow. Continue antibiotics. Current Visit: Yes Status: Acute Code(s): L89.90 - PRESSURE ULCER OF UNSPECIFIED SITE, UNSPECIFIED STAGE SNOMED Code(s): 023323329
--- NOTE | 2019-11-17 14:38 | P.PN ---
Progress Note - Text Progress Note Date: 11/17/19 Chief Complaint: Decub ulcers History of presenting complaint: This is a pleasant [address] 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 Patient was just in the hospital from November 05 through November 11. With GI bleed. EGD was unremarkable. Patient did do bowel preparation for colonoscopy. Aspirin Plavix was resumed. Eliquis was held. Patient seen by the wound care nurse Nicole on the last admission. Outpatient follow-up recommended. -patient was seen by Dr. Zeng. He felt that the sacral decub also needs to be debrided. As the patient being sent down. Patient has occasional cough which is chronic. No shortness of breath. No fever or chills. Appetite is good. Admitted with-advancing decub's. Also came back showing C. diff colitis. Patient also became hypotensive and hypothermic. Given a warming blanket. Today-tired. No new issues. Still with a warming blanket. Barely eating Review of systems: Was done for constitutional, cardiovascular, GI, pulmonary. relevant finding as above Active Medications Acetaminophen (Tylenol Tab) 650 mg PO Q6HR PRN PRN Reason: Mild Pain or Fever > 100.5 Acetaminophen (Tylenol Tab) 650 mg PO Q6HR PRN PRN Reason: Fever and/ or Pain Hydrocodone Bitart/Acetaminophen ([place] 10) 1 each PO QID PRN PRN Reason: Pain Last Admin: 11/14/19 13:27 Dose: 1 each Documented by: Albuterol Sulfate (Ventolin Hfa Inhaler) 2 puff INHALATION RT-QID PRN PRN Reason: Shortness Of Breath Or Wheezing Allopurinol (Zyloprim) 100 mg PO DAILY@0800 [facility] Last Admin: 11/17/19 08:23 Dose: Not Given Documented by: Aspirin (Aspirin) 81 mg PO DAILY@0800 [facility] Last Admin: 11/17/19 08:24 Dose: Not Given Documented by: Atorvastatin Calcium (Lipitor) 40 mg PO DAILY [facility] Last Admin: 11/17/19 08:24 Dose: Not Given Documented by: Bisacodyl (Dulcolax) 10 mg RECTAL DAILY PRN PRN Reason: Constipation Cholestyramine Resin (Questran) 4 gm PO PC-TID PRN PRN Reason: Diarrhea Clopidogrel Bisulfate (Plavix) 75 mg PO DAILY@0800 [facility] Last Admin: 11/17/19 08:24 Dose: Not Given Documented by: Ferrous Sulfate (Feosol) 325 mg PO AC-TID [facility] Last Admin: 11/17/19 13:08 Dose: Not Given Documented by: Fluoxetine HCl (Prozac) 20 mg PO DAILY@0800 [facility] Last Admin: 11/17/19 08:24 Dose: Not Given Documented by: Furosemide (Lasix) 40 mg PO DAILY@0800 [facility] Last Admin: 11/17/19 08:24 Dose: Not Given Documented by: Sodium Chloride (Saline 0.9%) 1,000 mls @ 120 mls/hr IV .Q8H20M [facility] Last Admin: 11/17/19 06:47 Dose: Not Given Documented by: Cefepime HCl 2 gm/ Sodium (Chloride) 100 mls @ 200 mls/hr IVPB Q12HR [facility] Last Admin: 11/17/19 10:10 Dose: 200 mls/hr Documented by: Levothyroxine Sodium (Synthroid) 25 mcg PO DAILY@0630 [facility] Last Admin: 11/17/19 06:47 Dose: Not Given Documented by: Lisinopril (Zestril) 2.5 mg PO DAILY@0800 [facility] Last Admin: 11/17/19 08:24 Dose: Not Given Documented by: Magnesium Hydroxide (Milk Of Magnesia) 2,400 mg PO Q48H PRN PRN Reason: Constipation Magnesium Oxide (Mag-Ox) 400 mg PO BID@0800,1700 [facility] Last Admin: 11/17/19 08:24 Dose: Not Given Documented by: Metoprolol Tartrate (Lopressor) 50 mg PO BID@0800,1700 [facility] Last Admin: 11/17/19 08:24 Dose: Not Given Documented by: Naloxone HCl (Narcan) 0.2 mg IV Q2M PRN PRN Reason: Opioid Reversal Nitroglycerin (Nitrostat) 0.4 mg SUBLINGUAL Q5M PRN PRN Reason: Chest Pain Quetiapine Fumarate (Seroquel) 25 mg PO HS@2100 [facility] Last Admin: 11/16/19 20:09 Dose: 25 mg Documented by: Sodium Bicarbonate (Sodium Bicarbonate Tab) 650 mg PO TID [facility] Last Admin: 11/17/19 08:24 Dose: Not Given Documented by: Sodium Biphosphate/Sodium Phosphate (Fleet Adult) 133 ml RECTAL DAILY PRN PRN Reason: Constipation Tamsulosin HCl (Flomax) 0.4 mg PO PC-BRKFST@0800 [facility] Last Admin: 11/17/19 08:24 Dose: Not Given Documented by: Tiotropium [place] (Spiriva) 1 puff INHALATION RT-DAILY PRN PRN Reason: SHORTNESS OF BREATH Vancomycin HCl (Vancomycin Oral Solution) 250 mg PO Q6HR [facility] Last Admin: 11/17/19 13:08 Dose: Not Given Documented by: On examination: VITAL SIGNS: 95.6, 62, 18, 124/64, 98% on 8 L GENERAL APPEARANCE: Laying in bed, comfortable, tired HEENT: Normal external appearance of nose and ear. Oral cavity normal EYES: Pupils equal. Conjunctiva pale NECK: JVD not raised. Mass not palpable. RESPIRATORY: Respiratory effort normal. Decreased breath sounds CARDIOVASCULAR: First and second sounds normal. No edema. ABDOMEN: Soft. Liver and spleen not palpable. No tenderness. No mass palpable. Has a Beaulieu catheter. DERMATOLOGICAL: Multiple decubitus ulcers see nursing note PSYCHIATRY: Awake, answering simple questions EXTREMITY:. Left above-knee amputation. INVESTIGATIONS, reviewed in the clinical context: White count 13.8 hemoglobin 8.6 pressure 4.1 creatinine 1.06 Previous testing White count 11 hemoglobin 6.9 platelets 310 progression 3.9 creatinine 1 troponin I 0.123 Coronavirus PCR not detected Phones at type A type B both negative UA positive for leukoesterase WBC. Stool-positive for C. diff Urine culture-Pseudomonas aeruginosa Assessment: -Acute C. diff colitis-slow to respond -Acute UTI from cystitis from pseudomonas aeruginosa secondary to Beaulieu catheter -Left gluteus unstageable ulcer, right gluteus also stage II lower extremity second digit ulcer -Recent hospital admission for Acute GI bleed-EGD unremarkable, patient refused colonoscopy preparation -Hypothermia Slow to respond -nonsustained V. tach -Persistent atrial fibrillation on Eliquis at home, currently held -coronary artery disease status post stent placement in RCA and LAD was on Plavix -Diabetes mellitus -Hypothyroid -Chronic kidney disease stage II secondary to diabetes mellitus -Essential Hypertension, currently hypotension-new diagnosis -coronary artery disease -Benign prostatic hypertrophy -Peripheral artery disease -Left above-knee amputation - anxiety and depression, -Troponin leak due hemodynamic mismatch -Severe protein malnutrition-BMI 15.1 -Metabolic acidosis Plan: Remains on IV cefepime and vancomycin. Oral-Vanco. Warming blankets at in place. IV fluids in place. . Pending debridement on Monday. Prognosis guarded. Repeat labs
[2019-11-17] MEDS: QUEtiapine 25 MG TAB PO SCH (20:11)
[2019-11-17 20:29] LABS: Glucose,Whole Blood 80 mg/dL (75-99)
--- NOTE | 2019-11-17 22:19 | PN ---
PROGRESS NOTE DATE OF SERVICE: 11/17/2019 REASON FOR FOLLOW UP: 1. Infected left gluteal pressure ulcer. 2. C difficile colitis. 3. Pseudomonas UTI. INTERVAL HISTORY: The patient is currently afebrile. He seems to be slightly lethargic and early this morning was hypothermic requiring heating blanket. The patient was awake, however, did not answer any questions. Per the nursing staff, the patient has been refusing most of his medication and no diarrhea has been noticed in the fecal management system. PHYSICAL EXAMINATION: Blood pressure 122/77, pulse of 92, temperature 98.5. He is 99% on 6 L nasal cannula. General description is a middle-aged male lying in bed in no distress. Respiratory system: Unlabored breathing, clear to auscultation anteriorly. Heart S1, S2. Regular rate and rhythm. Abdomen soft. No tenderness. LABS: Hemoglobin 8.5, white count 13.8. BUN of 30, creatinine 1.06. IMPRESSION/PLAN: 1. Patient with left gluteal infected pressure ulcer awaiting surgically primary deep cultures covered with cefepime. 2. Pseudomonas urinary tract infection covered with cefepime. 3. C difficile colitis. Overall improvement. However, the patient is currently on p.o. vanco and IV Flagyl will be added and will be discontinued once he starts taking his oral vancomycin. 4. Continue supportive care. MMODL / IJN: [id number] /
[2019-11-17] MEDS: metroNIDAZOLE-NS PMX 500 MG in SALINE 1 100ML.BAG IVPB SCH (23:02)
--- NOTE | 2019-11-18 04:22 | XR ---
EXAMINATION TYPE: XR chest 1V portable DATE OF EXAM: 11/18/2019 COMPARISON: 11/13/2019 HISTORY: Fever. Respiratory distress. TECHNIQUE: Single view FINDINGS: There is extensive airspace infiltrate in the mid and lower lung loera. There are sternal wires. Heart size is fairly normal. There is bilateral pleural effusions. IMPRESSION: Increasing pulmonary edema and pleural fluid compared to last exam. This could be worseni ng congestive heart failure. RDS is possible.
[2019-11-18 04:31] LABS: Glucose,Whole Blood 84 mg/dL (75-99)
[2019-11-18] MEDS ORDERED: FUROSEMIDE 10 MG/ML 4 ML VIAL IV STA ×2 (04:31→17:20)
[2019-11-18 04:48] LABS: Anisocytosis Slight; Basophils % (A) 0 %; Eosinophils # (A) 0.2 k/uL (0-0.7); Eosinophils % (A) 1 %; HCT 25.7 % (39.0-53.0); HGB 7.3 gm/dL (13.0-17.5); Hypochromasia Marked; Lymphocytes # (A) 1.7 k/uL (1.0-4.8); Lymphocytes % (A) 12 %; MCH 25.4 pg (25.0-35.0); MCHC 28.4 g/dL (31.0-37.0); MCV 89.5 fL (80.0-100.0); Mean Platelet Volume 8.8; Monocytes # (A) 0.3 k/uL (0-1.0); Monocytes % (A) 2 %; Neutrophils # (A) 11.3 k/uL (1.3-7.7); Neutrophils % (A) 82 %; Platelet Count 283 k/uL (150-450); Poikilocytosis Slight; RBC 2.87 m/uL (4.30-5.90); RDW 17.1 % (11.5-15.5); WBC 13.8 k/uL (3.8-10.6)
[2019-11-18 04:58] LABS: Albumin 1.9 g/dL (3.5-5.0); Calcium 8.1 mg/dL (8.4-10.2); Potassium 3.7 mmol/L (3.5-5.1); Total Bilirubin 0.7 mg/dL (0.2-1.3)
[2019-11-18] MEDS: NOREPINEPHRINE 4 MG in SODIUM CHLORIDE 0.9% 250 ML IV SCH ×2 (05:26→21:37)
[2019-11-18] MEDS: SODIUM CHLORIDE 0.9% 1,000 ML IV SCH ×3 (05:45→23:48)
--- NOTE | 2019-11-18 07:22 | XR ---
EXAMINATION TYPE: XR chest 1V portable DATE OF EXAM: 11/18/2019 COMPARISON: 11/18/2019 HISTORY: SOB, Follow Up FINDINGS: Indwelling tubes and catheters are unchanged. Near complete opacification left hemithorax likely reflects a combination of effusion, infiltrate and /or atelectasis. Scattered infiltrates throughout the right lung. Stable appearance of the cardio-mediastinal structures at this time. Pleural effusion unchanged. IMPRESSION: 1. Near complete opacification left hemithorax likely reflects a combination of effusion, infiltrate and/or atelectasis. Scattered infiltrates throughout the right lung. Clinical correlation and follo w up until resolution is recommended.
[2019-11-18] MEDS: PROPOFOL 1,000 MG in EMPTY BAG 1 BAG IV SCH ×4 (08:00→21:36)
[2019-11-18] MEDS: FERROUS SULFATE 325 MG TAB PO SCH ×3 (08:35→17:47)
[2019-11-18] MEDS: VANCOMYCIN ORAL SOLUTION 250 MG/5 ML BOTTLE PO SCH ×4 (08:35→23:18)
[2019-11-18] MEDS: LEVOTHYROXINE 25 MCG TAB PO SCH (08:35)
[2019-11-18] MEDS ORDERED: CISATRACURIUM 2 MG/ML 5 ML VIAL IV ONE (09:21)
[2019-11-18 09:54] LABS: ABG Base Excess -14.6 mmol/L; ABG HCO3 13 mmol/L (21-25); ABG Oxygen Saturation 99.7 % (94-97); ABG PCO2 31 mmHg (35-45); ABG PH 7.23 (7.35-7.45); ABG PO2 322 mmHg (83-108); ABG TCO2 14 mmol/L (19-24)
--- NOTE | 2019-11-18 09:54 | CDI ---
Documentation Clarification Form Date: 11/18/2019 09:39:18 AM From: Lotus Urena CCS, CCDS Admit Date: 11/13/2019 04:27:00 PM Patient Name: Reddy Maradiaga Visit Number: [id number] Discharge Date: ATTENTION: The Clinical Documentation Specialists (CDI) and [facility] Coding Staff appreciate your assistance in clarifying documentation. Please respond to the clarification below the line at the bottom and electronically sign. The CDI & [facility] Coding staff will review the response and follow-up if needed. Please note: Queries are made part of the Legal Health Record. If you have any questions, please contact the author of this message via ITS. Dr. Federico Alston: Per the Attending Progress Note on 11/13 & subsequent Progress Notes on 11/14, 11/15 & 11/16: "Troponin leak due to hemodynamic mismatch" without further specificity. Patient History/Risk Factors: Atrial Fibrillation on Eliquis, CAD on Plavix, COPD, DM II, GERD, Hyperlipidemia, Hypertension, Hypothyroidism, CKD II related to Diabetic Nephropathy, PAD & Alcohol abuse, former smoker. Clinical Indicators: Presented from the wound care center on 11/12 with a left gluteal decubitus ulcer, unstageable, that will require debridement (was scheduled for November 17 per surgery) & also found to have a Beaulieu catheter related UTI (Cystitis). 11/17 am, the patient became hypotensive & hypothermic & required intubation. Recently admitted with GI bleed. Troponin 11/12: 0.123^^, 0.294^^; 11/13: 0.321^^ EKG Results 11/12: R 112 Atrial fibrillation w/RVR, ST & T wave abnormality, consider inferolateral ischemic or digitalis effect, abnormal EKG. Treatment 11/12: Eliquis held, IV Cefepime & Vancomycin, Consulted Infectious Disease & Surgery, home meds. Unit of blood ordered, IV fluid 500 mls@1000 mls/hr, 11/17: I Flagyl added for C Diff, IV Lasix, IV Norepinephrine Bitartrate, Intubated in ICU. For accurate documentation please indicate if the patient is being treated/observed for one of the following conditons: Myocardial Infarction Type II ruled out Myocardial Infarction Type II Unable to determine Other Condition, please specify (Last Revision: August 2019) Myocardial infarction type II from hemodynamic mismatch MTDD
[2019-11-18 09:56] LABS: Allen Test Performed? no
[2019-11-18 10:01] LABS: Glucose,Whole Blood 109 mg/dL (75-99)
--- NOTE | 2019-11-18 10:06 | XR ---
EXAMINATION TYPE: XR chest 1V portable DATE OF EXAM: 11/18/2019 COMPARISON: Earlier in the day HISTORY: SOB, Follow Up FINDINGS: Indwelling tubes and catheters are unchanged. Appropriate NG tube course. Endotracheal tube is approx imately 3.8 cm from the fátima. Continued complete opacification left hemithorax. Scattered infiltrates right lung with pulmonary elvis ous congestion. Stable appearance of the cardio-mediastinal structures at this time. Pleural effusion unchanged. IMPRESSION: 1. Continued complete opacification left hemithorax. Scattered infiltrates right lung with pulmonary venous congestion. Clinical correlation and follow up until resolution is recommended.
[2019-11-18 10:20] LABS: Anisocytosis Slight; Basophils % (A) 0 %; Eosinophils # (A) 0.1 k/uL (0-0.7); Eosinophils % (A) 0 %; HCT 24.7 % (39.0-53.0); HGB 7.2 gm/dL (13.0-17.5); Hypochromasia Marked; Lymphocytes # (A) 1.4 k/uL (1.0-4.8); Lymphocytes % (A) 8 %; MCH 25.4 pg (25.0-35.0); MCHC 29.1 g/dL (31.0-37.0); MCV 87.1 fL (80.0-100.0); Mean Platelet Volume 9.7; Monocytes # (A) 0.4 k/uL (0-1.0); Monocytes % (A) 3 %; Neutrophils # (A) 15.1 k/uL (1.3-7.7); Neutrophils % (A) 88 %; Platelet Count 242 k/uL (150-450); Poikilocytosis Slight; RBC 2.84 m/uL (4.30-5.90); RDW 17.6 % (11.5-15.5); WBC 17.3 k/uL (3.8-10.6)
[2019-11-18] MEDS: CEFEPIME 2 GM in SODIUM CHLORIDE 0.9% 100 ML IVPB SCH ×2 (10:29→21:29)
[2019-11-18] MEDS: metroNIDAZOLE-NS PMX 500 MG in SALINE 1 100ML.BAG IVPB SCH ×3 (10:29→23:18)
[2019-11-18 10:30] LABS: Potassium 3.3 mmol/L (3.5-5.1)
[2019-11-18 10:42] LABS: C Reactive Protein 190.9 mg/L (<10.0)
--- NOTE | 2019-11-18 11:14 | US ---
EXAMINATION TYPE: US chest DATE OF EXAM: 11/18/2019 COMPARISON: Chest x-ray same date CLINICAL HISTORY: Markings for thoracentesis by pulmonary staff. ICU patient TECHNIQUE: Targeted ultrasound of the posterior lower bilateral hemithoraces EXAM MEASUREMENTS: Left Pleural Effusion pocket size: 3.3 cm Left skin surface to fluid distance: 2.2 cm Right side NOT marked for possible thoracentesis outside the dept. Left side marked for possible thoracentesis outside the dept. Pulmonologists are able to review the images in the patient?s EMR. IMPRESSIONS: Left pleural effusion
[2019-11-18] MEDS: FLUoxetine HCL 20 MG CAP PO SCH (11:19)
[2019-11-18] MEDS: TAMSULOSIN 0.4 MG CAP.ER.24H PO SCH (11:20)
[2019-11-18] MEDS: FUROSEMIDE 40 MG TAB PO SCH (11:20)
[2019-11-18] MEDS: CHLORHEXIDINE GLUCONATE 15 ML CUP MUCOUS MEM SCH ×2 (11:20→21:29)
[2019-11-18] MEDS: MAGNESIUM OXIDE 400 MG TAB PO SCH ×2 (11:20→17:47)
[2019-11-18] MEDS: ALLOPURINOL 100 MG TAB PO SCH (11:20)
[2019-11-18] MEDS: SODIUM BICARBONATE TAB 650 MG TAB PO SCH ×3 (11:20→21:28)
[2019-11-18] MEDS: LISINOPRIL 2.5 MG TAB PO SCH (11:21)
[2019-11-18] MEDS: ATORVASTATIN 40 MG TAB PO SCH (11:21)
[2019-11-18] MEDS: METOPROLOL TARTRATE 50 MG TAB PO SCH (11:21)
[2019-11-18 11:26] LABS: Albumin 1.8 g/dL (3.5-5.0); Total Bilirubin 0.6 mg/dL (0.2-1.3); Total Protein 4.6 g/dL (6.3-8.2)
[2019-11-18] MEDS: POTASSIUM BICARBONATE/CIT AC 20 MEQ TABLET.EFF NG-TUBE SCH ×2 (11:44→12:46)
[2019-11-18] MEDS: ASPIRIN 81 MG PO SCH (12:45)
[2019-11-18] MEDS ORDERED: SODIUM CHLORIDE 0.9% 1,000 ML IV ONE (14:07)
[2019-11-18] MEDS: CLOPIDOGREL 75 MG TAB PO SCH (14:36)
[2019-11-18 15:10] LABS: Ferritin 916.7 ng/mL (22.0-322.0)
[2019-11-18] MEDS ORDERED: POTASSIUM BICARBONATE/CIT AC 20 MEQ TABLET.EFF NG-TUBE SCH (16:00)
--- NOTE | 2019-11-18 17:51 | P.PN ---
Progress Note - Text Progress Note Date: 11/18/19 Chief Complaint: Decub ulcers History of presenting complaint: This is a pleasant [address] 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 Patient was just in the hospital from November 05 through November 11. With GI bleed. EGD was unremarkable. Patient did do bowel preparation for colonoscopy. Aspirin Plavix was resumed. Eliquis was held. Patient seen by the wound care nurse Nicole on the last admission. Outpatient follow-up recommended. -patient was seen by Dr. Zeng. He felt that the sacral decub also needs to be debrided. As the patient being sent down. Patient has occasional cough which is chronic. No shortness of breath. No fever or chills. Appetite is good. Admitted with-advancing decub's. Also came back showing C. diff colitis. Patient also became hypotensive and hypothermic. Given a warming blanket. Today-. Today patient became more hypotensive into respiratory distress. Drop in pulse ox. Patient is intubated and moved to the ICU. Currently on the ventilator. FiO2 50% and PEEP of 5. Drips include IV propofol and IV norepinephrine. Patient has a bARE hugger Review of systems: Patient intubated Active Medications Acetaminophen (Tylenol Tab) 650 mg PO Q6HR PRN PRN Reason: Mild Pain or Fever > 100.5 Acetaminophen (Tylenol Tab) 650 mg PO Q6HR PRN PRN Reason: Fever and/ or Pain Allopurinol (Zyloprim) 100 mg PO DAILY@0800 [facility] Last Admin: 11/18/19 11:20 Dose: 100 mg Documented by: Aspirin (Aspirin) 81 mg PO DAILY@0800 [facility] Last Admin: 11/18/19 12:45 Dose: 81 mg Documented by: Atorvastatin Calcium (Lipitor) 40 mg PO DAILY [facility] Last Admin: 11/18/19 11:21 Dose: 40 mg Documented by: Bisacodyl (Dulcolax) 10 mg RECTAL DAILY PRN PRN Reason: Constipation Chlorhexidine Gluconate (Peridex) 15 ml MUCOUS MEM BID [facility] Last Admin: 11/18/19 11:20 Dose: 15 ml Documented by: Cholestyramine Resin (Questran) 4 gm PO PC-TID PRN PRN Reason: Diarrhea Clopidogrel Bisulfate (Plavix) 75 mg PO DAILY@0800 [facility] Last Admin: 11/18/19 14:36 Dose: 75 mg Documented by: Ferrous Sulfate (Feosol) 325 mg PO AC-TID [facility] Last Admin: 11/18/19 11:20 Dose: 325 mg Documented by: Fluoxetine HCl (Prozac) 20 mg PO DAILY@0800 [facility] Last Admin: 11/18/19 11:19 Dose: 20 mg Documented by: Furosemide (Lasix) 40 mg PO DAILY@0800 [facility] Last Admin: 11/18/19 11:20 Dose: Not Given Documented by: Sodium Chloride (Saline 0.9%) 1,000 mls @ 120 mls/hr IV .Q8H20M [facility] Last Admin: 11/18/19 17:34 Dose: 120 mls/hr Documented by: Cefepime HCl 2 gm/ Sodium (Chloride) 100 mls @ 200 mls/hr IVPB Q12HR [facility] Last Admin: 11/18/19 10:29 Dose: 200 mls/hr Documented by: Metronidazole 500 mg/ IV (Solution) 100 mls @ 100 mls/hr IVPB Q8HR [facility] Last Admin: 11/18/19 16:58 Dose: 100 mls/hr Documented by: Norepinephrine Bitartrate 4 mg (/ Sodium Chloride) 254 mls @ 17.214 mls/hr IV .Q14F20C [facility]; Protocol Last Admin: 11/18/19 05:26 Dose: 0.05 mcg/kg/min, 17.214 mls/hr Documented by: Propofol 1,000 mg/ IV Solution 100 mls @ 0 mls/hr IV .Q0M [facility]; Protocol Last Admin: 11/18/19 17:00 Dose: 40 mcg/kg/min, 21.686 mls/hr Documented by: Levothyroxine Sodium (Synthroid) 25 mcg PO DAILY@0630 [facility] Last Admin: 11/18/19 08:35 Dose: Not Given Documented by: Lisinopril (Zestril) 2.5 mg PO DAILY@0800 [facility] Last Admin: 11/18/19 11:21 Dose: Not Given Documented by: Magnesium Hydroxide (Milk Of Magnesia) 2,400 mg PO Q48H PRN PRN Reason: Constipation Magnesium Oxide (Mag-Ox) 400 mg PO BID@0800,1700 [facility] Last Admin: 11/18/19 11:20 Dose: 400 mg Documented by: Naloxone HCl (Narcan) 0.2 mg IV Q2M PRN PRN Reason: Opioid Reversal Quetiapine Fumarate (Seroquel) 25 mg PO HS@2100 [facility] Last Admin: 11/17/19 20:11 Dose: Not Given Documented by: Sodium Bicarbonate (Sodium Bicarbonate Tab) 650 mg PO TID [facility] Last Admin: 11/18/19 16:58 Dose: 650 mg Documented by: Sodium Biphosphate/Sodium Phosphate (Fleet Adult) 133 ml RECTAL DAILY PRN PRN Reason: Constipation Vancomycin HCl (Vancomycin Oral Solution) 250 mg PO Q6HR [facility] Last Admin: 11/18/19 12:48 Dose: 250 mg Documented by: On examination: VITAL SIGNS: 94.3, 56, 20, 99/33, melena 9% on the ventilator GENERAL APPEARANCE: Laying in bed, sedated, intubated HEENT: Normal external appearance of nose and ear. ET tube EYES: Pupils equal. Conjunctiva pale NECK: JVD not raised. Mass not palpable. RESPIRATORY: Respiratory effort increased. Decreased breath sounds CARDIOVASCULAR: First and second sounds normal. No edema. ABDOMEN: Soft. Liver and spleen not palpable. No tenderness. No mass palpable. Has a Beaulieu catheter. DERMATOLOGICAL: Multiple decubitus ulcers see nursing note PSYCHIATRY: Patient intubated and unable to assess EXTREMITY:. Left above-knee amputation. INVESTIGATIONS, reviewed in the clinical context: White count 13.8 hemoglobin 7.3 ABG-pH 7.23 pCO2 31 pO2 332 Potassium 3.3 bicarb 13 bun 35 creatinine 1.46 Chest x-ray film personally reviewed by [id number] opacification of left side Previous testing White count 11 hemoglobin 6.9 platelets 310 progression 3.9 creatinine 1 troponin I 0.123 Coronavirus PCR not detected Phones at type A type B both negative UA positive for leukoesterase WBC. Stool-positive for C. diff Urine culture-Pseudomonas aeruginosa Assessment: -Acute hypoxic respiratory failure probably from pneumonia, possible aspiration requiring intubation/ventilation.- -Suspect left-sided pneumonia, possible aspiration -Acute C. diff colitis-slow to respond -Acute UTI from cystitis from pseudomonas aeruginosa secondary to Beaulieu catheter -Left gluteus unstageable ulcer, right gluteus also stage II lower extremity second digit ulcer -Recent hospital admission for Acute GI bleed-EGD unremarkable, patient refused colonoscopy preparation -Hypothermia Slow to respond -nonsustained V. tach -Persistent atrial fibrillation on Eliquis at home, currently held -coronary artery disease status post stent placement in RCA and LAD was on Plavix -Diabetes mellitus -Hypothyroid -Chronic kidney disease stage II secondary to diabetes mellitus -Essential Hypertension, currently hypotension-new diagnosis -coronary artery disease -Benign prostatic hypertrophy -Peripheral artery disease -Left above-knee amputation - anxiety and depression, -Troponin leak due hemodynamic mismatch -Severe protein malnutrition-BMI 15.1 -Metabolic acidosis Plan: Patient on IV cefepime, IV Flagyl, levo fed, propofol, by mouth vancomycin. Intubated. In the ICU. Prognosis guarded. Being followed by basket turner, ID, Gen. surgery
[2019-11-18 18:03] LABS: Glucose,Whole Blood 103 mg/dL (75-99)
--- NOTE | 2019-11-18 20:10 | CONS ---
CONSULTATION PULMONARY/CRITICAL CARE CONSULTATION: DATE OF SERVICE: 11/18/2019 This is a 64-year-old white male who was admitted back on November 12. He initially came in apparently from the long-term because of extensive ulcers and skin infections. Apparently last night the patient developed acute respiratory distress and required intubation and mechanical ventilation. We were told about the patient this morning. Apparently this intubation occurred about 5:30 this morning. Anyway, the patient is currently in the ICU. The patient is on the volume assist-control mode, rate of 16, tidal volume 450, FiO2 100%, PEEP of 5. Gases showed a pO2 of 322, pCO2 of 31, and a pH of 7.23. The FiO2 was dropped down from 100% to 50%. The patient is on saline at 120 mL/hour. He is getting Levophed at 10 mcg/minute and propofol at 50 mcg/kg per minute. He was COVID negative, but it was an older test since he was C difficile positive. I did speak to the family member making medical decisions, a [place] person who actually is my patient, and the patient is apparently a FULL CODE. He did have a right radial art line placed in the right femoral vein, triple-lumen catheter placed in addition. In the process of manipulating him, there was a failure of the previous endotracheal tube and he needed re-intubation. Currently he is on the ventilator, sedated on propofol at 50 mcg/kg per minute. HOME MEDICATIONS: Reviewed. He apparently was on Prozac, Synthroid, Zyloprim, Plavix, Zestril, Lopressor, aspirin, Dulcolax, Questran, iron, Lasix, Milk of Magnesia, Mag-Ox, Fleet's enema, omeprazole, Seroquel, Flomax, Tylenol, Lipitor, DuoNeb, nitroglycerin and Mosier. ALLERGIES: DENIED. PAST MEDICAL HISTORY: His past medical history is apparently positive for atrial fibrillation, CAD, COPD, diabetes, GERD, hyperlipidemia, hypertension, myocardial infarction, hypothyroidism and peripheral vascular occlusive disease. Other medical problems include stage III chronic kidney disease, diverticular disease, peripheral artery disease, previous heavy alcohol abuse and anxiety with depression. He also was found to be positive for C difficile. His COVID testing back earlier was negative. SURGICAL HISTORY: His surgical history includes cardiac valve replacement, heart catheterization with stent, previous mitral valve replacement, left uxqrf-eop-hgmd amputation, and a previous endarterectomy and femoral-popliteal bypass. SOCIAL HISTORY: Positive for previous tobacco use. He drinks occasionally. He apparently does use marijuana. FAMILY HISTORY: Positive for mother with diabetes and deep venous thrombosis. Father's history is not known. REVIEW OF SYSTEMS: Review of systems could not be obtained. The patient is currently intubated and mechanically ventilated. PHYSICAL EXAMINATION: VITAL SIGNS: Current vital signs are reviewed. Temperature is 94.3, heart rate 56, respiratory rate 18, blood pressure 106/39. Saturations are 100% on 50% FiO2. GENERAL APPEARANCE: He appears in no acute distress. HEENT: Examination is grossly unremarkable. The patient is currently sedated on propofol. Levophed is running at 10 mcg/minute. There is an orally placed endotracheal tube and NG tube. NECK: Supple. Full range of motion. No adenopathy. Neck veins are flat. CARDIOVASCULAR: Examination reveals regular rhythm and rate. Heart rate about 60 beats per minute. S1, S2 normal. LUNGS: A few scattered rhonchi. No wheezes or crackles. ABDOMEN: Scaphoid. Bowel sounds are noted. EXTREMITIES: Intact. There is an ivwzr-wyg-ksml amputation. LABS/IMAGING: Reviewed. White count 17.3, hemoglobin 7.2, hematocrit 24.7, platelet count 242,000. D-dimer 22.73. PO2 is 322, pCO2 is 31, pH is 7.23. This was on 100%. Sodium 145, potassium 3.3, chloride 124, CO2 13. Anion gap is 8. BUN and creatinine were 35 and 1.46. Calcium is 8. AST is 67. LDH 1047. C-reactive protein 190.9, albumin 1.8. A chest ultrasound was done. It showed a small left pleural effusion. Chest x-ray shows complete opacification of the left hemithorax. C difficile testing was positive. Zee virus testing by PCR was negative; that was back on November 12. Microbiology is showing Pseudomonas aeruginosa in the urine. CURRENT MEDICATIONS: Reviewed. He is currently on Tylenol, albuterol inhaler, Zyloprim, aspirin, Lipitor, Dulcolax, cefepime, chlorhexidine, Questran, Plavix, iron, Prozac, Lasix, Mosier, Synthroid, lisinopril, Mag-Ox, metoprolol, Flagyl, Fleets adult rectal suppository, Narcan, nitroglycerin tablets, norepinephrine, propofol, Seroquel, sodium bicarbonate tablets, Flomax and oral vancomycin. ASSESSMENT: 1. Hypoxemic respiratory failure with intubation early in the morning on November 17, likely related to left lung opacification, possible pneumonia and left-sided pleural effusion. 2. History of Clostridium difficile colitis. 3. COVID-19 negative from a prior test. 4. History of atrial fibrillation. 5. History of coronary artery disease. 6. History of chronic obstructive pulmonary disease. 7. Diabetes mellitus. 8. Gastroesophageal reflux disease. 9. Hyperlipidemia. 10.History of hypertension. 11.Myocardial infarction. 12.Hypothyroidism. 13.Peripheral artery disease. 14.Diverticular disease. 15.Chronic kidney disease. 16.Anxiety/depression. 17.Past history of alcohol abuse. 18.History of mitral valve replacement. 19.Status post cardiac catheterization with stent. 20.Status post left cifum-leq-mhmm amputation. PLAN: Please see my orders. Unnecessary medications were discontinued. Because he is on Levophed, any medications that might cause his blood pressure to drop were discontinued as well. The FiO2 was tapered back to 50%. Tube feeds will be started. Additional recommendations and suggestions are forthcoming. I did speak to a family member by the name of Mya Maradiaga, who is actually my patient, who stated that Mr. Reddy Maradiaga is FULL CODE at this time. Additional recommendations and suggestions are forthcoming. He had a right radial art line placed. He had a right femoral triple- lumen catheter placed. He was re-intubated because of failure of the prior endotracheal tube. MMODL / IJN: [id number] /
--- NOTE | 2019-11-18 22:04 | PN ---
PROGRESS NOTE DATE OF SERVICE: 11/18/2019 REASON FOR FOLLOWUP: Infected left gluteal pressure ulcer, UTI, possible pneumonia. C difficile colitis. INTERVAL HISTORY: Patient did have significant change in his clinical condition. He was noticed to be hypothermic, hypertensive and subsequently transferred down to ICU. Patient getting intubated, currently on the vent. FiO2 is down to 50%. Have low-dose pressor support. No significant purulent secretions through the ET. Overall diarrhea seemed to have slowed down. PHYSICAL EXAMINATION: Blood pressure 115/88 with a pulse of 58. Temperature is 97.1. He is 100% on 50% FiO2. General description is a middle-aged male lying in bed in no distress. Respiratory system: Unlabored breathing. Decreased breath sounds in the bases. No wheeze. HEART: S1, S2. Regular rate and rhythm. ABDOMEN: Soft. No tenderness. LAB: Hemoglobin 10.1, white count 17.3, BUN of 35, creatinine 1.46. DIAGNOSTIC IMPRESSION/PLAN: 1. The patient with acute respiratory failure which is likely multifactorial, possible component of pneumonia. This patient did have infected left gluteal pressure ulcer. 2. Urinary tract infection. 3. The patient is currently covered with cefepime and Flagyl. To continue. 4. C difficile colitis. The patient is tolerating his tube feeds. Vancomycin down the OG tube will be restarted. 5. We will monitor clinical course closely. MMODL / IJN: [id number] /
--- NOTE | 2019-11-18 22:51 | PCN ---
PROCEDURE NOTE PROCEDURE PERFORMED: Right femoral vein triple-lumen catheter. PREOP DIAGNOSIS: Administration of fluids and pressors. POSTOP DIAGNOSIS: Administration of fluids and pressors. OPERATORS: Dr. Jones and Dr. Burciaga and Miryam Rizzo TRIPLE LUMEN CATHETER PLACEMENT: Indication: Hemodynamic monitoring/Intravenous access. A time-out was completed verifying correct patient, procedure, site, positioning, and implant(s) or special equipment if applicable. The patient was placed in a dependent position appropriate for triple lumen catheter placement based on the vein to be cannulated. The patient's right groin was prepped and draped in sterile fashion. 1% Lidocaine was used to anesthetize the surrounding skin area. A triple lumen 9F Cordis catheter was introduced into the common femoral vein using Seldinger technique. The catheter was threaded smoothly over the guide wire and appropriate blood return was obtained. Each lumen of the catheter was evacuated of air and flushed with sterile saline. The catheter was then sutured in place to the skin and a sterile dressing applied. Perfusion to the extremity distal to the point of catheter insertion was checked and found to be adequate. There was no immediate complication. The right femoral site was employed. We did a right femoral vein triple-lumen catheter. The patient tolerated the procedure well. There was good blood return. There was good blood return from all 3 ports. The catheter was sutured in place. A sterile dressing was applied by the nurse. The operators were Dr. Jones, Dr. Burciaga and Miryam Rizzo. There was informed consent. There was universal timeout. The catheter was sutured in place and a sterile dressing was applied by the nurse. There was no need for a chest x-ray because of where the catheter was inserted. MMODL / IJN: [id number] /
--- NOTE | 2019-11-18 22:51 | PCN ---
PROCEDURE NOTE PROCEDURE PERFORMED: Right radial art line. OPERATORS: Dr. Jones and Dr. Gualberto Gray. PREOP DIAGNOSES: Frequent blood draws and blood gas monitoring. POSTOP DIAGNOSES: Frequent blood draws and blood gas monitoring. There was informed consent and universal timeout. ARTERIAL LINE PLACEMENT: Indications: Hemodynamic monitoring. A time-out was completed verifying correct patient, procedure, site, positioning, and implant(s) or special equipment if applicable. Cuong's test was performed to ensure adequate perfusion. The patient's right wrist was prepped and draped in sterile fashion. 1% Lidocaine was used to anesthetize the area. An 18G Arrow arterial line was introduced into the radial artery. The catheter was threaded over the guide wire and the needle was removed with appropriate pulsatile blood return. Blood loss was minimal. The catheter was then sutured in place to the skin and a sterile dressing applied. Perfusion to the extremity distal to the point of catheter insertion was checked and found to be adequate. The patient tolerated the procedure well and there were no complications. Right radial arterial site was used. There was no immediate complication. There was good blood return and waveform. The catheter was sutured in place. Sterile dressing was applied by the nurse. There was no immediate complication. The catheter worked very well right from the beginning. MMODL / IJN: [id number] /
--- NOTE | 2019-11-18 22:59 | PCN ---
PROCEDURE NOTE PROCEDURE PERFORMED: Emergent intubation. PREOP DIAGNOSIS: Failed endotracheal tube. POSTOP DIAGNOSIS: Failed endotracheal tube. DESCRIPTION OF PROCEDURE: This was an emergency procedure. The endotracheal tube was nonfunctional as the balloon was not holding any air. The patient was not getting back volume and his saturations are dropping. With a #3 Michael blade on a standard laryngoscope, I was able to successfully pass a #8 endotracheal tube into the glottic opening. There was good color change on the qualitative CO2 monitor. There was good bilateral breath sounds. The endotracheal tube was taped at the previous spot on the lip at 22 cm. A chest x-ray was ordered. There was good placement of the tube. The patient tolerated the procedure well. There was good bilateral breath sounds. The patient was reconnected to the mechanical ventilator. SOLO / ABRAHAMN: [id number] /
[2019-11-18] MEDS: QUEtiapine 25 MG TAB PO SCH (23:15)
[2019-11-19 00:17] LABS: Glucose,Whole Blood 109 mg/dL (75-99)
[2019-11-19] MEDS: PROPOFOL 1,000 MG in EMPTY BAG 1 BAG IV SCH ×4 (02:32→21:02)
[2019-11-19 04:45] LABS: Anisocytosis Slight; Basophils % (A) 0 %; Eosinophils # (A) 0.4 k/uL (0-0.7); Eosinophils % (A) 3 %; HCT 21.7 % (39.0-53.0); Hypochromasia Marked; Lymphocytes # (A) 1.4 k/uL (1.0-4.8); Lymphocytes % (A) 12 %; MCH 25.7 pg (25.0-35.0); MCHC 29.5 g/dL (31.0-37.0); Mean Platelet Volume 9.6; Monocytes # (A) 0.3 k/uL (0-1.0); Monocytes % (A) 3 %; Neutrophils # (A) 9.6 k/uL (1.3-7.7); Neutrophils % (A) 80 %; Platelet Count 203 k/uL (150-450); Poikilocytosis Slight; RDW 17.9 % (11.5-15.5)
[2019-11-19 04:47] LABS: Calcium 7.6 mg/dL (8.4-10.2); Potassium 3.4 mmol/L (3.5-5.1)
[2019-11-19 04:53] LABS: HGB 6.4 gm/dL (13.0-17.5)
[2019-11-19 05:14] LABS: ABG Base Excess -12.2 mmol/L; ABG HCO3 14 mmol/L (21-25); ABG Oxygen Saturation 99.5 % (94-97); ABG PCO2 27 mmHg (35-45); ABG PH 7.32 (7.35-7.45); ABG PO2 157 mmHg (83-108); ABG TCO2 15 mmol/L (19-24); Allen Test Performed? Yes
[2019-11-19 06:54] LABS: Glucose,Whole Blood 104 mg/dL (75-99)
[2019-11-19] MEDS: FERROUS SULFATE 325 MG TAB PO SCH ×3 (06:58→17:00)
[2019-11-19] MEDS: POTASSIUM BICARBONATE/CIT AC 20 MEQ TABLET.EFF NG-TUBE SCH ×2 (06:58→08:47)
[2019-11-19] MEDS: LEVOTHYROXINE 25 MCG TAB PO SCH (06:58)
[2019-11-19] MEDS: VANCOMYCIN ORAL SOLUTION 250 MG/5 ML BOTTLE PO SCH ×3 (06:58→17:00)
[2019-11-19] MEDS: NOREPINEPHRINE 4 MG in SODIUM CHLORIDE 0.9% 250 ML IV SCH ×3 (07:04→21:01)
--- NOTE | 2019-11-19 07:20 | XR ---
EXAMINATION TYPE: XR chest 1V portable DATE OF EXAM: 11/19/2019 COMPARISON: 11/18/2019 HISTORY: Shortness of breath TECHNIQUE: Single frontal view of the chest is obtained. FINDINGS: ET and NG tube noted. Postsurgical changes are seen. Tip of the NG tube appears to be at t he GE junction correlate for position. Diffuse interstitial pattern with bilateral consolidation and pleural effusion. Suspected large left pleural effusion with slightly increased. Aeration involving t he left upper lobe. IMPRESSION: 1. There is mild improvement in left upper lobe with persistent extensive underlying consolidation merchant spected pleural effusion. Correlate for CHF pulmonary edema versus underlying diffuse pneumonia or AR DS.
--- NOTE | 2019-11-19 08:10 | CDI ---
Documentation Clarification Form Date: 11/19/2019 07:53:44 AM From: Lotus Urena CCS, CCDS Admit Date: 11/13/2019 04:27:00 PM Patient Name: Reddy Maradiaga Visit Number: [id number] Discharge Date: ATTENTION: The Clinical Documentation Specialists (CDI) and [facility] Coding Staff appreciate your assistance in clarifying documentation. Please respond to the clarification below the line at the bottom and electronically sign. The CDI & [facility] Coding staff will review the response and follow-up if needed. Please note: Queries are made part of the Legal Health Record. If you have any questions, please contact the author of this message via ITS. Dr. Federico Alston: Per the 11/12 ED note: "Patient is discharged yesterday from this facility for GI bleed, acute blood loss anemia, gluteal ulcers. Clinical Impression: Pressure ulcer, Pneumonia, Atrial fibrillation, Anemia." Patient's hemoglobin remains low without further specificity documented. History/Risk Factors: Atrial Fibrillation on Eliquis, CAD on Plavix, DM II with nephropathy & PAD, COPD, CKD Stage II. Clinical indicators: Presented to the ED on 11/12 with the above diagnoses from a [place] [facility], also has multiple ulcers & skin infections. Admitted for a catheter related UTI & multiple pressure & skin ulcers, severe protein calorie malnutrition, persistent atrial fibrillation & C Diff colitis. Abnormal Labs 11/12 Hgb 6.9; 11/13: 7.6*; 11/15: 8/6*; 11/17: 7.3*; 11/17: 7.2*; 11/18: 6.4. Treatment: Received 1 unit PRBCs on 11/12. IV fluid 500 mls@1000 mls/hr, IV Protonix, IV Vancomycin, I Cefepime, PO Feosol started 11/13. IV Flagyl, IV Lasix. Intubated on 11/17 for acute respiratory failure. Clinical significance of diagnostic testing and treatment CANNOT be assumed or coded without physician documentation of significance if any. Please clarify what abnormal laboratory signifies: Low Hemoglobin specified as: ; Due to: Unable to determine Other, please specify (Last Revision: May 2017) Anemia of chronic kidney disease MTDD
[2019-11-19] MEDS: SODIUM CHLORIDE 0.9% 1,000 ML IV SCH (08:33)
[2019-11-19] MEDS: LISINOPRIL 2.5 MG TAB PO SCH (08:34)
[2019-11-19] MEDS: FLUoxetine HCL 20 MG CAP PO SCH (08:36)
[2019-11-19] MEDS: ASPIRIN 81 MG PO SCH (08:36)
[2019-11-19] MEDS: CLOPIDOGREL 75 MG TAB PO SCH (08:36)
[2019-11-19] MEDS: ATORVASTATIN 40 MG TAB PO SCH (08:36)
[2019-11-19] MEDS: MAGNESIUM OXIDE 400 MG TAB PO SCH ×2 (08:36→17:00)
[2019-11-19] MEDS: SODIUM BICARBONATE TAB 650 MG TAB PO SCH ×3 (08:36→20:35)
[2019-11-19] MEDS: ALLOPURINOL 100 MG TAB PO SCH (08:36)
[2019-11-19] MEDS: SODIUM CHLORIDE 0.45% 1,000 ML IV SCH (08:37)
[2019-11-19] MEDS: metroNIDAZOLE-NS PMX 500 MG in SALINE 1 100ML.BAG IVPB SCH ×2 (08:37→17:00)
[2019-11-19] MEDS: CEFEPIME 2 GM in SODIUM CHLORIDE 0.9% 100 ML IVPB SCH ×2 (08:38→20:37)
[2019-11-19] MEDS: CHLORHEXIDINE GLUCONATE 15 ML CUP MUCOUS MEM SCH ×2 (08:38→20:35)
[2019-11-19] MEDS ORDERED: FUROSEMIDE 10 MG/ML 4 ML VIAL IV STA (08:41)
[2019-11-19] MEDS: FUROSEMIDE 40 MG TAB PO SCH (08:41)
[2019-11-19 09:02] LABS: Albumin 1.5 g/dL (3.5-5.0); Total Bilirubin 0.5 mg/dL (0.2-1.3); Total Protein 4.3 g/dL (6.3-8.2)
[2019-11-19 12:18] LABS: Glucose,Whole Blood 119 mg/dL (75-99)
--- NOTE | 2019-11-19 13:10 | PN ---
PROGRESS NOTE DATE OF SERVICE: 11/19/2019 Critical care time more than 30 minutes. This is a 64-year-old black male who was admitted on November 12. He initially came in from the care home because of extensive ulcers and skin infection. The patient developed acute respiratory failure with hypoxemia a couple nights ago and required intubation and mechanical ventilation. The patient was intubated maybe 5:30 yesterday morning. Anyway, the patient was moved into to the ICU. He remains on the mechanical ventilator. His vent settings include a volume assist-control mode rate of 16, tidal volume 450, FiO2 of 40%, PEEP of 5. He is receiving 0.9 at 120 mL an hour, Levophed at 10 mcg/minute and Diprivan at 40 mcg/kg per minute. His rhythm is that of atrial fibrillation. The patient's blood gases showed a PO2 of 157, pCO2 of 27, and pH of 7.32. Blood gases are consistent with a metabolic acidosis. We are going to change his IVs down to 0.45 at 50 mL an hour. His chest x-ray is improved. The patient will receive 1 unit of PRBCs for hemoglobin of 6.4. The patient was found to have Pseudomonas in the urine and he is currently on cefepime. The Pseudomonas is sensitive to cefepime. Will need to start the patient on tube feeds as he is currently not on any. It should also be pointed that the patient was tested for COVID infection back on March 14 and it was negative. I felt it was important as Dr. Rico, Infectious Disease and Dr. Alston in Hospital Medicine to recheck the patient. Initially, we were denied this request by the administration. I did talk to Dr. Frost about this. My partners and the other hospital physicians feel that it would be important not to give Mr. Maradiaga the standard treatments for COVID infection, if in fact, he is truly negative. Anyway, I did reorder a rapid test for COVID-19 infection. That is the reverse transcriptase polymerase chain reaction test. We did place a right radial art line and a right femoral vein triple-lumen catheter yesterday. We also had to do re-intubation yesterday. Current vital signs are reviewed. His temperature is 97.9, heart rate 85, respiratory rate 19, blood pressure 133/42, saturations are between 89% and 95%. Appears in no acute distress. Currently sedated on propofol at 40 mcg/kg per minute. HEENT: Examination is grossly unremarkable. There is an orally placed endotracheal tube and NG tube. NECK: Supple, full range of motion. No adenopathy or thyromegaly. Neck veins are flat. CARDIOVASCULAR: Examination reveals regular rhythm and rate. Heart rate in the mid 80s. S1, S2 normal. HEART: Sounds distant. LUNGS: Reveal diffuse coarse, bilateral rhonchi. Breath sounds are equal. No crackles or wheezes. ABDOMEN: Soft. No bowel sounds are noted. EXTREMITIES Intact. He does have a left AKA. SKIN: Without rash. NEUROLOGIC: Examination is difficult to assess given his current level of sedation. LABS: Reviewed. White count 12, hemoglobin 6.4, hematocrit 21.7, platelet count 203,000. Blood gases show a pO2 of 157, pCO2 of 27, pH of 7.32. The appropriate FiO2 change was instituted. Sodium 144, potassium 3.4, chloride 125, CO2 of 13. Anion gap is 6. BUN and creatinine were 36 and 1.70. LDH was 1060. CK was 271. C-reactive protein was 199. His C diff testing was positive. That was on November 14, 2019. Chest x-ray today reveals persistent extensive areas of consolidation with effusion. This could relate to underlying CHF, a standard pneumonia or COVID-19 induced ARDS. Microbiology shows urine that was positive for Pseudomonas, which is sensitive to cefepime. Blood cultures are negative. Medications are reviewed. They all are appropriate. ASSESSMENT: 1. Hypoxemic respiratory failure, with intubation early in the morning of November 17, related to underlying left lung opacification, likely from pneumonia. Pleural effusion on that side is relatively small. 2. History of Clostridium difficile colitis. 3. COVID-19 negative for a prior test. 4. History of atrial fibrillation. 5. History of coronary artery disease. 6. History of chronic obstructive pulmonary disease. 7. Diabetes mellitus. 8. Gastroesophageal reflux disease. 9. Hyperlipidemia. 10.Benign essential hypertension. 11.History of myocardial infarction. 12.Hypothyroidism. 13.Peripheral artery disease. 14.Diverticular disease. 15.Chronic kidney disease. 16.Anxiety/depression. 17.Past history of alcohol abuse. 18.History of mitral valve replacement. 19.Status post cardiac catheterization with stent. 20.Status post left AKA. PLAN: I went ahead and reordered the COVID-19 rapid test today. The administration Apparently was against us repeating the test. Obviously, they are concerned about the resources. I think in his case, it is important to know whether or not he is truly positive or not. He is not necessarily behaving that way. In addition, I think he would be a considerable risk with his multitude of medical problems, to be placed on Plaquenil, azithromycin, corticosteroid, enoxaparin, and other medications. Certainly, there is a risk for QT prolongation as well as bleeding risk and hyperglycemia from corticosteroids. Additional recommendations and suggestions forthcoming. Prognosis is guarded. Will continue to follow closely. I did speak to the family member, Joel Maradiaga, who stated that the patient would want to be a FULL CODE. Additional recommendations and suggestions are forthcoming. SOLO / MYRA: [id number] /
--- NOTE | 2019-11-19 14:27 | P.PN ---
Subjective Progress Note Date: 11/19/19 CHIEF COMPLAINT: Left gluteal decubitus ulcer HISTORY OF PRESENT ILLNESS: Patient examined in the intensive care unit with Dr. Nation. He remains on mechanical ventilation. WBC 12.0. Hemoglobin 6.4. PHYSICAL EXAM: VITAL SIGNS: Reviewed. GENERAL: Well-developed in no acute distress. HEENT: ET tube noted. No sclera icterus. Extraocular movements grossly intact. Moist buccal mucosa. Head is atraumatic, normocephalic. ABDOMEN: Soft. Nondistended. Nontender. NEUROLOGIC: Not thoroughly examined ASSESSMENT: 1. Left gluteal decubitus ulcer PLAN: -Patient will undergo debridement of decubitus ulcer when he is medically stable -Continue local wound care Nurse practitioner note has been reviewed by physician. Signing provider agrees with the documented findings, assessment, and plan of care. Objective - Vital Signs Vital signs: Vital Signs Temp 97.7 F 11/19/19 12:00 Pulse 102 H 11/19/19 13:00 Resp 16 11/19/19 13:00 BP 102/47 11/19/19 00:00 Pulse Ox 96 11/19/19 13:00 Intake & Output 11/18/19 11/19/19 11/19/19 18:59 06:59 18:59 Intake Total 2626.744 2101.789 1469.810 Output Total 625 860 575 Balance 2001.744 1241.789 894.810 Weight 90.36 kg 90.36 kg Intake: IV 1000 1540 708 Cefepime 2 gm In Sodium 100 Chloride 0.9% 100 ml @ 200 mls/hr IVPB Q12HR [facility] Rx#:[id number] Pressure bag 18 Sodium Chloride 0.45% 1, 250 000 ml @ 50 mls/hr IV . Q20H AJ Rx#:[id number] Sodium Chloride 0.9% 1, 1000 1440 240 000 ml @ 120 mls/hr IV . Q8H20M [facility] Rx#:[id number] metroNIDAZOLE-NS PMX 500 100 100 mg In Saline 1 100ml.bag @ 100 mls/hr IVPB Q8HR AJ Rx#:[id number] Intake, IV Titration 1626.744 561.789 691.810 Amount Cefepime 2 gm In Sodium 100 100 Chloride 0.9% 100 ml @ 200 mls/hr IVPB Q12HR [facility] Rx#:[id number] Norepinephrine 4 mg In 262.033 465.280 Sodium Chloride 0.9% 250 ml @ 0.05 MCG/KG/MIN 17. 214 mls/hr IV .[id number] [facility] Rx#:[id number] Propofol 1,000 mg In 186.744 199.756 226.530 Empty Bag 1 bag @ Titrate IV .Q0M AJ Rx#: [id number] Sodium Chloride 0.9% 1, 140 000 ml @ 120 mls/hr IV . Q8H20M [facility] Rx#:[id number] Sodium Chloride 0.9% 1, 1000 000 ml @ 999 mls/hr IV . Q1H1M [facility] Rx#:[id number] metroNIDAZOLE-NS PMX 500 200 mg In Saline 1 100ml.bag @ 100 mls/hr IVPB Q8HR [facility] Rx#:[id number] Tube Feeding 40 Other 30 Output: Urine 625 860 575 Other: Voiding Method Indwelling Catheter Indwelling Catheter Indwelling Catheter ABP, PAP, CO, CI - Last Documented Arterial Blood Pressure 114/38 - Labs CBC & Chem 7: 11/19/19 04:00 11/19/19 04:00 Labs: Abnormal Lab Results - Last 24 Hours (Table) 11/18/19 11/18/19 11/19/19 Range/Units 09:58 18:00 00:16 WBC (3.8-10.6) k/uL RBC (4.30-5.90) m/uL Hgb (13.0-17.5) gm/dL Hct (39.0-53.0) % MCHC (31.0-37.0) g/dL RDW (11.5-15.5) % Neutrophils # (1.3-7.7) k/uL ABG pH (7.35-7.45) ABG pCO2 (35-45) mmHg ABG pO2 (83-108) mmHg ABG HCO3 (21-25) mmol/L ABG Total CO2 (19-24) mmol/L ABG O2 Saturation (94-97) % Potassium (3.5-5.1) mmol/L Chloride (98-107) mmol/L Carbon Dioxide (22-30) mmol/L BUN (9-20) mg/dL Creatinine (0.66-1.25) mg/dL POC Glucose (mg/dL) 103 H 109 H (75-99) mg/dL Calcium (8.4-10.2) mg/dL Ferritin 916.7 H (22.0-322.0) ng/mL Lactate Dehydrogenase (313-618) U/L Creatine Kinase (55-170) U/L C-Reactive Protein (<10.0) mg/L Total Protein (6.3-8.2) g/dL Albumin (3.5-5.0) g/dL Crossmatch 11/19/19 11/19/19 11/19/19 Range/Units 04:00 04:00 05:10 WBC 12.0 H (3.8-10.6) k/uL RBC 2.50 L (4.30-5.90) m/uL Hgb 6.4 L* (13.0-17.5) gm/dL Hct 21.7 L (39.0-53.0) % MCHC 29.5 L (31.0-37.0) g/dL RDW 17.9 H (11.5-15.5) % Neutrophils # 9.6 H (1.3-7.7) k/uL ABG pH 7.32 L (7.35-7.45) ABG pCO2 27 L (35-45) mmHg ABG pO2 157 H (83-108) mmHg ABG HCO3 14 L (21-25) mmol/L ABG Total CO2 15 L (19-24) mmol/L ABG O2 Saturation 99.5 H (94-97) % Potassium 3.4 L (3.5-5.1) mmol/L Chloride 125 H (98-107) mmol/L Carbon Dioxide 13 L (22-30) mmol/L BUN 36 H (9-20) mg/dL Creatinine 1.70 H (0.66-1.25) mg/dL POC Glucose (mg/dL) (75-99) mg/dL Calcium 7.6 L (8.4-10.2) mg/dL Ferritin (22.0-322.0) ng/mL Lactate Dehydrogenase 1060 H (313-618) U/L Creatine Kinase 271 H (55-170) U/L C-Reactive Protein 199.0 H (<10.0) mg/L Total Protein 4.3 L (6.3-8.2) g/dL Albumin 1.5 L (3.5-5.0) g/dL Crossmatch 11/19/19 11/19/19 11/19/19 Range/Units 06:52 12:16 12:48 WBC (3.8-10.6) k/uL RBC (4.30-5.90) m/uL Hgb (13.0-17.5) gm/dL Hct (39.0-53.0) % MCHC (31.0-37.0) g/dL RDW (11.5-15.5) % Neutrophils # (1.3-7.7) k/uL ABG pH (7.35-7.45) ABG pCO2 (35-45) mmHg ABG pO2 (83-108) mmHg ABG HCO3 (21-25) mmol/L ABG Total CO2 (19-24) mmol/L ABG O2 Saturation (94-97) % Potassium (3.5-5.1) mmol/L Chloride (98-107) mmol/L Carbon Dioxide (22-30) mmol/L BUN (9-20) mg/dL Creatinine (0.66-1.25) mg/dL POC Glucose (mg/dL) 104 H 119 H (75-99) mg/dL Calcium (8.4-10.2) mg/dL Ferritin (22.0-322.0) ng/mL Lactate Dehydrogenase (313-618) U/L Creatine Kinase (55-170) U/L C-Reactive Protein (<10.0) mg/L Total Protein (6.3-8.2) g/dL Albumin (3.5-5.0) g/dL Crossmatch See Detail Microbiology - Last 24 Hours (Table) 11/13/19 14:56 Blood Culture - Preliminary Blood No Growth after 120 hours
[2019-11-19 17:21] LABS: Glucose,Whole Blood 95 mg/dL (75-99)
--- NOTE | 2019-11-19 17:31 | P.PN ---
Progress Note - Text Progress Note Date: 11/19/19 Chief Complaint: Decub ulcers History of presenting complaint: This is a pleasant [address] 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 Patient was just in the hospital from November 05 through November 11. With GI bleed. EGD was unremarkable. Patient did do bowel preparation for colonoscopy. Aspirin Plavix was resumed. Eliquis was held. Patient seen by the wound care nurse Nicole on the last admission. Outpatient follow-up recommended. -patient was seen by Dr. Zeng. He felt that the sacral decub also needs to be debrided. As the patient being sent down. Patient has occasional cough which is chronic. No shortness of breath. No fever or chills. Appetite is good. Admitted with-advancing decub's. Also came back showing C. diff colitis. Patient also became hypotensive and hypothermic. Given a warming blanket. Patient became hypotensive and it respiratory distress had to be intubated and moved to ICU. Put on pressor support and IV propofol. Suspected to have left- sided aspiration pneumonia Today-. ICU. Intubated. FiO2 30% PEEP of 5. Admitted to show sinus rhythm. Drips include IV propofol and remove it. Patient did get some thick secretions after given saline. Review of systems: Patient intubated Active Medications Acetaminophen (Tylenol Tab) 650 mg PO Q6HR PRN PRN Reason: Mild Pain or Fever > 100.5 Acetaminophen (Tylenol Tab) 650 mg PO Q6HR PRN PRN Reason: Fever and/ or Pain Allopurinol (Zyloprim) 100 mg PO DAILY@0800 [facility] Last Admin: 11/19/19 08:36 Dose: 100 mg Documented by: Aspirin (Aspirin) 81 mg PO DAILY@0800 [facility] Last Admin: 11/19/19 08:36 Dose: 81 mg Documented by: Atorvastatin Calcium (Lipitor) 40 mg PO DAILY [facility] Last Admin: 11/19/19 08:36 Dose: 40 mg Documented by: Bisacodyl (Dulcolax) 10 mg RECTAL DAILY PRN PRN Reason: Constipation Chlorhexidine Gluconate (Peridex) 15 ml MUCOUS MEM BID [facility] Last Admin: 11/19/19 08:38 Dose: 15 ml Documented by: Cholestyramine Resin (Questran) 4 gm PO PC-TID PRN PRN Reason: Diarrhea Clopidogrel Bisulfate (Plavix) 75 mg PO DAILY@0800 [facility] Last Admin: 11/19/19 08:36 Dose: 75 mg Documented by: Ferrous Sulfate (Feosol) 325 mg PO AC-TID [facility] Last Admin: 11/19/19 17:00 Dose: 325 mg Documented by: Fluoxetine HCl (Prozac) 20 mg PO DAILY@0800 [facility] Last Admin: 11/19/19 08:36 Dose: 20 mg Documented by: Furosemide (Lasix) 40 mg PO DAILY@0800 [facility] Last Admin: 11/19/19 08:41 Dose: Not Given Documented by: Cefepime HCl 2 gm/ Sodium (Chloride) 100 mls @ 200 mls/hr IVPB Q12HR [facility] Last Admin: 11/19/19 08:38 Dose: 200 mls/hr Documented by: Metronidazole 500 mg/ IV (Solution) 100 mls @ 100 mls/hr IVPB Q8HR [facility] Last Admin: 11/19/19 17:00 Dose: 100 mls/hr Documented by: Norepinephrine Bitartrate 4 mg (/ Sodium Chloride) 254 mls @ 17.214 mls/hr IV .[id number] [facility]; Protocol Last Titration: 11/19/19 16:16 Dose: 0.1 mcg/kg/min, 34.427 mls/hr Documented by: Propofol 1,000 mg/ IV Solution 100 mls @ 0 mls/hr IV .Q0M [facility]; Protocol Last Titration: 11/19/19 15:48 Dose: 0 mcg/kg/min, 0 mls/hr Documented by: Sodium Chloride (Saline 0.45%) 1,000 mls @ 50 mls/hr IV .Q20H [facility] Last Admin: 11/19/19 08:37 Dose: 50 mls/hr Documented by: Levothyroxine Sodium (Synthroid) 25 mcg PO DAILY@0630 [facility] Last Admin: 11/19/19 06:58 Dose: 25 mcg Documented by: Lisinopril (Zestril) 2.5 mg PO DAILY@0800 [facility] Last Admin: 11/19/19 08:34 Dose: Not Given Documented by: Magnesium Hydroxide (Milk Of Magnesia) 2,400 mg PO Q48H PRN PRN Reason: Constipation Magnesium Oxide (Mag-Ox) 400 mg PO BID@0800,1700 [facility] Last Admin: 11/19/19 17:00 Dose: 400 mg Documented by: Naloxone HCl (Narcan) 0.2 mg IV Q2M PRN PRN Reason: Opioid Reversal Quetiapine Fumarate (Seroquel) 25 mg PO HS@2100 [facility] Last Admin: 11/18/19 23:15 Dose: 25 mg Documented by: Sodium Bicarbonate (Sodium Bicarbonate Tab) 650 mg PO TID [facility] Last Admin: 11/19/19 17:00 Dose: 650 mg Documented by: Sodium Biphosphate/Sodium Phosphate (Fleet Adult) 133 ml RECTAL DAILY PRN PRN Reason: Constipation Vancomycin HCl (Vancomycin Oral Solution) 250 mg PO Q6HR [facility] Last Admin: 11/19/19 17:00 Dose: 250 mg Documented by: On examination: VITAL SIGNS: 97.9, 80, 16, 114/36, 100% on ventilator GENERAL APPEARANCE: Laying in bed, sedated, intubated HEENT: Normal external appearance of nose and ear. ET tube EYES: Pupils equal. Conjunctiva pale NECK: JVD not raised. Mass not palpable. RESPIRATORY: Respiratory effort increased. Decreased breath sounds CARDIOVASCULAR: First and second sounds normal. No edema. ABDOMEN: Soft. Liver and spleen not palpable. No tenderness. No mass palpable. Has a Beaulieu catheter. DERMATOLOGICAL: Multiple decubitus ulcers see nursing note PSYCHIATRY: Patient intubated and unable to assess EXTREMITY:. Left above-knee amputation. INVESTIGATIONS, reviewed in the clinical context: White count 12 hemoglobin 6.4 platelets 203 potassium 3.4 bicarb 13 bun 36 creatinine 1.70 LDH 160, CPK 199, albumin 1.5 Previous testing White count 11 hemoglobin 6.9 platelets 310 progression 3.9 creatinine 1 troponin I 0.123 Coronavirus PCR not detected Phones at type A type B both negative UA positive for leukoesterase WBC. Stool-positive for C. diff Urine culture-Pseudomonas aeruginosa Chest x-ray film personally reviewed by [id number] opacification of left side Assessment: -Acute hypoxic respiratory failure probably from pneumonia, possible aspiration requiring intubation/ventilation.--Slow to respond -Suspect left-sided pneumonia, possible aspiration-slow to respond -Acute C. diff colitis- -Acute UTI from cystitis from pseudomonas aeruginosa secondary to Beaulieu catheter -Left gluteus unstageable ulcer, right gluteus also stage II lower extremity second digit ulcer-also source of infection -Recent hospital admission for Acute GI bleed-EGD unremarkable, patient refused colonoscopy preparation -Hypothermia Slow to respond -nonsustained V. tach -Persistent atrial fibrillation on Eliquis at home, currently held -coronary artery disease status post stent placement in RCA and LAD was on Plavix -Diabetes mellitus -Hypothyroid -Chronic kidney disease stage II secondary to diabetes mellitus -Essential Hypertension, currently hypotension-new diagnosis -coronary artery disease -Benign prostatic hypertrophy -Peripheral artery disease -Left above-knee amputation - anxiety and depression, -Troponin leak due hemodynamic mismatch -Severe protein malnutrition-BMI 15.1 -Metabolic acidosis -Initial COVID-19 test negative. Repeat testing pending. -Full code Plan: on IV cefepime, IV Flagyl, levo fed, propofol, by mouth vancomycin. Intubated. In the ICU. Dr. Jones today ordered repeat COVID-19 PCR after discussion with the administration. Extremely reasonable to do that given probability of false- negative. We will discontinue patient's lisinopril and by mouth Lasix. Prognosis guarded.
--- NOTE | 2019-11-19 19:32 | PN ---
PROGRESS NOTE DATE OF SERVICE: 11/19/2019 REASON FOR FOLLOWUP: 1. Acute respiratory failure, possible component of pneumonia. 2. Pseudomonas UTI. 3. Infected sacral pressure ulcer. 4. C difficile colitis. INTERVAL HISTORY: The patient is afebrile. The patient remains sedated, intubated on the vent. FiO2 is currently 100%. No significant purulent secretions through the ET have been reported by the nursing staff. The patient's diarrhea has resolved. No significant output in the fecal management system. PHYSICAL EXAMINATION: Blood pressure 115/43, pulse of 73, temperature 98. He is 100% on 30% FiO2. General description is a middle-aged male intubated on the vent. RESPIRATORY SYSTEM: Unlabored breathing. Coarse breath sounds bilaterally. No wheeze. HEART: S1, S2. Regular rate and rhythm. ABDOMEN: Soft. No tenderness. LABS: Hemoglobin 6.4, white count 12,000. BUN of 36, creatinine 1.70. DIAGNOSTIC IMPRESSION AND PLAN: 1. Patient with acute respiratory failure which is likely multifactorial with possible concern for aspiration pneumonitis and COVID-19. Repeat has been requested; waiting for results, as the patient did have an elevated inflammatory marker suspicious for COVID-19 pneumonia as well. The patient is covered cefepime and Flagyl to cover for sputum culture has been requested. Antibiotics to be adjusted further on the basis of these reports. 2. Patient with left foot infected pressure ulcer. Local care with Medihoney to the wound with slough tissue. Await surgical debridement. 3. Clostridium difficile colitis, currently covered with Flagyl. Vancomycin to be started once he is tolerating his tube feeds. MMODL / IJN: [id number] /
[2019-11-19] MEDS: QUEtiapine 25 MG TAB PO SCH (20:35)
[2019-11-19 23:14] LABS: Anisocytosis Slight; Basophils % (A) 0 %; Eosinophils # (A) 0.4 k/uL (0-0.7); Eosinophils % (A) 3 %; HCT 26.1 % (39.0-53.0); HGB 7.8 gm/dL (13.0-17.5); Hypochromasia Marked; Lymphocytes # (A) 1.2 k/uL (1.0-4.8); Lymphocytes % (A) 8 %; MCH 26.1 pg (25.0-35.0); MCV 86.8 fL (80.0-100.0); Mean Platelet Volume 9.9; Monocytes # (A) 0.5 k/uL (0-1.0); Monocytes % (A) 3 %; Neutrophils # (A) 13.3 k/uL (1.3-7.7); Neutrophils % (A) 85 %; Platelet Count 141 k/uL (150-450); Poikilocytosis Moderate; RBC 3.01 m/uL (4.30-5.90); RDW 17.6 % (11.5-15.5); WBC 15.6 k/uL (3.8-10.6)
[2019-11-19 23:29] LABS: Glucose,Whole Blood 116 mg/dL (75-99)
[2019-11-20] MEDS: VANCOMYCIN ORAL SOLUTION 250 MG/5 ML BOTTLE PO SCH ×4 (00:31→17:57)
[2019-11-20] MEDS: metroNIDAZOLE-NS PMX 500 MG in SALINE 1 100ML.BAG IVPB SCH ×3 (00:31→16:11)
[2019-11-20] MEDS: PROPOFOL 1,000 MG in EMPTY BAG 1 BAG IV SCH ×5 (02:55→23:52)
[2019-11-20] MEDS: NOREPINEPHRINE 4 MG in SODIUM CHLORIDE 0.9% 250 ML IV SCH ×5 (03:01→23:52)
[2019-11-20 05:10] LABS: Anisocytosis Slight; Basophils % (A) 0 %; Eosinophils # (A) 0.6 k/uL (0-0.7); Eosinophils % (A) 3 %; HCT 26.8 % (39.0-53.0); HGB 8.1 gm/dL (13.0-17.5); Hypochromasia Marked; Lymphocytes % (A) 12 %; MCH 26.1 pg (25.0-35.0); MCHC 30.1 g/dL (31.0-37.0); MCV 86.6 fL (80.0-100.0); Mean Platelet Volume 10.5; Monocytes # (A) 0.4 k/uL (0-1.0); Monocytes % (A) 3 %; Neutrophils # (A) 13.3 k/uL (1.3-7.7); Neutrophils % (A) 80 %; Platelet Count 117 k/uL (150-450); Poikilocytosis Moderate; RDW 17.5 % (11.5-15.5); WBC 16.5 k/uL (3.8-10.6)
[2019-11-20 05:11] LABS: ABG Base Excess -12.6 mmol/L; ABG HCO3 14 mmol/L (21-25); ABG Oxygen Saturation 98.7 % (94-97); ABG PCO2 28 mmHg (35-45); ABG PO2 121 mmHg (83-108); ABG TCO2 15 mmol/L (19-24); Allen Test Performed? Yes
[2019-11-20 05:15] LABS: Potassium 3.3 mmol/L (3.5-5.1)
[2019-11-20 05:16] LABS: Calcium 7.3 mg/dL (8.4-10.2)
[2019-11-20] MEDS ORDERED: Potassium Replacement Protocol 1 EACH MISC MISCELLANE PRN (05:24)
[2019-11-20 06:12] LABS: Glucose,Whole Blood 166 mg/dL (75-99)
[2019-11-20] MEDS: POTASSIUM BICARBONATE/CIT AC 20 MEQ TABLET.EFF NG-TUBE SCH ×6 (06:46→22:35)
[2019-11-20] MEDS: FERROUS SULFATE 325 MG TAB PO SCH ×3 (06:46→16:42)
[2019-11-20] MEDS: LEVOTHYROXINE 25 MCG TAB PO SCH (06:46)
--- NOTE | 2019-11-20 07:50 | XR ---
EXAMINATION TYPE: XR chest 1V portable DATE OF EXAM: 11/20/2019 COMPARISON: 11/19/2019 INDICATION: Tube placement TECHNIQUE: Single frontal view of the chest is obtained. FINDINGS: The heart size is normal. The pulmonary vasculature is normal. Bibasilar infiltrates are present greater at the right base. Previous left pleural effusion has large ly resolved. Sternotomy wires are in the midline. Endotracheal tube tip is above the fátima. Nasogast jarad tube transverses the thorax. IMPRESSION: 1. Significant improvement of the left pleural effusion. No pneumothorax is evident. 2. Bibasilar infiltrates. 3. Lines and catheters discussed above.
[2019-11-20] MEDS: ATORVASTATIN 40 MG TAB PO SCH (07:53)
[2019-11-20] MEDS: CEFEPIME 2 GM in SODIUM CHLORIDE 0.9% 100 ML IVPB SCH ×2 (07:54→20:25)
[2019-11-20] MEDS: ASPIRIN 81 MG PO SCH (07:55)
[2019-11-20] MEDS: FLUoxetine HCL 20 MG CAP PO SCH (07:55)
[2019-11-20] MEDS: ALLOPURINOL 100 MG TAB PO SCH (07:55)
[2019-11-20] MEDS: CHLORHEXIDINE GLUCONATE 15 ML CUP MUCOUS MEM SCH ×2 (07:55→20:25)
[2019-11-20] MEDS: MAGNESIUM OXIDE 400 MG TAB PO SCH ×2 (07:55→16:44)
[2019-11-20] MEDS: CLOPIDOGREL 75 MG TAB PO SCH (07:55)
[2019-11-20] MEDS: SODIUM CHLORIDE 0.45% 1,000 ML IV SCH (07:56)
[2019-11-20] MEDS: SODIUM BICARBONATE TAB 650 MG TAB PO SCH ×3 (08:02→22:35)
[2019-11-20] MEDS ORDERED: DEXTROSE 5% IN WATER 1,000 ML IV ONE (08:15)
[2019-11-20 09:24] LABS: Albumin 1.4 g/dL (3.5-5.0); Total Bilirubin 0.8 mg/dL (0.2-1.3); Total Protein 4.1 g/dL (6.3-8.2)
[2019-11-20 10:55] LABS: C Reactive Protein 207.2 mg/L (<10.0)
[2019-11-20 11:12] LABS: Glucose,Whole Blood 122 mg/dL (75-99)
--- NOTE | 2019-11-20 14:56 | PN ---
PROGRESS NOTE PULMONARY/CRITICAL CARE PROGRESS NOTE: DATE OF SERVICE: 11/20/2019 this is a 64-year-old black male who was admitted on November 12. He initially came in from the snf because of extensive ulcers and skin infections. Unfortunately, the patient developed acute respiratory failure with hypoxemia a couple of nights ago and required intubation with mechanical ventilation. His initial COVID-19 test on November 12, which was negative. He had a repeat test done yesterday, which was also negative. Anyway, I feel good about that, so that I do not have to place him on any treatment for COVID-19 infection. The etiology of his respiratory failure remains unclear. He did have Pseudomonas in his urine and may have developed Pseudomonas urinary tract infection and urosepsis. He remains on the mechanical ventilator. His vent settings are the volume assist-control mode rate of 16, tidal volume 450, up to his 30% PEEP of 5. Currently, he is on half-normal saline at 50 mL an hour, propofol at 30 mcg/kg per minute and Levophed at 12.5 mcg/minute. He is getting tube feeds with Vital high-protein at 30 with a goal of 51. His chest x-ray shows some bibasilar infiltrates. His FiO2 will be dropped two 25%. Blood gases show a PO2 of 121, pCO2 of 28, and a pH of 7.30. Because of his excess sodium and chloride load, the patient's IV will be switched to dextrose at 75 mL an hour. There was Pseudomonas in his urine, which is currently being covered. His repeat COVID-19 test as mentioned above was negative. Current vital signs are reviewed. Temperature 97.8, heart rate 103, respiratory rate 14, blood pressure 111/47 with a saturation of 95%. The FiO2 was 25%. Appears in no acute distress. Currently sedated. HEENT: Examination is grossly unremarkable. He has an orally placed endotracheal tube and NG tube. NECK: Supple. Full range of motion. No adenopathy or thyromegaly. Neck veins are flat. CARDIOVASCULAR: Examination reveals regular rhythm and rate. Heart rate in the mid to high 70s. S1, S2 normal. No murmur. Heart sounds are distant. LUNGS: Reveal diffuse coarse bilateral rhonchi and wheezes. No crackles. Breath sounds equal. ABDOMEN: Soft. Bowel sounds are noted. EXTREMITIES are intact. He does have a left rrklx-rte-wset amputation. SKIN: Without rash. NEUROLOGIC: Examination difficult to assess given his current level of sedation. LABS: Reviewed. White count 16.5, hemoglobin 8.1, hematocrit 26.8, platelet count 117,000. D-dimer is quite high at 18.31. Blood gases have been noted. Sodium 143, potassium 3.3, chloride 124, CO2 of 14, anion gap is 5. BUN and creatinine were 37 and 1.97. Glucose 107. Calcium 7.3. LDH 11.088. CK was 141. C-reactive protein 207.2. TSH was normal. Zee virus test on 11/19 was negative. A chest x-ray is done today and shows improvement in the patient's left-sided pleural effusion. No pneumothorax is evident. He has some bibasilar infiltrates. Microbiologic study show Pseudomonas aeruginosa in the urine. MEDICATIONS: Reviewed. The patient is on Tylenol, Zyloprim, aspirin, Lipitor, Dulcolax, cefepime, Peridex, Questran, Plavix, iron, Prozac, Lasix p.r.n., levothyroxine, milk of magnesia, Mag-Ox, Flagyl, Fleet's enema, Narcan, norepinephrine, potassium replacement, propofol, Seroquel, sodium bicarbonate tablets, and oral vancomycin. ASSESSMENT: 1. Acute hypoxemic respiratory failure, with intubation early on the morning of November 17, likely related to underlying sepsis. Sources include Pseudomonas aeruginosa, urinary tract infection/urosepsis as well as Clostridium difficile colitis. In addition, a left-sided pneumonia is thought to be present as well. 2. History of Clostridium difficile colitis. 3. COVID-19 negative x2. 4. History of chronic atrial fibrillation. 5. CAD. 6. COPD. 7. Diabetes mellitus. 8. Gastroesophageal reflux disease. 9. Hyperlipidemia. 10.Benign essential hypertension. 11.History of myocardial infarction. 12.Hypothyroidism. 13.Peripheral artery disease. 14.Diverticular disease. 15.Chronic kidney disease. 16.Anxiety/depression. 17.Past history of alcohol abuse. 18.History of mitral valve replacement. 19.Status post cardiac catheterization with stent. 20.Status post left AKA. PLAN: The patient's repeat COVID-19 test was negative. This is good and that I do not have to treat the patient for COVID-19 infection. I did not think it was likely that he had this infection and I thought his episode of sepsis was more likely related to his Clostridium difficile colitis and Pseudomonas aeruginosa urinary tract infection. Anyway, the patient is doing reasonably well. We changed his IV fluids to dextrose at 75 mL an hour. His FiO2 was dropped down to 25%. He is on cefepime for Pseudomonas infection. He is also on oral vancomycin for Clostridium difficile colitis. We will continue to attempt to wean the Levophed. Will do a daily interruption of sedation. Overall prognosis remains guarded. Critical care time more than 30 minutes. MMODL / IJN: [id number] /
--- NOTE | 2019-11-20 15:55 | P.PN ---
Subjective Progress Note Date: 11/20/19 CHIEF COMPLAINT: Left gluteal decubitus ulcer HISTORY OF PRESENT ILLNESS: Patient examined in the intensive care unit with Dr. Nation. He remains on mechanical ventilation. WBC 16.5. Hemoglobin 8.1. PHYSICAL EXAM: VITAL SIGNS: Reviewed. GENERAL: Well-developed in no acute distress. HEENT: ET tube noted. No sclera icterus. Extraocular movements grossly intact. Moist buccal mucosa. Head is atraumatic, normocephalic. ABDOMEN: Soft. Nondistended. Nontender. NEUROLOGIC: Not thoroughly examined ASSESSMENT: 1. Left gluteal decubitus ulcer PLAN: -Patient will undergo debridement of decubitus ulcer tentatively on Monday with Dr. Nation -Continue local wound care Nurse practitioner note has been reviewed by physician. Signing provider agrees with the documented findings, assessment, and plan of care. Objective - Vital Signs Vital signs: Vital Signs Temp 98.0 F 11/20/19 09:00 Pulse 102 H 11/20/19 10:00 Resp 15 11/20/19 10:00 BP 114/60 11/20/19 09:00 Pulse Ox 99 11/20/19 10:00 Intake & Output 11/19/19 11/20/19 11/20/19 18:59 06:59 18:59 Intake Total 2415.817 1691.267 947.596 Output Total 1290 830 180 Balance 1125.817 861.267 767.596 Weight 90.36 kg Intake: IV 1073 836 312 Cefepime 2 gm In Sodium 100 200 100 Chloride 0.9% 100 ml @ 200 mls/hr IVPB Q12HR [facility] Rx#:[id number] Pressure bag 33 36 12 Sodium Chloride 0.45% 1, 500 500 100 000 ml @ 50 mls/hr IV . Q20H AJ Rx#:[id number] Sodium Chloride 0.9% 1, 240 000 ml @ 120 mls/hr IV . Q8H20M AJ Rx#:[id number] metroNIDAZOLE-NS PMX 500 200 100 100 mg In Saline 1 100ml.bag @ 100 mls/hr IVPB Q8HR AJ Rx#:[id number] Intake, IV Titration 882.817 465.267 485.596 Amount Dextrose 5% in Water 1, 150 000 ml @ 75 mls/hr IV . [id number] ONE Rx#:[id number] Norepinephrine 4 mg In 636.498 330.658 254 Sodium Chloride 0.9% 250 ml @ 0.05 MCG/KG/MIN 17. 214 mls/hr IV .[id number] [facility] Rx#:[id number] Propofol 1,000 mg In 246.319 134.609 81.596 Empty Bag 1 bag @ Titrate IV .Q0M [facility] Rx#: [id number] Tube Feeding 90 300 120 Blood Product 310 Rc As-1 Unit 310 [id number] Other 60 90 30 Output: Urine 1290 830 180 Other: Voiding Method Indwelling Catheter Indwelling Catheter ABP, PAP, CO, CI - Last Documented Arterial Blood Pressure 98/45 - Labs CBC & Chem 7: 11/20/19 04:45 11/20/19 11:12 Labs: Abnormal Lab Results - Last 24 Hours (Table) 11/19/19 11/19/19 11/19/19 Range/Units 04:00 12:16 12:48 WBC (3.8-10.6) k/uL RBC (4.30-5.90) m/uL Hgb (13.0-17.5) gm/dL Hct (39.0-53.0) % MCHC (31.0-37.0) g/dL RDW (11.5-15.5) % Plt Count (150-450) k/uL Neutrophils # (1.3-7.7) k/uL D-Dimer (<0.60) mg/L FEU ABG pH (7.35-7.45) ABG pCO2 (35-45) mmHg ABG pO2 (83-108) mmHg ABG HCO3 (21-25) mmol/L ABG Total CO2 (19-24) mmol/L ABG O2 Saturation (94-97) % Potassium (3.5-5.1) mmol/L Chloride (98-107) mmol/L Carbon Dioxide (22-30) mmol/L BUN (9-20) mg/dL Creatinine (0.66-1.25) mg/dL Glucose (74-99) mg/dL POC Glucose (mg/dL) 119 H (75-99) mg/dL Calcium (8.4-10.2) mg/dL Ferritin 826.1 H (22.0-322.0) ng/mL Total Protein (6.3-8.2) g/dL Albumin (3.5-5.0) g/dL Crossmatch See Detail 11/19/19 11/19/19 11/20/19 Range/Units 22:30 23:27 04:45 WBC 15.6 H (3.8-10.6) k/uL RBC 3.01 L (4.30-5.90) m/uL Hgb 7.8 L (13.0-17.5) gm/dL Hct 26.1 L (39.0-53.0) % MCHC 30.0 L (31.0-37.0) g/dL RDW 17.6 H (11.5-15.5) % Plt Count 141 L (150-450) k/uL Neutrophils # 13.3 H (1.3-7.7) k/uL D-Dimer (<0.60) mg/L FEU ABG pH (7.35-7.45) ABG pCO2 (35-45) mmHg ABG pO2 (83-108) mmHg ABG HCO3 (21-25) mmol/L ABG Total CO2 (19-24) mmol/L ABG O2 Saturation (94-97) % Potassium 3.3 L (3.5-5.1) mmol/L Chloride 124 H (98-107) mmol/L Carbon Dioxide 14 L (22-30) mmol/L BUN 37 H (9-20) mg/dL Creatinine 1.97 H (0.66-1.25) mg/dL Glucose 107 H (74-99) mg/dL POC Glucose (mg/dL) 116 H (75-99) mg/dL Calcium 7.3 L (8.4-10.2) mg/dL Ferritin (22.0-322.0) ng/mL Total Protein 4.1 L (6.3-8.2) g/dL Albumin 1.4 L (3.5-5.0) g/dL Crossmatch 11/20/19 11/20/19 11/20/19 Range/Units 04:45 04:45 05:05 WBC 16.5 H (3.8-10.6) k/uL RBC 3.10 L (4.30-5.90) m/uL Hgb 8.1 L (13.0-17.5) gm/dL Hct 26.8 L (39.0-53.0) % MCHC 30.1 L (31.0-37.0) g/dL RDW 17.5 H (11.5-15.5) % Plt Count 117 L (150-450) k/uL Neutrophils # 13.3 H (1.3-7.7) k/uL D-Dimer 18.31 H (<0.60) mg/L FEU ABG pH 7.30 L (7.35-7.45) ABG pCO2 28 L (35-45) mmHg ABG pO2 121 H (83-108) mmHg ABG HCO3 14 L (21-25) mmol/L ABG Total CO2 15 L (19-24) mmol/L ABG O2 Saturation 98.7 H (94-97) % Potassium (3.5-5.1) mmol/L Chloride (98-107) mmol/L Carbon Dioxide (22-30) mmol/L BUN (9-20) mg/dL Creatinine (0.66-1.25) mg/dL Glucose (74-99) mg/dL POC Glucose (mg/dL) (75-99) mg/dL Calcium (8.4-10.2) mg/dL Ferritin (22.0-322.0) ng/mL Total Protein (6.3-8.2) g/dL Albumin (3.5-5.0) g/dL Crossmatch 11/20/19 Range/Units 06:10 WBC (3.8-10.6) k/uL RBC (4.30-5.90) m/uL Hgb (13.0-17.5) gm/dL Hct (39.0-53.0) % MCHC (31.0-37.0) g/dL RDW (11.5-15.5) % Plt Count (150-450) k/uL Neutrophils # (1.3-7.7) k/uL D-Dimer (<0.60) mg/L FEU ABG pH (7.35-7.45) ABG pCO2 (35-45) mmHg ABG pO2 (83-108) mmHg ABG HCO3 (21-25) mmol/L ABG Total CO2 (19-24) mmol/L ABG O2 Saturation (94-97) % Potassium (3.5-5.1) mmol/L Chloride (98-107) mmol/L Carbon Dioxide (22-30) mmol/L BUN (9-20) mg/dL Creatinine (0.66-1.25) mg/dL Glucose (74-99) mg/dL POC Glucose (mg/dL) 166 H (75-99) mg/dL Calcium (8.4-10.2) mg/dL Ferritin (22.0-322.0) ng/mL Total Protein (6.3-8.2) g/dL Albumin (3.5-5.0) g/dL Crossmatch Microbiology - Last 24 Hours (Table) 11/19/19 Unknown Gram Stain - Preliminary Sputum Sputum Culture - Preliminary 11/13/19 14:56 Blood Culture - Final Blood No Growth after 144 hours
--- NOTE | 2019-11-20 17:02 | PN ---
PROGRESS NOTE DATE OF SERVICE: 11/20/2019 REASON FOR FOLLOWUP: 1. Infected left gluteal pressure ulcer. 2. Aspiration pneumonia. 3. UTI and C difficile colitis. INTERVAL HISTORY: The patient is currently afebrile. The patient is hemodynamically stable. FiO2 is down to 55%. No significant desaturation per ET and overall diarrhea seems to have decreased in amount. The patient remains to be sedated on the vent. PHYSICAL EXAMINATION: Blood pressure 111/47, pulse of 103, temperature of 97.8. He is 95% on 25% FiO2. General description is a middle-aged male, intubated on the vent. RESPIRATORY SYSTEM: Unlabored breathing, coarse breath sounds. No wheeze. HEART: S1, S2. Regular rate and rhythm. ABDOMEN: Soft, no tenderness. LABS: Hemoglobin 8.8, white count 15.5 BUN of 37, creatinine 1.97. Sputum cultures are currently pending. DIAGNOSTIC IMPRESSION AND PLAN: 1. Patient with acute respiratory failure which is likely multifactorial with possible component of aspiration pneumonia. The patient is currently covered with cefepime and Flagyl. This should cover his infected left gluteal pressure ulcer, possible debridement on Monday at which time cultures should be done. 2. Pseudomonas urinary tract infection, covered with cefepime #60 with colitis, covered with vancomycin. Overall prognosis remains to be guarded. MMODL / IJN: [id number] /
[2019-11-20 18:20] LABS: Glucose,Whole Blood 123 mg/dL (75-99)
--- NOTE | 2019-11-20 19:39 | P.PN ---
Progress Note - Text Progress Note Date: 11/20/19 Chief Complaint: Decub ulcers History of presenting complaint: This is a pleasant [address] 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 Patient was just in the hospital from November 05 through November 11. With GI bleed. EGD was unremarkable. Patient did do bowel preparation for colonoscopy. Aspirin Plavix was resumed. Eliquis was held. Patient seen by the wound care nurse Nicole on the last admission. Outpatient follow-up recommended. -patient was seen by Dr. Zeng. He felt that the sacral decub also needs to be debrided. As the patient being sent down. Patient has occasional cough which is chronic. No shortness of breath. No fever or chills. Appetite is good. Admitted with-advancing decub's. Also came back showing C. diff colitis. Patient also became hypotensive and hypothermic. Given a warming blanket. became more hypotensive into respiratory distress. Drop in pulse ox. Patient is intubated and moved to the ICU. Today-. ICU: Revealed the ventilator. FiO2 25% and PEEP of 5. Atrial fibrillation rate increased. Drips include propofol and Levophed. Repeat COVID test was negative. Hypokalemia corrected. 2 feeding or: At 40 mL. Review of systems:Patient intubated Active Medications Acetaminophen (Tylenol Tab) 650 mg PO Q6HR PRN PRN Reason: Mild Pain or Fever > 100.5 Acetaminophen (Tylenol Tab) 650 mg PO Q6HR PRN PRN Reason: Fever and/ or Pain Allopurinol (Zyloprim) 100 mg PO DAILY@0800 [facility] Last Admin: 11/20/19 07:55 Dose: 100 mg Documented by: Aspirin (Aspirin) 81 mg PO DAILY@0800 [facility] Last Admin: 11/20/19 07:55 Dose: 81 mg Documented by: Atorvastatin Calcium (Lipitor) 40 mg PO DAILY [facility] Last Admin: 11/20/19 07:53 Dose: 40 mg Documented by: Bisacodyl (Dulcolax) 10 mg RECTAL DAILY PRN PRN Reason: Constipation Chlorhexidine Gluconate (Peridex) 15 ml MUCOUS MEM BID [facility] Last Admin: 11/20/19 07:55 Dose: 15 ml Documented by: Cholestyramine Resin (Questran) 4 gm PO PC-TID PRN PRN Reason: Diarrhea Clopidogrel Bisulfate (Plavix) 75 mg PO DAILY@0800 [facility] Last Admin: 11/20/19 07:55 Dose: 75 mg Documented by: Ferrous Sulfate (Feosol) 325 mg PO AC-TID [facility] Last Admin: 11/20/19 16:42 Dose: 325 mg Documented by: Fluoxetine HCl (Prozac) 20 mg PO DAILY@0800 [facility] Last Admin: 11/20/19 07:55 Dose: 20 mg Documented by: Cefepime HCl 2 gm/ Sodium (Chloride) 100 mls @ 200 mls/hr IVPB Q12HR [facility] Last Admin: 11/20/19 07:54 Dose: 200 mls/hr Documented by: Metronidazole 500 mg/ IV (Solution) 100 mls @ 100 mls/hr IVPB Q8HR [facility] Last Admin: 11/20/19 16:11 Dose: 100 mls/hr Documented by: Norepinephrine Bitartrate 4 mg (/ Sodium Chloride) 254 mls @ 17.214 mls/hr IV .[id number] [facility]; Protocol Last Titration: 11/20/19 18:19 Dose: 0.19 mcg/kg/min, 65.412 mls/hr Documented by: Propofol 1,000 mg/ IV Solution 100 mls @ 0 mls/hr IV .Q0M [facility]; Protocol Last Titration: 11/20/19 18:19 Dose: 30 mcg/kg/min, 16.265 mls/hr Documented by: Dextrose/Water (Dextrose 5%-Water Iv Soln) 1,000 mls @ 75 mls/hr IV .[id number] ONE Stop: 11/20/19 21:34 Last Admin: 11/20/19 08:42 Dose: 75 mls/hr Documented by: Levothyroxine Sodium (Synthroid) 25 mcg PO DAILY@0630 [facility] Last Admin: 11/20/19 06:46 Dose: 25 mcg Documented by: Magnesium Hydroxide (Milk Of Magnesia) 2,400 mg PO Q48H PRN PRN Reason: Constipation Magnesium Oxide (Mag-Ox) 400 mg PO BID@0800,1700 [facility] Last Admin: 11/20/19 16:44 Dose: 400 mg Documented by: Miscellaneous Information (Potassium Per Protocol) 1 each MISCELLANE DAILY PRN; Protocol PRN Reason: Per Protocol Naloxone HCl (Narcan) 0.2 mg IV Q2M PRN PRN Reason: Opioid Reversal Potassium Bicarbonate (K-Lyte) 20 meq NG-TUBE Q1HR [facility]; Protocol Stop: 11/20/19 21:01 Quetiapine Fumarate (Seroquel) 25 mg PO HS@2100 [facility] Last Admin: 11/19/19 20:35 Dose: 25 mg Documented by: Sodium Bicarbonate (Sodium Bicarbonate Tab) 650 mg PO TID [facility] Last Admin: 11/20/19 16:42 Dose: 650 mg Documented by: Sodium Biphosphate/Sodium Phosphate (Fleet Adult) 133 ml RECTAL DAILY PRN PRN Reason: Constipation Vancomycin HCl (Vancomycin Oral Solution) 250 mg PO Q6HR [facility] Last Admin: 11/20/19 17:57 Dose: 250 mg Documented by: On examination: VITAL SIGNS: 97.8, 101, 20, 112/51, 98% on ventilator GENERAL APPEARANCE: Laying in bed, sedated, intubated HEENT: ET tube EYES: Pupils equal. Conjunctiva pale NECK: JVD not raised. Mass not palpable. RESPIRATORY: Respiratory effort increased. Decreased breath sounds CARDIOVASCULAR: First and second sounds normal. No edema. ABDOMEN: Soft. Liver and spleen not palpable. No tenderness. No mass palpable. Has a Beaulieu catheter. DERMATOLOGICAL: Multiple decubitus ulcers see nursing note PSYCHIATRY: Patient intubated and unable to assess EXTREMITY:. Left above-knee amputation. INVESTIGATIONS, reviewed in the clinical context: White count 16.5 hemoglobin 8.1 potassium 3.3 bicarb 14 bun 37 creatinine 1.97 Previous testing White count 11 hemoglobin 6.9 platelets 310 progression 3.9 creatinine 1 troponin I 0.123 Coronavirus PCR not detected Phones at type A type B both negative UA positive for leukoesterase WBC. Stool-positive for C. diff Urine culture-Pseudomonas aeruginosa Chest x-ray film personally reviewed by [id number] opacification of left Assessment: -Acute hypoxic respiratory failure probably from pneumonia, possible aspiration requiring intubation/ventilation.- -Suspect left-sided pneumonia, possible aspiration -Acute C. diff colitis-slow to respond -Acute UTI from cystitis from pseudomonas aeruginosa secondary to Beaulieu catheter -Left gluteus unstageable ulcer, right gluteus also stage II lower extremity second digit ulcer -Recent hospital admission for Acute GI bleed-EGD unremarkable, patient refused colonoscopy preparation -Hypothermia Slow to respond -nonsustained V. tach -Persistent atrial fibrillation on Eliquis at home, currently held -coronary artery disease status post stent placement in RCA and LAD was on Wilmar vix -Diabetes mellitus -Hypothyroid -Chronic kidney disease stage II secondary to diabetes mellitus -Essential Hypertension, currently hypotension-new diagnosis -coronary artery disease -Benign prostatic hypertrophy -Peripheral artery disease -Left above-knee amputation - anxiety and depression, -Troponin leak due hemodynamic mismatch -Severe protein malnutrition-BMI 15.1 -Metabolic acidosis -Patient's cousin Thermjewel-obtained legal guardianship Plan: on IV cefepime, IV Flagyl, levo fed, propofol, by mouth vancomycin. Intubated. In the ICU. Prognosis guarded. General surgery is planning for debridement down the road. Patient's cousin obtained legal guardianship
[2019-11-20] MEDS: QUEtiapine 25 MG TAB PO SCH (20:25)
[2019-11-21 00:24] LABS: Glucose,Whole Blood 107 mg/dL (75-99)
[2019-11-21] MEDS: metroNIDAZOLE-NS PMX 500 MG in SALINE 1 100ML.BAG IVPB SCH ×3 (00:28→16:34)
[2019-11-21] MEDS: VANCOMYCIN ORAL SOLUTION 250 MG/5 ML BOTTLE PO SCH ×4 (00:28→18:27)
[2019-11-21 05:28] LABS: Anisocytosis Slight; HCT 25.7 % (39.0-53.0); HGB 7.8 gm/dL (13.0-17.5); Hypochromasia Marked; MCH 26.1 pg (25.0-35.0); MCHC 30.2 g/dL (31.0-37.0); MCV 86.4 fL (80.0-100.0); Mean Platelet Volume 11.1; Poikilocytosis Moderate; RBC 2.97 m/uL (4.30-5.90); WBC 18.9 k/uL (3.8-10.6)
[2019-11-21 05:37] LABS: Albumin 1.3 g/dL (3.5-5.0); Calcium 7.1 mg/dL (8.4-10.2); Potassium 3.5 mmol/L (3.5-5.1); Total Bilirubin 0.7 mg/dL (0.2-1.3); Total Protein 4.1 g/dL (6.3-8.2)
[2019-11-21 05:42] LABS: Band Neutrophils % 14 %; Eosinophils # (M) 1.32 k/uL (0-0.7); Lymphocytes # (M) 2.08 k/uL (1.0-4.8); Monocytes # (M) 0.57 k/uL (0-1.0); Neutrophils % (M) 65 %; Nucleated Red Blood Cells 0 /100 WBC (0-0); Total Cells Counted 100
[2019-11-21] MEDS: NOREPINEPHRINE 4 MG in SODIUM CHLORIDE 0.9% 250 ML IV SCH ×2 (05:42→09:20)
[2019-11-21 05:43] LABS: Anisocytosis (M) Present; Poikilocytosis (M) Present
[2019-11-21 05:44] LABS: ABG HCO3 14 mmol/L (21-25); ABG Oxygen Saturation 98.7 % (94-97); ABG PCO2 28 mmHg (35-45); ABG PO2 108 mmHg (83-108); ABG TCO2 14 mmol/L (19-24); Allen Test Performed? Yes
[2019-11-21 05:44] LABS: Platelet Count 72 k/uL (150-450); RBC Fragments Present
[2019-11-21 05:59] LABS: Glucose,Whole Blood 96 mg/dL (75-99)
[2019-11-21 06:19] LABS: C Reactive Protein 160.5 mg/L (<10.0)
[2019-11-21] MEDS: PROPOFOL 1,000 MG in EMPTY BAG 1 BAG IV SCH ×3 (06:41→19:15)
--- NOTE | 2019-11-21 07:35 | XR ---
EXAMINATION TYPE: XR abdomen 1V DATE OF EXAM: 11/21/2019 COMPARISON: NONE HISTORY: Pain TECHNIQUE: Single supine KUB image of the abdomen is obtained FINDINGS: There is a paucity of air throughout the small and large bowel. Small amount of air is seen within th e transverse colon. This could reflect fluid-filled bowel loops. Right-sided iliac line noted. No convincing evidence for pneumoperitoneum. No unusual calcifications. The lung bases are clear. The osseous structures are intact. IMPRESSION: 1. Nonspecific abdomen.
--- NOTE | 2019-11-21 07:38 | XR ---
EXAMINATION TYPE: XR chest 1V portable DATE OF EXAM: 11/21/2019 COMPARISON: 11/20/2019 HISTORY: SOB, Follow Up FINDINGS: Indwelling tubes and catheters are unchanged. Stable scattered alveolar and interstitial infiltrates greatest at the lung bases. Stable appearance of the cardio-mediastinal structures at this time. Pleural effusion unchanged. IMPRESSION: 1. Stable portable chest. Clinical correlation and follow up until resolution is recommended.
[2019-11-21] MEDS: LEVOTHYROXINE 25 MCG TAB PO SCH (07:39)
[2019-11-21] MEDS: FERROUS SULFATE 325 MG TAB PO SCH (07:40)
[2019-11-21] MEDS ORDERED: SODIUM CHLORIDE 0.45% 1,000 ML IV ONE (08:30)
[2019-11-21] MEDS: PANTOPRAZOLE 40 MG/10 ML VIAL IVP SCH ×2 (08:32→08:34)
[2019-11-21] MEDS: POTASSIUM CHLORIDE 20 MEQ in WATER FOR INJECTION 1 100ML.BAG IVPB SCH ×2 (08:32→11:37)
[2019-11-21] MEDS: METOPROLOL TARTRATE 5 MG/5 ML VIAL IVP SCH ×2 (08:34→20:10)
[2019-11-21] MEDS: DILTIAZEM 125 MG in SODIUM CHLORIDE 0.9% 100 ML IV SCH (09:05)
[2019-11-21] MEDS: DEXTROSE 5% IN WATER 1,000 ML with SODIUM BICARB (1 MEQ/ML) 150 ML IV SCH ×2 (09:07→20:26)
[2019-11-21] MEDS: CEFEPIME 2 GM in SODIUM CHLORIDE 0.9% 100 ML IVPB SCH (09:56)
[2019-11-21] MEDS: SODIUM CHLORIDE 0.45% 1,000 ML IV SCH ×2 (10:08→11:27)
[2019-11-21 11:07] LABS: Ferritin 1167.2 ng/mL (22.0-322.0)
[2019-11-21] MEDS: CHLORHEXIDINE GLUCONATE 15 ML CUP MUCOUS MEM SCH ×2 (11:12→20:10)
[2019-11-21] MEDS: LEVOTHYROXINE IVP 100 MCG/5 ML VIAL IV SCH (11:12)
[2019-11-21] MEDS: NOREPINEPHRINE 32 MG in SODIUM CHLORIDE 0.9% 218 ML IV SCH (11:22)
--- NOTE | 2019-11-21 12:32 | PN ---
PROGRESS NOTE PULMONARY/CRITICAL CARE PROGRESS NOTE: DATE OF SERVICE: November 21, 2019 CRITICAL CARE TIME: Greater than 30 minutes. A 64-year-old black male who was admitted on November 12. He initially came in from the senior living because of extensive ulcers and skin infections. The patient unfortunately developed acute respiratory failure with hypoxemia and required intubation and mechanical ventilation. The patient had an initial COVID-19 test, on November 12, which was negative. He had a repeat test done on the , which was also negative. I feel fairly confident that he does not have COVID-19 infection. Of course, there is a false-negative rate of about 20%. The etiology of his respiratory failure remains unclear. He does have a Pseudomonas UTI and may have developed Pseudomonas sepsis secondary to urinary tract infection. Anyway, he remains on mechanical ventilator. His vent settings include the volume assist-control mode rate of 16, tidal volume 450, FiO2 25%, PEEP of 5. Blood gases show a pO2 of 108, pCO2 of 28, and pH of 7.30. He remains on D5 at 75 mL an hour, propofol at 30 mcg/kg per minute, norepinephrine at 20 mcg/minute. He is in atrial fibrillation at a rate of 135. We are going to change his metoprolol from oral to IV. We have added Cardizem drip at 7.5 mg an hour without a bolus. We will recheck a lactic acid. We will give him 3 amps of sodium bicarbonate. We will change his IV to D5W at 100 mL an hour. We are going to discontinue all of his oral medications. Last night he apparently had fecal material emanating from his NG tube. His belly apparently was quite distended until his feeding tube was placed to suction. Anyway, we will have Surgery come see the patient and probably end up sending the patient for CT scan of the belly. His plain film of the abdomen was nonspecific. Anyway, the patient certainly has taken a turn for the worse as it relates to his abdominal issues. PHYSICAL EXAMINATION: VITAL SIGNS: Current vital signs are reviewed. His temperature is 97.5, heart rate 111. That is better now on a Cardizem drip. Respiratory rate is 22, blood pressure 111/53, saturations are 99%. GENERAL: Currently sedated. HEENT: Examination is grossly unremarkable. There is an orally placed endotracheal tube and NG tube. NECK: Supple. Full range of motion. No adenopathy. Neck veins are flat. CARDIOVASCULAR: Examination reveals a regular rhythm and rate. Heart rate is about 110 beats per minute. He is in atrial fibrillation. LUNGS: Reveal diffuse coarse rhonchi. Breath sounds equal. ABDOMEN: Soft. Bowel sounds are not noted. There is no distention currently. EXTREMITIES: Reveal a left [id number] amputation. SKIN: Without rash. NEUROLOGIC: Examination is difficult to assess given his current level of sedation. Microbiology showing evidence of Pseudomonas aeruginosa UTI. LABS: Labs are reviewed. White count 18.9, hemoglobin 7.8, hematocrit 25.7, platelet count is 72,000. Blood gases have been noted. Sodium 139, potassium 3.5, chloride 119, CO2 of 15. Anion gap is 5. BUN and creatinine were 30 and 2.01. This is a basic metabolic profile consistent with a hyperchloremic non-anion gap metabolic acidosis. His acidosis is also being caused by his renal failure. Calcium is 7.1. Ferritin 1167. His AST and ALT are normal. LDH 1262. C-reactive protein 160.5, albumin 1.3. His chest x-ray shows bilateral interstitial and alveolar infiltrates, mostly noted at both lung bases. An abdominal x-ray shows non nonspecific abdomen. CURRENT MEDICATIONS: Current medications are reviewed. He is on a Dulcolax rectally, Cardizem drip of 7.5 mg an hour, Maxipime, chlorhexidine, D5W with 3 amps of bicarb at 100 mL an hour, IV Synthroid, magnesium, metoprolol IV, Flagyl, Fleets adult rectal suppository, Narcan p.r.n., norepinephrine, Protonix, potassium protocol, propofol and oral vancomycin. ASSESSMENT: 1. Acute hypoxemic respiratory failure with intubation early on the morning of November 17, likely related to underlying sepsis. Sources include Pseudomonas aeruginosa urinary tract infection/urosepsis as well as Clostridium difficile colitis. In addition, the patient had a left-sided pneumonia as well. 2. History of Clostridium difficile colitis. 3. COVID-19 nasal swab rapid test negative x2. 4. History of chronic atrial fibrillation with rapid ventricular response. 5. Coronary artery disease. 6. Chronic obstructive pulmonary disease. 7. Diabetes mellitus. 8. Gastroesophageal reflux disease. 9. Hyperlipidemia. 10.Benign essential hypertension. 11.History of myocardial infarction. 12.Hypothyroidism. 13.Peripheral artery disease. 14.Diverticular disease. 15.Chronic kidney disease. 16.Anxiety/depression. 17.Past history of alcohol abuse. 18.History of mitral valve replacement. 19.Status post cardiac catheterization with stent. 20.Status post left AKA. 21.Hyperchloremic non-anion gap metabolic acidosis. PLAN: His overall prognosis remains very poor. Although his COVID test is negative x2, he has now developed atrial fibrillation with RVR requiring IV metoprolol and IV Cardizem. In addition, last night he apparently had fecal material emanating from his mouth. We stopped his tube feeds. We put his NG tube on suction. We will go ahead and proceed with a CT scan of the abdomen. The patient's abdominal x-ray was nonspecific. Chest x- ray shows bilateral infiltrates. He is currently on good antibiotics. He will be seen by the surgeon later today. Additional recommendations and suggestions are forthcoming. Prognosis is again poor. CRITICAL CARE TIME: Greater than 30 minutes. MMYUNL / IJN: [id number] /
[2019-11-21 12:45] LABS: Glucose,Whole Blood 94 mg/dL (75-99)
--- NOTE | 2019-11-21 12:53 | P.PN ---
Subjective Progress Note Date: 11/21/19 CHIEF COMPLAINT: Left gluteal decubitus ulcer HISTORY OF PRESENT ILLNESS: Patient examined in the intensive care unit with Dr. Nation. He remains on mechanical ventilation. WBC 18.9. Hemoglobin 7.8. PHYSICAL EXAM: VITAL SIGNS: Reviewed. GENERAL: Well-developed in no acute distress. HEENT: ET tube noted. No sclera icterus. Extraocular movements grossly intact. Moist buccal mucosa. Head is atraumatic, normocephalic. ABDOMEN: Soft. Nondistended. Nontender. NEUROLOGIC: Not thoroughly examined ASSESSMENT: 1. Left gluteal decubitus ulcer PLAN: -Patient will undergo debridement of decubitus ulcer tomorrow with Dr. Nation -Continue local wound care Nurse practitioner note has been reviewed by physician. Signing provider agrees with the documented findings, assessment, and plan of care. Objective - Vital Signs Vital signs: Vital Signs Temp 97.5 F L 11/21/19 07:20 Pulse 97 11/21/19 12:30 Resp 23 11/21/19 12:30 BP 114/60 11/20/19 09:00 Pulse Ox 99 11/21/19 12:30 Intake & Output 11/20/19 11/21/19 11/21/19 18:59 06:59 18:59 Intake Total 2284.030 2136.453 3056.850 Output Total 615 890 500 Balance 0778.116 2012.453 2556.850 Weight 85.6 kg 85.6 kg Intake: IV 336 1146 375 Cefepime 2 gm In Sodium 100 100 100 Chloride 0.9% 100 ml @ 200 mls/hr IVPB Q12HR [facility] Rx#:[id number] Dextrose 5% in Water 1, 825 150 000 ml @ 75 mls/hr IV . [id number] ONE Rx#:[id number] Pressure bag 36 36 15 Sodium Chloride 0.45% 1, 100 85 10 000 ml @ 50 mls/hr IV . Q20H AJ Rx#:[id number] metroNIDAZOLE-NS PMX 500 100 100 100 mg In Saline 1 100ml.bag @ 100 mls/hr IVPB Q8HR [facility] Rx#:[id number] Intake, IV Titration 1618.030 059.959 3009.850 Amount Dextrose 5% in Water 1, 300 000 ml @ 100 mls/hr IV . [id number] AJ with Sodium Bicarb (1 Meq/ml) 150 ml Rx#:[id number] Dextrose 5% in Water 1, 750 75 000 ml @ 75 mls/hr IV . [id number] ONE Rx#:[id number] Norepinephrine 32 mg In 6.179 Sodium Chloride 0.9% 218 ml @ 0.05 MCG/KG/MIN 2. 006 mls/hr IV .Q24H [facility] Rx#:[id number] Norepinephrine 4 mg In 587.01 625.182 176.726 Sodium Chloride 0.9% 250 ml @ 0.05 MCG/KG/MIN 17. 214 mls/hr IV .[id number] [facility] Rx#:[id number] Potassium Chloride 20 meq 100 In Water For Injection 1 100ml.bag @ 50 mls/hr IVPB Q2H [facility] Rx#: [id number] Propofol 1,000 mg In 281.020 190.271 98.945 Empty Bag 1 bag @ Titrate IV .Q0M [facility] Rx#: [id number] Sodium Chloride 0.45% 1, 2000 000 ml @ 999 mls/hr IV . Q1H1M [facility] Rx#:[id number] metroNIDAZOLE-NS PMX 500 100 mg In Saline 1 100ml.bag @ 100 mls/hr IVPB Q8HR [facility] Rx#:[id number] Tube Feeding 270 0 Other 60 Output: Gastric Drainage 250 50 Urine 575 640 450 Emesis 40 Other: Voiding Method Indwelling Catheter Indwelling Catheter Indwelling Catheter # Voids 1 ABP, PAP, CO, CI - Last Documented Arterial Blood Pressure 111/51 - Labs CBC & Chem 7: 11/21/19 05:00 11/21/19 05:00 Labs: Abnormal Lab Results - Last 24 Hours (Table) 11/20/19 11/20/19 11/21/19 Range/Units 04:45 18:19 00:22 WBC (3.8-10.6) k/uL RBC (4.30-5.90) m/uL Hgb (13.0-17.5) gm/dL Hct (39.0-53.0) % MCHC (31.0-37.0) g/dL RDW (11.5-15.5) % Plt Count (150-450) k/uL Neutrophils # (Manual) (1.3-7.7) k/uL Eosinophils # (Manual) (0-0.7) k/uL ABG pH (7.35-7.45) ABG pCO2 (35-45) mmHg ABG HCO3 (21-25) mmol/L ABG Total CO2 (19-24) mmol/L ABG O2 Saturation (94-97) % Chloride (98-107) mmol/L Carbon Dioxide (22-30) mmol/L BUN (9-20) mg/dL Creatinine (0.66-1.25) mg/dL POC Glucose (mg/dL) 123 H 107 H (75-99) mg/dL Calcium (8.4-10.2) mg/dL Ferritin 1046.0 H (22.0-322.0) ng/mL Lactate Dehydrogenase (313-618) U/L C-Reactive Protein (<10.0) mg/L Total Protein (6.3-8.2) g/dL Albumin (3.5-5.0) g/dL 11/21/19 11/21/19 11/21/19 Range/Units 05:00 05:00 05:39 WBC 18.9 H (3.8-10.6) k/uL RBC 2.97 L (4.30-5.90) m/uL Hgb 7.8 L (13.0-17.5) gm/dL Hct 25.7 L (39.0-53.0) % MCHC 30.2 L (31.0-37.0) g/dL RDW 18.0 H (11.5-15.5) % Plt Count 72 L (150-450) k/uL Neutrophils # (Manual) 14.90 H (1.3-7.7) k/uL Eosinophils # (Manual) 1.32 H (0-0.7) k/uL ABG pH 7.30 L (7.35-7.45) ABG pCO2 28 L (35-45) mmHg ABG HCO3 14 L (21-25) mmol/L ABG Total CO2 14 L (19-24) mmol/L ABG O2 Saturation 98.7 H (94-97) % Chloride 119 H (98-107) mmol/L Carbon Dioxide 15 L (22-30) mmol/L BUN 38 H (9-20) mg/dL Creatinine 2.01 H (0.66-1.25) mg/dL POC Glucose (mg/dL) (75-99) mg/dL Calcium 7.1 L (8.4-10.2) mg/dL Ferritin 1167.2 H (22.0-322.0) ng/mL Lactate Dehydrogenase 1262 H (313-618) U/L C-Reactive Protein 160.5 H (<10.0) mg/L Total Protein 4.1 L (6.3-8.2) g/dL Albumin 1.3 L (3.5-5.0) g/dL
[2019-11-21 15:04] LABS: Glucose,Whole Blood 105 mg/dL (75-99)
--- NOTE | 2019-11-21 16:31 | P.PN ---
Progress Note - Text Progress Note Date: 11/21/19 Chief Complaint: Decub ulcers History of presenting complaint: This is a pleasant [address] 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 Patient was just in the hospital from November 05 through November 11. With GI bleed. EGD was unremarkable. Patient did do bowel preparation for colonoscopy. Aspirin Plavix was resumed. Eliquis was held. Patient seen by the wound care nurse Nicole on the last admission. Outpatient follow-up recommended. -patient was seen by Dr. Zeng. He felt that the sacral decub also needs to be debrided. As the patient being sent down. Patient has occasional cough which is chronic. No shortness of breath. No fever or chills. Appetite is good. Admitted with-advancing decub's. Also came back showing C. diff colitis. Patient also became hypotensive and hypothermic. Given a warming blanket. became more hypotensive into respiratory distress. Drop in pulse ox. Patient is intubated and moved to the ICU. Today-. ICU: Remains on the ventilator. FiO2 25% and PEEP of 5. Also in atrial fibrillation. Drips include IV levo fed and propofol. Covert today patient had vomitus that appeared to be feculent. About 1 50 mL. 2 feeding which are above. Made nothing by mouth. Because of atrial fibrillation patient was given IV beta skylar Also put on IV Cardizem drip. Has a NG tube with suction. Review of systems:Patient intubated Active Medications Bisacodyl (Dulcolax) 10 mg RECTAL DAILY PRN PRN Reason: Constipation Chlorhexidine Gluconate (Peridex) 15 ml MUCOUS MEM BID [facility] Last Admin: 11/21/19 11:12 Dose: 15 ml Documented by: Cefepime HCl 2 gm/ Sodium (Chloride) 100 mls @ 200 mls/hr IVPB Q12HR [facility] Last Admin: 11/21/19 09:56 Dose: 200 mls/hr Documented by: Metronidazole 500 mg/ IV (Solution) 100 mls @ 100 mls/hr IVPB Q8HR [facility] Last Admin: 11/21/19 07:56 Dose: 100 mls/hr Documented by: Propofol 1,000 mg/ IV Solution 100 mls @ 0 mls/hr IV .Q0M [facility]; Protocol Last Admin: 11/21/19 12:46 Dose: 30 mcg/kg/min, 16.265 mls/hr Documented by: Diltiazem HCl 125 mg/ Sodium (Chloride) 125 mls @ 7.5 mls/hr IV .[id number] [facility] Last Admin: 11/21/19 09:05 Dose: 7.5 mg/hr, 7.5 mls/hr Documented by: Sodium Bicarbonate 150 ml/ (Dextrose/Water) 1,150 mls @ 100 mls/hr IV .[id number] [facility] Last Admin: 11/21/19 09:07 Dose: 100 mls/hr Documented by: Norepinephrine Bitartrate 32 (mg/ Sodium Chloride) 250 mls @ 2.006 mls/hr IV .Q24H [facility]; Protocol Last Titration: 11/21/19 11:55 Dose: 0.3 mcg/kg/min, 12.038 mls/hr Documented by: Levothyroxine Sodium (Synthroid Ivp) 12.5 mcg IV DAILY [facility] Last Admin: 11/21/19 11:12 Dose: 12.5 mcg Documented by: Magnesium Hydroxide (Milk Of Magnesia) 2,400 mg PO Q48H PRN PRN Reason: Constipation Metoprolol Tartrate (Lopressor) 5 mg IVP BID [facility] Last Admin: 11/21/19 08:34 Dose: 5 mg Documented by: Miscellaneous Information (Potassium Per Protocol) 1 each MISCELLANE DAILY PRN; Protocol PRN Reason: Per Protocol Naloxone HCl (Narcan) 0.2 mg IV Q2M PRN PRN Reason: Opioid Reversal Pantoprazole Sodium (Protonix) 40 mg IVP DAILY [facility] Last Admin: 11/21/19 08:34 Dose: 40 mg Documented by: Sodium Biphosphate/Sodium Phosphate (Fleet Adult) 133 ml RECTAL DAILY PRN PRN Reason: Constipation Vancomycin HCl (Vancomycin Oral Solution) 250 mg PO Q6HR [facility] Last Admin: 11/21/19 12:44 Dose: Not Given Documented by: On examination: VITAL SIGNS: 97.5, 120, 16, 88/48, 98% on ventilator GENERAL APPEARANCE: Laying in bed, sedated, intubated HEENT: ET tube, OG tube EYES: Pupils equal. Conjunctiva pale NECK: JVD not raised. Mass not palpable. RESPIRATORY: Respiratory effort increased. Decreased breath sounds CARDIOVASCULAR: First and second sounds normal. No edema. ABDOMEN: Soft. Liver and spleen not palpable. No tenderness. No mass palpable. Has a Beaulieu catheter. DERMATOLOGICAL: Multiple decubitus ulcers see nursing note PSYCHIATRY: Patient intubated and unable to assess EXTREMITY:. Left above-knee amputation. INVESTIGATIONS, reviewed in the clinical context: White count 18.9 hemoglobin 7.8 platelets 32 potassium 3.5 x 12 15 bun 38 creatinine 2.01 Chest [id number] Previous testing White count 11 hemoglobin 6.9 platelets 310 progression 3.9 creatinine 1 troponin I 0.123 Coronavirus PCR not detected Phones at type A type B both negative UA positive for leukoesterase WBC. Stool-positive for C. diff Urine culture-Pseudomonas aeruginosa Chest x-ray film personally reviewed by [id number] opacification of left Assessment: -Acute hypoxic respiratory failure probably from pneumonia, possible aspiration requiring intubation/ventilation.-No improvement -Suspect left-sided pneumonia, possible aspiration -Suspect ileus with feculent vomiting-patient has a OG tube to suction. -Acute C. diff colitis-slow to respond -Acute UTI from cystitis from pseudomonas aeruginosa secondary to Beaulieu catheter -Left gluteus unstageable ulcer, right gluteus also stage II lower extremity second digit ulcer -Recent hospital admission for Acute GI bleed-EGD unremarkable, patient refused colonoscopy preparation -Hypothermia Slow to respond -nonsustained V. tach -Persistent atrial fibrillation on Eliquis at home, uncontrolled -coronary artery disease status post stent placement in RCA and LAD was on Plavix -Diabetes mellitus -Hypothyroid -Chronic kidney disease stage II secondary to diabetes mellitus -Essential Hypertension, currently hypotension-new diagnosis -coronary artery disease -Benign prostatic hypertrophy -Peripheral artery disease -Left above-knee amputation - anxiety and depression, -Troponin leak due hemodynamic mismatch -Severe protein malnutrition-BMI 15.1 -Metabolic acidosis -Patient's cousin Joel-obtained legal guardianship Plan: Patient now doing too good. Remains on IV cefepime, IV Cardizem drip, IV bicarbonate drip, IV Flagyl, propofol,. Remains critically ill. Prognosis does not look good. Follow with multiple consultants
[2019-11-21] MEDS: PIPERACILLIN-TAZOBACTAM 3.375 GM in SODIUM CHLORIDE 0.9% 100 ML IVPB SCH (18:32)
[2019-11-21] MEDS: POTASSIUM CHLORIDE 10 MEQ in WATER FOR INJECTION 1 100ML.BAG IVPB SCH ×2 (18:32→20:10)
--- NOTE | 2019-11-21 18:55 | PN ---
PROGRESS NOTE DATE OF SERVICE: 11/21/2019 REASON FOR FOLLOWUP: 1. Infected left gluteal pressure ulcer. 2. Aspiration pneumonia. 3. UTI and C difficile colitis. INTERVAL HISTORY: The patient is currently afebrile. secretions coming out from his NG and with an episode of vomiting. The patient's FiO2 is currently 25% and low-dose pressor support. No other changes reported by nursing staff. PHYSICAL EXAMINATION: Blood pressure 104/48 with a pulse of 87, temperature of 98. He is 99% on 25% FiO2. General description is a middle-aged male lying in bed in no distress. RESPIRATORY SYSTEM: Unlabored breathing. Coarse breath sounds bilaterally. HEART: S1, S2. Regular rate and rhythm. ABDOMEN: Soft. No tenderness. LABS: Hemoglobin is 7.8, white count of 18.9. BUN of 38, creatinine is 2.01. DIAGNOSTIC IMPRESSION AND PLAN: Patient with aspiration pneumonia now with concern for recurrent aspiration in this patient who did have infected pressure ulcer with worsening of his white count. We will switch his antibiotic therapy to Zosyn. Continued Flagyl should cover his C difficile as the patient with ileus and vomiting and unable to tolerate his vancomycin. Overall prognosis remains to be guarded. Continue local wound care to the sacral wound as ordered. Continue supportive care. MMODL / IJN: [id number] /
[2019-11-21 23:47] LABS: Glucose,Whole Blood 107 mg/dL (75-99)
[2019-11-22] MEDS: PIPERACILLIN-TAZOBACTAM 3.375 GM in SODIUM CHLORIDE 0.9% 100 ML IVPB SCH ×2 (00:03→08:14)
[2019-11-22] MEDS: metroNIDAZOLE-NS PMX 500 MG in SALINE 1 100ML.BAG IVPB SCH ×2 (00:03→08:14)
[2019-11-22] MEDS: PROPOFOL 1,000 MG in EMPTY BAG 1 BAG IV SCH ×2 (02:16→07:12)
[2019-11-22] MEDS: VANCOMYCIN ORAL SOLUTION 250 MG/5 ML BOTTLE PO SCH (02:56)
[2019-11-22] MEDS: DILTIAZEM 125 MG in SODIUM CHLORIDE 0.9% 100 ML IV SCH (03:48)
[2019-11-22] MEDS: NOREPINEPHRINE 32 MG in SODIUM CHLORIDE 0.9% 218 ML IV SCH (03:49)
[2019-11-22 05:16] LABS: Albumin 1.3 g/dL (3.5-5.0); Total Bilirubin 0.8 mg/dL (0.2-1.3)
[2019-11-22 05:27] LABS: Anisocytosis Slight; HCT 25.9 % (39.0-53.0); HGB 7.7 gm/dL (13.0-17.5); Hypochromasia Marked; MCHC 29.9 g/dL (31.0-37.0); MCV 86.9 fL (80.0-100.0); Mean Platelet Volume 12.4; Poikilocytosis Moderate; RBC 2.97 m/uL (4.30-5.90); RDW 17.8 % (11.5-15.5); WBC 18.2 k/uL (3.8-10.6)
[2019-11-22 05:44] LABS: ABG Base Excess -9.7 mmol/L; ABG HCO3 16 mmol/L (21-25); ABG Oxygen Saturation 95.7 % (94-97); ABG PCO2 28 mmHg (35-45); ABG PH 7.36 (7.35-7.45); ABG PO2 77 mmHg (83-108); ABG TCO2 17 mmol/L (19-24); Allen Test Performed? Yes
[2019-11-22 05:46] LABS: Platelet Count 42 k/uL (150-450)
[2019-11-22 06:00] LABS: Glucose,Whole Blood 111 mg/dL (75-99)
[2019-11-22 06:24] LABS: Band Neutrophils % 14 %; Eosinophils # (M) 0.91 k/uL (0-0.7); Metamyelocytes # (M) 0.18 k/uL (0); Metamyelocytes % 1 %; Monocytes # (M) 0.18 k/uL (0-1.0); Neutrophils % (M) 70 %; Nucleated Red Blood Cells 0 /100 WBC (0-0); Polychromasia Present; Total Cells Counted 200
[2019-11-22] MEDS: METOPROLOL TARTRATE 5 MG/5 ML VIAL IVP SCH (07:56)
--- NOTE | 2019-11-22 08:12 | XR ---
EXAMINATION TYPE: XR chest 1V portable DATE OF EXAM: 11/22/2019 COMPARISON: Prior chest x-ray dated 11/21/2019 HISTORY: Intubated, abnormal chest x-ray TECHNIQUE: Single frontal view of the chest is obtained. FINDINGS: Patient is rotated. Endotracheal tube and NG tube are overlying appropriate positions, pat ient is post median sternotomy. Distal tip of the NG tube is not in included on the exam. Patient jeferson ws cardiac valve replacement, atrial appendage clipping placement. Bibasilar increased density is not ed, the hemidiaphragms are obscured. No evident pneumothorax. There are overlying cardiac leads. IMPRESSION: Findings are similar, consider basilar effusions and associated atelectasis, edema and A RDS, pneumonia not excluded. Rotated exam.
[2019-11-22] MEDS: LEVOTHYROXINE IVP 100 MCG/5 ML VIAL IV SCH (08:13)
[2019-11-22] MEDS: PANTOPRAZOLE 40 MG/10 ML VIAL IVP SCH (08:13)
[2019-11-22] MEDS: DEXTROSE 5% IN WATER 1,000 ML with SODIUM BICARB (1 MEQ/ML) 150 ML IV SCH (08:13)
[2019-11-22] MEDS: CHLORHEXIDINE GLUCONATE 15 ML CUP MUCOUS MEM SCH (08:14)
[2019-11-22 11:04] VITALS: BP 117/62
[2019-11-22 12:35] LABS: Glucose,Whole Blood 146 mg/dL (75-99)
[2019-11-22 12:46] VITALS: TEMP 98
[2019-11-22] MEDS: ALLOPURINOL 100 MG TAB PO SCH (12:52)
[2019-11-22] MEDS: ASPIRIN 81 MG PO SCH (12:52)
[2019-11-22] MEDS: FLUoxetine HCL 20 MG CAP PO SCH (12:53)
[2019-11-22] MEDS: CLOPIDOGREL 75 MG TAB PO SCH (12:53)
[2019-11-22] MEDS: MAGNESIUM OXIDE 400 MG TAB PO SCH (12:53)
[2019-11-22 13:06] VITALS: PULSE 113; RESP 18
--- NOTE | 2019-11-22 13:36 | PN ---
PROGRESS NOTE PULMONARY/CRITICAL CARE PROGRESS NOTE: DATE OF SERVICE: November 22, 2019 Critical care time is greater than 30 minutes. This is a 64-year-old black male who was admitted back on November 12. He originally came in from the halfway because of extensive ulcers and skin infections. The patient unfortunately developed acute respiratory failure with hypoxemia and required intubation and mechanical ventilation. He initially tested negative for COVID-19 infection and was retested recently and also had a negative test on the . I felt fairly confident that he did not have COVID-19 infection. We are blaming his respiratory failure on a number of things including cellulitis with sepsis and Pseudomonas UTI with sepsis. Anyway, the patient is currently still on the mechanical ventilator. He has not done well over the last 24 hours and I did have a conversation with his medical decision maker who did make the patient a NO CODE. He is on the volume assist-control modality of ventilation with a rate of 16, tidal volume 450, FiO2 25%, PEEP of 5. Blood gases show pO2 of 77, pCO2 28, pH 7.36. His tube feeds are on hold because there is feculent material emanating from his NG tube and his mouth. His urine cultures do show evidence of Pseudomonas. He is on Zosyn and Flagyl. In addition, the patient did have a positive result for C difficile. Currently his IVs include norepinephrine, which has been increased to 24 mcg/minute, propofol at 30 mcg/kg per minute, D5W with 3 amps of bicarbonate at 75 mL an hour, Cardizem at 7.5 mg an hour. He is currently in atrial fibrillation with a rate of about 107 to 110 beats per minute. He was having some abdominal issues with abdominal distention. Tube feeds were held as I mentioned above. He was seen by Dr. Nation who thought the patient might just have an ileus. His plain film of his abdomen was nonspecific. Anyway, I did have a long conversation with Amalia Maradiaga, and he decided to make the patient a DNR. He is considering possible hospice at this time. PHYSICAL EXAMINATION: VITAL SIGNS: Current vital signs are reviewed. His temperature is 94.4, heart rate 124 and irregular, respiratory rate 24, blood pressure is 117/62 with a mean of 80, saturations are 98%. GENERAL: Currently sedated. There is an orally placed endotracheal tube and NG tube. HEENT: Examination is grossly unremarkable. NECK: Supple. Full range of motion. No adenopathy, thyromegaly or neck vein distention. CARDIOVASCULAR: Examination reveals tachycardia. It is irregular. Heart rate about 124. He is in atrial fibrillation. LUNGS: Reveal coarse bilateral rhonchi. Breath sounds equal. ABDOMEN: Soft. No bowel sounds. EXTREMITIES: Reveal mild edema. He has got a left [id number] amputation. SKIN: Without rash. NEUROLOGIC: Examination is difficult to assess given his current level of sedation. Microbiologic study show Pseudomonas aeruginosa in the urine and Tamra albicans and Tamra glabrata in the sputum. LAB DATA: Lab data includes a white count 8.2, hemoglobin 7.7, hematocrit 25.9, platelet count is 42,000. Blood gases have been mentioned already; pO2 is 77, pCO2 is 28, pH 7.36. Blood gases are consistent with a mixed acid-base disturbance including a respiratory alkalosis and metabolic acidosis. Sodium 136, potassium 4, chloride 115, CO2 is 17. Anion gap is 4. BUN and creatinine were 36 and 2.09, that compares to a BUN and creatinine were 38 and 2.01 yesterday. His renal function has been declining. Albumin is 1.3. TSH is 1.820. The rest of the labs look good. Chest x-ray from this morning shows bibasilar increased densities bilaterally. The hemidiaphragms are both obscured. There is no pneumothorax. Tubes and lines look okay. MEDICATIONS: Medications are reviewed. He is on Dulcolax, Cardizem, chlorhexidine, D5W with bicarb, Synthroid IV, magnesium, metoprolol, Flagyl, Fleet's enema, Narcan norepinephrine, Protonix, Zosyn, potassium replacement, and propofol. ASSESSMENT: 1. Acute hypoxemic respiratory failure with intubation early on the morning of November 17, likely related to underlying sepsis. Sources include Pseudomonas aeruginosa urinary tract infection/urosepsis as well as Clostridium difficile colitis. The patient also initially had left-sided pneumonia with significant opacification of the left lung. 2. History of Clostridium difficile colitis, currently being treated. 3. COVID-19 nasal swab rapid test negative x2. 4. History of chronic atrial fibrillation with rapid ventricular response. 5. Coronary artery disease. 6. Chronic obstructive pulmonary disease. 7. Diabetes mellitus. 8. Gastroesophageal reflux disease. 9. Hyperlipidemia. 10.Benign essential hypertension. 11.History of myocardial infarction. 12.Hypothyroidism. 13.Peripheral artery disease. 14.Diverticular disease. 15.Chronic kidney disease. 16.Anxiety/depression. 17.Past history of alcohol abuse. 18.History of mitral valve replacement. 19.Ascites. 20.Status post cardiac catheterization with stent. 21.Status post left AKA. 22.Hyperchloremic non-anion gap metabolic acidosis. PLAN: His overall prognosis remains poor. I did have a conversation with the medical decision maker. He did make the patient a DNR. He is considering hospice. His belly is soft. He does still have feculent material emanating from his NG tube and mouth. He was seen by Surgery. He thought the patient only had an ileus. He was scheduled for some debridement by Surgery today. His overall prognosis remains poor. We will continue on the Cardizem for his atrial fibrillation. Additional recommendations and suggestions are forthcoming. His likelihood of surviving this illness I believe is significantly low that hospice consideration will be appropriate. CRITICAL CARE TIME: Greater than 30 minutes. MMYUNL / ABRAHAMN: [id number] /
[2019-11-22 13:49] VITALS: BMI 26.7
--- NOTE | 2019-11-22 16:21 | P.DS ---
Providers Date of admission: 11/13/19 16:27 Expected date of discharge: 11/22/19 Attending physician: Federico Alston Consults: 11/13/19 17:23 Consult Physician Stat Consulting Provider: Triston Nation Consult Reason/Comments: multiple pressure ulcers Do you want consulting provider notified?: Yes 11/13/19 20:58 Consult Physician Routine Consulting Provider: Ace Rico Consult Reason/Comments: Multiple decub ulcers Do you want consulting provider notified?: Yes 11/18/19 07:40 Consult Physician Urgent Consulting Provider: Tristin Jones Consult Reason/Comments: yes Do you want consulting provider notified?: Yes Primary care physician: [facility] Course: Chief Complaint: Decub ulcers History of presenting complaint: This is a pleasant [address] 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 Patient was just in the hospital from November 05 through November 11. With GI bleed. EGD was unremarkable. Patient did do bowel preparation for colonoscopy. Aspirin Plavix was resumed. Eliquis was held. Patient seen by the wound care nurse Nicole on the last admission. Outpatient follow-up recommended. -patient was seen by Dr. Zeng. He felt that the sacral decub also needs to be debrided. As the patient being sent down. Patient has occasional cough which is chronic. No shortness of breath. No fever or chills. Appetite is good. Admitted with-advancing decub's. Also came back showing C. diff colitis. Patient also became hypotensive and hypothermic. Given a warming blanket. became more hypotensive into respiratory distress. Drop in pulse ox. Patient is intubated and moved to the ICU. Patient was on IV levo fed and propofol. Also had feculent vomiting. Feeding tube was held. Patient's cousin Rob obtained legal guardianship. Today-. ICU: Dr. Jones earlier spoke to patient's cousin and medical decision maker. He decided procedure terminal weaning and hospice care. I spoke to the hospice nurse. The patient nurse. Consultations: Dr. Nation from general surgery Dr. Jones and partners from critical care Dr. Rico from [place] On examination: VITAL SIGNS: 94.4-96, 22, 111/51, 97% on the ventilator GENERAL APPEARANCE: Laying in bed, sedated, intubated HEENT: ET tube, OG tube EYES: Pupils equal. Conjunctiva pale NECK: JVD not raised. Mass not palpable. RESPIRATORY: Respiratory effort increased. Decreased breath sounds CARDIOVASCULAR: First and second sounds normal. No edema. ABDOMEN: Soft. Liver and spleen not palpable. No tenderness. No mass palpable. Has a Beaulieu catheter. DERMATOLOGICAL: Multiple decubitus ulcers see nursing note PSYCHIATRY: Patient intubated and unable to assess EXTREMITY:. Left above-knee amputation. INVESTIGATIONS, reviewed in the clinical context: White count 18.2 hemoglobin 7.7 platelets 42 bun 36 creatinine 2.0 Previous testing White count 11 hemoglobin 6.9 platelets 310 progression 3.9 creatinine 1 troponin I 0.123 Coronavirus PCR not detected Phones at type A type B both negative UA positive for leukoesterase WBC. Stool-positive for C. diff Urine culture-Pseudomonas aeruginosa Chest x-ray film personally reviewed by [id number] opacification of left Assessment: -Acute hypoxic respiratory failure probably from pneumonia, possible aspiration requiring intubation/ventilation.-No improvement -Suspect left-sided pneumonia, possible aspiration -Suspect ileus with feculent vomiting-patient has a OG tube to suction. -Acute C. diff colitis-slow to respond -Acute UTI from cystitis from pseudomonas aeruginosa secondary to Beaulieu catheter -Left gluteus unstageable ulcer, right gluteus also stage II lower extremity second digit ulcer -Recent hospital admission for Acute GI bleed-EGD unremarkable, patient refused colonoscopy preparation -Hypothermia Slow to respond -nonsustained V. tach -Persistent atrial fibrillation on Eliquis at home, uncontrolled -coronary artery disease status post stent placement in RCA and LAD was on Plavix -Diabetes mellitus -Hypothyroid -Chronic kidney disease stage II secondary to diabetes mellitus -Essential Hypertension, currently hypotension-new diagnosis -coronary artery disease -Benign prostatic hypertrophy -Peripheral artery disease -Left above-knee amputation - anxiety and depression, -Troponin leak due hemodynamic mismatch -Severe protein malnutrition-BMI 15.1 -Metabolic acidosis -Patient's cousin Joel-obtained legal guardianship Disposition: Inpatient hospice/GI P Patient Condition at Discharge: Poor Plan - Discharge Summary Discharge Rx Participant: No New Discharge Prescriptions: No Action FLUoxetine HCL [PROzac] 20 mg PO DAILY@0800 Levothyroxine Sodium [Synthroid] 25 mcg PO DAILY Acetaminophen Tab [Tylenol] 650 mg PO Q6HR PRN tab PRN Reason: Fever And/ Or Pain Lisinopril [Zestril] 2.5 mg PO DAILY@0800 Allopurinol [Zyloprim] 100 mg PO DAILY@0800 Clopidogrel [Plavix] 75 mg PO DAILY@0800 Metoprolol Tartrate [Lopressor] 50 mg PO BID@0800,1700 Atorvastatin [Lipitor] 40 mg PO DAILY tab Nitroglycerin Sl Tabs [Nitrostat] 0.4 mg SUBLINGUAL Q5M PRN tab PRN Reason: Chest Pain Ipratropium-Albuterol Nebulize [Duoneb 0.5 mg-3 mg/3 ml Soln] 3 ml INHALATION RT-QID PRN #0 ampul.neb PRN Reason: Shortness Of Breath Or Wheezing HYDROcodone/APAP 10-325MG [[place] 10-325] 1 tab PO QID PRN #10 tab PRN Reason: Pain Na Phos,M-B/Na Phos,Di-Ba [Fleet Adult] 133 ml RECTAL DAILY PRN PRN Reason: Constipation Bisacodyl [Dulcolax] 10 mg RECTAL DAILY PRN PRN Reason: Constipation Magnesium Hydroxide [Milk of Magnesia Concentrate] 72,000 mg PO Q48H PRN PRN Reason: Constipation Ferrous Sulfate [Iron (65 MG Elemental)] 325 mg PO AC-TID Magnesium Oxide [Mag-Ox] 400 mg PO BID@0800,1700 Tamsulosin [Flomax] 0.4 mg PO PC-BRKFST@0800 QUEtiapine [SEROquel] 25 mg PO HS@2100 Omeprazole [PriLOSEC] 20 mg PO DAILY Furosemide [Lasix] 40 mg PO DAILY@0800 Cholestyramine (with Sugar) [Questran Packet] 4 gm PO PC-TID PRN PRN Reason: Diarrhea Aspirin 81 mg PO DAILY@0800 Discharge Medication List FLUoxetine HCL [PROzac] 20 mg PO DAILY@0800 03/26/15 [History] Levothyroxine Sodium [Synthroid] 25 mcg PO DAILY 03/26/15 [History] Acetaminophen Tab [Tylenol] 650 mg PO Q6HR PRN tab 10/04/17 [Rx] Allopurinol [Zyloprim] 100 mg PO DAILY@0800 10/10/19 [History] Clopidogrel [Plavix] 75 mg PO DAILY@0800 10/10/19 [History] Lisinopril [Zestril] 2.5 mg PO DAILY@0800 10/10/19 [History] Metoprolol Tartrate [Lopressor] 50 mg PO BID@0800,1700 10/10/19 [History] Atorvastatin [Lipitor] 40 mg PO DAILY tab 10/21/19 [Rx] Ipratropium-Albuterol Nebulize [Duoneb 0.5 mg-3 mg/3 ml Soln] 3 ml INHALATION RT-QID PRN #0 ampul.neb 10/21/19 [Rx] Nitroglycerin Sl Tabs [Nitrostat] 0.4 mg SUBLINGUAL Q5M PRN tab 10/21/19 [Rx] HYDROcodone/APAP 10-325MG [[place] 10-325] 1 tab PO QID PRN #10 tab 11/12/19 [Rx] Aspirin 81 mg PO DAILY@0800 11/13/19 [History] Bisacodyl [Dulcolax] 10 mg RECTAL DAILY PRN 11/13/19 [History] Cholestyramine (with Sugar) [Questran Packet] 4 gm PO PC-TID PRN 11/13/19 [History] Ferrous Sulfate [Iron (65 MG Elemental)] 325 mg PO AC-TID 11/13/19 [History] Furosemide [Lasix] 40 mg PO DAILY@0800 11/13/19 [History] Magnesium Hydroxide [Milk of Magnesia Concentrate] 72,000 mg PO Q48H PRN 11/13/19 [History] Magnesium Oxide [Mag-Ox] 400 mg PO BID@0800,1700 11/13/19 [History] Na Phos,M-B/Na Phos,Di-Ba [Fleet Adult] 133 ml RECTAL DAILY PRN 11/13/19 [History] Omeprazole [PriLOSEC] 20 mg PO DAILY 11/13/19 [History] QUEtiapine [SEROquel] 25 mg PO HS@2100 11/13/19 [History] Tamsulosin [Flomax] 0.4 mg PO PC-BRKFST@0800 11/13/19 [History] Follow up Appointment(s)/Referral(s): Ignacio Gutierrez DO [Primary Care Provider] - 1-2 days Discharge Disposition: DISCH TO HOSPICE MED FACILTY
--- NOTE | 2019-11-22 17:27 | DS ---
DISCHARGE SUMMARY DATE OF ADMISSION: 11/22/2019 DATE PATIENT : 11/22/2019. CAUSE OF : Pneumonia. HOSPITAL COURSE: This patient was earlier admitted to [facility] hospice service after rapidly deteriorating with multiple medical problems. Inpatient hospice was resumed with comfort measures. Patient was terminally weaned. The patient succumbed to underlying condition. Cause of pneumonia. MMODL / IJN: [id number] /
== END 2019-11-22 13:35 | disposition hospice, inpatient (51) | DRG 698 ==
LOC: EC 13:56 → 3SCARD 16:27 → EEVIPCON 16:27 → 2SICU 11-18 04:13
PROVIDERS: ADMIT Hospitalist; ATTEND Hospitalist
PROC: 5A1955Z Respiratory Ventilation, Greater than 96 Consecutive Hours (ICD-10-PCS; principal; 2019-11-18)
PROC: 4A133J1 Monitoring of Arterial Pulse, Peripheral, Percutaneous Approach (ICD-10-PCS; principal; 2019-11-18)
PROC: 04HK33Z Insertion of Infusion Device into Right Femoral Artery, Percutaneous Approach (ICD-10-PCS; principal; 2019-11-18)
PROC: 4A133B1 Monitoring of Arterial Pressure, Peripheral, Percutaneous Approach (ICD-10-PCS; principal; 2019-11-18)
PROC: 0BH18EZ Insertion of Endotracheal Airway into Trachea, Via Natural or Artificial Opening Endoscopic (ICD-10-PCS; principal; 2019-11-18)
PROC: 03HY32Z Insertion of Monitoring Device into Upper Artery, Percutaneous Approach (ICD-10-PCS; principal; 2019-11-18)
DX: T83.511A Infection and inflammatory reaction due to indwelling urethral catheter, initial encounter (principal); L89.323 Pressure ulcer of left buttock, stage 3; A41.9 Sepsis, unspecified organism; E43 Unspecified severe protein-calorie malnutrition; I21.A1 Myocardial infarction type 2; J69.0 Pneumonitis due to inhalation of food and vomit; J96.01 Acute respiratory failure with hypoxia; A04.72 Enterocolitis due to Clostridium difficile, not specified as recurrent; E87.0 Hyperosmolality and hypernatremia; E87.2 Acidosis; I47.2 Ventricular tachycardia; I48.19 Other persistent atrial fibrillation; J90 Pleural effusion, not elsewhere classified; K56.7 Ileus, unspecified; R18.8 Other ascites; Z68.1 Body mass index [BMI] 19.9 or less, adult; Y73.8 Miscellaneous gastroenterology and urology devices associated with adverse incidents, not elsewhere classified; N30.90 Cystitis, unspecified without hematuria; B96.5 Pseudomonas (aeruginosa) (mallei) (pseudomallei) as the cause of diseases classified elsewhere; E03.9 Hypothyroidism, unspecified; E11.22 Type 2 diabetes mellitus with diabetic chronic kidney disease; Z20.828 Contact with and (suspected) exposure to other viral communicable diseases; Z51.5 Encounter for palliative care; E11.51 Type 2 diabetes mellitus with diabetic peripheral angiopathy without gangrene; E78.5 Hyperlipidemia, unspecified; E87.6 Hypokalemia; E87.8 Other disorders of electrolyte and fluid balance, not elsewhere classified; F12.90 Cannabis use, unspecified, uncomplicated; F32.9 Major depressive disorder, single episode, unspecified; F41.9 Anxiety disorder, unspecified; I12.9 Hypertensive chronic kidney disease with stage 1 through stage 4 chronic kidney disease, or unspecified chronic kidney disease; I25.10 Atherosclerotic heart disease of native coronary artery without angina pectoris; I25.2 Old myocardial infarction; J44.9 Chronic obstructive pulmonary disease, unspecified; K21.9 Gastro-esophageal reflux disease without esophagitis; K57.90 Diverticulosis of intestine, part unspecified, without perforation or abscess without bleeding; N18.3 Chronic kidney disease, stage 3 (moderate); N40.0 Benign prostatic hyperplasia without lower urinary tract symptoms; Z66 Do not resuscitate; Z79.01 Long term (current) use of anticoagulants; Z79.02 Long term (current) use of antithrombotics/antiplatelets; Z79.82 Long term (current) use of aspirin; Z79.890 Hormone replacement therapy; Z79.899 Other long term (current) drug therapy; Z83.3 Family history of diabetes mellitus; Z87.891 Personal history of nicotine dependence; Z89.612 Acquired absence of left leg above knee; Z95.2 Presence of prosthetic heart valve; Z95.5 Presence of coronary angioplasty implant and graft; Z82.49 Family history of ischemic heart disease and other diseases of the circulatory system; L89.150 Pressure ulcer of sacral region, unstageable; I95.9 Hypotension, unspecified
CPT/HCPCS: 36415; 71045; 74018; 76604; 80048; 80053; 81001; 82550; 82565; 82728; 82805; 83605; 83615; 83735; 84132; 84443; 84484; 85025; 85027; 85379; 85610; 85730; 86140; 86850; 86900; 86901; 86920; 87040; 87070; 87077; 87086; 87186; 87205; 87324; 87502; 87635; 93005; 94002; 94003; 96361; 96365; 96367; 96374; 99285

== ENCOUNTER 2019-11-22 13:09 | Inpatient (IN) | payer MEDICAID ==
[2019-11-22] MEDS ORDERED: ATROPINE OPHTH SOLN 1% 5ML BTL SUBLINGUAL PRN (13:27)
[2019-11-22] MEDS ORDERED: ONDANSETRON 4 MG/2 ML VIAL IVP PRN (13:27)
[2019-11-22] MEDS ORDERED: MORPHINE SULFATE 4 MG/ML SYRINGE IV PRN (13:27)
[2019-11-22] MEDS ORDERED: LORazepam 2 MG/ML INJ IV PRN (13:27)
[2019-11-22] MEDS ORDERED: ACETAMINOPHEN SUPPOSITORY 650 MG SUPP RECTAL PRN (13:27)
[2019-11-22] MEDS ORDERED: MORPHINE SULFATE (100 MG/2 ML) 100 MG in SODIUM CHLORIDE 0.9% 100 ML IV SCH (13:30)
[2019-11-22 15:04] VITALS: PULSE 133; RESP 9
== END 2019-11-22 16:05 | disposition expired | DRG 951 ==
LOC: 2SICU 13:38
PROVIDERS: ADMIT Hospitalist; ATTEND Hospitalist
DX: Z51.5 Encounter for palliative care (principal); J18.9 Pneumonia, unspecified organism; J44.0 Chronic obstructive pulmonary disease with (acute) lower respiratory infection; I48.19 Other persistent atrial fibrillation; K21.9 Gastro-esophageal reflux disease without esophagitis; E78.5 Hyperlipidemia, unspecified; E11.51 Type 2 diabetes mellitus with diabetic peripheral angiopathy without gangrene; E11.22 Type 2 diabetes mellitus with diabetic chronic kidney disease; L89.320 Pressure ulcer of left buttock, unstageable; L89.310 Pressure ulcer of right buttock, unstageable; L89.892 Pressure ulcer of other site, stage 2; N18.3 Chronic kidney disease, stage 3 (moderate); I12.9 Hypertensive chronic kidney disease with stage 1 through stage 4 chronic kidney disease, or unspecified chronic kidney disease; F41.9 Anxiety disorder, unspecified; F32.9 Major depressive disorder, single episode, unspecified; N40.0 Benign prostatic hyperplasia without lower urinary tract symptoms; I25.10 Atherosclerotic heart disease of native coronary artery without angina pectoris; Z87.891 Personal history of nicotine dependence; Z87.440 Personal history of urinary (tract) infections; Z89.612 Acquired absence of left leg above knee; I25.2 Old myocardial infarction; Z95.5 Presence of coronary angioplasty implant and graft; Z86.19 Personal history of other infectious and parasitic diseases; Z82.49 Family history of ischemic heart disease and other diseases of the circulatory system; Z83.3 Family history of diabetes mellitus; Z79.01 Long term (current) use of anticoagulants; Z79.1 Long term (current) use of non-steroidal anti-inflammatories (NSAID); Z79.82 Long term (current) use of aspirin; Z79.891 Long term (current) use of opiate analgesic; Z79.899 Other long term (current) drug therapy